=== PATIENT | male | born 1940 | race Caucasian/White ===

== ENCOUNTER 2020-08-17 07:36 | Outpatient (REF) | payer MEDICARE, SELFPAY ==
[2020-08-17 07:44] VITALS: BP 191/79; PULSE 68; RESP 18; TEMP 36.4; O2SAT 93
[2020-08-17 07:45] VITALS: BMI 28.3
--- NOTE | 2020-08-17 08:24 | MHC.SHP ---
Pre-Procedural Eval Section A The patient is an INPATIENT: No Changes since office visit: No Cold of Flu in the past 2 weeks, No New Medical Problems, No Changes in Medication and No Patient answered all questions The History & Physical has been completed within 30 days and I have reviewed it.: Yes Section B Chief Complaint: prostate ca Allergies: Allergies Allergy/AdvReac Type Severity Reaction Status Date / Time pneumococcal vaccine Allergy Unknown RASH Unverified 06/23/20 15:05 [PNEUMOCOCCAL VACCINE] pneumonia injection Allergy Unknown redness on Uncoded 03/24/20 00:00 the skin pneumonia shot Allergy Unknown Uncoded 11/03/19 00:00 Terbinafine Allergy Unknown Uncoded 11/03/19 00:00 Plan Patient has been examined and remains a candidate for the planned procedure
--- NOTE | 2020-08-17 08:25 | W.PM.OPN ---
Operative Note Operative Note Narrative: PreOperative Diagnosis: Prostate Cancer Post Operative Diagnosis: Prostate Cancer Procedure: TRUS guided nerve block TRUS guided Gold see marker placement Surgeon: Dr Catarino Gottlieb Anesthesia: Local Indications for procedure: Prostate cancer Procedure: After informed consent patient placed left lateral down position Abx given and confirmed Lubrication placed Probe placed 10 cc lidocaine split base and apex placed 3 Gold seed placed 2 on right 1 on left procedure tolerated well No pathology
[2020-08-17 08:31] VITALS: BP 151/61; PULSE 64; RESP 18; O2SAT 96
--- NOTE | 2020-08-17 08:37 | PC.NURSE ---
[employer]. [id number]. ref [id number]. exp date 2023-10-06. gold seeds.
== END 2020-08-17 07:37 | disposition home or self-care (01) ==
LOC: HO.MS 07:36
PROVIDERS: PCP Internal Medicine; Visit Provider Urology
PROC: (CPT 55876; principal; 2020-08-17 08:00)
DX: C61 Malignant neoplasm of prostate (principal); Z88.7 Allergy status to serum and vaccine; Z88.8 Allergy status to other drugs, medicaments and biological substances
CPT/HCPCS: 55876; 76942; A4648

== ENCOUNTER 2020-08-22 08:26 | Outpatient (REF) | payer MEDICARE, SELFPAY ==
[2020-08-22 11:52] LABS: Alanine Aminotransferase 15 U/L (0-40); Albumin Level 3.9 g/dL (3.5-5.0); Alkaline Phosphatase 79 U/L (39-117); Anion Gap 13 (12-20); Aspartate Amino Transferase 20 U/L (5-37); Bilirubin Total 0.7 mg/dL (0.0-1.0); Blood Urea Nitrogen 49 mg/dL (9-16); Calcium 8.9 mg/dL (8.4-10.2); Carbon Dioxide 32 mmol/L (22-29); Chloride 97 mmol/L (96-108); Estimated Glomerular Filt Rate 39; Glucose Fasting 85 mg/dL (60-99); Magnesium 2.2 mg/dL (1.6-2.6); Potassium 4.7 mmol/l (3.3-5.1); Sodium 137 mmol/L (135-145); Total Protein 6.5 g/dL (6.5-8.0)
== END 2020-08-22 08:27 | disposition home or self-care (01) ==
LOC: HO.HMGCLDS 08:26
PROVIDERS: PCP Internal Medicine; Visit Provider Internal Medicine
DX: R25.2 Cramp and spasm (principal)
CPT/HCPCS: 80053; 83735

== ENCOUNTER → 2020-09-07 10:47 | Outpatient (BNVA) | payer MEDICARE, SELFPAY | PROVIDERS: PCP Internal Medicine; Referring Provider Internal Medicine; Visit Provider Internal Medicine Pulmonary Disease | DX: J44.9 Chronic obstructive pulmonary disease, unspecified (principal); R91.8 Other nonspecific abnormal finding of lung field | CPT/HCPCS: Q3014 ==

== ENCOUNTER 2020-10-10 10:54 | Outpatient (REF) | payer MEDICARE, SELFPAY ==
[2020-10-10 15:02] LABS: Prostate Specific Antigen 0.25 ng/mL (<0.05-4.0)
== END 2020-10-10 10:55 | disposition home or self-care (01) ==
LOC: HO.HMGCLDS 10:54
PROVIDERS: Internal Medicine; PCP Internal Medicine; Visit Provider Urology
DX: Z20.822 Contact with and (suspected) exposure to COVID-19 (principal); C61 Malignant neoplasm of prostate
CPT/HCPCS: 36415; 84153; C9803; U0003

== ENCOUNTER → 2020-10-21 15:33 | Outpatient (BNVA) | payer MEDICARE, SELFPAY | PROVIDERS: PCP Internal Medicine; Visit Provider Urology | DX: C61 Malignant neoplasm of prostate (principal) | CPT/HCPCS: 96402; J9217 ==

== ENCOUNTER 2020-10-25 09:46 | Outpatient (REF) | payer MEDICARE, SELFPAY ==
--- NOTE | 2020-10-25 09:50 | XR_ITS ---
EXAMINATION: XR KNEE, LEFT CLINICAL INFORMATION: Pain COMPARISON: None TECHNIQUE: Four views of the left knee. FINDINGS: Bone alignment is normal. No fracture or dislocation is seen. The joint spaces are normal. There is no joint effusion. There are osteophytes at the quadriceps tendon insertion, patellar tendon origin and patellar tendon insertion. There is evidence of atherosclerotic disease. XR/XR knee LT 4V IMPRESSION: Mild degenerative changes with patellar and quadriceps tendon and osteophytes and atherosclerotic disease.
== END 2020-10-25 09:47 | disposition home or self-care (01) ==
LOC: HO.HMGCX 09:46
PROVIDERS: PCP Internal Medicine; Visit Provider Nurse Practitioner Family
DX: M25.562 Pain in left knee (principal); M71.9 Bursopathy, unspecified
CPT/HCPCS: 73564

== ENCOUNTER → 2020-11-17 14:29 | Outpatient (BNVA) | payer MEDICARE, SELFPAY | PROVIDERS: PCP Internal Medicine; Visit Provider Urology | DX: R30.9 Painful micturition, unspecified (principal) | CPT/HCPCS: 51798; 81002; 99212 ==

== ENCOUNTER 2020-12-13 10:41 | Outpatient (REF) | payer MEDICARE, SELFPAY ==
--- NOTE | ~2020-12-13 | CT_ITS ---
EXAMINATION: CT CHEST WITHOUT CONTRAST CLINICAL INFORMATION: Previous pulmonary nodule and other abnormal pulmonary findings, follow-up. COMPARISON: Chest CT scan dated 06/15/2020 and 01/26/2019. TECHNIQUE: Multidetector volumetric CT imaging of the chest was done. Axial MIP volume rendering provided. Sagittal and coronal reformatted images were obtained. This CT examination was performed using dose optimization techniques as appropriate, variously including the following: *Automated exposure control *Adjustment of mA and/or kV according to patient size (this includes techniques or standardized protocols for targeted exams where dose is matched to indication/reason for exam; i.e. extremities or head) *Use of iterative reconstruction technique DLP: 175 mGy-cm FINDINGS: LUNGS/PLEURA/AIRWAYS: Mild upper lobe predominant centrilobular and paraseptal emphysema is again seen without significant change. Several scattered nodules are again seen without significant change. A employment program representative nodule laterally in the right upper lobe measures 0.4 cm (image 156, series 5). A nodule anteriorly in the left upper lobe measures 0.4 cm (image 197, series 5). A groundglass nodule anteriorly in the right upper lobe is not significantly changed measuring 0.5 cm (image 335, series 5). A more amorphous groundglass opacity anteriorly in the right upper lobe is not significantly changed (image 301, series 5). Mild linear atelectasis versus scarring in the right middle lobe, lingula and lung bases is again seen. Dependent opacities in the right lower lobe have decreased. There are no pleural effusions. The airways are patent. MEDIASTINUM: The thyroid gland is unremarkable. Mild to moderate atherosclerosis is seen in the thoracic aorta without aneurysmal dilatation or change. Moderate coronary artery calcifications. No pericardial effusion. No mediastinal or hilar lymphadenopathy. AXILLA: No lymphadenopathy. UPPER ABDOMEN: Partial visualization of fluid attenuation exophytic cyst posteriorly in the interpolar right kidney. OSSEOUS STRUCTURES: Mild to moderate multilevel degenerative changes are seen thoracolumbar spine without suspicious abnormality or change. CT/CT chest wo con IMPRESSION: 1. Mild upper lobe predominant centrilobular/paraseptal emphysema without significant change. There has been interval decrease in the posterior right lower lobe atelectasis/infiltrates. Other findings including nodules in probable chronic changes have not significantly changed. Following Fleischner Society guidelines, imaging follow-up is recommended as clinically indicated.
== END 2020-12-13 10:42 | disposition home or self-care (01) ==
LOC: HO.CT 10:41
PROVIDERS: PCP Internal Medicine; Visit Provider Internal Medicine
DX: R91.8 Other nonspecific abnormal finding of lung field (principal)
CPT/HCPCS: 71250

== ENCOUNTER → 2020-12-26 11:16 | Outpatient (BNVA) | payer MEDICARE, SELFPAY | PROVIDERS: PCP Internal Medicine; Visit Provider Internal Medicine Cardiovascular Disease | DX: I10 Essential (primary) hypertension (principal); Z51.81 Encounter for therapeutic drug level monitoring | CPT/HCPCS: 93005; 99212 ==

== ENCOUNTER → 2020-12-27 09:21 | Outpatient (BNVA) | payer MEDICARE, SELFPAY | PROVIDERS: PCP Internal Medicine; Visit Provider Internal Medicine Pulmonary Disease | DX: J44.9 Chronic obstructive pulmonary disease, unspecified (principal); R91.8 Other nonspecific abnormal finding of lung field; Z87.891 Personal history of nicotine dependence | CPT/HCPCS: 99212 ==

== ENCOUNTER 2021-01-16 09:51 | Outpatient (REF) | payer MEDICARE, SELFPAY ==
[2021-01-16 11:26] LABS: Prostate Specific Antigen < 0.05 ng/mL (<0.05-4.0)
== END 2021-01-16 09:52 | disposition home or self-care (01) ==
LOC: HO.LAB 09:51
PROVIDERS: PCP Internal Medicine; Visit Provider Urology
DX: Z12.5 Encounter for screening for malignant neoplasm of prostate (principal); C61 Malignant neoplasm of prostate
CPT/HCPCS: 36415; 84153

== ENCOUNTER → 2021-01-19 15:38 | Outpatient (BNVA) | payer MEDICARE, SELFPAY | PROVIDERS: PCP Internal Medicine; Visit Provider Urology | DX: C61 Malignant neoplasm of prostate (principal) | CPT/HCPCS: 99212 ==

== ENCOUNTER 2021-01-31 10:55 | Outpatient (REF) | payer MEDICARE, SELFPAY ==
[2021-01-31 11:33] LABS: MANUAL DIFF FLAG NO
[2021-01-31 12:14] LABS: Basophils Absolute Auto 0.1 X10*3/uL (0.0-0.2); Basophils Percent Auto 0.7 % (0-2); Eosinophils Absolute Auto 0.8 X10*3/uL (0.0-0.4); Eosinophils Percent Auto 7.7 % (0-4); Hematocrit 34.8 % (42-52); Hemoglobin 11.2 g/dl (14.0-18.0); Imm Gran Abs Auto 0.02 X10*3/uL (0.00-0.03); Imm Gran Pct Auto 0.2 % (0.0-0.4); Lymphocytes Absolute Auto 2.8 X10*3/uL (1.2-4.9); Lymphocytes Percent Auto 28.5 % (20-40); Mean Corpuscular HGB Conc 32.2 g/dl (31.0-36.0); Mean Corpuscular Hemoglobin 32.5 pg (27.0-33.0); Mean Corpuscular Volume 100.9 fL (80-98); Mean Platelet Volume 11.3 fL (9.4-12.4); Monocytes Percent Auto 10.4 % (2-11); Neutrophils Absolute Auto 5.1 X10*3/uL (2.0-8.3); Neutrophils Percent Auto 52.5 % (45-73); Platelet Count 248 X10*3/uL (160-400); Red Blood Count 3.45 X10*6/uL (4.60-5.80); Red Cell Distribution Width 13.2 % (11.0-16.0); White Blood Count 9.7 X10*3/uL (4.8-10.8)
[2021-01-31 12:28] LABS: Glucose Urine UA NEG (NEG); Leukocyte Esterase Urine NEG (NEG); Nitrite Urine NEG (NEG); PH 6.5 (5.0-8.0); Urine Blood NEG (NEG); Urine Ketones NEG (NEG); Urine Protein TRACE MG/DL (NEG-TRACE)
[2021-01-31 12:30] LABS: Appearance Urine CLEAR; Color Urine YELLOW
[2021-01-31 12:50] LABS: Alanine Aminotransferase 33 U/L (0-40); Alkaline Phosphatase 80 U/L (39-117); Anion Gap 14 (12-20); Aspartate Amino Transferase 26 U/L (5-37); Bilirubin Total 0.5 mg/dL (0.0-1.0); Blood Urea Nitrogen 39 mg/dL (9-16); Calcium 9.2 mg/dL (8.4-10.2); Carbon Dioxide 32 mmol/L (22-29); Chloride 103 mmol/L (96-108); Cholesterol 187 mg/dL; Estimated Glomerular Filt Rate 42; Glucose Fasting 92 mg/dL (60-99); HDL Cholesterol 53 mg/dL; LDL Cholesterol Calculated 113 mg/dl; Potassium 4.5 mmol/L (3.3-5.1); Sodium 144 mmol/L (135-145); Total Protein 6.6 g/dL (6.5-8.0); Triglycerides 107 mg/dL
[2021-01-31 13:16] LABS: PSA,Total (Free>4and<10) < 0.05 ng/mL (0.00-4.00)
== END 2021-01-31 10:56 | disposition home or self-care (01) ==
LOC: HO.LNP 10:55
PROVIDERS: PCP Internal Medicine; Visit Provider Internal Medicine
DX: Z00.00 Encounter for general adult medical examination without abnormal findings (principal); I10 Essential (primary) hypertension; E78.00 Pure hypercholesterolemia, unspecified
CPT/HCPCS: 80053; 80061; 81003; 84153; 85025

== ENCOUNTER 2021-02-09 10:39 | Outpatient (REF) | payer MEDICARE, SELFPAY ==
[2021-02-09 11:47] LABS: Iron 92 mcg/dL (45-160); Percent Iron Saturation 24 % (15-50); Total Iron Binding Capacity 385 mcg/dL (228-428); Unsaturated Iron Binding 293 ug/dL
[2021-02-09 13:48] LABS: Folate 8.7 ng/mL (> or = 4.0); Vitamin B12 258 pg/mL (200-900)
== END 2021-02-09 10:40 | disposition home or self-care (01) ==
LOC: HO.LNP 10:39
PROVIDERS: Visit Provider Internal Medicine
DX: D50.9 Iron deficiency anemia, unspecified (principal)
CPT/HCPCS: 82607; 82746; 83540

== ENCOUNTER 2021-03-03 16:00 | Outpatient (REF) | payer MEDICARE, SELFPAY ==
[2021-03-03 17:06] LABS: Folate 7.1 ng/mL (> or = 4.0); Vitamin B12 253 pg/mL (200-900)
== END 2021-03-03 16:01 | disposition home or self-care (01) ==
LOC: HO.LNP 16:00
PROVIDERS: Visit Provider Internal Medicine
DX: G60.9 Hereditary and idiopathic neuropathy, unspecified (principal)
CPT/HCPCS: 82607; 82746

== ENCOUNTER 2021-03-24 10:05 | Outpatient (REF) | payer MEDICARE, SELFPAY ==
[2021-03-24 11:03] LABS: Blood Urea Nitrogen 17 mg/dL (9-16); Estimated Glomerular Filt Rate 55
== END 2021-03-24 10:06 | disposition home or self-care (01) ==
LOC: HO.LNP 10:05
PROVIDERS: Visit Provider Internal Medicine
DX: N18.30 Chronic kidney disease, stage 3 unspecified (principal)
CPT/HCPCS: 82565; 84520

== ENCOUNTER 2021-04-08 19:09 | Inpatient (IN) | payer MEDICARE, SELFPAY ==
[2021-04-08] VITALS (14 sets, daily range): BP systolic 188–242; BP diastolic 68–111; PULSE 51–78; RESP 17–23; TEMP 36.3; O2SAT 91–94; BMI 29.0
--- NOTE | 2021-04-08 | ECG_ITS ---
Test Reason : HIGH BP Blood Pressure : / mmHG Vent. Rate : 072 BPM Atrial Rate : 072 BPM P-R Int : 170 ms QRS Dur : 086 ms QT Int : 362 ms P-R-T Axes : 082 059 091 degrees QTc Int : 396 ms Normal sinus rhythm with sinus arrhythmia Nonspecific ST and T wave abnormality Abnormal ECG When compared with ECG of 14-MAR-2004 10:00, Nonspecific T wave abnormality now evident in Lateral leads Referred By: Generic ED Physician Electronically Signed By:SHAGUFTA FRANCO MD
--- NOTE | ~2021-04-08 | CT_ITS ---
EXAMINATION: CT HEAD WITHOUT CONTRAST CLINICAL INFORMATION: Severe headache with hypertension. COMPARISON: None. TECHNIQUE: Multidetector CT examination of the head is performed without contrast. This CT examination was performed using dose optimization techniques as appropriate, variously including the following: *Automated exposure control *Adjustment of mA and/or kV according to patient size (this includes techniques or standardized protocols for targeted exams where dose is matched to indication/reason for exam; i.e. extremities or head) *Use of iterative reconstruction technique DLP: 735 mGy-cm FINDINGS: There is no evidence of a recent intracranial hemorrhage or extra-axial collection. The midline structures are nondisplaced. The ventricles, cisterns, and sulci are within normal limits. There is no evidence of an intra-axial mass. There are no suspicious focal areas of abnormal brain attenuation. The pitt-white interface is within normal limits. There is no evidence of acute territorial infarct. There is extensive patchy nonspecific white matter low attenuation. This can be seen with small vessel disease. There is inspissated material within the sphenoid sinus. No fluid. CT/CT head/brain wo con IMPRESSION: 1. There is no evidence of a recent intracranial hemorrhage. 2. No acute infarct. 3. Extensive white matter disease possibly microangiopathy.
--- NOTE | ~2021-04-08 | US_ITS ---
EXAMINATION: US VENOUS ULTRASOUND WITH DOPPLER LOWER EXTREMITY, BILATERAL CLINICAL INFORMATION: Pain COMPARISON: Right leg venous ultrasound August 2018 TECHNIQUE: Ultrasound of the deep veins is performed from the hip to the calf with compression sonography and color and pulse Doppler assessment. Spectral analysis with color-flow imaging is performed. Exam is limited due to patient movement. Pain FINDINGS: RIGHT: There is normal venous compression and respiratory variation and augmented flow. The visualized common femoral vein, superficial femoral vein, profunda femoral vein, popliteal vein, and the trifurcation region shows no evidence of deep venous thrombosis. There is no significant popliteal fossa cyst. LEFT: There is normal venous compression and respiratory variation and augmented flow. The visualized common femoral vein, superficial femoral vein, profunda femoral vein, popliteal vein, and the trifurcation region shows no evidence of deep venous thrombosis. There is no significant popliteal fossa cyst. US/US venous duplex LE BI IMPRESSION: Limited exam. No DVT demonstrated in the bilateral lower extremity.
--- NOTE | 2021-04-08 19:39 | ED.GENADULT ---
HPI - General Adult General Chief complaint: General Medical Stated complaint: Migraine Time Seen by Provider: 04/08/21 19:38 Source: patient Mode of arrival: ambulatory Limitations: no limitations History of Present Illness HPI narrative: patient has history of hypertension, COPD, prostate cancer status post radiation was on lisinopril /hydrochlorothiazide for blood pressure for a long time which was stopped 2 days ago by his PCP for some drug interactions. Comes comes here for severe headache since yesterday no light sensitivity+ nausea no vomiting headache is mostly localized in the frontal part no chest pain no shortness of breath, on arrival patient's blood pressure was 242/111 pulse rate 77 Related Data Home Medications Medication Instructions Recorded Confirmed albuterol sulfate 90 mcg/actuation 2 puff PO Q2H PRN 09/07/20 03/08/21 aerosol inhaler oxybutynin chloride 5 mg 5 mg PO BID 09/07/20 03/08/21 tablet,extended release 24 hr tamsulosin 0.4 mg capsule mg PO 09/07/20 03/08/21 oxybutynin chloride 5 mg tablet 5 mg PO BID 01/19/21 03/08/21 Previous Rx's Medication Instructions Recorded atorvastatin 40 mg tablet 40 mg PO DAILY #90 tab 07/22/20 umeclidinium 62.5 mcg-vilanterol 1 inh INHALATION DAILY 30 Days #1 09/07/20 25 mcg/actuation powdr for ea inhalation lisinopril 20 1 tab PO DAILY #30 tab 09/27/20 mg-hydrochlorothiazide 12.5 mg tablet fluticasone 250 mcg-salmeterol 50 1 ea PO BID #60 ea 10/18/20 mcg/dose blistr powdr for inhalation finasteride 5 mg tablet 5 mg PO DAILY 90 Days #90 tab 10/21/20 bicalutamide 50 mg tablet 50 mg PO DAILY 90 Days #90 tab 10/24/20 sulfamethoxazole 800 1 tab PO Q12H 10 Days #20 tab 10/25/20 mg-trimethoprim 160 mg tablet furosemide 20 mg tablet 20 mg PO DAILY 90 Days #90 tab 12/07/20 amoxicillin 875 mg-potassium 1 tab PO BID #14 tab 03/08/21 clavulanate 125 mg tablet Allergies Allergy/AdvReac Type Severity Reaction Status Date / Time pneumococcal vaccine Allergy Intermediate RASH Verified 04/08/21 19:12 [PNEUMOCOCCAL VACCINE] Review of Systems Review of Systems: Constitutional : No Weight loss, No Fever, No Chills ENT/Mouth : No sore throat, No Rhinorrhea Eyes: No Eye Pain, No Swelling Cardiovascular : No Chest Pain, no palpitations Respiratory : No Cough, No Sputum, no shortness of breath Gastrointestinal :+ Nausea, No Vomiting, No Diarrhea, No abdominal Pain, no black stools Genitourinary : No Dysuria, No Urinary Frequency Musculoskeletal : No joint pain, No Myalgias, No Joint Swelling Skin : No Skin Lesions, No rash Neuro : No Weakness, No Numbness, No Dizziness, +Headache Psych : No Anxiety/Panic, No Depression Heme/Lymph: No Bruising, No Lymphadenopathy Endocrine : No Polyuria, No Polydipsia All other systems reviewed and are negative [facility] Past Medical History Medical History Gout High cholesterol Hypertension Prostate cancer Social History Social History Alcohol intake: current Alcohol intake frequency: 3 or more drinks per day Alcohol type: wine Patient Tobacco Use Status: Former Tobacco user Years Smoked: 60 yrs Smoked in Last 30 Days: No Use of substances other than those prescribed or required for medical reasons: No Advance Directives: No Advance Directives Information Provided: No Physical Exam Vital Signs: Vital Signs: Last Vital Signs Temp 97.4 F 04/08/21 19:12 Pulse 52 04/09/21 00:25 Resp 16 04/09/21 00:25 BP 169/63 H 04/09/21 00:25 Pulse Ox 96 04/09/21 00:25 Body Mass Index 29.0 Appearance: Alert. Oriented X3. No acute distress. Eyes: PERRLA, No Nystagmus ENT: Pharynx normal. Oral Mucosa moist Neck: Normal inspection. Neck supple. CVS: Normal heart rate and rhythm. Pulses normal. Respiratory: No respiratory distress. Equal air entry bilateral, no wheezing/rales/rhonchi Abdomen: Soft and nontender. Bowel sounds are present, no mass palpable, no CVA tenderness Skin: Skin warm and dry. Normal skin color. Normal skin turgor. Extremities: No lower extremity edema. No calf tenderness Neuro: Oriented X 3. No motor deficit. No sensory deficit.No cerebellar signs , cranial nerves II-XII intact Medical Decision Making MDM Narrative Medical decision making narrative: patient's history of headaches for last 5 years after a cervical injury came here for increased headache for last 2 days noticed to have high blood pressure. CT scan of the head is negative for bleed patient feeling better after IV labetalol and morphine now complaining of chest pain which is more on the right side with history of high x-ray dated hypertension and chest pain will admit the patient for observation at this time patient denies any headache EKG without any ischemic changes initial troponin slightly elevated to 51.2. repeat trop increased to 138 which significant delta change patient denies any chest pain delta change in troponin is likely because of left ventricular strain and elevated blood pressure no acute ischemia on the EKG Lab Data Lab results reviewed: Yes I reviewed the patient's lab results. Result diagrams: 04/08/21 20:10 04/08/21 20:10 Labs: Lab Results 04/08/21 04/08/21 04/08/21 Range/Units 20:10 20:10 20:10 WBC 12.0 H (4.8-10.8) X10*3/uL RBC 3.96 L (4.60-5.80) X10*6/uL Hgb 12.9 L (14.0-18.0) g/dl Hct 37.7 L (42-52) % MCV 95.2 (80-98) fL MCH 32.6 (27.0-33.0) pg MCHC 34.2 (31.0-36.0) g/dl RDW 12.1 (11.0-16.0) % Plt Count 283 (160-400) X10*3/uL MPV 9.9 (9.4-12.4) fL Immature Gran % (Auto) 0.3 (0.0-0.4) % Neut % (Auto) 65.4 (45-73) % Lymph % (Auto) 23.9 (20-40) % [place] % (Auto) 9.3 (2-11) % Eos % (Auto) 0.7 (0-4) % Baso % (Auto) 0.4 (0-2) % Lymph # (Auto) 2.9 (1.2-4.9) X10*3/uL [place] # (Auto) 1.1 (0.1-1.2) X10*3/uL Eos # (Auto) 0.1 (0.0-0.4) X10*3/uL Baso # (Auto) 0.1 (0.0-0.2) X10*3/uL Abs Immat Gran (auto) 0.04 H (0.00-0.03) X10*3/uL Absolute Neuts (auto) 7.9 (2.0-8.3) X10*3/uL Absolute Nucleated RBC 0.000 (0.0-0.012) X10*3/uL Nucleated RBC % (auto) 0.0 (0.0-0.2) /100WBC PT 11.0 (9.9-13.0) SEC INR 1.0 (0.9-1.1) APTT 28.1 (24.1-38.0) SEC Sodium 137 (135-145) mmol/L Potassium 4.5 (3.3-5.1) mmol/L Chloride 100 (96-108) mmol/L Carbon Dioxide 26 (22-29) mmol/L Anion Gap 16 (12-20) BUN 16 (9-16) mg/dL Creatinine 1.11 (0.5-1.4) mg/dL Estim Creat Clear Calc 55.9 Estimated GFR > 60 Random Glucose 123 H (60-115) mg/dL Calcium 9.7 (8.4-10.2) mg/dL Troponin I High Sens (<3.5-35.0) ng/L COVID-19 (JENNA) (Negative) COVID-19 Clin Com 04/08/21 04/09/21 04/09/21 Range/Units 20:10 00:14 00:46 WBC (4.8-10.8) X10*3/uL RBC (4.60-5.80) X10*6/uL Hgb (14.0-18.0) g/dl Hct (42-52) % MCV (80-98) fL MCH (27.0-33.0) pg MCHC (31.0-36.0) g/dl RDW (11.0-16.0) % Plt Count (160-400) X10*3/uL MPV (9.4-12.4) fL Immature Gran % (Auto) (0.0-0.4) % Neut % (Auto) (45-73) % Lymph % (Auto) (20-40) % [place] % (Auto) (2-11) % Eos % (Auto) (0-4) % Baso % (Auto) (0-2) % Lymph # (Auto) (1.2-4.9) X10*3/uL [place] # (Auto) (0.1-1.2) X10*3/uL Eos # (Auto) (0.0-0.4) X10*3/uL Baso # (Auto) (0.0-0.2) X10*3/uL Abs Immat Gran (auto) (0.00-0.03) X10*3/uL Absolute Neuts (auto) (2.0-8.3) X10*3/uL Absolute Nucleated RBC (0.0-0.012) X10*3/uL Nucleated RBC % (auto) (0.0-0.2) /100WBC PT (9.9-13.0) SEC INR (0.9-1.1) APTT (24.1-38.0) SEC Sodium (135-145) mmol/L Potassium (3.3-5.1) mmol/L Chloride (96-108) mmol/L Carbon Dioxide (22-29) mmol/L Anion Gap (12-20) BUN (9-16) mg/dL Creatinine (0.5-1.4) mg/dL Estim Creat Clear Calc Estimated GFR Random Glucose (60-115) mg/dL Calcium (8.4-10.2) mg/dL Troponin I High Sens 51.2 H* 138.4 H* D (<3.5-35.0) ng/L COVID-19 (JENNA) Negative (Negative) COVID-19 Clin Com See Note ECG Data Attestation: I personally reviewed and interpreted this ECG as follows: Interpretation: normal sinus rhythm with heart rate 72 beats per minute normal intervals normal axis no acute ST T wave changes Critical Care Time Critical Care Time Critical Care Time: Yes Total Critical Care Time: 40 Attestation: I spent 40 minutes of critical care, with interventions, assessments, speaking to patient, consultants, and family. Discharge Plan Discharge Clinical Impression: Accelerated essential hypertension, Non-STEMI (non-ST elevated myocardial infarction) Patient Disposition: Admitted As Inpatient
--- NOTE | 2021-04-08 19:44 | ECG_ITS ---
Test Reason : CP Blood Pressure : / mmHG Vent. Rate : 055 BPM Atrial Rate : 055 BPM P-R Int : 168 ms QRS Dur : 086 ms QT Int : 410 ms P-R-T Axes : 082 057 091 degrees QTc Int : 392 ms Sinus bradycardia T wave abnormality, consider lateral ischemia Abnormal ECG When compared with ECG of 08-APR-2021 19:39, No significant change was found Referred By: Romain Montes De Oca Electronically Signed By:SHAGUFTA FRANCO MD
[2021-04-08] MEDS: Labetalol HCL 100 MG/20 ML VIAL 20 MG IVPUSH (20:14)
[2021-04-08 20:18] LABS: MANUAL DIFF FLAG NO
[2021-04-08 20:21] LABS: Basophils Absolute Auto 0.1 X10*3/uL (0.0-0.2); Basophils Percent Auto 0.4 % (0-2); Eosinophils Absolute Auto 0.1 X10*3/uL (0.0-0.4); Eosinophils Percent Auto 0.7 % (0-4); Hematocrit 37.7 % (42-52); Hemoglobin 12.9 g/dl (14.0-18.0); Imm Gran Abs Auto 0.04 X10*3/uL (0.00-0.03); Imm Gran Pct Auto 0.3 % (0.0-0.4); Lymphocytes Absolute Auto 2.9 X10*3/uL (1.2-4.9); Lymphocytes Percent Auto 23.9 % (20-40); Mean Corpuscular HGB Conc 34.2 g/dl (31.0-36.0); Mean Corpuscular Hemoglobin 32.6 pg (27.0-33.0); Mean Corpuscular Volume 95.2 fL (80-98); Mean Platelet Volume 9.9 fL (9.4-12.4); Monocytes Absolute Auto 1.1 X10*3/uL (0.1-1.2); Monocytes Percent Auto 9.3 % (2-11); Neutrophils Absolute Auto 7.9 X10*3/uL (2.0-8.3); Neutrophils Percent Auto 65.4 % (45-73); Platelet Count 283 X10*3/uL (160-400); Red Blood Count 3.96 X10*6/uL (4.60-5.80); Red Cell Distribution Width 12.1 % (11.0-16.0)
[2021-04-08 20:34] LABS: Partial Thromboplastin Time 28.1 SEC (24.1-38.0)
[2021-04-08 20:56] LABS: Anion Gap 16 (12-20); Blood Urea Nitrogen 16 mg/dL (9-16); Calcium 9.7 mg/dL (8.4-10.2); Carbon Dioxide 26 mmol/L (22-29); Chloride 100 mmol/L (96-108); Creatinine Clr Calc Pharmacy 55.9; Estimated Glomerular Filt Rate > 60; Glucose Random 123 mg/dL (60-115); Potassium 4.5 mmol/L (3.3-5.1); Sodium 137 mmol/L (135-145)
--- NOTE | 2021-04-08 21:22 | PC.NURSE ---
pt had one ekg and now he has chest heavieness. dr carmona at bedside. pt headache 01/14. bp improving, 189/68
[2021-04-08] MEDS: Morphine Sulfate 2 MG/ML CARTRIDGE IVPUSH (21:36)
[2021-04-08] MEDS: Nitroglycerin 2 % Oint 1 GM Packet 1 INCH TRANSDERMA (22:07)
[2021-04-08] MEDS: Aspirin Enteric Coated 81 MG TABLET.DR 162 MG PO (22:07)
[2021-04-08] MEDS: lisinopriL 20 MG TABLET PO (22:11)
[2021-04-08 22:19] LABS: Troponin-I High Sensitivity 51.2 ng/L (<3.5-35.0)
--- NOTE | 2021-04-08 23:24 | PM.IMHP ---
History of Present Illness Date of Service: 04/08/21 Chief Complaint: headache this 80-year-old male with past medical history of HTN, NSTEMI, COPD, prostate cancer history stroke complaining of headache. Patient reports that the headache started 2 days ago, associated with some blurry vision, with initially no chest pain or palpitations abdominal pain . Has dry heaves and nausea with no vomiting. He has no diarrhea constipation, no urine symptoms and no lower extremity edema. however while in the ED patient did develop midsternal chest pain the was is at of 10, nonradiating, pressure-like, resolved spontaneously. Reports urinary frequency with no urgency or dysuria. No fever or chills. No weakness numbness or tingling in any of his extremities. of note patient was recently started on Bactrim for paronychia and due to interaction with lisinopril he was taken off his lisinopril for 2 weeks. Patient reports that he has not been taking his lisinopril for this on patient also reports that he is being treated for gout at this time and has 3 days of treatment left On arrival to the ED patient was found to have a a temp of 97.4?, heart rate of 77, respiratory rate of 18, blood pressure of 242/111, satting 94% on room air labs on arrival are significant for WBC count of 12.0, hemoglobin of 12.9, troponin of 51 that increased to 138.4, otherwise labs un remarkable EKG shows normal sinus rhythm with sinus arrhythmia, nonspecific ST T wave abnormality head CT showed no evidence of recent intracranial hemorrhage, no acute infarct, extensive white matter disease possibly microangiopathy patient received aspirin for his chest pain, labetalol and nitroglycerin patch in the ED with blood pressure improving patient will be admitted for further management Review of Systems Review of Systems: Yes all other systems are reviewed and are negative [facility] Medical History (Updated 04/09/21 @ 06:49 by Brandon Wright MD) COPD (chronic obstructive pulmonary disease) Essential hypertension Gout High cholesterol Hypertension Prostate cancer Pulmonary nodules Social History Alcohol intake: current Alcohol intake frequency: 3 or more drinks per day Alcohol type: wine Patient Tobacco Use Status: Former Tobacco user Quit Date: 2015 Years Smoked: 60 yrs Smoked in Last 30 Days: No Second Hand Smoke Exposure: No Use of substances other than those prescribed or required for medical reasons: No Advance Directives: No Advance Directives Information Provided: No Meds Allergies Allergy/AdvReac Type Severity Reaction Status Date / Time pneumococcal vaccine Allergy Intermediate RASH Verified 04/08/21 19:12 [PNEUMOCOCCAL VACCINE] Home Medications Medication Instructions Recorded Confirmed Last Taken Type albuterol sulfate 90 mcg/actuation 2 puff PO Q2H PRN 09/07/20 04/09/21 Unknown History aerosol inhaler oxybutynin chloride 5 mg 5 mg PO DAILY 09/07/20 04/09/21 Unknown History tablet,extended release 24 hr tamsulosin 0.4 mg capsule 0.4 mg PO BID 09/07/20 04/09/21 Unknown History Physical Exam Vital Signs and Narrative: Vital Signs: Last Vital Signs Temp 97.4 F 04/08/21 19:12 Pulse 55 04/08/21 22:34 Resp 17 04/08/21 22:34 BP 188/68 H 04/08/21 22:34 Pulse Ox 91 L 04/08/21 22:34 Body Mass Index 29.0 Const: General: cooperative and no acute distress Orientation/consciousness: patient oriented x3 Eyes: General: appearance normal, both eyes and all related structures Resp: Effort & Inspection: normal respiratory effort and able to speak in complete sentences Cardio: Rate: regular rate Rhythm: regular rhythm GI: Palpation (GI): Soft to palpation Auscultation: normal bowel sounds Skin: General skin exam: no rashes or lesions noted Neuro: General: patient oriented x3 Cognition (Neuro): normal cognition Extrem: General: Yes normal to inspection and Yes no pedal edema Results Labs CBC and Chem 7: 04/09/21 04:23 04/09/21 04:23 Labs: Laboratory Results - last 24 hr 04/08/21 04/08/21 04/08/21 20:10 20:10 20:10 MCV 95.2 MCH 32.6 MCHC 34.2 RDW 12.1 Plt Count 283 MPV 9.9 Immature Gran % (Auto) 0.3 Neut % (Auto) 65.4 Lymph % (Auto) 23.9 [place] % (Auto) 9.3 Eos % (Auto) 0.7 Baso % (Auto) 0.4 Lymph # (Auto) 2.9 [place] # (Auto) 1.1 Eos # (Auto) 0.1 Baso # (Auto) 0.1 Abs Immat Gran (auto) 0.04 H Absolute Neuts (auto) 7.9 Absolute Nucleated RBC 0.000 Nucleated RBC % (auto) 0.0 PT 11.0 INR 1.0 APTT 28.1 Anion Gap 16 Estim Creat Clear Calc 55.9 Estimated GFR > 60 Random Glucose 123 H Calcium 9.7 Troponin I High Sens 04/08/21 20:10 MCV MCH MCHC RDW Plt Count MPV Immature Gran % (Auto) Neut % (Auto) Lymph % (Auto) [place] % (Auto) Eos % (Auto) Baso % (Auto) Lymph # (Auto) [place] # (Auto) Eos # (Auto) Baso # (Auto) Abs Immat Gran (auto) Absolute Neuts (auto) Absolute Nucleated RBC Nucleated RBC % (auto) PT INR APTT Anion Gap Estim Creat Clear Calc Estimated GFR Random Glucose Calcium Troponin I High Sens 51.2 H* Imaging Radiologist's Impressions: Impressions Head CT 04/08/21 19:44 IMPRESSION: 1. There is no evidence of a recent intracranial hemorrhage. 2. No acute infarct. 3. Extensive white matter disease possibly microangiopathy. Assessment and Plan (1) Hypertensive emergency: Status: Acute (2) Chest pain: Status: Acute (3) Elevated troponin: Status: Acute (4) Headache: Status: Acute 80-year-old male with past medical history of hypertension presents to the hospital with headache. Found to have elevated blood pressure. patient's lisinopril was recently held due to antibiotic interaction # hypertensive emergency - patient has not had medications for 2 weeks - has chest pain, elevated troponin, headache - CT of the head negative - will resume lisinopril - labetalol p.r.n. for blood pressure above 190s systolic # chest pain - no EKG changes - elevated troponin most likely secondary to hypertensive emergency - resolved with aspirin - monitor for any recurrent symptoms # elevated troponin - most likely NSTEMI type 2 in the setting of hypertensive crisis - no EKG changes suggestive of ACS - will obtain echocardiogram - cardiology consulted # headache - secondary to elevated BP - CT negative for any acute abnormality - Tylenol p.r.n. # COPD - not in exacerbation - continue home inhalers # CHF - clinical does not appear to be in exacerbation - continue home Lasix - will obtain BMP DVT prophylaxis: Heparin subQ Quality Stroke Does the patient have a stroke diagnosis?: No VTE Prior VTE?: No VTE Risk Level:: Medical - moderate - high VTE Device Contraindication: Treatment Not Indicated VTE Drug Contraindication: N/A - Med Ordered
[2021-04-09] VITALS (11 sets, daily range): BP systolic 125–187; BP diastolic 48–80; PULSE 48–62; RESP 16–20; TEMP 36–36.8; O2SAT 92–98; BMI 28.7
[2021-04-09] MEDS: Acetaminophen 325 MG TABLET 650 MG PO ×2 (00:53→08:22)
[2021-04-09 00:55] LABS: Troponin-I High Sensitivity 138.4 ng/L (<3.5-35.0)
[2021-04-09 01:16] LABS: COVID-19 Test Negative (Negative)
--- NOTE | 2021-04-09 02:06 | PC.NURSE ---
pt states he is chest pain free, denies nausea or dizziness, heart rate droped to 47 sb. while pt was sleeping.
--- NOTE | 2021-04-09 02:50 | PC.NURSE ---
rn will call back for report she is in with a pt at this time.
[2021-04-09 05:11] LABS: MANUAL DIFF FLAG NO
[2021-04-09] MEDS: Heparin Sodium,Porcine 5,000 UNIT/ML VIAL 5000 UNIT SUBCUT ×2 (05:14→18:25)
[2021-04-09 05:25] LABS: Basophils Percent Auto 0.4 % (0-2); Eosinophils Absolute Auto 0.1 X10*3/uL (0.0-0.4); Hematocrit 35.5 % (42-52); Hemoglobin 11.8 g/dl (14.0-18.0); Imm Gran Abs Auto 0.04 X10*3/uL (0.00-0.03); Imm Gran Pct Auto 0.4 % (0.0-0.4); Lymphocytes Absolute Auto 2.2 X10*3/uL (1.2-4.9); Mean Corpuscular HGB Conc 33.2 g/dl (31.0-36.0); Mean Corpuscular Hemoglobin 32.1 pg (27.0-33.0); Mean Corpuscular Volume 96.5 fL (80-98); Mean Platelet Volume 10.3 fL (9.4-12.4); Monocytes Absolute Auto 1.1 X10*3/uL (0.1-1.2); Monocytes Percent Auto 10.1 % (2-11); Neutrophils Absolute Auto 7.5 X10*3/uL (2.0-8.3); Neutrophils Percent Auto 68.1 % (45-73); Platelet Count 279 X10*3/uL (160-400); Red Blood Count 3.68 X10*6/uL (4.60-5.80); Red Cell Distribution Width 12.2 % (11.0-16.0); White Blood Count 10.9 X10*3/uL (4.8-10.8)
[2021-04-09 05:38] LABS: Anion Gap 12 (12-20); Blood Urea Nitrogen 18 mg/dL (9-16); Calcium 9.5 mg/dL (8.4-10.2); Carbon Dioxide 29 mmol/L (22-29); Chloride 99 mmol/L (96-108); Creatinine Clr Calc Pharmacy 55.6; Estimated Glomerular Filt Rate > 60; Glucose Random 118 mg/dL (60-115); Sodium 136 mmol/L (135-145)
[2021-04-09] MEDS: lisinopriL 20 MG TABLET PO ×2 (08:09→10:43)
[2021-04-09] MEDS: hydroCHLOROthiazide 12.5 MG TABLET PO (08:09)
[2021-04-09] MEDS: Furosemide 20 MG TABLET PO (08:13)
[2021-04-09] MEDS: Atorvastatin Calcium 40 MG TABLET PO (08:13)
[2021-04-09] MEDS: Finasteride 5 MG TABLET PO (08:14)
[2021-04-09] MEDS: Bicalutamide 50 MG TABLET PO (08:14)
[2021-04-09] MEDS: Tamsulosin HCL 0.4 MG CAPSULE PO ×2 (08:14→20:50)
[2021-04-09 08:21] LABS: B Type Natriuretic Peptide 982 pg/mL (<100); Troponin-I High Sensitivity 92.4 ng/L (<3.5-35.0)
[2021-04-09] MEDS: amLODIPine Besylate 5 MG TABLET PO (08:41)
[2021-04-09] MEDS: Butalb/Acetamin/Caff 50/325/40 TABLET 1 TAB PO ×2 (10:13→15:37)
[2021-04-09] MEDS: 0.9 % Sodium Chloride Flush 3 ML SYRINGE IVFLUSH ×3 (10:42→20:51)
--- NOTE | 2021-04-09 12:17 | P.CONCA_ITS ---
History of Present Illness History of Present Illness Date of Service: 04/09/21 Requesting physician: Brandon Wright Consult reason: hypertension and troponin elevation Chief complaint: Hypertensive urgency, ro ACS Narrative: I was asked to see Kalyan in cardiology consultation today for hypertensive emergency and elevated troponin. He is a 80-year-old male says that about 2 weeks ago he was told by his primary care physician to stop his medications due to gout. He presented to the hospital with headaches there was started for couple of days and then subsequently when he came to the Emergency was noted to have markedly elevated blood pressure and subsequently in emergency room developed chest pressure. EKG shows nonspecific changes. Initial troponin was 50s risen to 190. this is suggestive of troponin elevation myocardial inj ury secondary to marked hypertension. Blood pressure is not better optimized but still remains significantly elevated. He did not have any shortness of breath. His headache is improved with medications. He still says he has blurry vision but not sure this is because he does not have his glasses. He does not have any focal neurologic deficits. No orthopnea, PND, leg edema. Review of Systems Constitutional: Constitutional: Reports no additional constitutional comp laints and Reports headache(s) ENT: Reports headache(s) Cardiovascular: Cardiovascular: Reports chest pain, Denies rapid heart rate, Denies pedal edema, Denies leg edema, Denies lightheadedness, Denies Loss of Consciousness and Denies palpitations Respiratory: Respiratory: Reports no additional respiratory complaints Gastrointestinal: Gastrointestinal: Reports no additional gastrointestinal complaints Genitourinary: Genitourinary: Reports no additional male genitourinary complaints Musculoskeletal: Musculoskeletal: Reports no additional musculoskeletal complaints Neurologic: Reports headache(s) and Reports Other visual disturbances Psychiatric: Psychiatric: Reports no additional psychiatric complaints Endocrine: Endocrine: Reports no additional endocrine complaints and Denies palpitations Hematologic/Lymphatic: Hematologic/Lymphatic: Reports no additional hematologic/lymphatic complaints [facility] Past Medical History Medical History COPD (chronic obstructive pulmonary disease) Essential hypertension Gout High cholesterol Hypertension Prostate cancer Pulmonary nodules Social History Social History Alcohol intake: current Alcohol intake frequency: 3 or more drinks per day Alcohol type: wine Patient Tobacco Use Status: Former Tobacco user Quit Date: 2015 Years Smoked: 60 yrs Smoked in Last 30 Days: No Second Hand Smoke Exposure: No Use of substances other than those prescribed or required for medical reasons: No Advance Directives: No Advance Directives Information Provided: No Meds Allergies Allergy/AdvReac Type Severity Reaction Status Date / Time pneumococcal vaccine Allergy Intermediate RASH Verified 04/08/21 19:12 [PNEUMOCOCCAL VACCINE] Active Medications: Current Medications Generic Name Dose Route Start Last Admin Trade Name Freq PRN Reason Stop Dose Admin Acetaminophen/Butalbital/Caffeine 1 tab 04/09/21 10:03 Butalb/Acetamin/Caff 50/325/40 Tablet PO Q4H PRN Headache Albuterol Sulfate 2 puff 04/09/21 07:00 Albuterol Sulfate 90 Mcg 8 Gm Inhaler INHALE Q2H PRN Shortness Of Breath Or Wheezing Amlodipine Besylate 5 mg 04/09/21 09:00 04/09/21 08:41 Amlodipine Besylate 5 Mg Tablet PO 5 mg DAILY DA Administration Protocol Atorvastatin Calcium 40 mg 04/09/21 09:00 04/09/21 08:13 Atorvastatin Calcium 40 Mg Tablet PO 40 mg DAILY DA Administration Bicalutamide 50 mg 04/09/21 09:00 04/09/21 08:14 Bicalutamide 50 Mg Tablet PO 50 mg DAILY DA Administration Docusate Sodium 100 mg 04/08/21 23:39 Docusate Sodium 100 Mg Capsule PO DAILY PRN Constipation Finasteride 5 mg 04/09/21 09:00 04/09/21 08:14 Finasteride 5 Mg Tablet PO 5 mg DAILY DA Administration Fluticasone/Vilanterol 1 puff 04/09/21 08:00 04/09/21 07:56 Fluticasone/Vilanterol 100/25 Blst.W.Dev INHALE Not Given RDAILY DA Furosemide 20 mg 04/09/21 09:00 04/09/21 08:13 Furosemide 20 Mg Tablet PO 20 mg DAILY DA Administration Protocol Heparin Sodium (Porcine) 5,000 unit 04/09/21 06:00 04/09/21 05:14 Heparin Sodium,Porcine 5,000 Unit/Ml Vial SUBCUT 5,000 unit Q12H DA Administration Hydrochlorothiazide 12.5 mg 04/09/21 09:00 04/09/21 08:09 Hydrochlorothiazide 12.5 Mg Tablet PO 12.5 mg DAILY DA Administration Lisinopril 40 mg 04/10/21 09:00 Lisinopril 40 Mg Tablet PO DAILY [facility] Ondansetron HCl 4 mg 04/08/21 23:39 Ondansetron Hcl 4 Mg/2 Ml Vial IVPUSH Q8H PRN Nausea and Vomiting Oxybutynin Chloride 5 mg 04/09/21 09:00 04/09/21 08:13 Oxybutynin Chloride Er 5 Mg Tab.Er.24 PO 5 mg DAILY [facility] Administration Sodium Chloride 3 ml 04/09/21 00:00 04/09/21 10:42 0.9 % Sodium Chloride Flush 3 Ml Syringe IVFLUSH 3 ml QSHIFT [facility] Administration Tamsulosin HCl 0.4 mg 04/09/21 09:00 04/09/21 08:14 Tamsulosin Hcl 0.4 Mg Capsule PO 0.4 mg BID DA Administration Home Medications Medication Instructions Recorded Confirmed Last Taken Type albuterol sulfate 90 mcg/actuation 2 puff PO Q2H PRN 09/07/20 04/09/21 Unknown History aerosol inhaler oxybutynin chloride 5 mg 5 mg PO DAILY 09/07/20 04/09/21 Unknown History tablet,extended release 24 hr tamsulosin 0.4 mg capsule 0.4 mg PO BID 09/07/20 04/09/21 Unknown History Physical Exam Vital Signs: Vital Signs: Last Vital Signs Temp 97.6 F 04/09/21 08:00 Pulse 50 04/09/21 08:00 Resp 18 04/09/21 08:00 BP 187/77 H 04/09/21 08:00 Pulse Ox 98 04/09/21 08:00 Body Mass Index 28.7 Const: General: cooperative, comfortable, no acute distress, alert and awake Nutritional Appearance: overweight Orientation/consciousness: patient oriented x3 HENMT: Head: Yes normocephalic and Yes atraumatic Neck: Neck: Yes trachea midline, Yes supple and Yes no JVD Resp: Effort & Inspection: normal respiratory effort Auscultation: clear to auscultation bilaterally Cardio: Jugular venous distension: no JVD Palpation: normal PMI Rate: regular rate Rhythm: regular rhythm Heart sounds: S1 normal heart sound present and S2 normal heart sound present GI: Auscultation: normal bowel sounds Skin: General skin exam: no rashes or lesions noted Neuro: General: patient oriented x3 Extrem: General: Yes no clubbing, cyanosis or edema Psych: Appearance: grossly normal Results Labs and Meds Result diagrams: 04/09/21 04:23 04/09/21 04:23 Lab results: Laboratory Results - last 24 hr 04/08/21 04/08/21 04/08/21 20:10 20:10 20:10 WBC 12.0 H RBC 3.96 L Hgb 12.9 L Hct 37.7 L MCV 95.2 MCH 32.6 MCHC 34.2 RDW 12.1 Plt Count 283 MPV 9.9 Immature Gran % (Auto) 0.3 Neut % (Auto) 65.4 Lymph % (Auto) 23.9 [place] % (Auto) 9.3 Eos % (Auto) 0.7 Baso % (Auto) 0.4 Lymph # (Auto) 2.9 [place] # (Auto) 1.1 Eos # (Auto) 0.1 Baso # (Auto) 0.1 Abs Immat Gran (auto) 0.04 H Absolute Neuts (auto) 7.9 Absolute Nucleated RBC 0.000 Nucleated RBC % (auto) 0.0 PT 11.0 INR 1.0 APTT 28.1 Sodium 137 Potassium 4.5 Chloride 100 Carbon Dioxide 26 Anion Gap 16 BUN 16 Creatinine 1.11 Estim Creat Clear Calc 55.9 Estimated GFR > 60 Random Glucose 123 H Calcium 9.7 Troponin I High Sens B-Natriuretic Peptide COVID-19 (JENNA) COVID-[employer] Com 04/08/21 04/09/21 04/09/21 20:10 00:14 00:46 WBC RBC Hgb Hct MCV MCH MCHC RDW Plt Count MPV Immature Gran % (Auto) Neut % (Auto) Lymph % (Auto) [place] % (Auto) Eos % (Auto) Baso % (Auto) Lymph # (Auto) [place] # (Auto) Eos # (Auto) Baso # (Auto) Abs Immat Gran (auto) Absolute Neuts (auto) Absolute Nucleated RBC Nucleated RBC % (auto) PT INR APTT Sodium Potassium Chloride Carbon Dioxide Anion Gap BUN Creatinine Estim Creat Clear Calc Estimated GFR Random Glucose Calcium Troponin I High Sens 51.2 H* 138.4 H* D B-Natriuretic Peptide COVID-19 (JENNA) Negative COVID-19 Clin Com See Note 04/09/21 04/09/21 04/09/21 04:23 04:23 07:08 WBC 10.9 H RBC 3.68 L Hgb 11.8 L Hct 35.5 L MCV 96.5 MCH 32.1 MCHC 33.2 RDW 12.2 Plt Count 279 MPV 10.3 Immature Gran % (Auto) 0.4 Neut % (Auto) 68.1 Lymph % (Auto) 20.0 [place] % (Auto) 10.1 Eos % (Auto) 1.0 Baso % (Auto) 0.4 Lymph # (Auto) 2.2 [place] # (Auto) 1.1 Eos # (Auto) 0.1 Baso # (Auto) 0.0 Abs Immat Gran (auto) 0.04 H Absolute Neuts (auto) 7.5 Absolute Nucleated RBC 0.000 Nucleated RBC % (auto) 0.0 PT INR APTT Sodium 136 Potassium 4.0 Chloride 99 Carbon Dioxide 29 Anion Gap 12 BUN 18 H Creatinine 1.11 Estim Creat Clear Calc 55.6 Estimated GFR > 60 Random Glucose 118 H Calcium 9.5 Troponin I High Sens 92.4 H* B-Natriuretic Peptide 982 H COVID-19 (JENNA) COVID-19 Clin Com EKG shows normal sinus rhythm with nonspecific ST changes Imaging Radiologist's impression: Impressions Head CT 04/08/21 19:44 IMPRESSION: 1. There is no evidence of a recent intracranial hemorrhage. 2. No acute infarct. 3. Extensive white matter disease possibly microangiopathy. Assessment and Plan (1) Elevated troponin: Status: Acute elevated troponin suggestive of myocardial injury secondary to hypertensive emergency. This is not suggestive primary acute coronary syndrome. Chest pain is now resolved. Continue aggressive control blood pressure. This is important. Outpatient myocardial perfusion imaging to be pursued to rule out significant obstructive coronary artery disease. No need for IV heparin at this point in time. (2) Hypertensive emergency: Status: Acute Hypertensive emergency with persistently elevated blood pressure. Lisinopril has and maximized to 40 mg daily. Add amlodipine 5 mg to regimen. Also add Aldactone 25 mg to his regimen. Continue to monitor BMP. BNP elevation most likely due to hypertensive emergency. Clinically not in heart failure. Trend BNP tomorrow. Continue aggressive control blood pressure. Will follow the patient. Procedures Date of Service Date of Service: 04/09/21
--- NOTE | 2021-04-09 12:24 | HO.PM.IMPN ---
Subjective Subjective Date of Service: 04/09/21 Interval History: the patient was seen and evaluated this morning Laying in bed, complaining of headache as the chest discomfort resolved Denies any fever, chills or shortness of breath No reported other overnight events. Systemic review: No fever, chills or weakness chest discomfort resolved overnight No shortness of breath or coughing No abdominal pain, nausea or vomiting No urinary symptoms No any rash or wounds Physical Exam Vital Signs: Vital Signs: Last Vital Signs Temp 97.6 F 04/09/21 08:00 Pulse 50 04/09/21 08:00 Resp 18 04/09/21 08:00 BP 187/77 H 04/09/21 08:00 Pulse Ox 98 04/09/21 08:00 Body Mass Index 28.7 Const: Other: Constitutional : Alert, oriented, complaining of headache Neck : Normal inspection, Supple Cardiovascular : RRR, S1 S2, no lower extremity edema Respiratory : Good bilateral air entry, no crackles, wheezes or rhonchi Gastrointestinal: soft, lax, Normal bowel sounds, Non tender Skin : Warm/Dry, No rash Neurological : Alert & oriented x3, No focal deficit Objective Data Current Medications Generic Name Dose Route Start Last Admin Trade Name Freq PRN Reason Stop Dose Admin Acetaminophen/Butalbital/Caffeine 1 tab 04/09/21 10:03 Butalb/Acetamin/Caff 50/325/40 Tablet PO Q4H PRN Headache Albuterol Sulfate 2 puff 04/09/21 07:00 Albuterol Sulfate 90 Mcg 8 Gm Inhaler INHALE Q2H PRN Shortness Of Breath Or Wheezing Amlodipine Besylate 5 mg 04/09/21 09:00 04/09/21 08:41 Amlodipine Besylate 5 Mg Tablet PO 5 mg DAILY DA Administration Protocol Atorvastatin Calcium 40 mg 04/09/21 09:00 04/09/21 08:13 Atorvastatin Calcium 40 Mg Tablet PO 40 mg DAILY DA Administration Bicalutamide 50 mg 04/09/21 09:00 04/09/21 08:14 Bicalutamide 50 Mg Tablet PO 50 mg DAILY DA Administration Docusate Sodium 100 mg 04/08/21 23:39 Docusate Sodium 100 Mg Capsule PO DAILY PRN Constipation Finasteride 5 mg 04/09/21 09:00 04/09/21 08:14 Finasteride 5 Mg Tablet PO 5 mg DAILY DA Administration Fluticasone/Vilanterol 1 puff 04/09/21 08:00 04/09/21 07:56 Fluticasone/Vilanterol 100/25 Blst.W.Dev INHALE Not Given RDAILY [facility] Furosemide 20 mg 04/09/21 09:00 04/09/21 08:13 Furosemide 20 Mg Tablet PO 20 mg DAILY DA Administration Protocol Heparin Sodium (Porcine) 5,000 unit 04/09/21 06:00 04/09/21 05:14 Heparin Sodium,Porcine 5,000 Unit/Ml Vial SUBCUT 5,000 unit Q12H DA Administration Hydrochlorothiazide 12.5 mg 04/09/21 09:00 04/09/21 08:09 Hydrochlorothiazide 12.5 Mg Tablet PO 12.5 mg DAILY DA Administration Lisinopril 40 mg 04/10/21 09:00 Lisinopril 40 Mg Tablet PO DAILY [facility] Ondansetron HCl 4 mg 04/08/21 23:39 Ondansetron Hcl 4 Mg/2 Ml Vial IVPUSH Q8H PRN Nausea and Vomiting Oxybutynin Chloride 5 mg 04/09/21 09:00 04/09/21 08:13 Oxybutynin Chloride Er 5 Mg Tab.Er.24 PO 5 mg DAILY DA Administration Sodium Chloride 3 ml 04/09/21 00:00 04/09/21 10:42 0.9 % Sodium Chloride Flush 3 Ml Syringe IVFLUSH 3 ml QSHIFT DA Administration Tamsulosin HCl 0.4 mg 04/09/21 09:00 04/09/21 08:14 Tamsulosin Hcl 0.4 Mg Capsule PO 0.4 mg BID DA Administration Labs CBC & Chem 7: 04/09/21 04:23 04/09/21 04:23 Labs: Laboratory Results - last 24 hr 04/08/21 04/08/21 04/08/21 20:10 20:10 20:10 WBC 12.0 H RBC 3.96 L Hgb 12.9 L Hct 37.7 L MCV 95.2 MCH 32.6 MCHC 34.2 RDW 12.1 Plt Count 283 MPV 9.9 Immature Gran % (Auto) 0.3 Neut % (Auto) 65.4 Lymph % (Auto) 23.9 [place] % (Auto) 9.3 Eos % (Auto) 0.7 Baso % (Auto) 0.4 Lymph # (Auto) 2.9 [place] # (Auto) 1.1 Eos # (Auto) 0.1 Baso # (Auto) 0.1 Abs Immat Gran (auto) 0.04 H Absolute Neuts (auto) 7.9 Absolute Nucleated RBC 0.000 Nucleated RBC % (auto) 0.0 PT 11.0 INR 1.0 APTT 28.1 Sodium 137 Potassium 4.5 Chloride 100 Carbon Dioxide 26 Anion Gap 16 BUN 16 Creatinine 1.11 Estim Creat Clear Calc 55.9 Estimated GFR > 60 Random Glucose 123 H Calcium 9.7 Troponin I High Sens B-Natriuretic Peptide COVID-19 ([facility]ENNA) COVID-19 Clin Com 04/08/21 04/09/21 04/09/21 20:10 00:14 00:46 WBC RBC Hgb Hct MCV MCH MCHC RDW Plt Count MPV Immature Gran % (Auto) Neut % (Auto) Lymph % (Auto) [place] % (Auto) Eos % (Auto) Baso % (Auto) Lymph # (Auto) [place] # (Auto) Eos # (Auto) Baso # (Auto) Abs Immat Gran (auto) Absolute Neuts (auto) Absolute Nucleated RBC Nucleated RBC % (auto) PT INR APTT Sodium Potassium Chloride Carbon Dioxide Anion Gap BUN Creatinine Estim Creat Clear Calc Estimated GFR Random Glucose Calcium Troponin I High Sens 51.2 H* 138.4 H* D B-Natriuretic Peptide COVID-19 (JENNA) Negative COVID-19 Clin Com See Note 04/09/21 04/09/21 04/09/21 04:23 04:23 07:08 WBC 10.9 H RBC 3.68 L Hgb 11.8 L Hct 35.5 L MCV 96.5 MCH 32.1 MCHC 33.2 RDW 12.2 Plt Count 279 MPV 10.3 Immature Gran % (Auto) 0.4 Neut % (Auto) 68.1 Lymph % (Auto) 20.0 [place] % (Auto) 10.1 Eos % (Auto) 1.0 Baso % (Auto) 0.4 Lymph # (Auto) 2.2 [place] # (Auto) 1.1 Eos # (Auto) 0.1 Baso # (Auto) 0.0 Abs Immat Gran (auto) 0.04 H Absolute Neuts (auto) 7.5 Absolute Nucleated RBC 0.000 Nucleated RBC % (auto) 0.0 PT INR APTT Sodium 136 Potassium 4.0 Chloride 99 Carbon Dioxide 29 Anion Gap 12 BUN 18 H Creatinine 1.11 Estim Creat Clear Calc 55.6 Estimated GFR > 60 Random Glucose 118 H Calcium 9.5 Troponin I High Sens 92.4 H* B-Natriuretic Peptide 982 H COVID-19 ([facility]ENNA) COVID-19 Clin Com Quality Stroke Does the patient have a stroke diagnosis?: No VTE Prior VTE?: No VTE Risk Level:: Medical - moderate - high VTE Device Contraindication: Treatment Not Indicated VTE Drug Contraindication: N/A - Med Ordered Assessment and Plan (1) Hypertensive emergency: Status: Acute (2) Chest pain: Status: Acute (3) Elevated troponin: Status: Acute (4) Headache: Status: Acute Assessment and Plan: 80-year-old male with past medical history of hypertension presents to the hospital with headache. Found to have elevated blood pressure. patient's lisinopril was recently held due to antibiotic interaction # hypertensive emergency blood pressure remains significantly elevated from missing his home medications increase lisinopril Start amlodipine and spironolactone labetalol p.r.n. for blood pressure above 190s systolic # chest pain no EKG changes elevated troponin most likely secondary to hypertensive emergency continue aspirin monitor for any recurrent symptoms will obtain echocardiogram cardiology consulted; Outpatient myocardial perfusion imaging to be pursued to rule out significant obstructive coronary artery disease. No need for IV heparin at this point in time. # headache secondary to elevated BP CT negative for any acute abnormality start Floricet and controlled blood pressure # COPD not in exacerbation continue home inhalers # CHF does not appear to be in exacerbation continue home Lasix DVT prophylaxis Heparin subQ
[2021-04-09 12:44] LABS: Glucose Urine UA NEG (NEG); Leukocyte Esterase Urine NEG (NEG); Nitrite Urine NEG (NEG); Urine Blood TRACE (NEG); Urine Ketones NEG (NEG); Urine Protein NEG (NEG-TRACE)
[2021-04-09 12:59] LABS: Appearance Urine CLEAR; Color Urine YELLOW
[2021-04-09 13:00] LABS: WBC Urine 0 /HPF (0-4)
[2021-04-09 13:01] LABS: Mucus Urine 1+ /LPF; RBC Urine 0-2 /HPF (0); Squamous Epithelial Cell Urine 1+ /LPF
[2021-04-09] MEDS: hydrALAZINE HCl 25 MG TABLET PO ×2 (16:57→20:50)
[2021-04-10] VITALS (7 sets, daily range): BP systolic 102–146; BP diastolic 51–65; PULSE 51–61; RESP 18–20; TEMP 36.1–37.1; O2SAT 95–97
[2021-04-10] MEDS: Heparin Sodium,Porcine 5,000 UNIT/ML VIAL 5000 UNIT SUBCUT ×2 (05:23→18:02)
[2021-04-10 07:13] LABS: B Type Natriuretic Peptide 216 pg/mL (<100)
[2021-04-10 07:16] LABS: Anion Gap 16 (12-20); Blood Urea Nitrogen 26 mg/dL (9-16); Calcium 9.1 mg/dL (8.4-10.2); Carbon Dioxide 25 mmol/L (22-29); Chloride 100 mmol/L (96-108); Creatinine Clr Calc Pharmacy 45.7; Estimated Glomerular Filt Rate 51; Glucose Random 94 mg/dL (60-115); Potassium 3.7 mmol/L (3.3-5.1); Sodium 137 mmol/L (135-145)
[2021-04-10] MEDS: 0.9 % Sodium Chloride Flush 3 ML SYRINGE IVFLUSH ×3 (07:16→23:58)
[2021-04-10] MEDS: Atorvastatin Calcium 40 MG TABLET PO (07:17)
[2021-04-10] MEDS: Bicalutamide 50 MG TABLET PO (07:17)
[2021-04-10] MEDS: hydroCHLOROthiazide 12.5 MG TABLET PO (07:17)
[2021-04-10] MEDS: amLODIPine Besylate 5 MG TABLET PO (07:17)
[2021-04-10] MEDS: Finasteride 5 MG TABLET PO (07:17)
[2021-04-10] MEDS: lisinopriL 40 MG TABLET PO (07:17)
[2021-04-10] MEDS: Furosemide 20 MG TABLET PO (07:17)
[2021-04-10] MEDS: hydrALAZINE HCl 25 MG TABLET PO (07:18)
[2021-04-10] MEDS: Tamsulosin HCL 0.4 MG CAPSULE PO ×2 (07:18→19:34)
[2021-04-10] MEDS: Fluticasone/Vilanterol 100/25 BLST.W.DEV 1 PUFF INHALE (07:24)
--- NOTE | 2021-04-10 11:14 | P.PNCA_ITS ---
Subjective Subjective Date of Service: 04/10/21 Principal diagnosis: hypertensive emergency, elevated troponin Interval history: patient today says he is feeling lightheaded. Blood pressure is much lower than before. Denies any headaches or chest pain. Echo has not been performed Review of Systems Constitutional: Reports no additional constitutional complaints Cardiovascular: Denies chest pain, Denies syncope, Denies leg edema, Reports lightheadedness, Denies palpitations and Denies dyspnea Respiratory: Reports no additional respiratory complaints and Denies dyspnea Gastrointestinal: Reports no additional gastrointestinal complaints Reports system reviewed and no additional complaints, except as documented and Denies syncope Endocrine: Reports no additional endocrine complaints and Denies palpitations Physical Exam Vital Signs: Last Vital Signs Temp 98.3 F 04/10/21 08:00 Pulse 56 04/10/21 08:00 Resp 20 04/10/21 08:00 BP 114/57 L 04/10/21 08:00 Pulse Ox 96 04/10/21 08:00 Body Mass Index 28.7 Const General: cooperative, comfortable, alert and awake Nutritional Appearance: overweight Neck Neck: Yes trachea midline, Yes supple and Yes no JVD Resp Effort & Inspection: normal respiratory effort Auscultation: clear to auscultation bilaterally Cardio Jugular venous distension: no JVD Palpation: normal PMI Rhythm: regular rhythm Heart sounds: S1 normal heart sound present, S2 normal heart sound present, no click and no gallops GI Auscultation: normal bowel sounds Neuro General: no focal motor deficits Extrem General: Yes no clubbing, cyanosis or edema Results Labs and Meds Result diagrams: 04/09/21 04:23 04/10/21 06:03 Lab results: Laboratory Results - last 24 hr 04/09/21 04/10/21 04/10/21 12:31 06:03 06:03 Sodium 137 Potassium 3.7 Chloride 100 Carbon Dioxide 25 Anion Gap 16 BUN 26 H Creatinine 1.35 Estim Creat Clear Calc 45.7 Estimated GFR 51 Random Glucose 94 Calcium 9.1 B-Natriuretic Peptide 216 H Urine Color YELLOW Urine Appearance CLEAR Urine pH 6.0 Ur Specific [place] 1.010 Urine Protein NEG Urine Glucose (UA) NEG Urine Ketones NEG Urine Blood TRACE Urine Nitrite NEG Ur Leukocyte Esterase NEG Urine RBC 0-2 Urine WBC 0 Ur Squamous Epith Cells 1+ Urine Bacteria NONE Urine Mucus 1+ Progress Note: A&P Assessment and plan (1) Lightheadedness: Status: Acute Assessment and Plan: lightheadedness due to rapid correction of his blood pressure. Already hydralazine has been discontinued. Also discontinue hydrochlorothiazide as he is already on Lasix therapy. Also need to re-evaluate Lasix therapy if needed. Amlodipine 5 mg. Monitor closely. Adequate control would be systolic blood pressure up to 140. monitor closely. Echocardiogram is pending. (2) Elevated troponin: Status: Acute Assessment and Plan: Elevated troponin secondary to myocardial injury secondary to hypertensive emergency. Not a primary ACS event. Echocardiogram pending. No need for IV anticoagulation. Low-dose aspirin therapy. Outpatient Lexiscan will be pursued. (3) Hypertensive emergency: Status: Acute Assessment and Plan: Hypertensive emergency due to withdrawal of his medications. Medications have been restarted. Continue lisinopril therapy. Discontinue hydrochlorothiazide therapy. Amlodipine was 5 mg today. Was increased to 10 mg tomorrow, watch closely. May be an adequate at 5 mg daily. Rest of the blood pressure can be followed as outpatient. Will sign of the case. Thank you for allowing us to partake in his care Fall Risk Details Current Medications: Current Medications Generic Name Dose Route Start Last Admin Trade Name Freq PRN Reason Stop Dose Admin Acetaminophen/Butalbital/Caffeine 1 tab 04/09/21 10:03 04/09/21 15:37 Butalb/Acetamin/Caff 50/325/40 Tablet PO 1 tab Q4H PRN Administration Headache Albuterol Sulfate 2 puff 04/09/21 07:00 Albuterol Sulfate 90 Mcg 8 Gm Inhaler INHALE Q2H PRN Shortness Of Breath Or Wheezing Amlodipine Besylate 10 mg 04/11/21 09:00 Amlodipine Besylate 5 Mg Tablet PO DAILY [facility] Protocol Atorvastatin Calcium 40 mg 04/09/21 09:00 04/10/21 07:17 Atorvastatin Calcium 40 Mg Tablet PO 40 mg DAILY DA Administration Bicalutamide 50 mg 04/09/21 09:00 04/10/21 07:17 Bicalutamide 50 Mg Tablet PO 50 mg DAILY DA Administration Docusate Sodium 100 mg 04/08/21 23:39 Docusate Sodium 100 Mg Capsule PO DAILY PRN Constipation Finasteride 5 mg 04/09/21 09:00 04/10/21 07:17 Finasteride 5 Mg Tablet PO 5 mg DAILY DA Administration Fluticasone/Vilanterol 1 puff 04/09/21 08:00 04/10/21 07:24 Fluticasone/Vilanterol 100/25 Blst.W.Dev INHALE 1 puff RDAILY DA Administration Furosemide 20 mg 04/09/21 09:00 04/10/21 07:17 Furosemide 20 Mg Tablet PO 20 mg DAILY DA Administration Protocol Heparin Sodium (Porcine) 5,000 unit 04/09/21 06:00 04/10/21 05:23 Heparin Sodium,Porcine 5,000 Unit/Ml Vial SUBCUT 5,000 unit Q12H DA Administration Hydrochlorothiazide 12.5 mg 04/09/21 09:00 04/10/21 07:17 Hydrochlorothiazide 12.5 Mg Tablet PO 12.5 mg DAILY DA Administration Lisinopril 40 mg 04/10/21 09:00 04/10/21 07:17 Lisinopril 40 Mg Tablet PO 40 mg DAILY DA Administration Ondansetron HCl 4 mg 04/08/21 23:39 Ondansetron Hcl 4 Mg/2 Ml Vial IVPUSH Q8H PRN Nausea and Vomiting Oxybutynin Chloride 5 mg 04/09/21 09:00 04/10/21 07:17 Oxybutynin Chloride Er 5 Mg Tab.Er.24 PO 5 mg DAILY DA Administration Sodium Chloride 3 ml 04/09/21 00:00 04/10/21 07:16 0.9 % Sodium Chloride Flush 3 Ml Syringe IVFLUSH 3 ml QSHIFT DA Administration Tamsulosin HCl 0.4 mg 04/09/21 09:00 04/10/21 07:18 Tamsulosin Hcl 0.4 Mg Capsule PO 0.4 mg BID DA Administration Time Spent With Patient Time: Total time spent is greater than 50% in coordination of care (as documented) at patient's floor/unit and/or counseling patient: Time with patient: 25 - 35 minutes Progress Note: Quality Stroke Does the patient have a stroke diagnosis?: No Procedures Date of Service Date of Service: 04/10/21
--- NOTE | 2021-04-10 12:00 | CA_ITS ---
Transthoracic Echocardiogram Patient (Last, First, Middle): Kalyan Nguyen R Gender: Male Date of : 1940 Age: 80 Procedure Date: 04/10/2021 Procedure Type: Transthoracic Echocardiogram Location: [facility] [place] Height: 170.18 cm Weight: 83.01 kg BSA: 1.95 m2 Heart Rate: bpm BP: 114 / 57 mmHg Vamper: Referring MD: Brandon Wright MD Social Welfare Clerk: Manoj Motta MD Symptoms: NSTEMI Study Quality: Technically Difficult ECG Rhythm: Sinus with extra beats Conclusions: - 1. Normal LV systolic function with LVEF of 60 65% 2. Normal cardiac valvular Doppler 3. Moderately dilated left atrium 4. Normal calculated RV systolic pressure 5. No gross pericardial effusion Findings Procedure Information Contrast agent, definity, is being given per protocol without apparent complications. The patient receives contrast. Left Ventricle Normal left ventricular size and systolic function. There is mildly increased left ventricular wall thickness. The visually estimated ejection fraction is between 60-65%. Diastolic function is indeterminate on the basis of available data. Right Ventricle The right ventricle was not well visualized. Atria The left atrium is moderately dilated. Interatrial shunt cannot be excluded. The right atrium was not well visualized. Aortic Valve The aortic valve was not well visualized. There is moderate calcification of the aortic valve. There is no aortic valve stenosis. There is no aortic valve regurgitation. Mitral Valve There is mild anterior and posterior mitral leaflet thickening. There is trace mitral valve regurgitation. There is no mitral valve stenosis. Pulmonic Valve The pulmonic valve was not well visualized. Tricuspid Valve The tricuspid valve was not well visualized. There is trace tricuspid valve regurgitation. The right ventricular systolic pressure is normal. The right ventricular systolic pressure is 17 mmHg. Normal right atrial pressure. There is no evidence of pulmonary hypertension. Great Vessels The aorta was not well visualized. The pulmonary artery was not well visualized. Venous The inferior vena cava is normal in size and collapses greater than 50% with inspiration. Pericardium/Pleural There is no evidence of pericardial effusion. Prior Study Comparison Changes noted compared to prior study dated: 02/27/2019. RV systolic pressure measured to be normal on this study Measurements 2D Linear Measurements IVSd: 1.18 0.6-0.9/0.6-1.0 cm LVIDd: 4.51 3.9-5.3/4.2-5.9 cm LVIDd Index: 2.31 2.4-3.2/2.2-3.1 cm/m2 LVIDs: 2.51 2.0-3.6 cm LVPWd: 1.10 0.7-1.1 cm LA Diam: 3.60 2.7-3.8/3.0-4.0 cm LAIDs Index: 1.85 1.5-2.3 cm/m2 LV Mass: 314.18 67-162/88-224 g LV Mass Index: 161.12 43-95/49-115 g/m2 LVOT Diam: 2.00 3.0+(-)1.3 cm Mitral Valve MV Pk E: 0.52 MV PK A: 0.61 MV Decel Time: 251.00 E/A: 0.90 E'Lateral: 6.96 E'Medial: 5.55 E/E' Med: 9.40 E/E' Lat: 7.50 PHT: 74.00 MVA PHT: 2.97 Decel [place]: 2.08 Aortic Valve AoV Pk Cristino: 1.82 AoV Mn Cristino: 1.03 AoV VTI: 0.45 AoV Pk Grad: 13.00 Aov Mn Grad: 5.00 HENNA Cont.VTI: 1.91 LVOT LVOT Pk Cristino: 1.06 LVOT Mn Cristino: 0.69 LVOT VTI: 0.27 LVOT Pk Grad: 4.00 LVOT Mn Grad: 2.00 LVOT Diam: 2.00 LVOT Area: 3.14 Diastolic Function MV Pk E: 0.52 MV Pk A: 0.61 E/A: 0.90 E'Medial: 5.55 E/E' Med: 9.40 E' Laterial: 6.96 E/E' Lat: 7.50 Tricuspid Valve TR Pk Cristino: 1.90 TR Pk Grad: 14.00 RA Press: 3.00 RVSP: 17.00 Pulmonary Valve PV Pk Cristino: 0.96 Peak PV Grad: 4.00 Updated in Other Vendor System with Status of Final Manoj Motta MD electronically signed on 04/11/2021 9:33:24 AM with status of Final
--- NOTE | 2021-04-10 12:02 | MHC.CM.PN ---
CM MET WITH PT WHO REPORTS HE LIVES WITH HIS AND IS INDEPENDENT WITH CARE. PT HAS A CANE BUT ONLY USES IT PRN. HE REPORTS HE USUALLY NEEDS IT IN THE MORNING UNTIL HE IS UP AND MOVING AROUND FOR A BIT. PT HAS NO HOME OR COMMUNITY SERVICES. PT REPORTS HE DOES HAVE A HCP COMPLETED NAMING HIS , MARCO HIS AGENT. CURRENT DC PLAN IS HOME WITH NO SERVICES TO TRANSPORT
--- NOTE | 2021-04-10 15:11 | HO.PM.IMPN ---
Subjective Subjective Date of Service: 04/10/21 Interval History: the patient was seen and evaluated this morning Laying in bed, feels better today as the a day improved significantly Reporting some lightheadedness upon standing up Denies any fever, chills or chest pain No reported other overnight events. Systemic review: No fever, chills or weakness No chest pain, palpitation shortness of breath improving, still requiring 2 L of oxygen No abdominal pain, nausea or vomiting No urinary symptoms No any rash or wounds Physical Exam Vital Signs: Vital Signs: Last Vital Signs Temp 98.6 F 04/10/21 11:37 Pulse 53 04/10/21 11:37 Resp 20 04/10/21 11:37 BP 117/56 L 04/10/21 11:37 Pulse Ox 95 04/10/21 11:37 Body Mass Index 28.7 Const: Other: Constitutional : Alert, oriented, headache has improved Neck : Normal inspection, Supple Cardiovascular : RRR, S1 S2, no lower extremity edema Respiratory : Good bilateral air entry, no crackles, wheezes or rhonchi, home 2 L of oxygen Gastrointestinal: soft, lax, Normal bowel sounds, Non tender Skin : Warm/Dry, No rash Neurological : Alert & oriented x3, No focal deficit Objective Data Current Medications Generic Name Dose Route Start Last Admin Trade Name Freq PRN Reason Stop Dose Admin Acetaminophen/Butalbital/Caffeine 1 tab 04/09/21 10:03 04/09/21 15:37 Butalb/Acetamin/Caff 50/325/40 Tablet PO 1 tab Q4H PRN Administration Headache Albuterol Sulfate 2 puff 04/09/21 07:00 Albuterol Sulfate 90 Mcg 8 Gm Inhaler INHALE Q2H PRN Shortness Of Breath Or Wheezing Amlodipine Besylate 10 mg 04/11/21 09:00 Amlodipine Besylate 5 Mg Tablet PO DAILY DA Protocol Atorvastatin Calcium 40 mg 04/09/21 09:00 04/10/21 07:17 Atorvastatin Calcium 40 Mg Tablet PO 40 mg DAILY DA Administration Bicalutamide 50 mg 04/09/21 09:00 04/10/21 07:17 Bicalutamide 50 Mg Tablet PO 50 mg DAILY DA Administration Docusate Sodium 100 mg 04/08/21 23:39 Docusate Sodium 100 Mg Capsule PO DAILY PRN Constipation Finasteride 5 mg 04/09/21 09:00 04/10/21 07:17 Finasteride 5 Mg Tablet PO 5 mg DAILY DA Administration Fluticasone/Vilanterol 1 puff 04/09/21 08:00 04/10/21 07:24 Fluticasone/Vilanterol 100/25 Blst.W.Dev INHALE 1 puff RDAILY DA Administration Furosemide 20 mg 04/09/21 09:00 04/10/21 07:17 Furosemide 20 Mg Tablet PO 20 mg DAILY DA Administration Protocol Heparin Sodium (Porcine) 5,000 unit 04/09/21 06:00 04/10/21 05:23 Heparin Sodium,Porcine 5,000 Unit/Ml Vial SUBCUT 5,000 unit Q12H DA Administration Hydrochlorothiazide 12.5 mg 04/09/21 09:00 04/10/21 07:17 Hydrochlorothiazide 12.5 Mg Tablet PO 12.5 mg DAILY DA Administration Lisinopril 40 mg 04/10/21 09:00 04/10/21 07:17 Lisinopril 40 Mg Tablet PO 40 mg DAILY DA Administration Ondansetron HCl 4 mg 04/08/21 23:39 Ondansetron Hcl 4 Mg/2 Ml Vial IVPUSH Q8H PRN Nausea and Vomiting Oxybutynin Chloride 5 mg 04/09/21 09:00 04/10/21 07:17 Oxybutynin Chloride Er 5 Mg Tab.Er.24 PO 5 mg DAILY DA Administration Sodium Chloride 3 ml 04/09/21 00:00 04/10/21 15:02 0.9 % Sodium Chloride Flush 3 Ml Syringe IVFLUSH 3 ml QSHIFT DA Administration Tamsulosin HCl 0.4 mg 04/09/21 09:00 04/10/21 07:18 Tamsulosin Hcl 0.4 Mg Capsule PO 0.4 mg BID DA Administration Labs CBC & Chem 7: 04/09/21 04:23 04/10/21 06:03 Labs: Laboratory Results - last 24 hr 04/10/21 04/10/21 06:03 06:03 Sodium 137 Potassium 3.7 Chloride 100 Carbon Dioxide 25 Anion Gap 16 BUN 26 H Creatinine 1.35 Estim Creat Clear Calc 45.7 Estimated GFR 51 Random Glucose 94 Calcium 9.1 B-Natriuretic Peptide 216 H Quality Stroke Does the patient have a stroke diagnosis?: No VTE Prior VTE?: No VTE Risk Level:: Medical - moderate - high VTE Device Contraindication: Treatment Not Indicated VTE Drug Contraindication: N/A - Med Ordered Assessment and Plan (1) Hypertensive emergency: Status: Acute (2) Chest pain: Status: Acute (3) Elevated troponin: Status: Acute (4) Headache: Status: Acute Assessment and Plan: 80-year-old male with past medical history of hypertension presents to the hospital with headache. Found to have elevated blood pressure. patient's lisinopril was recently held due to antibiotic interaction # hypertensive emergency blood pressure improved significantly, seems to be dropping and causing orthostatic hypotension continue lisinopril 40 continue amlodipine 5 mg Discontinue hydralazine hydrochlorothiazide labetalol p.r.n. for blood pressure above 190s systolic # chest pain no EKG changes elevated troponin most likely secondary to hypertensive emergency continue aspirin monitor for any recurrent symptoms pending echo cardiology consulted; Outpatient myocardial perfusion imaging to be pursued to rule out significant obstructive coronary artery disease. # headache secondary to elevated BP CT negative for any acute abnormality start Floricet and control blood pressure # COPD not in exacerbation continue home inhalers # CHF does not appear to be in exacerbation continue home Lasix DVT prophylaxis Heparin subQ
[2021-04-10] MEDS: Butalb/Acetamin/Caff 50/325/40 TABLET 1 TAB PO (19:34)
[2021-04-11 03:23] VITALS: BP 114/53; PULSE 59; RESP 20; TEMP 37.1; O2SAT 95
[2021-04-11] MEDS: Heparin Sodium,Porcine 5,000 UNIT/ML VIAL 5000 UNIT SUBCUT ×2 (05:32→18:02)
[2021-04-11 07:20] LABS: Anion Gap 14 (12-20); Blood Urea Nitrogen 39 mg/dL (9-16); Calcium 9.2 mg/dL (8.4-10.2); Carbon Dioxide 31 mmol/L (22-29); Chloride 97 mmol/L (96-108); Creatinine Clr Calc Pharmacy 31.8; Estimated Glomerular Filt Rate 34; Glucose Random 103 mg/dL (60-115); Sodium 138 mmol/L (135-145)
[2021-04-11] MEDS: Fluticasone/Vilanterol 100/25 BLST.W.DEV 1 PUFF INHALE (07:38)
[2021-04-11 08:00] VITALS: BP 116/51; PULSE 61; RESP 18; TEMP 36; O2SAT 95
[2021-04-11] MEDS: Finasteride 5 MG TABLET PO (08:34)
[2021-04-11] MEDS: amLODIPine Besylate 5 MG TABLET PO (08:35)
[2021-04-11] MEDS: lisinopriL 20 MG TABLET PO (08:35)
[2021-04-11] MEDS: Atorvastatin Calcium 40 MG TABLET PO (08:35)
[2021-04-11] MEDS: Tamsulosin HCL 0.4 MG CAPSULE PO ×2 (08:35→20:16)
[2021-04-11] MEDS: 0.9 % Sodium Chloride Flush 3 ML SYRINGE IVFLUSH ×3 (08:37→20:16)
[2021-04-11 11:30] VITALS: BP 103/49; PULSE 63; RESP 20; TEMP 36.3; O2SAT 92
--- NOTE | 2021-04-11 14:49 | HO.PM.IMPN ---
Subjective Subjective Date of Service: 04/11/21 Interval History: the patient was seen and evaluated this morning Laying in bed, feels better today kidney function to go ahead as creatinine jumped overnight Denies any fever, chills or chest pain No reported other overnight events. Systemic review: No fever, chills or weakness No chest pain, palpitation shortness of breath improving, still requiring 2 L of oxygen No abdominal pain, nausea or vomiting No urinary symptoms No any rash or wounds Physical Exam Vital Signs: Vital Signs: Last Vital Signs Temp 97.4 F 04/11/21 11:30 Pulse 63 04/11/21 11:30 Resp 20 04/11/21 11:30 BP 103/49 L 04/11/21 11:30 Pulse Ox 92 04/11/21 11:30 Body Mass Index 28.7 Const: Other: Constitutional : Alert, oriented, headache has improved Neck : Normal inspection, Supple Cardiovascular : RRR, S1 S2, no lower extremity edema Respiratory : Good bilateral air entry, no crackles, wheezes or rhonchi, home 2 L of oxygen Gastrointestinal: soft, lax, Normal bowel sounds, Non tender Skin : Warm/Dry, No rash Neurological : Alert & oriented x3, No focal deficit Objective Data Current Medications Generic Name Dose Route Start Last Admin Trade Name Freq PRN Reason Stop Dose Admin Acetaminophen/Butalbital/Caffeine 1 tab 04/09/21 10:03 04/10/21 19:34 Butalb/Acetamin/Caff 50/325/40 Tablet PO 1 tab Q4H PRN Administration Headache Albuterol Sulfate 2 puff 04/09/21 07:00 Albuterol Sulfate 90 Mcg 8 Gm Inhaler INHALE Q2H PRN Shortness Of Breath Or Wheezing Amlodipine Besylate 5 mg 04/11/21 09:00 04/11/21 08:35 Amlodipine Besylate 5 Mg Tablet PO 5 mg DAILY DA Administration Protocol Atorvastatin Calcium 40 mg 04/09/21 09:00 04/11/21 08:35 Atorvastatin Calcium 40 Mg Tablet PO 40 mg DAILY DA Administration Bicalutamide 50 mg 04/09/21 09:00 04/10/21 07:17 Bicalutamide 50 Mg Tablet PO 50 mg DAILY DA Administration Docusate Sodium 100 mg 04/08/21 23:39 Docusate Sodium 100 Mg Capsule PO DAILY PRN Constipation Finasteride 5 mg 04/09/21 09:00 04/11/21 08:34 Finasteride 5 Mg Tablet PO 5 mg DAILY DA Administration Fluticasone/Vilanterol 1 puff 04/09/21 08:00 04/11/21 07:38 Fluticasone/Vilanterol 100/25 Blst.W.Dev INHALE 1 puff RDAILY DA Administration Furosemide 20 mg 04/09/21 09:00 04/10/21 07:17 Furosemide 20 Mg Tablet PO 20 mg DAILY DA Administration Protocol Heparin Sodium (Porcine) 5,000 unit 04/09/21 06:00 04/11/21 05:32 Heparin Sodium,Porcine 5,000 Unit/Ml Vial SUBCUT 5,000 unit Q12H DA Administration Lisinopril 20 mg 04/11/21 09:00 04/11/21 08:35 Lisinopril 20 Mg Tablet PO 20 mg DAILY DA Administration Ondansetron HCl 4 mg 04/08/21 23:39 Ondansetron Hcl 4 Mg/2 Ml Vial IVPUSH Q8H PRN Nausea and Vomiting Oxybutynin Chloride 5 mg 04/09/21 09:00 04/11/21 08:35 Oxybutynin Chloride Er 5 Mg Tab.Er.24 PO 5 mg DAILY DA Administration Sodium Chloride 3 ml 04/09/21 00:00 04/11/21 08:37 0.9 % Sodium Chloride Flush 3 Ml Syringe IVFLUSH 3 ml QSHIFT DA Administration Tamsulosin HCl 0.4 mg 04/09/21 09:00 04/11/21 08:35 Tamsulosin Hcl 0.4 Mg Capsule PO 0.4 mg BID DA Administration Labs CBC & Chem 7: 04/09/21 04:23 04/11/21 06:40 Labs: Laboratory Results - last 24 hr 04/11/21 06:40 Sodium 138 Potassium 4.0 Chloride 97 Carbon Dioxide 31 H Anion Gap 14 BUN 39 H Creatinine 1.94 H Estim Creat Clear Calc 31.8 Estimated GFR 34 Random Glucose 103 Calcium 9.2 Quality Stroke Does the patient have a stroke diagnosis?: No VTE Prior VTE?: No VTE Risk Level:: Medical - moderate - high VTE Device Contraindication: Treatment Not Indicated VTE Drug Contraindication: N/A - Med Ordered Assessment and Plan (1) Hypertensive emergency: Status: Acute (2) Chest pain: Status: Acute (3) Elevated troponin: Status: Acute (4) Headache: Status: Acute Assessment and Plan: 80-year-old male with past medical history of hypertension presents to the hospital with headache. Found to have elevated blood pressure. patient's lisinopril was recently held due to antibiotic interaction # acute kidney injury Creatinine increased to 1.8 from baseline of 1. Likely related to hypotensive events Avoid nephrotoxic medications Monitors urine output To call Nephrology team tomorrow if not improving follow BMP # hypertensive emergency resolved, actually he developed hypotension decrease lisinopril to 20 mg today discontinue amlodipine 5 mg for now as his blood pressure running on the lower end and he is reporting lightheadedness he might eventually only requires his home medications as it seems like he was not taking any medications for 1 week before coming to the hospital # chest pain no EKG changes elevated troponin most likely secondary to hypertensive emergency continue aspirin monitor for any recurrent symptoms normal EF of 55-60% cardiology consulted; Outpatient myocardial perfusion imaging to be pursued to rule out significant obstructive coronary artery disease. # headache secondary to elevated BP CT negative for any acute abnormality p.r.arslan Rose # COPD not in exacerbation continue home inhalers # CHF does not appear to be in exacerbation continue home Lasix DVT prophylaxis Heparin subQ
[2021-04-11 15:09] VITALS: BP 105/53; PULSE 58; RESP 20; TEMP 36.1; O2SAT 95
[2021-04-11 19:06] VITALS: BP 111/56; PULSE 61; RESP 20; TEMP 36.1; O2SAT 93
[2021-04-12] VITALS (7 sets, daily range): BP systolic 90–140; BP diastolic 44–64; PULSE 55–70; RESP 14–20; TEMP 36–36.7; O2SAT 91–98
[2021-04-12] MEDS: oxyCODONE HCl Immed Release 5 MG TABLET PO ×3 (01:19→20:36)
[2021-04-12] MEDS: Heparin Sodium,Porcine 5,000 UNIT/ML VIAL 5000 UNIT SUBCUT ×2 (05:46→18:23)
[2021-04-12] MEDS: Fluticasone/Vilanterol 100/25 BLST.W.DEV 1 PUFF INHALE (07:27)
[2021-04-12 07:40] LABS: Anion Gap 16 (12-20); Blood Urea Nitrogen 51 mg/dL (9-16); Calcium 9.1 mg/dL (8.4-10.2); Carbon Dioxide 28 mmol/L (22-29); Chloride 96 mmol/L (96-108); Creatinine Clr Calc Pharmacy 26.9; Estimated Glomerular Filt Rate 28; Glucose Random 108 mg/dL (60-115); Potassium 4.2 mmol/L (3.3-5.1); Sodium 136 mmol/L (135-145)
[2021-04-12] MEDS: 0.9 % Sodium Chloride Flush 3 ML SYRINGE IVFLUSH (08:17)
[2021-04-12] MEDS: Lactated Ringers 1,000 ML 80 ML IVCONT ×2 (08:30→20:37)
[2021-04-12] MEDS: Atorvastatin Calcium 40 MG TABLET PO (08:31)
[2021-04-12] MEDS: Tamsulosin HCL 0.4 MG CAPSULE PO ×2 (08:31→20:35)
[2021-04-12] MEDS: Finasteride 5 MG TABLET PO (08:31)
[2021-04-12] MEDS: Bicalutamide 50 MG TABLET PO (08:31)
--- NOTE | 2021-04-12 11:07 | MHC.CM.PN ---
Per ROUNDS discussion, Patient is not yet medically cleared for dc (HTN/Nephrology following/ recent med adjustments). Home is the goal for dc and CM has initiated and will follow for possible need to adjust the dc plan.
--- NOTE | 2021-04-12 14:45 | HO.PM.IMPN ---
Subjective Subjective Date of Service: 04/12/21 Interval History: right groin pain Cardiovascular Cardiovascular: Reports no additional cardiovascular complaints Gastrointestinal Gastrointestinal: Reports no additional gastrointestinal complaints Physical Exam Vital Signs: Vital Signs: Last Vital Signs Temp 97.1 F 04/12/21 07:27 Pulse 55 04/12/21 07:27 Resp 14 04/12/21 07:27 BP 90/44 L 04/12/21 07:27 Pulse Ox 98 04/12/21 07:27 Body Mass Index 28.7 Const Other: Constitutional : Alert, oriented, headache has improved Neck : Normal inspection, Supple Cardiovascular : RRR, S1 S2, no lower extremity edema Respiratory : Good bilateral air entry, no crackles, wheezes or rhonchi, home 2 L of oxygen Gastrointestinal: soft, lax, Normal bowel sounds, Non tender Skin : Warm/Dry, No rash Neurological : Alert & oriented x3, No focal deficit Objective Data Current Medications Generic Name Dose Route Start Last Admin Trade Name Freq PRN Reason Stop Dose Admin Acetaminophen/Butalbital/Caffeine 1 tab 04/09/21 10:03 04/10/21 19:34 Butalb/Acetamin/Caff 50/325/40 Tablet PO 1 tab Q4H PRN Administration Headache Albuterol Sulfate 2 puff 04/09/21 07:00 Albuterol Sulfate 90 Mcg 8 Gm Inhaler INHALE Q2H PRN Shortness Of Breath Or Wheezing Atorvastatin Calcium 40 mg 04/09/21 09:00 04/12/21 08:31 Atorvastatin Calcium 40 Mg Tablet PO 40 mg DAILY DA Administration Bicalutamide 50 mg 04/09/21 09:00 04/12/21 08:31 Bicalutamide 50 Mg Tablet PO 50 mg DAILY DA Administration Docusate Sodium 100 mg 04/08/21 23:39 Docusate Sodium 100 Mg Capsule PO DAILY PRN Constipation Finasteride 5 mg 04/09/21 09:00 04/12/21 08:31 Finasteride 5 Mg Tablet PO 5 mg DAILY DA Administration Fluticasone/Vilanterol 1 puff 04/09/21 08:00 04/12/21 07:27 Fluticasone/Vilanterol 100/25 Blst.W.Dev INHALE 1 puff RDAILY DA Administration Heparin Sodium (Porcine) 5,000 unit 04/09/21 06:00 04/12/21 05:46 Heparin Sodium,Porcine 5,000 Unit/Ml Vial SUBCUT 5,000 unit Q12H DA Administration Lactated Ringer's 1,000 mls @ 80 mls/hr 04/12/21 08:00 04/12/21 08:30 Lr IVCONT 80 mls/hr .[id number] DA Administration Ondansetron HCl 4 mg 04/08/21 23:39 Ondansetron Hcl 4 Mg/2 Ml Vial IVPUSH Q8H PRN Nausea and Vomiting Sodium Chloride 3 ml 04/09/21 00:00 04/12/21 08:17 0.9 % Sodium Chloride Flush 3 Ml Syringe IVFLUSH 3 ml QSHIFT DA Administration Tamsulosin HCl 0.4 mg 04/09/21 09:00 04/12/21 08:31 Tamsulosin Hcl 0.4 Mg Capsule PO 0.4 mg BID DA Administration Labs CBC & Chem 7: 04/09/21 04:23 04/12/21 06:29 Labs: Laboratory Results - last 24 hr 04/12/21 06:29 Sodium 136 Potassium 4.2 Chloride 96 Carbon Dioxide 28 Anion Gap 16 BUN 51 H Creatinine 2.29 H Estim Creat Clear Calc 26.9 Estimated GFR 28 Random Glucose 108 Calcium 9.1 Quality Stroke Does the patient have a stroke diagnosis?: No VTE Prior VTE?: No VTE Risk Level:: Medical - moderate - high VTE Device Contraindication: Treatment Not Indicated VTE Drug Contraindication: N/A - Med Ordered Assessment and Plan (1) Hypertensive emergency: Status: Acute (2) Chest pain: Status: Acute (3) Elevated troponin: Status: Acute (4) Headache: Status: Acute Assessment and Plan: 80-year-old male with past medical history of hypertension presents to the hospital with headache. Found to have elevated blood pressure. patient's lisinopril was recently held due to antibiotic interaction RENAN likely hypoperfusion from low bp holding lasix, fermin/arb gentle hydration monitor no retention if no improvement will get nephro eval hypertensive emergency resolved, actually he developed hypotension monitor chest pain no EKG changes elevated troponin most likely secondary to hypertensive emergency continue aspirin monitor for any recurrent symptoms normal EF of 55-60% cardiology consulted; Outpatient myocardial perfusion imaging to be pursued to rule out significant obstructive coronary artery disease. headache secondary to elevated BP CT negative for any acute abnormality p.rsarwat Rose COPD not in exacerbation continue home inhalers CHF with preserved EF, chronic does not appear to be in exacerbation hodling lasix DVT prophylaxis Heparin subQ
[2021-04-12] MEDS: HYDROmorphone HCl 2 MG TABLET 1 MG PO (23:38)
[2021-04-13 03:53] VITALS: BP 117/57; PULSE 55; RESP 20; TEMP 36.6; O2SAT 98
[2021-04-13] MEDS: Heparin Sodium,Porcine 5,000 UNIT/ML VIAL 5000 UNIT SUBCUT (05:32)
[2021-04-13 06:03] LABS: Hematocrit 33.4 % (42-52); Hemoglobin 11.2 g/dl (14.0-18.0); Mean Corpuscular HGB Conc 33.5 g/dl (31.0-36.0); Mean Corpuscular Hemoglobin 32.1 pg (27.0-33.0); Mean Corpuscular Volume 95.7 fL (80-98); Mean Platelet Volume 10.6 fL (9.4-12.4); Platelet Count 280 X10*3/uL (160-400); Red Blood Count 3.49 X10*6/uL (4.60-5.80); Red Cell Distribution Width 12.3 % (11.0-16.0)
[2021-04-13 06:35] LABS: Anion Gap 16 (12-20); Blood Urea Nitrogen 54 mg/dL (9-16); Carbon Dioxide 24 mmol/L (22-29); Chloride 97 mmol/L (96-108); Creatinine Clr Calc Pharmacy 31.2; Estimated Glomerular Filt Rate 33; Glucose Fasting 95 mg/dL (60-99); Potassium 4.2 mmol/L (3.3-5.1); Sodium 133 mmol/L (135-145)
[2021-04-13 07:33] VITALS: BP 137/59; PULSE 59; RESP 20; TEMP 36.1; O2SAT 90
[2021-04-13 07:41] VITALS: PULSE 62; O2SAT 95
[2021-04-13] MEDS: Fluticasone/Vilanterol 100/25 BLST.W.DEV 1 PUFF INHALE (07:41)
[2021-04-13] MEDS: oxyCODONE HCl Immed Release 5 MG TABLET PO (08:30)
[2021-04-13] MEDS: Tamsulosin HCL 0.4 MG CAPSULE PO (08:30)
[2021-04-13] MEDS: Finasteride 5 MG TABLET PO (08:31)
[2021-04-13] MEDS: Bicalutamide 50 MG TABLET PO (08:31)
[2021-04-13] MEDS: Atorvastatin Calcium 40 MG TABLET PO (08:31)
--- NOTE | 2021-04-13 10:52 | P.DS_ITS ---
DS: Providers Provider Date of Service: 04/13/21 Date of admission: 04/08/21 23:23 Primary care physician: Jake Pepper MD Consults: 04/09/21 06:52 Consult to Cardiology Routine Consulting Provider: Manoj Motta Reason for consultation: elevated troponin Has provider been notified: Yes DS: Diagnosis Discharge Diagnosis (1) Hypertensive emergency: Status: Acute (2) Chest pain: Status: Acute (3) Elevated troponin: Status: Acute (4) Headache: Status: Acute (5) RENAN (acute kidney injury): Status: Acute DS: Medications Discharge Medications Home Medications: Home Medications Medication Instructions Recorded Confirmed albuterol sulfate 90 mcg/actuation 2 puff PO Q2H PRN 09/07/20 04/09/21 aerosol inhaler tamsulosin 0.4 mg capsule 0.4 mg PO BID 09/07/20 04/09/21 Previous Rx's Medication Instructions Recorded atorvastatin 40 mg tablet 40 mg PO DAILY #90 tab 07/22/20 fluticasone 250 mcg-salmeterol 50 1 ea PO BID #60 ea 10/18/20 mcg/dose blistr powdr for inhalation finasteride 5 mg tablet 5 mg PO DAILY 90 Days #90 tab 10/21/20 bicalutamide 50 mg tablet 50 mg PO DAILY 90 Days #90 tab 10/24/20 DS: Summary Hospital Course Hospital Course: patient was admitted for hypertensive urgency complicated by headache and troponin leak. he was initially started on amlodipine, aldactone and lisinopril was increased. he was seen by cardiology who recommended outpatient follow up for stress test. blood pressure then decreased significantly and patient had RENAN with creatinine of 2.29. blood pressure meds were then held and bp now normal at 137/59. patient feeling better, will be discharged off meds, but instructed to monitor BP closely, and follow up with PCP to guide restarting meds. at discharge creatinine slightly better at 1.98. he should repeat bmp in about one week. Time Spent with Patient Time attestation: Total time spent providing and/or coordinating discharge services: Discharge coordination time: Greater than 30 minutes Quality: Stroke Does the patient have a stroke diagnosis?: No Physical Exam Vital Signs: Vital Signs: Last Vital Signs Temp 97.0 F 04/13/21 07:33 Pulse 59 04/13/21 07:33 Resp 20 04/13/21 07:33 BP 137/59 L 04/13/21 07:33 Pulse Ox 90 L 04/13/21 07:33 Body Mass Index 28.7 General: AO X 3, no acute distress Resp: CTA bilateral CVS: S1,S2,RRR GI: soft, non tender, non distended Neuro: motor grossly intact Psych: appropriate affect DS: Data Data Completed and Pending Labs on day of discharge: Laboratory Results - last 24 hr 04/13/21 04/13/21 05:28 05:28 WBC 10.0 RBC 3.49 L Hgb 11.2 L Hct 33.4 L MCV 95.7 MCH 32.1 MCHC 33.5 RDW 12.3 Plt Count 280 MPV 10.6 Absolute Nucleated RBC 0.000 Nucleated RBC % (auto) 0.0 Sodium 133 L Potassium 4.2 Chloride 97 Carbon Dioxide 24 Anion Gap 16 BUN 54 H Creatinine 1.98 H Estim Creat Clear Calc 31.2 Estimated GFR 33 Fasting Glucose 95 Calcium 9.0 Discharge Plan Discharge Patient Disposition: Home, Self-Care Discharge Diagnosis: htn, renan Referrals: Jake Pepper MD [Primary Care Provider] - 1 Week Discharge Medications: Continued atorvastatin 40 mg tablet 40 mg PO DAILY Qty: 90 RF: 2 fluticasone propion-salmeterol [Wixela Inhub] 250-50 mcg/dose blister with device 1 ea PO BID Qty: 60 RF: 3 finasteride 5 mg tablet 5 mg PO DAILY 90 Days Qty: 90 RF: 2 bicalutamide 50 mg tablet 50 mg PO DAILY 90 Days Qty: 90 RF: 2 tamsulosin 0.4 mg capsule 0.4 mg PO BID RF: 0 albuterol sulfate 90 mcg/actuation HFA aerosol inhaler 2 puff PO Q2H PRN (Reason: Shortness Of Breath Or Wheezing) RF: 0 Discontinued lisinopril-hydrochlorothiazide 20-12.5 mg tablet 1 tab PO DAILY Qty: 30 RF: 6 furosemide 20 mg tablet 20 mg PO DAILY 90 Days Qty: 90 RF: 1 oxybutynin chloride 5 mg tablet extended release 24hr 5 mg PO DAILY RF: 0 Discharge Orders: Discharge Order (Routine); Ordered 04/13/21 Ordered By: Sahil Martines Diet: advance to usual diet Activity on Discharge: As tolerated Stand Alone Forms: Patient Portal Discharge page Other Ambulatory Orders: Basic Metabolic Panel (Routine) Timeframe: 1 Week Facility: [facility] - Location: Laboratory Ordered By: Sahil Martines Care Plan Goals: recovery Health Concerns: renan, htn and hypotension Plan of Treatment: hold blood pressure medications for now, check blood pressures a couple times per day until PCP appointment to determine proper dosing. check labs in about one week. Assessment: see above
--- NOTE | 2021-04-13 10:55 | MHC.CM.PN ---
Patient has been medically cleared for dc to home today, no services. Second IMM addressed with Patient at bedside and original has been given to him and a copy has been placed on the chart. Patient is very pleased to be going home.
== END 2021-04-13 11:28 | disposition home or self-care (01) | DRG 281 ==
LOC: HO.ED 04-09 01:42 → HO.IMC 04-09 07:56 → HO.EDOVER 04-12 09:37 → HO.IMC 04-12 09:37
PROVIDERS: Student in an Organized Health Care Education/Training Program; Admitting Provider Internal Medicine; Emergency Provider Internal Medicine; PCP Internal Medicine; Visit Provider Internal Medicine
DX: I16.1 Hypertensive emergency (principal); I21.A1 Myocardial infarction type 2; N17.9 Acute kidney failure, unspecified; I50.32 Chronic diastolic (congestive) heart failure; I11.0 Hypertensive heart disease with heart failure; I95.9 Hypotension, unspecified; J44.9 Chronic obstructive pulmonary disease, unspecified; Z20.822 Contact with and (suspected) exposure to COVID-19; Z87.891 Personal history of nicotine dependence; Z79.52 Long term (current) use of systemic steroids; Z79.899 Other long term (current) drug therapy
CPT/HCPCS: 36415; 70450; 80048; 81001; 83880; 84484; 85025; 85027; 85610; 85730; 87635; 93005; 93306; 93970; 99219; 99285; J2270; Q9957

== ENCOUNTER → 2021-04-18 09:45 | Outpatient (REF) | payer MEDICARE, SELFPAY ==
--- NOTE | ~2021-04-18 | NM_ITS ---
Lexiscan Myocardial perfusion study Indication: Elevated troponins, hypertension, assess for coronary disease and ischemia Technique: The patient was brought in for a Lexiscan perfusion study on 04/18/2021 and was injected 0.4 mg of Lexiscan intravenously. Within a minute of this injection 30 mCi of sestamibi was given intravenously. Images were obtained using the SPECT gamma camera interlaced with the gating device. Images were obtained in supine position. Resting perfusion study was performed on 04/19/2021. Patient was administered 30 mCi of sestamibi intravenously at rest. Images were then obtained in supine position. Total DLP 142mGy-cm. Images were processed with the software and compared side to side in short axis, horizontal long axis and vertical long axis views. Findings: Raw acquisition was reviewed. Arms by the patient's side. The stress perfusion study showed no significant perfusion abnormality. Both uncorrected as well as CT attenuation corrected images were reviewed. The gated study shows normal LV systolic function with calculated LVEF of 58%. LV cavity is normal in size. The gated study shows normal wall thickening and contraction of segments. Resting study shows no significant perfusion abnormality. Gating at rest reveals normal wall motion with ejection fraction at 67%. The findings are consistent with no reversible or fixed perfusion abnormality. NM/NM latesha perf SPECT rest & str Impression: 1. Myocardial perfusion imaging study shows normal myocardial perfusion. No evidence of any ischemia or infarction. 2. Gated LVEF is 58% during stress. 67% during rest. 3. Transient ischemic dilatation not present. EKG component of the test reported separately.
--- NOTE | 2021-04-18 09:48 | CA_ITS ---
Acquisition Time: 2021-04-18 09:55:31 Total Exercise Time: 00:02:00 Test Indications: COPD Medications: SEE CHART Protocol: LEXISCAN Max HR: 086 BPM 60% of Pred: 141 BPM Max BP: 162/080 mmHG Max Work Load: 1.0 METS Pharmacological stress test using Lexiscan while sitting and kicking his feet. Pt tolerated well. Denies any anginal sx. EKG with occ. PAC's, non-diagnostic for ischemia. Nuclear images to follow. BP elevated this morning. Test reviewed with Dr. Motta. Referred By: Manoj Motta Overread By: Geno Garcia NP
== END ==
LOC: HO.CARD 09:45
PROVIDERS: Visit Provider Internal Medicine Cardiovascular Disease
DX: I16.1 Hypertensive emergency (principal); J44.9 Chronic obstructive pulmonary disease, unspecified; R77.8 Other specified abnormalities of plasma proteins
CPT/HCPCS: 78452; 93017; A9500; J0280; J2785

== ENCOUNTER → 2021-04-24 11:07 | Outpatient (BNVA) | payer MEDICARE, SELFPAY | PROVIDERS: PCP Internal Medicine; Referring Provider Internal Medicine; Visit Provider Internal Medicine Cardiovascular Disease | DX: I10 Essential (primary) hypertension (principal) | CPT/HCPCS: 99212 ==

== ENCOUNTER → 2021-05-02 10:09 | Outpatient (BNVA) | payer MEDICARE, SELFPAY | PROVIDERS: PCP Internal Medicine; Visit Provider Urology | DX: C61 Malignant neoplasm of prostate (principal) | CPT/HCPCS: 96402; 99212; J9217 ==

== ENCOUNTER → 2021-05-15 10:05 | Outpatient (BNVA) | payer MEDICARE, SELFPAY | PROVIDERS: PCP Internal Medicine; Referring Provider Internal Medicine; Visit Provider Internal Medicine Cardiovascular Disease ==

== ENCOUNTER → 2021-06-13 08:54 | Outpatient (BNVA) | payer MEDICARE, SELFPAY | PROVIDERS: PCP Internal Medicine; Visit Provider Internal Medicine Pulmonary Disease | DX: J44.9 Chronic obstructive pulmonary disease, unspecified (principal); R91.8 Other nonspecific abnormal finding of lung field | CPT/HCPCS: 99212 ==

== ENCOUNTER → 2021-07-24 10:50 | Outpatient (BNVA) | payer MEDICARE, SELFPAY | PROVIDERS: PCP Internal Medicine; Referring Provider Internal Medicine; Visit Provider Internal Medicine Cardiovascular Disease | DX: I10 Essential (primary) hypertension (principal) | CPT/HCPCS: 99212 ==

== ENCOUNTER 2021-07-27 10:24 | Outpatient (REF) | payer MEDICARE, SELFPAY ==
[2021-07-27 12:35] LABS: Prostate Specific Antigen < 0.05 ng/mL (<0.05-4.0)
[2021-08-06 10:47] LABS: Testosterone, Total 15 ng/dL (250-1100)
== END 2021-07-27 10:25 | disposition home or self-care (01) ==
LOC: HO.HMGCLDS 10:24
PROVIDERS: PCP Internal Medicine; Visit Provider Urology
DX: C61 Malignant neoplasm of prostate (principal); N13.8 Other obstructive and reflux uropathy; N40.1 Benign prostatic hyperplasia with lower urinary tract symptoms
CPT/HCPCS: 36415; 84153; 84403

== ENCOUNTER → 2021-08-02 08:19 | Outpatient (BNVA) | payer MEDICARE, SELFPAY | PROVIDERS: PCP Internal Medicine; Visit Provider Urology | DX: C61 Malignant neoplasm of prostate (principal) | CPT/HCPCS: Q3014 ==

== ENCOUNTER 2021-08-08 10:20 | Outpatient (REF) | payer MEDICARE, SELFPAY ==
[2021-08-12 12:02] LABS: Testosterone, Free 1.6 pg/mL (30.0-135.0); Testosterone, Total 17 ng/dL (250-1100)
== END 2021-08-08 10:21 | disposition home or self-care (01) ==
LOC: HO.LNP 10:20
PROVIDERS: Visit Provider Internal Medicine
DX: E29.1 Testicular hypofunction (principal)
CPT/HCPCS: 84402; 84403

== ENCOUNTER 2021-10-24 10:32 | Outpatient (REF) | payer MEDICARE, SELFPAY ==
[2021-10-24 12:14] LABS: Prostate Specific Antigen < 0.05 ng/mL (<0.05-4.0)
[2021-10-29 09:56] LABS: Testosterone, Total 2 ng/dL (250-1100)
== END 2021-10-24 10:33 | disposition home or self-care (01) ==
LOC: HO.HMGCLDS 10:32
PROVIDERS: PCP Internal Medicine; Visit Provider Urology
DX: Z12.5 Encounter for screening for malignant neoplasm of prostate (principal); C61 Malignant neoplasm of prostate
CPT/HCPCS: 36415; 84153; 84403

== ENCOUNTER → 2021-10-31 10:49 | Outpatient (BNVA) | payer MEDICARE, SELFPAY | PROVIDERS: PCP Internal Medicine; Visit Provider Urology | DX: C61 Malignant neoplasm of prostate (principal) | CPT/HCPCS: 99212 ==

== ENCOUNTER 2021-11-29 09:07 | Observation (INO) | payer MEDICARE, SELFPAY ==
--- NOTE | ~2021-11-29 | XR_ITS ---
EXAMINATION: XR CHEST CLINICAL INFORMATION: Dizziness COMPARISON: Previous chest x-ray most recent October 2019 TECHNIQUE: Frontal view of the chest was obtained. FINDINGS: The cardiac and mediastinal contours are stable. There is minimal subsegmental atelectasis in the left peripheral midlung. The lungs are otherwise clear. There is no pleural effusion or pneumothorax. There are mild degenerative changes of the spine and shoulders. XR/XR chest 1V IMPRESSION: Subsegmental atelectasis at the left lung base.
--- NOTE | ~2021-11-29 | CT_ITS ---
EXAMINATION: CT HEAD WITHOUT CONTRAST CLINICAL INFORMATION: Dizziness COMPARISON: Previous head CT most recent April 2021 and brain MRI from earlier the same day TECHNIQUE: Contiguous axial imaging was performed from the skull base to vertex without intravenous administration of contrast. This CT examination was performed using dose optimization techniques as appropriate, variously including the following: *Automated exposure control *Adjustment of mA and/or kV according to patient size (this includes techniques or standardized protocols for targeted exams where dose is matched to indication/reason for exam; i.e. extremities or head) *Use of iterative reconstruction technique DLP: 782 mGy-cm FINDINGS: There is no evidence of an extra-axial collection. There is no evidence of intra-axial or extra-axial hemorrhage. The ventricles and extra-axial CSF spaces are slightly prominent compatible of age related changes. There is nonspecific periventricular white matter disease. No mass, mass effect or infarct is seen. Review at bone windows is normal. No skull fracture is seen. Paranasal sinuses, mastoid air cells and middle ears are clear. CT/CT head/brain wo con IMPRESSION: No acute findings. No change from previous exams.
--- NOTE | ~2021-11-29 | MR_ITS ---
MRI OF THE BRAIN WITHOUT IV CONTRAST INDICATION: Dizziness. Rule out posterior fossa stroke. COMPARISON: Head CT 04/08/2021. TECHNIQUE: Multiplanar multisequence MR imaging of the brain was obtained without IV contrast. FINDINGS: There is advanced chronic microangiopathy. There is no hydrocephalus, extra-axial surface collection, or herniation. The major flow voids at the skull base are preserved. There is no acute infarct on diffusion-weighted imaging. There is no intracranial hemorrhage on the gradient recalled echo acquisition. Empty sella. The cerebellar tonsils are normally positioned. The cerebellum and brainstem are normal. The craniocervical junction is normal. Osseous marrow signal intensity is homogenous. The visualized soft tissues are unremarkable. MR/MR head/brain wo con IMPRESSION: - No acute intracranial findings. No acute infarcts. - Advanced chronic microangiopathy.
[2021-11-29 09:13] VITALS: BP 181/80; BP 182/102; PULSE 63; PULSE 70; RESP 18; TEMP 36.4; O2SAT 94; O2SAT 97; BMI 29.6
--- NOTE | 2021-11-29 09:41 | ECG_ITS ---
Test Reason : dizziness Blood Pressure : / mmHG Vent. Rate : 059 BPM Atrial Rate : 059 BPM P-R Int : 172 ms QRS Dur : 086 ms QT Int : 376 ms P-R-T Axes : 089 055 098 degrees QTc Int : 372 ms Sinus bradycardia with Premature atrial complexes Cannot rule out Inferior infarct , age undetermined T wave abnormality, consider lateral ischemia Abnormal ECG When compared with ECG of 08-APR-2021 21:37, Premature atrial complexes are now Present Referred By: Sherley Juarez Electronically Signed By:LUIS MANUEL ALMEIDA
--- NOTE | 2021-11-29 09:44 | ED_ITS ---
HPI - Dizziness General Chief Complaint: Dizziness Stated Complaint: NAUSEA,DIZZINESS Time Seen by Provider: 11/29/21 09:41 Source: patient and EMS Mode of arrival: EMS Limitations: no limitations History of Present Illness HPI Narrative: 81-year-old male came in for evaluation of being dizzy. Symptoms started at 04:00 when patient woke up to go to the bathroom found himself very dizzy and the room is spinning, patient felt nauseous and dry heaving, otherwise patient declined any weakness or numbness, no visual disturbance, patient had recent left ear cleaning by his PCP, been having hearing disturbance out of the 2 ears. Patient also complaining of nausea, vomiting, loose stool x3 times, no recent travel, no recent use of antibiotics, no recent ingestion of bad food, no other sickness around the patient. Related Data Home Medications Medication Instructions Recorded Confirmed albuterol sulfate 90 mcg/actuation 2 puff PO Q2H PRN 09/07/20 07/24/21 aerosol inhaler tamsulosin 0.4 mg capsule 0.4 mg PO BID 09/07/20 07/24/21 amlodipine 2.5 mg tablet 2.5 mg PO DAILY 08/02/21 oxybutynin chloride 5 mg tablet 5 mg PO DAILY 08/02/21 zolpidem 10 mg tablet 10 mg PO BEDTIME PRN 08/02/21 Previous Rx's Medication Instructions Recorded fluticasone 250 mcg-salmeterol 50 1 ea PO BID #60 ea 06/23/21 mcg/dose blistr powdr for inhalation (Wixela Inhub) atorvastatin 40 mg tablet 40 mg PO DAILY #90 tab 07/12/21 finasteride 5 mg tablet 5 mg PO DAILY 90 Days #90 tab 07/31/21 amlodipine 5 mg tablet 5 mg PO DAILY #90 tab 10/09/21 carvedilol 3.125 mg tablet 3.125 mg PO BID #60 tab 11/13/21 Allergies Allergy/AdvReac Type Severity Reaction Status Date / Time pneumococcal vaccine Allergy Intermediate RASH Verified 08/02/21 08:30 [PNEUMOCOCCAL VACCINE] Review of Systems Review of Systems: All other systems are reviewed and are negative Constitutional: Reports as per HPI and Reports no additional constitutional complaints Eyes: Reports as per HPI and Reports no additional eye complaints Reports system reviewed and no additional complaints, except as documented Cardiovascular: Reports as per HPI and Reports no additional cardiovascular complaints Respiratory: Reports as per HPI and Reports no additional respiratory complaints Gastrointestinal: Reports as per HPI and Reports no additional gastrointestinal complaints Genitourinary: Reports no additional female genitourinary complaints Musculoskeletal: Reports no additional musculoskeletal complaints Skin/Breast: Reports system reviewed and no additional complaints, except as docu Psychiatric: Reports no additional psychiatric complaints Endocrine: Reports no additional endocrine complaints Hematologic/Lymphatic: Reports no additional hematologic/lymphatic complaints Allergic/Immunologic: Reports no additional allergic/immunologic complaints Reports system reviewed and no additional complaints, except as documented and Reports Abnormal speech present [facility] Past Medical History Medical History COPD (chronic obstructive pulmonary disease) Essential hypertension Gout High cholesterol Hypertension Prostate cancer Pulmonary nodules Surgical History History of spinal surgery Family History Family History Father No problems noted. Mother No problems noted. Social History Social History Alcohol intake: current Alcohol intake frequency: does not drink Alcohol type: wine Patient Tobacco Use Status: Former Tobacco user Quit Date: 2015 Years Smoked: 60 yrs Second Hand Smoke Exposure: No Use of substances other than those prescribed or required for medical reasons: No Advance Directives: Yes Advance Directives Information Provided: No Advance Directives on File: No Current occupational status: retired Physical Exam Vital Signs: Vital Signs: Last Vital Signs Temp 98.1 F 11/29/21 14:14 Pulse 68 11/29/21 14:14 Resp 20 11/29/21 14:14 BP 140/63 H 11/29/21 14:14 Pulse Ox 94 11/29/21 14:14 BMI result Body Mass Index 29.6 Vital signs have been reviewed as appeared to be correct. Blood pressure elevated. Heart rate normal. Respiration rate normal. Temperature normal. Oxygen saturation normal. Appearance: Alert. Oriented X3. No acute distress. Head: Normal external exam. Normocephalic. Atraumatic. No [place]osa signs noted. No raccoon eyes noted Eyes: PERRLA. EOMI. Conjunctiva and sclera normal. Eyelids normal. ENT: TM's Normal. Pharynx normal. Uvula midline. Moist mucous membranes. No trismus noted. No drooling noted. No muffled voice noted. Neck: Normal inspection. Neck supple. FROM. No adenopathy. Thyroid Normal. No meningeal signs. No neck mass noted. CVS: Normal heart rate and rhythm. Heart sound normal. No murmurs noted. Pulses normal throughout. Respiratory: No respiratory distress. Painless inspiration. Breath sounds normal. No wheezes/rales/rhonchi noted. Chest nontender. No accessory muscle usage noted or decreased air movement noted. Abdomen: Soft and nontender. Bowel sounds normal in all 4 quadrants. No distention noted. No organomegaly noted. No visible injury noted. Back: No CVA tenderness. Full range of motion noted. Skin: Skin warm and dry. Normal skin color. Normal skin turgor. No rashes/lesions/lacerations noted. Extremities: No lower extremity edema. Extremities exhibit normal range of motion. Extremities nontender. Neuro: Oriented X 3. Cranial nerve exam: II-XII are grossly intact No motor deficit. No sensory deficit. Reflexes normal. Normal finger to nose exam without dysmetria. NIH Stroke Scale Internal: Initial- Upon Arrival Level of Consciousness: Alert Level of Consciousness Questions: Answers both questions correctly Level of Consciousness Commands: Performs both tasks correctly Best Gaze: Normal Visual: No visual loss Facial Palsy: Normal Motor Arm (Right): No drift Motor Arm (Left): No drift Motor Leg (Right): No drift Motor Leg (Left): No drift Limb Ataxia: Absent Sensory: Normal Best Language: No aphasia Dysarthia: Normal Extinction and Inattention: No abnormality Score: 0 Course Course Course Narrative: Assessment and plan. 81-year-old male came in with severe vertigo and nausea vomiting, patient had a CT/MRI of the brain showed no central sterile and cheerful seen causing his symptoms, despite aggressive treatment with benzo and antevert and antiemetic medication patient. Patient still symptoms. Will admit the patient for aggressive treatment. Leukocytosis of unclear etiology, patient has no UTI symptoms unable to give u rine in the ED. MDM - Dizziness Lab Data Attestation: I reviewed the patient's lab results. Result diagrams: 11/29/21 10:56 11/29/21 10:56 Labs: Lab Results 11/29/21 11/29/21 11/29/21 Range/Units 10:56 10:56 10:56 WBC 17.6 H (4.8-10.8) X10*3/uL RBC 4.16 L (4.60-5.80) X10*6/uL Hgb 13.4 L (14.0-18.0) g/dl Hct 41.5 L (42.0-52.0) % MCV 99.8 H (80.0-98.0) fL MCH 32.2 (27.0-33.0) pg MCHC 32.3 (31.0-36.0) g/dl RDW 13.3 (11.0-16.0) % Plt Count 193 (160-400) X10*3/uL MPV 10.6 (9.4-12.4) fL Immature Gran % (Auto) 0.4 (0.0-0.4) % Neut % (Auto) 76.6 H (45-73) % Lymph % (Auto) 13.3 L (20-40) % [place] % (Auto) 8.0 (2-11) % Eos % (Auto) 1.3 (0-4) % Baso % (Auto) 0.4 (0-2) % Lymph # (Auto) 2.3 (1.2-4.9) X10*3/uL [place] # (Auto) 1.4 H (0.1-1.2) X10*3/uL Eos # (Auto) 0.2 (0.0-0.4) X10*3/uL Baso # (Auto) 0.1 (0.0-0.2) X10*3/uL Abs Immat Gran (auto) 0.07 H (0.00-0.03) X10*3/uL Absolute Neuts (auto) 13.5 H (2.0-8.3) x10*3/uL Absolute Nucleated RBC 0.000 (0.0-0.012) X10*3/uL Nucleated RBC % (auto) 0.0 (0.0-0.2) /100WBC Sodium 139 (135-145) mmol/L Potassium 4.1 (3.3-5.1) mmol/L Chloride 99 (96-108) mmol/L Carbon Dioxide 33 H (22-29) mmol/L Anion Gap 11 L (12-20) BUN 26 H (9-16) mg/dL Creatinine 1.00 (0.5-1.4) mg/dL Estim Creat Clear Calc 61.6 Estimated GFR > 60 Random Glucose 125 H (60-115) mg/dL Calcium 9.3 (8.4-10.2) mg/dL Total Bilirubin 0.6 (0.0-1.0) mg/dL Direct Bilirubin 0.2 (0.0-0.5) mg/dL AST 21 (5-37) U/L ALT 28 (0-40) U/L Alkaline Phosphatase 85 (39-117) U/L Troponin I High Sens 12.7 (<3.5-35.0) ng/L B-Natriuretic Peptide 94 (<100) pg/mL Total Protein 6.8 (6.5-8.0) g/dL Albumin 4.0 (3.5-5.0) g/dL Lipase 20 (8-78) U/L COVID-19 (JENNA) (Negative) COVID-19 Clin Com 11/29/21 Range/Units 10:56 WBC (4.8-10.8) X10*3/uL RBC (4.60-5.80) X10*6/uL Hgb (14.0-18.0) g/dl Hct (42.0-52.0) % MCV (80.0-98.0) fL MCH (27.0-33.0) pg MCHC (31.0-36.0) g/dl RDW (11.0-16.0) % Plt Count (160-400) X10*3/uL MPV (9.4-12.4) fL Immature Gran % (Auto) (0.0-0.4) % Neut % (Auto) (45-73) % Lymph % (Auto) (20-40) % [place] % (Auto) (2-11) % Eos % (Auto) (0-4) % Baso % (Auto) (0-2) % Lymph # (Auto) (1.2-4.9) X10*3/uL [place] # (Auto) (0.1-1.2) X10*3/uL Eos # (Auto) (0.0-0.4) X10*3/uL Baso # (Auto) (0.0-0.2) X10*3/uL Abs Immat Gran (auto) (0.00-0.03) X10*3/uL Absolute Neuts (auto) (2.0-8.3) x10*3/uL Absolute Nucleated RBC (0.0-0.012) X10*3/uL Nucleated RBC % (auto) (0.0-0.2) /100WBC Sodium (135-145) mmol/L Potassium (3.3-5.1) mmol/L Chloride (96-108) mmol/L Carbon Dioxide (22-29) mmol/L Anion Gap (12-20) BUN (9-16) mg/dL Creatinine (0.5-1.4) mg/dL Estim Creat Clear Calc Estimated GFR Random Glucose (60-115) mg/dL Calcium (8.4-10.2) mg/dL Total Bilirubin (0.0-1.0) mg/dL Direct Bilirubin (0.0-0.5) mg/dL AST (5-37) U/L ALT (0-40) U/L Alkaline Phosphatase (39-117) U/L Troponin I High Sens (<3.5-35.0) ng/L B-Natriuretic Peptide (<100) pg/mL Total Protein (6.5-8.0) g/dL Albumin (3.5-5.0) g/dL Lipase (8-78) U/L COVID-19 (JENNA) Negative (Negative) COVID-19 Clin Com See Note Imaging Data Head CT: Attestation: I personally reviewed and interpreted this imaging study as follows: Radiologist's impression: No acute finding. Brain MRI: Attestation: I personally reviewed and interpreted this imaging study as follows: Radiologist's impression: No acute intracranial finding, no acute infarcts. Chest x-ray: Attestation: I personally reviewed and interpreted this imaging study as follows: Radiologist's impression: Subsegmental atelectasis at the left lung base. ECG Data Attestation: I personally reviewed and interpreted this ECG as follows: Interpretation: Sinus rhythm at 59 beats per minutes, normal axis deviation, normal intervals nonspecific T-wave inversion and flattening in V4, V5, V6 Discharge Plan Discharge Clinical Impression: Vertigo, Leukocytosis Patient Disposition: Admitted As Inpatient Prescriptions: No Action fluticasone propion-salmeterol [Wixela Inhub] 250-50 mcg/dose blister with device 1 ea PO BID Qty: 60 3RF atorvastatin 40 mg tablet 40 mg PO DAILY Qty: 90 3RF finasteride 5 mg tablet 5 mg PO DAILY 90 Days Qty: 90 3RF amlodipine 5 mg tablet 5 mg PO DAILY Qty: 90 1RF carvedilol 3.125 mg tablet 3.125 mg PO BID Qty: 60 3RF Rx Instructions: must administer with a meal/food tamsulosin 0.4 mg capsule 0.4 mg PO BID 0RF albuterol sulfate 90 mcg/actuation HFA aerosol inhaler 2 puff PO Q2H PRN (Reason: Shortness Of Breath Or Wheezing) 0RF Label Comments: pt is unable to recall his medications
[2021-11-29] MEDS: Meclizine HCl 25 MG TABLET PO ×3 (09:54→19:51)
[2021-11-29] MEDS: LORazepam 2 MG/ML VIAL 1 MG IVPUSH ×2 (09:55→15:00)
[2021-11-29] MEDS: ondansetron HCL 4 MG/2 ML VIAL IVPUSH (09:55)
[2021-11-29 10:59] VITALS: BP 142/57; PULSE 58; RESP 14; O2SAT 93
[2021-11-29] MEDS: 0.9 % Sodium Chloride 1,000 ML 999 ML IV (10:59)
[2021-11-29 11:00] LABS: MANUAL DIFF FLAG NO
[2021-11-29 11:02] LABS: Basophils Absolute Auto 0.1 X10*3/uL (0.0-0.2); Basophils Percent Auto 0.4 % (0-2); Eosinophils Absolute Auto 0.2 X10*3/uL (0.0-0.4); Eosinophils Percent Auto 1.3 % (0-4); Hematocrit 41.5 % (42.0-52.0); Hemoglobin 13.4 g/dl (14.0-18.0); Imm Gran Abs Auto 0.07 X10*3/uL (0.00-0.03); Imm Gran Pct Auto 0.4 % (0.0-0.4); Lymphocytes Absolute Auto 2.3 X10*3/uL (1.2-4.9); Lymphocytes Percent Auto 13.3 % (20-40); Mean Corpuscular HGB Conc 32.3 g/dl (31.0-36.0); Mean Corpuscular Hemoglobin 32.2 pg (27.0-33.0); Mean Corpuscular Volume 99.8 fL (80.0-98.0); Mean Platelet Volume 10.6 fL (9.4-12.4); Monocytes Absolute Auto 1.4 X10*3/uL (0.1-1.2); Neutrophils Absolute Auto 13.5 x10*3/uL (2.0-8.3); Neutrophils Percent Auto 76.6 % (45-73); Platelet Count 193 X10*3/uL (160-400); Red Blood Count 4.16 X10*6/uL (4.60-5.80); Red Cell Distribution Width 13.3 % (11.0-16.0); White Blood Count 17.6 X10*3/uL (4.8-10.8)
[2021-11-29 11:16] LABS: COVID-19 Test Negative (Negative); IDNOW Serial# 55D5AD1C
[2021-11-29 11:17] LABS: Alanine Aminotransferase 28 U/L (0-40); Alkaline Phosphatase 85 U/L (39-117); Anion Gap 11 (12-20); Aspartate Amino Transferase 21 U/L (5-37); Bilirubin Direct 0.2 mg/dL (0.0-0.5); Bilirubin Total 0.6 mg/dL (0.0-1.0); Blood Urea Nitrogen 26 mg/dL (9-16); Calcium 9.3 mg/dL (8.4-10.2); Carbon Dioxide 33 mmol/L (22-29); Chloride 99 mmol/L (96-108); Creatinine Clr Calc Pharmacy 61.6; Estimated Glomerular Filt Rate > 60; Glucose Random 125 mg/dL (60-115); Lipase 20 U/L (8-78); Potassium 4.1 mmol/L (3.3-5.1); Sodium 139 mmol/L (135-145); Total Protein 6.8 g/dL (6.5-8.0)
[2021-11-29 11:25] LABS: B Type Natriuretic Peptide 94 pg/mL (<100); Troponin-I High Sensitivity 12.7 ng/L (<3.5-35.0)
[2021-11-29 14:14] VITALS: BP 140/63; PULSE 68; RESP 20; TEMP 36.7; O2SAT 94
--- NOTE | 2021-11-29 15:00 | PM.IMHP ---
History of Present Illness Date of Service: 11/29/21 Chief Complaint: Dizziness, unsteady on his feet an 81 years old with PMH of HTN, COPD, CAD, prostate CA among others who presents to the hospital complaining of sudden onset feeling of dizziness and unsteadiness in his feet. The patient reports that he woke up this morning try to leave the bed 20 notice that the room is spinning and he could not stand as he developed nausea and dry heaving. He denies any headache, chest pain, double vision, palpitation, change in bowel habit or urinary symptoms. He reports this is the 1st time his going through something similar to this. In the emergency he had images of the brain including CT scan and MRI which both were negative for any acute findings. Rajani-Hallpike maneuver was done by emergency physician with mild improvement in the symptoms. Patient tried to move in the emergency with he was too risky and unsteady on his feet.Admitted for observation. Review of Systems Review of Systems: No fever, chills But reported dizziness, sense of nausea and dry heaves. No chest pain, palpitation No shortness of breath or coughing No abdominal pain, nausea or vomiting No urinary symptoms No any rash or wounds PMFSH Medical History COPD (chronic obstructive pulmonary disease) Essential hypertension Gout High cholesterol Hypertension Prostate cancer Pulmonary nodules Family History Father No problems noted. Mother No problems noted. Surgical History History of spinal surgery Social History Alcohol intake: current Alcohol intake frequency: does not drink Alcohol type: wine Patient Tobacco Use Status: Former Tobacco user Quit Date: 2016 Years Smoked: 60 yrs Second Hand Smoke Exposure: No Use of substances other than those prescribed or required for medical reasons: No Advance Directives: No Advance Directives Information Provided: No Advance Directives on File: No service: Yes Current occupational status: retired Meds Allergies Allergy/AdvReac Type Severity Reaction Status Date / Time pneumococcal vaccine Allergy Intermediate RASH Verified 08/02/21 08:30 [PNEUMOCOCCAL VACCINE] Active Medications: Current Medications Acetaminophen (Acetaminophen 325 Mg Tablet) 650 mg PO Q6H PRN PRN Reason: Pain, Mild (Pain Scale 1-3) Enoxaparin Sodium (Enoxaparin Sodium 40 Mg/0.4 Ml Syringe) 40 mg SUBCUT Q24H DA Lorazepam (Lorazepam 2 Mg/Ml Vial) 0.5 mg IVPUSH Q6H PRN PRN Reason: Vertigo Meclizine HCl (Meclizine Hcl 25 Mg Tablet) 25 mg PO TID DA Ondansetron HCl (Ondansetron Hcl 4 Mg/2 Ml Vial) 4 mg IVPUSH Q8H PRN PRN Reason: Nausea and Vomiting Pharmacy Consult (Consult Rx Perform Med Rec) 1 each MISCELLANE ONCE PRN PRN Reason: Consult order Sodium Chloride (0.9 % Sodium Chloride Flush 3 Ml Syringe) 3 ml IVFLUSH QSHIFT [facility] Home Medications Medication Instructions Recorded Confirmed Last Taken Type albuterol sulfate 90 mcg/actuation 2 puff PO Q2H PRN 09/07/20 11/29/21 11/29/21 History aerosol inhaler tamsulosin 0.4 mg capsule 0.4 mg PO BID 09/07/20 11/29/21 11/29/21 History amlodipine 2.5 mg tablet 2.5 mg PO DAILY 08/02/21 11/29/21 11/29/21 History oxybutynin chloride 5 mg tablet 5 mg PO BEDTIME 08/02/21 11/29/21 11/28/21 History aspirin 81 mg tablet,delayed 81 mg PO DAILY 11/29/21 11/29/21 11/29/21 History release atorvastatin 40 mg tablet 40 mg PO BEDTIME 11/29/21 11/29/21 11/28/21 History finasteride 5 mg tablet 5 mg PO BEDTIME 11/29/21 11/29/21 11/28/21 History fluticasone 250 mcg-salmeterol 50 1 puff PO BID 11/29/21 11/29/21 11/29/21 History mcg/dose blistr powdr for inhalation (Charity Winters) Physical Exam Vital Signs and Narrative: Vital Signs: Last Vital Signs Temp 98.1 F 11/29/21 14:14 Pulse 68 11/29/21 14:14 Resp 20 11/29/21 14:14 BP 140/63 H 11/29/21 14:14 Pulse Ox 94 11/29/21 14:14 BMI result Body Mass Index 29.6 Const: Other: Constitutional : Alert, oriented, mildly anxious from dizziness, closing his eyes Eyes: horizontal nystagmus bilaterally, no double vision reported Neck : Normal inspection, Supple Cardiovascular : RRR, S1 S2, no lower extremity edema Respiratory : Good bilateral air entry, no crackles Gastrointestinal: soft, lax, Normal bowel sounds, Non tender Skin : Warm, Dry Neurological : Alert & oriented x3, No focal deficit Results Labs CBC and Chem 7: 11/30/21 05:28 11/30/21 05:28 Labs: Laboratory Results - last 24 hr 11/29/21 11/29/21 11/29/21 10:56 10:56 10:56 MCV 99.8 H MCH 32.2 MCHC 32.3 RDW 13.3 Plt Count 193 MPV 10.6 Immature Gran % (Auto) 0.4 Neut % (Auto) 76.6 H Lymph % (Auto) 13.3 L [place] % (Auto) 8.0 Eos % (Auto) 1.3 Baso % (Auto) 0.4 Lymph # (Auto) 2.3 [place] # (Auto) 1.4 H Eos # (Auto) 0.2 Baso # (Auto) 0.1 Abs Immat Gran (auto) 0.07 H Absolute Neuts (auto) 13.5 H Absolute Nucleated RBC 0.000 Nucleated RBC % (auto) 0.0 Anion Gap 11 L Estim Creat Clear Calc 61.6 Estimated GFR > 60 Random Glucose 125 H Calcium 9.3 Total Bilirubin 0.6 Direct Bilirubin 0.2 AST 21 ALT 28 Alkaline Phosphatase 85 B-Natriuretic Peptide 94 Total Protein 6.8 Albumin 4.0 Lipase 20 COVID-19 (JENNA) COVID-19 Clin Com 11/29/21 10:56 MCV MCH MCHC RDW Plt Count MPV Immature Gran % (Auto) Neut % (Auto) Lymph % (Auto) [place] % (Auto) Eos % (Auto) Baso % (Auto) Lymph # (Auto) [place] # (Auto) Eos # (Auto) Baso # (Auto) Abs Immat Gran (auto) Absolute Neuts (auto) Absolute Nucleated RBC Nucleated RBC % (auto) Anion Gap Estim Creat Clear Calc Estimated GFR Random Glucose Calcium Total Bilirubin Direct Bilirubin AST ALT Alkaline Phosphatase B-Natriuretic Peptide Total Protein Albumin Lipase COVID-19 (JENNA) Negative COVID-19 Clin Com See Note Imaging Radiologist's Impressions: Impressions Chest X-Ray 11/29/21 09:50 IMPRESSION: Subsegmental atelectasis at the left lung base. Brain MRI 11/29/21 10:27 IMPRESSION: - No acute intracranial findings. No acute infarcts. - Advanced chronic microangiopathy. Head CT 11/29/21 11:28 IMPRESSION: No acute findings. No change from previous exams. Assessment and Plan (1) Leukocytosis: Status: Acute (2) Vertigo: Status: Acute Plan an 81 years old with PMH of HTN, COPD, CAD, prostate CA among others who presents to the hospital complaining of sudden onset feeling of dizziness and unsteadiness in his feet. . vertigo negative CT, MRI For any acute findings or stroke Has horizontal nystagmus on exam Seems to be secondary to benign paroxysmal positional vertigo use meclizine around the clock Zofran andAtivan as needed to do physical therapy evaluation Leukocytosis No clear source of infection identified seems to be related to dry heaving hold on Abx monitor CBC Hypertension continue home medications BPH continue tamsulosin and finasteride DVT PPX Lovenox Quality Stroke Does the patient have a stroke diagnosis?: No VTE Prior VTE?: No VTE Risk Level:: Medical - moderate - high VTE Device Contraindication: Treatment Not Indicated VTE Drug Contraindication: N/A - Med Ordered
--- NOTE | 2021-11-29 15:16 | PHA.MEDREC ---
Pharmacy Consult ? Medication Reconciliation Pharmacy has completed the medication reconciliation.
[2021-11-29 16:40] VITALS: BP 143/68; PULSE 69; RESP 16; TEMP 36.6; O2SAT 98
[2021-11-29] MEDS: Enoxaparin Sodium 40 MG/0.4 ML SYRINGE SUBCUT (16:57)
[2021-11-29] MEDS: 0.9 % Sodium Chloride Flush 3 ML SYRINGE IVFLUSH ×2 (16:58→19:51)
[2021-11-29 19:29] VITALS: BP 136/65; PULSE 61; RESP 16; TEMP 36.8; O2SAT 96
[2021-11-30] VITALS: BP 142/59; PULSE 67; RESP 17; TEMP 36.3; O2SAT 95
[2021-11-30 04:00] VITALS: BP 145/66; PULSE 68; RESP 17; TEMP 36.3; O2SAT 98
[2021-11-30 05:11] LABS: Appearance Urine CLEAR; Leukocyte Esterase Urine NEG (NEG); Nitrite Urine NEG (NEG); PH 5.5 (5.0-8.0); Specific Gravity - Urine >= 1.030 (1.005-1.025); Urine Blood NEG (NEG); Urine Ketones NEG (NEG); Urine Protein NEG (NEG-TRACE)
[2021-11-30 05:12] LABS: Color Urine YELLOW; Glucose Urine UA NEG (NEG)
[2021-11-30 06:00] LABS: Hematocrit 42.5 % (42.0-52.0); Hemoglobin 13.5 g/dl (14.0-18.0); Mean Corpuscular HGB Conc 31.8 g/dl (31.0-36.0); Mean Corpuscular Hemoglobin 32.5 pg (27.0-33.0); Mean Corpuscular Volume 102.2 fL (80.0-98.0); Platelet Count 201 X10*3/uL (160-400); Red Blood Count 4.16 X10*6/uL (4.60-5.80); Red Cell Distribution Width 13.2 % (11.0-16.0); White Blood Count 13.4 X10*3/uL (4.8-10.8)
[2021-11-30 06:22] LABS: Anion Gap 15 (12-20); Blood Urea Nitrogen 29 mg/dL (9-16); Calcium 9.6 mg/dL (8.4-10.2); Carbon Dioxide 32 mmol/L (22-29); Chloride 97 mmol/L (96-108); Creatinine Clr Calc Pharmacy 52.6; Estimated Glomerular Filt Rate 60; Glucose Random 100 mg/dL (60-115); Potassium 4.3 mmol/L (3.3-5.1); Sodium 140 mmol/L (135-145)
[2021-11-30 07:48] VITALS: BP 161/74; PULSE 70; RESP 16; TEMP 36.3; O2SAT 96
[2021-11-30] MEDS: Meclizine HCl 25 MG TABLET PO (07:55)
[2021-11-30] MEDS: 0.9 % Sodium Chloride Flush 3 ML SYRINGE IVFLUSH (07:55)
[2021-11-30] MEDS: Aspirin Enteric Coated 81 MG TABLET.DR PO (08:57)
[2021-11-30] MEDS: Tamsulosin HCL 0.4 MG CAPSULE PO (08:57)
[2021-11-30] MEDS: amLODIPine Besylate 2.5 MG TABLET PO (08:57)
[2021-11-30] MEDS: carvediloL 3.125 MG TABLET PO (08:57)
--- NOTE | 2021-11-30 10:15 | MHC.CM.PN ---
DILIP 11/30/21, EMR REVIEWED, PT ADMITTED W/VERTIGO, CM MET W/PT WHO IS A&O, PT REPORTS HE IS RETIRED, LIVES W/, SON, SON'S EXWIFE AND TWO GRDCHILDREN, PT REPORTS HE IS INDEPENDENT W/ALL CARE, PT HAS A CANE, WALKER AND BEDSIDE COMMODE HOWEVER PT ONLY USES A CANE, NO HOME SERVICES, PT VERIFIES PCP IS KAYLA CHAVES, HCP IS PT'S MARCO JUAREZ [phone] W/NO ALTERNATE, COPY HAS BEEN REQUESTED. D/C PLAN: HOME LATER TODAY W/HOME PT AND FAMILY FOR TRANSPORT. Zwipe VACCINE X3, PT DOES NOT HAVE CARD W/HIM AND DOES NOT RECALL DATES.
--- NOTE | 2021-11-30 11:37 | MHC.CM.PN ---
Addendum entered by Kinza Munguia RN 11/30/21 12:29: [facility] WILL PROVIDE HOME PT FOR PT, REFERRAL ADDED TO DCP. Original Note: PER HOSPITALIST PT WILL BE MEDICALLY CLEARED FOR D/C TODAY W/HOME PT AND FAMILY FOR TRANSPORT, THIS CM STILL ATTEMPTING TO OBTAIN [facility] SERVICES, PT'S INSURANCE IS A BARRIER AND NOT ACCEPTED BY [facility] OR [facility] NOT CURRENTLY ACCEPTING NEW PTS, ADDITIONAL REFERRALS PLACED, CM WILL CONT TO FIND [facility] FOR PT.
--- NOTE | 2021-11-30 12:04 | PM.DS ---
DS: Providers Provider Date of Service: 11/30/21 Date of admission: 11/29/21 14:54 Primary care physician: Jake Pepper MD DS: Diagnosis Discharge Diagnosis (1) Leukocytosis: Status: Acute (2) Vertigo: Status: Acute DS: Summary Hospital Course Hospital Course: Admission note HPI ?an 81 years old with PMH of HTN, COPD, CAD, prostate CA among others who presents to the hospital complaining of sudden onset feeling of dizziness and unsteadiness in his feet.? The patient reports that he woke up this morning try to leave the bed 20 notice that the room is spinning and he could not stand as he developed nausea and dry heaving.? He denies any headache, chest pain, double vision, palpitation, change in bowel habit or urinary symptoms.? He reports this is the 1st time his going through something similar to this.? In the emergency he had images of the brain including CT scan and MRI which both were negative for any acute findings. ??Rajani-Hallpike?maneuver was done by emergency physician with mild improvement in the symptoms. ? Patient tried to move in the emergency with he was too risky and unsteady on his feet.Admitted for observation. Hospital Course The patient was admitted for observation. His dizziness improved significantly after coming out of the emergency with no recurrent of the attacks. He did not in need any extra Ativan, Zofran but kept on around the clock meclizine with fair response. Evaluated by Physical therapy this morning who recommended home with PT. WBCs improved to 13.4 with no evidence of infection. Believed to be Reactive and secondary to dry heaving. To be discharged on meclizine 3 times a day for the next 3 days and as needed afterward. To follow-up with PCP Advised to come back to the hospital for any recurrence of the vertigo. Time Spent with Patient Time attestation: Total time spent providing and/or coordinating discharge services: Discharge coordination time: Less than 30 minutes Quality: Stroke Does the patient have a stroke diagnosis?: No Physical Exam Vital Signs: Vital Signs: Last Vital Signs Temp 97.3 F 11/30/21 07:48 Pulse 70 11/30/21 07:48 Resp 16 11/30/21 07:48 BP 161/74 H 11/30/21 07:48 Pulse Ox 96 11/30/21 07:48 BMI result Body Mass Index 29.6 Const: Other: Constitutional : Alert, oriented, not in distress Eyes: no more nystagmus, no double vision reported Neck : Normal inspection, Supple Cardiovascular : RRR, S1 S2, no lower extremity edema Respiratory : Good bilateral air entry, no crackles Gastrointestinal: soft, lax, Normal bowel sounds, Non tender Skin : Warm, Dry Neurological : Alert & oriented x3, No focal deficit DS: Data Data Completed and Pending Labs on day of discharge: Laboratory Results - last 24 hr 11/30/21 11/30/21 11/30/21 00:56 05:28 05:28 WBC 13.4 H RBC 4.16 L Hgb 13.5 L Hct 42.5 MCV 102.2 H MCH 32.5 MCHC 31.8 RDW 13.2 Plt Count 201 MPV 11.0 Absolute Nucleated RBC 0.000 Nucleated RBC % (auto) 0.0 Sodium 140 Potassium 4.3 Chloride 97 Carbon Dioxide 32 H Anion Gap 15 BUN 29 H Creatinine 1.17 Estim Creat Clear Calc 52.6 Estimated GFR 60 Random Glucose 100 Calcium 9.6 Urine Color YELLOW Urine Appearance CLEAR Urine pH 5.5 Ur Specific [place] >= 1.030 H Urine Protein NEG Urine Glucose (UA) NEG Urine Ketones NEG Urine Blood NEG Urine Nitrite NEG Ur Leukocyte Esterase NEG Discharge Plan Discharge Patient Disposition: Home Health Service Discharge Diagnosis: BPPV Referrals: [facility] [Outside] - 1 Day (HOME PHYSICAL THERAPY) Jake Pepper MD [Primary Care Provider] - 1 Week Discharge Medications: New meclizine 25 mg Tablet 25 mg PO TID PRN (Reason: Vertigo) Qty: 60 0RF Continued carvedilol 3.125 mg tablet 3.125 mg PO BID Qty: 60 3RF Rx Instructions: must administer with a meal/food fluticasone propion-salmeterol [Wixela Inhub] 250-50 mcg/dose blister with device 1 puff PO BID 0RF aspirin 81 mg Tablet,Delayed Release (Dr/Ec) 81 mg PO DAILY 0RF atorvastatin 40 mg tablet 40 mg PO BEDTIME 0RF finasteride 5 mg tablet 5 mg PO BEDTIME 0RF tamsulosin 0.4 mg capsule 0.4 mg PO BID 0RF albuterol sulfate 90 mcg/actuation HFA aerosol inhaler 2 puff PO Q2H PRN (Reason: Shortness Of Breath Or Wheezing) 0RF Label Comments: pt is unable to recall his medications amlodipine 2.5 mg tablet 2.5 mg PO DAILY 0RF oxybutynin chloride 5 mg tablet 5 mg PO BEDTIME 0RF Discharge Orders: Discharge Order (Routine); Ordered 11/30/21 Ordered By: Akbar Means Diet: advance to usual diet Activity on Discharge: As tolerated Stand Alone Forms: Patient Portal Discharge page Care Plan Goals: Read below Health Concerns: Read below Plan of Treatment: Read below Assessment: you were admitted to the hospital for evaluation of dizziness as CT scan, MRI of the brain were negative for any strokes. You were diagnosed with benign paroxysmal positional vertigo that was treated with Ativan, meclizine and repositioning of the head. Evaluated by physical therapy team who recommended home therapy. To do physical therapy at home Use meclizine 3 times a day for the next 3 days then as needed for dizziness Come back to the hospital for any worsening dizziness and follow-up with PCP as planned.
--- NOTE | 2021-11-30 12:07 | W.MHC.F2F ---
Service Date Service Date: 11/30/21 Encounter Date of encounter: 11/30/21 Reasons for Services Signs and symptoms assessed: vertigo Reason for physical therapy: home safety and mobility and therapeutic exercises Homebound: Leaving the home is medically contraindicated at this time without the asist of a device and/or another person due th the listed conditions above and below. Reason homebound: unsteady gait / fall risk Certification: Based on the above findings, I certify that this patient is confined to the home and needs intermittent chcf care, physical therapy and/or speech therapy, or continues to need occupational therapy. The patient is under my care, and I have initiated the establishment of the plan of care. The patient will be followed by a physician who will periodically review the plan of care.
== END 2021-11-30 13:32 | disposition home health service (06) ==
LOC: HO.ED 14:52 → HO.EDOVER 15:18 → HO.S3 15:33
PROVIDERS: Admitting Provider Student in an Organized Health Care Education/Training Program; Emergency Provider Emergency Medicine; PCP Internal Medicine; Visit Provider Student in an Organized Health Care Education/Training Program
DX: D72.829 Elevated white blood cell count, unspecified (principal); R42 Dizziness and giddiness; R11.0 Nausea; J44.9 Chronic obstructive pulmonary disease, unspecified; R91.8 Other nonspecific abnormal finding of lung field; I25.10 Atherosclerotic heart disease of native coronary artery without angina pectoris; I10 Essential (primary) hypertension; I49.1 Atrial premature depolarization; E78.00 Pure hypercholesterolemia, unspecified; R26.81 Unsteadiness on feet; Z87.891 Personal history of nicotine dependence; Z20.822 Contact with and (suspected) exposure to COVID-19; Z91.81 History of falling; Z88.7 Allergy status to serum and vaccine; Z79.82 Long term (current) use of aspirin; Z79.899 Other long term (current) drug therapy
CPT/HCPCS: 36415; 70450; 70551; 71045; 80048; 80076; 81003; 83690; 83880; 84484; 85025; 85027; 87635; 93005; 96361; 96372; 96374; 96375; 96376; 97116; 97162; 99218; 99285; J1650; J2060; J2405

== ENCOUNTER 2021-12-05 09:40 | Outpatient (REF) | payer MEDICARE, SELFPAY ==
--- NOTE | ~2021-12-05 | CT_ITS ---
EXAMINATION: CT CHEST WITHOUT CONTRAST CLINICAL INFORMATION: Other nonspecific abnormal finding of lung field COMPARISON: Prior CT from December 2020 TECHNIQUE: Multidetector volumetric CT imaging of the chest was done. Axial MIP volume rendering provided. Sagittal and coronal reformatted images were obtained. This CT examination was performed using dose optimization techniques as appropriate, variously including the following: *Automated exposure control *Adjustment of mA and/or kV according to patient size (this includes techniques or standardized protocols for targeted exams where dose is matched to indication/reason for exam; i.e. extremities or head) *Use of iterative reconstruction technique CONTRAST: Noncontrasted study. DLP: 209 mGy-cm FINDINGS: COMPOUND WORKER: Lines/Tubes: Financial Planning Consultant reviewed, no lines. LUNGS: Lung parenchyma: There is mild panlobar pulmonary emphysema. There is subsegmental plate-like atelectasis at lingula base, image 425 series 7. Lung nodules/masses: 4 mm peripheral pleural-based density right upper lobe, image 80 series 7, unchanged. No suspicious lung mass. There are a few scattered tiny densities measuring to 3 mm or less. AIRWAYS: Trachea and bronchi are normal. PLEURA: No pleural effusion or pneumothorax. MEDIASTINUM AND JUAN MANUEL: Pretracheal lymph node roughly measures 1.2 cm short axis with fatty hilum, unchanged. Other lymph nodes in the mediastinum and juan manuel are normal in size by CT criteria. No mediastinal mass. VESSELS: HEART AND PERICARDIUM: Thoracic aorta is normal in size. Heart is normal in size. No pericardial effusion. There are few coronary calcifications. Pulmonary arteries are borderline dilated suggesting possibly underlying pulmonary hypertension. LOWER NECK, AXILLA: The visualized thyroid gland is unremarkable. No axillary mass or adenopathy. VISUALIZED ABDOMEN: Unremarkable CHEST WALL AND BONES: No chest wall mass. The visualized bony thorax is within normal limits. CT/CT chest wo con IMPRESSION: No CT evidence of lung malignancy. Stable tiny scattered lung densities 4 mm or less. Stable pretracheal lymph node mildly prominent 1.2 cm short axis, unchanged. Pulmonary emphysema. Mildly dilated pulmonary artery suggesting possibly underlying pulmonary hypertension. Coronary calcifications. Stable subsegmental plate-like atelectasis at lingula base.
== END 2021-12-05 09:41 | disposition home or self-care (01) ==
LOC: HO.CT 09:40
PROVIDERS: Visit Provider Internal Medicine Pulmonary Disease
DX: R91.8 Other nonspecific abnormal finding of lung field (principal)
CPT/HCPCS: 71250

== ENCOUNTER 2021-12-08 10:11 | Outpatient (REF) | payer MEDICARE, SELFPAY ==
[2021-12-08 10:13] LABS: MANUAL DIFF FLAG NO
[2021-12-08 10:30] LABS: Basophils Absolute Auto 0.1 X10*3/uL (0.0-0.2); Basophils Percent Auto 0.5 % (0-2); Eosinophils Absolute Auto 0.7 X10*3/uL (0.0-0.4); Eosinophils Percent Auto 5.9 % (0-4); Hematocrit 39.6 % (42.0-52.0); Hemoglobin 12.7 g/dl (14.0-18.0); Imm Gran Abs Auto 0.04 X10*3/uL (0.00-0.03); Imm Gran Pct Auto 0.4 % (0.0-0.4); Lymphocytes Absolute Auto 2.8 X10*3/uL (1.2-4.9); Lymphocytes Percent Auto 25.6 % (20-40); Mean Corpuscular HGB Conc 32.1 g/dl (31.0-36.0); Mean Corpuscular Hemoglobin 32.2 pg (27.0-33.0); Mean Corpuscular Volume 100.3 fL (80.0-98.0); Mean Platelet Volume 11.1 fL (9.4-12.4); Monocytes Absolute Auto 1.2 X10*3/uL (0.1-1.2); Monocytes Percent Auto 10.8 % (2-11); Neutrophils Absolute Auto 6.2 x10*3/uL (2.0-8.3); Neutrophils Percent Auto 56.8 % (45-73); Platelet Count 225 X10*3/uL (160-400); Red Blood Count 3.95 X10*6/uL (4.60-5.80); Red Cell Distribution Width 12.8 % (11.0-16.0)
== END 2021-12-08 10:12 | disposition home or self-care (01) ==
LOC: HO.LNP 10:11
PROVIDERS: Visit Provider Internal Medicine
DX: H81.13 Benign paroxysmal vertigo, bilateral (principal)
CPT/HCPCS: 85025

== ENCOUNTER → 2021-12-13 08:50 | Outpatient (BNVA) | payer MEDICARE, SELFPAY | PROVIDERS: PCP Internal Medicine; Visit Provider Internal Medicine Pulmonary Disease | DX: J44.9 Chronic obstructive pulmonary disease, unspecified (principal); R91.8 Other nonspecific abnormal finding of lung field | CPT/HCPCS: 99212 ==

== ENCOUNTER 2022-01-29 09:19 | Outpatient (REF) | payer MEDICARE, SELFPAY ==
[2022-01-29 12:21] LABS: Prostate Specific Antigen < 0.05 ng/mL (<0.05-4.0)
[2022-02-03 11:17] LABS: Testosterone, Total 28 ng/dL (250-1100)
== END 2022-01-29 09:20 | disposition home or self-care (01) ==
LOC: HO.HMGCLDS 09:19
PROVIDERS: PCP Internal Medicine; Visit Provider Urology
DX: Z12.5 Encounter for screening for malignant neoplasm of prostate (principal); C61 Malignant neoplasm of prostate
CPT/HCPCS: 36415; 84153; 84403

== ENCOUNTER → 2022-02-01 09:00 | Outpatient (BNVA) | payer MEDICARE, SELFPAY | PROVIDERS: PCP Internal Medicine; Visit Provider Urology | DX: C61 Malignant neoplasm of prostate (principal); Z92.3 Personal history of irradiation | CPT/HCPCS: Q3014 ==

== ENCOUNTER 2022-02-05 10:34 | Outpatient (REF) | payer MEDICARE, SELFPAY ==
[2022-02-05 10:37] LABS: MANUAL DIFF FLAG NO
[2022-02-05 11:08] LABS: Basophils Absolute Auto 0.1 X10*3/uL (0.0-0.2); Basophils Percent Auto 0.8 % (0-2); Eosinophils Absolute Auto 0.6 X10*3/uL (0.0-0.4); Eosinophils Percent Auto 5.2 % (0-4); Hematocrit 42.3 % (42.0-52.0); Hemoglobin 13.5 g/dl (14.0-18.0); Imm Gran Abs Auto 0.03 X10*3/uL (0.00-0.03); Imm Gran Pct Auto 0.3 % (0.0-0.4); Lymphocytes Absolute Auto 3.1 X10*3/uL (1.2-4.9); Lymphocytes Percent Auto 26.9 % (20-40); Mean Corpuscular HGB Conc 31.9 g/dl (31.0-36.0); Mean Corpuscular Hemoglobin 31.8 pg (27.0-33.0); Mean Corpuscular Volume 99.5 fL (80.0-98.0); Mean Platelet Volume 11.2 fL (9.4-12.4); Monocytes Absolute Auto 1.1 X10*3/uL (0.1-1.2); Monocytes Percent Auto 9.7 % (2-11); Neutrophils Absolute Auto 6.5 x10*3/uL (2.0-8.3); Neutrophils Percent Auto 57.1 % (45-73); Platelet Count 246 X10*3/uL (160-400); Red Blood Count 4.25 X10*6/uL (4.60-5.80); Red Cell Distribution Width 13.1 % (11.0-16.0); White Blood Count 11.3 X10*3/uL (4.8-10.8)
[2022-02-05 11:13] LABS: Appearance Urine CLEAR; Color Urine YELLOW; Glucose Urine UA NEG (NEG); Leukocyte Esterase Urine NEG (NEG); Nitrite Urine NEG (NEG); Specific Gravity - Urine 1.025 (1.005-1.025); Urine Blood NEG (NEG); Urine Ketones NEG (NEG); Urine Protein NEG (NEG-TRACE)
[2022-02-05 11:39] LABS: Alanine Aminotransferase 14 U/L (0-40); Albumin Level 3.9 g/dL (3.5-5.0); Alkaline Phosphatase 103 U/L (39-117); Anion Gap 15 (12-20); Aspartate Amino Transferase 20 U/L (5-37); Bilirubin Total 0.9 mg/dL (0.0-1.0); Blood Urea Nitrogen 19 mg/dL (9-16); Calcium 9.5 mg/dL (8.4-10.2); Carbon Dioxide 30 mmol/L (22-29); Chloride 99 mmol/L (96-108); Cholesterol 145 mg/dL; Estimated Glomerular Filt Rate 60; Glucose Fasting 103 mg/dL (60-99); HDL Cholesterol 43 mg/dL; Iron 82 mcg/dL (45-160); Percent Iron Saturation 23 % (15-50); Potassium 4.4 mmol/L (3.3-5.1); Sodium 140 mmol/L (135-145); Total Iron Binding Capacity 357 mcg/dL (228-428); Total Protein 7.1 g/dL (6.5-8.0); Unsaturated Iron Binding 275 ug/dL
[2022-02-05 11:44] LABS: LDL Cholesterol Calculated 78 mg/dl; Triglycerides 122 mg/dL
[2022-02-05 12:03] LABS: Squamous Epithelial Cell Urine TRACE /LPF
[2022-02-05 12:04] LABS: Bacteria Urine TRACE /LPF; RBC Urine 0 /HPF (0); WBC Urine 0 /HPF (0-4)
[2022-02-05 12:10] LABS: PSA,Total (Free>4and<10) < 0.05 ng/mL (0.00-4.00)
== END 2022-02-05 10:35 | disposition home or self-care (01) ==
LOC: HO.LNP 10:34
PROVIDERS: PCP Internal Medicine; Visit Provider Internal Medicine
DX: Z00.00 Encounter for general adult medical examination without abnormal findings (principal); Z12.5 Encounter for screening for malignant neoplasm of prostate; I10 Essential (primary) hypertension; E78.00 Pure hypercholesterolemia, unspecified; D50.9 Iron deficiency anemia, unspecified; D72.829 Elevated white blood cell count, unspecified
CPT/HCPCS: 80053; 80061; 81001; 83540; 84153; 85025

== ENCOUNTER 2022-02-16 11:10 | Outpatient (REF) | payer MEDICARE, SELFPAY ==
--- NOTE | ~2022-02-16 | XR_ITS ---
EXAMINATION: XR CHEST CLINICAL INFORMATION: Emphysema. COMPARISON: Chest done on 11/29/2021. TECHNIQUE: 2 views of the chest were obtained. FINDINGS: Stable subtle opacity is noted in the lingular segment of the left upper lobe obscuring part of the left cardiac outline. The remainder of the lung pratt appear clear. Hyperinflated lung field consistent with clinically known emphysema is noted. Cardiac mediastinal silhouette is within normal limit. No evidence of any pleural effusion or pneumothorax. Mild multilevel degenerative spondylosis. XR/XR chest 2V IMPRESSION: Hyperexpanded lung field, consistent with emphysematous disease with stable opacity in the region of the lingular segment of the left upper lobe. No superimposed acute cardiopulmonary disease.
== END 2022-02-16 11:11 | disposition home or self-care (01) ==
LOC: HO.HMGCX 11:10
PROVIDERS: Visit Provider Internal Medicine
DX: J43.1 Panlobular emphysema (principal)
CPT/HCPCS: 71046

== ENCOUNTER → 2022-04-17 09:05 | Outpatient (BNVA) | payer MEDICARE, SELFPAY | PROVIDERS: PCP Internal Medicine; Visit Provider Internal Medicine Pulmonary Disease | DX: J44.9 Chronic obstructive pulmonary disease, unspecified (principal); R91.8 Other nonspecific abnormal finding of lung field | CPT/HCPCS: 99212 ==

== ENCOUNTER → 2022-05-10 13:11 | Outpatient (BNVA) | payer MEDICARE, SELFPAY | PROVIDERS: PCP Internal Medicine; Visit Provider Internal Medicine Pulmonary Disease | DX: J44.9 Chronic obstructive pulmonary disease, unspecified (principal); R91.8 Other nonspecific abnormal finding of lung field | CPT/HCPCS: 99212 ==

== ENCOUNTER 2022-05-28 15:09 | Outpatient (REF) | payer MEDICARE, SELFPAY ==
[2022-05-28 17:25] LABS: Prostate Specific Antigen < 0.05 ng/mL (<0.05-4.0)
[2022-06-02 11:51] LABS: Testosterone, Total 82 ng/dL (250-1100)
== END 2022-05-28 15:10 | disposition home or self-care (01) ==
LOC: HO.HMGCLDS 15:09
PROVIDERS: PCP Internal Medicine; Visit Provider Urology
DX: C61 Malignant neoplasm of prostate (principal)
CPT/HCPCS: 36415; 84153; 84403

== ENCOUNTER → 2022-06-01 10:10 | Outpatient (BNVA) | payer MEDICARE, SELFPAY | PROVIDERS: PCP Internal Medicine; Visit Provider Urology | DX: R39.15 Urgency of urination (principal); R35.1 Nocturia; R39.12 Poor urinary stream; C61 Malignant neoplasm of prostate; Z79.899 Other long term (current) drug therapy | CPT/HCPCS: 99212 ==

== ENCOUNTER → 2022-07-10 13:36 | Outpatient (BNVA) | payer MEDICARE, SELFPAY | PROVIDERS: PCP Internal Medicine; Visit Provider Internal Medicine Pulmonary Disease | DX: J44.9 Chronic obstructive pulmonary disease, unspecified (principal); R91.8 Other nonspecific abnormal finding of lung field; Z79.899 Other long term (current) drug therapy | CPT/HCPCS: 99212 ==

== ENCOUNTER → 2022-07-25 13:20 | Outpatient (BNVA) | payer MEDICARE, SELFPAY | PROVIDERS: PCP Internal Medicine; Referring Provider Internal Medicine; Visit Provider Internal Medicine Cardiovascular Disease | DX: R42 Dizziness and giddiness (principal); I10 Essential (primary) hypertension | CPT/HCPCS: 93005; 99212 ==

== ENCOUNTER 2022-08-28 15:57 | Outpatient (REF) | payer MEDICARE, SELFPAY ==
[2022-09-04 16:01] LABS: Testosterone, Free 7.9 pg/mL (30.0-135.0); Testosterone, Total 122 ng/dL (250-1100)
== END 2022-08-28 15:58 | disposition home or self-care (01) ==
LOC: HO.LNP 15:57
PROVIDERS: Visit Provider Internal Medicine
DX: R53.1 Weakness (principal)
CPT/HCPCS: 84402; 84403

== ENCOUNTER → 2022-09-11 13:33 | Outpatient (BNVA) | payer MEDICARE, SELFPAY | PROVIDERS: PCP Internal Medicine; Visit Provider Internal Medicine Pulmonary Disease | DX: J44.9 Chronic obstructive pulmonary disease, unspecified (principal); Z99.81 Dependence on supplemental oxygen | CPT/HCPCS: 94618; 99212 ==

== ENCOUNTER 2022-09-20 11:03 | Outpatient (REF) | payer MEDICARE, SELFPAY ==
[2022-09-20 14:36] LABS: Prostate Specific Antigen < 0.10 ng/mL (<0.05-4.0)
== END 2022-09-20 11:04 | disposition home or self-care (01) ==
LOC: HO.HMGCLDS 11:03
PROVIDERS: PCP Internal Medicine; Visit Provider Urology
DX: Z12.5 Encounter for screening for malignant neoplasm of prostate (principal); C61 Malignant neoplasm of prostate
CPT/HCPCS: 36415; 84153

== ENCOUNTER 2022-09-27 12:04 | Outpatient (REF) | payer MEDICARE, SELFPAY ==
[2022-09-27 14:17] LABS: Blood Urea Nitrogen 27 mg/dL (9-16); Estimated Glomerular Filt Rate > 60
== END 2022-09-27 12:05 | disposition home or self-care (01) ==
LOC: HO.10HDL 12:04
PROVIDERS: Visit Provider Otolaryngology
DX: H91.90 Unspecified hearing loss, unspecified ear (principal)
CPT/HCPCS: 36415; 82565; 84520

== ENCOUNTER → 2022-10-03 08:53 | Outpatient (BNVA) | payer MEDICARE, SELFPAY | PROVIDERS: PCP Internal Medicine; Visit Provider Urology | DX: C61 Malignant neoplasm of prostate (principal); R39.15 Urgency of urination | CPT/HCPCS: Q3014 ==

== ENCOUNTER 2022-10-10 11:05 | Emergency (ER) | payer MEDICARE, SELFPAY ==
--- NOTE | ~2022-10-10 | XR_ITS ---
EXAMINATION: XR CHEST CLINICAL INFORMATION: Difficulty breathing COMPARISON: 02/16/2022 TECHNIQUE: Frontal view of the chest was obtained. FINDINGS: Lungs appear hyperaerated but grossly are clear. Heart and pulmonary vessels are normal. XR/XR chest 1V IMPRESSION: No active disease.
--- NOTE | 2022-10-10 11:52 | ED_ITS ---
HPI - General Adult General Chief complaint: General Medical Stated complaint: Dehydrated sent by PCP Related Data Home Medications Medication Instructions Recorded Confirmed albuterol sulfate 90 mcg/actuation 2 puff PO Q2H PRN Shortness Of 09/07/20 10/03/22 aerosol inhaler Breath Or Wheezing aspirin 81 mg tablet,delayed 81 mg PO DAILY 11/29/21 10/03/22 release furosemide 40 mg tablet 40 mg PO DAILY 02/01/22 10/03/22 zolpidem 5 mg tablet 5 mg PO BEDTIME PRN 05/31/22 10/03/22 meclizine 25 mg tablet 25 mg PO DAILY PRN 06/01/22 10/03/22 nystatin 100,000 unit/gram topical topical BID 06/01/22 10/03/22 ointment theophylline 600 mg 600 mg PO DAILY 10/03/22 10/03/22 tablet,extended release 24 hr Previous Rx's Medication Instructions Recorded ipratropium 0.5 mg-albuterol 3 mg 3 ml inhalation Q6H wheezing 30 12/13/21 (2.5 mg base)/3 mL nebulization days #270 mL soln tamsulosin 0.4 mg capsule 0.4 mg PO BID 90 days #180 caps 06/04/22 carvedilol 3.125 mg tablet 3.125 mg PO BID #60 tabs 07/02/22 atorvastatin 40 mg tablet 40 mg PO DAILY #90 tabs 07/18/22 finasteride 5 mg tablet 5 mg PO DAILY 90 days #90 tabs 08/14/22 amoxicillin 875 mg-potassium 1 tab PO BID 10 days #20 tabs 09/11/22 clavulanate 125 mg tablet amlodipine 5 mg tablet 5 mg PO DAILY #90 tabs 09/27/22 tolterodine 4 mg capsule,extended 4 mg PO DAILY 30 days #30 caps 10/03/22 release 24 hr Allergies Allergy/AdvReac Type Severity Reaction Status Date / Time pneumococcal vaccine Allergy Intermediate RASH Verified 10/03/22 08:54 [PNEUMOCOCCAL VACCINE] amoxicillin [From Augmentin] Allergy Unknown Swelling Verified 10/03/22 08:54 clavulanic acid Allergy Unknown Swelling Verified 10/03/22 08:54 [From Augmentin] PMFSH Past Medical History Medical History COPD (chronic obstructive pulmonary disease) Essential hypertension Gout High cholesterol Hypertension Prostate cancer Pulmonary nodules Surgical History History of spinal surgery Family History Family History Father No problems noted. Mother No problems noted. Social History Social History Alcohol intake: current Alcohol intake frequency: does not drink Alcohol type: wine Patient Tobacco Use Status: Former Tobacco user Quit Date: 2015 Years Smoked: 61 yrs Second Hand Smoke Exposure: No Advance Directives: Yes Advance Directives on File: No service: Yes Current occupational status: retired Physical Exam ED Vital Signs: Vital Signs - 24 hr 10/10/22 11:55 Temperature 98.7 F Pulse Rate 59 Respiratory Rate 20 Blood Pressure 171/56 H Pulse Oximetry 97 Oxygen Delivery Method Room Air BMI result Body Mass Index 25.7 Course Course Course Narrative: RME--81-year-old male with a past medical history of [place], COPD on 2L home O2 as needed (newly), hypertension, gout, HLD, HTN, prostate CA, presenting to the ED complaining of dehydration x1 week w/assoc lightheadedness. Reports unable to keep anything down and chronic SOB. Denies abd pain, N/V/D Lungs mildly diminished on exam. wearing O2, ambulating w/steady gait EKG, labs, UA, CXR, IV have ordered Medical Decision Making Lab Data Result Diagrams: 10/10/22 12:22 10/10/22 12:21 Labs: Lab Results 10/10/22 10/10/22 10/10/22 Range/Units 12:14 12:21 12:21 WBC (4.8-10.8) X10*3/uL RBC (4.60-5.80) X10*6/uL Hgb (14.0-18.0) g/dl Hct (42.0-52.0) % MCV (80.0-98.0) fL MCH (27.0-33.0) pg MCHC (31.0-36.0) g/dl RDW (11.0-16.0) % Plt Count (160-400) X10*3/uL MPV (9.4-12.4) fL Immature Gran % (Auto) (0.0-0.4) % Neut % (Auto) (45-73) % Lymph % (Auto) (20-40) % [place] % (Auto) (2-11) % Eos % (Auto) (0-4) % Baso % (Auto) (0-2) % Lymph # (Auto) (1.2-4.9) X10*3/uL [place] # (Auto) (0.1-1.2) X10*3/uL Eos # (Auto) (0.0-0.4) X10*3/uL Baso # (Auto) (0.0-0.2) X10*3/uL Abs Immat Gran (auto) (0.00-0.03) X10*3/uL Absolute Neuts (auto) (2.0-8.3) x10*3/uL Absolute Nucleated RBC (0.0-0.012) X10*3/uL Nucleated RBC % (auto) (0.0-0.2) /100WBC Sodium 138 (135-145) mmol/L Potassium 3.6 (3.3-5.1) mmol/L Chloride 91 L (96-108) mmol/L Carbon Dioxide 39 H (22-29) mmol/L Anion Gap 12 (12-20) BUN 17 H (9-16) mg/dL Creatinine 1.07 (0.5-1.4) mg/dL Estim Creat Clear Calc 51.4 Estimated GFR > 60 Random Glucose 114 (60-115) mg/dL Calcium 9.4 (8.4-10.2) mg/dL Magnesium 2.1 (1.6-2.6) mg/dL Total Bilirubin 0.8 (0.0-1.0) mg/dL Direct Bilirubin 0.2 (0.0-0.5) mg/dL AST 15 (5-37) U/L ALT 8 (0-40) U/L Alkaline Phosphatase 129 H (39-117) U/L Troponin I High Sens 17.7 (<3.5-35.0) ng/L B-Natriuretic Peptide (<100) pg/mL Total Protein 7.1 (6.5-8.0) g/dL Albumin 3.9 (3.5-5.0) g/dL Influenza Type A (PCR) NEGATIVE (Negative) Influenza Type B (PCR) NEGATIVE (Negative) RSV RNA Qual (PCR) NEGATIVE (Negative) SARS-CoV-2 RNA (RT-PCR) NEGATIVE (Negative) 10/10/22 10/10/22 Range/Units 12:21 12:22 WBC 9.7 (4.8-10.8) X10*3/uL RBC 4.70 (4.60-5.80) X10*6/uL Hgb 14.7 (14.0-18.0) g/dl Hct 43.9 (42.0-52.0) % MCV 93.4 (80.0-98.0) fL MCH 31.3 (27.0-33.0) pg MCHC 33.5 (31.0-36.0) g/dl RDW 12.4 (11.0-16.0) % Plt Count 272 (160-400) X10*3/uL MPV 10.2 (9.4-12.4) fL Immature Gran % (Auto) 0.3 (0.0-0.4) % Neut % (Auto) 59.1 (45-73) % Lymph % (Auto) 23.7 (20-40) % [place] % (Auto) 9.7 (2-11) % Eos % (Auto) 6.5 H (0-4) % Baso % (Auto) 0.7 (0-2) % Lymph # (Auto) 2.3 (1.2-4.9) X10*3/uL [place] # (Auto) 0.9 (0.1-1.2) X10*3/uL Eos # (Auto) 0.6 H (0.0-0.4) X10*3/uL Baso # (Auto) 0.1 (0.0-0.2) X10*3/uL Abs Immat Gran (auto) 0.03 (0.00-0.03) X10*3/uL Absolute Neuts (auto) 5.7 (2.0-8.3) x10*3/uL Absolute Nucleated RBC 0.000 (0.0-0.012) X10*3/uL Nucleated RBC % (auto) 0.0 (0.0-0.2) /100WBC Sodium (135-145) mmol/L Potassium (3.3-5.1) mmol/L Chloride (96-108) mmol/L Carbon Dioxide (22-29) mmol/L Anion Gap (12-20) BUN (9-16) mg/dL Creatinine (0.5-1.4) mg/dL Estim Creat Clear Calc Estimated GFR Random Glucose (60-115) mg/dL Calcium (8.4-10.2) mg/dL Magnesium (1.6-2.6) mg/dL Total Bilirubin (0.0-1.0) mg/dL Direct Bilirubin (0.0-0.5) mg/dL AST (5-37) U/L ALT (0-40) U/L Alkaline Phosphatase (39-117) U/L Troponin I High Sens (<3.5-35.0) ng/L B-Natriuretic Peptide 82 (<100) pg/mL Total Protein (6.5-8.0) g/dL Albumin (3.5-5.0) g/dL Influenza Type A (PCR) (Negative) Influenza Type B (PCR) (Negative) RSV RNA Qual (PCR) (Negative) SARS-CoV-2 RNA (RT-PCR) (Negative) Discharge Plan Discharge Clinical Impression: Chronic obstructive pulmonary disease Patient Disposition: Left Without Being Seen Interventions: LWBS Worksheet Last Done: 10/10/22 16:45 Discharge Date/Time: 10/10/22 16:45
[2022-10-10 11:55] VITALS: BP 171/56; PULSE 59; RESP 20; TEMP 37.1; O2SAT 97; BMI 25.7
--- NOTE | 2022-10-10 11:55 | ECG_ITS ---
Test Reason : lightheaded Blood Pressure : / mmHG Vent. Rate : 056 BPM Atrial Rate : 056 BPM P-R Int : 150 ms QRS Dur : 090 ms QT Int : 424 ms P-R-T Axes : 088 059 097 degrees QTc Int : 409 ms Sinus bradycardia Cannot rule out Inferior infarct (cited on or before 29-NOV-2021) Nonspecific ST and T wave abnormality Abnormal ECG When compared with ECG of 29-NOV-2021 10:34, Premature atrial complexes are no longer Present Referred By: Tamara Fuller Electronically Signed By:LUIS MANUEL ALMEIDA
[2022-10-10 12:27] LABS: MANUAL DIFF FLAG NO
[2022-10-10 12:34] LABS: Basophils Absolute Auto 0.1 X10*3/uL (0.0-0.2); Basophils Percent Auto 0.7 % (0-2); Eosinophils Absolute Auto 0.6 X10*3/uL (0.0-0.4); Eosinophils Percent Auto 6.5 % (0-4); Hematocrit 43.9 % (42.0-52.0); Hemoglobin 14.7 g/dl (14.0-18.0); Imm Gran Abs Auto 0.03 X10*3/uL (0.00-0.03); Imm Gran Pct Auto 0.3 % (0.0-0.4); Lymphocytes Absolute Auto 2.3 X10*3/uL (1.2-4.9); Lymphocytes Percent Auto 23.7 % (20-40); Mean Corpuscular HGB Conc 33.5 g/dl (31.0-36.0); Mean Corpuscular Hemoglobin 31.3 pg (27.0-33.0); Mean Corpuscular Volume 93.4 fL (80.0-98.0); Mean Platelet Volume 10.2 fL (9.4-12.4); Monocytes Absolute Auto 0.9 X10*3/uL (0.1-1.2); Monocytes Percent Auto 9.7 % (2-11); Neutrophils Absolute Auto 5.7 x10*3/uL (2.0-8.3); Neutrophils Percent Auto 59.1 % (45-73); Platelet Count 272 X10*3/uL (160-400); Red Cell Distribution Width 12.4 % (11.0-16.0); White Blood Count 9.7 X10*3/uL (4.8-10.8)
[2022-10-10 12:48] LABS: Alanine Aminotransferase 8 U/L (0-40); Albumin Level 3.9 g/dL (3.5-5.0); Alkaline Phosphatase 129 U/L (39-117); Anion Gap 12 (12-20); Aspartate Amino Transferase 15 U/L (5-37); Bilirubin Direct 0.2 mg/dL (0.0-0.5); Bilirubin Total 0.8 mg/dL (0.0-1.0); Blood Urea Nitrogen 17 mg/dL (9-16); Calcium 9.4 mg/dL (8.4-10.2); Carbon Dioxide 39 mmol/L (22-29); Chloride 91 mmol/L (96-108); Creatinine Clr Calc Pharmacy 51.4; Estimated Glomerular Filt Rate > 60; Glucose Random 114 mg/dL (60-115); Magnesium 2.1 mg/dL (1.6-2.6); Potassium 3.6 mmol/L (3.3-5.1); Sodium 138 mmol/L (135-145); Total Protein 7.1 g/dL (6.5-8.0)
[2022-10-10 12:49] LABS: B Type Natriuretic Peptide 82 pg/mL (<100)
[2022-10-10 12:50] LABS: Troponin-I High Sensitivity 17.7 ng/L (<3.5-35.0)
[2022-10-10 13:04] LABS: Influenza A PCR NEGATIVE (Negative); Influenza B PCR NEGATIVE (Negative); Resp Syncy Virus RNA Qual PCR NEGATIVE (Negative); SARS COV2 PCR INHOUSE NEGATIVE (Negative)
== END 2022-10-10 16:45 | disposition left against medical advice (07) ==
PROVIDERS: Physician Assistant; Emergency Provider Emergency Medicine; PCP Internal Medicine
DX: J44.9 Chronic obstructive pulmonary disease, unspecified (principal); E86.0 Dehydration; R06.02 Shortness of breath; Z20.828 Contact with and (suspected) exposure to other viral communicable diseases; I10 Essential (primary) hypertension; E78.5 Hyperlipidemia, unspecified; Z87.891 Personal history of nicotine dependence
CPT/HCPCS: 0241U; 36415; 71045; 80048; 80076; 83735; 83880; 84484; 85025; 93005; 99283

== ENCOUNTER 2022-10-11 09:43 | Outpatient (REF) | payer MEDICARE, OTHER, SELFPAY ==
--- NOTE | ~2022-10-11 | MR_ITS ---
EXAMINATION: MR BRAIN WITHOUT AND WITH CONTRAST CLINICAL INFORMATION: Sudden right hearing loss COMPARISON: MRI of the brain without contrast 11/29/2021 TECHNIQUE: Multiplanar multisequence MR imaging of the brain was obtained without and following the administration of 7.5 mL Gadavist intravenous contrast. FINDINGS: There is no acute infarct on diffusion-weighted imaging. There is no intracranial hemorrhage on iron-sensitive imaging. No extra-axial collection or mass effect/herniation. Confluent periventricular, deep white matter, and brainstem T2 FLAIR hyperintensity consistent with underlying microangiopathy. The 7th and 8th cranial nerve complexes are symmetric in course, caliber, and enhancement characteristics. Major inner ear structures including the cochlea, semicircular canals, and vestibule are symmetric in morphology and demonstrate normal CSF signal. No enhancing intracanalicular or cerebellopontine angle mass lesion is visualized. No hydrocephalus. The ventricles are normal in morphology and size. No abnormal parenchymal or extra-axial enhancement. The major flow voids at the skull base are preserved. The midline structures are normal. The cerebellar tonsils are normally positioned. The craniocervical junction is normal. Marrow signal is within normal limits. The visualized soft tissues are without significant abnormality. No signal abnormality within the paranasal sinuses or within the mastoid air cells. MR/MR head/brain wo/w con IMPRESSION: 1. No evidence of retrocochlear pathology. 2. Severe chronic microangiopathy
== END 2022-10-11 09:44 | disposition home or self-care (01) ==
LOC: HO.MRI 09:43
PROVIDERS: PCP Internal Medicine; Visit Provider Otolaryngology
DX: D33.3 Benign neoplasm of cranial nerves (principal)
CPT/HCPCS: 70553; A9585

== ENCOUNTER 2022-12-10 13:39 | Outpatient (REF) | payer MEDICARE, SELFPAY ==
--- NOTE | ~2022-12-10 | CT_ITS ---
EXAMINATION: CT CHEST WITHOUT CONTRAST CLINICAL INFORMATION: Chest x-ray 10/10/2022. COMPARISON: CT chest 12/05/2021 and chest x-ray 10/10/2022. TECHNIQUE: Multidetector volumetric CT imaging of the chest was done. Axial MIP volume rendering provided. Sagittal and coronal reformatted images were obtained. This CT examination was performed using dose optimization techniques as appropriate, variously including the following: *Automated exposure control *Adjustment of mA and/or kV according to patient size (this includes techniques or standardized protocols for targeted exams where dose is matched to indication/reason for exam; i.e. extremities or head) *Use of iterative reconstruction technique DLP: 202 mGy-cm FINDINGS: PLANS EXAMINER: The lungs are well expanded and clear. LUNGS: The lungs are well expanded and clear of acute pneumonic process. There is plate-like atelectasis in the lingula and left upper lobe. There is a 3 mm right upper lobe pulmonary nodule axial image 303/6. Previously it measured 7 mm. No additional pulmonary nodules are seen. MEDIASTINUM: The thyroid lobes are symmetric and normal. The central trachea and the bronchi are widely patent. The heart size and the great vessels are of normal caliber. No pericardial effusion is seen. There are reactive lymph nodes in the mediastinum with the largest lymph node with central lucency measuring 1.3 x 2.2 cm, they are stable. CORONARY ARTERY CALCIFICATION: There are mild coronary artery calcifications present. PLEURA: There is no pleural effusion. No pleural mass or thickening. AXILLA: There are multiple small shotty bilateral axillary lymph nodes. UPPER ABDOMEN: The visualized liver, spleen and pancreas are unremarkable. There is a solitary gallstone. An exophytic cyst is seen in the upper pole right kidney with vascular calcifications in the renal hilum. OSSEOUS STRUCTURES: No aggressive lytic or sclerotic process seen. CT/CT chest wo IV con IMPRESSION: Improved right upper pulmonary nodule now measuring 3 mm compared to 7 mm on previous study. No additional nodules seen. Stable mediastinal lymph nodes. Gallstone. Exophytic right renal cyst. Fleischner guidelines were followed.
== END 2022-12-10 13:40 | disposition home or self-care (01) ==
LOC: HO.CT 13:39
PROVIDERS: PCP Internal Medicine; Visit Provider Internal Medicine Pulmonary Disease
DX: R91.8 Other nonspecific abnormal finding of lung field (principal)
CPT/HCPCS: 71250

== ENCOUNTER → 2022-12-11 13:36 | Outpatient (BNVA) | payer MEDICARE, SELFPAY | PROVIDERS: PCP Internal Medicine; Visit Provider Internal Medicine Pulmonary Disease | DX: J44.9 Chronic obstructive pulmonary disease, unspecified (principal); R91.8 Other nonspecific abnormal finding of lung field; Z79.899 Other long term (current) drug therapy; Z99.81 Dependence on supplemental oxygen | CPT/HCPCS: 99212 ==

== ENCOUNTER → 2022-12-13 10:38 | Outpatient (BNVA) | payer MEDICARE, SELFPAY | PROVIDERS: PCP Internal Medicine; Visit Provider Internal Medicine Pulmonary Disease | DX: J44.9 Chronic obstructive pulmonary disease, unspecified (principal) | CPT/HCPCS: 94618; 99211 ==

== ENCOUNTER → 2022-12-27 10:41 | Outpatient (BNVA) | payer MEDICARE, SELFPAY | PROVIDERS: PCP Internal Medicine; Visit Provider Urology | DX: R39.15 Urgency of urination (principal); R39.12 Poor urinary stream; C61 Malignant neoplasm of prostate | CPT/HCPCS: 52000; 99212 ==

== ENCOUNTER 2023-02-12 10:42 | Outpatient (REF) | payer MEDICARE, SELFPAY ==
[2023-02-12 10:46] LABS: MANUAL DIFF FLAG NO
[2023-02-12 11:07] LABS: Basophils Absolute Auto 0.1 X10*3/uL (0.0-0.2); Basophils Percent Auto 0.7 % (0-2); Eosinophils Absolute Auto 0.5 X10*3/uL (0.0-0.4); Eosinophils Percent Auto 4.5 % (0-4); Hemoglobin 13.4 g/dl (14.0-18.0); Imm Gran Abs Auto 0.02 X10*3/uL (0.00-0.03); Imm Gran Pct Auto 0.2 % (0.0-0.4); Lymphocytes Absolute Auto 3.6 X10*3/uL (1.2-4.9); Lymphocytes Percent Auto 33.7 % (20-40); Mean Corpuscular HGB Conc 31.9 g/dl (31.0-36.0); Mean Corpuscular Hemoglobin 31.6 pg (27.0-33.0); Mean Corpuscular Volume 99.1 fL (80.0-98.0); Mean Platelet Volume 11.2 fL (9.4-12.4); Monocytes Absolute Auto 1.1 X10*3/uL (0.1-1.2); Neutrophils Absolute Auto 5.4 x10*3/uL (2.0-8.3); Neutrophils Percent Auto 50.9 % (45-73); Platelet Count 223 X10*3/uL (160-400); Red Blood Count 4.24 X10*6/uL (4.60-5.80); Red Cell Distribution Width 14.9 % (11.0-16.0); White Blood Count 10.6 X10*3/uL (4.8-10.8)
[2023-02-12 11:09] LABS: Appearance Urine Clear; Color Urine Yellow; Glucose Urine UA Negative (Negative); Leukocyte Esterase Urine Negative (Negative); Nitrite Urine Negative (Negative); PH 7.5 (5.0-9.0); Specific Gravity - Urine 1.025 (1.005-1.025); UMIC TRIGGER UACC YES; Urine Blood Negative (Negative); Urine Ketones Trace mg/dL (Negative); Urine Protein 30 (1+) mg/dL (Neg-Trace)
[2023-02-12 11:14] LABS: Bacteria Urine None Seen (None Seen); Hyaline Casts Urine 0-2 /LPF (0-2); RBC Urine 0-2 /HPF (0-2); Squamous Epithelial Cell Urine 0-2 /HPF (0-2); WBC Urine 0-5 /HPF (0-5)
[2023-02-12 12:37] LABS: Alanine Aminotransferase 17 U/L (0-40); Alkaline Phosphatase 104 U/L (39-117); Aspartate Amino Transferase 21 U/L (5-37); Bilirubin Total 0.9 mg/dL (0.0-1.0); Blood Urea Nitrogen 22 mg/dL (9-16); Calcium 8.9 mg/dL (8.4-10.2); Cholesterol 141 mg/dL; Estimated Glomerular Filt Rate > 60; Glucose Fasting 97 mg/dL (60-99); HDL Cholesterol 51 mg/dL; Iron 84 mcg/dL (45-160); LDL Cholesterol Calculated 72 mg/dl; Percent Iron Saturation 29 % (15-50); Total Iron Binding Capacity 293 mcg/dL (228-428); Total Protein 6.7 g/dL (6.5-8.0); Triglycerides 90 mg/dL; Unsaturated Iron Binding 209 ug/dL
[2023-02-12 12:58] LABS: Anion Gap 12 (12-20); Carbon Dioxide 37 mmol/L (22-29); Chloride 99 mmol/L (96-108); Sodium 144 mmol/L (135-145)
[2023-02-12 13:46] LABS: PSA,Total (Free>4and<10) < 0.10 ng/mL (0.00-4.00)
[2023-02-19 19:32] LABS: Testosterone, Free 18.7 pg/mL (30.0-135.0); Testosterone, Total 172 ng/dL (250-1100)
== END 2023-02-12 10:43 | disposition home or self-care (01) ==
LOC: HO.LNP 10:42
PROVIDERS: Visit Provider Internal Medicine
DX: Z00.00 Encounter for general adult medical examination without abnormal findings (principal); Z12.5 Encounter for screening for malignant neoplasm of prostate; I10 Essential (primary) hypertension; E29.1 Testicular hypofunction; D50.9 Iron deficiency anemia, unspecified
CPT/HCPCS: 80053; 80061; 81001; 83540; 84153; 84402; 84403; 85025

== ENCOUNTER → 2023-02-28 15:16 | Outpatient (BNVA) | payer MEDICARE, SELFPAY | PROVIDERS: PCP Internal Medicine; Referring Provider Internal Medicine; Visit Provider Nurse Practitioner Family | DX: I21.4 Non-ST elevation (NSTEMI) myocardial infarction (principal); I10 Essential (primary) hypertension; Z99.81 Dependence on supplemental oxygen | CPT/HCPCS: 99212 ==

== ENCOUNTER 2023-06-07 10:24 | Outpatient (REF) | payer MEDICARE, SELFPAY ==
[2023-06-07 14:52] LABS: Prostate Specific Antigen < 0.10 ng/mL (<0.05-4.0)
== END 2023-06-07 10:25 | disposition home or self-care (01) ==
LOC: HO.HMGCLDS 10:24
PROVIDERS: PCP Internal Medicine; Visit Provider Urology
DX: Z12.5 Encounter for screening for malignant neoplasm of prostate (principal); C61 Malignant neoplasm of prostate
CPT/HCPCS: 36415; 84153

== ENCOUNTER 2023-06-18 13:32 | Outpatient (AMB) | payer MEDICARE, SELFPAY ==
[2023-06-18 13:39] VITALS: BP 134/67; PULSE 85; O2SAT 94; BMI 26.4
--- NOTE | 2023-06-18 13:39 | A.OFFVIS_ITS ---
Intake Vital Signs 06/18/23 13:39 Height 5 ft 7 in Weight 168 lb 10.458 oz BMI 26.4 BP 134/67 Blood Pressure Location Rt brachial Position Sitting Pulse 85 Pulse Source Doppler Pulse Oximetry (%) 94 Oxygen Delivery Method Nasal Cannula Oxygen Flow Rate 2 Intake Visit Reasons: COPD Allergies pneumococcal vaccine [PNEUMOCOCCAL VACCINE] Allergy (Intermediate, Verified 06/18/23 13:41) RASH amoxicillin [From Augmentin] Allergy (Unknown, Verified 06/18/23 13:41) Swelling clavulanic acid [From Augmentin] Allergy (Unknown, Verified 06/18/23 13:41) Swelling HPI COPD HPI Details 82-year-old gentleman, greater than 50 p ack-year smoker, quit 2018 followed for moderate to severe COPD supplementary oxygen at 2 L dependent, pulmonary nodules, and dyspnea on exertion.? He continues on DuoNebs and theophylline with reasonable control of his symptoms. He denies any recent exacerbations. He does complain of worsening lower extremity edema, orthopnea, and dyspnea on exertion. [facility] Medical History COPD (chronic obstructive pulmonary disease) Essential hypertension Gout High cholesterol Hypertension Prostate cancer Pulmonary nodules Surgical History History of spinal surgery Family History Father No problems noted. Mother No problems noted. Social History Alcohol intake: current Alcohol intake frequency: does not drink Alcohol type: wine Patient Tobacco Use Status: Former Tobacco user Quit Date: 2016 Years Smoked: 60 yrs Second Hand Smoke Exposure: No service: Yes Current occupational status: retired Review of Systems Const Denies daytime sleepiness, Denies excessive sweating, Denies fatigue, Denies fever(s), Denies lethargy, Denies malaise, Denies night sweats, Denies snoring and Denies weight loss Eyes Denies blurry vision and Denies itchy eyes ENT Denies nasal congestion, Denies post nasal drip, Denies sinus pain, Denies sinus pressure and Denies other ( Thrush) Card Denies chest pain, Reports pedal edema, Denies dyspnea, Reports dyspnea on exertion, Denies orthopnea and Denies paroxysmal nocturnal dyspnea Resp Denies cough, Denies hemoptysis, Denies excessive phlegm production, Denies dyspnea, Reports dyspnea on exertion, Denies snoring and Denies wheezing GI Denies abdominal pain and Denies heartburn Musc Denies myalgias, Denies arthralgias and Denies joint swelling Skin/Breast Denies rash Neuro Denies memory loss and Denies seizure-like activity Psych Denies abnormal sleep pattern, Denies anxiety and Denies memory loss Endo Denies excessive sweating, Denies fatigue and Denies heat intolerance Alexander/Lymph Denies easy bruising Aller/Immun Denies itchy eyes, Denies seasonal rhinorrhea and Denies wheezing Physical Exam Vital Signs: Last Vital Signs Pulse 85 06/18/23 13:39 BP 134/67 06/18/23 13:39 Pulse Ox 94 06/18/23 13:39 Oxygen Delivery Method Nasal Cannula 06/18/23 13:39 Oxygen Flow Rate 2 06/18/23 13:39 BMI result Body Mass Index 26.4 Const General: no acute distress and alert Nutritional Appearance: not obese Orientation/consciousness: Other orientation findings ( oriented) HEENT Head: Yes atraumatic Eyes General: appearance normal, both eyes and all related structures Sclerae: sclerae normal EOM: EOMs intact bilaterally Neck Neck: Yes supple Lymphatic: no lymphadenopathy noted Resp Effort & Inspection: normal respiratory effort and no use of accessory muscles Auscultation: crackles (Mild bilateral) Cardio Rate: regular rate Rhythm: regular rhythm Heart sounds: no gallops, no murmurs and no rubs Skin General skin exam: other ( warm) Extrem General: No clubbing, No cyanosis and Yes edema (1+ bilateral) Assessment & Plan Assessment & Plan (1) COPD (chronic obstructive pulmonary disease): Code(s): J44.9 - Chronic obstructive pulmonary disease, unspecified Plan: Baseline well controlled on current regimen of duo nebs and theophylline. Continue current regimen. Now with some orthopnea and lower extremity edema. Patient has been advised to double his diuretic over the next 3-5 days. (2) Supplemental oxygen dependent: Code(s): Z99.81 - Dependence on supplemental oxygen Plan: Continue supplemental oxygen to maintain O2 saturation of 88-92%. (3) Pulmonary nodules: Code(s): R91.8 - Other nonspecific abnormal finding of lung field Plan: Results of most recent CT scan reviewed common decreasing pulmonary nodules. At this time no further imaging follow-up is required. Coding Level of Care Code Est Pt Level 4 (30704) Diagnoses COPD (chronic obstructive pulmonary disease) J44.9 Supplemental oxygen dependent Z99.81 Pulmonary nodules R91.8
== END 2023-06-18 13:57 | disposition home or self-care (01) ==
PROVIDERS: PCP Internal Medicine; Visit Provider Internal Medicine Pulmonary Disease
DX: J44.9 Chronic obstructive pulmonary disease, unspecified (principal); Z99.81 Dependence on supplemental oxygen; R91.8 Other nonspecific abnormal finding of lung field
CPT/HCPCS: 99214

== ENCOUNTER → 2023-06-18 13:32 | Outpatient (BNVA) | payer MEDICARE, SELFPAY | PROVIDERS: PCP Internal Medicine; Visit Provider Internal Medicine Pulmonary Disease | DX: J44.9 Chronic obstructive pulmonary disease, unspecified (principal); R91.8 Other nonspecific abnormal finding of lung field; Z79.899 Other long term (current) drug therapy; Z99.81 Dependence on supplemental oxygen | CPT/HCPCS: 99212 ==

== ENCOUNTER 2023-07-02 09:13 | Outpatient (AMB) | payer MEDICARE, SELFPAY ==
--- NOTE | 2023-07-02 09:16 | MHC.OFFVIS ---
Intake Intake Visit Reasons: 6m/PSA(set) Intake Note: Patient is Present for Follow Up PSA/PVR Urology Medication: Tamsulosin Antibiotic Allergies: Amoxicillin Blood Thinners: Aspirin Pharmacy: [facility] PVR: 72ml Allergies pneumococcal vaccine [PNEUMOCOCCAL VACCINE] Allergy (Intermediate, Verified 07/02/23 09:17) RASH amoxicillin [From Augmentin] Allergy (Unknown, Verified 07/02/23 09:17) Swelling clavulanic acid [From Augmentin] Allergy (Unknown, Verified 07/02/23 09:17) Swelling Medication List - Last Reconciled 07/02/23 by Catarino Gottlieb MD albuterol sulfate 90 mcg/actuation 2 puffs PO Q2H PRN amlodipine 5 mg PO DAILY aspirin 81 mg PO DAILY atorvastatin 40 mg PO DAILY azithromycin For 250 mg dose pack: take 500 mg today (day 1), then 250 mg for 4 days (days 2-5) PO carvedilol 3.125 mg PO BID furosemide 40 mg PO DAILY ipratropium-albuterol 0.5 mg-3 mg(2.5 mg base)/3 mL 3 mL inhalation Q6H 30 days meclizine 25 mg PO DAILY PRN nystatin topical BID tamsulosin 0.4 mg PO BID theophylline ER 600 mg PO DAILY tolterodine ER 4 mg PO DAILY 30 days zolpidem 5 mg PO BEDTIME PRN HPI HPI Comments History of Present Illness Details Kalyan is a pleasant male. He is a patient of Dr. Gamboa. 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 Chahal February 2020 Prostate biopsy for elevated PSA - 16 [place] score 4+4(A); 4+3(B); 3+3(D) Number cores positive 3 Total number of cores 12 % of tissue involved 5% Therapy. GnRH with gold seed markers and radiation with 18 month hormones [facility] completed December 2020 - associated symptoms rectal urgency PSA - 01/25 <0.1, 07/27 <0.1, 10/28 <0.1 T 2, 01/26 <0.1, 05/28 <0.1, 09/27 <0.1, 02/26 T 172, 06/29 <0.1 PFSH Medical History High cholesterol Gout Hypertension Essential hypertension Prostate cancer Pulmonary nodules COPD (chronic obstructive pulmonary disease) Surgical History History of spinal surgery Family History Father No problems noted. Mother No problems noted. Social History Alcohol intake: current Alcohol intake frequency: does not drink Alcohol type: wine Patient Tobacco Use Status: Former Tobacco user Quit Date: 2015 Years Smoked: 60 yrs Second Hand Smoke Exposure: No service: Yes Current occupational status: retired Review of Systems Const Denies chills and Denies fever(s) Card Reports no additional complaints and Denies syncope Resp Denies cough GI Denies abdominal pain and Denies heartburn Reports as per HPI and Denies change in libido Neuro Denies syncope Psych Denies change in libido Endo Denies change in libido Physical Exam Const General: cooperative, healthy appearing, comfortable and no acute distress Orientation/consciousness: patient oriented x3 HEENT Face and sinus: Yes normal facial exam Mouth: moist mucous membranes Neck Neck: Yes normal visual inspection, Yes full ROM and Yes trachea midline Chest Chest palpation & inspection: normal inspection of the chest Resp Effort & Inspection: normal respiratory effort, able to speak in complete sentences and no respiratory distress GI Inspection: Yes normal to inspection Back/Spine/Pelvis Cervical Spine: normal cervical lordosis Thoracic/Lumbar Spine: thoracic and lumbar spine normal to inspection Skin General skin exam: no rashes or lesions noted Neuro General: patient oriented x3, gait normal, tone normal and moves all extremities Extrem General: Yes normal to inspection and Yes capillary refill normal Office Procedures Post Void Residual Post Residual Void Post Void Residual (PVR): 72 [id number] Void Residual by ultrasound Results AMB Urinalysis, Automated UA Leukoctes 0 Susan/uL Last Edit by Marlena Lynn, A on 07/02/23 09:25 UA Nitrite Negative Last Edit by Marlena Lynn, A on 07/02/23 09:25 UA Urobilinogen 0.2 mg/dL Last Edit by Marlena Lynn, A on 07/02/23 09:25 UA Protein 0 mg/dL Last Edit by Marlena Lynn, A on 07/02/23 09:25 UA pH 7.5 Last Edit by Marlena Lynn, RMA on 07/02/23 09:25 UA Blood 0 Alex/uL Last Edit by Marlena Lynn, A on 07/02/23 09:25 UA Specific [place] 1.015 Last Edit by Marlena Lynn, A on 07/02/23 09:25 UA Ketone Negative Last Edit by Marlena Lynn, A on 07/02/23 09:25 UA Bilirubin 0 mg/dL Last Edit by Marlena Lynn, A on 07/02/23 09:25 UA Glucose 0 mg/dL Last Edit by Marlena Lynn, A on 07/02/23 09:25 Results Reviewed Results Reviewed: Laboratory Last Values Urine pH (Auto) 7.5 07/02/23 09:18 Specific [place] (Auto) 1.015 07/02/23 09:18 Urine Protein (Auto) 0 mg/dL 07/02/23 09:18 Glucose (UA)(Auto) 0 mg/dL 07/02/23 09:18 Urine Ketones (Auto) Negative 07/02/23 09:18 Urine Blood (Auto) 0 Alex/uL 07/02/23 09:18 Urine Nitrite (Auto) Negative 07/02/23 09:18 Urine Bilirubin (Auto) 0 mg/dL 07/02/23 09:18 Urine Urobilinogen (Auto) 0.2 mg/dL 07/02/23 09:18 Leukocyte Esterase (Auto) 0 Susan/uL 07/02/23 09:18 Assessment & Plan Assessment & Plan (1) Urinary urgency: Code(s): R39.15 - Urgency of urination (2) Prostate cancer: Comment: February 2021 High-grade, external beam radiation with 18 months GnRH Code(s): C61 - Malignant neoplasm of prostate Plan Trial tolterodine Orders: Orders AMB Post Void Residual by ultrasound Today R39.15 - Urgency of urination AMB Urinalysis Automated Today Z13.9 - Encounter for screening, unspecified Medications: New tolterodine ER 4 mg PO DAILY 30 days 30 caps 1RF R39.15 - Urgency of urination Patient Instructions: Imaging studies, laboratory and physical exam results were discussed and reviewed in detail. No major barriers to patient understanding were identified. An opportunity to ask questions regarding the treatment plan was provided. All questions were answered. The patient expressed understanding and agreement with the above treatment plan. The patient is aware they should contact our office by phone for worsening of their current condition or the appearance of new urologic symptoms. Compliance is encouraged with any medications and followup testing that is ordered. It is a privilege to participate in the urologic care of your patient. If you have any questions or concerns regarding treatment for the above conditions, or other urologic issues, please do not hesitate to contact me. The office telephone contact is [phone]. This note is constructed using voice recognition software. While every effort has been made to ensure accuracy occupational health specialist errors may have been included. Yours sincerely, Dr Catarino Gottlieb MD, [facility] - Urology Providers of Expert, Compassionate Care for the Genitourinary System Coding Level of Care Code Est Pt Level 4 (95045) Diagnoses Urinary urgency R39.15 Prostate cancer C61 CPT Codes Post Residual Void - PVR CPT Code: 12184-[place] Void Residual by ultrasound ([id number])
== END 2023-07-02 09:40 | disposition home or self-care (01) ==
PROVIDERS: PCP Internal Medicine; Visit Provider Urology
DX: R39.15 Urgency of urination (principal); C61 Malignant neoplasm of prostate; Z13.9 Encounter for screening, unspecified
CPT/HCPCS: 99214

== ENCOUNTER → 2023-07-02 09:13 | Outpatient (BNVA) | payer MEDICARE, SELFPAY | PROVIDERS: Visit Provider Urology | DX: R39.15 Urgency of urination (principal); C61 Malignant neoplasm of prostate | CPT/HCPCS: 51798; 81003; 99212 ==

== ENCOUNTER 2023-08-14 07:57 | Outpatient (REF) | payer MEDICARE, SELFPAY ==
[2023-08-14 11:46] LABS: Cholesterol 135 mg/dL (<200); HDL Cholesterol 50 mg/dL (>40); LDL Cholesterol Calculated 66 mg/dL (<100); Triglycerides 99 mg/dL (<150)
[2023-08-14 11:53] LABS: Alanine Aminotransferase 13 U/L (0-40); Alkaline Phosphatase 96 U/L (39-117); Aspartate Amino Transferase 21 U/L (5-37); Bilirubin Direct 0.3 mg/dL (0.0-0.5); Bilirubin Total 0.9 mg/dL (0.0-1.0); Total Protein 7.2 g/dL (6.5-8.0)
[2023-08-14 12:00] LABS: Reflex LDLD? No
== END 2023-08-14 07:58 | disposition home or self-care (01) ==
LOC: HO.HMGCLDS 07:57
PROVIDERS: PCP Internal Medicine; Visit Provider Internal Medicine
DX: E78.00 Pure hypercholesterolemia, unspecified (principal)
CPT/HCPCS: 36415; 80061; 80076

== ENCOUNTER 2023-08-21 13:11 | Outpatient (AMB) | payer MEDICARE, SELFPAY ==
[2023-08-21 13:20] VITALS: BP 120/76; PULSE 95; BMI 25.9
--- NOTE | 2023-08-21 13:20 | A.OFFVIS_ITS ---
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 Accompanied by: Spouse Allergies pneumococcal vaccine [PNEUMOCOCCAL VACCINE] Allergy (Intermediate, Verified 07/02/23 09:17) RASH amoxicillin [From Augmentin] Allergy (Unknown, Verified 07/02/23 09:17) Swelling clavulanic acid [From Augmentin] Allergy (Unknown, Verified 07/02/23 09:17) Swelling Medication List - Last Reconciled 08/21/23 by Minor Gautam MD albuterol sulfate 90 mcg/actuation 2 puffs PO Q2H PRN amlodipine 5 mg PO DAILY aspirin 81 mg PO DAILY atorvastatin 40 mg PO DAILY carvedilol 3.125 mg PO BID furosemide 40 mg PO DAILY ipratropium-albuterol 0.5 mg-3 mg(2.5 mg base)/3 mL 3 mL inhalation Q6H 30 days meclizine 25 mg PO DAILY PRN nystatin topical BID tamsulosin 0.4 mg PO BID theophylline ER 600 mg PO DAILY tolterodine ER 4 mg PO DAILY zolpidem 5 mg PO BEDTIME PRN HPI HPI Comments History of Present Illness Details 82-year-old gentleman with background hi story of hypertension, COPD, dyspnea on exertion and prostate cancer. His blood pressure was previously well controlled on amlodipine and hydrochlorothiazide. Early April 2021 he had a bad headache and went to the emergency department and was noticed to have significantly elevated blood pressures. He was admitted and started on medications. He said after addition of lisinopril and amlodipine his blood pressure dropped too low and he developed kidney injury. After that all his med ication was stopped and he was sent home. He is denying any more headaches. He has no chest discomfort shortness of breath. He had mildly abnormal troponin levels in the setting of high blood pressures which was thought to be type 2 [place]. subsequent to that he was referred for a nuclear perfusion study which was normal. On last visit we added amlodipine back because of blood pressure was elevated. It appears his amlodipine was increased and he was up to 10 mg of amlodipine. He said recently Dr. Pepper decreased it to 5 mg. In the office his blood pressure is 150s. He is denying any significant symptoms other than shortness of breath which has been a chronic issue for him due to his COPD. 08/21/23: Here for f/u. He has been on s upplemental oxygen x 3 L. He has been SOB with activity due to COPD. He is saying his oxygen saturations are 80% without oxygen. He also has irregular heart rhythm today. He has no palpitations. [facility] Medical History High cholesterol Gout Hypertension Essential hypertension Prostate cancer Pulmonary nodules COPD (chronic obstructive pulmonary disease) Surgical History History of spinal surgery Family History Father No problems noted. Mother No problems noted. Social History Alcohol intake: current Alcohol intake frequency: does not drink Alcohol type: wine Patient Tobacco Use Status: Former Tobacco user Quit Date: 2015 Years Smoked: 60 yrs Second Hand Smoke Exposure: No service: Yes Current occupational status: retired Review of Systems Const Denies chills, Denies fatigue, Denies fever(s), Denies frequent falls, Denies weakness, Denies weight gain and Denies weight loss ENT Denies dizziness Card Denies chest pain, Denies leg edema, Denies lightheadedness, Denies palpitations, Denies dyspnea, Denies dyspnea on exertion, Denies orthopnea and Denies other (loss of consciousness) Resp Denies cough, Denies dyspnea and Denies dyspnea on exertion GI Denies hematochezia and Denies change in stool character Musc Denies abnormal gait, Denies muscle weakness, Denies numbness, Denies radiating pain into limb and Denies tingling Neuro Denies abnormal gait, Denies dizziness, Denies frequent falls, Denies numbness, Denies tingling and Denies weakness Endo Denies fatigue and Denies palpitations Physical Exam Vital Signs: Last Vital Signs Pulse 95 08/21/23 13:20 BP 120/76 08/21/23 13:20 BMI result Body Mass Index 25.9 GENERAL APPEARANCE: in no acute distress. on supplemental oxygen. NECK/THYROID: no carotid bruit, no jugular venous distention. SKIN: no suspicious lesions, warm and dry. HEART: no murmurs, irregular rate and rhythm, S1, S2 normal. LUNGS: clear to auscultation bilaterally. ABDOMEN: normal, bowel sounds present, soft, nontender, nondistended. EXTREMITIES: no clubbing, cyanosis, or edema. PERIPHERAL PULSES: equal. NEUROLOGIC: nonfocal, alert and oriented. PSYCH: mood/affect full range. Office Procedures EKG Details: Atrial fibrillation 107 beats per minute, right axis deviation, poor R-wave progression and cannot rule out septal infarct, QTC 427 milliseconds. [id number], Complete Assessment & Plan Assessment & Plan (1) PAF (paroxysmal atrial fibrillation): Code(s): I48.0 - Paroxysmal atrial fibrillation (2) Essential hypertension: Code(s): I10 - Essential (primary) hypertension Plan 82 male with HTN, prostate cancer and COPD. He has new onset Afib. Stopped ASA and added Apixaban. HR in 100s. Will arrange a Holter monitor x 3 days to see how his average heart rate is. I have advised him to use oxygen frequently as his oxygen sats without supplemental oxygen is 80%. Will also arrange echo. c/w rest of the meds. f/u in 6-8 weeks. Orders: Orders ECG 3 day holter monitor Today I48.0 - Paroxysmal atrial fibrillation CA echo transthoracic complete Today I48.0 - Paroxysmal atrial fibrillation Medications: New apixaban 5 mg PO BID 60 tabs 6RF I48.0 - Paroxysmal atrial fibrillation Changed From tolterodine ER 4 mg PO DAILY 30 days 30 caps 1RF R39.15 - Urgency of urination To tolterodine ER 4 mg PO DAILY R39.15 - Urgency of urination Coding Level of Care Code Est Pt Level 4 (36038) Diagnoses PAF (paroxysmal atrial fibrillation) I48.0 Essential hypertension I10 CPT Codes EKG - CPT: 51706-Xzehidkrpitritlid, Complete ([id number])
== END 2023-08-21 14:02 | disposition home or self-care (01) ==
PROVIDERS: Visit Provider Internal Medicine Cardiovascular Disease
DX: I48.0 Paroxysmal atrial fibrillation (principal); I10 Essential (primary) hypertension
CPT/HCPCS: 93010; 99214

== ENCOUNTER → 2023-08-21 13:11 | Outpatient (BNVA) | payer MEDICARE, SELFPAY | PROVIDERS: Visit Provider Internal Medicine Cardiovascular Disease | DX: I48.0 Paroxysmal atrial fibrillation (principal); I10 Essential (primary) hypertension; Z99.81 Dependence on supplemental oxygen | CPT/HCPCS: 93005; 99212 ==

== ENCOUNTER → 2023-08-23 10:43 | Outpatient (REF) | payer MEDICARE, SELFPAY ==
--- NOTE | 2023-08-23 10:45 | HM_ITS ---
Conclusion: 1. Patient was monitored for total period of 3 days 2. Baseline was atrial fibrillation with average heart of 92 beats per minute with overall borderline rate control 3. No significant pauses noted 4. Rare PACs noted 5. One 5 beat wide complex run which is most consistent with aberrant conduction 6. Patient marked the counter 1 time without reporting symptoms correlating baseline atrial fibrillation MTDD
== END ==
LOC: HO.CARD 10:43
PROVIDERS: PCP Internal Medicine; Visit Provider Internal Medicine Cardiovascular Disease
DX: I48.0 Paroxysmal atrial fibrillation (principal)
CPT/HCPCS: 93242

== ENCOUNTER → 2023-08-23 10:45 | Outpatient (BNV) | payer MEDICARE, SELFPAY | PROVIDERS: PCP Internal Medicine; Visit Provider Internal Medicine Cardiovascular Disease | DX: I48.0 Paroxysmal atrial fibrillation (principal) | CPT/HCPCS: 93244 ==

== ENCOUNTER 2023-09-04 08:51 | Outpatient (AMB) | payer MEDICARE, SELFPAY ==
--- NOTE | 2023-09-04 08:51 | A.OFFVIS_ITS ---
Intake Intake Visit Reasons: 2m follow up Intake Note: Patient is Present for Follow Up PSA/PVR Urology Medication: Tamsulosin & Tolterodine Antibiotic Allergies: Amoxicillin Blood Thinners: Aspirin Pharmacy: [facility] Vegetable Required: No Accompanied by: Self / Same As Patient Allergies pneumococcal vaccine [PNEUMOCOCCAL VACCINE] Allergy (Intermediate, Verified 09/04/23 08:53) RASH amoxicillin [From Augmentin] Allergy (Unknown, Verified 09/04/23 08:53) Swelling clavulanic acid [From Augmentin] Allergy (Unknown, Verified 09/04/23 08:53) Swelling Medication List - Last Reconciled 09/04/23 by Catarino Gottlieb MD albuterol sulfate 90 mcg/actuation 2 puffs PO Q2H PRN amlodipine 5 mg PO DAILY apixaban 5 mg PO BID atorvastatin 40 mg PO DAILY carvedilol 3.125 mg PO BID furosemide 40 mg PO DAILY ipratropium-albuterol 0.5 mg-3 mg(2.5 mg base)/3 mL 3 mL inhalation Q6H 30 days meclizine 25 mg PO DAILY PRN nystatin topical BID tamsulosin 0.4 mg PO BEDTIME 90 days theophylline ER 600 mg PO DAILY zolpidem 5 mg PO BEDTIME PRN HPI HPI Comments History of Present Illness Details Kalyan is a pleasant male. He is a patient of Dr. Gamboa. 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 Chahal February 2020 Prostate biopsy for elevated PSA - 16 [place] score 4+4(A); 4+3(B); 3+3(D) Number cores positive 3 Total number of cores 12 % of tissue involved 5% Therapy. GnRH with gold seed markers and radiation with [address] [facility] completed December 2020 - associated symptoms rectal urgency PSA - 01/25 <0.1, 07/27 <0.1, 10/28 <0.1 T 2, 01/26 <0.1, 05/28 <0.1, 09/27 <0.1, 02/26 T 172, 06/29 <0.1 PFSH Medical History High cholesterol Gout Hypertension Essential hypertension Prostate cancer Pulmonary nodules COPD (chronic obstructive pulmonary disease) Surgical History History of spinal surgery Family History Father No problems noted. Mother No problems noted. Social History Alcohol intake: current Alcohol intake frequency: does not drink Alcohol type: wine Patient Tobacco Use Status: Former Tobacco user Quit Date: 2015 Years Smoked: 60 yrs Second Hand Smoke Exposure: No service: Yes Current occupational status: retired Assessment & Plan Assessment & Plan (1) Urinary urgency: Code(s): R39.15 - Urgency of urination (2) Prostate cancer: Comment: February 2021 High-grade, external beam radiation with 18 months GnRH Code(s): C61 - Malignant neoplasm of prostate Plan Four month follow-up PSA Orders: Orders Prostate Specific Antigen 4 Months C61 - Malignant neoplasm of prostate Medications: Changed From apixaban 5 mg PO BID 60 tabs 6RF I48.0 - Paroxysmal atrial fibrillation To apixaban 5 mg PO BID I48.0 - Paroxysmal atrial fibrillation From tamsulosin 0.4 mg PO BID R39.15 - Urgency of urination To tamsulosin 0.4 mg PO BEDTIME 90 days 90 caps 1RF R39.15 - Urgency of urination Patient Instructions: Imaging studies, laboratory and physical exam results were discussed and reviewed in detail. No major barriers to patient understanding were identified. An opportunity to ask questions regarding the treatment plan was provided. All questions were answered. The patient expressed understanding and agreement with the above treatment plan. The patient is aware they should contact our office by phone for worsening of their current condition or the appearance of new urologic symptoms. Compliance is encouraged with any medications and followup testing that is ordered. It is a privilege to participate in the urologic care of your patient. If you have any questions or concerns regarding treatment for the above conditions, or other urologic issues, please do not hesitate to contact me. The office telephone contact is [phone]. This note is constructed using voice recognition software. While every effort has been made to ensure accuracy city administrator errors may have been included. Yours sincerely, Dr Catarino Gottlieb MD, [facility] - Urology Providers of Expert, Compassionate Care for the Genitourinary System Telehealth Telehealth Location of provider rendering services: practice address Location of patient: address on file Patient Identification confirmed using: Name, : Yes Telehealth method: video Patient verbally consented to treatment: Yes Patient verbally consented to billing insurance company: Yes Patient informed of any privacy concerns related to visit: Yes Coding Level of Care Code Tele Est Pt Level 3 (98697) Diagnoses Urinary urgency R39.15 Prostate cancer C61
== END 2023-09-04 09:41 | disposition home or self-care (01) ==
LOC: HO.HUSH 08:51
PROVIDERS: PCP Internal Medicine; Visit Provider Urology
DX: C61 Malignant neoplasm of prostate (principal); R39.15 Urgency of urination
CPT/HCPCS: 99213

== ENCOUNTER → 2023-09-04 08:51 | Outpatient (BNVA) | payer MEDICARE, SELFPAY | PROVIDERS: PCP Internal Medicine; Visit Provider Urology ==

== ENCOUNTER 2023-09-13 13:22 | Outpatient (AMB) | payer MEDICARE, SELFPAY ==
--- NOTE | 2023-09-13 13:56 | MHC.OFFVISCO ---
Intake Intake Visit Reasons: Anticoagulation Cold Roll Inspector Required: No Allergies pneumococcal vaccine [PNEUMOCOCCAL VACCINE] Allergy (Intermediate, Verified 09/13/23 13:49) RASH amoxicillin [From Augmentin] Allergy (Unknown, Verified 09/13/23 13:49) Swelling clavulanic acid [From Augmentin] Allergy (Unknown, Verified 09/13/23 13:49) Swelling theophylline Adverse Reaction (Intermediate, Verified 09/13/23 13:54) Loss of Appetite Medication List - Last Reconciled 09/13/23 by Amisha Winter RN albuterol sulfate 90 mcg/actuation 2 puffs PO Q2H PRN amlodipine 5 mg PO DAILY atorvastatin 40 mg PO DAILY carvedilol 3.125 mg PO BID furosemide 40 mg PO DAILY ipratropium-albuterol 0.5 mg-3 mg(2.5 mg base)/3 mL 3 mL inhalation Q6H 30 days meclizine 25 mg PO DAILY PRN nystatin topical BID tamsulosin 0.4 mg PO BID 90 days warfarin 3 mg PO DIRECTED 30 days zolpidem 5 mg PO BEDTIME PRN Nursing Note INR 1.1-?? out of therapeutic range of 2-3 Medications and supplements reviewed Patient status: pt admitted to [facility] with diagnosis of afib acompanied by megha. pt currently on eliquis and warfarin. started warfarin on sat09/10/23 pt on eliquis since 08/21/23 Medications or supplements: reviewed with pt and brisa. pt states no longer taking theophyllin due to prev adverse reaction. vit b 12 and mvi added to med list Diet: good. food list provided and reviewed with pt Denies any signs and symptoms of bleeding or clotting or unusual bruising Bleeding, bruising, clotting discussed - s/s reviewed with pt Nutritional guidance given: no greens for 3 days, eat reds to raise inr Dose: 4.5mg today and tomm then cont 3mg daily F/U INR Date : saturday09/16/23?? Patient verbalizing understanding of instructions given. pmh reviewed with pt, educational material provided and reviewed. pt agreement and no show policy reviewed and signed. pt states takes warfarin in the am but did not take warfarin or am eliquis today. pt will take warfarin at same time daily. pt with hx copd- on cont oxygen via nasal cannulla. pt with history prostate cancer and completed radiation for this. pt wrangell with bilat hearing aids dr estrella's office called with low inr, dosing and f/u appt saturday. spoke to lizzie at 1445. pt to cont eliquis until inr therapeutic. 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 Illness/Depression: No Surgeries: cervical neck surg, torn cartilage in knee, finger surg/trauma, prostate biopsy Anti-Coag. Education Record Teaching Recipient: Patient and Significant Other What is the easiest way to learn: Reading, Listening, Demonstration and Education Packet Barriers to Learning Identified: Physical (on oxygen cont) Physical: Hearing (hearing aids), Memory (occ memory issues) and Mobility Significant other who can be involved in Teaching Process when Indicated: Dotty Cold Roll Inspector Required: No Readiness To Learn: Good Teaching Methods: Demonstration, Discussion and Handout Response to Teaching: Reinforcement Needed Re-Education needs: Reinforce Content and Re-Teach Education Intervention/Brief Description of Teaching 1. Able to state reason for taking Warfarin: Yes 2. Able to state Pain Management techniques: Yes 3. Able to state action of Warfarin.: Yes Able to state current dose, pill color, how and when Warfarin to be taken: Yes Able to identify signs of bleeding &/or clotting: Yes 4. Able to identify need to keep diet consistent in regard to vitamin K intake: Yes Able to state restriction on alcohol: Yes 5. Able to state need for compliance with PT/INR testing: Yes Describes rationale for carrying ID and wearing Medic Alert bracelet: Yes Patient instructed to monitor for excess bruising or signs/symptoms of clotting or bleeding: Yes 6. Able to state that there are drugs that interact with Warfin: Yes 7. Able to state the need to seek medical attention when illness/injury occur.: Yes Describes the need to avoid activities with high risk of injury: Yes 8. Able to state duration of treatment: Yes 9. Demonstrates understanding of notifying all providers of pending dental surgical, or other invasive procedures: Yes 10. Able to state Home Care instructions Questionnaires HAS-BLED Does the patient had uncontrolled Hypertension?: No Does the patient have renal disease?: Yes Does the patient have liver disease?: No Does the patient have a history of stroke?: No Has the patient had major bleeding or predisposition to bleeding?: No Does the patient have labile INRs?: Yes Is the patient over 65 years of age?: Yes Is the patient on medications that gives them a predisposition to bleeding?: Yes Does the patient use alcohol?: Yes HAS-BLED Score: 5 CHADSVASC Age: 75 or over Gender: Male Does the patient have a history of CHF?: No Does the patient have a history of Hypertension?: Yes Does the patient have a history of Stroke/TIA/Thromboembolism?: No Does the patient have a history of Vascular Disease (prior IL, PAD or aortic plaque)?: Yes Does the patient have a history of Diabetes?: No CHADS VACS Score: 4 Haseeb Prediction Score Rsk VTE Active Cancer: Yes Previous VTE, excluding superficial vein thrombosis: No Reduced mobility: Yes Already known Thrombophilic Condition: No With-in last month Trauma and/or Surgery: No Elderly 70 year or older: No Heart and/or Respiratory Failure: No Acute Myocardial infarction and/or Ischemic Stroke: Yes Acute Infection and/or Rheumatologic Disorder: No Obesity (BMI 30 or greater): No Ongoing Hormonal Treatment: No Score: 7 Haseeb Score less than 4; Low Risk of VTE Haseeb Score 4 or greater; High Risk of VTE Coding Level of Care Code New Patient Level 2 Diagnoses Current use of anticoagulant therapy Z79.01 Results AMB INR Fingerstick AMB INR Fingerstick 1.1 Last Edit by Amisha Winter RN on 09/13/23 14:14 Assessment & Plan Assessment & Plan (1) Current use of anticoagulant therapy: 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
[2023-09-13 14:14] LABS: Prothrombin Time Whole Bld POC 12.7 sec (11.1-13.5); ~PT, ~INR - Anti Coag Clinic 1.1 (0.9-1.1)
== END 2023-09-13 15:21 | disposition home or self-care (01) ==
LOC: HO.ACS 13:22
PROVIDERS: PCP Internal Medicine; Visit Provider Internal Medicine
DX: Z79.01 Long term (current) use of anticoagulants (principal)

== ENCOUNTER → 2023-09-13 13:22 | Outpatient (BNVA) | payer MEDICARE, SELFPAY | PROVIDERS: PCP Internal Medicine; Visit Provider Internal Medicine | DX: I48.0 Paroxysmal atrial fibrillation (principal); Z79.01 Long term (current) use of anticoagulants; Z51.81 Encounter for therapeutic drug level monitoring | CPT/HCPCS: 85610; 99202 ==

== ENCOUNTER 2023-09-16 09:38 | Outpatient (AMB) | payer MEDICARE, SELFPAY ==
--- NOTE | 2023-09-16 09:50 | MHC.OFFVISCO ---
Intake Intake Visit Reasons: Anticoagulation Allergies pneumococcal vaccine [PNEUMOCOCCAL VACCINE] Allergy (Intermediate, Verified 09/16/23 09:43) RASH amoxicillin [From Augmentin] Allergy (Unknown, Verified 09/16/23 09:43) Swelling clavulanic acid [From Augmentin] Allergy (Unknown, Verified 09/16/23 09:43) Swelling theophylline Adverse Reaction (Intermediate, Verified 09/16/23 09:43) Loss of Appetite Medication List - Last Reconciled 09/16/23 by Amisha Winter RN albuterol sulfate 90 mcg/actuation 2 puffs PO Q2H PRN amlodipine 5 mg PO DAILY atorvastatin 40 mg PO DAILY carvedilol 3.125 mg PO BID cyanocobalamin (vitamin B-12) 1,000 mcg PO DAILY furosemide 40 mg PO DAILY ipratropium-albuterol 0.5 mg-3 mg(2.5 mg base)/3 mL 3 mL inhalation Q6H 30 days meclizine 25 mg PO DAILY PRN multivitamin (One Daily Multivitamin tablet) 1 tab PO DAILY nystatin topical BID tamsulosin 0.4 mg PO BID 90 days warfarin 3 mg See Protocol PO DIRECTED 30 days zolpidem 5 mg PO BEDTIME PRN Nursing Note INR 1.4-?? out of therapeutic range of 2-3 Medications and supplements reviewed Patient status: pt started warfarin 09/10/23, on eliquis overlap pt on cont oxygen, acompanied by Medications or supplements: topical cream- fluorouracil 5% daily Diet: appetite good Denies any signs and symptoms of bleeding or clotting or unusual bruising Bleeding, bruising, clotting discussed Nutritional guidance given: no greens for 3 days, eat reds to raise food list reviewed Dose: 4.5mg daily- cont eliquis F/U INR Date : 09/19/23?? Patient verbalizing understanding of instructions given. dr isaiah estrella's office called with low inr/dosing and f/u appt- spoke to lizzie at 1003, aware of eliquis overlap Anti-Coag Initial Assessment Social Hx Patient Tobacco Use Status: Former Tobacco user Quit Date: 2015 alcohol intake: current Alcohol intake frequency: 0-2 drinks per day Cardiovascular Hx: HTN, [place] (non stemi) and Arrhythmias (afib) Lung Disease HX: COPD Musculoskeletal Hx: Gout Blood Disorder Hx: Hyperlipidemia GI Hx: Hemorrhoids Hx: Kidney Disease (naren) and Prostate (prostate cancer) Cancer HX: Yes Psych. Illness/Depression: No Coding Level of Care Code Est Patient Level 1 Diagnoses Current use of anticoagulant therapy Z79.01 Assessment & Plan Assessment & Plan (1) Current use of anticoagulant therapy: Code(s): Z79.01 - skilled nursing (current) use of anticoagulants Category: Medical Medications: New fluorouracil 5% 1 appl topical DAILY
[2023-09-16 09:51] LABS: Prothrombin Time Whole Bld POC 16.3 sec (11.1-13.5); ~PT, ~INR - Anti Coag Clinic 1.4 (0.9-1.1)
== END 2023-09-16 10:05 | disposition home or self-care (01) ==
LOC: HO.ACS 09:38
PROVIDERS: PCP Internal Medicine; Visit Provider Internal Medicine
DX: Z79.01 Long term (current) use of anticoagulants (principal)

== ENCOUNTER → 2023-09-16 09:38 | Outpatient (BNVA) | payer MEDICARE, SELFPAY | PROVIDERS: PCP Internal Medicine; Visit Provider Internal Medicine | DX: I48.0 Paroxysmal atrial fibrillation (principal); Z79.01 Long term (current) use of anticoagulants; Z51.81 Encounter for therapeutic drug level monitoring | CPT/HCPCS: 85610; 99211 ==

== ENCOUNTER → 2023-09-17 12:42 | Outpatient (REF) | payer MEDICARE, SELFPAY ==
--- NOTE | 2023-09-17 12:47 | CA_ITS ---
Transthoracic Echocardiogram Patient (Last, First, Middle): Kalyan Nguyen R Gender: Male Date of : 1940 Age: 82 Procedure Date: 09/17/2023 Procedure Type: Transthoracic Echocardiogram Location: OP Height: 170.18 cm Weight: 70.76 kg BSA: 1.82 m2 Heart Rate: bpm BP: 122 / 78 mmHg Electrocardiogram Technician: SB Referring MD: Minor Gautam MD Home Care Aide: Minor Gautam MD Symptoms: I48.0 - Paroxysmal atrial fibrillation Study Quality: Adequate ECG Rhythm: Afib w RVR Conclusions: - Normal left ventricular size, thickness, and systolic function. The visually estimated ejection fraction is between 55-60%. - Normal right ventricular cavity size. There is borderline right ventricular systolic function. - The left atrium is moderately dilated. The right atrium is moderately dilated. - Mild pulmonary hypertension is present. Findings Left Ventricle Normal left ventricular size, thickness, and systolic function. The visually estimated ejection fraction is between 55-60%. There is no evidence of regional wall motion abnormalities. Diastolic function is indeterminate on the basis of available data. Right Ventricle Normal right ventricular cavity size. There is borderline right ventricular systolic function. Atria The left atrium is moderately dilated. The right atrium is moderately dilated. Aortic Valve There is mild calcification of the aortic valve. There is no aortic valve stenosis. There is no aortic valve regurgitation. Mitral Valve The mitral valve appears normal. There is mild mitral valve regurgitation. There is no mitral valve stenosis. Pulmonic Valve The pulmonic valve is likely normal. Tricuspid Valve Normal tricuspid valve structure. There is trace tricuspid valve regurgitation. Normal right atrial pressure. Mild pulmonary hypertension is present. Great Vessels The visualized portions of the pulmonary artery and branches are normal. Venous The inferior vena cava is normal in size and collapses greater than 50% with inspiration. Pericardium/Pleural There is no evidence of pericardial effusion. Prior Study Comparison Changes noted compared to prior study dated: 04/10/2021. Moderate biatrial enlargement, Borderline RV function, mild pulm HTN. Measurements 2D Linear Measurements IVSd: 0.94 0.6-0.9/0.6-1.0 cm LVIDd: 4.87 3.9-5.3/4.2-5.9 cm LVIDd Index: 2.68 2.4-3.2/2.2-3.1 cm/m2 LVIDs: 3.99 2.0-3.6 cm LVPWd: 0.88 0.7-1.1 cm LA Diam: 4.70 2.7-3.8/3.0-4.0 cm LAIDs Index: 2.58 1.5-2.3 cm/m2 LV Mass: 190.16 67-162/88-224 g LV Mass Index: 104.48 43-95/49-115 g/m2 LVOT Diam: 2.10 3.0+(-)1.3 cm 2D Systolic Function EF 4C: 48.90 >55% EF 2C: 64.30 >55% EF BiP: 57.60 >55% Mitral Valve MV Pk E: 1.10 E'Medial: 9.74 E/E' Med: 11.30 Aortic Valve AoV Pk Cristino: 1.51 AoV Pk Grad: 9.00 HENNA: 2.08 LVOT LVOT Pk Cristino: 0.91 LVOT Mn Cristino: 0.63 LVOT VTI: 0.16 LVOT Pk Grad: 3.00 LVOT Mn Grad: 2.00 LVOT Diam: 2.10 LVOT Area: 3.46 Diastolic Function MV Pk E: 1.10 E'Medial: 9.74 E/E' Med: 11.30 Right Ventricle TAPSE (mm): 18.80 TVS' Cristino: 8.55 Tricuspid Valve TR Pk Cristino: 2.78 TR Pk Grad: 31.00 RA Press: 3.00 RVSP: 41.00 Great Vessels Aorta Sinus of Valsalva: 3.40 2.0-3.5 cm Pulmonary Valve PV Pk Cristino: 0.90 Peak PV Grad: 3.00 Updated in Other Vendor System with Status of Final Minor Gautam MD electronically signed on 09/17/2023 2:30:05 PM with status of Final
== END ==
LOC: HO.CARD 12:42
PROVIDERS: PCP Internal Medicine; Visit Provider Internal Medicine Cardiovascular Disease
DX: I48.0 Paroxysmal atrial fibrillation (principal)
CPT/HCPCS: 93306

== ENCOUNTER → 2023-09-17 12:47 | Outpatient (BNV) | payer MEDICARE, SELFPAY | PROVIDERS: PCP Internal Medicine; Visit Provider Internal Medicine Cardiovascular Disease | DX: I34.0 Nonrheumatic mitral (valve) insufficiency (principal); I48.0 Paroxysmal atrial fibrillation | CPT/HCPCS: 93306 ==

== ENCOUNTER 2023-09-19 10:19 | Outpatient (AMB) | payer MEDICARE, SELFPAY ==
[2023-09-19 10:38] LABS: Prothrombin Time Whole Bld POC 15.2 sec (11.1-13.5); ~PT, ~INR - Anti Coag Clinic 1.3 (0.9-1.1)
--- NOTE | 2023-09-19 10:52 | MHC.OFFVISCO ---
Intake Intake Visit Reasons: Anticoagulation Allergies pneumococcal vaccine [PNEUMOCOCCAL VACCINE] Allergy (Intermediate, Verified 09/19/23 10:32) RASH amoxicillin [From Augmentin] Allergy (Unknown, Verified 09/19/23 10:32) Swelling clavulanic acid [From Augmentin] Allergy (Unknown, Verified 09/19/23 10:32) Swelling theophylline Adverse Reaction (Intermediate, Verified 09/19/23 10:32) Loss of Appetite Medication List - Last Reconciled 09/19/23 by Tri Ceballos RN albuterol sulfate 90 mcg/actuation 2 puffs PO Q2H PRN amlodipine 5 mg PO DAILY atorvastatin 40 mg PO DAILY carvedilol 6.25 mg PO BID cyanocobalamin (vitamin B-12) 1,000 mcg PO DAILY fluorouracil 5% 1 appl topical DAILY furosemide 40 mg PO DAILY ipratropium-albuterol 0.5 mg-3 mg(2.5 mg base)/3 mL 3 mL inhalation Q6H 30 days meclizine 25 mg PO DAILY PRN multivitamin (One Daily Multivitamin tablet) 1 tab PO DAILY nystatin topical BID tamsulosin 0.4 mg PO BID 90 days warfarin 3 mg See Protocol PO DIRECTED 30 days zolpidem 5 mg PO BEDTIME PRN Nursing Note PT.DENIES ANY CP,INCREASED SOB,DIET CHANGES OR SX OF BLEEDING. CARVEDILOL IS INCREASE TO 6.25MGM BID PT.REMAINS ON ELOQUIS BID. INCREASE WARFARIN TO 6MGM DAILY AND FOLLOW-UP ON 09/23/24. CONTINUE ELOQUIS IN MEANTIME. NO GREENS UNTIL AFTER 09/23 APPT. TO CALL [facility] IN MEANTIME IF ANY QUESTIONS/CONCERNS ARISE. GOOD UNDERSTANDING OF DOSING INSTR.BY PT.AND SPOUSE Anti-Coag Initial Assessment Social Hx Patient Tobacco Use Status: Former Tobacco user Quit Date: 2015 alcohol intake: current Alcohol intake frequency: 0-2 drinks per day Cardiovascular Hx: HTN, [place] (non stemi) and Arrhythmias (afib) Lung Disease HX: COPD Musculoskeletal Hx: Gout Blood Disorder Hx: Hyperlipidemia GI Hx: Hemorrhoids Hx: Kidney Disease (naren) and Prostate (prostate cancer) Cancer HX: Yes Psych. 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
== END 2023-09-19 11:00 | disposition home or self-care (01) ==
LOC: HO.ACS 10:19
PROVIDERS: PCP Internal Medicine; Visit Provider Internal Medicine
DX: Z79.01 Long term (current) use of anticoagulants (principal)

== ENCOUNTER → 2023-09-19 10:19 | Outpatient (BNVA) | payer MEDICARE, SELFPAY | PROVIDERS: PCP Internal Medicine; Visit Provider Internal Medicine | DX: I48.0 Paroxysmal atrial fibrillation (principal); Z79.01 Long term (current) use of anticoagulants; Z51.81 Encounter for therapeutic drug level monitoring | CPT/HCPCS: 85610; 99211 ==

== ENCOUNTER 2023-09-23 10:12 | Outpatient (AMB) | payer MEDICARE, SELFPAY ==
--- NOTE | 2023-09-23 11:00 | MHC.OFFVISCO ---
Intake Intake Visit Reasons: Anticoagulation Allergies pneumococcal vaccine [PNEUMOCOCCAL VACCINE] Allergy (Intermediate, Verified 09/23/23 10:33) RASH amoxicillin [From Augmentin] Allergy (Unknown, Verified 09/23/23 10:33) Swelling clavulanic acid [From Augmentin] Allergy (Unknown, Verified 09/23/23 10:33) Swelling theophylline Adverse Reaction (Intermediate, Verified 09/23/23 10:33) Loss of Appetite Medication List - Last Reconciled 09/23/23 by Imani Lee RN albuterol sulfate 90 mcg/actuation 2 puffs PO Q2H PRN amlodipine 5 mg PO DAILY atorvastatin 40 mg PO DAILY carvedilol 6.25 mg PO BID cyanocobalamin (vitamin B-12) 1,000 mcg PO DAILY fluorouracil 5% 1 appl topical DAILY furosemide 40 mg PO DAILY ipratropium-albuterol 0.5 mg-3 mg(2.5 mg base)/3 mL 3 mL inhalation Q6H 30 days meclizine 25 mg PO DAILY PRN multivitamin (One Daily Multivitamin tablet) 1 tab PO DAILY nystatin topical BID tamsulosin 0.4 mg PO BID 90 days warfarin 3 mg See Protocol PO DIRECTED 30 days zolpidem 5 mg PO BEDTIME PRN Nursing Note Amb to [facility] with cane, wearing O2 at 3L nc accomp by for [facility] visit #4 feeling ok Medications and supplements reviewed, continues on Eloquis but did not take this am discussion between pt and , pt sts he thinks he might have taken extra meds, difficult to assess whether he took extra eloquis or warfarin reviewed with both importance of following dosing instructions, use of pill box (in use) and giving his pills secondary to pt forgetfulness to give pills, pt to take care of his O2 No other changes in health, diet, medications, or supplements Denies any unusual signs and symptoms of bruising, bleeding Denies any new Chest pain, SOB, or clotting INR: 2.1 now in therapeutic range Nutritional guidance given: eat a variety of fruits and vegetables and balance greens and reds in diet Dose: TAKE 4.5mg daily (take this mornings missed dose) STOP THE ELOQUIS F/U INR: Thursday 09/27 Patient and verbalizes understanding of instructions given with accurate read back/ teach back of dosing Anti-Coag Initial Assessment Social Hx Patient Tobacco Use Status: Former Tobacco user Quit Date: 2015 alcohol intake: current Alcohol intake frequency: 0-2 drinks per day Cardiovascular Hx: HTN, [place] (non stemi) and Arrhythmias (afib) Lung Disease HX: COPD Musculoskeletal Hx: Gout Blood Disorder Hx: Hyperlipidemia GI Hx: Hemorrhoids Hx: Kidney Disease (naren) and Prostate (prostate cancer) Cancer HX: Yes Psych. Illness/Depression: No Coding Level of Care Code Est Patient Level 2 Diagnoses Current use of anticoagulant therapy Z79.01 Time Spent (min) 30 Results AMB INR Fingerstick AMB INR Fingerstick 2.1 Last Edit by Imani Lee RN on 09/23/23 10:45 interface failure Assessment & Plan Assessment & Plan (1) Current use of anticoagulant therapy: Code(s): Z79.01 - [facility] (current) use of anticoagulants Category: Medical
[2023-09-23 12:12] LABS: Prothrombin Time Whole Bld POC 24.6 sec (11.1-13.5); ~PT, ~INR - Anti Coag Clinic 2.1 (0.9-1.1)
== END 2023-09-23 11:37 | disposition home or self-care (01) ==
LOC: HO.ACS 10:12
PROVIDERS: PCP Internal Medicine; Visit Provider Internal Medicine
DX: Z79.01 Long term (current) use of anticoagulants (principal)

== ENCOUNTER → 2023-09-23 10:12 | Outpatient (BNVA) | payer MEDICARE, SELFPAY | PROVIDERS: PCP Internal Medicine; Visit Provider Internal Medicine | DX: I48.0 Paroxysmal atrial fibrillation (principal); Z79.01 Long term (current) use of anticoagulants; Z51.81 Encounter for therapeutic drug level monitoring | CPT/HCPCS: 85610; 99212 ==

== ENCOUNTER 2023-09-27 10:26 | Outpatient (AMB) | payer MEDICARE, SELFPAY ==
[2023-09-27 10:38] LABS: Prothrombin Time Whole Bld POC 20.3 sec (11.1-13.5); ~PT, ~INR - Anti Coag Clinic 1.7 (0.9-1.1)
--- NOTE | 2023-09-27 10:52 | MHC.OFFVISCO ---
Intake Intake Visit Reasons: Anticoagulation Allergies pneumococcal vaccine [PNEUMOCOCCAL VACCINE] Allergy (Intermediate, Verified 09/27/23 10:42) RASH amoxicillin [From Augmentin] Allergy (Unknown, Verified 09/27/23 10:42) Swelling clavulanic acid [From Augmentin] Allergy (Unknown, Verified 09/27/23 10:42) Swelling theophylline Adverse Reaction (Intermediate, Verified 09/27/23 10:42) Loss of Appetite Medication List - Last Reconciled 09/27/23 by Gertrudis Simeon RN albuterol sulfate 90 mcg/actuation 2 puffs PO Q2H PRN amlodipine 5 mg PO DAILY atorvastatin 40 mg PO DAILY carvedilol 6.25 mg PO BID cyanocobalamin (vitamin B-12) 1,000 mcg PO DAILY fluorouracil 5% 1 appl topical DAILY furosemide 40 mg PO DAILY ipratropium-albuterol 0.5 mg-3 mg(2.5 mg base)/3 mL 3 mL inhalation Q6H 30 days meclizine 25 mg PO DAILY PRN multivitamin (One Daily Multivitamin tablet) 1 tab PO DAILY nystatin topical BID tamsulosin 0.4 mg PO BID 90 days warfarin 3 mg See Protocol PO DIRECTED 30 days zolpidem 5 mg PO BEDTIME PRN Nursing Note INR 1.7 out of therapeutic range, STATES FEELS TIRED TODAY Medications and supplements reviewed Patient status: HE HAS STOPPED THE ELIQUIS, IT MAY HAVE POTENTIATED HIS INR WHILE ON IT, Medications or supplements: NO OTHER CHANGES Diet: GOOD Denies any signs and symptoms of bleeding or clotting or unusual bruising Bleeding, bruising, clotting discussed Nutritional guidance given: AVOID GREENS X 3 MORE DAYS Dose: 6MG TODAY AND TOMORROW THEN 6MG X 2 DAYS/4.5MG X 5 DAYS F/U INR Date : 10/03/23 SAME DAY HIS CARDIOLOGY APPT?? Patient verbalizing understanding of instructions given. Anti-Coag Initial Assessment Social Hx Patient Tobacco Use Status: Former Tobacco user Quit Date: 2015 alcohol intake: current Alcohol intake frequency: 0-2 drinks per day Cardiovascular Hx: HTN, [place] (non stemi) and Arrhythmias (afib) Lung Disease HX: COPD Musculoskeletal Hx: Gout Blood Disorder Hx: Hyperlipidemia GI Hx: Hemorrhoids Hx: Kidney Disease (naren) and Prostate (prostate cancer) Cancer HX: Yes Psych. Illness/Depression: No Coding Level of Care Code Est Patient Level 1 Diagnoses Current use of anticoagulant therapy Z79.01 Results AMB INR Fingerstick AMB INR Fingerstick 1.7 Last Edit by Gertrudis Smieon RN on 09/27/23 10:44 manual entry Assessment & Plan Assessment & Plan (1) Current use of anticoagulant therapy: Code(s): Z79.01 - group home (current) use of anticoagulants Category: Medical
== END 2023-09-27 10:56 | disposition home or self-care (01) ==
LOC: HO.ACS 10:26
PROVIDERS: PCP Internal Medicine; Visit Provider Internal Medicine
DX: Z79.01 Long term (current) use of anticoagulants (principal)

== ENCOUNTER → 2023-09-27 10:26 | Outpatient (BNVA) | payer MEDICARE, SELFPAY | PROVIDERS: PCP Internal Medicine; Visit Provider Internal Medicine | DX: I48.0 Paroxysmal atrial fibrillation (principal); Z79.01 Long term (current) use of anticoagulants; Z51.81 Encounter for therapeutic drug level monitoring | CPT/HCPCS: 85610; 99211 ==

== ENCOUNTER 2023-10-03 14:22 | Outpatient (AMB) | payer MEDICARE, SELFPAY ==
[2023-10-03 14:24] VITALS: BP 114/72; PULSE 85; BMI 26.2
--- NOTE | 2023-10-03 14:24 | MHC.OFFVIS ---
Intake Vital Signs 10/03/23 14:24 Height 5 ft 7 in Weight 167 lb 8.821 oz BMI 26.2 BP 114/72 Blood Pressure Location Lt brachial Pulse 85 Pulse Source Pulse Oximeter Intake Visit Reasons: 7 wk f/up 3 day/ km/Confirmed Allergies pneumococcal vaccine [PNEUMOCOCCAL VACCINE] Allergy (Intermediate, Verified 10/03/23 15:09) RASH amoxicillin [From Augmentin] Allergy (Unknown, Verified 10/03/23 15:09) Swelling clavulanic acid [From Augmentin] Allergy (Unknown, Verified 10/03/23 15:09) Swelling theophylline Adverse Reaction (Intermediate, Verified 10/03/23 15:09) Loss of Appetite Medication List - Last Reconciled 10/03/23 by LYNNETTE Berger albuterol sulfate 90 mcg/actuation 2 puffs PO Q2H PRN amlodipine 5 mg PO DAILY atorvastatin 40 mg PO DAILY carvedilol 6.25 mg PO BID cyanocobalamin (vitamin B-12) 1,000 mcg PO DAILY fluorouracil 5% 1 appl topical DAILY furosemide 40 mg PO DAILY ipratropium-albuterol 0.5 mg-3 mg(2.5 mg base)/3 mL 3 mL inhalation Q6H 30 days meclizine 25 mg PO DAILY PRN multivitamin (One Daily Multivitamin tablet) 1 tab PO DAILY nystatin topical BID tamsulosin 0.4 mg PO BID 90 days warfarin 3 mg See Protocol PO DIRECTED 30 days zolpidem 5 mg PO BEDTIME PRN HPI 7 wk f/up 3 day/ km/Confirmed HPI Details Kalyan is an 82-year-old male with past medical history of hypertension, COPD, on supplemental oxygen who presented for follow-up last visit and was noted to have new onset atrial fibrillation. He was started on Eliquis for anticoagulation. He recently underwent a Holter monitor and echocardiogram and now presents for follow-up. Today he reports that he has been feeling generally well. He has chronic COPD and wears his oxygen continually. He denies having issues with heart palpitations, lightheadedness, presyncope, syncope, falls. No chest discomfort at rest or with activity. No PND, orthopnea or edema. He is taking all meds as directed. No bleeding issues reported with Coumadin. He tells me he could not afford Eliquis. is present. PFSH Medical History High cholesterol Gout Hypertension Essential hypertension Prostate cancer Pulmonary nodules COPD (chronic obstructive pulmonary disease) Surgical History History of spinal surgery Family History Father No problems noted. Mother No problems noted. 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 Current occupational exposures/hazards: No Review of Systems Const All systems reviewed & are unremarkable except as noted in HPI and below ENT Denies dizziness Card Details: wears O2 continually Denies chest pain, Denies chest pain at rest, Denies chest pain with activity, Denies rapid heart rate, Denies pedal edema, Denies edema, Denies leg edema, Denies lightheadedness, Denies palpitations, Denies dyspnea, Reports dyspnea on exertion and Denies orthopnea Resp Denies cough, Denies dyspnea and Reports dyspnea on exertion GI Denies hematochezia and Denies change in stool character Musc Denies abnormal gait, Denies limited range of motion, Denies muscle cramps, Denies muscle weakness, Denies numbness, Denies radiating pain into limb, Denies stiffness and Denies tingling Neuro Denies abnormal gait, Denies dizziness, Denies numbness and Denies tingling Endo Denies palpitations Physical Exam Vital Signs: Last Vital Signs Pulse 85 10/03/23 14:24 BP 114/72 10/03/23 14:24 BMI result Body Mass Index 26.2 Const General: cooperative, healthy appearing, comfortable and no acute distress Orientation/consciousness: patient oriented x3 Neck Neck: Yes normal visual inspection Resp Effort & Inspection: normal respiratory effort Auscultation: clear to auscultation bilaterally, no crackles, no rales, no rhonchi and no wheezes Cardio Jugular venous distension: no JVD Rate: regular rate Rhythm: abnormal rhythm Heart sounds: S1 normal heart sound present, S2 normal heart sound present, no murmurs and no rubs Skin General skin exam: no rashes or lesions noted Neuro General: patient oriented x3 Extrem General: Yes normal to inspection, No no pedal edema and No calf tenderness Psych Appearance: grossly normal Mental Status: mental status grossly normal Speech and movement: Normal speech and movement present Assessment & Plan Assessment & Plan (1) PAF (paroxysmal atrial fibrillation): Code(s): I48.0 - Paroxysmal atrial fibrillation Plan: Newer finding of atrial fibrillation, likely persistent. He is on carvedilol for heart rate control. He is on Coumadin for anticoagulation, INR goal 2-3. Follows with the [facility] anticoagulation [facility]. No bleeding issues reported. Holter monitor done on 08/23/2023 for 3 days showed atrial fibrillation with average rate 92, one 5 beat wide complex apparent conduction. Echocardiogram done 09/17/2023 showed EF 55-60%, normal RV, left atrium moderately dilated, right atrium moderately dilated, mild pulmonary hypertension. He reports no concerning symptoms. Will continue with rate control. Following Holter his carvedilol dose was increased from 3.125 mg up to 6.25 mg b.i.d. which he is tolerating. Continue Coumadin. 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 114/72, asymptomatic. He is now on higher dose carvedilol. Blood pressure runs low then amlodipine can review reduced. (4) COPD (chronic obstructive pulmonary disease): Code(s): J44.9 - Chronic obstructive pulmonary disease, unspecified Plan: Wears O2 supplement. Follows with pulmonology (5) Supplemental oxygen dependent: Code(s): Z99.81 - Dependence on supplemental oxygen Plan: As above Plan Time spent on chart review, documentation, interview and assessment Coding Level of Care Code Est Pt Level 4 (00763) Diagnoses PAF (paroxysmal atrial fibrillation) I48.0 Current use of anticoagulant therapy Z79.01 Essential hypertension I10 COPD (chronic obstructive pulmonary disease) J44.9 Supplemental oxygen dependent Z99.81 Time Spent (min) 28
== END 2023-10-03 15:00 | disposition home or self-care (01) ==
PROVIDERS: PCP Internal Medicine; Visit Provider Nurse Practitioner Family
DX: I48.0 Paroxysmal atrial fibrillation (principal); Z79.01 Long term (current) use of anticoagulants; I10 Essential (primary) hypertension; J44.9 Chronic obstructive pulmonary disease, unspecified; Z99.81 Dependence on supplemental oxygen
CPT/HCPCS: 99214

== ENCOUNTER → 2023-10-03 14:22 | Outpatient (BNVA) | payer MEDICARE, SELFPAY | PROVIDERS: PCP Internal Medicine; Visit Provider Nurse Practitioner Family | DX: I48.0 Paroxysmal atrial fibrillation (principal); I10 Essential (primary) hypertension; J44.9 Chronic obstructive pulmonary disease, unspecified; Z79.01 Long term (current) use of anticoagulants; Z99.81 Dependence on supplemental oxygen | CPT/HCPCS: 85610; 99211; 99212 ==

== ENCOUNTER 2023-10-03 15:07 | Outpatient (AMB) | payer MEDICARE, SELFPAY ==
--- NOTE | 2023-10-03 15:14 | MHC.OFFVISCO ---
Intake Intake Visit Reasons: Anticoagulation Allergies pneumococcal vaccine [PNEUMOCOCCAL VACCINE] Allergy (Intermediate, Verified 10/03/23 15:09) RASH amoxicillin [From Augmentin] Allergy (Unknown, Verified 10/03/23 15:09) Swelling clavulanic acid [From Augmentin] Allergy (Unknown, Verified 10/03/23 15:09) Swelling theophylline Adverse Reaction (Intermediate, Verified 10/03/23 15:09) Loss of Appetite Medication List - Last Reconciled 10/03/23 by Amisha Winter RN albuterol sulfate 90 mcg/actuation 2 puffs PO Q2H PRN amlodipine 5 mg PO DAILY atorvastatin 40 mg PO DAILY carvedilol 6.25 mg PO BID cyanocobalamin (vitamin B-12) 1,000 mcg PO DAILY fluorouracil 5% 1 appl topical DAILY furosemide 40 mg PO DAILY ipratropium-albuterol 0.5 mg-3 mg(2.5 mg base)/3 mL 3 mL inhalation Q6H 30 days meclizine 25 mg PO DAILY PRN multivitamin (One Daily Multivitamin tablet) 1 tab PO DAILY nystatin topical BID tamsulosin 0.4 mg PO BID 90 days warfarin 3 mg See Protocol PO DIRECTED 30 days zolpidem 5 mg PO BEDTIME PRN Nursing Note INR 1.8-?? out of therapeutic range of 2-3 Medications and supplements reviewed Patient status: pt amb with cane, on cont oxygen Medications or supplements: no changes Diet: same Denies any signs and symptoms of bleeding or clotting or unusual bruising Bleeding, bruising, clotting discussed Nutritional guidance given: no greens for 2-3 days, eat reds to raise Dose: already took warfarin today, take 6mg saturday and saturday, increase weekly dosing 6mg x 3, 4.5mg x 4 F/U INR Date : 10/01/23? Patient and spouse verbalizing understanding of instructions given. Anti-Coag Initial Assessment Social Hx Patient Tobacco Use Status: Former Tobacco user Quit Date: 2015 alcohol intake: current Alcohol intake frequency: 0-2 drinks per day Cardiovascular Hx: HTN, [place] (non stemi) and Arrhythmias (afib) Lung Disease HX: COPD Musculoskeletal Hx: Gout Blood Disorder Hx: Hyperlipidemia GI Hx: Hemorrhoids Hx: Kidney Disease (naren) and Prostate (prostate cancer) Cancer HX: Yes Psych. 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
[2023-10-03 15:15] LABS: Prothrombin Time Whole Bld POC 21.9 sec (11.1-13.5); ~PT, ~INR - Anti Coag Clinic 1.8 (0.9-1.1)
== END 2023-10-03 15:32 | disposition home or self-care (01) ==
LOC: HO.ACS 15:07
PROVIDERS: PCP Internal Medicine; Visit Provider Internal Medicine
DX: Z79.01 Long term (current) use of anticoagulants (principal)

== ENCOUNTER 2023-10-08 09:27 | Outpatient (AMB) | payer MEDICARE, SELFPAY ==
--- NOTE | 2023-10-08 09:55 | MHC.OFFVISCO ---
Intake Intake Visit Reasons: Anticoagulation Allergies pneumococcal vaccine [PNEUMOCOCCAL VACCINE] Allergy (Intermediate, Verified 10/08/23 09:51) RASH amoxicillin [From Augmentin] Allergy (Unknown, Verified 10/08/23 09:51) Swelling clavulanic acid [From Augmentin] Allergy (Unknown, Verified 10/08/23 09:51) Swelling theophylline Adverse Reaction (Intermediate, Verified 10/08/23 09:51) Loss of Appetite Medication List - Last Reconciled 10/08/23 by Amisha Winter RN albuterol sulfate 90 mcg/actuation 2 puffs PO Q2H PRN amlodipine 5 mg PO DAILY atorvastatin 40 mg PO DAILY carvedilol 6.25 mg PO BID cyanocobalamin (vitamin B-12) 1,000 mcg PO DAILY fluorouracil 5% 1 appl topical DAILY furosemide 40 mg PO DAILY ipratropium-albuterol 0.5 mg-3 mg(2.5 mg base)/3 mL 3 mL inhalation Q6H 30 days meclizine 25 mg PO DAILY PRN multivitamin (One Daily Multivitamin tablet) 1 tab PO DAILY nystatin topical BID tamsulosin 0.4 mg PO BID 90 days warfarin 3 mg See Protocol PO DIRECTED 30 days zolpidem 5 mg PO BEDTIME PRN Nursing Note INR 1.9-? out of therapeutic range of 2-3 Medications and supplements reviewed Patient status: no c.o, pt with cont oxygen, amb with cane Medications or supplements: no changes Diet: same Denies any signs and symptoms of bleeding or clotting or unusual bruising Bleeding, bruising, clotting discussed Nutritional guidance given: no greens for 2 days, eat a red today Dose: 6mg today 6mg tomm, 4.5mg thur F/U INR Date : saturday10/11/22 Patient verbalizing understanding of instructions given. pt present for visit Anti-Coag Initial Assessment Social Hx Patient Tobacco Use Status: Former Tobacco user Quit Date: 2015 alcohol intake: current Alcohol intake frequency: 0-2 drinks per day Cardiovascular Hx: HTN, [place] (non stemi) and Arrhythmias (afib) Lung Disease HX: COPD Musculoskeletal Hx: Gout Blood Disorder Hx: Hyperlipidemia GI Hx: Hemorrhoids Hx: Kidney Disease (naren) and Prostate (prostate cancer) Cancer HX: Yes Psych. 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
[2023-10-08 09:56] LABS: Prothrombin Time Whole Bld POC 22.2 sec (11.1-13.5); ~PT, ~INR - Anti Coag Clinic 1.9 (0.9-1.1)
== END 2023-10-08 10:04 | disposition home or self-care (01) ==
LOC: HO.ACS 09:27
PROVIDERS: PCP Internal Medicine; Visit Provider Internal Medicine
DX: Z79.01 Long term (current) use of anticoagulants (principal)

== ENCOUNTER → 2023-10-08 09:27 | Outpatient (BNVA) | payer MEDICARE, SELFPAY | PROVIDERS: PCP Internal Medicine; Visit Provider Internal Medicine | DX: I48.0 Paroxysmal atrial fibrillation (principal); Z79.01 Long term (current) use of anticoagulants; Z51.81 Encounter for therapeutic drug level monitoring | CPT/HCPCS: 85610; 99211 ==

== ENCOUNTER 2023-10-08 10:23 | Outpatient (REF) | payer MEDICARE, SELFPAY ==
[2023-10-08 14:01] LABS: Prostate Specific Antigen < 0.10 ng/mL (<0.05-4.0)
== END 2023-10-08 10:24 | disposition home or self-care (01) ==
LOC: HO.HMGCLDS 10:23
PROVIDERS: PCP Internal Medicine; Visit Provider Urology
DX: C61 Malignant neoplasm of prostate (principal); Z12.5 Encounter for screening for malignant neoplasm of prostate
CPT/HCPCS: 36415; 84153

== ENCOUNTER 2023-10-11 10:58 | Outpatient (AMB) | payer MEDICARE, SELFPAY ==
--- NOTE | 2023-10-11 11:33 | MHC.OFFVISCO ---
Intake Intake Visit Reasons: Anticoagulation Allergies pneumococcal vaccine [PNEUMOCOCCAL VACCINE] Allergy (Intermediate, Verified 10/11/23 11:18) RASH amoxicillin [From Augmentin] Allergy (Unknown, Verified 10/11/23 11:18) Swelling clavulanic acid [From Augmentin] Allergy (Unknown, Verified 10/11/23 11:18) Swelling theophylline Adverse Reaction (Intermediate, Verified 10/11/23 11:18) Loss of Appetite Medication List - Last Reconciled 10/11/23 by Tri Ceballos RN albuterol sulfate 90 mcg/actuation 2 puffs PO Q2H PRN amlodipine 5 mg PO DAILY atorvastatin 40 mg PO DAILY carvedilol 6.25 mg PO BID cyanocobalamin (vitamin B-12) 1,000 mcg PO DAILY fluorouracil 5% 1 appl topical DAILY furosemide 40 mg PO DAILY ipratropium-albuterol 0.5 mg-3 mg(2.5 mg base)/3 mL 3 mL inhalation Q6H 30 days meclizine 25 mg PO DAILY PRN multivitamin (One Daily Multivitamin tablet) 1 tab PO DAILY nystatin topical BID tamsulosin 0.4 mg PO BID 90 days warfarin 3 mg See Protocol PO DIRECTED 30 days zolpidem 5 mg PO BEDTIME PRN Nursing Note AND PT.DENY ANY MISSED DOSES,CP,SOB,DIET/MED CHANGES,FALLS OR SX OF BLEEDING. BOOST WEEKLY DSE AND FOLLOW-UP IN 1 WEEK. GOOD UNDERTSTANDING OF DOSING INSTR. Anti-Coag Initial Assessment Social Hx Patient Tobacco Use Status: Former Tobacco user Quit Date: 2015 alcohol intake: current Alcohol intake frequency: 0-2 drinks per day Cardiovascular Hx: HTN, [place] (non stemi) and Arrhythmias (afib) Lung Disease HX: COPD Musculoskeletal Hx: Gout Blood Disorder Hx: Hyperlipidemia GI Hx: Hemorrhoids Hx: Kidney Disease (naren) and Prostate (prostate cancer) Cancer HX: Yes Psych. 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
== END 2023-10-11 11:35 | disposition home or self-care (01) ==
LOC: HO.ACS 10:58
PROVIDERS: PCP Internal Medicine; Visit Provider Internal Medicine
DX: Z79.01 Long term (current) use of anticoagulants (principal)

== ENCOUNTER → 2023-10-11 10:58 | Outpatient (BNVA) | payer MEDICARE, SELFPAY | PROVIDERS: PCP Internal Medicine; Visit Provider Internal Medicine | DX: I48.0 Paroxysmal atrial fibrillation (principal); R39.15 Urgency of urination; C61 Malignant neoplasm of prostate; Z79.01 Long term (current) use of anticoagulants; Z51.81 Encounter for therapeutic drug level monitoring | CPT/HCPCS: 85610; 99211; 99212 ==

== ENCOUNTER 2023-10-11 11:41 | Outpatient (AMB) | payer MEDICARE, SELFPAY ==
--- NOTE | 2023-10-11 11:51 | MHC.OFFVIS ---
Intake Intake Visit Reasons: 1M PSA(set) Intake Note: Patient is Present for Follow Up Urology Medication: Tamsulosin Antibiotic Allergies: Amoxicillin, Blood Thinners: Warfarin Allergies pneumococcal vaccine [PNEUMOCOCCAL VACCINE] Allergy (Intermediate, Verified 10/11/23 11:52) RASH amoxicillin [From Augmentin] Allergy (Unknown, Verified 10/11/23 11:52) Swelling clavulanic acid [From Augmentin] Allergy (Unknown, Verified 10/11/23 11:52) Swelling theophylline Adverse Reaction (Intermediate, Verified 10/11/23 11:52) Loss of Appetite HPI HPI Comments History of Present Illness Details Kalyan is a pleasant male. He is a patient of Dr. Gamboa. 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 Chahal February 2020 Prostate biopsy for elevated PSA - 16 Chaffee score 4+4(A); 4+3(B); 3+3(D) Number cores positive 3 Total number of cores 12 % of tissue involved 5% Therapy. GnRH with gold seed markers and radiation with 18 month hormones [facility] completed December 2020 - associated symptoms rectal urgency PSA - 01/25 <0.1, 07/27 <0.1, 10/28 <0.1 T 2, 01/26 <0.1, 05/28 <0.1, 09/27 <0.1, 02/26 T 172, 06/29 <0.1, 10/30 <0.1 PFSH Medical History High cholesterol Gout Hypertension Essential hypertension Prostate cancer Pulmonary nodules COPD (chronic obstructive pulmonary disease) Surgical History History of spinal surgery Family History Father No problems noted. Mother No problems noted. 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 Current occupational exposures/hazards: No Review of Systems Const Denies chills and Denies fever(s) Card Reports no additional complaints and Denies syncope Resp Denies cough GI Denies abdominal pain and Denies heartburn Reports as per HPI and Denies change in libido Neuro Denies syncope Psych Denies change in libido Endo Denies change in libido Physical Exam Const General: cooperative, healthy appearing, comfortable and no acute distress Orientation/consciousness: patient oriented x3 HEENT Face and sinus: Yes normal facial exam Mouth: moist mucous membranes Neck Neck: Yes normal visual inspection, Yes full ROM and Yes trachea midline Chest Chest palpation & inspection: normal inspection of the chest Resp Effort & Inspection: normal respiratory effort, able to speak in complete sentences and no respiratory distress GI Inspection: Yes normal to inspection Back/Spine/Pelvis Cervical Spine: normal cervical lordosis Thoracic/Lumbar Spine: thoracic and lumbar spine normal to inspection Skin General skin exam: no rashes or lesions noted Neuro General: patient oriented x3, gait normal, tone normal and moves all extremities Extrem General: Yes normal to inspection and Yes capillary refill normal Assessment & Plan Assessment & Plan (1) Urinary urgency: Code(s): R39.15 - Urgency of urination (2) Prostate cancer: Comment: February 2021 High-grade, external beam radiation with 18 months GnRH Code(s): C61 - Malignant neoplasm of prostate Plan Six month follow-up PSA Patient Instructions: Imaging studies, laboratory and physical exam results were discussed and reviewed in detail. No major barriers to patient understanding were identified. An opportunity to ask questions regarding the treatment plan was provided. All questions were answered. The patient expressed understanding and agreement with the above treatment plan. The patient is aware they should contact our office by phone for worsening of their current condition or the appearance of new urologic symptoms. Compliance is encouraged with any medications and followup testing that is ordered. It is a privilege to participate in the urologic care of your patient. If you have any questions or concerns regarding treatment for the above conditions, or other urologic issues, please do not hesitate to contact me. The office telephone contact is [phone]. This note is constructed using voice recognition software. While every effort has been made to ensure accuracy financial report service sales agent errors may have been included. Yours sincerely, Dr Catarino Gottlieb MD, [facility] - Urology Providers of Expert, Compassionate Care for the Genitourinary System Coding Level of Care Code Est Pt Level 3 (27216) Diagnoses Urinary urgency R39.15 Prostate cancer C61
== END 2023-10-11 12:09 | disposition home or self-care (01) ==
PROVIDERS: PCP Internal Medicine; Visit Provider Urology
DX: R39.15 Urgency of urination (principal); C61 Malignant neoplasm of prostate
CPT/HCPCS: 99213

== ENCOUNTER 2023-10-18 09:30 | Outpatient (AMB) | payer MEDICARE, SELFPAY ==
[2023-10-18 10:26] LABS: ~PT, ~INR - Anti Coag Clinic 2.3 (0.9-1.1)
--- NOTE | 2023-10-18 10:29 | MHC.OFFVISCO ---
Intake Intake Visit Reasons: Anticoagulation Allergies pneumococcal vaccine [PNEUMOCOCCAL VACCINE] Allergy (Intermediate, Verified 10/18/23 10:17) RASH amoxicillin [From Augmentin] Allergy (Unknown, Verified 10/18/23 10:17) Swelling clavulanic acid [From Augmentin] Allergy (Unknown, Verified 10/18/23 10:17) Swelling theophylline Adverse Reaction (Intermediate, Verified 10/18/23 10:17) Loss of Appetite Medication List - Last Reconciled 10/18/23 by Gertrudis Simeon RN albuterol sulfate 90 mcg/actuation 2 puffs PO Q2H PRN amlodipine 5 mg PO DAILY atorvastatin 40 mg PO DAILY carvedilol 6.25 mg PO BID cyanocobalamin (vitamin B-12) 1,000 mcg PO DAILY fluorouracil 5% 1 appl topical DAILY furosemide 40 mg PO DAILY ipratropium-albuterol 0.5 mg-3 mg(2.5 mg base)/3 mL 3 mL inhalation Q6H 30 days meclizine 25 mg PO DAILY PRN multivitamin (One Daily Multivitamin tablet) 1 tab PO DAILY nystatin topical BID tamsulosin 0.4 mg PO BID 90 days warfarin 3 mg See Protocol PO DIRECTED 30 days zolpidem 5 mg PO BEDTIME PRN Nursing Note INR: 2.3 in therapeutic range Medications and supplements reviewed states he feels more confused and legs feel weak, ankles are swollen, denies any c/p or increase sob, stated he mixe up the remote control with his phone and couldnt work them yesterday, b/p 115 / 58 hr 80 very irregular afib, had GI upset yesterday and took peptobismal x 1 with relief, had decreased appetite yesterday only had a few muffins and toast all day, did not eat today, bilat ankle edema more than usual per pt states he feels confused and wants to go to the ER that something isnt right call to PCP - they stated he should go to the ER Denies any signs and symptoms of bleeding or bruising or clotting. Bleeding, bruising, clotting discussed Nutritional guidance given - eat a mix of fruits and vegetables Dose: keep same dose for now 6mg x 5 days/ 4.5mg days F/U INR: 1 week Patient verbalizes understanding of instructions given [facility] spoke with Miguel MONTEJO regarding pt status , brought to ER via wheelchair, with hand off to GUSTABO Chavez Anti-Coag Initial Assessment Social Hx Patient Tobacco Use Status: Former Tobacco user Quit Date: 2015 alcohol intake: current Alcohol intake frequency: 0-2 drinks per day Cardiovascular Hx: HTN, [place] (non stemi) and Arrhythmias (afib) Lung Disease HX: COPD Musculoskeletal Hx: Gout Blood Disorder Hx: Hyperlipidemia GI Hx: Hemorrhoids Hx: Kidney Disease (naren) and Prostate (prostate cancer) Cancer HX: Yes Psych. 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
== END 2023-10-18 11:05 | disposition home or self-care (01) ==
LOC: HO.ACS 09:30
PROVIDERS: PCP Internal Medicine; Visit Provider Internal Medicine
DX: Z79.01 Long term (current) use of anticoagulants (principal)

== ENCOUNTER → 2023-10-18 09:30 | Outpatient (BNVA) | payer MEDICARE, SELFPAY | PROVIDERS: PCP Internal Medicine; Visit Provider Internal Medicine ==

== ENCOUNTER 2023-10-18 10:57 | Emergency (ER) | payer MEDICARE, SELFPAY ==
--- NOTE | ~2023-10-18 | XR_ITS ---
EXAMINATION: XR CHEST CLINICAL INFORMATION: Weakness COMPARISON: CT chest 12/10/2022 TECHNIQUE: 2 views of the chest were obtained. FINDINGS: No significant abnormality is noted involving the heart, lungs, mediastinum, bony thorax or soft tissues. XR/XR chest 2V IMPRESSION: Unremarkable chest examination.
[2023-10-18 11:08] VITALS: BP 145/65; PULSE 94; RESP 26; TEMP 36.5; O2SAT 96; BMI 26.3
--- NOTE | 2023-10-18 11:11 | ECG_ITS ---
Test Reason : AFIB Blood Pressure : / mmHG Vent. Rate : 099 BPM Atrial Rate : 099 BPM P-R Int : 254 ms QRS Dur : 086 ms QT Int : 350 ms P-R-T Axes : 032 087 037 degrees QTc Int : 449 ms Atrial fibrillation Septal infarct , age undetermined Abnormal ECG When compared with ECG of 10-OCT-2022 12:40, Premature supraventricular complexes are now Present Atrial fibrillation has replaced Normal sinus rhythm Vent. rate has increased BY 43 BPM Minimal criteria for Inferior infarct are no longer Present T wave inversion no longer evident in Anterolateral leads Referred By: Gm Zee Electronically Signed By:SHAGUFTA FRANCO MD
--- NOTE | 2023-10-18 11:40 | ED_ITS ---
<Statement entered by Gm Zee MD - 10/19/23 18:47> Patient's workup was essentially seemed negative for any acute problem that would require hospitalization or further evaluation. 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 Admits to feeling off since yesterday with unsteady gait. Endorses 2 episodes of diarrhea. He was seen at the Coumadin clinic this morning where, upon hearing these complaints, he was advised to come to the ED. His is at bedside who states they would not have come to the ED at all if it was not for that recommendation. At present, he currently denies any pain. No known sick contacts. No recent travel or long car rides. Denies headache, dizziness, chest pain, palpitations, increased shortness of breath, increased effort of breathing or sputum production, wheezing, LE pain/ swelling. Admits to new diagnosis of persistent atrial fibrillation diagnosed on holter monitor. He is followed by Dr. Max who increased his carvedilol from 3.125 to 6.25 BID one week ago for rate control. Took morning dose today. Additionally follows with Dr. Brantley for COPD. Related Data Home Medications Medication Instructions Recorded Confirmed albuterol sulfate 90 mcg/actuation 2 puff PO Q2H PRN Shortness Of 09/07/20 10/18/23 aerosol inhaler Breath Or Wheezing furosemide 40 mg tablet 40 mg PO DAILY 02/01/22 10/18/23 zolpidem 5 mg tablet 5 mg PO BEDTIME PRN 05/31/22 10/18/23 meclizine 25 mg tablet 25 mg PO DAILY PRN 06/01/22 10/18/23 nystatin 100,000 unit/gram topical topical BID 06/01/22 10/18/23 ointment cyanocobalamin (vitamin B-12) 1,000 mcg PO DAILY 09/13/23 10/18/23 1,000 mcg capsule multivitamin (One Daily 1 tab PO DAILY 09/13/23 10/18/23 Multivitamin tablet) fluorouracil 5 % topical cream 1 appl topical DAILY 09/16/23 10/18/23 Previous Rx's Medication Instructions Recorded ipratropium 0.5 mg-albuterol 3 mg 3 ml inhalation Q6H wheezing 30 12/13/21 (2.5 mg base)/3 mL nebulization days #270 mL soln atorvastatin 40 mg tablet 40 mg PO DAILY #90 tabs 07/24/23 tamsulosin 0.4 mg capsule 0.4 mg PO BID 90 days #180 caps 09/04/23 warfarin 3 mg tablet 3 mg PO DIRECTED 30 days #45 09/04/23 tabs amlodipine 5 mg tablet 5 mg PO DAILY #90 tabs 09/16/23 carvedilol 6.25 mg tablet 6.25 mg PO BID #120 tabs 09/17/23 Allergies Allergy/AdvReac Type Severity Reaction Status Date / Time pneumococcal vaccine Allergy Intermediate RASH Verified 10/18/23 10:17 [PNEUMOCOCCAL VACCINE] amoxicillin [From Augmentin] Allergy Unknown Swelling Verified 10/18/23 10:17 clavulanic acid Allergy Unknown Swelling Verified 10/18/23 10:17 [From Augmentin] theophylline AdvReac Intermediate Loss of Verified 10/18/23 10:17 Appetite Review of Systems 2 Review of Systems: Constitutional: No fever, chills, fatigue, night sweats, weight changes ENT/Mouth: No ear pain, hearing loss, nasal congestion, sinus pain, rhinorrhea, sore throat Eyes: No eye pain, swelling, redness, vision changes, discharge Cardio: No chest pain, palpitations, CABALLERO, orthopnea, peripheral edema Pulm: No SOB, cough, sputum, wheezing, dyspnea, hemoptysis GI: No nausea, vomiting, hematemesis, abdominal pain, diarrhea, constipation, hematochezia, melena : No irregular bleeding, dysuria, frequency, urgency, hesitancy, hematuria, flank pain, urinary flow changes, urinary incontinence or retention MSK: No back pain, neck pain, joint pain, myalgias Skin: No lesions, rashes Neuro: No weakness, numbness, paresthesias, LOC, dizziness, headache All other systems reviewed and are negative. [facility] Past Medical History Onset Date is defined in the Problem List Problems that require an onset date and time if occurred within 24 hrs of arrival to the ED Aortic Dissection and Rupture; Neurologic impairment; Cardiopulmonary Arrest; Endotracheal Intubation; Insertion or Replacement of Mechanical Circulatory Assist Device Medical History High cholesterol Gout Hypertension Essential hypertension Prostate cancer Pulmonary nodules COPD (chronic obstructive pulmonary disease) Surgical History History of spinal surgery Family History Family History Father No problems noted. Mother No problems noted. 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 Current occupational exposures/hazards: No Physical Exam ED Vital Signs: Vital Signs - 24 hr 10/18/23 11:08 10/18/23 12:28 10/18/23 13:47 Temperature 97.7 F 98.0 F Pulse Rate 94 104 H 118 H Respiratory Rate 26 H 26 H 25 H Blood Pressure 145/65 H 149/69 H 149/64 H Pulse Oximetry 96 92 86 L Oxygen Delivery Method Nasal Cannula Room Air Nasal Cannula Oxygen Flow Rate 3 2 10/18/23 14:36 10/18/23 15:07 10/18/23 16:18 Temperature Pulse Rate 107 H 110 H 119 H Respiratory Rate 20 17 22 H Blood Pressure Pulse Oximetry 93 Oxygen Delivery Method Nasal Cannula Oxygen Flow Rate 3 BMI result Body Mass Index 26.3 Const General: cooperative, healthy appearing, comfortable, no acute distress, alert and awake; No ill appearing or lethargic Nutritional Appearance: average body habitus Orientation/consciousness: patient oriented x3 and No lethargic Limitations: no limitations Eyes General: appearance normal, both eyes and all related structures Conjunctivae: conjunctivae normal Sclerae: sclerae normal Pupils: Equal, round and reactive pupils present EOM: EOMs intact bilaterally Neck Neck: Yes normal visual inspection, Yes no lymphadenopathy and Yes no JVD Resp Other: + bilateral wheezes Effort & Inspection: normal respiratory effort, able to speak in complete sentences, no respiratory distress and no tripod positioning Cardio Other: + irregularly irregular rhythm Peripheral pulses: Peripheral pulses 2+ throughout GI Inspection: Yes normal to inspection and No visible pulsation Skin General skin exam: no rashes or lesions noted Neuro Other: Strength 5/5 intact throughout.? No saddle anesthesia.? Sensation intact to light touch.? Neurovascular intact distally.? General: patient oriented x3 and gait normal Cranial nerves: Yes Equal, round and reactive pupils present Motor exam (neuro): 5/5 motor strength present throughout and Pronator motor function not present Deep tendon reflexes (DTR's): Right patellar reflex intensity grade: 2+ and Left patellar reflex intensity grade: 2+ Extrem General: Yes normal to inspection Course Course Course Narrative: 1230-- CBC with chronic stable anemia. No leukocytosis or left shift. Chemistry shows bicarb elevated to 40, likely chronic in nature secondary to patient's COPD. INR 2.2 on coumadin > low suspicion for PE. No acute electrolyte abnormalities requiring intervention. Urine is negative for infection. Negative for covid and influenza. CXR unremarkable. ekg showing atrial fibrillation, no acute ischemic changes. >> Case was discussed with my attending physician Dr. Zee who personally evaluated patient. No peripheral edema however will add on BNP and repeat troponin. Currently receiving duoneb of xopinex for bilateral wheezes. 1550-- Troponin undetectable x2. BNP 365 however not concerning for acute congestive heart failure given physical exam findings and CXR results. On re- evaluation, patient admits to feeling well after duoneb. Informed patient work up essentially unremarkable. Given elevated BNP, will administer 40 of lasix and discharge home with cardiology and pulm follow up. Vitals notable for tachycardia and tachypnea likely d/t zopinex treatment. Persistent atrial fibrilation throughout visit, chronic and likely not contributing to presentation today. Discussed strict return precautions. All questions answered at this time. Patient and are agreeable with disposition and patients is stable for discharge. > my attending is in agreement with this plan. Medications Administered Discontinued Medications Generic Name Dose Route Start Last Admin Trade Name Matt PRN Reason Stop Dose Admin Albuterol Sulfate 2.5 mg/ 0 mg 10/18/23 14:25 10/18/23 14:33 Albuterol/Ipratropium 3 ml INHALE 10/18/23 14:26 5 dose ONCE ONE Administration Furosemide 40 mg 10/18/23 15:50 10/18/23 16:17 Furosemide 40 Mg/4 Ml Vial IVPUSH 10/18/23 15:51 40 mg ONCE ONE Administration Protocol Levalbuterol HCl 2.5 mg 10/18/23 15:01 10/18/23 15:06 Levalbuterol Hcl 1.25 Mg/3 Ml Vial.Neb INHALE 10/18/23 15:02 2.5 mg ONCE ONE Administration Medical Decision Making Medical Decision Making [facility] Narrative: 83 year old male with pmhx significant for >50 pack year smoker, 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 Vital signs notable for tachycardia. Nontoxic appearing and in NAD. PERRLA. Speaking in full sentences. Lungs with bilateral wheezes. No peripheral edema. No JVD. Exam nonfocal. Ambulating with steady gait. Clinical concern for atrial fibrillation, arrhythmia, electrolyte abnormality, dehydration, viral syndrome, pneumonia, uti, heart failure, acs. Lower suspicion for orthostatic hypotension, vertigo. Unlikely PE, pleural effusion, COPD exacerbation. Plan for labs, CXR, ekg, UA, and re-evaluation. Differential Diagnosis Differential Diagnoses: The differential diagnosis associated with the presentation includes as above. Admission/Observation Consideration of admission/observation: Escalation of care including admission/observation considered Lab Data [facility] Lab Attestation statement: I reviewed the patient's lab results. as above. 10/18/23 12:47 10/18/23 12:47 Labs: Lab Results 10/18/23 10/18/23 10/18/23 Range/Units 12:18 12:32 12:47 WBC 10.1 (4.8-10.8) X10*3/uL RBC 3.71 L (4.60-5.80) X10*6/uL Hgb 12.1 L (14.0-18.0) g/dl Hct 38.2 L (42.0-52.0) % MCV 103.0 H (80.0-98.0) fL MCH 32.6 (27.0-33.0) pg MCHC 31.7 (31.0-36.0) g/dl RDW 12.2 (11.0-16.0) % Plt Count 137 L D (160-400) X10*3/uL MPV 11.5 (9.4-12.4) fL Immature Gran % (Auto) 0.2 (0.0-0.4) % Neut % (Auto) 60.4 (45-73) % Lymph % (Auto) 28.8 (20-40) % Cook % (Auto) 8.2 (2-11) % Eos % (Auto) 2.1 (0-4) % Baso % (Auto) 0.3 (0-2) % Lymph # (Auto) 2.9 (1.2-4.9) X10*3/uL Cook # (Auto) 0.8 (0.1-1.2) X10*3/uL Eos # (Auto) 0.2 (0.0-0.4) X10*3/uL Baso # (Auto) 0.0 (0.0-0.2) X10*3/uL Abs Immat Gran (auto) 0.02 (0.00-0.03) X10*3/uL Absolute Neuts (auto) 6.1 (2.0-8.3) x10*3/uL Absolute Nucleated RBC 0.000 (0.0-0.012) X10*3/uL Nucleated RBC % (auto) 0.0 (0.0-0.2) /100WBC PT 27.1 H (11.1-13.3) SEC INR 2.2 H (0.9-1.1) VBG pH (7.32-7.43) VBG pCO2 mmHg VBG pO2 mmHg VBG HCO3 (22-26) mmol/L VBG O2 Saturation % VBG Base Excess mmol/L Sodium 142 (135-145) mmol/L Potassium 4.6 (3.3-5.1) mmol/L Chloride 90 L (96-108) mmol/L Carbon Dioxide 40 H* (22-29) mmol/L Anion Gap 17 (12-20) BUN 24 H (9-16) mg/dL Creatinine 0.87 (0.5-1.4) mg/dL Estim Creat Clear Calc 61.2 Estimated GFR > 60 Random Glucose 107 (60-115) mg/dL Calcium 9.5 D (8.4-10.2) mg/dL Magnesium 2.3 (1.6-2.6) mg/dL Total Bilirubin 1.1 H (0.0-1.0) mg/dL AST 31 (5-37) U/L ALT 16 (0-40) U/L Alkaline Phosphatase 88 (39-117) U/L Troponin I High Sens 9.8 (<3.5-35.0) ng/L C-Reactive Protein 0.63 H (< or = 0.50) mg/dL B-Natriuretic Peptide 365 H (<100) pg/mL Total Protein 7.8 (6.5-8.0) g/dL Albumin 4.0 (3.5-5.0) g/dL Lipase 16 (8-78) U/L Urine Color Yellow Urine Appearance Clear Urine pH 6.0 (5.0-9.0) Ur Specific [place] 1.010 (1.005-1.025) Urine Protein Negative (Neg-Trace) mg/dL Urine Glucose (UA) Negative (Negative) mg/dL Urine Ketones Negative (Negative) mg/dL Urine Blood Negative (Negative) Urine Nitrite Negative (Negative) Ur Leukocyte Esterase Negative (Negative) COVID-19 (JENNA) Negative (Negative) COVID-19 Clin Com See Note Influenza Type A (CRISTINA) Negative (Negative) Influenza Type B (CRISTINA) Negative (Negative) Influenza A & B Note See Note 10/18/23 10/18/23 Range/Units 13:51 14:25 WBC (4.8-10.8) X10*3/uL RBC (4.60-5.80) X10*6/uL Hgb (14.0-18.0) g/dl Hct (42.0-52.0) % MCV (80.0-98.0) fL MCH (27.0-33.0) pg MCHC (31.0-36.0) g/dl RDW (11.0-16.0) % Plt Count (160-400) X10*3/uL MPV (9.4-12.4) fL Immature Gran % (Auto) (0.0-0.4) % Neut % (Auto) (45-73) % Lymph % (Auto) (20-40) % Cook % (Auto) (2-11) % Eos % (Auto) (0-4) % Baso % (Auto) (0-2) % Lymph # (Auto) (1.2-4.9) X10*3/uL Cook # (Auto) (0.1-1.2) X10*3/uL Eos # (Auto) (0.0-0.4) X10*3/uL Baso # (Auto) (0.0-0.2) X10*3/uL Abs Immat Gran (auto) (0.00-0.03) X10*3/uL Absolute Neuts (auto) (2.0-8.3) x10*3/uL Absolute Nucleated RBC (0.0-0.012) X10*3/uL Nucleated RBC % (auto) (0.0-0.2) /100WBC PT (11.1-13.3) SEC INR (0.9-1.1) VBG pH 7.38 (7.32-7.43) VBG pCO2 90 mmHg VBG pO2 49 mmHg VBG HCO3 54 H (22-26) mmol/L VBG O2 Saturation 81.0 % VBG Base Excess 23.8 mmol/L Sodium (135-145) mmol/L Potassium (3.3-5.1) mmol/L Chloride (96-108) mmol/L Carbon Dioxide (22-29) mmol/L Anion Gap (12-20) BUN (9-16) mg/dL Creatinine (0.5-1.4) mg/dL Estim Creat Clear Calc Estimated GFR Random Glucose (60-115) mg/dL Calcium (8.4-10.2) mg/dL Magnesium (1.6-2.6) mg/dL Total Bilirubin (0.0-1.0) mg/dL AST (5-37) U/L ALT (0-40) U/L Alkaline Phosphatase (39-117) U/L Troponin I High Sens 10.4 (<3.5-35.0) ng/L C-Reactive Protein (< or = 0.50) mg/dL B-Natriuretic Peptide (<100) pg/mL Total Protein (6.5-8.0) g/dL Albumin (3.5-5.0) g/dL Lipase (8-78) U/L Urine Color Urine Appearance Urine pH (5.0-9.0) Ur Specific [place] (1.005-1.025) Urine Protein (Neg-Trace) mg/dL Urine Glucose (UA) (Negative) mg/dL Urine Ketones (Negative) mg/dL Urine Blood (Negative) Urine Nitrite (Negative) Ur Leukocyte Esterase (Negative) COVID-19 (JENNA) (Negative) COVID-19 Clin Com Influenza Type A (CRISTINA) (Negative) Influenza Type B (CRISTINA) (Negative) Influenza A & B Note Independent Interpretation I performed an independent interpretation of an: EKG and Plain X-Ray Interpretation: EKG showing atrial fibrillation, no acute ischemic changes. I personally interpreted cxr and agree with radiologist's interpretation. Radiology Impression Discussion of test interpretation with radiology: I have reviewed the radiologist's reading. Radiologist Impression: XR chest 2V IMPRESSION: Unremarkable chest examination. Independent Historian Clinical information obtained from an independent historian. History obtained from or confirmed by: Spouse () External Record Review External record reviewed: Inpatient record, Office record, Outpatient record, Prior outpatient labs, Prior outpatient radiology, Primary care record and Outside ED record Prescription Management I considered prescription management with: Other (diuretic, beta lloyd) Chronic Conditions Patient?s care impacted by: Other (atrial fibrillation) Social Determinants Patient?s care significantly limited by Social Determinants of Health including: Other Social Determinant of Health Critical Care Time Critical Care Time Critical Care Time: Yes Total Critical Care Time: 31 Attestation: Critical care time in the amount of 31 minutes has been provided to the patient in terms of direct patient care, frequent reevaluation, review and interpretation of medical data and results, and management of potentially life- threatening conditions. This is all outside of any medical procedures. Discharge Plan Discharge Clinical Impression: COPD (chronic obstructive pulmonary disease), CHF (congestive heart failure) Patient Disposition: Home, Self-Care Instructions: Heart Healthy Diet (ED), COPD (Chronic Obstructive Pulmonary Disease) (ED) Additional Instructions: Your labs today showed slight elevation in BNP. You were treated with Lasix. Additionally you received a breathing treatment in ED. Your labs are otherwise normal. Your chest x-ray was normal. Your cardiac enzymes were normal. You tested negative for COVID and influenza. Please follow-up with your collar padder blindstit[facility] and r[facility] progressive care unit regarding this visit. Follow-up with your PCP. If symptoms persist or worsen please return to the emergency department. In the case of an emergency call 911. Prescriptions: No Action atorvastatin 40 mg tablet 40 mg PO DAILY Qty: 90 3RF tamsulosin 0.4 mg capsule 0.4 mg PO BID 90 Days Qty: 180 1RF warfarin 3 mg tablet 3 mg PO DIRECTED 30 Days Qty: 45 5RF Protocol: Dose Management Condition: Saturday (Week One) Dose/Route: 6 mg Instruction: 2 x 3 mg tablets Condition: Saturday Dose/Route: 6 mg Instruction: 2 x 3 mg tablets Condition: Saturday Dose/Route: 4.5 mg Instruction: 1.5 x 3 mg tablets Condition: Saturday Dose/Route: 6 mg Instruction: 2 x 3 mg tablets Condition: Dose/Route: 6 mg Instruction: 2 x 3 mg tablets Condition: Saturday Dose/Route: 4.5 mg Instruction: 1.5 x 3 mg tablets Condition: Saturday Dose/Route: 6 mg Instruction: 2 x 3 mg tablets Condition: Saturday (Week Two) Dose/Route: 6 mg Instruction: 2 x 3 mg tablets Condition: Saturday Dose/Route: 6 mg Instruction: 2 x 3 mg tablets Condition: Saturday Dose/Route: 4.5 mg Instruction: 1.5 x 3 mg tablets Condition: Saturday Dose/Route: 6 mg Instruction: 2 x 3 mg tablets Condition: Dose/Route: 6 mg Instruction: 2 x 3 mg tablets Condition: Saturday Dose/Route: 4.5 mg Instruction: 1.5 x 3 mg tablets Condition: Saturday Dose/Route: 6 mg Instruction: 2 x 3 mg tablets Protocol Text: Adjustment Start Date: Saturday10/18/23 INR Value: 2.3 INR Date: 10/18/23 Recheck Date: 10/25/23 Additional Instructions: EAT A MIX OF FRUITS AND VEGETABLES - ENJOY YOUR SALADS Rx Instructions: Take medication as directed per anticoagulation clinic based on your INR blood test results amlodipine 5 mg tablet 5 mg PO DAILY Qty: 90 3RF carvedilol 6.25 mg tablet 6.25 mg PO BID Qty: 120 3RF Rx Instructions: must administer with a meal/food albuterol sulfate 90 mcg/actuation HFA aerosol inhaler 2 puff PO Q2H PRN (Reason: Shortness Of Breath Or Wheezing) Patient Comments: pt is unable to recall his medications ipratropium-albuterol 0.5 mg-3 mg(2.5 mg base)/3 mL solution for nebulization 3 ml inhalation Q6H 30 Days Qty: 270 6RF zolpidem 5 mg tablet 5 mg PO BEDTIME PRN meclizine 25 mg tablet 25 mg PO DAILY PRN nystatin 100,000 unit/gram ointment topical BID furosemide 40 mg tablet 40 mg PO DAILY cyanocobalamin (vitamin B-12) 1,000 mcg capsule 1,000 mcg PO DAILY multivitamin [One Daily Multivitamin] Tablet 1 tab PO DAILY fluorouracil 5 % cream 1 appl topical DAILY Referrals: Minor Gautam MD [Physician] - Narinder Mazariegos MD [Physician] - Interventions: ED Discharge Assessment Last Done: 10/18/23 16:22 Discharge Date/Time: 10/18/23 16:22
[2023-10-18 12:28] VITALS: BP 149/69; PULSE 104; RESP 26; O2SAT 92
[2023-10-18 12:41] LABS: COVID-19 Test Negative (Negative); IDNOW Serial# 08D9AD1C; IDNOW Serial# 152EDE1D; Influenza A Negative (Negative); Influenza B2 Negative (Negative)
[2023-10-18 12:46] LABS: Appearance Urine Clear; Color Urine Yellow; Glucose Urine UA Negative (Negative); Leukocyte Esterase Urine Negative (Negative); Nitrite Urine Negative (Negative); Urine Blood Negative (Negative); Urine Ketones Negative (Negative); Urine Protein Negative (Neg-Trace)
[2023-10-18 12:51] LABS: MANUAL DIFF FLAG NO
[2023-10-18 12:56] LABS: Basophils Percent Auto 0.3 % (0-2); Eosinophils Absolute Auto 0.2 X10*3/uL (0.0-0.4); Eosinophils Percent Auto 2.1 % (0-4); Hematocrit 38.2 % (42.0-52.0); Hemoglobin 12.1 g/dl (14.0-18.0); Imm Gran Abs Auto 0.02 X10*3/uL (0.00-0.03); Imm Gran Pct Auto 0.2 % (0.0-0.4); Lymphocytes Absolute Auto 2.9 X10*3/uL (1.2-4.9); Lymphocytes Percent Auto 28.8 % (20-40); Mean Corpuscular HGB Conc 31.7 g/dl (31.0-36.0); Mean Corpuscular Hemoglobin 32.6 pg (27.0-33.0); Mean Platelet Volume 11.5 fL (9.4-12.4); Monocytes Absolute Auto 0.8 X10*3/uL (0.1-1.2); Monocytes Percent Auto 8.2 % (2-11); Neutrophils Absolute Auto 6.1 x10*3/uL (2.0-8.3); Neutrophils Percent Auto 60.4 % (45-73); Platelet Count 137 X10*3/uL (160-400); Red Blood Count 3.71 X10*6/uL (4.60-5.80); Red Cell Distribution Width 12.2 % (11.0-16.0); White Blood Count 10.1 X10*3/uL (4.8-10.8)
[2023-10-18 12:59] LABS: INTERNATIONAL NORM RATIO 2.2 (0.9-1.1); Prothrombin Time 27.1 SEC (11.1-13.3)
--- NOTE | 2023-10-18 13:06 | PC.NURSE ---
iv inserted, labs drawn. pt on 3L O2 which is baseline at home.
[2023-10-18 13:12] LABS: Troponin-I High Sensitivity 9.8 ng/L (<3.5-35.0)
[2023-10-18 13:26] LABS: Alanine Aminotransferase 16 U/L (0-40); Alkaline Phosphatase 88 U/L (39-117); Anion Gap 17 (12-20); Aspartate Amino Transferase 31 U/L (5-37); Bilirubin Total 1.1 mg/dL (0.0-1.0); Blood Urea Nitrogen 24 mg/dL (9-16); Calcium 9.5 mg/dL (8.4-10.2); Carbon Dioxide 40 mmol/L (22-29); Chloride 90 mmol/L (96-108); Creatinine Clr Calc Pharmacy 61.2; Estimated Glomerular Filt Rate > 60; Glucose Random 107 mg/dL (60-115); Lipase 16 U/L (8-78); Magnesium 2.3 mg/dL (1.6-2.6); Potassium 4.6 mmol/L (3.3-5.1); Sodium 142 mmol/L (135-145); Total Protein 7.8 g/dL (6.5-8.0)
[2023-10-18 13:47] VITALS: BP 149/64; PULSE 118; RESP 25; TEMP 36.7; O2SAT 86
[2023-10-18 13:58] LABS: VBG Base Excess 23.8 mmol/L; VBG HCO3 54 mmol/L (22-26); VBG pCO2 90 mmHg; VBG pH 7.38 (7.32-7.43); VBG pO2 49 mmHg
[2023-10-18 14:00] LABS: Venous Blood Gas Refer to POC result
[2023-10-18] MEDS: Albuterol Sulfate 2.5 MG, Albuterol/Iprat 2.5/0.5MG 3 ML 3 ML INHALE (14:33)
[2023-10-18 14:36] VITALS: PULSE 107; RESP 20; O2SAT 97
[2023-10-18 14:42] LABS: C Reactive Protein 0.63 mg/dL (< or = 0.50)
[2023-10-18 14:47] LABS: B Type Natriuretic Peptide 365 pg/mL (<100)
[2023-10-18 14:53] LABS: Troponin-I High Sensitivity 10.4 ng/L (<3.5-35.0)
[2023-10-18] MEDS: levalbuterol HCL 1.25 MG/3 ML VIAL.NEB 2.5 MG INHALE (15:06)
[2023-10-18 15:07] VITALS: PULSE 110; RESP 17; O2SAT 97
[2023-10-18] MEDS: Furosemide 40 MG/4 ML VIAL IVPUSH (16:17)
[2023-10-18 16:18] VITALS: PULSE 119; RESP 22; O2SAT 93
== END 2023-10-18 16:22 | disposition home or self-care (01) ==
PROVIDERS: Physician Assistant Medical; Emergency Provider Emergency Medicine; PCP Internal Medicine
DX: J44.9 Chronic obstructive pulmonary disease, unspecified (principal); I50.9 Heart failure, unspecified; I48.91 Unspecified atrial fibrillation; R06.02 Shortness of breath; Z99.81 Dependence on supplemental oxygen; Z87.891 Personal history of nicotine dependence; Z79.01 Long term (current) use of anticoagulants; Z79.899 Other long term (current) drug therapy; Z11.52 Encounter for screening for COVID-19; Z20.828 Contact with and (suspected) exposure to other viral communicable diseases
CPT/HCPCS: 36415; 71046; 80053; 81003; 82803; 83690; 83735; 83880; 84484; 85025; 85610; 86140; 87502; 87635; 93005; 94640; 96374; 99211; 99285; J1940

== ENCOUNTER → 2023-10-18 11:11 | Outpatient (BNV) | payer MEDICARE, SELFPAY | PROVIDERS: Emergency Provider Emergency Medicine; PCP Internal Medicine; Visit Provider Internal Medicine Cardiovascular Disease | DX: I49.3 Ventricular premature depolarization (principal); I48.91 Unspecified atrial fibrillation | CPT/HCPCS: 93010 ==

== ENCOUNTER 2023-10-25 10:23 | Outpatient (AMB) | payer MEDICARE, SELFPAY ==
--- NOTE | 2023-10-25 10:43 | MHC.OFFVISCO ---
Intake Intake Visit Reasons: Anticoagulation Allergies pneumococcal vaccine [PNEUMOCOCCAL VACCINE] Allergy (Intermediate, Verified 10/25/23 10:39) RASH amoxicillin [From Augmentin] Allergy (Unknown, Verified 10/25/23 10:39) Swelling clavulanic acid [From Augmentin] Allergy (Unknown, Verified 10/25/23 10:39) Swelling theophylline Adverse Reaction (Intermediate, Verified 10/25/23 10:39) Loss of Appetite Medication List - Last Reconciled 10/25/23 by Amisha Winter RN albuterol sulfate 90 mcg/actuation 2 puffs PO Q2H PRN amlodipine 5 mg PO DAILY atorvastatin 40 mg PO DAILY carvedilol 6.25 mg PO BID cyanocobalamin (vitamin B-12) 1,000 mcg PO DAILY fluorouracil 5% 1 appl topical DAILY furosemide 40 mg PO DAILY ipratropium-albuterol 0.5 mg-3 mg(2.5 mg base)/3 mL 3 mL inhalation Q6H 30 days meclizine 25 mg PO DAILY PRN multivitamin (One Daily Multivitamin tablet) 1 tab PO DAILY nystatin topical BID tamsulosin 0.4 mg PO BID 90 days warfarin 3 mg See Protocol PO DIRECTED 30 days zolpidem 5 mg PO BEDTIME PRN Nursing Note INR 1.8-? out of therapeutic range of 2-3 pt denies missed dose Medications and supplements reviewed Patient status: to er last saturday- wasnt feeling well, off oxygen today- has oxygen tank with him, denies shortness of breath or any diff breathing, amb with cane. Erika present for visit Medications or supplements: no changes Diet: same, drinks orange juice and smoothies Denies any signs and symptoms of bleeding or clotting or unusual bruising Bleeding, bruising, clotting discussed - pt with areas of bruising on arms from ed visit last week-venipuncture sites Nutritional guidance given: no greens for 2 days, eat a red today food list reviewed Dose: take 6mg today, increase weekly dosing to 6mg x 6, 4.5mg x 1 F/U INR Date : 1 week?? Patient and verbalizing understanding of instructions given. Anti-Coag Initial Assessment Social Hx Patient Tobacco Use Status: Former Tobacco user Quit Date: 2015 alcohol intake: current Alcohol intake frequency: 0-2 drinks per day Cardiovascular Hx: HTN, OH (non stemi) and Arrhythmias (afib) Lung Disease HX: COPD Musculoskeletal Hx: Gout Blood Disorder Hx: Hyperlipidemia GI Hx: Hemorrhoids Hx: Kidney Disease (naren) and Prostate (prostate cancer) Cancer HX: Yes Psych. 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
[2023-10-25 10:45] LABS: Prothrombin Time Whole Bld POC 22.2 sec (11.1-13.5); ~PT, ~INR - Anti Coag Clinic 1.8 (0.9-1.1)
== END 2023-10-25 11:02 | disposition home or self-care (01) ==
LOC: HO.ACS 10:23
PROVIDERS: PCP Internal Medicine; Visit Provider Internal Medicine
DX: Z79.01 Long term (current) use of anticoagulants (principal)

== ENCOUNTER → 2023-10-25 10:23 | Outpatient (BNVA) | payer MEDICARE, SELFPAY | PROVIDERS: PCP Internal Medicine; Visit Provider Internal Medicine | DX: I48.0 Paroxysmal atrial fibrillation (principal); Z79.01 Long term (current) use of anticoagulants; Z51.81 Encounter for therapeutic drug level monitoring | CPT/HCPCS: 85610; 99212 ==

== ENCOUNTER 2023-11-01 10:27 | Outpatient (AMB) | payer MEDICARE, SELFPAY ==
[2023-11-01 10:54] LABS: Prothrombin Time Whole Bld POC 28.6 sec (11.1-13.5); ~PT, ~INR - Anti Coag Clinic 2.4 (0.9-1.1)
--- NOTE | 2023-11-01 11:03 | MHC.OFFVISCO ---
Intake Intake Visit Reasons: Anticoagulation Allergies pneumococcal vaccine [PNEUMOCOCCAL VACCINE] Allergy (Intermediate, Verified 11/01/23 10:49) RASH amoxicillin [From Augmentin] Allergy (Unknown, Verified 11/01/23 10:49) Swelling clavulanic acid [From Augmentin] Allergy (Unknown, Verified 11/01/23 10:49) Swelling theophylline Adverse Reaction (Intermediate, Verified 11/01/23 10:49) Loss of Appetite Medication List - Last Reconciled 11/01/23 by Imani Mckeon RN albuterol sulfate 90 mcg/actuation 2 puffs PO Q2H PRN amlodipine 5 mg PO DAILY atorvastatin 40 mg PO DAILY carvedilol 6.25 mg PO BID cyanocobalamin (vitamin B-12) 1,000 mcg PO DAILY fluorouracil 5% 1 appl topical DAILY furosemide 40 mg PO DAILY ipratropium-albuterol 0.5 mg-3 mg(2.5 mg base)/3 mL 3 mL inhalation Q6H 30 days meclizine 25 mg PO DAILY PRN multivitamin (One Daily Multivitamin tablet) 1 tab PO DAILY nystatin topical BID tamsulosin 0.4 mg PO BID 90 days warfarin 3 mg See Protocol PO DIRECTED 30 days zolpidem 5 mg PO BEDTIME PRN Nursing Note PT TO [facility] WITH NO C/O UNUSUAL BLEEDING OR BRUISING. NO CHEST PAIN OR SOB. PT STATES TO STAFF I HAVEN'T BEEN USING MY OXYGEN MUCH. NO CHANGES IN MEDICATIONS S/P RECENT ER VISIT INR 2.4 IN RANGE (RANGE 2-3). CONTINUE TO BALANCE GREENS. FOOD LIST REVIEWED AT LENGTH WITH PT AND . PLAN: TO TAKE 6MG DAILY ALL DAYS EXCEPT SATURDAY TAKE 4.5MG. PT AND VERBALIZE UNDERSTANDING. Anti-Coag Initial Assessment Social Hx Patient Tobacco Use Status: Former Tobacco user Quit Date: 2015 alcohol intake: current Alcohol intake frequency: 0-2 drinks per day Cardiovascular Hx: HTN, [place] (non stemi) and Arrhythmias (afib) Lung Disease HX: COPD Musculoskeletal Hx: Gout Blood Disorder Hx: Hyperlipidemia GI Hx: Hemorrhoids Hx: Kidney Disease (naren) and Prostate (prostate cancer) Cancer HX: Yes Psych. 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
== END 2023-11-01 11:26 | disposition home or self-care (01) ==
LOC: HO.ACS 10:27
PROVIDERS: PCP Internal Medicine; Visit Provider Internal Medicine
DX: Z79.01 Long term (current) use of anticoagulants (principal)

== ENCOUNTER → 2023-11-01 10:27 | Outpatient (BNVA) | payer MEDICARE, SELFPAY | PROVIDERS: PCP Internal Medicine; Visit Provider Internal Medicine | DX: I48.0 Paroxysmal atrial fibrillation (principal); Z79.01 Long term (current) use of anticoagulants; Z51.81 Encounter for therapeutic drug level monitoring | CPT/HCPCS: 85610; 99212 ==

== ENCOUNTER 2023-11-11 10:20 | Outpatient (AMB) | payer MEDICARE, SELFPAY ==
--- NOTE | 2023-11-11 10:33 | MHC.OFFVISCO ---
Intake Intake Visit Reasons: Anticoagulation Allergies pneumococcal vaccine [PNEUMOCOCCAL VACCINE] Allergy (Intermediate, Verified 11/11/23 10:27) RASH amoxicillin [From Augmentin] Allergy (Unknown, Verified 11/11/23 10:27) Swelling clavulanic acid [From Augmentin] Allergy (Unknown, Verified 11/11/23 10:27) Swelling theophylline Adverse Reaction (Intermediate, Verified 11/11/23 10:27) Loss of Appetite Medication List - Last Reconciled 11/11/23 by Amisha Winter RN albuterol sulfate 90 mcg/actuation 2 puffs PO Q2H PRN amlodipine 5 mg PO DAILY atorvastatin 40 mg PO DAILY carvedilol 6.25 mg PO BID cyanocobalamin (vitamin B-12) 1,000 mcg PO DAILY fluorouracil 5% 1 appl topical DAILY furosemide 40 mg PO DAILY ipratropium-albuterol 0.5 mg-3 mg(2.5 mg base)/3 mL 3 mL inhalation Q6H 30 days meclizine 25 mg PO DAILY PRN multivitamin (One Daily Multivitamin tablet) 1 tab PO DAILY nystatin topical BID tamsulosin 0.4 mg PO BID 90 days warfarin 3 mg See Protocol PO DIRECTED 30 days zolpidem 5 mg PO BEDTIME PRN Nursing Note INR: 2.0- in therapeutic range of 2-3 Medications and supplements reviewed No changes in health, diet, medications, or supplements, Denies any signs and symptoms of bleeding or bruising or clotting. Bleeding, bruising, clotting discussed Nutritional guidance given - no greens for 2 days, enc reds to raise food list reviewed Dose: 6mg x 6, 4.5mg x 1 F/U INR: 10 days Patient verbalizes understanding of instructions given pt without oxygen, denies resp diff at this time, pt megha present for visit Anti-Coag Initial Assessment Social Hx Patient Tobacco Use Status: Former Tobacco user Quit Date: 2015 alcohol intake: current Alcohol intake frequency: 0-2 drinks per day Cardiovascular Hx: HTN, [place] (non stemi) and Arrhythmias (afib) Lung Disease HX: COPD Musculoskeletal Hx: Gout Blood Disorder Hx: Hyperlipidemia GI Hx: Hemorrhoids Hx: Kidney Disease (naren) and Prostate (prostate cancer) Cancer HX: Yes Psych. 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
[2023-11-11 10:34] LABS: Prothrombin Time Whole Bld POC 24.2 sec (11.1-13.5)
== END 2023-11-11 10:44 | disposition home or self-care (01) ==
LOC: HO.ACS 10:20
PROVIDERS: PCP Internal Medicine; Visit Provider Internal Medicine
DX: Z79.01 Long term (current) use of anticoagulants (principal)

== ENCOUNTER → 2023-11-11 10:20 | Outpatient (BNVA) | payer MEDICARE, SELFPAY | PROVIDERS: PCP Internal Medicine; Visit Provider Internal Medicine | DX: I48.0 Paroxysmal atrial fibrillation (principal); Z51.81 Encounter for therapeutic drug level monitoring; Z79.01 Long term (current) use of anticoagulants | CPT/HCPCS: 85610; 99211 ==

== ENCOUNTER 2023-11-18 10:57 | Outpatient (REF) | payer MEDICARE, SELFPAY ==
[2023-11-18 11:00] LABS: MANUAL DIFF FLAG NO
[2023-11-18 11:20] LABS: Basophils Absolute Auto 0.1 X10*3/uL (0.0-0.2); Basophils Percent Auto 0.7 % (0-2); Eosinophils Absolute Auto 0.3 X10*3/uL (0.0-0.4); Eosinophils Percent Auto 3.1 % (0-4); Hematocrit 41.9 % (42.0-52.0); Hemoglobin 13.8 g/dl (14.0-18.0); Imm Gran Abs Auto 0.03 X10*3/uL (0.00-0.03); Imm Gran Pct Auto 0.3 % (0.0-0.4); Lymphocytes Absolute Auto 2.9 X10*3/uL (1.2-4.9); Mean Corpuscular HGB Conc 32.9 g/dl (31.0-36.0); Mean Corpuscular Hemoglobin 33.5 pg (27.0-33.0); Mean Corpuscular Volume 101.7 fL (80.0-98.0); Mean Platelet Volume 10.9 fL (9.4-12.4); Monocytes Percent Auto 10.2 % (2-11); Neutrophils Absolute Auto 5.1 x10*3/uL (2.0-8.3); Neutrophils Percent Auto 54.7 % (45-73); Platelet Count 262 X10*3/uL (160-400); Red Blood Count 4.12 X10*6/uL (4.60-5.80); Red Cell Distribution Width 14.1 % (11.0-16.0); White Blood Count 9.4 X10*3/uL (4.8-10.8)
== END 2023-11-18 10:58 | disposition home or self-care (01) ==
LOC: HO.LNP 10:57
PROVIDERS: Visit Provider Internal Medicine
DX: D64.9 Anemia, unspecified (principal)
CPT/HCPCS: 85025

== ENCOUNTER 2023-11-21 13:02 | Outpatient (AMB) | payer MEDICARE, SELFPAY ==
[2023-11-21 13:49] LABS: Prothrombin Time Whole Bld POC 28.7 sec (11.1-13.5); ~PT, ~INR - Anti Coag Clinic 2.4 (0.9-1.1)
--- NOTE | 2023-11-21 13:55 | MHC.OFFVISCO ---
Intake Intake Visit Reasons: Anticoagulation Allergies pneumococcal vaccine [PNEUMOCOCCAL VACCINE] Allergy (Intermediate, Verified 11/21/23 13:38) RASH amoxicillin [From Augmentin] Allergy (Unknown, Verified 11/21/23 13:38) Swelling clavulanic acid [From Augmentin] Allergy (Unknown, Verified 11/21/23 13:38) Swelling theophylline Adverse Reaction (Intermediate, Verified 11/21/23 13:38) Loss of Appetite Medication List - Last Reconciled 11/21/23 by Imani Mckeon, GUSTABO albuterol sulfate 90 mcg/actuation 2 puffs PO Q2H PRN amlodipine 5 mg PO DAILY atorvastatin 40 mg PO DAILY carvedilol 6.25 mg PO BID cyanocobalamin (vitamin B-12) 1,000 mcg PO DAILY fluorouracil 5% 1 appl topical DAILY furosemide 40 mg PO DAILY ipratropium-albuterol 0.5 mg-3 mg(2.5 mg base)/3 mL 3 mL inhalation Q6H 30 days meclizine 25 mg PO DAILY PRN multivitamin (One Daily Multivitamin tablet) 1 tab PO DAILY nystatin topical BID tamsulosin 0.4 mg PO BID 90 days warfarin 3 mg See Protocol PO DIRECTED 30 days zolpidem 5 mg PO BEDTIME PRN Nursing Note INR: 2.4 in therapeutic range OF 2-3 Medications and supplements reviewed No changes in health, diet, medications, or supplements, Denies any signs and symptoms of bleeding or bruising or clotting. Bleeding, bruising, clotting discussed Nutritional guidance given Dose: USUAL DOSE OF 4.5MG X1 DAY AND 6MG X6 DAYS F/U INR: 2 WEEKS Patient verbalizes understanding of instructions given Anti-Coag Initial Assessment Social Hx Patient Tobacco Use Status: Former Tobacco user Quit Date: 2015 alcohol intake: current Alcohol intake frequency: 0-2 drinks per day Cardiovascular Hx: HTN, [place] (non stemi) and Arrhythmias (afib) Lung Disease HX: COPD Musculoskeletal Hx: Gout Blood Disorder Hx: Hyperlipidemia GI Hx: Hemorrhoids Hx: Kidney Disease (naren) and Prostate (prostate cancer) Cancer HX: Yes Psych. 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
== END 2023-11-21 14:01 | disposition home or self-care (01) ==
LOC: HO.ACS 13:02
PROVIDERS: PCP Internal Medicine; Visit Provider Internal Medicine
DX: Z79.01 Long term (current) use of anticoagulants (principal)

== ENCOUNTER → 2023-11-21 13:02 | Outpatient (BNVA) | payer MEDICARE, SELFPAY | PROVIDERS: PCP Internal Medicine; Visit Provider Internal Medicine | DX: I48.0 Paroxysmal atrial fibrillation (principal); Z51.81 Encounter for therapeutic drug level monitoring; Z79.01 Long term (current) use of anticoagulants | CPT/HCPCS: 85610; 99211 ==

== ENCOUNTER 2023-12-05 08:52 | Outpatient (AMB) | payer MEDICARE, SELFPAY ==
[2023-12-05 09:19] LABS: ~PT, ~INR - Anti Coag Clinic 2.3 (0.9-1.1)
--- NOTE | 2023-12-05 09:27 | MHC.OFFVISCO ---
Intake Intake Visit Reasons: Anticoagulation Allergies pneumococcal vaccine [PNEUMOCOCCAL VACCINE] Allergy (Intermediate, Verified 12/05/23 09:12) RASH amoxicillin [From Augmentin] Allergy (Unknown, Verified 12/05/23 09:12) Swelling clavulanic acid [From Augmentin] Allergy (Unknown, Verified 12/05/23 09:12) Swelling theophylline Adverse Reaction (Intermediate, Verified 12/05/23 09:12) Loss of Appetite Medication List - Last Reconciled 12/05/23 by Imani Lee RN albuterol sulfate 90 mcg/actuation 2 puffs PO Q2H PRN amlodipine 5 mg PO DAILY atorvastatin 40 mg PO DAILY carvedilol 6.25 mg PO BID cyanocobalamin (vitamin B-12) 1,000 mcg PO DAILY fluorouracil 5% 1 appl topical DAILY furosemide 40 mg PO DAILY ipratropium-albuterol 0.5 mg-3 mg(2.5 mg base)/3 mL 3 mL inhalation Q6H 30 days meclizine 25 mg PO DAILY PRN multivitamin (One Daily Multivitamin tablet) 1 tab PO DAILY nystatin topical BID tamsulosin 0.4 mg PO BID 90 days warfarin See Protocol 6mg X6 days and 4.5mg X1 day orally as directed; Take medication as directed per anticoagulation clinic based on your INR blood test results, per anticoag clinic, dose is still in adjustment phase taking 6 mg X6 days and 4.5mg X1 day. 30 days zolpidem 5 mg PO BEDTIME PRN Nursing Note Amb to ACS using cane, accomp by , feeling well sts he has been using treadmill at home, they sts it is a manual one not electric Medications and supplements reviewed No changes in health, diet, medications, or supplements Denies any unusual signs and symptoms of bruising, bleeding Denies any new Chest pain, SOB, or clotting INR: 2.3 in therapeutic range Nutritional guidance given: balance greens and reds in diet, be consistent Dose: continue usual dosing;4.5mg x 1 day and 6mg x 6 days F/U INR: 2 weeks Patients verbalizes understanding of instructions given with accurate read back/ teach back of dosing Anti-Coag Initial Assessment Social Hx Patient Tobacco Use Status: Former Tobacco user Quit Date: 2015 alcohol intake: current Alcohol intake frequency: 0-2 drinks per day Cardiovascular Hx: HTN, [place] (non stemi) and Arrhythmias (afib) Lung Disease HX: COPD Musculoskeletal Hx: Gout Blood Disorder Hx: Hyperlipidemia GI Hx: Hemorrhoids Hx: Kidney Disease (naren) and Prostate (prostate cancer) Cancer HX: Yes Psych. Illness/Depression: No Coding Level of Care Code Est Patient Level 1 Diagnoses Current use of anticoagulant therapy Z79.01 Time Spent (min) 15 Assessment & Plan Assessment & Plan (1) Current use of anticoagulant therapy: Code(s): Z79.01 - [facility] (current) use of anticoagulants Category: Medical
== END 2023-12-05 09:30 | disposition home or self-care (01) ==
LOC: HO.ACS 08:52
PROVIDERS: PCP Internal Medicine; Visit Provider Internal Medicine
DX: Z79.01 Long term (current) use of anticoagulants (principal)

== ENCOUNTER → 2023-12-05 08:52 | Outpatient (BNVA) | payer MEDICARE, SELFPAY | PROVIDERS: PCP Internal Medicine; Visit Provider Internal Medicine | DX: I48.0 Paroxysmal atrial fibrillation (principal); Z79.01 Long term (current) use of anticoagulants; Z51.81 Encounter for therapeutic drug level monitoring | CPT/HCPCS: 85610; 99211 ==

== ENCOUNTER 2023-12-19 09:22 | Outpatient (AMB) | payer MEDICARE, SELFPAY ==
[2023-12-19 09:46] LABS: Prothrombin Time Whole Bld POC 34.9 sec (11.1-13.5); ~PT, ~INR - Anti Coag Clinic 2.9 (0.9-1.1)
--- NOTE | 2023-12-19 09:48 | MHC.OFFVISCO ---
Intake Intake Visit Reasons: Anticoagulation Allergies pneumococcal vaccine [PNEUMOCOCCAL VACCINE] Allergy (Intermediate, Verified 12/19/23 09:34) RASH amoxicillin [From Augmentin] Allergy (Unknown, Verified 12/19/23 09:34) Swelling clavulanic acid [From Augmentin] Allergy (Unknown, Verified 12/19/23 09:34) Swelling theophylline Adverse Reaction (Intermediate, Verified 12/19/23 09:34) Loss of Appetite Medication List - Last Reconciled 12/19/23 by Imani Lee RN albuterol sulfate 90 mcg/actuation 2 puffs PO Q2H PRN amlodipine 5 mg PO DAILY atorvastatin 40 mg PO DAILY carvedilol 6.25 mg PO BID cyanocobalamin (vitamin B-12) 1,000 mcg PO DAILY fluorouracil 5% 1 appl topical DAILY furosemide 40 mg PO DAILY ipratropium-albuterol 0.5 mg-3 mg(2.5 mg base)/3 mL 3 mL inhalation Q6H 30 days meclizine 25 mg PO DAILY PRN multivitamin (One Daily Multivitamin tablet) 1 tab PO DAILY nystatin topical BID tamsulosin 0.4 mg PO BID 90 days warfarin See Protocol 6mg X6 days and 4.5mg X1 day orally as directed; Take medication as directed per anticoagulation clinic based on your INR blood test results, per anticoag clinic, dose is still in adjustment phase taking 6 mg X6 days and 4.5mg X1 day. 30 days zolpidem 5 mg PO BEDTIME PRN Nursing Note Amb to ACS using cane, accomp by , feeling much better than last week pt and relating to GI bug going through the house. Pt had vomitting and diarrhea 3/- 3 reviewed with pt and vomitting and diarrhea can increase INR Medications and supplements reviewed No other changes in health, diet, medications, or supplements Denies any unusual signs and symptoms of bruising, bleeding Denies any new Chest pain, SOB, or clotting INR:2.9 in therapeutic range Nutritional guidance given: balance greens and reds in diet Dose: continue usual dosing;4.5mg x 1 day and 6mg x 6 days F/U INR: 2 weeks Patient verbalizes understanding of instructions given with accurate read back/ teach back of dosing Anti-Coag Initial Assessment Social Hx Patient Tobacco Use Status: Former Tobacco user Quit Date: 2015 alcohol intake: current Alcohol intake frequency: 0-2 drinks per day Cardiovascular Hx: HTN, [place] (non stemi) and Arrhythmias (afib) Lung Disease HX: COPD Musculoskeletal Hx: Gout Blood Disorder Hx: Hyperlipidemia GI Hx: Hemorrhoids Hx: Kidney Disease (naren) and Prostate (prostate cancer) Cancer HX: Yes Psych. 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
== END 2023-12-19 09:56 | disposition home or self-care (01) ==
LOC: HO.ACS 09:22
PROVIDERS: PCP Internal Medicine; Visit Provider Internal Medicine
DX: Z79.01 Long term (current) use of anticoagulants (principal)

== ENCOUNTER → 2023-12-19 09:22 | Outpatient (BNVA) | payer MEDICARE, SELFPAY | PROVIDERS: PCP Internal Medicine; Visit Provider Internal Medicine | DX: I48.0 Paroxysmal atrial fibrillation (principal); Z79.01 Long term (current) use of anticoagulants; Z51.81 Encounter for therapeutic drug level monitoring | CPT/HCPCS: 85610; 99211 ==

== ENCOUNTER 2023-12-24 13:46 | Outpatient (AMB) | payer MEDICARE, SELFPAY ==
--- NOTE | 2023-12-24 13:47 | MHC.OFFVIS ---
Intake Vital Signs 12/24/23 13:53 Weight 174 lb BP 124/62 Blood Pressure Location Rt brachial Position Sitting Pulse 84 Pulse Source Doppler Pulse Oximetry (%) 92 Oxygen Delivery Method Room Air Intake Visit Reasons: COPD Allergies pneumococcal vaccine [PNEUMOCOCCAL VACCINE] Allergy (Intermediate, Verified 12/24/23 13:57) RASH amoxicillin [From Augmentin] Allergy (Unknown, Verified 12/24/23 13:57) Swelling clavulanic acid [From Augmentin] Allergy (Unknown, Verified 12/24/23 13:57) Swelling theophylline Adverse Reaction (Intermediate, Verified 12/24/23 13:57) Loss of Appetite HPI COPD HPI Details 83-year-old gentleman, greater than 50 pack-year smoker, quit 2018 followed for moderate to severe COPD supplementary oxygen at 2 L dependent and dyspnea on exertion.? He continues on DuoNebs with reasonable control of his symptoms. He denies any recent exacerbations. He does complain of worsening lower extremity edema, orthopnea, and dyspnea on exertion. [facility] Medical History High cholesterol Gout Hypertension Essential hypertension Prostate cancer Pulmonary nodules COPD (chronic obstructive pulmonary disease) Surgical History History of spinal surgery Family History Father No problems noted. Mother No problems noted. 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 Current occupational exposures/hazards: No Review of Systems Const Denies daytime sleepiness, Denies excessive sweating, Denies fatigue, Denies fever(s), Denies lethargy, Denies malaise, Denies night sweats, Denies snoring and Denies weight loss Eyes Denies blurry vision and Denies itchy eyes ENT Denies nasal congestion, Denies post nasal drip, Denies sinus pain, Denies sinus pressure and Denies other ( Thrush) Card Denies chest pain, Reports pedal edema, Denies dyspnea, Reports orthopnea and Denies paroxysmal nocturnal dyspnea Resp Denies cough, Denies hemoptysis, Denies excessive phlegm production, Denies dyspnea, Denies snoring and Denies wheezing GI Denies abdominal pain and Denies heartburn Musc Denies myalgias, Denies arthralgias and Denies joint swelling Skin/Breast Denies rash Neuro Denies memory loss and Denies seizure-like activity Psych Denies abnormal sleep pattern, Denies anxiety and Denies memory loss Endo Denies excessive sweating, Denies fatigue and Denies heat intolerance Alexander/Lymph Denies easy bruising Aller/Immun Denies itchy eyes, Denies seasonal rhinorrhea and Denies wheezing Physical Exam Vital Signs: Last Vital Signs Pulse 84 12/24/23 13:53 BP 124/62 12/24/23 13:53 Pulse Ox 92 12/24/23 13:53 Oxygen Delivery Method Room Air 12/24/23 13:53 Const General: no acute distress and alert Nutritional Appearance: not obese Orientation/consciousness: Other orientation findings ( oriented) HEENT Head: Yes atraumatic Eyes General: appearance normal, both eyes and all related structures Sclerae: sclerae normal EOM: EOMs intact bilaterally Neck Neck: Yes supple Lymphatic: no lymphadenopathy noted Resp Effort & Inspection: normal respiratory effort and no use of accessory muscles Auscultation: clear to auscultation bilaterally Cardio Rate: regular rate Rhythm: regular rhythm Heart sounds: no gallops, no murmurs and no rubs Skin General skin exam: other ( warm) Extrem General: No clubbing, No cyanosis and Yes edema (2+ bilateral) Assessment & Plan Assessment & Plan (1) COPD (chronic obstructive pulmonary disease): Code(s): J44.9 - Chronic obstructive pulmonary disease, unspecified Plan: Baseline controlled on duo nebs 3 times a day. Continue current regimen. Intolerant of theophylline. (2) Supplemental oxygen dependent: Code(s): Z99.81 - Dependence on supplemental oxygen Plan: Continue supplemental oxygen to maintain O2 saturation of 88-92%. (3) Orthopnea: Code(s): R06.01 - Orthopnea Plan: With worsening lower extremity edema, will increase Lasix to 60 mg every morning. Medications: Changed From furosemide 40 mg PO DAILY To furosemide 60 mg (1.5 x 40 mg) PO DAILY 30 days 45 tabs 6RF Coding Level of Care Code Est Pt Level 4 (00023) Diagnoses COPD (chronic obstructive pulmonary disease) J44.9 Supplemental oxygen dependent Z99.81 Orthopnea R06.01
[2023-12-24 13:53] VITALS: BP 124/62; PULSE 84; O2SAT 92
== END 2023-12-24 14:08 | disposition home or self-care (01) ==
PROVIDERS: PCP Internal Medicine; Visit Provider Internal Medicine Pulmonary Disease
DX: J44.9 Chronic obstructive pulmonary disease, unspecified (principal); Z99.81 Dependence on supplemental oxygen; R06.01 Orthopnea
CPT/HCPCS: 99214

== ENCOUNTER → 2023-12-24 13:46 | Outpatient (BNVA) | payer MEDICARE, SELFPAY | PROVIDERS: PCP Internal Medicine; Visit Provider Internal Medicine Pulmonary Disease | DX: J44.9 Chronic obstructive pulmonary disease, unspecified (principal); R06.01 Orthopnea; Z99.81 Dependence on supplemental oxygen | CPT/HCPCS: 99212 ==

== ENCOUNTER 2024-01-02 09:21 | Outpatient (AMB) | payer MEDICARE, SELFPAY ==
[2024-01-02 09:34] LABS: Prothrombin Time Whole Bld POC 28.3 sec (11.1-13.5); ~PT, ~INR - Anti Coag Clinic 2.4 (0.9-1.1)
--- NOTE | 2024-01-02 09:42 | MHC.OFFVISCO ---
Intake Intake Visit Reasons: Anticoagulation Allergies pneumococcal vaccine [PNEUMOCOCCAL VACCINE] Allergy (Intermediate, Verified 01/02/24 09:25) RASH amoxicillin [From Augmentin] Allergy (Unknown, Verified 01/02/24 09:25) Swelling clavulanic acid [From Augmentin] Allergy (Unknown, Verified 01/02/24 09:25) Swelling theophylline Adverse Reaction (Intermediate, Verified 01/02/24 09:25) Loss of Appetite Nursing Note To ACS accompanied by INR: 2.4 in therapeutic range of 2-3 Medications and supplements reviewed: no changes No changes in health, diet, medications, or supplements, Denies any signs and symptoms of bleeding or bruising or clotting. Bleeding, bruising, clotting discussed Nutritional guidance given to balance reds and greens Dose: cont usual dose of 6mg X 6 days and 4.5mg X 1 day F/U INR: 2 weeks Patient verbalizes understanding of instructions given Anti-Coag Initial Assessment Social Hx Patient Tobacco Use Status: Former Tobacco user Quit Date: 2015 alcohol intake: current Alcohol intake frequency: 0-2 drinks per day Cardiovascular Hx: HTN, CT (non stemi) and Arrhythmias (afib) Lung Disease HX: COPD Musculoskeletal Hx: Gout Blood Disorder Hx: Hyperlipidemia GI Hx: Hemorrhoids Hx: Kidney Disease (naren) and Prostate (prostate cancer) Cancer HX: Yes Psych. 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
== END 2024-01-02 09:47 | disposition home or self-care (01) ==
LOC: HO.ACS 09:21
PROVIDERS: PCP Internal Medicine; Visit Provider Internal Medicine
DX: Z79.01 Long term (current) use of anticoagulants (principal)

== ENCOUNTER → 2024-01-02 09:21 | Outpatient (BNVA) | payer MEDICARE, SELFPAY | PROVIDERS: PCP Internal Medicine; Visit Provider Internal Medicine | DX: I48.0 Paroxysmal atrial fibrillation (principal); Z79.01 Long term (current) use of anticoagulants; Z51.81 Encounter for therapeutic drug level monitoring | CPT/HCPCS: 85610; 99211 ==

== ENCOUNTER 2024-01-16 09:47 | Outpatient (AMB) | payer MEDICARE, SELFPAY ==
--- NOTE | 2024-01-16 10:12 | MHC.OFFVISCO ---
Intake Intake Visit Reasons: Anticoagulation Allergies pneumococcal vaccine [PNEUMOCOCCAL VACCINE] Allergy (Intermediate, Verified 01/16/24 09:57) RASH amoxicillin [From Augmentin] Allergy (Unknown, Verified 01/16/24 09:57) Swelling clavulanic acid [From Augmentin] Allergy (Unknown, Verified 01/16/24 09:57) Swelling theophylline Adverse Reaction (Intermediate, Verified 01/16/24 09:57) Loss of Appetite Medication List - Last Reconciled 01/16/24 by Gertrudis Simeon RN albuterol sulfate 90 mcg/actuation 2 puffs PO Q2H PRN amlodipine 5 mg PO DAILY atorvastatin 40 mg PO DAILY carvedilol 6.25 mg PO BID cyanocobalamin (vitamin B-12) 1,000 mcg PO DAILY fluorouracil 5% 1 appl topical DAILY furosemide 60 mg (1.5 x 40 mg) PO DAILY 30 days ipratropium-albuterol 0.5 mg-3 mg(2.5 mg base)/3 mL 3 mL inhalation Q6H 30 days meclizine 25 mg PO DAILY PRN multivitamin (One Daily Multivitamin tablet) 1 tab PO DAILY nystatin topical BID tamsulosin 0.4 mg PO BID 90 days warfarin See Protocol 6mg X6 days and 4.5mg X1 day orally as directed; Take medication as directed per anticoagulation clinic based on your INR blood test results, per anticoag clinic, dose is still in adjustment phase taking 6 mg X6 days and 4.5mg X1 day. 30 days zolpidem 5 mg PO BEDTIME PRN Nursing Note INR: 3.3 ALMOST in therapeutic range - HAD TURNIP AND CARROTS RECENTLY WHCIH CAN RAISE THE INR Medications and supplements reviewed No changes in health, diet, medications, or supplements, Denies any signs and symptoms of bleeding or bruising or clotting. Bleeding, bruising, clotting discussed Nutritional guidance given- HAVE MORE GREENS Dose: 4.5MG X 1 DAY/ 6MG X 6 DAYS F/U INR: 2 WEEKS Patient verbalizes understanding of instructions given Anti-Coag Initial Assessment Social Hx Patient Tobacco Use Status: Former Tobacco user Quit Date: 2015 alcohol intake: current Alcohol intake frequency: 0-2 drinks per day Cardiovascular Hx: HTN, [place] (non stemi) and Arrhythmias (afib) Lung Disease HX: COPD Musculoskeletal Hx: Gout Blood Disorder Hx: Hyperlipidemia GI Hx: Hemorrhoids Hx: Kidney Disease (naren) and Prostate (prostate cancer) Cancer HX: Yes Psych. Illness/Depression: No Coding Level of Care Code Est Patient Level 1 Diagnoses Current use of anticoagulant therapy Z79.01 Results AMB INR Fingerstick AMB INR Fingerstick 3.3 Last Edit by Gertrudis Simeon RN on 01/16/24 10:07 MANUAL ENTRY Assessment & Plan Assessment & Plan (1) Current use of anticoagulant therapy: Code(s): Z79.01 - [facility] (current) use of anticoagulants Category: Medical
[2024-01-16 10:13] LABS: ~PT, ~INR - Anti Coag Clinic 3.3 (0.9-1.1)
== END 2024-01-16 10:15 | disposition home or self-care (01) ==
LOC: HO.ACS 09:47
PROVIDERS: PCP Internal Medicine; Visit Provider Internal Medicine
DX: Z79.01 Long term (current) use of anticoagulants (principal)

== ENCOUNTER → 2024-01-16 09:47 | Outpatient (BNVA) | payer MEDICARE, SELFPAY | PROVIDERS: PCP Internal Medicine; Visit Provider Internal Medicine | DX: I48.0 Paroxysmal atrial fibrillation (principal); Z79.01 Long term (current) use of anticoagulants; Z51.81 Encounter for therapeutic drug level monitoring | CPT/HCPCS: 85610; 99211 ==

== ENCOUNTER 2024-01-30 09:28 | Outpatient (AMB) | payer MEDICARE, SELFPAY ==
[2024-01-30 09:43] LABS: Prothrombin Time Whole Bld POC 26.4 sec (11.1-13.5); ~PT, ~INR - Anti Coag Clinic 2.2 (0.9-1.1)
--- NOTE | 2024-01-30 09:53 | MHC.OFFVISCO ---
Intake Intake Visit Reasons: Anticoagulation Allergies pneumococcal vaccine [PNEUMOCOCCAL VACCINE] Allergy (Intermediate, Verified 01/30/24 09:36) RASH amoxicillin [From Augmentin] Allergy (Unknown, Verified 01/30/24 09:36) Swelling clavulanic acid [From Augmentin] Allergy (Unknown, Verified 01/30/24 09:36) Swelling theophylline Adverse Reaction (Intermediate, Verified 01/30/24 09:36) Loss of Appetite Medication List - Last Reconciled 01/30/24 by Gertrudis Simeon RN albuterol sulfate 90 mcg/actuation 2 puffs PO Q2H PRN amlodipine 5 mg PO DAILY atorvastatin 40 mg PO DAILY carvedilol 6.25 mg PO BID cyanocobalamin (vitamin B-12) 1,000 mcg PO DAILY fluorouracil 5% 1 appl topical DAILY furosemide 60 mg (1.5 x 40 mg) PO DAILY 30 days ipratropium-albuterol 0.5 mg-3 mg(2.5 mg base)/3 mL 3 mL inhalation Q6H 30 days meclizine 25 mg PO DAILY PRN multivitamin (One Daily Multivitamin tablet) 1 tab PO DAILY nystatin topical BID tamsulosin 0.4 mg PO BID 90 days warfarin See Protocol 6mg X6 days and 4.5mg X1 day orally as directed; Take medication as directed per anticoagulation clinic based on your INR blood test results, per anticoag clinic, dose is still in adjustment phase taking 6 mg X6 days and 4.5mg X1 day. 30 days zolpidem 5 mg PO BEDTIME PRN Nursing Note INR: 2.2 in therapeutic range Medications and supplements reviewed * Had mild GI upset gas and diarrhea - takingprn immodium with relief and may try gas-ex prn also and eating yogurt or saurkraut prn Denies any signs and symptoms of bleeding or bruising or clotting. Bleeding, bruising, clotting discussed Nutritional guidance given - review food list weekly Dose: keep same dose 4.5mg x 1 day / 6mg x 6 days F/U INR: 2 weeks then possibly 3 weeks if stable Patient verbalizes understanding of instructions given Anti-Coag Initial Assessment Social Hx Patient Tobacco Use Status: Former Tobacco user Quit Date: 2015 alcohol intake: current Alcohol intake frequency: 0-2 drinks per day Cardiovascular Hx: HTN, [place] (non stemi) and Arrhythmias (afib) Lung Disease HX: COPD Musculoskeletal Hx: Gout Blood Disorder Hx: Hyperlipidemia GI Hx: Hemorrhoids Hx: Kidney Disease (naren) and Prostate (prostate cancer) Cancer HX: Yes Psych. Illness/Depression: No Coding Level of Care Code Est Patient Level 1 Diagnoses Current use of anticoagulant therapy Z79.01 Results AMB INR Fingerstick AMB INR Fingerstick 2.2 Last Edit by Gertrudis Simeon RN on 01/30/24 09:47 MANUAL ENTRY Assessment & Plan Assessment & Plan (1) Current use of anticoagulant therapy: Code(s): Z79.01 - nursing home (current) use of anticoagulants Category: Medical
== END 2024-01-30 09:57 | disposition home or self-care (01) ==
LOC: HO.ACS 09:28
PROVIDERS: PCP Internal Medicine; Visit Provider Internal Medicine
DX: Z79.01 Long term (current) use of anticoagulants (principal)

== ENCOUNTER → 2024-01-30 09:28 | Outpatient (BNVA) | payer MEDICARE, SELFPAY | PROVIDERS: PCP Internal Medicine; Visit Provider Internal Medicine | DX: I48.0 Paroxysmal atrial fibrillation (principal); Z51.81 Encounter for therapeutic drug level monitoring; Z79.01 Long term (current) use of anticoagulants | CPT/HCPCS: 85610; 99211 ==

== ENCOUNTER 2024-02-05 10:30 | Outpatient (AMB) | payer MEDICARE, SELFPAY ==
[2024-02-05 10:32] VITALS: BP 120/60; PULSE 87; BMI 26.3
--- NOTE | 2024-02-05 10:32 | A.OFFVIS_ITS ---
Vital Signs 02/05/24 10:32 Height 5 ft 7 in Weight 168 lb 3.403 oz BMI 26.3 BP 120/60 Blood Pressure Location Lt brachial Position Sitting Pulse 87 Pulse Source Pulse Oximeter Intake Visit Reasons: r/s 4 mos followup Tree Killer Required: No Accompanied by: Self / Same As Patient Allergies pneumococcal vaccine [PNEUMOCOCCAL VACCINE] Allergy (Intermediate, Verified 01/30/24 09:36) RASH amoxicillin [From Augmentin] Allergy (Unknown, Verified 01/30/24 09:36) Swelling clavulanic acid [From Augmentin] Allergy (Unknown, Verified 01/30/24 09:36) Swelling theophylline Adverse Reaction (Intermediate, Verified 01/30/24 09:36) Loss of Appetite Medication List - Last Reconciled 02/05/24 by Minor Gautam MD albuterol sulfate 90 mcg/actuation 2 puffs PO Q2H PRN amlodipine 5 mg PO DAILY atorvastatin 40 mg PO DAILY carvedilol 6.25 mg PO BID cyanocobalamin (vitamin B-12) 1,000 mcg PO DAILY fluorouracil 5% 1 appl topical DAILY furosemide 60 mg (1.5 x 40 mg) PO DAILY 30 days ipratropium-albuterol 0.5 mg-3 mg(2.5 mg base)/3 mL 3 mL inhalation Q6H 30 days loperamide (Imodium A-D) PO PRN multivitamin (One Daily Multivitamin tablet) 1 tab PO DAILY tamsulosin 0.4 mg PO BID 90 days warfarin See Protocol 6mg X6 days and 4.5mg X1 day orally as directed; Take medication as directed per anticoagulation clinic based on your INR blood test results, per anticoag clinic, dose is still in adjustment phase taking 6 mg X6 days and 4.5mg X1 day. 30 days zolpidem 5 mg PO BEDTIME PRN HPI Comments Details: 83-year-old gentleman with background history of hypertension, COPD, dyspnea on exertion and prostate cancer. His blood pressure was previously well controlled on amlodipine and hydrochlorothiazide. Early April 2021 he had a bad headache and went to the emergency department and was noticed to have significantly elevated blood pressures. He was admitted and started on medications. He said after addition of lisinopril and amlodipine his blood pressure dropped too low and he developed kidney injury. After that all his medication was stopped and he was sent home. He is denying any more headaches. He has no chest discomfort shortness of breath. He had mildly abnormal troponin levels in the setting of high blood pressures which was thought to be type 2 NV. subsequent to that he was referred for a nuclear perfusion study which was normal. On last visit we added amlodipine back because of blood pressure was elevated. It appears his amlodipine was increased and he was up to 10 mg of amlodipine. He said recently Dr. Pepper decreased it to 5 mg. In the office his blood pressure is 150s. He is denying any significant symptoms other than shortness of breath which has been a chronic issue for him due to his COPD. 08/21/23: Here for f/u. He has been on supplemental oxygen x 3 L. He has been SOB with activity due to COPD. He is saying his oxygen saturations are 80% without oxygen. He also has irregular heart rhythm today. He has no palpita tions. 02/05/24: He is here for follow-up. Blood pressure is well controlled. His main complaint is fatigue and shortness of breath with activity. He previously was noticed to be hypoxic without supplemental oxygen. He is using oxygen off and on. He is saying when he wakes up his oxygen saturations are in 80s. [facility] Medical History High cholesterol Gout Hypertension Essential hypertension Prostate cancer Pulmonary nodules COPD (chronic obstructive pulmonary disease) Surgical History History of spinal surgery Family History Father No problems noted. Mother No problems noted. 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 Current occupational exposures/hazards: No Review of Systems Const Denies chills, Denies fatigue, Denies fever(s), Denies frequent falls, Denies weakness, Denies weight gain and Denies weight loss ENT Denies dizziness Card Denies chest pain, Denies leg edema, Denies lightheadedness, Denies palpitations, Denies dyspnea and Denies dyspnea on exertion Resp Denies cough, Denies dyspnea and Denies dyspnea on exertion GI Denies hematochezia Musc Denies abnormal gait, Denies muscle weakness, Denies numbness, Denies radiating pain into limb and Denies tingling Neuro Denies abnormal gait, Denies dizziness, Denies frequent falls, Denies numbness, Denies tingling and Denies weakness Endo Denies fatigue and Denies palpitations Physical Exam Vital Signs: Last Vital Signs Pulse 87 02/05/24 10:32 BP 120/60 02/05/24 10:32 BMI result Body Mass Index 26.3 GENERAL APPEARANCE: in no acute distress. on supplemental oxygen. NECK/THYROID: no carotid bruit, no jugular venous distention. SKIN: no suspicious lesions, warm and dry. HEART: no murmurs, irregular rate and rhythm, S1, S2 normal. LUNGS: clear to auscultation bilaterally. ABDOMEN: normal, bowel sounds present, soft, nontender, nondistended. EXTREMITIES: no clubbing, cyanosis, or edema. PERIPHERAL PULSES: equal. NEUROLOGIC: nonfocal, alert and oriented. PSYCH: mood/affect full range. Assessment & Plan Assessment & Plan (1) PAF (paroxysmal atrial fibrillation): Code(s): I48.0 - Paroxysmal atrial fibrillation Category: Medical (2) Supplemental oxygen dependent: Code(s): Z99.81 - Dependence on supplemental oxygen Category: Medical (3) CABALLERO (dyspnea on exertion): Code(s): R06.09 - Other forms of dyspnea Category: Medical Plan Pleasant 83 year gentleman who is here for follow-up. He has background history of hypertension, COPD and prostate cancer. He was diagnosed with new onset atrial fibrillation and was started on Eliquis. His heart rates have been well controlled. He is background is asking about his fatigue and shortness of breath and whether this is due to lung disease and heart disease. I think most of his symptoms are related to deconditioning, he is quite frail. I have advised him to exercise regularly and potentially wear oxygen while exercising. I think he should also wear oxygen when he sleeping with his oxygen saturations are in low 80s in the morning. Clinically not in heart failure. No further cardiovascular workup is required. I think he should exercise regularly and hopefully with conditioning his muscles his dyspnea/fatigue will improve further. Thank you for allowing me to participate in the care of your patient. Please feel free to contact me if you have any questions. Coding Level of Care Code Est Pt Level 4 (72330) Diagnoses PAF (paroxysmal atrial fibrillation) I48.0 Supplemental oxygen dependent Z99.81 CABALLERO (dyspnea on exertion) R06.09
== END 2024-02-05 11:09 | disposition home or self-care (01) ==
PROVIDERS: PCP Internal Medicine; Visit Provider Internal Medicine Cardiovascular Disease
DX: I48.0 Paroxysmal atrial fibrillation (principal); Z99.81 Dependence on supplemental oxygen; R06.09 Other forms of dyspnea
CPT/HCPCS: 99214

== ENCOUNTER → 2024-02-05 10:30 | Outpatient (BNVA) | payer MEDICARE, SELFPAY | PROVIDERS: PCP Internal Medicine; Visit Provider Internal Medicine Cardiovascular Disease | DX: R06.09 Other forms of dyspnea (principal); I48.0 Paroxysmal atrial fibrillation; I10 Essential (primary) hypertension; J44.9 Chronic obstructive pulmonary disease, unspecified; Z99.81 Dependence on supplemental oxygen | CPT/HCPCS: 99212 ==

== ENCOUNTER 2024-02-11 11:12 | Outpatient (REF) | payer MEDICARE, SELFPAY ==
[2024-02-11 11:16] LABS: MANUAL DIFF FLAG NO
[2024-02-11 11:57] LABS: Basophils Absolute Auto 0.1 X10*3/uL (0.0-0.2); Basophils Percent Auto 0.6 % (0-2); Eosinophils Absolute Auto 0.3 X10*3/uL (0.0-0.4); Eosinophils Percent Auto 3.2 % (0-4); Hematocrit 43.5 % (42.0-52.0); Hemoglobin 14.2 g/dl (14.0-18.0); Imm Gran Abs Auto 0.03 X10*3/uL (0.00-0.03); Imm Gran Pct Auto 0.3 % (0.0-0.4); Lymphocytes Absolute Auto 3.4 X10*3/uL (1.2-4.9); Lymphocytes Percent Auto 35.6 % (20-40); Mean Corpuscular HGB Conc 32.6 g/dl (31.0-36.0); Mean Corpuscular Hemoglobin 33.1 pg (27.0-33.0); Mean Corpuscular Volume 101.4 fL (80.0-98.0); Mean Platelet Volume 10.5 fL (9.4-12.4); Monocytes Absolute Auto 0.9 X10*3/uL (0.1-1.2); Monocytes Percent Auto 8.8 % (2-11); Neutrophils Percent Auto 51.5 % (45-73); Platelet Count 243 X10*3/uL (160-400); Red Blood Count 4.29 X10*6/uL (4.60-5.80); Red Cell Distribution Width 13.5 % (11.0-16.0); White Blood Count 9.6 X10*3/uL (4.8-10.8)
[2024-02-11 12:03] LABS: Alanine Aminotransferase 19 U/L (0-40); Albumin Level 3.8 g/dL (3.5-5.0); Alkaline Phosphatase 90 U/L (39-117); Anion Gap 13 (12-20); Aspartate Amino Transferase 25 U/L (5-37); Bilirubin Total 0.6 mg/dL (0.0-1.0); Blood Urea Nitrogen 23 mg/dL (9-16); Calcium 9.2 mg/dL (8.4-10.2); Carbon Dioxide 35 mmol/L (22-29); Chloride 99 mmol/L (96-108); Cholesterol 125 mg/dL (<200); Estimated Glomerular Filt Rate 60; Glucose Fasting 94 mg/dL (60-99); HDL Cholesterol 41 mg/dL (>40); Iron 67 mcg/dL (45-160); LDL Cholesterol Calculated 67 mg/dL (<100); Percent Iron Saturation 24 % (15-50); Potassium 3.9 mmol/L (3.3-5.1); Sodium 143 mmol/L (135-145); Total Iron Binding Capacity 279 mcg/dL (228-428); Total Protein 7.1 g/dL (6.5-8.0); Triglycerides 89 mg/dL (<150); Unsaturated Iron Binding 212 ug/dL
[2024-02-11 12:20] LABS: Appearance Urine Clear; Color Urine Yellow; Glucose Urine UA Negative (Negative); Leukocyte Esterase Urine Trace (Negative); Nitrite Urine Negative (Negative); PH 7.5 (5.0-9.0); Specific Gravity - Urine 1.025 (1.005-1.025); UMIC TRIGGER UACC YES; Urine Blood Negative (Negative); Urine Ketones Negative (Negative); Urine Protein 30 (1+) mg/dL (Neg-Trace)
[2024-02-11 12:24] LABS: Bacteria Urine None Seen (None Seen); Hyaline Casts Urine 0-2 /LPF (0-2); RBC Urine 0-2 /HPF (0-2); Squamous Epithelial Cell Urine 0-2 /HPF (0-2); WBC Urine 0-5 /HPF (0-5)
[2024-02-11 12:25] LABS: PSA,Total (Free>4and<10) < 0.10 ng/mL (0.00-4.00)
[2024-02-15 16:14] LABS: Testosterone, Free 34.3 pg/mL (30.0-135.0); Testosterone, Total 281 ng/dL (250-1100)
== END 2024-02-11 11:13 | disposition home or self-care (01) ==
LOC: HO.LNP 11:12
PROVIDERS: Visit Provider Internal Medicine
DX: Z00.00 Encounter for general adult medical examination without abnormal findings (principal); I10 Essential (primary) hypertension; E78.00 Pure hypercholesterolemia, unspecified; D50.9 Iron deficiency anemia, unspecified; E29.1 Testicular hypofunction; Z12.5 Encounter for screening for malignant neoplasm of prostate
CPT/HCPCS: 80053; 80061; 81001; 83540; 84153; 84402; 84403; 85025

== ENCOUNTER 2024-02-13 09:31 | Outpatient (AMB) | payer MEDICARE, SELFPAY ==
[2024-02-13 09:54] LABS: Prothrombin Time Whole Bld POC 33.5 sec (11.1-13.5); ~PT, ~INR - Anti Coag Clinic 2.8 (0.9-1.1)
--- NOTE | 2024-02-13 10:02 | MHC.OFFVISCO ---
Intake Intake Visit Reasons: Anticoagulation Allergies pneumococcal vaccine [PNEUMOCOCCAL VACCINE] Allergy (Intermediate, Verified 01/30/24 09:36) RASH amoxicillin [From Augmentin] Allergy (Unknown, Verified 01/30/24 09:36) Swelling clavulanic acid [From Augmentin] Allergy (Unknown, Verified 01/30/24 09:36) Swelling theophylline Adverse Reaction (Intermediate, Verified 01/30/24 09:36) Loss of Appetite Nursing Note INR: 2.8 in therapeutic range- GOING OUT SIDE MORE WITH NICE WEATHER TO HAVE GI CONSULT - SOMETIMES HE FEELS FOODS GET STUCK AND ALSO HAS BEEN HAVING MORE GAS: Medications and supplements reviewed No changes in health, diet, medications, or supplements, Denies any signs and symptoms of bleeding or bruising or clotting. Bleeding, bruising, clotting discussed Nutritional guidance given Dose: 4.5MG X 1 DAY/ 6MG X 6 DAYS F/U INR: 3 WEEKS Patient verbalizes understanding of instructions given Anti-Coag Initial Assessment Social Hx Patient Tobacco Use Status: Former Tobacco user Quit Date: 2015 alcohol intake: current Alcohol intake frequency: 0-2 drinks per day Cardiovascular Hx: HTN, [place] (non stemi) and Arrhythmias (afib) Lung Disease HX: COPD Musculoskeletal Hx: Gout Blood Disorder Hx: Hyperlipidemia GI Hx: Hemorrhoids Hx: Kidney Disease (naren) and Prostate (prostate cancer) Cancer HX: Yes Psych. 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
== END 2024-02-13 10:06 | disposition home or self-care (01) ==
LOC: HO.ACS 09:31
PROVIDERS: PCP Internal Medicine; Visit Provider Internal Medicine
DX: Z79.01 Long term (current) use of anticoagulants (principal)

== ENCOUNTER → 2024-02-13 09:31 | Outpatient (BNVA) | payer MEDICARE, SELFPAY | PROVIDERS: PCP Internal Medicine; Visit Provider Internal Medicine | DX: I48.0 Paroxysmal atrial fibrillation (principal); Z79.01 Long term (current) use of anticoagulants; Z51.81 Encounter for therapeutic drug level monitoring | CPT/HCPCS: 85610; 99211 ==

== ENCOUNTER 2024-03-05 09:31 | Outpatient (AMB) | payer MEDICARE, SELFPAY ==
--- NOTE | 2024-03-05 09:39 | MHC.OFFVISCO ---
Intake Intake Visit Reasons: Anticoagulation Allergies pneumococcal vaccine [PNEUMOCOCCAL VACCINE] Allergy (Intermediate, Verified 03/05/24 09:34) RASH amoxicillin [From Augmentin] Allergy (Unknown, Verified 03/05/24 09:34) Swelling clavulanic acid [From Augmentin] Allergy (Unknown, Verified 03/05/24 09:34) Swelling theophylline Adverse Reaction (Intermediate, Verified 03/05/24 09:34) Loss of Appetite Medication List - Last Reconciled 03/05/24 by Amisha Winter RN albuterol sulfate 90 mcg/actuation 2 puffs PO Q2H PRN amlodipine 5 mg PO DAILY atorvastatin 40 mg PO DAILY carvedilol 6.25 mg PO BID cyanocobalamin (vitamin B-12) 1,000 mcg PO DAILY fluorouracil 5% 1 appl topical DAILY furosemide 60 mg (1.5 x 40 mg) PO DAILY 30 days ipratropium-albuterol 0.5 mg-3 mg(2.5 mg base)/3 mL 3 mL inhalation Q6H 30 days loperamide (Imodium A-D) PO PRN multivitamin (One Daily Multivitamin tablet) 1 tab PO DAILY tamsulosin 0.4 mg PO BID 90 days warfarin See Protocol 6mg X6 days and 4.5mg X1 day orally as directed; Take medication as directed per anticoagulation clinic based on your INR blood test results, per anticoag clinic, dose is still in adjustment phase taking 6 mg X6 days and 4.5mg X1 day. 30 days zolpidem 5 mg PO BEDTIME PRN Nursing Note INR 3.1- out of therapeutic range of 2-3 Medications and supplements reviewed Patient status: pt c.o gi issues/gas issues Medications or supplements: metamucil, instructed to not take with warfarin Diet: same, eating celery, carrots Denies any signs and symptoms of bleeding or clotting or unusual bruising Bleeding, bruising, clotting discussed Nutritional guidance given: eat greens today, no reds for 2 days Dose: 6mg x 6, 4.5mg x 1 F/U INR Date : pt req 3 week f/u Patient verbalizing understanding of instructions given. pt to acs with spouse, pt on cont oxygen Anti-Coag Initial Assessment Social Hx Patient Tobacco Use Status: Former Tobacco user Quit Date: 2015 alcohol intake: current Alcohol intake frequency: 0-2 drinks per day Cardiovascular Hx: HTN, [place] (non stemi) and Arrhythmias (afib) Lung Disease HX: COPD Musculoskeletal Hx: Gout Blood Disorder Hx: Hyperlipidemia GI Hx: Hemorrhoids Hx: Kidney Disease (naren) and Prostate (prostate cancer) Cancer HX: Yes Psych. 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
[2024-03-05 09:40] LABS: ~PT, ~INR - Anti Coag Clinic 3.1 (0.9-1.1)
== END 2024-03-05 10:26 | disposition home or self-care (01) ==
LOC: HO.ACS 09:31
PROVIDERS: PCP Internal Medicine; Visit Provider Internal Medicine
DX: Z79.01 Long term (current) use of anticoagulants (principal)

== ENCOUNTER → 2024-03-05 09:31 | Outpatient (BNVA) | payer MEDICARE, SELFPAY | PROVIDERS: PCP Internal Medicine; Visit Provider Internal Medicine | DX: I48.0 Paroxysmal atrial fibrillation (principal); Z51.81 Encounter for therapeutic drug level monitoring; Z79.01 Long term (current) use of anticoagulants | CPT/HCPCS: 85610; 99211 ==

== ENCOUNTER 2024-03-26 09:28 | Outpatient (AMB) | payer MEDICARE, SELFPAY ==
[2024-03-26 09:46] LABS: Prothrombin Time Whole Bld POC 31.7 sec (11.1-13.5); ~PT, ~INR - Anti Coag Clinic 2.6 (0.9-1.1)
--- NOTE | 2024-03-26 09:49 | MHC.OFFVISCO ---
Intake Intake Visit Reasons: Anticoagulation Allergies pneumococcal vaccine [PNEUMOCOCCAL VACCINE] Allergy (Intermediate, Verified 03/26/24 09:39) RASH amoxicillin [From Augmentin] Allergy (Unknown, Verified 03/26/24 09:39) Swelling clavulanic acid [From Augmentin] Allergy (Unknown, Verified 03/26/24 09:39) Swelling theophylline Adverse Reaction (Intermediate, Verified 03/26/24 09:39) Loss of Appetite Medication List - Last Reconciled 03/26/24 by Imani Lee RN albuterol sulfate 90 mcg/actuation 2 puffs PO Q2H PRN amlodipine 5 mg PO DAILY atorvastatin 40 mg PO DAILY carvedilol 6.25 mg PO BID cyanocobalamin (vitamin B-12) 1,000 mcg PO DAILY fluorouracil 5% 1 appl topical DAILY furosemide 60 mg (1.5 x 40 mg) PO DAILY 30 days ipratropium-albuterol 0.5 mg-3 mg(2.5 mg base)/3 mL 3 mL inhalation Q6H 30 days loperamide (Imodium A-D) PO PRN multivitamin (One Daily Multivitamin tablet) 1 tab PO DAILY tamsulosin 0.4 mg PO BID 90 days warfarin See Protocol 6mg X6 days and 4.5mg X1 day orally as directed; Take medication as directed per anticoagulation clinic based on your INR blood test results, per anticoag clinic, dose is still in adjustment phase taking 6 mg X6 days and 4.5mg X1 day. 30 days zolpidem 5 mg PO BEDTIME PRN Nursing Note Amb to ACS using cane, accomp by Medications and supplements reviewed No changes in health, diet, medications, or supplements, Denies any signs and symptoms of bleeding, bruising, clotting. INR 2.6 in therapeutic range Dose: continue 4.5mg on Fridays and 6mg all other days Nutritional guidance given: balance greens and reds in diet, be consistent and watch for summer changes, less cooked greens may increase INR, cool reds will raise INR F/U INR: 3 weeks Patient and verbalizes understanding of instructions given Anti-Coag Initial Assessment Social Hx Patient Tobacco Use Status: Former Tobacco user alcohol intake: current Alcohol intake frequency: 0-2 drinks per day Cardiovascular Hx: HTN, [place] (non stemi) and Arrhythmias (afib) Lung Disease HX: COPD Musculoskeletal Hx: Gout Blood Disorder Hx: Hyperlipidemia GI Hx: Hemorrhoids Hx: Kidney Disease (naren) and Prostate (prostate cancer) Cancer HX: Yes Psych. 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
== END 2024-03-26 09:53 | disposition home or self-care (01) ==
LOC: HO.ACS 09:28
PROVIDERS: PCP Internal Medicine; Visit Provider Internal Medicine
DX: Z79.01 Long term (current) use of anticoagulants (principal)

== ENCOUNTER → 2024-03-26 09:28 | Outpatient (BNVA) | payer MEDICARE, SELFPAY | PROVIDERS: PCP Internal Medicine; Visit Provider Internal Medicine | DX: I48.0 Paroxysmal atrial fibrillation (principal); Z79.01 Long term (current) use of anticoagulants; Z51.81 Encounter for therapeutic drug level monitoring | CPT/HCPCS: 85610; 99211 ==

== ENCOUNTER 2024-04-10 09:20 | Outpatient (AMB) | payer MEDICARE, SELFPAY ==
--- NOTE | 2024-04-10 09:20 | MHC.OFFVIS ---
Intake Visit Reasons: 6M PSA/Testo(set) Intake Note: Patient is Present for Telephone Follow Up Urology Med: Tamsulosin Antibiotic Allergy: Amoxicillin Blood Thinner:Warfarin Aemt Required: No Allergies pneumococcal vaccine [PNEUMOCOCCAL VACCINE] Allergy (Intermediate, Verified 04/10/24 09:23) RASH amoxicillin [From Augmentin] Allergy (Unknown, Verified 04/10/24 09:23) Swelling clavulanic acid [From Augmentin] Allergy (Unknown, Verified 04/10/24 09:23) Swelling theophylline Adverse Reaction (Intermediate, Verified 04/10/24 09:23) Loss of Appetite HPI Comments Details: Kalyan is a pleasant male. He is a patient of Dr. Gamboa. He is seen for the following urologic conditions - prostate cancer - urinary urgency and frequency post radiation (partial cystitis) Telemedicine Evaluation 15 min Consultation [employer] Robbie Video attempted PSA well-controlled Remains on tamsulosin b.i.d. with good effect Recently switched to Coumadin for AFib 6 month follow-up office Did have questions about passing flatus excessively. Suggested he contact his PCP for GI referral. 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 Chahal February 2020 Prostate biopsy for elevated PSA - 16 [place] score 4+4(A); 4+3(B); 3+3(D) Number cores positive 3 Total number of cores 12 % of tissue involved 5% Therapy. GnRH with gold seed markers and radiation with 18 month hormones [facility] completed December 2020 - associated symptoms rectal urgency PSA - 01/25 <0.1, 07/27 <0.1, 10/28 <0.1 T 2, 01/26 <0.1, 05/28 <0.1, 09/27 <0.1, 02/26 T 172, 06/29 <0.1, 10/30 <0.1, 03/30 <0.1 T281 [facility] Medical History High cholesterol Gout Hypertension Essential hypertension Prostate cancer Pulmonary nodules COPD (chronic obstructive pulmonary disease) Surgical History History of spinal surgery Family History Father No problems noted. Mother No problems noted. 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 Current occupational exposures/hazards: No Review of Systems Const All systems reviewed & are unremarkable except as noted in HPI and below Reports no additional complaints Resp Reports no additional complaints GI Reports no additional complaints Reports as per HPI Musc Reports no additional complaints Physical Exam Telemedicine evaluation Appropriate responses Regular breathing rate and rhythm HEENT Head: Yes normal to inspection Ears: hearing grossly normal bilaterally Eyes General: appearance normal, both eyes and all related structures Neck Neck: Yes normal visual inspection Chest Chest palpation & inspection: normal inspection of the chest Resp Effort & Inspection: normal respiratory effort and able to speak in complete sentences Telehealth Telehealth Telehealth Platform: [employer] Location of provider rendering services: practice address Location of patient: address on file Patient Identification confirmed using: Name, : Yes Telehealth method: voice only Patient verbally consented to treatment: Yes Patient verbally consented to billing insurance company: Yes Patient informed of any privacy concerns related to visit: Yes Minutes spent on Phone/Video with Pt.: 15 Assessment & Plan Assessment & Plan (1) Urinary urgency: Code(s): R39.15 - Urgency of urination Category: Medical (2) Weak urinary stream: Code(s): R39.12 - Poor urinary stream Category: Medical Plan Six-month follow-up PSA office Orders: Orders Prostate Specific Antigen 6 Months C61 - Malignant neoplasm of prostate Medications: Refilled tamsulosin 0.4 mg PO BID 90 days 180 caps 1RF R39.15 - Urgency of urination Patient Instructions: Imaging studies, laboratory and physical exam results were discussed and reviewed in detail. No major barriers to patient understanding were identified. An opportunity to ask questions regarding the treatment plan was provided. All questions were answered. The patient expressed understanding and agreement with the above treatment plan. The patient is aware they should contact our office by phone for worsening of their current condition or the appearance of new urologic symptoms. Compliance is encouraged with any medications and followup testing that is ordered. It is a privilege to participate in the urologic care of your patient. If you have any questions or concerns regarding treatment for the above conditions, or other urologic issues, please do not hesitate to contact me. The office telephone contact is [phone]. This note is constructed using voice recognition software. While every effort has been made to ensure accuracy linux server engineer errors may have been included. Yours sincerely, Dr Catarino Gottlieb MD, [facility] - Urology Providers of Expert, Compassionate Care for the Genitourinary System Coding Level of Care Code Tele Est Pt Level 3 (74598) Complex EM visit Add On G2211 Diagnoses Urinary urgency R39.15 Weak urinary stream R39.12
== END 2024-04-10 10:25 | disposition home or self-care (01) ==
LOC: HO.HUSH 09:20
PROVIDERS: PCP Internal Medicine; Visit Provider Urology
DX: R39.15 Urgency of urination (principal); R39.12 Poor urinary stream
CPT/HCPCS: 99442

== ENCOUNTER → 2024-04-10 09:20 | Outpatient (BNVA) | payer MEDICARE, SELFPAY | PROVIDERS: PCP Internal Medicine; Visit Provider Urology ==

== ENCOUNTER 2024-04-16 09:27 | Outpatient (AMB) | payer MEDICARE, SELFPAY ==
[2024-04-16 09:55] LABS: Prothrombin Time Whole Bld POC 29.5 sec (11.1-13.5); ~PT, ~INR - Anti Coag Clinic 2.5 (0.9-1.1)
--- NOTE | 2024-04-16 10:10 | MHC.OFFVISCO ---
Intake Intake Visit Reasons: Anticoagulation Allergies pneumococcal vaccine [PNEUMOCOCCAL VACCINE] Allergy (Intermediate, Verified 04/16/24 09:49) RASH amoxicillin [From Augmentin] Allergy (Unknown, Verified 04/16/24 09:49) Swelling clavulanic acid [From Augmentin] Allergy (Unknown, Verified 04/16/24 09:49) Swelling theophylline Adverse Reaction (Intermediate, Verified 04/16/24 09:49) Loss of Appetite Medication List - Last Reconciled 04/16/24 by Gertrudis Simeon RN albuterol sulfate 90 mcg/actuation 2 puffs PO Q2H PRN amlodipine 5 mg PO DAILY atorvastatin 40 mg PO DAILY carvedilol 6.25 mg PO BID cyanocobalamin (vitamin B-12) 1,000 mcg PO DAILY fluorouracil 5% 1 appl topical DAILY furosemide 60 mg (1.5 x 40 mg) PO DAILY 30 days ipratropium-albuterol 0.5 mg-3 mg(2.5 mg base)/3 mL 3 mL inhalation Q6H 30 days loperamide (Imodium A-D) PO PRN multivitamin (One Daily Multivitamin tablet) 1 tab PO DAILY tamsulosin 0.4 mg PO BID 90 days warfarin See Protocol 6mg X6 days and 4.5mg X1 day orally as directed; Take medication as directed per anticoagulation clinic based on your INR blood test results, per anticoag clinic, dose is still in adjustment phase taking 6 mg X6 days and 4.5mg X1 day. 30 days zolpidem 5 mg PO BEDTIME PRN Nursing Note INR: 2.5 in therapeutic range Medications and supplements reviewed No changes in health, diet, medications, or supplements, Denies any signs and symptoms of bleeding or bruising or clotting. Bleeding, bruising, clotting discussed Nutritional guidance given Dose: 4.5MG X 1 DAY/ 6MG X 6 DAYS F/U INR: 1 MONTH pt and talking about Eliquis and the cost and if affordable would go on it: explained they may qualify for a discount and A Financial Form given for Eliquis to pt for them to fill out and have PCP or Aquatics Specialist to fill out and submit Patient verbalizes understanding of instructions given Anti-Coag Initial Assessment Social Hx Patient Tobacco Use Status: Former Tobacco user alcohol intake: current Alcohol intake frequency: 0-2 drinks per day Cardiovascular Hx: HTN, [place] (non stemi) and Arrhythmias (afib) Lung Disease HX: COPD Musculoskeletal Hx: Gout Blood Disorder Hx: Hyperlipidemia GI Hx: Hemorrhoids Hx: Kidney Disease (naren) and Prostate (prostate cancer) Cancer HX: Yes Psych. 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
== END 2024-04-16 10:15 | disposition home or self-care (01) ==
LOC: HO.ACS 09:27
PROVIDERS: PCP Internal Medicine; Visit Provider Internal Medicine
DX: Z79.01 Long term (current) use of anticoagulants (principal)

== ENCOUNTER → 2024-04-16 09:27 | Outpatient (BNVA) | payer MEDICARE, SELFPAY | PROVIDERS: PCP Internal Medicine; Visit Provider Internal Medicine | DX: I48.0 Paroxysmal atrial fibrillation (principal); Z79.01 Long term (current) use of anticoagulants; Z51.81 Encounter for therapeutic drug level monitoring | CPT/HCPCS: 85610; 99211 ==

== ENCOUNTER 2024-05-07 09:51 | Outpatient (AMB) | payer MEDICARE, SELFPAY ==
--- NOTE | 2024-05-07 10:22 | A.OFFVIS_ITS ---
Vital Signs 05/07/24 10:23 Height 5 ft 7 in BP 120/62 Blood Pressure Location Rt brachial Position Sitting Pulse 93 Pulse Source Pulse Oximeter Pulse Oximetry (%) 92 Oxygen Delivery Method Room Air Intake Visit Reasons: 6 minute walk Intake Note: Patient arrives for 6 minute walk to assess the need for O2. Patient currently uses O2 at 2L as needed for any exertion. Nurse visit only. House Calls Nurse Practitioner Required: No Accompanied by: Spouse Allergies pneumococcal vaccine [PNEUMOCOCCAL VACCINE] Allergy (Intermediate, Verified 04/16/24 09:49) RASH amoxicillin [From Augmentin] Allergy (Unknown, Verified 04/16/24 09:49) Swelling clavulanic acid [From Augmentin] Allergy (Unknown, Verified 04/16/24 09:49) Swelling theophylline Adverse Reaction (Intermediate, Verified 04/16/24 09:49) Loss of Appetite PFSH Medical History High cholesterol Gout Hypertension Essential hypertension Prostate cancer Pulmonary nodules COPD (chronic obstructive pulmonary disease) Surgical History History of spinal surgery Family History Father No problems noted. Mother No problems noted. Social History Housing: House Alcohol intake: current Alcohol intake frequency: 0-2 drinks per day Alcohol type: wine Patient Tobacco Use Status: Former Tobacco user Years Smoked: 60 yrs Second Hand Smoke Exposure: No service: Yes Current occupational status: retired Current occupation: retired- [email or web address] Current occupational exposures/hazards: No Physical Exam Vital Signs: Last Vital Signs Pulse 93 05/07/24 10:23 BP 120/62 05/07/24 10:23 Pulse Ox 92 05/07/24 10:23 Oxygen Delivery Method Room Air 05/07/24 10:23 Office Procedures 6 Minute Walk Time:: 10:10 SPO2 % at rest: 92 Pulse at rest: 93 SPO2 % during excercise: 86 Pulse during excercise: 120 SPO2 % after excercise: 92 Pulse after excercise: 102 Distance in yards walked: 100 Marisol Score: 6 Performance Observations:: Patient walked on level ground using a cane for balance. Patient walked without O2 for approx 30 yards and got increasingly short of breath and O2 saturation dropped to 86% with pulse of 120. Stopped to rest O2 applied at 2L with saturation return to 93% pulse of 116. Continued /completed remainder of walk with O2at 2L and maintained O2 saturation 91-93% with pulse rate of 116-120. Patient reports he uses his O2 with any exertion as he gets tired and short of breath. Patient did require and benefit supplemental oxygen. 52368 - 6 Minute Walk Assessment & Plan Assessment & Plan (1) COPD (chronic obstructive pulmonary disease): Code(s): J44.9 - Chronic obstructive pulmonary disease, unspecified Category: Medical Plan 6 minute walk test Orders: Orders AMB 6 minute walk 05/07/24 J44.9 - Chronic obstructive pulmonary disease, unsp ecified Coding Level of Care Code Established Pt Est Pt Level 1 (35924) Patient Type Established Diagnoses COPD (chronic obstructive pulmonary disease) J44.9 CPT Codes Coding ([id number]) Comment Nurse visit only.
[2024-05-07 10:23] VITALS: BP 120/62; PULSE 93; O2SAT 92
[2024-05-07 10:38] VITALS: PULSE 93; O2SAT 92
== END 2024-05-07 10:19 | disposition home or self-care (01) ==
PROVIDERS: PCP Internal Medicine; Visit Provider Internal Medicine Pulmonary Disease
DX: J44.9 Chronic obstructive pulmonary disease, unspecified (principal)

== ENCOUNTER → 2024-05-07 09:51 | Outpatient (BNVA) | payer MEDICARE, SELFPAY | PROVIDERS: PCP Internal Medicine; Visit Provider Internal Medicine Pulmonary Disease | DX: J44.9 Chronic obstructive pulmonary disease, unspecified (principal) | CPT/HCPCS: 94618; 99211 ==

== ENCOUNTER 2024-05-14 09:26 | Outpatient (AMB) | payer MEDICARE, SELFPAY ==
[2024-05-14 09:39] LABS: Prothrombin Time Whole Bld POC 46.7 sec (11.1-13.5); ~PT, ~INR - Anti Coag Clinic 3.9 (0.9-1.1)
--- NOTE | 2024-05-14 09:51 | MHC.OFFVISCO ---
Intake Intake Visit Reasons: Anticoagulation Allergies pneumococcal vaccine [PNEUMOCOCCAL VACCINE] Allergy (Intermediate, Verified 05/14/24 09:33) RASH amoxicillin [From Augmentin] Allergy (Unknown, Verified 05/14/24 09:33) Swelling clavulanic acid [From Augmentin] Allergy (Unknown, Verified 05/14/24 09:33) Swelling theophylline Adverse Reaction (Intermediate, Verified 05/14/24 09:33) Loss of Appetite Medication List - Last Reconciled 05/14/24 by Imani Mckeon RN albuterol sulfate 90 mcg/actuation 2 puffs PO Q2H PRN amlodipine 5 mg PO DAILY atorvastatin 40 mg PO DAILY carvedilol 6.25 mg PO BID cyanocobalamin (vitamin B-12) 1,000 mcg PO DAILY fluorouracil 5% 1 appl topical DAILY furosemide 60 mg (1.5 x 40 mg) PO DAILY 30 days ipratropium-albuterol 0.5 mg-3 mg(2.5 mg base)/3 mL 3 mL inhalation Q6H 30 days loperamide (Imodium A-D) PO PRN multivitamin (One Daily Multivitamin tablet) 1 tab PO DAILY tamsulosin 0.4 mg PO BID 90 days warfarin See Protocol 6mg X6 days and 4.5mg X1 day orally as directed; Take medication as directed per anticoagulation clinic based on your INR blood test results, per anticoag clinic, dose is still in adjustment phase taking 6 mg X6 days and 4.5mg X1 day. 30 days zolpidem 5 mg PO BEDTIME PRN Nursing Note Pt to ACS accompanied by with use of a cane. INR 3.9?out of therapeutic range 2-3 Medications and supplements reviewed Patient status: feels well but pulled a muscle in right side chest doing gardening and has taken more tylenol than typical for him. Medications or supplements: no changes Diet: pt states he has been eating cherries and tomatoes from his garden and those foods cab raise the INR Denies any signs and symptoms of bleeding or clotting or unusual bruising Bleeding, bruising, clotting discussed Nutritional guidance given: to have a serving of greens today and tomorrow and hold foods that raise the INR. Food list reviewed with pt and . Dose: pt took today's dose already, tomorrow usual dose of 4.5mg then another 4.5mg the next day which is decreased from 6mg, then to resume usual dose of 6mg X 6 days and 4.5mg X 1 day F/U INR Date : 2 weeks?? Patient verbalizing understanding of instructions given. Anti-Coag Initial Assessment Social Hx Patient Tobacco Use Status: Former Tobacco user alcohol intake: current Alcohol intake frequency: 0-2 drinks per day Cardiovascular Hx: HTN, PA (non stemi) and Arrhythmias (afib) Lung Disease HX: COPD Musculoskeletal Hx: Gout Blood Disorder Hx: Hyperlipidemia GI Hx: Hemorrhoids Hx: Kidney Disease (naren) and Prostate (prostate cancer) Cancer HX: Yes Psych. Illness/Depression: No Coding Level of Care Code Est Patient Level 1 Diagnoses Current use of anticoagulant therapy Z79.01 Assessment & Plan Assessment & Plan (1) Current use of anticoagulant therapy: Code(s): Z79.01 - cardiac nurse specialist (current) use of anticoagulants Category: Medical
== END 2024-05-14 10:00 | disposition home or self-care (01) ==
LOC: HO.ACS 09:26
PROVIDERS: PCP Internal Medicine; Visit Provider Internal Medicine
DX: Z79.01 Long term (current) use of anticoagulants (principal)

== ENCOUNTER → 2024-05-14 09:26 | Outpatient (BNVA) | payer MEDICARE, SELFPAY | PROVIDERS: PCP Internal Medicine; Visit Provider Internal Medicine | DX: I48.0 Paroxysmal atrial fibrillation (principal) | CPT/HCPCS: 85610; 99211 ==

== ENCOUNTER → 2024-05-28 09:36 | Outpatient (BNVA) | payer MEDICARE, SELFPAY | PROVIDERS: PCP Internal Medicine; Visit Provider Internal Medicine | DX: I48.0 Paroxysmal atrial fibrillation (principal); Z79.01 Long term (current) use of anticoagulants; Z51.81 Encounter for therapeutic drug level monitoring | CPT/HCPCS: 85610; 99211 ==

== ENCOUNTER 2024-06-10 09:24 | Outpatient (AMB) | payer MEDICARE, SELFPAY ==
[2024-06-10 09:29] VITALS: BP 130/70; PULSE 99; BMI 26.6
--- NOTE | 2024-06-10 09:29 | A.OFFVIS_ITS ---
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 Required: No Accompanied by: Spouse Allergies pneumococcal vaccine [PNEUMOCOCCAL VACCINE] Allergy (Intermediate, Verified 05/28/24 09:45) RASH amoxicillin [From Augmentin] Allergy (Unknown, Verified 05/28/24 09:45) Swelling clavulanic acid [From Augmentin] Allergy (Unknown, Verified 05/28/24 09:45) Swelling theophylline Adverse Reaction (Intermediate, Verified 05/28/24 09:45) Loss of Appetite Medication List - Last Reconciled 06/10/24 by Minor Gautam MD albuterol sulfate 90 mcg/actuation 2 puffs PO Q2H PRN atorvastatin 40 mg PO DAILY carvedilol 6.25 mg PO BID cyanocobalamin (vitamin B-12) 1,000 mcg PO DAILY fluorouracil 5% 1 appl topical DAILY furosemide 60 mg (1.5 x 40 mg) PO DAILY 30 days ipratropium-albuterol 0.5 mg-3 mg(2.5 mg base)/3 mL 3 mL inhalation Q6H 30 days loperamide (Imodium A-D) PO PRN multivitamin (One Daily Multivitamin tablet) 1 tab PO DAILY tamsulosin 0.4 mg PO BID 90 days warfarin See Protocol 6mg X6 days and 4.5mg X1 day orally as directed; Take med ication as directed per anticoagulation clinic based on your INR blood test results, per anticoag clinic, dose is still in adjustment phase taking 6 mg X6 days and 4.5mg X1 day. 30 days zolpidem 5 mg PO BEDTIME PRN HPI Comments Details: 83-year-old gentleman with background history of hypertension, COPD, dyspnea on exertion and prostate cancer. His blood pressure was previously well controlled on amlodipine and hydrochlorothiazide. Early April 2021 he had a bad headache and went to the emergency department and was noticed to have significantly elevated blood pressures. He was admitted and started on medications. He said after addition of lisinopril and amlodipine his blood pressure dropped too low and he developed kidney injury. After that all his medication was stopped and he was sent home. He is denying any more headaches. He has no chest discomfort shortness of breath. He had mildly abnormal troponin levels in the setting of high blood pressures which was thought to be type 2 NV. subsequent to that he was referred for a nuclear perfusion study which was normal. On last visit we added amlodipine back because of blood pressure was elevated. It appears his amlodipine was increased and he was up to 10 mg of amlodipine. He said recently Dr. Pepper decreased it to 5 mg. In the office his blood pressure is 150s. He is denying any significant symptoms other than shortness of breath which has been a chronic issue for him due to his COPD. 08/21/23: Here for f/u. He has been on supplemental oxygen x 3 L. He has been SOB with activity due to COPD. He is saying his oxygen saturations are 80% without oxygen. He also has irregular heart rhythm today. He has no palpitations. 02/05/24: He is here for follow-up. Blood pressure is well controlled. His main complaint is fatigue and shortness of breath with activity. He previously was noticed to be hypoxic without supplemental oxygen. He is using oxygen off and on. He is saying when he wakes up his oxygen saturations are in 80s. 06/10/2024: He is here for follow-up. He has productive cough and is wheezing. Denying any chest pain. No palpitations. Continues to be in atrial fibrillation with rate control. [facility] Medical History High cholesterol Gout Hypertension Essential hypertension Prostate cancer Pulmonary nodules COPD (chronic obstructive pulmonary disease) Surgical History History of spinal surgery Family History Father No problems noted. Mother No problems noted. 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 Current occupational exposures/hazards: No Review of Systems Const Denies chills, Denies fatigue, Denies fever(s), Denies frequent falls, Denies weakness, Denies weight gain and Denies weight loss ENT Denies dizziness Card Denies chest pain, Denies leg edema, Denies lightheadedness, Denies palpitations, Reports dyspnea and Reports dyspnea on exertion Resp Denies cough, Reports dyspnea and Reports dyspnea on exertion GI Denies hematochezia Musc Denies abnormal gait, Denies muscle weakness, Denies numbness, Denies radiating pain into limb and Denies tingling Neuro Denies abnormal gait, Denies dizziness, Denies frequent falls, Denies numbness, Denies tingling and Denies weakness Endo Denies fatigue and Denies palpitations Physical Exam Vital Signs: Last Vital Signs Pulse 99 06/10/24 09:29 BP 130/70 06/10/24 09:29 BMI result Body Mass Index 26.6 GENERAL APPEARANCE: in no acute distress. on supplemental oxygen. NECK/THYROID: no carotid bruit, no jugular venous distention. SKIN: no suspicious lesions, warm and dry. HEART: no murmurs, irregular rate and rhythm, S1, S2 normal. LUNGS: Bilateral expiratory wheezes. ABDOMEN: normal, bowel sounds present, soft, nontender, nondistended. EXTREMITIES: no clubbing, cyanosis, or edema. PERIPHERAL PULSES: equal. NEUROLOGIC: nonfocal, alert and oriented. PSYCH: mood/affect full range. Office Procedures EKG Details: Atrial fibrillation 99 beats per minute, rightward axis, anteroseptal infarct, QTC 446 milliseconds. [id number], Complete Assessment & Plan Assessment & Plan (1) CABALLERO (dyspnea on exertion): Code(s): R06.09 - Other forms of dyspnea Category: Medical (2) Bronchitis: Code(s): J40 - Bronchitis, not specified as acute or chronic Category: Medical (3) Permanent atrial fibrillation: Code(s): I48.21 - Permanent atrial fibrillation Category: Medical (4) PAF (paroxysmal atrial fibrillation): Code(s): I48.0 - Paroxysmal atrial fibrillation Category: Medical (5) Supplemental oxygen dependent: Code(s): Z99.81 - Dependence on supplemental oxygen Category: Medical Plan Pleasant 83 year gentleman who is here for follow-up. He has background history of hypertension, COPD and prostate cancer. He was diagnosed with new onset atrial fibrillation and was started on Eliquis. His heart rates have been reasonably controlled. Clinically not in heart failure. He has productive cough and has wheezing on examination. I think he has acute bronchitis. Starting him on doxycycline 100 mg twice a day I have advised him to take it for 5 days. He will see us back in few months. Thank you for allowing me to participate in the care of your patient. Please feel free to contact me if you have any questions. Medications: New doxycycline hyclate 100 mg PO BID 10 tabs 0RF J40 - Bronchitis, not specified as acute or chronic Coding Level of Care Code Est Pt Level 4 (25415) Diagnoses CABALLERO (dyspnea on exertion) R06.09 Bronchitis J40 Permanent atrial fibrillation I48.21 PAF (paroxysmal atrial fibrillation) I48.0 Supplemental oxygen dependent Z99.81 CPT Codes EKG - CPT: 35827-[id number], Complete ([id number])
== END 2024-06-10 10:22 | disposition home or self-care (01) ==
PROVIDERS: PCP Internal Medicine; Visit Provider Internal Medicine Cardiovascular Disease
DX: R06.09 Other forms of dyspnea (principal); J40 Bronchitis, not specified as acute or chronic; I48.21 Permanent atrial fibrillation; I48.0 Paroxysmal atrial fibrillation; Z99.81 Dependence on supplemental oxygen
CPT/HCPCS: 93010; 99214

== ENCOUNTER → 2024-06-10 09:24 | Outpatient (BNVA) | payer MEDICARE, SELFPAY | PROVIDERS: PCP Internal Medicine; Visit Provider Internal Medicine Cardiovascular Disease | DX: I48.21 Permanent atrial fibrillation (principal); I48.0 Paroxysmal atrial fibrillation; R06.09 Other forms of dyspnea; J40 Bronchitis, not specified as acute or chronic; Z99.81 Dependence on supplemental oxygen | CPT/HCPCS: 93005; 99212 ==

== ENCOUNTER 2024-06-25 09:33 | Outpatient (AMB) | payer MEDICARE, SELFPAY ==
--- NOTE | 2024-06-25 09:48 | MHC.OFFVISCO ---
Intake Intake Visit Reasons: Anticoagulation Allergies pneumococcal vaccine [PNEUMOCOCCAL VACCINE] Allergy (Intermediate, Verified 06/25/24 09:36) RASH amoxicillin [From Augmentin] Allergy (Unknown, Verified 06/25/24 09:36) Swelling clavulanic acid [From Augmentin] Allergy (Unknown, Verified 06/25/24 09:36) Swelling theophylline Adverse Reaction (Intermediate, Verified 06/25/24 09:36) Loss of Appetite Nursing Note Pt to ACS with use of cane and portable O2 tank but pt not wearing nasal cannula. States he brings the O2 with him everywhere he goes just in case. accompanying pt. INR 3.2?out of therapeutic range of 2-3 Medications and supplements reviewed Patient status: feels better; had a cold 2 weeks ago. Pt's showed script of med-Doxycycline. Pt completed course on 06/15/24. Medications or supplements: no changes other than above mentioned Diet: usual diet for pt Denies any signs and symptoms of bleeding or clotting or unusual bruising Bleeding, bruising, clotting discussed Nutritional guidance given: to increase greens, pt states he likes broccoli Dose: resume usual dose of 6mg X 6 days and 4.5mg X 1 day F/U INR Date : 2 weeks?? Patient and verbalizing understanding of instructions given. Anti-Coag Initial Assessment Social Hx Patient Tobacco Use Status: Former Tobacco user alcohol intake: current Alcohol intake frequency: 0-2 drinks per day Cardiovascular Hx: HTN, [place] (non stemi) and Arrhythmias (afib) Lung Disease HX: COPD Musculoskeletal Hx: Gout Blood Disorder Hx: Hyperlipidemia GI Hx: Hemorrhoids Hx: Kidney Disease (naren) and Prostate (prostate cancer) Cancer HX: Yes Psych. Illness/Depression: No Coding Level of Care Code Est Patient Level 1 Diagnoses Current use of anticoagulant therapy Z79.01 Results AMB INR Fingerstick AMB INR Fingerstick 3.2 Last Edit by Imani Mckeon RN on 06/25/24 09:46 interface delay Assessment & Plan Assessment & Plan (1) Current use of anticoagulant therapy: Code(s): Z79.01 - longterm (current) use of anticoagulants Category: Medical
[2024-06-25 09:50] LABS: Prothrombin Time Whole Bld POC 38.6 sec (11.1-13.5); ~PT, ~INR - Anti Coag Clinic 3.2 (0.9-1.1)
== END 2024-06-25 09:54 | disposition home or self-care (01) ==
LOC: HO.ACS 09:33
PROVIDERS: PCP Internal Medicine; Visit Provider Internal Medicine
DX: Z79.01 Long term (current) use of anticoagulants (principal)

== ENCOUNTER → 2024-06-25 09:33 | Outpatient (BNVA) | payer MEDICARE, SELFPAY | PROVIDERS: PCP Internal Medicine; Visit Provider Internal Medicine | DX: I48.0 Paroxysmal atrial fibrillation (principal); Z79.01 Long term (current) use of anticoagulants; Z51.81 Encounter for therapeutic drug level monitoring | CPT/HCPCS: 85610; 99211 ==

== ENCOUNTER 2024-06-30 10:23 | Outpatient (AMB) | payer MEDICARE, SELFPAY ==
--- NOTE | 2024-06-30 10:25 | MHC.OFFVIS ---
Vital Signs 06/30/24 10:35 Height 5 ft 7 in Weight 171 lb BMI 26.8 BP 132/77 Blood Pressure Location Rt brachial Position Sitting Pulse 85 Pulse Source Doppler Pulse Oximetry (%) 93 Oxygen Delivery Method Room Air Intake Visit Reasons: COPD Allergies pneumococcal vaccine [PNEUMOCOCCAL VACCINE] Allergy (Intermediate, Verified 06/25/24 09:36) RASH amoxicillin [From Augmentin] Allergy (Unknown, Verified 06/25/24 09:36) Swelling clavulanic acid [From Augmentin] Allergy (Unknown, Verified 06/25/24 09:36) Swelling theophylline Adverse Reaction (Intermediate, Verified 06/25/24 09:36) Loss of Appetite HPI HPI COPD: Details: 83-year-old gentleman, greater than 50 pack-year smoker, quit 2018 followed for moderate to severe COPD supplementary oxygen at 2 L dependent and dyspnea on exertion with suboptimal compliance with oxygen therapy.? He continues on DuoNebs with worsening control of his symptoms. He denies any recent exacerbations. He is interested in retrying theophylline and Anoro. [facility] Medical History High cholesterol Gout Hypertension Essential hypertension Prostate cancer Pulmonary nodules COPD (chronic obstructive pulmonary disease) Surgical History History of spinal surgery Family History Father No problems noted. Mother No problems noted. 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 Current occupational exposures/hazards: No Review of Systems Const Denies daytime sleepiness, Denies excessive sweating, Denies fatigue, Denies fever(s), Denies lethargy, Denies malaise, Denies night sweats, Denies snoring and Denies weight loss Eyes Denies blurry vision and Denies itchy eyes ENT Denies nasal congestion, Denies post nasal drip, Denies sinus pain, Denies sinus pressure and Denies other ( Thrush) Card Denies chest pain, Denies pedal edema, Denies dyspnea, Reports dyspnea on exertion, Denies orthopnea and Denies paroxysmal nocturnal dyspnea Resp Denies cough, Denies hemoptysis, Denies excessive phlegm production, Denies dyspnea, Reports dyspnea on exertion, Denies snoring and Denies wheezing GI Denies abdominal pain and Denies heartburn Musc Denies myalgias, Denies arthralgias and Denies joint swelling Skin/Breast Denies rash Neuro Denies memory loss and Denies seizure-like activity Psych Denies abnormal sleep pattern, Denies anxiety and Denies memory loss Endo Denies excessive sweating, Denies fatigue and Denies heat intolerance Alexander/Lymph Denies easy bruising Aller/Immun Denies itchy eyes, Denies seasonal rhinorrhea and Denies wheezing Physical Exam Vital Signs: Last Vital Signs Pulse 85 06/30/24 10:35 BP 132/77 06/30/24 10:35 Pulse Ox 93 06/30/24 10:35 Oxygen Delivery Method Room Air 06/30/24 10:35 BMI result Body Mass Index 26.8 Const General: no acute distress and alert Nutritional Appearance: not obese Orientation/consciousness: Other orientation findings ( oriented) HEENT Head: Yes atraumatic Eyes General: appearance normal, both eyes and all related structures Sclerae: sclerae normal EOM: EOMs intact bilaterally Neck Neck: Yes supple Lymphatic: no lymphadenopathy noted Resp Effort & Inspection: normal respiratory effort and no use of accessory muscles Auscultation: clear to auscultation bilaterally Cardio Rate: regular rate Rhythm: regular rhythm Heart sounds: no gallops, no murmurs and no rubs Skin General skin exam: other ( warm) Extrem General: No clubbing, No cyanosis and No edema Assessment & Plan Assessment & Plan (1) COPD (chronic obstructive pulmonary disease): Code(s): J44.9 - Chronic obstructive pulmonary disease, unspecified Category: Medical Plan: Suboptimal control on duo nebs. Patient is interested in trying theophylline/Anoro. Ordered. Continue albuterol MDI. (2) Supplemental oxygen dependent: Code(s): Z99.81 - Dependence on supplemental oxygen Category: Medical Plan: Suboptimal compliance with supplemental oxygen with exertion. Continue supplemental oxygen to maintain O2 saturation of 88-92%. (3) CABALLERO (dyspnea on exertion): Code(s): R06.09 - Other forms of dyspnea Category: Medical Plan: Multifactorial with contribution from underlying pulmonary and cardiac etiologies. (4) Orthopnea: Code(s): R06.01 - Orthopnea Category: Medical Plan: Improved control Lasix 60 mg daily. Continue current regimen. Medications: New umeclidinium-vilanterol 62.5-25 mcg/actuation (Anoro Ellipta) 1 inh inhalation DAILY 1 ea 6RF theophylline ER 400 mg PO DAILY 30 tabs 6RF Coding Level of Care Code Est Pt Level 4 (55625) Diagnoses COPD (chronic obstructive pulmonary disease) J44.9 Supplemental oxygen dependent Z99.81 CABALLERO (dyspnea on exertion) R06.09 Orthopnea R06.01
[2024-06-30 10:35] VITALS: BP 132/77; PULSE 85; O2SAT 93; BMI 26.8
== END 2024-06-30 10:57 | disposition home or self-care (01) ==
PROVIDERS: PCP Internal Medicine; Visit Provider Internal Medicine Pulmonary Disease
DX: J44.9 Chronic obstructive pulmonary disease, unspecified (principal); Z99.81 Dependence on supplemental oxygen; R06.09 Other forms of dyspnea; R06.01 Orthopnea
CPT/HCPCS: 99214

== ENCOUNTER → 2024-06-30 10:23 | Outpatient (BNVA) | payer MEDICARE, SELFPAY | PROVIDERS: PCP Internal Medicine; Visit Provider Internal Medicine Pulmonary Disease | DX: J44.9 Chronic obstructive pulmonary disease, unspecified (principal); R06.09 Other forms of dyspnea; R06.01 Orthopnea; Z99.81 Dependence on supplemental oxygen | CPT/HCPCS: 99212 ==

== ENCOUNTER 2024-07-09 09:29 | Outpatient (AMB) | payer MEDICARE, SELFPAY ==
[2024-07-09 09:49] LABS: Prothrombin Time Whole Bld POC 27.5 sec (11.1-13.5); ~PT, ~INR - Anti Coag Clinic 2.3 (0.9-1.1)
--- NOTE | 2024-07-09 10:01 | MHC.OFFVISCO ---
Intake Intake Visit Reasons: Anticoagulation Allergies pneumococcal vaccine [PNEUMOCOCCAL VACCINE] Allergy (Intermediate, Verified 07/09/24 09:36) RASH amoxicillin [From Augmentin] Allergy (Unknown, Verified 07/09/24 09:36) Swelling clavulanic acid [From Augmentin] Allergy (Unknown, Verified 07/09/24 09:36) Swelling theophylline Adverse Reaction (Intermediate, Verified 07/09/24 09:36) Loss of Appetite Medication List - Last Reconciled 07/09/24 by Gertrudis Simeon RN albuterol sulfate 90 mcg/actuation 2 puffs PO Q2H PRN atorvastatin 40 mg PO DAILY [id number] 50-300-40 mg caps PO carvedilol 6.25 mg PO BID cyanocobalamin (vitamin B-12) 1,000 mcg PO DAILY doxycycline hyclate 100 mg PO BID fluorouracil 5% 1 appl topical DAILY furosemide 60 mg (1.5 x 40 mg) PO DAILY 30 days ipratropium-albuterol 0.5 mg-3 mg(2.5 mg base)/3 mL 3 mL inhalation Q6H 30 days loperamide (Imodium A-D) PO PRN multivitamin (One Daily Multivitamin tablet) 1 tab PO DAILY tamsulosin 0.4 mg PO BID 90 days theophylline ER 400 mg PO DAILY umeclidinium-vilanterol 62.5-25 mcg/actuation (Anoro Ellipta) 1 inh inhalation DAILY warfarin See Protocol 6mg X6 days and 4.5mg X1 day orally as directed; Take medication as directed per anticoagulation clinic based on your INR blood test results, per anticoag clinic, dose is still in adjustment phase taking 6 mg X6 days and 4.5mg X1 day. 30 days zolpidem 5 mg PO BEDTIME PRN Nursing Note INR: 2.3 in therapeutic range Medications and supplements reviewed HAD COVID AND FLU VACCINES 1 WEEK LATER C/O OF HEADACHES - SAW MD - RX BUTABITAL/ACET/CAFFEINE 5 TABS ONLY - MAY OR MAY NOT RAISE THE INR FRONTAL LOBE LANDERS STATES WERE SO EXTREME THAT HE SAW MD- EXPLAINED THAT IF WORSE IN ANY WAY TO GO TO ER LIEK STROKE LIKE SYPTOMS (WEAKNESS OR CHANGE IN VISION OR SPEECH,) Denies any signs and symptoms of bleeding or bruising or clotting. Bleeding, bruising, clotting discussed Nutritional guidance given - KEEP EATING A MIX OF FRUITS AND VEGETABLES Dose: KEEP SAME FOR NOW 4.5MG X 1 DAY/ 6MG X 6 DAYS F/U INR: 2 WEEKS DUE TO HEADACHES AND VACCINES Patient verbalizes understanding of instructions given Anti-Coag Initial Assessment Social Hx Patient Tobacco Use Status: Former Tobacco user alcohol intake: current Alcohol intake frequency: 0-2 drinks per day Cardiovascular Hx: HTN, [place] (non stemi) and Arrhythmias (afib) Lung Disease HX: COPD Musculoskeletal Hx: Gout Blood Disorder Hx: Hyperlipidemia GI Hx: Hemorrhoids Hx: Kidney Disease (naren) and Prostate (prostate cancer) Cancer HX: Yes Psych. Illness/Depression: No Coding Level of Care Code Est Patient Level 1 Diagnoses Current use of anticoagulant therapy Z79.01 Results AMB INR Fingerstick AMB INR Fingerstick 2.3 Last Edit by Gertrudis Simeon RN on 07/09/24 09:55 MANAUL ENTRY Assessment & Plan Assessment & Plan (1) Current use of anticoagulant therapy: Code(s): Z79.01 - intermediate frame tender (current) use of anticoagulants Category: Medical
== END 2024-07-09 10:07 | disposition home or self-care (01) ==
LOC: HO.ACS 09:29
PROVIDERS: PCP Internal Medicine; Visit Provider Internal Medicine
DX: Z79.01 Long term (current) use of anticoagulants (principal)

== ENCOUNTER → 2024-07-09 09:29 | Outpatient (BNVA) | payer MEDICARE, SELFPAY | PROVIDERS: PCP Internal Medicine; Visit Provider Internal Medicine | DX: I48.0 Paroxysmal atrial fibrillation (principal); Z79.01 Long term (current) use of anticoagulants; Z51.81 Encounter for therapeutic drug level monitoring | CPT/HCPCS: 85610; 99211 ==

== ENCOUNTER 2024-07-21 09:34 | Outpatient (AMB) | payer MEDICARE, SELFPAY ==
[2024-07-21 09:39] VITALS: BP 124/67; PULSE 87; O2SAT 94; BMI 27.3
--- NOTE | 2024-07-21 09:39 | A.OFFVIS_ITS ---
Vital Signs 07/21/24 09:39 Height 5 ft 7 in Weight 174 lb 2.643 oz BMI 27.3 BP 124/67 Blood Pressure Location Rt brachial Position Sitting Pulse 87 Pulse Source Doppler Pulse Oximetry (%) 94 Oxygen Delivery Method Nasal Cannula Oxygen Flow Rate 2 Intake Visit Reasons: COPD Allergies pneumococcal vaccine [PNEUMOCOCCAL VACCINE] Allergy (Intermediate, Verified 07/09/24 09:36) RASH amoxicillin [From Augmentin] Allergy (Unknown, Verified 07/09/24 09:36) Swelling clavulanic acid [From Augmentin] Allergy (Unknown, Verified 07/09/24 09:36) Swelling theophylline Adverse Reaction (Intermediate, Verified 07/09/24 09:36) Loss of Appetite HPI HPI COPD: Details: 83-year-old gentleman, greater than 50 pack-year smoker, quit 2018 followed for moderate to severe COPD supplementary oxygen at 2 L dependent and dyspnea on exertion with suboptimal compliance with oxygen therapy.? He continues on DuoNebs, albuterol MDI, and theophylline with reasonable control of his symptoms. He was not able to afford Anoro. His lower extremity edema is well controlled on current dose of Lasix 60 mg daily. [facility] Medical History High cholesterol Gout Hypertension Essential hypertension Prostate cancer Pulmonary nodules COPD (chronic obstructive pulmonary disease) Surgical History History of spinal surgery Family History Father No problems noted. Mother No problems noted. 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 Current occupational exposures/hazards: No Review of Systems Const Denies daytime sleepiness, Denies excessive sweating, Denies fatigue, Denies fever(s), Denies lethargy, Denies malaise, Denies night sweats, Denies snoring and Denies weight loss Eyes Denies blurry vision and Denies itchy eyes ENT Denies nasal congestion, Denies post nasal drip, Denies sinus pain, Denies sinus pressure and Denies other ( Thrush) Card Denies chest pain, Denies pedal edema, Denies dyspnea, Denies orthopnea and Denies paroxysmal nocturnal dyspnea Resp Denies cough, Denies hemoptysis, Denies excessive phlegm production, Denies dyspnea, Denies snoring and Denies wheezing GI Denies abdominal pain and Denies heartburn Musc Denies myalgias, Denies arthralgias and Denies joint swelling Skin/Breast Denies rash Neuro Denies memory loss and Denies seizure-like activity Psych Denies abnormal sleep pattern, Denies anxiety and Denies memory loss Endo Denies excessive sweating, Denies fatigue and Denies heat intolerance Alexander/Lymph Denies easy bruising Aller/Immun Denies itchy eyes, Denies seasonal rhinorrhea and Denies wheezing Physical Exam Vital Signs: Last Vital Signs Pulse 87 07/21/24 09:39 BP 124/67 07/21/24 09:39 Pulse Ox 94 07/21/24 09:39 Oxygen Delivery Method Nasal Cannula 07/21/24 09:39 Oxygen Flow Rate 2 07/21/24 09:39 BMI result Body Mass Index 27.3 Const General: no acute distress and alert Nutritional Appearance: not obese Orientation/consciousness: Other orientation findings ( oriented) HEENT Head: Yes atraumatic Eyes General: appearance normal, both eyes and all related structures Sclerae: sclerae normal EOM: EOMs intact bilaterally Neck Neck: Yes supple Lymphatic: no lymphadenopathy noted Resp Effort & Inspection: normal respiratory effort and no use of accessory muscles Auscultation: clear to auscultation bilaterally Cardio Rate: regular rate Rhythm: regular rhythm Heart sounds: no gallops, no murmurs and no rubs Skin General skin exam: other ( warm) Extrem General: No clubbing, No cyanosis and No edema Assessment & Plan Assessment & Plan (1) COPD (chronic obstructive pulmonary disease): Code(s): J44.9 - Chronic obstructive pulmonary disease, unspecified Category: Medical Plan: Reasonable controlled on duo nebs and theophylline. Continue current regimen. Can not afford Anoro. (2) Supplemental oxygen dependent: Code(s): Z99.81 - Dependence on supplemental oxygen Category: Medical Plan: Continue supplemental oxygen to maintain O2 saturation of 88-92%. (3) Orthopnea: Code(s): R06.01 - Orthopnea Category: Medical Plan: Well controlled on current diuretic dose of Lasix 60 mg daily. Continue current regimen. Coding Level of Care Code Est Pt Level 4 (89478) Complex EM visit Add On G2211 Diagnoses COPD (chronic obstructive pulmonary disease) J44.9 Supplemental oxygen dependent Z99.81 Orthopnea R06.01
== END 2024-07-21 10:12 | disposition home or self-care (01) ==
PROVIDERS: PCP Internal Medicine; Visit Provider Internal Medicine Pulmonary Disease
DX: J44.9 Chronic obstructive pulmonary disease, unspecified (principal); Z99.81 Dependence on supplemental oxygen; R06.01 Orthopnea
CPT/HCPCS: 99214; G2211

== ENCOUNTER → 2024-07-21 09:34 | Outpatient (BNVA) | payer MEDICARE, SELFPAY | PROVIDERS: PCP Internal Medicine; Visit Provider Internal Medicine Pulmonary Disease | DX: J44.9 Chronic obstructive pulmonary disease, unspecified (principal); R06.01 Orthopnea; I48.0 Paroxysmal atrial fibrillation; Z99.81 Dependence on supplemental oxygen; Z79.01 Long term (current) use of anticoagulants; Z51.81 Encounter for therapeutic drug level monitoring | CPT/HCPCS: 85610; 99211; 99212 ==

== ENCOUNTER 2024-07-21 10:39 | Outpatient (AMB) | payer MEDICARE, SELFPAY ==
[2024-07-21 10:49] LABS: Prothrombin Time Whole Bld POC 21.8 sec (11.1-13.5); ~PT, ~INR - Anti Coag Clinic 1.8 (0.9-1.1)
--- NOTE | 2024-07-21 10:57 | MHC.OFFVISCO ---
Intake Intake Visit Reasons: Anticoagulation Allergies pneumococcal vaccine [PNEUMOCOCCAL VACCINE] Allergy (Intermediate, Verified 07/21/24 10:43) RASH amoxicillin [From Augmentin] Allergy (Unknown, Verified 07/21/24 10:43) Swelling clavulanic acid [From Augmentin] Allergy (Unknown, Verified 07/21/24 10:43) Swelling theophylline Adverse Reaction (Intermediate, Verified 07/21/24 10:43) Loss of Appetite Medication List - Last Reconciled 07/21/24 by Imani Mckeon RN albuterol sulfate 90 mcg/actuation 2 puffs PO Q2H PRN atorvastatin 40 mg PO DAILY kopuyhpnni-vnyomjhupwgfo-ztvt 50-300-40 mg caps PO carvedilol 6.25 mg PO BID cyanocobalamin (vitamin B-12) 1,000 mcg PO DAILY doxycycline hyclate 100 mg PO BID fluorouracil 5% 1 appl topical DAILY furosemide 60 mg (1.5 x 40 mg) PO DAILY 30 days ipratropium-albuterol 0.5 mg-3 mg(2.5 mg base)/3 mL 3 mL inhalation Q6H 30 days loperamide (Imodium A-D) PO PRN multivitamin (One Daily Multivitamin tablet) 1 tab PO DAILY tamsulosin 0.4 mg PO BID 90 days theophylline ER 400 mg PO DAILY umeclidinium-vilanterol 62.5-25 mcg/actuation (Anoro Ellipta) 1 inh inhalation DAILY warfarin See Protocol 6mg X6 days and 4.5mg X1 day orally as directed; Take medication as directed per anticoagulation clinic based on your INR blood test results, per anticoag clinic, dose is still in adjustment phase taking 6 mg X6 days and 4.5mg X1 day. 30 days zolpidem 5 mg PO BEDTIME PRN Nursing Note INR 1.8?out of therapeutic range of 2-3 Medications and supplements reviewed Patient status: well Medications or supplements: no changes Diet: usual diet for pt Denies any signs and symptoms of bleeding or clotting or unusual bruising Bleeding, bruising, clotting discussed Nutritional guidance given: no greens X 2 days. Have reds X 2 days. Food list reviewed with pt and his . Dose: continue same dose of 6mg X 6 days and 4.5mg X 1 day F/U INR Date : 2 weeks?? Patient verbalizing understanding of instructions given. Anti-Coag Initial Assessment Social Hx Patient Tobacco Use Status: Former Tobacco user alcohol intake: current Alcohol intake frequency: 0-2 drinks per day Cardiovascular Hx: HTN, [place] (non stemi) and Arrhythmias (afib) Lung Disease HX: COPD Musculoskeletal Hx: Gout Blood Disorder Hx: Hyperlipidemia GI Hx: Hemorrhoids Hx: Kidney Disease (naren) and Prostate (prostate cancer) Cancer HX: Yes Psych. Illness/Depression: No Coding Level of Care Code Est Patient Level 1 Diagnoses Current use of anticoagulant therapy Z79.01 Assessment & Plan Assessment & Plan (1) Current use of anticoagulant therapy: Code(s): Z79.01 - [facility] (current) use of anticoagulants Category: Medical
== END 2024-07-21 11:00 | disposition home or self-care (01) ==
LOC: HO.ACS 10:39
PROVIDERS: PCP Internal Medicine; Visit Provider Internal Medicine
DX: Z79.01 Long term (current) use of anticoagulants (principal)

== ENCOUNTER 2024-08-04 09:51 | Outpatient (AMB) | payer MEDICARE, SELFPAY ==
[2024-08-04 09:59] LABS: Prothrombin Time Whole Bld POC 25.9 sec (11.1-13.5); ~PT, ~INR - Anti Coag Clinic 2.2 (0.9-1.1)
--- NOTE | 2024-08-04 10:03 | MHC.OFFVISCO ---
Intake Intake Visit Reasons: Anticoagulation Allergies pneumococcal vaccine [PNEUMOCOCCAL VACCINE] Allergy (Intermediate, Verified 08/04/24 09:53) RASH amoxicillin [From Augmentin] Allergy (Unknown, Verified 08/04/24 09:53) Swelling clavulanic acid [From Augmentin] Allergy (Unknown, Verified 08/04/24 09:53) Swelling theophylline Adverse Reaction (Intermediate, Verified 08/04/24 09:53) Loss of Appetite Medication List - Last Reconciled 08/04/24 by Imani Mckeon RN albuterol sulfate 90 mcg/actuation 2 puffs PO Q2H PRN atorvastatin 40 mg PO DAILY fpowfirlcq-eirqskwyoqoit-xynj 50-300-40 mg caps PO carvedilol 6.25 mg PO BID cyanocobalamin (vitamin B-12) 1,000 mcg PO DAILY doxycycline hyclate 100 mg PO BID fluorouracil 5% 1 appl topical DAILY furosemide 60 mg (1.5 x 40 mg) PO DAILY 30 days ipratropium-albuterol 0.5 mg-3 mg(2.5 mg base)/3 mL 3 mL inhalation Q6H 30 days loperamide (Imodium A-D) PO PRN multivitamin (One Daily Multivitamin tablet) 1 tab PO DAILY tamsulosin 0.4 mg PO BID 90 days theophylline ER 400 mg PO DAILY umeclidinium-vilanterol 62.5-25 mcg/actuation (Anoro Ellipta) 1 inh inhalation DAILY warfarin See Protocol 6mg X6 days and 4.5mg X1 day orally as directed; Take medication as directed per anticoagulation clinic based on your INR blood test results, per anticoag clinic, dose is still in adjustment phase taking 6 mg X6 days and 4.5mg X1 day. 30 days zolpidem 5 mg PO BEDTIME PRN Nursing Note INR: 2.2 in therapeutic range of 2-3 Medications and supplements reviewed No changes in health, diet, medications, or supplements, Denies any signs and symptoms of bleeding or bruising or clotting. Bleeding, bruising, clotting discussed Nutritional guidance given Dose: 6mg X 6 days and 4.5mg X 1 day F/U INR: 3 weeks Patient verbalizes understanding of instructions given Anti-Coag Initial Assessment Social Hx Patient Tobacco Use Status: Former Tobacco user alcohol intake: current Alcohol intake frequency: 0-2 drinks per day Cardiovascular Hx: HTN, [place] (non stemi) and Arrhythmias (afib) Lung Disease HX: COPD Musculoskeletal Hx: Gout Blood Disorder Hx: Hyperlipidemia GI Hx: Hemorrhoids Hx: Kidney Disease (naren) and Prostate (prostate cancer) Cancer HX: Yes Psych. Illness/Depression: No Coding Level of Care Code Est Patient Level 1 Diagnoses Current use of anticoagulant therapy Z79.01 Assessment & Plan Assessment & Plan (1) Current use of anticoagulant therapy: Code(s): Z79.01 - half-way (current) use of anticoagulants Category: Medical
== END 2024-08-04 10:05 | disposition home or self-care (01) ==
LOC: HO.ACS 09:51
PROVIDERS: PCP Internal Medicine; Visit Provider Internal Medicine
DX: Z79.01 Long term (current) use of anticoagulants (principal)

== ENCOUNTER → 2024-08-04 09:51 | Outpatient (BNVA) | payer MEDICARE, SELFPAY | PROVIDERS: PCP Internal Medicine; Visit Provider Internal Medicine | DX: I48.0 Paroxysmal atrial fibrillation (principal); Z79.01 Long term (current) use of anticoagulants; Z51.81 Encounter for therapeutic drug level monitoring | CPT/HCPCS: 85610; 99211 ==

== ENCOUNTER 2024-08-20 10:35 | Outpatient (REF) | payer MEDICARE, SELFPAY ==
[2024-08-20 12:11] LABS: Alanine Aminotransferase 24 U/L (0-40); Albumin Level 3.9 g/dL (3.5-5.0); Alkaline Phosphatase 94 U/L (39-117); Aspartate Amino Transferase 42 U/L (5-37); Bilirubin Direct 0.3 mg/dL (0.0-0.5); Bilirubin Total 0.7 mg/dL (0.0-1.0); Cholesterol 143 mg/dL (<200); HDL Cholesterol 47 mg/dL (>40); Total Protein 7.3 g/dL (6.5-8.0)
[2024-08-20 12:23] LABS: LDL Cholesterol Calculated 69 mg/dL (<100); Triglycerides 135 mg/dL (<150)
[2024-08-20 12:47] LABS: Reflex LDLD? No
== END 2024-08-20 10:36 | disposition home or self-care (01) ==
LOC: HO.LNP 10:35
PROVIDERS: Visit Provider Internal Medicine
DX: E78.00 Pure hypercholesterolemia, unspecified (principal)
CPT/HCPCS: 80061; 80076

== ENCOUNTER 2024-08-25 09:23 | Outpatient (AMB) | payer MEDICARE, SELFPAY ==
[2024-08-25 09:32] LABS: Prothrombin Time Whole Bld POC 25.6 sec (11.1-13.5); ~PT, ~INR - Anti Coag Clinic 2.1 (0.9-1.1)
--- NOTE | 2024-08-25 09:38 | MHC.OFFVISCO ---
Intake Intake Visit Reasons: Anticoagulation Allergies pneumococcal vaccine [PNEUMOCOCCAL VACCINE] Allergy (Intermediate, Verified 08/25/24 09:28) RASH amoxicillin [From Augmentin] Allergy (Unknown, Verified 08/25/24 09:28) Swelling clavulanic acid [From Augmentin] Allergy (Unknown, Verified 08/25/24 09:28) Swelling theophylline Adverse Reaction (Intermediate, Verified 08/25/24 09:28) Loss of Appetite Medication List - Last Reconciled 08/25/24 by Imani Mckeon RN albuterol sulfate 90 mcg/actuation 2 puffs PO Q2H PRN atorvastatin 40 mg PO DAILY rakhhkcosy-kjufotcnyscxe-hnhi 50-300-40 mg caps PO carvedilol 6.25 mg PO BID cyanocobalamin (vitamin B-12) 1,000 mcg PO DAILY doxycycline hyclate 100 mg PO BID fluorouracil 5% 1 appl topical DAILY furosemide 60 mg (1.5 x 40 mg) PO DAILY 30 days ipratropium-albuterol 0.5 mg-3 mg(2.5 mg base)/3 mL 3 mL inhalation Q6H 30 days loperamide (Imodium A-D) PO PRN multivitamin (One Daily Multivitamin tablet) 1 tab PO DAILY tamsulosin 0.4 mg PO BID 90 days theophylline ER 400 mg PO DAILY umeclidinium-vilanterol 62.5-25 mcg/actuation (Anoro Ellipta) 1 inh inhalation DAILY warfarin See Protocol 6mg X6 days and 4.5mg X1 day orally as directed; Take medication as directed per anticoagulation clinic based on your INR blood test results, per anticoag clinic, dose is still in adjustment phase taking 6 mg X6 days and 4.5mg X1 day. 30 days zolpidem 5 mg PO BEDTIME PRN Nursing Note INR: 2.1 in therapeutic range of 2-3 Medications and supplements reviewed No changes in health, diet, medications, or supplements, Denies any signs and symptoms of bleeding or bruising or clotting. Bleeding, bruising, clotting discussed Nutritional guidance given Dose: 6mg X6 days and 4.5mg X 1 day F/U INR: 3 weeks Patient verbalizes understanding of instructions given Anti-Coag Initial Assessment Social Hx Patient Tobacco Use Status: Former Tobacco user alcohol intake: current Alcohol intake frequency: 0-2 drinks per day Cardiovascular Hx: HTN, [place] (non stemi) and Arrhythmias (afib) Lung Disease HX: COPD Musculoskeletal Hx: Gout Blood Disorder Hx: Hyperlipidemia GI Hx: Hemorrhoids Hx: Kidney Disease (naren) and Prostate (prostate cancer) Cancer HX: Yes Psych. 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
== END 2024-08-25 09:40 | disposition home or self-care (01) ==
LOC: HO.ACS 09:23
PROVIDERS: PCP Internal Medicine; Visit Provider Internal Medicine
DX: Z79.01 Long term (current) use of anticoagulants (principal)

== ENCOUNTER → 2024-08-25 09:23 | Outpatient (BNVA) | payer MEDICARE, SELFPAY | PROVIDERS: PCP Internal Medicine; Visit Provider Internal Medicine | DX: I48.0 Paroxysmal atrial fibrillation (principal); Z79.01 Long term (current) use of anticoagulants; Z51.81 Encounter for therapeutic drug level monitoring | CPT/HCPCS: 85610; 99211 ==

== ENCOUNTER 2024-09-15 09:34 | Outpatient (AMB) | payer MEDICARE, SELFPAY ==
[2024-09-15 09:41] LABS: Prothrombin Time Whole Bld POC 35.5 sec (11.1-13.5)
--- NOTE | 2024-09-15 09:49 | MHC.OFFVISCO ---
Intake Intake Visit Reasons: Anticoagulation Allergies pneumococcal vaccine [PNEUMOCOCCAL VACCINE] Allergy (Intermediate, Verified 09/15/24 09:36) RASH amoxicillin [From Augmentin] Allergy (Unknown, Verified 09/15/24 09:36) Swelling clavulanic acid [From Augmentin] Allergy (Unknown, Verified 09/15/24 09:36) Swelling theophylline Adverse Reaction (Intermediate, Verified 09/15/24 09:36) Loss of Appetite Medication List - Last Reconciled 09/15/24 by Imani Mckeon RN albuterol sulfate 90 mcg/actuation 2 puffs PO Q2H PRN atorvastatin 40 mg PO DAILY xnxrmfwnzj-idoplofgedcty-odym 50-300-40 mg caps PO carvedilol 6.25 mg PO BID cyanocobalamin (vitamin B-12) 1,000 mcg PO DAILY doxycycline hyclate 100 mg PO BID fluorouracil 5% 1 appl topical DAILY furosemide 60 mg (1.5 x 40 mg) PO DAILY 30 days ipratropium-albuterol 0.5 mg-3 mg(2.5 mg base)/3 mL 3 mL inhalation Q6H 30 days loperamide (Imodium A-D) PO PRN multivitamin (One Daily Multivitamin tablet) 1 tab PO DAILY tamsulosin 0.4 mg PO BID 90 days theophylline ER 400 mg PO DAILY umeclidinium-vilanterol 62.5-25 mcg/actuation (Anoro Ellipta) 1 inh inhalation DAILY warfarin See Protocol 6mg X6 days and 4.5mg X1 day orally as directed; Take medication as directed per anticoagulation clinic based on your INR blood test results, per anticoag clinic, dose is still in adjustment phase taking 6 mg X6 days and 4.5mg X1 day. 30 days zolpidem 5 mg PO BEDTIME PRN Nursing Note INR: 3.0 in therapeutic range 2-3 Medications and supplements reviewed No changes in health, diet, medications, or supplements, Denies any signs and symptoms of bleeding or bruising or clotting. Bleeding, bruising, clotting discussed Nutritional guidance given Dose: 6mg X 6 days and 4.5mg X 1 day F/U INR: 3 weeks Patient verbalizes understanding of instructions given Anti-Coag Initial Assessment Social Hx Patient Tobacco Use Status: Former Tobacco user alcohol intake: current Alcohol intake frequency: 0-2 drinks per day Cardiovascular Hx: HTN, [place] (non stemi) and Arrhythmias (afib) Lung Disease HX: COPD Musculoskeletal Hx: Gout Blood Disorder Hx: Hyperlipidemia GI Hx: Hemorrhoids Hx: Kidney Disease (naren) and Prostate (prostate cancer) Cancer HX: Yes Psych. Illness/Depression: No Coding Level of Care Code Est Patient Level 1 Diagnoses Current use of anticoagulant therapy Z79.01 Results AMB INR Fingerstick AMB INR Fingerstick 3.0 Last Edit by Imani Mckeon RN on 09/15/24 09:41 interface delay Assessment & Plan Assessment & Plan (1) Current use of anticoagulant therapy: Code(s): Z79.01 - [facility] (current) use of anticoagulants Category: Medical
== END 2024-09-15 09:50 | disposition home or self-care (01) ==
LOC: HO.ACS 09:34
PROVIDERS: PCP Internal Medicine; Visit Provider Internal Medicine
DX: Z79.01 Long term (current) use of anticoagulants (principal)

== ENCOUNTER → 2024-09-15 09:34 | Outpatient (BNVA) | payer MEDICARE, SELFPAY | PROVIDERS: PCP Internal Medicine; Visit Provider Internal Medicine | DX: I48.0 Paroxysmal atrial fibrillation (principal); Z79.01 Long term (current) use of anticoagulants; Z51.81 Encounter for therapeutic drug level monitoring | CPT/HCPCS: 85610; 99211 ==

== ENCOUNTER 2024-10-06 09:30 | Outpatient (AMB) | payer MEDICARE, SELFPAY ==
[2024-10-06 09:48] LABS: Prothrombin Time Whole Bld POC 23.5 sec (11.1-13.5)
--- NOTE | 2024-10-06 09:56 | MHC.OFFVISCO ---
Intake Intake Visit Reasons: Anticoagulation Allergies pneumococcal vaccine [PNEUMOCOCCAL VACCINE] Allergy (Intermediate, Verified 10/06/24 09:42) RASH amoxicillin [From Augmentin] Allergy (Unknown, Verified 10/06/24 09:42) Swelling clavulanic acid [From Augmentin] Allergy (Unknown, Verified 10/06/24 09:42) Swelling theophylline Adverse Reaction (Intermediate, Verified 10/06/24 09:42) Loss of Appetite Medication List - Last Reconciled 10/06/24 by Imani Mckeon RN albuterol sulfate 90 mcg/actuation 2 puffs PO Q2H PRN atorvastatin 40 mg PO DAILY wyiicpnayz-woxreknffanvp-kcmu 50-300-40 mg caps PO carvedilol 6.25 mg PO BID cyanocobalamin (vitamin B-12) 1,000 mcg PO DAILY doxycycline hyclate 100 mg PO BID fluorouracil 5% 1 appl topical DAILY furosemide 60 mg (1.5 x 40 mg) PO DAILY 30 days ipratropium-albuterol 0.5 mg-3 mg(2.5 mg base)/3 mL 3 mL inhalation Q6H 30 days loperamide (Imodium A-D) PO PRN multivitamin (One Daily Multivitamin tablet) 1 tab PO DAILY tamsulosin 0.4 mg PO BID 90 days theophylline ER 400 mg PO DAILY umeclidinium-vilanterol 62.5-25 mcg/actuation (Anoro Ellipta) 1 inh inhalation DAILY warfarin See Protocol 6mg X6 days and 4.5mg X1 day orally as directed; Take medication as directed per anticoagulation clinic based on your INR blood test results, per anticoag clinic, dose is still in adjustment phase taking 6 mg X6 days and 4.5mg X1 day. 30 days zolpidem 5 mg PO BEDTIME PRN Nursing Note INR: 2.0 in therapeutic range of 2-3 Medications and supplements reviewed. No changes No changes in health, diet, medications, or supplements, Denies any signs and symptoms of bleeding or bruising or clotting. Bleeding, bruising, clotting discussed Nutritional guidance given to avoid greens X 2 days. Food list reviewed. Pt will have extra serving of reds such as carrots, beets, cranberry juice and grapes and strawberries. Dose: 6mg X 6 days and 4.5mg X 1 day F/U INR: 3 weeks Patient verbalizes understanding of instructions given Anti-Coag Initial Assessment Social Hx Patient Tobacco Use Status: Former Tobacco user alcohol intake: current Alcohol intake frequency: 0-2 drinks per day Cardiovascular Hx: HTN, [place] (non stemi) and Arrhythmias (afib) Lung Disease HX: COPD Musculoskeletal Hx: Gout Blood Disorder Hx: Hyperlipidemia GI Hx: Hemorrhoids Hx: Kidney Disease (naren) and Prostate (prostate cancer) Cancer HX: Yes Psych. Illness/Depression: No Coding Level of Care Code Est Patient Level 1 Diagnoses Current use of anticoagulant therapy Z79.01 Assessment & Plan Assessment & Plan (1) Current use of anticoagulant therapy: Code(s): Z79.01 - [facility] (current) use of anticoagulants Category: Medical
== END 2024-10-06 10:00 | disposition home or self-care (01) ==
LOC: HO.ACS 09:30
PROVIDERS: PCP Internal Medicine; Visit Provider Internal Medicine
DX: Z79.01 Long term (current) use of anticoagulants (principal)

== ENCOUNTER → 2024-10-06 09:30 | Outpatient (BNVA) | payer MEDICARE, SELFPAY | PROVIDERS: PCP Internal Medicine; Visit Provider Internal Medicine | DX: I48.0 Paroxysmal atrial fibrillation (principal); Z79.01 Long term (current) use of anticoagulants; Z51.81 Encounter for therapeutic drug level monitoring | CPT/HCPCS: 85610; 99211 ==

== ENCOUNTER 2024-10-09 08:49 | Outpatient (REF) | payer MEDICARE, SELFPAY ==
[2024-10-09 10:56] LABS: Prostate Specific Antigen < 0.10 ng/mL (<0.05-4.0)
== END 2024-10-09 08:50 | disposition home or self-care (01) ==
LOC: HO.HMGCLDS 08:49
PROVIDERS: PCP Internal Medicine; Visit Provider Urology
DX: C61 Malignant neoplasm of prostate (principal); Z12.5 Encounter for screening for malignant neoplasm of prostate
CPT/HCPCS: 36415; 84153

== ENCOUNTER 2024-10-15 09:43 | Outpatient (AMB) | payer MEDICARE, SELFPAY ==
--- NOTE | 2024-10-15 10:05 | MHC.OFFVIS ---
Intake Visit Reasons: 6M PSA(set) Intake Note: Patient is present for 6M PSA Urology Medication:TAMSULOSIN,VITAMIN B12 Antibiotic Allergy:AMOXICILLIN Blood Thinner:WARFARIN Mold Puller Required: No Allergies pneumococcal vaccine [PNEUMOCOCCAL VACCINE] Allergy (Intermediate, Verified 10/15/24 10:06) RASH amoxicillin [From Augmentin] Allergy (Unknown, Verified 10/15/24 10:06) Swelling clavulanic acid [From Augmentin] Allergy (Unknown, Verified 10/15/24 10:06) Swelling theophylline Adverse Reaction (Intermediate, Verified 10/15/24 10:06) Loss of Appetite HPI Comments Details: Kalyan is a pleasant male. He is a patient of Dr. Gamboa. 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 Chahal February 2020 Prostate biopsy for elevated PSA - 16 Worcester score 4+4(A); 4+3(B); 3+3(D) Number cores positive 3 Total number of cores 12 % of tissue involved 5% Therapy. GnRH with gold seed markers and radiation with [address] [facility] completed December 2020 - associated symptoms rectal urgency PSA - 01/25 <0.1, 07/27 <0.1, 10/28 <0.1 T 2, 01/26 <0.1, 05/28 <0.1, 09/27 <0.1, 02/26 T 172, 06/29 <0.1, 10/30 <0.1, 03/30 <0.1 T281, 10/31 <0.1 PFSH Medical History High cholesterol Gout Hypertension Essential hypertension Prostate cancer Pulmonary nodules COPD (chronic obstructive pulmonary disease) Surgical History History of spinal surgery Family History Father No problems noted. Mother No problems noted. Social History Housing: House Alcohol intake: current Alcohol intake frequency: 0-2 drinks per day Alcohol type: wine Patient Tobacco Use Status: Former Tobacco user Years Smoked: 61 yrs Second Hand Smoke Exposure: No service: Yes Current occupational status: retired Current occupation: retired- [employer] Current occupational exposures/hazards: No Review of Systems Const Denies chills and Denies fever(s) Card Reports no additional complaints and Denies syncope Resp Denies cough GI Denies abdominal pain and Denies heartburn Reports as per HPI and Denies change in libido Neuro Denies syncope Psych Denies change in libido Endo Denies change in libido Physical Exam Const General: cooperative, healthy appearing, comfortable and no acute distress Orientation/consciousness: patient oriented x3 HEENT Face and sinus: Yes normal facial exam Mouth: moist mucous membranes Neck Neck: Yes normal visual inspection, Yes full ROM and Yes trachea midline Chest Chest palpation & inspection: normal inspection of the chest Resp Effort & Inspection: normal respiratory effort, able to speak in complete sentences and no respiratory distress GI Inspection: Yes normal to inspection Back/Spine/Pelvis Cervical Spine: normal cervical lordosis Thoracic/Lumbar Spine: thoracic and lumbar spine normal to inspection Skin General skin exam: no rashes or lesions noted Neuro General: patient oriented x3, gait normal, tone normal and moves all extremities Extrem General: Yes normal to inspection and Yes capillary refill normal Results AMB Urinalysis, Automated UA Leukoctes 0 Susan/uL Last Edit by LIZA Jackman on 10/15/24 10:26 UA Nitrite Negative Last Edit by LIZA Jackman on 10/15/24 10:26 UA Urobilinogen 3.5 mg/dL Last Edit by LIZA Jackman on 10/15/24 10:26 UA Protein 0 mg/dL Last Edit by LIZA Jackman on 10/15/24 10:26 UA pH 7.0 Last Edit by LIZA Jackman on 10/15/24 10:26 UA Blood 0 Alex/uL Last Edit by Markel Mir [facility] on 10/15/24 10:26 UA Specific [place] 1.005 Last Edit by LIZA Jackman on 10/15/24 10:26 UA Ketone Negative Last Edit by Markel Mir [facility] on 10/15/24 10:26 UA Bilirubin 0 mg/dL Last Edit by Markel Mir [facility] on 10/15/24 10:26 UA Glucose 0 mg/dL Last Edit by Markel Mir [facility] on 10/15/24 10:26 Assessment & Plan Assessment & Plan (1) Prostate cancer: Comment: February 2021 High-grade, external beam radiation with 18 months GnRH Code(s): C61 - Malignant neoplasm of prostate Category: Medical (2) 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 No major barriers to patient understanding were identified. An opportunity to ask questions regarding the treatment plan was provided. All questions were answered. The patient expressed understanding and agreement with the above treatment plan. The patient is aware they should contact our office by phone for worsening of their current condition or the appearance of new urologic symptoms. Compliance is encouraged with any medications and followup testing that is ordered. It is a privilege to participate in the urologic care of your patient. If you have any questions or concerns regarding treatment for the above conditions, or other urologic issues, please do not hesitate to contact me. The office telephone contact is [phone]. This note is constructed using voice recognition software. While every effort has been made to ensure accuracy retention specialist errors may have been included. Yours sincerely, Dr Catarino Gottlieb MD, [facility] - Urology Providers of Expert, Compassionate Care for the Genitourinary System Coding Level of Care Code Est Pt Level 4 (37811) Diagnoses Prostate cancer C61 Radiation cystitis N30.40 Urinary urgency R39.15
== END 2024-10-15 10:56 | disposition home or self-care (01) ==
PROVIDERS: PCP Internal Medicine; Visit Provider Urology
DX: C61 Malignant neoplasm of prostate (principal); N30.40 Irradiation cystitis without hematuria; R39.15 Urgency of urination; Z13.9 Encounter for screening, unspecified
CPT/HCPCS: 99214

== ENCOUNTER → 2024-10-15 09:43 | Outpatient (BNVA) | payer MEDICARE, SELFPAY | PROVIDERS: PCP Internal Medicine; Visit Provider Urology | DX: C61 Malignant neoplasm of prostate (principal); R39.15 Urgency of urination; N30.40 Irradiation cystitis without hematuria | CPT/HCPCS: 81003; 99212 ==

== ENCOUNTER 2024-10-27 09:45 | Outpatient (AMB) | payer MEDICARE, SELFPAY ==
[2024-10-27 10:19] LABS: Prothrombin Time Whole Bld POC 23.7 sec (11.1-13.5)
--- NOTE | 2024-10-27 10:27 | MHC.OFFVISCO ---
Intake Intake Visit Reasons: Anticoagulation Allergies pneumococcal vaccine [PNEUMOCOCCAL VACCINE] Allergy (Intermediate, Verified 10/27/24 09:47) RASH amoxicillin [From Augmentin] Allergy (Unknown, Verified 10/27/24 09:47) Swelling clavulanic acid [From Augmentin] Allergy (Unknown, Verified 10/27/24 09:47) Swelling theophylline Adverse Reaction (Intermediate, Verified 10/27/24 09:47) Loss of Appetite Medication List - Last Reconciled 10/27/24 by Imani Lee RN albuterol sulfate 90 mcg/actuation 2 puffs PO Q2H PRN atorvastatin 40 mg PO DAILY qyygfphdpf-axslxmdjujzjp-orxj 50-300-40 mg caps PO carvedilol 6.25 mg PO BID cyanocobalamin (vitamin B-12) 1,000 mcg PO DAILY fesoterodine ER 4 mg PO DAILY 30 days fluorouracil 5% 1 appl topical DAILY furosemide 60 mg (1.5 x 40 mg) PO DAILY 30 days ipratropium-albuterol 0.5 mg-3 mg(2.5 mg base)/3 mL 3 mL inhalation Q6H 30 days loperamide (Imodium A-D) PO PRN multivitamin (One Daily Multivitamin tablet) 1 tab PO DAILY tamsulosin 0.4 mg PO BID 90 days umeclidinium-vilanterol 62.5-25 mcg/actuation (Anoro Ellipta) 1 inh inhalation DAILY warfarin See Protocol 6mg X6 days and 4.5mg X1 day orally as directed; Take medication as directed per anticoagulation clinic based on your INR blood test results, per anticoag clinic, dose is still in adjustment phase taking 6 mg X6 days and 4.5mg X1 day. 30 days zolpidem 5 mg PO BEDTIME PRN Nursing Note Amb to ACS wearing O2, accomp by spouse Medications and supplements reviewed, EMAR updated and many questions as to what some current meds are, sts not doing one or more of the inhalers not going to pay $300 , has been off Theophylline (adverse reaction, loss of appetite) new medication noted Fesoterodine ( no warfarin interaction per micromedex) Pt reminded needs to call with medicaion changes, if new med added, if meds discontinued and the importance of reviewing med list with all providers and making sure it is kept up to date in computer copy of medications from [facility] given, [facility] [place] update given for pt to fill out as current list in wallet not up to date. No other changes in health, diet, medications, or supplements, Denies any signs and symptoms of bleeding or bruising or clotting. Bleeding, bruising, clotting discussed INR: 2.0 low in therapeutic range Dose: continue usual dosing 6mg x 6 days and 4.5mg x 1 day Food list reviewed at length- recommended to stay away from heavy duty greens today and tomorrow such as cooked spinach or broccoli but overall instructed to eat a balanced diet, eat foods that one likes avoid extremes in diet choices, compare to food list F/U INR: 2 weeks Patient and verbalizes understanding of instructions given, pt headed to [place] (sts he has to pee every 15 mins to 1/2 hour in morning) expresses much concern over caring for pt, sts he is very stubborn. When questioned by this RN about feeling safe, sts I'm safe, I don't take shit from anyone, but it is tough currently in 2 family home, adult son my slow learner living in basement, grandchildren living upstairs apartment declined any services at this time Anti-Coag Initial Assessment Social Hx Patient Tobacco Use Status: Former Tobacco user alcohol intake: current Alcohol intake frequency: 0-2 drinks per day Cardiovascular Hx: HTN, [place] (non stemi) and Arrhythmias (afib) Lung Disease HX: COPD Musculoskeletal Hx: Gout Blood Disorder Hx: Hyperlipidemia GI Hx: Hemorrhoids Hx: Kidney Disease (naren) and Prostate (prostate cancer) Cancer HX: Yes Psych. Illness/Depression: No Coding Level of Care Code Est Patient Level 2 Diagnoses Current use of anticoagulant therapy Z79.01 Time Spent (min) 30 Assessment & Plan Assessment & Plan (1) Current use of anticoagulant therapy: Code(s): Z79.01 - [facility] (current) use of anticoagulants Category: Medical
== END 2024-10-27 10:50 | disposition home or self-care (01) ==
LOC: HO.ACS 09:45
PROVIDERS: PCP Internal Medicine; Visit Provider Internal Medicine
DX: Z79.01 Long term (current) use of anticoagulants (principal)

== ENCOUNTER → 2024-10-27 09:45 | Outpatient (BNVA) | payer MEDICARE, SELFPAY | PROVIDERS: PCP Internal Medicine; Visit Provider Internal Medicine | DX: I48.0 Paroxysmal atrial fibrillation (principal); Z79.01 Long term (current) use of anticoagulants; Z51.81 Encounter for therapeutic drug level monitoring | CPT/HCPCS: 85610; 99212 ==

== ENCOUNTER 2024-11-10 09:30 | Outpatient (AMB) | payer MEDICARE, SELFPAY ==
--- NOTE | 2024-11-10 09:38 | MHC.OFFVISCO ---
Intake Intake Visit Reasons: Anticoagulation Allergies pneumococcal vaccine [PNEUMOCOCCAL VACCINE] Allergy (Intermediate, Verified 11/10/24 09:32) RASH amoxicillin [From Augmentin] Allergy (Unknown, Verified 11/10/24 09:32) Swelling clavulanic acid [From Augmentin] Allergy (Unknown, Verified 11/10/24 09:32) Swelling theophylline Adverse Reaction (Intermediate, Verified 11/10/24 09:32) Loss of Appetite Medication List - Last Reconciled 11/10/24 by Amisha Winter RN albuterol sulfate 90 mcg/actuation 2 puffs PO Q2H PRN atorvastatin 40 mg PO DAILY yhfuoaaejm-pprpnqawfuhoq-kfhi 50-300-40 mg caps PO carvedilol 6.25 mg PO BID cyanocobalamin (vitamin B-12) 1,000 mcg PO DAILY fesoterodine ER 4 mg PO DAILY 30 days fluorouracil 5% 1 appl topical DAILY furosemide 60 mg (1.5 x 40 mg) PO DAILY ipratropium-albuterol 0.5 mg-3 mg(2.5 mg base)/3 mL 3 mL inhalation Q6H 30 days loperamide (Imodium A-D) PO PRN multivitamin (One Daily Multivitamin tablet) 1 tab PO DAILY tamsulosin 0.4 mg PO BID 90 days umeclidinium-vilanterol 62.5-25 mcg/actuation (Anoro Ellipta) 1 inh inhalation DAILY warfarin See Protocol 6mg X6 days and 4.5mg X1 day orally as directed; Take medication as directed per anticoagulation clinic based on your INR blood test results, per anticoag clinic, dose is still in adjustment phase taking 6 mg X6 days and 4.5mg X1 day. 30 days zolpidem 5 mg PO BEDTIME PRN Nursing Note INR 1.8-?? out of therapeutic range of 2-3 Medications and supplements reviewed Patient status: less etoh- but states will return to normal etoh- aware this will raise inr pt on cont oxygen, acommpanied by Medications or supplements: no changes Diet: appetite good Denies any signs and symptoms of bleeding or clotting or unusual bruising Bleeding, bruising, clotting discussed Nutritional guidance given: no greens for 2 days, eat a red today, food list provided Dose: take 7.5mg today, then cont 6mg x 6, 4.5mg x 1 F/U INR Date : 2 weeks?? Patient verbalizing understanding of instructions given. Anti-Coag Initial Assessment Social Hx Patient Tobacco Use Status: Former Tobacco user alcohol intake: current Alcohol intake frequency: 0-2 drinks per day Cardiovascular Hx: HTN, [place] (non stemi) and Arrhythmias (afib) Lung Disease HX: COPD Musculoskeletal Hx: Gout Blood Disorder Hx: Hyperlipidemia GI Hx: Hemorrhoids Hx: Kidney Disease (naren) and Prostate (prostate cancer) Cancer HX: Yes Psych. Illness/Depression: No Coding Level of Care Code Est Patient Level 1 Diagnoses Current use of anticoagulant therapy Z79.01 Assessment & Plan Assessment & Plan (1) Current use of anticoagulant therapy: Code(s): Z79.01 - [facility] use of anticoagulants Category: Medical
[2024-11-10 09:39] LABS: Prothrombin Time Whole Bld POC 21.5 sec (11.1-13.5); ~PT, ~INR - Anti Coag Clinic 1.8 (0.9-1.1)
== END 2024-11-10 09:52 | disposition home or self-care (01) ==
LOC: HO.ACS 09:30
PROVIDERS: PCP Internal Medicine; Visit Provider Internal Medicine
DX: Z79.01 Long term (current) use of anticoagulants (principal)

== ENCOUNTER → 2024-11-10 09:30 | Outpatient (BNVA) | payer MEDICARE, SELFPAY | PROVIDERS: PCP Internal Medicine; Visit Provider Internal Medicine | DX: I48.0 Paroxysmal atrial fibrillation (principal); Z79.01 Long term (current) use of anticoagulants; Z51.81 Encounter for therapeutic drug level monitoring | CPT/HCPCS: 85610; 99211 ==

== ENCOUNTER 2024-11-24 09:34 | Outpatient (AMB) | payer MEDICARE, SELFPAY ==
[2024-11-24 09:48] LABS: Prothrombin Time Whole Bld POC 28.2 sec (11.1-13.5); ~PT, ~INR - Anti Coag Clinic 2.4 (0.9-1.1)
--- NOTE | 2024-11-24 09:54 | MHC.OFFVISCO ---
Intake Intake Visit Reasons: Anticoagulation Allergies pneumococcal vaccine [PNEUMOCOCCAL VACCINE] Allergy (Intermediate, Verified 11/24/24 09:43) RASH amoxicillin [From Augmentin] Allergy (Unknown, Verified 11/24/24 09:43) Swelling clavulanic acid [From Augmentin] Allergy (Unknown, Verified 11/24/24 09:43) Swelling theophylline Adverse Reaction (Intermediate, Verified 11/24/24 09:43) Loss of Appetite Medication List - Last Reconciled 11/24/24 by Imani Mckeon RN albuterol sulfate 90 mcg/actuation 2 puffs PO Q2H PRN atorvastatin 40 mg PO DAILY iaciwbuacl-sdsbcwurxcykv-msfy 50-300-40 mg caps PO carvedilol 6.25 mg PO BID cyanocobalamin (vitamin B-12) 1,000 mcg PO DAILY fesoterodine ER 4 mg PO DAILY 30 days fluorouracil 5% 1 appl topical DAILY furosemide 60 mg (1.5 x 40 mg) PO DAILY ipratropium-albuterol 0.5 mg-3 mg(2.5 mg base)/3 mL 3 mL inhalation Q6H 30 days loperamide (Imodium A-D) PO PRN multivitamin (One Daily Multivitamin tablet) 1 tab PO DAILY tamsulosin 0.4 mg PO BID 90 days umeclidinium-vilanterol 62.5-25 mcg/actuation (Anoro Ellipta) 1 inh inhalation DAILY warfarin See Protocol 6mg X6 days and 4.5mg X1 day orally as directed; Take medication as directed per anticoagulation clinic based on your INR blood test results, per anticoag clinic, dose is still in adjustment phase taking 6 mg X6 days and 4.5mg X1 day. 30 days zolpidem 5 mg PO BEDTIME PRN Nursing Note INR: 2.4 in therapeutic range of 2-3 Medications and supplements reviewed No changes in health, diet, medications, or supplements, Denies any signs and symptoms of bleeding or bruising or clotting. Bleeding, bruising, clotting discussed Nutritional guidance given Dose: 6mg X 6 days and 4.5mg X 1 day F/U INR: 3 weeks Patient verbalizes understanding of instructions given Anti-Coag Initial Assessment Social Hx Patient Tobacco Use Status: Former Tobacco user alcohol intake: current Alcohol intake frequency: 0-2 drinks per day Cardiovascular Hx: HTN, [place] (non stemi) and Arrhythmias (afib) Lung Disease HX: COPD Musculoskeletal Hx: Gout Blood Disorder Hx: Hyperlipidemia GI Hx: Hemorrhoids Hx: Kidney Disease (naren) and Prostate (prostate cancer) Cancer HX: Yes Psych. Illness/Depression: No Coding Level of Care Code Est Patient Level 1 Diagnoses Current use of anticoagulant therapy Z79.01 Assessment & Plan Assessment & Plan (1) Current use of anticoagulant therapy: Code(s): Z79.01 - half-way (current) use of anticoagulants Category: Medical
--- OUTSIDE RECORDS SUMMARY | 2024-11-24 10:19 | XMS_ITS ---
Author Organization Jake Pepper MD Address [address] [place] [phone] Care Team Providers Care Waste Collection Driver Name Role Phone Jake Pepper Primary Care Provider [phone] REASON FOR VISIT New Refill Request Medications Medication SIG (Take, Route, Fr equency, Duration) Notes Start Date End Date Status Zolpidem Tartrate 5 MG TAKE 1 TABLET BY MOUTH DAILY AT BEDTIME Orally Once a day for 30 days 09/03/2024 Active Encounters Encounter Location Date Provider Diagnosis Jake Pepper MD [address] [place] [phone] 09/02/2024 Jake Pepper Insomnia G47.00 Assessments Encounter Date Diagnosis (ICD Code) Assessment Notes Treatment Notes Treatment Clinical Notes Section Notes 09/02/2024 Insomnia (ICD-10 - G47.00) Plan Of Treatment Medication Medication Name Sig Start Date Stop Date Notes Zolpidem Tartrate 5 MG TAKE 1 TABLET BY MOUTH DAILY AT BEDTIME Orally Once a day for 30 days 09/03/2024 Next Appt Details Provider Name:Jake Miller ier, 02/19/2025 07:15:00 AM, [address] [facility], [address], [place], [place], [phone], Provider Name:Jake Miller ier, 02/26/2025 11:00:00 AM, [address] [facility], [address], [place], [place], [phone], Progress Notes * Kalyan JUAREZ RDOB: [birth year] (83 yo M)Acc No.[id number]:09/02/2024 Patient:?Kalyan Juarez :1940???Age:83 Y???Sex:Male Address:[address] [place] [phone] * Refills? Refill Zolpidem Tartrate Tablet, 5 MG, Orally, 30, TAKE 1 TABLET BY MOUTH DAILY AT BEDTIME, Once a day, 30 days, Refills=0 * true * Date:? Generated for Mabel trotter/Ashish/Erikasmitting on:?11/24/2024 10:18 AM EST
--- OUTSIDE RECORDS SUMMARY | 2024-11-24 10:19 | XMS_ITS ---
Author Organization Jake Pepper MD Address [address] [place] [phone] Care Team Providers Care Mechanical Technical Service Specialist Name Role Phone Jake Pepper Primary Care Provider REASON FOR VISIT New Refill Request Medications Medication SIG (Take, Route, Fr equency, Duration) Notes Start Date End Date Status Zolpidem Tartrate 5 MG TAKE 1 TABLET BY MOUTH DAILY AT BEDTIME Orally Once a day for 30 days 10/06/2024 Active Encounters Encounter Location Date Provider Diagnosis Jake Pepper MD [address] [place] [phone] 10/05/2024 Jake Pepper Insomnia G47.00 Assessments Encounter Date Diagnosis (ICD Code) Assessment Notes Treatment Notes Treatment Clinical Notes Section Notes 10/05/2024 Insomnia (ICD-10 - G47.00) Plan Of Treatment Medication Medication Name Sig Start Date Stop Date Notes Zolpidem Tartrate 5 MG TAKE 1 TABLET BY MOUTH DAILY AT BEDTIME Orally Once a day for 30 days 10/06/2024 Next Appt Details Provider Name:Jake Miller ier, 02/19/2025 07:15:00 AM, [address] [facility], [address], [place], [place], [phone], Provider Name:Jake Miller ier, 02/26/2025 11:00:00 AM, [address] [facility], [address], [place], [place], [phone], Progress Notes * Kalyan JUAREZ RDOB: [birth year] (83 yo M)Acc No.[id number]:10/05/2024 Patient:?Kalyan Juarez :1940???Age:83 Y???Sex:Male Address:[address] [place] [phone] * Refills? Refill Zolpidem Tartrate Tablet, 5 MG, Orally, 30, TAKE 1 TABLET BY MOUTH DAILY AT BEDTIME, Once a day, 30 days, Refills=0 * true * Date:? Generated for Mabel trotter/Ashish/Erikasmitting on:?11/24/2024 10:19 AM EST
--- OUTSIDE RECORDS SUMMARY | 2024-11-24 10:19 | XMS_ITS ---
Author Organization Jake Pepper MD Address [address] [place] [phone] Care Team Providers Care Career Services Coordinator Name Role Phone Jake Pepper Primary Care Provider REASON FOR VISIT New Refill Request Medications Medication SIG (Take, Route, Fr equency, Duration) Notes Start Date End Date Status Zolpidem Tartrate 5 MG TAKE 1 TABLET BY MOUTH DAILY AT BEDTIME Orally Once a day for 30 days 11/09/2024 Active Encounters Encounter Location Date Provider Diagnosis Jake Pepper MD [address] [place] [phone] 11/08/2024 Jake Pepper Insomnia G47.00 Assessments Encounter Date Diagnosis (ICD Code) Assessment Notes Treatment Notes Treatment Clinical Notes Section Notes 11/08/2024 Insomnia (ICD-10 - G47.00) Plan Of Treatment Medication Medication Name Sig Start Date Stop Date Notes Zolpidem Tartrate 5 MG TAKE 1 TABLET BY MOUTH DAILY AT BEDTIME Orally Once a day for 30 days 11/09/2024 Next Appt Details Provider Name:Jake Miller ier, 02/19/2025 07:15:00 AM, [address] [facility], [address], [place], [place], [phone], Provider Name:Jake Miller ier, 02/26/2025 11:00:00 AM, [address] [facility], [address], [place], [place], [phone], Progress Notes * Kalyan JUAREZ RDOB: [birth year] (84 yo M)Acc No.[id number]:11/08/2024 Patient:?Kalyan JUAREZ :1940???Age:84 Y???Sex:Male Address:[address] [place] [phone] * Refills? Refill Zolpidem Tartrate Tablet, 5 MG, Orally, 30, TAKE 1 TABLET BY MOUTH DAILY AT BEDTIME, Once a day, 30 days, Refills=0 * true * Date:? Generated for Mabel trotter/Ashish/Erkiasmitting on:?11/24/2024 10:19 AM EST
== END 2024-11-24 09:57 | disposition home or self-care (01) ==
LOC: HO.ACS 09:34
PROVIDERS: PCP Internal Medicine; Visit Provider Internal Medicine
DX: Z79.01 Long term (current) use of anticoagulants (principal)

== ENCOUNTER → 2024-11-24 09:34 | Outpatient (BNVA) | payer MEDICARE, SELFPAY | PROVIDERS: PCP Internal Medicine; Visit Provider Internal Medicine | DX: I48.0 Paroxysmal atrial fibrillation (principal); Z79.01 Long term (current) use of anticoagulants; Z51.81 Encounter for therapeutic drug level monitoring | CPT/HCPCS: 85610; 99211 ==

== ENCOUNTER 2024-12-10 07:40 | Outpatient (AMB) | payer MEDICARE, SELFPAY ==
--- NOTE | 2024-12-10 07:40 | MHC.OFFVIS ---
Intake Visit Reasons: 8w/med review(fesoterodine)set Intake Note: Pt presents to the office today as a telehealth visit for an 8 week follow up/med review. Allergies pneumococcal vaccine [PNEUMOCOCCAL VACCINE] Allergy (Intermediate, Verified 12/10/24 07:40) RASH amoxicillin [From Augmentin] Allergy (Unknown, Verified 12/10/24 07:40) Swelling clavulanic acid [From Augmentin] Allergy (Unknown, Verified 12/10/24 07:40) Swelling theophylline Adverse Reaction (Intermediate, Verified 12/10/24 07:40) Loss of Appetite HPI Comments Details: Kalyan is a pleasant male. He is a patient of Dr. Gamboa. 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 Chahal February 2020 Prostate biopsy for elevated PSA - 16 Milena score 4+4(A); 4+3(B); 3+3(D) Number cores positive 3 Total number of cores 12 % of tissue involved 5% Therapy. GnRH with gold seed markers and radiation with 18 month hormones [facility] completed December 2020 - associated symptoms rectal urgency PSA - 01/25 <0.1, 07/27 <0.1, 10/28 <0.1 T 2, 01/26 <0.1, 05/28 <0.1, 09/27 <0.1, 02/26 T 172, 06/29 <0.1, 10/30 <0.1, 03/30 <0.1 T281, 10/31 <0.1 PFSH Medical History High cholesterol Gout Hypertension Essential hypertension Prostate cancer Pulmonary nodules COPD (chronic obstructive pulmonary disease) Surgical History History of spinal surgery Family History Father No problems noted. Mother No problems noted. 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 Current occupational exposures/hazards: No Review of Systems Const All systems reviewed & are unremarkable except as noted in HPI and below Reports no additional complaints Resp Reports no additional complaints GI Reports no additional complaints Reports as per HPI Musc Reports no additional complaints Physical Exam Telemedicine evaluation Appropriate responses Regular breathing rate and rhythm HEENT Head: Yes normal to inspection Ears: hearing grossly normal bilaterally Eyes General: appearance normal, both eyes and all related structures Neck Neck: Yes normal visual inspection Chest Chest palpation & inspection: normal inspection of the chest Resp Effort & Inspection: normal respiratory effort and able to speak in complete sentences Telehealth Telehealth Telehealth Platform: [email or web address] Location of provider rendering services: practice address Location of patient: address on file Patient Identification confirmed using: Name, : Yes Telehealth method: video Patient verbally consented to treatment: Yes Patient verbally consented to billing insurance company: Yes Patient informed of any privacy concerns related to visit: Yes Minutes spent on Phone/Video with Pt.: 15 Assessment & Plan Assessment & Plan (1) Prostate cancer: Comment: February 2021 High-grade, external beam radiation with 18 months GnRH Code(s): C61 - Malignant neoplasm of prostate Category: Medical Plan Six-month follow-up PSA Orders: Orders Prostate Specific Antigen 6 Months C61 - Malignant neoplasm of prostate Patient Instructions: This note is constructed using voice recognition software. While every effort has been made to ensure accuracy dispatch associate errors may have been included. Imaging studies, laboratory and physical exam results were discussed and reviewed in detail. No major barriers to patient understanding were identified. An opportunity to ask questions regarding the treatment plan was provided. All questions were answered. The patient expressed understanding and agreement with the above treatment plan. The patient is aware they should contact our office by phone for worsening of their current condition or the appearance of new urologic symptoms. Compliance is encouraged with any medications and followup testing that is ordered. It is a privilege to participate in the urologic care of your patient. If you have any questions or concerns regarding treatment for the above conditions, or other urologic issues, please do not hesitate to contact me. The office telephone contact is [phone]. Sincerely, Dr Catarino Gottlieb MD, [facility] - Urology Compassionate Specialist Care for the Genitourinary System Coding Level of Care Code Tele Est Pt Level 3 (30201) Complex EM visit Add On G2211 Diagnoses Prostate cancer C61
--- OUTSIDE RECORDS SUMMARY | 2024-12-10 07:43 | XMS_ITS ---
Author Organization Jake Pepper MD Address [address] [place] [phone] Care Team Providers Care Figurine Maker Name Role Phone Jake Pepper Primary Care Provider REASON FOR VISIT New Refill Request Medications Medication SIG (Take, Route, Fr equency, Duration) Notes Start Date End Date Status Zolpidem Tartrate 5 MG TAKE 1 TABLET BY MOUTH DAILY AT BEDTIME Orally Once a day for 30 days 12/07/2024 Active Encounters Encounter Location Date Provider Diagnosis Jake Pepper MD [address] [place] [phone] 12/07/2024 Jake Pepper Insomnia G47.00 Assessments Encounter Date Diagnosis (ICD Code) Assessment Notes Treatment Notes Treatment Clinical Notes Section Notes 12/07/2024 Insomnia (ICD-10 - G47.00) Plan Of Treatment Medication Medication Name Sig Start Date Stop Date Notes Zolpidem Tartrate 5 MG TAKE 1 TABLET BY MOUTH DAILY AT BEDTIME Orally Once a day for 30 days 12/07/2024 Next Appt Details Provider Name:Jake Miller ier, 02/19/2025 07:15:00 AM, [address], [address], [place], [place], [phone], Provider Name:Jake Miller ier, 02/26/2025 11:00:00 AM, [address] [facility], [address], [place], [place], [phone], Progress Notes * Kalyan JUAREZ RDOB: [birth year] (84 yo M)Acc No.[id number]:12/07/2024 Patient:?Kalyan JUAREZ :1940???Age:84 Y???Sex:Male Address:[address] [place] [phone] * Refills? Refill Zolpidem Tartrate Tablet, 5 MG, Orally, 30, TAKE 1 TABLET BY MOUTH DAILY AT BEDTIME, Once a day, 30 days, Refills=0 * true * Date:? Generated for Mabel trotter/Ashish/Erikasmitting on:?12/10/2024 07:43 AM EST
--- OUTSIDE RECORDS SUMMARY | 2024-12-10 07:43 | XMS_ITS | Encounter Summary ---
Author Organization [facility] Address [address] [facility] [place] [address] Care Team Providers Care Cloth Printer Name Role Phone Jake Pepper MD Primary Care Provider Darleen vailable Encounter Details Date Type Department Care Team Description 03/27/2018 Release of Information Medical Records [address] [place] [id number] Abstract, Provider Social History Tobacco Use Types Packs/Day Years Used Date Smoking Tobacco: Former Cigarettes 1.5 50 Smokeless Tobacco: Former Alcohol Use Standard Drinks/Week Comments Not Asked 0 (1 standard drink = 0.6 oz pur e alcohol) Sex Assigned at Date Recorded Not on file documented as of this encounter Plan of Treatment Not on file documented as of this encounter Visit Diagnoses Not on filedocumented in this encounter Care Teams Cloth Printer Relationship Specialty Start Date End Date Jake Pepper MD PCP - General Internal Medicine 02/24/18 documented as of this encounter
--- OUTSIDE RECORDS SUMMARY | 2024-12-10 07:43 | XMS_ITS ---
Author Organization Jake Pepper MD Address [address] [place] [phone] Care Team Providers Care Hardwood Sawyer Name Role Phone Jake Pepper Primary Care Provider REASON FOR VISIT New Refill Request Medications Medication SIG (Take, Route, Fr equency, Duration) Notes Start Date End Date Status Zolpidem Tartrate 5 MG TAKE 1 TABLET BY MOUTH DAILY AT BEDTIME Orally Once a day for 30 days 11/09/2024 Active Encounters Encounter Location Date Provider Diagnosis Jake Pepper MD [address] [place] [phone] 11/08/2024 Jake Pepper Insomnia G47.00 Assessments Encounter [...] Name:Jake Miller ier, 02/19/2025 07:15:00 AM, [address] [facility], [address], [place], [place], [phone], Provider Name:Jake Miller ier, 02/26/2025 11:00:00 AM, [address] [facility], [address], [place], [place], [phone], Progress Notes * Kalyan JUAREZ RDOB: [birth year] (84 yo M)Acc No.[id number]:11/08/2024 Patient:?Kalyan JUAREZ :1940???Age:84 Y???Sex:Male Address:[address] [place] [phone] * Refills? Refill Zolpidem Tartrate Tablet, 5 MG, Orally, 30, TAKE 1 TABLET BY MOUTH DAILY AT BEDTIME, Once a day, 30 days, Refills=0 * true * Date:? Generated for Mabel trotter/Ashish/Erikasmitting on:?12/10/2024 07:43 AM EST
--- OUTSIDE RECORDS SUMMARY | 2024-12-10 07:44 | XMS_ITS ---
Author Organization Jake Pepper MD Address [address] [place] [phone] Care Team Providers Care Longwall Headgate Operator Name Role Phone Jake Pepper Primary Care Provider REASON FOR VISIT New Refill Request Medications Medication SIG (Take, Route, Fr equency, Duration) Notes Start Date End Date Status Zolpidem Tartrate 5 MG TAKE 1 TABLET BY MOUTH DAILY AT BEDTIME Orally Once a day for 30 days 10/06/2024 Active Encounters Encounter Location Date Provider Diagnosis Jake Pepper MD [address] [place] [phone] 10/05/2024 Jake Pepper Insomnia G47.00 Assessments Encounter [...] Name:Jake Miller ier, 02/19/2025 07:15:00 AM, 10 [facility], [address], [place], [place], [phone], Provider Name:Jake Miller ier, 02/26/2025 11:00:00 AM, [address] [facility], [address], [place], [place], [phone], Progress Notes * Kalyan JUAREZ RDOB: [birth year] (83 yo M)Acc No.[id number]:10/05/2024 Patient:?Kalyan Juarez :1940???Age:83 Y???Sex:Male Address:[address] [place] [phone] * Refills? Refill Zolpidem Tartrate Tablet, 5 MG, Orally, 30, TAKE 1 TABLET BY MOUTH DAILY AT BEDTIME, Once a day, 30 days, Refills=0 * true * Date:? Generated for Mabel trotter/Ashish/Erikasmitting on:?12/10/2024 07:43 AM EST
== END 2024-12-10 10:04 | disposition home or self-care (01) ==
LOC: HO.HUSH 07:40
PROVIDERS: PCP Internal Medicine; Visit Provider Urology
DX: C61 Malignant neoplasm of prostate (principal)
CPT/HCPCS: 99213; G2211

== ENCOUNTER → 2024-12-10 07:40 | Outpatient (BNVA) | payer MEDICARE, SELFPAY | PROVIDERS: PCP Internal Medicine; Visit Provider Urology ==

== ENCOUNTER 2024-12-16 15:28 | Outpatient (AMB) | payer MEDICARE, SELFPAY ==
--- NOTE | 2024-12-16 15:30 | MHC.OFFVIS ---
Vital Signs 12/16/24 15:32 Height 5 ft 7 in Weight 181 lb 3.52 oz BMI 28.4 BP 130/62 Blood Pressure Location Lt brachial Position Sitting Pulse 62 Pulse Source Pulse Oximeter Intake Visit Reasons: r/ s by us Intake Note: r/s-f/up 4 mth f/up Seasonal Clerk Required: No Accompanied by: Spouse Allergies pneumococcal vaccine [PNEUMOCOCCAL VACCINE] Allergy (Intermediate, Verified 12/10/24 07:40) RASH amoxicillin [From Augmentin] Allergy (Unknown, Verified 12/10/24 07:40) Swelling clavulanic acid [From Augmentin] Allergy (Unknown, Verified 12/10/24 07:40) Swelling theophylline Adverse Reaction (Intermediate, Verified 12/10/24 07:40) Loss of Appetite Medication List - Last Reconciled 12/16/24 by Minor Gautam MD albuterol sulfate 90 mcg/actuation 2 puffs PO Q2H PRN atorvastatin 40 mg PO DAILY carvedilol 6.25 mg PO BID cyanocobalamin (vitamin B-12) 1,000 mcg PO DAILY fluorouracil 5% 1 appl topical DAILY furosemide 60 mg (1.5 x 40 mg) PO DAILY ipratropium-albuterol 0.5 mg-3 mg(2.5 mg base)/3 mL 3 mL inhalation Q6H 30 days loperamide (Imodium A-D) PO PRN multivitamin (One Daily Multivitamin tablet) 1 tab PO DAILY tamsulosin 0.4 mg PO BID 90 days umeclidinium-vilanterol 62.5-25 mcg/actuation (Anoro Ellipta) 1 inh inhalation DAILY warfarin See Protocol 6mg X6 days and 4.5mg X1 day orally as directed; Take medication as directed per anticoagulation clinic based on your INR blood test results, per anticoag clinic, dose is still in adjustment phase taking 6 mg X6 days and 4.5mg X1 day. 30 days HPI Comments Details: 84-year-old gentleman with background history of hypertension, COPD, dyspnea on exertion and prostate cancer. His blood pressure was previously well controlled on amlodipine and hydrochlorothiazide. Early April 2021 he had a bad headache and went to the emergency department and was noticed to have significantly elevated blood pressures. He was admitted and started on medications. He said after addition of lisinopril and amlodipine his blood pressure dropped too low and he developed kidney injury. After that all his medication was stopped and he was sent home. He is denying any more headaches. He has no chest discomfort shortness of breath. He had mildly abnormal troponin levels in the setting of high blood pressures which was thought to be type 2 LA. subsequent to that he was referred for a nuclear perfusion study which was normal. On last visit we added amlodipine back because of blood pressure was elevated. It appears his amlodipine was increased and he was up to 10 mg of amlodipine. He said recently Dr. Pepper decreased it to 5 mg. In the office his blood pressure is 150s. He is denying any significant symptoms other than shortness of breath which has been a chronic issue for him due to his COPD. 08/21/23: Here for f/u. He has been on supplemental oxygen x 3 L. He has been SOB with activity due to COPD. He is saying his oxygen saturations are 80% without oxygen. He also has irregular heart rhythm today. He has no palpitations. 02/05/24: He is here for follow-up. Blood pressure is well controlled. His main complaint is fatigue and shortness of breath with activity. He previously was noticed to be hypoxic without supplemental oxygen. He is using oxygen off and on. He is saying when he wakes up his oxygen saturations are in 80s. 06/10/2024: He is here for follow-up. He has productive cough and is wheezing. Denying any chest pain. No palpitations. Continues to be in atrial fibrillation with rate control. 12/16/2024: Here for follow-up. He has advanced COPD and is on 24/7 oxygen supplementation. He is following with pulmonology tomorrow. Continues to be in atrial fibrillation but has no symptoms. He is on warfarin for anticoagulation. [facility] Medical History High cholesterol Gout Hypertension Essential hypertension Prostate cancer Pulmonary nodules COPD (chronic obstructive pulmonary disease) Surgical History History of spinal surgery Family History Father No problems noted. Mother No problems noted. 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 Current occupational exposures/hazards: No Review of Systems Const Denies chills, Denies fatigue, Denies fever(s), Denies frequent falls, Denies weakness, Denies weight gain and Denies weight loss ENT Denies dizziness Card Denies chest pain, Denies leg edema, Denies lightheadedness, Denies palpitations, Denies dyspnea and Denies dyspnea on exertion Resp Denies cough, Denies dyspnea and Denies dyspnea on exertion GI Denies hematochezia Musc Denies abnormal gait, Denies muscle weakness, Denies numbness, Denies radiating pain into limb and Denies tingling Neuro Denies abnormal gait, Denies dizziness, Denies frequent falls, Denies numbness, Denies tingling and Denies weakness Endo Denies fatigue and Denies palpitations Physical Exam Vital Signs: Last Vital Signs Pulse 62 12/16/24 15:32 BP 130/62 12/16/24 15:32 BMI result Body Mass Index 28.4 GENERAL APPEARANCE: in no acute distress. on supplemental oxygen. NECK/THYROID: no carotid bruit, no jugular venous distention. SKIN: no suspicious lesions, warm and dry. HEART: no murmurs, irregular rate and rhythm, S1, S2 normal. LUNGS: Bilateral expiratory wheezes. ABDOMEN: normal, bowel sounds present, soft, nontender, nondistended. EXTREMITIES: no clubbing, cyanosis, or edema. PERIPHERAL PULSES: equal. NEUROLOGIC: nonfocal, alert and oriented. PSYCH: mood/affect full range. Assessment & Plan Assessment & Plan (1) Permanent atrial fibrillation: Code(s): I48.21 - Permanent atrial fibrillation Category: Medical (2) CABALLERO (dyspnea on exertion): Code(s): R06.09 - Other forms of dyspnea Category: Medical Plan [age] gentleman who is here for follow-up. He has permanent atrial ablation, hypertension, COPD and prostate cancer. He was unable to afford Eliquis and is on warfarin at this point. On carvedilol 6.25 mg twice a day. Heart rate well controlled. Denying any palpitations. In terms of shortness of breath, he has advanced COPD and is on 24/7 oxygen at this point. He is following with pulmonology regularly. Continue same medications for now. Follow-up in 6 months with Jannet. Thank you for allowing me to participate in the care of your patient. Please feel free to contact me if you have any questions. Coding Level of Care Code Est Pt Level 4 (81603) Diagnoses Permanent atrial fibrillation I48.21 CABALLERO (dyspnea on exertion) R06.09
[2024-12-16 15:32] VITALS: BP 130/62; PULSE 62; BMI 28.4
--- OUTSIDE RECORDS SUMMARY | 2024-12-16 18:12 | XMS_ITS ---
Author Organization Jake Pepper MD Address [address] [place] [phone] Care Team Providers Care Toll Operator Name Role Phone Jake Pepper Primary Care Provider REASON FOR VISIT New Refill Request Medications Medication SIG (Take, Route, Fr equency, Duration) Notes Start Date End Date Status Zolpidem Tartrate 5 MG TAKE 1 TABLET BY MOUTH DAILY AT BEDTIME Orally Once a day for 30 days 10/06/2024 Active Encounters Encounter Location Date Provider Diagnosis Jake Pepper MD [address] [place] [phone] 10/05/2024 Jake Pepper Insomnia G47.00 Assessments Encounter [...] Name:Jake Miller ier, 02/19/2025 07:15:00 AM, [address] [facility], [address], [place], [place], [phone], Provider Name:Jake Miller ier, 02/26/2025 11:00:00 AM, [address] [facility], [address], [place], [place], [phone], Progress Notes * Kalyan JUAREZ RDOB: [birth year] (83 yo M)Acc No.[id number]:10/05/2024 Patient:?Kalyan Juarez :1940???Age:83 Y???Sex:Male Address:[address] [place] [phone] * Refills? Refill Zolpidem Tartrate Tablet, 5 MG, Orally, 30, TAKE 1 TABLET BY MOUTH DAILY AT BEDTIME, Once a day, 30 days, Refills=0 * true * Date:? Generated for Mabel trotter/Ashish/Erikasmitting on:?12/16/2024 06:12 PM EDT
--- OUTSIDE RECORDS SUMMARY | 2024-12-16 18:12 | XMS_ITS ---
Author Organization Jake Pepper MD Address [address] [place] [phone] Care Team Providers Care Server Cashier Name Role Phone Jake Pepper Primary Care Provider REASON FOR VISIT New Refill Request Medications Medication SIG (Take, Route, Fr equency, Duration) Notes Start Date End Date Status Zolpidem Tartrate 5 MG TAKE 1 TABLET BY MOUTH DAILY AT BEDTIME Orally Once a day for 30 days 12/07/2024 Active Encounters Encounter Location Date Provider Diagnosis Jake Pepper MD [address] [place] [phone] 12/07/2024 Jake Pepper Insomnia G47.00 Assessments Encounter [...] Name:Jake Miller ier, 02/19/2025 07:15:00 AM, [address] [facility], [address], [place], [place], [phone], Provider Name:Jake Miller ier, 02/26/2025 11:00:00 AM, [address] [facility], [address], [place], [place], [phone], Progress Notes * Kalyan JUAREZ RDOB: [birth year] (84 yo M)Acc No.[id number]:12/07/2024 Patient:?Kalyan JUAREZ :1940???Age:84 Y???Sex:Male Address:[address] [place] [phone] * Refills? Refill Zolpidem Tartrate Tablet, 5 MG, Orally, 30, TAKE 1 TABLET BY MOUTH DAILY AT BEDTIME, Once a day, 30 days, Refills=0 * true * Date:? Generated for Mabel trotter/Ashish/Erikasmitting on:?12/16/2024 06:12 PM EDT
--- OUTSIDE RECORDS SUMMARY | 2024-12-16 18:12 | XMS_ITS ---
Author Organization Jake Pepper MD Address [address] [place] [phone] Care Team Providers Care Laboratory Assistant Name Role Phone Jake Pepper Primary Care Provider REASON FOR VISIT New Refill Request Medications Medication SIG (Take, Route, Fr equency, Duration) Notes Start Date End Date Status Zolpidem Tartrate 5 MG TAKE 1 TABLET BY MOUTH DAILY AT BEDTIME Orally Once a day for 30 days 11/09/2024 Active Encounters Encounter Location Date Provider Diagnosis Jake Pepper MD [address] [place] [phone] 11/08/2024 Jake Pepper Insomnia G47.00 Assessments Encounter [...] Name:Jake Miller ier, 02/19/2025 07:15:00 AM, 10 [facility], [address], [place], [place], [phone], Provider Name:Jake Miller ier, 02/26/2025 11:00:00 AM, [address] [facility], [address], [place], [place], [phone], Progress Notes * Kalyan JUAREZ RDOB: [birth year] (84 yo M)Acc No.[id number]:11/08/2024 Patient:?Kalyan JUAREZ :1940???Age:84 Y???Sex:Male Address:[address] [place] [phone] * Refills? Refill Zolpidem Tartrate Tablet, 5 MG, Orally, 30, TAKE 1 TABLET BY MOUTH DAILY AT BEDTIME, Once a day, 30 days, Refills=0 * true * Date:? Generated for Mabel trotter/Ashish/Erikasmitting on:?12/16/2024 06:11 PM EDT
== END 2024-12-16 16:04 | disposition home or self-care (01) ==
PROVIDERS: PCP Internal Medicine; Visit Provider Internal Medicine Cardiovascular Disease
DX: I48.21 Permanent atrial fibrillation (principal); R06.09 Other forms of dyspnea
CPT/HCPCS: 99214

== ENCOUNTER → 2024-12-16 15:28 | Outpatient (BNVA) | payer MEDICARE, SELFPAY | PROVIDERS: PCP Internal Medicine; Visit Provider Internal Medicine Cardiovascular Disease | DX: I48.21 Permanent atrial fibrillation (principal); R06.09 Other forms of dyspnea | CPT/HCPCS: 99212 ==

== ENCOUNTER 2024-12-17 09:08 | Outpatient (AMB) | payer MEDICARE, SELFPAY ==
[2024-12-17 09:22] LABS: Prothrombin Time Whole Bld POC 23.9 sec (11.1-13.5)
--- NOTE | 2024-12-17 09:30 | MHC.OFFVISCO ---
Intake Intake Visit Reasons: Anticoagulation Allergies pneumococcal vaccine [PNEUMOCOCCAL VACCINE] Allergy (Intermediate, Verified 12/17/24 09:14) RASH amoxicillin [From Augmentin] Allergy (Unknown, Verified 12/17/24 09:14) Swelling clavulanic acid [From Augmentin] Allergy (Unknown, Verified 12/17/24 09:14) Swelling theophylline Adverse Reaction (Intermediate, Verified 12/17/24 09:14) Loss of Appetite Medication List - Last Reconciled 12/17/24 by Gertrudis Simeon RN albuterol sulfate 90 mcg/actuation 2 puffs PO Q2H PRN atorvastatin 40 mg PO DAILY carvedilol 6.25 mg PO BID cyanocobalamin (vitamin B-12) 1,000 mcg PO DAILY fluorouracil 5% 1 appl topical DAILY furosemide 60 mg (1.5 x 40 mg) PO DAILY ipratropium-albuterol 0.5 mg-3 mg(2.5 mg base)/3 mL 3 mL inhalation Q6H 30 days loperamide (Imodium A-D) PO PRN multivitamin (One Daily Multivitamin tablet) 1 tab PO DAILY tamsulosin 0.4 mg PO BID 90 days umeclidinium-vilanterol 62.5-25 mcg/actuation (Anoro Ellipta) 1 inh inhalation DAILY warfarin See Protocol 6mg X6 days and 4.5mg X1 day orally as directed; Take medication as directed per anticoagulation clinic based on your INR blood test results, per anticoag clinic, dose is still in adjustment phase taking 6 mg X6 days and 4.5mg X1 day. 30 days Nursing Note INR: 2.0 in therapeutic range Medications and supplements reviewed No changes in health, diet, medications, or supplements, Denies any signs and symptoms of bleeding or bruising or clotting. Bleeding, bruising, clotting discussed Nutritional guidance given Dose: 4.5mg x 1 day/ 2mg x 6 days F/U INR: 3 weeks Patient verbalizes understanding of instructions given Anti-Coag Initial Assessment Social Hx Patient Tobacco Use Status: Former Tobacco user alcohol intake: current Alcohol intake frequency: 0-2 drinks per day Cardiovascular Hx: HTN, NE (non stemi) and Arrhythmias (afib) Lung Disease HX: COPD Musculoskeletal Hx: Gout Blood Disorder Hx: Hyperlipidemia GI Hx: Hemorrhoids Hx: Kidney Disease (naren) and Prostate (prostate cancer) Cancer HX: Yes Psych. Illness/Depression: No Questionnaires HAS-BLED Does the patient had uncontrolled Hypertension?: No Does the patient have renal disease?: Yes Does the patient have liver disease?: No Does the patient have a history of stroke?: No Has the patient had major bleeding or predisposition to bleeding?: No Does the patient have labile INRs?: Yes Is the patient over 65 years of age?: Yes Is the patient on medications that gives them a predisposition to bleeding?: Yes Does the patient use alcohol?: Yes HAS-BLED Score: 5 CHADSVASC Age: 75 or over Gender: Male Does the patient have a history of CHF?: No Does the patient have a history of Hypertension?: Yes Does the patient have a history of Stroke/TIA/Thromboembolism?: No Does the patient have a history of Vascular Disease (prior NE, PAD or aortic plaque)?: Yes Does the patient have a history of Diabetes?: No CHADS VACS Score: 4 Haseeb Prediction Score Rsk VTE Active Cancer: Yes Previous VTE, excluding superficial vein thrombosis: No Reduced mobility: Yes Already known Thrombophilic Condition: No With-in last month Trauma and/or Surgery: No Elderly 70 year or older: No Heart and/or Respiratory Failure: No Acute Myocardial infarction and/or Ischemic Stroke: Yes Acute Infection and/or Rheumatologic Disorder: No Obesity (BMI 30 or greater): No Ongoing Hormonal Treatment: No Score: 7 Haseeb Score less than 4; Low Risk of VTE Haseeb Score 4 or greater; High Risk of VTE Coding Level of Care Code Est Patient Level 1 Diagnoses Current use of anticoagulant therapy Z79.01 Results AMB INR Fingerstick AMB INR Fingerstick 2.0 Last Edit by Gertrudis Simeon RN on 12/17/24 09:24 manual entry Assessment & Plan Assessment & Plan (1) Current use of anticoagulant therapy: Code(s): 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
--- OUTSIDE RECORDS SUMMARY | 2024-12-17 10:31 | XMS_ITS | Encounter Summary ---
Author Organization [facility] Address [address] [facility] [place] [address] Care Team Providers Care Fruit Press Operator Name Role Phone Jake Pepper MD Primary Care Provider Darleen vailable Encounter Details Date Type Department Care Team Description 03/27/2018 Release of Information Medical Records [address] [place] [id number] Abstract, Provider Social History Tobacco Use Types [...] on filedocumented in this encounter Care Teams Fruit Press Operator Relationship Specialty Start Date End Date Jake Pepper MD PCP - General Internal Medicine 02/24/18 documented as of this encounter
--- OUTSIDE RECORDS SUMMARY | 2024-12-17 10:31 | XMS_ITS | Encounter Summary ---
Author Organization [facility] Address [address] [place] [address] Care Team Providers Care Electrolysis Needle Operator Name Role Phone Jake Pepper MD Primary Care Provider Darleen vailable Encounter Details Date Type Department Care Team Description 03/27/2018 Business Doc Medical Records [address] [place] [address] Abstract, Provider Social History Tobacco Use Types [...] on filedocumented in this encounter Care Teams Electrolysis Needle Operator Relationship Specialty Start Date End Date Jake Pepper MD PCP - General Internal Medicine 02/24/18 documented as of this encounter
--- OUTSIDE RECORDS SUMMARY | 2024-12-17 10:31 | XMS_ITS ---
Author Organization Jake Pepper MD Address [address] [place] [phone] Care Team Providers Care Correction Officer Penitentiary Name Role Phone Jake Pepper Primary Care Provider [phone] REASON FOR VISIT New Refill Request Medications Medication SIG (Take, Route, Fr equency, Duration) Notes Start Date End Date Status Zolpidem Tartrate 5 MG TAKE 1 TABLET BY MOUTH DAILY AT BEDTIME Orally Once a day for 30 days 11/09/2024 Active Encounters Encounter Location Date Provider Diagnosis Jake Pepper MD [address] [place] [phone] 11/08/2024 Jake Pepper Insomnia G47.00 Assessments Encounter [...] Name:Jake Miller ier, 02/19/2025 07:15:00 AM, [address] [facility], [address], [place], [place], [phone], Provider Name:Jake Miller ier, 02/26/2025 11:00:00 AM, [address] [facility], [address], [place], [place], [phone], Progress Notes * Kalyan JUAREZ RDOB: [birth year] (84 yo M)Acc No.[id number]:11/08/2024 Patient:?Kalyan JUAREZ :1940???Age:84 Y???Sex:Male Address:[address] [place] [phone] * Refills? Refill Zolpidem Tartrate Tablet, 5 MG, Orally, 30, TAKE 1 TABLET BY MOUTH DAILY AT BEDTIME, Once a day, 30 days, Refills=0 * true * Date:? Generated for Mabel trotter/Ashish/Erikasmitting on:?12/17/2024 10:31 AM EDT
--- OUTSIDE RECORDS SUMMARY | 2024-12-17 10:31 | XMS_ITS ---
Author Organization Jake Pepper MD Address [address] [place] [phone] Care Team Providers Care Pipelines Laborer Name Role Phone Jake Pepper Primary Care Provider REASON FOR VISIT New Refill Request Medications Medication SIG (Take, Route, Fr equency, Duration) Notes Start Date End Date Status Zolpidem Tartrate 5 MG TAKE 1 TABLET BY MOUTH DAILY AT BEDTIME Orally Once a day for 30 days 12/07/2024 Active Encounters Encounter Location Date Provider Diagnosis Jake Pepper MD [address] [place] [phone] 12/07/2024 Jake Pepper Insomnia G47.00 Assessments Encounter [...] Name:Jake Miller ier, 02/19/2025 07:15:00 AM, [address] [facility], [address], [place], [place], [phone], Provider Name:Jake Miller ier, 02/26/2025 11:00:00 AM, [address] [facility], [address], [place], [place], [phone], Progress Notes * Kalyan JUAREZ RDOB: [birth year] (84 yo M)Acc No.[id number]:12/07/2024 Patient:?Kalyan JUAREZ :1940???Age:84 Y???Sex:Male Address:[address] [place] [phone] * Refills? Refill Zolpidem Tartrate Tablet, 5 MG, Orally, 30, TAKE 1 TABLET BY MOUTH DAILY AT BEDTIME, Once a day, 30 days, Refills=0 * true * Date:? Generated for Mabel trotter/Ashish/Erikasmitting on:?12/17/2024 10:31 AM EDT
--- OUTSIDE RECORDS SUMMARY | 2024-12-17 10:31 | XMS_ITS ---
Author Organization Jake Pepper MD Address [address] [place] [phone] Care Team Providers Care Application Internship Name Role Phone Jake Pepper Primary Care Provider [phone] REASON FOR VISIT New Refill Request Medications Medication SIG (Take, Route, Fr equency, Duration) Notes Start Date End Date Status Zolpidem Tartrate 5 MG TAKE 1 TABLET BY MOUTH DAILY AT BEDTIME Orally Once a day for 30 days 10/06/2024 Active Encounters Encounter Location Date Provider Diagnosis Jake Pepper MD [address] [place] [phone] 10/05/2024 Jake Pepper Insomnia G47.00 Assessments Encounter [...] 02/19/2025 07:15:00 AM, [address] [facility], [address], [place], [place], [phone], Provider Name:Jake Miller ier, 02/26/2025 11:00:00 AM, [address] [facility], [address], [place], [place], [phone], Progress Notes * Kalyan JUAREZ RDOB: [birth year] (83 yo M)Acc No.[id number]:10/05/2024 Patient:?Kalyan Juarez :1940???Age:83 Y???Sex:Male Address:[address] [place] [phone] * Refills? Refill Zolpidem Tartrate Tablet, 5 MG, Orally, 30, TAKE 1 TABLET BY MOUTH DAILY AT BEDTIME, Once a day, 30 days, Refills=0 * true * Date:? Generated for Mabel trotter/Ashish/Erikasmitting on:?12/17/2024 10:31 AM EDT
== END 2024-12-17 09:36 | disposition home or self-care (01) ==
LOC: HO.ACS 09:08
PROVIDERS: PCP Internal Medicine; Visit Provider Internal Medicine
DX: Z79.01 Long term (current) use of anticoagulants (principal)

== ENCOUNTER → 2024-12-17 09:08 | Outpatient (BNVA) | payer MEDICARE, SELFPAY | PROVIDERS: PCP Internal Medicine; Visit Provider Internal Medicine | DX: I48.0 Paroxysmal atrial fibrillation (principal); Z79.01 Long term (current) use of anticoagulants; Z51.81 Encounter for therapeutic drug level monitoring | CPT/HCPCS: 85610; 99211 ==

== ENCOUNTER 2024-12-18 09:35 | Outpatient (AMB) | payer MEDICARE, SELFPAY ==
[2024-12-18 09:36] VITALS: BP 134/78; PULSE 75; O2SAT 93; BMI 28.2
--- NOTE | 2024-12-18 09:36 | A.OFFVIS_ITS ---
Vital Signs 12/18/24 09:36 Height 5 ft 7 in Weight 180 lb BMI 28.2 BP 134/78 Blood Pressure Location Rt brachial Position Sitting Pulse 75 Pulse Source Doppler Pulse Oximetry (%) 93 Oxygen Delivery Method Nasal Cannula Oxygen Flow Rate 2 Intake Visit Reasons: COPD Allergies pneumococcal vaccine [PNEUMOCOCCAL VACCINE] Allergy (Intermediate, Verified 12/17/24 09:14) RASH amoxicillin [From Augmentin] Allergy (Unknown, Verified 12/17/24 09:14) Swelling clavulanic acid [From Augmentin] Allergy (Unknown, Verified 12/17/24 09:14) Swelling theophylline Adverse Reaction (Intermediate, Verified 12/17/24 09:14) Loss of Appetite HPI HPI COPD: Details: 84-year-old gentleman, greater than 50 pack-year smoker, quit 2018 followed for moderate to severe COPD supplementary oxygen at 2 L dependent and dyspnea on exertion with suboptimal compliance with oxygen therapy.? He continues on DuoNebs, and albuterol MDI with reasonable control of his symptoms. He was not able to afford Anoro and he was not able to tolerate theophylline secondary to GI side effects. His lower extremity edema is well controlled on current dose of Lasix 60 mg daily. He does complain of slowly worsening productive cough. [facility]LY [facility], [facility] Medical History High cholesterol Gout Hypertension Essential hypertension Prostate cancer Pulmonary nodules COPD (chronic obstructive pulmonary disease) Surgical History History of spinal surgery Family History Father No problems noted. Mother No problems noted. 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 Current occupational exposures/hazards: No Review of Systems Const Denies daytime sleepiness, Denies excessive sweating, Denies fatigue, Denies fever(s), Denies lethargy, Denies malaise, Denies night sweats, Denies snoring and Denies weight loss Eyes Denies blurry vision and Denies itchy eyes ENT Denies nasal congestion, Denies post nasal drip, Denies sinus pain, Denies sinus pressure and Denies other ( Thrush) Card Denies chest pain, Denies pedal edema, Denies dyspnea, Denies orthopnea and Denies paroxysmal nocturnal dyspnea Resp Reports cough, Denies hemoptysis, Reports excessive phlegm production, Denies dyspnea, Denies snoring and Denies wheezing GI Denies abdominal pain and Denies heartburn Musc Denies myalgias, Denies arthralgias and Denies joint swelling Skin/Breast Denies rash Neuro Denies memory loss and Denies seizure-like activity Psych Denies abnormal sleep pattern, Denies anxiety and Denies memory loss Endo Denies excessive sweating, Denies fatigue and Denies heat intolerance Alexander/Lymph Denies easy bruising Aller/Immun Denies itchy eyes, Denies seasonal rhinorrhea and Denies wheezing Physical Exam Vital Signs: Last Vital Signs Pulse 75 12/18/24 09:36 BP 134/78 12/18/24 09:36 Pulse Ox 93 12/18/24 09:36 Oxygen Delivery Method Nasal Cannula 12/18/24 09:36 Oxygen Flow Rate 2 12/18/24 09:36 BMI result Body Mass Index 28.2 Const General: no acute distress and alert Nutritional Appearance: not obese Orientation/consciousness: Other orientation findings ( oriented) HEENT Head: Yes atraumatic Eyes General: appearance normal, both eyes and all related structures Sclerae: sclerae normal EOM: EOMs intact bilaterally Neck Neck: Yes supple Lymphatic: no lymphadenopathy noted Resp Effort & Inspection: normal respiratory effort and no use of accessory muscles Auscultation: clear to auscultation bilaterally Cardio Rate: regular rate Rhythm: regular rhythm Heart sounds: no gallops, no murmurs and no rubs Skin General skin exam: other ( warm) Extrem General: No clubbing, No cyanosis and Yes edema (Trace bilateral) Assessment & Plan Assessment & Plan (1) COPD (chronic obstructive pulmonary disease): Code(s): J44.9 - Chronic obstructive pulmonary disease, unspecified Category: Medical Plan: Slowly worsening control on duo nebs and albuterol MDI. Can not afford Anoro and can not tolerate theophylline. Will start on Yupelri. Will treat worsening cough with a course of azithromycin. (2) Supplemental oxygen dependent: Code(s): Z99.81 - Dependence on supplemental oxygen Category: Medical Plan: Continue supplemental oxygen to maintain O2 saturation of 89-93%. (3) Orthopnea: Code(s): R06.01 - Orthopnea Category: Medical Plan: Well controlled current regimen Lasix 60 mg daily. Continue current regimen. Medications: New azithromycin For 250 mg dose pack: take 500 mg today (day 1), then 250 mg for 4 days (days 2-5) PO 6 tabs 0RF Coding Level of Care Code Est Pt Level 4 (04175) Complex EM visit Add On G2211 Diagnoses COPD (chronic obstructive pulmonary disease) J44.9 Supplemental oxygen dependent Z99.81 Orthopnea R06.01
--- OUTSIDE RECORDS SUMMARY | 2024-12-18 10:32 | XMS_ITS ---
Author Organization Jake Pepper MD Address [address] [place] [phone] Care Team Providers Care Autoglazier Name Role Phone Jake Pepper Primary Care Provider REASON FOR VISIT New Refill Request Medications Medication SIG (Take, Route, Fr equency, Duration) Notes Start Date End Date Status Zolpidem Tartrate 5 MG TAKE 1 TABLET BY MOUTH DAILY AT BEDTIME Orally Once a day for 30 days 11/09/2024 Active Encounters Encounter Location Date Provider Diagnosis Jake Pepper MD [address] [place] [phone] 11/08/2024 Jake Pepper Insomnia G47.00 Assessments Encounter [...] Name:Jake Miller ier, 02/19/2025 07:15:00 AM, [address] [facility], [address], [place], [place], [phone], Provider Name:Jake Miller ier, 02/26/2025 11:00:00 AM, [address] [facility], [address], [place], [place], [phone], Progress Notes * Kalyan JUAREZ RDOB: [birth year] (84 yo M)Acc No.[id number]:11/08/2024 Patient:?Kalyan JUAREZ :1940???Age:84 Y???Sex:Male Address:[address] [place] [phone] * Refills? Refill Zolpidem Tartrate Tablet, 5 MG, Orally, 30, TAKE 1 TABLET BY MOUTH DAILY AT BEDTIME, Once a day, 30 days, Refills=0 * true * Date:? Generated for Mabel trotter/Ashish/Erikasmitting on:?12/18/2024 10:31 AM EDT
--- OUTSIDE RECORDS SUMMARY | 2024-12-18 10:32 | XMS_ITS ---
Author Organization Jake Pepper MD Address [address] [place] [phone] Care Team Providers Care Tripe Scraper Name Role Phone Jake Pepper Primary Care Provider [phone] REASON FOR VISIT New Refill Request Medications Medication SIG (Take, Route, Fr equency, Duration) Notes Start Date End Date Status Zolpidem Tartrate 5 MG TAKE 1 TABLET BY MOUTH DAILY AT BEDTIME Orally Once a day for 30 days 10/06/2024 Active Encounters Encounter Location Date Provider Diagnosis Jake Pepper MD [address] [place] [phone] 10/05/2024 Jake Pepper Insomnia G47.00 Assessments Encounter [...] Name:Jake Miller ier, 02/19/2025 07:15:00 AM, [address] [facility], [address], [place], [place], [phone], Provider Name:Jake Miller ier, 02/26/2025 11:00:00 AM, [address] [facility], [address], [place], [place], [phone], Progress Notes * Kalyan JUAREZ RDOB: [birth year] (83 yo M)Acc No.[id number]:10/05/2024 Patient:?Kalyan Juarez :1940???Age:83 Y???Sex:Male Address:[address] [place] [phone] * Refills? Refill Zolpidem Tartrate Tablet, 5 MG, Orally, 30, TAKE 1 TABLET BY MOUTH DAILY AT BEDTIME, Once a day, 30 days, Refills=0 * true * Date:? Generated for Mabel trotter/Ashish/Erikasmitting on:?12/18/2024 10:31 AM EDT
--- OUTSIDE RECORDS SUMMARY | 2024-12-18 10:32 | XMS_ITS | Encounter Summary ---
Author Organization [facility] Address [address] [facility] [place] [address] Care Team Providers Care Forest Products Gatherer Name Role Phone Jake Pepper MD Primary Care Provider Darleen vailable Encounter Details Date Type Department Care Team Description 03/27/2018 Business Doc Medical Records [address] [place] [address] Abstract, Provider Social History Tobacco Use Types [...] on filedocumented in this encounter Care Teams Forest Products Gatherer Relationship Specialty Start Date End Date Jake Pepper MD PCP - General Internal Medicine 02/24/18 documented as of this encounter
--- OUTSIDE RECORDS SUMMARY | 2024-12-18 10:32 | XMS_ITS ---
Author Organization Jake Pepper MD Address [address] [place] [phone] Care Team Providers Care Internet Programmer Name Role Phone Jake Pepper Primary Care Provider REASON FOR VISIT New Refill Request Medications Medication SIG (Take, Route, Fr equency, Duration) Notes Start Date End Date Status Zolpidem Tartrate 5 MG TAKE 1 TABLET BY MOUTH DAILY AT BEDTIME Orally Once a day for 30 days 12/07/2024 Active Encounters Encounter Location Date Provider Diagnosis Jake Pepper MD [address] [place] [phone] 12/07/2024 Jake Pepper Insomnia G47.00 Assessments Encounter [...] Miller ier, 02/19/2025 07:15:00 AM, [address] [facility], [address], [place], [place], [phone], Provider Name:Jake Miller ier, 02/26/2025 11:00:00 AM, [address] [facility], [address], [place], [place], [phone], Progress Notes * Kalyan JUAREZ RDOB: [birth year] (84 yo M)Acc No.[id number]:12/07/2024 Patient:?Kalyan JUAREZ :1940???Age:84 Y???Sex:Male Address:[address] [place] [phone] * Refills? Refill Zolpidem Tartrate Tablet, 5 MG, Orally, 30, TAKE 1 TABLET BY MOUTH DAILY AT BEDTIME, Once a day, 30 days, Refills=0 * true * Date:? Generated for Mabel trotter/Ashish/Erikasmitting on:?12/18/2024 10:31 AM EDT
--- OUTSIDE RECORDS SUMMARY | 2024-12-18 10:32 | XMS_ITS | Clinical Summary ---
Author Organization [facility] Address [address] [facility] [place] [address] Care Team Providers Care Studio Engineer Name Role Phone Jake Pepper MD Primary Care Provider Darleen vailable Allergies No known active allergies Medications Medication Sig Dispensed Refills Start Date End Date Status VIAGRA 50 MG OR TABS 1 TABLET DAILY NEEDED 0 01/07/2008 Active SB LOW DOSE ASA EC 81 MG OR TBEC 1 TABLET DAILY 0 01/07/2008 Active MULTI-VITAMIN OR 1 tablet daily 0 01/07/2008 Acti ve lisinopril-hydrochloro thiazide (PRINZIDE,ZESTORETIC) 10-12.5 MG per tablet Take 1 tablet by mouth daily. 0 Active tamsulosin (FLOMAX) 0.4 MG 24 hr capsule 1 capsule 2 times daily. 2 06/07/2019 Active oxybutynin (DITROPAN-XL) 5 MG 24 hr tablet Take 5 mg by mouth 2 times daily. 0 Active amlodipine (NORVASC) 2.5 MG tablet daily. 2 07/21/2019 Active atorvastatin (LIPITOR) 40 MG tablet daily. 5 06/14/2019 Active ANORO ELLIPTA 62.5-25 MCG/INH AEROSOL POWDER,BREATH ACTIVATED 1 Puff daily. 6 07/12/2019 Active Active Problems Problem Noted Date BPH 01/07/2008 Hypercholesteremia 01/07/2008 Erectile dysfunction 01/07/2008 Urinary incontinence 01/07/2008 Immunizations Name Administration Dates Next Due Influenza (> 6 Months) 07/12/2008 Pneumoccoccal(Adult) Polysaccharide PPSV23 07/12 TD (STATE SUPPLIED FOR ADULTS AND CHILDREN) 01/06 Social History Tobacco Use Types Packs/Day Years Used Date Smoking Tobacco: Former Cigarettes 1.5 50 Smokeless Tobacco: Former Alcohol Use Standard Drinks/Week Comments Not Asked 0 (1 standard drink = 0.6 oz pur e alcohol) Sex Assigned at Date Recorded Not on file Last Filed Vital Signs Vital Sign Reading Time Taken Comments Blood Pressure 130/70 2019 3:05 PM EST Pulse 84 2019 3:05 PM EST Temperature 36.8 ??C (98.2 ??F) 07/16/2018 2:47 PM ED T Respiratory Rate 13 07/16/2018 2:47 PM EDT Oxygen Saturation 97% 07/12/2008 9:57 AM EDT Inhaled Oxygen Concentration - - Weight 86.6 kg (191 lb) 2019 3:05 PM EST Height 167.6 cm (5' 6 ) 07/16/2018 2:47 PM EDT Body Mass Index 30.83 07/16/2018 2:47 PM EDT Plan of Treatment Health Maintenance Due Date Last Done Comments Covid-19 Vaccine (#1) 04/12/1941 CHOLESTEROL SCREENING 1961 SHINGLES VACCINE (1 of 2) 1991 DTAP/TDAP/TD (1 - Tdap) 01/31/2008 01/30/2008 PNEUMOCOCCAL VACCINE (2 - PCV) 07/12/2009 07/12/2008 INFLUENZA (#1) 2024 08/03/2019, 07/09, 07/10/2018, Additional history exists BMI CHECK/ADVISE 10/07/2024 2019, 08/13/2019 Care Teams Studio Engineer Relationship Specialty Start Date End Date Jake Pepper MD PCP - General Internal Medicine 02/24/18
== END 2024-12-18 09:54 | disposition home or self-care (01) ==
LOC: HO.HPS 09:35
PROVIDERS: PCP Internal Medicine; Visit Provider Internal Medicine Pulmonary Disease
DX: J44.9 Chronic obstructive pulmonary disease, unspecified (principal); Z99.81 Dependence on supplemental oxygen; R06.01 Orthopnea
CPT/HCPCS: 99214; G2211

== ENCOUNTER → 2024-12-18 09:35 | Outpatient (BNVA) | payer MEDICARE, SELFPAY | PROVIDERS: PCP Internal Medicine; Visit Provider Internal Medicine Pulmonary Disease | DX: J44.9 Chronic obstructive pulmonary disease, unspecified (principal); R06.01 Orthopnea; R91.8 Other nonspecific abnormal finding of lung field; Z99.81 Dependence on supplemental oxygen | CPT/HCPCS: 99212 ==

== ENCOUNTER 2025-01-07 09:27 | Outpatient (AMB) | payer MEDICARE, SELFPAY ==
[2025-01-07 09:38] LABS: Prothrombin Time Whole Bld POC 26.4 sec (11.1-13.5); ~PT, ~INR - Anti Coag Clinic 2.2 (0.9-1.1)
--- NOTE | 2025-01-07 09:47 | MHC.OFFVISCO ---
Intake Intake Visit Reasons: Anticoagulation Allergies pneumococcal vaccine [PNEUMOCOCCAL VACCINE] Allergy (Intermediate, Verified 01/07/25 09:30) RASH amoxicillin [From Augmentin] Allergy (Unknown, Verified 01/07/25 09:30) Swelling clavulanic acid [From Augmentin] Allergy (Unknown, Verified 01/07/25 09:30) Swelling theophylline Adverse Reaction (Intermediate, Verified 01/07/25 09:30) Loss of Appetite Medication List - Last Reconciled 01/07/25 by Gertrudis Simeon RN albuterol sulfate 90 mcg/actuation 2 puffs PO Q2H PRN atorvastatin 40 mg PO DAILY carvedilol 6.25 mg PO BID cyanocobalamin (vitamin B-12) 1,000 mcg PO DAILY fluorouracil 5% 1 appl topical DAILY furosemide 60 mg (1.5 x 40 mg) PO DAILY ipratropium-albuterol 0.5 mg-3 mg(2.5 mg base)/3 mL 3 mL inhalation Q6H 30 days loperamide (Imodium A-D) PO PRN multivitamin (One Daily Multivitamin tablet) 1 tab PO DAILY revefenacin (Yupelri) 175 mcg (3 mL) inhalation DAILY tamsulosin 0.4 mg PO BID 90 days warfarin See Protocol 6mg X6 days and 4.5mg X1 day orally as directed; Take medication as directed per anticoagulation clinic based on your INR blood test results, per anticoag clinic, dose is still in adjustment phase taking 6 mg X6 days and 4.5mg X1 day. 30 days Nursing Note pt comes with walking with cane, wears hearing aid INR: 2.2 in therapeutic range Medications and supplements reviewed No changes in health, diet, medications, or supplements, Denies any signs and symptoms of bleeding or bruising or clotting. Bleeding, bruising, clotting discussed Nutritional guidance given Dose: KEEP SAME 4.5MG X 1 DAY/ 6MG X 6 DAYS F/U INR: 1 MONTH OR NEEDED FOR CATARACT patient verbalizes understanding of instructions given Anti-Coag Initial Assessment Social Hx Patient Tobacco Use Status: Former Tobacco user alcohol intake: current Alcohol intake frequency: 0-2 drinks per day Cardiovascular Hx: HTN, GA (non stemi) and Arrhythmias (afib) Lung Disease HX: COPD Musculoskeletal Hx: Gout Blood Disorder Hx: Hyperlipidemia GI Hx: Hemorrhoids Hx: Kidney Disease (naren) and Prostate (prostate cancer) Cancer HX: Yes Psych. 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
--- OUTSIDE RECORDS SUMMARY | 2025-01-07 09:55 | XMS_ITS ---
Author Organization Jake Pepper MD Address [address] [place] [phone] Care Team Providers Care Congregational Care Pastor Name Role Phone Jake Pepper Primary Care Provider [phone] REASON FOR VISIT New Refill Request Medications Medication SIG (Take, Route, Fr equency, Duration) Notes Start Date End Date Status Zolpidem Tartrate 5 MG TAKE 1 TABLET BY MOUTH DAILY AT BEDTIME Orally Once a day for 30 days 01/07/2025 Active Encounters Encounter Location Date Provider Diagnosis Jake Pepper MD [address] [place] [phone] 01/06/2025 Jake Pepper Insomnia G47.00 Assessments Encounter Date Diagnosis (ICD Code) Assessment Notes Treatment Notes Treatment Clinical Notes Section Notes 01/06/2025 Insomnia (ICD-10 - G47.00) Plan Of Treatment Medication Medication Name Sig Start Date Stop Date Notes Zolpidem Tartrate 5 MG TAKE 1 TABLET BY MOUTH DAILY AT BEDTIME Orally Once a day for 30 days 01/07/2025 Next Appt Details Provider Name:Jake Miller ier, 01/19/2025 08:45:00 AM, [address] [facility], [address], [place], [place], [phone], Provider Name:Jake Miller ier, 02/19/2025 07:15:00 AM, [address] [place] [address], [address], [place], [place], [phone], Provider Name:Jake Miller ier, 02/26/2025 11:00:00 AM, [address] [place] [address], Suite [facility], [place], [place], [phone], Progress Notes * Kalyan JUAREZ RDOB: [birth year] (84 yo M)Acc No.[id number]:01/06/2025 Patient:?Kalyan JUAREZ :1940???Age:84 Y???Sex:Male Address:[address] [place], [place] [address] [address] * Refills? Refill Zolpidem Tartrate Tablet, 5 MG, Orally, 30, TAKE 1 TABLET BY MOUTH DAILY AT BEDTIME, Once a day, 30 days, Refills=0 * true * Date:? Generated for Mabel trotter/Ashish/eTransmitting on:?01/07/2025 09:55 AM EDT
--- OUTSIDE RECORDS SUMMARY | 2025-01-07 09:55 | XMS_ITS ---
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 Role Phone Jake Pepper Primary Care Provider REASON FOR VISIT New Refill Request Medications Medication SIG (Take, Route, Fr equency, Duration) Notes Start Date End Date Status Zolpidem Tartrate 5 MG TAKE 1 TABLET BY MOUTH DAILY AT BEDTIME Orally Once a day for 30 days 12/07/2024 Active Encounters Encounter Location Date Provider Diagnosis Jake Pepper MD [address] [place] [phone] 12/07/2024 Jake Pepper Insomnia G47.00 Assessments Encounter [...] Name:Jake Miller ier, 01/19/2025 08:45:00 AM, [address] [facility], [address], [place], [place], [phone], Provider Name:Jake Miller ier, 02/19/2025 07:15:00 AM, [address] [place] [address], [address], [place], [place], [phone], Provider Name:Jake Miller ier, 02/26/2025 11:00:00 AM, [address] [place] [address], Suite [facility], [place], [place], [phone], Progress Notes * Kalyan JUAREZ RDOB: [birth year] (84 yo M)Acc No.[id number]:12/07/2024 Patient:?Kalyan JUAREZ :1940???Age:84 Y???Sex:Male Address:[address] [place], [place] [address] [id number] * Refills? Refill Zolpidem Tartrate Tablet, 5 MG, Orally, 30, TAKE 1 TABLET BY MOUTH DAILY AT BEDTIME, Once a day, 30 days, Refills=0 * true * Date:? Generated for Mabel trotter/Ashish/eTransmitting on:?01/07/2025 09:55 AM EDT
--- OUTSIDE RECORDS SUMMARY | 2025-01-07 09:56 | XMS_ITS ---
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 Name Role Phone Jake Pepper Primary Care Provider REASON FOR VISIT [facility] Risk Codes 01/19 Encounters Encounter Location Date Provider Diagnosis Jake Pepper MD [address] [place], [place] [phone] 12/21/2024 Jake Pepper Plan Of Treatment Next Appt Details Provider Name:Jake schmidt, 01/19/2025 08:45:00 AM, [address] [facility], [address], [place], [place], [phone], Provider Name:Jake schmidt, 02/19/2025 07:15:00 AM, [address], [address], [place], [phone], Provider Name:Jakebernabe schmidt, 02/26/2025 11:00:00 AM, [address], [address], [place], [phone], Progress Notes * Kalyan JUAREZ RDOB: [birth year] (84 yo M)Acc No.[id number]:12/21/2024 Patient:?Kalyan JUAREZ :1940???Age:84 Y???Sex:Male Address:[address] [place] [address] [place] [phone] * true * Date:? Generated for Mabel trotter/Ashish/eTransmitting on:?01/07/2025 09:55 AM EDT
== END 2025-01-07 09:52 | disposition home or self-care (01) ==
LOC: HO.ACS 09:27
PROVIDERS: PCP Internal Medicine; Visit Provider Internal Medicine Medical Oncology
DX: Z79.01 Long term (current) use of anticoagulants (principal)

== ENCOUNTER → 2025-01-07 09:27 | Outpatient (BNVA) | payer MEDICARE, SELFPAY | PROVIDERS: PCP Internal Medicine; Visit Provider Internal Medicine Medical Oncology | DX: I48.0 Paroxysmal atrial fibrillation (principal); Z51.81 Encounter for therapeutic drug level monitoring; Z79.01 Long term (current) use of anticoagulants | CPT/HCPCS: 85610; 99211 ==

== ENCOUNTER 2025-02-04 09:42 | Outpatient (AMB) | payer MEDICARE, SELFPAY ==
[2025-02-04 10:00] LABS: Prothrombin Time Whole Bld POC 39.1 sec (11.1-13.5); ~PT, ~INR - Anti Coag Clinic 3.3 (0.9-1.1)
--- NOTE | 2025-02-04 10:09 | MHC.OFFVISCO ---
Intake Intake Visit Reasons: Anticoagulation Allergies pneumococcal vaccine [PNEUMOCOCCAL VACCINE] Allergy (Intermediate, Verified 02/04/25 09:53) RASH amoxicillin [From Augmentin] Allergy (Unknown, Verified 02/04/25 09:53) Swelling clavulanic acid [From Augmentin] Allergy (Unknown, Verified 02/04/25 09:53) Swelling theophylline Adverse Reaction (Intermediate, Verified 02/04/25 09:53) Loss of Appetite Medication List - Last Reconciled 02/04/25 by Gertrudis Simeon RN albuterol sulfate 90 mcg/actuation 2 puffs PO Q2H PRN atorvastatin 40 mg PO DAILY carvedilol 6.25 mg PO BID cyanocobalamin (vitamin B-12) 1,000 mcg PO DAILY fluorouracil 5% 1 appl topical DAILY furosemide 60 mg (1.5 x 40 mg) PO DAILY ipratropium-albuterol 0.5 mg-3 mg(2.5 mg base)/3 mL 3 mL inhalation Q6H 30 days loperamide (Imodium A-D) PO PRN multivitamin (One Daily Multivitamin tablet) 1 tab PO DAILY revefenacin (Yupelri) 175 mcg (3 mL) inhalation DAILY tamsulosin 0.4 mg PO BID 90 days warfarin See Protocol 6mg X6 days and 4.5mg X1 day orally as directed; Take medication as directed per anticoagulation clinic based on your INR blood test results, per anticoag clinic, dose is still in adjustment phase taking 6 mg X6 days and 4.5mg X1 day. 30 days zolpidem 5 mg PO BEDTIME PRN Nursing Note INR: 3.3 out of therapeutic range- has not had usual greens - and has eaten more grapes than usual pt canceld his cataract surgery Medications and supplements reviewed No changes in health, diet, medications, or supplements, Denies any signs and symptoms of bleeding or bruising or clotting. Bleeding, bruising, clotting discussed Nutritional guidance given -greens and blueberries Dose: keep same dose 4.5mg x 1 day/6mg x 6 days F/U INR: 4weeks Patient and verbalizes understanding of instructions given Anti-Coag Initial Assessment Social Hx Patient Tobacco Use Status: Former Tobacco user alcohol intake: current Alcohol intake frequency: 0-2 drinks per day Cardiovascular Hx: HTN, [place] (non stemi) and Arrhythmias (afib) Lung Disease HX: COPD Musculoskeletal Hx: Gout Blood Disorder Hx: Hyperlipidemia GI Hx: Hemorrhoids Hx: Kidney Disease (naren) and Prostate (prostate cancer) Cancer HX: Yes Psych. Illness/Depression: No Coding Level of Care Code Est Patient Level 1 Diagnoses Current use of anticoagulant therapy Z79.01 Assessment & Plan Assessment & Plan (1) Current use of anticoagulant therapy: Code(s): Z79.01 - senior care (current) use of anticoagulants Category: Medical
== END 2025-02-04 10:12 | disposition home or self-care (01) ==
LOC: HO.ACS 09:42
PROVIDERS: PCP Internal Medicine; Visit Provider Internal Medicine Medical Oncology
DX: Z79.01 Long term (current) use of anticoagulants (principal)

== ENCOUNTER → 2025-02-04 09:42 | Outpatient (BNVA) | payer MEDICARE, SELFPAY | PROVIDERS: PCP Internal Medicine; Visit Provider Internal Medicine Medical Oncology | DX: I48.0 Paroxysmal atrial fibrillation (principal); Z79.01 Long term (current) use of anticoagulants; Z51.81 Encounter for therapeutic drug level monitoring | CPT/HCPCS: 85610; 99211 ==

== ENCOUNTER 2025-02-19 10:30 | Outpatient (REF) | payer MEDICARE, SELFPAY ==
[2025-02-19 10:33] LABS: MANUAL DIFF FLAG NO
--- OUTSIDE RECORDS SUMMARY | 2025-02-19 10:55 | XMS_ITS | Patient Health Record ---
Author Organization Jake Pepper MD Address [address] [place], [place] [id number] Care Team Providers Care Adjunct Writing Instructor Name Role Phone Jake Pepper Primary Care Provider Allergies Allergen (clinical drug ingredient) Drug/Non Drug Allergy documented on EMR Reaction Allergy Type Onset Date Status Lamisil rash Drug Allergy Active Vaccine product containing Streptococcus pneumoniae antigen (medicinal product) Pneumovax (uncoded) local reaction redness Allergy Active Results Component Value Reference Range Notes Liver Panel Reviewed date:08/20/2024 03:17:01 PM Interpretation: Performing Lab:[facility], [address] [place] [phone] Notes/Report: Bilirubin Total 0.7 0.0-1.0 mg/dL Bilirubin Direct 0.3 0.0-0.5 mg/dL Aspartate Amino Transferase 42 5-37 U/L Alanine Aminotransferase 24 0-40 U/L Total Protein 7.3 6.5-8.0 g/dL Albumin Level 3.9 3.5-5.0 g/dL Alkaline Phosphatase 94 39-117 U/L Lipid Panel with Reflex Reviewed date:08/20/2024 03:16:31 PM Interpretation: Performing Lab:[facility], [address] [place] [phone] Notes/Report: Triglycerides 135 <150 mg/dL Desirable Triglyceride: less than 150 mg/dL Borderline High Triglyceride 150-199 mg/dL High Triglyceride: 200-499 mg/dL Very High Triglyceride: greater than or equal to 5OO mg/dL Cholesterol 143 <200 mg/dL Desirable Cholesterol: less than 200 mg/dL Borderline High Cholesterol: 200-239 mg/dL High Cholesterol: greater than 239 mg/dL LDL Cholesterol Calculated 69 <100 mg/dL Desirable LDL: less than 100 mg/dL Near Optimal/Above Optimal LDL: 110-129 mg/dL Borderline High LDL: 130-159 mg/dL High LDL: 160-189 mg/dL Very High LDL: greater than or equal to 190 mg/dL HDL Cholesterol 47 >40 mg/dL Desirable HDL: greater than 40 mg/dL Note: This HDL assay may give artificially low results in patients with liver disease. Occult Blood, Stool, Guaiac Reviewed date:02/24/2024 11:57:07 AM Interpretation:Negative Performing Lab: Notes/Report: Negative INR WHOLE BLOOD POC Reviewed date:03/05/2024 12:36:41 PM Interpretation: Performing Lab:[facility], [address] [place] [phone] Notes/Report: PT, INR - [facility] 3.1 0.9-1.1 METER #: [id number] INTERNATIONAL NORMALIZED RATIO (INR) REFERENCE RANGES Reference Range For patients not on anticoagulant therapy: 0.9 - 1.1 INR ranges for oral anticoagulant therapy: For prevention and treatment of venous thrombosis and pulmonary embolism: 2.0 - 3.0 For acute myocardial infarction with aspirin therapy: 2.0 - 3.0 For acute myocardial infarction without aspirin therapy: 3.0 - 4.0 For patients with mechanical prosthetic heart valves: 2.5 - 3.5 Prothrombin Time Whole Bld P OC Reviewed date:03/05/2024 01:47:57 PM Interpretation: Performing Lab:[facility], [address] [place] [phone] Notes/Report: Prothrombin Time Whole Bld POC 37.0 11.1-13.5 sec INR WHOLE BLOOD POC Reviewed date:03/26/2024 12:01:11 PM Interpretation: Performing Lab:[facility], [address] [place] [phone] Notes/Report: PT, INR - Anti Coag Clinic 2.6 0.9-1.1 METER #: [id number] INTERNATIONAL NORMALIZED RATIO (INR) REFERENCE RANGES Reference Range For patients not on anticoagulant therapy: 0.9 - 1.1 INR ranges for oral anticoagulant therapy: For prevention and treatment of venous thrombosis and pulmonary embolism: 2.0 - 3.0 For acute myocardial infarction with aspirin therapy: 2.0 - 3.0 For acute myocardial infarction without aspirin therapy: 3.0 - 4.0 For patients with mechanical prosthetic heart valves: 2.5 - 3.5 Prothrombin Time Whole Bld P OC Reviewed date:03/26/2024 05:06:03 PM Interpretation: Performing Lab:[facility], [address] [place] [phone] Notes/Report: Prothrombin Time Whole Bld POC 31.7 11.1-13.5 sec INR WHOLE BLOOD POC Reviewed date:04/16/2024 12:35:19 PM Interpretation: Performing Lab:[facility], [address] [place] [phone] Notes/Report: PT, INR - Anti Coag Clinic 2.5 0.9-1.1 METER #: [id number] INTERNATIONAL NORMALIZED RATIO (INR) REFERENCE RANGES Reference Range For patients not on anticoagulant therapy: 0.9 - 1.1 INR ranges for oral anticoagulant therapy: For prevention and treatment of venous thrombosis and pulmonary embolism: 2.0 - 3.0 For acute myocardial infarction with aspirin therapy: 2.0 - 3.0 For acute myocardial infarction without aspirin therapy: 3.0 - 4.0 For patients with mechanical prosthetic heart valves: 2.5 - 3.5 Prothrombin Time Whole Bld P OC Reviewed date:04/16/2024 12:35:11 PM Interpretation: Performing Lab:[facility], [address] [place] [phone] Notes/Report: Prothrombin Time Whole Bld POC 29.5 11.1-13.5 sec INR WHOLE BLOOD POC Reviewed date:05/14/2024 10:10:53 AM Interpretation: Performing Lab:[facility], [address] [place] [phone] Notes/Report: PT, INR - Anti Coag Clinic 3.9 0.9-1.1 METER #: [id number] INTERNATIONAL NORMALIZED RATIO (INR) REFERENCE RANGES Reference Range For patients not on anticoagulant therapy: 0.9 - 1.1 INR ranges for oral anticoagulant therapy: For prevention and treatment of venous thrombosis and pulmonary embolism: 2.0 - 3.0 For acute myocardial infarction with aspirin therapy: 2.0 - 3.0 For acute myocardial infarction without aspirin therapy: 3.0 - 4.0 For patients with mechanical prosthetic heart valves: 2.5 - 3.5 Prothrombin Time Whole Bld P OC Reviewed date:05/14/2024 10:10:44 AM Interpretation: Performing Lab:[facility], [address] [place] [phone] Notes/Report: Prothrombin Time Whole Bld POC 46.7 11.1-13.5 sec INR WHOLE BLOOD POC Reviewed date:05/28/2024 12:29:45 PM Interpretation: Performing Lab:[facility], [address] [place] [phone] Notes/Report: PT, INR - Anti Coag Clinic 2.3 0.9-1.1 METER #: [id number] INTERNATIONAL NORMALIZED RATIO (INR) REFERENCE RANGES Reference Range For patients not on anticoagulant therapy: 0.9 - 1.1 INR ranges for oral anticoagulant therapy: For prevention and treatment of venous thrombosis and pulmonary embolism: 2.0 - 3.0 For acute myocardial infarction with aspirin therapy: 2.0 - 3.0 For acute myocardial infarction without aspirin therapy: 3.0 - 4.0 For patients with mechanical prosthetic heart valves: 2.5 - 3.5 Prothrombin Time Whole Bld P OC Reviewed date:05/28/2024 12:29:33 PM Interpretation: Performing Lab:[facility], [address] [place] [phone] Notes/Report: Prothrombin Time Whole Bld POC 27.5 11.1-13.5 sec INR WHOLE BLOOD POC Reviewed date:06/25/2024 11:32:23 AM Interpretation: Performing Lab:[facility], [address] [place] [phone] Notes/Report: PT, INR - Anti Coag Clinic 3.2 0.9-1.1 METER #: [id number] INTERNATIONAL NORMALIZED RATIO (INR) REFERENCE RANGES Reference Range For patients not on anticoagulant therapy: 0.9 - 1.1 INR ranges for oral anticoagulant therapy: For prevention and treatment of venous thrombosis and pulmonary embolism: 2.0 - 3.0 For acute myocardial infarction with aspirin therapy: 2.0 - 3.0 For acute myocardial infarction without aspirin therapy: 3.0 - 4.0 For patients with mechanical prosthetic heart valves: 2.5 - 3.5 Prothrombin Time Whole Bld P OC Reviewed date:06/25/2024 12:15:50 PM Interpretation: Performing Lab:[facility], [address] [place] [phone] Notes/Report: Prothrombin Time Whole Bld POC 38.6 11.1-13.5 sec INR WHOLE BLOOD POC Reviewed date:07/09/2024 11:05:08 AM Interpretation: Performing Lab:[facility], [address] [place] [phone] Notes/Report: PT, INR - Anti Coag Clinic 2.3 0.9-1.1 METER #: [id number] INTERNATIONAL NORMALIZED RATIO (INR) REFERENCE RANGES Reference Range For patients not on anticoagulant therapy: 0.9 - 1.1 INR ranges for oral anticoagulant therapy: For prevention and treatment of venous thrombosis and pulmonary embolism: 2.0 - 3.0 For acute myocardial infarction with aspirin therapy: 2.0 - 3.0 For acute myocardial infarction without aspirin therapy: 3.0 - 4.0 For patients with mechanical prosthetic heart valves: 2.5 - 3.5 Prothrombin Time Whole Bld P OC Reviewed date:07/09/2024 12:21:37 PM Interpretation: Performing Lab:[facility], [address] [place] [phone] Notes/Report: Prothrombin Time Whole Bld POC 27.5 11.1-13.5 sec INR WHOLE BLOOD POC Reviewed date:07/22/2024 02:12:43 PM Interpretation: Performing Lab:[facility], [address] [place] [phone] Notes/Report: PT, INR - [facility]ag [facility] 1.8 0.9-1.1 METER #: [id number] INTERNATIONAL NORMALIZED RATIO (INR) REFERENCE RANGES Reference Range For patients not on anticoagulant therapy: 0.9 - 1.1 INR ranges for oral anticoagulant therapy: For prevention and treatment of venous thrombosis and pulmonary embolism: 2.0 - 3.0 For acute myocardial infarction with aspirin therapy: 2.0 - 3.0 For acute myocardial infarction without aspirin therapy: 3.0 - 4.0 For patients with mechanical prosthetic heart valves: 2.5 - 3.5 Prothrombin Time Whole Bld P OC Reviewed date:07/22/2024 02:18:21 PM Interpretation: Performing Lab:[facility], [address] [place] [phone] Notes/Report: Prothrombin Time Whole Bld POC 21.8 11.1-13.5 sec INR WHOLE BLOOD POC Reviewed date:08/04/2024 12:06:47 PM Interpretation: Performing Lab:[facility], [address] [place] [phone] Notes/Report: PT, INR - Anti Coag Clinic 2.2 0.9-1.1 METER #: [id number] INTERNATIONAL NORMALIZED RATIO (INR) REFERENCE RANGES Reference Range For patients not on anticoagulant therapy: 0.9 - 1.1 INR ranges for oral anticoagulant therapy: For prevention and treatment of venous thrombosis and pulmonary embolism: 2.0 - 3.0 For acute myocardial infarction with aspirin therapy: 2.0 - 3.0 For acute myocardial infarction without aspirin therapy: 3.0 - 4.0 For patients with mechanical prosthetic heart valves: 2.5 - 3.5 Prothrombin Time Whole Bld P OC Reviewed date:08/04/2024 12:04:48 PM Interpretation: Performing Lab:[facility], [address] [place] [phone] Notes/Report: Prothrombin Time Whole Bld POC 25.9 11.1-13.5 sec Hold Gold Reviewed date:08/20/2024 12:43:27 PM Interpretation: Performing Lab:[facility], [address] [place] [phone] Notes/Report: Hold Gold See Note Specimen held untested for 24 hours; Call to request Chemistry testing. INR WHOLE BLOOD POC Reviewed date:08/25/2024 07:57:52 PM Interpretation: Performing Lab:[facility], [address] [place] [phone] Notes/Report: PT, INR - [facility]ag [facility] 2.1 0.9-1.1 METER #: [id number] INTERNATIONAL NORMALIZED RATIO (INR) REFERENCE RANGES Reference Range For patients not on anticoagulant therapy: 0.9 - 1.1 INR ranges for oral anticoagulant therapy: For prevention and treatment of venous thrombosis and pulmonary embolism: 2.0 - 3.0 For acute myocardial infarction with aspirin therapy: 2.0 - 3.0 For acute myocardial infarction without aspirin therapy: 3.0 - 4.0 For patients with mechanical prosthetic heart valves: 2.5 - 3.5 Prothrombin Time Whole Bld P OC Reviewed date:08/25/2024 07:57:59 PM Interpretation: Performing Lab:[facility], [address] [place] [phone] Notes/Report: Prothrombin Time Whole Bld POC 25.6 11.1-13.5 sec INR WHOLE BLOOD POC Reviewed date:09/15/2024 09:59:14 AM Interpretation: Performing Lab:[facility], [address] [place] [phone] Notes/Report: PT, INR - Anti Coag Clinic 3.0 0.9-1.1 METER #: [id number] INTERNATIONAL NORMALIZED RATIO (INR) REFERENCE RANGES Reference Range For patients not on anticoagulant therapy: 0.9 - 1.1 INR ranges for oral anticoagulant therapy: For prevention and treatment of venous thrombosis and pulmonary embolism: 2.0 - 3.0 For acute myocardial infarction with aspirin therapy: 2.0 - 3.0 For acute myocardial infarction without aspirin therapy: 3.0 - 4.0 For patients with mechanical prosthetic heart valves: 2.5 - 3.5 Prothrombin Time Whole Bld P OC Reviewed date:09/15/2024 12:33:10 PM Interpretation: Performing Lab:[facility], [address] [place] [phone] Notes/Report: Prothrombin Time Whole Bld POC 35.5 11.1-13.5 sec INR WHOLE BLOOD POC Reviewed date:10/06/2024 04:22:44 PM Interpretation: Performing Lab:[facility], [address] [place] [phone] Notes/Report: PT, INR - Anti Coag Clinic 2.0 0.9-1.1 METER #: [id number] INTERNATIONAL NORMALIZED RATIO (INR) REFERENCE RANGES Reference Range For patients not on anticoagulant therapy: 0.9 - 1.1 INR ranges for oral anticoagulant therapy: For prevention and treatment of venous thrombosis and pulmonary embolism: 2.0 - 3.0 For acute myocardial infarction with aspirin therapy: 2.0 - 3.0 For acute myocardial infarction without aspirin therapy: 3.0 - 4.0 For patients with mechanical prosthetic heart valves: 2.5 - 3.5 Prothrombin Time Whole Bld P OC Reviewed date:10/06/2024 04:22:36 PM Interpretation: Performing Lab:[facility], [address] [place] [phone] Notes/Report: Prothrombin Time Whole Bld POC 23.5 11.1-13.5 sec Prostate Specific Antigen Reviewed date:10/09/2024 11:16:46 AM Interpretation: Performing Lab:[facility], [address] [place] [phone] Notes/Report: Prostate Specific Antigen < 0.10 <0.05-4.0 ng/mL PSA methodology: Robert Alinity i Chemiluminescent Microparticle Immunoassay (CMIA) INR WHOLE BLOOD POC Reviewed date:10/27/2024 11:14:11 AM Interpretation: Performing Lab:[facility], [address] [place] [phone] Notes/Report: PT, INR - [facility]ag Clinic 2.0 0.9-1.1 METER #: [id number] INTERNATIONAL NORMALIZED RATIO (INR) REFERENCE RANGES Reference Range For patients not on anticoagulant therapy: 0.9 - 1.1 INR ranges for oral anticoagulant therapy: For prevention and treatment of venous thrombosis and pulmonary embolism: 2.0 - 3.0 For acute myocardial infarction with aspirin therapy: 2.0 - 3.0 For acute myocardial infarction without aspirin therapy: 3.0 - 4.0 For patients with mechanical prosthetic heart valves: 2.5 - 3.5 Prothrombin Time Whole Bld P OC Reviewed date:10/27/2024 11:14:04 AM Interpretation: Performing Lab:[facility], [address] [place] [phone] Notes/Report: Prothrombin Time Whole Bld POC 23.7 11.1-13.5 sec INR WHOLE BLOOD POC Reviewed date:11/10/2024 12:18:48 PM Interpretation: Performing Lab:[facility], [address] [place] [phone] Notes/Report: PT, INR - [facility]ag Clinic 1.8 0.9-1.1 METER #: [id number] INTERNATIONAL NORMALIZED RATIO (INR) REFERENCE RANGES Reference Range For patients not on anticoagulant therapy: 0.9 - 1.1 INR ranges for oral anticoagulant therapy: For prevention and treatment of venous thrombosis and pulmonary embolism: 2.0 - 3.0 For acute myocardial infarction with aspirin therapy: 2.0 - 3.0 For acute myocardial infarction without aspirin therapy: 3.0 - 4.0 For patients with mechanical prosthetic heart valves: 2.5 - 3.5 Prothrombin Time Whole Bld P OC Reviewed date:11/10/2024 12:18:37 PM Interpretation: Performing Lab:[facility], [address] [place] [phone] Notes/Report: Prothrombin Time Whole Bld POC 21.5 11.1-13.5 sec INR WHOLE BLOOD POC Reviewed date:11/24/2024 12:04:29 PM Interpretation: Performing Lab:[facility], [address] [place] [phone] Notes/Report: PT, INR - Anti Coag Clinic 2.4 0.9-1.1 METER #: [id number] INTERNATIONAL NORMALIZED RATIO (INR) REFERENCE RANGES Reference Range For patients not on anticoagulant therapy: 0.9 - 1.1 INR ranges for oral anticoagulant therapy: For prevention and treatment of venous thrombosis and pulmonary embolism: 2.0 - 3.0 For acute myocardial infarction with aspirin therapy: 2.0 - 3.0 For acute myocardial infarction without aspirin therapy: 3.0 - 4.0 For patients with mechanical prosthetic heart valves: 2.5 - 3.5 Prothrombin Time Whole Bld P OC Reviewed date:11/24/2024 12:04:21 PM Interpretation: Performing Lab:[facility], [address] [place] [phone] Notes/Report: Prothrombin Time Whole Bld POC 28.2 11.1-13.5 sec INR WHOLE BLOOD POC Reviewed date:12/17/2024 12:38:14 PM Interpretation: Performing Lab:[facility], [address] [place] [phone] Notes/Report: PT, INR - Anti Coag Clinic 2.0 0.9-1.1 METER #: [id number] INTERNATIONAL NORMALIZED RATIO (INR) REFERENCE RANGES Reference Range For patients not on anticoagulant therapy: 0.9 - 1.1 INR ranges for oral anticoagulant therapy: For prevention and treatment of venous thrombosis and pulmonary embolism: 2.0 - 3.0 For acute myocardial infarction with aspirin therapy: 2.0 - 3.0 For acute myocardial infarction without aspirin therapy: 3.0 - 4.0 For patients with mechanical prosthetic heart valves: 2.5 - 3.5 Prothrombin Time Whole Bld P OC Reviewed date:12/17/2024 12:51:29 PM Interpretation: Performing Lab:[facility], [address] [place] [phone] Notes/Report: Prothrombin Time Whole Bld POC 23.9 11.1-13.5 sec INR WHOLE BLOOD POC Reviewed date:01/07/2025 10:59:51 AM Interpretation: Performing Lab:[facility], [address] [place] [phone] Notes/Report: PT, INR - Anti Coag Clinic 2.2 0.9-1.1 METER #: [id number] INTERNATIONAL NORMALIZED RATIO (INR) REFERENCE RANGES Reference Range For patients not on anticoagulant therapy: 0.9 - 1.1 INR ranges for oral anticoagulant therapy: For prevention and treatment of venous thrombosis and pulmonary embolism: 2.0 - 3.0 For acute myocardial infarction with aspirin therapy: 2.0 - 3.0 For acute myocardial infarction without aspirin therapy: 3.0 - 4.0 For patients with mechanical prosthetic heart valves: 2.5 - 3.5 Prothrombin Time Whole Bld P OC Reviewed date:01/07/2025 10:59:22 AM Interpretation: Performing Lab:[facility], [address] [place] [phone] Notes/Report: Prothrombin Time Whole Bld POC 26.4 11.1-13.5 sec INR WHOLE BLOOD POC Reviewed date:02/04/2025 02:25:43 PM Interpretation: Performing Lab:[facility], [address] [place] [phone] Notes/Report: PT, INR - Anti Coag Clinic 3.3 0.9-1.1 METER #: [id number] INTERNATIONAL NORMALIZED RATIO (INR) REFERENCE RANGES Reference Range For patients not on anticoagulant therapy: 0.9 - 1.1 INR ranges for oral anticoagulant therapy: For prevention and treatment of venous thrombosis and pulmonary embolism: 2.0 - 3.0 For acute myocardial infarction with aspirin therapy: 2.0 - 3.0 For acute myocardial infarction without aspirin therapy: 3.0 - 4.0 For patients with mechanical prosthetic heart valves: 2.5 - 3.5 Prothrombin Time Whole Bld P OC Reviewed date:02/04/2025 11:35:29 AM Interpretation: Performing Lab:[facility], [address] [place] [phone] Notes/Report: Prothrombin Time Whole Bld POC 39.1 11.1-13.5 sec Reason For Referral No Information Medications Medication SIG (Take, Route, Frequency, Duration) Notes Start Date End Date Status Ipratropium-Albuterol 0.5-2.5 (3) MG/3ML 3 ml as needed Inhalation every 6 hrs 10/30/2021 Active amLODIPine Besylate 5 MG 1 tablet Orally Once a day 04/14/2021 Not-Taking Carvedilol 3.125 MG 1 tablet with food Orally Twice a day Active Atorvastatin Calcium 40 MG 1 tablet Oral ly Once a day Active Tamsulosin HCl 0.4 MG TAKE 1 CAPSULE BY MOUTH TWICE DAILY Active Albuterol Sulfate (sensor) 108 (90 Base) MCG/ACT 1 puff as needed Inhalation every 4 hrs for 30 days Active Vitamin B12 1000 MCG 1 tablet Orally Onc e a day for 30 day(s) Active Fioricet 50-300-40 MG 1 capsule as neede d Orally every 12 hrs as needed for 7 days 07/07/2024 Not-Taking Zolpidem Tartrate 5 MG TAKE 1 TABLET BY MOUTH DAILY AT BEDTIME Orally Once a day for 30 days 02/08/2025 Active Nystatin 162817 UNIT/GM 1 application Externally Twice a day for 30 days 05/29/2022 Active Furosemide 40 MG TAKE 1 TABLET BY NIGEL TH EVERY DAY for 90 Active Meclizine HCl 25 MG 1 tablet as needed Orally Once a day as needed for 30 days Not-Taking Ocuflox 0.3 % 1 drop into affected eye Ophthalmic Four times a day for 7 days 05/29/2022 Not-Takin g Bicalutamide 50 MG 1 tablet Orally Once a day for 30 day(s) Not-Taking oxyBUTYnin Chloride 5 MG TAKE 1 TABLET B Y MOUTH DAILY for 90 Not-Taking Wixela Inhub 250-50 MCG/DOSE 1 puff Inhalation Twice a day Not-Taking Nystatin-Triamcinolone 904370-2.1 UNIT/GM 1 application Externally Twice a day for 10 days 03/14/2020 Not-Taking Warfarin Sodium 3 MG TAKE 2 TO 2 AND 1/2 TABLETS BY MOUTH DAILY for 30 Active Famotidine 40 MG TK 1 T PO QD HS FOR 14 DAYS Oral for 14 Not-Taking Cyclobenzaprine HCl 5 MG 1 tablet Orally Three times a day for 10 days Not-Taking Ventolin HFA 108 (90 Base) MCG/ACT 2 puffs as needed Inhalation every 4 hrs for 30 days 01/26/2013 Not-Taking Immunizations Vaccine Route Administration Date Status Comme [facility] Flu Vaccine IM Intramuscular 08/20/2011 Administered Flu Vaccine IM Intramuscular 08/19/2012 Administered PPSV23 (Pnemovax) IM Intramuscular 02/23/2013 Administered Flu Vaccine IM Intramuscular 07/10/2013 Administered Fluarix Quadrivalent IM Intramuscular 06/21/2014 Administe red Fluarix Quadrivalent IM Intramuscular 07/04/2015 Administe red Fluarix Quadrivalent IM Intramuscular 06/21/2016 Administe red Fluarix Quadrivalent IM Intramuscular 06/24/2017 Administe red Fluarix Quadrivalent Unknown 08/05/2018 Administered At [facility] Influenza High Dose IM Intramuscular 08/03/2019 Administer ed Influenza High Dose IM Intramuscular 06/17/2020 Administer ed Covid Vaccine Unknown 11/29/2020 Administered Pfizer Covid Vaccine Unknown 12/20/2020 Administered Pfizer Influenza High Dose IM Intramuscular 06/29/2021 Administer ed SARS-COV-2 Pfizer Unknown 06/30/2021 Administered SARS-COV-2 Pfizer Unknown 01/11/2022 Administered Influenza High Dose Unknown 06/14/2022 Administered Jeffery martínez Prevnar 13 Unknown 05/17/2014 Refused Shingles Unknown 07/01/2017 Refused PPSV23 (Pnemovax) Unknown 02/10/2021 Refused Flu Vaccine Unknown 06/21/2014 Pending Social History Tobacco Use: Social History Observation Description Date Details (start date - stop date) Former Smoker NA - NA Tobacco Use/Smoking Question Answer Notes Patient is a former smoker How long has it been since y ou last smoked? 1-5 years Additional Findings: Tobacco Non-User Fo rmer smoker, currently using no form of tobacco Alcohol Screen Question Answer Notes Did you have a drink contain ing alcohol in the past year? Yes How often did you have a dri nk containing alcohol in the past year? 4 or more times a week (4 points) How many drinks did you have on a typical day when you were drinking in the past year? 1 or 2 drinks (0 point) How often did you have 6 or more drinks on one occasion in the past year? Never (0 point) Points 4 Interpretation Positive Section Notes: Patient is smoking 2 packs a day, wanted to try Chantix but the copay was $90 Patient is smoking 2 packs a day, wanted to try Chantix but the copay was $90 Patient is smoking 2 packs a day, wanted to try Chantix but the copay was $90 Patient is smoking 2 packs a day, wanted to try Chantix but the copay was $90 Patient is smoking 2 packs a day, wanted to try Chantix but the copay was $90 Patient is smoking 2 packs a day, wanted to try Chantix but the copay was $90 Patient is smoking 2 packs a day, wanted to try Chantix but the copay was $90 Problems Problem Type SNOMED Code ICD Code Onset Dates Problem Status W/U Status Risk Notes Problem [id number] 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 Problem Insomnia (083001376) Insomnia (G47.00) Active confirmed Problem 5902407 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) Active confirmed Problem Cataract (847578600) Unspecified cataract (H26.9) Active confirmed Problem Conductive hearing loss, bilateral (874253941) Conductive hearing loss, 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) Active confirmed Problem 7469593 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) Active confirmed Problem 83220672 Essential hypert ension (I10) Active confirmed Problem 741557573 Prostate cancer (C61) Active confirme d Problem 3775265 Psoriasis (L40.9) Active confirmed Problem 899543478 Lung nodule (R91.1) Active confirmed Problem Low testosterone (795654514) Low testosterone (E29.1) Active confirmed Problem 1901271949733804 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 Problem 945728345 Lung nodules (R91.8) Active confirmed Problem 534451770 Cervical disc di sease (M50.90) Active confirmed Problem 406376095 Tension headache (G44.209) Active confirmed Problem 0781969 Former smoker (Z87.891) Active confirmed Problem Acute exacerbation of chronic obstructive airways disease (493077992) COPD exacerbation (J44.1) Active confirmed Problem 59769998 Dysthymia (F34.1) Active confirmed Problem Iron deficiency anemia (40440250) Iron deficiency anemia, unspecified iron deficiency anemia type (D50.9) Active confirmed Problem 39444149 Atrial fibrillat ion, unspecified type (I48.91) Active confirmed Problem 7794266 Urinary obstruct ion (N13.9) Active confirmed Problem Leukocytosis (769748269) Elevated WBC count (D72.829) Active confirmed Problem 95917142 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 confirmed Problem 846877184 Pure hypercholesterolemia (E78.00) Active confirmed Problem 275765756 BMI 30.0-30.9,ad ult (Z68.30) Active confirmed Problem 510653780 COPD with exacer bation (J44.1) Active confirmed Problem 038638212 Hypertensive cri sis (I16.9) Active confirmed Problem Gout (88913019) Acute gout, unspecified cause, unspecified site (M10.9) Active confirmed Problem 11617625 COPD without exacerbation (J44.9) Active confirmed Problem Gout (50417944) Acute gout of ri ght knee, unspecified cause (M10.9) Active confirmed Problem 978038744 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 Vital Signs Blood pressure diastolic 66 mm Hg 01/22/2025 jon ght is up 9 pounds since 08-27-24 Height 65 in 01/22/2025 weight is up 9 pounds since 08-27-24 Blood pressure systolic 130 mm Hg 01/22/2025 weig ht is up 9 pounds since 08-27-24 Weight 182 lbs 01/22/2025 weight is up 9 pounds since 08-27-24 BMI 30.28 kg/m2 01/22/2025 weight is up 9 pounds since 08-27-24 Encounters Encounter Location Date Provider Diagnosis Jake Pepper MD [address] [place] [address] [id number] 08/20/2024 Jake Pepper Pure hypercholestero lemia E78.00 Jake Pepper MD [address] [place] [address] [id number] 02/19/2025 Jake Pepper Blood tests for rout ine general physical examination Z00.00 ; Essential hypertension I10 ; Pure hypercholesterolemia E78.00 and Iron deficiency anemia, unspecified iron deficiency anemia type D50.9 Jake Pepper MD [address] [place] [address] [id number] 02/24/2024 Jake Pepper Chronic constipation K59.09 ; Annual physical exam Z00.00 ; Panlobular emphysema J43.1 ; Lung nodule R91.1 ; Insomnia G47.00 ; Essential hypertension I10 ; Pure hypercholesterolemia E78.00 ; Atrial fibrillation, unspecified type I48.91 ; Urinary obstruction N13.9 ; Colon cancer screening Z12.11 and Depression screening Z13.31 Jake Pepper MD [address] [place] [address] [id number] 07/07/2024 Jake Pepper Tension headache G44 .209 Jake Pepper MD [address] [place] [address] [id number] 08/27/2024 Jake Pepper Essential hypertensi on I10 ; Pure hypercholesterolemia E78.00 ; Atrial fibrillation, unspecified type I48.91 and COPD without exacerbation J44.9 Jake Pepper MD [address] [place] [address] [id number] 01/22/2025 Jake Pepper Panlobular emphysema J43.1 ; Atrial fibrillation, unspecified type I48.91 and Unspecified cataract H26.9 Jake Pepper MD [address] [place] [address] [id number] 12/21/2024 Jake Pepper MD [address] [place] [address] [id number] 03/05/2024 Jake Pepper MD [address] [place] [address] [id number] 03/05/2024 Jake Pepper Panlobular emphysema J43.1 Jake Pepper MD [address] [place] [address] [id number] 03/08/2024 Jake Pepper Insomnia G47.00 Jake Pepper MD [address] [place] [address] [id number] 06/07/2024 Jake Pepper Insomnia G47.00 Jake Pepper MD [address] [place] [address] [id number] 07/07/2024 Jake Velaardianny Insomnia G47.00 Jake Pepper MD [address] [place] [address] [id number] 08/06/2024 Jake Velaardier Insomnia G47.00 Jake Pepper MD [address] [place] [address] [id number] 09/02/2024 Jake Velaardianny Insomnia G47.00 Jake Pepper MD [address] [place] [address] [id number] 10/05/2024 Jakebernabe Velaardier Insomnia G47.00 Jake Pepper MD [address] [place] [address] [id number] 11/08/2024 Jake Bombardier Insomnia G47.00 Jake Pepper MD [address] [place] [address] [id number] 12/07/2024 Jake Velaardianny Insomnia G47.00 Jake Pepper MD [address] [place] [address] [id number] 01/06/2025 Jake Velaardianny Insomnia G47.00 Jake Pepper MD [address] [place] [address] [id number] 02/05/2025 Jake Pepper Insomnia G47.00 Jake Pepper MD [address] [place] [address] [id number] 02/10/2025 Jake Pepper MD [address] [place] [address] [id number] 02/12/2025 Jake Pepper Assessments Encounter Date Diagnosis (ICD Code) Assessment Notes Treatment Notes Treatment Clinical Notes Section Notes 08/20/2024 Pure hypercholesterolemia (ICD-10 - E78.00) 02/19/20[address] tests [address] ine general physical examination (ICD-10 - Z00.00) 02/19/2025 Essential hypertensi on (ICD-10 - I10) 02/24/2024 Chronic constipation (ICD-10 - K59.09) will try metamucil. 02/24/2024 Annual physical exam (ICD-10 - Z00.00) labs reviewed and discussed with patient 07/07/2024 Tension headache (ICD-10 - G44.209) patient verbalized understanding of medication and directions for use 08/27/2024 Essential hypertensi on (ICD-10 - I10) doing well on meds 08/27/2024 Pure hypercholesterolemia (ICD-10 - E78.00) well controlled 01/22/2025 Panlobular emphysema (ICD-10 - J43.1) stable 01/22/2025 Atrial fibrillation, unspecified type (ICD-10 - I48.91) stable 03/05/2024 Panlobular emphysema (ICD-10 - J43.1) 03/08/2024 Insomnia (ICD-10 - G47.00) 06/07/2024 Insomnia (ICD-10 - G47.00) 07/07/2024 Insomnia (ICD-10 - G47.00) 08/06/2024 Insomnia (ICD-10 - G47.00) 09/02/2024 Insomnia (ICD-10 - G47.00) 10/05/2024 Insomnia (ICD-10 - G47.00) 11/08/2024 Insomnia (ICD-10 - G47.00) 12/07/2024 Insomnia (ICD-10 - G47.00) 01/06/2025 Insomnia (ICD-10 - G47.00) 02/05/2025 Insomnia (ICD-10 - G47.00) 02/19/2025 Pure hypercholesterolemia (ICD-10 - E78.00) 02/24/2024 Panlobular emphysema (ICD-10 - J43.1) getting by without oxygen. is using it on the treadmill, will cntinue current regiment 08/27/2024 Atrial fibrillation, unspecified type (ICD-10 - I48.91) rate stable 01/22/2025 Unspecified cataract (ICD-10 - H26.9) patient has no desire to get cataracts done and feels his vision is satisfactory. will cancel his surgery/ [facility] was called with this info 02/19/2025 Iron deficiency anem ia, unspecified iron deficiency anemia type (ICD-10 - D50.9) 02/24/2024 Lung nodule (ICD-10 - R91.1) followed by dr peterson. has gotten smaller on the last one. 08/27/2024 COPD without exacerbation (ICD-10 - J44.9) stable 02/24/2024 Insomnia (ICD-10 - G47.00) taking sleeping pill nightly, will continue current regiment 02/24/2024 Essential hypertensi on (ICD-10 - I10) stable, will contiu to monitor and will continue current regiment 02/24/2024 Pure hypercholesterolemia (ICD-10 - E78.00) stable, will contiue current regiment 02/24/2024 Atrial fibrillation, unspecified type (ICD-10 - I48.91) stable, will contiue current regiment 02/24/2024 Urinary obstruction (ICD-10 - N13.9) will continue current regiment 02/24/2024 Colon cancer screeni ng (ICD-10 - Z12.11) guaiac negative 02/24/2024 Depression screening (ICD-10 - Z13.31) negative screen Plan Of Treatment Pending Test Test Name Order Date Electrocardiogram (EKG) 12/16/2015 Electrocardiogram (EKG) 01/30/2019 XR CHEST 2 VIEW PA & LAT 02/16/2022 XR GI SERIES 10/15/2022 Complete Blood Count Auto Diff 05/16/202 5 Comprehensive [place]. Panel Fast 5 IRON PROFILE 02/19/2025 Lipid Panel 02/19/2025 PSA,Total (Free>4and<10) 02/19/2025 Folate 02/09/2021 UA ClnCatch+Micro w/rflx Cult 02/19/2025 Future Test Test Name Order Date CT chest wo con 02/04/2023 Next Appt Details Provider Name:Jake Miller ier, 02/26/2025 08:30:00 AM, [address], [address], [place], [place], [id number], Insurance Providers Payer Name Payer Address Payer Phone Subscriber Number Group Number Insured Name Patient Relationship to Insured Coverage Start Date Coverage End Date [employer] PLAN [address] [place] [phone] [id number] Kalyan Nguyen Self - patient is the insured MEDICARE [address] [place] [address] [id number] Kalyan Nguyen Self - patient is the insured Medical (General) History Medical History History ICD Code 03/2004 - colonoscopy (repea t 10 years); colonoscopy [address] Rajput Smoker unmotivated to quit F17.210 biculatimide and finasteraide for prosta te cancer Surgical History Surgery Date(Month/Year) Repair of Umbilical Hernia w/Mesh (Dr. Darrell guido) 04/2019
--- OUTSIDE RECORDS SUMMARY | 2025-02-19 10:56 | XMS_ITS ---
Author Organization Jake Pepper MD Address [address] [place] [phone] Care Team Providers Care Community Coordinator Name Role Phone Jake Pepper Primary Care Provider [phone] REASON FOR VISIT yearly fasting labs Encounters Encounter Location Date Provider Diagnosis Jake Pepper MD [address] [place] [address] [id number] 02/19/2025 Jake Pepper Blood tests for rout ine general physical examination Z00.00 ; Essential hypertension I10 ; Pure hypercholesterolemia E78.00 and Iron deficiency anemia, unspecified iron deficiency anemia type D50.9 Assessments Encounter Date Diagnosis (ICD Code) Assessment Notes Treatment Notes Treatment Clinical Notes Section Notes 02/19/2025 Blood tests for rout ine general physical examination (ICD-10 - Z00.00) 02/19/2025 Essential hypertensi on (ICD-10 - I10) 02/19/2025 Pure hypercholesterolemia (ICD-10 - E78.00) 02/19/2025 Iron deficiency anem ia, unspecified iron deficiency anemia type (ICD-10 - D50.9) Plan Of Treatment Pending Test Test Name Order Date Complete Blood Count Auto Diff Comprehensive [place]. Panel Fast IRON PROFILE 02/19/2025 Lipid Panel 02/19/2025 PSA,Total (Free>4and<10) 02/19/2025 UA ClnCatch+Micro w/rflx Cult 02/19/2025 Next Appt Details Provider Name:Jake Miller ier, 02/26/2025 08:30:00 AM, [address] [facility], [address], [place], [place], [phone], Progress Notes * Kalyan JUAREZ RDOB: [birth year] (84 yo M)Acc No.[id number]:02/19/2025 Progress Note Patient:?LARRYKalyan Benita Provider:?Jake Pepper MD :1940???Age:84 Y???Sex:Male Kennedy e:02/19/2025 Address:[address] [place], [place] [id number] Subjective: * Chief Complaints: * ???1. Yearly fasting labs. * Medical History:? Objective: * Vitals:? Assessment: * Assessment: 1.?Blood tests for routine g eneral physical examination - Z00.00 (Primary)???2.?Essential hypertension - I10???3.?Pure hypercholesterolemia - E78.00???4.?Iron deficiency anemia, unspecified iron deficiency anemia type - D50.9??? Plan: * Treatment: 2.?Essential hypertension?LAB: Complete Blood Count Auto Diff ?LAB: Comprehensive [place]. Panel Fast ?LAB: IRON PROFILE ?LAB: Lipid Panel ?LAB: PSA,Total (Free>4and<10) ?LAB: UA ClnCatch+Micro w/rflx Cult 3.?Pure hypercholesterolemia ?LAB: Complete Blood Count Auto Diff ?LAB: Comprehensive [place]. Panel Fast ?LAB: IRON PROFILE ?LAB: Lipid Panel ?LAB: PSA,Total (Free>4and<10) ?LAB: UA ClnCatch+Micro w/rflx Cult 4.?Iron deficiency anemia, u nspecified iron deficiency anemia type?LAB: Complete Blood Count Auto Diff ?LAB: Comprehensive [place]. Panel Fast ?LAB: IRON PROFILE ?LAB: Lipid Panel ?LAB: PSA,Total (Free>4and<10) ?LAB: UA ClnCatch+Micro w/rflx Cult * Procedure Codes:?61399 VENIP UNCT, ROUTINE* * * The named appointment provid er may or may not be the originator of this progress note, and it is not deemed complete until electronically signed by the appointment provider. Sign off status: Pending * Provider:?Jake Pepper MD Date:?0 02/19/2025 Generated for Mabel trotter/Ashish/eTmartinsmitting on:?02/19/2025 10:55 AM EDT
--- OUTSIDE RECORDS SUMMARY | 2025-02-19 10:56 | XMS_ITS ---
Author Organization Jake Pepper MD Address [address] [place], [place] [phone] Care Team Providers Care Natural Gas Inspector Name Role Phone Jake Pepper Primary Care Provider REASON FOR VISIT release of information Encounters Encounter Location Date Provider Diagnosis Jake Pepper MD [address] [place], [place] [phone] 02/10/2025 Jake Pepper Plan Of Treatment Next Appt Details Provider Name:Jake schmidt, 02/26/2025 08:30:00 AM, [address], [address], [place], [place], [phone], Progress Notes * Kalyan JUAREZ RDOB: [birth year] (84 yo M)Acc No.[id number]:02/10/2025 Patient:?Kalyan JUAREZ :1940???Age:84 Y???Sex:Male Address:[address] [place] [address] [place] [address] * true * Date:? Generated for Jermainei rose marie/Ashish/eTransmitting on:?02/19/2025 10:55 AM EDT
--- OUTSIDE RECORDS SUMMARY | 2025-02-19 10:56 | XMS_ITS ---
Author Organization Jake Pepper MD Address [address] [place], [place] [phone] Care Team Providers Care Soft Hat Binder Name Role Phone Jake Pepper Primary Care Provider REASON FOR VISIT RE:release of information Encounters Encounter Location Date Provider Diagnosis Jake Pepper MD [address] [place], [place] [phone] 02/12/2025 Jake Pepper Plan Of Treatment Next Appt Details Provider Name:Jake schmidt, 02/26/2025 08:30:00 AM, [address], [address], [place], [place], [phone], Progress Notes * Kalyan JUAREZ RDOB: [birth year] (84 yo M)Acc No.[id number]:02/12/2025 Patient:?Kalyan JUAREZ :1940???Age:84 Y???Sex:Male Address:[address] [place] [address] [place] [address] * true * Date:? Generated for Jermainei rose marie/Ashish/eTransmitting on:?02/19/2025 10:55 AM EDT
[2025-02-19 10:57] LABS: Basophils Absolute Auto 0.1 X10*3/uL (0.0-0.2); Basophils Percent Auto 0.5 % (0-2); Eosinophils Absolute Auto 0.3 X10*3/uL (0.0-0.4); Hematocrit 37.8 % (42.0-52.0); Hemoglobin 12.1 g/dl (14.0-18.0); Imm Gran Abs Auto 0.03 X10*3/uL (0.00-0.03); Imm Gran Pct Auto 0.3 % (0.0-0.4); Lymphocytes Absolute Auto 3.3 X10*3/uL (1.2-4.9); Lymphocytes Percent Auto 32.9 % (20-40); Mean Corpuscular Hemoglobin 32.6 pg (27.0-33.0); Mean Corpuscular Volume 101.9 fL (80.0-98.0); Mean Platelet Volume 11.3 fL (9.4-12.4); Monocytes Percent Auto 10.3 % (2-11); Neutrophils Absolute Auto 5.3 x10*3/uL (2.0-8.3); Platelet Count 196 X10*3/uL (160-400); Red Blood Count 3.71 X10*6/uL (4.60-5.80); Red Cell Distribution Width 12.9 % (11.0-16.0)
[2025-02-19 11:06] LABS: Appearance Urine Clear; Color Urine Dark Yellow; Glucose Urine UA Negative (Negative); Leukocyte Esterase Urine Negative (Negative); Nitrite Urine Negative (Negative); PH 6.5 (5.0-9.0); Specific Gravity - Urine 1.025 (1.005-1.025); UMIC TRIGGER UACC YES; Urine Blood Negative (Negative); Urine Ketones Trace mg/dL (Negative); Urine Protein 30 (1+) mg/dL (Neg-Trace)
[2025-02-19 11:10] LABS: Bacteria Urine None Seen (None Seen); Hyaline Casts Urine 0-2 /LPF (0-2); RBC Urine 0-2 /HPF (0-2); Squamous Epithelial Cell Urine 0-2 /HPF (0-2); WBC Urine 0-5 /HPF (0-5)
[2025-02-19 11:42] LABS: PSA,Total (Free>4and<10) < 0.10 ng/mL (0.00-4.00)
[2025-02-19 11:44] LABS: Alanine Aminotransferase 26 U/L (0-40); Albumin Level 3.9 g/dL (3.5-5.0); Alkaline Phosphatase 92 U/L (39-117); Anion Gap 12 (12-20); Aspartate Amino Transferase 35 U/L (5-37); Bilirubin Total 0.5 mg/dL (0.0-1.0); Blood Urea Nitrogen 21 mg/dL (9-16); Calcium 9.2 mg/dL (8.4-10.2); Carbon Dioxide 42 mmol/L (22-29); Chloride 93 mmol/L (96-108); Cholesterol 143 mg/dL (<200); Estimated Glomerular Filt Rate > 60; Glucose Fasting 99 mg/dL (60-99); HDL Cholesterol 45 mg/dL (>40); Iron 63 mcg/dL (45-160); LDL Cholesterol Calculated 73 mg/dL (<100); Percent Iron Saturation 23 % (15-50); Potassium 3.8 mmol/L (3.3-5.1); Sodium 143 mmol/L (135-145); Total Iron Binding Capacity 271 mcg/dL (228-428); Total Protein 7.2 g/dL (6.5-8.0); Triglycerides 129 mg/dL (<150); Unsaturated Iron Binding 208 ug/dL
== END 2025-02-19 10:31 | disposition home or self-care (01) ==
LOC: HO.LNP 10:30
PROVIDERS: Visit Provider Internal Medicine
DX: Z00.00 Encounter for general adult medical examination without abnormal findings (principal); I10 Essential (primary) hypertension; E78.00 Pure hypercholesterolemia, unspecified; D50.9 Iron deficiency anemia, unspecified; Z12.5 Encounter for screening for malignant neoplasm of prostate
CPT/HCPCS: 80053; 80061; 81001; 83540; 84153; 85025

== ENCOUNTER 2025-03-04 09:19 | Outpatient (AMB) | payer MEDICARE, SELFPAY ==
--- OUTSIDE RECORDS SUMMARY | 2025-03-04 09:42 | XMS_ITS | Patient Health Record ---
Author Organization Jake Pepper MD Address [address] [place], [place] [id number] Care Team Providers Care Police Or Patrol Park Officer Name Role Phone Jake Pepper Primary Care Provider Allergies Allergen (clinical drug ingredient) Drug/Non Drug Allergy documented on EMR Reaction Allergy Type Onset Date Status Lamisil rash Drug Allergy Active Vaccine product containing Streptococcus pneumoniae antigen (medicinal product) Pneumovax (uncoded) local reaction redness Allergy Active Results Component Value Reference Range Notes Liver Panel Reviewed date:08/20/2024 03:17:01 PM Interpretation: Performing Lab:[facility], [address] [place] [phone] Notes/Report: Bilirubin Total 0.7 0.0-1.0 mg/dL Bilirubin Direct 0.3 0.0-0.5 mg/dL Aspartate Amino Transferase 42 5-37 U/L Alanine Aminotransferase 24 0-40 U/L Total Protein 7.3 6.5-8.0 g/dL Albumin Level 3.9 3.5-5.0 g/dL Alkaline Phosphatase 94 39-117 U/L Lipid Panel with Reflex Reviewed date:08/20/2024 03:16:31 PM Interpretation: Performing Lab:[facility], [address] [place] [phone] Notes/Report: Triglycerides 135 <150 mg/dL Desirable Triglyceride: [...] low results in patients with liver disease. Complete Blood Count Auto Di ff Reviewed date:02/21/2025 05:38:19 PM Interpretation: Performing Lab:[facility], [address] [place] [phone] Notes/Report: White Blood Count 10.0 4.8-10.8 X10*3/uL Red Blood Count 3.71 4.60-5.80 X10*6/uL Hemoglobin 12.1 14.0-18.0 g/dl Hematocrit 37.8 42.0-52.0 % Mean Corpuscular Volume 101.9 80.0-98.0 fL Mean Corpuscular Hemoglobin 32.6 27.0-33.0 pg Mean Corpuscular HGB Conc 32.0 31.0-36.0 g/dl Red Cell Distribution Width 12.9 11.0-16.0 % Platelet Count 196 160-400 X10*3/uL Mean Platelet Volume 11.3 9.4-12.4 fL Neutrophils Percent Auto 53.0 45-73 % Imm Gran Pct Auto 0.3 0.0-0.4 % Lymphocytes Percent Auto 32.9 20-40 % Monocytes Percent Auto 10.3 2-11 % Eosinophils Percent Auto 3.0 0-4 % Basophils Percent Auto 0.5 0-2 % NRBC Pct Auto 0.0 0.0-0.2 /100WBC Neutrophils Absolute Auto 5.3 2.0-8.3 x10*3/u L Imm Gran Abs Auto 0.03 0.00-0.03 X10*3/uL Lymphocytes Absolute Auto 3.3 1.2-4.9 X10*3/u L Monocytes Absolute Auto 1.0 0.1-1.2 X10*3/uL Eosinophils Absolute Auto 0.3 0.0-0.4 X10*3/u L Basophils Absolute Auto 0.1 0.0-0.2 X10*3/uL NRBC Abs Auto 0.000 0.0-0.012 X10*3/uL Comprehensive [place]. Panel Fa st Reviewed date:02/21/2025 05:34:56 PM Interpretation: Performing Lab:[facility], [address] [place] [phone] Notes/Report: Sodium 143 135-145 mmol/L Potassium 3.8 3.3-5.1 mmol/L Chloride 93 96-108 mmol/L Carbon Dioxide 42 22-29 mmol/L Critical value for test(s): BIC Results called to and read back by: HERMINIA Lu Person calling: TONY Date: 02/19/25 Time: 1144 Anion Gap 12 12-20 Blood Urea Nitrogen 21 9-16 mg/dL Creatinine 1.05 0.5-1.4 mg/dL Estimated Glomerular Filt Rate > 60 Chronic Kidney Disease: Estimated GFR < 60 mL/min/1.73m2 Severe Kidney Disease: Estimated GFR < 15 mL/min/1.73m2 Glucose Fasting 99 60-99 mg/dL Calcium 9.2 8.4-10.2 mg/dL Bilirubin Total 0.5 0.0-1.0 mg/dL Aspartate Amino Transferase 35 5-37 U/L Alanine Aminotransferase 26 0-40 U/L Total Protein 7.2 6.5-8.0 g/dL Albumin Level 3.9 3.5-5.0 g/dL Alkaline Phosphatase 92 39-117 U/L IRON PROFILE Reviewed date:02/19/2025 12:44:54 PM Interpretation: Performing Lab:[address] [phone] Notes/Report: Iron 63 45-160 mcg/dL Total Iron Binding Capacity 271 228-428 mcg/d L Percent Iron Saturation 23 15-50 % Unsaturated Iron Binding 208 Lipid Panel Reviewed date:02/19/2025 12:44:14 PM Interpretation: Performing Lab:[facility], [address] [place] [phone] Notes/Report: Triglycerides 129 <150 mg/dL Desirable Triglyceride: less than 150 mg/dL Borderline High Triglyceride 150-199 mg/dL High Triglyceride: 200-499 mg/dL Very High Triglyceride: greater than or equal to 5OO mg/dL Cholesterol 143 <200 mg/dL Desirable Cholesterol: less than 200 mg/dL Borderline High Cholesterol: 200-239 mg/dL High Cholesterol: greater than 239 mg/dL LDL Cholesterol Calculated 73 <100 mg/dL Desirable LDL: less than 100 mg/dL Near Optimal/Above Optimal LDL: 110-129 mg/dL Borderline High LDL: 130-159 mg/dL High LDL: 160-189 mg/dL Very High LDL: greater than or equal to 190 mg/dL HDL Cholesterol 45 >40 mg/dL Desirable HDL: greater than 40 mg/dL Note: This HDL assay may give artificially low results in patients with liver disease. PSA,Total (Free>4and<10) Reviewed date:02/19/2025 12:45:04 PM Interpretation: Performing Lab:[facility], [address] [place] [phone] Notes/Report: PSA,Total (Free>4and<10) < 0.10 0.00-4.00 ng/mL A Free PSA was not performed: The percentage of Free PSA can be used to enhance the differentiation of prostate cancer from benign prostatic disease in subjects whose PSA levels are between 4.0 and 10.0 ng/mL. For subjects whose PSA levels are below 4.0 or above 10.0 ng/mL, the risk of prostate cancer is determined on the basis of the PSA alone. Therefore the % Free PSA is recommended only for those subjects whose PSA levels are between 4.0 and 10.0 ng/mL. PSA methodology: Robert Alinity i Chemiluminescent Microparticle Immunoassay (CMIA) UA ClnCatch+Micro w/rflx Cul t Reviewed date:02/21/2025 05:39:18 PM Interpretation: Performing Lab:[facility], [address] [place] [phone] Notes/Report: Urine, Clean Catch Color Urine Dark Yellow Appearance Urine Clear PH 6.5 5.0-9.0 Glucose Urine UA Negative Negative mg/dL Urine Blood Negative Negative Specific Pollock - Urine 1.025 1.005-1.025 Urine Protein 30 (1+) Neg-Trace mg/dL Urine Ketones Trace Negative mg/dL Nitrite Urine Negative Negative Leukocyte Esterase Urine Negative Negative RBC Urine 0-2 0-2 /HPF WBC Urine 0-5 0-5 /HPF Squamous Epithelial Cell Urine 0-2 0-2 /HPF Bacteria Urine None Seen None Seen Hyaline Casts Urine 0-2 0-2 /LPF INR WHOLE BLOOD POC Reviewed date:03/05/2024 12:36:41 PM Interpretation: Performing Lab:[facility], [address] [place] [phone] Notes/Report: PT, INR - [facility] 3.1 0.9-1.1 METER #: [id number] INTERNATIONAL NORMALIZED RATIO (INR) REFERENCE RANGES Reference [...] date:03/05/2024 01:47:57 PM Interpretation: Performing Lab:[facility], [address] [place] [phone] Notes/Report: Prothrombin Time Whole Bld POC 37.0 11.1-13.5 sec INR WHOLE BLOOD POC Reviewed date:03/26/2024 12:01:11 PM Interpretation: Performing Lab:[facility], [address] [place] [phone] Notes/Report: PT, INR - Anti Coag Clinic 2.6 0.9-1.1 METER #: [id number] INTERNATIONAL NORMALIZED RATIO (INR) REFERENCE RANGES Reference [...] date:03/26/2024 05:06:03 PM Interpretation: Performing Lab:[facility], [address] [place] [phone] Notes/Report: Prothrombin Time Whole Bld POC 31.7 11.1-13.5 sec INR WHOLE BLOOD POC Reviewed date:04/16/2024 12:35:19 PM Interpretation: Performing Lab:[facility], [address] [place] [phone] Notes/Report: PT, INR - Anti Coag Clinic 2.5 0.9-1.1 METER #: [id number] INTERNATIONAL NORMALIZED RATIO (INR) REFERENCE RANGES Reference [...] date:04/16/2024 12:35:11 PM Interpretation: Performing Lab:[facility], [address] [place] [phone] Notes/Report: Prothrombin Time Whole Bld POC 29.5 11.1-13.5 sec INR WHOLE BLOOD POC Reviewed date:05/14/2024 10:10:53 AM Interpretation: Performing Lab:[facility], [address] [place] [phone] Notes/Report: PT, INR - Anti Coag Clinic 3.9 0.9-1.1 METER #: [id number] INTERNATIONAL NORMALIZED RATIO (INR) REFERENCE RANGES Reference [...] date:05/14/2024 10:10:44 AM Interpretation: Performing Lab:[facility], [address] [place] [phone] Notes/Report: Prothrombin Time Whole Bld POC 46.7 11.1-13.5 sec INR WHOLE BLOOD POC Reviewed date:05/28/2024 12:29:45 PM Interpretation: Performing Lab:[facility], [address] [place] [phone] Notes/Report: PT, INR - Anti Coag Clinic 2.3 0.9-1.1 METER #: [id number] INTERNATIONAL NORMALIZED RATIO (INR) REFERENCE RANGES Reference [...] date:05/28/2024 12:29:33 PM Interpretation: Performing Lab:[facility], [address] [place] [phone] Notes/Report: Prothrombin Time Whole Bld POC 27.5 11.1-13.5 sec INR WHOLE BLOOD POC Reviewed date:06/25/2024 11:32:23 AM Interpretation: Performing Lab:[facility], [address] [place] [phone] Notes/Report: PT, INR - Anti Coag Clinic 3.2 0.9-1.1 METER #: [id number] INTERNATIONAL NORMALIZED RATIO (INR) REFERENCE RANGES Reference [...] date:06/25/2024 12:15:50 PM Interpretation: Performing Lab:[facility], [address] [place] [phone] Notes/Report: Prothrombin Time Whole Bld POC 38.6 11.1-13.5 sec INR WHOLE BLOOD POC Reviewed date:07/09/2024 11:05:08 AM Interpretation: Performing Lab:[facility], [address] [place] [phone] Notes/Report: PT, INR - Anti Coag Clinic 2.3 0.9-1.1 METER #: [id number] INTERNATIONAL NORMALIZED RATIO (INR) REFERENCE RANGES Reference [...] date:07/09/2024 12:21:37 PM Interpretation: Performing Lab:[facility], [address] [place] [phone] Notes/Report: Prothrombin Time Whole Bld POC 27.5 11.1-13.5 sec INR WHOLE BLOOD POC Reviewed date:07/22/2024 02:12:43 PM Interpretation: Performing Lab:[address] [phone] Notes/Report: PT, INR - Anti Coag Clinic 1.8 0.9-1.1 METER #: [id number] INTERNATIONAL NORMALIZED RATIO (INR) REFERENCE RANGES Reference [...] date:07/22/2024 02:18:21 PM Interpretation: Performing Lab:[facility], [address] [place] [phone] Notes/Report: Prothrombin Time Whole Bld POC 21.8 11.1-13.5 sec INR WHOLE BLOOD POC Reviewed date:08/04/2024 12:06:47 PM Interpretation: Performing Lab:[facility], [address] [place] [phone] Notes/Report: PT, INR - [facility]ag [facility] 2.2 0.9-1.1 METER #: [id number] INTERNATIONAL NORMALIZED RATIO (INR) REFERENCE RANGES Reference [...] date:08/04/2024 12:04:48 PM Interpretation: Performing Lab:[facility], [address] [place] [phone] Notes/Report: Prothrombin Time Whole Bld POC 25.9 11.1-13.5 sec Hold Gold Reviewed date:08/20/2024 12:43:27 PM Interpretation: Performing Lab:[facility], [address] [place] [phone] Notes/Report: Hold Gold See Note Specimen held untested for 24 hours; Call to request Chemistry testing. INR WHOLE BLOOD POC Reviewed date:08/25/2024 07:57:52 PM Interpretation: Performing Lab:[facility], [address] [place] [phone] Notes/Report: PT, INR - [facility]ag [facility] 2.1 0.9-1.1 METER #: [id number] INTERNATIONAL NORMALIZED RATIO (INR) REFERENCE RANGES Reference [...] date:08/25/2024 07:57:59 PM Interpretation: Performing Lab:[facility], [address] [place] [phone] Notes/Report: Prothrombin Time Whole Bld POC 25.6 11.1-13.5 sec INR WHOLE BLOOD POC Reviewed date:09/15/2024 09:59:14 AM Interpretation: Performing Lab:[facility], [address] [place] [phone] Notes/Report: PT, INR - [facility]ag [facility] 3.0 0.9-1.1 METER #: [id number] INTERNATIONAL NORMALIZED RATIO (INR) REFERENCE RANGES Reference [...] date:09/15/2024 12:33:10 PM Interpretation: Performing Lab:[facility], [address] [place] [phone] Notes/Report: Prothrombin Time Whole Bld POC 35.5 11.1-13.5 sec INR WHOLE BLOOD POC Reviewed date:10/06/2024 04:22:44 PM Interpretation: Performing Lab:[facility], [address] [place] [phone] Notes/Report: PT, INR - [facility]ag [facility] 2.0 0.9-1.1 METER #: [id number] INTERNATIONAL NORMALIZED RATIO (INR) REFERENCE RANGES Reference [...] date:10/06/2024 04:22:36 PM Interpretation: Performing Lab:[facility], [address] [place] [phone] Notes/Report: Prothrombin Time Whole Bld POC 23.5 11.1-13.5 sec Prostate Specific Antigen Reviewed date:10/09/2024 11:16:46 AM Interpretation: Performing Lab:[facility], [address] [place] [phone] Notes/Report: Prostate Specific Antigen < 0.10 <0.05-4.0 ng/mL PSA methodology: [employer] Alinity i Chemiluminescent Microparticle Immunoassay (CMIA) INR WHOLE BLOOD POC Reviewed date:10/27/2024 11:14:11 AM Interpretation: Performing Lab:[facility], [address] [place] [phone] Notes/Report: PT, INR - [facility] 2.0 0.9-1.1 METER #: [id number] INTERNATIONAL NORMALIZED RATIO (INR) REFERENCE RANGES Reference [...] date:10/27/2024 11:14:04 AM Interpretation: Performing Lab:[facility], [address] [place] [phone] Notes/Report: Prothrombin Time Whole Bld POC 23.7 11.1-13.5 sec INR WHOLE BLOOD POC Reviewed date:11/10/2024 12:18:48 PM Interpretation: Performing Lab:[facility], [address] [place] [phone] Notes/Report: PT, INR - [facility] 1.8 0.9-1.1 METER #: [id number] INTERNATIONAL NORMALIZED RATIO (INR) REFERENCE RANGES Reference [...] date:11/10/2024 12:18:37 PM Interpretation: Performing Lab:[facility], [address] [place] [phone] Notes/Report: Prothrombin Time Whole Bld POC 21.5 11.1-13.5 sec INR WHOLE BLOOD POC Reviewed date:11/24/2024 12:04:29 PM Interpretation: Performing Lab:[facility], [address] [place] [phone] Notes/Report: PT, INR - [facility] 2.4 0.9-1.1 METER #: [id number] INTERNATIONAL NORMALIZED RATIO (INR) REFERENCE RANGES Reference [...] date:11/24/2024 12:04:21 PM Interpretation: Performing Lab:[facility], [address] [place] [phone] Notes/Report: Prothrombin Time Whole Bld POC 28.2 11.1-13.5 sec INR WHOLE BLOOD POC Reviewed date:12/17/2024 12:38:14 PM Interpretation: Performing Lab:[facility], [address] [place] [phone] Notes/Report: PT, INR - [facility]ag [facility] 2.0 0.9-1.1 METER #: [id number] INTERNATIONAL NORMALIZED RATIO (INR) REFERENCE RANGES Reference [...] date:12/17/2024 12:51:29 PM Interpretation: Performing Lab:[facility], [address] [place] [phone] Notes/Report: Prothrombin Time Whole Bld POC 23.9 11.1-13.5 sec INR WHOLE BLOOD POC Reviewed date:01/07/2025 10:59:51 AM Interpretation: Performing Lab:[facility], [address] [place] [phone] Notes/Report: PT, INR - Anti [facility]ag Clinic 2.2 0.9-1.1 METER #: [id number] INTERNATIONAL NORMALIZED RATIO (INR) REFERENCE RANGES Reference [...] date:01/07/2025 10:59:22 AM Interpretation: Performing Lab:[facility], [address] [place] [phone] Notes/Report: Prothrombin Time Whole Bld POC 26.4 11.1-13.5 sec INR WHOLE BLOOD POC Reviewed date:02/04/2025 02:25:43 PM Interpretation: Performing Lab:[facility], [address] [place] [phone] Notes/Report: PT, INR - Anti Coag Clinic 3.3 0.9-1.1 METER #: [id number] INTERNATIONAL NORMALIZED RATIO (INR) REFERENCE RANGES Reference [...] date:02/04/2025 11:35:29 AM Interpretation: Performing Lab:[facility], [address] [place] [phone] Notes/Report: Prothrombin Time Whole Bld POC 39.1 11.1-13.5 sec Reason For Referral No Information Medications Medication SIG (Take, Route, Frequency, Duration) Notes Start Date End Date Status Atorvastatin Calcium 40 MG 1 tablet Oral ly Once a day Active Carvedilol 3.125 MG 1 tablet with food Orally Twice a day Active Albuterol Sulfate (sensor) 108 (90 Base) MCG/ACT 1 puff as needed Inhalation every 4 hrs Active Ipratropium-Albuterol 0.5-2.5 (3) MG/3ML 3 ml as needed Inhalation every 6 hrs 10/30/2021 Active Furosemide 40 MG TAKE 1 TABLET BY NIGEL TH EVERY DAY for 90 Active Ocuflox 0.3 % 1 drop into affected eye Ophthalmic Four times a day for 7 days 05/29/2022 Not-Takin g Bicalutamide 50 MG 1 tablet Orally Once a day for 30 day(s) Not-Taking oxyBUTYnin Chloride 5 MG TAKE 1 TABLET B Y MOUTH DAILY for 90 Not-Taking Zolpidem Tartrate 5 MG TAKE 1 TABLET BY MOUTH DAILY AT BEDTIME Orally Once a day for 30 days 02/08/2025 Active Ventolin HFA 108 (90 Base) MCG/ACT 2 puffs as needed Inhalation every 4 hrs for 30 days 01/26/2013 Not-Taking amLODIPine Besylate 5 MG 1 tablet Orally Once a day 04/14/2021 Not-Taking Vitamin B12 1000 MCG 1 tablet Orally Onc e a day for 30 day(s) Active Fioricet 50-300-40 MG 1 capsule as neede d Orally every 12 hrs as needed for 7 days 07/07/2024 Not-Taking Nystatin 309857 UNIT/GM 1 application Externally Twice a day for 30 days 05/29/2022 Active Meclizine HCl 25 MG 1 tablet as needed Orally Once a day as needed for 30 days Not-Taking Wixela Inhub 250-50 MCG/DOSE 1 puff Inhalation Twice a day Not-Taking Tamsulosin HCl 0.4 MG TAKE 1 CAPSULE BY MOUTH TWICE DAILY Active Nystatin-Triamcinolone 278459-3.1 UNIT/GM 1 application Externally Twice a day for 10 days 03/14/2020 Not-Taking Famotidine 40 MG TK 1 T PO QD HS FOR 14 DAYS Oral for 14 Not-Taking Warfarin Sodium 3 MG TAKE 2 TO 2 AND 1/2 TABLETS BY MOUTH DAILY for 30 Active Cyclobenzaprine HCl 5 MG 1 tablet Orally Three times a day for 10 days Not-Taking Immunizations Vaccine Route Administration Date Status Comme nts Flu Vaccine IM Intramuscular 08/20/2011 Administered Flu Vaccine IM Intramuscular 08/19/2012 Administered PPSV23 (Pnemovax) IM Intramuscular 02/23/2013 Administered Flu Vaccine IM Intramuscular 07/10/2013 Administered Fluarix Quadrivalent IM Intramuscular 06/21/2014 Administe red Fluarix Quadrivalent IM Intramuscular 07/04/2015 Administe red Fluarix Quadrivalent IM Intramuscular 06/21/2016 Administe red Fluarix Quadrivalent IM Intramuscular 06/24/2017 Administe red Fluarix Quadrivalent Unknown 08/05/2018 Administered At [facility] Influenza High Dose IM Intramuscular 08/03/2019 Administer ed Influenza High Dose IM Intramuscular 06/17/2020 Administer ed Covid Vaccine Unknown 11/29/2020 Administered Pfizer Covid Vaccine Unknown 12/20/2020 Administered Pfizer Influenza High Dose IM Intramuscular 06/29/2021 Administer ed SARS-COV-2 Pfizer Unknown 06/30/2021 Administered SARS-COV-2 Pfizer Unknown 01/11/2022 Administered Influenza High Dose Unknown 06/14/2022 Administered Jeffery lou's Prevnar 13 Unknown 05/17/2014 Refused Shingles Unknown [...] Problem Status W/U Status Risk Notes Problem 27390897 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 Problem Insomnia (790461010) Insomnia (G47.00) Active confirmed Problem 8559839 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) Active confirmed Problem Cataract (977992054) Unspecified cataract (H26.9) Active confirmed Problem Conductive hearing loss, bilateral (637238858) Conductive hearing loss, 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) Active confirmed Problem 6897349 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) Active confirmed Problem 80559082 Essential hypert ension (I10) Active confirmed Problem 532688763 Prostate cancer (C61) Active confirme d Problem 6417650 Psoriasis (L40.9) Active confirmed Problem 816886902 Lung nodule (R91.1) Active confirmed Problem Low testosterone (630623396) Low testosterone (E29.1) Active confirmed Problem 1893755394831304 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 Problem 714239302 Lung nodules (R91.8) Active confirmed Problem 436508820 Cervical disc di sease (M50.90) Active confirmed Problem 646453741 Tension headache (G44.209) Active confirmed Problem 4146839 Former smoker (Z87.891) Active confirmed Problem Acute exacerbation of chronic obstructive airways disease (763578835) COPD exacerbation (J44.1) Active confirmed Problem 43609623 Dysthymia (F34.1) Active confirmed Problem Iron deficiency anemia (72460803) Iron deficiency anemia, unspecified iron deficiency anemia type (D50.9) Active confirmed Problem 77219377 Atrial fibrillat ion, unspecified type (I48.91) Active confirmed Problem 3713749 Urinary obstruct ion (N13.9) Active confirmed Problem Leukocytosis (170722275) Elevated WBC count (D72.829) Active confirmed Problem 09387753 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 confirmed Problem 516202139 Pure hypercholesterolemia (E78.00) Active confirmed Problem 964311800 BMI 30.0-30.9,ad ult (Z68.30) Active confirmed Problem 838398075 COPD with exacer bation (J44.1) Active confirmed Problem 054453165 Hypertensive cri sis (I16.9) Active confirmed Problem Gout (48246971) Acute gout, unspecified cause, unspecified site (M10.9) Active confirmed Problem 26857814 COPD without exacerbation (J44.9) Active confirmed Problem Gout (07366097) Acute gout of ri ght knee, unspecified cause (M10.9) Active confirmed Problem 270221122 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 Vital Signs Blood pressure diastolic 60 mm Hg 02/26/2025 Height 65 in 02/26/2025 Blood pressure systolic 132 mm Hg 02/26/2025 Weight 183 lbs 02/26/2025 BMI 30.45 kg/m2 02/26/2025 Encounters Encounter Location Date Provider Diagnosis Jake Pepper MD [address] [place] [address] [id number] 08/20/2024 Jake Pepper Pure hypercholestero lemia E78.00 Jake Pepper MD [address] [place] [address] [id number] 02/19/2025 Jake Pepper Blood tests for rout ine general physical examination Z00.00 ; Essential hypertension I10 ; Pure hypercholesterolemia E78.00 and Iron deficiency anemia, unspecified iron deficiency anemia type D50.9 Jake Pepper MD [address] [place] [address] [id number] 02/26/2025 Jake Pepper Essential hypertensi on I10 ; Annual physical exam Z00.00 ; Panlobular emphysema J43.1 ; Pure hypercholesterolemia E78.00 ; Dysthymia F34.1 ; Iron deficiency anemia, unspecified iron deficiency anemia type D50.9 and Depression screening Z13.31 Jake Pepper MD [address] [place] [address] [id number] 07/07/2024 Jake Pepper Tension headache G44 .209 Jake Pepper MD [address] [place] [address] [id number] 08/27/2024 Jake Pepper Essential hypertensi on I10 ; Pure hypercholesterolemia E78.00 ; Atrial fibrillation, unspecified type I48.91 and COPD without exacerbation J44.9 Jake Pepper MD [address] [place] [address] [id number] 01/22/2025 Jake Pepper Panlobular emphysema J43.1 ; Atrial fibrillation, unspecified type I48.91 and Unspecified cataract H26.9 Jake Pepper MD [address] [place] [address] [id number] 12/21/2024 Jkae Pepper MD [address] [place] [address] [id number] 02/19/2025 Jake Pepper MD [address] [place] [address] [id number] 03/05/2024 Jake Pepper MD [address] [place] [address] [id number] 03/05/2024 Jake Pepper Panlobular emphysema J43.1 Jake Pepper MD [address] [place] [address] [id number] 03/08/2024 Jake Bombardier Insomnia G47.00 Jake Pepper MD [address] [place] [address] [id number] 06/07/2024 Jake Bombardier Insomnia G47.00 Jake Peppre MD [address] [place] [address] [id number] 07/07/2024 Jake Bombardier Insomnia G47.00 Jake Pepper MD [address] [place] [address] [id number] 08/06/2024 Jake Bombardier Insomnia G47.00 Jake Pepper MD [address] [place] [address] [id number] 09/02/2024 Jake Bombardier Insomnia G47.00 Jake Pepper MD [address] [place] [address] [id number] 10/05/2024 Jake Bombardier Insomnia G47.00 Jake Pepper MD [address] [place] [address] [id number] 11/08/2024 Jake Bombardier Insomnia G47.00 Jake Pepper MD [address] [place] [address] [id number] 12/07/2024 Jake Bombardier Insomnia G47.00 Jake Pepper MD [address] [place] [address] [id number] 01/06/2025 Jake Bombardier Insomnia G47.00 Jake Pepper MD [address] [place] [address] [id number] 02/05/2025 Jake Bombardier Insomnia G47.00 Jake Pepper MD [address] [place] [address] [id number] 02/10/2025 Jake Pepper MD [address] [place] [address] [id number] 02/12/2025 Jake Pepper Assessments Encounter Date Diagnosis (ICD Code) Assessment Notes Treatment Notes Treatment Clinical Notes Section Notes 08/20/2024 Pure hypercholesterolemia (ICD-10 - E78.00) 02/19/[address] ine general physical examination (ICD-10 - Z00.00) 02/19/2025 Essential hypertensi on (ICD-10 - I10) 02/26/2025 Essential hypertensi on (ICD-10 - I10) doing well, will continue current regiment 02/26/2025 Annual physical exam (ICD-10 - Z00.00) labs [...] G47.00) 02/19/2025 Pure hypercholesterolemia (ICD-10 - E78.00) 02/26/2025 Panlobular emphysema (ICD-10 - J43.1) stable on meds and o2, will continue current regiment 08/27/2024 Atrial fibrillation, unspecified type (ICD-10 - I48.91) rate stable 01/22/2025 Unspecified cataract (ICD-10 - H26.9) patient has no desire to get cataracts done and feels his vision is satisfactory. will cancel his surgery/ [facility] was called with this info 02/19/2025 Iron deficiency anem ia, unspecified iron deficiency anemia type (ICD-10 - D50.9) 02/26/2025 Pure hypercholesterolemia (ICD-10 - E78.00) doing well on meds, will cntinue current regiment 08/27/2024 COPD without exacerbation (ICD-10 - J44.9) stable 02/26/2025 Dysthymia (ICD-10 - F34.1) seeems well not actually depressed, will continue current regiment 02/26/2025 Iron deficiency anem ia, unspecified iron deficiency anemia type (ICD-10 - D50.9) stable, will continue to monitor 02/26/2025 Depression screening (ICD-10 - Z13.31) negative screen Plan Of Treatment Pending Test Test Name Order Date Electrocardiogram (EKG) 12/16/2015 Electrocardiogram (EKG) 01/30/2019 XR CHEST 2 VIEW PA & LAT 02/16/2022 XR GI SERIES 10/15/2022 Folate 02/09/2021 Future Test Test Name Order Date CT chest wo con 02/04/2023 Next Appt Details Provider Name:Jake schmidt, 08/19/2025 07:00:00 AM, [address] [place] [address], [address], [phone], Provider Name:Jake schmidt, 08/26/2025 10:00:00 AM, [address] [place] [address], [address], [phone], Provider Name:Jake zambranor, 02/24/2026 07:15:00 AM, [address] [place] [address], [address], [phone], Provider Name:Jake zambranor, 03/03/2026 09:30:00 AM, [address] [place] [address], [address], [phone], Insurance Providers Payer Name Payer Address Payer Phone Subscriber Number Group Number Insured Name Patient Relationship to Insured Coverage Start Date Coverage End Date [employer] [facility] [address] [place] [phone] [id number] Kalyan Nguyen Self - patient is the insured MEDICARE [employer] [address] [place] [id number] Kalyan Nguyen Self - patient is the insured Medical (General) History Medical History History ICD Code 03/2004 - colonoscopy (repea t 10 years); colonoscopy [address] Rajput Smoker unmotivated to quit F17.210 biculatimide and finasteraide for prosta te cancer Surgical History Surgery Date(Month/Year) Repair of Umbilical Hernia w/Mesh (Dr. Darrell guido) 04/2019
[2025-03-04 09:49] LABS: ~PT, ~INR - Anti Coag Clinic 2.6 (0.9-1.1)
--- NOTE | 2025-03-04 09:57 | MHC.OFFVISCO ---
Intake Intake Visit Reasons: Anticoagulation Allergies pneumococcal vaccine [PNEUMOCOCCAL VACCINE] Allergy (Intermediate, Verified 03/04/25 09:36) RASH amoxicillin [From Augmentin] Allergy (Unknown, Verified 03/04/25 09:36) Swelling clavulanic acid [From Augmentin] Allergy (Unknown, Verified 03/04/25 09:36) Swelling theophylline Adverse Reaction (Intermediate, Verified 03/04/25 09:36) Loss of Appetite Medication List - Last Reconciled 03/04/25 by Gertrudis Simeon RN albuterol sulfate 90 mcg/actuation 2 puffs PO Q2H PRN atorvastatin 40 mg PO DAILY carvedilol 6.25 mg PO BID cyanocobalamin (vitamin B-12) 1,000 mcg PO DAILY fluorouracil 5% 1 appl topical DAILY furosemide 60 mg (1.5 x 40 mg) PO DAILY ipratropium-albuterol 0.5 mg-3 mg(2.5 mg base)/3 mL 3 mL inhalation Q6H 30 days loperamide (Imodium A-D) PO PRN multivitamin (One Daily Multivitamin tablet) 1 tab PO DAILY revefenacin (Yupelri) 175 mcg (3 mL) inhalation DAILY tamsulosin 0.4 mg PO BID 90 days warfarin See Protocol 6mg X6 days and 4.5mg X1 day orally, Take medication 1-2 tabs as directed per anticoagulation clinic based on your INR zolpidem 5 mg PO BEDTIME PRN Nursing Note INR: 2.6 in therapeutic range Medications and supplements reviewed No changes in health, diet, medications, or supplements, Denies any signs and symptoms of bleeding or bruising or clotting. Bleeding, bruising, clotting discussed Nutritional guidance given Dose: 4.5MG X 1 DAY/ 6MG X 6 DAYS F/U INR: 1 MONTH Patient AND verbalizes understanding of instructions given Anti-Coag Initial Assessment Social Hx Patient Tobacco Use Status: Former Tobacco user alcohol intake: current Alcohol intake frequency: 0-2 drinks per day Cardiovascular Hx: HTN, LA (non stemi) and Arrhythmias (afib) Lung Disease HX: COPD Musculoskeletal Hx: Gout Blood Disorder Hx: Hyperlipidemia GI Hx: Hemorrhoids Hx: Kidney Disease (naren) and Prostate (prostate cancer) Cancer HX: Yes Psych. Illness/Depression: No Coding Level of Care Code Est Patient Level 1 Diagnoses Current use of anticoagulant therapy Z79.01 Results AMB INR Fingerstick AMB INR Fingerstick 2.6 Last Edit by Gertrudis Simeon RN on 03/04/25 09:53 manual entry Assessment & Plan Assessment & Plan (1) Current use of anticoagulant therapy: Code(s): Z79.01 - long term care phlebotomist (current) use of anticoagulants Category: Medical Medications: Changed From warfarin See Protocol 6mg X6 days and 4.5mg X1 day orally as directed; Take medication as directed per anticoagulation clinic based on your INR blood test results, per anticoag clinic, dose is still in adjustment phase taking 6 mg X6 days and 4.5mg X1 day. 30 days 60 tabs 5RF To warfarin See Protocol 6mg X6 days and 4.5mg X1 day orally, Take medication 1-2 tabs as directed per anticoagulation clinic based on your INR
== END 2025-03-04 10:00 | disposition home or self-care (01) ==
LOC: HO.ACS 09:19
PROVIDERS: PCP Internal Medicine; Visit Provider Internal Medicine Medical Oncology
DX: Z79.01 Long term (current) use of anticoagulants (principal)

== ENCOUNTER → 2025-03-04 09:19 | Outpatient (BNVA) | payer MEDICARE, SELFPAY | PROVIDERS: PCP Internal Medicine; Visit Provider Internal Medicine Medical Oncology | DX: I48.0 Paroxysmal atrial fibrillation (principal); Z79.01 Long term (current) use of anticoagulants; Z51.81 Encounter for therapeutic drug level monitoring | CPT/HCPCS: 85610; 99211 ==

== ENCOUNTER 2025-03-20 15:47 | Inpatient (IN) | payer MEDICARE, SELFPAY ==
--- NOTE | ~2025-03-20 | CT_ITS ---
CLINICAL HISTORY: severe facial swelling neck to suborbital area CT soft tissue neck with contrast Comparison: None Findings: Left periorbital skin thickening and infiltration of the subcutaneous fat. No acute orbital pathology. There is skin thickening and infiltration of the subcutaneous fat of the lower lip left mandibular region. No rim enhancing fluid collection. The airway is widely patent. Normal pharyngeal mucosa, oral cavity and larynx. No suspicious lymph nodes. Cervical lymph nodes measure up to 1.2 cm in short axis, likely infectious/inflammatory. Normal parotid and submandibular glands. Unremarkable thyroid. No acute pathology in the carotid space. Mild retropharyngeal course of the right carotid artery. Severe calcified atherosclerotic disease. There is 50% stenosis of the left proximal internal carotid artery. No acute fracture. Status post cervical posterior decompression Paraseptal emphysema measures up to 1.1 cm. Confluent centrilobular emphysema. Trace biapical scarring. Impression: Left preseptal cellulitis. No orbital cellulitis. Facial cellulitis without abscess. Associated cervical lymphadenopathy. The airway is widely patent. 50% stenosis of the left internal carotid artery. This document has been electronically signed by: Gabriela Oakes MD on 03/20/2025 21:04:47
--- NOTE | ~2025-03-20 | XR_ITS ---
CLINICAL HISTORY: dyspnea 3 days, hx COPD 2 view chest x-ray Comparison: 10/18/2023 Findings: The lungs are clear. Normal size heart. No acute fracture. IMPRESSION: 1. No acute findings. This document has been electronically signed by: Nain Coleman MD on 03/20/2025 17:27:28
--- NOTE | ~2025-03-20 | CT_ITS ---
CLINICAL HISTORY: LANDERS CT head without contrast Comparison: None Findings: No acute hemorrhage. No extra-axial fluid collection. No hydrocephalus, mass-effect or herniation. -white differentiation is maintained. There is patchy hypoattenuation of the periventricular and deep white matter, which is most likely the sequela of severe chronic small vessel ischemic disease. No acute orbital pathology. Left periorbital soft tissue swelling. No fracture. The visualized paranasal sinuses are predominantly clear. The mastoid air cells are clear. Impression: No acute intracranial findings. This document has been electronically signed by: Gabriela Oakes MD on 03/20/2025 21:05:30
--- NOTE | 2025-03-20 15:58 | ED.GENADULT ---
HPI - General Adult General Chief complaint: General Medical Stated complaint: sob, yeast infection for mouth, swollen left face Time Seen by Provider: 03/20/25 16:23 Source: patient Mode of arrival: ambulatory Limitations: no limitations History of Present Illness ED Provider: HPI narrative: 84-year-old gentleman, greater than 50 pack-year smoker, quit 2018 followed for moderate to severe COPD supplementary oxygen at 2 L dependent with a history of hypotension, gout, AFib on Coumadin been treated with Diflucan for last 3 days for oral thrush which is going on for last 1 week for last 3 days patient noticed as redness spreading from the lips to the left side of the face spreading to the scalp Related Data Home Medications ?Medication ?Instructions ?Recorded ?Confirmed albuterol sulfate 90 mcg/actuation 2 puff PO Q2H PRN Shortness Of 09/07/20 03/04/25 aerosol inhaler Breath Or Wheezing cyanocobalamin (vitamin B-12) 1,000 mcg PO DAILY 09/13/23 03/04/25 1,000 mcg capsule multivitamin (One Daily 1 tab PO DAILY 09/13/23 03/04/25 Multivitamin tablet) fluorouracil 5 % topical cream 1 appl topical DAILY 09/16/23 03/04/25 loperamide [Imodium A-D] PO PRN 01/30/24 03/04/25 zolpidem 5 mg tablet 5 mg PO BEDTIME PRN 02/04/25 03/04/25 warfarin 3 mg tablet See Rx Instructions PO DIRECTED 03/04/25 03/04/25 Previous Rx's ?Medication ?Instructions ?Recorded atorvastatin 40 mg tablet 40 mg PO DAILY #90 tabs 07/30/24 ipratropium 0.5 mg-albuterol 3 mg 3 ml inhalation Q6H wheezing 30 09/21/24 (2.5 mg base)/3 mL nebulization days #270 mL soln tamsulosin 0.4 mg capsule 0.4 mg PO BID 90 days #180 caps 11/02/24 furosemide 40 mg tablet 60 mg (1.5 x 40 mg) PO DAILY #135 11/03/24 tabs revefenacin 175 mcg/3 mL solution 175 mcg (3 mL) inhalation DAILY 12/18/24 for nebulization (Jadei) #90 mL carvedilol 6.25 mg tablet 6.25 mg PO BID #180 tabs 01/26/25 Allergies Allergy/AdvReac Type Severity Reaction Status Date / Time pneumococcal vaccine Allergy Intermediate RASH Verified 03/20/25 16:02 [PNEUMOCOCCAL VACCINE] amoxicillin [From Augmentin] Allergy Unknown Swelling Verified 03/20/25 16:02 clavulanic acid Allergy Unknown Swelling Verified 03/20/25 16:02 [From Augmentin] theophylline AdvReac Intermediate Loss of Verified 03/20/25 16:02 Appetite Review of Systems Review of Systems: Yes all other systems are reviewed and are negative [facility] Past Medical History Medical History (Updated 03/20/25 @ 20:36 by Winifred Ascencio RN) Non-STEMI (non-ST elevated myocardial infarction) Paronychia Hypertensive emergency Vertigo Permanent atrial fibrillation Radiation cystitis High cholesterol Gout Hypertension Essential hypertension Prostate cancer Pulmonary nodules COPD (chronic obstructive pulmonary disease) Surgical History History of spinal surgery Family History Family History Father No problems noted. Mother No problems noted. Social History Social History Housing: House Alcohol intake: never Patient Tobacco Use Status: Former Tobacco user Years Smoked: 60 yrs Smoked in Last 30 Days: No Second Hand Smoke Exposure: No Use of substances other than those prescribed or required for medical reasons: No Advance Directives: No Advance Directives Information Provided: Yes Nutrition Risks: No Nutritional Risk service: Yes Current occupational status: retired Current occupation: retired- [employer] Current occupational exposures/hazards: No Physical Exam ED Vital Signs: Vital Signs - 24 hr 03/20/25 15:59 03/20/25 18:16 03/20/25 19:03 Temperature 98.7 F Pulse Rate 92 90 102 H Respiratory Rate 18 16 24 H Blood Pressure 128/61 141/71 H Pulse Oximetry 96 93 Oxygen Delivery Method Nasal Cannula Oxymask Oxygen Flow Rate 2.5 BMI result Body Mass Index 27.1 Appearance: Alert. Oriented X3. No acute distress. Eyes: PERRLA, No Nystagmus ENT: Oral infected blisters V2 V3 trigeminal distribution with scab erythema rash on the left side of the face all the way to the left scalp with blisters with clear fluid Neck: Normal inspection. Neck supple. CVS: Irregularly irregular heart rate no murmur rub or gallop Pulses normal. Respiratory: No respiratory distress. Equal air entry bilateral, no wheezing/rales/rhonchi Abdomen: Soft and nontender. Bowel sounds are present, no mass palpable, no CVA tenderness Skin: Skin warm and dry. Cellulitic changes left side of the space and the forehead and the scalp Normal skin turgor. Extremities: No lower extremity edema. No calf tenderness Neuro: Oriented X 3. No motor deficit. No sensory deficit.No cerebellar signs , cranial nerves II-XII intact Course Course Course Narrative: This is a rapid medical exam performed by Ad Graves NP: Additional HPI, ROS, PE not included below will be deferred to primary provider. Patient is an 84-year-old male with history of permanent afib on warfarin, HTN, COPD on home O2, NSTEMI, prostate CA presenting with complaint of shortness of breath, left sided facial swelling, redness, thrush x [address] Gamboa prescribed fluconazole for the thrush. Complaining of left ear pain, can't get hearing aid into left ear due to swelling. Plan: EKG, labs, CXR Medications Administered Generic Name Dose Route Start Last Admin Trade Name Freq PRN Reason Stop Dose Admin Acetaminophen 650 mg 03/20/25 19:26 03/20/25 19:38 Acetaminophen 325 Mg Tablet PO 650 mg Q6H PRN Administration Pain, Mild 1-3,fever,headache Gabapentin 200 mg 03/20/25 21:00 03/20/25 20:38 Gabapentin 100 Mg Capsule PO 03/23/25 20:59 200 mg TID DA Administration Senna 17.2 mg 03/20/25 21:00 03/20/25 20:36 Sennosides 8.6 Mg Tablet PO 17.2 mg BEDTIME DA Administration Discontinued Medications Generic Name Dose Route Start Last Admin Trade Name Freq PRN Reason Stop Dose Admin Acetazolamide 250 mg 03/20/25 20:44 03/20/25 21:10 Acetazolamide 250 Mg Tablet PO 03/20/25 20:45 250 mg ONCE ONE Administration Albuterol Sulfate 2.5 mg/ 0 mg 03/20/25 18:00 03/20/25 18:13 Albuterol/Ipratropium 3 ml INHALE 03/20/25 18:01 5 dose ONCE ONE Administration Vancomycin HCl 1,500 mg/ 500 mls @ 333.333 mls/hr 03/20/25 16:37 03/20/25 17:58 Sodium Chloride IV 03/20/25 18:06 Infused ONCE ONE Infusion Fluconazole 200 mg in 100 mls @ 100 mls/hr 03/20/25 16:37 03/20/25 19:27 Diflucan IV 03/20/25 17:36 Infused ONCE ONE Infusion Iohexol 65 ml 03/20/25 20:17 03/20/25 20:17 Iohexol 350 Mg/Ml 100 Ml Infus..Btl IV 03/20/25 20:18 65 ml ONCE ONE Administration Valacyclovir HCl 1,000 mg 03/20/25 19:31 03/20/25 19:44 Valacyclovir Hcl 1,000 Mg Tablet PO 03/20/25 19:32 1,000 mg ONCE ONE Administration Medical Decision Making Medical Decision Making MDM Narrative: Patient with infected vesicular lesions on the left side of the face in V2 V3 distribution likely infected herpes zoster with cellulitis is not clear whether patient might have thrush in the mouth will admit patient for infected status post zoster will also give a dose of Diflucan Differential Diagnosis Differential Diagnoses: The differential diagnosis associated with the presentation includes Infected herpes zoster/cellulitis/MRSA/oral thrush Admission/Observation Consideration of admission/observation: Escalation of care including admission/observation considered Consult Healthcare Provider Management of the patient was discussed with: Hospitalist Lab Data MDM Lab Attestation statement: I reviewed the patient's lab results. 03/20/25 16:16 03/20/25 16:16 Labs: Lab Results 03/20/25 03/20/25 Range/Units 16:16 16:53 WBC 7.1 (4.8-10.8) X10*3/uL RBC 3.88 L (4.60-5.80) X10*6/uL Hgb 12.7 L (14.0-18.0) g/dl Hct 39.1 L (42.0-52.0) % MCV 100.8 H (80.0-98.0) fL MCH 32.7 (27.0-33.0) pg MCHC 32.5 (31.0-36.0) g/dl RDW 12.9 (11.0-16.0) % Plt Count 159 L (160-400) X10*3/uL MPV 10.2 (9.4-12.4) fL Immature Gran % (Auto) 0.4 (0.0-0.4) % Neut % (Auto) 60.6 (45-73) % Lymph % (Auto) 25.2 (20-40) % [place] % (Auto) 12.6 H (2-11) % Eos % (Auto) 0.8 (0-4) % Baso % (Auto) 0.4 (0-2) % Lymph # (Auto) 1.8 (1.2-4.9) X10*3/uL [place] # (Auto) 0.9 (0.1-1.2) X10*3/uL Eos # (Auto) 0.1 (0.0-0.4) X10*3/uL Baso # (Auto) 0.0 (0.0-0.2) X10*3/uL Abs Immat Gran (auto) 0.03 (0.00-0.03) X10*3/uL Absolute Neuts (auto) 4.3 (2.0-8.3) x10*3/uL Absolute Nucleated RBC 0.000 (0.0-0.012) X10*3/uL Nucleated RBC % (auto) 0.0 (0.0-0.2) /100WBC PT 30.9 H (10.9-12.4) SEC INR 2.7 H (0.9-1.1) Sodium 143 (135-145) mmol/L Potassium 3.8 (3.3-5.1) mmol/L Chloride 89 L (96-108) mmol/L Carbon Dioxide 43 H* (22-29) mmol/L Anion Gap 15 (12-20) BUN 21 H (9-16) mg/dL Creatinine 1.37 (0.5-1.4) mg/dL Estim Creat Clear Calc 38.1 Estimated GFR 50 Random Glucose 109 (60-115) mg/dL Lactic Acid 0.9 (0.5-2.0) mmol/L Calcium 9.3 (8.4-10.2) mg/dL Magnesium 1.9 (1.6-2.6) mg/dL Total Bilirubin 0.7 (0.0-1.0) mg/dL AST 30 (5-37) U/L ALT 17 (0-40) U/L Alkaline Phosphatase 96 (39-117) U/L Troponin I High Sens 29.0 D (<3.5-35.0) ng/L B-Natriuretic Peptide 214 H (<100) pg/mL Total Protein 7.3 (6.5-8.0) g/dL Albumin 4.2 (3.5-5.0) g/dL Influenza Type A (PCR) NEGATIVE (Negative) Influenza Type B (PCR) NEGATIVE (Negative) RSV RNA Qual (PCR) NEGATIVE (Negative) SARS-CoV-2 RNA (RT-PCR) NEGATIVE (Negative) Independent Interpretation I performed an independent interpretation of an: EKG Interpretation: Atrial fibrillation with ventricular rate 94 beats per minute poor progression of R-wave no acute STT wave changes no acute ischemia Discharge Plan Discharge Clinical Impression: Cellulitis of face Patient Disposition: Admitted As Inpatient Interventions: Admission Worksheet (ED) Last Done: 03/20/25 20:36
[2025-03-20 15:59] VITALS: BP 128/61; PULSE 92; RESP 18; TEMP 37.1; O2SAT 96; BMI 27.1
--- NOTE | 2025-03-20 16:01 | ECG_ITS ---
Test Reason : dyspnea Blood Pressure : */* mmHG Vent. Rate : 94 BPM Atrial Rate : * BPM P-R Int : * ms QRS Dur : 88 ms QT Int : 332 ms P-R-T Axes : * 59 46 degrees QTcB Int : 415 ms Atrial fibrillation Septal infarct (cited on or before 18-Oct-2023) Abnormal ECG When compared with ECG of 18-Oct-2023 11:34, No significant changes seen Referred By: Lisette Graves Electronically Signed By: SHAGUFTA FRANCO MD
[2025-03-20 16:22] LABS: MANUAL DIFF FLAG NO
[2025-03-20 16:24] LABS: Basophils Percent Auto 0.4 % (0-2); Eosinophils Absolute Auto 0.1 X10*3/uL (0.0-0.4); Eosinophils Percent Auto 0.8 % (0-4); Hematocrit 39.1 % (42.0-52.0); Hemoglobin 12.7 g/dl (14.0-18.0); Imm Gran Abs Auto 0.03 X10*3/uL (0.00-0.03); Imm Gran Pct Auto 0.4 % (0.0-0.4); Lymphocytes Absolute Auto 1.8 X10*3/uL (1.2-4.9); Lymphocytes Percent Auto 25.2 % (20-40); Mean Corpuscular HGB Conc 32.5 g/dl (31.0-36.0); Mean Corpuscular Hemoglobin 32.7 pg (27.0-33.0); Mean Corpuscular Volume 100.8 fL (80.0-98.0); Mean Platelet Volume 10.2 fL (9.4-12.4); Monocytes Absolute Auto 0.9 X10*3/uL (0.1-1.2); Monocytes Percent Auto 12.6 % (2-11); Neutrophils Absolute Auto 4.3 x10*3/uL (2.0-8.3); Neutrophils Percent Auto 60.6 % (45-73); Platelet Count 159 X10*3/uL (160-400); Red Blood Count 3.88 X10*6/uL (4.60-5.80); Red Cell Distribution Width 12.9 % (11.0-16.0); White Blood Count 7.1 X10*3/uL (4.8-10.8)
[2025-03-20 16:30] LABS: INTERNATIONAL NORM RATIO 2.7 (0.9-1.1); Prothrombin Time 30.9 SEC (10.9-12.4)
[2025-03-20 16:44] LABS: Alanine Aminotransferase 17 U/L (0-40); Albumin Level 4.2 g/dL (3.5-5.0); Alkaline Phosphatase 96 U/L (39-117); Anion Gap 15 (12-20); Aspartate Amino Transferase 30 U/L (5-37); B Type Natriuretic Peptide 214 pg/mL (<100); Bilirubin Total 0.7 mg/dL (0.0-1.0); Blood Urea Nitrogen 21 mg/dL (9-16); Calcium 9.3 mg/dL (8.4-10.2); Carbon Dioxide 43 mmol/L (22-29); Chloride 89 mmol/L (96-108); Creatinine Clr Calc Pharmacy 38.1; Estimated Glomerular Filt Rate 50; Glucose Random 109 mg/dL (60-115); Magnesium 1.9 mg/dL (1.6-2.6); Potassium 3.8 mmol/L (3.3-5.1); Sodium 143 mmol/L (135-145); Total Protein 7.3 g/dL (6.5-8.0)
[2025-03-20] MEDS: vancomycin HCL 1,500 MG in 0.9 % Sodium Chloride 500 ML 333.33 MG IV (16:57)
[2025-03-20 16:59] LABS: Influenza A PCR NEGATIVE (Negative); Influenza B PCR NEGATIVE (Negative); Resp Syncy Virus RNA Qual PCR NEGATIVE (Negative); SARS COV2 PCR INHOUSE NEGATIVE (Negative)
[2025-03-20 17:29] LABS: Lactic Acid 0.9 mmol/L (0.5-2.0)
[2025-03-20] MEDS: Albuterol Sulfate 2.5 MG, Albuterol/Iprat 2.5/0.5MG 3 ML 3 ML INHALE (18:13)
[2025-03-20 18:16] VITALS: PULSE 90; RESP 16; O2SAT 98
[2025-03-20] MEDS: Fluconazole in NaCl,Iso-Osm 200 MG/100 ML PIGGYBACK 100 MG IV (18:28)
[2025-03-20 19:03] VITALS: BP 141/71; PULSE 102; RESP 24; O2SAT 93
--- NOTE | 2025-03-20 19:17 | PC.NURSE ---
pt sts he is not feeling o2 via NC- spO2 88-89% t/w observed pt mouth breathing - oxymask applied, spo2 improved to 90-91% on 2.5L
--- NOTE | 2025-03-20 19:28 | P.HPHOSP_ITS ---
History of Present Illness Date of Service: 03/20/25 Attending physician on admission: Zoraida Donovan Chief Complaint: Facial swelling Patient has an 84-year-old male with past medical history HFrEF, hypertension, permanent AFib on Coumadin, BPH, prostate cancer, COPD on home O2 3 L continuous, hyperlipidemia presents to ED per family for increasing SOB and noted facial swelling that per pt, started yesterday. Pt was started on Diflucan for thrush in the outpatient setting with no response. Patient offers that he does not have any of his venetie ira dentition. After examination suspect shingles outbreak affecting Left side of tongue and face from lower chin to left ear involving suborbital area. Pt states that his vision is unchanged. Pt has been having a posterior LANDERS as well, currently 5/10 after reeceiving tylenol. Pt denies chest pain, SOB at rest on oximask and abdominal pain. Pt is not having any chills or fever, N/V. Pt denies issues with diarrhea or constipation. Pt denies presence of rash anywhere else on body. Patient denies history of shingles and reports that he has not received the vaccination to prevent shingles outbreak. Review of Systems 2 Review of Systems: Patient denies any current chest pain, shortness of breath at rest, abdominal pain or nausea and vomiting. Patient is having some oral pain and difficulty swallowing. Patient states left ear so swollen he is not able to put in his hearing aid. Patient denies any recent falls, infections, upper respiratory infections or open wounds. Patient states that vision in left eye is at baseline. Patient has known cataracts and denies any pain in the left eye or significant vision loss or vision changes. Patient is having a posterior headache now 5/10 after Tylenol. Yes all other systems are reviewed and are negative [facility] Medical History (Updated 03/20/25 @ 20:36 by Winifred Ascencio RN) Non-STEMI (non-ST elevated myocardial infarction) [place] Hypertensive emergency Vertigo Permanent atrial fibrillation Radiation cystitis High cholesterol Gout Hypertension Essential hypertension Prostate cancer Pulmonary nodules COPD (chronic obstructive pulmonary disease) Cognitive capacity: Alert and orientated x3 Functional capacity: independent ambulation Family History Father No problems noted. Mother No problems noted. 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 Current occupational exposures/hazards: No Ebola Risk: Travel/Contact With Anyone From Affected Area/s: No Has Patient Experienced Ebola Symptoms: No Meds Allergies Allergy/AdvReac Type Severity Reaction Status Date / Time pneumococcal vaccine Allergy Intermediate RASH Verified 03/20/25 16:02 [PNEUMOCOCCAL VACCINE] amoxicillin [From Augmentin] Allergy Unknown Swelling Verified 03/20/25 16:02 clavulanic acid Allergy Unknown Swelling Verified 03/20/25 16:02 [From Augmentin] theophylline AdvReac Intermediate Loss of Verified 03/20/25 16:02 Appetite Active Medications: Current Medications Acetaminophen (Acetaminophen 325 Mg Tablet) 650 mg PO Q6H PRN PRN Reason: Pain, Mild 1-3,fever,headache Albuterol/Ipratropium (Albuterol/Iprat 2.5/0.5mg 3 Ml Ampul.Neb) 3 ml INHALE Q4H PRN PRN Reason: Shortness of Breath/Wheezing Calcium Carbonate (Calcium Carbonate 750 Mg Tab.Chew) 750 mg PO Q4H PRN PRN Reason: Heartburn Magnesium Hydroxide (Milk Of Magnesia 30 Ml Oral.Susp) 30 ml PO DAILY PRN PRN Reason: Constipation Melatonin (Melatonin 3 Mg Tablet) 6 mg PO BEDTIME PRN PRN Reason: Insomnia Ondansetron HCl (Ondansetron Hcl 4 Mg/2 Ml Vial) 4 mg IVPUSH Q8H PRN PRN Reason: Nausea and Vomiting Polyethylene Glycol (Polyethylene Glycol 3350 17 Gm Powd.Pack) 17 gm PO DAILY PRN PRN Reason: Constipation Senna (Sennosides 8.6 Mg Tablet) 17.2 mg PO BEDTIME DA Sodium Chloride (0.9 % Sodium Chloride Flush 3 Ml Syringe) 3 ml IVFLUSH QSHIFT DA Home Medications ?Medication ?Instructions ?Recorded ?Confirmed ?Last Taken ?Type albuterol sulfate 90 mcg/actuation 2 puff PO Q2H PRN Shortness Of 09/07/20 03/04/25 11/29/21 History aerosol inhaler Breath Or Wheezing cyanocobalamin (vitamin B-12) 1,000 mcg PO DAILY 09/13/23 03/04/25 Unknown History 1,000 mcg capsule multivitamin (One Daily 1 tab PO DAILY 09/13/23 03/04/25 Unknown History Multivitamin tablet) fluorouracil 5 % topical cream 1 appl topical DAILY 09/16/23 03/04/25 Unknown History loperamide [Imodium A-D] PO PRN 01/30/24 03/04/25 Unknown History zolpidem 5 mg tablet 5 mg PO BEDTIME PRN 02/04/25 03/04/25 Unknown History warfarin 3 mg tablet See Rx Instructions PO DIRECTED 03/04/25 03/04/25 Unknown History Physical Exam 2 Vital Signs and Narrative: Vital Signs: Last Vital Signs Temp 98.7 F 03/20/25 15:59 Pulse 102 H 03/20/25 19:03 Resp 24 H 03/20/25 19:03 BP 141/71 H 03/20/25 19:03 Pulse Ox 93 03/20/25 19:03 O2 Del Method Oxymask 03/20/25 19:03 O2 Flow Rate 2.5 03/20/25 19:03 Oxygen Flow Rate 3 03/20/25 15:59 BMI result Body Mass Index 27.1 Alert and orientated X3, very hard of hearing, able to follow commands and answer questions asked regarding HPI Neuro: Herpetic outbreak along cranial nerves 5, regions V2 and V3 involving left side of tongue, migrating to the suborbital area into the left ear. Left ear is swollen to the point that patient can not insert his hearing aid. Patient has crusting along the left commissure and crusting noted edge of left eye and left ear. neuro exam otherwise normal. CN 5 V1 does not appear to be impacted. EYES: PERRLA, EOM intact, sclerae bilaterally are clear, nonicteric. Left eye conjunctiva with inflammation and again crusting edge of left ear laterally ENT: Patient very hard of hearing, pain noted with swallowing, uvula midline, nares patent no epistaxis, left facial swelling with crusting upon lateral left mouth area, redness and puffiness below left eye and herpetic rash on left side of tongue only Cardiac: S1 S2 irregular rate 102, no murmur, no JVD, no edema in Lower ext Pulmonary: lungs diminished bilaterally Abdominal: BS active in all 4 quadrants, no guarding, tenderness, rebounding MSK: strength 4/5 upper and lower extremities : no CVA tenderness no bladder distension Extremities: no edema in lower extremities, PT and DP pulses palpable +2 Psych: mood stable, judgement and insight fair Skin: As above for shingles outbreak along cranial nerve 5, sections V2 and V3. No rash found along any other dermatomes Results Labs 03/20/25 16:16 03/20/25 16:16 Labs: Laboratory Results - last 24 hr 03/20/25 03/20/25 16:16 16:53 MCV 100.8 H MCH 32.7 MCHC 32.5 RDW 12.9 Plt Count 159 L MPV 10.2 Immature Gran % (Auto) 0.4 Neut % (Auto) 60.6 Lymph % (Auto) 25.2 Beauregard % (Auto) 12.6 H Eos % (Auto) 0.8 Baso % (Auto) 0.4 Lymph # (Auto) 1.8 Beauregard # (Auto) 0.9 Eos # (Auto) 0.1 Baso # (Auto) 0.0 Abs Immat Gran (auto) 0.03 Absolute Neuts (auto) 4.3 Absolute Nucleated RBC 0.000 Nucleated RBC % (auto) 0.0 PT 30.9 H INR 2.7 H Anion Gap 15 Estim Creat Clear Calc 38.1 Estimated GFR 50 Random Glucose 109 Lactic Acid 0.9 Calcium 9.3 Magnesium 1.9 Total Bilirubin 0.7 AST 30 ALT 17 Alkaline Phosphatase 96 Troponin I High Sens 29.0 D B-Natriuretic Peptide 214 H Total Protein 7.3 Albumin 4.2 Influenza Type A (PCR) NEGATIVE Influenza Type B (PCR) NEGATIVE RSV RNA Qual (PCR) NEGATIVE SARS-CoV-2 RNA (RT-PCR) NEGATIVE ECG Attestation: I personally reviewed and interpreted this ECG as follows: (AFib rate 102) Prior ECG tracings: available for review Imaging Radiologist's Impressions: Chest x-ray No acute finding Soft tissue CT of the face and head CT pending Assessment and Plan (1) Facial cellulitis: Status: Acute Plan Facial cellulitis/ likely shingles outbreak alone cranial nerve 5 sections V2 and V3 with impetigo/bacterial infection -Patient is started on vancomycin and Valtrex has been added (reviewed with Dr. Thornton via tiger text and Dr. Donovan attending.) -Lactic acid normal, no leukocytosis. -Chest x-ray negative for acute findings -Adding gabapentin and lidocaine viscous as patient is having oral/facial pain and difficulty swallowing -Vision currently not impacted -CT of the head pending as patient reports posterior headache -Soft tissue of the face and neck pending -Patient does not have venetie ira dentition, can rule out dental source of infection once CT completed -ID consultation -Patient does not have thrush, we will not continue antifungal Permanent AFib on Coumadin -INR 2.7 -Await med rec completion, 3 mg of Coumadin ordered daily firm with med rec -INR daily -Telemetry -Magnesium stable at 1.9 -Checking TSH HFrEF -BNP is elevated at 214 -last echo 2022, we will repeat echo for review as patient is having increased oxygen needs -EKG negative for ischemic changes -daily weights, low-sodium diet, intake and output every 8 -Continue Coreg, Lasix med rec completed COPD -duo nebs p.r.n., supportive care -oxygen continuous, baseline 3 L for home use -VBG 7.54, 56, 56, 48 Metabolic alkalosis -Will order Diamox x1 -Repeat BMP in the morning Hypertension -Patient on Coreg, await med rec completion and we will order -Low-salt diet Hyperlipidemia -Continue statin once med rec completed BPH/history of prostate cancer -continue tamsulosin once med rec completed -UA pending DVT prophylaxis: Coumadin PPI prophylaxis: Omeprazole Med rec pending Full code status This proposal writer did try to update family but there was no answer at available phone number. Quality Stroke Does the patient have a stroke diagnosis?: No Reason for No Anti-thrombotic by Day Two: N/A - Med Ordered VTE Prior VTE?: No VTE Risk Level:: Medical - moderate - high VTE Device Contraindication: N/A - Device Ordered VTE Drug Contraindication: N/A - Med Ordered
[2025-03-20] MEDS: Acetaminophen 325 MG TABLET 650 MG PO (19:38)
[2025-03-20] MEDS: valACYclovir HCL 1,000 MG TABLET 1000 MG PO (19:44)
[2025-03-20 19:55] LABS: VBG Base Excess 22.3 mmol/L; VBG HCO3 48 mmol/L (22-26); VBG pCO2 56 mmHg; VBG pH 7.54 (7.32-7.43); VBG pO2 56 mmHg
[2025-03-20 19:57] LABS: Venous Blood Gas Refer to POC result
[2025-03-20 20:09] LABS: Troponin-I High Sensitivity 24.4 ng/L (<3.5-35.0)
[2025-03-20] MEDS: iohexoL 350 MG/ML 100 ML INFUS..BTL 65 ML IV (20:17)
[2025-03-20] MEDS: Sennosides 8.6 MG TABLET 17.2 MG PO (20:36)
[2025-03-20] MEDS: Gabapentin 100 MG CAPSULE 200 MG PO (20:38)
[2025-03-20 20:42] VITALS: BP 149/71; PULSE 100; RESP 14; O2SAT 100
[2025-03-20] MEDS: acetaZOLAMIDE 250 MG TABLET PO (21:10)
--- NOTE | 2025-03-20 21:57 | PC.NURSE ---
Pt transitioned to hospital bed, bed alarm on, hospital socks on, call echevarria in place.
[2025-03-20 22:00] VITALS: BP 132/66; PULSE 87; RESP 17; O2SAT 96
[2025-03-20 22:03] LABS: Appearance Urine Clear; Color Urine Yellow; Glucose Urine UA Negative (Negative); Leukocyte Esterase Urine Negative (Negative); Nitrite Urine Negative (Negative); PH 6.5 (5.0-9.0); Specific Gravity - Urine >= 1.030 (1.005-1.025); UMIC TRIGGER UA YES; Urine Blood Negative (Negative); Urine Ketones 15 mg/dL (Negative); Urine Protein 100 (2+) mg/dL (Neg-Trace)
[2025-03-20 22:16] LABS: Bacteria Urine None Seen (None Seen); RBC Urine 0-2 /HPF (0-2); WBC Urine 0-5 /HPF (0-5)
[2025-03-21] VITALS (15 sets, daily range): BP systolic 116–165; BP diastolic 64–92; PULSE 74–144; RESP 14–26; TEMP 36.6–37.9; O2SAT 90–97
[2025-03-21] MEDS: Lidocaine HCl Viscous 2 % 15 ML SOLUTION MUCOUS MEM (00:04)
[2025-03-21] MEDS: Melatonin 3 MG TABLET 6 MG PO (00:04)
[2025-03-21] MEDS: 0.9 % Sodium Chloride Flush 3 ML SYRINGE IVFLUSH ×4 (00:19→22:47)
--- NOTE | 2025-03-21 01:03 | PC.NURSE ---
report given to Nadira Wang RN call echevarria within reach
[2025-03-21 02:44] LABS: MANUAL DIFF FLAG NO
[2025-03-21 02:48] LABS: Basophils Percent Auto 0.6 % (0-2); Eosinophils Absolute Auto 0.1 X10*3/uL (0.0-0.4); Eosinophils Percent Auto 1.8 % (0-4); Hematocrit 39.4 % (42.0-52.0); Hemoglobin 12.6 g/dl (14.0-18.0); Imm Gran Abs Auto 0.02 X10*3/uL (0.00-0.03); Imm Gran Pct Auto 0.3 % (0.0-0.4); Lymphocytes Absolute Auto 1.7 X10*3/uL (1.2-4.9); Lymphocytes Percent Auto 25.3 % (20-40); Mean Corpuscular Hemoglobin 32.8 pg (27.0-33.0); Mean Corpuscular Volume 102.6 fL (80.0-98.0); Mean Platelet Volume 10.7 fL (9.4-12.4); Monocytes Absolute Auto 0.9 X10*3/uL (0.1-1.2); Monocytes Percent Auto 13.3 % (2-11); Neutrophils Absolute Auto 3.8 x10*3/uL (2.0-8.3); Neutrophils Percent Auto 58.7 % (45-73); Platelet Count 152 X10*3/uL (160-400); Red Blood Count 3.84 X10*6/uL (4.60-5.80); Red Cell Distribution Width 12.9 % (11.0-16.0); White Blood Count 6.6 X10*3/uL (4.8-10.8)
[2025-03-21 03:09] LABS: Alanine Aminotransferase 13 U/L (0-40); Albumin Level 3.8 g/dL (3.5-5.0); Alkaline Phosphatase 87 U/L (39-117); Anion Gap 13 (12-20); Aspartate Amino Transferase 30 U/L (5-37); Bilirubin Total 0.6 mg/dL (0.0-1.0); Blood Urea Nitrogen 20 mg/dL (9-16); Calcium 8.9 mg/dL (8.4-10.2); Carbon Dioxide 40 mmol/L (22-29); Chloride 92 mmol/L (96-108); Creatinine Clr Calc Pharmacy 43.9; Estimated Glomerular Filt Rate 58; Glucose Random 92 mg/dL (60-115); Potassium 3.4 mmol/L (3.3-5.1); Sodium 142 mmol/L (135-145); Total Protein 6.8 g/dL (6.5-8.0)
[2025-03-21 03:24] LABS: TSH reflex Free T4 1.34 uIU/mL (0.32-4.0)
[2025-03-21] MEDS: valACYclovir HCL 1,000 MG TABLET 1000 MG PO ×3 (04:18→17:42)
[2025-03-21] MEDS: Acetaminophen 325 MG TABLET 650 MG PO (04:18)
--- NOTE | 2025-03-21 05:46 | PC.NURSE ---
Pt HR noted to be 120s-140s on cardiac cath lab manager. Afib on cardiac cath lab manager previously with HR in the 70s-80s. Pt denies cp/chest pressure/sob, vitals updated in worklist- blood pressure stable. BP cycling q15 to monitor. MD Donovan made aware. Per MD- going to review case.
[2025-03-21 06:26] LABS: INTERNATIONAL NORM RATIO 3.6 (0.9-1.1); Prothrombin Time 41.4 SEC (10.9-12.4)
[2025-03-21] MEDS: cefTRIAXone sodium 1 GM VIAL IVPUSH (06:33)
--- NOTE | 2025-03-21 06:59 | PC.NURSE ---
Pt HR decreased to mid 90s-100s- afib on cardiac cath rn, asymptomatic. Per Zion- Hold off on IVP Lopressor. Report given to GUSTABO Enriquez.
[2025-03-21] MEDS: Gabapentin 100 MG CAPSULE 200 MG PO ×3 (07:45→20:18)
[2025-03-21] MEDS: carvediloL 6.25 MG TABLET PO ×2 (07:45→20:19)
--- NOTE | 2025-03-21 08:13 | PC.NURSE ---
patient a&ox3, lungs diminished throughout, rr equal/non labored, bell captain intact- afib on monitor, pt medicated per order, call echevarria within reach ,plan of care ongoing
--- NOTE | 2025-03-21 08:18 | PC.NURSE ---
patient currently complaining of a headache, pt was given tylenol at 418 this morning and has no other prns for headache. notified Dr. Saxena. plan of care ongoing
--- NOTE | 2025-03-21 08:51 | PHA.MEDREC ---
Addendum entered by Con Valenzuela RPh 03/21/25 09:16: [facility] REC REVIEWED BY [facility] Original Note: Pharmacy Consult ? Medication Reconciliation Pharmacy has completed the medication reconciliation. Spoke with patients over the phone to confirm medications. She confirmed Warfarin 6 mg (2 x 3 mg) daily except on Fridays, which he takes 4.5 mg (1.5 x 3 mg). He last took Warfarin 6 mg yesterday morning. She reports his doctor discontinued Atorvastatin 40 mg 3 days ago. She confirmed furosemide is 1.5 tabs daily (60 mg total) and he uses his nebulizer TID scheduled. She reports he took his morning medications yesterday.
--- NOTE | 2025-03-21 09:08 | PC.NURSE ---
called pharmacy for missing medications
[2025-03-21] MEDS: oxyCODONE HCl Immed Release 5 MG TABLET 2.5 MG PO (10:05)
[2025-03-21] MEDS: acetaZOLAMIDE 250 MG TABLET PO (10:05)
--- NOTE | 2025-03-21 10:11 | PC.NURSE ---
patient a&o, director of cardiac rehabilitation afib, vss, pt medicated per order and for 8/10 headache as well as 4/10 facial pain, call echevarria within reach, plan of care ongoing
[2025-03-21 11:21] LABS: Adenovirus PCR Not Detected (Not Detect.); Bordetella parapertussis PCR Not Detected (Not Detect.); Bordetella pertussis PCR Not Detected (Not Detect.); Chlamydia pneumoniae PCR Not Detected (Not Detect.); Coronavirus 229E PCR Not Detected (Not Detect.); Coronavirus HKU1 PCR Not Detected (Not Detect.); Coronavirus NL63 PCR Not Detected (Not Detect.); Coronavirus OC43 PCR Not Detected (Not Detect.); Human metapneumovirus PCR Not Detected (Not Detect.); Influenza A PCR Not Detected (Not Detect.); Influenza B PCR Not Detected (Not Detect.); Mycoplasma pneumoniae PCR Not Detected (Not Detect.); Parainfluenza 1 PCR Not Detected (Not Detect.); Parainfluenza 2 PCR Not Detected (Not Detect.); Parainfluenza 3 PCR Not Detected (Not Detect.); Parainfluenza 4 PCR Not Detected (Not Detect.); RSV PCR Not Detected (Not Detect.); Rhino/Enterovirus PCR Not Detected (Not Detect.)
[2025-03-21 11:38] LABS: Influenza A H1 PCR Not Detected (Not Detect.); Influenza A H1-2009 PCR Not Detected (Not Detect.); Influenza A H3 PCR Not Detected (Not Detect.); SARS-CoV-2 PCR Not Detected (Not Detect.)
--- NOTE | 2025-03-21 15:03 | PC.NURSE ---
pts 3pm medications will be held until patient wakes up
[2025-03-21] MEDS: vancomycin HCL 1,000 MG in 0.9 % Sodium Chloride 250 ML 270 MG IV (17:42)
--- NOTE | 2025-03-21 17:51 | PC.NURSE ---
patient awake, alert to person/place, quality assurance monitor final intact- afib on monitor, vss, pt medicated per order, denies pain at this time, family visiting at bedside, call echevarria within reach, plan of care ongoing
--- NOTE | 2025-03-21 17:53 | HO.PM.IMPN ---
Subjective Subjective Date of Service: 03/21/25 Interval History: facial cellulitis Review of Systems loud on hearing at baseline says could not hear much left ear side left sided facial erythema same. vision is unchanged. Review of Systems: Yes all other systems are reviewed and are negative Physical Exam Vital Signs: Vital Signs: Last Vital Signs Temp 98.0 F 03/21/25 17:50 Pulse 99 03/21/25 17:50 Resp 22 H 03/21/25 17:50 BP 165/82 H 03/21/25 17:50 Pulse Ox 94 03/21/25 17:50 O2 Del Method Nasal Cannula 03/21/25 17:50 O2 Flow Rate 2.5 03/21/25 17:50 Oxygen Flow Rate 3 03/20/25 15:59 BMI result Body Mass Index 27.1 Appearance: Alert.? Oriented X3.? skin-changes similar to h&P note. cvs: rrr, [id number] . res: clear to auscultation ,no rhonchii or wheezing abd: no rebound or guarding ,nt, bs present. ext pulses present , no cyanosis. neuro: axo3 , nonfocal. Objective Data Active Medications Acetaminophen (Acetaminophen 325 Mg Tablet) 650 mg PO Q6H PRN PRN Reason: Pain, Mild 1-3,fever,headache Last Admin: 03/21/25 04:18 Dose: 650 mg Documented By: MAT Albuterol/Ipratropium (Albuterol/Iprat 2.5/0.5mg 3 Ml Ampul.Neb) 3 ml INHALE Q4H PRN PRN Reason: Shortness of Breath/Wheezing Calcium Carbonate (Calcium Carbonate 750 Mg Tab.Chew) 750 mg PO Q4H PRN PRN Reason: Heartburn Carvedilol (Carvedilol 6.25 Mg Tablet) 6.25 mg PO BID DA; Protocol Ceftriaxone Sodium (Ceftriaxone Sodium 1 Gm Vial) 1 gm IVPUSH Q24H DA Last Admin: 03/21/25 06:33 Dose: 1 gm Documented By: MAT Cyanocobalamin (Cyanocobalamin (Vitamin B-12) 1,000 Mcg Tablet) 1,000 mcg PO DAILY DA Furosemide (Furosemide 20 Mg Tablet) 60 mg PO DAILY DA; Protocol Gabapentin (Gabapentin 100 Mg Capsule) 200 mg PO TID DA Stop: 03/23/25 20:59 Last Admin: 03/21/25 15:51 Dose: 200 mg Documented By: ALAN Vancomycin HCl 1,000 mg/ (Sodium Chloride) 270 mls @ 270 mls/hr IV Q24H [facility] Last Admin: 03/21/25 17:42 Dose: 270 mls/hr Documented By: JASON Lidocaine HCl (Lidocaine Hcl Viscous 2 % 15 Ml Solution) 15 ml MUCOUS MEM Q3H PRN PRN Reason: Mouth Sore Pain Last Admin: 03/21/25 00:04 Dose: 15 ml Documented By: MEGHAN Magnesium Hydroxide (Milk Of Magnesia 30 Ml Oral.Susp) 30 ml PO DAILY PRN PRN Reason: Constipation Melatonin (Melatonin 3 Mg Tablet) 6 mg PO BEDTIME PRN PRN Reason: Insomnia Last Admin: 03/21/25 00:04 Dose: 6 mg Documented By: MEGHAN Multivitamins/Vitamin C (Multivitamin Tablet) 1 tab PO DAILY DA Nystatin (Nystatin Cream 15 Gm Tube) 1 appl TOPICAL BID [facility]; Protocol Ondansetron HCl (Ondansetron Hcl 4 Mg/2 Ml Vial) 4 mg IVPUSH Q8H PRN PRN Reason: Nausea and Vomiting Oxycodone HCl (Oxycodone Hcl Immed Release 5 Mg Tablet) 2.5 mg PO Q6H PRN PRN Reason: Pain, Severe (Pain Scale 7-10) Last Admin: 03/21/25 10:05 Dose: 2.5 mg Documented By: JASON Pharmacy Consult (Consult Rx Vancomycin Dosing) 1 each MISCELLANE DAILY PRN PRN Reason: Consult order Polyethylene Glycol (Polyethylene Glycol 3350 17 Gm Powd.Pack) 17 gm PO DAILY PRN PRN Reason: Constipation Senna (Sennosides 8.6 Mg Tablet) 17.2 mg PO BEDTIME [facility] Last Admin: 03/20/25 20:36 Dose: 17.2 mg Documented By: ALAN Sodium Chloride (0.9 % Sodium Chloride Flush 3 Ml Syringe) 3 ml IVFLUSH QSHIFT [facility] Last Admin: 03/21/25 15:52 Dose: 3 ml Documented By: ALAN Tamsulosin HCl (Tamsulosin Hcl 0.4 Mg Capsule) 0.4 mg PO BID [facility] Valacyclovir HCl (Valacyclovir Hcl 1,000 Mg Tablet) 1,000 mg PO Q8H [facility] Stop: 03/28/25 02:59 Last Admin: 03/21/25 17:42 Dose: 1,000 mg Documented By: JASON Warfarin Sodium (Warfarin Sodium 3 Mg Tablet) 3 mg PO DAILY@1800 [facility] Zolpidem Tartrate (Zolpidem Tartrate 5 Mg Tablet) 5 mg PO BEDTIME [facility] Labs 03/21/25 02:26 03/21/25 02:26 Labs: Laboratory Results - last 24 hr 03/20/25 03/20/25 03/20/25 19:39 19:48 21:54 MCV MCH MCHC RDW Plt Count MPV Immature Gran % (Auto) Neut % (Auto) Lymph % (Auto) Metcalfe % (Auto) Eos % (Auto) Baso % (Auto) Lymph # (Auto) [place]calfe # (Auto) Eos # (Auto) Baso # (Auto) Abs Immat Gran (auto) Absolute Neuts (auto) Absolute Nucleated RBC Nucleated RBC % (auto) PT INR VBG pH 7.54 H VBG pCO2 56 VBG pO2 56 VBG HCO3 48 H VBG O2 Saturation 88.0 VBG Base Excess 22.3 Anion Gap Estim Creat Clear Calc Estimated GFR Random Glucose Calcium Total Bilirubin AST ALT Alkaline Phosphatase Troponin I High Sens 24.4 Total Protein Albumin TSH Urine Color Yellow Urine Appearance Clear Urine pH 6.5 Ur Specific [place] >= 1.030 H Urine Protein 100 (2+) H Urine Glucose (UA) Negative Urine Ketones 15 Urine Blood Negative Urine Nitrite Negative Ur Leukocyte Esterase Negative Urine RBC 0-2 Urine WBC 0-5 Ur Squamous Epith Cells 3-5 Urine Bacteria None Seen Hyaline Casts 11-20 Respiratory Panel Wu Adenovirus (Rapid PCR) B.pert (TEM-PCR) B.parapertussis DNA PCR C. pneumoniae DNA (PCR) Coronavirus OC43 (PCR) Coronavirus HKU1 (PCR) Coronavirus 229E (PCR) Coronavirus NL63 (PCR) Human Metapneumovir PCR Influenza A (RT-PCR) Influenza A (H1) PCR Influ A (H1/09) PCR Influenza A (H3) PCR Influenza B (RT-PCR) M. pneumoniae (PCR) Parainfluenza 1 (PCR) Parainfluenza 2 (PCR) Parainfluenza 3 (PCR) Parainfluenza 4 (PCR) RSV (PCR) Entero/Rhino (PCR) SARS-CoV-2 RNA (RT-PCR) 03/21/25 03/21/25 03/21/25 02:26 06:14 10:01 MCV 102.6 H MCH 32.8 MCHC 32.0 RDW 12.9 Plt Count 152 L MPV 10.7 Immature Gran % (Auto) 0.3 Neut % (Auto) 58.7 Lymph % (Auto) 25.3 Metcalfe % (Auto) 13.3 H Eos % (Auto) 1.8 Baso % (Auto) 0.6 Lymph # (Auto) 1.7 [place]calfe # (Auto) 0.9 Eos # (Auto) 0.1 Baso # (Auto) 0.0 Abs Immat Gran (auto) 0.02 Absolute Neuts (auto) 3.8 Absolute Nucleated RBC 0.000 Nucleated RBC % (auto) 0.0 PT 41.4 H D INR 3.6 H VBG pH VBG pCO2 VBG pO2 VBG HCO3 VBG O2 Saturation VBG Base Excess Anion Gap 13 Estim Creat Clear Calc 43.9 Estimated GFR 58 Random Glucose 92 Calcium 8.9 Total Bilirubin 0.6 AST 30 ALT 13 Alkaline Phosphatase 87 Troponin I High Sens Total Protein 6.8 Albumin 3.8 TSH 1.34 Urine Color Urine Appearance Urine pH Ur Specific [place] Urine Protein Urine Glucose (UA) Urine Ketones Urine Blood Urine Nitrite Ur Leukocyte Esterase Urine RBC Urine WBC Ur Squamous Epith Cells Urine Bacteria Hyaline Casts Respiratory Panel Wu See Note Adenovirus (Rapid PCR) Not Detected B.pert (TEM-PCR) Not Detected B.parapertussis DNA PCR Not Detected C. pneumoniae DNA (PCR) Not Detected Coronavirus OC43 (PCR) Not Detected Coronavirus HKU1 (PCR) Not Detected Coronavirus 229E (PCR) Not Detected Coronavirus NL63 (PCR) Not Detected Human Metapneumovir PCR Not Detected Influenza A (RT-PCR) Not Detected Influenza A (H1) PCR Not Detected Influ A (H1/09) PCR Not Detected Influenza A (H3) PCR Not Detected Influenza B (RT-PCR) Not Detected M. pneumoniae (PCR) Not Detected Parainfluenza 1 (PCR) Not Detected Parainfluenza 2 (PCR) Not Detected Parainfluenza 3 (PCR) Not Detected Parainfluenza 4 (PCR) Not Detected RSV (PCR) Not Detected Entero/Rhino (PCR) Not Detected SARS-CoV-2 RNA (RT-PCR) Not Detected Microbiology Microbiology Results: Microbiology 03/20/25 16:53 Gram Stain - Final Face Routine Culture - Final Culture in progress. Assessment and Plan (1) Facial cellulitis: Status: Acute Assessment and Plan: 84-year-old male with past medical history HFrEF, hypertension, permanent AFib on Coumadin, BPH, prostate cancer, COPD on home O2 3 L continuous, hyperlipidemia-came with facial swelling and some sob . Facial cellulitis/ likely shingles outbreak alone cranial nerve 5 sections V2 and V3 with impetigo/bacterial infection Patient is started on vancomycin and Valtrex has been added (reviewed with Dr. Thornton via tiger text and Dr. Donovan attending.) Lactic acid normal, no leukocytosis,Chest x-ray negative for acute findings plan: gabapentin and lidocaine .Vision unchanged left side ear does not hear well,he says he uses hearing aid at baseline CT of the head : negative,ct Soft tissue of the face and neck-Left preseptal cellulitis. No orbital cellulitis. Facial cellulitis without abscess.Associated cervical lymphadenopathy. ID consultation Permanent AFib on Coumadin-INR supratherapeutic Monitor closely, hold warfarin for today HFrEF: stable BNP is elevated at 214 last echo 2022, we will repeat echo for review as patient is having increased oxygen needs EKG negative for ischemic changes daily weights, low-sodium diet, intake and output. Continue Coreg,diuretics COPD-stable sob seems improving cxr negative possible compensatory Metabolic alkalosis-will add acetazolamide . germano genos p.r.n., supportive care oxygen continuous, baseline 3 L for home use Hypertension: flactuating on Coreg Hyperlipidemia -Continue statin BPH/history of prostate cancer-continue tamsulosin DVT prophylaxis: Coumadin. PPI prophylaxis: Omeprazole ongoing need :Facial cellulitis/ likely shingles outbreak alone cranial nerve 5 sections V2 and V3 with impetigo/bacterial infection-need iv antibiotics ,Id eval ,clinical monitering for facial edema. His daughter Miss corona updated in detail. Quality Stroke Does the patient have a stroke diagnosis?: No Reason for No Anti-thrombotic by Day Two: N/A - Med Ordered VTE Prior VTE?: No VTE Risk Level:: Medical - moderate - high VTE Device Contraindication: N/A - Device Ordered VTE Drug Contraindication: N/A - Med Ordered
[2025-03-21] MEDS: Furosemide 20 MG/2 ML VIAL IVPUSH (19:22)
--- NOTE | 2025-03-21 19:31 | PC.NURSE ---
Saxena to bedside- advised pt continues to range 87-89% SpO2 2l vi aNC- MD ordered updraft (respiratory notified), as well as 20mg lasix IVP. pt placed on oxymask at 2.5l with improvement to 92%.
--- NOTE | 2025-03-21 19:37 | PC.NURSE ---
Pt noted to be afib 110's - 140's, minor WOB noted, patient transitioned to oxymask 2.5L, dr. Donovan covering provider made aware, awaiting orders.
[2025-03-21] MEDS: Metoprolol Tartrate 5 MG/5 ML VIAL IVPUSH (19:59)
[2025-03-21] MEDS: Sennosides 8.6 MG TABLET 17.2 MG PO (20:19)
[2025-03-21] MEDS: Tamsulosin HCL 0.4 MG CAPSULE PO (20:19)
[2025-03-21] MEDS: Zolpidem Tartrate 5 MG TABLET PO (20:19)
--- NOTE | 2025-03-21 20:26 | PC.NURSE ---
pt medicated per MAR call bel within reach
[2025-03-21] MEDS: Albuterol/Iprat 2.5/0.5MG 3 ML AMPUL.NEB INHALE (21:24)
--- NOTE | 2025-03-21 22:15 | PC.NURSE ---
Pt sleeping soundly on hosptial bed, HR improved after meds given, see MAR. bed alarm on, call echevarria within reach.
[2025-03-22] VITALS (12 sets, daily range): BP systolic 103–118; BP diastolic 52–83; PULSE 59–109; RESP 16–22; TEMP 36–37.7; O2SAT 93–100
[2025-03-22] MEDS: valACYclovir HCL 1,000 MG TABLET 1000 MG PO ×3 (03:15→18:27)
[2025-03-22] MEDS: cefTRIAXone sodium 1 GM VIAL IVPUSH (06:04)
--- NOTE | 2025-03-22 07:00 | CA_ITS ---
Transthoracic Echocardiogram Patient (Last, First, Middle): Kalyan Nguyen R Gender: Male Date of : 1940 Age: 84 Procedure Date: 03/22/2025 Procedure Type: Transthoracic Echocardiogram Location: S3W Height: 170.18 cm Weight: 78.47 kg BSA: 1.90 m2 Heart Rate: bpm BP: 103 / 52 mmHg Store Receiver: RAE Referring MD: Nilsa Card COAL HIKER-STALIN Symptoms: elevated BNP, SOB Study Quality: Adequate ECG Rhythm: Atrial Fibrillation Conclusions: - Normal left ventricular cavity size. There is mildly increased left ventricular wall thickness. The left ventricular systolic function is normal. The visually estimated ejection fraction is between 60-65%. - Normal right ventricular cavity size and systolic function. - The left atrium is severely dilated. The right atrium is severely dilated. Findings Left Ventricle Normal left ventricular cavity size. There is mildly increased left ventricular wall thickness. The left ventricular systolic function is normal. The visually estimated ejection fraction is between 60-65%. There is no evidence of regional wall motion abnormalities. Diastolic function is indeterminate on the basis of available data. Right Ventricle Normal right ventricular cavity size and systolic function. Atria The left atrium is severely dilated. The right atrium is severely dilated. Aortic Valve The aortic valve was not well visualized. There is mild calcification of the aortic valve. There is no aortic valve stenosis. There is no aortic valve regurgitation. Mitral Valve The mitral valve appears normal. There is trace mitral valve regurgitation. There is no mitral valve stenosis. Pulmonic Valve The pulmonic valve is likely normal. Tricuspid Valve Normal tricuspid valve structure. There is trace tricuspid valve regurgitation. Low right atrial pressure. There is no evidence of pulmonary hypertension. Great Vessels All visible segments of the aorta are normal in size. Venous The inferior vena cava is collapsed, consistent with reduced intravascular volume. Pericardium/Pleural Prominent epicardial adipose tissue noted. There is no evidence of pericardial effusion. Prior Study Comparison Changes noted compared to prior study dated: 09/17/2023. Severe biatrial enlargement. Measurements 2D Linear Measurements IVSd: 1.10 0.6-0.9/0.6-1.0 cm LVIDd: 4.50 3.9-5.3/4.2-5.9 cm LVIDd Index: 2.37 2.4-3.2/2.2-3.1 cm/m2 LVIDs: 3.88 2.0-3.6 cm LVPWd: 1.14 0.7-1.1 cm Ao Root: 3.40 2.1-3.5 cm LA Diam: 5.00 2.7-3.8/3.0-4.0 cm LAIDs Index: 2.63 1.5-2.3 cm/m2 LV Mass: 223.66 67-162/88-224 g LV Mass Index: 117.72 43-95/49-115 g/m2 LVOT Diam: 2.00 3.0+(-)1.3 cm 2D Systolic Function EF 4C: 68.20 >55% EF 2C: 46.30 >55% EF BiP: 59.90 >55% Mitral Valve MV Pk E: 0.90 MV Decel Time: 256.00 E'Lateral: 10.00 E'Medial: 8.70 E/E' Med: 10.40 E/E' Lat: 9.00 PHT: 75.00 MVA PHT: 2.93 Decel Chaves: 3.53 Aortic Valve AoV Pk Cristino: 1.64 AoV Mn Cristino: 1.06 AoV VTI: 0.31 AoV Pk Grad: 11.00 Aov Mn Grad: 5.00 HENNA Cont.VTI: 1.63 LVOT LVOT Pk Cristino: 0.84 LVOT Mn Cristino: 0.50 LVOT VTI: 0.16 LVOT Pk Grad: 3.00 LVOT Mn Grad: 1.00 LVOT Diam: 2.00 LVOT Area: 3.14 Diastolic Function MV Pk E: 0.90 E'Medial: 8.70 E/E' Med: 10.40 E' Laterial: 10.00 E/E' Lat: 9.00 Right Ventricle TAPSE (mm): 33.00 TVS' Cristino: 20.00 Tricuspid Valve TR Pk Cristino: 2.62 TR Pk Grad: 27.00 RA Press: 3.00 RVSP: 30.00 Great Vessels Aorta Ao Root-2D: 3.40 2.0-3.7 cm Ao Asc: 3.40 2.1-3.4 cm Pulmonary Valve PV Pk Cristino: 1.08 Peak PV Grad: 5.00 Updated in Other Vendor System with Status of Final Minor Gautam MD electronically signed on 03/22/2025 3:28:04 PM with status of Final
[2025-03-22] MEDS: 0.9 % Sodium Chloride Flush 3 ML SYRINGE IVFLUSH ×3 (07:41→20:40)
[2025-03-22] MEDS: Albuterol/Iprat 2.5/0.5MG 3 ML AMPUL.NEB INHALE ×4 (07:51→18:53)
[2025-03-22 09:00] LABS: Anion Gap 15 (12-20); Blood Urea Nitrogen 21 mg/dL (9-16); Calcium 8.7 mg/dL (8.4-10.2); Carbon Dioxide 33 mmol/L (22-29); Chloride 94 mmol/L (96-108); Creatinine Clr Calc Pharmacy 47.5; Estimated Glomerular Filt Rate > 60; Glucose Random 83 mg/dL (60-115); Potassium 4.1 mmol/L (3.3-5.1); Sodium 138 mmol/L (135-145)
--- NOTE | 2025-03-22 09:20 | MHC.CM.PN ---
IMM DELIVERED PT LIVES SPOUSE AND SON/SON'S FAMILY. PT USES A CANE FOR MOBILITY AND HAS HOME 02 VIA [employer]. + HCP, COPY AT HOME, PT GIVES THIS CM PERMISSION TO CALL TO REQUEST COPY BE BROUGHT IN. PCP DR. MEDELLIN. DP: HOME, NO SERVICES IS THE GOAL. PT HAS OWN RIDE HOME. CM WILL CONTINUE TO FOLLOW FOR ANY CHANGE TO DC PLAN/NEEDS.
[2025-03-22] MEDS: Furosemide 20 MG TABLET 60 MG PO (09:25)
[2025-03-22] MEDS: Cyanocobalamin (Vitamin B-12) 1,000 MCG TABLET 1000 MCG PO (09:26)
[2025-03-22] MEDS: carvediloL 6.25 MG TABLET PO ×2 (09:26→20:39)
[2025-03-22] MEDS: Gabapentin 100 MG CAPSULE 200 MG PO ×3 (09:26→20:39)
[2025-03-22] MEDS: Tamsulosin HCL 0.4 MG CAPSULE PO ×2 (09:26→20:39)
[2025-03-22] MEDS: Multivitamin TABLET 1 TAB PO (09:26)
[2025-03-22 10:27] LABS: INTERNATIONAL NORM RATIO 4.8 (0.9-1.1); Prothrombin Time 55.7 SEC (10.9-12.4)
--- NOTE | 2025-03-22 16:43 | HO.PM.IMPN ---
Subjective Subjective Date of Service: 03/22/25 Interval History: facial cellulitis Review of Systems sob seems improving skin erythema/changes seems somewhat improving Review of Systems: Yes all other systems are reviewed and are negative Physical Exam Vital Signs: Vital Signs: Last Vital Signs Temp 97.9 F 03/22/25 11:24 Pulse 88 03/22/25 15:16 Resp 16 03/22/25 15:16 BP 111/59 L 03/22/25 15:16 Pulse Ox 100 03/22/25 15:16 O2 Del Method Aerosol Mask 03/22/25 15:16 O2 Flow Rate 6 03/22/25 15:16 Oxygen Flow Rate 3 03/20/25 15:59 BMI result Body Mass Index 27.1 Appearance: Alert.? Oriented X3.? skin-changes somewhat improving cvs: rrr, [id number] . res: air entry somewhat improving -somewhat diminshed at bases . abd: no rebound or guarding ,nt, bs present. ext pulses present , no cyanosis. neuro: axo3 , nonfocal. Objective Data Active Medications Acetaminophen (Acetaminophen 325 Mg Tablet) 650 mg PO Q6H PRN PRN Reason: Pain, Mild 1-3,fever,headache Last Admin: 03/21/25 04:18 Dose: 650 mg Documented By: MAT Albuterol/Ipratropium (Albuterol/Iprat 2.5/0.5mg 3 Ml Ampul.Neb) 3 ml INHALE Q4H PRN PRN Reason: Shortness of Breath/Wheezing Albuterol/Ipratropium (Albuterol/Iprat 2.5/0.5mg 3 Ml Ampul.Neb) 3 ml INHALE RQ4H WHILE AWAKE REPLACED BY [facility] Last Admin: 03/22/25 14:48 Dose: 3 ml Documented By: EDIN Calcium Carbonate (Calcium Carbonate 750 Mg Tab.Chew) 750 mg PO Q4H PRN PRN Reason: Heartburn Carvedilol (Carvedilol 6.25 Mg Tablet) 6.25 mg PO BID REPLACED BY [facility]; Protocol Last Admin: 03/22/25 09:26 Dose: 6.25 mg Documented By: AMADOU Ceftriaxone Sodium (Ceftriaxone Sodium 1 Gm Vial) 1 gm IVPUSH Q24H REPLACED BY [facility] Last Admin: 03/22/25 06:04 Dose: 1 gm Documented By: PRASANNA Cyanocobalamin (Cyanocobalamin (Vitamin B-12) 1,000 Mcg Tablet) 1,000 mcg PO DAILY REPLACED BY [facility] Last Admin: 03/22/25 09:26 Dose: 1,000 mcg Documented By: AMADOU Furosemide (Furosemide 20 Mg Tablet) 60 mg PO DAILY REPLACED BY [facility]; Protocol Last Admin: 03/22/25 09:25 Dose: 60 mg Documented By: AMADOU Gabapentin (Gabapentin 100 Mg Capsule) 200 mg PO TID REPLACED BY [facility] Stop: 03/23/25 20:59 Last Admin: 03/22/25 15:15 Dose: 200 mg Documented By: AMADOU Vancomycin HCl 1,000 mg/ (Sodium Chloride) 270 mls @ 270 mls/hr IV Q24H REPLACED BY [facility] Last Infusion: 03/21/25 18:42 Dose: Infused Documented By: ALAN Lidocaine HCl (Lidocaine Hcl Viscous 2 % 15 Ml Solution) 15 ml MUCOUS MEM Q3H PRN PRN Reason: Mouth Sore Pain Last Admin: 03/21/25 00:04 Dose: 15 ml Documented By: MEGHAN Magnesium Hydroxide (Milk Of Magnesia 30 Ml Oral.Susp) 30 ml PO DAILY PRN PRN Reason: Constipation Melatonin (Melatonin 3 Mg Tablet) 6 mg PO BEDTIME PRN PRN Reason: Insomnia Last Admin: 03/21/25 00:04 Dose: 6 mg Documented By: MEGHAN Multivitamins/Vitamin C (Multivitamin Tablet) 1 tab PO DAILY REPLACED BY [facility] Last Admin: 03/22/25 09:26 Dose: 1 tab Documented By: AMADOU Nystatin (Nystatin Cream 15 Gm Tube) 1 appl TOPICAL BID REPLACED BY [facility]; Protocol Last Admin: 03/22/25 09:26 Dose: Not Given Documented By: AMADOU Non-Admin Reason: Med Not Available Ondansetron HCl (Ondansetron Hcl 4 Mg/2 Ml Vial) 4 mg IVPUSH Q8H PRN PRN Reason: Nausea and Vomiting Oxycodone HCl (Oxycodone Hcl Immed Release 5 Mg Tablet) 2.5 mg PO Q6H PRN PRN Reason: Pain, Severe (Pain Scale 7-10) Last Admin: 03/21/25 10:05 Dose: 2.5 mg Documented By: JASON Pharmacy Consult (Consult Rx Vancomycin Dosing) 1 each MISCELLANE DAILY PRN PRN Reason: Consult order Polyethylene Glycol (Polyethylene Glycol 3350 17 Gm Powd.Pack) 17 gm PO DAILY PRN PRN Reason: Constipation Senna (Sennosides 8.6 Mg Tablet) 17.2 mg PO BEDTIME REPLACED BY [facility] Last Admin: 03/21/25 20:19 Dose: 17.2 mg Documented By: ALAN Sodium Chloride (0.9 % Sodium Chloride Flush 3 Ml Syringe) 3 ml IVFLUSH QSHIFT REPLACED BY [facility] Last Admin: 03/22/25 15:16 Dose: 3 ml Documented By: AMADOU Tamsulosin HCl (Tamsulosin Hcl 0.4 Mg Capsule) 0.4 mg PO BID REPLACED BY [facility] Last Admin: 03/22/25 09:26 Dose: 0.4 mg Documented By: AMADOU Valacyclovir HCl (Valacyclovir Hcl 1,000 Mg Tablet) 1,000 mg PO Q8H REPLACED BY [facility] Stop: 03/28/25 02:59 Last Admin: 03/22/25 10:34 Dose: 1,000 mg Documented By: AMADOU Warfarin Sodium (Warfarin Sodium 3 Mg Tablet) 3 mg PO DAILY@1800 REPLACED BY [facility] Zolpidem Tartrate (Zolpidem Tartrate 5 Mg Tablet) 5 mg PO BEDTIME REPLACED BY [facility] Last Admin: 03/21/25 20:19 Dose: 5 mg Documented By: ALAN Labs 03/21/25 02:26 03/22/25 08:38 Labs: Laboratory Results - last 24 hr 03/22/25 03/22/25 03/22/25 08:38 10:12 15:00 PT 55.7 H D INR 4.8 H Anion Gap 15 Estim Creat Clear Calc 47.5 Estimated GFR > 60 Random Glucose 83 Calcium 8.7 Random Vancomycin 13.0 L Microbiology Microbiology Results: Microbiology 03/20/25 16:53 Gram Stain - Final Face Routine Culture - Preliminary 03/20/25 16:53 Blood Culture - Preliminary Blood - Venous No growth after 24 hours. 03/20/25 16:53 Blood Culture - Preliminary Blood - Venous No growth after 24 hours. Assessment and Plan (1) Facial cellulitis: Status: Acute Assessment and Plan: 84-year-old male with past medical history HFrEF, hypertension, permanent AFib on Coumadin, BPH, prostate cancer, COPD on home O2 3 L continuous, hyperlipidemia-came with facial swelling and some sob . Facial cellulitis/ likely shingles outbreak alone cranial nerve 5 sections V2 and V3 with impetigo/bacterial infection Patient is started on vancomycin and Valtrex has been added (reviewed with Dr. Thornton via tiger text and Dr. Donovan attending.) Lactic acid normal, no leukocytosis,Chest x-ray negative for acute findings plan: gabapentin and lidocaine .Vision unchanged left side ear does not hear well,he says he uses hearing aid at baseline CT of the head : negative,ct Soft tissue of the face and neck-Left preseptal cellulitis. No orbital cellulitis. Facial cellulitis without abscess.Associated cervical lymphadenopathy. ID consultation Permanent AFib on Coumadin-INR supratherapeutic Monitor closely, hold warfarin for today HFrEF: stable BNP is elevated at 214 last echo 2022, we will repeat echo for review as patient is having increased oxygen needs EKG negative for ischemic changes daily weights, low-sodium diet, intake and output. Continue Coreg,diuretics COPD-stable sob seems improving cxr negative possible compensatory Metabolic alkalosis-will add acetazolamide . maude walker p.r.n., supportive care oxygen continuous, baseline 3 L for home use Hypertension: flactuating on Coreg Hyperlipidemia -Continue statin BPH/history of prostate cancer-continue tamsulosin DVT prophylaxis: Coumadin. PPI prophylaxis: Omeprazole ongoing need :Facial cellulitis/ likely shingles outbreak alone cranial nerve 5 sections V2 and V3 with impetigo/bacterial infection-need iv antibiotics ,Id eval ,clinical monitering for facial edema. Quality Stroke Does the patient have a stroke diagnosis?: No Reason for No Anti-thrombotic by Day Two: N/A - Med Ordered VTE Prior VTE?: No VTE Risk Level:: Medical - moderate - high VTE Device Contraindication: N/A - Device Ordered VTE Drug Contraindication: N/A - Med Ordered
[2025-03-22] MEDS: vancomycin HCL 1,000 MG in 0.9 % Sodium Chloride 250 ML 270 MG IV (17:25)
[2025-03-22] MEDS: Sennosides 8.6 MG TABLET 17.2 MG PO (20:39)
[2025-03-22] MEDS: Zolpidem Tartrate 5 MG TABLET PO (20:40)
--- NOTE | 2025-03-22 23:24 | PC.NURSE ---
Pts o2sat was 97% on 3L decreased to 2L 96%.
[2025-03-23] MEDS: valACYclovir HCL 1,000 MG TABLET 1000 MG PO ×2 (02:52→10:26)
[2025-03-23] MEDS: Melatonin 3 MG TABLET 6 MG PO (02:52)
[2025-03-23] MEDS: cefTRIAXone sodium 1 GM VIAL IVPUSH (05:09)
[2025-03-23 05:55] VITALS: O2SAT 94
[2025-03-23 06:33] LABS: INTERNATIONAL NORM RATIO 4.3 (0.9-1.1); Prothrombin Time 49.6 SEC (10.9-12.4)
[2025-03-23 06:49] LABS: Creatinine Clr Calc Pharmacy 52.8; Estimated Glomerular Filt Rate > 60
[2025-03-23 06:54] VITALS: BP 127/62; PULSE 83; RESP 17; TEMP 36.6; O2SAT 92
[2025-03-23 08:51] VITALS: BP 133/90; PULSE 86
[2025-03-23] MEDS: Cyanocobalamin (Vitamin B-12) 1,000 MCG TABLET 1000 MCG PO (08:59)
[2025-03-23] MEDS: Multivitamin TABLET 1 TAB PO (08:59)
[2025-03-23] MEDS: Furosemide 20 MG TABLET 60 MG PO (08:59)
[2025-03-23] MEDS: carvediloL 6.25 MG TABLET PO (08:59)
[2025-03-23] MEDS: 0.9 % Sodium Chloride Flush 3 ML SYRINGE IVFLUSH (08:59)
[2025-03-23] MEDS: Gabapentin 100 MG CAPSULE 200 MG PO ×2 (08:59→14:31)
[2025-03-23] MEDS: Tamsulosin HCL 0.4 MG CAPSULE PO (08:59)
--- NOTE | 2025-03-23 09:36 | PM.DS ---
DS: Providers Provider Date of Service: 03/23/25 Date of admission: 03/20/25 19:23 Date of discharge: 03/23/25 Primary care physician: Jake Pepper MD Consults: 03/21/25 17:53 Consult to Infectious Diseases Routine Consulting Provider: [facility] Reason for consultation: ficial cellulitis Has provider been notified: No 03/22/25 09:33 Consult to Wound Care Routine Reason for consultation: redness/swelling to left face with small scabbed areas DS: Diagnosis Discharge Diagnosis (1) Facial cellulitis: Status: Acute DS: Summary Hospital Course Hospital Course: admission hpi Attending physician on admission: Zoraida Donovan Chief Complaint: Facial swelling Patient has an 84-year-old male with past medical history HFrEF, hypertension, permanent AFib on Coumadin, BPH, prostate cancer, COPD on home O2 3 L continuous, hyperlipidemia presents to ED per family for increasing SOB and noted facial swelling that per pt, started yesterday. Pt was started on Diflucan for thrush in the outpatient setting with no response. Patient offers that he does not have any of his [place] dentition. After examination suspect shingles outbreak affecting Left side of tongue and face from lower chin to left ear involving suborbital area. Pt states that his vision is unchanged. Pt has been having a posterior LANDERS as well, currently 5/10 after reeceiving tylenol. Pt denies chest pain, SOB at rest on oximask and abdominal pain. Pt is not having any chills or fever, N/V. Pt denies issues with diarrhea or constipation. Pt denies presence of rash anywhere else on body. Patient denies history of shingles and reports that he has not received the vaccination to prevent shingles outbreak. hospital course: 84-year-old male with past medical history HFrEF, hypertension, permanent AFib on Coumadin, BPH, prostate cancer, COPD on home O2 3 L continuous, hyperlipidemia-came with facial swelling and some sob . Facial cellulitis likely precipitated by shingles outbreak and lone cranial nerve 5 sections V2 and V3 with impetigo/bacterial infection. CT of the head : negative,ct Soft tissue of the face and neck-Left preseptal cellulitis. No orbital cellulitis. Facial cellulitis without abscess.Associated cervical lymphadenopathy. Patient treated with vancomycin, Ceftriaxone and Valtrex with signficant improvement, althogh continiues to have left side hearing loss. It is likely hearing loos will improve and if not may follow up on outpatient basis with speech and hearing. ID recommends completing antibiotics course with Doxycycline and Valtrex. He has decline VNA services Permanent AFib on Coumadin-INR supratherapeutic due to antibiotics, hold coumadin and monitor INR closely Time Attestation Discharge Coordination Time (in mins): 45 Quality: Safe Use of Opioids Does Pt have an Active Cancer Diagnosis on the Problem List?: No Quality: Stroke Does the patient have a stroke diagnosis?: No Physical Exam Vital Signs: Vital Signs: Last Vital Signs Temp 98 F 03/23/25 06:54 Pulse 86 03/23/25 08:51 Resp 17 03/23/25 06:54 BP 133/90 H 03/23/25 08:51 Pulse Ox 92 03/23/25 06:54 O2 Del Method Nasal Cannula 03/23/25 06:54 O2 Flow Rate 3 03/23/25 06:54 Oxygen Flow Rate 3 03/20/25 15:59 BMI result Body Mass Index 27.1 Const: Other: General: AO X 3, no acute distress Resp: CTA bilateral CVS: S1,S2,RRR GI: +BS, NT, no distention Skin: Neuro: motor grossly intact Psych: appropriate affect DS: Data Data Completed and Pending Labs on day of discharge: Laboratory Results - last 24 hr 03/22/25 03/22/25 03/23/25 10:12 15:00 05:49 PT 55.7 H D 49.6 H INR 4.8 H 4.3 H Creatinine 0.99 Estim Creat Clear Calc 52.8 Estimated GFR > 60 Random Vancomycin 13.0 L Preliminary micro results at discharge 03/20/25 16:53 Blood Culture - Preliminary Blood - Venous No growth after 48 hours. 03/20/25 16:53 Blood Culture - Preliminary Blood - Venous No growth after 48 hours. Discharge Plan Discharge Anticipated Discharge Date/Time: 03/23/25 13:48 Patient Disposition: Home Health Service Discharge Diagnosis: Cellulitis of the face, Herpes Referrals: Jake Pepper MD [Primary Care Provider] - 1 Week Discharge Medications: New doxycycline monohydrate 100 mg capsule 100 mg PO BID Qty: 14 0RF valacyclovir 1 gram Tablet 1,000 mg PO Q8H Qty: 0 0RF Continued tamsulosin 0.4 mg capsule 0.4 mg PO BID 90 Days Qty: 180 1RF furosemide 40 mg tablet 60 mg PO DAILY Qty: 135 4RF carvedilol 6.25 mg tablet 6.25 mg PO BID Qty: 180 3RF fluconazole 150 mg tablet 150 mg PO DAILY warfarin 3 mg tablet 4.5 mg PO FR warfarin 3 mg tablet 6 mg PO SUMOTUWETHSA nystatin 100,000 unit/gram cream 1 appl topical BID ipratropium-albuterol 0.5 mg-3 mg(2.5 mg base)/3 mL solution for nebulization 3 ml inhalation TID albuterol sulfate 90 mcg/actuation HFA aerosol inhaler 2 puff PO Q2H PRN (Reason: Shortness Of Breath Or Wheezing) Patient Comments: pt is unable to recall his medications cyanocobalamin (vitamin B-12) 1,000 mcg capsule 1,000 mcg PO DAILY multivitamin [One Daily Multivitamin] Tablet 1 tab PO DAILY zolpidem 5 mg tablet 5 mg PO BEDTIME warfarin 3 mg tablet See Rx Instructions PO DIRECTED Protocol: Dose Management Condition: Saturday (Week One) Dose/Route: 6 mg Instruction: 2 x 3 mg tablets Condition: Saturday Dose/Route: 6 mg Instruction: 2 x 3 mg tablets Condition: Saturday Dose/Route: 6 mg Instruction: 2 x 3 mg tablets Condition: Saturday Dose/Route: 6 mg Instruction: 2 x 3 mg tablets Condition: Dose/Route: 6 mg Instruction: 2 x 3 mg tablets Condition: Saturday Dose/Route: 4.5 mg Instruction: 1.5 x 3 mg tablets Condition: Saturday Dose/Route: 6 mg Instruction: 2 x 3 mg tablets Condition: Saturday (Week Two) Dose/Route: 6 mg Instruction: 2 x 3 mg tablets Condition: Saturday Dose/Route: 6 mg Instruction: 2 x 3 mg tablets Condition: Saturday Dose/Route: 6 mg Instruction: 2 x 3 mg tablets Condition: Saturday Dose/Route: 6 mg Instruction: 2 x 3 mg tablets Condition: Dose/Route: 6 mg Instruction: 2 x 3 mg tablets Condition: Saturday Dose/Route: 4.5 mg Instruction: 1.5 x 3 mg tablets Condition: Saturday Dose/Route: 6 mg Instruction: 2 x 3 mg tablets Protocol Text: Adjustment Start Date: 03/04/25 INR Value: 2.6 INR Date: 03/04/25 Recheck Date: 04/03/25 Additional Instructions: REVIEW FOOD LIST WEEKLY, EAT A MIX OF FRUITS AND VEGETABLES THAT YOU ENJOY AND CAN BALANE YOUR INR Rx Instructions: 6mg X6 days and 4.5mg X1 day orally, Take medication 1-2 tabs as directed per anticoagulation clinic based on your INR Discharge Orders: Discharge Order (Routine); Ordered 03/23/25 Ordered By: Marko Andrews Diet: Advance to usual diet Activity on Discharge: As tolerated Stand Alone Forms: Patient Portal Discharge page Print Language: Dominican Care Plan Goals: recovery from facial cellulitis Health Concerns: same as above Plan of Treatment: Take Doxycyline and Valtrex as recommended] Follow up with your Doctor in a week, and ask your doctor for outpatient speech and hearing referal if your hearing doesn't improve Assessment: see above Patient Instructions: Cellulitis (GEN)
[2025-03-23 11:10] VITALS: BP 117/60; PULSE 83; RESP 16; TEMP 36.6; O2SAT 92
[2025-03-23] MEDS: Albuterol/Iprat 2.5/0.5MG 3 ML AMPUL.NEB INHALE (11:16)
[2025-03-23 11:18] VITALS: PULSE 82; RESP 18; O2SAT 98
--- NOTE | 2025-03-23 13:51 | W.PM.IDCN ---
History of Present Illness Data of Consult Service Date: 03/22/25 Primary Care Provider: Jake Pepper MD [facility] Reason for consult: facial redness left He presents with about three days of facial redness and swelling. He has no fever or chills. It is unknown if he received zoster vaccination. Review of Systems Review of Systems: Yes all other systems are reviewed and are negative PMFSH Past Medical History Medical History Non-STEMI (non-ST elevated myocardial infarction) Paronychia Hypertensive emergency Vertigo Permanent atrial fibrillation Radiation cystitis High cholesterol Gout Hypertension Essential hypertension Prostate cancer Pulmonary nodules COPD (chronic obstructive pulmonary disease) Family History Family History Father No problems noted. Mother No problems noted. 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 Current occupational exposures/hazards: No Travel History Ebola Risk: Travel/Contact With Anyone From Affected Area/s: No Has Patient Experienced Ebola Symptoms: No Meds Allergies Allergy/AdvReac Type Severity Reaction Status Date / Time pneumococcal vaccine Allergy Intermediate RASH Verified 03/20/25 16:02 [PNEUMOCOCCAL VACCINE] amoxicillin [From Augmentin] Allergy Unknown Swelling Verified 03/20/25 16:02 clavulanic acid Allergy Unknown Swelling Verified 03/20/25 16:02 [From Augmentin] theophylline AdvReac Intermediate Loss of Verified 03/20/25 16:02 Appetite Active Medications: Current Medications Acetaminophen (Acetaminophen 325 Mg Tablet) 650 mg PO Q6H PRN PRN Reason: Pain, Mild 1-3,fever,headache Last Admin: 03/21/25 04:18 Dose: 650 mg Albuterol/Ipratropium (Albuterol/Iprat 2.5/0.5mg 3 Ml Ampul.Neb) 3 ml INHALE Q4H PRN PRN Reason: Shortness of Breath/Wheezing Albuterol/Ipratropium (Albuterol/Iprat 2.5/0.5mg 3 Ml Ampul.Neb) 3 ml INHALE RQ4H WHILE AWAKE [facility] Last Admin: 03/23/25 11:16 Dose: 3 ml Calcium Carbonate (Calcium Carbonate 750 Mg Tab.Chew) 750 mg PO Q4H PRN PRN Reason: Heartburn Carvedilol (Carvedilol 6.25 Mg Tablet) 6.25 mg PO BID [facility]; Protocol Last Admin: 03/23/25 08:59 Dose: 6.25 mg Ceftriaxone Sodium (Ceftriaxone Sodium 1 Gm Vial) 1 gm IVPUSH Q24H [facility] Last Admin: 03/23/25 05:09 Dose: 1 gm Cyanocobalamin (Cyanocobalamin (Vitamin B-12) 1,000 Mcg Tablet) 1,000 mcg PO DAILY [facility] Last Admin: 03/23/25 08:59 Dose: 1,000 mcg Furosemide (Furosemide 20 Mg Tablet) 60 mg PO DAILY DA; Protocol Last Admin: 03/23/25 08:59 Dose: 60 mg Gabapentin (Gabapentin 100 Mg Capsule) 200 mg PO TID DA Stop: 03/23/25 20:59 Last Admin: 03/23/25 08:59 Dose: 200 mg Vancomycin HCl 1,000 mg/ (Sodium Chloride) 270 mls @ 270 mls/hr IV Q24H [facility] Last Infusion: 03/22/25 18:30 Dose: Infused Lidocaine HCl (Lidocaine Hcl Viscous 2 % 15 Ml Solution) 15 ml MUCOUS MEM Q3H PRN PRN Reason: Mouth Sore Pain Last Admin: 03/21/25 00:04 Dose: 15 ml Magnesium Hydroxide (Milk Of Magnesia 30 Ml Oral.Susp) 30 ml PO DAILY PRN PRN Reason: Constipation Melatonin (Melatonin 3 Mg Tablet) 6 mg PO BEDTIME PRN PRN Reason: Insomnia Last Admin: 03/23/25 02:52 Dose: 6 mg Multivitamins/Vitamin C (Multivitamin Tablet) 1 tab PO DAILY [facility] Last Admin: 03/23/25 08:59 Dose: 1 tab Nystatin (Nystatin Cream 15 Gm Tube) 1 appl TOPICAL BID [facility]; Protocol Last Admin: 03/23/25 09:01 Dose: Not Given Ondansetron HCl (Ondansetron Hcl 4 Mg/2 Ml Vial) 4 mg IVPUSH Q8H PRN PRN Reason: Nausea and Vomiting Oxycodone HCl (Oxycodone Hcl Immed Release 5 Mg Tablet) 2.5 mg PO Q6H PRN PRN Reason: Pain, Severe (Pain Scale 7-10) Last Admin: 03/21/25 10:05 Dose: 2.5 mg Pharmacy Consult (Consult Rx Vancomycin Dosing) 1 each MISCELLANE DAILY PRN PRN Reason: Consult order Polyethylene Glycol (Polyethylene Glycol 3350 17 Gm Powd.Pack) 17 gm PO DAILY PRN PRN Reason: Constipation Senna (Sennosides 8.6 Mg Tablet) 17.2 mg PO BEDTIME [facility] Last Admin: 03/22/25 20:39 Dose: 17.2 mg Sodium Chloride (0.9 % Sodium Chloride Flush 3 Ml Syringe) 3 ml IVFLUSH QSHIFT [facility] Last Admin: 03/23/25 08:59 Dose: 3 ml Tamsulosin HCl (Tamsulosin Hcl 0.4 Mg Capsule) 0.4 mg PO BID [facility] Last Admin: 03/23/25 08:59 Dose: 0.4 mg Valacyclovir HCl (Valacyclovir Hcl 1,000 Mg Tablet) 1,000 mg PO Q8H [facility] Stop: 03/28/25 02:59 Last Admin: 03/23/25 10:26 Dose: 1,000 mg Warfarin Sodium (Warfarin Sodium 3 Mg Tablet) 3 mg PO DAILY@1800 DA Zolpidem Tartrate (Zolpidem Tartrate 5 Mg Tablet) 5 mg PO BEDTIME [facility] Last Admin: 03/22/25 20:40 Dose: 5 mg Home Medications ?Medication ?Instructions ?Recorded ?Confirmed ?Last Taken ?Type albuterol sulfate 90 mcg/actuation 2 puff PO Q2H PRN Shortness Of 09/07/20 03/21/25 11/29/21 History aerosol inhaler Breath Or Wheezing cyanocobalamin (vitamin B-12) 1,000 mcg PO DAILY 09/13/23 03/21/25 Unknown History 1,000 mcg capsule multivitamin (One Daily 1 tab PO DAILY 09/13/23 03/21/25 Unknown History Multivitamin tablet) zolpidem 5 mg tablet 5 mg PO BEDTIME 02/04/25 03/21/25 Unknown History warfarin 3 mg tablet See Rx Instructions PO DIRECTED 03/04/25 03/04/25 Unknown History fluconazole 150 mg tablet 150 mg PO DAILY 03/21/25 03/21/25 Unknown History ipratropium 0.5 mg-albuterol 3 mg 3 ml inhalation TID wheezing 03/21/25 03/21/25 Unknown History (2.5 mg base)/3 mL nebulization soln nystatin 100,000 unit/gram topical 1 appl topical BID 03/21/25 03/21/25 Unknown History cream warfarin 3 mg tablet 4.5 mg PO FR 03/21/25 03/21/25 Unknown History warfarin 3 mg tablet 6 mg PO SUMOTUWETHSA 03/21/25 03/21/25 03/20/25 History Physical Exam Vital Signs: Vital Signs: Last Vital Signs Temp 98 F 03/23/25 11:10 Pulse 82 03/23/25 11:18 Resp 18 03/23/25 11:18 BP 117/60 03/23/25 11:10 Pulse Ox 92 03/23/25 11:10 O2 Del Method Nasal Cannula 03/23/25 11:10 O2 Flow Rate 3 03/23/25 11:10 Oxygen Flow Rate 3 03/20/25 15:59 BMI result Body Mass Index 27.1 Const: General: cooperative HEENT: Other: reddened facial area left side Face and sinus: Yes normal facial exam Mouth: Normal oral and palatal mucosa present Teeth and gingiva: dentition normal Eyes: General: appearance normal, both eyes and all related structures Pupils: Equal, round and reactive pupils present Resp: Effort & Inspection: normal respiratory effort Cardio: Rate: regular rate Rhythm: regular rhythm GI: Palpation (GI): Soft to palpation and nontender : General: Yes no CVA tenderness Back/Spine/Pelvis: Back: no CVA tenderness Skin: General skin exam: no rashes or lesions noted Neuro: General: moves all extremities Cranial nerves: Yes Equal, round and reactive pupils present Extrem: General: Yes normal to inspection Psych: Appearance: grossly normal Results Labs 03/21/25 02:26 03/23/25 05:49 Labs: BMP 03/23/25 05:49 Creatinine 0.99 Microbiology Microbiology Results: Microbiology 03/20/25 16:53 Face Gram Stain - Final 03/20/25 16:53 Face Routine Culture - Final 03/20/25 16:53 Blood - Venous Blood Culture - Preliminary No growth after 48 hours. 03/20/25 16:53 Blood - Venous Blood Culture - Preliminary No growth after 48 hours. Assessment and Plan (1) Facial cellulitis: Status: Acute Plan Since improving on Vancomycin and antivirals would switch to po Doxycycline and Valtrex for 10 days
--- NOTE | 2025-03-23 14:00 | MHC.CM.PN ---
DP: PT HAS BEEN MEDICALLY CLEARED FOR DC HOME. PT IS DECLINING HOME SERVICES AT THIS TIME. PT GAVE CM PERMISSION TO CALL TO P/U. AWARE PT HAS DECLINED HOME SERVICES AND IS IN AGREEMENT WITH PLAN. CM REMINDED PT/ IF THEY FEEL THEY NEED SERVICES ONCE HOME TO CONTACT PCP OFFICE FOR A DIRECT REFERRAL. MD MADE AWARE OF PLAN.
[2025-03-23 15:10] VITALS: BP 115/67; PULSE 88; RESP 20; TEMP 36.2; O2SAT 94
== END 2025-03-23 15:16 | disposition home or self-care (01) | DRG 866 ==
LOC: HO.ED 16:23 → HO.EDOVER 19:46 → HO.S3 03-22 07:27
PROVIDERS: Internal Medicine; Nurse Practitioner Family; Registered Nurse Emergency; Admitting Provider Student in an Organized Health Care Education/Training Program; Emergency Provider Internal Medicine; PCP Internal Medicine; Visit Provider Internal Medicine
DX: B02.8 Zoster with other complications (principal); I48.21 Permanent atrial fibrillation; E87.3 Alkalosis; I50.22 Chronic systolic (congestive) heart failure; L03.211 Cellulitis of face; B37.0 Candidal stomatitis; I11.0 Hypertensive heart disease with heart failure; E78.5 Hyperlipidemia, unspecified; L01.00 Impetigo, unspecified; N40.0 Benign prostatic hyperplasia without lower urinary tract symptoms; J44.9 Chronic obstructive pulmonary disease, unspecified; R79.1 Abnormal coagulation profile; Z85.46 Personal history of malignant neoplasm of prostate; Z20.822 Contact with and (suspected) exposure to COVID-19; Z99.81 Dependence on supplemental oxygen; Z87.891 Personal history of nicotine dependence; Z79.01 Long term (current) use of anticoagulants; Z79.899 Other long term (current) drug therapy
CPT/HCPCS: 0241U; 36415; 70450; 70491; 71046; 80048; 80053; 80202; 81001; 81003; 82565; 82803; 83605; 83735; 83880; 84443; 84484; 85025; 85610; 87040; 87070; 87205; 87633; 93005; 93306; 94640; 99285; J0696; J1450; J1938; J3370; J3371; Q9967

== ENCOUNTER → 2025-03-20 16:01 | Outpatient (BNV) | payer MEDICARE, SELFPAY | PROVIDERS: Emergency Provider Internal Medicine; PCP Internal Medicine; Visit Provider Radiology Diagnostic Radiology | DX: L03.213 Periorbital cellulitis (principal); R59.0 Localized enlarged lymph nodes; I65.22 Occlusion and stenosis of left carotid artery; R51.9 Headache, unspecified; R06.00 Dyspnea, unspecified; Z87.09 Personal history of other diseases of the respiratory system | CPT/HCPCS: 70450; 70491; 71046 ==

== ENCOUNTER → 2025-03-20 16:01 | Outpatient (BNV) | payer MEDICARE, SELFPAY | PROVIDERS: Admitting Provider Student in an Organized Health Care Education/Training Program; Emergency Provider Internal Medicine; PCP Internal Medicine; Visit Provider Internal Medicine Cardiovascular Disease | DX: I48.91 Unspecified atrial fibrillation (principal); I25.2 Old myocardial infarction | CPT/HCPCS: 93010 ==

== ENCOUNTER 2025-03-20 19:23 | Outpatient (BNV) | payer MEDICARE, SELFPAY | END 2025-03-22 07:00 | PROVIDERS: Admitting Provider Student in an Organized Health Care Education/Training Program; Emergency Provider Internal Medicine; PCP Internal Medicine; Visit Provider Internal Medicine Cardiovascular Disease | DX: I51.7 Cardiomegaly (principal); I35.8 Other nonrheumatic aortic valve disorders | CPT/HCPCS: 93306 ==

== ENCOUNTER → 2025-03-20 19:23 | Outpatient (BNV) | payer MEDICARE, SELFPAY | PROVIDERS: Admitting Provider Student in an Organized Health Care Education/Training Program; Emergency Provider Internal Medicine; PCP Internal Medicine; Visit Provider Nurse Practitioner Family | DX: L03.211 Cellulitis of face (principal) | CPT/HCPCS: 99223; 99232 ==

== ENCOUNTER → 2025-03-20 19:23 | Outpatient (BNV) | payer MEDICARE, SELFPAY | PROVIDERS: Admitting Provider Student in an Organized Health Care Education/Training Program; Emergency Provider Internal Medicine; PCP Internal Medicine; Visit Provider Internal Medicine | DX: L03.211 Cellulitis of face (principal) | CPT/HCPCS: 99232 ==

== ENCOUNTER 2025-04-01 09:18 | Outpatient (AMB) | payer MEDICARE, SELFPAY ==
--- OUTSIDE RECORDS SUMMARY | 2025-03-29 07:45 | XMS_ITS ---
Author Organization Jake Pepper MD Address [address] [place], [place] [phone] Care Team Providers Care Customer Support Associate Name Role Phone Jake Pepper Primary Care Provider [phone] Allergies Allergen (clinical drug ingredient) Drug/Non Drug [...] TABLET BY NIGEL EVERY DAY Active Nystatin 252481 UNIT/GM 1 application Externally Twice a day [...] CAPSULE BY MOUTH TWICE DAILY Active Nystatin 178248 UNIT/GM 1 application Externally Twice a day [...] 14 DAYS Oral for 14 Not-Taking Nystatin-Triamcinolone 170485-8.1 UNIT/GM 1 application Externally Twice a day [...] Date Provider Diagnosis Jake Pepper MD [address] [facility] [address] [place], [place] [phone] 03/29/2025 Jake Pepper Essential hypertension I10 ; [...] resolved Next Appt Details Provider Name:Jake schmidt, 04/05/2025 10:30:00 AM, [address] [facility], [address], [place], [place], [phone], Provider Name:Jake schmidt, 08/19/2025 07:00:00 AM, [address], [address], [place], [place], [phone], Provider Name:Jake Miller ier, 08/26/2025 10:00:00 AM, [address] [facility] [address], [address], [place], [phone], Provider Name:Jake Miller ier, 02/24/2026 07:15:00 AM, [address], [address], [place], [phone], Provider Name:Jake Miller ier, 03/03/2026 09:30:00 AM, [address] [facility] [address], [address], [place], [place], [phone], Progress Notes * LARRYKalyan ESCALERA RDOB: [birth year] (84 yo M)Acc No.[id number]:03/29/2025 Progress Notes Patient: Kalyan KENNEDY Provider: Aly Pepper MD :1940 A ge:84 Y S ex:Male Date:03/29/2025 Address:[address] [place] [address] ABUNDIO DICKERSONMCINTIRE, [id number] Subjective: * Chief Complaints: * 1 . F/U ERV Shingles. 2. Accompanied by . * HPI: S ymptom(s): patient is a [...] D enies N ausea. * Medical History: 0 03/2004 - colonoscopy (repeat 10 years); colonoscopy [address] Rajput, Smoker unmotivated to quit, Biculatimide and finasteraide for prostate cancer. * Medications: T aking valACYclovir HCl 1 GM Tablet 1 tablet Orally Once a day , Taking Doxycycline Monohydrate 100 MG Capsule 1 capsule Orally Once a day , Taking Vitamin B12 1000 MCG Tablet Extended Release 1 tablet Orally Once a day , Taking Nystatin 263044 UNIT/GM Ointment 1 application Externally Twice a day , Taking Furosemide 40 MG Tablet TAKE 1 TABLET BY MOUTH EVERY DAY , Taking Tamsulosin HCl 0.4 MG Capsule TAKE 1 CAPSULE BY MOUTH TWICE DAILY , Taking Warfarin Sodium 3 MG Tablet TAKE 2 TO 2 AND 1/2 TABLETS BY MOUTH DAILY , Taking Ipratropium-Albuterol 0.5-2.5 (3) MG/3ML Solution 3 ml as needed Inhalation every 6 hrs , Taking Carvedilol 3.125 MG Tablet 1 tablet with food Orally Twice a day , Taking Atorvastatin Calcium 40 MG Tablet 1 tablet Orally Once a day , Taking Albuterol Sulfate (sensor) 108 (90 Base) MCG/ACT Aerosol Powder Breath Activated 1 puff as needed Inhalation every 4 hrs , Taking Zolpidem Tartrate 5 MG Tablet TAKE 1 TABLET BY MOUTH DAILY AT BEDTIME Orally Once a day , Taking Diflucan 150 MG Tablet 1 tablet Orally , Taking Nystatin 452237 UNIT/GM Cream 1 application Externally Twice a day , Not-Taking/PRN amLODIPine Besylate 5 MG Tablet 1 tablet Orally Once a day , Not-Taking/PRN Fioricet 50-300-40 MG Capsule 1 capsule as needed Orally every 12 hrs as needed , Not-Taking/PRN Meclizine HCl 25 MG Tablet 1 tablet as needed Orally Once a day as needed , Not-Taking/PRN Ocuflox 0.3 % Solution 1 drop into affected eye Ophthalmic Four times a day , Not-Taking/PRN Bicalutamide 50 MG Tablet 1 tablet Orally Once a day , Not-Taking/PRN oxyBUTYnin Chloride 5 MG Tablet TAKE 1 TABLET BY MOUTH DAILY , Not-Taking/PRN Wixela Inhub 250-50 MCG/DOSE Aerosol Powder Breath Activated 1 puff Inhalation Twice a day , Not-Taking/PRN Nystatin-Triamcinolone 212505-8.1 UNIT/GM Cream 1 application Externally Twice a day , Not-Taking/PRN Famotidine 40 MG Tablet TK 1 T PO QD HS FOR 14 DAYS Oral , Not-Taking/PRN Cyclobenzaprine HCl 5 MG Tablet 1 tablet Orally Three times a day , Not-Taking/PRN Ventolin HFA 108 (90 Base) MCG/ACT Aerosol Solution 2 puffs as needed Inhalation every 4 hrs * Allergies: P neumovax: local reaction redness, Lamisil: rash. Objective: * Vitals: H t: 65, Wt: [...] regiment 4. T hrush Notes: resolved * * The named appointment provid er may or may not be the originator of this progress note, and it is not deemed complete until electronically signed by the appointment provider. Sign off status: Pending * Provider: Aly Pepper MD Date: 0 03/29/2025 Generated for Mabel trotter/Ashish/Franciscoitting on: 0 04/01/2025 10:11 AM EDT History and Physical Notes * HPI (History [...]
[2025-04-01 09:44] LABS: ~PT, ~INR - Anti Coag Clinic 5.4 (0.9-1.1)
--- NOTE | 2025-04-01 11:20 | MHC.OFFVISCO ---
Intake Intake Visit Reasons: Anticoagulation Allergies pneumococcal vaccine (PNEUMOCOCCAL VACCINE) Allergy (Intermediate, Verified 04/01/25 09:35) RASH amoxicillin (From Augmentin) Allergy (Unknown, Verified 04/01/25 09:35) Swelling clavulanic acid (From Augmentin) Allergy (Unknown, Verified 04/01/25 09:35) Swelling theophylline Adverse Reaction (Intermediate, Verified 04/01/25 09:35) Loss of Appetite Medication List - Last Reconciled 04/01/25 by Gertrudis Simeon RN albuterol sulfate 90 mcg/actuation 2 puffs PO Q2H PRN carvedilol 6.25 mg PO BID cyanocobalamin (vitamin B-12) 1,000 mcg PO DAILY fluconazole 150 mg PO DAILY furosemide 60 mg (1.5 x 40 mg) PO DAILY ipratropium-albuterol 0.5 mg-3 mg(2.5 mg base)/3 mL 3 mL inhalation TID multivitamin (One Daily Multivitamin tablet) 1 tab PO DAILY nystatin 1 appl topical BID tamsulosin 0.4 mg PO BID 90 days warfarin See Protocol 6mg X6 days and 4.5mg X1 day orally, Take medication 1-2 tabs as directed per anticoagulation clinic based on your INR zolpidem 5 mg PO BEDTIME Nursing Note Pt ambulates with cane to appt semi steady gait, comes with supportive INR 5.4 out of therapeutic range Medications and supplements reviewed Patient status: pt is post admission from shingle and cellulitis infection on left side of face. still has ear pain Medications or supplements: he completed doxycycline and valacyclovir, and has a few doses left of fluconazole and tylenol for pain Diet: better- just ate aspagus yesterday Denies any signs and symptoms of bleeding or clotting or unusual bruising Bleeding, bruising, clotting discussed Nutritional guidance given: eat another serving of greens again today Dose: already took today's dose in am - hold Saturday and Sat dose decrease Saturday's dose to 3mg and recheck Saturday F/U INR Date: 04/05/25 ?? Patient verbalizing understanding of instructions given. 1008 t/c to Dr Gamboa spoke with Nahed MONTEJO regarding pt status and plan of care - she will convey msg to PCP and will call with any changes in plan of care Anti-Coag Initial Assessment Social Hx Patient Tobacco Use Status: Former Tobacco user alcohol intake: never Alcohol intake frequency: 0-2 drinks per day Cardiovascular Hx: HTN, MN (non stemi) and Arrhythmias (afib) Lung Disease HX: COPD Musculoskeletal Hx: Gout Blood Disorder Hx: Hyperlipidemia GI Hx: Hemorrhoids Hx: Kidney Disease (naren) and Prostate (prostate cancer) Cancer HX: Yes Psych. Illness/Depression: No Coding Level of Care Code Est Patient Level 1 Diagnoses Current use of anticoagulant therapy Z79.01 Results AMB INR Fingerstick AMB INR Fingerstick 5.4 Last Edit by Gertrudis Simeon RN on 04/01/25 09:46 manual entry Assessment & Plan Assessment & Plan (1) Current use of anticoagulant therapy: Code(s): Z79.01 - oysterman (current) use of anticoagulants Category: Medical
== END 2025-04-01 11:27 | disposition home or self-care (01) ==
LOC: HO.ACS 09:18
PROVIDERS: PCP Internal Medicine; Visit Provider Internal Medicine Medical Oncology
DX: Z79.01 Long term (current) use of anticoagulants (principal)

== ENCOUNTER → 2025-04-01 09:18 | Outpatient (BNVA) | payer MEDICARE, SELFPAY | PROVIDERS: PCP Internal Medicine; Visit Provider Internal Medicine Medical Oncology | DX: Z79.01 Long term (current) use of anticoagulants (principal) | CPT/HCPCS: 85610; 99211 ==

== ENCOUNTER 2025-04-05 11:14 | Outpatient (AMB) | payer MEDICARE, SELFPAY ==
--- OUTSIDE RECORDS SUMMARY | 2025-03-29 07:45 | XMS_ITS ---
Author Organization Jake Pepper MD Address [address] [place], [place] [phone] Care Team Providers Care Statistical Reporting Analyst Name Role Phone Jake Pepper Primary Care Provider [phone] Allergies Allergen (clinical drug ingredient) Drug/Non [...] TABLET BY NIGEL EVERY DAY Active Nystatin 540305 UNIT/GM 1 application Externally Twice a day [...] CAPSULE BY MOUTH TWICE DAILY Active Nystatin 716507 UNIT/GM 1 application Externally Twice a day [...] 14 DAYS Oral for 14 Not-Taking Nystatin-Triamcinolone 446239-5.1 UNIT/GM 1 application Externally Twice a day [...] Date Provider Diagnosis Jake Pepper MD [address] [facility] [address] [place], [place] [phone] 03/29/2025 Jake Pepper Essential hypertension I10 ; [...] resolved Next Appt Details Provider Name:Jake schmidt, 04/20/2025 10:00:00 AM, [address] [facility], [address], [place], [place], [phone], Provider Name:Jake schmidt, 08/19/2025 07:00:00 AM, [address] [facility], [address], [place], [place], [phone], Provider Name:Jake Miller ier, 08/26/2025 10:00:00 AM, [address] [facility], [address], [place], [place], [phone], Provider Name:Jake Miller ier, 02/24/2026 07:15:00 AM, [address] [place] [address], [address], [place], [place], [phone], Provider Name:Jake Miller ier, 03/03/2026 09:30:00 AM, [address] [place] [address], Suite [facility], [place], [place], [phone], Progress Notes * LARRYKalyan ESCALERA RDOB: [birth year] (84 yo M)Acc No.[id number]:03/29/2025 Progress Notes Patient: Kalyan KENNEDY Provider: Aly Pepper MD :1940 A ge:84 Y S ex:Male Date:03/29/2025 Address:[address] [place] [address] ABUNDIO DICKERSONWINDSOR, [id number] Subjective: * Chief Complaints: * F /U [...] 1 tablet Orally Once a day Nystatin 954558 UNIT/GM Ointment 1 application Externally Twice a [...] 150 MG Tablet 1 tablet Orally Nystatin 916425 UNIT/GM Cream 1 application Externally Twice a day Taking valACYclovir HCl 1 GM Tablet 1 tablet Orally Once a day Taking Doxycycline Monohydrate 100 MG Capsule 1 capsule Orally Once a day Taking Vitamin B12 1000 MCG Tablet Extended Release 1 tablet Orally Once a day Taking Nystatin 047471 UNIT/GM Ointment 1 application Externally Twice a [...] MG Tablet 1 tablet Orally Taking Nystatin 522620 UNIT/GM Cream 1 application Externally Twice a [...] 1 puff Inhalation Twice a day Nystatin-Triamcinolone 434692-2.1 UNIT/GM Cream 1 application Externally Twice a [...] puff Inhalation Twice a day Not-Taking/PRN Nystatin-Triamcinolone 099238-6.1 UNIT/GM Cream 1 application Externally Twice a [...] MD Date: 0 03/29/2025 Generated for Mabel trotter/Ashish/eTmartinsmitting on: 04/05/2025 12:05 PM EDT History and Physical Notes * HPI [...]
--- NOTE | 2025-04-05 12:00 | MHC.OFFVISCO ---
Intake Intake Visit Reasons: Anticoagulation Allergies pneumococcal vaccine (PNEUMOCOCCAL VACCINE) Allergy (Intermediate, Verified 04/05/25 11:41) RASH amoxicillin (From Augmentin) Allergy (Unknown, Verified 04/05/25 11:41) Swelling clavulanic acid (From Augmentin) Allergy (Unknown, Verified 04/05/25 11:41) Swelling theophylline Adverse Reaction (Intermediate, Verified 04/05/25 11:41) Loss of Appetite Medication List - Last Reconciled 04/05/25 by Gertrudis Simeon RN albuterol sulfate 90 mcg/actuation 2 puffs PO Q2H PRN carvedilol 6.25 mg PO BID cyanocobalamin (vitamin B-12) 1,000 mcg PO DAILY furosemide 60 mg (1.5 x 40 mg) PO DAILY gabapentin mg PO ipratropium-albuterol 0.5 mg-3 mg(2.5 mg base)/3 mL 3 mL inhalation TID multivitamin (One Daily Multivitamin tablet) 1 tab PO DAILY nystatin 1 appl topical BID tamsulosin 0.4 mg PO BID 90 days warfarin See Protocol 6mg X6 days and 4.5mg X1 day orally, Take medication 1-2 tabs as directed per anticoagulation clinic based on your INR zolpidem 5 mg PO BEDTIME Nursing Note INR: 4.7 OUT OF therapeutic range- pt had been 2 antibiotics and an antifungal that could all raise his INR result - warfarin was held x 2 days and decreased on the 3 rd day. pt lost his balance at home and fell over the weekend, has abrasions on both arms, saw PCP today and he applied a drsg to his right arm, He has been in pain from shingles around his ear, MD prescribed Gabapentin today for his nerve pain. He plans to start it today. Pt already took today's dose and ate beets yesterday- which can raise the INR Medications and supplements reviewed No changes in health, diet, medications, or supplements, Denies any signs and symptoms of bleeding or bruising or clotting. Bleeding, bruising, clotting discussed Nutritional guidance given- greens today Dose: pt already took today's dose - he will eat greens today- hold tomorrow's dose then resume usual dose and diet, F/U INR: 1 week Patient verbalizes understanding of instructions given Anti-Coag Initial Assessment Social Hx Patient Tobacco Use Status: Former Tobacco user alcohol intake: never Alcohol intake frequency: 0-2 drinks per day Cardiovascular Hx: HTN, ID (non stemi) and Arrhythmias (afib) Lung Disease HX: COPD Musculoskeletal Hx: Gout Blood Disorder Hx: Hyperlipidemia GI Hx: Hemorrhoids Hx: Kidney Disease (naren) and Prostate (prostate cancer) Cancer HX: Yes Psych. 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
[2025-04-05 12:29] LABS: Prothrombin Time Whole Bld POC 55.9 sec (11.1-13.5); ~PT, ~INR - Anti Coag Clinic 4.7 (0.9-1.1)
== END 2025-04-05 12:15 | disposition home or self-care (01) ==
LOC: HO.ACS 11:14
PROVIDERS: PCP Internal Medicine; Visit Provider Internal Medicine Medical Oncology
DX: Z79.01 Long term (current) use of anticoagulants (principal)

== ENCOUNTER → 2025-04-05 11:14 | Outpatient (BNVA) | payer MEDICARE, SELFPAY | PROVIDERS: PCP Internal Medicine; Visit Provider Internal Medicine Medical Oncology | DX: Z79.01 Long term (current) use of anticoagulants (principal) | CPT/HCPCS: 85610; 99211 ==

== ENCOUNTER 2025-04-12 09:20 | Outpatient (AMB) | payer MEDICARE, SELFPAY ==
--- OUTSIDE RECORDS SUMMARY | 2025-04-05 08:22 | XMS_ITS ---
Author Organization Jake Pepper MD Address [address] [place], [place] [phone] Care Team Providers Care Free Lance Artist Name Role Phone Jake Pepper Primary Care Provider [phone] REASON FOR VISIT [facility] Encounters Encounter Location Date Provider Diagnosis Jake Pepper MD [address] [place], [place] [phone] 04/05/2025 Jake Pepper Plan Of Treatment Next Appt Details Provider Name:Jake schmidt, 04/20/2025 10:00:00 AM, [address] [facility], [address] [facility], [place], [place], [phone], Provider Name:Jake schmidt, 08/19/2025 07:00:00 AM, [address], [address], [place], [phone], Provider Name:Jake Miller ier, 08/26/2025 10:00:00 AM, [address] [facility], [address], [place], [phone], Provider Name:Jake Miller ier, 02/24/2026 07:15:00 AM, [address] [place] [address], [address], [place], [phone], Provider Name:Jake Miller ier, 03/03/2026 09:30:00 AM, [address] [facility], [address], [place], [phone], Progress Notes * Kalyan JUAREZ RDOB: [birth year] (84 yo M)Acc No.[id number]:04/05/2025 Patient: Kalyan KENNEDY :1940 A ge:84 Y S ex:Male Address:[address] [place], [place] [address] [address] * * Date:
[2025-04-12 09:40] LABS: Prothrombin Time Whole Bld POC 49.7 sec (11.1-13.5); ~PT, ~INR - Anti Coag Clinic 4.1 (0.9-1.1)
--- NOTE | 2025-04-12 09:48 | MHC.OFFVISCO ---
Intake Intake Visit Reasons: Anticoagulation Allergies pneumococcal vaccine (PNEUMOCOCCAL VACCINE) Allergy (Intermediate, Verified 04/12/25 09:21) RASH amoxicillin (From Augmentin) Allergy (Unknown, Verified 04/12/25 09:21) Swelling clavulanic acid (From Augmentin) Allergy (Unknown, Verified 04/12/25 09:21) Swelling theophylline Adverse Reaction (Intermediate, Verified 04/12/25 09:21) Loss of Appetite Medication List - Last Reconciled 04/12/25 by Gertrudis Simeon RN albuterol sulfate 90 mcg/actuation 2 puffs PO Q2H PRN carvedilol 6.25 mg PO BID cyanocobalamin (vitamin B-12) 1,000 mcg PO DAILY furosemide 60 mg (1.5 x 40 mg) PO DAILY gabapentin mg PO ipratropium-albuterol 0.5 mg-3 mg(2.5 mg base)/3 mL 3 mL inhalation TID multivitamin (One Daily Multivitamin tablet) 1 tab PO DAILY nystatin 1 appl topical BID tamsulosin 0.4 mg PO BID 90 days warfarin See Protocol 6mg X6 days and 4.5mg X1 day orally, Take medication 1-2 tabs as directed per anticoagulation clinic based on your INR zolpidem 5 mg PO BEDTIME Nursing Note INR 4.1 out of therapeutic range Medications and supplements reviewed Patient status: s/p shingle pain and antibiotics and antifungals, has post shingle headache and taking tylenol- states he has headaches frequently 5-6/10 pain scale and MD is aware - Medications or supplements: gabapentin throughto 04/13/25, taking tylenol for headache Diet: good - tries to balance his diet Denies any signs and symptoms of bleeding or clotting or unusual bruising Bleeding, bruising, clotting discussed Nutritional guidance given: avoid reds today, eat greens if able Dose: hold today then 6mg sat and recheck - possible decreased dose while taking tylenol 3mg x 2 days / 6mg x 5 days F/U INR Date: 04/15/25 ?? Patient and verbalizing understanding of instructions given and will contact PCP or go to ER if headache pain worsens in any way . Anti-Coag Initial Assessment Social Hx Patient Tobacco Use Status: Former Tobacco user alcohol intake: never Alcohol intake frequency: 0-2 drinks per day Cardiovascular Hx: HTN, NC (non stemi) and Arrhythmias (afib) Lung Disease HX: COPD Musculoskeletal Hx: Gout Blood Disorder Hx: Hyperlipidemia GI Hx: Hemorrhoids Hx: Kidney Disease (naren) and Prostate (prostate cancer) Cancer HX: Yes Psych. Illness/Depression: No Coding Level of Care Code Est Patient Level 1 Diagnoses Current use of anticoagulant therapy Z79.01 Results AMB INR Fingerstick AMB INR Fingerstick 4.1 Last Edit by Gertrudis Simeon RN on 04/12/25 09:29 MANUAL ENTRY Assessment & Plan Assessment & Plan (1) Current use of anticoagulant therapy: Code(s): Z79.01 - correction (current) use of anticoagulants Category: Medical
--- OUTSIDE RECORDS SUMMARY | 2025-04-12 09:49 | XMS_ITS | Patient Health Record ---
Author Organization [facility] Address [address] [place] [address] Care Team Providers Care Window/Distribution Clerk Name Role Phone Jake Pepper MD Primary Care Provider Luther Rajput Jr [facility] Allergies Allergen (clinical drug ingredient) Drug/Non Drug Allergy documented on EMR Reaction Allergy Type Onset Date Status Streptococcus pneumoniae type 1 capsular polysaccharide antigen / Streptococcus pneumoniae type 10A capsular polysaccharide antigen / Streptococcus pneumoniae type 11A capsular polysaccharide antigen / Streptococcus pneumoniae type 12F capsular polysaccharide antigen / Streptococcus pneumoniae type 14 capsular polysaccharide antigen / Streptococcus pneumoniae type 15B capsular polysaccharide antigen / Streptococcus pneumoniae type 17F capsular polysaccharide antigen / Streptococcus pneumoniae type 18C capsular polysaccharide antigen / Streptococcus pneumoniae type 19A capsular polysaccharide antigen / Streptococcus pneumoniae type 19F capsular polysaccharide antigen / Streptococcus pneumoniae type 2 capsular polysaccharide antigen / Streptococcus pneumoniae type 20 capsular polysaccharide antigen / Streptococcus pneumoniae type 22F capsular polysaccharide antigen / Streptococcus pneumoniae type 23F capsular polysaccharide antigen / Streptococcus pneumoniae type 3 capsular polysaccharide antigen / Streptococcus pneumoniae type 33F capsular polysaccharide antigen / Streptococcus pneumoniae type 4 capsular polysaccharide antigen / Streptococcus pneumoniae type 5 capsular polysaccharide antigen / Streptococcus pneumoniae type 6B capsular polysaccharide antigen / Streptococcus pneumoniae type 7F capsular polysaccharide antigen / Streptococcus pneumoniae type 8 capsular polysaccharide antigen / Streptococcus pneumoniae type 9N capsular polysaccharide antigen / Streptococcus pneumoniae type 9V capsular polysaccharide antigen Pneumovax 23 Unknown Drug Allergy Activ e Reason For Referral No Information Medications Medication SIG (Take, Route, Frequency, Duration) Notes Start Date End Date Status Cyclobenzaprine HCl 5 MG 1 tablet Orally Three times a day Active Simvastatin 20 MG 1 tablet in the even ing Orally Once a day Active oxyBUTYnin Chloride Active Lisinopril-hydroCHLOROthiazi d e Active Tamsulosin HCl 0.4 MG 1 capsule 30 minut es after the same meal each day Orally Once a day Active Aspir-81 81 MG 1 tablet Orally Once a day Active Colyte with Flavor Packs 240 GM As directed Orally Over the specified time. for 1 day(s) 07/29/2014 Active Problems Problem Type SNOMED Code ICD Code Onset Dates Problem Status W/U Status Risk Notes Problem 355917561 Colon cancer screening (V76.51) Active confirmed Problem 088170963 Aspirin long-term use (V58.66) Active confirmed Plan Of Treatment Future Test Test Name Order Date COLONOSCOPY 07/29/2014 Insurance Providers Payer Name Payer Address Payer Phone Subscriber Number Group Number Insured Name Patient Relationship to Insured Coverage Start Date Coverage End Date [facility] [address] [place] [phone] [id number] CORNELIA JUAREZ Self - patient is the insured Medicare of [place] [address] [place] [address] [id number] CORNELIA JUAREZ Self - patient is the insured Medical (General) History Medical History History ICD Code prostate problems hypertension elevated cholesterol Surgical History Surgery Date(Month/Year) back surgery knee surgery
== END 2025-04-12 09:53 | disposition home or self-care (01) ==
LOC: HO.ACS 09:20
PROVIDERS: PCP Internal Medicine; Visit Provider Internal Medicine Medical Oncology
DX: Z79.01 Long term (current) use of anticoagulants (principal)

== ENCOUNTER → 2025-04-12 09:20 | Outpatient (BNVA) | payer MEDICARE, SELFPAY | PROVIDERS: PCP Internal Medicine; Visit Provider Internal Medicine Medical Oncology | DX: I48.0 Paroxysmal atrial fibrillation (principal); Z51.81 Encounter for therapeutic drug level monitoring; Z79.01 Long term (current) use of anticoagulants | CPT/HCPCS: 85610; 99211 ==

== ENCOUNTER 2025-04-15 09:24 | Outpatient (AMB) | payer MEDICARE, SELFPAY ==
[2025-04-15 09:31] LABS: Prothrombin Time Whole Bld POC 50.7 sec (11.1-13.5); ~PT, ~INR - Anti Coag Clinic 4.2 (0.9-1.1)
--- OUTSIDE RECORDS SUMMARY | 2025-04-15 09:50 | XMS_ITS | Patient Health Record ---
Author Organization [facility] Address [address] [place] [phone] Care Team Providers Care Systematic Theology Professor Name Role Phone Jake Pepper MD Primary Care Provider Luther Rajput Jr [facility] [phone] Allergies Allergen (clinical drug ingredient) Drug/Non Drug [...] Problem Status W/U Status Risk Notes Problem 317956577 Colon cancer screening (V76.51) Active confirmed Problem 289184848 Aspirin long-term use (V58.66) Active confirmed Plan Of Treatment Future Test Test Name Order Date COLONOSCOPY 07/29/2014 Insurance Providers Payer Name Payer Address Payer Phone Subscriber Number Group Number Insured Name Patient Relationship to Insured Coverage Start Date Coverage End Date [facility] [address] [place] [id number] CORNELIA JUAREZ Self - patient is the [place] of [place] [address] [place] [id number] CORNELIA JUAREZ Self - patient is the insured Medical (General) History Medical History History ICD Code prostate problems hypertension elevated cholesterol Surgical History Surgery Date(Month/Year) back surgery knee surgery
--- OUTSIDE RECORDS SUMMARY | 2025-04-15 09:50 | XMS_ITS | Encounter Summary ---
Author Organization [facility] Address [address] [facility] [place] [address] Care Team Providers Care Industrial Electrical Technician Name Role Phone Jake Pepper MD Primary Care Provider Darleen vailable Encounter Details Date Type Department Care Team Description 03/27/2018 Release of Information Medical Records [address] [place] [id number] Abstract, Provider Social History Tobacco Use Types [...] on filedocumented in this encounter Care Teams Industrial Electrical Technician Relationship Specialty Start Date End Date Jake Pepper MD PCP - General Internal Medicine 02/24/18 documented as of this encounter
--- OUTSIDE RECORDS SUMMARY | 2025-04-15 09:50 | XMS_ITS | Patient Health Record ---
Author Organization Jake Pepper MD Address [address] [place], [place] [id number] Care Team Providers Care Internet Architect Name Role Phone Jake Pepper Primary Care Provider Allergies Allergen (clinical drug ingredient) Drug/Non Drug Allergy documented on EMR Reaction Allergy Type Onset Date Status Lamisil rash Drug Allergy Active Vaccine product containing Streptococcus pneumoniae antigen (medicinal product) Pneumovax (uncoded) local reaction redness Allergy Active Results Component Value Reference Range Notes Liver Panel Reviewed date:08/20/2024 03:17:01 PM Interpretation: Performing Lab:[facility], [address] [place] [phone] Notes/Report: Bilirubin Total 0.7 0.0-1.0 mg/dL Bilirubin Direct 0.3 0.0-0.5 mg/dL Aspartate Amino Transferase 42 5-37 U/L Alanine Aminotransferase 24 0-40 U/L Total Protein 7.3 6.5-8.0 g/dL Albumin Level 3.9 3.5-5.0 g/dL Alkaline Phosphatase 94 39-117 U/L Lipid Panel with Reflex Reviewed date:08/20/2024 03:16:31 PM Interpretation: Performing Lab:[facility], [address] [place] [phone] Notes/Report: Triglycerides 135 <150 mg/dL Desirable Triglyceride: [...] ff Reviewed date:02/21/2025 05:38:19 PM Interpretation: Performing Lab:[facility], [address] [place] [phone] Notes/Report: White Blood Count 10.0 4.8-10.8 X10*3/uL [...] 0.0-0.2 /100WBC Neutrophils Absolute Auto 5.3 2.0-8.3 x10*3/uL Imm Gran Abs Auto 0.03 0.00-0.03 X10*3/uL Lymphocytes Absolute Auto 3.3 1.2-4.9 X10*3/uL Monocytes Absolute Auto 1.0 0.1-1.2 X10*3/uL Eosinophils Absolute Auto 0.3 0.0-0.4 X10*3/uL Basophils Absolute Auto 0.1 0.0-0.2 X10*3/uL NRBC Abs Auto 0.000 0.0-0.012 X10*3/uL Comprehensive [place]. Panel Fa st Reviewed date:02/21/2025 05:34:56 PM Interpretation: Performing Lab:[facility], [address] [place] [phone] Notes/Report: Sodium 143 135-145 mmol/L Potassium 3.8 [...] PROFILE Reviewed date:02/19/2025 12:44:54 PM Interpretation: Performing Lab:[address] [phone] Notes/Report: Iron 63 45-160 mcg/dL Total Iron Binding Capacity 271 228-428 mcg/dL Percent Iron Saturation 23 15-50 % Unsaturated Iron Binding 208 Lipid Panel Reviewed date:02/19/2025 12:44:14 PM Interpretation: Performing Lab:[facility], [address] [place] [phone] Notes/Report: Triglycerides 129 <150 mg/dL Desirable Triglyceride: [...] (Free>4and<10) Reviewed date:02/19/2025 12:45:04 PM Interpretation: Performing Lab:[facility], [address] [place] [phone] Notes/Report: PSA,Total (Free>4and<10) < 0.10 0.00-4.00 ng/mL [...] t Reviewed date:02/21/2025 05:39:18 PM Interpretation: Performing Lab:[facility], [address] [place] [phone] Notes/Report: Urine, Clean Catch Color Urine Dark Yellow Appearance Urine Clear PH 6.5 5.0-9.0 Glucose Urine UA Negative Negative mg/dL Urine Blood Negative Negative Specific Parkman - Urine 1.025 1.005-1.025 Urine Protein 30 (1+) Neg-Trace mg/dL Urine Ketones Trace Negative mg/dL Nitrite Urine Negative Negative Leukocyte Esterase Urine Negative Negative RBC Urine 0-2 0-2 /HPF WBC Urine 0-5 0-5 /HPF Squamous Epithelial Cell Urine 0-2 0-2 /HPF Bacteria Urine None Seen None Seen Hyaline Casts Urine 0-2 0-2 /LPF INR WHOLE BLOOD POC Reviewed date:04/16/2024 12:35:19 PM Interpretation: Performing Lab:[facility], [address] [place] [phone] Notes/Report: PT, INR - [facility] 2.5 0.9-1.1 METER #: [id number] INTERNATIONAL NORMALIZED RATIO (INR) REFERENCE RANGES Reference [...] OC Reviewed date:04/16/2024 12:35:11 PM Interpretation: Performing Lab:[facility], [address] [place] [phone] Notes/Report: Prothrombin Time Whole Bld POC 29.5 11.1-13.5 sec INR WHOLE BLOOD POC Reviewed date:05/14/2024 10:10:53 AM Interpretation: Performing Lab:[facility], [address] [place] [phone] Notes/Report: PT, INR - [facility] 3.9 0.9-1.1 METER #: [id number] INTERNATIONAL NORMALIZED RATIO (INR) REFERENCE RANGES Reference [...] OC Reviewed date:05/14/2024 10:10:44 AM Interpretation: Performing Lab:[facility], [address] [place] [phone] Notes/Report: Prothrombin Time Whole Bld POC 46.7 11.1-13.5 sec INR WHOLE BLOOD POC Reviewed date:05/28/2024 12:29:45 PM Interpretation: Performing Lab:[facility], [address] [place] [phone] Notes/Report: PT, INR - Anti Coag [facility] 2.3 0.9-1.1 METER #: [id number] INTERNATIONAL NORMALIZED RATIO (INR) REFERENCE RANGES Reference [...] OC Reviewed date:05/28/2024 12:29:33 PM Interpretation: Performing Lab:[facility], [address] [place] [phone] Notes/Report: Prothrombin Time Whole Bld POC 27.5 11.1-13.5 sec INR WHOLE BLOOD POC Reviewed date:06/25/2024 11:32:23 AM Interpretation: Performing Lab:[facility], [address] [place] [phone] Notes/Report: PT, INR - [facility] 3.2 0.9-1.1 METER #: [id number] INTERNATIONAL NORMALIZED RATIO (INR) REFERENCE RANGES Reference [...] OC Reviewed date:06/25/2024 12:15:50 PM Interpretation: Performing Lab:[facility], [address] [place] [phone] Notes/Report: Prothrombin Time Whole Bld POC 38.6 11.1-13.5 sec INR WHOLE BLOOD POC Reviewed date:07/09/2024 11:05:08 AM Interpretation: Performing Lab:[facility], [address] [place] [phone] Notes/Report: PT, INR - Anti Coag [facility] 2.3 0.9-1.1 METER #: [id number] INTERNATIONAL NORMALIZED RATIO (INR) REFERENCE RANGES Reference [...] OC Reviewed date:07/09/2024 12:21:37 PM Interpretation: Performing Lab:[facility], [address] [place] [phone] Notes/Report: Prothrombin Time Whole Bld POC 27.5 11.1-13.5 sec INR WHOLE BLOOD POC Reviewed date:07/22/2024 02:12:43 PM Interpretation: Performing Lab:[facility], [address] [place] [phone] Notes/Report: PT, INR - [facility]ag [facility] 1.8 0.9-1.1 METER #: [id number] INTERNATIONAL NORMALIZED RATIO (INR) REFERENCE RANGES Reference [...] OC Reviewed date:07/22/2024 02:18:21 PM Interpretation: Performing Lab:[facility], [address] [place] [phone] Notes/Report: Prothrombin Time Whole Bld POC 21.8 11.1-13.5 sec INR WHOLE BLOOD POC Reviewed date:08/04/2024 12:06:47 PM Interpretation: Performing Lab:[facility], [address] [place] [phone] Notes/Report: PT, INR - Anti Coag Clinic 2.2 0.9-1.1 METER #: [id number] INTERNATIONAL NORMALIZED RATIO (INR) REFERENCE RANGES Reference [...] OC Reviewed date:08/04/2024 12:04:48 PM Interpretation: Performing Lab:[facility], [address] [place] [phone] Notes/Report: Prothrombin Time Whole Bld POC 25.9 11.1-13.5 sec Hold Gold Reviewed date:08/20/2024 12:43:27 PM Interpretation: Performing Lab:[address] [phone] Notes/Report: Hold Gold See Note Specimen held untested for 24 hours; Call to request Chemistry testing. INR WHOLE BLOOD POC Reviewed date:08/25/2024 07:57:52 PM Interpretation: Performing Lab:[facility], [address] [place] [phone] Notes/Report: PT, INR - Anti Coag [facility] 2.1 0.9-1.1 METER #: [id number] INTERNATIONAL NORMALIZED RATIO (INR) REFERENCE RANGES Reference [...] OC Reviewed date:08/25/2024 07:57:59 PM Interpretation: Performing Lab:[facility], [address] [place] [phone] Notes/Report: Prothrombin Time Whole Bld POC 25.6 11.1-13.5 sec INR WHOLE BLOOD POC Reviewed date:09/15/2024 09:59:14 AM Interpretation: Performing Lab:[facility], [address] [place] [phone] Notes/Report: PT, INR - [facility] Coag [facility] 3.0 0.9-1.1 METER #: [id number] INTERNATIONAL NORMALIZED RATIO (INR) REFERENCE RANGES Reference [...] OC Reviewed date:09/15/2024 12:33:10 PM Interpretation: Performing Lab:[facility], [address] [place] [phone] Notes/Report: Prothrombin Time Whole Bld POC 35.5 11.1-13.5 sec INR WHOLE BLOOD POC Reviewed date:10/06/2024 04:22:44 PM Interpretation: Performing Lab:[facility], [address] [place] [phone] Notes/Report: PT, INR - [facility] Coag [facility] 2.0 0.9-1.1 METER #: [id number] INTERNATIONAL NORMALIZED RATIO (INR) REFERENCE RANGES Reference [...] OC Reviewed date:10/06/2024 04:22:36 PM Interpretation: Performing Lab:[facility], [address] [place] [phone] Notes/Report: Prothrombin Time Whole Bld POC 23.5 11.1-13.5 sec Prostate Specific Antigen Reviewed date:10/09/2024 11:16:46 AM Interpretation: Performing Lab:[facility], [address] [place] [phone] Notes/Report: Prostate Specific Antigen < 0.10 <0.05-4.0 ng/mL PSA methodology: Mediasmart Alinity i Chemiluminescent Microparticle Immunoassay (CMIA) INR WHOLE BLOOD POC Reviewed date:10/27/2024 11:14:11 AM Interpretation: Performing Lab:[facility], [address] [place] [phone] Notes/Report: PT, INR - [facility] 2.0 0.9-1.1 METER #: [id number] INTERNATIONAL NORMALIZED RATIO (INR) REFERENCE RANGES Reference [...] OC Reviewed date:10/27/2024 11:14:04 AM Interpretation: Performing Lab:[facility], [address] [place] [phone] Notes/Report: Prothrombin Time Whole Bld POC 23.7 11.1-13.5 sec INR WHOLE BLOOD POC Reviewed date:11/10/2024 12:18:48 PM Interpretation: Performing Lab:[facility], [address] [place] [phone] Notes/Report: PT, INR - [facility]ag [facility] 1.8 0.9-1.1 METER #: [id number] INTERNATIONAL NORMALIZED RATIO (INR) REFERENCE RANGES Reference [...] OC Reviewed date:11/10/2024 12:18:37 PM Interpretation: Performing Lab:[facility], [address] [place] [phone] Notes/Report: Prothrombin Time Whole Bld POC 21.5 11.1-13.5 sec INR WHOLE BLOOD POC Reviewed date:11/24/2024 12:04:29 PM Interpretation: Performing Lab:[facility], [address] [place] [phone] Notes/Report: PT, INR - [facility] 2.4 0.9-1.1 METER #: [id number] INTERNATIONAL NORMALIZED RATIO (INR) REFERENCE RANGES Reference [...] OC Reviewed date:11/24/2024 12:04:21 PM Interpretation: Performing Lab:[facility], [address] [place] [phone] Notes/Report: Prothrombin Time Whole Bld POC 28.2 11.1-13.5 sec INR WHOLE BLOOD POC Reviewed date:12/17/2024 12:38:14 PM Interpretation: Performing Lab:[facility], [address] [place] [phone] Notes/Report: PT, INR - Anti Coag Clinic 2.0 0.9-1.1 METER #: [id number] INTERNATIONAL NORMALIZED RATIO (INR) REFERENCE RANGES Reference [...] OC Reviewed date:12/17/2024 12:51:29 PM Interpretation: Performing Lab:[facility], [address] [place] [phone] Notes/Report: Prothrombin Time Whole Bld POC 23.9 11.1-13.5 sec INR WHOLE BLOOD POC Reviewed date:01/07/2025 10:59:51 AM Interpretation: Performing Lab:[facility], [address] [place] [phone] Notes/Report: PT, INR - Anti Coag Clinic 2.2 0.9-1.1 METER #: [id number] INTERNATIONAL NORMALIZED RATIO (INR) REFERENCE RANGES Reference [...] OC Reviewed date:01/07/2025 10:59:22 AM Interpretation: Performing Lab:[facility], [address] [place] [phone] Notes/Report: Prothrombin Time Whole Bld POC 26.4 11.1-13.5 sec INR WHOLE BLOOD POC Reviewed date:02/04/2025 02:25:43 PM Interpretation: Performing Lab:[facility] [phone] Notes/Report: PT, INR - Anti Coag Clinic 3.3 0.9-1.1 METER #: [id number] INTERNATIONAL NORMALIZED RATIO (INR) REFERENCE RANGES Reference [...] OC Reviewed date:02/04/2025 11:35:29 AM Interpretation: Performing Lab:[address] [phone] Notes/Report: Prothrombin Time Whole Bld POC 39.1 11.1-13.5 sec INR WHOLE BLOOD POC Reviewed date:03/04/2025 10:01:13 AM Interpretation: Performing Lab:[address] [phone] Notes/Report: PT, INR - Anti [facility]ag Clinic 2.6 0.9-1.1 METER #: [id number] INTERNATIONAL NORMALIZED RATIO (INR) REFERENCE RANGES Reference [...] Prothrombin Time Whole Bld P OC Reviewed date:03/04/2025 10:01:06 AM Interpretation: Performing Lab:[address] [phone] Notes/Report: Prothrombin Time Whole Bld POC 31.0 11.1-13.5 sec Complete Blood Count Auto Di ff Reviewed date:03/21/2025 07:34:37 PM Interpretation: Performing Lab:[address] [phone] Notes/Report: White Blood Count 7.1 4.8-10.8 X10*3/uL Red Blood Count 3.88 4.60-5.80 X10*6/uL Hemoglobin 12.7 14.0-18.0 g/dl Hematocrit 39.1 42.0-52.0 % Mean Corpuscular Volume 100.8 80.0-98.0 fL Mean Corpuscular Hemoglobin 32.7 27.0-33.0 pg Mean Corpuscular HGB Conc 32.5 31.0-36.0 g/dl Red Cell Distribution Width 12.9 11.0-16.0 % Platelet Count 159 160-400 X10*3/uL Mean Platelet Volume 10.2 9.4-12.4 fL Neutrophils Percent Auto 60.6 45-73 % Imm Gran Pct Auto 0.4 0.0-0.4 % Lymphocytes Percent Auto 25.2 20-40 % Monocytes Percent Auto 12.6 2-11 % Eosinophils Percent Auto 0.8 0-4 % Basophils Percent Auto 0.4 0-2 % NRBC Pct Auto 0.0 0.0-0.2 /100WBC Neutrophils Absolute Auto 4.3 2.0-8.3 x10*3/uL Imm Gran Abs Auto 0.03 0.00-0.03 X10*3/uL Lymphocytes Absolute Auto 1.8 1.2-4.9 X10*3/uL Monocytes Absolute Auto 0.9 0.1-1.2 X10*3/uL Eosinophils Absolute Auto 0.1 0.0-0.4 X10*3/uL Basophils Absolute Auto 0.0 0.0-0.2 X10*3/uL NRBC Abs Auto 0.000 0.0-0.012 X10*3/uL Prothrombin Time INR Reviewed date:03/21/2025 07:30:57 PM Interpretation: Performing Lab:[facility], [address] [place] [phone] Notes/Report: Prothrombin Time 30.9 10.9-12.4 SEC INTERNATIONAL NORM RATIO 2.7 0.9-1.1 INTERNATIONAL NORMALIZED RATIO (INR) REFERENCE RANGES Reference [...] mechanical prosthetic heart valves: 2.5 - 3.5 Urinalysis and Microscopic Reviewed date:03/21/2025 07:33:45 PM Interpretation: Performing Lab:[facility], [address] [place] [phone] Notes/Report: Color Urine Yellow Appearance Urine Clear PH 6.5 5.0-9.0 Glucose Urine UA Negative Negative mg/dL Urine Blood Negative Negative Specific [place] - Urine >= 1.030 1.005-1.025 Urine Protein 100 (2+) Neg-Trace mg/dL Urine Ketones 15 Negative mg/dL Nitrite Urine Negative Negative Leukocyte Esterase Urine Negative Negative RBC Urine 0-2 0-2 /HPF WBC Urine 0-5 0-5 /HPF Squamous Epithelial Cell Urine 3-5 0-2 /HPF Bacteria Urine None Seen None Seen Hyaline Casts Urine 11-20 0-2 /LPF Comprehensive Met. Panel Reviewed date:03/21/2025 07:33:21 PM Interpretation: Performing Lab:[facility], [address] [place] [phone] Notes/Report: Sodium 143 135-145 mmol/L Potassium 3.8 3.3-5.1 mmol/L Chloride 89 96-108 mmol/L Carbon Dioxide 43 22-29 mmol/L Critical value for test(s): BIC Results called to and read back by:ANWDarrell Person calling: HEIDY Date: 03/20/2025 Time:16:45 Anion Gap 15 12-20 Blood Urea Nitrogen 21 9-16 mg/dL Creatinine 1.37 0.5-1.4 mg/dL Creatinine Clr Calc Pharmacy 38.1 eGFR (calculated from the MDRD study equation) and eCrCl (calculated from the Cockcroft-Gault equation) are based on different parameters and may not yield comparable results. If eCrCl result is absurd, please check patient's height/weight. Estimated Glomerular Filt Rate 50 Chronic Kidney Disease: Estimated GFR < 60 mL/min/1.73m2 Severe Kidney Disease: Estimated GFR < 15 mL/min/1.73m2 Glucose Random 109 60-115 mg/dL Calcium 9.3 8.4-10.2 mg/dL Bilirubin Total 0.7 0.0-1.0 mg/dL Aspartate Amino Transferase 30 5-37 U/L Alanine Aminotransferase 17 0-40 U/L Total Protein 7.3 6.5-8.0 g/dL Albumin Level 4.2 3.5-5.0 g/dL Alkaline Phosphatase 96 39-117 U/L Lactic Acid Reviewed date:03/21/2025 07:30:17 PM Interpretation: Performing Lab:[address] [phone] Notes/Report: Lactic Acid 0.9 0.5-2.0 mmol/L Magnesium Reviewed date:03/21/2025 07:31:06 PM Interpretation: Performing Lab:[address] [phone] Notes/Report: Magnesium 1.9 1.6-2.6 mg/dL Troponin-I High Sensitivity Reviewed date:03/21/2025 07:30:47 PM Interpretation: Performing Lab:[facility], [address] [place] [phone] Notes/Report: Troponin-I High Sensitivity 29.0 <3.5-35.0 ng/L The Robert high sensitivity Troponin-I results should be used in conjunction with other diagnostic information such as ECG, clinical observations and information, and patient symptoms to aid in the diagnosis of HI. B Type Natriuretic Peptide Reviewed date:03/21/2025 07:31:15 PM Interpretation: Performing Lab:[facility], [address] [place] [phone] Notes/Report: B Type Natriuretic Peptide 214 <100 pg/mL Gram stain Reviewed date:03/23/2025 10:18:58 AM Interpretation: Performing Lab:[facility], [address] [place] [phone] Notes/Report: Gram stain Gram stain results: Gram stain No polys Gram stain 2+ epithelial cells Gram stain 3+ Gram-positive cocci SARS-CoV2/FLU/RSV Reviewed date:03/21/2025 07:30:40 PM Interpretation: Performing Lab:[address] [phone] Notes/Report: Influenza A PCR NEGATIVE Negative Influenza B PCR NEGATIVE Negative Resp Syncy Virus RNA Qual PCR NEGATIVE Negative SARS COV2 PCR INHOUSE NEGATIVE Negative All test results must be correlated with clinical findings. Negative results do not preclude SARS-CoV2, influenza A virus, influenza B virus and/or RSV infection and should not be used as the sole basis for treatment or other patient management decisions. Negative results must be combined with clinical observations, patient history, and epidemiological information. This test has not been evaluated for monitoring treatment of infection. This test has been authorized by the FDA under an Emergency Use Authorization (EUA) for use by authorized laboratories. Testing performed on the [employer] GeneXpert utilizing real-time RT-PCR. All SARS CoV2 and positive influenza A/B results are reported to [facility]. Blood Culture (First) Reviewed date:03/26/2025 04:21:01 PM Interpretation: Performing Lab:[address] [phone] Notes/Report: Blood Culture (First) No growth after 5 days. Blood Culture (Second) Reviewed date:03/26/2025 04:21:09 PM Interpretation: Performing Lab:[facility], [address] [place] [phone] Notes/Report: Blood Culture (Second) No growth after 5 days. Venous Blood Gases - POC Reviewed date:03/21/2025 07:30:11 PM Interpretation: Performing Lab:[address] [phone] Notes/Report: VBG pH 7.54 7.32-7.43 METER #: [id number] additional_comment: Cb gloriaold VBG pCO2 56 METER #: [id number] additional_comment: Cb mcmold VBG pO2 56 METER #: [id number] additional_comment: Cb mcmold VBG Base Excess 22.3 METER #: [id number] additional_comment: Cb mcmold VBG HCO3 48 22-26 mmol/L METER #: [id number] additional_comment: Cb mcmold VBG O2 % Saturation 88.0 METER #: [id number] additional_comment: Sushant singh Routine Culture Reviewed date:03/23/2025 10:20:42 AM Interpretation: Performing Lab:[facility], [address] [place] [phone] Notes/Report: Routine Culture Report - external Routine Culture 4+ Mixed skin ricci CT soft tissue neck w con Reviewed date:03/21/2025 07:30:02 PM Interpretation: Performing Lab: Notes/Report: [address] [address] [address] Scan Report Signed Patient: Klayan Nguyen MR#: [id number] 2742 : 1940 Acct:[id number] Age/Sex: 84 / M ADM Date: 03/20/25 Loc: [facility] [place]: Zoraida Donovan MD Ordering Physician: Nilsa Card Date of Service: 03/20/25 Procedure(s): CT soft tissue neck w IV con Accession Number(s): [id number] cc: Nilsa Card; Jake Pepper MD Report Number: [id number]: Total DLP = 599.99 mGy-cm CLINICAL HISTORY: severe facial swelling neck to suborbital area CT soft tissue neck with contrast Comparison: None Findings: Left periorbital skin thickening and infiltration of the subcutaneous fat. No acute orbital pathology. There is skin thickening and infiltration of the subcutaneous fat of the lower lip left mandibular region. No rim enhancing fluid collection. The airway is widely patent. Normal pharyngeal mucosa, oral cavity and larynx. No suspicious lymph nodes. Cervical lymph nodes measure up to 1.2 cm in short axis, likely infectious/inflammatory. Normal parotid and submandibular glands. Unremarkable thyroid. No acute pathology in the carotid space. Mild retropharyngeal course of the right carotid artery. Severe calcified atherosclerotic disease. There is 50% stenosis of the left proximal internal carotid artery. No acute fracture. Status post cervical posterior decompression Paraseptal emphysema measures up to 1.1 cm. Confluent centrilobular emphysema. Trace biapical scarring. Impression: Left preseptal cellulitis. No orbital cellulitis. Facial cellulitis without abscess. Associated cervical lymphadenopathy. The airway is widely patent. 50% stenosis of the left internal carotid artery. This document has been electronically signed by: Gabriela Oakes MD on 03/20/2025 21:04:47 Dictated By: Gabriela Esteban MD Signed By: <Electronically signed by Gabriela Esteban MD in [place]> 03/20/252104 DD/ 03 TD/TT: 03/20/252103 Physical Scientist: [address] [address] [address] Scan Report Signed Patient: Miguel Nguyen MR#: [id number] [id number] : 1940 Acct:[id number] Age/Sex: 84 / M ADM Date: 03/20/25 Loc: [facility] [place]- Attending Dr: Zoraida Donovan MD Ordering Physician: Nilsa Card Date of Service: 03/20/25 Procedure(s): CT sof t tissue neck w IV con Accession Number(s): [id number] cc: Nilsa Card; Jake Pepper MD Report Number: [id number]: Total DLP = 599.99 mGy-cm CLINICAL HISTORY: severe facial swelling neck to suborbital area CT soft tissue neck with contrast Comparison: None Findings: Left periorbital ski n thickening and infiltration of the subcutaneous fat. No acute orbital pathology. There is skin thickening and infiltration of the subcutaneous fat of the lower lip left mandibular region. No rim enhancing fluid collection. The airway is widely patent. Normal pharyngeal mucosa, oral cavity and larynx. No suspicious lymph nodes. Cervical lymph nodes measure up to 1.2 cm in short axis, likely infectious/inflammatory . Normal parotid and submandibular glands. Unremarkable thyroid. No acute pathology i n the carotid space. Mild retropharyngeal course of the right carotid artery. Severe calcified atherosclerotic disease. There is 50% stenosis of t he left proximal internal carotid artery. No acute fracture. Status post cervical posterior decompression Paraseptal emphysema measures up to 1.1 cm. Confluent centrilobular emphysema. Trace biapical scarring. Impression: Left preseptal cellulitis. No orbital cellulitis. Facial cellulitis without abscess. Associated cervical lymphadenopathy. The airway is widely patent. 50% stenosis of the left internal carotid artery. This document has be en electronically signed by: Gabriela Oakes MD on 03/20/2025 21:04:47 Dictated By: Gabriela Esteban MD Signed By: <Electronically signed by Gabriela Esteban MD in [place]> 03/20/252104 DD/ 03 TD/TT: 03/20/252103 Physical Scientist: CT head/brain wo con Reviewed date:03/21/2025 07:29:22 PM Interpretation: Performing Lab: Notes/Report: [address] [address] [address] Scan Report Signed Patient: Kalyan Nguyen MR#: [id number] 2742 : 1940 Acct:[id number] Age/Sex: 84 / M ADM Date: 03/20/25 Loc: [facility] [place]- Attending Dr: Zoraida Donovan MD Ordering Physician: Nilsa Card Date of Service: 03/20/25 Procedure(s): CT head/brain wo IV con Accession Number(s): [id number] cc: Nilsa CardSTALIN; Jake Pepper MD Report Number: [id number]: Total DLP = 914.64 mGy-cm CLINICAL HISTORY: [place] CT head without contrast Comparison: None Findings: No acute hemorrhage. No extra-axial fluid collection. No hydrocephalus, mass-effect or herniation. -white differentiation is maintained. There is patchy hypoattenuation of the periventricular and deep white matter, which is most likely the sequela of severe chronic small vessel ischemic disease. No acute orbital pathology. Left periorbital soft tissue swelling. No fracture. The visualized paranasal sinuses are predominantly clear. The mastoid air cells are clear. Impression: No acute intracranial findings. This document has been electronically signed by: Gabriela Oakes MD on 03/20/2025 21:05:30 Dictated By: Gabriela Esteban MD Signed By: <Electronically signed by Gabriela Esteban MD in [place]> 03/20/252105 DD/ 04 TD/TT: 03/20/252104 Physical Scientist: [address] [address] [address] Scan Report Signed Patient: Miguel Nguyen MR#: [id number] : 1940 Acct:[id number] Age/Sex: 84 / M ADM Date: 03/20/25 Loc: [place] [address]: Zoraida Donovan MD Ordering Physician: Nilsa Card [facility] Date of Service: 03/20/25 Procedure(s): CT head/brain wo IV con Accession Number(s): [id number] [facility] Jake Pepper MD Report Number: [id number]: Total DLP = 914.64 mGy-cm CLINICAL HISTORY: [facility] CT head without contrast Comparison: None Findings: No acute hemorrhage. No extra-axial fluid collection. No hydrocephalus, mass-effect or herniation. -white differentiation is maintained. There is patchy hypoattenuation of the periventricular and deep white matter, which is most likely the sequela of severe chronic small vessel ischemic disease. No acute orbital pathology. Left periorbital soft tissue swelling. No fracture. The visualized paranasal sinuses are predominantly clear. The mastoid air cells ar e clear. Impression: No acute intracrania l findings. This document has be en electronically signed by: Gabriela Oakes MD on 03/20/2025 21:05:30 Dictated By: Gabriela Esteban MD Signed By: <Electronically signed by Gabriela Esteban MD in OV> 03/20/252105 DD/ 04 TD/TT: 03/20/252104 Physical Scientist: XR chest 2V Reviewed date:03/21/2025 07:32:02 PM Interpretation: Performing Lab: Notes/Report: [facility] [address] [facility] [place] [address] XRay Report Signed Patient: Kalyan Nguyen MR#: [id number] : 1940 Acct:[id number] Age/Sex: 84 / M ADM Date: 03/20/25 Loc: .ED Attending Dr: Ordering Physician: Lisette Graves NP Date of Service: 03/20/25 Procedure(s): XR chest 2V Accession Number(s): [id number] cc: Jake Pepper MD; Lisette Graves NP CLINICAL HISTORY: dyspnea 3 days, hx COPD 2 view chest x-ray Comparison: 10/18/2023 Findings: The lungs are clear. Normal size heart. No acute fracture. IMPRESSION: 1. No acute findings. This document has been electronically signed by: Nain Coleman MD on 03/20/2025 17:27:28 Dictated By: Nain Coleman MD Signed By: <Electronically signed by Nain Coleman MD in OV> 03/20/251727 DD/ 26 TD/TT: 03/20/251726 Physical Scientist: [address] [address] XRay Report Signed Patient: Miguel Nguyen MR#: [id number] : 1940 Acct:[id number] Age/Sex: 84 / M ADM Date: 03/20/25 Loc: [place].ED Attending Dr: Ordering Physician: Lisette Graves NP Date of Service: 03/20/25 Procedure(s): XR rhina st 2V Accession Number(s): [id number] cc: Jake Pepper MD; Lisette Graves NP CLINICAL HISTORY: dyspnea 3 days, hx COPD 2 view chest x-ray Comparison: 10/18/2023 Findings: The lungs are clear. Normal size heart. No acute fracture. IMPRESSION: 1. No acute findings. This document has be en electronically signed by: Nain Coleman MD on 03/20/2025 17:27:28 Dictated By: Nain Coleman MD Signed By: <Electronically signed by Nain Coleman MD in OV> 03/20/251727 DD/ 26 TD/TT: 03/20/251726 Physical Scientist: Troponin-I High Sensitivity Reviewed date:03/21/2025 07:31:34 PM Interpretation: Performing Lab:[facility], [address] [place] [phone] Notes/Report: Troponin-I High Sensitivity 24.4 <3.5-35.0 ng/L The Robert high sensitivity Troponin-I results should be used in conjunction with other diagnostic information such as ECG, clinical observations and information, and patient symptoms to aid in the diagnosis of HI. Complete Blood Count Auto Di ff Reviewed date:03/21/2025 07:34:16 PM Interpretation: Performing Lab:[facility], [address] [place] [address], [place] [address] Notes/Report: White Blood Count 6.6 4.8-10.8 X10*3/uL Red Blood Count 3.84 4.60-5.80 X10*6/uL Hemoglobin 12.6 14.0-18.0 g/dl Hematocrit 39.4 42.0-52.0 % Mean Corpuscular Volume 102.6 80.0-98.0 fL Mean Corpuscular Hemoglobin 32.8 27.0-33.0 pg Mean Corpuscular HGB Conc 32.0 31.0-36.0 g/dl Red Cell Distribution Width 12.9 11.0-16.0 % Platelet Count 152 160-400 X10*3/uL Mean Platelet Volume 10.7 9.4-12.4 fL Neutrophils Percent Auto 58.7 45-73 % Imm Gran Pct Auto 0.3 0.0-0.4 % Lymphocytes Percent Auto 25.3 20-40 % Monocytes Percent Auto 13.3 2-11 % Eosinophils Percent Auto 1.8 0-4 % Basophils Percent Auto 0.6 0-2 % NRBC Pct Auto 0.0 0.0-0.2 /100WBC Neutrophils Absolute Auto 3.8 2.0-8.3 x10*3/uL Imm Gran Abs Auto 0.02 0.00-0.03 X10*3/uL Lymphocytes Absolute Auto 1.7 1.2-4.9 X10*3/uL Monocytes Absolute Auto 0.9 0.1-1.2 X10*3/uL Eosinophils Absolute Auto 0.1 0.0-0.4 X10*3/uL Basophils Absolute Auto 0.0 0.0-0.2 X10*3/uL NRBC Abs Auto 0.000 0.0-0.012 X10*3/uL Prothrombin Time INR Reviewed date:03/21/2025 07:32:30 PM Interpretation: Performing Lab:[facility], [address] [place] [phone] Notes/Report: Prothrombin Time 41.4 10.9-12.4 SEC INTERNATIONAL NORM RATIO 3.6 0.9-1.1 INTERNATIONAL NORMALIZED RATIO (INR) REFERENCE RANGES Reference [...] mechanical prosthetic heart valves: 2.5 - 3.5 Comprehensive Met. Panel Reviewed date:03/21/2025 07:32:58 PM Interpretation: Performing Lab:[facility], [address] [place] [phone] Notes/Report: Sodium 142 135-145 mmol/L Potassium 3.4 3.3-5.1 mmol/L Chloride 92 96-108 mmol/L Carbon Dioxide 40 22-29 mmol/L Critical value for test(s): BIC Results called to and read back by: MAT Person calling: VYASRID Date: [id number] Time:030 Anion Gap 13 12-20 Blood Urea Nitrogen 20 9-16 mg/dL Creatinine 1.19 0.5-1.4 mg/dL Creatinine Clr Calc Pharmacy 43.9 eGFR (calculated from the MDRD study equation) and eCrCl (calculated from the Cockcroft-Gault equation) are based on different parameters and may not yield comparable results. If eCrCl result is absurd, please check patient's height/weight. Estimated Glomerular Filt Rate 58 Chronic Kidney Disease: Estimated GFR < 60 mL/min/1.73m2 Severe Kidney Disease: Estimated GFR < 15 mL/min/1.73m2 Glucose Random 92 60-115 mg/dL Calcium 8.9 8.4-10.2 mg/dL Bilirubin Total 0.6 0.0-1.0 mg/dL Aspartate Amino Transferase 30 5-37 U/L Alanine Aminotransferase 13 0-40 U/L Total Protein 6.8 6.5-8.0 g/dL Albumin Level 3.8 3.5-5.0 g/dL Alkaline Phosphatase 87 39-117 U/L TSH reflex Free T4 Reviewed date:03/21/2025 07:31:25 PM Interpretation: Performing Lab:[facility], [address] [place] [phone] Notes/Report: TSH reflex Free T4 1.34 0.32-4.0 uIU/mL Respiratory Panel Reviewed date:03/21/2025 07:28:57 PM Interpretation: Performing Lab:[facility], [address] [place] [phone] Notes/Report: Adenovirus PCR Not Detected Not Detect. Bordetella pertussis PCR Not Detected Not Detect. Interpret results with caution. If B. pertussis is specifically suspected, additional testing using an alternate method is recommended. Bordetella parapertussis PCR Not Detected Not Detect. Chlamydia pneumoniae PCR Not Detected Not Detect. Coronavirus 229E PCR Not Detected Not Detect. Coronavirus HKU1 PCR Not Detected Not Detect. Coronavirus NL63 PCR Not Detected Not Detect. Coronavirus OC43 PCR Not Detected Not Detect. SARS-CoV-2 PCR Not Detected Not Detect. SARS-CoV-2 not detected by real-time RT-PCR. Note: If clinical suspicion for Sars-CoV-2 is high, continue to maintain precautions and consider repeat testing. Test results should be interpreted in the context of clinical findings and other laboratory data. Rare polymorphisms exist that could lead to false-negative or false-positive results. If results do not match the clinical findings, additional testing should be considered. Results reported to [facility]. This test has been authorized by the FDA under the Emergency Use Authorization (EUA) for use by authorized laboratories. Influenza A PCR Not Detected Not Detect. Influenza A H1 PCR Not Detected Not Detect. Influenza A H1-2009 PCR Not Detected Not Detect. Influenza A H3 PCR Not Detected Not Detect. Influenza B PCR Not Detected Not Detect. Human metapneumovirus PCR Not Detected Not Detect. Rhino/Enterovirus PCR Not Detected Not Detect. Mycoplasma pneumoniae PCR Not Detected Not Detect. Parainfluenza 1 PCR Not Detected Not Detect. Parainfluenza 2 PCR Not Detected Not Detect. Parainfluenza 3 PCR Not Detected Not Detect. Parainfluenza 4 PCR Not Detected Not Detect. RSV PCR Not Detected Not Detect. Resp Panel NA Note See Note All results must be correlated with clinical findings. Negative results should not be used as the sole basis for diagnosis, treatment, or other management decisions. A negative result does not exclude the possibility of viral or bacterial infection. Negative results may occur from the presence of sequence variants in the region targeted by the assay, the presence of inhibitors, an infection caused by an organism not detected by the panel, or lower respiratory tract infections that are not detected by a nasopharyngeal swab specimen. Test results may also be affected by concurrent antiviral/antibacteri al therapy or levels of organism in the specimen that are below the limit of detection for this test. This assay is performed by Multiplexed PCR, utilizing the Provade Array. Prothrombin Time INR Reviewed date:03/22/2025 11:40:38 AM Interpretation: Performing Lab:[address] [phone] Notes/Report: Prothrombin Time 55.7 10.9-12.4 SEC INTERNATIONAL NORM RATIO 4.8 0.9-1.1 INTERNATIONAL NORMALIZED RATIO (INR) REFERENCE RANGES Reference [...] mechanical prosthetic heart valves: 2.5 - 3.5 Basic Metabolic Panel Reviewed date:03/22/2025 12:35:51 PM Interpretation: Performing Lab:[address] [phone] Notes/Report: Sodium 138 135-145 mmol/L Potassium 4.1 3.3-5.1 mmol/L Chloride 94 96-108 mmol/L Carbon Dioxide 33 22-29 mmol/L Anion Gap 15 12-20 Blood Urea Nitrogen 21 9-16 mg/dL Creatinine 1.10 0.5-1.4 mg/dL Creatinine Clr Calc Pharmacy 47.5 eGFR (calculated from the MDRD study equation) and eCrCl (calculated from the Cockcroft-Gault equation) are based on different parameters and may not yield comparable results. If eCrCl result is absurd, please check patient's height/weight. Estimated Glomerular Filt Rate > 60 Chronic Kidney Disease: Estimated GFR < 60 mL/min/1.73m2 Severe Kidney Disease: Estimated GFR < 15 mL/min/1.73m2 Glucose Random 83 60-115 mg/dL Calcium 8.7 8.4-10.2 mg/dL Vancomycin Random Reviewed date:03/22/2025 04:33:37 PM Interpretation: Performing Lab:[facility], [address] [place] [phone] Notes/Report: Vancomycin Random 13.0 15-20 mcg/mL Prothrombin Time INR Reviewed date:03/23/2025 10:14:22 AM Interpretation: Performing Lab:[facility], [address] [place] [phone] Notes/Report: Prothrombin Time 49.6 10.9-12.4 SEC INTERNATIONAL NORM RATIO 4.3 0.9-1.1 INTERNATIONAL NORMALIZED RATIO (INR) REFERENCE RANGES Reference [...] mechanical prosthetic heart valves: 2.5 - 3.5 Creatinine Reviewed date:03/23/2025 10:14:33 AM Interpretation: Performing Lab:[facility], [address] [place] [phone] Notes/Report: Creatinine 0.99 0.5-1.4 mg/dL Creatinine Clr Calc Pharmacy 52.8 eGFR (calculated from the MDRD study equation) and eCrCl (calculated from the Cockcroft-Gault equation) are based on different parameters and may not yield comparable results. If eCrCl result is absurd, please check patient's height/weight. Estimated Glomerular Filt Rate > 60 Chronic Kidney Disease: Estimated GFR < 60 mL/min/1.73m2 Severe Kidney Disease: Estimated GFR < 15 mL/min/1.73m2 INR WHOLE BLOOD POC Reviewed date:04/01/2025 02:15:11 PM Interpretation: Performing Lab:[address] [phone] Notes/Report: PT, INR - [facility] 5.4 0.9-1.1 METER #: [id number] Asymptomatic Cleaned Meter Doctor Notified INTERNATIONAL NORMALIZED RATIO (INR) REFERENCE RANGES Reference [...] Prothrombin Time Whole Bld P OC Reviewed date:04/01/2025 02:14:25 PM Interpretation: Performing Lab:[facility], [address] [place] [phone] Notes/Report: Prothrombin Time Whole Bld POC 65.0 11.1-13.5 sec INR WHOLE BLOOD POC Reviewed date:04/05/2025 01:00:12 PM Interpretation: Performing Lab:[facility], [address] [place] [phone] Notes/Report: PT, INR - [facility] 4.7 0.9-1.1 METER #: [id number] INTERNATIONAL NORMALIZED RATIO (INR) REFERENCE RANGES Reference [...] Prothrombin Time Whole Bld P OC Reviewed date:04/05/2025 01:00:04 PM Interpretation: Performing Lab:[facility], [address] [place] [phone] Notes/Report: Prothrombin Time Whole Bld POC 55.9 11.1-13.5 sec INR WHOLE BLOOD POC Reviewed date:04/12/2025 12:38:27 PM Interpretation: Performing Lab:[facility], [address] [place] [phone] Notes/Report: PT, INR - [facility] 4.1 0.9-1.1 METER #: [id number] INTERNATIONAL NORMALIZED RATIO (INR) REFERENCE RANGES Reference [...] Prothrombin Time Whole Bld P OC Reviewed date:04/12/2025 12:38:37 PM Interpretation: Performing Lab:[facility], [address] [place] [phone] Notes/Report: Prothrombin Time Whole Bld POC 49.7 11.1-13.5 sec INR WHOLE BLOOD POC (Not yet reviewed by provider) Interpretation: Performing Lab:[facility], [address] [place] [phone] Notes/Report: PT, INR - [facility] 4.2 0.9-1.1 METER #: [id number] INTERNATIONAL NORMALIZED RATIO (INR) REFERENCE RANGES Reference [...] 3.5 Prothrombin Time Whole Bld P OC (Not yet reviewed by provider) Interpretation: Performing Lab:[facility], [address] [place] [phone] Notes/Report: Prothrombin Time Whole Bld POC 50.7 11.1-13.5 sec Reason For Referral Reason please verito nguyen for for senior living and any other services he made need Diagnosis 1 Atrial fibrillation, unspecified type (I48.91) Diagnosis 2 COPD without exacerb ation (J44.9) Diagnosis 3 Bilateral leg weakne ss (R29.898) Referral Organization Jake Pepper MD Referring Provider First Name Jake Referring Provider Last Name Evgeny Referring Provider Speciality Internal M edicine Referred Provider [facility] Referred Provider Specialty Unknown General Notes OmegaMinerva schmidt 0 04/12/2025 11:55:29 AM > referral info faxed, Minerva Duff 04/12/2025 01:22:33 PM >this referral will not be used due to they do not take his insurance. Spoke with [facility] Tiana, she will be working on getting him services. Referral Priority Routine Medications Medication SIG (Take, Route, Frequency, Duration) Notes Start Date End Date Status Warfarin Sodium 3 MG TAKE 2 TO 2 AND 1/2 TABLETS BY MOUTH DAILY for 36 Active Bicalutamide 50 MG 1 tablet Orally Once a day for 30 day(s) Not-Taking oxyBUTYnin Chloride 5 MG TAKE 1 TABLET B Y MOUTH DAILY for 90 Not-Taking Wixela Inhub 250-50 MCG/DOSE 1 puff Inhalation Twice a day Not-Taking Nystatin-Triamcinolone 438957-4.1 UNIT/GM 1 application Externally Twice a day for 10 days 03/14/2020 Not-Taking Famotidine 40 MG TK 1 T PO QD HS FOR 14 DAYS Oral for 14 Not-Taking Cyclobenzaprine HCl 5 MG 1 tablet Orally Three times a day for 10 days Not-Taking Ventolin HFA 108 (90 Base) MCG/ACT 2 puffs as needed Inhalation every 4 hrs for 30 days 01/26/2013 Not-Taking Zolpidem Tartrate 5 MG TAKE 1 TABLET BY MOUTH DAILY AT BEDTIME Orally Once a day for 30 days 03/09/2025 Active Ocuflox 0.3 % 1 drop into affected eye Ophthalmic Four times a day for 7 days 05/29/2022 Not-Takin g Diflucan 150 MG 1 tablet Orally for 10 days 03/18/2025 Not-Taking Gabapentin 300 MG 1 capsule Orally twi ce a day for 30 days 04/05/2025 Active Nystatin 514038 UNIT/GM 1 application Externally Twice a day for 10 days 03/19/2025 Active valACYclovir HCl 1 GM 1 tablet Orally On ce a day Active Ipratropium-Albuterol 0.5-2.5 (3) MG/3ML 3 ml as needed Inhalation every 6 hrs 10/30/2021 Active Doxycycline Monohydrate 100 MG 1 capsule Orally Once a day Active Carvedilol 3.125 MG 1 tablet with food Orally Twice a day Active Vitamin B12 1000 MCG 1 tablet Orally Onc e a day for 30 day(s) Active Albuterol Sulfate (sensor) 108 (90 Base) MCG/ACT 1 puff as needed Inhalation every 4 hrs Active Nystatin 750815 UNIT/GM 1 application Externally Twice a day for 30 days 05/29/2022 Active Furosemide 40 MG TAKE 1 TABLET BY NIGEL TH EVERY DAY Active Tamsulosin HCl 0.4 MG TAKE 1 CAPSULE BY MOUTH TWICE DAILY Active amLODIPine Besylate 5 MG 1 tablet Orally Once a day 04/14/2021 Not-Taking Fioricet 50-300-40 MG 1 capsule as neede d Orally every 12 hrs as needed for 7 days 07/07/2024 Not-Taking Atorvastatin Calcium 40 MG 1 tablet Oral ly Once a day Active Meclizine HCl 25 MG 1 tablet as needed Orally Once a day as needed for 30 days Not-Taking Immunizations Vaccine Route Administration Date [...] Fluarix Quadrivalent Unknown 08/05/2018 Administered At [facility] Influenza High Dose IM Intramuscular 08/03/2019 [...] Problem Status W/U Status Risk Notes Problem 11686454 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 Problem Insomnia (317330691) Insomnia (G47.00) Active confirmed Problem 6337279 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) Active confirmed Problem Cataract (503312831) Unspecified cataract (H26.9) Active confirmed Problem Conductive hearing loss, bilateral (559464814) Conductive hearing loss, 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) Active confirmed Problem 2368125 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) Active confirmed Problem 76775401 Essential hypert ension (I10) Active confirmed Problem 658591635 Prostate cancer (C61) Active confirme d Problem 3374266 Psoriasis (L40.9) Active confirmed Problem 730788325 Lung nodule (R91.1) Active confirmed Problem Low testosterone (157229070) Low testosterone (E29.1) Active confirmed Problem 7953102184685185 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 Problem 525658000 Lung nodules (R91.8) Active confirmed Problem 353279849 Cervical disc di sease (M50.90) Active confirmed Problem 690562372 Tension headache (G44.209) Active confirmed Problem 1807045 Former smoker (Z87.891) Active confirmed Problem Acute exacerbation of chronic obstructive airways disease (583728565) COPD exacerbation (J44.1) Active confirmed Problem Postherpetic neuralgia (7154254) Post herpetic neuralgia (B02.29) Active confirmed Problem 24366109 Dysthymia (F34.1) Active confirmed Problem Iron deficiency anemia (68978678) Iron deficiency anemia, unspecified iron deficiency anemia type (D50.9) Active confirmed Problem 14632782 Atrial fibrillat ion, unspecified type (I48.91) Active confirmed Problem 7085600 Urinary obstruct ion (N13.9) Active confirmed Problem Leukocytosis (036633092) Elevated WBC count (D72.829) Active confirmed Problem 47109522 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 confirmed Problem 845850995 Pure hypercholesterolemia (E78.00) Active confirmed Problem 016322677 BMI 30.0-30.9,ad ult (Z68.30) Active confirmed Problem 262528965 COPD with exacer bation (J44.1) Active confirmed Problem 630586954 Hypertensive cri sis (I16.9) Active confirmed Problem Gout (86425111) Acute gout, unspecified cause, unspecified site (M10.9) Active confirmed Problem 02183260 COPD without exacerbation (J44.9) Active confirmed Problem Gout (65276660) Acute gout of ri ght knee, unspecified cause (M10.9) Active confirmed Problem 642681649 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 Vital Signs Blood pressure diastolic 60 mm Hg 04/05/2025 jon ght is down 2 pounds since 03-29-25 Height 65 in 04/05/2025 weight is down 2 pounds since 03-29-25 Blood pressure systolic 104 mm Hg 04/05/2025 weig ht is down 2 pounds since 03-29-25 Weight 167 lbs 04/05/2025 weight is down 2 pounds since 03-29-25 BMI 27.79 kg/m2 04/05/2025 weight is down 2 pounds since 03-29-25 Encounters Encounter Location Date Provider Diagnosis Jake Pepper MD [address] [place] [address] [id number] 08/20/2024 Jake Pepper Pure hypercholestero lemia E78.00 Jake Pepper MD [address] [place] [address] [id number] 02/19/2025 Jake Pepper Blood tests for rout ine general physical examination Z00.00 ; Essential hypertension I10 ; Pure hypercholesterolemia E78.00 and Iron deficiency anemia, unspecified iron deficiency anemia type D50.9 Jake Pepper MD [address] [place] [address] [id number] 07/07/2024 Jake Pepper Tension headache G44 .209 Jake Pepper MD [address] [place] [address] [id number] 08/27/2024 Jake Pepper Essential hypertensi on I10 ; Pure hypercholesterolemia E78.00 ; Atrial fibrillation, unspecified type I48.91 and COPD without exacerbation J44.9 Jake Pepper MD [address] [place] [address] [id number] 01/22/2025 Jake Pepper Panlobular emphysema J43.1 ; Atrial fibrillation, unspecified type I48.91 and Unspecified cataract H26.9 Jake Pepper MD [address] [place] [address] [id number] 02/26/2025 Jake Pepper Essential hypertensi on I10 ; Annual physical exam Z00.00 ; Panlobular emphysema J43.1 ; Pure hypercholesterolemia E78.00 ; Dysthymia F34.1 ; Iron deficiency anemia, unspecified iron deficiency anemia type D50.9 and Depression screening Z13.31 Jake Pepper MD [address] [place] [address] [id number] 03/18/2025 Jake Pepper Thrush B37.0 Jake Pepper MD [address] [place] [address] [id number] 03/29/2025 Jake Pepper Essential hypertensi on I10 ; Panlobular emphysema J43.1 ; Shingles B02.9 and Thrush B37.0 Jake Pepper MD [address] [place] [address] [id number] 04/05/2025 Jake Pepper Post herpetic neural dung B02.29 ; Skin tear of right forearm without complication, initial encounter S51.801A ; Essential hypertension I10 and Atrial fibrillation, unspecified type I48.91 Jake Pepper MD [address] [place] [address] [id number] 12/21/2024 Jake Pepper MD [address] [place] [address] [id number] 02/19/2025 Jake Pepper MD [address] [place] [address] [id number] 03/19/2025 Jake Pepper MD [address] [place] [address] [id number] 03/26/2025 Jake Pepper MD [address] [place] [address] [id number] 04/01/2025 Jake Pepper MD [address] [place] [address] [id number] 04/13/2025 Jake Pepper MD [address] [place] [address] [id number] 06/07/2024 Jake Pepper Insomnia G47.00 Jake Pepper MD [address] [place] [address] [id number] 07/07/2024 Jake Pepper Insomnia G47.00 Jake Pepper MD [address] [place] [address] [id number] 08/06/2024 Jake Pepper Insomnia G47.00 Jake Pepper MD [address] [place] [address] [id number] 09/02/2024 Jake Pepper Insomnia G47.00 Jake Pepper MD [address] [place] [address] [id number] 10/05/2024 Jake Pepper Insomnia G47.00 Jake Pepper MD [address] [place] [address] [id number] 11/08/2024 Jakebernabe Oliveiraer Insomnia G47.00 Jake Pepper MD [address] [place] [address] [id number] 12/07/2024 Jake Bombardier Insomnia G47.00 Jake Pepper MD [address] [place] [address] [id number] 01/06/2025 Jake Bombardier Insomnia G47.00 Jake Pepper MD [address] [place] [address] [id number] 02/05/2025 Jake Bombardier Insomnia G47.00 Jake Pepper MD [address] [place] [address] [id number] 02/10/2025 Jake Pepper MD [address] [place] [address] [id number] 02/12/2025 Jake Pepper MD [address] [place] [address] [id number] 03/08/2025 Jake Oliveiraer Insomnia G47.00 Assessments Encounter Date Diagnosis (ICD Code) Assessment Notes Treatment Notes Treatment Clinical Notes Section Notes 08/20/2024 Pure hypercholesterolemia (ICD-10 - E78.00) 02/19/[address] ine general physical examination (ICD-10 - Z00.00) 02/19/2025 Essential hypertensi on (ICD-10 - I10) 07/07/2024 Tension headache (ICD-10 - G44.209) patient verbalized understanding of medication and directions for use 08/27/2024 Essential hypertensi on (ICD-10 - I10) doing well on meds 08/27/2024 Pure hypercholesterolemia (ICD-10 - E78.00) well controlled 01/22/2025 Panlobular emphysema (ICD-10 - J43.1) stable 01/22/2025 Atrial fibrillation, unspecified type (ICD-10 - I48.91) stable 02/26/2025 Essential hypertensi on (ICD-10 - I10) doing well, will continue current regiment 02/26/2025 Annual physical exam (ICD-10 - Z00.00) labs reviewed and discussed with patient 03/18/2025 Thrush (ICD-10 - B37.0) robert ent verbalized understandong of medication and directions for use 03/29/2025 Essential hypertensi on (ICD-10 - I10) doing well, will continue current regiment 03/29/2025 Panlobular emphysema (ICD-10 - J43.1) stable, willcontinue current regiment 04/05/2025 Post herpetic neural dung (ICD-10 - B02.29) patient/ verbalized understanding of medication and directions for use 04/05/2025 Skin tear of right forearm without complication, initial encounter (ICD-10 - S51.801A) will contiue with antibiotic cream and same dressings. looks fine 06/07/2024 Insomnia (ICD-10 - G47.00) 07/07/2024 Insomnia (ICD-10 - G47.00) 08/06/2024 Insomnia (ICD-10 - G47.00) 09/02/2024 Insomnia (ICD-10 - G47.00) 10/05/2024 Insomnia (ICD-10 - G47.00) 11/08/2024 Insomnia (ICD-10 - G47.00) 12/07/2024 Insomnia (ICD-10 - G47.00) 01/06/2025 Insomnia (ICD-10 - G47.00) 02/05/2025 Insomnia (ICD-10 - G47.00) 03/08/2025 Insomnia (ICD-10 - G47.00) 02/19/2025 Pure hypercholesterolemia (ICD-10 - E78.00) 08/27/2024 Atrial fibrillation, unspecified type (ICD-10 - I48.91) rate stable 01/22/2025 Unspecified cataract (ICD-10 - H26.9) patient has no desire to get cataracts done and feels his vision is satisfactory. will cancel his surgery/ [facility] was called with this info 02/26/2025 Panlobular emphysema (ICD-10 - J43.1) stable on meds and o2, will continue current regiment 03/29/2025 Shingles (ICD-10 - B02.9) resolving, will continue curent regiment 04/05/2025 Essential hypertensi on (ICD-10 - I10) doing well, will continue current regiment 02/19/2025 Iron deficiency anem ia, unspecified iron deficiency anemia type (ICD-10 - D50.9) 08/27/2024 COPD without exacerbation (ICD-10 - J44.9) stable 02/26/2025 Pure hypercholesterolemia (ICD-10 - E78.00) doing well on meds, will cntinue current regiment 03/29/2025 Thrush (ICD-10 - B37.0) resolved 04/05/2025 Atrial fibrillation, unspecified type (ICD-10 - I48.91) having trouble with his coumadin. going to check it today 02/26/2025 Dysthymia (ICD-10 - F34.1) seeems well not actually depressed, will continue current regiment 02/26/2025 Iron deficiency anem ia, unspecified iron deficiency anemia type (ICD-10 - D50.9) stable, will continue to monitor 02/26/2025 Depression screening (ICD-10 - Z13.31) negative screen 03/18/2025 Other hold atorvastin while on diflucan Plan Of Treatment Pending Test Test Name Order Date Electrocardiogram (EKG) 12/16/2015 Electrocardiogram (EKG) 01/30/2019 XR CHEST 2 VIEW PA & LAT 02/16/2022 XR GI SERIES 10/15/2022 Folate 02/09/2021 INR WHOLE BLOOD POC 04/15/2025 Prothrombin Time Whole Bld POC Future Test Test Name Order Date CT chest wo con 02/04/2023 Next Appt Details Provider Name:Jake schmidt, 04/20/2025 10:00:00 AM, [address] [place] [address], [address] [place] [address], [id number], Provider Name:Jake schmidt, 08/19/2025 07:00:00 AM, [address] [place] [address], Suite [facility], [place], [place], [phone], Provider Name:Jake schmidt, 08/26/2025 10:00:00 AM, [address] [place] [address], [address] [place] [address], [id number], Provider Name:Jake schmidt, 02/24/2026 07:15:00 AM, [address] [place] [address], [address], [place], [place], [phone], Provider Name:Jakebernabe schmidt, 03/03/2026 09:30:00 AM, [address] [facility], [address], [place], [place], [id number], Insurance Providers Payer Name Payer Address Payer Phone Subscriber Number Group Number Insured Name Patient Relationship to Insured Coverage Start Date Coverage End Date [employer] [facility] [address] [place] [phone] [id number] Kalyan Nguyen Self - patient is the insured MEDICARE [address] [place] [address] [id number] Kalyan Nguyen Self - patient is the insured Medical (General) History Medical History History ICD Code 03/2004 - colonoscopy (repea t 10 years); colonoscopy [address] Rajput Smoker unmotivated to quit F17.210 biculatimide and finasteraide for prosta te cancer Surgical History Surgery Date(Month/Year) Repair of Umbilical Hernia w/Mesh (Dr. Darrell guido) 04/2019
--- NOTE | 2025-04-15 09:51 | MHC.OFFVISCO ---
Intake Intake Visit Reasons: Anticoagulation Allergies pneumococcal vaccine (PNEUMOCOCCAL VACCINE) Allergy (Intermediate, Verified 04/15/25 09:25) RASH amoxicillin (From Augmentin) Allergy (Unknown, Verified 04/15/25 09:25) Swelling clavulanic acid (From Augmentin) Allergy (Unknown, Verified 04/15/25 09:25) Swelling theophylline Adverse Reaction (Intermediate, Verified 04/15/25 09:25) Loss of Appetite Medication List - Last Reconciled 04/15/25 by Gertrudis Simeon RN albuterol sulfate 90 mcg/actuation 2 puffs PO Q2H PRN carvedilol 6.25 mg PO BID cyanocobalamin (vitamin B-12) 1,000 mcg PO DAILY furosemide 60 mg (1.5 x 40 mg) PO DAILY gabapentin mg PO ipratropium-albuterol 0.5 mg-3 mg(2.5 mg base)/3 mL 3 mL inhalation TID multivitamin (One Daily Multivitamin tablet) 1 tab PO DAILY nystatin 1 appl topical BID tamsulosin 0.4 mg PO BID 90 days warfarin See Protocol 6mg X6 days and 4.5mg X1 day orally, Take medication 1-2 tabs as directed per anticoagulation clinic based on your INR zolpidem 5 mg PO BEDTIME Nursing Note INR 4.2 out of therapeutic range Medications and supplements reviewed Patient status: still experiencing nerve pain on left side of face post shingles and remains on gabpentin with minimal relief- enc to discuss with PCP Medications or supplements: no changes pt had been on antbx and antifungal in previous week - possible INR elevated due to delayed onset and decreased appetite Diet: decreased but eating Denies any signs and symptoms of bleeding or clotting or unusual bruising Bleeding, bruising, clotting discussed Nutritional guidance given: keep up weekly greens Dose: hold today's dose , 3mg tomorrow then decrease weekly dose 3mg x 2 days/ 6mg x 5 days F/U INR Date : 04/19/2025?? Patient verbalizing understanding of instructions given. Anti-Coag Initial Assessment Social Hx Patient Tobacco Use Status: Former Tobacco user alcohol intake: never Alcohol intake frequency: 0-2 drinks per day Cardiovascular Hx: HTN, [place] (non stemi) and Arrhythmias (afib) Lung Disease HX: COPD Musculoskeletal Hx: Gout Blood Disorder Hx: Hyperlipidemia GI Hx: Hemorrhoids Hx: Kidney Disease (naren) and Prostate (prostate cancer) Cancer HX: Yes Psych. 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
== END 2025-04-15 09:57 | disposition home or self-care (01) ==
LOC: HO.ACS 09:24
PROVIDERS: PCP Internal Medicine; Visit Provider Internal Medicine Medical Oncology
DX: Z79.01 Long term (current) use of anticoagulants (principal)

== ENCOUNTER → 2025-04-15 09:24 | Outpatient (BNVA) | payer MEDICARE, SELFPAY | PROVIDERS: PCP Internal Medicine; Visit Provider Internal Medicine Medical Oncology | DX: I48.0 Paroxysmal atrial fibrillation (principal); Z79.01 Long term (current) use of anticoagulants; Z51.81 Encounter for therapeutic drug level monitoring | CPT/HCPCS: 85610; 99211 ==

== ENCOUNTER 2025-04-19 13:03 | Outpatient (AMB) | payer MEDICARE, SELFPAY ==
[2025-04-19 13:13] LABS: Prothrombin Time Whole Bld POC 31.9 sec (11.1-13.5); ~PT, ~INR - Anti Coag Clinic 2.7 (0.9-1.1)
--- NOTE | 2025-04-19 13:29 | MHC.OFFVISCO ---
Intake Intake Visit Reasons: Anticoagulation Allergies pneumococcal vaccine (PNEUMOCOCCAL VACCINE) Allergy (Intermediate, Verified 04/19/25 13:08) RASH amoxicillin (From Augmentin) Allergy (Unknown, Verified 04/19/25 13:08) Swelling clavulanic acid (From Augmentin) Allergy (Unknown, Verified 04/19/25 13:08) Swelling theophylline Adverse Reaction (Intermediate, Verified 04/19/25 13:08) Loss of Appetite Medication List - Last Reconciled 04/19/25 by Imani Mckeon RN albuterol sulfate 90 mcg/actuation 2 puffs PO Q2H PRN carvedilol 6.25 mg PO BID cyanocobalamin (vitamin B-12) 1,000 mcg PO DAILY furosemide 60 mg (1.5 x 40 mg) PO DAILY gabapentin mg PO ipratropium-albuterol 0.5 mg-3 mg(2.5 mg base)/3 mL 3 mL inhalation TID multivitamin (One Daily Multivitamin tablet) 1 tab PO DAILY nystatin 1 appl topical BID tamsulosin 0.4 mg PO BID 90 days warfarin See Protocol 6mg X6 days and 4.5mg X1 day orally, Take medication 1-2 tabs as directed per anticoagulation clinic based on your INR zolpidem 5 mg PO BEDTIME Nursing Note Pt to ACS in w/c with portable O2 on and accompanied by . C/o discomfort on neck s/p shingles and discomfort of the sides of face by ears. Taking gabapentin. C/o weakness with no strength to walk or carry himself and also c/o tremors of hands. Has an appt with pcp tomorrow about this. INR: 2.7 in therapeutic range of 2-3 Medications and supplements reviewed No changes in diet, medications, or supplements Denies any signs and symptoms of bleeding or bruising or clotting Bleeding, bruising, clotting discussed Nutritional guidance given Dose: 6mg X 5 days and 3mg X 2 days (Sat & Wed) F/U INR: 04/27/25 Patient verbalizes understanding of instructions given Anti-Coag Initial Assessment Social Hx Patient Tobacco Use Status: Former Tobacco user alcohol intake: never Alcohol intake frequency: 0-2 drinks per day Cardiovascular Hx: HTN, [place] (non stemi) and Arrhythmias (afib) Lung Disease HX: COPD Musculoskeletal Hx: Gout Blood Disorder Hx: Hyperlipidemia GI Hx: Hemorrhoids Hx: Kidney Disease (naren) and Prostate (prostate cancer) Cancer HX: Yes Psych. 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
--- OUTSIDE RECORDS SUMMARY | 2025-04-19 14:03 | XMS_ITS | Patient Health Record ---
Author Organization Jake Pepper MD Address [address] [place], [place] [id number] Care Team Providers Care Assistive Technology Specialist Name Role Phone Jake Pepper Primary Care Provider [phone] Allergies Allergen (clinical drug ingredient) Drug/Non Drug Allergy documented on EMR Reaction Allergy Type Onset Date Status Lamisil rash Drug Allergy Active Vaccine product containing Streptococcus pneumoniae antigen (medicinal product) Pneumovax (uncoded) local reaction redness Allergy Active Results Component Value Reference Range Notes Liver Panel Reviewed date:08/20/2024 03:17:01 PM Interpretation: Performing Lab:[facility], [address] [place] [phone] Notes/Report: Bilirubin Total 0.7 0.0-1.0 mg/dL Bilirubin Direct 0.3 0.0-0.5 mg/dL Aspartate Amino Transferase 42 5-37 U/L Alanine Aminotransferase 24 0-40 U/L Total Protein 7.3 6.5-8.0 g/dL Albumin Level 3.9 3.5-5.0 g/dL Alkaline Phosphatase 94 39-117 U/L Lipid Panel with Reflex Reviewed date:08/20/2024 03:16:31 PM Interpretation: Performing Lab:[facility], [address] [place] [phone] Notes/Report: Triglycerides 135 <150 mg/dL Desirable Triglyceride: [...] ff Reviewed date:02/21/2025 05:38:19 PM Interpretation: Performing Lab:[facility], [address] [place] [phone] Notes/Report: White Blood Count 10.0 4.8-10.8 X10*3/uL [...] NRBC Abs Auto 0.000 0.0-0.012 X10*3/uL Comprehensive Orchard. Panel Fa st Reviewed date:02/21/2025 05:34:56 PM Interpretation: Performing Lab:[facility], [address] [place] [phone] Notes/Report: Sodium 143 135-145 mmol/L Potassium 3.8 [...] PROFILE Reviewed date:02/19/2025 12:44:54 PM Interpretation: Performing Lab:[address] [phone] Notes/Report: Iron 63 45-160 mcg/dL Total Iron Binding Capacity 271 228-428 mcg/dL Percent Iron Saturation 23 15-50 % Unsaturated Iron Binding 208 Lipid Panel Reviewed date:02/19/2025 12:44:14 PM Interpretation: Performing Lab:[facility], [address] [place] [phone] Notes/Report: Triglycerides 129 <150 mg/dL Desirable Triglyceride: [...] (Free>4and<10) Reviewed date:02/19/2025 12:45:04 PM Interpretation: Performing Lab:[facility], [address] [place] [phone] Notes/Report: PSA,Total (Free>4and<10) < 0.10 0.00-4.00 ng/mL [...] t Reviewed date:02/21/2025 05:39:18 PM Interpretation: Performing Lab:[facility], [address] [place] [phone] Notes/Report: Urine, Clean Catch Color Urine Dark Yellow Appearance Urine Clear PH 6.5 5.0-9.0 Glucose Urine UA Negative Negative mg/dL Urine Blood Negative Negative Specific Norman - Urine 1.025 1.005-1.025 Urine Protein 30 (1+) Neg-Trace mg/dL Urine Ketones Trace Negative mg/dL Nitrite Urine Negative Negative Leukocyte Esterase Urine Negative Negative RBC Urine 0-2 0-2 /HPF WBC Urine 0-5 0-5 /HPF Squamous Epithelial Cell Urine 0-2 0-2 /HPF Bacteria Urine None Seen None Seen Hyaline Casts Urine 0-2 0-2 /LPF INR WHOLE BLOOD POC Reviewed date:05/14/2024 10:10:53 AM Interpretation: Performing Lab:[facility], [address] [place] [phone] Notes/Report: PT, INR - [facility] 3.9 0.9-1.1 METER #: [id number] INTERNATIONAL NORMALIZED RATIO (INR) REFERENCE RANGES Reference [...] OC Reviewed date:05/14/2024 10:10:44 AM Interpretation: Performing Lab:[facility], [address] [place] [phone] Notes/Report: Prothrombin Time Whole Bld POC 46.7 11.1-13.5 sec INR WHOLE BLOOD POC Reviewed date:05/28/2024 12:29:45 PM Interpretation: Performing Lab:[facility], [address] [place] [phone] Notes/Report: PT, INR - [facility] 2.3 0.9-1.1 METER #: [id number] INTERNATIONAL NORMALIZED RATIO (INR) REFERENCE RANGES Reference [...] OC Reviewed date:05/28/2024 12:29:33 PM Interpretation: Performing Lab:[facility], [address] [place] [phone] Notes/Report: Prothrombin Time Whole Bld POC 27.5 11.1-13.5 sec INR WHOLE BLOOD POC Reviewed date:06/25/2024 11:32:23 AM Interpretation: Performing Lab:[facility], [address] [place] [phone] Notes/Report: PT, INR - Anti Coag [facility] 3.2 0.9-1.1 METER #: [id number] INTERNATIONAL NORMALIZED RATIO (INR) REFERENCE RANGES Reference [...] OC Reviewed date:06/25/2024 12:15:50 PM Interpretation: Performing Lab:[facility], [address] [place] [phone] Notes/Report: Prothrombin Time Whole Bld POC 38.6 11.1-13.5 sec INR WHOLE BLOOD POC Reviewed date:07/09/2024 11:05:08 AM Interpretation: Performing Lab:[facility], [address] [place] [phone] Notes/Report: PT, INR - Anti Coag [facility] 2.3 0.9-1.1 METER #: [id number] INTERNATIONAL NORMALIZED RATIO (INR) REFERENCE RANGES Reference [...] OC Reviewed date:07/09/2024 12:21:37 PM Interpretation: Performing Lab:[facility], [address] [place] [phone] Notes/Report: Prothrombin Time Whole Bld POC 27.5 11.1-13.5 sec INR WHOLE BLOOD POC Reviewed date:07/22/2024 02:12:43 PM Interpretation: Performing Lab:[facility], [address] [place] [phone] Notes/Report: PT, INR - Anti Coag Clinic 1.8 0.9-1.1 METER #: [id number] INTERNATIONAL NORMALIZED RATIO (INR) REFERENCE RANGES Reference [...] OC Reviewed date:07/22/2024 02:18:21 PM Interpretation: Performing Lab:[facility], [address] [place] [phone] Notes/Report: Prothrombin Time Whole Bld POC 21.8 11.1-13.5 sec INR WHOLE BLOOD POC Reviewed date:08/04/2024 12:06:47 PM Interpretation: Performing Lab:[facility], [address] [place] [phone] Notes/Report: PT, INR - Anti Coag Clinic 2.2 0.9-1.1 METER #: [id number] INTERNATIONAL NORMALIZED RATIO (INR) REFERENCE RANGES Reference [...] OC Reviewed date:08/04/2024 12:04:48 PM Interpretation: Performing Lab:[facility], [address] [place] [phone] Notes/Report: Prothrombin Time Whole Bld POC 25.9 11.1-13.5 sec Hold Gold Reviewed date:08/20/2024 12:43:27 PM Interpretation: Performing Lab:[facility], [address] [place] [phone] Notes/Report: Hold Gold See Note Specimen held untested for 24 hours; Call to request Chemistry testing. INR WHOLE BLOOD POC Reviewed date:08/25/2024 07:57:52 PM Interpretation: Performing Lab:[facility], [address] [place] [phone] Notes/Report: PT, INR - Anti Coag Clinic 2.1 0.9-1.1 METER #: [id number] INTERNATIONAL NORMALIZED RATIO (INR) REFERENCE RANGES Reference [...] OC Reviewed date:08/25/2024 07:57:59 PM Interpretation: Performing Lab:[facility], [address] [place] [phone] Notes/Report: Prothrombin Time Whole Bld POC 25.6 11.1-13.5 sec INR WHOLE BLOOD POC Reviewed date:09/15/2024 09:59:14 AM Interpretation: Performing Lab:[facility], [address] [place] [phone] Notes/Report: PT, INR - Anti Coag Clinic 3.0 0.9-1.1 METER #: [id number] INTERNATIONAL NORMALIZED RATIO (INR) REFERENCE RANGES Reference [...] OC Reviewed date:09/15/2024 12:33:10 PM Interpretation: Performing Lab:[facility], [address] [place] [phone] Notes/Report: Prothrombin Time Whole Bld POC 35.5 11.1-13.5 sec INR WHOLE BLOOD POC Reviewed date:10/06/2024 04:22:44 PM Interpretation: Performing Lab:[facility], [address] [place] [phone] Notes/Report: PT, INR - Anti Coag Clinic 2.0 0.9-1.1 METER #: [id number] INTERNATIONAL NORMALIZED RATIO (INR) REFERENCE RANGES Reference [...] OC Reviewed date:10/06/2024 04:22:36 PM Interpretation: Performing Lab:[address] [phone] Notes/Report: Prothrombin Time Whole Bld POC 23.5 11.1-13.5 sec Prostate Specific Antigen Reviewed date:10/09/2024 11:16:46 AM Interpretation: Performing Lab:[facility], [address] [place] [phone] Notes/Report: Prostate Specific Antigen < 0.10 <0.05-4.0 ng/mL PSA methodology: Robert Alinity i Chemiluminescent Microparticle Immunoassay (CMIA) INR WHOLE BLOOD POC Reviewed date:10/27/2024 11:14:11 AM Interpretation: Performing Lab:[facility], [address] [place] [phone] Notes/Report: PT, INR - Anti Coag Clinic 2.0 0.9-1.1 METER #: [id number] INTERNATIONAL NORMALIZED RATIO (INR) REFERENCE RANGES Reference [...] OC Reviewed date:10/27/2024 11:14:04 AM Interpretation: Performing Lab:[facility], [address] [place] [phone] Notes/Report: Prothrombin Time Whole Bld POC 23.7 11.1-13.5 sec INR WHOLE BLOOD POC Reviewed date:11/10/2024 12:18:48 PM Interpretation: Performing Lab:[facility], [address] [place] [phone] Notes/Report: PT, INR - Anti Coag Clinic 1.8 0.9-1.1 METER #: [id number] INTERNATIONAL NORMALIZED RATIO (INR) REFERENCE RANGES Reference [...] OC Reviewed date:11/10/2024 12:18:37 PM Interpretation: Performing Lab:[facility], [address] [place] [phone] Notes/Report: Prothrombin Time Whole Bld POC 21.5 11.1-13.5 sec INR WHOLE BLOOD POC Reviewed date:11/24/2024 12:04:29 PM Interpretation: Performing Lab:[facility], [address] [place] [phone] Notes/Report: PT, INR - Anti Coag Clinic 2.4 0.9-1.1 METER #: [id number] INTERNATIONAL NORMALIZED RATIO (INR) REFERENCE RANGES Reference [...] OC Reviewed date:11/24/2024 12:04:21 PM Interpretation: Performing Lab:[facility], [address] [place] [phone] Notes/Report: Prothrombin Time Whole Bld POC 28.2 11.1-13.5 sec INR WHOLE BLOOD POC Reviewed date:12/17/2024 12:38:14 PM Interpretation: Performing Lab:[facility], [address] [place] [phone] Notes/Report: PT, INR - Anti Coag Clinic 2.0 0.9-1.1 METER #: [id number] INTERNATIONAL NORMALIZED RATIO (INR) REFERENCE RANGES Reference [...] OC Reviewed date:12/17/2024 12:51:29 PM Interpretation: Performing Lab:[facility], [address] [place] [phone] Notes/Report: Prothrombin Time Whole Bld POC 23.9 11.1-13.5 sec INR WHOLE BLOOD POC Reviewed date:01/07/2025 10:59:51 AM Interpretation: Performing Lab:[facility], [address] [place] [phone] Notes/Report: PT, INR - Anti Coag Clinic 2.2 0.9-1.1 METER #: [id number] INTERNATIONAL NORMALIZED RATIO (INR) REFERENCE RANGES Reference [...] OC Reviewed date:01/07/2025 10:59:22 AM Interpretation: Performing Lab:[facility], [address] [place] [phone] Notes/Report: Prothrombin Time Whole Bld POC 26.4 11.1-13.5 sec INR WHOLE BLOOD POC Reviewed date:02/04/2025 02:25:43 PM Interpretation: Performing Lab:[facility], [address] [place] [phone] Notes/Report: PT, INR - Anti Coag Clinic 3.3 0.9-1.1 METER #: [id number] INTERNATIONAL NORMALIZED RATIO (INR) REFERENCE RANGES Reference [...] OC Reviewed date:02/04/2025 11:35:29 AM Interpretation: Performing Lab:[facility], [address] [place] [phone] Notes/Report: Prothrombin Time Whole Bld POC 39.1 11.1-13.5 sec INR WHOLE BLOOD POC Reviewed date:03/04/2025 10:01:13 AM Interpretation: Performing Lab:[facility] [phone] Notes/Report: PT, INR - Anti Coag Clinic 2.6 0.9-1.1 METER #: [id number] INTERNATIONAL NORMALIZED RATIO (INR) REFERENCE RANGES Reference [...] OC Reviewed date:03/04/2025 10:01:06 AM Interpretation: Performing Lab:[address] [phone] Notes/Report: Prothrombin Time Whole Bld POC 31.0 11.1-13.5 sec Complete Blood Count Auto Di ff Reviewed date:03/21/2025 07:34:37 PM Interpretation: Performing Lab:[address] [phone] Notes/Report: White Blood Count 7.1 4.8-10.8 X10*3/uL [...] INR Reviewed date:03/21/2025 07:30:57 PM Interpretation: Performing Lab:[address] [phone] Notes/Report: Prothrombin Time 30.9 10.9-12.4 SEC INTERNATIONAL [...] Microscopic Reviewed date:03/21/2025 07:33:45 PM Interpretation: Performing Lab:[address] [phone] Notes/Report: Color Urine Yellow Appearance Urine Clear PH 6.5 5.0-9.0 Glucose Urine UA Negative Negative mg/dL Urine Blood Negative Negative Specific Norman - Urine >= 1.030 1.005-1.025 Urine Protein 100 (2+) Neg-Trace mg/dL Urine Ketones 15 Negative mg/dL Nitrite Urine Negative Negative Leukocyte Esterase Urine Negative Negative RBC Urine 0-2 0-2 /HPF WBC Urine 0-5 0-5 /HPF Squamous Epithelial Cell Urine 3-5 0-2 /HPF Bacteria Urine None Seen None Seen Hyaline Casts Urine 11-20 0-2 /LPF Comprehensive Met. Panel Reviewed date:03/21/2025 07:33:21 PM Interpretation: Performing Lab:[address] [phone] Notes/Report: Sodium 143 135-145 mmol/L Potassium 3.8 3.3-5.1 mmol/L Chloride 89 96-108 mmol/L Carbon Dioxide 43 22-29 mmol/L Critical value for test(s): BIC Results called to and read back by:ANWM Person calling: HEIDY Date: 03/20/2025 Time:16:45 Anion [...] Acid Reviewed date:03/21/2025 07:30:17 PM Interpretation: Performing Lab:[facility], [address] [place] [phone] Notes/Report: Lactic Acid 0.9 0.5-2.0 mmol/L Magnesium Reviewed date:03/21/2025 07:31:06 PM Interpretation: Performing Lab:[address] [phone] Notes/Report: Magnesium 1.9 1.6-2.6 mg/dL Troponin-I High Sensitivity Reviewed date:03/21/2025 07:30:47 PM Interpretation: Performing Lab:[address] [place] [address] Notes/Report: Troponin-I High Sensitivity 29.0 <3.5-35.0 ng/L The Robert high sensitivity Troponin-I results should be used in conjunction with other diagnostic information such as ECG, clinical observations and information, and patient symptoms to aid in the diagnosis of AL. B Type Natriuretic Peptide Reviewed date:03/21/2025 07:31:15 PM Interpretation: Performing Lab:[address] [phone] Notes/Report: B Type Natriuretic Peptide 214 <100 pg/mL Gram stain Reviewed date:03/23/2025 10:18:58 AM Interpretation: Performing Lab:[address] [phone] Notes/Report: Gram stain Gram stain results: Gram stain No polys Gram stain 2+ epithelial cells Gram stain 3+ Gram-positive cocci SARS-CoV2/FLU/RSV Reviewed date:03/21/2025 07:30:40 PM Interpretation: Performing Lab:[facility], [address] [place] [phone] Notes/Report: Influenza A PCR NEGATIVE Negative Influenza [...] by authorized laboratories. Testing performed on the [employer] GeneXpert utilizing real-time RT-PCR. All SARS CoV2 and positive influenza A/B results are reported to [facility]. Blood Culture (First) Reviewed date:03/26/2025 04:21:01 PM Interpretation: Performing Lab:[address] [phone] Notes/Report: Blood Culture (First) No growth after 5 days. Blood Culture (Second) Reviewed date:03/26/2025 04:21:09 PM Interpretation: Performing Lab:[facility], [address] [place] [phone] Notes/Report: Blood Culture (Second) No growth after 5 days. Venous Blood Gases - POC Reviewed date:03/21/2025 07:30:11 PM Interpretation: Performing Lab:[facility], [address] [place] [phone] Notes/Report: VBG pH 7.54 7.32-7.43 METER #: [id number] additional_comment: Cb samantha VBG pCO2 56 METER #: [id number] additional_comment: Cb samantha VBG pO2 56 METER #: [id number] additional_comment: Sushant singh VBG Base Excess 22.3 METER #: [id number] additional_comment: Cb samantha VBG HCO3 48 22-26 mmol/L METER #: [id number] additional_comment: Cb samantha VBG O2 % Saturation 88.0 METER #: [id number] additional_comment: Sushant singh Routine Culture Reviewed date:03/23/2025 10:20:42 AM Interpretation: Performing Lab:[facility], [address] [place] [phone] Notes/Report: Routine Culture Report - external Routine Culture 4+ Mixed skin ricci CT soft tissue neck w con Reviewed date:03/21/2025 07:30:02 PM Interpretation: Performing Lab: Notes/Report: [address] [address] [address] Scan Report Signed Patient: Kalyan Nguyen MR#: [id number] 2742 : 1940 Acct:[id number] Age/Sex: 84 / M ADM Date: 03/20/25 Loc: [facility]: Zoraida Donovan MD Ordering Physician: Nilsa Card Date of Service: 03/20/25 Procedure(s): CT soft tissue neck w IV con Accession Number(s): [id number] cc: Nilsa Card; Jake Pepper MD Report Number: [id number]: Total DLP = 599.99 mGy-cm CLINICAL HISTORY: [...] in OV> 03/20/252104 DD/ 03 TD/TT: 03/20/252103 Trench Shovel Operator: [place] [address] [address] Scan Report Signed Patient: Miguel Nguyen MR#: [id number] 2742 : 1940 Acct:[id number] Age/Sex: 84 / M ADM Date: 03/20/25 [facility] [address]: Zoraida Donovan MD [facility] Date of Service: 03/20/25 Procedure(s): CT sof t tissue neck w IV con Accession Number(s): [id number] cc: Nilsa CardSTALIN; Jake Pepper MD Report Number: [id number]: Total DLP = 599.99 mGy-cm CLINICAL HISTORY: [...] in OV> 03/20/252104 DD/ 03 TD/TT: 03/20/252103 Trench Shovel Operator: CT head/brain wo con Reviewed date:03/21/2025 07:29:22 PM Interpretation: Performing Lab: Notes/Report: [address] [address] [address] Scan Report Signed Patient: Kalyan Nguyen MR#: [id number] 2742 : 1940 Acct:[id number] Age/Sex: 84 / M ADM Date: 03/20/25 [facility] Attending Dr: Zoraida Donovan MD Ordering Physician: Nilsa Card [facility] Date of Service: 03/20/25 Procedure(s): CT head/brain wo IV con Accession Number(s): [id number] cc: Nilsa Card; Jake Pepper MD Report Number: [id number]: Total DLP = 914.64 mGy-cm CLINICAL HISTORY: [...] in OV> 03/20/252105 DD/ 04 TD/TT: 03/20/252104 Trench Shovel Operator: [place] [address] CT Scan Report Signed Patient: Miguel Nguyen MR#: [id number] 2742 : 1940 Acct:[id number] Age/Sex: 84 / M ADM Date: 03/20/25 Loc: [place] [address]: Zoraida Donovan MD Ordering Physician: Nilsa Card Date of Service: 03/20/25 Procedure(s): CT head/brain wo IV con Accession Number(s): [id number] cc: Nilsa Card; Jake Pepper MD Report Number: [id number]: Total DLP = 914.64 mGy-cm CLINICAL HISTORY: [...] in OV> 03/20/252105 DD/ 04 TD/TT: 03/20/252104 Trench Shovel Operator: XR chest 2V Reviewed date:03/21/2025 07:32:02 PM Interpretation: Performing Lab: Notes/Report: [address] [address] XRay Report Signed Patient: Kalyan Nguyen MR#: [id number] 2742 : 1940 Acct:[id number] Age/Sex: 84 / M ADM Date: 03/20/25 Loc: [facility] Attending Dr: Ordering Physician: Lisette Graves NP Date of Service: 03/20/25 Procedure(s): XR chest 2V Accession Number(s): [id number] cc: Jake Pepper MD; Lisette Graves NP [...] signed by Nain Coleman MD in OV> 03/20/258 DD/ 26 TD/TT: 03/20/251726 Trench Shovel Operator: [address] [address] XRay Report Signed Patient: Miguel Nguyen MR#: [id number] 2742 : 1940 Acct:[id number] Age/Sex: 84 / M ADM Date: 03/20/25 Loc: [facility] Attending Dr: Ordering Physician: Lisette Graves NP Date of Service: 03/20/25 Procedure(s): XR rhina st 2V Accession Number(s): [id number] cc: Jake Pepper MD; Lisette Graves NP [...] in OV> 03/20/251727 DD/ 26 TD/TT: 03/20/251726 Trench Shovel Operator: Troponin-I High Sensitivity Reviewed date:03/21/2025 07:31:34 PM Interpretation: Performing Lab:[facility], [address] [place] [phone] Notes/Report: Troponin-I High Sensitivity 24.4 <3.5-35.0 ng/L The Robert high sensitivity Troponin-I results should be used in conjunction with other diagnostic information such as ECG, clinical observations and information, and patient symptoms to aid in the diagnosis of AL. Complete Blood Count Auto Di ff Reviewed date:03/21/2025 07:34:16 PM Interpretation: Performing Lab:[facility], [address] [place] [phone] Notes/Report: White Blood Count 6.6 4.8-10.8 X10*3/uL [...] INR Reviewed date:03/21/2025 07:32:30 PM Interpretation: Performing Lab:[address] [address] Notes/Report: Prothrombin Time 41.4 10.9-12.4 SEC INTERNATIONAL [...] Panel Reviewed date:03/21/2025 07:32:58 PM Interpretation: Performing Lab:[facility], [address] [place] [phone] Notes/Report: Sodium 142 135-145 mmol/L Potassium 3.4 [...] T4 Reviewed date:03/21/2025 07:31:25 PM Interpretation: Performing Lab:[address] [address] Notes/Report: TSH reflex Free T4 1.34 0.32-4.0 uIU/mL Respiratory Panel Reviewed date:03/21/2025 07:28:57 PM Interpretation: Performing Lab:[address] [address] Notes/Report: Adenovirus PCR Not Detected Not Detect. [...] testing should be considered. Results reported to [facility]. This test has been authorized by the [...] is performed by Multiplexed PCR, utilizing the [employer] Array. Prothrombin Time INR Reviewed date:03/22/2025 11:40:38 AM Interpretation: Performing Lab:[facility], [address] [place] [phone] Notes/Report: Prothrombin Time 55.7 10.9-12.4 SEC INTERNATIONAL [...] Panel Reviewed date:03/22/2025 12:35:51 PM Interpretation: Performing Lab:[facility], [address] [place] [phone] Notes/Report: Sodium 138 135-145 mmol/L Potassium 4.1 [...] Random Reviewed date:03/22/2025 04:33:37 PM Interpretation: Performing Lab:[facility], [address] [place] [phone] Notes/Report: Vancomycin Random 13.0 15-20 mcg/mL Prothrombin Time INR Reviewed date:03/23/2025 10:14:22 AM Interpretation: Performing Lab:[facility], [address] [place] [phone] Notes/Report: Prothrombin Time 49.6 10.9-12.4 SEC INTERNATIONAL [...] Creatinine Reviewed date:03/23/2025 10:14:33 AM Interpretation: Performing Lab:[facility], [address] [place] [phone] Notes/Report: Creatinine 0.99 0.5-1.4 mg/dL Creatinine Clr [...] POC Reviewed date:04/01/2025 02:15:11 PM Interpretation: Performing Lab:[facility], [address] [place] [phone] Notes/Report: PT, INR - [facility] 5.4 0.9-1.1 METER #: [id number] Asymptomatic Cleaned Meter Doctor Notified INTERNATIONAL NORMALIZED [...] OC Reviewed date:04/01/2025 02:14:25 PM Interpretation: Performing Lab:[facility], [address] [place] [phone] Notes/Report: Prothrombin Time Whole Bld POC 65.0 11.1-13.5 sec INR WHOLE BLOOD POC Reviewed date:04/05/2025 01:00:12 PM Interpretation: Performing Lab:[facility], [address] [place] [phone] Notes/Report: PT, INR - [facility] 4.7 0.9-1.1 METER #: [id number] INTERNATIONAL NORMALIZED RATIO (INR) REFERENCE RANGES Reference [...] OC Reviewed date:04/05/2025 01:00:04 PM Interpretation: Performing Lab:[facility], [address] [place] [phone] Notes/Report: Prothrombin Time Whole Bld POC 55.9 11.1-13.5 sec INR WHOLE BLOOD POC Reviewed date:04/12/2025 12:38:27 PM Interpretation: Performing Lab:[facility], [address] [place] [phone] Notes/Report: PT, INR - [facility] 4.1 0.9-1.1 METER #: [id number] INTERNATIONAL NORMALIZED RATIO (INR) REFERENCE RANGES Reference [...] OC Reviewed date:04/12/2025 12:38:37 PM Interpretation: Performing Lab:[facility], [address] [place] [phone] Notes/Report: Prothrombin Time Whole Bld POC 49.7 11.1-13.5 sec INR WHOLE BLOOD POC Reviewed date:04/15/2025 04:00:41 PM Interpretation: Performing Lab:[facility], [address] [place] [phone] Notes/Report: PT, INR - Anti Coag Clinic 4.2 0.9-1.1 METER #: [id number] INTERNATIONAL NORMALIZED RATIO (INR) REFERENCE RANGES Reference [...] Prothrombin Time Whole Bld P OC Reviewed date:04/15/2025 04:00:48 PM Interpretation: Performing Lab:[facility], [address] [place] [phone] Notes/Report: Prothrombin Time Whole Bld POC 50.7 11.1-13.5 sec INR WHOLE BLOOD POC Reviewed date:04/19/2025 01:36:50 PM Interpretation: Performing Lab:[facility], [address] [place] [phone] Notes/Report: PT, INR - Anti Coag Clinic 2.7 0.9-1.1 METER #: [id number] INTERNATIONAL NORMALIZED RATIO (INR) REFERENCE RANGES Reference [...] Prothrombin Time Whole Bld P OC Reviewed date:04/19/2025 01:36:41 PM Interpretation: Performing Lab:[facility], [address] [place] [phone] Notes/Report: Prothrombin Time Whole Bld POC 31.9 11.1-13.5 sec Reason For Referral Reason please verito nguyen for for senior living and any other services he made need Diagnosis 1 Atrial fibrillation, unspecified type (I48.91) Diagnosis 2 COPD without exacerb ation (J44.9) Diagnosis 3 Bilateral leg weakne ss (R29.898) Referral Organization Jake Pepper MD Referring Provider First Name Jake Referring Provider Last Name Bombardier Referring Provider Speciality Internal M edicine Referred Provider [facility], [facility] Referred Provider Specialty Unknown General Notes Minerva Duff 0 04/12/2025 11:55:29 AM > referral info faxed, Minerva Duff 04/12/2025 01:22:33 PM >this referral will not be used due to they do not take his insurance. Spoke with [facility], she will be working on [...] puff Inhalation Twice a day Not-Taking Nystatin-Triamcinolone 491795-6.1 UNIT/GM 1 application Externally Twice a day [...] day for 30 days 04/05/2025 Active Nystatin 759970 UNIT/GM 1 application Externally Twice a day [...] needed Inhalation every 4 hrs Active Nystatin 564257 UNIT/GM 1 application Externally Twice a day [...] red Fluarix Quadrivalent Unknown 08/05/2018 Administered At [facility] Influenza High Dose IM Intramuscular 08/03/2019 Administer [...] Problem Status W/U Status Risk Notes Problem 79967226 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 Problem Insomnia (494788749) Insomnia (G47.00) Active confirmed Problem 0577678 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) Active confirmed Problem Cataract (004690218) Unspecified cataract (H26.9) Active confirmed Problem Conductive hearing loss, bilateral (471609727) Conductive hearing loss, 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) Active confirmed Problem 6295802 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) Active confirmed Problem 74998076 Essential hypert ension (I10) Active confirmed Problem 778913863 Prostate cancer (C61) Active confirme d Problem 6678999 Psoriasis (L40.9) Active confirmed Problem 713298092 Lung nodule (R91.1) Active confirmed Problem Low testosterone (171250196) Low testosterone (E29.1) Active confirmed Problem 8382313548409615 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 Problem 146585789 Lung nodules (R91.8) Active confirmed Problem 710074425 Cervical disc di sease (M50.90) Active confirmed Problem 431754417 Tension headache (G44.209) Active confirmed Problem 6214971 Former smoker (Z87.891) Active confirmed Problem Acute exacerbation of chronic obstructive airways disease (405439287) COPD exacerbation (J44.1) Active confirmed Problem Postherpetic neuralgia (6024334) Post herpetic neuralgia (B02.29) Active confirmed Problem 65071640 Dysthymia (F34.1) Active confirmed Problem Iron deficiency anemia (93862233) Iron deficiency anemia, unspecified iron deficiency anemia type (D50.9) Active confirmed Problem 61539228 Atrial fibrillat ion, unspecified type (I48.91) Active confirmed Problem 0528830 Urinary obstruct ion (N13.9) Active confirmed Problem Leukocytosis (897972699) Elevated WBC count (D72.829) Active confirmed Problem 24043118 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 confirmed Problem 576738318 Pure hypercholesterolemia (E78.00) Active confirmed Problem 635812403 BMI 30.0-30.9,ad ult (Z68.30) Active confirmed Problem 056773870 COPD with exacer bation (J44.1) Active confirmed Problem 746252024 Hypertensive cri sis (I16.9) Active confirmed Problem Gout (06307728) Acute gout, unspecified cause, unspecified site (M10.9) Active confirmed Problem 25630944 COPD without exacerbation (J44.9) Active confirmed Problem Gout (95140813) Acute gout of ri ght knee, unspecified cause (M10.9) Active confirmed Problem 867378631 Mixed conductive and sensorineural hearing loss of [...] Jake Pepper MD [address] [place] [id number] 08/20/2024 Jake Pepper Pure hypercholestero lemia E78.00 Jake Pepper MD [address] [place] [address] [id number] 02/19/2025 Jake Pepper Blood tests for rout ine general physical examination Z00.00 ; Essential hypertension I10 ; Pure hypercholesterolemia E78.00 and Iron deficiency anemia, unspecified iron deficiency anemia type D50.9 Jake Pepper MD [address] [place] [address] [id number] 07/07/2024 Jake Pepper Tension headache G44 .209 Jake Pepper MD [address] [place] [address] [id number] 08/27/2024 Jake Pepper Essential hypertensi on I10 ; Pure hypercholesterolemia E78.00 ; Atrial fibrillation, unspecified type I48.91 and COPD without exacerbation J44.9 Jake Pepper MD [address] [place] [address] [id number] 01/22/2025 Jake Pepper Panlobular emphysema J43.1 ; Atrial fibrillation, unspecified type I48.91 and Unspecified cataract H26.9 Jake Pepper MD [address] [place] [address] [id number] 02/26/2025 Jake Pepper Essential hypertensi on I10 ; Annual physical exam Z00.00 ; Panlobular emphysema J43.1 ; Pure hypercholesterolemia E78.00 ; Dysthymia F34.1 ; Iron deficiency anemia, unspecified iron deficiency anemia type D50.9 and Depression screening Z13.31 Jake Pepper MD [address] [place] [address] [id number] 03/18/2025 Jake Pepper Thrush B37.0 Jake Pepper MD [address] [place] [address] [id number] 03/29/2025 Jake Pepper Essential hypertensi on I10 ; Panlobular emphysema J43.1 ; Shingles B02.9 and Thrush B37.0 Jake Pepper MD [address] [place] [address] [id number] 04/05/2025 Jake Pepper Post herpetic neural dung B02.29 ; Skin tear of right forearm without complication, initial encounter S51.801A ; Essential hypertension I10 and Atrial fibrillation, unspecified type I48.91 Jake Pepper MD [address] [place] [address] [id number] 12/21/2024 Jake Pepper MD [address] [place] [address] [id number] 02/19/2025 Jake Pepper MD [address] [place] [address] [id number] 03/19/2025 Jake Pepper MD [address] [place] [address] [id number] 03/26/2025 Jake Pepper MD [address] [place] [address] [id number] 04/01/2025 Jake Pepper MD [address] [place] [address] [id number] 04/13/2025 Jake Pepper MD [address] [place] [address] [id number] 06/07/2024 Jake Pepper Insomnia G47.00 Jake Pepper MD [address] [place] [address] [id number] 07/07/2024 Jake Pepper Insomnia G47.00 Jake Pepper MD [address] [place] [address] [id number] 08/06/2024 Jake Pepper Insomnia G47.00 Jake Pepper MD [address] [place] [address] [id number] 09/02/2024 Jake Pepper Insomnia G47.00 Jake Pepper MD [address] [place] [address] [id number] 10/05/2024 Jake Pepper Insomnia G47.00 Jake Pepper MD [address] [place], [place] [id number] 11/08/2024 Jakebernabe Oliveiraer Insomnia G47.00 Jake Pepper MD [address] [place] [address] [id number] 12/07/2024 Jake Bombardier Insomnia G47.00 Jake Pepper MD [address] [place] [address] [id number] 01/06/2025 Jake Bombardier Insomnia G47.00 Jake Pepper MD [address] [place] [address] [id number] 02/05/2025 Jakebernabe Pepper Insomnia G47.00 Jake Pepper MD [address] [place] [address] [id number] 02/10/2025 Jake Pepper MD [address] [place] [address] [id number] 02/12/2025 Jake Pepper MD [address] [id number] 03/08/2025 Jake Pepper Insomnia G47.00 Assessments Encounter Date [...] Details Provider Name:Jake schmidt, 04/20/2025 10:00:00 AM, [address] [place] [address], [address] [place] [address], [phone], Provider Name:Jake schmidt, 08/19/2025 07:00:00 AM, [address] [place] [address], Suite [facility], [place], [place], [phone], Provider Name:Jake schmidt, 08/26/2025 10:00:00 AM, [address] [place] [address], [address] [place] [address], [phone], Provider Name:Jake schmidt, 02/24/2026 07:15:00 AM, [address] [place] [address], Suite [facility], [place], [place], [phone], Provider Name:Jake Miller ier, 03/03/2026 09:30:00 AM, [address], [address], [place], [phone], Insurance Providers Payer Name Payer Address Payer Phone Subscriber Number Group Number Insured Name Patient Relationship to Insured Coverage Start Date Coverage End Date [employer]AN [facility] [address] [place] [phone] [id number] Wendy Kalyan Self - patient is the insured MEDICARE [address] [place] [address] [id number] Kalyan Nguyen Self - patient is the insured Medical (General) History Medical History History ICD Code 03/2004 - colonoscopy (repea t 10 years); colonoscopy [address] Rajput Smoker unmotivated to quit F17.210 biculatimide and finasteraide for prosta te cancer Surgical History Surgery Date(Month/Year) Repair of Umbilical Hernia w/Mesh (Dr. Darrell guido) 04/2019
--- OUTSIDE RECORDS SUMMARY | 2025-04-19 14:03 | XMS_ITS | Patient Health Record ---
Author Organization [facility] Address [address] [place] [phone] Care Team Providers Care Projection Engineer Name Role Phone Jake Pepper MD Primary Care Provider Luther Rajput Jr [facility] Allergies Allergen (clinical drug ingredient) Drug/Non Drug [...] Problem Status W/U Status Risk Notes Problem 077070077 Colon cancer screening (V76.51) Active confirmed Problem 206912623 Aspirin long-term use (V58.66) Active confirmed Plan Of Treatment Future Test Test Name Order Date COLONOSCOPY 07/29/2014 Insurance Providers Payer Name Payer Address Payer Phone Subscriber Number Group Number Insured Name Patient Relationship to Insured Coverage Start Date Coverage End Date [facility] [address] [place] [phone] [id number] CORNELIA JUAREZ Self - patient is the insured Medicare of [place] [employer] [address] [place] [address] [id number] CORNELIA JUAREZ Self - patient is the insured Medical (General) History Medical History History ICD Code prostate problems hypertension elevated cholesterol Surgical History Surgery Date(Month/Year) back surgery knee surgery
== END 2025-04-19 14:10 | disposition home or self-care (01) ==
LOC: HO.ACS 13:03
PROVIDERS: PCP Internal Medicine; Visit Provider Internal Medicine Medical Oncology
DX: Z79.01 Long term (current) use of anticoagulants (principal)

== ENCOUNTER → 2025-04-19 13:03 | Outpatient (BNVA) | payer MEDICARE, SELFPAY | PROVIDERS: PCP Internal Medicine; Visit Provider Internal Medicine Medical Oncology | DX: I48.0 Paroxysmal atrial fibrillation (principal); Z79.01 Long term (current) use of anticoagulants; Z51.81 Encounter for therapeutic drug level monitoring | CPT/HCPCS: 85610; 99212 ==

== ENCOUNTER 2025-04-27 09:16 | Outpatient (AMB) | payer MEDICARE, SELFPAY ==
--- NOTE | 2025-04-27 09:41 | MHC.OFFVISCO ---
Intake Intake Visit Reasons: Anticoagulation Allergies pneumococcal vaccine (PNEUMOCOCCAL VACCINE) Allergy (Intermediate, Verified 04/27/25 09:23) RASH amoxicillin (From Augmentin) Allergy (Unknown, Verified 04/27/25 09:23) Swelling clavulanic acid (From Augmentin) Allergy (Unknown, Verified 04/27/25 09:23) Swelling theophylline Adverse Reaction (Intermediate, Verified 04/27/25 09:23) Loss of Appetite Medication List - Last Reconciled 04/27/25 by Gertrudis Simeon RN albuterol sulfate 90 mcg/actuation 2 puffs PO Q2H PRN carvedilol 6.25 mg PO BID cyanocobalamin (vitamin B-12) 1,000 mcg PO DAILY furosemide 60 mg (1.5 x 40 mg) PO DAILY gabapentin mg PO ipratropium-albuterol 0.5 mg-3 mg(2.5 mg base)/3 mL 3 mL inhalation TID multivitamin (One Daily Multivitamin tablet) 1 tab PO DAILY nystatin 1 appl topical BID tamsulosin 0.4 mg PO BID 90 days warfarin See Protocol 6mg X6 days and 4.5mg X1 day orally, Take medication 1-2 tabs as directed per anticoagulation clinic based on your INR Nursing Note INR: 2.7 in therapeutic range Medications and supplements reviewed No changes in health, diet, medications, or supplements, * Less post neuroligia pain post shingles, but has develped temers since being on gabapentin- enc to discuss with md to lower the dose or stop it Denies any signs and symptoms of bleeding or bruising or clotting. Bleeding, bruising, clotting discussed Nutritional guidance given - keep eating a mix of fruits and vegetables Dose: keep same dose 3mg x 2 days/ 6mg x 5 days F/U INR: 2 weeks Patient verbalizes understanding of instructions given Anti-Coag Initial Assessment Social Hx Patient Tobacco Use Status: Former Tobacco user alcohol intake: never Alcohol intake frequency: 0-2 drinks per day Cardiovascular Hx: HTN, IL (non stemi) and Arrhythmias (afib) Lung Disease HX: COPD Musculoskeletal Hx: Gout Blood Disorder Hx: Hyperlipidemia GI Hx: Hemorrhoids Hx: Kidney Disease (naren) and Prostate (prostate cancer) Cancer HX: Yes Psych. 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
--- OUTSIDE RECORDS SUMMARY | 2025-04-27 09:49 | XMS_ITS | Patient Health Record ---
Author Organization [facility] Address [address] [place] [phone] Care Team Providers Care Guest Experience Captain Name Role Phone Jake Pepper MD Primary Care Provider Luther Rajput Jr [facility] [phone] Allergies Allergen (clinical drug ingredient) Drug/Non Drug [...] Problem Status W/U Status Risk Notes Problem 434075503 Colon cancer screening (V76.51) Active confirmed Problem 457104146 Aspirin long-term use (V58.66) Active confirmed Plan Of Treatment Future Test Test Name Order Date COLONOSCOPY 07/29/2014 Insurance Providers Payer Name Payer Address Payer Phone Subscriber Number Group Number Insured Name Patient Relationship to Insured Coverage Start Date Coverage End Date [facility] [place] [address] [place] [phone] [id number] CORNELIA JUAREZ Self - patient is the insured Medicare of [place] [employer] [address] [place] [address] [id number] CORNELIA JUAREZ Self - patient is the insured Medical (General) History Medical History History ICD Code prostate problems hypertension elevated cholesterol Surgical History Surgery Date(Month/Year) back surgery knee surgery
--- OUTSIDE RECORDS SUMMARY | 2025-04-27 09:49 | XMS_ITS | Patient Health Record ---
Author Organization Jake Pepper MD Address [address] [place], [place] [id number] Care Team Providers Care Belt Polisher Name Role Phone Jake Pepper Primary Care Provider [phone] Allergies Allergen (clinical drug ingredient) Drug/Non Drug Allergy documented on EMR Reaction Allergy Type Onset Date Status Lamisil rash Drug Allergy Active Vaccine product containing Streptococcus pneumoniae antigen (medicinal product) Pneumovax (uncoded) local reaction redness Allergy Active Results Component Value Reference Range Notes Liver Panel Reviewed date:08/20/2024 03:17:01 PM Interpretation: Performing Lab:[facility], [address] [place] [phone] Notes/Report: Bilirubin Total 0.7 0.0-1.0 mg/dL Bilirubin Direct 0.3 0.0-0.5 mg/dL Aspartate Amino Transferase 42 5-37 U/L Alanine Aminotransferase 24 0-40 U/L Total Protein 7.3 6.5-8.0 g/dL Albumin Level 3.9 3.5-5.0 g/dL Alkaline Phosphatase 94 39-117 U/L Lipid Panel with Reflex Reviewed date:08/20/2024 03:16:31 PM Interpretation: Performing Lab:[facility], [address] [place] [phone] Notes/Report: Triglycerides 135 <150 mg/dL Desirable Triglyceride: [...] ff Reviewed date:02/21/2025 05:38:19 PM Interpretation: Performing Lab:[facility], [address] [place] [phone] Notes/Report: White Blood Count 10.0 4.8-10.8 X10*3/uL [...] NRBC Abs Auto 0.000 0.0-0.012 X10*3/uL Comprehensive [place]. Panel Fa st Reviewed date:02/21/2025 05:34:56 PM Interpretation: Performing Lab:[facility], [address] [place] [phone] Notes/Report: Sodium 143 135-145 mmol/L Potassium 3.8 [...] PROFILE Reviewed date:02/19/2025 12:44:54 PM Interpretation: Performing Lab:[address] [address] Notes/Report: Iron 63 45-160 mcg/dL Total Iron Binding Capacity 271 228-428 mcg/dL Percent Iron Saturation 23 15-50 % Unsaturated Iron Binding 208 Lipid Panel Reviewed date:02/19/2025 12:44:14 PM Interpretation: Performing Lab:[facility], [address] [place] [phone] Notes/Report: Triglycerides 129 <150 mg/dL Desirable Triglyceride: [...] (Free>4and<10) Reviewed date:02/19/2025 12:45:04 PM Interpretation: Performing Lab:[facility], [address] [place] [phone] Notes/Report: PSA,Total (Free>4and<10) < 0.10 0.00-4.00 ng/mL [...] t Reviewed date:02/21/2025 05:39:18 PM Interpretation: Performing Lab:[facility], [address] [place] [phone] Notes/Report: Urine, Clean Catch Color Urine Dark Yellow Appearance Urine Clear PH 6.5 5.0-9.0 Glucose Urine UA Negative Negative mg/dL Urine Blood Negative Negative Specific Randolph - Urine 1.025 1.005-1.025 Urine Protein 30 (1+) Neg-Trace mg/dL Urine Ketones Trace Negative mg/dL Nitrite Urine Negative Negative Leukocyte Esterase Urine Negative Negative RBC Urine 0-2 0-2 /HPF WBC Urine 0-5 0-5 /HPF Squamous Epithelial Cell Urine 0-2 0-2 /HPF Bacteria Urine None Seen None Seen Hyaline Casts Urine 0-2 0-2 /LPF INR WHOLE BLOOD POC Reviewed date:05/14/2024 10:10:53 AM Interpretation: Performing Lab:[facility], [address] [place] [phone] Notes/Report: PT, INR - [facility] 3.9 0.9-1.1 METER #: [id number] INTERNATIONAL NORMALIZED RATIO (INR) REFERENCE RANGES Reference [...] OC Reviewed date:05/14/2024 10:10:44 AM Interpretation: Performing Lab:[facility], [address] [place] [phone] Notes/Report: Prothrombin Time Whole Bld POC 46.7 11.1-13.5 sec INR WHOLE BLOOD POC Reviewed date:05/28/2024 12:29:45 PM Interpretation: Performing Lab:[facility], [address] [place] [phone] Notes/Report: PT, INR - [facility] 2.3 0.9-1.1 METER #: [id number] INTERNATIONAL NORMALIZED RATIO (INR) REFERENCE RANGES Reference [...] OC Reviewed date:05/28/2024 12:29:33 PM Interpretation: Performing Lab:[facility], [address] [place] [phone] Notes/Report: Prothrombin Time Whole Bld POC 27.5 11.1-13.5 sec INR WHOLE BLOOD POC Reviewed date:06/25/2024 11:32:23 AM Interpretation: Performing Lab:[facility], [address] [place] [phone] Notes/Report: PT, INR - [facility] 3.2 0.9-1.1 METER #: [id number] INTERNATIONAL NORMALIZED RATIO (INR) REFERENCE RANGES Reference [...] OC Reviewed date:06/25/2024 12:15:50 PM Interpretation: Performing Lab:[facility], [address] [place] [phone] Notes/Report: Prothrombin Time Whole Bld POC 38.6 11.1-13.5 sec INR WHOLE BLOOD POC Reviewed date:07/09/2024 11:05:08 AM Interpretation: Performing Lab:[facility], [address] [place] [phone] Notes/Report: PT, INR - [facility] 2.3 0.9-1.1 METER #: [id number] INTERNATIONAL NORMALIZED RATIO (INR) REFERENCE RANGES Reference [...] OC Reviewed date:07/09/2024 12:21:37 PM Interpretation: Performing Lab:[facility], [address] [place] [phone] Notes/Report: Prothrombin Time Whole Bld POC 27.5 11.1-13.5 sec INR WHOLE BLOOD POC Reviewed date:07/22/2024 02:12:43 PM Interpretation: Performing Lab:[facility], [address] [place] [phone] Notes/Report: PT, INR - [facility] 1.8 0.9-1.1 METER #: [id number] INTERNATIONAL NORMALIZED RATIO (INR) REFERENCE RANGES Reference [...] OC Reviewed date:07/22/2024 02:18:21 PM Interpretation: Performing Lab:[facility], [address] [place] [phone] Notes/Report: Prothrombin Time Whole Bld POC 21.8 11.1-13.5 sec INR WHOLE BLOOD POC Reviewed date:08/04/2024 12:06:47 PM Interpretation: Performing Lab:[facility], [address] [place] [phone] Notes/Report: PT, INR - [facility] 2.2 0.9-1.1 METER #: [id number] INTERNATIONAL NORMALIZED RATIO (INR) REFERENCE RANGES Reference [...] OC Reviewed date:08/04/2024 12:04:48 PM Interpretation: Performing Lab:[facility], [address] [place] [phone] Notes/Report: Prothrombin Time Whole Bld POC 25.9 11.1-13.5 sec Hold Gold Reviewed date:08/20/2024 12:43:27 PM Interpretation: Performing Lab:[facility], [address] [place] [phone] Notes/Report: Hold Gold See Note Specimen held untested for 24 hours; Call to request Chemistry testing. INR WHOLE BLOOD POC Reviewed date:08/25/2024 07:57:52 PM Interpretation: Performing Lab:[facility], [address] [place] [phone] Notes/Report: PT, INR - [facility] 2.1 0.9-1.1 METER #: [id number] INTERNATIONAL NORMALIZED RATIO (INR) REFERENCE RANGES Reference [...] OC Reviewed date:08/25/2024 07:57:59 PM Interpretation: Performing Lab:[facility], [address] [place] [phone] Notes/Report: Prothrombin Time Whole Bld POC 25.6 11.1-13.5 sec INR WHOLE BLOOD POC Reviewed date:09/15/2024 09:59:14 AM Interpretation: Performing Lab:[facility], [address] [place] [phone] Notes/Report: PT, INR - [facility] 3.0 0.9-1.1 METER #: [id number] INTERNATIONAL NORMALIZED RATIO (INR) REFERENCE RANGES Reference [...] OC Reviewed date:09/15/2024 12:33:10 PM Interpretation: Performing Lab:[facility], [address] [place] [phone] Notes/Report: Prothrombin Time Whole Bld POC 35.5 11.1-13.5 sec INR WHOLE BLOOD POC Reviewed date:10/06/2024 04:22:44 PM Interpretation: Performing Lab:[facility], [address] [place] [phone] Notes/Report: PT, INR - [facility] 2.0 0.9-1.1 METER #: [id number] INTERNATIONAL NORMALIZED RATIO (INR) REFERENCE RANGES Reference [...] OC Reviewed date:10/06/2024 04:22:36 PM Interpretation: Performing Lab:[address] [address] Notes/Report: Prothrombin Time Whole Bld POC 23.5 11.1-13.5 sec Prostate Specific Antigen Reviewed date:10/09/2024 11:16:46 AM Interpretation: Performing Lab:[facility], [address] [place] [phone] Notes/Report: Prostate Specific Antigen < 0.10 <0.05-4.0 ng/mL PSA methodology: Robert Alinity i Chemiluminescent Microparticle Immunoassay (CMIA) INR WHOLE BLOOD POC Reviewed date:10/27/2024 11:14:11 AM Interpretation: Performing Lab:[facility], [address] [place] [phone] Notes/Report: PT, INR - [facility] 2.0 0.9-1.1 METER #: [id number] INTERNATIONAL NORMALIZED RATIO (INR) REFERENCE RANGES Reference [...] OC Reviewed date:10/27/2024 11:14:04 AM Interpretation: Performing Lab:[facility], [address] [place] [phone] Notes/Report: Prothrombin Time Whole Bld POC 23.7 11.1-13.5 sec INR WHOLE BLOOD POC Reviewed date:11/10/2024 12:18:48 PM Interpretation: Performing Lab:[facility], [address] [place] [phone] Notes/Report: PT, INR - [facility] 1.8 0.9-1.1 METER #: [id number] INTERNATIONAL NORMALIZED RATIO (INR) REFERENCE RANGES Reference [...] OC Reviewed date:11/10/2024 12:18:37 PM Interpretation: Performing Lab:[facility], [address] [place] [phone] Notes/Report: Prothrombin Time Whole Bld POC 21.5 11.1-13.5 sec INR WHOLE BLOOD POC Reviewed date:11/24/2024 12:04:29 PM Interpretation: Performing Lab:[facility], [address] [place] [phone] Notes/Report: PT, INR - [facility] 2.4 0.9-1.1 METER #: [id number] INTERNATIONAL NORMALIZED RATIO (INR) REFERENCE RANGES Reference [...] OC Reviewed date:11/24/2024 12:04:21 PM Interpretation: Performing Lab:[facility], [address] [place] [phone] Notes/Report: Prothrombin Time Whole Bld POC 28.2 11.1-13.5 sec INR WHOLE BLOOD POC Reviewed date:12/17/2024 12:38:14 PM Interpretation: Performing Lab:[facility], [address] [place] [phone] Notes/Report: PT, INR - [facility] 2.0 0.9-1.1 METER #: [id number] INTERNATIONAL NORMALIZED RATIO (INR) REFERENCE RANGES Reference [...] OC Reviewed date:12/17/2024 12:51:29 PM Interpretation: Performing Lab:[facility], [address] [place] [phone] Notes/Report: Prothrombin Time Whole Bld POC 23.9 11.1-13.5 sec INR WHOLE BLOOD POC Reviewed date:01/07/2025 10:59:51 AM Interpretation: Performing Lab:[facility], [address] [place] [phone] Notes/Report: PT, INR - [facility] 2.2 0.9-1.1 METER #: [id number] INTERNATIONAL NORMALIZED RATIO (INR) REFERENCE RANGES Reference [...] OC Reviewed date:01/07/2025 10:59:22 AM Interpretation: Performing Lab:[facility], [address] [place] [phone] Notes/Report: Prothrombin Time Whole Bld POC 26.4 11.1-13.5 sec INR WHOLE BLOOD POC Reviewed date:02/04/2025 02:25:43 PM Interpretation: Performing Lab:[facility], [address] [place] [phone] Notes/Report: PT, INR - [facility] 3.3 0.9-1.1 METER #: [id number] INTERNATIONAL NORMALIZED RATIO (INR) REFERENCE RANGES Reference [...] OC Reviewed date:02/04/2025 11:35:29 AM Interpretation: Performing Lab:[facility], [address] [place] [phone] Notes/Report: Prothrombin Time Whole Bld POC 39.1 11.1-13.5 sec INR WHOLE BLOOD POC Reviewed date:03/04/2025 10:01:13 AM Interpretation: Performing Lab:[facility] [address] Notes/Report: PT, INR - [facility] 2.6 0.9-1.1 METER #: [id number] INTERNATIONAL NORMALIZED RATIO (INR) REFERENCE RANGES Reference [...] OC Reviewed date:03/04/2025 10:01:06 AM Interpretation: Performing Lab:[address] [address] Notes/Report: Prothrombin Time Whole Bld POC 31.0 11.1-13.5 sec Complete Blood Count Auto Di ff Reviewed date:03/21/2025 07:34:37 PM Interpretation: Performing Lab:[address] [phone] Notes/Report: White Blood Count 7.1 4.8-10.8 X10*3/uL [...] INR Reviewed date:03/21/2025 07:30:57 PM Interpretation: Performing Lab:[address] [phone] Notes/Report: Prothrombin Time 30.9 10.9-12.4 SEC INTERNATIONAL [...] Microscopic Reviewed date:03/21/2025 07:33:45 PM Interpretation: Performing Lab:[address] [address] Notes/Report: Color Urine Yellow Appearance Urine Clear PH 6.5 5.0-9.0 Glucose Urine UA Negative Negative mg/dL Urine Blood Negative Negative Specific Randolph - Urine >= 1.030 1.005-1.025 Urine Protein 100 (2+) Neg-Trace mg/dL Urine Ketones 15 Negative mg/dL Nitrite Urine Negative Negative Leukocyte Esterase Urine Negative Negative RBC Urine 0-2 0-2 /HPF WBC Urine 0-5 0-5 /HPF Squamous Epithelial Cell Urine 3-5 0-2 /HPF Bacteria Urine None Seen None Seen Hyaline Casts Urine 11-20 0-2 /LPF Comprehensive Met. Panel Reviewed date:03/21/2025 07:33:21 PM Interpretation: Performing Lab:[address] [address] Notes/Report: Sodium 143 135-145 mmol/L Potassium 3.8 [...] Acid Reviewed date:03/21/2025 07:30:17 PM Interpretation: Performing Lab:[facility], [address] [place] [phone] Notes/Report: Lactic Acid 0.9 0.5-2.0 mmol/L Magnesium Reviewed date:03/21/2025 07:31:06 PM Interpretation: Performing Lab:[address] [address] Notes/Report: Magnesium 1.9 1.6-2.6 mg/dL Troponin-I High Sensitivity Reviewed date:03/21/2025 07:30:47 PM Interpretation: Performing Lab:[address] [place] [address] Notes/Report: Troponin-I High Sensitivity 29.0 <3.5-35.0 ng/L The Robert high sensitivity Troponin-I results should be used in conjunction with other diagnostic information such as ECG, clinical observations and information, and patient symptoms to aid in the diagnosis of IL. B Type Natriuretic Peptide Reviewed date:03/21/2025 07:31:15 PM Interpretation: Performing Lab:[address] [phone] Notes/Report: B Type Natriuretic Peptide 214 <100 pg/mL Gram stain Reviewed date:03/23/2025 10:18:58 AM Interpretation: Performing Lab:[address] [address] Notes/Report: Gram stain Gram stain results: Gram stain No polys Gram stain 2+ epithelial cells Gram stain 3+ Gram-positive cocci SARS-CoV2/FLU/RSV Reviewed date:03/21/2025 07:30:40 PM Interpretation: Performing Lab:[facility], [address] [place] [phone] Notes/Report: Influenza A PCR NEGATIVE Negative Influenza [...] by authorized laboratories. Testing performed on the [employer] Gene[employer]pert utilizing real-time RT-PCR. All SARS CoV2 and positive influenza A/B results are reported to [facility]. Blood Culture (First) Reviewed date:03/26/2025 04:21:01 PM Interpretation: Performing Lab:[address] [address] Notes/Report: Blood Culture (First) No growth after 5 days. Blood Culture (Second) Reviewed date:03/26/2025 04:21:09 PM Interpretation: Performing Lab:[facility], [address] [place] [phone] Notes/Report: Blood Culture (Second) No growth after 5 days. Venous Blood Gases - POC Reviewed date:03/21/2025 07:30:11 PM Interpretation: Performing Lab:[facility], [address] [place] [phone] Notes/Report: VBG pH 7.54 7.32-7.43 METER #: [id number] additional_comment: Cb samantha VBG pCO2 56 METER #: [id number] additional_comment: Cb samantha VBG pO2 56 METER #: [id number] additional_comment: Sushant singh VBG Base Excess 22.3 METER #: [id number] additional_comment: Cb samantha VBG HCO3 48 22-26 mmol/L METER #: [id number] additional_comment: Cb samantha VBG O2 % Saturation 88.0 METER #: [id number] additional_comment: Sushant singh Routine Culture Reviewed date:03/23/2025 10:20:42 AM Interpretation: Performing Lab:[facility], [address] [place] [phone] Notes/Report: Routine Culture Report - external Routine Culture 4+ Mixed skin ricci CT soft tissue neck w con Reviewed date:03/21/2025 07:30:02 PM Interpretation: Performing Lab: Notes/Report: [address] [address] [address] Scan Report Signed Patient: Kalyan Nguyen MR#: [id number] 2742 : 1940 Acct:[id number] Age/Sex: 84 / M ADM Date: 03/20/25 Loc: [facility]: Zoraida Donovan MD Ordering Physician: Nilsa Card Date of Service: 03/20/25 Procedure(s): CT soft tissue neck w IV con Accession Number(s): [id number] cc: Nilsa Card; Jake Pepper MD Report Number: [id number]: Total DLP = 599.99 mGy-cm CLINICAL HISTORY: [...] in OV> 03/20/252104 DD/ 03 TD/TT: 03/20/252103 Brush Machine Setter: [place] [address] CT Scan Report Signed Patient: Miguel Nguyen MR#: [id number] 2742 : 1940 Acct:[id number] Age/Sex: 84 / M ADM Date: 03/20/25 [facility] [address]: Zoraida Donovan MD [facility] Date of Service: 03/20/25 Procedure(s): CT sof t tissue neck w IV con Accession Number(s): [id number] cc: Nilsa CardSTALIN; Jake Pepper MD Report Number: [id number]: Total DLP = 599.99 mGy-cm CLINICAL HISTORY: [...] in OV> 03/20/252104 DD/ 03 TD/TT: 03/20/252103 Brush Machine Setter: CT head/brain wo con Reviewed date:03/21/2025 07:29:22 PM Interpretation: Performing Lab: Notes/Report: [address] [address] [address] Scan Report Signed Patient: Kalyan Nguyen MR#: [id number] 2742 : 1940 Acct:[id number] Age/Sex: 84 / M ADM Date: 03/20/25 [facility]: Zoraida Donovan MD Ordering Physician: Nilsa Card [facility] Date of Service: 03/20/25 Procedure(s): CT head/brain wo IV con Accession Number(s): [id number] cc: Nilsa Card; Jake Pepper MD Report Number: [id number]: Total DLP = 914.64 mGy-cm CLINICAL HISTORY: [...] in OV> 03/20/252105 DD/ 04 TD/TT: 03/20/252104 Brush Machine Setter: [place] [address] CT Scan Report Signed Patient: Miguel Nguyen MR#: [id number] 2742 : 1940 Acct:[id number] Age/Sex: 84 / M ADM Date: 03/20/25 Loc: [place] [address]: Zoraida Donovan MD Ordering Physician: Nilsa Card Date of Service: 03/20/25 Procedure(s): CT head/brain wo IV con Accession Number(s): [id number] cc: Nilsa Card; Jake Pepper MD Report Number: [id number]: Total DLP = 914.64 mGy-cm CLINICAL HISTORY: [...] in OV> 03/20/252105 DD/ 04 TD/TT: 03/20/252104 Brush Machine Setter: XR chest 2V Reviewed date:03/21/2025 07:32:02 PM Interpretation: Performing Lab: Notes/Report: [address] [address] XRay Report Signed Patient: Kalyan Nguyen MR#: [id number] 2742 : 1940 Acct:[id number] Age/Sex: 84 / M ADM Date: 03/20/25 Loc: [facility] Attending Dr: Ordering Physician: Lisette Graves NP Date of Service: 03/20/25 Procedure(s): XR chest 2V Accession Number(s): [id number] cc: Jake Pepper MD; Lisette Graves NP [...] in OV> 03/20/258 DD/ 26 TD/TT: 03/20/251726 Brush Machine Setter: [address] [address] XRay Report Signed Patient: Miguel Nguyen MR#: [id number] 2742 : 1940 Acct:[id number] Age/Sex: 84 / M ADM Date: 03/20/25 Loc: [facility] Attending Dr: Ordering Physician: Lisette Graves NP Date of Service: 03/20/25 Procedure(s): XR rh[address] st 2V Accession Number(s): [id number] cc: Jake Pepper MD; Lisette Graves NP CLINICAL HISTORY: dyspnea 3 days, hx COPD 2 view chest x-ray Comparison: 10/18/2023 Findings: The lungs are clear. Normal size heart. No acute fracture. IMPRESSION: 1. No acute findings. This document has be en electronically signed by: Nain Coleman MD on 03/20/2025 17:27:28 Dictated By: Nain Coleman MD Signed By: <Electronically signed by Nain Colmean MD in OV> 03/20/251727 DD/ 26 TD/TT: 03/20/251726 Brush Machine Setter: Troponin-I High Sensitivity Reviewed date:03/21/2025 07:31:34 PM Interpretation: Performing Lab:[facility], [address] [place] [phone] Notes/Report: Troponin-I High Sensitivity 24.4 <3.5-35.0 ng/L The Robert high sensitivity Troponin-I results should be used in conjunction with other diagnostic information such as ECG, clinical observations and information, and patient symptoms to aid in the diagnosis of IL. Complete Blood Count Auto Di ff Reviewed date:03/21/2025 07:34:16 PM Interpretation: Performing Lab:[facility], [address] [place] [phone] Notes/Report: White Blood Count 6.6 4.8-10.8 X10*3/uL [...] INR Reviewed date:03/21/2025 07:32:30 PM Interpretation: Performing Lab:[address] [address] Notes/Report: Prothrombin Time 41.4 10.9-12.4 SEC INTERNATIONAL [...] Panel Reviewed date:03/21/2025 07:32:58 PM Interpretation: Performing Lab:[facility], [address] [place] [phone] Notes/Report: Sodium 142 135-145 mmol/L Potassium 3.4 [...] T4 Reviewed date:03/21/2025 07:31:25 PM Interpretation: Performing Lab:[address] [address] Notes/Report: TSH reflex Free T4 1.34 0.32-4.0 uIU/mL Respiratory Panel Reviewed date:03/21/2025 07:28:57 PM Interpretation: Performing Lab:[address] [address] Notes/Report: Adenovirus PCR Not Detected Not Detect. [...] testing should be considered. Results reported to [facility]. This test has been authorized by [...] is performed by Multiplexed PCR, utilizing the [employer] Array. Prothrombin Time INR Reviewed date:03/22/2025 11:40:38 AM Interpretation: Performing Lab:[facility], [address] [place] [phone] Notes/Report: Prothrombin Time 55.7 10.9-12.4 SEC INTERNATIONAL [...] Panel Reviewed date:03/22/2025 12:35:51 PM Interpretation: Performing Lab:[facility], [address] [place] [phone] Notes/Report: Sodium 138 135-145 mmol/L Potassium 4.1 [...] Random Reviewed date:03/22/2025 04:33:37 PM Interpretation: Performing Lab:[facility], [address] [place] [phone] Notes/Report: Vancomycin Random 13.0 15-20 mcg/mL Prothrombin Time INR Reviewed date:03/23/2025 10:14:22 AM Interpretation: Performing Lab:[facility], [address] [place] [phone] Notes/Report: Prothrombin Time 49.6 10.9-12.4 SEC INTERNATIONAL [...] Creatinine Reviewed date:03/23/2025 10:14:33 AM Interpretation: Performing Lab:[facility], [address] [place] [phone] Notes/Report: Creatinine 0.99 0.5-1.4 mg/dL Creatinine Clr [...] POC Reviewed date:04/01/2025 02:15:11 PM Interpretation: Performing Lab:[facility], [address] [place] [phone] Notes/Report: PT, INR - Anti Coag Clinic 5.4 0.9-1.1 METER #: [id number] Asymptomatic Cleaned Meter Doctor Notified INTERNATIONAL NORMALIZED [...] OC Reviewed date:04/01/2025 02:14:25 PM Interpretation: Performing Lab:[facility], [address] [place] [phone] Notes/Report: Prothrombin Time Whole Bld POC 65.0 11.1-13.5 sec INR WHOLE BLOOD POC Reviewed date:04/05/2025 01:00:12 PM Interpretation: Performing Lab:[facility], [address] [place] [phone] Notes/Report: PT, INR - [facility] 4.7 0.9-1.1 METER #: [id number] INTERNATIONAL NORMALIZED RATIO (INR) REFERENCE RANGES Reference [...] OC Reviewed date:04/05/2025 01:00:04 PM Interpretation: Performing Lab:[facility], [address] [place] [phone] Notes/Report: Prothrombin Time Whole Bld POC 55.9 11.1-13.5 sec INR WHOLE BLOOD POC Reviewed date:04/12/2025 12:38:27 PM Interpretation: Performing Lab:[facility], [address] [place] [phone] Notes/Report: PT, INR - [facility] 4.1 0.9-1.1 METER #: [id number] INTERNATIONAL NORMALIZED RATIO (INR) REFERENCE RANGES Reference [...] OC Reviewed date:04/12/2025 12:38:37 PM Interpretation: Performing Lab:[facility], [address] [place] [phone] Notes/Report: Prothrombin Time Whole Bld POC 49.7 11.1-13.5 sec INR WHOLE BLOOD POC Reviewed date:04/15/2025 04:00:41 PM Interpretation: Performing Lab:[facility], [address] [place] [phone] Notes/Report: PT, INR - [facility] Clinic 4.2 0.9-1.1 METER #: [id number] INTERNATIONAL NORMALIZED RATIO (INR) REFERENCE RANGES Reference [...] OC Reviewed date:04/15/2025 04:00:48 PM Interpretation: Performing Lab:[facility], [address] [place] [phone] Notes/Report: Prothrombin Time Whole Bld POC 50.7 11.1-13.5 sec INR WHOLE BLOOD POC Reviewed date:04/19/2025 01:36:50 PM Interpretation: Performing Lab:[facility], [address] [place] [phone] Notes/Report: PT, INR - [facility] 2.7 0.9-1.1 METER #: [id number] INTERNATIONAL NORMALIZED RATIO (INR) REFERENCE RANGES Reference [...] OC Reviewed date:04/19/2025 01:36:41 PM Interpretation: Performing Lab:[facility], [address] [place] [phone] Notes/Report: Prothrombin Time Whole Bld POC 31.9 11.1-13.5 sec Reason For Referral Reason please verito nguyen for for group home and any other services he made need Diagnosis 1 Atrial fibrillation, unspecified type (I48.91) Diagnosis 2 COPD without exacerb ation (J44.9) Diagnosis 3 Bilateral leg weakne ss (R29.898) Referral Organization Jake Pepper MD Referring Provider First Name Jake Referring Provider Last Name Bombardier Referring Provider Speciality Internal M edicine Referred Provider [facility], [facility] Referred Provider Specialty Unknown General Notes Minerva Duff 0 04/12/2025 11:55:29 AM > referral info faxed, Minerva Duff 04/12/2025 01:22:33 PM >this referral will not be used due to they do not take his insurance. Spoke with [facility], she will be working on getting him services. Referral Priority Routine Medications Medication SIG (Take, Route, Frequency, Duration) Notes Start Date End Date Status Warfarin Sodium 3 MG TAKE 2 TO 2 AND 1/2 TABLETS BY MOUTH DAILY Active amLODIPine Besylate 5 MG 1 tablet Orally Once a day 04/14/2021 Not-Taking Diflucan 150 MG 1 tablet Orally for 10 days 03/18/2025 Not-Taking Gabapentin 300 MG 1 capsule Orally twi ce a day 04/05/2025 Active Ocuflox 0.3 % 1 drop into affected eye Ophthalmic Four times a day for 7 days 05/29/2022 Not-Takin g Meclizine HCl 25 MG 1 tablet as needed Orally Once a day as needed for 30 days Not-Taking Fioricet 50-300-40 MG 1 capsule as neede d Orally every 12 hrs as needed for 7 days 07/07/2024 Not-Taking Furosemide 40 MG TAKE 1 TABLET BY NIGEL TH EVERY DAY Active Albuterol Sulfate (sensor) 108 (90 Base) MCG/ACT 1 puff as needed Inhalation every 4 hrs Active Carvedilol 3.125 MG 1 tablet with food Orally Twice a day Active Atorvastatin Calcium 40 MG 1 tablet Oral ly Once a day Active Tamsulosin HCl 0.4 MG TAKE 1 CAPSULE BY MOUTH TWICE DAILY Active Ventolin HFA 108 (90 Base) MCG/ACT 2 puffs as needed Inhalation every 4 hrs for 30 days 01/26/2013 Not-Taking Nystatin 330449 UNIT/GM 1 application Externally Twice a day for 30 days 05/29/2022 Active Cyclobenzaprine HCl 5 MG 1 tablet Orally Three times a day for 10 days Not-Taking Vitamin B12 1000 MCG 1 tablet Orally Onc e a day for 30 day(s) Active Famotidine 40 MG TK 1 T PO QD HS FOR 14 DAYS Oral for 14 Not-Taking Ipratropium-Albuterol 0.5-2.5 (3) MG/3ML 3 ml as needed Inhalation every 6 hrs 10/30/2021 Active valACYclovir HCl 1 GM 1 tablet Orally On ce a day Not-Taking Nystatin 257755 UNIT/GM 1 application Externally Twice a day for 10 days 03/19/2025 Active Zolpidem Tartrate 5 MG TAKE 1 TABLET BY MOUTH DAILY AT BEDTIME Orally Once a day for 30 days 03/09/2025 Active Doxycycline Monohydrate 100 MG 1 capsule Orally Once a day Not-Taking Nystatin-Triamcinolone 497451-3.1 UNIT/GM 1 application Externally Twice a day for 10 days 03/14/2020 Not-Taking Wixela Inhub 250-50 MCG/DOSE 1 puff Inhalation Twice a day Not-Taking oxyBUTYnin Chloride 5 MG TAKE 1 TABLET B Y MOUTH DAILY for 90 Not-Taking Bicalutamide 50 MG 1 tablet Orally Once a day for 30 day(s) Not-Taking Immunizations Vaccine Route Administration Date Status [...] red Fluarix Quadrivalent Unknown 08/05/2018 Administered At [facility] Influenza High Dose IM Intramuscular 08/03/2019 Administer [...] Problem Status W/U Status Risk Notes Problem 58007763 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 Problem Insomnia (208947116) Insomnia (G47.00) Active confirmed Problem 3502934 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) Active confirmed Problem Cataract (102993964) Unspecified cataract (H26.9) Active confirmed Problem Conductive hearing loss, bilateral (492681527) Conductive hearing loss, 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) Active confirmed Problem 9696124 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) Active confirmed Problem 52543005 Essential hypert ension (I10) Active confirmed Problem 137969024 Prostate cancer (C61) Active confirme d Problem 5333747 Psoriasis (L40.9) Active confirmed Problem 616675588 Lung nodule (R91.1) Active confirmed Problem Low testosterone (218620983) Low testosterone (E29.1) Active confirmed Problem 5270895066209625 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 Problem 175353315 Lung nodules (R91.8) Active confirmed Problem 963477233 Cervical disc di sease (M50.90) Active confirmed Problem 291153017 Tension headache (G44.209) Active confirmed Problem 4440106 Former smoker (Z87.891) Active confirmed Problem Acute exacerbation of chronic obstructive airways disease (352391991) COPD exacerbation (J44.1) Active confirmed Problem Postherpetic neuralgia (9326864) Post herpetic neuralgia (B02.29) Active confirmed Problem 78373653 Dysthymia (F34.1) Active confirmed Problem Iron deficiency anemia (95835033) Iron deficiency anemia, unspecified iron deficiency anemia type (D50.9) Active confirmed Problem 33814625 Atrial fibrillat ion, unspecified type (I48.91) Active confirmed Problem 8040200 Urinary obstruct ion (N13.9) Active confirmed Problem Leukocytosis (248542457) Elevated WBC count (D72.829) Active confirmed Problem 00322595 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 confirmed Problem 276272810 Pure hypercholesterolemia (E78.00) Active confirmed Problem 839954812 BMI 30.0-30.9,ad ult (Z68.30) Active confirmed Problem 831431591 COPD with exacer bation (J44.1) Active confirmed Problem 198573035 Hypertensive cri sis (I16.9) Active confirmed Problem Gout (64122858) Acute gout, unspecified cause, unspecified site (M10.9) Active confirmed Problem 44652955 COPD without exacerbation (J44.9) Active confirmed Problem Gout (70443635) Acute gout of ri ght knee, unspecified cause (M10.9) Active confirmed Problem 015936679 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 Vital Signs Blood pressure diastolic 66 mm Hg 04/20/2025 Height 65 in 04/20/2025 Blood pressure systolic 110 mm Hg 04/20/2025 Weight 167 lbs 04/05/2025 weight is down 2 pounds since 03-29-25 BMI 27.79 kg/m2 04/05/2025 weight is down 2 pounds since 03-29-25 Encounters Encounter Location Date Provider Diagnosis Jake Pepper MD [address] [place] [address] [id number] 08/20/2024 Jake Pepper Pure hypercholestero lemia E78.00 Jake Pepper MD [address] [place] [address] [id number] 02/19/2025 Jake Pepper Blood tests for rout ine general physical examination Z00.00 ; Essential hypertension I10 ; Pure hypercholesterolemia E78.00 and Iron deficiency anemia, unspecified iron deficiency anemia type D50.9 Jake Pepper MD [address] [place] [address] [id number] 07/07/2024 Jake Pepper Tension headache G44 .209 Jake Pepper MD [address] [place] [address] [id number] 08/27/2024 Jake Pepper Essential hypertensi on I10 ; Pure hypercholesterolemia E78.00 ; Atrial fibrillation, unspecified type I48.91 and COPD without exacerbation J44.9 Jake Pepper MD [address] [place] [address] [id number] 01/22/2025 Jake Pepper Panlobular emphysema J43.1 ; Atrial fibrillation, unspecified type I48.91 and Unspecified cataract H26.9 Jake Pepper MD [address] [place] [address] [id number] 02/26/2025 Jake Pepper Essential hypertensi on I10 ; Annual physical exam Z00.00 ; Panlobular emphysema J43.1 ; Pure hypercholesterolemia E78.00 ; Dysthymia F34.1 ; Iron deficiency anemia, unspecified iron deficiency anemia type D50.9 and Depression screening Z13.31 Jake Pepper MD [address] [place] [address] [id number] 03/18/2025 Jake Pepper Thrush B37.0 Jake Pepper MD [address] [place] [address] [id number] 03/29/2025 Jake Pepper Essential hypertensi on I10 ; Panlobular emphysema J43.1 ; Shingles B02.9 and Thrush B37.0 Jake Pepper MD [address] [place] [address] [id number] 04/05/2025 Jake Pepper Post herpetic neural dung B02.29 ; Skin tear of right forearm without complication, initial encounter S51.801A ; Essential hypertension I10 and Atrial fibrillation, unspecified type I48.91 Jake Pepper MD [address] [place] [address] [id number] 04/20/2025 Jake Pepper Post herpetic neural dung B02.29 ; Skin tear of right forearm without complication, initial encounter S51.801A and Atrial fibrillation, unspecified type I48.91 Jake Pepper MD [address] [place] [address] [id number] 12/21/2024 Jake Pepper MD [address] [place] [address] [id number] 02/19/2025 Jake Pepper MD [address] [place] [address] [id number] 03/19/2025 Jake Pepper MD [address] [place] [address] [id number] 03/26/2025 Jake Pepper MD [address] [place] [address] [id number] 04/01/2025 Jake Pepper MD [address] [place] [address] [id number] 04/13/2025 Jake Pepper MD [address] [place] [address] [id number] 06/07/2024 Jake Pepper Insomnia G47.00 Jake Pepper MD [address] [place] [address] [id number] 07/07/2024 Jake Pepper Insomnia G47.00 Jake Pepper MD [address] [place] [address] [id number] 08/06/2024 Jake Pepper Insomnia G47.00 Jake Pepper MD [address] [place] [address] [id number] 09/02/2024 Jake Pepper Insomnia G47.00 Jake Pepper MD [address] [place] [address] [id number] 10/05/2024 Jake Bombardier Insomnia G47.00 Jake Pepper MD [address] [place] [address] [id number] 11/08/2024 Jake Bombardier Insomnia G47.00 Jake Pepper MD [address] [place] [address] [id number] 12/07/2024 Jake Bombardier Insomnia G47.00 Jake Pepper MD [address] [place] [address] [id number] 01/06/2025 Jake Bombardier Insomnia G47.00 Jake Pepper MD [address] [place] [address] [id number] 02/05/2025 Jake Bombardier Insomnia G47.00 Jake Pepper MD [address] [place] [address] [id number] 02/10/2025 Jake Pepper MD [address] [id number] 02/12/2025 [address] [place] [address] [id number] 03/08/2025 Jake Bombardier Insomnia G47.00 Assessments Encounter Date Diagnosis (ICD [...] antibiotic cream and same dressings. looks fine 04/20/2025 Post herpetic neural dung (ICD-10 - B02.29) getting better on gabapentin and tolerating the gabapentin, will continue current regiment 06/07/2024 Insomnia (ICD-10 - G47.00) 07/07/2024 Insomnia [...] I10) doing well, will continue current regiment 04/20/2025 Skin tear of right forearm without complication, initial encounter (ICD-10 - S51.801A) has recovered 02/19/2025 Iron deficiency anem ia, unspecified iron deficiency anemia type (ICD-10 - D50.9) 08/27/2024 COPD without exacerbation (ICD-10 - J44.9) stable 02/26/2025 Pure hypercholesterolemia (ICD-10 - E78.00) doing well on meds, will cntinue current regiment 03/29/2025 Thrush (ICD-10 - B37.0) resolved 04/05/2025 Atrial fibrillation, unspecified type (ICD-10 - I48.91) having trouble with his coumadin. going to check it today 04/20/2025 Atrial fibrillation, unspecified type (ICD-10 - I48.91) stable, will continue current regiment 02/26/2025 Dysthymia (ICD-10 - F34.1) seeems well [...] Details Provider Name:Jake schmidt, 08/19/2025 07:00:00 AM, [address] [place] [address], [address], [place], [place], [phone], Provider Name:Jake schmidt, 08/26/2025 10:00:00 AM, [address], [address], [place], [place], [phone], Provider Name:Jake Miller ier, 02/24/2026 07:15:00 AM, [address], [address], [place], [place], [phone], Provider Name:Jake Miller ier, 03/03/2026 09:30:00 AM, [address], [address], [place], [place], [phone], Insurance Providers Payer Name Payer Address Payer Phone Subscriber Number Group Number Insured Name Patient Relationship to Insured Coverage Start Date Coverage End Date [employer] PLAN [address] [place] [phone] [id number] Kalyan Nguyen Self - patient is the insured MEDIC[employer] [address] [place] [address] [id number] Wendy Kalyan Self - patient is the insured Medical (General) History Medical History History ICD Code 03/2004 - colonoscopy (repea t 10 years); colonoscopy [address] Rajput Smoker unmotivated to quit F17.210 biculatimide and finasteraide for prosta te cancer Surgical History Surgery Date(Month/Year) Repair of Umbilical Hernia w/Mesh (Dr. Darrell guido) 04/2019
[2025-04-27 09:53] LABS: Prothrombin Time Whole Bld POC 29.1 sec (11.1-13.5); ~PT, ~INR - Anti Coag Clinic 2.4 (0.9-1.1)
== END 2025-04-27 09:44 | disposition home or self-care (01) ==
LOC: HO.ACS 09:16
PROVIDERS: PCP Internal Medicine; Visit Provider Internal Medicine Medical Oncology
DX: Z79.01 Long term (current) use of anticoagulants (principal)

== ENCOUNTER → 2025-04-27 09:16 | Outpatient (BNVA) | payer MEDICARE, SELFPAY | PROVIDERS: PCP Internal Medicine; Visit Provider Internal Medicine Medical Oncology | DX: I48.0 Paroxysmal atrial fibrillation (principal); Z79.01 Long term (current) use of anticoagulants; Z51.81 Encounter for therapeutic drug level monitoring | CPT/HCPCS: 85610; 99211 ==

== ENCOUNTER 2025-05-11 09:10 | Outpatient (AMB) | payer MEDICARE, SELFPAY ==
[2025-05-11 09:28] LABS: Prothrombin Time Whole Bld POC 16.7 sec (11.1-13.5); ~PT, ~INR - Anti Coag Clinic 1.4 (0.9-1.1)
--- OUTSIDE RECORDS SUMMARY | 2025-05-11 09:29 | XMS_ITS | Patient Health Record ---
Author Organization [facility] Address [address] [place] [phone] Care Team Providers Care Judicial Administrative Assistant Name Role Phone Jake Pepper MD Primary Care Provider Luther Rajput Jr [facility] Allergies Allergen (clinical drug ingredient) Drug/Non [...] Problem Status W/U Status Risk Notes Problem 593048614 Colon cancer screening (V76.51) Active confirmed Problem [id number] Aspirin long-term use (V58.66) Active confirmed Plan Of Treatment Future Test Test Name Order Date COLONOSCOPY 07/29/2014 Insurance Providers Payer Name Payer Address Payer Phone Subscriber Number Group Number Insured Name Patient Relationship to Insured Coverage Start Date Coverage End Date [facility] [address] [place] [address] [phone] [id number] CORNELIA JUAREZ Self - patient is the insured Medicare of [place] [employer] [address] [place] [address] [id number] CORNELIA JUAREZ Self - patient is the insured Medical (General) History Medical History History ICD Code prostate problems hypertension elevated cholesterol Surgical History Surgery Date(Month/Year) back surgery knee surgery
--- OUTSIDE RECORDS SUMMARY | 2025-05-11 09:29 | XMS_ITS | Patient Health Record ---
Author Organization Jake Pepper MD Address [address] [place], [place] [id number] Care Team Providers Care Inventory Technician Name Role Phone Jake Pepper Primary Care Provider Allergies Allergen (clinical drug ingredient) Drug/Non Drug Allergy documented on EMR Reaction Allergy Type Onset Date Status Lamisil rash Drug Allergy Active Vaccine product containing Streptococcus pneumoniae antigen (medicinal product) Pneumovax (uncoded) local reaction redness Allergy Active Results Component Value Reference Range Notes Liver Panel Reviewed date:08/20/2024 03:17:01 PM Interpretation: Performing Lab:[facility], [address] [place] [phone] Notes/Report: Bilirubin Total 0.7 0.0-1.0 mg/dL Bilirubin Direct 0.3 0.0-0.5 mg/dL Aspartate Amino Transferase 42 5-37 U/L Alanine Aminotransferase 24 0-40 U/L Total Protein 7.3 6.5-8.0 g/dL Albumin Level 3.9 3.5-5.0 g/dL Alkaline Phosphatase 94 39-117 U/L Lipid Panel with Reflex Reviewed date:08/20/2024 03:16:31 PM Interpretation: Performing Lab:[facility], [address] [place] [phone] Notes/Report: Triglycerides 135 <150 mg/dL Desirable Triglyceride: [...] ff Reviewed date:02/21/2025 05:38:19 PM Interpretation: Performing Lab:[facility], [address] [place] [phone] Notes/Report: White Blood Count 10.0 4.8-10.8 X10*3/uL [...] NRBC Abs Auto 0.000 0.0-0.012 X10*3/uL Comprehensive Moville. Panel Fa st Reviewed date:02/21/2025 05:34:56 PM Interpretation: Performing Lab:[facility], [address] [place] [phone] Notes/Report: Sodium 143 135-145 mmol/L Potassium 3.8 [...] PROFILE Reviewed date:02/19/2025 12:44:54 PM Interpretation: Performing Lab:[address] [phone] Notes/Report: Iron 63 45-160 mcg/dL Total Iron Binding Capacity 271 228-428 mcg/dL Percent Iron Saturation 23 15-50 % Unsaturated Iron Binding 208 Lipid Panel Reviewed date:02/19/2025 12:44:14 PM Interpretation: Performing Lab:[facility], [address] [place] [phone] Notes/Report: Triglycerides 129 <150 mg/dL Desirable Triglyceride: [...] (Free>4and<10) Reviewed date:02/19/2025 12:45:04 PM Interpretation: Performing Lab:[facility], [address] [place] [phone] Notes/Report: PSA,Total (Free>4and<10) < 0.10 0.00-4.00 ng/mL [...] t Reviewed date:02/21/2025 05:39:18 PM Interpretation: Performing Lab:[facility], [address] [place] [phone] Notes/Report: Urine, Clean Catch Color Urine Dark Yellow Appearance Urine Clear PH 6.5 5.0-9.0 Glucose Urine UA Negative Negative mg/dL Urine Blood Negative Negative Specific [place] - Urine 1.025 1.005-1.025 Urine Protein 30 (1+) Neg-Trace mg/dL Urine Ketones Trace Negative mg/dL Nitrite Urine Negative Negative Leukocyte Esterase Urine Negative Negative RBC Urine 0-2 0-2 /HPF WBC Urine 0-5 0-5 /HPF Squamous Epithelial Cell Urine 0-2 0-2 /HPF Bacteria Urine None Seen None Seen Hyaline Casts Urine 0-2 0-2 /LPF INR WHOLE BLOOD POC Reviewed date:05/14/2024 10:10:53 AM Interpretation: Performing Lab:[facility], [address] [place] [phone] Notes/Report: PT, INR - Anti Coag Clinic 3.9 0.9-1.1 METER #: [id number] INTERNATIONAL NORMALIZED RATIO (INR) REFERENCE RANGES Reference [...] OC Reviewed date:05/14/2024 10:10:44 AM Interpretation: Performing Lab:[facility], [address] [place] [phone] Notes/Report: Prothrombin Time Whole Bld POC 46.7 11.1-13.5 sec INR WHOLE BLOOD POC Reviewed date:05/28/2024 12:29:45 PM Interpretation: Performing Lab:[facility], [address] [place] [phone] Notes/Report: PT, INR - Anti Coag Clinic 2.3 0.9-1.1 METER #: [id number] INTERNATIONAL NORMALIZED RATIO (INR) REFERENCE RANGES Reference [...] OC Reviewed date:05/28/2024 12:29:33 PM Interpretation: Performing Lab:[facility], [address] [place] [phone] Notes/Report: Prothrombin Time Whole Bld POC 27.5 11.1-13.5 sec INR WHOLE BLOOD POC Reviewed date:06/25/2024 11:32:23 AM Interpretation: Performing Lab:[facility], [address] [place] [phone] Notes/Report: PT, INR - Anti Coag Clinic 3.2 0.9-1.1 METER #: [id number] INTERNATIONAL NORMALIZED RATIO (INR) REFERENCE RANGES Reference [...] OC Reviewed date:06/25/2024 12:15:50 PM Interpretation: Performing Lab:[facility], [address] [place] [phone] Notes/Report: Prothrombin Time Whole Bld POC 38.6 11.1-13.5 sec INR WHOLE BLOOD POC Reviewed date:07/09/2024 11:05:08 AM Interpretation: Performing Lab:[facility], [address] [place] [phone] Notes/Report: PT, INR - Anti Coag Clinic 2.3 0.9-1.1 METER #: [id number] INTERNATIONAL NORMALIZED RATIO (INR) REFERENCE RANGES Reference [...] OC Reviewed date:07/09/2024 12:21:37 PM Interpretation: Performing Lab:[facility], [address] [place] [phone] Notes/Report: Prothrombin Time Whole Bld POC 27.5 11.1-13.5 sec INR WHOLE BLOOD POC Reviewed date:07/22/2024 02:12:43 PM Interpretation: Performing Lab:[facility], [address] [place] [phone] Notes/Report: PT, INR - Anti Coag Clinic 1.8 0.9-1.1 METER #: [id number] INTERNATIONAL NORMALIZED RATIO (INR) REFERENCE RANGES Reference [...] OC Reviewed date:07/22/2024 02:18:21 PM Interpretation: Performing Lab:[facility], [address] [place] [phone] Notes/Report: Prothrombin Time Whole Bld POC 21.8 11.1-13.5 sec INR WHOLE BLOOD POC Reviewed date:08/04/2024 12:06:47 PM Interpretation: Performing Lab:[facility], [address] [place] [phone] Notes/Report: PT, INR - Anti Coag Clinic 2.2 0.9-1.1 METER #: [id number] INTERNATIONAL NORMALIZED RATIO (INR) REFERENCE RANGES Reference [...] OC Reviewed date:08/04/2024 12:04:48 PM Interpretation: Performing Lab:[facility], [address] [place] [phone] Notes/Report: Prothrombin Time Whole Bld POC 25.9 11.1-13.5 sec Hold Gold Reviewed date:08/20/2024 12:43:27 PM Interpretation: Performing Lab:[facility], [address] [place] [phone] Notes/Report: Hold Gold See Note Specimen held untested for 24 hours; Call to request Chemistry testing. INR WHOLE BLOOD POC Reviewed date:08/25/2024 07:57:52 PM Interpretation: Performing Lab:[facility], [address] [place] [phone] Notes/Report: PT, INR - Anti Coag Clinic 2.1 0.9-1.1 METER #: [id number] INTERNATIONAL NORMALIZED RATIO (INR) REFERENCE RANGES Reference [...] OC Reviewed date:08/25/2024 07:57:59 PM Interpretation: Performing Lab:[facility], [address] [place] [phone] Notes/Report: Prothrombin Time Whole Bld POC 25.6 11.1-13.5 sec INR WHOLE BLOOD POC Reviewed date:09/15/2024 09:59:14 AM Interpretation: Performing Lab:[facility], [address] [place] [phone] Notes/Report: PT, INR - Anti Coag Clinic 3.0 0.9-1.1 METER #: [id number] INTERNATIONAL NORMALIZED RATIO (INR) REFERENCE RANGES Reference [...] OC Reviewed date:09/15/2024 12:33:10 PM Interpretation: Performing Lab:[facility], [address] [place] [phone] Notes/Report: Prothrombin Time Whole Bld POC 35.5 11.1-13.5 sec INR WHOLE BLOOD POC Reviewed date:10/06/2024 04:22:44 PM Interpretation: Performing Lab:[facility], [address] [place] [phone] Notes/Report: PT, INR - Anti Coag Clinic 2.0 0.9-1.1 METER #: [id number] INTERNATIONAL NORMALIZED RATIO (INR) REFERENCE RANGES Reference [...] OC Reviewed date:10/06/2024 04:22:36 PM Interpretation: Performing Lab:[address] [phone] Notes/Report: Prothrombin Time Whole Bld POC 23.5 11.1-13.5 sec Prostate Specific Antigen Reviewed date:10/09/2024 11:16:46 AM Interpretation: Performing Lab:[facility], [address] [place] [phone] Notes/Report: Prostate Specific Antigen < 0.10 <0.05-4.0 ng/mL PSA methodology: Robert Alinity i Chemiluminescent Microparticle Immunoassay (CMIA) INR WHOLE BLOOD POC Reviewed date:10/27/2024 11:14:11 AM Interpretation: Performing Lab:[facility], [address] [place] [phone] Notes/Report: PT, INR - Anti Coag Clinic 2.0 0.9-1.1 METER #: [id number] INTERNATIONAL NORMALIZED RATIO (INR) REFERENCE RANGES Reference [...] OC Reviewed date:10/27/2024 11:14:04 AM Interpretation: Performing Lab:[facility], [address] [place] [phone] Notes/Report: Prothrombin Time Whole Bld POC 23.7 11.1-13.5 sec INR WHOLE BLOOD POC Reviewed date:11/10/2024 12:18:48 PM Interpretation: Performing Lab:[facility], [address] [place] [phone] Notes/Report: PT, INR - Anti Coag Clinic 1.8 0.9-1.1 METER #: [id number] INTERNATIONAL NORMALIZED RATIO (INR) REFERENCE RANGES Reference [...] OC Reviewed date:11/10/2024 12:18:37 PM Interpretation: Performing Lab:[facility], [address] [place] [phone] Notes/Report: Prothrombin Time Whole Bld POC 21.5 11.1-13.5 sec INR WHOLE BLOOD POC Reviewed date:11/24/2024 12:04:29 PM Interpretation: Performing Lab:[facility], [address] [place] [phone] Notes/Report: PT, INR - Anti Coag Clinic 2.4 0.9-1.1 METER #: [id number] INTERNATIONAL NORMALIZED RATIO (INR) REFERENCE RANGES Reference [...] OC Reviewed date:11/24/2024 12:04:21 PM Interpretation: Performing Lab:[facility], [address] [place] [phone] Notes/Report: Prothrombin Time Whole Bld POC 28.2 11.1-13.5 sec INR WHOLE BLOOD POC Reviewed date:12/17/2024 12:38:14 PM Interpretation: Performing Lab:[facility], [address] [place] [phone] Notes/Report: PT, INR - Anti Coag Clinic 2.0 0.9-1.1 METER #: [id number] INTERNATIONAL NORMALIZED RATIO (INR) REFERENCE RANGES Reference [...] OC Reviewed date:12/17/2024 12:51:29 PM Interpretation: Performing Lab:[facility], [address] [place] [phone] Notes/Report: Prothrombin Time Whole Bld POC 23.9 11.1-13.5 sec INR WHOLE BLOOD POC Reviewed date:01/07/2025 10:59:51 AM Interpretation: Performing Lab:[facility], [address] [place] [phone] Notes/Report: PT, INR - Anti Coag Clinic 2.2 0.9-1.1 METER #: [id number] INTERNATIONAL NORMALIZED RATIO (INR) REFERENCE RANGES Reference [...] OC Reviewed date:01/07/2025 10:59:22 AM Interpretation: Performing Lab:[facility], [address] [place] [phone] Notes/Report: Prothrombin Time Whole Bld POC 26.4 11.1-13.5 sec INR WHOLE BLOOD POC Reviewed date:02/04/2025 02:25:43 PM Interpretation: Performing Lab:[facility], [address] [place] [phone] Notes/Report: PT, INR - Anti Coag Clinic 3.3 0.9-1.1 METER #: [id number] INTERNATIONAL NORMALIZED RATIO (INR) REFERENCE RANGES Reference [...] OC Reviewed date:02/04/2025 11:35:29 AM Interpretation: Performing Lab:[facility], [address] [place] [phone] Notes/Report: Prothrombin Time Whole Bld POC 39.1 11.1-13.5 sec INR WHOLE BLOOD POC Reviewed date:03/04/2025 10:01:13 AM Interpretation: Performing Lab:[facility] [address] Notes/Report: PT, INR - Anti Coag Clinic 2.6 0.9-1.1 METER #: [id number] INTERNATIONAL NORMALIZED RATIO (INR) REFERENCE RANGES Reference [...] OC Reviewed date:03/04/2025 10:01:06 AM Interpretation: Performing Lab:[address] [phone] Notes/Report: Prothrombin Time Whole Bld POC 31.0 11.1-13.5 sec Complete Blood Count Auto Di ff Reviewed date:03/21/2025 07:34:37 PM Interpretation: Performing Lab:[address] [address] Notes/Report: White Blood Count 7.1 4.8-10.8 X10*3/uL [...] INR Reviewed date:03/21/2025 07:30:57 PM Interpretation: Performing Lab:[address] [address] Notes/Report: Prothrombin Time 30.9 10.9-12.4 SEC INTERNATIONAL [...] Microscopic Reviewed date:03/21/2025 07:33:45 PM Interpretation: Performing Lab:[address] [address] Notes/Report: Color Urine Yellow Appearance Urine Clear PH 6.5 5.0-9.0 Glucose Urine UA Negative Negative mg/dL Urine Blood Negative Negative Specific [place] - Urine >= 1.030 1.005-1.025 Urine Protein 100 (2+) Neg-Trace mg/dL Urine Ketones 15 Negative mg/dL Nitrite Urine Negative Negative Leukocyte Esterase Urine Negative Negative RBC Urine 0-2 0-2 /HPF WBC Urine 0-5 0-5 /HPF Squamous Epithelial Cell Urine 3-5 0-2 /HPF Bacteria Urine None Seen None Seen Hyaline Casts Urine 11-20 0-2 /LPF Comprehensive Met. Panel Reviewed date:03/21/2025 07:33:21 PM Interpretation: Performing Lab:[address] [address] Notes/Report: Sodium 143 135-145 mmol/L Potassium 3.8 [...] Acid Reviewed date:03/21/2025 07:30:17 PM Interpretation: Performing Lab:[facility], [address] [place] [phone] Notes/Report: Lactic Acid 0.9 0.5-2.0 mmol/L Magnesium Reviewed date:03/21/2025 07:31:06 PM Interpretation: Performing Lab:[address] [phone] Notes/Report: Magnesium 1.9 1.6-2.6 mg/dL Troponin-I High Sensitivity Reviewed date:03/21/2025 07:30:47 PM Interpretation: Performing Lab:[address] [place] [address] Notes/Report: Troponin-I High Sensitivity 29.0 <3.5-35.0 ng/L The Robert high sensitivity Troponin-I results should be used in conjunction with other diagnostic information such as ECG, clinical observations and information, and patient symptoms to aid in the diagnosis of IN. B Type Natriuretic Peptide Reviewed date:03/21/2025 07:31:15 PM Interpretation: Performing Lab:[address] [address] Notes/Report: B Type Natriuretic Peptide 214 <100 pg/mL Gram stain Reviewed date:03/23/2025 10:18:58 AM Interpretation: Performing Lab:[address] [address] Notes/Report: Gram stain Gram stain results: Gram stain No polys Gram stain 2+ epithelial cells Gram stain 3+ Gram-positive cocci SARS-CoV2/FLU/RSV Reviewed date:03/21/2025 07:30:40 PM Interpretation: Performing Lab:[facility], [address] [place] [phone] Notes/Report: Influenza A PCR NEGATIVE Negative Influenza [...] by authorized laboratories. Testing performed on the [employer] GeneXpert utilizing real-time RT-PCR. All SARS CoV2 and positive influenza A/B results are reported to [facility]. Blood Culture (First) Reviewed date:03/26/2025 04:21:01 PM Interpretation: Performing Lab:[address] [address] Notes/Report: Blood Culture (First) No growth after 5 days. Blood Culture (Second) Reviewed date:03/26/2025 04:21:09 PM Interpretation: Performing Lab:[facility], [address] [place] [phone] Notes/Report: Blood Culture (Second) No growth after 5 days. Venous Blood Gases - POC Reviewed date:03/21/2025 07:30:11 PM Interpretation: Performing Lab:[facility], [address] [place] [address] Notes/Report: VBG pH 7.54 7.32-7.43 METER #: [id number] additional_comment: Cb samantha VBG pCO2 56 METER #: [id number] additional_comment: Cb samantha VBG pO2 56 METER #: [id number] additional_comment: Sushant singh VBG Base Excess 22.3 METER #: [id number] additional_comment: Cb samantha VBG HCO3 48 22-26 mmol/L METER #: [id number] additional_comment: Cb samantha VBG O2 % Saturation 88.0 METER #: [id number] additional_comment: Sushant singh Routine Culture Reviewed date:03/23/2025 10:20:42 AM Interpretation: Performing Lab:[facility], [address] [place] [phone] Notes/Report: Routine Culture Report - external Routine Culture 4+ Mixed skin ricci CT soft tissue neck w con Reviewed date:03/21/2025 07:30:02 PM Interpretation: Performing Lab: Notes/Report: [address] [address] [address] Scan Report Signed Patient: Kalyan Nguyen MR#: [id number] 2742 : 1940 Acct:[id number] Age/Sex: 84 / M ADM Date: 03/20/25 Loc: [facility]: Zoraida Donovan MD Ordering Physician: Nilsa Card Date of Service: 03/20/25 Procedure(s): CT soft tissue neck w IV con Accession Number(s): [id number] cc: Nilsa Card; Jake Pepper MD Report Number: [id number]: Total DLP = 599.99 mGy-cm CLINICAL HISTORY: [...] in OV> 03/20/252104 DD/ 03 TD/TT: 03/20/252103 Instrumentation Tech: [place] [address] CT Scan Report Signed Patient: Miguel Nguyen MR#: [id number] 2742 : 1940 Acct:[id number] Age/Sex: 84 / M ADM Date: 03/20/25 [facility] [address]: Zoraida Donovan MD [facility] of Service: 03/20/25 Procedure(s): CT sof t tissue neck w IV con Accession Number(s): [id number] cc: Nilsa CardSTALIN; Jake Pepper MD Report Number: [id number]: Total DLP = 599.99 mGy-cm CLINICAL HISTORY: [...] in OV> 03/20/252104 DD/ 03 TD/TT: 03/20/252103 Instrumentation Tech: CT head/brain wo con Reviewed date:03/21/2025 07:29:22 PM Interpretation: Performing Lab: Notes/Report: [address] [address] [address] Scan Report Signed Patient: Kalyan Nguyen MR#: [id number] 2742 : 1940 Acct:[id number] Age/Sex: 84 / M ADM Date: 03/20/25 [facility] Dr: Zoraida Donovan MD Ordering Physician: Nilsa Card [facility] Date of Service: 03/20/25 Procedure(s): CT head/brain wo IV con Accession Number(s): [id number] cc: Nilsa Card; Jake Pepper MD Report Number: [id number]: Total DLP = 914.64 mGy-cm CLINICAL HISTORY: [...] in OV> 03/20/252105 DD/ 04 TD/TT: 03/20/252104 Instrumentation Tech: [place] [address] CT Scan Report Signed Patient: Miguel Nguyen MR#: [id number] 2742 : 1940 Acct:[id number] Age/Sex: 84 / M ADM Date: 03/20/25 Loc: [place] [address]: Zoraida Donovan MD Ordering Physician: Nilsa Card Date of Service: 03/20/25 Procedure(s): CT head/brain wo IV con Accession Number(s): [id number] cc: Nilsa Card; Jake Pepper MD Report Number: [id number]: Total DLP = 914.64 mGy-cm CLINICAL HISTORY: [...] in OV> 03/20/252105 DD/ 04 TD/TT: 03/20/252104 Instrumentation Tech: XR chest 2V Reviewed date:03/21/2025 07:32:02 PM Interpretation: Performing Lab: Notes/Report: [address] [address] XRay Report Signed Patient: Kalyan Nguyen MR#: [id number] 2742 : 1940 Acct:[id number] Age/Sex: 84 / M ADM Date: 03/20/25 Loc: [facility] Attending Dr: Ordering Physician: Lisette Graves NP Date of Service: 03/20/25 Procedure(s): XR chest 2V Accession Number(s): [id number] cc: Jake Pepper MD; Lisette Graves NP [...] in OV> 03/20/258 DD/ 26 TD/TT: 03/20/251726 Instrumentation Tech: [address] [address] XRay Report Signed Patient: Miguel Nguyen MR#: [id number] 2742 : 1940 Acct:[id number] Age/Sex: 84 / M ADM Date: 03/20/25 Loc: [facility] Attending Dr: Ordering Physician: Lisette Graves NP Date of Service: 03/20/25 Procedure(s): XR rhina st 2V Accession Number(s): [id number] cc: Jake Pepper MD; Lisette Graves NP [...] in OV> 03/20/251727 DD/ 26 TD/TT: 03/20/251726 Instrumentation Tech: Troponin-I High Sensitivity Reviewed date:03/21/2025 07:31:34 PM Interpretation: Performing Lab:[facility], [address] [place] [address] Notes/Report: Troponin-I High Sensitivity 24.4 <3.5-35.0 ng/L The Robert high sensitivity Troponin-I results should be used in conjunction with other diagnostic information such as ECG, clinical observations and information, and patient symptoms to aid in the diagnosis of IN. Complete Blood Count Auto Di ff Reviewed date:03/21/2025 07:34:16 PM Interpretation: Performing Lab:[facility], [address] [place] [address] Notes/Report: White Blood Count 6.6 4.8-10.8 X10*3/uL [...] INR Reviewed date:03/21/2025 07:32:30 PM Interpretation: Performing Lab:[address] [address] Notes/Report: Prothrombin Time 41.4 10.9-12.4 SEC INTERNATIONAL [...] Panel Reviewed date:03/21/2025 07:32:58 PM Interpretation: Performing Lab:[facility], [address] [place] [address] Notes/Report: Sodium 142 135-145 mmol/L Potassium 3.4 [...] T4 Reviewed date:03/21/2025 07:31:25 PM Interpretation: Performing Lab:[address] [address] Notes/Report: TSH reflex Free T4 1.34 0.32-4.0 uIU/mL Respiratory Panel Reviewed date:03/21/2025 07:28:57 PM Interpretation: Performing Lab:[address] [address] Notes/Report: Adenovirus PCR Not Detected Not Detect. [...] testing should be considered. Results reported to [facility]. This test has been authorized by the [...] is performed by Multiplexed PCR, utilizing the [employer] Array. Prothrombin Time INR Reviewed date:03/22/2025 11:40:38 AM Interpretation: Performing Lab:[facility], [address] [place] [phone] Notes/Report: Prothrombin Time 55.7 10.9-12.4 SEC INTERNATIONAL [...] Panel Reviewed date:03/22/2025 12:35:51 PM Interpretation: Performing Lab:[facility], [address] [place] [address] Notes/Report: Sodium 138 135-145 mmol/L Potassium 4.1 [...] Random Reviewed date:03/22/2025 04:33:37 PM Interpretation: Performing Lab:[facility], [address] [place] [phone] Notes/Report: Vancomycin Random 13.0 15-20 mcg/mL Prothrombin Time INR Reviewed date:03/23/2025 10:14:22 AM Interpretation: Performing Lab:[facility], [address] [place] [address] Notes/Report: Prothrombin Time 49.6 10.9-12.4 SEC INTERNATIONAL [...] Creatinine Reviewed date:03/23/2025 10:14:33 AM Interpretation: Performing Lab:[facility], [address] [place] [phone] Notes/Report: Creatinine 0.99 0.5-1.4 mg/dL Creatinine Clr [...] POC Reviewed date:04/01/2025 02:15:11 PM Interpretation: Performing Lab:[facility], [address] [place] [phone] Notes/Report: PT, INR - Anti Coag Clinic 5.4 0.9-1.1 METER #: [id number] Asymptomatic Cleaned Meter Doctor Notified INTERNATIONAL NORMALIZED [...] OC Reviewed date:04/01/2025 02:14:25 PM Interpretation: Performing Lab:[facility], [address] [place] [phone] Notes/Report: Prothrombin Time Whole Bld POC 65.0 11.1-13.5 sec INR WHOLE BLOOD POC Reviewed date:04/05/2025 01:00:12 PM Interpretation: Performing Lab:[facility], [address] [place] [phone] Notes/Report: PT, INR - Anti Coag Clinic 4.7 0.9-1.1 METER #: [id number] INTERNATIONAL NORMALIZED RATIO (INR) REFERENCE RANGES Reference [...] OC Reviewed date:04/05/2025 01:00:04 PM Interpretation: Performing Lab:[facility], [address] [place] [phone] Notes/Report: Prothrombin Time Whole Bld POC 55.9 11.1-13.5 sec INR WHOLE BLOOD POC Reviewed date:04/12/2025 12:38:27 PM Interpretation: Performing Lab:[facility], [address] [place] [phone] Notes/Report: PT, INR - Anti Coag Clinic 4.1 0.9-1.1 METER #: [id number] INTERNATIONAL NORMALIZED RATIO (INR) REFERENCE RANGES Reference [...] OC Reviewed date:04/12/2025 12:38:37 PM Interpretation: Performing Lab:[facility], [address] [place] [phone] Notes/Report: Prothrombin Time Whole Bld POC 49.7 11.1-13.5 sec INR WHOLE BLOOD POC Reviewed date:04/15/2025 04:00:41 PM Interpretation: Performing Lab:[facility], [address] [place] [phone] Notes/Report: PT, INR - [facility] 4.2 0.9-1.1 METER #: [id number] INTERNATIONAL NORMALIZED RATIO (INR) REFERENCE RANGES Reference [...] OC Reviewed date:04/15/2025 04:00:48 PM Interpretation: Performing Lab:[facility], [address] [place] [phone] Notes/Report: Prothrombin Time Whole Bld POC 50.7 11.1-13.5 sec INR WHOLE BLOOD POC Reviewed date:04/19/2025 01:36:50 PM Interpretation: Performing Lab:[facility], [address] [place] [phone] Notes/Report: PT, INR - [facility] 2.7 0.9-1.1 METER #: [id number] INTERNATIONAL NORMALIZED RATIO (INR) REFERENCE RANGES Reference [...] OC Reviewed date:04/19/2025 01:36:41 PM Interpretation: Performing Lab:[facility], [address] [place] [phone] Notes/Report: Prothrombin Time Whole Bld POC 31.9 11.1-13.5 sec INR WHOLE BLOOD POC Reviewed date:04/27/2025 12:19:28 PM Interpretation: Performing Lab:[facility], [address] [place] [phone] Notes/Report: PT, INR - [facility] 2.4 0.9-1.1 METER #: [id number] INTERNATIONAL NORMALIZED RATIO (INR) REFERENCE RANGES Reference [...] Prothrombin Time Whole Bld P OC Reviewed date:04/27/2025 12:19:14 PM Interpretation: Performing Lab:[facility], [address] [place] [id number] Notes/Report: Prothrombin Time Whole Bld POC 29.1 11.1-13.5 sec Reason For Referral Reason please verito nguyen for for fci and any other services he made need Diagnosis 1 Atrial fibrillation, unspecified type (I48.91) Diagnosis 2 COPD without exacerb ation (J44.9) Diagnosis 3 Bilateral leg weakne ss (R29.898) Referral Organization Jake Pepper MD Referring Provider First Name Jake Referring Provider Last Name Evgeny Referring Provider Speciality Internal M edicine Referred Provider [facility], [facility] [place] Referred Provider Specialty Unknown General Notes Minerva Duff 0 04/12/2025 11:55:29 AM > referral info faxed, Minerva Duff 04/12/2025 01:22:33 PM >this referral will not be used due to they do not take his insurance. Spoke with [facility] NE[facility] Montiel, she will be working on getting him [...] hrs for 30 days 01/26/2013 Not-Taking Nystatin 859097 UNIT/GM 1 application Externally Twice a day [...] Orally On ce a day Not-Taking Nystatin 043822 UNIT/GM 1 application Externally Twice a day for 10 days 03/19/2025 Active Zolpidem Tartrate 5 MG TAKE 1 TABLET BY MOUTH DAILY AT BEDTIME Orally Once a day for 30 days 03/09/2025 Active Doxycycline Monohydrate 100 MG 1 capsule Orally Once a day Not-Taking Nystatin-Triamcinolone 238738-8.1 UNIT/GM 1 application Externally Twice a day [...] red Fluarix Quadrivalent IM Intramuscular 06/24/2017 Administe luisito Fluarix Quadrivalent Unknown 08/05/2018 Administered At [facility] [facility] Influenza High Dose IM Intramuscular 08/03/2019 Administer [...] Problem Status W/U Status Risk Notes Problem 34337772 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 Problem Insomnia (571030938) Insomnia (G47.00) Active confirmed Problem 2919103 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) Active confirmed Problem Cataract (407034142) Unspecified cataract (H26.9) Active confirmed Problem Conductive hearing loss, bilateral (803239684) Conductive hearing loss, 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) Active confirmed Problem 9574833 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) Active confirmed Problem 85666430 Essential hypert ension (I10) Active confirmed Problem 348496317 Prostate cancer (C61) Active confirme d Problem 1245365 Psoriasis (L40.9) Active confirmed Problem 692976666 Lung nodule (R91.1) Active confirmed Problem Low testosterone (728009895) Low testosterone (E29.1) Active confirmed Problem 3944206454254867 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 Problem 568649478 Lung nodules (R91.8) Active confirmed Problem 614083336 Cervical disc di sease (M50.90) Active confirmed Problem 684935778 Tension headache (G44.209) Active confirmed Problem 1855742 Former smoker (Z87.891) Active confirmed Problem Acute exacerbation of chronic obstructive airways disease (995780456) COPD exacerbation (J44.1) Active confirmed Problem Postherpetic neuralgia (8779801) Post herpetic neuralgia (B02.29) Active confirmed Problem 38887535 Dysthymia (F34.1) Active confirmed Problem Iron deficiency anemia (84257441) Iron deficiency anemia, unspecified iron deficiency anemia type (D50.9) Active confirmed Problem 80347398 Atrial fibrillat ion, unspecified type (I48.91) Active confirmed Problem 7037466 Urinary obstruct ion (N13.9) Active confirmed Problem Leukocytosis (615863535) Elevated WBC count (D72.829) Active confirmed Problem 94608180 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 confirmed Problem 586663448 Pure hypercholesterolemia (E78.00) Active confirmed Problem 017628272 BMI 30.0-30.9,ad ult (Z68.30) Active confirmed Problem 254075870 COPD with exacer bation (J44.1) Active confirmed Problem 592240585 Hypertensive cri sis (I16.9) Active confirmed Problem Gout (54194583) Acute gout, unspecified cause, unspecified site (M10.9) Active confirmed Problem 38571360 COPD without exacerbation (J44.9) Active confirmed Problem Gout (83452196) Acute gout of ri ght knee, unspecified cause (M10.9) Active confirmed Problem 375135701 Mixed conductive and sensorineural hearing loss of [...] Jake Pepper MD [address] [place] [address] [id number] 08/20/2024 Jake Pepper Pure hypercholestero lemia E78.00 Jake Pepper MD [address] [place] [address] Drive [address] [place] [address] [id number] 02/19/2025 Jake Pepper Blood tests for rout ine general physical examination Z00.00 ; Essential hypertension I10 ; Pure hypercholesterolemia E78.00 and Iron deficiency anemia, unspecified iron deficiency anemia type D50.9 Jake Pepper MD [address] [place] [address] [id number] 07/07/2024 Jake Pepper Tension headache G44 .209 Jake Pepper MD [address] [place] [address] [id number] 08/27/2024 Jake Pepper Essential hypertensi on I10 ; Pure hypercholesterolemia E78.00 ; Atrial fibrillation, unspecified type I48.91 and COPD without exacerbation J44.9 Jake Pepper MD [address] [place] [address] [id number] 01/22/2025 Jake Pepper Panlobular emphysema J43.1 ; Atrial fibrillation, unspecified type I48.91 and Unspecified cataract H26.9 Jake Pepper MD [address] [place] [address] [id number] 02/26/2025 Jake Pepper Essential hypertensi on I10 ; Annual physical exam Z00.00 ; Panlobular emphysema J43.1 ; Pure hypercholesterolemia E78.00 ; Dysthymia F34.1 ; Iron deficiency anemia, unspecified iron deficiency anemia type D50.9 and Depression screening Z13.31 Jake Pepper MD [address] [place] [address] [id number] 03/18/2025 Jake Pepper Thrush B37.0 Jake Pepper MD [address] [place] [address] [id number] 03/29/2025 Jake Pepper Essential hypertensi on I10 ; Panlobular emphysema J43.1 ; Shingles B02.9 and Thrush B37.0 Jake Pepper MD [address] [place] [address] [id number] 04/05/2025 Jake Pepper Post herpetic neural dung B02.29 ; Skin tear of right forearm without complication, initial encounter S51.801A ; Essential hypertension I10 and Atrial fibrillation, unspecified type I48.91 Jake Pepper MD [address] [place] [address] [id number] 04/20/2025 Jake Pepper Post herpetic neural dung B02.29 ; Skin tear of right forearm without complication, initial encounter S51.801A and Atrial fibrillation, unspecified type I48.91 Jake Pepper MD [address] [place] [address] [id number] 12/21/2024 Jake Pepper MD [address] [place] [address] [id number] 02/19/2025 Jake Pepper MD [address] [place] [address] [id number] 03/19/2025 Jake Pepper MD [address] [place] [address] [id number] 03/26/2025 Jake Pepper MD [address] [place] [address] [id number] 04/01/2025 Jake Pepper MD [address] [place] [address] [id number] 04/13/2025 Jake Pepper MD [address] [place] [address] [id number] 05/07/2025 Jake Pepper MD [address] [place] [address] [id number] 06/07/2024 Jake Velaardianny Insomnia G47.00 Jake Pepper MD [address] [place] [address] [id number] 07/07/2024 Jake Pepper Insomnia G47.00 Jake Pepper MD [address] [place] [address] [id number] 08/06/2024 Jake Pepper Insomnia G47.00 Jake Pepper MD [address] [place] [address] [id number] 09/02/2024 Jake Pepper Insomnia G47.00 Jake Pepper MD [address] [place] [address] [id number] 10/05/2024 Jake Pepper Insomnia G47.00 Jake Pepper MD [address] [place] [address] [id number] 11/08/2024 Jake Pepper Insomnia G47.00 Jake Pepper MD [address] [place] [address] [id number] 12/07/2024 Jake Pepper Insomnia G47.00 Jake Pepper MD [address] [place] [address] [id number] 01/06/2025 Jake Velaardianny Insomnia G47.00 Jake Pepper MD [address] [place] [address] [id number] 02/05/2025 Jake Pepper Insomnia G47.00 Jake Pepper MD [address] [place] [address] [id number] 02/10/2025 Jake Pepper MD [address] [place] [address] [id number] 02/12/2025 Jake Pepper MD [address] [place], [place] [id number] 03/08/2025 Jake Pepper Insomnia G47.00 Assessments Encounter [...] Next Appt Details Provider Name:Jake Miller ier, 08/19/2025 07:00:00 AM, [address] [place] [address], [address], [id number], Provider Name:Jake Miller ier, 08/26/2025 10:00:00 AM, [address] [place] [address], [address], [id number], Provider Name:Jake Miller ier, 02/24/2026 07:15:00 AM, [address] [place] [address], [address], [phone], Provider Name:Jake Miller ier, 03/03/2026 09:30:00 AM, [address] [place] [address], [address], [id number], Insurance Providers Payer Name Payer Address Payer Phone Subscriber Number Group Number Insured Name Patient Relationship to Insured Coverage Start Date Coverage End Date [employer] [facility] [address] [place] [place] [place] [phone] [id number] Kalyan Nguyen Self - patient is the insured MEDICARE [employer] [address] [place] [address] [id number] Kalyan Nguyen Self - patient is the insured Medical (General) History Medical History History ICD Code 03/2004 - colonoscopy (repea t 10 years); colonoscopy [address] Rajput Smoker unmotivated to quit F17.210 biculatimide and finasteraide for prosta te cancer Surgical History Surgery Date(Month/Year) Repair of Umbilical Hernia w/Mesh (Dr. Darrell guido) 04/2019
--- NOTE | 2025-05-11 09:46 | MHC.OFFVISCO ---
Intake Intake Visit Reasons: Anticoagulation Allergies pneumococcal vaccine (PNEUMOCOCCAL VACCINE) Allergy (Intermediate, Verified 05/11/25 09:21) RASH amoxicillin (From Augmentin) Allergy (Unknown, Verified 05/11/25 09:21) Swelling clavulanic acid (From Augmentin) Allergy (Unknown, Verified 05/11/25 09:21) Swelling theophylline Adverse Reaction (Intermediate, Verified 05/11/25 09:21) Loss of Appetite Medication List - Last Reconciled 05/11/25 by Gertrudis Simeon RN albuterol sulfate 90 mcg/actuation 2 puffs PO Q2H PRN carvedilol 6.25 mg PO BID cyanocobalamin (vitamin B-12) 1,000 mcg PO DAILY furosemide 60 mg (1.5 x 40 mg) PO DAILY gabapentin mg PO ipratropium-albuterol 0.5 mg-3 mg(2.5 mg base)/3 mL 3 mL inhalation TID multivitamin (One Daily Multivitamin tablet) 1 tab PO DAILY nystatin 1 appl topical BID tamsulosin 0.4 mg PO BID 90 days warfarin See Protocol 6mg X 5DAYS, 3MG X 2 DAYS orally, Take medication 1-2 tabs as directed per anticoagulation clinic based on your INR Nursing Note INR 1.4 out of therapeutic range- r/t diet changes- ensure daily plus greens in his smoothiess Medications and supplements reviewed Patient status: 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 Pt and are aware that INR is low with risk of clotting and will go to ER with any stroke or clot s/sx Patient verbalizing understanding of instructions given. t/c to PCP spoke with nurse GUSTABO Dockery who will convey msg to PCP Anti-Coag Initial Assessment Social Hx Patient Tobacco Use Status: Former Tobacco user alcohol intake: never Alcohol intake frequency: 0-2 drinks per day Cardiovascular Hx: HTN, PA (non stemi) and Arrhythmias (afib) Lung Disease HX: COPD Musculoskeletal Hx: Gout Blood Disorder Hx: Hyperlipidemia GI Hx: Hemorrhoids Hx: Kidney Disease (naren) and Prostate (prostate cancer) Cancer HX: Yes Psych. 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
== END 2025-05-11 09:54 | disposition home or self-care (01) ==
LOC: HO.ACS 09:10
PROVIDERS: PCP Internal Medicine; Visit Provider Internal Medicine Medical Oncology
DX: Z79.01 Long term (current) use of anticoagulants (principal)

== ENCOUNTER → 2025-05-11 09:10 | Outpatient (BNVA) | payer MEDICARE, SELFPAY | PROVIDERS: PCP Internal Medicine; Visit Provider Internal Medicine Medical Oncology | DX: Z79.01 Long term (current) use of anticoagulants (principal) | CPT/HCPCS: 85610; 99211 ==

== ENCOUNTER 2025-05-14 09:24 | Outpatient (AMB) | payer MEDICARE, SELFPAY ==
--- OUTSIDE RECORDS SUMMARY | 2025-05-14 09:30 | XMS_ITS | Patient Health Record ---
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 Role Phone Jake Pepper Primary Care Provider [phone] Allergies Allergen (clinical drug ingredient) Drug/Non Drug Allergy documented on EMR Reaction Allergy Type Onset Date Status Lamisil rash Drug Allergy Active Vaccine product containing Streptococcus pneumoniae antigen (medicinal product) Pneumovax (uncoded) local reaction redness Allergy Active Results Component Value Reference Range Notes Liver Panel Reviewed date:08/20/2024 03:17:01 PM Interpretation: Performing Lab:[facility], [address] [place] [phone] Notes/Report: Bilirubin Total 0.7 0.0-1.0 mg/dL Bilirubin Direct 0.3 0.0-0.5 mg/dL Aspartate Amino Transferase 42 5-37 U/L Alanine Aminotransferase 24 0-40 U/L Total Protein 7.3 6.5-8.0 g/dL Albumin Level 3.9 3.5-5.0 g/dL Alkaline Phosphatase 94 39-117 U/L Lipid Panel with Reflex Reviewed date:08/20/2024 03:16:31 PM Interpretation: Performing Lab:[facility], [address] [place] [phone] Notes/Report: Triglycerides 135 <150 mg/dL Desirable Triglyceride: [...] ff Reviewed date:02/21/2025 05:38:19 PM Interpretation: Performing Lab:[facility], [address] [place] [phone] Notes/Report: White Blood Count 10.0 4.8-10.8 X10*3/uL [...] NRBC Abs Auto 0.000 0.0-0.012 X10*3/uL Comprehensive Ione. Panel Fa st Reviewed date:02/21/2025 05:34:56 PM Interpretation: Performing Lab:[facility], [address] [place] [phone] Notes/Report: Sodium 143 135-145 mmol/L Potassium 3.8 [...] PROFILE Reviewed date:02/19/2025 12:44:54 PM Interpretation: Performing Lab:[address] [address] Notes/Report: Iron 63 45-160 mcg/dL Total Iron Binding Capacity 271 228-428 mcg/dL Percent Iron Saturation 23 15-50 % Unsaturated Iron Binding 208 Lipid Panel Reviewed date:02/19/2025 12:44:14 PM Interpretation: Performing Lab:[facility], [address] [place] [phone] Notes/Report: Triglycerides 129 <150 mg/dL Desirable Triglyceride: [...] (Free>4and<10) Reviewed date:02/19/2025 12:45:04 PM Interpretation: Performing Lab:[facility], [address] [place] [phone] Notes/Report: PSA,Total (Free>4and<10) < 0.10 0.00-4.00 ng/mL [...] t Reviewed date:02/21/2025 05:39:18 PM Interpretation: Performing Lab:[facility], [address] [place] [phone] Notes/Report: Urine, Clean Catch Color Urine Dark Yellow Appearance Urine Clear PH 6.5 5.0-9.0 Glucose Urine UA Negative Negative mg/dL Urine Blood Negative Negative Specific Firth - Urine 1.025 1.005-1.025 Urine Protein 30 (1+) Neg-Trace mg/dL Urine Ketones Trace Negative mg/dL Nitrite Urine Negative Negative Leukocyte Esterase Urine Negative Negative RBC Urine 0-2 0-2 /HPF WBC Urine 0-5 0-5 /HPF Squamous Epithelial Cell Urine 0-2 0-2 /HPF Bacteria Urine None Seen None Seen Hyaline Casts Urine 0-2 0-2 /LPF INR WHOLE BLOOD POC Reviewed date:05/14/2024 10:10:53 AM Interpretation: Performing Lab:[facility], [address] [place] [phone] Notes/Report: PT, INR - Anti Coag Clinic 3.9 0.9-1.1 METER #: [id number] INTERNATIONAL NORMALIZED RATIO (INR) REFERENCE RANGES Reference [...] OC Reviewed date:05/14/2024 10:10:44 AM Interpretation: Performing Lab:[facility], [address] [place] [phone] Notes/Report: Prothrombin Time Whole Bld POC 46.7 11.1-13.5 sec INR WHOLE BLOOD POC Reviewed date:05/28/2024 12:29:45 PM Interpretation: Performing Lab:[facility], [address] [place] [phone] Notes/Report: PT, INR - Anti Coag Clinic 2.3 0.9-1.1 METER #: [id number] INTERNATIONAL NORMALIZED RATIO (INR) REFERENCE RANGES Reference [...] OC Reviewed date:05/28/2024 12:29:33 PM Interpretation: Performing Lab:[facility], [address] [place] [phone] Notes/Report: Prothrombin Time Whole Bld POC 27.5 11.1-13.5 sec INR WHOLE BLOOD POC Reviewed date:06/25/2024 11:32:23 AM Interpretation: Performing Lab:[facility], [address] [place] [phone] Notes/Report: PT, INR - Anti Coag Clinic 3.2 0.9-1.1 METER #: [id number] INTERNATIONAL NORMALIZED RATIO (INR) REFERENCE RANGES Reference [...] OC Reviewed date:06/25/2024 12:15:50 PM Interpretation: Performing Lab:[facility], [address] [place] [phone] Notes/Report: Prothrombin Time Whole Bld POC 38.6 11.1-13.5 sec INR WHOLE BLOOD POC Reviewed date:07/09/2024 11:05:08 AM Interpretation: Performing Lab:[facility], [address] [place] [phone] Notes/Report: PT, INR - Anti Coag Clinic 2.3 0.9-1.1 METER #: [id number] INTERNATIONAL NORMALIZED RATIO (INR) REFERENCE RANGES Reference [...] OC Reviewed date:07/09/2024 12:21:37 PM Interpretation: Performing Lab:[facility], [address] [place] [phone] Notes/Report: Prothrombin Time Whole Bld POC 27.5 11.1-13.5 sec INR WHOLE BLOOD POC Reviewed date:07/22/2024 02:12:43 PM Interpretation: Performing Lab:[facility], [address] [place] [phone] Notes/Report: PT, INR - Anti Coag Clinic 1.8 0.9-1.1 METER #: [id number] INTERNATIONAL NORMALIZED RATIO (INR) REFERENCE RANGES Reference [...] OC Reviewed date:07/22/2024 02:18:21 PM Interpretation: Performing Lab:[facility], [address] [place] [phone] Notes/Report: Prothrombin Time Whole Bld POC 21.8 11.1-13.5 sec INR WHOLE BLOOD POC Reviewed date:08/04/2024 12:06:47 PM Interpretation: Performing Lab:[facility], [address] [place] [phone] Notes/Report: PT, INR - Anti Coag Clinic 2.2 0.9-1.1 METER #: [id number] INTERNATIONAL NORMALIZED RATIO (INR) REFERENCE RANGES Reference [...] OC Reviewed date:08/04/2024 12:04:48 PM Interpretation: Performing Lab:[facility], [address] [place] [phone] Notes/Report: Prothrombin Time Whole Bld POC 25.9 11.1-13.5 sec Hold Gold Reviewed date:08/20/2024 12:43:27 PM Interpretation: Performing Lab:[facility], [address] [place] [phone] Notes/Report: Hold Gold See Note Specimen held untested for 24 hours; Call to request Chemistry testing. INR WHOLE BLOOD POC Reviewed date:08/25/2024 07:57:52 PM Interpretation: Performing Lab:[facility], [address] [place] [address] Notes/Report: PT, INR - Anti Coag Clinic 2.1 0.9-1.1 METER #: [id number] INTERNATIONAL NORMALIZED RATIO (INR) REFERENCE RANGES Reference [...] OC Reviewed date:08/25/2024 07:57:59 PM Interpretation: Performing Lab:[facility], [address] [place] [phone] Notes/Report: Prothrombin Time Whole Bld POC 25.6 11.1-13.5 sec INR WHOLE BLOOD POC Reviewed date:09/15/2024 09:59:14 AM Interpretation: Performing Lab:[facility], [address] [place] [phone] Notes/Report: PT, INR - Anti Coag Clinic 3.0 0.9-1.1 METER #: [id number] INTERNATIONAL NORMALIZED RATIO (INR) REFERENCE RANGES Reference [...] OC Reviewed date:09/15/2024 12:33:10 PM Interpretation: Performing Lab:[facility], [address] [place] [phone] Notes/Report: Prothrombin Time Whole Bld POC 35.5 11.1-13.5 sec INR WHOLE BLOOD POC Reviewed date:10/06/2024 04:22:44 PM Interpretation: Performing Lab:[facility], [address] [place] [phone] Notes/Report: PT, INR - Anti Coag Clinic 2.0 0.9-1.1 METER #: [id number] INTERNATIONAL NORMALIZED RATIO (INR) REFERENCE RANGES Reference [...] OC Reviewed date:10/06/2024 04:22:36 PM Interpretation: Performing Lab:[address] [phone] Notes/Report: Prothrombin Time Whole Bld POC 23.5 11.1-13.5 sec Prostate Specific Antigen Reviewed date:10/09/2024 11:16:46 AM Interpretation: Performing Lab:[facility], [address] [place] [phone] Notes/Report: Prostate Specific Antigen < 0.10 <0.05-4.0 ng/mL PSA methodology: Robert Alinity i Chemiluminescent Microparticle Immunoassay (CMIA) INR WHOLE BLOOD POC Reviewed date:10/27/2024 11:14:11 AM Interpretation: Performing Lab:[facility], [address] [place] [phone] Notes/Report: PT, INR - Anti Coag Clinic 2.0 0.9-1.1 METER #: [id number] INTERNATIONAL NORMALIZED RATIO (INR) REFERENCE RANGES Reference [...] OC Reviewed date:10/27/2024 11:14:04 AM Interpretation: Performing Lab:[facility], [address] [place] [phone] Notes/Report: Prothrombin Time Whole Bld POC 23.7 11.1-13.5 sec INR WHOLE BLOOD POC Reviewed date:11/10/2024 12:18:48 PM Interpretation: Performing Lab:[facility], [address] [place] [phone] Notes/Report: PT, INR - Anti Coag Clinic 1.8 0.9-1.1 METER #: [id number] INTERNATIONAL NORMALIZED RATIO (INR) REFERENCE RANGES Reference [...] OC Reviewed date:11/10/2024 12:18:37 PM Interpretation: Performing Lab:[facility], [address] [place] [phone] Notes/Report: Prothrombin Time Whole Bld POC 21.5 11.1-13.5 sec INR WHOLE BLOOD POC Reviewed date:11/24/2024 12:04:29 PM Interpretation: Performing Lab:[facility], [address] [place] [phone] Notes/Report: PT, INR - Anti Coag Clinic 2.4 0.9-1.1 METER #: [id number] INTERNATIONAL NORMALIZED RATIO (INR) REFERENCE RANGES Reference [...] OC Reviewed date:11/24/2024 12:04:21 PM Interpretation: Performing Lab:[facility], [address] [place] [phone] Notes/Report: Prothrombin Time Whole Bld POC 28.2 11.1-13.5 sec INR WHOLE BLOOD POC Reviewed date:12/17/2024 12:38:14 PM Interpretation: Performing Lab:[facility], [address] [place] [phone] Notes/Report: PT, INR - Anti Coag Clinic 2.0 0.9-1.1 METER #: [id number] INTERNATIONAL NORMALIZED RATIO (INR) REFERENCE RANGES Reference [...] OC Reviewed date:12/17/2024 12:51:29 PM Interpretation: Performing Lab:[facility], [address] [place] [phone] Notes/Report: Prothrombin Time Whole Bld POC 23.9 11.1-13.5 sec INR WHOLE BLOOD POC Reviewed date:01/07/2025 10:59:51 AM Interpretation: Performing Lab:[facility], [address] [place] [phone] Notes/Report: PT, INR - Anti Coag Clinic 2.2 0.9-1.1 METER #: [id number] INTERNATIONAL NORMALIZED RATIO (INR) REFERENCE RANGES Reference [...] OC Reviewed date:01/07/2025 10:59:22 AM Interpretation: Performing Lab:[facility], [address] [place] [phone] Notes/Report: Prothrombin Time Whole Bld POC 26.4 11.1-13.5 sec INR WHOLE BLOOD POC Reviewed date:02/04/2025 02:25:43 PM Interpretation: Performing Lab:[facility], [address] [place] [phone] Notes/Report: PT, INR - Anti Coag Clinic 3.3 0.9-1.1 METER #: [id number] INTERNATIONAL NORMALIZED RATIO (INR) REFERENCE RANGES Reference [...] OC Reviewed date:02/04/2025 11:35:29 AM Interpretation: Performing Lab:[facility], [address] [place] [phone] Notes/Report: Prothrombin Time Whole Bld POC 39.1 11.1-13.5 sec INR WHOLE BLOOD POC Reviewed date:03/04/2025 10:01:13 AM Interpretation: Performing Lab:[facility] [address] Notes/Report: PT, INR - Anti Coag Clinic 2.6 0.9-1.1 METER #: [id number] INTERNATIONAL NORMALIZED RATIO (INR) REFERENCE RANGES Reference [...] OC Reviewed date:03/04/2025 10:01:06 AM Interpretation: Performing Lab:[address] [phone] Notes/Report: Prothrombin Time Whole Bld POC 31.0 11.1-13.5 sec Complete Blood Count Auto Di ff Reviewed date:03/21/2025 07:34:37 PM Interpretation: Performing Lab:[address] [address] Notes/Report: White Blood Count 7.1 4.8-10.8 X10*3/uL [...] INR Reviewed date:03/21/2025 07:30:57 PM Interpretation: Performing Lab:[address] [address] Notes/Report: Prothrombin Time 30.9 10.9-12.4 SEC INTERNATIONAL [...] Microscopic Reviewed date:03/21/2025 07:33:45 PM Interpretation: Performing Lab:[address] [address] Notes/Report: Color Urine Yellow Appearance Urine Clear PH 6.5 5.0-9.0 Glucose Urine UA Negative Negative mg/dL Urine Blood Negative Negative Specific Firth - Urine >= 1.030 1.005-1.025 Urine Protein 100 (2+) Neg-Trace mg/dL Urine Ketones 15 Negative mg/dL Nitrite Urine Negative Negative Leukocyte Esterase Urine Negative Negative RBC Urine 0-2 0-2 /HPF WBC Urine 0-5 0-5 /HPF Squamous Epithelial Cell Urine 3-5 0-2 /HPF Bacteria Urine None Seen None Seen Hyaline Casts Urine 11-20 0-2 /LPF Comprehensive Met. Panel Reviewed date:03/21/2025 07:33:21 PM Interpretation: Performing Lab:[address] [address] Notes/Report: Sodium 143 135-145 mmol/L Potassium 3.8 [...] Acid Reviewed date:03/21/2025 07:30:17 PM Interpretation: Performing Lab:[facility], [address] [place] [phone] Notes/Report: Lactic Acid 0.9 0.5-2.0 mmol/L Magnesium Reviewed date:03/21/2025 07:31:06 PM Interpretation: Performing Lab:[address] [address] Notes/Report: Magnesium 1.9 1.6-2.6 mg/dL Troponin-I High Sensitivity Reviewed date:03/21/2025 07:30:47 PM Interpretation: Performing Lab:[address] [place] [address] Notes/Report: Troponin-I High Sensitivity 29.0 <3.5-35.0 ng/L The Roebrt high sensitivity Troponin-I results should be used in conjunction with other diagnostic information such as ECG, clinical observations and information, and patient symptoms to aid in the diagnosis of [place]. B Type Natriuretic Peptide Reviewed date:03/21/2025 07:31:15 PM Interpretation: Performing Lab:[address] [address] Notes/Report: B Type Natriuretic Peptide 214 <100 pg/mL Gram stain Reviewed date:03/23/2025 10:18:58 AM Interpretation: Performing Lab:[address] [address] Notes/Report: Gram stain Gram stain results: Gram stain No polys Gram stain 2+ epithelial cells Gram stain 3+ Gram-positive cocci SARS-CoV2/FLU/RSV Reviewed date:03/21/2025 07:30:40 PM Interpretation: Performing Lab:[facility], [address] [place] [phone] Notes/Report: Influenza A PCR NEGATIVE Negative Influenza [...] by authorized laboratories. Testing performed on the [employer] GeneXpert utilizing real-time RT-PCR. All SARS CoV2 and positive influenza A/B results are reported to [facility]. Blood Culture (First) Reviewed date:03/26/2025 04:21:01 PM Interpretation: Performing Lab:[address] [address] Notes/Report: Blood Culture (First) No growth after 5 days. Blood Culture (Second) Reviewed date:03/26/2025 04:21:09 PM Interpretation: Performing Lab:[facility], [address] [place] [phone] Notes/Report: Blood Culture (Second) No growth after 5 days. Venous Blood Gases - POC Reviewed date:03/21/2025 07:30:11 PM Interpretation: Performing Lab:[facility], [address] [place] [address] Notes/Report: VBG pH 7.54 7.32-7.43 METER #: [id number] additional_comment: Cb samantha VBG pCO2 56 METER #: [id number] additional_comment: Cb samantha VBG pO2 56 METER #: [id number] additional_comment: Sushant singh VBG Base Excess 22.3 METER #: [id number] additional_comment: Cb samantha VBG HCO3 48 22-26 mmol/L METER #: [id number] additional_comment: Cb samantha VBG O2 % Saturation 88.0 METER #: [id number] additional_comment: Sushant singh Routine Culture Reviewed date:03/23/2025 10:20:42 AM Interpretation: Performing Lab:[facility], [address] [place] [address] Notes/Report: Routine Culture Report - external Routine Culture 4+ Mixed skin ricci CT soft tissue neck w con Reviewed date:03/21/2025 07:30:02 PM Interpretation: Performing Lab: Notes/Report: [address] [address] [address] Scan Report Signed Patient: Kalyan Nguyen MR#: [id number] 2742 : 1940 Acct:[id number] Age/Sex: 84 / M ADM Date: 03/20/25 Loc: [facility]: Zoraida Donovan MD Ordering Physician: Nilsa Card Date of Service: 03/20/25 Procedure(s): CT soft tissue neck w IV con Accession Number(s): [id number] cc: Nilsa Card; Jake Pepper MD Report Number: [id number]: Total DLP = 599.99 mGy-cm CLINICAL HISTORY: [...] in OV> 03/20/252104 DD/ 03 TD/TT: 03/20/252103 Meter Tester: [place] [address] [address] Scan Report Signed Patient: Miguel Nguyen MR#: [id number] 2742 : 1940 Acct:[id number] Age/Sex: 84 / M ADM Date: 03/20/25 [facility] [address]: Zoraida Donovan MD [facility] of Service: 03/20/25 Procedure(s): CT sof t tissue neck w IV con Accession Number(s): [id number] cc: Nilsa CardSTALIN; Jake Pepper MD Report Number: [id number]: Total DLP = 599.99 mGy-cm CLINICAL HISTORY: [...] in OV> 03/20/252104 DD/ 03 TD/TT: 03/20/252103 Meter Tester: CT head/brain wo con Reviewed date:03/21/2025 07:29:22 PM Interpretation: Performing Lab: Notes/Report: [address] [address] [address] Scan Report Signed Patient: Kalyan Nguyen MR#: [id number] 2742 : 1940 Acct:[id number] Age/Sex: 84 / M ADM Date: 03/20/25 [facility]: Zoraida Donovan MD Ordering Physician: Nilsa Card [facility] Date of Service: 03/20/25 Procedure(s): CT head/brain wo IV con Accession Number(s): [id number] cc: Nilsa Card; Jake Pepper MD Report Number: [id number]: Total DLP = 914.64 mGy-cm CLINICAL HISTORY: [...] in OV> 03/20/252105 DD/ 04 TD/TT: 03/20/252104 Meter Tester: [place] [address] CT Scan Report Signed Patient: Miguel Nguyen MR#: [id number] 2742 : 1940 Acct:[id number] Age/Sex: 84 / M ADM Date: 03/20/25 Loc: [place] [address]: Zoraida Donovan MD Ordering Physician: Nilsa Card Date of Service: 03/20/25 Procedure(s): CT head/brain wo IV con Accession Number(s): [id number] cc: Nilsa Card; Jake Pepper MD Report Number: [id number]: Total DLP = 914.64 mGy-cm CLINICAL HISTORY: [...] in OV> 03/20/252105 DD/ 04 TD/TT: 03/20/252104 Meter Tester: XR chest 2V Reviewed date:03/21/2025 07:32:02 PM Interpretation: Performing Lab: Notes/Report: [address] [address] XRay Report Signed Patient: Kalyan Nguyen MR#: [id number] 2742 : 1940 Acct:[id number] Age/Sex: 84 / M ADM Date: 03/20/25 Loc: [facility] Attending Dr: Ordering Physician: Lisette Graves NP Date of Service: 03/20/25 Procedure(s): XR chest 2V Accession Number(s): [id number] cc: Jake Pepper MD; Lisette Graves NP [...] in OV> 03/20/258 DD/ 26 TD/TT: 03/20/251726 Meter Tester: [address] [address] XRay Report Signed Patient: Miguel Nguyen MR#: [id number] 2742 : 1940 Acct:[id number] Age/Sex: 84 / M ADM Date: 03/20/25 Loc: [facility] Attending Dr: Ordering Physician: Lisette Graves NP Date of Service: 03/20/25 Procedure(s): XR rhina st 2V Accession Number(s): [id number] cc: Jake Pepper MD; Lisette Graves NP [...] in OV> 03/20/251727 DD/ 26 TD/TT: 03/20/251726 Meter Tester: Troponin-I High Sensitivity Reviewed date:03/21/2025 07:31:34 PM Interpretation: Performing Lab:[facility], [address] [place] [phone] Notes/Report: Troponin-I High Sensitivity 24.4 <3.5-35.0 ng/L The Robert high sensitivity Troponin-I results should be used in conjunction with other diagnostic information such as ECG, clinical observations and information, and patient symptoms to aid in the diagnosis of [place]. Complete Blood Count Auto Di ff Reviewed date:03/21/2025 07:34:16 PM Interpretation: Performing Lab:[facility], [address] [place] [address] Notes/Report: White Blood Count 6.6 4.8-10.8 X10*3/uL [...] INR Reviewed date:03/21/2025 07:32:30 PM Interpretation: Performing Lab:[address] [address] Notes/Report: Prothrombin Time 41.4 10.9-12.4 SEC INTERNATIONAL [...] Panel Reviewed date:03/21/2025 07:32:58 PM Interpretation: Performing Lab:[facility], [address] [place] [address] Notes/Report: Sodium 142 135-145 mmol/L Potassium 3.4 [...] T4 Reviewed date:03/21/2025 07:31:25 PM Interpretation: Performing Lab:[address] [address] Notes/Report: TSH reflex Free T4 1.34 0.32-4.0 uIU/mL Respiratory Panel Reviewed date:03/21/2025 07:28:57 PM Interpretation: Performing Lab:[address] [address] Notes/Report: Adenovirus PCR Not Detected Not Detect. [...] testing should be considered. Results reported to [facility]. This test has been authorized by the [...] is performed by Multiplexed PCR, utilizing the [employer] Array. Prothrombin Time INR Reviewed date:03/22/2025 11:40:38 AM Interpretation: Performing Lab:[facility], [address] [place] [phone] Notes/Report: Prothrombin Time 55.7 10.9-12.4 SEC INTERNATIONAL [...] Panel Reviewed date:03/22/2025 12:35:51 PM Interpretation: Performing Lab:[facility], [address] [place] [address] Notes/Report: Sodium 138 135-145 mmol/L Potassium 4.1 [...] Random Reviewed date:03/22/2025 04:33:37 PM Interpretation: Performing Lab:[facility], [address] [place] [address] Notes/Report: Vancomycin Random 13.0 15-20 mcg/mL Prothrombin Time INR Reviewed date:03/23/2025 10:14:22 AM Interpretation: Performing Lab:[facility], [address] [place] [address] Notes/Report: Prothrombin Time 49.6 10.9-12.4 SEC INTERNATIONAL [...] Creatinine Reviewed date:03/23/2025 10:14:33 AM Interpretation: Performing Lab:[facility], [address] [place] [address] Notes/Report: Creatinine 0.99 0.5-1.4 mg/dL Creatinine Clr [...] POC Reviewed date:04/01/2025 02:15:11 PM Interpretation: Performing Lab:[facility], [address] [place] [address] Notes/Report: PT, INR - Anti Coag Clinic 5.4 0.9-1.1 METER #: [id number] Asymptomatic Cleaned Meter Doctor Notified INTERNATIONAL NORMALIZED [...] OC Reviewed date:04/01/2025 02:14:25 PM Interpretation: Performing Lab:[facility], [address] [place] [phone] Notes/Report: Prothrombin Time Whole Bld POC 65.0 11.1-13.5 sec INR WHOLE BLOOD POC Reviewed date:04/05/2025 01:00:12 PM Interpretation: Performing Lab:[facility], [address] [place] [phone] Notes/Report: PT, INR - [facility] 4.7 0.9-1.1 METER #: [id number] INTERNATIONAL NORMALIZED RATIO (INR) REFERENCE RANGES Reference [...] OC Reviewed date:04/05/2025 01:00:04 PM Interpretation: Performing Lab:[facility], [address] [place] [phone] Notes/Report: Prothrombin Time Whole Bld POC 55.9 11.1-13.5 sec INR WHOLE BLOOD POC Reviewed date:04/12/2025 12:38:27 PM Interpretation: Performing Lab:[facility], [address] [place] [phone] Notes/Report: PT, INR - [facility] 4.1 0.9-1.1 METER #: [id number] INTERNATIONAL NORMALIZED RATIO (INR) REFERENCE RANGES Reference [...] OC Reviewed date:04/12/2025 12:38:37 PM Interpretation: Performing Lab:[facility], [address] [place] [phone] Notes/Report: Prothrombin Time Whole Bld POC 49.7 11.1-13.5 sec INR WHOLE BLOOD POC Reviewed date:04/15/2025 04:00:41 PM Interpretation: Performing Lab:[facility], [address] [place] [phone] Notes/Report: PT, INR - [facility] 4.2 0.9-1.1 METER #: [id number] INTERNATIONAL NORMALIZED RATIO (INR) REFERENCE RANGES Reference [...] OC Reviewed date:04/15/2025 04:00:48 PM Interpretation: Performing Lab:[facility], [address] [place] [phone] Notes/Report: Prothrombin Time Whole Bld POC 50.7 11.1-13.5 sec INR WHOLE BLOOD POC Reviewed date:04/19/2025 01:36:50 PM Interpretation: Performing Lab:[facility], [address] [place] [phone] Notes/Report: PT, INR - [facility] 2.7 0.9-1.1 METER #: [id number] INTERNATIONAL NORMALIZED RATIO (INR) REFERENCE RANGES Reference [...] OC Reviewed date:04/19/2025 01:36:41 PM Interpretation: Performing Lab:[facility], [address] [place] [phone] Notes/Report: Prothrombin Time Whole Bld POC 31.9 11.1-13.5 sec INR WHOLE BLOOD POC Reviewed date:04/27/2025 12:19:28 PM Interpretation: Performing Lab:[facility], [address] [place] [phone] Notes/Report: PT, INR - Anti Coag Clinic 2.4 0.9-1.1 METER #: [id number] INTERNATIONAL NORMALIZED RATIO (INR) REFERENCE RANGES Reference [...] OC Reviewed date:04/27/2025 12:19:14 PM Interpretation: Performing Lab:[facility], [address] [place] [phone] Notes/Report: Prothrombin Time Whole Bld POC 29.1 11.1-13.5 sec INR WHOLE BLOOD POC Reviewed date:05/11/2025 02:35:09 PM Interpretation: Performing Lab:[facility], [address] [place] [phone] Notes/Report: PT, INR - Anti Coag Clinic 1.4 0.9-1.1 METER #: [id number] Asymptomatic Doctor Notified INTERNATIONAL NORMALIZED RATIO (INR) REFERENCE [...] Prothrombin Time Whole Bld P OC Reviewed date:05/11/2025 02:31:58 PM Interpretation: Performing Lab:[address] [phone] Notes/Report: Prothrombin Time Whole Bld POC 16.7 11.1-13.5 sec Reason For Referral Reason please verito nguyen for for custodial and any other services he made need Diagnosis 1 Atrial fibrillation, unspecified type (I48.91) Diagnosis 2 COPD without exacerb ation (J44.9) Diagnosis 3 Bilateral leg weakne ss (R29.898) Referral Organization Jake Pepper MD Referring Provider First Name Jake Referring Provider Last Name Evgeny Referring Provider Speciality Internal M edicine Referred Provider [facility] Referred Provider Specialty Unknown General Notes OmegaMinerva schmidt 0 04/12/2025 11:55:29 AM > referral info faxed, Minerva Duff 04/12/2025 01:22:33 PM >this referral will not be used due to they do not take his insurance. Spoke with [facility] Wheelerie, she will be working on getting him [...] hrs for 30 days 01/26/2013 Not-Taking Nystatin 180857 UNIT/GM 1 application Externally Twice a day [...] Orally On ce a day Not-Taking Nystatin 651695 UNIT/GM 1 application Externally Twice a day for 10 days 03/19/2025 Active Zolpidem Tartrate 5 MG TAKE 1 TABLET BY MOUTH DAILY AT BEDTIME Orally Once a day for 30 days 03/09/2025 Active Doxycycline Monohydrate 100 MG 1 capsule Orally Once a day Not-Taking Nystatin-Triamcinolone 490595-9.1 UNIT/GM 1 application Externally Twice a day [...] red Fluarix Quadrivalent Unknown 08/05/2018 Administered At [facility] Influenza High Dose IM Intramuscular 08/03/2019 [...] Problem Status W/U Status Risk Notes Problem 41555643 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 Problem Insomnia (518611174) Insomnia (G47.00) Active confirmed Problem 5618556 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) Active confirmed Problem Cataract (205517433) Unspecified cataract (H26.9) Active confirmed Problem Conductive hearing loss, bilateral (987517214) Conductive hearing loss, 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) Active confirmed Problem 0718284 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) Active confirmed Problem 91990752 Essential hypert ension (I10) Active confirmed Problem 943637996 Prostate cancer (C61) Active confirme d Problem 3967896 Psoriasis (L40.9) Active confirmed Problem 309607791 Lung nodule (R91.1) Active confirmed Problem Low testosterone (254865033) Low testosterone (E29.1) Active confirmed Problem 4859803643739753 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 Problem 883008763 Lung nodules (R91.8) Active confirmed Problem 945986023 Cervical disc di sease (M50.90) Active confirmed Problem 069509966 Tension headache (G44.209) Active confirmed Problem 7409276 Former smoker (Z87.891) Active confirmed Problem Acute exacerbation of chronic obstructive airways disease (619615696) COPD exacerbation (J44.1) Active confirmed Problem Postherpetic neuralgia (8031475) Post herpetic neuralgia (B02.29) Active confirmed Problem 29716262 Dysthymia (F34.1) Active confirmed Problem Iron deficiency anemia (79413540) Iron deficiency anemia, unspecified iron deficiency anemia type (D50.9) Active confirmed Problem 10257305 Atrial fibrillat ion, unspecified type (I48.91) Active confirmed Problem 2126646 Urinary obstruct ion (N13.9) Active confirmed Problem Leukocytosis (122814947) Elevated WBC count (D72.829) Active confirmed Problem 68841230 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 confirmed Problem 388319190 Pure hypercholesterolemia (E78.00) Active confirmed Problem 720629726 BMI 30.0-30.9,ad ult (Z68.30) Active confirmed Problem 760429831 COPD with exacer bation (J44.1) Active confirmed Problem 480150388 Hypertensive cri sis (I16.9) Active confirmed Problem Gout (70663575) Acute gout, unspecified cause, unspecified site (M10.9) Active confirmed Problem 21104209 COPD without exacerbation (J44.9) Active confirmed Problem Gout (49278403) Acute gout of ri ght knee, unspecified cause (M10.9) Active confirmed Problem 375285700 Mixed conductive and sensorineural hearing loss of [...] Pepper MD [address] [place] [id number] 08/20/2024 Jake Pepper Pure hypercholestero lemia E78.00 Jake Pepper MD [address] [place] [address] [id number] 02/19/2025 Jake Pepper Blood tests for rout ine general physical examination Z00.00 ; Essential hypertension I10 ; Pure hypercholesterolemia E78.00 and Iron deficiency anemia, unspecified iron deficiency anemia type D50.9 Jake Pepper MD [address] [place] [address] [id number] 07/07/2024 Jake Pepper Tension headache G44 .209 Jake Pepper MD [address] [place] [address] [id number] 08/27/2024 Jake Pepper Essential hypertensi on I10 ; Pure hypercholesterolemia E78.00 ; Atrial fibrillation, unspecified type I48.91 and COPD without exacerbation J44.9 Jake Pepper MD [address] [place] [address] [id number] 01/22/2025 Jake Pepper Panlobular emphysema J43.1 ; Atrial fibrillation, unspecified type I48.91 and Unspecified cataract H26.9 Jake Pepper MD [address] [place] [address] [id number] 02/26/2025 Jake Pepper Essential hypertensi on I10 ; Annual physical exam Z00.00 ; Panlobular emphysema J43.1 ; Pure hypercholesterolemia E78.00 ; Dysthymia F34.1 ; Iron deficiency anemia, unspecified iron deficiency anemia type D50.9 and Depression screening Z13.31 Jake Pepper MD [address] [place] [address] [id number] 03/18/2025 Jake Pepper Thrush B37.0 Jake Pepper MD [address] [place] [address] [id number] 03/29/2025 Jake Pepper Essential hypertensi on I10 ; Panlobular emphysema J43.1 ; Shingles B02.9 and Thrush B37.0 Jake Pepper MD [address] [place] [address] [id number] 04/05/2025 Jake Pepper Post herpetic neural dung B02.29 ; Skin tear of right forearm without complication, initial encounter S51.801A ; Essential hypertension I10 and Atrial fibrillation, unspecified type I48.91 Jake Pepper MD [address] [place] [address] [id number] 04/20/2025 Jake Velaardianny Post herpetic neural dung B02.29 ; Skin tear of right forearm without complication, initial encounter S51.801A and Atrial fibrillation, unspecified type I48.91 Jake Pepper MD [address] [place] [address] [id number] 12/21/2024 Jake Pepper MD [address] [place] [address] [id number] 02/19/2025 Jake Pepper MD [address] [place] [address] [id number] 03/19/2025 Jake Pepper MD [address] [place] [address] [id number] 03/26/2025 Jake Pepper MD [address] [place] [address] [id number] 04/01/2025 Jake Pepper MD [address] [place] [address] [id number] 04/13/2025 Jake Pepper MD [address] [place] [address] [id number] 05/07/2025 Jake Pepper MD [address] [place] [address] [id number] 05/11/2025 Jake Pepper MD [address] [place] [address] [id number] 06/07/2024 Jake Pepper Insomnia G47.00 Jake Pepper MD [address] [place] [address] [id number] 07/07/2024 Jake Pepper Insomnia G47.00 Jake Pepper MD [address] [place] [address] [id number] 08/06/2024 Jake Pepper Insomnia G47.00 Jake Pepper MD [address] [place] [address] [id number] 09/02/2024 Jake Bombardier Insomnia G47.00 Jake Pepper MD [address] [place] [address] [id number] 10/05/2024 Jake Bombardier Insomnia G47.00 Jake Pepper MD [address] [place] [address] [id number] 11/08/2024 Jake Bombardier Insomnia G47.00 Jake Pepper MD [address] [place] [address] [id number] 12/07/2024 Jake Bombardier Insomnia G47.00 Jake Pepper MD [address] [place] [address] [id number] 01/06/2025 Jake Bombardier Insomnia G47.00 Jake Pepper MD [address] [place] [address] [id number] 02/05/2025 Jake Bombardier Insomnia G47.00 Jake Pepper MD [address] [place] [address] [id number] 02/10/2025 Jake Pepper MD [address] [place] [address] [id number] 02/12/2025 Jake Pepper MD [address] [place] [address] [id number] 03/08/2025 Jake Bombardier Insomnia G47.00 Assessments Encounter [...] 07:00:00 AM, [address], [address], [place], [place], [id number], Provider Name:Jake Miller ier, 08/26/2025 10:00:00 AM, [address], [place], [place], [id number], Provider Name:Jake Miller ier, 02/24/2026 07:15:00 AM, [address], [address], [place], [place], [id number], Provider Name:Jake Miller ier, 03/03/2026 09:30:00 AM, [address] [facility], [address], [place], [place], [id number], Insurance Providers Payer Name Payer Address Payer Phone Subscriber Number Group Number Insured Name Patient Relationship to Insured Coverage Start Date Coverage End Date [employer] [address] [place] [phone] [id number] Kalyan Nguyen Self - patient is the insured MEDICARE [address] [place] [address] [id number] Wendy Kalyan Self - patient is the insured Medical (General) History Medical History History ICD Code 03/2004 - colonoscopy (repea t 10 years); colonoscopy [address] Rajput Smoker unmotivated to quit F17.210 biculatimide and finasteraide for prosta te cancer Surgical History Surgery Date(Month/Year) Repair of Umbilical Hernia w/Mesh (Dr. Darrell guido) 04/2019
--- OUTSIDE RECORDS SUMMARY | 2025-05-14 09:30 | XMS_ITS | Patient Health Record ---
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 Allergies Allergen (clinical drug ingredient) [...] Problem Status W/U Status Risk Notes Problem 255146721 Colon cancer screening (V76.51) Active confirmed Problem 244177112 Aspirin long-term use (V58.66) Active confirmed Plan Of Treatment Future Test Test Name Order Date COLONOSCOPY 07/29/2014 Insurance Providers Payer Name Payer Address Payer Phone Subscriber Number Group Number Insured Name Patient Relationship to Insured Coverage Start Date Coverage End Date [facility] [address] [place] [phone] [id number] CORNELIA JUAREZ Self - patient is the insured Medicare of [place] [employer] [address] [place] [address] [id number] CORNELIA JUAREZ Self - patient is the insured Medical (General) History Medical History History ICD Code prostate problems hypertension elevated cholesterol Surgical History Surgery Date(Month/Year) back surgery knee surgery
[2025-05-14 09:48] LABS: Prothrombin Time Whole Bld POC 19.6 sec (11.1-13.5); ~PT, ~INR - Anti Coag Clinic 1.6 (0.9-1.1)
--- NOTE | 2025-05-14 09:58 | MHC.OFFVISCO ---
Intake Intake Visit Reasons: Anticoagulation Allergies pneumococcal vaccine (PNEUMOCOCCAL VACCINE) Allergy (Intermediate, Verified 05/14/25 09:42) RASH amoxicillin (From Augmentin) Allergy (Unknown, Verified 05/14/25 09:42) Swelling clavulanic acid (From Augmentin) Allergy (Unknown, Verified 05/14/25 09:42) Swelling theophylline Adverse Reaction (Intermediate, Verified 05/14/25 09:42) Loss of Appetite Medication List - Last Reconciled 05/14/25 by Imani Mckeon RN albuterol sulfate 90 mcg/actuation 2 puffs PO Q2H PRN carvedilol 6.25 mg PO BID cyanocobalamin (vitamin B-12) 1,000 mcg PO DAILY furosemide 60 mg (1.5 x 40 mg) PO DAILY gabapentin mg PO ipratropium-albuterol 0.5 mg-3 mg(2.5 mg base)/3 mL 3 mL inhalation TID multivitamin (One Daily Multivitamin tablet) 1 tab PO DAILY nystatin 1 appl topical BID tamsulosin 0.4 mg PO BID 90 days warfarin See Protocol 6mg X 5DAYS, 3MG X 2 DAYS orally, Take medication 1-2 tabs as directed per anticoagulation clinic based on your INR Nursing Note Pt to ACS in WC on portable O2 accompanied by INR: 1.6 in therapeutic range of 2-3 Previous INR 1.4 on 05/11/25 Medications and supplements reviewed No changes in health, medications, or supplements, Pt is taking ensure daily which contains Vit K and could be keeping the INR low. Instructed pt to continue ensure and warfarin dosage will be adjusted accordingly. Denies any signs and symptoms of bleeding or bruising or clotting. Bleeding, bruising, clotting discussed Nutritional guidance given to hold greens next 3 days then resume usual diet Dose: increase today's dose to 9mg then increase weekly dose by 6mg. Pt will take 6mg daily. F/U INR: 1 week Patient verbalizes understanding of instructions given Anti-Coag Initial Assessment Social Hx Patient Tobacco Use Status: Former Tobacco user alcohol intake: never Alcohol intake frequency: 0-2 drinks per day Cardiovascular Hx: HTN, ID (non stemi) and Arrhythmias (afib) Lung Disease HX: COPD Musculoskeletal Hx: Gout Blood Disorder Hx: Hyperlipidemia GI Hx: Hemorrhoids Hx: Kidney Disease (naren) and Prostate (prostate cancer) Cancer HX: Yes Psych. Illness/Depression: No Coding Level of Care Code Est Patient Level 1 Diagnoses Current use of anticoagulant therapy Z79.01 Results AMB INR Fingerstick AMB INR Fingerstick 1.6 Last Edit by Imani Mckeon RN on 05/14/25 09:52 interface delay Assessment & Plan Assessment & Plan (1) Current use of anticoagulant therapy: Code(s): Z79.01 - emt intermediate (current) use of anticoagulants Category: Medical
== END 2025-05-14 10:03 | disposition home or self-care (01) ==
LOC: HO.ACS 09:24
PROVIDERS: PCP Internal Medicine; Visit Provider Internal Medicine Medical Oncology
DX: Z79.01 Long term (current) use of anticoagulants (principal)

== ENCOUNTER → 2025-05-14 09:24 | Outpatient (BNVA) | payer MEDICARE, SELFPAY | PROVIDERS: PCP Internal Medicine; Visit Provider Internal Medicine Medical Oncology | DX: Z79.01 Long term (current) use of anticoagulants (principal) | CPT/HCPCS: 85610; 99211 ==

== ENCOUNTER 2025-05-20 10:13 | Outpatient (AMB) | payer MEDICARE, SELFPAY ==
[2025-05-20 10:37] LABS: Prothrombin Time Whole Bld POC 19.8 sec (11.1-13.5); ~PT, ~INR - Anti Coag Clinic 1.6 (0.9-1.1)
--- NOTE | 2025-05-20 10:52 | MHC.OFFVISCO ---
Intake Intake Visit Reasons: Anticoagulation Allergies pneumococcal vaccine (PNEUMOCOCCAL VACCINE) Allergy (Intermediate, Verified 05/20/25 10:29) RASH amoxicillin (From Augmentin) Allergy (Unknown, Verified 05/20/25 10:29) Swelling clavulanic acid (From Augmentin) Allergy (Unknown, Verified 05/20/25 10:29) Swelling theophylline Adverse Reaction (Intermediate, Verified 05/20/25 10:29) Loss of Appetite Medication List - Last Reconciled 05/20/25 by Gertrudis Simeon RN albuterol sulfate 90 mcg/actuation 2 puffs PO Q2H PRN carvedilol 6.25 mg PO BID cyanocobalamin (vitamin B-12) 1,000 mcg PO DAILY furosemide 60 mg (1.5 x 40 mg) PO DAILY gabapentin mg PO ipratropium-albuterol 0.5 mg-3 mg(2.5 mg base)/3 mL 3 mL inhalation TID multivitamin (One Daily Multivitamin tablet) 1 tab PO DAILY nystatin 1 appl topical BID tamsulosin 0.4 mg PO BID 90 days warfarin See Protocol 6mg X 5DAYS, 3MG X 2 DAYS orally, Take medication 1-2 tabs as directed per anticoagulation clinic based on your INR Nursing Note INR 1.6??out of therapeutic range Medications and supplements reviewed Patient status: pt mistakenly fed him liver- which can greatly lower the INR, plus drinking ensure daily - and his appetite is good now, she was advise to decrease the ensure to 3 / week Medications or supplements: pt states he does not feel the gabapentin is helping his shingle neuralgia pain and plans to discuss with PCP about stopping it , it was explained that this type of pain can take time to heal but to surely discuss it with PCP Diet: improved Denies any signs and symptoms of bleeding or clotting or unusual bruising Bleeding, bruising, clotting discussed Nutritional guidance given: avoid high vit k foods x 3 days, decrease ensure to 3/week while appetite is good, eat foods from thin list, green food wheel gvien with explanation Dose: 9mg today then 6mg daily F/U INR Date : 1 week 05/27/25 ?? Patient verbalizing understanding of instructions given. Anti-Coag Initial Assessment Social Hx Patient Tobacco Use Status: Former Tobacco user alcohol intake: never Alcohol intake frequency: 0-2 drinks per day Cardiovascular Hx: HTN, IN (non stemi) and Arrhythmias (afib) Lung Disease HX: COPD Musculoskeletal Hx: Gout Blood Disorder Hx: Hyperlipidemia GI Hx: Hemorrhoids Hx: Kidney Disease (naren) and Prostate (prostate cancer) Cancer HX: Yes Psych. Illness/Depression: No Coding Level of Care Code Est Patient Level 1 Diagnoses Current use of anticoagulant therapy Z79.01 Assessment & Plan Assessment & Plan (1) Current use of anticoagulant therapy: Code(s): Z79.01 - FDC (current) use of anticoagulants Category: Medical
--- OUTSIDE RECORDS SUMMARY | 2025-05-20 10:58 | XMS_ITS | Patient Health Record ---
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 Name Role Phone Jake Pepper MD Primary Care Provider Luther Rajput Jr [facility] [phone] Allergies Allergen (clinical drug ingredient) Drug/Non Drug [...] Problem Status W/U Status Risk Notes Problem 603084247 Colon cancer screening (V76.51) Active confirmed Problem 282987596 Aspirin long-term use (V58.66) Active confirmed Plan Of Treatment Future Test Test Name Order Date COLONOSCOPY 07/29/2014 Insurance Providers Payer Name Payer Address Payer Phone Subscriber Number Group Number Insured Name Patient Relationship to Insured Coverage Start Date Coverage End Date [facility] [address] [place] [phone] [id number] CORNELIA JUAREZ Self - patient is the insured [place] of [place] [employer] [address] [place] [address] [id number] CORNELIA JUAREZ Self - patient is the insured Medical (General) History Medical History History ICD Code prostate problems hypertension elevated cholesterol Surgical History Surgery Date(Month/Year) back surgery knee surgery
--- OUTSIDE RECORDS SUMMARY | 2025-05-20 10:58 | XMS_ITS | Patient Health Record ---
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 Name Role Phone Jake Pepper Primary Care Provider Allergies Allergen (clinical drug ingredient) Drug/Non Drug Allergy documented on EMR Reaction Allergy Type Onset Date Status Lamisil rash Drug Allergy Active Vaccine product containing Streptococcus pneumoniae antigen (medicinal product) Pneumovax (uncoded) local reaction redness Allergy Active Results Component Value Reference Range Notes Liver Panel Reviewed date:08/20/2024 03:17:01 PM Interpretation: Performing Lab:[facility], [address] [place] [phone] Notes/Report: Bilirubin Total 0.7 0.0-1.0 mg/dL Bilirubin Direct 0.3 0.0-0.5 mg/dL Aspartate Amino Transferase 42 5-37 U/L Alanine Aminotransferase 24 0-40 U/L Total Protein 7.3 6.5-8.0 g/dL Albumin Level 3.9 3.5-5.0 g/dL Alkaline Phosphatase 94 39-117 U/L Lipid Panel with Reflex Reviewed date:08/20/2024 03:16:31 PM Interpretation: Performing Lab:[facility], [address] [place] [phone] Notes/Report: Triglycerides 135 <150 mg/dL Desirable Triglyceride: [...] ff Reviewed date:02/21/2025 05:38:19 PM Interpretation: Performing Lab:[facility], [address] [place] [phone] Notes/Report: White Blood Count 10.0 4.8-10.8 X10*3/uL [...] NRBC Abs Auto 0.000 0.0-0.012 X10*3/uL Comprehensive [place]. Panel Fa st Reviewed date:02/21/2025 05:34:56 PM Interpretation: Performing Lab:[facility], [address] [place] [address] Notes/Report: Sodium 143 135-145 mmol/L Potassium 3.8 [...] PROFILE Reviewed date:02/19/2025 12:44:54 PM Interpretation: Performing Lab:[address] [address] Notes/Report: Iron 63 45-160 mcg/dL Total Iron Binding Capacity 271 228-428 mcg/dL Percent Iron Saturation 23 15-50 % Unsaturated Iron Binding 208 Lipid Panel Reviewed date:02/19/2025 12:44:14 PM Interpretation: Performing Lab:[facility], [address] [place] [phone] Notes/Report: Triglycerides 129 <150 mg/dL Desirable Triglyceride: [...] (Free>4and<10) Reviewed date:02/19/2025 12:45:04 PM Interpretation: Performing Lab:[facility], [address] [place] [phone] Notes/Report: PSA,Total (Free>4and<10) < 0.10 0.00-4.00 ng/mL [...] t Reviewed date:02/21/2025 05:39:18 PM Interpretation: Performing Lab:[facility], [address] [place] [address] Notes/Report: Urine, Clean Catch Color Urine Dark Yellow Appearance Urine Clear PH 6.5 5.0-9.0 Glucose Urine UA Negative Negative mg/dL Urine Blood Negative Negative Specific Thurmond - Urine 1.025 1.005-1.025 Urine Protein 30 (1+) Neg-Trace mg/dL Urine Ketones Trace Negative mg/dL Nitrite Urine Negative Negative Leukocyte Esterase Urine Negative Negative RBC Urine 0-2 0-2 /HPF WBC Urine 0-5 0-5 /HPF Squamous Epithelial Cell Urine 0-2 0-2 /HPF Bacteria Urine None Seen None Seen Hyaline Casts Urine 0-2 0-2 /LPF INR WHOLE BLOOD POC Reviewed date:05/28/2024 12:29:45 PM Interpretation: Performing Lab:[facility], [address] [place] [address] Notes/Report: PT, INR - [facility] 2.3 0.9-1.1 METER #: [id number] INTERNATIONAL NORMALIZED RATIO (INR) REFERENCE RANGES Reference [...] OC Reviewed date:05/28/2024 12:29:33 PM Interpretation: Performing Lab:[facility], [address] [place] [phone] Notes/Report: Prothrombin Time Whole Bld POC 27.5 11.1-13.5 sec INR WHOLE BLOOD POC Reviewed date:06/25/2024 11:32:23 AM Interpretation: Performing Lab:[facility], [address] [place] [address] Notes/Report: PT, INR - [facility] 3.2 0.9-1.1 METER #: [id number] INTERNATIONAL NORMALIZED RATIO (INR) REFERENCE RANGES Reference [...] OC Reviewed date:06/25/2024 12:15:50 PM Interpretation: Performing Lab:[facility], [address] [place] [phone] Notes/Report: Prothrombin Time Whole Bld POC 38.6 11.1-13.5 sec INR WHOLE BLOOD POC Reviewed date:07/09/2024 11:05:08 AM Interpretation: Performing Lab:[facility], [address] [place] [address] Notes/Report: PT, INR - [facility] 2.3 0.9-1.1 METER #: [id number] INTERNATIONAL NORMALIZED RATIO (INR) REFERENCE RANGES Reference [...] OC Reviewed date:07/09/2024 12:21:37 PM Interpretation: Performing Lab:[facility], [address] [place] [phone] Notes/Report: Prothrombin Time Whole Bld POC 27.5 11.1-13.5 sec INR WHOLE BLOOD POC Reviewed date:07/22/2024 02:12:43 PM Interpretation: Performing Lab:[facility], [address] [place] [phone] Notes/Report: PT, INR - [facility] 1.8 0.9-1.1 METER #: [id number] INTERNATIONAL NORMALIZED RATIO (INR) REFERENCE RANGES Reference [...] OC Reviewed date:07/22/2024 02:18:21 PM Interpretation: Performing Lab:[facility], [address] [place] [phone] Notes/Report: Prothrombin Time Whole Bld POC 21.8 11.1-13.5 sec INR WHOLE BLOOD POC Reviewed date:08/04/2024 12:06:47 PM Interpretation: Performing Lab:[facility], [address] [place] [address] Notes/Report: PT, INR - [facility] 2.2 0.9-1.1 METER #: [id number] INTERNATIONAL NORMALIZED RATIO (INR) REFERENCE RANGES Reference [...] OC Reviewed date:08/04/2024 12:04:48 PM Interpretation: Performing Lab:[facility], [address] [place] [phone] Notes/Report: Prothrombin Time Whole Bld POC 25.9 11.1-13.5 sec Hold Gold Reviewed date:08/20/2024 12:43:27 PM Interpretation: Performing Lab:[facility], [address] [place] [phone] Notes/Report: Hold Gold See Note Specimen held untested for 24 hours; Call to request Chemistry testing. INR WHOLE BLOOD POC Reviewed date:08/25/2024 07:57:52 PM Interpretation: Performing Lab:[facility], [address] [place] [phone] Notes/Report: PT, INR - [facility]ag [facility] 2.1 0.9-1.1 METER #: [id number] INTERNATIONAL NORMALIZED RATIO (INR) REFERENCE RANGES Reference [...] OC Reviewed date:08/25/2024 07:57:59 PM Interpretation: Performing Lab:[facility], [address] [place] [address] Notes/Report: Prothrombin Time Whole Bld POC 25.6 11.1-13.5 sec INR WHOLE BLOOD POC Reviewed date:09/15/2024 09:59:14 AM Interpretation: Performing Lab:[facility], [address] [place] [phone] Notes/Report: PT, INR - [facility] 3.0 0.9-1.1 METER #: [id number] INTERNATIONAL NORMALIZED RATIO (INR) REFERENCE RANGES Reference [...] OC Reviewed date:09/15/2024 12:33:10 PM Interpretation: Performing Lab:[facility], [address] [place] [phone] Notes/Report: Prothrombin Time Whole Bld POC 35.5 11.1-13.5 sec INR WHOLE BLOOD POC Reviewed date:10/06/2024 04:22:44 PM Interpretation: Performing Lab:[facility], [address] [place] [phone] Notes/Report: PT, INR - [facility] 2.0 0.9-1.1 METER #: [id number] INTERNATIONAL NORMALIZED RATIO (INR) REFERENCE RANGES Reference [...] OC Reviewed date:10/06/2024 04:22:36 PM Interpretation: Performing Lab:[facility], [address] [place] [phone] Notes/Report: Prothrombin Time Whole Bld POC 23.5 11.1-13.5 sec Prostate Specific Antigen Reviewed date:10/09/2024 11:16:46 AM Interpretation: Performing Lab:[facility], [address] [place] [phone] Notes/Report: Prostate Specific Antigen < 0.10 <0.05-4.0 ng/mL PSA methodology: Robert Alinity i Chemiluminescent Microparticle Immunoassay (CMIA) INR WHOLE BLOOD POC Reviewed date:10/27/2024 11:14:11 AM Interpretation: Performing Lab:[address] [address] Notes/Report: PT, INR - [facility] 2.0 0.9-1.1 METER #: [id number] INTERNATIONAL NORMALIZED RATIO (INR) REFERENCE RANGES Reference [...] OC Reviewed date:10/27/2024 11:14:04 AM Interpretation: Performing Lab:[facility], [address] [place] [address] Notes/Report: Prothrombin Time Whole Bld POC 23.7 11.1-13.5 sec INR WHOLE BLOOD POC Reviewed date:11/10/2024 12:18:48 PM Interpretation: Performing Lab:[facility], [address] [place] [phone] Notes/Report: PT, INR - [facility] 1.8 0.9-1.1 METER #: [id number] INTERNATIONAL NORMALIZED RATIO (INR) REFERENCE RANGES Reference [...] OC Reviewed date:11/10/2024 12:18:37 PM Interpretation: Performing Lab:[facility], [address] [place] [address] Notes/Report: Prothrombin Time Whole Bld POC 21.5 11.1-13.5 sec INR WHOLE BLOOD POC Reviewed date:11/24/2024 12:04:29 PM Interpretation: Performing Lab:[facility], [address] [place] [phone] Notes/Report: PT, INR - [facility] 2.4 0.9-1.1 METER #: [id number] INTERNATIONAL NORMALIZED RATIO (INR) REFERENCE RANGES Reference [...] OC Reviewed date:11/24/2024 12:04:21 PM Interpretation: Performing Lab:[facility], [address] [place] [phone] Notes/Report: Prothrombin Time Whole Bld POC 28.2 11.1-13.5 sec INR WHOLE BLOOD POC Reviewed date:12/17/2024 12:38:14 PM Interpretation: Performing Lab:[facility], [address] [place] [phone] Notes/Report: PT, INR - [facility]ag [facility] 2.0 0.9-1.1 METER #: [id number] INTERNATIONAL NORMALIZED RATIO (INR) REFERENCE RANGES Reference [...] OC Reviewed date:12/17/2024 12:51:29 PM Interpretation: Performing Lab:[facility], [address] [place] [phone] Notes/Report: Prothrombin Time Whole Bld POC 23.9 11.1-13.5 sec INR WHOLE BLOOD POC Reviewed date:01/07/2025 10:59:51 AM Interpretation: Performing Lab:[facility], [address] [place] [phone] Notes/Report: PT, INR - Anti Coag [facility] 2.2 0.9-1.1 METER #: [id number] INTERNATIONAL NORMALIZED RATIO (INR) REFERENCE RANGES Reference [...] OC Reviewed date:01/07/2025 10:59:22 AM Interpretation: Performing Lab:[facility], [address] [place] [address] Notes/Report: Prothrombin Time Whole Bld POC 26.4 11.1-13.5 sec INR WHOLE BLOOD POC Reviewed date:02/04/2025 02:25:43 PM Interpretation: Performing Lab:[facility], [address] [place] [phone] Notes/Report: PT, INR - [facility]ag [facility] 3.3 0.9-1.1 METER #: [id number] INTERNATIONAL NORMALIZED RATIO (INR) REFERENCE RANGES Reference [...] OC Reviewed date:02/04/2025 11:35:29 AM Interpretation: Performing Lab:[facility], [address] [place] [phone] Notes/Report: Prothrombin Time Whole Bld POC 39.1 11.1-13.5 sec INR WHOLE BLOOD POC Reviewed date:03/04/2025 10:01:13 AM Interpretation: Performing Lab:[facility], [address] [place] [address] Notes/Report: PT, INR - [facility]ag [facility] 2.6 0.9-1.1 METER #: [id number] INTERNATIONAL NORMALIZED RATIO (INR) REFERENCE RANGES Reference [...] OC Reviewed date:03/04/2025 10:01:06 AM Interpretation: Performing Lab:[address] [address] Notes/Report: Prothrombin Time Whole Bld POC 31.0 11.1-13.5 sec Complete Blood Count Auto Di ff Reviewed date:03/21/2025 07:34:37 PM Interpretation: Performing Lab:[address] [address] Notes/Report: White Blood Count 7.1 4.8-10.8 X10*3/uL [...] INR Reviewed date:03/21/2025 07:30:57 PM Interpretation: Performing Lab:[address] [address] Notes/Report: Prothrombin Time 30.9 10.9-12.4 SEC INTERNATIONAL [...] Microscopic Reviewed date:03/21/2025 07:33:45 PM Interpretation: Performing Lab:[facility], [address] [place] [phone] Notes/Report: Color Urine Yellow Appearance Urine Clear PH 6.5 5.0-9.0 Glucose Urine UA Negative Negative mg/dL Urine Blood Negative Negative Specific [place] - Urine >= 1.030 1.005-1.025 Urine Protein 100 (2+) Neg-Trace mg/dL Urine Ketones 15 Negative mg/dL Nitrite Urine Negative Negative Leukocyte Esterase Urine Negative Negative RBC Urine 0-2 0-2 /HPF WBC Urine 0-5 0-5 /HPF Squamous Epithelial Cell Urine 3-5 0-2 /HPF Bacteria Urine None Seen None Seen Hyaline Casts Urine 11-20 0-2 /LPF Comprehensive Met. Panel Reviewed date:03/21/2025 07:33:21 PM Interpretation: Performing Lab:[facility], [address] [place] [address] Notes/Report: Sodium 143 135-145 mmol/L Potassium 3.8 3.3-5.1 mmol/L Chloride 89 96-108 mmol/L Carbon Dioxide 43 22-29 mmol/L Critical value for test(s): BIC Results called to and read back by:JOANNWDarrell Person calling: HEIDY Date: 03/20/2025 Time:16:45 Anion [...] Acid Reviewed date:03/21/2025 07:30:17 PM Interpretation: Performing Lab:[facility], [address] [place] [phone] Notes/Report: Lactic Acid 0.9 0.5-2.0 mmol/L Magnesium Reviewed date:03/21/2025 07:31:06 PM Interpretation: Performing Lab:[facility], [address] [place] [phone] Notes/Report: Magnesium 1.9 1.6-2.6 mg/dL Troponin-I High Sensitivity Reviewed date:03/21/2025 07:30:47 PM Interpretation: Performing Lab:[facility], [address] [place] [phone] Notes/Report: Troponin-I High Sensitivity 29.0 <3.5-35.0 ng/L The Robert high sensitivity Troponin-I results should be used in conjunction with other diagnostic information such as ECG, clinical observations and information, and patient symptoms to aid in the diagnosis of [place]. B Type Natriuretic Peptide Reviewed date:03/21/2025 07:31:15 PM Interpretation: Performing Lab:[facility], [address] [place] [phone] Notes/Report: B Type Natriuretic Peptide 214 <100 pg/mL Gram stain Reviewed date:03/23/2025 10:18:58 AM Interpretation: Performing Lab:[facility], [address] [place] [phone] Notes/Report: Gram stain Gram stain results: Gram stain No polys Gram stain 2+ epithelial cells Gram stain 3+ Gram-positive cocci SARS-CoV2/FLU/RSV Reviewed date:03/21/2025 07:30:40 PM Interpretation: Performing Lab:[facility] [address] [address] Notes/Report: Influenza A PCR NEGATIVE Negative Influenza [...] by authorized laboratories. Testing performed on the [employer] GeneXpert utilizing real-time RT-PCR. All SARS CoV2 and positive influenza A/B results are reported to [facility]. Blood Culture (First) Reviewed date:03/26/2025 04:21:01 PM Interpretation: Performing Lab:[address] [address] Notes/Report: Blood Culture (First) No growth after 5 days. Blood Culture (Second) Reviewed date:03/26/2025 04:21:09 PM Interpretation: Performing Lab:[address] [address] Notes/Report: Blood Culture (Second) No growth after 5 days. Venous Blood Gases - POC Reviewed date:03/21/2025 07:30:11 PM Interpretation: Performing Lab:[address] [address] Notes/Report: VBG pH 7.54 7.32-7.43 METER #: [id number] additional_comment: Sushant singh VBG pCO2 56 METER #: [id number] additional_comment: Sushant singh VBG pO2 56 METER #: [id number] additional_comment: Sushant singh VBG Base Excess 22.3 METER #: [id number] additional_comment: Sushant singh VBG HCO3 48 22-26 mmol/L METER #: [id number] additional_comment: Sushant singh VBG O2 % Saturation 88.0 METER #: [id number] additional_comment: Sushant samantha Routine Culture Reviewed date:03/23/2025 10:20:42 AM Interpretation: Performing Lab:[facility], [address] [place] [address] Notes/Report: Routine Culture Report - external Routine Culture 4+ Mixed skin ricci CT soft tissue neck w con Reviewed date:03/21/2025 07:30:02 PM Interpretation: Performing Lab: Notes/Report: [facility] [address] [place] [address] Scan Report Signed Patient: Kalyan Nguyen MR#: [id number] 2742 : 1940 Acct:[id number] Age/Sex: 84 / M ADM Date: 03/20/25 Loc: [facility]- Attending Dr: Zoraida Donovan MD Ordering Physician: Nilsa Card Date of Service: 03/20/25 Procedure(s): CT soft tissue neck w IV con Accession Number(s): [id number] cc: Nilsa Card; Jake Pepper MD Report Number: [id number]: Total DLP = 599.99 mGy-cm CLINICAL HISTORY: [...] in OV> 03/20/252104 DD/ 03 TD/TT: 03/20/252103 [employer]: [place] [address] CT Scan Report Signed Patient: Miguel Nguyen MR#: [id number] 2742 : 1940 Acct:[id number] Age/Sex: 84 / M ADM Date: 03/20/25 Loc: [facility]- Attending Dr: Zoraida Donovan MD Ordering Physician: Nilsa Card Date of Service: 03/20/25 Procedure(s): CT sof t tissue neck w IV con Accession Number(s): [id number] cc: Nilsa CardSTALIN; Jake Pepper MD Report Number: [id number]: Total DLP = 599.99 mGy-cm CLINICAL HISTORY: [...] in OV> 03/20/252104 DD/ 03 TD/TT: 03/20/252103 [employer] Representative [employer] Service: CT head/brain wo con Reviewed date:03/21/2025 07:29:22 PM Interpretation: Performing Lab: Notes/Report: [address] [address] [address] Scan Report Signed Patient: Kalyan Nguyen MR#: [id number] 2742 : 1940 Acct:[id number] Age/Sex: 84 / M ADM Date: 03/20/25 Loc: [facility]- Attending Dr: Zoraida Donovan MD Ordering Physician: Nilsa Card Date of Service: 03/20/25 Procedure(s): CT head/brain wo IV con Accession Number(s): [id number] cc: Nilsa Card; Jake Pepper MD Report Number: [id number]: Total DLP = 914.64 mGy-cm CLINICAL HISTORY: [...] in OV> 03/20/252105 DD/ 04 TD/TT: 03/20/252104 [employer]: [address] [address] [address] Scan Report Signed Patient: Miguel Nguyen MR#: [id number] 2742 : 1940 Acct:[id number] Age/Sex: 84 / M ADM Date: 03/20/25 Loc: [place] [address]: Zoraida Donovan MD Ordering Physician: Nilsa Card [facility] Date of Service: 03/20/25 Procedure(s): CT head/brain wo IV con Accession Number(s): [id number] [facility] Jake Pepper MD Report Number: [id number]: Total DLP = 914.64 mGy-cm CLINICAL HISTORY: [...] in OV> 03/20/252105 DD/ 04 TD/TT: 03/20/252104 [employer] Representative [employer]: XR chest 2V Reviewed date:03/21/2025 07:32:02 PM Interpretation: Performing Lab: Notes/Report: [address] [address] XRay Report Signed Patient: Kalyan Nguyen MR#: [id number] 2742 : 1940 Acct:[id number] Age/Sex: 84 / M ADM Date: 03/20/25 [facility] Attending Dr: Ordering Physician: Lisette Graves NP Date of Service: 03/20/25 Procedure(s): XR chest 2V Accession Number(s): [id number] cc: Jake Pepper MD; Lisette Graves NP [...] in OV> 03/20/251727 DD/ 26 TD/TT: 03/20/251726 [employer] Representative [employer]: [place] [address] XRay Report Signed Patient: Miguel Nguyen MR#: [id number] 2742 : 1940 Acct:[id number] Age/Sex: 84 / M ADM Date: 03/20/25 Loc: [facility] Attending Dr: Ordering Physician: Lisette Graves NP Date of Service: 03/20/25 Procedure(s): XR rhina st 2V Accession Number(s): [id number] cc: Jake Pepper MD; Lisette Graves NP [...] in OV> 03/20/251727 DD/ 26 TD/TT: 03/20/251726 [employer] Representative [employer]: Troponin-I High Sensitivity Reviewed date:03/21/2025 07:31:34 PM Interpretation: Performing Lab:[facility], [address] [place] [address] Notes/Report: Troponin-I High Sensitivity 24.4 <3.5-35.0 ng/L The Robert high sensitivity Troponin-I results should be used in conjunction with other diagnostic information such as ECG, clinical observations and information, and patient symptoms to aid in the diagnosis of TN. Complete Blood Count Auto Di ff Reviewed date:03/21/2025 07:34:16 PM Interpretation: Performing Lab:[facility], [address] [place] [address] Notes/Report: White Blood Count 6.6 4.8-10.8 X10*3/uL [...] INR Reviewed date:03/21/2025 07:32:30 PM Interpretation: Performing Lab:[facility], [address] [place] [address] Notes/Report: Prothrombin Time 41.4 10.9-12.4 SEC INTERNATIONAL [...] Panel Reviewed date:03/21/2025 07:32:58 PM Interpretation: Performing Lab:[facility], [address] [place] [address] Notes/Report: Sodium 142 135-145 mmol/L Potassium 3.4 3.3-5.1 mmol/L Chloride 92 96-108 mmol/L Carbon Dioxide 40 22-29 mmol/L Critical value for test(s): BIC Results called to and read back by: MAT Person calling: VYASRID Date: [id number] Time:0309 Anion Gap 13 12-20 Blood Urea Nitrogen [...] T4 Reviewed date:03/21/2025 07:31:25 PM Interpretation: Performing Lab:[facility], [address] [place] [address] Notes/Report: TSH reflex Free T4 1.34 0.32-4.0 uIU/mL Respiratory Panel Reviewed date:03/21/2025 07:28:57 PM Interpretation: Performing Lab:[facility], [address] [place] [address] Notes/Report: Adenovirus PCR Not Detected Not Detect. [...] testing should be considered. Results reported to [facility]. This test has been authorized by [...] is performed by Multiplexed PCR, utilizing the [employer] Array. Prothrombin Time INR Reviewed date:03/22/2025 11:40:38 AM Interpretation: Performing Lab:[address] [address] Notes/Report: Prothrombin Time 55.7 10.9-12.4 SEC INTERNATIONAL [...] Panel Reviewed date:03/22/2025 12:35:51 PM Interpretation: Performing Lab:[address] [address] Notes/Report: Sodium 138 135-145 mmol/L Potassium 4.1 [...] Random Reviewed date:03/22/2025 04:33:37 PM Interpretation: Performing Lab:[address] [address] Notes/Report: Vancomycin Random 13.0 15-20 mcg/mL Prothrombin Time INR Reviewed date:03/23/2025 10:14:22 AM Interpretation: Performing Lab:[address] [address] Notes/Report: Prothrombin Time 49.6 10.9-12.4 SEC INTERNATIONAL [...] Creatinine Reviewed date:03/23/2025 10:14:33 AM Interpretation: Performing Lab:[facility], [address] [place] [address] Notes/Report: Creatinine 0.99 0.5-1.4 mg/dL Creatinine Clr [...] POC Reviewed date:04/01/2025 02:15:11 PM Interpretation: Performing Lab:[address] [address] Notes/Report: PT, INR - Anti Coag Clinic 5.4 0.9-1.1 METER #: [id number] Asymptomatic Cleaned Meter Doctor Notified INTERNATIONAL NORMALIZED [...] OC Reviewed date:04/01/2025 02:14:25 PM Interpretation: Performing Lab:[facility], [address] [place] [address] Notes/Report: Prothrombin Time Whole Bld POC 65.0 11.1-13.5 sec INR WHOLE BLOOD POC Reviewed date:04/05/2025 01:00:12 PM Interpretation: Performing Lab:[facility], [address] [place] [address] Notes/Report: PT, INR - Anti Coag Clinic 4.7 0.9-1.1 METER #: [id number] INTERNATIONAL NORMALIZED RATIO (INR) REFERENCE RANGES Reference [...] OC Reviewed date:04/05/2025 01:00:04 PM Interpretation: Performing Lab:[facility], [address] [place] [phone] Notes/Report: Prothrombin Time Whole Bld POC 55.9 11.1-13.5 sec INR WHOLE BLOOD POC Reviewed date:04/12/2025 12:38:27 PM Interpretation: Performing Lab:[facility], [address] [place] [phone] Notes/Report: PT, INR - [facility] 4.1 0.9-1.1 METER #: [id number] INTERNATIONAL NORMALIZED RATIO (INR) REFERENCE RANGES Reference [...] OC Reviewed date:04/12/2025 12:38:37 PM Interpretation: Performing Lab:[facility], [address] [place] [phone] Notes/Report: Prothrombin Time Whole Bld POC 49.7 11.1-13.5 sec INR WHOLE BLOOD POC Reviewed date:04/15/2025 04:00:41 PM Interpretation: Performing Lab:[facility], [address] [place] [phone] Notes/Report: PT, INR - [facility] 4.2 0.9-1.1 METER #: [id number] INTERNATIONAL NORMALIZED RATIO (INR) REFERENCE RANGES Reference [...] OC Reviewed date:04/15/2025 04:00:48 PM Interpretation: Performing Lab:[facility], [address] [place] [phone] Notes/Report: Prothrombin Time Whole Bld POC 50.7 11.1-13.5 sec INR WHOLE BLOOD POC Reviewed date:04/19/2025 01:36:50 PM Interpretation: Performing Lab:[facility], [address] [place] [phone] Notes/Report: PT, INR - [facility] 2.7 0.9-1.1 METER #: [id number] INTERNATIONAL NORMALIZED RATIO (INR) REFERENCE RANGES Reference [...] OC Reviewed date:04/19/2025 01:36:41 PM Interpretation: Performing Lab:[facility] [facility], [address] [place] [phone] Notes/Report: Prothrombin Time Whole Bld POC 31.9 11.1-13.5 sec INR WHOLE BLOOD POC Reviewed date:04/27/2025 12:19:28 PM Interpretation: Performing Lab:[facility], [address] [place] [phone] Notes/Report: PT, INR - [facility] 2.4 0.9-1.1 METER #: [id number] INTERNATIONAL NORMALIZED RATIO (INR) REFERENCE RANGES Reference [...] OC Reviewed date:04/27/2025 12:19:14 PM Interpretation: Performing Lab:[facility], [address] [place] [phone] Notes/Report: Prothrombin Time Whole Bld POC 29.1 11.1-13.5 sec INR WHOLE BLOOD POC Reviewed date:05/11/2025 02:35:09 PM Interpretation: Performing Lab:[facility], [address] [place] [phone] Notes/Report: PT, INR - [facility] Clinic 1.4 0.9-1.1 METER #: [id number] Asymptomatic Doctor Notified INTERNATIONAL NORMALIZED RATIO (INR) [...] OC Reviewed date:05/11/2025 02:31:58 PM Interpretation: Performing Lab:[facility], [address] [place] [phone] Notes/Report: Prothrombin Time Whole Bld POC 16.7 11.1-13.5 sec INR WHOLE BLOOD POC Reviewed date:05/14/2025 04:20:53 PM Interpretation: Performing Lab:[facility], [address] [place] [phone] Notes/Report: PT, INR - [facility] 1.6 0.9-1.1 METER #: [id number] INTERNATIONAL NORMALIZED RATIO (INR) REFERENCE RANGES Reference [...] Prothrombin Time Whole Bld P OC Reviewed date:05/14/2025 04:28:14 PM Interpretation: Performing Lab:[facility], [address] [place] [phone] Notes/Report: Prothrombin Time Whole Bld POC 19.6 11.1-13.5 sec INR WHOLE BLOOD POC (Not yet reviewed by provider) Interpretation: Performing Lab:[facility], [address] [place] [phone] Notes/Report: PT, INR - [facility]ag Clinic 1.6 0.9-1.1 METER #: [id number] INTERNATIONAL NORMALIZED RATIO (INR) REFERENCE RANGES Reference [...] (Not yet reviewed by provider) Interpretation: Performing Lab:[facility], [address] [place] [phone] Notes/Report: Prothrombin Time Whole Bld POC 19.8 11.1-13.5 sec Reason For Referral Reason please verito nguyen for for long-term and any other services he made need Diagnosis 1 Atrial fibrillation, unspecified type (I48.91) Diagnosis 2 COPD without exacerb ation (J44.9) Diagnosis 3 Bilateral leg weakne ss (R29.898) Referral Organization Jake Pepper MD Referring Provider First Name Jake Referring Provider Last Name Evgeny Referring Provider Speciality Internal M edicine Referred Provider [facility], [facility] Referred Provider Specialty Unknown General Notes Minerva Duff 0 04/12/2025 11:55:29 AM > referral info faxed, Minerva Duff 04/12/2025 01:22:33 PM >this referral will not be used due to they do not take his insurance. Spoke with [facility] NEIL Montiel, she [...] hrs for 30 days 01/26/2013 Not-Taking Nystatin 808173 UNIT/GM 1 application Externally Twice a day [...] Orally On ce a day Not-Taking Nystatin 872321 UNIT/GM 1 application Externally Twice a day for 10 days 03/19/2025 Active Zolpidem Tartrate 5 MG TAKE 1 TABLET BY MOUTH DAILY AT BEDTIME Orally Once a day for 30 days 03/09/2025 Active Doxycycline Monohydrate 100 MG 1 capsule Orally Once a day Not-Taking Nystatin-Triamcinolone 076415-9.1 UNIT/GM 1 application Externally Twice a day [...] red Fluarix Quadrivalent Unknown 08/05/[address] [facility] Influenza High Dose IM Intramuscular 08/03/2019 [...] Problem Status W/U Status Risk Notes Problem 08191848 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 Problem Insomnia (386023557) Insomnia (G47.00) Active confirmed Problem 9322519 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) Active confirmed Problem Cataract (533726473) Unspecified cataract (H26.9) Active confirmed Problem Conductive hearing loss, bilateral (806887613) Conductive hearing loss, 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) Active confirmed Problem 5733819 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) Active confirmed Problem 80037549 Essential hypert ension (I10) Active confirmed Problem 206618006 Prostate cancer (C61) Active confirme d Problem 8372035 Psoriasis (L40.9) Active confirmed Problem 773116820 Lung nodule (R91.1) Active confirmed Problem Low testosterone (883798893) Low testosterone (E29.1) Active confirmed Problem 4590674649461624 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 Problem 889873766 Lung nodules (R91.8) Active confirmed Problem 705932370 Cervical disc di sease (M50.90) Active confirmed Problem 283477548 Tension headache (G44.209) Active confirmed Problem 3516549 Former smoker (Z87.891) Active confirmed Problem Acute exacerbation of chronic obstructive airways disease (667803139) COPD exacerbation (J44.1) Active confirmed Problem Postherpetic neuralgia (0256193) Post herpetic neuralgia (B02.29) Active confirmed Problem 46073644 Dysthymia (F34.1) Active confirmed Problem Iron deficiency anemia (27037916) Iron deficiency anemia, unspecified iron deficiency anemia type (D50.9) Active confirmed Problem 52933401 Atrial fibrillat ion, unspecified type (I48.91) Active confirmed Problem 3438863 Urinary obstruct ion (N13.9) Active confirmed Problem Leukocytosis (874563150) Elevated WBC count (D72.829) Active confirmed Problem 92444922 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 confirmed Problem 381552236 Pure hypercholesterolemia (E78.00) Active confirmed Problem 589781762 BMI 30.0-30.9,ad ult (Z68.30) Active confirmed Problem 817933426 COPD with exacer bation (J44.1) Active confirmed Problem 043888593 Hypertensive cri sis (I16.9) Active confirmed Problem Gout (57620712) Acute gout, unspecified cause, unspecified site (M10.9) Active confirmed Problem 33300797 COPD without exacerbation (J44.9) Active confirmed Problem Gout (36454647) Acute gout of ri ght knee, unspecified cause (M10.9) Active confirmed Problem 029382627 Mixed conductive and sensorineural hearing loss of [...] Jake Pepper MD [address] [place] [address] [id number] 08/20/2024 Jake Pepper Pure hypercholestero lemia E78.00 Jake Pepper MD [address] [place] [address] Drive [address] [place] [address] [id number] 02/19/2025 Jake Pepper Blood tests for rout ine general physical examination Z00.00 ; Essential hypertension I10 ; Pure hypercholesterolemia E78.00 and Iron deficiency anemia, unspecified iron deficiency anemia type D50.9 Jake Pepper MD [address] [place] [address] [id number] 07/07/2024 Jake Pepper Tension headache G44 .209 Jake Pepper MD [address] [place] [address] Drive [address] [place] [address] [id number] 08/27/2024 Jake Pepper Essential hypertensi on I10 ; Pure hypercholesterolemia E78.00 ; Atrial fibrillation, unspecified type I48.91 and COPD without exacerbation J44.9 Jake Pepper MD [address] [place] [address] Drive [address] [place] [address] [id number] 01/22/2025 Jake Pepper Panlobular emphysema J43.1 ; Atrial fibrillation, unspecified type I48.91 and Unspecified cataract H26.9 Jake Pepper MD [address] [place] [address] [id number] 02/26/2025 Jake Pepper Essential hypertensi on I10 ; Annual physical exam Z00.00 ; Panlobular emphysema J43.1 ; Pure hypercholesterolemia E78.00 ; Dysthymia F34.1 ; Iron deficiency anemia, unspecified iron deficiency anemia type D50.9 and Depression screening Z13.31 Jake Pepper MD [address] [place] [address] [id number] 03/18/2025 Jake Pepper Thrush B37.0 Jake Pepper MD [address] [place] [address] [id number] 03/29/2025 Jake Pepper Essential hypertensi on I10 ; Panlobular emphysema J43.1 ; Shingles B02.9 and Thrush B37.0 Jake Pepper MD [address] [place] [address] [id number] 04/05/2025 Jake Pepper Post herpetic neural dung B02.29 ; Skin tear of right forearm without complication, initial encounter S51.801A ; Essential hypertension I10 and Atrial fibrillation, unspecified type I48.91 Jake Pepepr MD [address] [place] [address] [id number] 04/20/2025 Jake Pepper Post herpetic neural dung B02.29 ; Skin tear of right forearm without complication, initial encounter S51.801A and Atrial fibrillation, unspecified type I48.91 Jake Pepper MD [address] [place] [address] [id number] 12/21/2024 Jake Pepper MD [address] [place] [address] [id number] 02/19/2025 Jake Pepper MD [address] [place] [address] [id number] 03/19/2025 Jake Pepper MD [address] [place] [address] [id number] 03/26/2025 Jake Pepper MD [address] [place] [address] [id number] 04/01/2025 Jake Pepper MD [address] [place] [address] [id number] 04/13/2025 Jake Pepper MD [address] [place] [address] [id number] 05/07/2025 Jake Pepper MD [address] [place] [address] [id number] 05/11/2025 Jake Pepper MD [address] [place] [address] [id number] 06/07/2024 Jake Pepper Insomnia G47.00 Jake Pepper MD [address] [place] [address] [id number] 07/07/2024 Jake Pepper Insomnia G47.00 Jake Pepper MD [address] [place] [address] [id number] 08/06/2024 Jake Pepper Insomnia G47.00 Jake Pepper MD [address] [place] [address] [id number] 09/02/2024 Jake Pepper Insomnia G47.00 Jake Pepper MD [address] [place] [address] [id number] 10/05/2024 Jake Pepper Insomnia G47.00 Jake Pepper MD [address] [place] [address] [id number] 11/08/2024 Jake Pepper Insomnia G47.00 Jake Pepper MD [address] [place] [address] [id number] 12/07/2024 Jake Pepper Insomnia G47.00 Jake Pepper MD [address] [place] [address] [id number] 01/06/2025 Jake Velaardianny Insomnia G47.00 Jake Pepper MD [address] [place] [address] [id number] 02/05/2025 Jake Pepper Insomnia G47.00 Jake Pepper MD [address] [place] [address] [id number] 02/10/2025 Jake Pepper MD [address] [place] [address] [id number] 02/12/2025 Jake Pepper MD [address] [place], [place] [id number] 03/08/2025 Jake Pepper Insomnia G47.00 Assessments Encounter [...] 10/15/2022 Folate 02/09/2021 INR WHOLE BLOOD POC 05/20/2025 Prothrombin Time Whole Bld POC Future Test Test Name Order Date CT chest wo con 02/04/2023 Next Appt Details Provider Name:Jake Miller ier, 08/19/2025 07:00:00 AM, [address] [place] [address], [address], [id number], Provider Name:Jake Miller ier, 08/26/2025 10:00:00 AM, [address] [place] [address], [address] [place] [address], [id number], Provider Name:Jake Miller ier, 02/24/2026 07:15:00 AM, [address] [place] [address], [address], [phone], Provider Name:Jake Miller ier, 03/03/2026 09:30:00 AM, [address] [place] [address], [address], [id number], Insurance Providers Payer Name Payer Address Payer Phone Subscriber Number Group Number Insured Name Patient Relationship to Insured Coverage Start Date Coverage End Date [employer] [facility] [address] [place] [phone] [id number] Kalyan Nguyen Self - patient is the insured MEDICARE [employer] [address] [place] [id number] Kalyan Nguyen Self - patient is the insured Medical (General) History Medical History History ICD Code 03/2004 - colonoscopy (repea t 10 years); colonoscopy [address] Rajput Smoker unmotivated to quit F17.210 biculatimide and finasteraide for prosta te cancer Surgical History Surgery Date(Month/Year) Repair of Umbilical Hernia w/Mesh (Dr. Darrell guido) 04/2019
== END 2025-05-20 10:58 | disposition home or self-care (01) ==
LOC: HO.ACS 10:13
PROVIDERS: PCP Internal Medicine; Visit Provider Internal Medicine Medical Oncology
DX: Z79.01 Long term (current) use of anticoagulants (principal)

== ENCOUNTER → 2025-05-20 10:13 | Outpatient (BNVA) | payer MEDICARE, SELFPAY | PROVIDERS: PCP Internal Medicine; Visit Provider Internal Medicine Medical Oncology | DX: Z79.01 Long term (current) use of anticoagulants (principal) | CPT/HCPCS: 85610; 99211 ==

== ENCOUNTER 2025-05-27 10:13 | Outpatient (AMB) | payer MEDICARE, SELFPAY ==
[2025-05-27 10:29] LABS: Prothrombin Time Whole Bld POC 21.4 sec (11.1-13.5); ~PT, ~INR - Anti Coag Clinic 1.8 (0.9-1.1)
--- NOTE | 2025-05-27 10:43 | MHC.OFFVISCO ---
Intake Intake Visit Reasons: Anticoagulation Allergies pneumococcal vaccine (PNEUMOCOCCAL VACCINE) Allergy (Intermediate, Verified 05/27/25 10:22) RASH amoxicillin (From Augmentin) Allergy (Unknown, Verified 05/27/25 10:22) Swelling clavulanic acid (From Augmentin) Allergy (Unknown, Verified 05/27/25 10:22) Swelling theophylline Adverse Reaction (Intermediate, Verified 05/27/25 10:22) Loss of Appetite Medication List - Last Reconciled 05/27/25 by Gertrudis Simeon RN albuterol sulfate 90 mcg/actuation 2 puffs PO Q2H PRN atorvastatin 40 mg PO DAILY carvedilol 6.25 mg PO BID cyanocobalamin (vitamin B-12) 1,000 mcg PO DAILY furosemide 60 mg (1.5 x 40 mg) PO DAILY gabapentin mg PO ipratropium-albuterol 0.5 mg-3 mg(2.5 mg base)/3 mL 3 mL inhalation TID multivitamin (One Daily Multivitamin tablet) 1 tab PO DAILY nystatin 1 appl topical BID tamsulosin 0.4 mg PO BID 90 days warfarin See Protocol 6mg X 5DAYS, 3MG X 2 DAYS orally, Take medication 1-2 tabs as directed per anticoagulation clinic based on your INR Nursing Note INR 1.8 out of therapeutic range Medications and supplements reviewed Patient status: was giving him more greens -she mixed up what raises or lowers the INR - she was reeducated and food list reviewed what was given Medications or supplements: on last refill of gabapentin Diet: appetite is much improved Denies any signs and symptoms of bleeding or clotting or unusual bruising Bleeding, bruising, clotting discussed Nutritional guidance given: avoid greens x 2 days, eat orange and red then resume usual diet Dose: now up to 9mg x 1 day/ 6mg x 6 days F/U INR Date: 1 week ?? Patient verbalizing understanding of instructions given. Anti-Coag Initial Assessment Social Hx Patient Tobacco Use Status: Former Tobacco user alcohol intake: never Alcohol intake frequency: 0-2 drinks per day Cardiovascular Hx: HTN, VT (non stemi) and Arrhythmias (afib) Lung Disease HX: COPD Musculoskeletal Hx: Gout Blood Disorder Hx: Hyperlipidemia GI Hx: Hemorrhoids Hx: Kidney Disease (naren) and Prostate (prostate cancer) Cancer HX: Yes Psych. Illness/Depression: No Coding Level of Care Code Est Patient Level 1 Diagnoses Current use of anticoagulant therapy Z79.01 Assessment & Plan Assessment & Plan (1) Current use of anticoagulant therapy: Code(s): Z79.01 - retirement (current) use of anticoagulants Category: Medical
--- OUTSIDE RECORDS SUMMARY | 2025-05-27 11:43 | XMS_ITS | Patient Health Record ---
Author Organization Jake Pepper MD Address [address] [place], [place] [id number] Care Team Providers Care Swing Type Lathe Operator Name Role Phone Jake Pepper Primary Care Provider Allergies Allergen (clinical drug ingredient) Drug/Non Drug Allergy documented on EMR Reaction Allergy Type Onset Date Status Lamisil rash Drug Allergy Active Vaccine product containing Streptococcus pneumoniae antigen (medicinal product) Pneumovax (uncoded) local reaction redness Allergy Active Results Component Value Reference Range Notes Liver Panel Reviewed date:08/20/2024 03:17:01 PM Interpretation: Performing Lab:[facility], [address] [place] [phone] Notes/Report: Bilirubin Total 0.7 0.0-1.0 mg/dL Bilirubin Direct 0.3 0.0-0.5 mg/dL Aspartate Amino Transferase 42 5-37 U/L Alanine Aminotransferase 24 0-40 U/L Total Protein 7.3 6.5-8.0 g/dL Albumin Level 3.9 3.5-5.0 g/dL Alkaline Phosphatase 94 39-117 U/L Lipid Panel with Reflex Reviewed date:08/20/2024 03:16:31 PM Interpretation: Performing Lab:[facility], [address] [place] [phone] Notes/Report: Triglycerides 135 <150 mg/dL Desirable Triglyceride: [...] ff Reviewed date:02/21/2025 05:38:19 PM Interpretation: Performing Lab:[facility], [address] [place] [phone] Notes/Report: White Blood Count 10.0 4.8-10.8 X10*3/uL [...] NRBC Abs Auto 0.000 0.0-0.012 X10*3/uL Comprehensive Lovely. Panel Fa st Reviewed date:02/21/2025 05:34:56 PM Interpretation: Performing Lab:[facility], [address] [place] [phone] Notes/Report: Sodium 143 135-145 mmol/L Potassium 3.8 [...] PROFILE Reviewed date:02/19/2025 12:44:54 PM Interpretation: Performing Lab:[address] [phone] Notes/Report: Iron 63 45-160 mcg/dL Total Iron Binding Capacity 271 228-428 mcg/dL Percent Iron Saturation 23 15-50 % Unsaturated Iron Binding 208 Lipid Panel Reviewed date:02/19/2025 12:44:14 PM Interpretation: Performing Lab:[facility], [address] [place] [phone] Notes/Report: Triglycerides 129 <150 mg/dL Desirable Triglyceride: [...] (Free>4and<10) Reviewed date:02/19/2025 12:45:04 PM Interpretation: Performing Lab:[facility], [address] [place] [phone] Notes/Report: PSA,Total (Free>4and<10) < 0.10 0.00-4.00 ng/mL [...] t Reviewed date:02/21/2025 05:39:18 PM Interpretation: Performing Lab:[facility], [address] [place] [phone] Notes/Report: Urine, Clean Catch Color Urine Dark Yellow Appearance Urine Clear PH 6.5 5.0-9.0 Glucose Urine UA Negative Negative mg/dL Urine Blood Negative Negative Specific Angela - Urine 1.025 1.005-1.025 Urine Protein 30 (1+) Neg-Trace mg/dL Urine Ketones Trace Negative mg/dL Nitrite Urine Negative Negative Leukocyte Esterase Urine Negative Negative RBC Urine 0-2 0-2 /HPF WBC Urine 0-5 0-5 /HPF Squamous Epithelial Cell Urine 0-2 0-2 /HPF Bacteria Urine None Seen None Seen Hyaline Casts Urine 0-2 0-2 /LPF INR WHOLE BLOOD POC Reviewed date:05/28/2024 12:29:45 PM Interpretation: Performing Lab:[facility], [address] [place] [phone] Notes/Report: PT, INR - [facility] 2.3 0.9-1.1 METER #: [id number] INTERNATIONAL NORMALIZED RATIO (INR) REFERENCE RANGES Reference [...] OC Reviewed date:05/28/2024 12:29:33 PM Interpretation: Performing Lab:[facility], [address] [place] [phone] Notes/Report: Prothrombin Time Whole Bld POC 27.5 11.1-13.5 sec INR WHOLE BLOOD POC Reviewed date:06/25/2024 11:32:23 AM Interpretation: Performing Lab:[facility], [address] [place] [phone] Notes/Report: PT, INR - [facility] 3.2 0.9-1.1 METER #: [id number] INTERNATIONAL NORMALIZED RATIO (INR) REFERENCE RANGES Reference [...] OC Reviewed date:06/25/2024 12:15:50 PM Interpretation: Performing Lab:[facility], [address] [place] [phone] Notes/Report: Prothrombin Time Whole Bld POC 38.6 11.1-13.5 sec INR WHOLE BLOOD POC Reviewed date:07/09/2024 11:05:08 AM Interpretation: Performing Lab:[facility], [address] [place] [phone] Notes/Report: PT, INR - [facility] 2.3 0.9-1.1 METER #: [id number] INTERNATIONAL NORMALIZED RATIO (INR) REFERENCE RANGES Reference [...] OC Reviewed date:07/09/2024 12:21:37 PM Interpretation: Performing Lab:[facility], [address] [place] [phone] Notes/Report: Prothrombin Time Whole Bld POC 27.5 11.1-13.5 sec INR WHOLE BLOOD POC Reviewed date:07/22/2024 02:12:43 PM Interpretation: Performing Lab:[facility], [address] [place] [phone] Notes/Report: PT, INR - [facility] 1.8 0.9-1.1 METER #: [id number] INTERNATIONAL NORMALIZED RATIO (INR) REFERENCE RANGES Reference [...] OC Reviewed date:07/22/2024 02:18:21 PM Interpretation: Performing Lab:[facility], [address] [place] [phone] Notes/Report: Prothrombin Time Whole Bld POC 21.8 11.1-13.5 sec INR WHOLE BLOOD POC Reviewed date:08/04/2024 12:06:47 PM Interpretation: Performing Lab:[facility], [address] [place] [phone] Notes/Report: PT, INR - [facility] 2.2 0.9-1.1 METER #: [id number] INTERNATIONAL NORMALIZED RATIO (INR) REFERENCE RANGES Reference [...] OC Reviewed date:08/04/2024 12:04:48 PM Interpretation: Performing Lab:[facility], [address] [place] [phone] Notes/Report: Prothrombin Time Whole Bld POC 25.9 11.1-13.5 sec Hold Gold Reviewed date:08/20/2024 12:43:27 PM Interpretation: Performing Lab:[facility], [address] [place] [phone] Notes/Report: Hold Gold See Note Specimen held untested for 24 hours; Call to request Chemistry testing. INR WHOLE BLOOD POC Reviewed date:08/25/2024 07:57:52 PM Interpretation: Performing Lab:[facility], [address] [place] [phone] Notes/Report: PT, INR - [facility] 2.1 0.9-1.1 METER #: [id number] INTERNATIONAL NORMALIZED RATIO (INR) REFERENCE RANGES Reference [...] OC Reviewed date:08/25/2024 07:57:59 PM Interpretation: Performing Lab:[facility], [address] [place] [phone] Notes/Report: Prothrombin Time Whole Bld POC 25.6 11.1-13.5 sec INR WHOLE BLOOD POC Reviewed date:09/15/2024 09:59:14 AM Interpretation: Performing Lab:[facility], [address] [place] [phone] Notes/Report: PT, INR - [facility] 3.0 0.9-1.1 METER #: [id number] INTERNATIONAL NORMALIZED RATIO (INR) REFERENCE RANGES Reference [...] OC Reviewed date:09/15/2024 12:33:10 PM Interpretation: Performing Lab:[facility], [address] [place] [phone] Notes/Report: Prothrombin Time Whole Bld POC 35.5 11.1-13.5 sec INR WHOLE BLOOD POC Reviewed date:10/06/2024 04:22:44 PM Interpretation: Performing Lab:[facility], [address] [place] [phone] Notes/Report: PT, INR - [facility] 2.0 0.9-1.1 METER #: [id number] INTERNATIONAL NORMALIZED RATIO (INR) REFERENCE RANGES Reference [...] OC Reviewed date:10/06/2024 04:22:36 PM Interpretation: Performing Lab:[facility], [address] [place] [phone] Notes/Report: Prothrombin Time Whole Bld POC 23.5 11.1-13.5 sec Prostate Specific Antigen Reviewed date:10/09/2024 11:16:46 AM Interpretation: Performing Lab:[facility], [address] [place] [phone] Notes/Report: Prostate Specific Antigen < 0.10 <0.05-4.0 ng/mL PSA methodology: Robert Alinity i Chemiluminescent Microparticle Immunoassay (CMIA) INR WHOLE BLOOD POC Reviewed date:10/27/2024 11:14:11 AM Interpretation: Performing Lab:[address] [phone] Notes/Report: PT, INR - [facility] 2.0 0.9-1.1 METER #: [id number] INTERNATIONAL NORMALIZED RATIO (INR) REFERENCE RANGES Reference [...] OC Reviewed date:10/27/2024 11:14:04 AM Interpretation: Performing Lab:[facility], [address] [place] [phone] Notes/Report: Prothrombin Time Whole Bld POC 23.7 11.1-13.5 sec INR WHOLE BLOOD POC Reviewed date:11/10/2024 12:18:48 PM Interpretation: Performing Lab:[facility], [address] [place] [phone] Notes/Report: PT, INR - [facility] 1.8 0.9-1.1 METER #: [id number] INTERNATIONAL NORMALIZED RATIO (INR) REFERENCE RANGES Reference [...] OC Reviewed date:11/10/2024 12:18:37 PM Interpretation: Performing Lab:[facility], [address] [place] [phone] Notes/Report: Prothrombin Time Whole Bld POC 21.5 11.1-13.5 sec INR WHOLE BLOOD POC Reviewed date:11/24/2024 12:04:29 PM Interpretation: Performing Lab:[facility], [address] [place] [phone] Notes/Report: PT, INR - [facility] 2.4 0.9-1.1 METER #: [id number] INTERNATIONAL NORMALIZED RATIO (INR) REFERENCE RANGES Reference [...] OC Reviewed date:11/24/2024 12:04:21 PM Interpretation: Performing Lab:[facility], [address] [place] [phone] Notes/Report: Prothrombin Time Whole Bld POC 28.2 11.1-13.5 sec INR WHOLE BLOOD POC Reviewed date:12/17/2024 12:38:14 PM Interpretation: Performing Lab:[facility], [address] [place] [phone] Notes/Report: PT, INR - [facility] 2.0 0.9-1.1 METER #: [id number] INTERNATIONAL NORMALIZED RATIO (INR) REFERENCE RANGES Reference [...] OC Reviewed date:12/17/2024 12:51:29 PM Interpretation: Performing Lab:[facility], [address] [place] [phone] Notes/Report: Prothrombin Time Whole Bld POC 23.9 11.1-13.5 sec INR WHOLE BLOOD POC Reviewed date:01/07/2025 10:59:51 AM Interpretation: Performing Lab:[facility], [address] [place] [phone] Notes/Report: PT, INR - [facility]ag [facility] 2.2 0.9-1.1 METER #: [id number] INTERNATIONAL NORMALIZED RATIO (INR) REFERENCE RANGES Reference [...] OC Reviewed date:01/07/2025 10:59:22 AM Interpretation: Performing Lab:[facility], [address] [place] [phone] Notes/Report: Prothrombin Time Whole Bld POC 26.4 11.1-13.5 sec INR WHOLE BLOOD POC Reviewed date:02/04/2025 02:25:43 PM Interpretation: Performing Lab:[facility], [address] [place] [phone] Notes/Report: PT, INR - [facility]ag [facility] 3.3 0.9-1.1 METER #: [id number] INTERNATIONAL NORMALIZED RATIO (INR) REFERENCE RANGES Reference [...] OC Reviewed date:02/04/2025 11:35:29 AM Interpretation: Performing Lab:[facility], [address] [place] [phone] Notes/Report: Prothrombin Time Whole Bld POC 39.1 11.1-13.5 sec INR WHOLE BLOOD POC Reviewed date:03/04/2025 10:01:13 AM Interpretation: Performing Lab:[facility], [address] [place] [phone] Notes/Report: PT, INR - [facility]ag [facility] 2.6 0.9-1.1 METER #: [id number] INTERNATIONAL NORMALIZED RATIO (INR) REFERENCE RANGES Reference [...] OC Reviewed date:03/04/2025 10:01:06 AM Interpretation: Performing Lab:[address] [phone] Notes/Report: Prothrombin Time Whole Bld POC 31.0 11.1-13.5 sec Complete Blood Count Auto Di ff Reviewed date:03/21/2025 07:34:37 PM Interpretation: Performing Lab:[address] [phone] Notes/Report: White Blood Count 7.1 4.8-10.8 X10*3/uL [...] INR Reviewed date:03/21/2025 07:30:57 PM Interpretation: Performing Lab:[address] [phone] Notes/Report: Prothrombin Time 30.9 10.9-12.4 SEC INTERNATIONAL [...] Microscopic Reviewed date:03/21/2025 07:33:45 PM Interpretation: Performing Lab:[facility], [address] [place] [phone] Notes/Report: Color Urine Yellow Appearance Urine Clear PH 6.5 5.0-9.0 Glucose Urine UA Negative Negative mg/dL Urine Blood Negative Negative Specific Angela - Urine >= 1.030 1.005-1.025 Urine Protein 100 (2+) Neg-Trace mg/dL Urine Ketones 15 Negative mg/dL Nitrite Urine Negative Negative Leukocyte Esterase Urine Negative Negative RBC Urine 0-2 0-2 /HPF WBC Urine 0-5 0-5 /HPF Squamous Epithelial Cell Urine 3-5 0-2 /HPF Bacteria Urine None Seen None Seen Hyaline Casts Urine 11-20 0-2 /LPF Comprehensive Met. Panel Reviewed date:03/21/2025 07:33:21 PM Interpretation: Performing Lab:[facility], [address] [place] [phone] Notes/Report: Sodium 143 135-145 mmol/L Potassium 3.8 [...] Acid Reviewed date:03/21/2025 07:30:17 PM Interpretation: Performing Lab:[facility], [address] [place] [phone] Notes/Report: Lactic Acid 0.9 0.5-2.0 mmol/L Magnesium Reviewed date:03/21/2025 07:31:06 PM Interpretation: Performing Lab:[facility], [address] [place] [phone] Notes/Report: Magnesium 1.9 1.6-2.6 mg/dL Troponin-I High Sensitivity Reviewed date:03/21/2025 07:30:47 PM Interpretation: Performing Lab:[facility], [address] [place] [phone] Notes/Report: Troponin-I High Sensitivity 29.0 <3.5-35.0 ng/L The Robert high sensitivity Troponin-I results should be used in conjunction with other diagnostic information such as ECG, clinical observations and information, and patient symptoms to aid in the diagnosis of OK. B Type Natriuretic Peptide Reviewed date:03/21/2025 07:31:15 PM Interpretation: Performing Lab:[facility], [address] [place] [phone] Notes/Report: B Type Natriuretic Peptide 214 <100 pg/mL Gram stain Reviewed date:03/23/2025 10:18:58 AM Interpretation: Performing Lab:[facility], [address] [place] [phone] Notes/Report: Gram stain Gram stain results: Gram stain No polys Gram stain 2+ epithelial cells Gram stain 3+ Gram-positive cocci SARS-CoV2/FLU/RSV Reviewed date:03/21/2025 07:30:40 PM Interpretation: Performing Lab:[facility] [address] [phone] Notes/Report: Influenza A PCR NEGATIVE Negative Influenza [...] by authorized laboratories. Testing performed on the [email or web address] GeneXpert utilizing real-time RT-PCR. All SARS CoV2 and positive influenza A/B results are reported to [facility]. Blood Culture (First) Reviewed date:03/26/2025 04:21:01 PM Interpretation: Performing Lab:[address] [phone] Notes/Report: Blood Culture (First) No growth after 5 days. Blood Culture (Second) Reviewed date:03/26/2025 04:21:09 PM Interpretation: Performing Lab:[address] [phone] Notes/Report: Blood Culture (Second) No growth after 5 days. Venous Blood Gases - POC Reviewed date:03/21/2025 07:30:11 PM Interpretation: Performing Lab:[address] [phone] Notes/Report: VBG pH 7.54 7.32-7.43 METER #: [id number] additional_comment: Sushant singh VBG pCO2 56 METER #: [id number] additional_comment: Sushant singh VBG pO2 56 METER #: [id number] additional_comment: Sushant singh VBG Base Excess 22.3 METER #: [id number] additional_comment: Sushant singh VBG HCO3 48 22-26 mmol/L METER #: [id number] additional_comment: Sushant singh VBG O2 % Saturation 88.0 METER #: [id number] additional_comment: Sushant samantha Routine Culture Reviewed date:03/23/2025 10:20:42 AM Interpretation: Performing Lab:[facility], [address] [place] [address] Notes/Report: Routine Culture Report - external Routine Culture 4+ Mixed skin ricci CT soft tissue neck w con Reviewed date:03/21/2025 07:30:02 PM Interpretation: Performing Lab: Notes/Report: [facility] [address] [place] [address] Scan Report Signed Patient: Kalyan Nguyen MR#: [id number] 2742 : 1940 Acct:[id number] Age/Sex: 84 / M ADM Date: 03/20/25 Loc: [facility]- Attending Dr: Zoraida Donovan MD Ordering Physician: Nilsa Card Date of Service: 03/20/25 Procedure(s): CT soft tissue neck w IV con Accession Number(s): [id number] cc: Nilsa Card; Jake Pepper MD Report Number: [id number]: Total DLP = 599.99 mGy-cm CLINICAL HISTORY: [...] in OV> 03/20/252104 DD/ 03 TD/TT: 03/20/252103 Private Investigator: [place] [address] CT Scan Report Signed Patient: Miguel Nguyen MR#: [id number] 2742 : 1940 Acct:[id number] Age/Sex: 84 / M ADM Date: 03/20/25 Loc: [facility]- Attending Dr: Zoraida Donovan MD Ordering Physician: Nilsa Card Date of Service: 03/20/25 Procedure(s): CT sof t tissue neck w IV con Accession Number(s): [id number] cc: Nilsa CardSTALIN; Jake Pepper MD Report Number: [id number]: Total DLP = 599.99 mGy-cm CLINICAL HISTORY: [...] in OV> 03/20/252104 DD/ 03 TD/TT: 03/20/252103 Private Investigator: CT head/brain wo con Reviewed date:03/21/2025 07:29:22 PM Interpretation: Performing Lab: Notes/Report: [address] [address] [address] Scan Report Signed Patient: Kalyan Nguyen MR#: [id number] 2742 : 1940 Acct:[id number] Age/Sex: 84 / M ADM Date: 03/20/25 Loc: [facility]- Attending Dr: Zoraida Donovan MD Ordering Physician: Nilsa Card Date of Service: 03/20/25 Procedure(s): CT head/brain wo IV con Accession Number(s): [id number] cc: Nilsa Card; Jake Pepper MD Report Number: [id number]: Total DLP = 914.64 mGy-cm CLINICAL HISTORY: [...] in OV> 03/20/252105 DD/ 04 TD/TT: 03/20/252104 Private Investigator: [address] [address] [address] Scan Report Signed Patient: Miguel Nguyen MR#: [id number] 2742 : 1940 Acct:[id number] Age/Sex: 84 / M ADM Date: 03/20/25 Loc: [place] [address]: Zoraida Donovan MD Ordering Physician: Nilsa Card [facility] Date of Service: 03/20/25 Procedure(s): CT head/brain wo IV con Accession Number(s): [id number] cc: [facility]; Jake Pepper MD Report Number: [id number]: Total DLP = 914.64 mGy-cm CLINICAL HISTORY: [...] in OV> 03/20/252105 DD/ 04 TD/TT: 03/20/252104 Private Investigator: XR chest 2V Reviewed date:03/21/2025 07:32:02 PM Interpretation: Performing Lab: Notes/Report: [address] [address] XRay Report Signed Patient: Kalyan Nguyen MR#: [id number] 2742 : 1940 Acct:[id number] Age/Sex: 84 / M ADM Date: 03/20/25 [facility]: Ordering Physician: Lisette Graves NP Date of Service: 03/20/25 Procedure(s): XR chest 2V Accession Number(s): [id number] cc: Jake Pepper MD; Lisette Graves NP [...] in OV> 03/20/251727 DD/ 26 TD/TT: 03/20/251726 Private Investigator: [place] [address] XRay Report Signed Patient: Miguel Nguyen MR#: [id number] 2742 : 1940 Acct:[id number] Age/Sex: 84 / M ADM Date: 03/20/25 Loc: [facility] Attending Dr: Ordering Physician: Lisette Graves NP Date of Service: 03/20/25 Procedure(s): XR rhina st 2V Accession Number(s): [id number] cc: Jake Pepper MD; Lisette Graves NP [...] in OV> 03/20/251727 DD/ 26 TD/TT: 03/20/251726 Private Investigator: Troponin-I High Sensitivity Reviewed date:03/21/2025 07:31:34 PM Interpretation: Performing Lab:[facility], [address] [place] [phone] Notes/Report: Troponin-I High Sensitivity 24.4 <3.5-35.0 ng/L The Robert high sensitivity Troponin-I results should be used in conjunction with other diagnostic information such as ECG, clinical observations and information, and patient symptoms to aid in the diagnosis of OK. Complete Blood Count Auto Di ff Reviewed date:03/21/2025 07:34:16 PM Interpretation: Performing Lab:[facility], [address] [place] [phone] Notes/Report: White Blood Count 6.6 4.8-10.8 X10*3/uL [...] INR Reviewed date:03/21/2025 07:32:30 PM Interpretation: Performing Lab:[facility], [address] [place] [phone] Notes/Report: Prothrombin Time 41.4 10.9-12.4 SEC INTERNATIONAL [...] Panel Reviewed date:03/21/2025 07:32:58 PM Interpretation: Performing Lab:[facility], [address] [place] [phone] Notes/Report: Sodium 142 135-145 mmol/L Potassium 3.4 [...] T4 Reviewed date:03/21/2025 07:31:25 PM Interpretation: Performing Lab:[facility], [address] [place] [phone] Notes/Report: TSH reflex Free T4 1.34 0.32-4.0 uIU/mL Respiratory Panel Reviewed date:03/21/2025 07:28:57 PM Interpretation: Performing Lab:[facility], [address] [place] [phone] Notes/Report: Adenovirus PCR Not Detected Not Detect. [...] testing should be considered. Results reported to [facility]. This test has been authorized by [...] is performed by Multiplexed PCR, utilizing the [employer] Array. Prothrombin Time INR Reviewed date:03/22/2025 11:40:38 AM Interpretation: Performing Lab:[address] [phone] Notes/Report: Prothrombin Time 55.7 10.9-12.4 SEC INTERNATIONAL [...] Panel Reviewed date:03/22/2025 12:35:51 PM Interpretation: Performing Lab:[address] [address] Notes/Report: Sodium 138 135-145 mmol/L Potassium 4.1 [...] Random Reviewed date:03/22/2025 04:33:37 PM Interpretation: Performing Lab:[address] [address] Notes/Report: Vancomycin Random 13.0 15-20 mcg/mL Prothrombin Time INR Reviewed date:03/23/2025 10:14:22 AM Interpretation: Performing Lab:[address] [address] Notes/Report: Prothrombin Time 49.6 10.9-12.4 SEC INTERNATIONAL [...] Creatinine Reviewed date:03/23/2025 10:14:33 AM Interpretation: Performing Lab:[facility], [address] [place] [phone] Notes/Report: Creatinine 0.99 0.5-1.4 mg/dL Creatinine Clr [...] POC Reviewed date:04/01/2025 02:15:11 PM Interpretation: Performing Lab:[address] [address] Notes/Report: PT, INR - Anti Coag Clinic 5.4 0.9-1.1 METER #: [id number] Asymptomatic Cleaned Meter Doctor Notified INTERNATIONAL NORMALIZED [...] OC Reviewed date:04/01/2025 02:14:25 PM Interpretation: Performing Lab:[facility], [address] [place] [phone] Notes/Report: Prothrombin Time Whole Bld POC 65.0 11.1-13.5 sec INR WHOLE BLOOD POC Reviewed date:04/05/2025 01:00:12 PM Interpretation: Performing Lab:[facility], [address] [place] [phone] Notes/Report: PT, INR - [facility]ag Clinic 4.7 0.9-1.1 METER #: [id number] INTERNATIONAL NORMALIZED RATIO (INR) REFERENCE RANGES Reference [...] OC Reviewed date:04/05/2025 01:00:04 PM Interpretation: Performing Lab:[facility], [address] [place] [phone] Notes/Report: Prothrombin Time Whole Bld POC 55.9 11.1-13.5 sec INR WHOLE BLOOD POC Reviewed date:04/12/2025 12:38:27 PM Interpretation: Performing Lab:[facility], [address] [place] [phone] Notes/Report: PT, INR - Anti [facility]ag Clinic 4.1 0.9-1.1 METER #: [id number] INTERNATIONAL NORMALIZED RATIO (INR) REFERENCE RANGES Reference [...] OC Reviewed date:04/12/2025 12:38:37 PM Interpretation: Performing Lab:[facility], [address] [place] [phone] Notes/Report: Prothrombin Time Whole Bld POC 49.7 11.1-13.5 sec INR WHOLE BLOOD POC Reviewed date:04/15/2025 04:00:41 PM Interpretation: Performing Lab:[facility], [address] [place] [phone] Notes/Report: PT, INR - [facility] 4.2 0.9-1.1 METER #: [id number] INTERNATIONAL NORMALIZED RATIO (INR) REFERENCE RANGES Reference [...] OC Reviewed date:04/15/2025 04:00:48 PM Interpretation: Performing Lab:[facility], [address] [place] [phone] Notes/Report: Prothrombin Time Whole Bld POC 50.7 11.1-13.5 sec INR WHOLE BLOOD POC Reviewed date:04/19/2025 01:36:50 PM Interpretation: Performing Lab:[facility], [address] [place] [phone] Notes/Report: PT, INR - [facility] 2.7 0.9-1.1 METER #: [id number] INTERNATIONAL NORMALIZED RATIO (INR) REFERENCE RANGES Reference [...] OC Reviewed date:04/19/2025 01:36:41 PM Interpretation: Performing Lab:[facility], [address] [place] [phone] Notes/Report: Prothrombin Time Whole Bld POC 31.9 11.1-13.5 sec INR WHOLE BLOOD POC Reviewed date:04/27/2025 12:19:28 PM Interpretation: Performing [facility] CARE, [address] [place] [phone] Notes/Report: PT, INR - [facility] 2.4 0.9-1.1 METER #: [id number] INTERNATIONAL NORMALIZED RATIO (INR) REFERENCE RANGES Reference [...] OC Reviewed date:04/27/2025 12:19:14 PM Interpretation: Performing Lab:[facility], [address] [place] [phone] Notes/Report: Prothrombin Time Whole Bld POC 29.1 11.1-13.5 sec INR WHOLE BLOOD POC Reviewed date:05/11/2025 02:35:09 PM Interpretation: Performing Lab:[facility], [address] [place] [phone] Notes/Report: PT, INR - [facility] 1.4 0.9-1.1 METER #: [id number] Asymptomatic Doctor Notified INTERNATIONAL NORMALIZED RATIO (INR) [...] OC Reviewed date:05/11/2025 02:31:58 PM Interpretation: Performing Lab:[facility], [address] [place] [phone] Notes/Report: Prothrombin Time Whole Bld POC 16.7 11.1-13.5 sec INR WHOLE BLOOD POC Reviewed date:05/14/2025 04:20:53 PM Interpretation: Performing Lab:[facility], [address] [place] [phone] Notes/Report: PT, INR - [facility] 1.6 0.9-1.1 METER #: [id number] INTERNATIONAL NORMALIZED RATIO (INR) REFERENCE RANGES Reference [...] OC Reviewed date:05/14/2025 04:28:14 PM Interpretation: Performing Lab:[facility], [address] [place] [phone] Notes/Report: Prothrombin Time Whole Bld POC 19.6 11.1-13.5 sec INR WHOLE BLOOD POC Reviewed date:05/20/2025 12:36:55 PM Interpretation: Performing Lab:[address] [phone] Notes/Report: PT, INR - [facility] 1.6 0.9-1.1 METER #: [id number] INTERNATIONAL NORMALIZED RATIO (INR) REFERENCE RANGES Reference [...] Prothrombin Time Whole Bld P OC Reviewed date:05/20/2025 12:36:42 PM Interpretation: Performing Lab:[facility], [address] [place] [phone] Notes/Report: Prothrombin Time Whole Bld POC 19.8 11.1-13.5 sec INR WHOLE BLOOD POC (Not yet reviewed by provider) Interpretation: Performing Lab:[facility], [address] [place] [phone] Notes/Report: PT, INR - [facility] 1.8 0.9-1.1 METER #: [id number] INTERNATIONAL NORMALIZED RATIO (INR) REFERENCE RANGES Reference [...] (Not yet reviewed by provider) Interpretation: Performing Lab:[facility], [address] [place] [phone] Notes/Report: Prothrombin Time Whole Bld POC 21.4 11.1-13.5 sec Reason For Referral Reason please verito nguyen for for alf and any other services he made need Diagnosis 1 Atrial fibrillation, unspecified type (I48.91) Diagnosis 2 COPD without exacerb ation (J44.9) Diagnosis 3 Bilateral leg weakne ss (R29.898) Referral Organization Jake Pepper MD Referring Provider First Name Jake Referring Provider Last Name Evgeny Referring Provider Speciality Internal M edicine Referred Provider [facility] Referred Provider Specialty Unknown General Notes Minerva Duff 0 04/12/2025 11:55:29 AM > referral info faxed, Minerva Duff 04/12/2025 01:22:33 PM >this referral will not be used due to they do not take his insurance. Spoke with [facility] Tiana, she will be working on [...] hrs for 30 days 01/26/2013 Not-Taking Nystatin 756838 UNIT/GM 1 application Externally Twice a day [...] Orally On ce a day Not-Taking Nystatin 588343 UNIT/GM 1 application Externally Twice a day for 10 days 03/19/2025 Active Zolpidem Tartrate 5 MG TAKE 1 TABLET BY MOUTH DAILY AT BEDTIME Orally Once a day for 30 days 03/09/2025 Active Doxycycline Monohydrate 100 MG 1 capsule Orally Once a day Not-Taking Nystatin-Triamcinolone 787467-4.1 UNIT/GM 1 application Externally Twice a day [...] red Fluarix Quadrivalent Unknown 08/05/2018 Administered At On license of [facility] Influenza High Dose IM Intramuscular [...] Problem Status W/U Status Risk Notes Problem 42299918 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 Problem Insomnia (454624720) Insomnia (G47.00) Active confirmed Problem 0236388 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) Active confirmed Problem Cataract (023196981) Unspecified cataract (H26.9) Active confirmed Problem Conductive hearing loss, bilateral (959863705) Conductive hearing loss, 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) Active confirmed Problem 3948379 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) Active confirmed Problem 86270001 Essential hypert ension (I10) Active confirmed Problem 652830309 Prostate cancer (C61) Active confirme d Problem 5483324 Psoriasis (L40.9) Active confirmed Problem 958242584 Lung nodule (R91.1) Active confirmed Problem Low testosterone (382292025) Low testosterone (E29.1) Active confirmed Problem 4478427909811980 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 Problem 996575123 Lung nodules (R91.8) Active confirmed Problem 414962142 Cervical disc di sease (M50.90) Active confirmed Problem 053356033 Tension headache (G44.209) Active confirmed Problem 8155591 Former smoker (Z87.891) Active confirmed Problem Acute exacerbation of chronic obstructive airways disease (867033950) COPD exacerbation (J44.1) Active confirmed Problem Postherpetic neuralgia (9444721) Post herpetic neuralgia (B02.29) Active confirmed Problem 33910175 Dysthymia (F34.1) Active confirmed Problem Iron deficiency anemia (38378098) Iron deficiency anemia, unspecified iron deficiency anemia type (D50.9) Active confirmed Problem 23733343 Atrial fibrillat ion, unspecified type (I48.91) Active confirmed Problem 4736587 Urinary obstruct ion (N13.9) Active confirmed Problem Leukocytosis (773609948) Elevated WBC count (D72.829) Active confirmed Problem 79521998 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 confirmed Problem 192588936 Pure hypercholesterolemia (E78.00) Active confirmed Problem 152385158 BMI 30.0-30.9,ad ult (Z68.30) Active confirmed Problem 383562467 COPD with exacer bation (J44.1) Active confirmed Problem 495658977 Hypertensive cri sis (I16.9) Active confirmed Problem Gout (55937644) Acute gout, unspecified cause, unspecified site (M10.9) Active confirmed Problem 79995823 COPD without exacerbation (J44.9) Active confirmed Problem Gout (35063271) Acute gout of ri ght knee, unspecified cause (M10.9) Active confirmed Problem 992782511 Mixed conductive and sensorineural hearing loss of [...] Date Provider Diagnosis Jake Pepper MD [address] [place] [address] [address] [place] [address] [id number] 08/20/2024 Jake Bombardier Pure hypercholestero lemia E78.00 Jake Pepper MD [address] [place] [address] [id number] 02/19/2025 Jake Pepper Blood tests for rout ine general physical examination Z00.00 ; Essential hypertension I10 ; Pure hypercholesterolemia E78.00 and Iron deficiency anemia, unspecified iron deficiency anemia type D50.9 Jake Pepper MD [address] [place] [address] [id number] 07/07/2024 Jake Pepper Tension headache G44 .209 Jake Pepper MD [address] [place] [address] [id number] 08/27/2024 Jake Pepper Essential hypertensi on I10 ; Pure hypercholesterolemia E78.00 ; Atrial fibrillation, unspecified type I48.91 and COPD without exacerbation J44.9 Jake Pepper MD [address] [place] [address] [id number] 01/22/2025 Jake Pepper Panlobular emphysema J43.1 ; Atrial fibrillation, unspecified type I48.91 and Unspecified cataract H26.9 Jake Pepper MD [address] [place] [address] [id number] 02/26/2025 aJke Pepper Essential hypertensi on I10 ; Annual physical exam Z00.00 ; Panlobular emphysema J43.1 ; Pure hypercholesterolemia E78.00 ; Dysthymia F34.1 ; Iron deficiency anemia, unspecified iron deficiency anemia type D50.9 and Depression screening Z13.31 Jake Pepper MD [address] [place] [address] [id number] 03/18/2025 Jake Pepper Thrush B37.0 Jake Pepper MD [address] [place] [address] [id number] 03/29/2025 Jake Pepper Essential hypertensi on I10 ; Panlobular emphysema J43.1 ; Shingles B02.9 and Thrush B37.0 Jake Pepper MD [address] [place] [address] [id number] 04/05/2025 Jake Pepper Post herpetic neural dung B02.29 ; Skin tear of right forearm without complication, initial encounter S51.801A ; Essential hypertension I10 and Atrial fibrillation, unspecified type I48.91 Jake Pepper MD [address] [place] [address] [id number] 04/20/2025 Jake Pepper Post herpetic neural dung B02.29 ; Skin tear of right forearm without complication, initial encounter S51.801A and Atrial fibrillation, unspecified type I48.91 Jake Pepper MD [address] [place] [address] [id number] 12/21/2024 Jake Pepper MD [address] [place] [address] [id number] 02/19/2025 Jake Pepper MD [address] [place] [address] [id number] 03/19/2025 Jake Pepper MD [address] [place] [address] [id number] 03/26/2025 Jake Pepper MD [address] [place] [address] [id number] 04/01/2025 Jake Pepper MD [address] [place] [address] [id number] 04/13/2025 Jake Pepper MD [address] [place] [address] [id number] 05/07/2025 Jake Pepper MD [address] [place] [address] [id number] 05/11/2025 Jake Pepper MD [address] [place] [address] [id number] 06/07/2024 Jake Pepper Insomnia G47.00 Jake Pepper MD [address] [place] [address] [id number] 07/07/2024 Jake Pepper Insomnia G47.00 Jake Pepper MD [address] [place] [address] [id number] 08/06/2024 Jake Pepper Insomnia G47.00 Jake Pepper MD [address] [place] [address] [id number] 09/02/2024 Jake Pepper Insomnia G47.00 Jake Pepper MD [address] [place] [address] [id number] 10/05/2024 Jake Bombardier Insomnia G47.00 Jake Pepper MD [address] [place] [address] [id number] 11/08/2024 Jake Bombardier Insomnia G47.00 Jake Pepper MD [address] [place] [address] [id number] 12/07/2024 Jake Bombardier Insomnia G47.00 Jake Pepper MD [address] [place] [address] [id number] 01/06/2025 Jake Bombardier Insomnia G47.00 Jake Pepper MD [address] [place] [address] [id number] 02/05/2025 Jake Bombardier Insomnia G47.00 Jake Pepper MD [address] [place] [address] [id number] 02/10/2025 Jake Pepper MD [address] [place] [address] [id number] 02/12/2025 Jake Pepper MD [address] [place] [address] [id number] 03/08/2025 Jake Bombardier Insomnia G47.00 Assessments Encounter [...] 10/15/2022 Folate 02/09/2021 INR WHOLE BLOOD POC 05/27/2025 Prothrombin Time Whole Bld POC Future Test Test Name Order Date CT chest wo con 02/04/2023 Next Appt Details Provider Name:Jake schmidt, 08/19/2025 07:00:00 AM, [address], [address], [place], [phone], Provider Name:Jake Miller ier, 08/26/2025 10:00:00 AM, [address], [address], [place], [phone], Provider Name:Jake Miller ier, 02/24/2026 07:15:00 AM, [address], [address], [place], [phone], Provider Name:Jake Miller ier, 03/03/2026 09:30:00 AM, [address], [address], [place], [place], [phone], Insurance Providers Payer Name Payer Address Payer Phone Subscriber Number Group Number Insured Name Patient Relationship to Insured Coverage Start Date Coverage End Date [employer] [address] [place] [phone] [id number] Kalyan Nguyen Self - patient is the insured MEDICARE [address] [place] [address] [id number] Kalyan Nguyen Self - patient is the insured Medical (General) History Medical History History ICD Code 03/2004 - colonoscopy (repea t 10 years); colonoscopy [address] Rajput Smoker unmotivated to quit F17.210 biculatimide and finasteraide for prosta te cancer Surgical History Surgery Date(Month/Year) Repair of Umbilical Hernia w/Mesh (Dr. Darrell guido) 04/2019
--- OUTSIDE RECORDS SUMMARY | 2025-05-27 11:43 | XMS_ITS | Patient Health Record ---
Author Organization [facility] Address [address] [place] [phone] Care Team Providers Care Undercutter Name Role Phone Jake Pepper MD Primary Care Provider Luther Rajput Jr [facility] Allergies Allergen (clinical drug ingredient) Drug/Non [...] Problem Status W/U Status Risk Notes Problem 551589918 Colon cancer screening (V76.51) Active confirmed Problem 465052063 Aspirin long-term use (V58.66) Active confirmed Plan Of Treatment Future Test Test Name Order Date COLONOSCOPY 07/29/2014 Insurance Providers Payer Name Payer Address Payer Phone Subscriber Number Group Number Insured Name Patient Relationship to Insured Coverage Start Date Coverage End Date [facility] [address] [place] [phone] [id number] CORNELIA JUAREZ Self - patient is the insured Medicare of [place] [employer] [address] [place] [address] [id number] CORNELIA JUAREZ Self - patient is the insured Medical (General) History Medical History History ICD Code prostate problems hypertension elevated cholesterol Surgical History Surgery Date(Month/Year) back surgery knee surgery
== END 2025-05-27 10:49 | disposition home or self-care (01) ==
LOC: HO.ACS 10:13
PROVIDERS: PCP Internal Medicine; Visit Provider Internal Medicine Medical Oncology
DX: Z79.01 Long term (current) use of anticoagulants (principal)

== ENCOUNTER → 2025-05-27 10:13 | Outpatient (BNVA) | payer MEDICARE, SELFPAY | PROVIDERS: PCP Internal Medicine; Visit Provider Internal Medicine Medical Oncology | DX: I48.0 Paroxysmal atrial fibrillation (principal); Z79.01 Long term (current) use of anticoagulants; Z51.81 Encounter for therapeutic drug level monitoring | CPT/HCPCS: 85610; 99211 ==

== ENCOUNTER 2025-06-01 09:25 | Outpatient (AMB) | payer MEDICARE, SELFPAY ==
--- OUTSIDE RECORDS SUMMARY | 2025-04-20 06:00 | XMS_ITS ---
Author Organization Jake Pepper MD Address [address] [place], [place] [phone] Care Team Providers Care Director Call Center Sales Name Role Phone Jake Pepper Primary [...] CAPSULE BY MOUTH TWICE DAILY Active Nystatin 874473 UNIT/GM 1 application Externally Twice a day for 30 days 05/29/2022 Active Nystatin 526418 UNIT/GM 1 application Externally Twice a day [...] 14 DAYS Oral for 14 Not-Taking Nystatin-Triamcinolone 752894-6.1 UNIT/GM 1 application Externally Twice a day [...] Location Date Provider Diagnosis Jake Pepper MD [address] [place] [address] [place] [phone] 04/20/2025 Jake Pepper Post herpetic neuralgia B02.29 [...] Reason: Provider Name:Jake schmidt, 08/19/2025 07:00:00 AM, [address] [place] [address], [address] [place] [address], [phone], Provider Name:Jake schmidt, 08/26/2025 10:00:00 AM, [address] [place] [address], [address] [place] [address], [phone], Provider Name:Jake schmidt, 02/24/2026 07:15:00 AM, [address] [place] [address], [address], [phone], Provider Name:Jake Miller ier, 03/03/2026 09:30:00 AM, [address], [address], [place], [place], [phone], Progress Notes * Kalyan JUAREZ RDOB: [birth year] (84 yo M)Acc No.[id number]:04/20/2025 Progress Notes Patient: Kalyan KENNEDY Provider: Aly Pepper MD :1940 A ge:84 Y S ex:Male Date:04/20/2025 Address:[address] [place], [place] [address]Mitesh [place], [id number] Subjective: * Chief Complaints: * 2 WEEK [...] 1 tablet Orally Once a day Nystatin 175433 UNIT/GM Ointment 1 application Externally Twice a day Tamsulosin HCl 0.4 MG Capsule TAKE 1 CAPSULE BY MOUTH TWICE DAILY Atorvastatin Calcium 40 MG Tablet 1 tablet Orally Once a day Zolpidem Tartrate 5 MG Tablet TAKE 1 TABLET BY MOUTH DAILY AT BEDTIME Orally Once a day Nystatin 765247 UNIT/GM Cream 1 application Externally Twice a [...] tablet Orally Once a day Taking Nystatin 809661 UNIT/GM Ointment 1 application Externally Twice a day Taking Tamsulosin HCl 0.4 MG Capsule TAKE 1 CAPSULE BY MOUTH TWICE DAILY Taking Atorvastatin Calcium 40 MG Tablet 1 tablet Orally Once a day Taking Zolpidem Tartrate 5 MG Tablet TAKE 1 TABLET BY MOUTH DAILY AT BEDTIME Orally Once a day Taking Nystatin 141846 UNIT/GM Cream 1 application Externally Twice a [...] 1 puff Inhalation Twice a day Nystatin-Triamcinolone 445980-5.1 UNIT/GM Cream 1 application Externally Twice a [...] puff Inhalation Twice a day Not-Taking/PRN Nystatin-Triamcinolone 346327-2.1 UNIT/GM Cream 1 application Externally Twice a [...] 04/20/2025 Generated for Mabel trotter/Ashish/Franciscoitting on: 0 06/01/2025 10:00 AM EDT History and Physical Notes * [...]
--- OUTSIDE RECORDS SUMMARY | 2025-05-07 06:44 | XMS_ITS ---
Author Organization Jake Pepper MD Address [address] [place], [place] [phone] Care Team Providers Care Auto Body Mechanic Name Role Phone Jake Pepper Primary Care Provider [phone] REASON FOR VISIT RE GABAPENTIN Encounters Encounter Location Date Provider Diagnosis Jake Pepper MD [address] [place] [phone] 05/07/2025 Jake Pepper Plan Of Treatment Next Appt Details Provider Name:Jake schmidt, 08/19/2025 07:00:00 AM, [address] [place] [address], [address], [phone], Provider Name:Jake schmidt, 08/26/2025 10:00:00 AM, [address], [address], [place], [phone], Provider Name:Jake Miller kenyar, 02/24/2026 07:15:00 AM, [address], [address], [place], [place], [phone], Provider Name:Jake Miller kenyar, 03/03/2026 09:30:00 AM, [address] [facility], [address], [place], [place], [phone], Progress Notes * Kalyan JUAREZ RDOB: [birth year] (84 yo M)Acc No.[id number]:05/07/2025 Patient: Carmen VIRAMONTESKalyan :1940 A ge:84 Y S ex:Male Address:[address] [place] [phone] * true * Date: Generated for Mabel trotter/Ashish/Erikasmitting on: 0 06/01/2025 10:00 AM EDT
--- OUTSIDE RECORDS SUMMARY | 2025-05-11 06:57 | XMS_ITS ---
Author Organization Jaek Pepper MD Address [address] [place], [place] [phone] Care Team Providers Care Maintenance Service Dispatcher Name Role Phone Jake Pepper Primary Care Provider [phone] REASON FOR VISIT INR of 1.4 Encounters Encounter Location Date Provider Diagnosis Jake Pepper MD [address] [place], [place] [phone] 05/11/2025 Jake Pepper Plan Of Treatment Next Appt Details Provider Name:Jake schmidt, 08/19/2025 07:00:00 AM, 10 [facility], Suite [facility], [place], [place], [phone], Provider Name:Jake schmidt, 08/26/2025 10:00:00 AM, [address], [address], [place], [phone], Provider Name:Jake Miller roxana, 02/24/2026 07:15:00 AM, [address] [facility] [address], [address], [place], [phone], Provider Name:Jake Miller roxana, 03/03/2026 09:30:00 AM, 10 [facility], [address], [place], [phone], Progress Notes * Klayan JUAREZ RDOB: [birth year] (84 yo M)Acc No.[id number]:05/11/2025 Patient: Carmen VIRAMONTESKalyan :1940 A ge:84 Y S ex:Male Address:[address] [place] [address] [place] [address] * true * Date: Generated for Mabel trotter/Ashish/eTmartinsmitting on: 0 06/01/2025 10:00 AM EDT
[2025-06-01 09:26] VITALS: BP 127/60; PULSE 100; O2SAT 91; BMI 27.9
--- NOTE | 2025-06-01 09:26 | MHC.OFFVIS ---
Vital Signs 06/01/25 09:26 Height 5 ft 7 in Weight 178 lb BMI 27.9 BP 127/60 Blood Pressure Location Rt brachial Position Sitting Pulse 100 Pulse Source Pulse Oximeter Pulse Oximetry (%) 91 L Oxygen Delivery Method Nasal Cannula Intake Visit Reasons: COPD Allergies pneumococcal vaccine (PNEUMOCOCCAL VACCINE) Allergy (Intermediate, Verified 05/27/25 10:22) RASH amoxicillin (From Augmentin) Allergy (Unknown, Verified 05/27/25 10:22) Swelling clavulanic acid (From Augmentin) Allergy (Unknown, Verified 05/27/25 10:22) Swelling theophylline Adverse Reaction (Intermediate, Verified 05/27/25 10:22) Loss of Appetite HPI HPI COPD: Details: 84-year-old gentleman, greater than 50 pack-year smoker, quit 2018 followed for moderate to severe COPD supplementary oxygen at 2 L at rest and 3 L with exertion dependent and dyspnea on exertion with suboptimal compliance with oxygen therapy.? He continues on DuoNebs, and albuterol MDI with reasonable control of his symptoms. He was not able to afford Anoro/Yupelri/Ohtuvayre and he was not able to tolerate theophylline secondary to GI side effects. His lower extremity edema is well controlled on current dose of Lasix 60 mg daily. He denies recent exacerbations. He does complain of ongoing shingles. [facility] Medical History Non-STEMI (non-ST elevated myocardial infarction) Paronychia Hypertensive emergency Vertigo Permanent atrial fibrillation Radiation cystitis High cholesterol Gout Hypertension Essential hypertension Prostate cancer Pulmonary nodules COPD (chronic obstructive pulmonary disease) Surgical History History of spinal surgery Family History Father No problems noted. Mother No problems noted. 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 Current occupational exposures/hazards: No Review of Systems Const Denies daytime sleepiness, Denies excessive sweating, Denies fatigue, Denies fever(s), Denies lethargy, Denies malaise, Denies night sweats, Denies snoring and Denies weight loss Eyes Denies blurry vision and Denies itchy eyes ENT Denies nasal congestion, Denies post nasal drip, Denies sinus pain, Denies sinus pressure and Denies other ( Thrush) Card Denies chest pain, Denies pedal edema, Denies dyspnea, Reports dyspnea on exertion, Denies orthopnea and Denies paroxysmal nocturnal dyspnea Resp Denies cough, Denies hemoptysis, Denies excessive phlegm production, Denies dyspnea, Reports dyspnea on exertion, Denies snoring and Denies wheezing GI Denies abdominal pain and Denies heartburn Musc Denies myalgias, Denies arthralgias and Denies joint swelling Skin/Breast Denies rash Neuro Denies memory loss and Denies seizure-like activity Psych Denies abnormal sleep pattern, Denies anxiety and Denies memory loss Endo Denies excessive sweating, Denies fatigue and Denies heat intolerance Alexander/Lymph Denies easy bruising Aller/Immun Denies itchy eyes, Denies seasonal rhinorrhea and Denies wheezing Physical Exam Vital Signs: Last Vital Signs Pulse 100 06/01/25 09:26 BP 127/60 06/01/25 09:26 Pulse Ox 91 L 06/01/25 09:26 Oxygen Delivery Method Nasal Cannula 06/01/25 09:26 BMI result Body Mass Index 27.9 Const General: no acute distress and alert Nutritional Appearance: not obese Orientation/consciousness: Other orientation findings ( oriented) HEENT Head: Yes atraumatic Eyes General: appearance normal, both eyes and all related structures Sclerae: sclerae normal EOM: EOMs intact bilaterally Neck Neck: Yes supple Lymphatic: no lymphadenopathy noted Resp Effort & Inspection: normal respiratory effort and no use of accessory muscles Auscultation: clear to auscultation bilaterally Cardio Rate: regular rate Rhythm: regular rhythm Heart sounds: no gallops, no murmurs and no rubs Skin General skin exam: other ( warm) Extrem General: No clubbing, No cyanosis and No edema Assessment & Plan Assessment & Plan (1) COPD (chronic obstructive pulmonary disease): Code(s): J44.9 - Chronic obstructive pulmonary disease, unspecified Category: Medical Plan: Reasonable control on current regimen of duo nebs and albuterol MDI. Continue current regimen. (2) Supplemental oxygen dependent: Code(s): Z99.81 - Dependence on supplemental oxygen Category: Medical Plan: Continue supplemental oxygen to maintain O2 saturation of 89-92%. Now requires 3 L with exertion and 2 with rest. Coding Level of Care Code Est Pt Level 4 (99033) Diagnoses COPD (chronic obstructive pulmonary disease) J44.9 Supplemental oxygen dependent Z99.81
--- OUTSIDE RECORDS SUMMARY | 2025-06-01 10:00 | XMS_ITS | Patient Health Record ---
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 Name Role Phone Jake Pepper Primary Care Provider [phone] Allergies Allergen (clinical drug ingredient) Drug/Non Drug Allergy documented on EMR Reaction Allergy Type Onset Date Status Lamisil rash Drug Allergy Active Vaccine product containing Streptococcus pneumoniae antigen (medicinal product) Pneumovax (uncoded) local reaction redness Allergy Active Results Component Value Reference Range Notes Liver Panel Reviewed date:08/20/2024 03:17:01 PM Interpretation: Performing Lab:[facility], [address] [place] [phone] Notes/Report: Bilirubin Total 0.7 0.0-1.0 mg/dL Bilirubin Direct 0.3 0.0-0.5 mg/dL Aspartate Amino Transferase 42 5-37 U/L Alanine Aminotransferase 24 0-40 U/L Total Protein 7.3 6.5-8.0 g/dL Albumin Level 3.9 3.5-5.0 g/dL Alkaline Phosphatase 94 39-117 U/L Lipid Panel with Reflex Reviewed date:08/20/2024 03:16:31 PM Interpretation: Performing Lab:[facility], [address] [place] [phone] Notes/Report: Triglycerides 135 <150 mg/dL Desirable Triglyceride: [...] ff Reviewed date:02/21/2025 05:38:19 PM Interpretation: Performing Lab:[facility], [address] [place] [phone] Notes/Report: White Blood Count 10.0 4.8-10.8 X10*3/uL [...] NRBC Abs Auto 0.000 0.0-0.012 X10*3/uL Comprehensive [place]. Panel Fa st Reviewed date:02/21/2025 05:34:56 PM Interpretation: Performing Lab:[facility], [address] [place] [phone] Notes/Report: Sodium 143 135-145 mmol/L Potassium 3.8 [...] PROFILE Reviewed date:02/19/2025 12:44:54 PM Interpretation: Performing Lab:[address] [phone] Notes/Report: Iron 63 45-160 mcg/dL Total Iron Binding Capacity 271 228-428 mcg/dL Percent Iron Saturation 23 15-50 % Unsaturated Iron Binding 208 Lipid Panel Reviewed date:02/19/2025 12:44:14 PM Interpretation: Performing Lab:[facility], [address] [place] [phone] Notes/Report: Triglycerides 129 <150 mg/dL Desirable Triglyceride: [...] (Free>4and<10) Reviewed date:02/19/2025 12:45:04 PM Interpretation: Performing Lab:[facility], [address] [place] [phone] Notes/Report: PSA,Total (Free>4and<10) < 0.10 0.00-4.00 ng/mL [...] t Reviewed date:02/21/2025 05:39:18 PM Interpretation: Performing Lab:[facility], [address] [place] [phone] Notes/Report: Urine, Clean Catch Color Urine Dark Yellow Appearance Urine Clear PH 6.5 5.0-9.0 Glucose Urine UA Negative Negative mg/dL Urine Blood Negative Negative Specific [place] - Urine 1.025 1.005-1.025 Urine Protein 30 (1+) Neg-Trace mg/dL Urine Ketones Trace Negative mg/dL Nitrite Urine Negative Negative Leukocyte Esterase Urine Negative Negative RBC Urine 0-2 0-2 /HPF WBC Urine 0-5 0-5 /HPF Squamous Epithelial Cell Urine 0-2 0-2 /HPF Bacteria Urine None Seen None Seen Hyaline Casts Urine 0-2 0-2 /LPF INR WHOLE BLOOD POC Reviewed date:06/25/2024 11:32:23 AM Interpretation: Performing Lab:[facility], [address] [place] [phone] Notes/Report: PT, INR - [facility] 3.2 0.9-1.1 METER #: [id number] INTERNATIONAL NORMALIZED RATIO (INR) REFERENCE RANGES Reference [...] OC Reviewed date:06/25/2024 12:15:50 PM Interpretation: Performing Lab:[facility], [address] [place] [phone] Notes/Report: Prothrombin Time Whole Bld POC 38.6 11.1-13.5 sec INR WHOLE BLOOD POC Reviewed date:07/09/2024 11:05:08 AM Interpretation: Performing Lab:[facility], [address] [place] [phone] Notes/Report: PT, INR - [facility] 2.3 0.9-1.1 METER #: [id number] INTERNATIONAL NORMALIZED RATIO (INR) REFERENCE RANGES Reference [...] OC Reviewed date:07/09/2024 12:21:37 PM Interpretation: Performing Lab:[facility], [address] [place] [phone] Notes/Report: Prothrombin Time Whole Bld POC 27.5 11.1-13.5 sec INR WHOLE BLOOD POC Reviewed date:07/22/2024 02:12:43 PM Interpretation: Performing Lab:[facility], [address] [place] [phone] Notes/Report: PT, INR - [facility] 1.8 0.9-1.1 METER #: [id number] INTERNATIONAL NORMALIZED RATIO (INR) REFERENCE RANGES Reference [...] OC Reviewed date:07/22/2024 02:18:21 PM Interpretation: Performing Lab:[facility], [address] [place] [phone] Notes/Report: Prothrombin Time Whole Bld POC 21.8 11.1-13.5 sec INR WHOLE BLOOD POC Reviewed date:08/04/2024 12:06:47 PM Interpretation: Performing Lab:[facility], [address] [place] [phone] Notes/Report: PT, INR - [facility]ag [facility] 2.2 0.9-1.1 METER #: [id number] INTERNATIONAL NORMALIZED RATIO (INR) REFERENCE RANGES Reference [...] OC Reviewed date:08/04/2024 12:04:48 PM Interpretation: Performing Lab:[facility], [address] [place] [phone] Notes/Report: Prothrombin Time Whole Bld POC 25.9 11.1-13.5 sec Kari Wallace Reviewed date:08/20/2024 12:43:27 PM Interpretation: Performing Lab:[facility], [address] [place] [phone] Notes/Report: Kari Wallace See Note Specimen held untested for 24 hours; Call to request Chemistry testing. INR WHOLE BLOOD POC Reviewed date:08/25/2024 07:57:52 PM Interpretation: Performing Lab:[facility], [address] [place] [phone] Notes/Report: PT, INR - Anti Coag Clinic 2.1 0.9-1.1 METER #: [id number] INTERNATIONAL NORMALIZED RATIO (INR) REFERENCE RANGES Reference [...] OC Reviewed date:08/25/2024 07:57:59 PM Interpretation: Performing Lab:[facility], [address] [place] [phone] Notes/Report: Prothrombin Time Whole Bld POC 25.6 11.1-13.5 sec INR WHOLE BLOOD POC Reviewed date:09/15/2024 09:59:14 AM Interpretation: Performing Lab:[facility], [address] [place] [phone] Notes/Report: PT, INR - Anti Coag Clinic 3.0 0.9-1.1 METER #: [id number] INTERNATIONAL NORMALIZED RATIO (INR) REFERENCE RANGES Reference [...] OC Reviewed date:09/15/2024 12:33:10 PM Interpretation: Performing Lab:[facility], [address] [place] [phone] Notes/Report: Prothrombin Time Whole Bld POC 35.5 11.1-13.5 sec INR WHOLE BLOOD POC Reviewed date:10/06/2024 04:22:44 PM Interpretation: Performing Lab:[facility], [address] [place] [phone] Notes/Report: PT, INR - Anti Coag Clinic 2.0 0.9-1.1 METER #: [id number] INTERNATIONAL NORMALIZED RATIO (INR) REFERENCE RANGES Reference [...] OC Reviewed date:10/06/2024 04:22:36 PM Interpretation: Performing Lab:[facility], [address] [place] [phone] Notes/Report: Prothrombin Time Whole Bld POC 23.5 11.1-13.5 sec Prostate Specific Antigen Reviewed date:10/09/2024 11:16:46 AM Interpretation: Performing Lab:[facility], [address] [place] [phone] Notes/Report: Prostate Specific Antigen < 0.10 <0.05-4.0 ng/mL PSA methodology: Robert Alinity i Chemiluminescent Microparticle Immunoassay (CMIA) INR WHOLE BLOOD POC Reviewed date:10/27/2024 11:14:11 AM Interpretation: Performing Lab:[facility], [address] [place] [phone] Notes/Report: PT, INR - [facility]ag [facility] 2.0 0.9-1.1 METER #: [id number] INTERNATIONAL NORMALIZED RATIO (INR) REFERENCE RANGES Reference [...] OC Reviewed date:10/27/2024 11:14:04 AM Interpretation: Performing Lab:[facility], [address] [place] [phone] Notes/Report: Prothrombin Time Whole Bld POC 23.7 11.1-13.5 sec INR WHOLE BLOOD POC Reviewed date:11/10/2024 12:18:48 PM Interpretation: Performing Lab:[facility], [address] [place] [phone] Notes/Report: PT, INR - [facility] Coag Clinic 1.8 0.9-1.1 METER #: [id number] INTERNATIONAL NORMALIZED RATIO (INR) REFERENCE RANGES Reference [...] OC Reviewed date:11/10/2024 12:18:37 PM Interpretation: Performing Lab:[facility], [address] [place] [phone] Notes/Report: Prothrombin Time Whole Bld POC 21.5 11.1-13.5 sec INR WHOLE BLOOD POC Reviewed date:11/24/2024 12:04:29 PM Interpretation: Performing Lab:[facility], [address] [place] [phone] Notes/Report: PT, INR - Anti Coag Clinic 2.4 0.9-1.1 METER #: [id number] INTERNATIONAL NORMALIZED RATIO (INR) REFERENCE RANGES Reference [...] OC Reviewed date:11/24/2024 12:04:21 PM Interpretation: Performing Lab:[facility], [address] [place] [phone] Notes/Report: Prothrombin Time Whole Bld POC 28.2 11.1-13.5 sec INR WHOLE BLOOD POC Reviewed date:12/17/2024 12:38:14 PM Interpretation: Performing Lab:[facility], [address] [place] [phone] Notes/Report: PT, INR - Anti Coag Clinic 2.0 0.9-1.1 METER #: [id number] INTERNATIONAL NORMALIZED RATIO (INR) REFERENCE RANGES Reference [...] OC Reviewed date:12/17/2024 12:51:29 PM Interpretation: Performing Lab:[facility], [address] [place] [phone] Notes/Report: Prothrombin Time Whole Bld POC 23.9 11.1-13.5 sec INR WHOLE BLOOD POC Reviewed date:01/07/2025 10:59:51 AM Interpretation: Performing Lab:[facility], [address] [place] [phone] Notes/Report: PT, INR - Anti Coag Clinic 2.2 0.9-1.1 METER #: [id number] INTERNATIONAL NORMALIZED RATIO (INR) REFERENCE RANGES Reference [...] OC Reviewed date:01/07/2025 10:59:22 AM Interpretation: Performing Lab:[facility], [address] [place] [phone] Notes/Report: Prothrombin Time Whole Bld POC 26.4 11.1-13.5 sec INR WHOLE BLOOD POC Reviewed date:02/04/2025 02:25:43 PM Interpretation: Performing Lab:[facility], [address] [place] [phone] Notes/Report: PT, INR - Anti Coag Clinic 3.3 0.9-1.1 METER #: [id number] INTERNATIONAL NORMALIZED RATIO (INR) REFERENCE RANGES Reference [...] OC Reviewed date:02/04/2025 11:35:29 AM Interpretation: Performing Lab:[facility], [address] [place] [phone] Notes/Report: Prothrombin Time Whole Bld POC 39.1 11.1-13.5 sec INR WHOLE BLOOD POC Reviewed date:03/04/2025 10:01:13 AM Interpretation: Performing Lab:[facility], [address] [place] [phone] Notes/Report: PT, INR - Anti Coag Clinic 2.6 0.9-1.1 METER #: [id number] INTERNATIONAL NORMALIZED RATIO (INR) REFERENCE RANGES Reference [...] OC Reviewed date:03/04/2025 10:01:06 AM Interpretation: Performing Lab:[facility], [address] [place] [phone] Notes/Report: Prothrombin Time Whole Bld POC 31.0 11.1-13.5 sec Complete Blood Count Auto Di ff Reviewed date:03/21/2025 07:34:37 PM Interpretation: Performing Lab:[facility], [address] [place] [phone] Notes/Report: White Blood Count 7.1 4.8-10.8 X10*3/uL [...] INR Reviewed date:03/21/2025 07:30:57 PM Interpretation: Performing Lab:[address] [phone] Notes/Report: Prothrombin Time 30.9 10.9-12.4 SEC INTERNATIONAL [...] Microscopic Reviewed date:03/21/2025 07:33:45 PM Interpretation: Performing Lab:[address] [phone] Notes/Report: Color Urine Yellow Appearance Urine Clear PH 6.5 5.0-9.0 Glucose Urine UA Negative Negative mg/dL Urine Blood Negative Negative Specific [place] - Urine >= 1.030 1.005-1.025 Urine Protein 100 (2+) Neg-Trace mg/dL Urine Ketones 15 Negative mg/dL Nitrite Urine Negative Negative Leukocyte Esterase Urine Negative Negative RBC Urine 0-2 0-2 /HPF WBC Urine 0-5 0-5 /HPF Squamous Epithelial Cell Urine 3-5 0-2 /HPF Bacteria Urine None Seen None Seen Hyaline Casts Urine 11-20 0-2 /LPF Comprehensive Met. Panel Reviewed date:03/21/2025 07:33:21 PM Interpretation: Performing Lab:[facility], [address] [place] [phone] Notes/Report: Sodium 143 135-145 mmol/L Potassium 3.8 3.3-5.1 mmol/L Chloride 89 96-108 mmol/L Carbon Dioxide 43 22-29 mmol/L Critical value for test(s): BIC Results called to and read back by:ANWDarrell Person calling: [email or web address] Date: 03/20/2025 Time:16:45 Anion Gap 15 12-20 [...] Acid Reviewed date:03/21/2025 07:30:17 PM Interpretation: Performing Lab:[facility], [address] [place] [phone] Notes/Report: Lactic Acid 0.9 0.5-2.0 mmol/L Magnesium Reviewed date:03/21/2025 07:31:06 PM Interpretation: Performing Lab:[facility], [address] [place] [phone] Notes/Report: Magnesium 1.9 1.6-2.6 mg/dL Troponin-I High Sensitivity Reviewed date:03/21/2025 07:30:47 PM Interpretation: Performing Lab:[facility], [address] [place] [phone] Notes/Report: Troponin-I High Sensitivity 29.0 <3.5-35.0 ng/L The Robert high sensitivity Troponin-I results should be used in conjunction with other diagnostic information such as ECG, clinical observations and information, and patient symptoms to aid in the diagnosis of OR. B Type Natriuretic Peptide Reviewed date:03/21/2025 07:31:15 PM Interpretation: Performing Lab:[facility], [address] [place] [phone] Notes/Report: B Type Natriuretic Peptide 214 <100 pg/mL Gram stain Reviewed date:03/23/2025 10:18:58 AM Interpretation: Performing Lab:[facility], [address] [place] [phone] Notes/Report: Gram stain Gram stain results: Gram stain No polys Gram stain 2+ epithelial cells Gram stain 3+ Gram-positive cocci SARS-CoV2/FLU/RSV Reviewed date:03/21/2025 07:30:40 PM Interpretation: Performing Lab:[facility], [address] [place] [phone] Notes/Report: Influenza A PCR NEGATIVE Negative Influenza [...] by authorized laboratories. Testing performed on the [email or web address] GeneXpert utilizing real-time RT-PCR. All SARS CoV2 and positive influenza A/B results are reported to [facility]. Blood Culture (First) Reviewed date:03/26/2025 04:21:01 PM Interpretation: Performing Lab:[facility], [address] [place] [phone] Notes/Report: Blood Culture (First) No growth after 5 days. Blood Culture (Second) Reviewed date:03/26/2025 04:21:09 PM Interpretation: Performing Lab:[facility], [address] [place] [phone] Notes/Report: Blood Culture (Second) No growth after 5 days. Venous Blood Gases - POC Reviewed date:03/21/2025 07:30:11 PM Interpretation: Performing Lab:[facility], [address] [place] [phone] Notes/Report: VBG pH 7.54 7.32-7.43 METER #: [id number] additional_comment: Cb samantha VBG pCO2 56 METER #: [id number] additional_comment: Cb samantha VBG pO2 56 METER #: [id number] additional_comment: Sushant singh VBG Base Excess 22.3 METER #: [id number] additional_comment: Sushant singh VBG HCO3 48 22-26 mmol/L METER #: [id number] additional_comment: Sushant singh VBG O2 % Saturation 88.0 METER #: [id number] additional_comment: Sushant singh Routine Culture Reviewed date:03/23/2025 10:20:42 AM Interpretation: Performing Lab:[facility], [address] [place] [phone] Notes/Report: Routine Culture Report - external Routine Culture 4+ Mixed skin ricci CT soft tissue neck w con Reviewed date:03/21/2025 07:30:02 PM Interpretation: Performing Lab: Notes/Report: [address] [address] [address] Scan Report Signed Patient: Kalyan Nguyen MR#: [id number] 2742 : 1940 Acct:[id number] Age/Sex: 84 / M ADM Date: 03/20/25 Loc: [place] [address]: Zoraida Donovan MD Ordering Physician: Nilsa Card Date of Service: 03/20/25 Procedure(s): CT soft tissue neck w IV con Accession Number(s): [id number] cc: Nilsa Card; Jake Pepper MD Report Number: [id number]: Total DLP = 599.99 mGy-cm CLINICAL HISTORY: [...] in OV> 03/20/252104 DD/ 03 TD/TT: 03/20/252103 Water Aerobics Instructor: [place] [address] CT Scan Report Signed Patient: Miguel Nguyen MR#: [id number] 2742 : 1940 Acct:[id number] Age/Sex: 84 / M ADM Date: 03/20/25 Loc: [place] [address]: Zoraida Donovan MD Ordering Physician: Nilsa Card Date of Service: 03/20/25 Procedure(s): CT sof t tissue neck w IV con Accession Number(s): [id number] cc: Nilsa CardSTALIN; Jake Pepper MD Report Number: [id number]: Total DLP = 599.99 mGy-cm CLINICAL HISTORY: [...] in OV> 03/20/252104 DD/ 03 TD/TT: 03/20/252103 Water Aerobics Instructor: CT head/brain wo con Reviewed date:03/21/2025 07:29:22 PM Interpretation: Performing Lab: Notes/Report: [address] [address] [address] Scan Report Signed Patient: Kalyan Nguyen MR#: [id number] 2742 : 1940 Acct:[id number] Age/Sex: 84 / M ADM Date: 03/20/25 Loc: [facility]- Attending Dr: Zoraida Donovan MD Ordering Physician: Nilsa Card Date of Service: 03/20/25 Procedure(s): CT head/brain wo IV con Accession Number(s): [id number] cc: Nilsa Card; Jake Pepper MD Report Number: [id number]: Total DLP = 914.64 mGy-cm CLINICAL HISTORY: [...] in OV> 03/20/252105 DD/ 04 TD/TT: 03/20/252104 Water Aerobics Instructor: [place] [address] CT Scan Report Signed Patient: Miguel Nguyen MR#: [id number] 2742 : 1940 Acct:[id number] Age/Sex: 84 / M ADM Date: 03/20/25 Loc: [place] [address]: Zoraida Donovan MD Ordering Physician: Nilsa Card Date of Service: 03/20/25 Procedure(s): CT head/brain wo IV con Accession Number(s): [id number] cc: Nilsa Card; Jake Pepper MD Report Number: [id number]: Total DLP = 914.64 mGy-cm CLINICAL HISTORY: [...] in OV> 03/20/252105 DD/ 04 TD/TT: 03/20/252104 Water Aerobics Instructor: XR chest 2V Reviewed date:03/21/2025 07:32:02 PM Interpretation: Performing Lab: Notes/Report: [address] [address] XRay Report Signed Patient: Kalyan Nguyen MR#: [id number] 2742 : 1940 Acct:[id number] Age/Sex: 84 / M ADM Date: 03/20/25 Loc: [facility] Attending Dr: Ordering Physician: Lisette Graves NP Date of Service: 03/20/25 Procedure(s): XR chest 2V Accession Number(s): [id number] cc: Jake Pepper MD; Lisette Graves NP [...] in OV> 03/20/251727 DD/ 26 TD/TT: 03/20/251726 Water Aerobics Instructor: [address] [address] XRay Report Signed Patient: Miguel Nguyen MR#: [id number] 2742 : 1940 Acct:[id number] Age/Sex: 84 / M ADM Date: 03/20/25 Loc: [facility] Attending Dr: Ordering Physician: Lisette Graves NP Date of Service: 03/20/25 Procedure(s): XR rhina st 2V Accession Number(s): [id number] cc: Jake Pepper MD; Lisette Graves NP [...] in OV> 03/20/251727 DD/ 26 TD/TT: 03/20/251726 Water Aerobics Instructor: Troponin-I High Sensitivity Reviewed date:03/21/2025 07:31:34 PM Interpretation: Performing Lab:[facility], [address] [place] [phone] Notes/Report: Troponin-I High Sensitivity 24.4 <3.5-35.0 ng/L The Robert high sensitivity Troponin-I results should be used in conjunction with other diagnostic information such as ECG, clinical observations and information, and patient symptoms to aid in the diagnosis of OR. Complete Blood Count Auto Di ff Reviewed date:03/21/2025 07:34:16 PM Interpretation: Performing Lab:[facility], [address] [place] [phone] Notes/Report: White Blood Count 6.6 4.8-10.8 X10*3/uL [...] INR Reviewed date:03/21/2025 07:32:30 PM Interpretation: Performing Lab:[address] [address] Notes/Report: Prothrombin Time 41.4 10.9-12.4 SEC INTERNATIONAL [...] Panel Reviewed date:03/21/2025 07:32:58 PM Interpretation: Performing Lab:[address] [address] Notes/Report: Sodium 142 135-145 mmol/L Potassium 3.4 [...] T4 Reviewed date:03/21/2025 07:31:25 PM Interpretation: Performing Lab:[facility], [address] [place] [phone] Notes/Report: TSH reflex Free T4 1.34 0.32-4.0 uIU/mL Respiratory Panel Reviewed date:03/21/2025 07:28:57 PM Interpretation: Performing Lab:[facility], [address] [place] [phone] Notes/Report: Adenovirus PCR Not Detected Not Detect. [...] should be considered. Results reported to [facility]. This test has been authorized by [...] is performed by Multiplexed PCR, utilizing the [employer] Array. Prothrombin Time INR Reviewed date:03/22/2025 11:40:38 AM Interpretation: Performing Lab:[facility], [address] [place] [phone] Notes/Report: Prothrombin Time 55.7 10.9-12.4 SEC INTERNATIONAL [...] Panel Reviewed date:03/22/2025 12:35:51 PM Interpretation: Performing Lab:[address] [address] Notes/Report: Sodium 138 135-145 mmol/L Potassium 4.1 [...] Random Reviewed date:03/22/2025 04:33:37 PM Interpretation: Performing Lab:[address] [address] Notes/Report: Vancomycin Random 13.0 15-20 mcg/mL Prothrombin Time INR Reviewed date:03/23/2025 10:14:22 AM Interpretation: Performing Lab:[address] [address] Notes/Report: Prothrombin Time 49.6 10.9-12.4 SEC INTERNATIONAL [...] Creatinine Reviewed date:03/23/2025 10:14:33 AM Interpretation: Performing Lab:[address] [address] Notes/Report: Creatinine 0.99 0.5-1.4 mg/dL Creatinine Clr [...] POC Reviewed date:04/01/2025 02:15:11 PM Interpretation: Performing Lab:[address] [address] Notes/Report: PT, INR - Anti Coag Clinic 5.4 0.9-1.1 METER #: [id number] Asymptomatic Cleaned Meter Doctor Notified INTERNATIONAL NORMALIZED [...] OC Reviewed date:04/01/2025 02:14:25 PM Interpretation: Performing Lab:[address] [address] Notes/Report: Prothrombin Time Whole Bld POC 65.0 11.1-13.5 sec INR WHOLE BLOOD POC Reviewed date:04/05/2025 01:00:12 PM Interpretation: Performing Lab:[address] [place] [address] Notes/Report: PT, INR - Anti Coag Clinic 4.7 0.9-1.1 METER #: [id number] INTERNATIONAL NORMALIZED RATIO (INR) REFERENCE RANGES Reference [...] OC Reviewed date:04/05/2025 01:00:04 PM Interpretation: Performing Lab:[facility], [address] [place] [phone] Notes/Report: Prothrombin Time Whole Bld POC 55.9 11.1-13.5 sec INR WHOLE BLOOD POC Reviewed date:04/12/2025 12:38:27 PM Interpretation: Performing Lab:[facility], [address] [place] [phone] Notes/Report: PT, INR - Anti Coag Clinic 4.1 0.9-1.1 METER #: [id number] INTERNATIONAL NORMALIZED RATIO (INR) REFERENCE RANGES Reference [...] OC Reviewed date:04/12/2025 12:38:37 PM Interpretation: Performing Lab:[facility], [address] [place] [address] Notes/Report: Prothrombin Time Whole Bld POC 49.7 11.1-13.5 sec INR WHOLE BLOOD POC Reviewed date:04/15/2025 04:00:41 PM Interpretation: Performing Lab:[address] [address] Notes/Report: PT, INR - Anti Coag Clinic 4.2 0.9-1.1 METER #: [id number] INTERNATIONAL NORMALIZED RATIO (INR) REFERENCE RANGES Reference [...] OC Reviewed date:04/15/2025 04:00:48 PM Interpretation: Performing Lab:[facility], [address] [place] [phone] Notes/Report: Prothrombin Time Whole Bld POC 50.7 11.1-13.5 sec INR WHOLE BLOOD POC Reviewed date:04/19/2025 01:36:50 PM Interpretation: Performing Lab:[facility], [address] [place] [phone] Notes/Report: PT, INR - [facility] 2.7 0.9-1.1 METER #: [id number] INTERNATIONAL NORMALIZED RATIO (INR) REFERENCE RANGES Reference [...] OC Reviewed date:04/19/2025 01:36:41 PM Interpretation: Performing Lab:[facility], [address] [place] [phone] Notes/Report: Prothrombin Time Whole Bld POC 31.9 11.1-13.5 sec INR WHOLE BLOOD POC Reviewed date:04/27/2025 12:19:28 PM Interpretation: Performing Lab:[facility], [address] [place] [phone] Notes/Report: PT, INR - [facility] 2.4 0.9-1.1 METER #: [id number] INTERNATIONAL NORMALIZED RATIO (INR) REFERENCE RANGES Reference [...] OC Reviewed date:04/27/2025 12:19:14 PM Interpretation: Performing Lab:[facility], [address] [place] [phone] Notes/Report: Prothrombin Time Whole Bld POC 29.1 11.1-13.5 sec INR WHOLE BLOOD POC Reviewed date:05/11/2025 02:35:09 PM Interpretation: Performing Lab:[facility], [address] [place] [phone] Notes/Report: PT, INR - [facility] 1.4 0.9-1.1 METER #: [id number] Asymptomatic Doctor Notified INTERNATIONAL NORMALIZED RATIO (INR) [...] OC Reviewed date:05/11/2025 02:31:58 PM Interpretation: Performing Lab:[facility], [address] [place] [phone] Notes/Report: Prothrombin Time Whole Bld POC 16.7 11.1-13.5 sec INR WHOLE BLOOD POC Reviewed date:05/14/2025 04:20:53 PM Interpretation: Performing Lab:[facility], [address] [place] [phone] Notes/Report: PT, INR - [facility] 1.6 0.9-1.1 METER #: [id number] INTERNATIONAL NORMALIZED RATIO (INR) REFERENCE RANGES Reference [...] OC Reviewed date:05/14/2025 04:28:14 PM Interpretation: Performing Lab:[facility], [address] [place] [phone] Notes/Report: Prothrombin Time Whole Bld POC 19.6 11.1-13.5 sec INR WHOLE BLOOD POC Reviewed date:05/20/2025 12:36:55 PM Interpretation: Performing Lab:[facility], [address] [place] [phone] Notes/Report: PT, INR - [facility] 1.6 0.9-1.1 METER #: [id number] INTERNATIONAL NORMALIZED RATIO (INR) REFERENCE RANGES Reference [...] OC Reviewed date:05/20/2025 12:36:42 PM Interpretation: Performing Lab:[facility], [address] [place] [phone] Notes/Report: Prothrombin Time Whole Bld POC 19.8 11.1-13.5 sec INR WHOLE BLOOD POC Reviewed date:05/27/2025 12:31:20 PM Interpretation: Performing Lab:[address] [phone] Notes/Report: PT, INR - [facility] 1.8 0.9-1.1 METER #: [id number] INTERNATIONAL NORMALIZED RATIO (INR) REFERENCE RANGES Reference [...] Prothrombin Time Whole Bld P OC Reviewed date:05/27/2025 12:31:13 PM Interpretation: Performing Lab:[facility], [address] [place] [phone] Notes/Report: Prothrombin Time Whole Bld POC 21.4 11.1-13.5 sec Reason For Referral Reason please verito nguyen for for jail and any other services he made need Diagnosis 1 Atrial fibrillation, unspecified type (I48.91) Diagnosis 2 COPD without exacerb ation (J44.9) Diagnosis 3 Bilateral leg weakne ss (R29.898) Referral Organization Jake Pepper MD Referring Provider First Name Jake Referring Provider Last Name Evgeny Referring Provider Speciality Internal M edicine Referred Provider [facility], [facility] Referred Provider Specialty Unknown General Notes Minerva Duff 0 04/12/2025 11:55:29 AM > referral info faxed, Minerva Duff 04/12/2025 01:22:33 PM >this referral will not be used due to they do not take his insurance. Spoke with [facility] Montiel, she will [...] hrs for 30 days 01/26/2013 Not-Taking Nystatin 614658 UNIT/GM 1 application Externally Twice a day [...] Orally On ce a day Not-Taking Nystatin 412464 UNIT/GM 1 application Externally Twice a day for 10 days 03/19/2025 Active Zolpidem Tartrate 5 MG TAKE 1 TABLET BY MOUTH DAILY AT BEDTIME Orally Once a day for 30 days 03/09/2025 Active Doxycycline Monohydrate 100 MG 1 capsule Orally Once a day Not-Taking Nystatin-Triamcinolone 406486-4.1 UNIT/GM 1 application Externally Twice a day [...] Fluarix Quadrivalent Unknown 08/05/2018 Administered At work [facility] Influenza High Dose IM Intramuscular [...] Problem Status W/U Status Risk Notes Problem 10437998 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 Problem Insomnia (898665395) Insomnia (G47.00) Active confirmed Problem 9591825 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) Active confirmed Problem Cataract (139181524) Unspecified cataract (H26.9) Active confirmed Problem Conductive hearing loss, bilateral (723986705) Conductive hearing loss, 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) Active confirmed Problem 1843139 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) Active confirmed Problem 24919275 Essential hypert ension (I10) Active confirmed Problem 507161867 Prostate cancer (C61) Active confirme d Problem 9730863 Psoriasis (L40.9) Active confirmed Problem 608744546 Lung nodule (R91.1) Active confirmed Problem Low testosterone (774180649) Low testosterone (E29.1) Active confirmed Problem 7105757887053846 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 Problem 110806154 Lung nodules (R91.8) Active confirmed Problem 172629249 Cervical disc di sease (M50.90) Active confirmed Problem 993073312 Tension headache (G44.209) Active confirmed Problem 8308234 Former smoker (Z87.891) Active confirmed Problem Acute exacerbation of chronic obstructive airways disease (678364705) COPD exacerbation (J44.1) Active confirmed Problem Postherpetic neuralgia (5664229) Post herpetic neuralgia (B02.29) Active confirmed Problem 00227009 Dysthymia (F34.1) Active confirmed Problem Iron deficiency anemia (97164361) Iron deficiency anemia, unspecified iron deficiency anemia type (D50.9) Active confirmed Problem 55711926 Atrial fibrillat ion, unspecified type (I48.91) Active confirmed Problem 8877220 Urinary obstruct ion (N13.9) Active confirmed Problem Leukocytosis (996844022) Elevated WBC count (D72.829) Active confirmed Problem 61278700 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 confirmed Problem 604219419 Pure hypercholesterolemia (E78.00) Active confirmed Problem 450225054 BMI 30.0-30.9,ad ult (Z68.30) Active confirmed Problem 888519685 COPD with exacer bation (J44.1) Active confirmed Problem 859753140 Hypertensive cri sis (I16.9) Active confirmed Problem Gout (30936401) Acute gout, unspecified cause, unspecified site (M10.9) Active confirmed Problem 45867834 COPD without exacerbation (J44.9) Active confirmed Problem Gout (23897733) Acute gout of ri ght knee, unspecified cause (M10.9) Active confirmed Problem 203469576 Mixed conductive and sensorineural hearing loss of [...] Jake Pepper MD [address] [place] [id number] 08/20/2024 Jake Pepper Pure hypercholestero lemia E78.00 Jake Pepper MD [address] [place] [address] [id number] 02/19/2025 Jake Pepper Blood tests for rout ine general physical examination Z00.00 ; Essential hypertension I10 ; Pure hypercholesterolemia E78.00 and Iron deficiency anemia, unspecified iron deficiency anemia type D50.9 Jake Pepper MD [address] [place] [address] [id number] 07/07/2024 Jake Pepper Tension headache G44 .209 Jake Pepper MD [address] [place] [address] [id number] 08/27/2024 Jake Pepper Essential hypertensi on I10 ; Pure hypercholesterolemia E78.00 ; Atrial fibrillation, unspecified type I48.91 and COPD without exacerbation J44.9 Jake Pepper MD [address] [place] [address] [id number] 01/22/2025 Jake Bombardier Panlobular emphysema J43.1 ; Atrial fibrillation, unspecified type I48.91 and Unspecified cataract H26.9 Jake Pepper MD [address] [place] [address] [id number] 02/26/2025 Jake Pepper Essential hypertensi on I10 ; Annual physical exam Z00.00 ; Panlobular emphysema J43.1 ; Pure hypercholesterolemia E78.00 ; Dysthymia F34.1 ; Iron deficiency anemia, unspecified iron deficiency anemia type D50.9 and Depression screening Z13.31 Jake Pepper MD [address] [place] [address] [id number] 03/18/2025 Jake Pepper Thrush B37.0 Jake Pepper MD [address] [place] [address] [id number] 03/29/2025 Jake Pepper Essential hypertensi on I10 ; Panlobular emphysema J43.1 ; Shingles B02.9 and Thrush B37.0 Jake Pepper MD [address] [place] [address] [id number] 04/05/2025 Jake Pepper Post herpetic neural dung B02.29 ; Skin tear of right forearm without complication, initial encounter S51.801A ; Essential hypertension I10 and Atrial fibrillation, unspecified type I48.91 Jake Pepper MD [address] [place] [address] [id number] 04/20/2025 Jake Pepper Post herpetic neural dung B02.29 ; Skin tear of right forearm without complication, initial encounter S51.801A and Atrial fibrillation, unspecified type I48.91 Jake Pepper MD [address] [place] [address] [id number] 12/21/2024 Jake Pepper MD [address] [place] [address] [id number] 02/19/2025 Jake Pepper MD [address] [place] [address] [id number] 03/19/2025 Jake Pepper MD [address] [place] [address] [id number] 03/26/2025 Jake Pepper MD [address] [place] [address] [id number] 04/01/2025 Jake Pepper MD [address] [place] [address] [id number] 04/13/2025 Jake Pepper MD [address] [place] [address] [id number] 05/07/2025 Jake Pepper MD [address] [place] [address] [id number] 05/11/2025 Jake Pepper MD [address] [place] [address] [id number] 06/07/2024 Jake Pepper Insomnia G47.00 Jake Pepper MD [address] [place] [address] [id number] 07/07/2024 Jake Pepper Insomnia G47.00 Jake Pepper MD [address] [place] [address] [id number] 08/06/2024 Jake Pepper Insomnia G47.00 Jake Pepper MD [address] [place] [address] [id number] 09/02/2024 Jake Pepper Insomnia G47.00 Jake Pepper MD [address] [place] [address] [id number] 10/05/2024 Jake Pepper Insomnia G47.00 Jake Pepper MD [address] [place] [address] [id number] 11/08/2024 Jake Pepper Insomnia G47.00 Jake Pepper MD [address] [place] [address] [id number] 12/07/2024 Jake Pepper Insomnia G47.00 Jake Pepper MD [address] [place] [address] [id number] 01/06/2025 Jake Pepper Insomnia G47.00 Jake Pepper MD [address] [place] [address] [id number] 02/05/2025 Jake Oliveiraer Insomnia G47.00 Jake Pepper MD [address] [place] [address] [id number] 02/10/2025 Jake Pepper MD [address] [place], [place] [id number] 02/12/2025 Jake Pepper MD [address] [place], [place] [id number] 03/08/2025 Jake Pepper Insomnia G47.00 Assessments Encounter [...] con 02/04/2023 Next Appt Details Provider Name:Jake zambranor, 08/19/2025 07:00:00 AM, [address] [place] [address], [address], [id number], Provider Name:Jake zambranor, 08/26/2025 10:00:00 AM, [address] [place] [address], [address], [id number], Provider Name:Jake Miller ier, 02/24/2026 07:15:00 AM, [address] [place] [address], [address], [phone], Provider Name:Jake Miller ier, 03/03/2026 09:30:00 AM, [address] [place] [address], [address], [id number], Insurance Providers Payer Name Payer Address Payer Phone Subscriber Number Group Number Insured Name Patient Relationship to Insured Coverage Start Date Coverage End Date [employer]AN [address] [place] [phone] [id number] Kalyan Nguyen Self - patient is the insured MEDICARE [employer] [address] [place] [id number] Kalyan Nguyen Self - patient is the insured Medical (General) History Medical History History ICD Code 03/2004 - colonoscopy (repea t 10 years); colonoscopy [address] Rajput Smoker unmotivated to quit F17.210 biculatimide and finasteraide for prosta te cancer Surgical History Surgery Date(Month/Year) Repair of Umbilical Hernia w/Mesh (Dr. Darrell guido) 04/2019
--- OUTSIDE RECORDS SUMMARY | 2025-06-01 10:01 | XMS_ITS | Clinical Summary ---
Author Organization [facility] Address [address] [facility] [place] [address] Care Team Providers Care Manufacturing Engineering Technician Name Role Phone Jake Pepper MD [...] 84 2019 3:05 PM EST Temperature 36.8 C (98.2 F) 07/16/2018 2:47 PM EDT Respiratory Rate 13 07/16/2018 2:47 PM EDT [...] PNEUMOCOCCAL VACCINE (2 - PCV) 07/12/2009 07/12/2008 BMI CHECK/ADVISE 10/07/2024 2019, 08/13/2019 INFLUENZA (#1) 2025 08/03/2019, 07/09, 07/10/2018, Additional history exists Care Teams Manufacturing Engineering Technician Relationship Specialty Start Date End Date Jake Pepper MD PCP - General Internal Medicine 02/24/18
--- OUTSIDE RECORDS SUMMARY | 2025-06-01 10:01 | XMS_ITS | Patient Health Record ---
Author Organization [facility] Address [address] [place] [phone] Care Team Providers Care Outside Sales Inspector Name Role Phone Jake Pepper MD Primary Care Provider [facility] Allergies Allergen (clinical drug ingredient) Drug/Non Drug [...] Problem Status W/U Status Risk Notes Problem 860647515 Colon cancer screening (V76.51) Active confirmed Problem 684183605 Aspirin long-term use (V58.66) Active confirmed Plan Of Treatment Future Test Test Name Order Date COLONOSCOPY 07/29/2014 Insurance Providers Payer Name Payer Address Payer Phone Subscriber Number Group Number Insured Name Patient Relationship to Insured Coverage Start Date Coverage End Date [facility] [address] [place] [phone] [id number] CORNELIA JUAREZ Self - patient is the insured Medicare of [place] [employer] [address] [place] [address] [id number] CORNELIA JUAREZ Self - patient is the insured Medical (General) History Medical History History ICD Code prostate problems hypertension elevated cholesterol Surgical History Surgery Date(Month/Year) back surgery knee surgery
== END 2025-06-01 09:51 | disposition home or self-care (01) ==
LOC: HO.HPS 09:25
PROVIDERS: PCP Internal Medicine; Visit Provider Internal Medicine Pulmonary Disease
DX: J44.9 Chronic obstructive pulmonary disease, unspecified (principal); Z99.81 Dependence on supplemental oxygen
CPT/HCPCS: 99214

== ENCOUNTER → 2025-06-01 09:25 | Outpatient (BNVA) | payer MEDICARE, SELFPAY | PROVIDERS: PCP Internal Medicine; Visit Provider Internal Medicine Pulmonary Disease | DX: J44.9 Chronic obstructive pulmonary disease, unspecified (principal); Z99.81 Dependence on supplemental oxygen | CPT/HCPCS: 99212 ==

== ENCOUNTER 2025-06-03 10:42 | Outpatient (REF) | payer MEDICARE, SELFPAY ==
--- OUTSIDE RECORDS SUMMARY | 2025-04-20 06:00 | XMS_ITS ---
Author Organization Jake Pepper MD Address [address] [place], [place] [phone] Care Team Providers Care Cafeteria Worker Name Role Phone Jake Pepper Primary [...] CAPSULE BY MOUTH TWICE DAILY Active Nystatin 820525 UNIT/GM 1 application Externally Twice a day for 30 days 05/29/2022 Active Nystatin 893110 UNIT/GM 1 application Externally Twice a day [...] 14 DAYS Oral for 14 Not-Taking Nystatin-Triamcinolone 255859-9.1 UNIT/GM 1 application Externally Twice a day [...] Location Date Provider Diagnosis Jake Pepper MD [address] [place] [address] [place] [phone] 04/20/2025 Jake Pepper Post herpetic neuralgia B02.29 [...] Reason: Provider Name:Jake schmidt, 08/19/2025 07:00:00 AM, [address] [place] [address], [address] [place] [address], [phone], Provider Name:Jake schmidt, 08/26/2025 10:00:00 AM, [address] [place] [address], [address] [place] [address], [phone], Provider Name:Jake schmidt, 02/24/2026 07:15:00 AM, [address] [place] [address], [address], [phone], Provider Name:Jake Miller ier, 03/03/2026 09:30:00 AM, [address], [address], [place], [place], [phone], Progress Notes * Kalyan JUAREZ RDOB: [birth year] (84 yo M)Acc No.[id number]:04/20/2025 Progress Notes Patient: Kalyan KENNEDY Provider: Aly Pepper MD :1940 A ge:84 Y S ex:Male Date:04/20/2025 Address:[address] [place], [place] [address]Mitesh [place], [id number] Subjective: * Chief Complaints: * 2 WEEK [...] 1 tablet Orally Once a day Nystatin 128223 UNIT/GM Ointment 1 application Externally Twice a day Tamsulosin HCl 0.4 MG Capsule TAKE 1 CAPSULE BY MOUTH TWICE DAILY Atorvastatin Calcium 40 MG Tablet 1 tablet Orally Once a day Zolpidem Tartrate 5 MG Tablet TAKE 1 TABLET BY MOUTH DAILY AT BEDTIME Orally Once a day Nystatin 619539 UNIT/GM Cream 1 application Externally Twice a [...] tablet Orally Once a day Taking Nystatin 633448 UNIT/GM Ointment 1 application Externally Twice a day Taking Tamsulosin HCl 0.4 MG Capsule TAKE 1 CAPSULE BY MOUTH TWICE DAILY Taking Atorvastatin Calcium 40 MG Tablet 1 tablet Orally Once a day Taking Zolpidem Tartrate 5 MG Tablet TAKE 1 TABLET BY MOUTH DAILY AT BEDTIME Orally Once a day Taking Nystatin 251048 UNIT/GM Cream 1 application Externally Twice a [...] 1 puff Inhalation Twice a day Nystatin-Triamcinolone 509711-1.1 UNIT/GM Cream 1 application Externally Twice a [...] puff Inhalation Twice a day Not-Taking/PRN Nystatin-Triamcinolone 602176-0.1 UNIT/GM Cream 1 application Externally Twice a [...] 04/20/2025 Generated for Mabel trotter/Ashish/Franciscoitting on: 0 06/03/2025 12:10 PM EDT History and Physical Notes * [...]
--- OUTSIDE RECORDS SUMMARY | 2025-05-07 06:44 | XMS_ITS ---
Author Organization Jake Pepper MD Address [address] [place], [place] [phone] Care Team Providers Care Research Quality Assurance Analyst Name Role Phone Jake Pepper Primary Care Provider REASON FOR VISIT RE GABAPENTIN Encounters Encounter Location Date Provider Diagnosis Jake Pepper MD [address] [place], [place] [phone] 05/07/2025 Jake Pepper Plan Of Treatment Next Appt Details Provider Name:Jake schmidt, 08/19/2025 07:00:00 AM, [address] [place] [address], [address], [phone], Provider Name:Jake schmidt, 08/26/2025 10:00:00 AM, [address], [address], [place], [phone], Provider Name:Jake Miller kenyar, 02/24/2026 07:15:00 AM, [address] [facility], [address], [place], [phone], Provider Name:Jake Miller kenayr, 03/03/2026 09:30:00 AM, [address] [facility], [address], [place], [place], [phone], Progress Notes * Kalyan JUAREZ RDOB: [birth year] (84 yo M)Acc No.[id number]:05/07/2025 Patient: Carmen VIRAMONTESKalyan :1940 A ge:84 Y S ex:Male Address:[address] [place] [address] * true * Date: Generated for Mabel trotter/Ashish/Erikasmitting on: 0 06/03/2025 12:10 PM EDT
--- OUTSIDE RECORDS SUMMARY | 2025-05-11 06:57 | XMS_ITS ---
Author Organization Jake Pepper MD Address [address] [place], [place] [phone] Care Team Providers Care Bench Assembler Operator Name Role Phone Jake Pepper Primary Care Provider [phone] REASON FOR VISIT INR of 1.4 Encounters Encounter Location Date Provider Diagnosis Jake Pepper MD [address] [place], [place] [phone] 05/11/2025 Jake Pepper Plan Of Treatment Next Appt Details Provider Name:Jake schmidt, 08/19/2025 07:00:00 AM, 10 [facility], Suite [facility], [place], [place], [phone], Provider Name:Jake schmidt, 08/26/2025 10:00:00 AM, [address], [address], [place], [phone], Provider Name:Jake Miller roxana, 02/24/2026 07:15:00 AM, [address] [facility] [address], [address], [place], [place], [phone], Provider Name:Jake Miller roxana, 03/03/2026 09:30:00 AM, [address] [facility] [address], [address], [place], [phone], Progress Notes * Kalyan JUAREZ RDOB: [birth year] (84 yo M)Acc No.[id number]:05/11/2025 Patient: Carmen VIRAMONTESKalyan :1940 A ge:84 Y S ex:Male Address:[address] [place] [address] [place] [address] * true * Date: Generated for Mabel trotter/Ashish/Erikasmitting on: 0 06/03/2025 12:10 PM EDT
--- OUTSIDE RECORDS SUMMARY | 2025-06-03 12:10 | XMS_ITS | Patient Health Record ---
Author Organization Jake Pepper MD Address [address] [place], [place] [id number] Care Team Providers Care Curb Attendant Name Role Phone Jake Pepper Primary Care Provider Allergies Allergen (clinical drug ingredient) Drug/Non Drug Allergy documented on EMR Reaction Allergy Type Onset Date Status Lamisil rash Drug Allergy Active Vaccine product containing Streptococcus pneumoniae antigen (medicinal product) Pneumovax (uncoded) local reaction redness Allergy Active Results Component Value Reference Range Notes Liver Panel Reviewed date:08/20/2024 03:17:01 PM Interpretation: Performing Lab:[facility], [address] [place] [phone] Notes/Report: Bilirubin Total 0.7 0.0-1.0 mg/dL Bilirubin Direct 0.3 0.0-0.5 mg/dL Aspartate Amino Transferase 42 5-37 U/L Alanine Aminotransferase 24 0-40 U/L Total Protein 7.3 6.5-8.0 g/dL Albumin Level 3.9 3.5-5.0 g/dL Alkaline Phosphatase 94 39-117 U/L Lipid Panel with Reflex Reviewed date:08/20/2024 03:16:31 PM Interpretation: Performing Lab:[facility], [address] [place] [phone] Notes/Report: Triglycerides 135 <150 mg/dL Desirable Triglyceride: [...] ff Reviewed date:02/21/2025 05:38:19 PM Interpretation: Performing Lab:[facility], [address] [place] [address] Notes/Report: White Blood Count 10.0 4.8-10.8 X10*3/uL [...] NRBC Abs Auto 0.000 0.0-0.012 X10*3/uL Comprehensive [place]. Panel Fa st Reviewed date:02/21/2025 05:34:56 PM Interpretation: Performing Lab:[facility], [address] [place] [address] Notes/Report: Sodium 143 135-145 mmol/L Potassium 3.8 [...] PROFILE Reviewed date:02/19/2025 12:44:54 PM Interpretation: Performing Lab:[address] [address] Notes/Report: Iron 63 45-160 mcg/dL Total Iron Binding Capacity 271 228-428 mcg/dL Percent Iron Saturation 23 15-50 % Unsaturated Iron Binding 208 Lipid Panel Reviewed date:02/19/2025 12:44:14 PM Interpretation: Performing Lab:[facility], [address] [place] [address] Notes/Report: Triglycerides 129 <150 mg/dL Desirable Triglyceride: [...] (Free>4and<10) Reviewed date:02/19/2025 12:45:04 PM Interpretation: Performing Lab:[facility], [address] [place] [address] Notes/Report: PSA,Total (Free>4and<10) < 0.10 0.00-4.00 ng/mL [...] between 4.0 and 10.0 ng/mL. PSA methodology: Robret Alinity i Chemiluminescent Microparticle Immunoassay (CMIA) UA ClnCatch+Micro w/rflx Cul t Reviewed date:02/21/2025 05:39:18 PM Interpretation: Performing Lab:[facility], [address] [place] [address] Notes/Report: Urine, Clean Catch Color Urine Dark Yellow Appearance Urine Clear PH 6.5 5.0-9.0 Glucose Urine UA Negative Negative mg/dL Urine Blood Negative Negative Specific [place] - Urine 1.025 1.005-1.025 Urine Protein 30 (1+) Neg-Trace mg/dL Urine Ketones Trace Negative mg/dL Nitrite Urine Negative Negative Leukocyte Esterase Urine Negative Negative RBC Urine 0-2 0-2 /HPF WBC Urine 0-5 0-5 /HPF Squamous Epithelial Cell Urine 0-2 0-2 /HPF Bacteria Urine None Seen None Seen Hyaline Casts Urine 0-2 0-2 /LPF INR WHOLE BLOOD POC Reviewed date:06/25/2024 11:32:23 AM Interpretation: Performing Lab:[facility], [address] [place] [address] Notes/Report: PT, INR - [facility] 3.2 0.9-1.1 METER #: [id number] INTERNATIONAL NORMALIZED RATIO (INR) REFERENCE RANGES Reference [...] OC Reviewed date:06/25/2024 12:15:50 PM Interpretation: Performing Lab:[facility], [address] [place] [address] Notes/Report: Prothrombin Time Whole Bld POC 38.6 11.1-13.5 sec INR WHOLE BLOOD POC Reviewed date:07/09/2024 11:05:08 AM Interpretation: Performing Lab:[facility], [address] [place] [address] Notes/Report: PT, INR - [facility]ag [facility] 2.3 0.9-1.1 METER #: [id number] INTERNATIONAL NORMALIZED RATIO (INR) REFERENCE RANGES Reference [...] OC Reviewed date:07/09/2024 12:21:37 PM Interpretation: Performing Lab:[facility], [address] [place] [address] Notes/Report: Prothrombin Time Whole Bld POC 27.5 11.1-13.5 sec INR WHOLE BLOOD POC Reviewed date:07/22/2024 02:12:43 PM Interpretation: Performing Lab:[facility], [address] [place] [address] Notes/Report: PT, INR - [facility]ag [facility] 1.8 0.9-1.1 METER #: [id number] INTERNATIONAL NORMALIZED RATIO (INR) REFERENCE RANGES Reference [...] OC Reviewed date:07/22/2024 02:18:21 PM Interpretation: Performing Lab:[facility], [address] [place] [address] Notes/Report: Prothrombin Time Whole Bld POC 21.8 11.1-13.5 sec INR WHOLE BLOOD POC Reviewed date:08/04/2024 12:06:47 PM Interpretation: Performing Lab:[facility], [address] [place] [address] Notes/Report: PT, INR - Anti [facility]ag [facility] 2.2 0.9-1.1 METER #: [id number] INTERNATIONAL NORMALIZED RATIO (INR) REFERENCE RANGES Reference [...] OC Reviewed date:08/04/2024 12:04:48 PM Interpretation: Performing Lab:[facility], [address] [place] [address] Notes/Report: Prothrombin Time Whole Bld POC 25.9 11.1-13.5 sec Kari Wallace Reviewed date:08/20/2024 12:43:27 PM Interpretation: Performing Lab:[facility], [address] [place] [address] Notes/Report: Kari Wallace See Note Specimen held untested for 24 hours; Call to request Chemistry testing. INR WHOLE BLOOD POC Reviewed date:08/25/2024 07:57:52 PM Interpretation: Performing Lab:[facility], [address] [place] [address] Notes/Report: PT, INR - Anti Coag Clinic 2.1 0.9-1.1 METER #: [id number] INTERNATIONAL NORMALIZED RATIO (INR) REFERENCE RANGES Reference [...] OC Reviewed date:08/25/2024 07:57:59 PM Interpretation: Performing Lab:[facility], [address] [place] [phone] Notes/Report: Prothrombin Time Whole Bld POC 25.6 11.1-13.5 sec INR WHOLE BLOOD POC Reviewed date:09/15/2024 09:59:14 AM Interpretation: Performing Lab:[facility], [address] [place] [address] Notes/Report: PT, INR - Anti Coag Clinic 3.0 0.9-1.1 METER #: [id number] INTERNATIONAL NORMALIZED RATIO (INR) REFERENCE RANGES Reference [...] OC Reviewed date:09/15/2024 12:33:10 PM Interpretation: Performing Lab:[facility], [address] [place] [phone] Notes/Report: Prothrombin Time Whole Bld POC 35.5 11.1-13.5 sec INR WHOLE BLOOD POC Reviewed date:10/06/2024 04:22:44 PM Interpretation: Performing Lab:[facility], [address] [place] [address] Notes/Report: PT, INR - Anti Coag Clinic 2.0 0.9-1.1 METER #: [id number] INTERNATIONAL NORMALIZED RATIO (INR) REFERENCE RANGES Reference [...] OC Reviewed date:10/06/2024 04:22:36 PM Interpretation: Performing Lab:[facility], [address] [place] [phone] Notes/Report: Prothrombin Time Whole Bld POC 23.5 11.1-13.5 sec Prostate Specific Antigen Reviewed date:10/09/2024 11:16:46 AM Interpretation: Performing Lab:[facility], [address] [place] [phone] Notes/Report: Prostate Specific Antigen < 0.10 <0.05-4.0 ng/mL PSA methodology: Robert Alinity i Chemiluminescent Microparticle Immunoassay (CMIA) INR WHOLE BLOOD POC Reviewed date:10/27/2024 11:14:11 AM Interpretation: Performing Lab:[facility], [address] [place] [address] Notes/Report: PT, INR - Anti Coag Clinic 2.0 0.9-1.1 METER #: [id number] INTERNATIONAL NORMALIZED RATIO (INR) REFERENCE RANGES Reference [...] OC Reviewed date:10/27/2024 11:14:04 AM Interpretation: Performing Lab:[facility], [address] [place] [address] Notes/Report: Prothrombin Time Whole Bld POC 23.7 11.1-13.5 sec INR WHOLE BLOOD POC Reviewed date:11/10/2024 12:18:48 PM Interpretation: Performing Lab:[facility], [address] [place] [address] Notes/Report: PT, INR - Anti Coag Clinic 1.8 0.9-1.1 METER #: [id number] INTERNATIONAL NORMALIZED RATIO (INR) REFERENCE RANGES Reference [...] OC Reviewed date:11/10/2024 12:18:37 PM Interpretation: Performing Lab:[facility], [address] [place] [address] Notes/Report: Prothrombin Time Whole Bld POC 21.5 11.1-13.5 sec INR WHOLE BLOOD POC Reviewed date:11/24/2024 12:04:29 PM Interpretation: Performing Lab:[facility], [address] [place] [address] Notes/Report: PT, INR - Anti Coag Clinic 2.4 0.9-1.1 METER #: [id number] INTERNATIONAL NORMALIZED RATIO (INR) REFERENCE RANGES Reference [...] OC Reviewed date:11/24/2024 12:04:21 PM Interpretation: Performing Lab:[facility], [address] [place] [phone] Notes/Report: Prothrombin Time Whole Bld POC 28.2 11.1-13.5 sec INR WHOLE BLOOD POC Reviewed date:12/17/2024 12:38:14 PM Interpretation: Performing Lab:[facility], [address] [place] [address] Notes/Report: PT, INR - Anti Coag Clinic 2.0 0.9-1.1 METER #: [id number] INTERNATIONAL NORMALIZED RATIO (INR) REFERENCE RANGES Reference [...] OC Reviewed date:12/17/2024 12:51:29 PM Interpretation: Performing Lab:[facility], [address] [place] [address] Notes/Report: Prothrombin Time Whole Bld POC 23.9 11.1-13.5 sec INR WHOLE BLOOD POC Reviewed date:01/07/2025 10:59:51 AM Interpretation: Performing Lab:[facility], [address] [place] [address] Notes/Report: PT, INR - Anti Coag Clinic 2.2 0.9-1.1 METER #: [id number] INTERNATIONAL NORMALIZED RATIO (INR) REFERENCE RANGES Reference [...] OC Reviewed date:01/07/2025 10:59:22 AM Interpretation: Performing Lab:[facility], [address] [place] [address] Notes/Report: Prothrombin Time Whole Bld POC 26.4 11.1-13.5 sec INR WHOLE BLOOD POC Reviewed date:02/04/2025 02:25:43 PM Interpretation: Performing Lab:[facility], [address] [place] [address] Notes/Report: PT, INR - Anti Coag Clinic 3.3 0.9-1.1 METER #: [id number] INTERNATIONAL NORMALIZED RATIO (INR) REFERENCE RANGES Reference [...] OC Reviewed date:02/04/2025 11:35:29 AM Interpretation: Performing Lab:[facility], [address] [place] [address] Notes/Report: Prothrombin Time Whole Bld POC 39.1 11.1-13.5 sec INR WHOLE BLOOD POC Reviewed date:03/04/2025 10:01:13 AM Interpretation: Performing Lab:[facility], [address] [place] [address] Notes/Report: PT, INR - Anti Coag Clinic 2.6 0.9-1.1 METER #: [id number] INTERNATIONAL NORMALIZED RATIO (INR) REFERENCE RANGES Reference [...] OC Reviewed date:03/04/2025 10:01:06 AM Interpretation: Performing Lab:[facility], [address] [place] [address] Notes/Report: Prothrombin Time Whole Bld POC 31.0 11.1-13.5 sec Complete Blood Count Auto Di ff Reviewed date:03/21/2025 07:34:37 PM Interpretation: Performing Lab:[facility], [address] [place] [address] Notes/Report: White Blood Count 7.1 4.8-10.8 X10*3/uL [...] INR Reviewed date:03/21/2025 07:30:57 PM Interpretation: Performing Lab:[address] [address] Notes/Report: Prothrombin Time 30.9 10.9-12.4 SEC INTERNATIONAL [...] Microscopic Reviewed date:03/21/2025 07:33:45 PM Interpretation: Performing Lab:[address] [address] Notes/Report: Color Urine Yellow Appearance Urine Clear PH 6.5 5.0-9.0 Glucose Urine UA Negative Negative mg/dL Urine Blood Negative Negative Specific [place] - Urine >= 1.030 1.005-1.025 Urine Protein 100 (2+) Neg-Trace mg/dL Urine Ketones 15 Negative mg/dL Nitrite Urine Negative Negative Leukocyte Esterase Urine Negative Negative RBC Urine 0-2 0-2 /HPF WBC Urine 0-5 0-5 /HPF Squamous Epithelial Cell Urine 3-5 0-2 /HPF Bacteria Urine None Seen None Seen Hyaline Casts Urine 11-20 0-2 /LPF Comprehensive Met. Panel Reviewed date:03/21/2025 07:33:21 PM Interpretation: Performing Lab:[facility], [address] [place] [address] Notes/Report: Sodium 143 135-145 mmol/L Potassium 3.8 [...] Acid Reviewed date:03/21/2025 07:30:17 PM Interpretation: Performing Lab:[facility], [address] [place] [address] Notes/Report: Lactic Acid 0.9 0.5-2.0 mmol/L Magnesium Reviewed date:03/21/2025 07:31:06 PM Interpretation: Performing Lab:[facility], [address] [place] [address] Notes/Report: Magnesium 1.9 1.6-2.6 mg/dL Troponin-I High Sensitivity Reviewed date:03/21/2025 07:30:47 PM Interpretation: Performing Lab:[facility], [address] [place] [address] Notes/Report: Troponin-I High Sensitivity 29.0 <3.5-35.0 ng/L The Robert high sensitivity Troponin-I results should be used in conjunction with other diagnostic information such as ECG, clinical observations and information, and patient symptoms to aid in the diagnosis of SC. B Type Natriuretic Peptide Reviewed date:03/21/2025 07:31:15 PM Interpretation: Performing Lab:[facility], [address] [place] [address] Notes/Report: B Type Natriuretic Peptide 214 <100 pg/mL Gram stain Reviewed date:03/23/2025 10:18:58 AM Interpretation: Performing Lab:[facility], [address] [place] [address] Notes/Report: Gram stain Gram stain results: Gram stain No polys Gram stain 2+ epithelial cells Gram stain 3+ Gram-positive cocci SARS-CoV2/FLU/RSV Reviewed date:03/21/2025 07:30:40 PM Interpretation: Performing Lab:[facility], [address] [place] [address] Notes/Report: Influenza A PCR NEGATIVE Negative Influenza [...] by authorized laboratories. Testing performed on the [employer] GeneXpert utilizing real-time RT-PCR. All SARS CoV2 and positive influenza A/B results are reported to [facility]. Blood Culture (First) Reviewed date:03/26/2025 04:21:01 PM Interpretation: Performing Lab:[facility], [address] [place] [address] Notes/Report: Blood Culture (First) No growth after 5 days. Blood Culture (Second) Reviewed date:03/26/2025 04:21:09 PM Interpretation: Performing Lab:[facility], [address] [place] [address] Notes/Report: Blood Culture (Second) No growth after 5 days. Venous Blood Gases - POC Reviewed date:03/21/2025 07:30:11 PM Interpretation: Performing Lab:[facility], [address] [place] [address] Notes/Report: VBG pH 7.54 7.32-7.43 METER #: [id number] additional_comment: Cb samantha VBG pCO2 56 METER #: [id number] additional_comment: Cb samantha VBG pO2 56 METER #: [id number] additional_comment: Sushant singh VBG Base Excess 22.3 METER #: [id number] additional_comment: Sushant singh VBG HCO3 48 22-26 mmol/L METER #: [id number] additional_comment: Sushant singh VBG O2 % Saturation 88.0 METER #: [id number] additional_comment: Sushant singh Routine Culture Reviewed date:03/23/2025 10:20:42 AM Interpretation: Performing Lab:[facility], [address] [place] [address] Notes/Report: Routine Culture Report - external Routine Culture 4+ Mixed skin ricci CT soft tissue neck w con Reviewed date:03/21/2025 07:30:02 PM Interpretation: Performing Lab: Notes/Report: [address] [address] [address] Scan Report Signed Patient: Kalyan Nguyen MR#: [id number] 2742 : 1940 Acct:[id number] Age/Sex: 84 / M ADM Date: 03/20/25 Loc: [place] [address]: Zoraida Donovan MD Ordering Physician: Nilsa Card Date of Service: 03/20/25 Procedure(s): CT soft tissue neck w IV con Accession Number(s): [id number] cc: iNlsa Card; Jake Pepper MD Report Number: [id number]: Total DLP = 599.99 mGy-cm CLINICAL HISTORY: [...] in OV> 03/20/252104 DD/ 03 TD/TT: 03/20/252103 Storeroom Supervisor: [place] [address] CT Scan Report Signed Patient: Miguel Nguyen MR#: [id number] 2742 : 1940 Acct:[id number] Age/Sex: 84 / M ADM Date: 03/20/25 Loc: [place] [address]: Zoraida Donovan MD Ordering Physician: Nilsa Card Date of Service: 03/20/25 Procedure(s): CT sof t tissue neck w IV con Accession Number(s): [id number] cc: Nilsa CardSTALIN; Jake Pepper MD Report Number: [id number]: Total DLP = 599.99 mGy-cm CLINICAL HISTORY: [...] in OV> 03/20/252104 DD/ 03 TD/TT: 03/20/252103 Storeroom Supervisor: CT head/brain wo con Reviewed date:03/21/2025 07:29:22 PM Interpretation: Performing Lab: Notes/Report: [address] [address] [address] Scan Report Signed Patient: Kalyan Nguyen MR#: [id number] 2742 : 1940 Acct:[id number] Age/Sex: 84 / M ADM Date: 03/20/25 Loc: [facility]- Attending Dr: Zoraida Donovan MD Ordering Physician: Nilsa Card Date of Service: 03/20/25 Procedure(s): CT head/brain wo IV con Accession Number(s): [id number] cc: Nilsa Card; Jake Pepper MD Report Number: [id number]: Total DLP = 914.64 mGy-cm CLINICAL HISTORY: [...] in OV> 03/20/252105 DD/ 04 TD/TT: 03/20/252104 Storeroom Supervisor: [place] [address] CT Scan Report Signed Patient: Miguel Nguyen MR#: [id number] 2742 : 1940 Acct:[id number] Age/Sex: 84 / M ADM Date: 03/20/25 Loc: [place] [address]: Zoraida Donovan MD Ordering Physician: Nilsa Card Date of Service: 03/20/25 Procedure(s): CT head/brain wo IV con Accession Number(s): [id number] cc: Nilsa Card; Jake Pepper MD Report Number: [id number]: Total DLP = 914.64 mGy-cm CLINICAL HISTORY: [...] in OV> 03/20/252105 DD/ 04 TD/TT: 03/20/252104 Storeroom Supervisor: XR chest 2V Reviewed date:03/21/2025 07:32:02 PM Interpretation: Performing Lab: Notes/Report: [address] [address] XRay Report Signed Patient: Kalyan Nguyen MR#: [id number] 2742 : 1940 Acct:[id number] Age/Sex: 84 / M ADM Date: 03/20/25 Loc: [facility] Attending Dr: Ordering Physician: Lisette Graves NP Date of Service: 03/20/25 Procedure(s): XR chest 2V Accession Number(s): [id number] cc: Jake Pepper MD; Lisette Graves NP [...] in OV> 03/20/251727 DD/ 26 TD/TT: 03/20/251726 Storeroom Supervisor: [address] [address] XRay Report Signed Patient: Miguel Nguyen MR#: [id number] 2742 : 1940 Acct:[id number] Age/Sex: 84 / M ADM Date: 03/20/25 Loc: [facility] Attending Dr: Ordering Physician: Lisette Graves NP Date of Service: 03/20/25 Procedure(s): XR rhina st 2V Accession Number(s): [id number] cc: Jake Pepper MD; Lisette Graves NP [...] in OV> 03/20/251727 DD/ 26 TD/TT: 03/20/251726 Storeroom Supervisor: Troponin-I High Sensitivity Reviewed date:03/21/2025 07:31:34 PM Interpretation: Performing Lab:[facility], [address] [place] [address] Notes/Report: Troponin-I High Sensitivity 24.4 <3.5-35.0 ng/L The Robert high sensitivity Troponin-I results should be used in conjunction with other diagnostic information such as ECG, clinical observations and information, and patient symptoms to aid in the diagnosis of SC. Complete Blood Count Auto Di ff Reviewed date:03/21/2025 07:34:16 PM Interpretation: Performing Lab:[facility], [address] [place] [address] Notes/Report: White Blood Count 6.6 4.8-10.8 X10*3/uL [...] INR Reviewed date:03/21/2025 07:32:30 PM Interpretation: Performing Lab:[address] [address] Notes/Report: Prothrombin Time 41.4 10.9-12.4 SEC INTERNATIONAL [...] Panel Reviewed date:03/21/2025 07:32:58 PM Interpretation: Performing Lab:[address] [address] Notes/Report: Sodium 142 135-145 mmol/L Potassium 3.4 [...] T4 Reviewed date:03/21/2025 07:31:25 PM Interpretation: Performing Lab:[facility], [address] [place] [address] Notes/Report: TSH reflex Free T4 1.34 0.32-4.0 uIU/mL Respiratory Panel Reviewed date:03/21/2025 07:28:57 PM Interpretation: Performing Lab:[facility], [address] [place] [address] Notes/Report: Adenovirus PCR Not Detected Not Detect. [...] testing should be considered. Results reported to [facility]. This test has been authorized [...] is performed by Multiplexed PCR, utilizing the [employer] Array. Prothrombin Time INR Reviewed date:03/22/2025 11:40:38 AM Interpretation: Performing Lab:[facility], [address] [place] [address] Notes/Report: Prothrombin Time 55.7 10.9-12.4 SEC INTERNATIONAL [...] Panel Reviewed date:03/22/2025 12:35:51 PM Interpretation: Performing Lab:[address] [address] Notes/Report: Sodium 138 135-145 mmol/L Potassium 4.1 [...] Random Reviewed date:03/22/2025 04:33:37 PM Interpretation: Performing Lab:[address] [address] Notes/Report: Vancomycin Random 13.0 15-20 mcg/mL Prothrombin Time INR Reviewed date:03/23/2025 10:14:22 AM Interpretation: Performing Lab:[address] [address] Notes/Report: Prothrombin Time 49.6 10.9-12.4 SEC INTERNATIONAL [...] Creatinine Reviewed date:03/23/2025 10:14:33 AM Interpretation: Performing Lab:[address] [address] Notes/Report: Creatinine 0.99 0.5-1.4 mg/dL Creatinine Clr [...] POC Reviewed date:04/01/2025 02:15:11 PM Interpretation: Performing Lab:[address] [address] Notes/Report: PT, INR - Anti Coag Clinic 5.4 0.9-1.1 METER #: [id number] Asymptomatic Cleaned Meter Doctor Notified INTERNATIONAL NORMALIZED [...] OC Reviewed date:04/01/2025 02:14:25 PM Interpretation: Performing Lab:[address] [address] Notes/Report: Prothrombin Time Whole Bld POC 65.0 11.1-13.5 sec INR WHOLE BLOOD POC Reviewed date:04/05/2025 01:00:12 PM Interpretation: Performing Lab:[address] [place] [address] Notes/Report: PT, INR - Anti Coag Clinic 4.7 0.9-1.1 METER #: [id number] INTERNATIONAL NORMALIZED RATIO (INR) REFERENCE RANGES Reference [...] OC Reviewed date:04/05/2025 01:00:04 PM Interpretation: Performing Lab:[facility], [address] [place] [address] Notes/Report: Prothrombin Time Whole Bld POC 55.9 11.1-13.5 sec INR WHOLE BLOOD POC Reviewed date:04/12/2025 12:38:27 PM Interpretation: Performing Lab:[facility], [address] [place] [address] Notes/Report: PT, INR - Anti Coag Clinic 4.1 0.9-1.1 METER #: [id number] INTERNATIONAL NORMALIZED RATIO (INR) REFERENCE RANGES Reference [...] OC Reviewed date:04/12/2025 12:38:37 PM Interpretation: Performing Lab:[facility], [address] [place] [address] Notes/Report: Prothrombin Time Whole Bld POC 49.7 11.1-13.5 sec INR WHOLE BLOOD POC Reviewed date:04/15/2025 04:00:41 PM Interpretation: Performing Lab:[address] [address] Notes/Report: PT, INR - Anti Coag Clinic 4.2 0.9-1.1 METER #: [id number] INTERNATIONAL NORMALIZED RATIO (INR) REFERENCE RANGES Reference [...] OC Reviewed date:04/15/2025 04:00:48 PM Interpretation: Performing Lab:[facility], [address] [place] [address] Notes/Report: Prothrombin Time Whole Bld POC 50.7 11.1-13.5 sec INR WHOLE BLOOD POC Reviewed date:04/19/2025 01:36:50 PM Interpretation: Performing Lab:[facility], [address] [place] [phone] Notes/Report: PT, INR - [facility] 2.7 0.9-1.1 METER #: [id number] INTERNATIONAL NORMALIZED RATIO (INR) REFERENCE RANGES Reference [...] OC Reviewed date:04/19/2025 01:36:41 PM Interpretation: Performing Lab:[facility], [address] [place] [phone] Notes/Report: Prothrombin Time Whole Bld POC 31.9 11.1-13.5 sec INR WHOLE BLOOD POC Reviewed date:04/27/2025 12:19:28 PM Interpretation: Performing Lab:[facility], [address] [place] [phone] Notes/Report: PT, INR - [facility] 2.4 0.9-1.1 METER #: [id number] INTERNATIONAL NORMALIZED RATIO (INR) REFERENCE RANGES Reference [...] OC Reviewed date:04/27/2025 12:19:14 PM Interpretation: Performing Lab:[facility], [address] [place] [phone] Notes/Report: Prothrombin Time Whole Bld POC 29.1 11.1-13.5 sec INR WHOLE BLOOD POC Reviewed date:05/11/2025 02:35:09 PM Interpretation: Performing Lab:[facility], [address] [place] [phone] Notes/Report: PT, INR - [facility] 1.4 0.9-1.1 METER #: [id number] Asymptomatic Doctor Notified INTERNATIONAL NORMALIZED RATIO (INR) [...] OC Reviewed date:05/11/2025 02:31:58 PM Interpretation: Performing Lab:[facility], [address] [place] [phone] Notes/Report: Prothrombin Time Whole Bld POC 16.7 11.1-13.5 sec INR WHOLE BLOOD POC Reviewed date:05/14/2025 04:20:53 PM Interpretation: Performing Lab:[facility], [address] [place] [phone] Notes/Report: PT, INR - [facility] 1.6 0.9-1.1 METER #: [id number] INTERNATIONAL NORMALIZED RATIO (INR) REFERENCE RANGES Reference [...] OC Reviewed date:05/14/2025 04:28:14 PM Interpretation: Performing Lab:[facility], [address] [place] [phone] Notes/Report: Prothrombin Time Whole Bld POC 19.6 11.1-13.5 sec INR WHOLE BLOOD POC Reviewed date:05/20/2025 12:36:55 PM Interpretation: Performing Lab:[facility], [address] [place] [phone] Notes/Report: PT, INR - [facility] 1.6 0.9-1.1 METER #: [id number] INTERNATIONAL NORMALIZED RATIO (INR) REFERENCE RANGES Reference [...] OC Reviewed date:05/20/2025 12:36:42 PM Interpretation: Performing Lab:[facility], [address] [place] [phone] Notes/Report: Prothrombin Time Whole Bld POC 19.8 11.1-13.5 sec INR WHOLE BLOOD POC Reviewed date:05/27/2025 12:31:20 PM Interpretation: Performing Lab:[address] [phone] Notes/Report: PT, INR - [facility] 1.8 0.9-1.1 METER #: [id number] INTERNATIONAL NORMALIZED RATIO (INR) REFERENCE RANGES Reference [...] OC Reviewed date:05/27/2025 12:31:13 PM Interpretation: Performing Lab:[facility], [address] [place] [phone] Notes/Report: Prothrombin Time Whole Bld POC 21.4 11.1-13.5 sec Reason For Referral Reason please verito nguyen for for nursing home and any other services he made need Diagnosis 1 Atrial fibrillation, unspecified type (I48.91) Diagnosis 2 COPD without exacerb ation (J44.9) Diagnosis 3 Bilateral leg weakne ss (R29.898) Referral Organization Jake Pepper MD Referring Provider First Name Jake Referring Provider Last Name Evgeny Referring Provider Speciality Internal M edicine Referred Provider [facility] Referred Provider Specialty Unknown General Notes Minerva Duff 0 04/12/2025 11:55:29 AM > referral info faxed, Minerva Duff 04/12/2025 01:22:33 PM >this referral will not be used due to they do not take his insurance. Spoke with [facility], she will be working on [...] hrs for 30 days 01/26/2013 Not-Taking Nystatin 790511 UNIT/GM 1 application Externally Twice a day [...] Orally On ce a day Not-Taking Nystatin 162517 UNIT/GM 1 application Externally Twice a day for 10 days 03/19/2025 Active Zolpidem Tartrate 5 MG TAKE 1 TABLET BY MOUTH DAILY AT BEDTIME Orally Once a day for 30 days 03/09/2025 Active Doxycycline Monohydrate 100 MG 1 capsule Orally Once a day Not-Taking Nystatin-Triamcinolone 445210-4.1 UNIT/GM 1 application Externally Twice a day [...] Fluarix Quadrivalent Unknown 08/05/2018 Administered At work [facility] Influenza High Dose IM Intramuscular [...] Problem Status W/U Status Risk Notes Problem 06223458 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 Problem Insomnia (445398434) Insomnia (G47.00) Active confirmed Problem 5178558 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) Active confirmed Problem Cataract (486461238) Unspecified cataract (H26.9) Active confirmed Problem Conductive hearing loss, bilateral (053267531) Conductive hearing loss, 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) Active confirmed Problem 3657478 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) Active confirmed Problem 14849445 Essential hypert ension (I10) Active confirmed Problem 476693543 Prostate cancer (C61) Active confirme d Problem 7458009 Psoriasis (L40.9) Active confirmed Problem 662613961 Lung nodule (R91.1) Active confirmed Problem Low testosterone (189049583) Low testosterone (E29.1) Active confirmed Problem 5839425881930338 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 Problem 519929449 Lung nodules (R91.8) Active confirmed Problem 630312873 Cervical disc di sease (M50.90) Active confirmed Problem 819424902 Tension headache (G44.209) Active confirmed Problem 8492313 Former smoker (Z87.891) Active confirmed Problem Acute exacerbation of chronic obstructive airways disease (162260428) COPD exacerbation (J44.1) Active confirmed Problem Postherpetic neuralgia (5849476) Post herpetic neuralgia (B02.29) Active confirmed Problem 67027723 Dysthymia (F34.1) Active confirmed Problem Iron deficiency anemia (16970164) Iron deficiency anemia, unspecified iron deficiency anemia type (D50.9) Active confirmed Problem 17847117 Atrial fibrillat ion, unspecified type (I48.91) Active confirmed Problem 7799394 Urinary obstruct ion (N13.9) Active confirmed Problem Leukocytosis (715472572) Elevated WBC count (D72.829) Active confirmed Problem 25041424 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 confirmed Problem 700884768 Pure hypercholesterolemia (E78.00) Active confirmed Problem 153319434 BMI 30.0-30.9,ad ult (Z68.30) Active confirmed Problem 508907839 COPD with exacer bation (J44.1) Active confirmed Problem 653024612 Hypertensive cri sis (I16.9) Active confirmed Problem Gout (36706708) Acute gout, unspecified cause, unspecified site (M10.9) Active confirmed Problem 90476854 COPD without exacerbation (J44.9) Active confirmed Problem Gout (77998493) Acute gout of ri ght knee, unspecified cause (M10.9) Active confirmed Problem 301974899 Mixed conductive and sensorineural hearing loss of [...] Jake Pepper MD [address] [place] [address] [id number] 08/20/2024 Jake Pepper Pure hypercholestero lemia E78.00 Jake Pepper MD [address] [place] [address] [id number] 02/19/2025 Jake Pepper Blood tests for rout ine general physical examination Z00.00 ; Essential hypertension I10 ; Pure hypercholesterolemia E78.00 and Iron deficiency anemia, unspecified iron deficiency anemia type D50.9 Jake Pepper MD [address] [place] [address] [id number] 07/07/2024 Jake Pepper Tension headache G44 .209 Jake Pepper MD [address] [facility] [address] [place] [address] [id number] 08/27/2024 Jake Pepper Essential hypertensi on I10 ; Pure hypercholesterolemia E78.00 ; Atrial fibrillation, unspecified type I48.91 and COPD without exacerbation J44.9 Jake Pepper MD [address] [facility] [address] [place] [address] [id number] 01/22/2025 Jake Bombardier Panlobular emphysema J43.1 ; Atrial fibrillation, unspecified type I48.91 and Unspecified cataract H26.9 Jake Pepper MD [address] [place] [address] [id number] 02/26/2025 Jake Pepper Essential hypertensi on I10 ; Annual physical exam Z00.00 ; Panlobular emphysema J43.1 ; Pure hypercholesterolemia E78.00 ; Dysthymia F34.1 ; Iron deficiency anemia, unspecified iron deficiency anemia type D50.9 and Depression screening Z13.31 Jake Pepper MD [address] [place] [address] [id number] 03/18/2025 Jake Pepper Thrush B37.0 Jake Pepper MD [address] [place] [address] [id number] 03/29/2025 Jake Pepper Essential hypertensi on I10 ; Panlobular emphysema J43.1 ; Shingles B02.9 and Thrush B37.0 Jake Pepper MD [address] [place] [address] [id number] 04/05/2025 Jake Pepper Post herpetic neural dung B02.29 ; Skin tear of right forearm without complication, initial encounter S51.801A ; Essential hypertension I10 and Atrial fibrillation, unspecified type I48.91 Jake Pepper MD [address] [place] [address] [id number] 04/20/2025 Jake Pepper Post herpetic neural dung B02.29 ; Skin tear of right forearm without complication, initial encounter S51.801A and Atrial fibrillation, unspecified type I48.91 Jake Pepper MD [address] [place] [address] [id number] 12/21/2024 Jake Pepper MD [address] [place] [address] [id number] 02/19/2025 Jake Pepper MD [address] [place] [address] [id number] 03/19/2025 Jake Pepper MD [address] [place] [address] [id number] 03/26/2025 Jake Pepper MD [address] [place] [address] [id number] 04/01/2025 Jake Pepper MD [address] [place] [address] [id number] 04/13/2025 Jake Pepper MD [address] [place] [address] [id number] 05/07/2025 Jake Pepper MD [address] [place] [address] [id number] 05/11/2025 Jake Pepper MD [address] [place] [address] [id number] 06/07/2024 Jake Pepper Insomnia G47.00 Jake Pepper MD [address] [place] [address] [id number] 07/07/2024 Jake Pepper Insomnia G47.00 Jake Pepper MD [address] [place] [address] [id number] 08/06/2024 Jake Pepper Insomnia G47.00 Jake Pepper MD [address] [place] [address] [id number] 09/02/2024 Jake Pepper Insomnia G47.00 Jake Pepper MD [address] [place] [address] [id number] 10/05/2024 Jake Pepper Insomnia G47.00 Jake Pepper MD [address] [place] [address] [id number] 11/08/2024 Jake Pepper Insomnia G47.00 Jake Pepper MD [address] [place] [address] [id number] 12/07/2024 Jake Pepper Insomnia G47.00 Jake Pepper MD [address] [place] [address] [id number] 01/06/2025 Jake Pepper Insomnia G47.00 Jake Pepper MD [address] [place] [address] [id number] 02/05/2025 Jake Oliveiraer Insomnia G47.00 Jake Pepper MD [address] [place] [address] [id number] 02/10/2025 Jake Pepper MD [address] [place], [place] [id number] 02/12/2025 Jake Pepper MD [address] [place], [place] [id number] 03/08/2025 Jake Pepper Insomnia G47.00 Assessments Encounter [...] Details Provider Name:Jake zambranor, 08/19/2025 07:00:00 AM, [address] [place] [address], [address], [id number], Provider Name:Jake zambranor, 08/26/2025 10:00:00 AM, [address] [place] [address], [address], [id number], Provider Name:Jake Miller ier, 02/24/2026 07:15:00 AM, [address] [place] [address], [address], [id number], Provider Name:Jake Miller ier, 03/03/2026 09:30:00 AM, [address] [place] [address], [address], [id number], Insurance Providers Payer Name Payer Address Payer Phone Subscriber Number Group Number Insured Name Patient Relationship to Insured Coverage Start Date Coverage End Date [employer] [address] [place] [phone] [id number] Kalyan Nguyen Self - patient is the insured MEDICARE [employer] [address] [place] [id number] Kalyan Nguyen Self - patient is the insured Medical (General) History Medical History History ICD Code 03/2004 - colonoscopy (repea t 10 years); colonoscopy [address] Rajput Smoker unmotivated to quit F17.210 biculatimide and finasteraide for prosta te cancer Surgical History Surgery Date(Month/Year) Repair of Umbilical Hernia w/Mesh (Dr. Darrell guido) 04/2019
--- OUTSIDE RECORDS SUMMARY | 2025-06-03 12:10 | XMS_ITS | Patient Health Record ---
Author Organization [facility] Address [address] [place] [phone] Care Team Providers Care Equipment Oiler Name Role Phone Jake Pepper MD Primary Care Provider Luther Rajput Jr [facility] Allergies Allergen (clinical drug ingredient) Drug/Non [...] Problem Status W/U Status Risk Notes Problem 241067828 Colon cancer screening (V76.51) Active confirmed Problem 448340495 Aspirin long-term use (V58.66) Active confirmed Plan Of Treatment Future Test Test Name Order Date COLONOSCOPY 07/29/2014 Insurance Providers Payer Name Payer Address Payer Phone Subscriber Number Group Number Insured Name Patient Relationship to Insured Coverage Start Date Coverage End Date [facility] [address] [place] [phone] [id number] CORNELIA JUAREZ Self - patient is the insured Medicare of [place] [employer] [address] [place] [address] [id number] CORNELIA JUAREZ Self - patient is the insured Medical (General) History Medical History History ICD Code prostate problems hypertension elevated cholesterol Surgical History Surgery Date(Month/Year) back surgery knee surgery
[2025-06-03 13:56] LABS: Prostate Specific Antigen < 0.10 ng/mL (<0.05-4.0)
== END 2025-06-03 10:43 | disposition home or self-care (01) ==
LOC: HO.HMGCLDS 10:42
PROVIDERS: PCP Internal Medicine; Visit Provider Urology
DX: C61 Malignant neoplasm of prostate (principal); Z12.5 Encounter for screening for malignant neoplasm of prostate
CPT/HCPCS: 36415; 84153

== ENCOUNTER 2025-06-04 09:16 | Outpatient (AMB) | payer MEDICARE, SELFPAY ==
--- OUTSIDE RECORDS SUMMARY | 2025-04-05 06:30 | XMS_ITS ---
Author Organization Jake Pepper MD Address [address] [place], [place] [phone] Care Team Providers Care Contact Acid Plant Operator Name Role Phone Jake Pepper Primary [...] day for 30 days 04/05/2025 Active Nystatin-Triamcinolone 100165-0.1 UNIT/GM 1 application Externally Twice a day [...] Orally for 10 days 03/18/2025 Not-Taking Nystatin 710928 UNIT/GM 1 application Externally Twice a day for 10 days 03/19/2025 Active valACYclovir HCl 1 GM 1 tablet Orally On ce a day Active Ipratropium-Albuterol 0.5-2.5 (3) MG/3ML 3 ml as needed Inhalation every 6 hrs 10/30/2021 Active Vitamin B12 1000 MCG 1 tablet Orally Onc e a day for 30 day(s) Active Nystatin 443671 UNIT/GM 1 application Externally Twice a day [...] W/U Status Risk Notes Problem Postherpetic neuralgia (8832944) Post herpetic neuralgia (B02.29) Active confirmed Vital Signs Blood pressure systolic 104 mm Hg 04/05/20 25 Blood pressure diastolic 60 mm Hg 025 Height 65 in 04/05/2025 Weight 167 lbs 04/05/2025 BMI 27.79 kg/m2 04/05/2025 weight is down 2 pounds [facility] e 03-29-25 Encounters Encounter Location Date Provider Diagnosis Jake Pepper MD 10 [facility] [address] [place], [place] [id number] 04/05/2025 Jake Pepper Post herpetic neuralgia B02.29 [...] 07:00:00 AM, [address], [address], [place], [place], [phone], Provider Name:Jake Miller ier, 08/26/2025 10:00:00 AM, [address], [address], [place], [place], [phone], Provider Name:Jake Miller ier, 02/24/2026 07:15:00 AM, [address], [address], [place], [place], [phone], Provider Name:Jake Miller ier, 03/03/2026 09:30:00 AM, [address], [address], [place], [place], [id number], Progress Notes * Kalyan JUAREZ RDOB: [birth year] (84 yo M)Acc No.[id number]:04/05/2025 Progress Notes Patient: Kalyan KENNEDY Provider: Aly Pepper MD :1940 A ge:84 Y S ex:Male Date:04/05/2025 Address:[address] [place] [address] [place], [id number] Subjective: * Chief Complaints: * 1 WEEK [...] 1 tablet Orally Once a day Nystatin 697751 UNIT/GM Ointment 1 application Externally Twice a [...] AT BEDTIME Orally Once a day Nystatin 252081 UNIT/GM Cream 1 application Externally Twice a [...] tablet Orally Once a day Taking Nystatin 215157 UNIT/GM Ointment 1 application Externally Twice a [...] BEDTIME Orally Once a day Taking Nystatin 558302 UNIT/GM Cream 1 application Externally Twice a [...] 1 puff Inhalation Twice a day Nystatin-Triamcinolone 020354-3.1 UNIT/GM Cream 1 application Externally Twice a [...] puff Inhalation Twice a day Not-Taking/PRN Nystatin-Triamcinolone 708429-9.1 UNIT/GM Cream 1 application Externally Twice a [...] 0 04/05/2025 Generated for Mabel trotter/Ashish/eTransmitting on: 0 06/04/2025 10:04 AM EDT History and Physical Notes * [...]
--- OUTSIDE RECORDS SUMMARY | 2025-04-13 10:39 | XMS_ITS ---
Author Organization Jake Pepper MD Address [address] [place] [phone] Care Team Providers Care Typesetting Machine Tender Name Role Phone Jake Pepper Primary Care Provider [phone] Encounters Encounter Location Date Provider Diagnosis Jake Pepper MD [address] [facility] [address] [place], [place] [phone] 04/13/2025 Jake Pepper Plan Of Treatment Next Appt Details Provider Name:Jake schmidt, 08/19/2025 07:00:00 AM, [address] [place] [address], Suite [facility], [place], [place], [phone], Provider Name:Jake schmidt, 08/26/2025 10:00:00 AM, [address] [place] [address], [address], [place], [place], [phone], Provider Name:Jake Miller ier, 02/24/2026 07:15:00 AM, [address], [address], [place], [phone], Provider Name:Jake Miller ier, 03/03/2026 09:30:00 AM, [address], [address], [place], [phone], Progress Notes * Kalyan JUAREZ RDOB: [birth year] (84 yo M)Acc No.[id number]:04/13/2025 Patient: Carmen NELLSEANKalyan :1940 A ge:84 Y S ex:Male Address:[address] [place] [address] [place] [address] * true * Date: Generated for Mabel trotter/Ashish/Erikasmitting on: 0 06/04/2025 10:04 AM EDT
--- OUTSIDE RECORDS SUMMARY | 2025-04-20 06:00 | XMS_ITS ---
Author Organization Jake Pepper MD Address [address] [place], [place] [phone] Care Team Providers Care Licensing Officer Name Role Phone Jake Pepper Primary [...] CAPSULE BY MOUTH TWICE DAILY Active Nystatin 950014 UNIT/GM 1 application Externally Twice a day for 30 days 05/29/2022 Active Nystatin 754962 UNIT/GM 1 application Externally Twice a day [...] 14 DAYS Oral for 14 Not-Taking Nystatin-Triamcinolone 379852-9.1 UNIT/GM 1 application Externally Twice a day [...] Location Date Provider Diagnosis Jake Pepper MD [address] [place] [address] [place] [phone] 04/20/2025 Jake Pepper Post herpetic neuralgia B02.29 [...] Reason: Provider Name:Jake schmidt, 08/19/2025 07:00:00 AM, [address] [place] [address], [address] [place] [address], [phone], Provider Name:Jake schmidt, 08/26/2025 10:00:00 AM, [address] [place] [address], [address] [place] [address], [phone], Provider Name:Jake schmidt, 02/24/2026 07:15:00 AM, [address] [place] [address], [address], [phone], Provider Name:Jake Miller ier, 03/03/2026 09:30:00 AM, [address], [address], [place], [place], [phone], Progress Notes * Kalyan JUAREZ RDOB: [birth year] (84 yo M)Acc No.[id number]:04/20/2025 Progress Notes Patient: Kalyan KENNEDY Provider: Aly Pepper MD :1940 A ge:84 Y S ex:Male Date:04/20/2025 Address:[address] [place], [place] [address]Mitesh [place], [id number] Subjective: * Chief Complaints: * 2 WEEK [...] 1 tablet Orally Once a day Nystatin 910792 UNIT/GM Ointment 1 application Externally Twice a day Tamsulosin HCl 0.4 MG Capsule TAKE 1 CAPSULE BY MOUTH TWICE DAILY Atorvastatin Calcium 40 MG Tablet 1 tablet Orally Once a day Zolpidem Tartrate 5 MG Tablet TAKE 1 TABLET BY MOUTH DAILY AT BEDTIME Orally Once a day Nystatin 980743 UNIT/GM Cream 1 application Externally Twice a [...] tablet Orally Once a day Taking Nystatin 429349 UNIT/GM Ointment 1 application Externally Twice a day Taking Tamsulosin HCl 0.4 MG Capsule TAKE 1 CAPSULE BY MOUTH TWICE DAILY Taking Atorvastatin Calcium 40 MG Tablet 1 tablet Orally Once a day Taking Zolpidem Tartrate 5 MG Tablet TAKE 1 TABLET BY MOUTH DAILY AT BEDTIME Orally Once a day Taking Nystatin 851773 UNIT/GM Cream 1 application Externally Twice a [...] 1 puff Inhalation Twice a day Nystatin-Triamcinolone 046930-8.1 UNIT/GM Cream 1 application Externally Twice a [...] puff Inhalation Twice a day Not-Taking/PRN Nystatin-Triamcinolone 385237-5.1 UNIT/GM Cream 1 application Externally Twice a [...] 0 04/20/2025 Generated for Mabel trotter/Ashish/Franciscoitting on: 0 06/04/2025 10:05 AM EDT History and Physical Notes * [...]
--- OUTSIDE RECORDS SUMMARY | 2025-05-07 06:44 | XMS_ITS ---
Author Organization Jake Pepper MD Address [address] [place], [place] [phone] Care Team Providers Care Planner Intern Name Role Phone Jake Pepper Primary Care Provider REASON FOR VISIT RE GABAPENTIN Encounters Encounter Location Date Provider Diagnosis Jake Pepper MD [address] [facility] [address] [place], [place] [phone] 05/07/2025 Jake Pepper Plan Of Treatment Next Appt Details Provider Name:Jake schmidt, 08/19/2025 07:00:00 AM, [address] [place] [address], [address], [phone], Provider Name:Jake schmidt, 08/26/2025 10:00:00 AM, [address], [address], [place], [phone], Provider Name:Jake Miller kenyar, 02/24/2026 07:15:00 AM, [address] [facility], [address], [place], [place], [phone], Provider Name:Jake Miller kenyar, 03/03/2026 09:30:00 AM, [address] [facility], [address], [place], [place], [phone], Progress Notes * Kalyan JUAREZ RDOB: [birth year] (84 yo M)Acc No.[id number]:05/07/2025 Patient: Carmen VIRAMONTESKalyan :1940 A ge:84 Y S ex:Male Address:[address] [place] [phone] * true * Date: Generated for Mabel trotter/Ashish/Erikasmitting on: 0 06/04/2025 10:04 AM EDT
--- OUTSIDE RECORDS SUMMARY | 2025-05-11 06:57 | XMS_ITS ---
Author Organization Jake Pepper MD Address [address] [place], [place] [phone] Care Team Providers Care Body Shop Manager Name Role Phone Jake Pepper Primary Care Provider REASON FOR VISIT INR of 1.4 Encounters Encounter Location Date Provider Diagnosis Jake Pepper MD [address] [place], [place] [phone] 05/11/2025 Jake Pepper Plan Of Treatment Next Appt Details Provider Name:Jake schmidt, 08/19/2025 07:00:00 AM, [address] [facility], Suite [facility], [place], [place], [phone], Provider Name:Jake schmidt, 08/26/2025 10:00:00 AM, [address], [address], [place], [phone], Provider Name:Jake Miller roxana, 02/24/2026 07:15:00 AM, [address] [facility] [address], [address], [place], [phone], Provider Name:Jake Miller roxana, 03/03/2026 09:30:00 AM, [address] [facility], [address], [place], [phone], Progress Notes * Kalyan JUAREZ RDOB: [birth year] (84 yo M)Acc No.[id number]:05/11/2025 Patient: Carmen VIRAMONTESKalyan :1940 A ge:84 Y S ex:Male Address:[address] [place] [address] [place] [address] * true * Date: Generated for Mabel trotter/Ashish/eTmartinsmitting on: 0 06/04/2025 10:04 AM EDT
[2025-06-04 09:26] LABS: Prothrombin Time Whole Bld POC 25.7 sec (11.1-13.5); ~PT, ~INR - Anti Coag Clinic 2.1 (0.9-1.1)
--- NOTE | 2025-06-04 09:38 | MHC.OFFVISCO ---
Intake Intake Visit Reasons: Anticoagulation Allergies pneumococcal vaccine (PNEUMOCOCCAL VACCINE) Allergy (Intermediate, Verified 06/04/25 09:21) RASH amoxicillin (From Augmentin) Allergy (Unknown, Verified 06/04/25 09:21) Swelling clavulanic acid (From Augmentin) Allergy (Unknown, Verified 06/04/25 09:21) Swelling theophylline Adverse Reaction (Intermediate, Verified 06/04/25 09:21) Loss of Appetite Medication List - Last Reconciled 06/04/25 by Imani Mckeon RN albuterol sulfate 90 mcg/actuation 2 puffs PO Q2H PRN atorvastatin 40 mg PO DAILY carvedilol 6.25 mg PO BID cyanocobalamin (vitamin B-12) 1,000 mcg PO DAILY furosemide 60 mg (1.5 x 40 mg) PO DAILY gabapentin mg PO ipratropium-albuterol 0.5 mg-3 mg(2.5 mg base)/3 mL 3 mL inhalation TID multivitamin (One Daily Multivitamin tablet) 1 tab PO DAILY nystatin 1 appl topical BID tamsulosin 0.4 mg PO BID 90 days warfarin See Protocol 6mg X 5DAYS, 3MG X 2 DAYS orally, Take medication 1-2 tabs as directed per anticoagulation clinic based on your INR Nursing Note Pt to ACS in W/C and using portable O2 accompanied by . INR: 2.1 in therapeutic range of 2-3 Medications and supplements reviewed No changes in health, diet, medications, or supplements, Denies any signs and symptoms of bleeding or bruising or clotting. Bleeding, bruising, clotting discussed Nutritional guidance given to avoid greens today only and to continue ensure qod. Dose: 6mg X 5 days and 9mg X 2 days F/U INR: 1 week Patient and verbalizes understanding of instructions with read back given . Anti-Coag Initial Assessment Social Hx Patient Tobacco Use Status: Former Tobacco user alcohol intake: never Alcohol intake frequency: 0-2 drinks per day Cardiovascular Hx: HTN, NH (non stemi) and Arrhythmias (afib) Lung Disease HX: COPD Musculoskeletal Hx: Gout Blood Disorder Hx: Hyperlipidemia GI Hx: Hemorrhoids Hx: Kidney Disease (naren) and Prostate (prostate cancer) Cancer HX: Yes Psych. 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
--- OUTSIDE RECORDS SUMMARY | 2025-06-04 10:04 | XMS_ITS | Encounter Summary ---
Author Organization [facility] Address [address] [facility] [place] [address] Care Team Providers Care Order Processing Manager Name Role Phone Jake Pepper MD Primary Care Provider Darleen vailable Encounter Details Date Type Department Care Team Description 03/27/2018 Release of Information Medical Records [address] [place] [id number] Abstract, Provider Social History Tobacco Use Types [...] on filedocumented in this encounter Care Teams Order Processing Manager Relationship Specialty Start Date End Date Jake Pepper MD PCP - General Internal Medicine 02/24/18 documented as of this encounter
--- OUTSIDE RECORDS SUMMARY | 2025-06-04 10:04 | XMS_ITS | Patient Health Record ---
Author Organization Jake Pepper MD Address [address] [place], [place] [id number] Care Team Providers Care Olive Pitter Name Role Phone Jake Pepper Primary Care Provider [phone] Allergies Allergen (clinical drug ingredient) Drug/Non Drug Allergy documented on EMR Reaction Allergy Type Onset Date Status Lamisil rash Drug Allergy Active Vaccine product containing Streptococcus pneumoniae antigen (medicinal product) Pneumovax (uncoded) local reaction redness Allergy Active Results Component Value Reference Range Notes Liver Panel Reviewed date:08/20/2024 03:17:01 PM Interpretation: Performing Lab:[facility], [address] [place] [address] Notes/Report: Bilirubin Total 0.7 0.0-1.0 mg/dL Bilirubin Direct 0.3 0.0-0.5 mg/dL Aspartate Amino Transferase 42 5-37 U/L Alanine Aminotransferase 24 0-40 U/L Total Protein 7.3 6.5-8.0 g/dL Albumin Level 3.9 3.5-5.0 g/dL Alkaline Phosphatase 94 39-117 U/L Lipid Panel with Reflex Reviewed date:08/20/2024 03:16:31 PM Interpretation: Performing Lab:[facility], [address] [place] [address] Notes/Report: Triglycerides 135 <150 mg/dL Desirable Triglyceride: [...] ff Reviewed date:02/21/2025 05:38:19 PM Interpretation: Performing Lab:[facility], [address] [place] [address] Notes/Report: White Blood Count 10.0 4.8-10.8 X10*3/uL [...] NRBC Abs Auto 0.000 0.0-0.012 X10*3/uL Comprehensive [place]. Panel Fa st Reviewed date:02/21/2025 05:34:56 PM Interpretation: Performing Lab:[facility], [address] [place] [address] Notes/Report: Sodium 143 135-145 mmol/L Potassium 3.8 [...] PROFILE Reviewed date:02/19/2025 12:44:54 PM Interpretation: Performing Lab:[address] [address] Notes/Report: Iron 63 45-160 mcg/dL Total Iron Binding Capacity 271 228-428 mcg/dL Percent Iron Saturation 23 15-50 % Unsaturated Iron Binding 208 Lipid Panel Reviewed date:02/19/2025 12:44:14 PM Interpretation: Performing Lab:[facility], [address] [place] [address] Notes/Report: Triglycerides 129 <150 mg/dL Desirable Triglyceride: [...] (Free>4and<10) Reviewed date:02/19/2025 12:45:04 PM Interpretation: Performing Lab:[facility], [address] [place] [address] Notes/Report: PSA,Total (Free>4and<10) < 0.10 0.00-4.00 ng/mL [...] t Reviewed date:02/21/2025 05:39:18 PM Interpretation: Performing Lab:[facility], [address] [place] [address] Notes/Report: Urine, Clean Catch Color Urine Dark Yellow Appearance Urine Clear PH 6.5 5.0-9.0 Glucose Urine UA Negative Negative mg/dL Urine Blood Negative Negative Specific [place] - Urine 1.025 1.005-1.025 Urine Protein 30 (1+) Neg-Trace mg/dL Urine Ketones Trace Negative mg/dL Nitrite Urine Negative Negative Leukocyte Esterase Urine Negative Negative RBC Urine 0-2 0-2 /HPF WBC Urine 0-5 0-5 /HPF Squamous Epithelial Cell Urine 0-2 0-2 /HPF Bacteria Urine None Seen None Seen Hyaline Casts Urine 0-2 0-2 /LPF INR WHOLE BLOOD POC Reviewed date:06/25/2024 11:32:23 AM Interpretation: Performing Lab:[facility], [address] [place] [address] Notes/Report: PT, INR - [facility] 3.2 0.9-1.1 METER #: [id number] INTERNATIONAL NORMALIZED RATIO (INR) REFERENCE RANGES Reference [...] OC Reviewed date:06/25/2024 12:15:50 PM Interpretation: Performing Lab:[facility], [address] [place] [address] Notes/Report: Prothrombin Time Whole Bld POC 38.6 11.1-13.5 sec INR WHOLE BLOOD POC Reviewed date:07/09/2024 11:05:08 AM Interpretation: Performing Lab:[facility], [address] [place] [address] Notes/Report: PT, INR - [facility] 2.3 0.9-1.1 METER #: [id number] INTERNATIONAL NORMALIZED RATIO (INR) REFERENCE RANGES Reference [...] OC Reviewed date:07/09/2024 12:21:37 PM Interpretation: Performing Lab:[facility], [address] [place] [address] Notes/Report: Prothrombin Time Whole Bld POC 27.5 11.1-13.5 sec INR WHOLE BLOOD POC Reviewed date:07/22/2024 02:12:43 PM Interpretation: Performing Lab:[facility], [address] [place] [address] Notes/Report: PT, INR - [facility] 1.8 0.9-1.1 METER #: [id number] INTERNATIONAL NORMALIZED RATIO (INR) REFERENCE RANGES Reference [...] OC Reviewed date:07/22/2024 02:18:21 PM Interpretation: Performing Lab:[facility], [address] [place] [address] Notes/Report: Prothrombin Time Whole Bld POC 21.8 11.1-13.5 sec INR WHOLE BLOOD POC Reviewed date:08/04/2024 12:06:47 PM Interpretation: Performing Lab:[facility], [address] [place] [address] Notes/Report: PT, INR - [facility] 2.2 0.9-1.1 METER #: [id number] INTERNATIONAL NORMALIZED RATIO (INR) REFERENCE RANGES Reference [...] OC Reviewed date:08/04/2024 12:04:48 PM Interpretation: Performing Lab:[facility], [address] [place] [address] Notes/Report: Prothrombin Time Whole Bld POC 25.9 11.1-13.5 sec Kari Wallace Reviewed date:08/20/2024 12:43:27 PM Interpretation: Performing Lab:[facility], [address] [place] [address] Notes/Report: Kari Wallace See Note Specimen held untested for 24 hours; Call to request Chemistry testing. INR WHOLE BLOOD POC Reviewed date:08/25/2024 07:57:52 PM Interpretation: Performing Lab:[facility], [address] [place] [address] Notes/Report: PT, INR - [facility]ag [facility] 2.1 0.9-1.1 METER #: [id number] INTERNATIONAL NORMALIZED RATIO (INR) REFERENCE RANGES Reference [...] OC Reviewed date:08/25/2024 07:57:59 PM Interpretation: Performing Lab:[facility], [address] [place] [address] Notes/Report: Prothrombin Time Whole Bld POC 25.6 11.1-13.5 sec INR WHOLE BLOOD POC Reviewed date:09/15/2024 09:59:14 AM Interpretation: Performing Lab:[facility], [address] [place] [address] Notes/Report: PT, INR - Anti [facility]ag Clinic 3.0 0.9-1.1 METER #: [id number] INTERNATIONAL NORMALIZED RATIO (INR) REFERENCE RANGES Reference [...] OC Reviewed date:09/15/2024 12:33:10 PM Interpretation: Performing Lab:[facility], [address] [place] [address] Notes/Report: Prothrombin Time Whole Bld POC 35.5 11.1-13.5 sec INR WHOLE BLOOD POC Reviewed date:10/06/2024 04:22:44 PM Interpretation: Performing Lab:[facility], [address] [place] [address] Notes/Report: PT, INR - Anti [facility]ag [facility] 2.0 0.9-1.1 METER #: [id number] INTERNATIONAL NORMALIZED RATIO (INR) REFERENCE RANGES Reference [...] OC Reviewed date:10/06/2024 04:22:36 PM Interpretation: Performing Lab:[facility], [address] [place] [address] Notes/Report: Prothrombin Time Whole Bld POC 23.5 11.1-13.5 sec Prostate Specific Antigen Reviewed date:10/09/2024 11:16:46 AM Interpretation: Performing Lab:[facility], [address] [place] [address] Notes/Report: Prostate Specific Antigen < 0.10 <0.05-4.0 ng/mL PSA methodology: Robert Alinity i Chemiluminescent Microparticle Immunoassay (CMIA) INR WHOLE BLOOD POC Reviewed date:10/27/2024 11:14:11 AM Interpretation: Performing Lab:[facility], [address] [place] [address] Notes/Report: PT, INR - [facility]ag [facility] 2.0 0.9-1.1 METER #: [id number] INTERNATIONAL NORMALIZED RATIO (INR) REFERENCE RANGES Reference [...] OC Reviewed date:10/27/2024 11:14:04 AM Interpretation: Performing Lab:[facility], [address] [place] [phone] Notes/Report: Prothrombin Time Whole Bld POC 23.7 11.1-13.5 sec INR WHOLE BLOOD POC Reviewed date:11/10/2024 12:18:48 PM Interpretation: Performing Lab:[facility], [address] [place] [address] Notes/Report: PT, INR - [facility]ag [facility] 1.8 0.9-1.1 METER #: [id number] INTERNATIONAL NORMALIZED RATIO (INR) REFERENCE RANGES Reference [...] OC Reviewed date:11/10/2024 12:18:37 PM Interpretation: Performing Lab:[facility], [address] [place] [address] Notes/Report: Prothrombin Time Whole Bld POC 21.5 11.1-13.5 sec INR WHOLE BLOOD POC Reviewed date:11/24/2024 12:04:29 PM Interpretation: Performing Lab:[facility], [address] [place] [address] Notes/Report: PT, INR - [facility]ag [facility] 2.4 0.9-1.1 METER #: [id number] INTERNATIONAL NORMALIZED RATIO (INR) REFERENCE RANGES Reference [...] OC Reviewed date:11/24/2024 12:04:21 PM Interpretation: Performing Lab:[facility], [address] [place] [address] Notes/Report: Prothrombin Time Whole Bld POC 28.2 11.1-13.5 sec INR WHOLE BLOOD POC Reviewed date:12/17/2024 12:38:14 PM Interpretation: Performing Lab:[facility], [address] [place] [address] Notes/Report: PT, INR - Anti Coag [facility] 2.0 0.9-1.1 METER #: [id number] INTERNATIONAL NORMALIZED RATIO (INR) REFERENCE RANGES Reference [...] OC Reviewed date:12/17/2024 12:51:29 PM Interpretation: Performing Lab:[facility], [address] [place] [address] Notes/Report: Prothrombin Time Whole Bld POC 23.9 11.1-13.5 sec INR WHOLE BLOOD POC Reviewed date:01/07/2025 10:59:51 AM Interpretation: Performing Lab:[facility], [address] [place] [address] Notes/Report: PT, INR - Anti Coag Clinic 2.2 0.9-1.1 METER #: [id number] INTERNATIONAL NORMALIZED RATIO (INR) REFERENCE RANGES Reference [...] OC Reviewed date:01/07/2025 10:59:22 AM Interpretation: Performing Lab:[facility], [address] [place] [address] Notes/Report: Prothrombin Time Whole Bld POC 26.4 11.1-13.5 sec INR WHOLE BLOOD POC Reviewed date:02/04/2025 02:25:43 PM Interpretation: Performing Lab:[facility], [address] [place] [address] Notes/Report: PT, INR - Anti Coag Clinic 3.3 0.9-1.1 METER #: [id number] INTERNATIONAL NORMALIZED RATIO (INR) REFERENCE RANGES Reference [...] OC Reviewed date:02/04/2025 11:35:29 AM Interpretation: Performing Lab:[facility], [address] [place] [phone] Notes/Report: Prothrombin Time Whole Bld POC 39.1 11.1-13.5 sec INR WHOLE BLOOD POC Reviewed date:03/04/2025 10:01:13 AM Interpretation: Performing Lab:[facility], [address] [place] [address] Notes/Report: PT, INR - Anti Coag Clinic 2.6 0.9-1.1 METER #: [id number] INTERNATIONAL NORMALIZED RATIO (INR) REFERENCE RANGES Reference [...] OC Reviewed date:03/04/2025 10:01:06 AM Interpretation: Performing Lab:[facility], [address] [place] [address] Notes/Report: Prothrombin Time Whole Bld POC 31.0 11.1-13.5 sec Complete Blood Count Auto Di ff Reviewed date:03/21/2025 07:34:37 PM Interpretation: Performing Lab:[facility], [address] [place] [address] Notes/Report: White Blood Count 7.1 4.8-10.8 X10*3/uL [...] INR Reviewed date:03/21/2025 07:30:57 PM Interpretation: Performing Lab:[address] [address] Notes/Report: Prothrombin Time 30.9 10.9-12.4 SEC INTERNATIONAL [...] Microscopic Reviewed date:03/21/2025 07:33:45 PM Interpretation: Performing Lab:[address] [address] Notes/Report: Color Urine Yellow Appearance Urine Clear PH 6.5 5.0-9.0 Glucose Urine UA Negative Negative mg/dL Urine Blood Negative Negative Specific [place] - Urine >= 1.030 1.005-1.025 Urine Protein 100 (2+) Neg-Trace mg/dL Urine Ketones 15 Negative mg/dL Nitrite Urine Negative Negative Leukocyte Esterase Urine Negative Negative RBC Urine 0-2 0-2 /HPF WBC Urine 0-5 0-5 /HPF Squamous Epithelial Cell Urine 3-5 0-2 /HPF Bacteria Urine None Seen None Seen Hyaline Casts Urine 11-20 0-2 /LPF Comprehensive Met. Panel Reviewed date:03/21/2025 07:33:21 PM Interpretation: Performing Lab:[facility], [address] [place] [address] Notes/Report: Sodium 143 135-145 mmol/L Potassium 3.8 [...] Acid Reviewed date:03/21/2025 07:30:17 PM Interpretation: Performing Lab:[facility], [address] [place] [address] Notes/Report: Lactic Acid 0.9 0.5-2.0 mmol/L Magnesium Reviewed date:03/21/2025 07:31:06 PM Interpretation: Performing Lab:[facility], [address] [place] [address] Notes/Report: Magnesium 1.9 1.6-2.6 mg/dL Troponin-I High Sensitivity Reviewed date:03/21/2025 07:30:47 PM Interpretation: Performing Lab:[facility], [address] [place] [phone] Notes/Report: Troponin-I High Sensitivity 29.0 <3.5-35.0 ng/L The Robert high sensitivity Troponin-I results should be used in conjunction with other diagnostic information such as ECG, clinical observations and information, and patient symptoms to aid in the diagnosis of NV. B Type Natriuretic Peptide Reviewed date:03/21/2025 07:31:15 PM Interpretation: Performing Lab:[facility], [address] [place] [address] Notes/Report: B Type Natriuretic Peptide 214 <100 pg/mL Gram stain Reviewed date:03/23/2025 10:18:58 AM Interpretation: Performing Lab:[facility], [address] [place] [address] Notes/Report: Gram stain Gram stain results: Gram stain No polys Gram stain 2+ epithelial cells Gram stain 3+ Gram-positive cocci SARS-CoV2/FLU/RSV Reviewed date:03/21/2025 07:30:40 PM Interpretation: Performing Lab:[facility], [address] [place] [phone] Notes/Report: Influenza A PCR NEGATIVE Negative Influenza [...] by authorized laboratories. Testing performed on the [employer] GeneXpert utilizing real-time RT-PCR. All SARS CoV2 and positive influenza A/B results are reported to [facility]. Blood Culture (First) Reviewed date:03/26/2025 04:21:01 PM Interpretation: Performing Lab:[facility], [address] [place] [address] Notes/Report: Blood Culture (First) No growth after 5 days. Blood Culture (Second) Reviewed date:03/26/2025 04:21:09 PM Interpretation: Performing Lab:[facility], [address] [place] [address] Notes/Report: Blood Culture (Second) No growth after 5 days. Venous Blood Gases - POC Reviewed date:03/21/2025 07:30:11 PM Interpretation: Performing Lab:[facility], [address] [place] [address] Notes/Report: VBG pH 7.54 7.32-7.43 METER #: [id number] additional_comment: Cb samantha VBG pCO2 56 METER #: [id number] additional_comment: Cb samantha VBG pO2 56 METER #: [id number] additional_comment: Sushant singh VBG Base Excess 22.3 METER #: [id number] additional_comment: Sushant singh VBG HCO3 48 22-26 mmol/L METER #: [id number] additional_comment: Sushant singh VBG O2 % Saturation 88.0 METER #: [id number] additional_comment: Sushant singh Routine Culture Reviewed date:03/23/2025 10:20:42 AM Interpretation: Performing Lab:[facility], [address] [place] [phone] Notes/Report: Routine Culture Report - external Routine Culture 4+ Mixed skin ricci CT soft tissue neck w con Reviewed date:03/21/2025 07:30:02 PM Interpretation: Performing Lab: Notes/Report: [address] [address] [address] Scan Report Signed Patient: Kalyan Nguyen MR#: [id number] 2742 : 1940 Acct:[id number] Age/Sex: 84 / M ADM Date: 03/20/25 Loc: [place] [address]: Zoraida Donovan MD Ordering Physician: Nilsa Card Date of Service: 03/20/25 Procedure(s): CT soft tissue neck w IV con Accession Number(s): [id number] cc: Nilsa Card; Jake Pepper MD Report Number: [id number]: Total DLP = 599.99 mGy-cm CLINICAL HISTORY: [...] in OV> 03/20/252104 DD/ 03 TD/TT: 03/20/252103 Electronic Organ Technician: [place] [address] CT Scan Report Signed Patient: Miguel Nguyen MR#: [id number] 2742 : 1940 Acct:[id number] Age/Sex: 84 / M ADM Date: 03/20/25 Loc: [place] [address]: Zoraida Donovan MD Ordering Physician: Nilsa Card Date of Service: 03/20/25 Procedure(s): CT sof t tissue neck w IV con Accession Number(s): [id number] cc: Nilsa CardSTALIN; Jake Pepper MD Report Number: [id number]: Total DLP = 599.99 mGy-cm CLINICAL HISTORY: [...] in OV> 03/20/252104 DD/ 03 TD/TT: 03/20/252103 Electronic Organ Technician: CT head/brain wo con Reviewed date:03/21/2025 07:29:22 PM Interpretation: Performing Lab: Notes/Report: [address] [address] [address] Scan Report Signed Patient: Kalyan Nguyen MR#: [id number] 2742 : 1940 Acct:[id number] Age/Sex: 84 / M ADM Date: 03/20/25 Loc: [facility]- Attending Dr: Zoraida Donovan MD Ordering Physician: Nilsa Card Date of Service: 03/20/25 Procedure(s): CT head/brain wo IV con Accession Number(s): [id number] cc: Nilsa Card; Jake Pepper MD Report Number: [id number]: Total DLP = 914.64 mGy-cm CLINICAL HISTORY: [...] in OV> 03/20/252105 DD/ 04 TD/TT: 03/20/252104 Electronic Organ Technician: [place] [address] CT Scan Report Signed Patient: Miguel Nguyen MR#: [id number] 2742 : 1940 Acct:[id number] Age/Sex: 84 / M ADM Date: 03/20/25 Loc: [place] [address]: Zoraida Donovan MD Ordering Physician: Nilsa Card Date of Service: 03/20/25 Procedure(s): CT head/brain wo IV con Accession Number(s): [id number] cc: Nilsa Card; Jake Pepper MD Report Number: [id number]: Total DLP = 914.64 mGy-cm CLINICAL HISTORY: [...] in OV> 03/20/252105 DD/ 04 TD/TT: 03/20/252104 Electronic Organ Technician: XR chest 2V Reviewed date:03/21/2025 07:32:02 PM Interpretation: Performing Lab: Notes/Report: [address] [address] XRay Report Signed Patient: Kalyan Nguyen MR#: [id number] 2742 : 1940 Acct:[id number] Age/Sex: 84 / M ADM Date: 03/20/25 Loc: [facility] Attending Dr: Ordering Physician: Lisette Graves NP Date of Service: 03/20/25 Procedure(s): XR chest 2V Accession Number(s): [id number] cc: Jake Pepper MD; Lisette Graves NP [...] in OV> 03/20/251727 DD/ 26 TD/TT: 03/20/251726 Electronic Organ Technician: [address] [address] XRay Report Signed Patient: Miguel Nguyen MR#: [id number] 2742 : 1940 Acct:[id number] Age/Sex: 84 / M ADM Date: 03/20/25 Loc: [facility] Attending Dr: Ordering Physician: Lisette Graves NP Date of Service: 03/20/25 Procedure(s): XR rhina st 2V Accession Number(s): [id number] cc: Jake Pepper MD; Lisette Graves NP [...] in OV> 03/20/251727 DD/ 26 TD/TT: 03/20/251726 Electronic Organ Technician: Troponin-I High Sensitivity Reviewed date:03/21/2025 07:31:34 PM Interpretation: Performing Lab:[facility], [address] [place] [address] Notes/Report: Troponin-I High Sensitivity 24.4 <3.5-35.0 ng/L The Robert high sensitivity Troponin-I results should be used in conjunction with other diagnostic information such as ECG, clinical observations and information, and patient symptoms to aid in the diagnosis of NV. Complete Blood Count Auto Di ff Reviewed date:03/21/2025 07:34:16 PM Interpretation: Performing Lab:[facility], [address] [place] [address] Notes/Report: White Blood Count 6.6 4.8-10.8 X10*3/uL [...] INR Reviewed date:03/21/2025 07:32:30 PM Interpretation: Performing Lab:[address] [address] Notes/Report: Prothrombin Time 41.4 10.9-12.4 SEC INTERNATIONAL [...] Panel Reviewed date:03/21/2025 07:32:58 PM Interpretation: Performing Lab:[address] [address] Notes/Report: Sodium 142 135-145 mmol/L Potassium 3.4 [...] T4 Reviewed date:03/21/2025 07:31:25 PM Interpretation: Performing Lab:[facility], [address] [place] [address] Notes/Report: TSH reflex Free T4 1.34 0.32-4.0 uIU/mL Respiratory Panel Reviewed date:03/21/2025 07:28:57 PM Interpretation: Performing Lab:[facility], [address] [place] [address] Notes/Report: Adenovirus PCR Not Detected Not Detect. [...] should be considered. Results reported to [facility]. This test has been authorized by the [...] is performed by Multiplexed PCR, utilizing the Ultralife Array. Prothrombin Time INR Reviewed date:03/22/2025 11:40:38 AM Interpretation: Performing Lab:[facility], [address] [place] [address] Notes/Report: Prothrombin Time 55.7 10.9-12.4 SEC INTERNATIONAL [...] Panel Reviewed date:03/22/2025 12:35:51 PM Interpretation: Performing Lab:[address] [address] Notes/Report: Sodium 138 135-145 mmol/L Potassium 4.1 [...] Random Reviewed date:03/22/2025 04:33:37 PM Interpretation: Performing Lab:[address] [address] Notes/Report: Vancomycin Random 13.0 15-20 mcg/mL Prothrombin Time INR Reviewed date:03/23/2025 10:14:22 AM Interpretation: Performing Lab:[address] [address] Notes/Report: Prothrombin Time 49.6 10.9-12.4 SEC INTERNATIONAL [...] Creatinine Reviewed date:03/23/2025 10:14:33 AM Interpretation: Performing Lab:[address] [address] Notes/Report: Creatinine 0.99 0.5-1.4 mg/dL Creatinine Clr [...] POC Reviewed date:04/01/2025 02:15:11 PM Interpretation: Performing Lab:[address] [address] Notes/Report: PT, INR - Anti Coag Clinic 5.4 0.9-1.1 METER #: [id number] Asymptomatic Cleaned Meter Doctor Notified INTERNATIONAL NORMALIZED [...] OC Reviewed date:04/01/2025 02:14:25 PM Interpretation: Performing Lab:[address] [address] Notes/Report: Prothrombin Time Whole Bld POC 65.0 11.1-13.5 sec INR WHOLE BLOOD POC Reviewed date:04/05/2025 01:00:12 PM Interpretation: Performing Lab:[address] [place] [address] Notes/Report: PT, INR - Anti Coag Clinic 4.7 0.9-1.1 METER #: [id number] INTERNATIONAL NORMALIZED RATIO (INR) REFERENCE RANGES Reference [...] OC Reviewed date:04/05/2025 01:00:04 PM Interpretation: Performing Lab:[facility], [address] [place] [phone] Notes/Report: Prothrombin Time Whole Bld POC 55.9 11.1-13.5 sec INR WHOLE BLOOD POC Reviewed date:04/12/2025 12:38:27 PM Interpretation: Performing Lab:[facility], [address] [place] [address] Notes/Report: PT, INR - Anti Coag Clinic 4.1 0.9-1.1 METER #: [id number] INTERNATIONAL NORMALIZED RATIO (INR) REFERENCE RANGES Reference [...] OC Reviewed date:04/12/2025 12:38:37 PM Interpretation: Performing Lab:[facility], [address] [place] [phone] Notes/Report: Prothrombin Time Whole Bld POC 49.7 11.1-13.5 sec INR WHOLE BLOOD POC Reviewed date:04/15/2025 04:00:41 PM Interpretation: Performing Lab:[address] [address] Notes/Report: PT, INR - Anti Coag Clinic 4.2 0.9-1.1 METER #: [id number] INTERNATIONAL NORMALIZED RATIO (INR) REFERENCE RANGES Reference [...] OC Reviewed date:04/15/2025 04:00:48 PM Interpretation: Performing Lab:[facility], [address] [place] [address] Notes/Report: Prothrombin Time Whole Bld POC 50.7 11.1-13.5 sec INR WHOLE BLOOD POC Reviewed date:04/19/2025 01:36:50 PM Interpretation: Performing Lab:[facility], [address] [place] [address] Notes/Report: PT, INR - Anti Coag Clinic 2.7 0.9-1.1 METER #: [id number] INTERNATIONAL NORMALIZED RATIO (INR) REFERENCE RANGES Reference [...] OC Reviewed date:04/19/2025 01:36:41 PM Interpretation: Performing Lab:[facility], [address] [place] [phone] Notes/Report: Prothrombin Time Whole Bld POC 31.9 11.1-13.5 sec INR WHOLE BLOOD POC Reviewed date:04/27/2025 12:19:28 PM Interpretation: Performing Lab:[facility], [address] [place] [phone] Notes/Report: PT, INR - [facility] 2.4 0.9-1.1 METER #: [id number] INTERNATIONAL NORMALIZED RATIO (INR) REFERENCE RANGES Reference [...] OC Reviewed date:04/27/2025 12:19:14 PM Interpretation: Performing Lab:[facility], [address] [place] [phone] Notes/Report: Prothrombin Time Whole Bld POC 29.1 11.1-13.5 sec INR WHOLE BLOOD POC Reviewed date:05/11/2025 02:35:09 PM Interpretation: Performing Lab:[facility], [address] [place] [phone] Notes/Report: PT, INR - [facility] 1.4 0.9-1.1 METER #: [id number] Asymptomatic Doctor Notified INTERNATIONAL NORMALIZED RATIO (INR) [...] OC Reviewed date:05/11/2025 02:31:58 PM Interpretation: Performing Lab:[facility], [address] [place] [phone] Notes/Report: Prothrombin Time Whole Bld POC 16.7 11.1-13.5 sec INR WHOLE BLOOD POC Reviewed date:05/14/2025 04:20:53 PM Interpretation: Performing Lab:[facility], [address] [place] [phone] Notes/Report: PT, INR - [facility] 1.6 0.9-1.1 METER #: [id number] INTERNATIONAL NORMALIZED RATIO (INR) REFERENCE RANGES Reference [...] OC Reviewed date:05/14/2025 04:28:14 PM Interpretation: Performing Lab:[facility], [address] [place] [phone] Notes/Report: Prothrombin Time Whole Bld POC 19.6 11.1-13.5 sec INR WHOLE BLOOD POC Reviewed date:05/20/2025 12:36:55 PM Interpretation: Performing Lab:[facility], [address] [place] [phone] Notes/Report: PT, INR - [facility] 1.6 0.9-1.1 METER #: [id number] INTERNATIONAL NORMALIZED RATIO (INR) REFERENCE RANGES Reference [...] OC Reviewed date:05/20/2025 12:36:42 PM Interpretation: Performing Lab:[facility], [address] [place] [address] Notes/Report: Prothrombin Time Whole Bld POC 19.8 11.1-13.5 sec INR WHOLE BLOOD POC Reviewed date:05/27/2025 12:31:20 PM Interpretation: Performing Lab:[address] [address] Notes/Report: PT, INR - [facility] 1.8 0.9-1.1 METER #: [id number] INTERNATIONAL NORMALIZED RATIO (INR) REFERENCE RANGES Reference [...] OC Reviewed date:05/27/2025 12:31:13 PM Interpretation: Performing Lab:[facility], [address] [place] [address] Notes/Report: Prothrombin Time Whole Bld POC 21.4 11.1-13.5 sec Prostate Specific Antigen Reviewed date:06/03/2025 05:00:17 PM Interpretation: Performing Lab:[facility], [address] [place] [phone] Notes/Report: Prostate Specific Antigen < 0.10 <0.05-4.0 ng/mL PSA methodology: ReachLocal i Chemiluminescent Microparticle Immunoassay (CMIA) INR WHOLE BLOOD POC (Not ye t reviewed by provider) Interpretation: Performing Lab:[facility], [address] [place] [address] Notes/Report: PT, INR - [facility] 2.1 0.9-1.1 METER #: [id number] INTERNATIONAL NORMALIZED RATIO (INR) REFERENCE RANGES Reference [...] (Not yet reviewed by provider) Interpretation: Performing Lab:[address] [address] Notes/Report: Prothrombin Time Whole Bld POC 25.7 11.1-13.5 sec Reason For Referral Reason please verito nguyen for for intermediate and any other services he made need Diagnosis 1 Atrial fibrillation, unspecified type (I48.91) Diagnosis 2 COPD without exacerb ation (J44.9) Diagnosis 3 Bilateral leg weakne ss (R29.898) Referral Organization Jake Pepper MD Referring Provider First Name Jake Referring Provider Last Name Evgeny Referring Provider Speciality Internal M edicine Referred Provider [facility] Referred Provider Specialty Unknown General Notes Minerva Duff 0 04/12/2025 11:55:29 AM > referral info faxedOmega Annette 04/12/2025 01:22:33 PM >this referral will not be used due to they do not take his insurance. Spoke with [facility] Montiel, she will be working on getting him services. Referral Priority Routine Medications Medication SIG (Take, Route, Frequency, Duration) Notes Start Date End Date Status amLODIPine Besylate 5 MG 1 tablet Orally [...] hrs for 30 days 01/26/2013 Not-Taking Nystatin 999710 UNIT/GM 1 application Externally Twice a day [...] Orally On ce a day Not-Taking Nystatin 264144 UNIT/GM 1 application Externally Twice a day for 10 days 03/19/2025 Active Zolpidem Tartrate 5 MG TAKE 1 TABLET BY MOUTH DAILY AT BEDTIME Orally Once a day for 30 days 03/09/2025 Active Doxycycline Monohydrate 100 MG 1 capsule Orally Once a day Not-Taking Nystatin-Triamcinolone 908812-1.1 UNIT/GM 1 application Externally Twice a day for 10 days 03/14/2020 Not-Taking Wixela Inhub 250-50 MCG/DOSE 1 puff Inhalation Twice a day Not-Taking oxyBUTYnin Chloride 5 MG TAKE 1 TABLET B Y MOUTH DAILY for 90 Not-Taking Bicalutamide 50 MG 1 tablet Orally Once a day for 30 day(s) Not-Taking Warfarin Sodium 3 MG TAKE 2-2 1/2 TABLET S BY MOUTH DAILY for 36 Active Immunizations Vaccine Route Administration Date Status Comme [...] red Fluarix Quadrivalent Unknown 08/05/2018 Administered At [facility] Influenza High Dose IM Intramuscular 08/03/2019 Administer [...] Problem Status W/U Status Risk Notes Problem 30129845 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 Problem Insomnia (991216952) Insomnia (G47.00) Active confirmed Problem 3583160 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) Active confirmed Problem Cataract (148983722) Unspecified cataract (H26.9) Active confirmed Problem Conductive hearing loss, bilateral (929829282) Conductive hearing loss, 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) Active confirmed Problem 3421690 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) Active confirmed Problem 92334326 Essential hypert ension (I10) Active confirmed Problem 749748552 Prostate cancer (C61) Active confirme d Problem 4073784 Psoriasis (L40.9) Active confirmed Problem 128524257 Lung nodule (R91.1) Active confirmed Problem Low testosterone (568728609) Low testosterone (E29.1) Active confirmed Problem 8895663103093171 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 Problem 240393995 Lung nodules (R91.8) Active confirmed Problem 425572633 Cervical disc di sease (M50.90) Active confirmed Problem 328629970 Tension headache (G44.209) Active confirmed Problem 4239803 Former smoker (Z87.891) Active confirmed Problem Acute exacerbation of chronic obstructive airways disease (393152688) COPD exacerbation (J44.1) Active confirmed Problem Postherpetic neuralgia (8098385) Post herpetic neuralgia (B02.29) Active confirmed Problem 84799078 Dysthymia (F34.1) Active confirmed Problem Iron deficiency anemia (10720007) Iron deficiency anemia, unspecified iron deficiency anemia type (D50.9) Active confirmed Problem 38827888 Atrial fibrillat ion, unspecified type (I48.91) Active confirmed Problem 2473346 Urinary obstruct ion (N13.9) Active confirmed Problem Leukocytosis (535139799) Elevated WBC count (D72.829) Active confirmed Problem 16962684 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 confirmed Problem 622201649 Pure hypercholesterolemia (E78.00) Active confirmed Problem 117744539 BMI 30.0-30.9,ad ult (Z68.30) Active confirmed Problem 164571448 COPD with exacer bation (J44.1) Active confirmed Problem 228201516 Hypertensive cri sis (I16.9) Active confirmed Problem Gout (29341191) Acute gout, unspecified cause, unspecified site (M10.9) Active confirmed Problem 41821676 COPD without exacerbation (J44.9) Active confirmed Problem Gout (77668693) Acute gout of ri ght knee, unspecified cause (M10.9) Active confirmed Problem 999253443 Mixed conductive and sensorineural hearing loss of [...] Jake Pepper MD [address] [place] [address] [id number] 08/20/2024 Jake Pepper Pure hypercholestero lemia E78.00 Jake Pepper MD [address] [place] [address] [id number] 02/19/2025 Jake Pepper Blood tests for rout ine general physical examination Z00.00 ; Essential hypertension I10 ; Pure hypercholesterolemia E78.00 and Iron deficiency anemia, unspecified iron deficiency anemia type D50.9 Jake Pepper MD [address] [place] [address] [id number] 07/07/2024 Jake Pepper Tension headache G44 .209 Jake Pepper MD [address] [place] [address] [id number] 08/27/2024 Jake Pepper Essential hypertensi on I10 ; Pure hypercholesterolemia E78.00 ; Atrial fibrillation, unspecified type I48.91 and COPD without exacerbation J44.9 Jake Pepper MD [address] [place] [address] [id number] 01/22/2025 Jake Pepper Panlobular emphysema J43.1 ; Atrial fibrillation, unspecified type I48.91 and Unspecified cataract H26.9 Jake Pepper MD [address] [place] [address] [id number] 02/26/2025 Jake Pepper Essential hypertensi on I10 ; Annual physical exam Z00.00 ; Panlobular emphysema J43.1 ; Pure hypercholesterolemia E78.00 ; Dysthymia F34.1 ; Iron deficiency anemia, unspecified iron deficiency anemia type D50.9 and Depression screening Z13.31 Jake Pepper MD [address] [place] [address] [id number] 03/18/2025 Jake Pepper Thrush B37.0 Jake Pepper MD [address] [place] [address] [id number] 03/29/2025 Jake Pepper Essential hypertensi on I10 ; Panlobular emphysema J43.1 ; Shingles B02.9 and Thrush B37.0 Jake Pepper MD [address] [place] [address] [id number] 04/05/2025 Jake Pepper Post herpetic neural dung B02.29 ; Skin tear of right forearm without complication, initial encounter S51.801A ; Essential hypertension I10 and Atrial fibrillation, unspecified type I48.91 Jake Pepper MD [address] [place] [address] [id number] 04/20/2025 Jake Pepper Post herpetic neural dung B02.29 ; Skin tear of right forearm without complication, initial encounter S51.801A and Atrial fibrillation, unspecified type I48.91 Jake Pepper MD [address] [place] [address] [id number] 12/21/2024 Jake Pepper MD [address] [place] [address] [id number] 02/19/2025 Jake Pepper MD [address] [place] [address] [id number] 03/19/2025 Jaek ePpper MD [address] [place] [address] [id number] 03/26/2025 Jake Pepper MD [address] [place] [address] [id number] 04/01/2025 Jake Pepper MD [address] [place] [address] [id number] 04/13/2025 Jake Pepper MD [address] [place] [address] [id number] 05/07/2025 Jake Pepper MD [address] [place] [address] [id number] 05/11/2025 Jake Pepper MD [address] [place] [address] [id number] 06/07/2024 Jake Pepper Insomnia G47.00 Jake Pepper MD [address] [place] [address] [id number] 07/07/2024 Jake Bombardier Insomnia G47.00 Jake Pepper MD [address] [place] [address] [id number] 08/06/2024 Jake Bombardier Insomnia G47.00 Jake Pepper MD [address] [place] [address] [id number] 09/02/2024 Jake Bombardier Insomnia G47.00 Jake Pepper MD [address] [place] [address] [id number] 10/05/2024 Jake Bombardier Insomnia G47.00 Jake Pepper MD [address] [place] [address] [id number] 11/08/2024 Jake Bombardier Insomnia G47.00 Jake Pepper MD [address] [place] [address] [id number] 12/07/2024 Jake Bombardier Insomnia G47.00 Jake Pepper MD [address] [place] [address] [id number] 01/06/2025 Jake Bombardier Insomnia G47.00 Jake ePpper MD [address] [place] [address] [id number] 02/05/2025 Jake Bombardier Insomnia G47.00 Jake Pepper MD [address] [place] [address] [id number] 02/10/2025 Jake Pepper MD [address] [place] [address] [id number] 02/12/2025 Jake Pepper MD [address] [place] [address] [id number] 03/08/2025 Jake Bombardier Insomnia G47.00 Assessments Encounter [...] 10/15/2022 Folate 02/09/2021 INR WHOLE BLOOD POC 06/04/2025 Prothrombin Time Whole Bld POC Future Test Test Name Order Date CT chest wo con 02/04/2023 Next Appt Details Provider Name:Jake Miller ier, 08/19/2025 07:00:00 AM, [address] [facility], [address], [place], [place], [phone], Provider Name:Jake Miller ier, 08/26/2025 10:00:00 AM, [address] [place] [address], [address], [place], [place], [phone], Provider Name:Jake Miller ier, 02/24/2026 07:15:00 AM, [address] [place] [address], [address], [place], [place], [phone], Provider Name:Jake Miller ier, 03/03/2026 09:30:00 AM, [address] [place] [address], [address], [place], [place], [phone], Insurance Providers Payer Name Payer Address Payer Phone Subscriber Number Group Number Insured Name Patient Relationship to Insured Coverage Start Date Coverage End Date [employer]AN [facility] [address] [place] [phone] [id number] WendyKalyan christy Self - patient is the insured MEDICARE [employer] [address] [place] [address] [id number] WendyKalyan Self - patient is the insured Medical (General) History Medical History History ICD Code 03/2004 - colonoscopy (repea t 10 years); colonoscopy [address] Rajput Smoker unmotivated to quit F17.210 biculatimide and finasteraide for prosta te cancer Surgical History Surgery Date(Month/Year) Repair of Umbilical Hernia w/Mesh (Dr. Darrell guido) 04/2019
--- OUTSIDE RECORDS SUMMARY | 2025-06-04 10:05 | XMS_ITS | Encounter Summary ---
Author Organization [facility] Address [address] [place] [address] Care Team Providers Care Recycle Worker Name Role Phone Jake Pepper MD Primary Care Provider Darleen vailable Encounter Details Date Type Department Care Team Description 03/27/2018 Business Doc Medical Records [address] [place] [address] Abstract, Provider Social History Tobacco Use Types [...] on filedocumented in this encounter Care Teams Recycle Worker Relationship Specialty Start Date End Date Jake Pepper MD PCP - General Internal Medicine 02/24/18 documented as of this encounter
--- OUTSIDE RECORDS SUMMARY | 2025-06-04 10:05 | XMS_ITS | Patient Health Record ---
Author Organization [facility] Address [address] [place] [phone] Care Team Providers Care Livestock Judging Coach Name Role Phone Jake Pepper MD Primary Care Provider Luther Rajput Jr [facility] [phone] Allergies Allergen (clinical drug ingredient) Drug/Non Drug [...] Problem Status W/U Status Risk Notes Problem 605390627 Colon cancer screening (V76.51) Active confirmed Problem 790455374 Aspirin long-term use (V58.66) Active confirmed Plan Of Treatment Future Test Test Name Order Date COLONOSCOPY 07/29/2014 Insurance Providers Payer Name Payer Address Payer Phone Subscriber Number Group Number Insured Name Patient Relationship to Insured Coverage Start Date Coverage End Date [facility] [address] [place] [phone] [id number] CORNELIA JUAREZ Self - patient is the insured Medicare of [place] [employer] [address] [place] [address] [id number] CORNELIA JUAREZ Self - patient is the insured Medical (General) History Medical History History ICD Code prostate problems hypertension elevated cholesterol Surgical History Surgery Date(Month/Year) back surgery knee surgery
--- OUTSIDE RECORDS SUMMARY | 2025-06-04 10:05 | XMS_ITS | Clinical Summary ---
Author Organization [facility] Address [address] [facility] [place] [address] Care Team Providers Care Curtain Hemmer Automatic Name Role Phone Jake Pepper MD Primary [...] 07/09, 07/10/2018, Additional history exists Care Teams Curtain Hemmer Automatic Relationship Specialty Start Date End Date Jake Pepper MD PCP - General Internal Medicine 02/24/18
== END 2025-06-04 09:44 | disposition home or self-care (01) ==
LOC: HO.ACS 09:16
PROVIDERS: PCP Internal Medicine; Visit Provider Internal Medicine Medical Oncology
DX: Z79.01 Long term (current) use of anticoagulants (principal)

== ENCOUNTER → 2025-06-04 09:16 | Outpatient (BNVA) | payer MEDICARE, SELFPAY | PROVIDERS: PCP Internal Medicine; Visit Provider Internal Medicine Medical Oncology | DX: I48.0 Paroxysmal atrial fibrillation (principal); Z79.01 Long term (current) use of anticoagulants; Z51.81 Encounter for therapeutic drug level monitoring | CPT/HCPCS: 85610; 99211 ==

== ENCOUNTER 2025-06-11 10:16 | Outpatient (AMB) | payer MEDICARE, SELFPAY ==
--- OUTSIDE RECORDS SUMMARY | 2025-04-20 06:00 | XMS_ITS ---
Author Organization Jake Pepper MD Address [address] [place], [place] [phone] Care Team Providers Care District Manager Primary Care Sales Name Role Phone Jake Pepper Primary Care Provider [phone] Allergies Allergen (clinical drug ingredient) Drug/Non [...] CAPSULE BY MOUTH TWICE DAILY Active Nystatin 161449 UNIT/GM 1 application Externally Twice a day for 30 days 05/29/2022 Active Nystatin 780679 UNIT/GM 1 application Externally Twice a day [...] 14 DAYS Oral for 14 Not-Taking Nystatin-Triamcinolone 746663-5.1 UNIT/GM 1 application Externally Twice a day [...] Location Date Provider Diagnosis Jake Pepper MD [address] [place] [address] [place] [phone] 04/20/2025 Jake Pepper Post herpetic neuralgia B02.29 [...] Reason: Provider Name:Jake schmidt, 08/19/2025 07:00:00 AM, [address] [place] [address], [address] [place] [address], [phone], Provider Name:Jake schmidt, 08/26/2025 10:00:00 AM, [address] [place] [address], [address] [place] [address], [phone], Provider Name:Jake schmidt, 02/24/2026 07:15:00 AM, [address] [place] [address], [address], [phone], Provider Name:Jake Miller ier, 03/03/2026 09:30:00 AM, [address], [address], [place], [place], [phone], Progress Notes * Kalyan JUAREZ RDOB: [birth year] (84 yo M)Acc No.[id number]:04/20/2025 Progress Notes Patient: Kalyan KENNEDY Provider: Aly Pepper MD :1940 A ge:84 Y S ex:Male Date:04/20/2025 Address:[address] [place], [place] [address]Mitesh [place], [id number] Subjective: * Chief Complaints: * 2 WEEK [...] 1 tablet Orally Once a day Nystatin 651962 UNIT/GM Ointment 1 application Externally Twice a day Tamsulosin HCl 0.4 MG Capsule TAKE 1 CAPSULE BY MOUTH TWICE DAILY Atorvastatin Calcium 40 MG Tablet 1 tablet Orally Once a day Zolpidem Tartrate 5 MG Tablet TAKE 1 TABLET BY MOUTH DAILY AT BEDTIME Orally Once a day Nystatin 691014 UNIT/GM Cream 1 application Externally Twice a [...] tablet Orally Once a day Taking Nystatin 997626 UNIT/GM Ointment 1 application Externally Twice a day Taking Tamsulosin HCl 0.4 MG Capsule TAKE 1 CAPSULE BY MOUTH TWICE DAILY Taking Atorvastatin Calcium 40 MG Tablet 1 tablet Orally Once a day Taking Zolpidem Tartrate 5 MG Tablet TAKE 1 TABLET BY MOUTH DAILY AT BEDTIME Orally Once a day Taking Nystatin 415998 UNIT/GM Cream 1 application Externally Twice a [...] 1 puff Inhalation Twice a day Nystatin-Triamcinolone 560617-0.1 UNIT/GM Cream 1 application Externally Twice a [...] puff Inhalation Twice a day Not-Taking/PRN Nystatin-Triamcinolone 137864-0.1 UNIT/GM Cream 1 application Externally Twice a [...] 04/20/2025 Generated for Mabel trotter/Ashish/Franciscoitting on: 0 06/11/2025 11:20 AM EDT History and Physical Notes * [...]
--- OUTSIDE RECORDS SUMMARY | 2025-05-07 06:44 | XMS_ITS ---
Author Organization Jake Pepper MD Address [address] [place], [place] [phone] Care Team Providers Care Supplier Quality Manager Name Role Phone Jake Pepper Primary Care Provider REASON FOR VISIT RE GABAPENTIN Encounters Encounter Location Date Provider Diagnosis Jake Pepper MD [address] [place], [place] [phone] 05/07/2025 Jake Pepper Plan Of Treatment Next Appt Details Provider Name:Jake schmidt, 08/19/2025 07:00:00 AM, [address] [place] [address], [address], [phone], Provider Name:Jake schmidt, 08/26/2025 10:00:00 AM, [address], [address], [place], [phone], Provider Name:Jake Miller roxana, 02/24/2026 07:15:00 AM, [address], [address], [place], [place], [phone], Provider Name:Jake Miller kenyar, 03/03/2026 09:30:00 AM, [address] [facility], [address], [place], [place], [phone], Progress Notes * Kalyan JUAREZ RDOB: [birth year] (84 yo M)Acc No.[id number]:05/07/2025 Patient: Carmen VIRAMONTESKalyan :1940 A ge:84 Y S ex:Male Address:[address] [place] [phone] * true * Date: Generated for Mabel trotter/Ashish/Erikasmitting on: 0 06/11/2025 11:20 AM EDT
--- OUTSIDE RECORDS SUMMARY | 2025-05-11 06:57 | XMS_ITS ---
Author Organization Jake Pepper MD Address [address] [place], [place] [phone] Care Team Providers Care Lump Receiver Name Role Phone Jake Pepper Primary Care Provider REASON FOR VISIT INR of 1.4 Encounters Encounter Location Date Provider Diagnosis Jake Pepper MD [address] [place], [place] [phone] 05/11/2025 Jake Pepper Plan Of Treatment Next Appt Details Provider Name:Jake schmidt, 08/19/2025 07:00:00 AM, 10 [facility], Suite [facility], [place], [place], [phone], Provider Name:Jake schmidt, 08/26/2025 10:00:00 AM, [address], [address], [place], [phone], Provider Name:Jake Miller roxana, 02/24/2026 07:15:00 AM, [address] [facility] [address], [address], [place], [phone], Provider Name:Jake Miller roxana, 03/03/2026 09:30:00 AM, [address] [facility] [address], [address], [place], [phone], Progress Notes * Kalyan JUAREZ RDOB: [birth year] (84 yo M)Acc No.[id number]:05/11/2025 Patient: Carmen VIRAMONTESKalyan :1940 A ge:84 Y S ex:Male Address:[address] [place] [address] [place] [address] * true * Date: Generated for Mabel trotter/Ashish/eTransmitting on: 0 06/11/2025 11:20 AM EDT
--- OUTSIDE RECORDS SUMMARY | 2025-06-09 05:00 | XMS_ITS ---
Author Organization Jake Pepper MD Address [address] [place] [phone] Care Team Providers Care Video Game Developer Name Role Phone Jake Pepper Primary Care Provider REASON FOR VISIT New Refill Request Medications Medication SIG (Take, Route, Fr equency, Duration) Notes Start Date End Date Status Zolpidem Tartrate 5 MG TAKE 1 TABLET BY MOUTH DAILY AT BEDTIME Orally Once a day for 30 days 06/10/2025 Active Encounters Encounter Location Date Provider Diagnosis Jake Pepper MD [address] [place] [phone] 06/09/2025 Jake Pepper Insomnia G47.00 Assessments Encounter [...] Provider Name:Jake Miller ier, 08/19/2025 07:00:00 AM, [address] [place] [address], Suite [facility], [place], [place], [phone], Provider Name:Jake Miller ier, 08/26/2025 10:00:00 AM, [address] [place] [address], [place] [address], [place], [place], [phone], Provider Name:Jake Miller ier, 02/24/2026 07:15:00 AM, [address] [place] [address], [place] [address], [place], [place], [phone], Provider Name:Jake Miller kenyar, 03/03/2026 09:30:00 AM, [address] [place] [address], [place] [address], [place], [place], [phone], Progress Notes * Kalyan JUAREZ RDOB: [birth year] (84 yo M)Acc No.[id number]:06/09/2025 Patient: Carmen VIRAMONTESKalyan :1940 A ge:84 Y S ex:Male Address:[address] [place] [phone] * Refills Refill Zolpidem Tartrate Tablet, 5 MG, Orally, 30, TAKE 1 TABLET BY MOUTH DAILY AT BEDTIME, Once a day, 30 days, Refills=0 * true * Date: Generated for Mabel trotter/Ashish/Erikasmitting on: 0 06/11/2025 11:20 AM EDT
--- OUTSIDE RECORDS SUMMARY | 2025-06-10 10:00 | XMS_ITS ---
Author Organization Jake Pepper MD Address [address] [place] [phone] Care Team Providers Care Associate Spa Director Name Role Phone Jake Pepper Primary Care Provider [phone] REASON FOR VISIT New Refill Request Medications Medication SIG (Take, Route, Fr equency, Duration) Notes Start Date End Date Status Gabapentin 300 MG 1 capsule Orally twi ce a day for 30 days 04/05/2025 Active Encounters Encounter Location Date Provider Diagnosis Jake Pepper MD [address] [place] [phone] 06/10/2025 Jake Pepper Post herpetic neuralgia B02.29 [...] Provider Name:Jake Miller ier, 08/19/2025 07:00:00 AM, [address] [place] [address], Suite [facility], [place], [place], [phone], Provider Name:Jake Miller ier, 08/26/2025 10:00:00 AM, [address] [place] [address], Suite [facility], [place], [place], [phone], Provider Name:Jake Miller ier, 02/24/2026 07:15:00 AM, [address] [place] [address], Suite [facility], [place], [place], [phone], Provider Name:Jake Miller ier, 03/03/2026 09:30:00 AM, [address] [place] [address], [address] [place] [address], [phone], Progress Notes * Kalyan JUAREZ RDOB: [birth year] (84 yo M)Acc No.[id number]:06/10/2025 Patient: Carmen NELLSEANKalyan :1940 A ge:84 Y S ex:Male Address:[address] [place] [phone] * Refills Refill Gabapentin Capsule, 300 MG, Orally, 60 Capsule, 1 capsule, twice a day, 30 days * true * Date: Generated for Mabel trotter/Ashish/eTransmitting on: 0 06/11/2025 11:20 AM EDT
--- NOTE | 2025-06-11 10:55 | MHC.OFFVISCO ---
Intake Intake Visit Reasons: Anticoagulation Allergies pneumococcal vaccine (PNEUMOCOCCAL VACCINE) Allergy (Intermediate, Verified 06/11/25 11:06) RASH amoxicillin (From Augmentin) Allergy (Unknown, Verified 06/11/25 11:06) Swelling clavulanic acid (From Augmentin) Allergy (Unknown, Verified 06/11/25 11:06) Swelling theophylline Adverse Reaction (Intermediate, Verified 06/11/25 11:06) Loss of Appetite Medication List - Last Reconciled 06/11/25 by Amisha Winter RN albuterol sulfate 90 mcg/actuation 2 puffs PO Q2H PRN atorvastatin 40 mg PO DAILY carvedilol 6.25 mg PO BID cyanocobalamin (vitamin B-12) 1,000 mcg PO DAILY furosemide 60 mg (1.5 x 40 mg) PO DAILY gabapentin mg PO DAILY ipratropium-albuterol 0.5 mg-3 mg(2.5 mg base)/3 mL 3 mL inhalation TID multivitamin (One Daily Multivitamin tablet) 1 tab PO DAILY nystatin 1 appl topical BID tamsulosin 0.4 mg PO BID 90 days warfarin See Protocol 6mg X 5DAYS, 3MG X 2 DAYS orally, Take medication 1-2 tabs as directed per anticoagulation clinic based on your INR Nursing Note INR 1.9-?? out of therapeutic range of 2-3 Medications and supplements reviewed Patient status: pt to acs in w/c- on cont oxygen, acompanied by Medications or supplements: no changes Diet: ensure every other day, appetite fair Denies any signs and symptoms of bleeding or clotting or unusual bruising Bleeding, bruising, clotting discussed Nutritional guidance given: no greens for 2 days, eat reds to raise Dose: 9mg today and tomm, then cont 9mg x 2, 6mg x5 F/U INR Date : 1 week?? Patient verbalizing understanding of instructions given. Anti-Coag Initial Assessment Social Hx Patient Tobacco Use Status: Former Tobacco user alcohol intake: never Alcohol intake frequency: 0-2 drinks per day Cardiovascular Hx: HTN, KS (non stemi) and Arrhythmias (afib) Lung Disease HX: COPD Musculoskeletal Hx: Gout Blood Disorder Hx: Hyperlipidemia GI Hx: Hemorrhoids Hx: Kidney Disease (naren) and Prostate (prostate cancer) Cancer HX: Yes Psych. 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
[2025-06-11 10:56] LABS: Prothrombin Time Whole Bld POC 23.2 sec (11.1-13.5); ~PT, ~INR - Anti Coag Clinic 1.9 (0.9-1.1)
--- OUTSIDE RECORDS SUMMARY | 2025-06-11 11:20 | XMS_ITS | Patient Health Record ---
Author Organization Jake Pepper MD Address [address] [place], [place] [id number] Care Team Providers Care Support Services Rep Name Role Phone Jake Pepper Primary Care Provider Allergies Allergen (clinical drug ingredient) Drug/Non Drug Allergy documented on EMR Reaction Allergy Type Onset Date Status Lamisil rash Drug Allergy Active Vaccine product containing Streptococcus pneumoniae antigen (medicinal product) Pneumovax (uncoded) local reaction redness Allergy Active Results Component Value Reference Range Notes Liver Panel Reviewed date:08/20/2024 03:17:01 PM Interpretation: Performing Lab:[facility], [address] [place] [phone] Notes/Report: Bilirubin Total 0.7 0.0-1.0 mg/dL Bilirubin Direct 0.3 0.0-0.5 mg/dL Aspartate Amino Transferase 42 5-37 U/L Alanine Aminotransferase 24 0-40 U/L Total Protein 7.3 6.5-8.0 g/dL Albumin Level 3.9 3.5-5.0 g/dL Alkaline Phosphatase 94 39-117 U/L Lipid Panel with Reflex Reviewed date:08/20/2024 03:16:31 PM Interpretation: Performing Lab:[facility], [address] [place] [phone] Notes/Report: Triglycerides 135 <150 mg/dL Desirable Triglyceride: [...] ff Reviewed date:02/21/2025 05:38:19 PM Interpretation: Performing Lab:[facility], [address] [place] [phone] Notes/Report: White Blood Count 10.0 4.8-10.8 X10*3/uL [...] NRBC Abs Auto 0.000 0.0-0.012 X10*3/uL Comprehensive [place]. Panel Fa st Reviewed date:02/21/2025 05:34:56 PM Interpretation: Performing Lab:[facility], [address] [place] [phone] Notes/Report: Sodium 143 135-145 mmol/L Potassium 3.8 [...] PROFILE Reviewed date:02/19/2025 12:44:54 PM Interpretation: Performing Lab:[address] [address] Notes/Report: Iron 63 45-160 mcg/dL Total Iron Binding Capacity 271 228-428 mcg/dL Percent Iron Saturation 23 15-50 % Unsaturated Iron Binding 208 Lipid Panel Reviewed date:02/19/2025 12:44:14 PM Interpretation: Performing Lab:[facility], [address] [place] [phone] Notes/Report: Triglycerides 129 <150 mg/dL Desirable Triglyceride: [...] (Free>4and<10) Reviewed date:02/19/2025 12:45:04 PM Interpretation: Performing Lab:[facility], [address] [place] [phone] Notes/Report: PSA,Total (Free>4and<10) < 0.10 0.00-4.00 ng/mL [...] t Reviewed date:02/21/2025 05:39:18 PM Interpretation: Performing Lab:[facility], [address] [place] [phone] Notes/Report: Urine, Clean Catch Color Urine Dark Yellow Appearance Urine Clear PH 6.5 5.0-9.0 Glucose Urine UA Negative Negative mg/dL Urine Blood Negative Negative Specific [place] - Urine 1.025 1.005-1.025 Urine Protein 30 (1+) Neg-Trace mg/dL Urine Ketones Trace Negative mg/dL Nitrite Urine Negative Negative Leukocyte Esterase Urine Negative Negative RBC Urine 0-2 0-2 /HPF WBC Urine 0-5 0-5 /HPF Squamous Epithelial Cell Urine 0-2 0-2 /HPF Bacteria Urine None Seen None Seen Hyaline Casts Urine 0-2 0-2 /LPF INR WHOLE BLOOD POC Reviewed date:06/25/2024 11:32:23 AM Interpretation: Performing Lab:[facility], [address] [place] [phone] Notes/Report: PT, INR - Anti Coag Clinic 3.2 0.9-1.1 METER #: [id number] INTERNATIONAL NORMALIZED RATIO (INR) REFERENCE RANGES Reference [...] OC Reviewed date:06/25/2024 12:15:50 PM Interpretation: Performing Lab:[facility], [address] [place] [phone] Notes/Report: Prothrombin Time Whole Bld POC 38.6 11.1-13.5 sec INR WHOLE BLOOD POC Reviewed date:07/09/2024 11:05:08 AM Interpretation: Performing Lab:[facility], [address] [place] [phone] Notes/Report: PT, INR - Anti Coag Clinic 2.3 0.9-1.1 METER #: [id number] INTERNATIONAL NORMALIZED RATIO (INR) REFERENCE RANGES Reference [...] OC Reviewed date:07/09/2024 12:21:37 PM Interpretation: Performing Lab:[facility], [address] [place] [phone] Notes/Report: Prothrombin Time Whole Bld POC 27.5 11.1-13.5 sec INR WHOLE BLOOD POC Reviewed date:07/22/2024 02:12:43 PM Interpretation: Performing Lab:[facility], [address] [place] [phone] Notes/Report: PT, INR - Anti Coag Clinic 1.8 0.9-1.1 METER #: [id number] INTERNATIONAL NORMALIZED RATIO (INR) REFERENCE RANGES Reference [...] OC Reviewed date:07/22/2024 02:18:21 PM Interpretation: Performing Lab:[facility], [address] [place] [phone] Notes/Report: Prothrombin Time Whole Bld POC 21.8 11.1-13.5 sec INR WHOLE BLOOD POC Reviewed date:08/04/2024 12:06:47 PM Interpretation: Performing Lab:[facility], [address] [place] [phone] Notes/Report: PT, INR - Anti Coag Clinic 2.2 0.9-1.1 METER #: [id number] INTERNATIONAL NORMALIZED RATIO (INR) REFERENCE RANGES Reference [...] OC Reviewed date:08/04/2024 12:04:48 PM Interpretation: Performing Lab:[facility], [address] [place] [phone] Notes/Report: Prothrombin Time Whole Bld POC 25.9 11.1-13.5 sec Kari Wallace Reviewed date:08/20/2024 12:43:27 PM Interpretation: Performing Lab:[facility], [address] [place] [phone] Notes/Report: Kari Wallace See Note Specimen held untested for 24 hours; Call to request Chemistry testing. INR WHOLE BLOOD POC Reviewed date:08/25/2024 07:57:52 PM Interpretation: Performing Lab:[facility], [address] [place] [phone] Notes/Report: PT, INR - Anti Coag Clinic 2.1 0.9-1.1 METER #: [id number] INTERNATIONAL NORMALIZED RATIO (INR) REFERENCE RANGES Reference [...] OC Reviewed date:08/25/2024 07:57:59 PM Interpretation: Performing Lab:[facility], [address] [place] [phone] Notes/Report: Prothrombin Time Whole Bld POC 25.6 11.1-13.5 sec INR WHOLE BLOOD POC Reviewed date:09/15/2024 09:59:14 AM Interpretation: Performing Lab:[facility], [address] [place] [phone] Notes/Report: PT, INR - Anti Coag Clinic 3.0 0.9-1.1 METER #: [id number] INTERNATIONAL NORMALIZED RATIO (INR) REFERENCE RANGES Reference [...] OC Reviewed date:09/15/2024 12:33:10 PM Interpretation: Performing Lab:[facility], [address] [place] [phone] Notes/Report: Prothrombin Time Whole Bld POC 35.5 11.1-13.5 sec INR WHOLE BLOOD POC Reviewed date:10/06/2024 04:22:44 PM Interpretation: Performing Lab:[facility], [address] [place] [phone] Notes/Report: PT, INR - Anti Coag Clinic 2.0 0.9-1.1 METER #: [id number] INTERNATIONAL NORMALIZED RATIO (INR) REFERENCE RANGES Reference [...] OC Reviewed date:10/06/2024 04:22:36 PM Interpretation: Performing Lab:[facility], [address] [place] [phone] Notes/Report: Prothrombin Time Whole Bld POC 23.5 11.1-13.5 sec Prostate Specific Antigen Reviewed date:10/09/2024 11:16:46 AM Interpretation: Performing Lab:[facility], [address] [place] [phone] Notes/Report: Prostate Specific Antigen < 0.10 <0.05-4.0 ng/mL PSA methodology: Robert Alinity i Chemiluminescent Microparticle Immunoassay (CMIA) INR WHOLE BLOOD POC Reviewed date:10/27/2024 11:14:11 AM Interpretation: Performing Lab:[facility], [address] [place] [phone] Notes/Report: PT, INR - Anti Coag Clinic 2.0 0.9-1.1 METER #: [id number] INTERNATIONAL NORMALIZED RATIO (INR) REFERENCE RANGES Reference [...] OC Reviewed date:10/27/2024 11:14:04 AM Interpretation: Performing Lab:[facility], [address] [place] [phone] Notes/Report: Prothrombin Time Whole Bld POC 23.7 11.1-13.5 sec INR WHOLE BLOOD POC Reviewed date:11/10/2024 12:18:48 PM Interpretation: Performing Lab:[facility], [address] [place] [phone] Notes/Report: PT, INR - Anti Coag Clinic 1.8 0.9-1.1 METER #: [id number] INTERNATIONAL NORMALIZED RATIO (INR) REFERENCE RANGES Reference [...] OC Reviewed date:11/10/2024 12:18:37 PM Interpretation: Performing Lab:[facility], [address] [place] [phone] Notes/Report: Prothrombin Time Whole Bld POC 21.5 11.1-13.5 sec INR WHOLE BLOOD POC Reviewed date:11/24/2024 12:04:29 PM Interpretation: Performing Lab:[facility], [address] [place] [phone] Notes/Report: PT, INR - Anti Coag Clinic 2.4 0.9-1.1 METER #: [id number] INTERNATIONAL NORMALIZED RATIO (INR) REFERENCE RANGES Reference [...] OC Reviewed date:11/24/2024 12:04:21 PM Interpretation: Performing Lab:[facility], [address] [place] [phone] Notes/Report: Prothrombin Time Whole Bld POC 28.2 11.1-13.5 sec INR WHOLE BLOOD POC Reviewed date:12/17/2024 12:38:14 PM Interpretation: Performing Lab:[facility], [address] [place] [phone] Notes/Report: PT, INR - Anti Coag Clinic 2.0 0.9-1.1 METER #: [id number] INTERNATIONAL NORMALIZED RATIO (INR) REFERENCE RANGES Reference [...] OC Reviewed date:12/17/2024 12:51:29 PM Interpretation: Performing Lab:[facility], [address] [place] [phone] Notes/Report: Prothrombin Time Whole Bld POC 23.9 11.1-13.5 sec INR WHOLE BLOOD POC Reviewed date:01/07/2025 10:59:51 AM Interpretation: Performing Lab:[facility], [address] [place] [phone] Notes/Report: PT, INR - Anti Coag Clinic 2.2 0.9-1.1 METER #: [id number] INTERNATIONAL NORMALIZED RATIO (INR) REFERENCE RANGES Reference [...] OC Reviewed date:01/07/2025 10:59:22 AM Interpretation: Performing Lab:[facility], [address] [place] [phone] Notes/Report: Prothrombin Time Whole Bld POC 26.4 11.1-13.5 sec INR WHOLE BLOOD POC Reviewed date:02/04/2025 02:25:43 PM Interpretation: Performing Lab:[facility], [address] [place] [phone] Notes/Report: PT, INR - Anti Coag Clinic 3.3 0.9-1.1 METER #: [id number] INTERNATIONAL NORMALIZED RATIO (INR) REFERENCE RANGES Reference [...] OC Reviewed date:02/04/2025 11:35:29 AM Interpretation: Performing Lab:[facility], [address] [place] [phone] Notes/Report: Prothrombin Time Whole Bld POC 39.1 11.1-13.5 sec INR WHOLE BLOOD POC Reviewed date:03/04/2025 10:01:13 AM Interpretation: Performing Lab:[facility], [address] [place] [phone] Notes/Report: PT, INR - Anti Coag Clinic 2.6 0.9-1.1 METER #: [id number] INTERNATIONAL NORMALIZED RATIO (INR) REFERENCE RANGES Reference [...] OC Reviewed date:03/04/2025 10:01:06 AM Interpretation: Performing Lab:[facility], [address] [place] [phone] Notes/Report: Prothrombin Time Whole Bld POC 31.0 11.1-13.5 sec Complete Blood Count Auto Di ff Reviewed date:03/21/2025 07:34:37 PM Interpretation: Performing Lab:[facility], [address] [place] [phone] Notes/Report: White Blood Count 7.1 4.8-10.8 X10*3/uL [...] INR Reviewed date:03/21/2025 07:30:57 PM Interpretation: Performing Lab:[address] [phone] Notes/Report: Prothrombin Time 30.9 10.9-12.4 SEC INTERNATIONAL [...] Microscopic Reviewed date:03/21/2025 07:33:45 PM Interpretation: Performing Lab:[address] [phone] Notes/Report: Color Urine Yellow Appearance Urine Clear PH 6.5 5.0-9.0 Glucose Urine UA Negative Negative mg/dL Urine Blood Negative Negative Specific [place] - Urine >= 1.030 1.005-1.025 Urine Protein 100 (2+) Neg-Trace mg/dL Urine Ketones 15 Negative mg/dL Nitrite Urine Negative Negative Leukocyte Esterase Urine Negative Negative RBC Urine 0-2 0-2 /HPF WBC Urine 0-5 0-5 /HPF Squamous Epithelial Cell Urine 3-5 0-2 /HPF Bacteria Urine None Seen None Seen Hyaline Casts Urine 11-20 0-2 /LPF Comprehensive Met. Panel Reviewed date:03/21/2025 07:33:21 PM Interpretation: Performing Lab:[facility], [address] [place] [phone] Notes/Report: Sodium 143 135-145 mmol/L Potassium 3.8 [...] Acid Reviewed date:03/21/2025 07:30:17 PM Interpretation: Performing Lab:[facility], [address] [place] [phone] Notes/Report: Lactic Acid 0.9 0.5-2.0 mmol/L Magnesium Reviewed date:03/21/2025 07:31:06 PM Interpretation: Performing Lab:[facility], [address] [place] [phone] Notes/Report: Magnesium 1.9 1.6-2.6 mg/dL Troponin-I High Sensitivity Reviewed date:03/21/2025 07:30:47 PM Interpretation: Performing Lab:[facility], [address] [place] [phone] Notes/Report: Troponin-I High Sensitivity 29.0 <3.5-35.0 ng/L The Robert high sensitivity Troponin-I results should be used in conjunction with other diagnostic information such as ECG, clinical observations and information, and patient symptoms to aid in the diagnosis of DC. B Type Natriuretic Peptide Reviewed date:03/21/2025 07:31:15 PM Interpretation: Performing Lab:[facility], [address] [place] [phone] Notes/Report: B Type Natriuretic Peptide 214 <100 pg/mL Gram stain Reviewed date:03/23/2025 10:18:58 AM Interpretation: Performing Lab:[facility], [address] [place] [phone] Notes/Report: Gram stain Gram stain results: Gram stain No polys Gram stain 2+ epithelial cells Gram stain 3+ Gram-positive cocci SARS-CoV2/FLU/RSV Reviewed date:03/21/2025 07:30:40 PM Interpretation: Performing Lab:[facility], [address] [place] [phone] Notes/Report: Influenza A PCR NEGATIVE Negative Influenza [...] by authorized laboratories. Testing performed on the [employer] GeneXpert utilizing real-time RT-PCR. All SARS CoV2 and positive influenza A/B results are reported to [facility]. Blood Culture (First) Reviewed date:03/26/2025 04:21:01 PM Interpretation: Performing Lab:[facility], [address] [place] [phone] Notes/Report: Blood Culture (First) No growth after 5 days. Blood Culture (Second) Reviewed date:03/26/2025 04:21:09 PM Interpretation: Performing Lab:[facility], [address] [place] [phone] Notes/Report: Blood Culture (Second) No growth after 5 days. Venous Blood Gases - POC Reviewed date:03/21/2025 07:30:11 PM Interpretation: Performing Lab:[facility], [address] [place] [phone] Notes/Report: VBG pH 7.54 7.32-7.43 METER #: [id number] additional_comment: Cb samantha VBG pCO2 56 METER #: [id number] additional_comment: Cb asmantha VBG pO2 56 METER #: [id number] additional_comment: Sushant singh VBG Base Excess 22.3 METER #: [id number] additional_comment: Sushant singh VBG HCO3 48 22-26 mmol/L METER #: [id number] additional_comment: Sushant singh VBG O2 % Saturation 88.0 METER #: [id number] additional_comment: Sushant singh Routine Culture Reviewed date:03/23/2025 10:20:42 AM Interpretation: Performing Lab:[facility], [address] [place] [phone] Notes/Report: Routine Culture Report - external Routine Culture 4+ Mixed skin ricci CT soft tissue neck w con Reviewed date:03/21/2025 07:30:02 PM Interpretation: Performing Lab: Notes/Report: [address] [address] [address] Scan Report Signed Patient: Kalyan Nguyen MR#: [id number] 2742 : 1940 Acct:[id number] Age/Sex: 84 / M ADM Date: 03/20/25 Loc: [place] [address]: Zoraida Donovan MD Ordering Physician: Nilsa Card Date of Service: 03/20/25 Procedure(s): CT soft tissue neck w IV con Accession Number(s): [id number] cc: Nilsa Card; Jake Pepper MD Report Number: [id number]: Total DLP = 599.99 mGy-cm CLINICAL HISTORY: [...] in OV> 03/20/252104 DD/ 03 TD/TT: 03/20/252103 [facility]: [place] [address] CT Scan Report Signed Patient: Miguel Nguyen MR#: [id number] 2742 : 1940 Acct:[id number] Age/Sex: 84 / M ADM Date: 03/20/25 Loc: [place] [address]: Zoraida Donovan MD Ordering Physician: Nilsa Card Date of Service: 03/20/25 Procedure(s): CT sof t tissue neck w IV con Accession Number(s): [id number] cc: Nilsa CardSTALIN; Jake Pepper MD Report Number: [id number]: Total DLP = 599.99 mGy-cm CLINICAL HISTORY: [...] in OV> 03/20/252104 DD/ 03 TD/TT: 03/20/252103 [facility]: CT head/brain wo con Reviewed date:03/21/2025 07:29:22 PM Interpretation: Performing Lab: Notes/Report: [address] [address] [address] Scan Report Signed Patient: Kalyan Nguyen MR#: [id number] 2742 : 1940 Acct:[id number] Age/Sex: 84 / M ADM Date: 03/20/25 Loc: [facility]- Attending Dr: Zoraida Donovan MD Ordering Physician: Nilsa Card Date of Service: 03/20/25 Procedure(s): CT head/brain wo IV con Accession Number(s): [id number] cc: Nilsa Card; Jake Pepper MD Report Number: [id number]: Total DLP = 914.64 mGy-cm CLINICAL HISTORY: [...] in OV> 03/20/252105 DD/ 04 TD/TT: 03/20/252104 [facility]: [place] [address] CT Scan Report Signed Patient: Miguel Nguyen MR#: [id number] 2742 : 1940 Acct:[id number] Age/Sex: 84 / M ADM Date: 03/20/25 Loc: [place] [address]: Zoraida Donovan MD Ordering Physician: Nilsa Card Date of Service: 03/20/25 Procedure(s): CT head/brain wo IV con Accession Number(s): [id number] cc: Nilsa Cadr; Jake Pepper MD Report Number: [id number]: Total DLP = 914.64 mGy-cm CLINICAL HISTORY: [...] in OV> 03/20/252105 DD/ 04 TD/TT: 03/20/252104 [facility]: XR chest 2V Reviewed date:03/21/2025 07:32:02 PM Interpretation: Performing Lab: Notes/Report: [address] [address] XRay Report Signed Patient: Kalyan Nguyen MR#: [id number] 2742 : 1940 Acct:[id number] Age/Sex: 84 / M ADM Date: 03/20/25 Loc: [facility] Attending Dr: Ordering Physician: Lisette Graves NP Date of Service: 03/20/25 Procedure(s): XR chest 2V Accession Number(s): [id number] cc: Jake Pepper MD; Lisette Graves NP [...] in OV> 03/20/251727 DD/ 26 TD/TT: 03/20/251726 [employer]: [address] [address] XRay Report Signed Patient: Miguel Nguyen MR#: [id number] 2742 : 1940 Acct:[id number] Age/Sex: 84 / M ADM Date: 03/20/25 Loc: [facility] Attending Dr: Ordering Physician: Lisette Graves NP Date of Service: 03/20/25 Procedure(s): XR rhina st 2V Accession Number(s): [id number] cc: Jake Pepper MD; Lisette Graves NP [...] in OV> 03/20/251727 DD/ 26 TD/TT: 03/20/251726 [facility]: Troponin-I High Sensitivity Reviewed date:03/21/2025 07:31:34 PM Interpretation: Performing Lab:[facility], [address] [place] [phone] Notes/Report: Troponin-I High Sensitivity 24.4 <3.5-35.0 ng/L The Robert high sensitivity Troponin-I results should be used in conjunction with other diagnostic information such as ECG, clinical observations and information, and patient symptoms to aid in the diagnosis of DC. Complete Blood Count Auto Di ff Reviewed date:03/21/2025 07:34:16 PM Interpretation: Performing Lab:[facility], [address] [place] [phone] Notes/Report: White Blood Count 6.6 4.8-10.8 X10*3/uL [...] INR Reviewed date:03/21/2025 07:32:30 PM Interpretation: Performing Lab:[address] [address] Notes/Report: Prothrombin Time 41.4 10.9-12.4 SEC INTERNATIONAL [...] Panel Reviewed date:03/21/2025 07:32:58 PM Interpretation: Performing Lab:[address] [address] Notes/Report: Sodium 142 135-145 mmol/L Potassium 3.4 [...] T4 Reviewed date:03/21/2025 07:31:25 PM Interpretation: Performing Lab:[facility], [address] [place] [phone] Notes/Report: TSH reflex Free T4 1.34 0.32-4.0 uIU/mL Respiratory Panel Reviewed date:03/21/2025 07:28:57 PM Interpretation: Performing Lab:[facility], [address] [place] [phone] Notes/Report: Adenovirus PCR Not Detected Not Detect. [...] testing should be considered. Results reported to [facility]. This test has been authorized by the [...] is performed by Multiplexed PCR, utilizing the [employer] Array. Prothrombin Time INR Reviewed date:03/22/2025 11:40:38 AM Interpretation: Performing Lab:[facility], [address] [place] [phone] Notes/Report: Prothrombin Time 55.7 10.9-12.4 SEC INTERNATIONAL [...] Panel Reviewed date:03/22/2025 12:35:51 PM Interpretation: Performing Lab:[address] [address] Notes/Report: Sodium 138 135-145 mmol/L Potassium 4.1 [...] Random Reviewed date:03/22/2025 04:33:37 PM Interpretation: Performing Lab:[address] [address] Notes/Report: Vancomycin Random 13.0 15-20 mcg/mL Prothrombin Time INR Reviewed date:03/23/2025 10:14:22 AM Interpretation: Performing Lab:[address] [address] Notes/Report: Prothrombin Time 49.6 10.9-12.4 SEC INTERNATIONAL [...] Creatinine Reviewed date:03/23/2025 10:14:33 AM Interpretation: Performing Lab:[address] [address] Notes/Report: Creatinine 0.99 0.5-1.4 mg/dL Creatinine Clr [...] POC Reviewed date:04/01/2025 02:15:11 PM Interpretation: Performing Lab:[address] [address] Notes/Report: PT, INR - Anti Coag Clinic 5.4 0.9-1.1 METER #: [id number] Asymptomatic Cleaned Meter Doctor Notified INTERNATIONAL NORMALIZED [...] OC Reviewed date:04/01/2025 02:14:25 PM Interpretation: Performing Lab:[address] [address] Notes/Report: Prothrombin Time Whole Bld POC 65.0 11.1-13.5 sec INR WHOLE BLOOD POC Reviewed date:04/05/2025 01:00:12 PM Interpretation: Performing Lab:[address] [place] [address] Notes/Report: PT, INR - Anti Coag Clinic 4.7 0.9-1.1 METER #: [id number] INTERNATIONAL NORMALIZED RATIO (INR) REFERENCE RANGES Reference [...] OC Reviewed date:04/05/2025 01:00:04 PM Interpretation: Performing Lab:[facility], [address] [place] [phone] Notes/Report: Prothrombin Time Whole Bld POC 55.9 11.1-13.5 sec INR WHOLE BLOOD POC Reviewed date:04/12/2025 12:38:27 PM Interpretation: Performing Lab:[facility], [address] [place] [phone] Notes/Report: PT, INR - Anti Coag Clinic 4.1 0.9-1.1 METER #: [id number] INTERNATIONAL NORMALIZED RATIO (INR) REFERENCE RANGES Reference [...] OC Reviewed date:04/12/2025 12:38:37 PM Interpretation: Performing Lab:[facility], [address] [place] [phone] Notes/Report: Prothrombin Time Whole Bld POC 49.7 11.1-13.5 sec INR WHOLE BLOOD POC Reviewed date:04/15/2025 04:00:41 PM Interpretation: Performing Lab:[address] [address] Notes/Report: PT, INR - Anti Coag Clinic 4.2 0.9-1.1 METER #: [id number] INTERNATIONAL NORMALIZED RATIO (INR) REFERENCE RANGES Reference [...] OC Reviewed date:04/15/2025 04:00:48 PM Interpretation: Performing Lab:[facility], [address] [place] [phone] Notes/Report: Prothrombin Time Whole Bld POC 50.7 11.1-13.5 sec INR WHOLE BLOOD POC Reviewed date:04/19/2025 01:36:50 PM Interpretation: Performing Lab:[facility], [address] [place] [phone] Notes/Report: PT, INR - [facility] 2.7 0.9-1.1 METER #: [id number] INTERNATIONAL NORMALIZED RATIO (INR) REFERENCE RANGES Reference [...] OC Reviewed date:04/19/2025 01:36:41 PM Interpretation: Performing Lab:[facility], [address] [place] [phone] Notes/Report: Prothrombin Time Whole Bld POC 31.9 11.1-13.5 sec INR WHOLE BLOOD POC Reviewed date:04/27/2025 12:19:28 PM Interpretation: Performing Lab:[facility], [address] [place] [phone] Notes/Report: PT, INR - [facility] 2.4 0.9-1.1 METER #: [id number] INTERNATIONAL NORMALIZED RATIO (INR) REFERENCE RANGES Reference [...] OC Reviewed date:04/27/2025 12:19:14 PM Interpretation: Performing Lab:[facility], [address] [place] [phone] Notes/Report: Prothrombin Time Whole Bld POC 29.1 11.1-13.5 sec INR WHOLE BLOOD POC Reviewed date:05/11/2025 02:35:09 PM Interpretation: Performing Lab:[facility], [address] [place] [phone] Notes/Report: PT, INR - [facility] 1.4 0.9-1.1 METER #: [id number] Asymptomatic Doctor Notified INTERNATIONAL NORMALIZED RATIO (INR) [...] OC Reviewed date:05/11/2025 02:31:58 PM Interpretation: Performing Lab:[facility], [address] [place] [phone] Notes/Report: Prothrombin Time Whole Bld POC 16.7 11.1-13.5 sec INR WHOLE BLOOD POC Reviewed date:05/14/2025 04:20:53 PM Interpretation: Performing Lab:[facility], [address] [place] [phone] Notes/Report: PT, INR - [facility] 1.6 0.9-1.1 METER #: [id number] INTERNATIONAL NORMALIZED RATIO (INR) REFERENCE RANGES Reference [...] OC Reviewed date:05/14/2025 04:28:14 PM Interpretation: Performing Lab:[facility], [address] [place] [phone] Notes/Report: Prothrombin Time Whole Bld POC 19.6 11.1-13.5 sec INR WHOLE BLOOD POC Reviewed date:05/20/2025 12:36:55 PM Interpretation: Performing Lab:[facility], [address] [place] [phone] Notes/Report: PT, INR - [facility]ag Clinic 1.6 0.9-1.1 METER #: [id number] INTERNATIONAL NORMALIZED RATIO (INR) REFERENCE RANGES Reference [...] OC Reviewed date:05/20/2025 12:36:42 PM Interpretation: Performing Lab:[facility], [address] [place] [phone] Notes/Report: Prothrombin Time Whole Bld POC 19.8 11.1-13.5 sec INR WHOLE BLOOD POC Reviewed date:05/27/2025 12:31:20 PM Interpretation: Performing Lab:[address] [phone] Notes/Report: PT, INR - Anti Coag Clinic 1.8 0.9-1.1 METER #: [id number] INTERNATIONAL NORMALIZED RATIO (INR) REFERENCE RANGES Reference [...] OC Reviewed date:05/27/2025 12:31:13 PM Interpretation: Performing Lab:[facility], [address] [place] [phone] Notes/Report: Prothrombin Time Whole Bld POC 21.4 11.1-13.5 sec Prostate Specific Antigen Reviewed date:06/03/2025 05:00:17 PM Interpretation: Performing Lab:[facility], [address] [place] [phone] Notes/Report: Prostate Specific Antigen < 0.10 <0.05-4.0 ng/mL PSA methodology: Altair Prep i Chemiluminescent Microparticle Immunoassay (CMIA) INR WHOLE BLOOD POC Reviewed date:06/04/2025 05:07:03 PM Interpretation: Performing Lab:[facility], [address] [place] [phone] Notes/Report: PT, INR - Anti Coag Clinic 2.1 0.9-1.1 METER #: [id number] INTERNATIONAL NORMALIZED RATIO (INR) REFERENCE RANGES Reference [...] Prothrombin Time Whole Bld P OC Reviewed date:06/04/2025 06:43:58 PM Interpretation: Performing Lab:[facility], [address] [place] [phone] Notes/Report: Prothrombin Time Whole Bld POC 25.7 11.1-13.5 sec INR WHOLE BLOOD POC (Not yet reviewed by provider) Interpretation: Performing Lab:[facility], [address] [place] [phone] Notes/Report: PT, INR - Anti Coag Clinic 1.9 0.9-1.1 METER #: [id number] INTERNATIONAL NORMALIZED RATIO (INR) REFERENCE RANGES Reference [...] (Not yet reviewed by provider) Interpretation: Performing Lab:[facility], [address] [place] [phone] Notes/Report: Prothrombin Time Whole Bld POC 23.2 11.1-13.5 sec Reason For Referral Reason please verito nguyen for for shelter and any other services he made need Diagnosis 1 Atrial fibrillation, unspecified type (I48.91) Diagnosis 2 COPD without exacerb ation (J44.9) Diagnosis 3 Bilateral leg weakne ss (R29.898) Referral Organization Jake Pepper MD Referring Provider First Name Jake Referring Provider Last Name Evgeny Referring Provider Speciality Internal M edicine Referred Provider [facility] Referred Provider Specialty Unknown General Notes Minerva Duff 0 04/12/2025 11:55:29 AM > referral info faxed, Minerva Duff 04/12/2025 01:22:33 PM >this referral will not be used due to they do not take his insurance. Spoke with [facility] Montiel, she will be working on getting [facility] services. Referral Priority Routine Medications Medication SIG (Take, Route, Frequency, Duration) Notes Start Date End Date Status amLODIPine Besylate 5 MG 1 tablet Orally Once a day 04/14/2021 Not-Taking Diflucan 150 MG 1 tablet Orally for 10 days 03/18/2025 Not-Taking Ocuflox 0.3 % 1 drop into [...] hrs for 30 days 01/26/2013 Not-Taking Nystatin 005623 UNIT/GM 1 application Externally Twice a day [...] Orally On ce a day Not-Taking Nystatin 273060 UNIT/GM 1 application Externally Twice a day for 10 days 03/19/2025 Active Gabapentin 300 MG 1 capsule Orally twi ce a day for 30 days 04/05/2025 Active Zolpidem Tartrate 5 MG TAKE 1 TABLET BY MOUTH DAILY AT BEDTIME Orally Once a day for 30 days 06/10/2025 Active Doxycycline Monohydrate 100 MG 1 capsule Orally Once a day Not-Taking Nystatin-Triamcinolone 977359-2.1 UNIT/GM 1 application Externally Twice a day [...] red Fluarix Quadrivalent Unknown 08/05/2018 Administered At [facility] Influenza High Dose IM Intramuscular [...] Problem Status W/U Status Risk Notes Problem 34211369 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 Problem Insomnia (320846638) Insomnia (G47.00) Active confirmed Problem 8022360 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) Active confirmed Problem Cataract (136628094) Unspecified cataract (H26.9) Active confirmed Problem Conductive hearing loss, bilateral (083565875) Conductive hearing loss, 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) Active confirmed Problem 6775286 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) Active confirmed Problem 02101131 Essential hypert ension (I10) Active confirmed Problem 867900676 Prostate cancer (C61) Active confirme d Problem 8124845 Psoriasis (L40.9) Active confirmed Problem 578233116 Lung nodule (R91.1) Active confirmed Problem Low testosterone (715756580) Low testosterone (E29.1) Active confirmed Problem 1545800309027742 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 Problem 189244515 Lung nodules (R91.8) Active confirmed Problem 219285588 Cervical disc di sease (M50.90) Active confirmed Problem 691101946 Tension headache (G44.209) Active confirmed Problem 3118459 Former smoker (Z87.891) Active confirmed Problem Acute exacerbation of chronic obstructive airways disease (788939556) COPD exacerbation (J44.1) Active confirmed Problem Postherpetic neuralgia (7781678) Post herpetic neuralgia (B02.29) Active confirmed Problem 15664952 Dysthymia (F34.1) Active confirmed Problem Iron deficiency anemia (82568952) Iron deficiency anemia, unspecified iron deficiency anemia type (D50.9) Active confirmed Problem 01184111 Atrial fibrillat ion, unspecified type (I48.91) Active confirmed Problem 4688033 Urinary obstruct ion (N13.9) Active confirmed Problem Leukocytosis (793285610) Elevated WBC count (D72.829) Active confirmed Problem 44368456 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 confirmed Problem 877440380 Pure hypercholesterolemia (E78.00) Active confirmed Problem 332372147 BMI 30.0-30.9,ad ult (Z68.30) Active confirmed Problem 030377142 COPD with exacer bation (J44.1) Active confirmed Problem 999414006 Hypertensive cri sis (I16.9) Active confirmed Problem Gout (24181180) Acute gout, unspecified cause, unspecified site (M10.9) Active confirmed Problem 48057573 COPD without exacerbation (J44.9) Active confirmed Problem Gout (60823291) Acute gout of ri ght knee, unspecified cause (M10.9) Active confirmed Problem 525221794 Mixed conductive and sensorineural hearing loss of [...] Jake Pepper MD [address] [place] [address] [id number] 08/20/2024 Jake Pepper Pure hypercholestero lemia E78.00 Jake Pepper MD [address] [place] [address] [id number] 02/19/2025 Jake Pepper Blood tests for rout ine general physical examination Z00.00 ; Essential hypertension I10 ; Pure hypercholesterolemia E78.00 and Iron deficiency anemia, unspecified iron deficiency anemia type D50.9 Jake Pepper MD [address] [place] [address] [id number] 07/07/2024 Jake Pepper Tension headache G44 .209 Jake Pepper MD [address] [place] [address] [id number] 08/27/2024 Jake Pepper Essential hypertensi on I10 ; Pure hypercholesterolemia E78.00 ; Atrial fibrillation, unspecified type I48.91 and COPD without exacerbation J44.9 Jake Pepper MD [address] [place] [address] [id number] 01/22/2025 Jake Pepper Panlobular emphysema J43.1 ; Atrial fibrillation, unspecified type I48.91 and Unspecified cataract H26.9 Jake Pepper MD [address] [place] [address] [id number] 02/26/2025 Jake Pepper Essential hypertensi on I10 ; Annual physical exam Z00.00 ; Panlobular emphysema J43.1 ; Pure hypercholesterolemia E78.00 ; Dysthymia F34.1 ; Iron deficiency anemia, unspecified iron deficiency anemia type D50.9 and Depression screening Z13.31 Jake Pepper MD [address] [place] [address] [id number] 03/18/2025 Jake Pepper Thrush B37.0 Jake Pepper MD [address] [place] [address] [id number] 03/29/2025 Jake Pepper Essential hypertensi on I10 ; Panlobular emphysema J43.1 ; Shingles B02.9 and Thrush B37.0 Jake Pepper MD [address] [place] [address] [id number] 04/05/2025 Jake Pepper Post herpetic neural dung B02.29 ; Skin tear of right forearm without complication, initial encounter S51.801A ; Essential hypertension I10 and Atrial fibrillation, unspecified type I48.91 Jake Pepper MD [address] [place] [address] [id number] 04/20/2025 Jake Pepper Post herpetic neural dung B02.29 ; Skin tear of right forearm without complication, initial encounter S51.801A and Atrial fibrillation, unspecified type I48.91 Jake Pepper MD [address] [place] [address] [id number] 12/21/2024 Jake Pepper MD [address] [place] [address] [id number] 02/19/2025 Jake Pepper MD [address] [place] [address] [id number] 03/19/2025 Jake Pepper MD [address] [place] [address] [id number] 03/26/2025 Jake Pepper MD [address] [place] [address] [id number] 04/01/2025 Jake Pepper MD [address] [place] [address] [id number] 04/13/2025 Jake Pepper MD [address] [place] [address] [id number] 05/07/2025 Jake Pepper MD [address] [place] [address] [id number] 05/11/2025 Jake Pepper MD [address] [place] [address] [id number] 07/07/2024 Jake Pepper Insomnia G47.00 Jake Pepper MD [address] [place] [address] [id number] 08/06/2024 Jake Pepper Insomnia G47.00 Jake Pepper MD [address] [place] [address] [id number] 09/02/2024 Jake Pepper Insomnia G47.00 Jake Pepper MD [address] [place] [address] [id number] 10/05/2024 Jake Pepper Insomnia G47.00 Jake Pepper MD [address] [place] [address] [id number] 11/08/2024 Jake Pepper Insomnia G47.00 Jake Pepper MD [address] [place] [address] [id number] 12/07/2024 Jake Velaardianny Insomnia G47.00 Jake Pepper MD [address] [place] [address] [id number] 01/06/2025 Jake Pepper Insomnia G47.00 Jake Pepper MD [address] [place] [address] [id number] 02/05/2025 Jake Pepper Insomnia G47.00 Jake Pepper MD [address] [place] [address] [id number] 02/10/2025 Jake Pepper MD [address] [place] [address] [id number] 02/12/2025 Jake Pepper MD [address] [place] [address] [id number] 03/08/2025 Jake Oliveiraer Insomnia G47.00 Jake Pepper MD [address] [place] [address] [id number] 06/09/2025 Jake Oliveiraer Insomnia G47.00 Jake Pepper MD [address] [place] [address] [id number] 06/10/2025 Jake Pepper Post herpetic neural dung B02.29 Assessments Encounter Date Diagnosis (ICD Code) [...] tolerating the gabapentin, will continue current regiment 07/07/2024 Insomnia (ICD-10 - G47.00) 08/06/2024 Insomnia (ICD-10 - G47.00) 09/02/2024 Insomnia (ICD-10 - G47.00) 10/05/2024 Insomnia (ICD-10 - G47.00) 11/08/2024 Insomnia (ICD-10 - G47.00) 12/07/2024 Insomnia (ICD-10 - G47.00) 01/06/2025 Insomnia (ICD-10 - G47.00) 02/05/2025 Insomnia (ICD-10 - G47.00) 03/08/2025 Insomnia (ICD-10 - G47.00) 06/09/2025 Insomnia (ICD-10 - G47.00) 06/10/2025 Post herpetic neural dung (ICD-10 - B02.29) 02/19/2025 Pure hypercholesterolemia (ICD-10 - E78.00) 08/27/2024 [...] 10/15/2022 Folate 02/09/2021 INR WHOLE BLOOD POC 06/11/2025 Prothrombin Time Whole Bld POC Future Test Test Name Order Date CT chest wo con 02/04/2023 Next Appt Details Provider Name:Jake schmidt, 08/19/2025 07:00:00 AM, [address], [place], [place], [id number], Provider Name:Jake schmidt, 08/26/2025 10:00:00 AM, [address] [place] [address] Drive, [address], [place], [place], [phone], Provider Name:Jake schmidt, 02/24/2026 07:15:00 AM, [address], [address], [place], [place], [id number], Provider Name:Jake Miller ier, 03/03/2026 09:30:00 AM, [address], [address], [place], [id number], Insurance Providers Payer Name Payer Address Payer Phone Subscriber Number Group Number Insured Name Patient Relationship to Insured Coverage Start Date Coverage End Date [employer] [facility] [address] [place] [phone] [id number] Wendy Kalyan Self - patient is the insured MEDICARE [address] [place] [address] [id number] Kalyan Nguyen Self - patient is the insured Medical (General) History Medical History History ICD Code 03/2004 - colonoscopy (repea t 10 years); colonoscopy [address] Rajput Smoker unmotivated to quit F17.210 biculatimide and finasteraide for prosta te cancer Surgical History Surgery Date(Month/Year) Repair of Umbilical Hernia w/Mesh (Dr. Darrell guido) 04/2019
--- OUTSIDE RECORDS SUMMARY | 2025-06-11 11:20 | XMS_ITS | Encounter Summary ---
Author Organization [facility] Address [address] [place] [address] Care Team Providers Care Stream Control Officer Name Role Phone Jake Pepper MD Primary Care Provider Darleen vailable Encounter Details Date Type Department Care Team Description 03/27/2018 Release of Information Medical Records [address] [place] [id number] Abstract, Provider Social History Tobacco Use Types [...] on filedocumented in this encounter Care Teams Stream Control Officer Relationship Specialty Start Date End Date Jake Pepper MD PCP - General Internal Medicine 02/24/18 documented as of this encounter
--- OUTSIDE RECORDS SUMMARY | 2025-06-11 11:21 | XMS_ITS | Patient Health Record ---
Author Organization [facility] Address [address] [place] [id number] Care Team Providers Care Platform Supervisor Name Role Phone Jake Pepper MD Primary Care Provider Luther Rajput Jr [facility] [phone] Allergies Allergen (clinical drug ingredient) Drug/Non Drug [...] Problem Status W/U Status Risk Notes Problem 999833255 Colon cancer screening (V76.51) Active confirmed Problem 616150857 Aspirin long-term use (V58.66) Active confirmed Plan Of Treatment Future Test Test Name Order Date COLONOSCOPY 07/29/2014 Insurance Providers Payer Name Payer Address Payer Phone Subscriber Number Group Number Insured Name Patient Relationship to Insured Coverage Start Date Coverage End Date [facility] [address] [place] [phone] [id number] CORNELIA JUAREZ Self - patient is the insured Medicare of [place] [employer] [address] [place] [address] [id number] CORNELIA JUAREZ Self - patient is the insured Medical (General) History Medical History History ICD Code prostate problems hypertension elevated cholesterol Surgical History Surgery Date(Month/Year) back surgery knee surgery
--- OUTSIDE RECORDS SUMMARY | 2025-06-11 11:21 | XMS_ITS | Encounter Summary ---
Author Organization [facility] Address [address] [facility] [address] [place] [address] Care Team Providers Care Carton Filling Machine Operator Name Role Phone Jake Pepper MD Primary Care Provider Darleen vailable Encounter Details Date Type Department Care Team Description 03/27/2018 Business Doc Medical Records [address] [place] [address] Abstract, Provider Social History Tobacco Use Types [...] on filedocumented in this encounter Care Teams Carton Filling Machine Operator Relationship Specialty Start Date End Date Jake Pepper MD PCP - General Internal Medicine 02/24/18 documented as of this encounter
== END 2025-06-11 11:07 | disposition home or self-care (01) ==
LOC: HO.ACS 10:16
PROVIDERS: PCP Internal Medicine; Visit Provider Internal Medicine Medical Oncology
DX: Z79.01 Long term (current) use of anticoagulants (principal)

== ENCOUNTER → 2025-06-11 10:16 | Outpatient (BNVA) | payer MEDICARE, SELFPAY | PROVIDERS: PCP Internal Medicine; Visit Provider Internal Medicine Medical Oncology | DX: I48.0 Paroxysmal atrial fibrillation (principal); Z79.01 Long term (current) use of anticoagulants; Z51.81 Encounter for therapeutic drug level monitoring | CPT/HCPCS: 85610; 99211 ==

== ENCOUNTER 2025-06-15 09:41 | Outpatient (REF) | payer MEDICARE, SELFPAY | END 2025-06-15 09:42 | disposition home or self-care (01) | LOC: HO.LAB 09:41 | PROVIDERS: PCP Internal Medicine; Visit Provider Urology | DX: C61 Malignant neoplasm of prostate (principal); R39.15 Urgency of urination; N30.40 Irradiation cystitis without hematuria | CPT/HCPCS: 99212 ==

== ENCOUNTER 2025-06-15 09:41 | Outpatient (AMB) | payer MEDICARE, SELFPAY ==
--- OUTSIDE RECORDS SUMMARY | 2025-04-20 06:00 | XMS_ITS ---
Author Organization Jake Pepper MD Address [address] [place], [place] [id number] Care Team Providers Care Regional Facilities Manager Name Role Phone Jake Pepper Primary Care Provider [phone] Allergies Allergen (clinical drug ingredient) Drug/Non [...] CAPSULE BY MOUTH TWICE DAILY Active Nystatin 791589 UNIT/GM 1 application Externally Twice a day for 30 days 05/29/2022 Active Nystatin 428275 UNIT/GM 1 application Externally Twice a day [...] 14 DAYS Oral for 14 Not-Taking Nystatin-Triamcinolone 337779-9.1 UNIT/GM 1 application Externally Twice a day [...] Location Date Provider Diagnosis Jake Pepper MD [address] [place] [address] [place] [phone] 04/20/2025 Jake Pepper Post herpetic neuralgia B02.29 [...] Reason: Provider Name:Jake schmidt, 08/19/2025 07:00:00 AM, [address] [place] [address], [address] [place] [address], [phone], Provider Name:Jake schmidt, 08/26/2025 10:00:00 AM, [address] [place] [address], [address] [place] [address], [phone], Provider Name:Jake schmidt, 02/24/2026 07:15:00 AM, [address] [place] [address], [address], [phone], Provider Name:Jake Miller ier, 03/03/2026 09:30:00 AM, [address], [address], [place], [place], [phone], Progress Notes * Kalyan JUAREZ RDOB: [birth year] (84 yo M)Acc No.[id number]:04/20/2025 Progress Notes Patient: Kalyan KENNEDY Provider: Aly Pepper MD :1940 A ge:84 Y S ex:Male Date:04/20/2025 Address:[address] [place], [place] [address]Mitesh BUTLER, [id number] Subjective: * Chief Complaints: * 2 WEEK [...] 1 tablet Orally Once a day Nystatin 567650 UNIT/GM Ointment 1 application Externally Twice a day Tamsulosin HCl 0.4 MG Capsule TAKE 1 CAPSULE BY MOUTH TWICE DAILY Atorvastatin Calcium 40 MG Tablet 1 tablet Orally Once a day Zolpidem Tartrate 5 MG Tablet TAKE 1 TABLET BY MOUTH DAILY AT BEDTIME Orally Once a day Nystatin 855126 UNIT/GM Cream 1 application Externally Twice a [...] tablet Orally Once a day Taking Nystatin 578043 UNIT/GM Ointment 1 application Externally Twice a day Taking Tamsulosin HCl 0.4 MG Capsule TAKE 1 CAPSULE BY MOUTH TWICE DAILY Taking Atorvastatin Calcium 40 MG Tablet 1 tablet Orally Once a day Taking Zolpidem Tartrate 5 MG Tablet TAKE 1 TABLET BY MOUTH DAILY AT BEDTIME Orally Once a day Taking Nystatin 984866 UNIT/GM Cream 1 application Externally Twice a [...] 1 puff Inhalation Twice a day Nystatin-Triamcinolone 433622-3.1 UNIT/GM Cream 1 application Externally Twice a [...] puff Inhalation Twice a day Not-Taking/PRN Nystatin-Triamcinolone 911609-5.1 UNIT/GM Cream 1 application Externally Twice a [...] 04/20/2025 Generated for Mabel trotter/Ashish/Franciscoitting on: 0 06/15/2025 11:19 AM EDT History and Physical Notes * [...]
--- OUTSIDE RECORDS SUMMARY | 2025-05-07 06:44 | XMS_ITS ---
Author Organization Jake Pepper MD Address [address] [place], [place] [phone] Care Team Providers Care Machine Strap Buckler Name Role Phone Jake Pepper Primary Care Provider REASON FOR VISIT RE GABAPENTIN Encounters Encounter Location Date Provider Diagnosis Jake Pepper MD [address] [facility] [address] [place], [place] [phone] 05/07/2025 Jake Pepper Plan Of Treatment Next Appt Details Provider Name:Jake schmidt, 08/19/2025 07:00:00 AM, [address] [place] [address], [address], [phone], Provider Name:Jake schmidt, 08/26/2025 10:00:00 AM, [address], [address], [place], [phone], Provider Name:Jake Miller kenyar, 02/24/2026 07:15:00 AM, [address] [facility] [address], [address], [place], [place], [phone], Provider Name:Jake Miller kenyar, 03/03/2026 09:30:00 AM, [address] [facility], [address], [place], [place], [phone], Progress Notes * Kalyan JUAREZ RDOB: [birth year] (84 yo M)Acc No.[id number]:05/07/2025 Patient: Carmen VIRAMONTESKalyan :1940 A ge:84 Y S ex:Male Address:[address] [place] [address] * true * Date: Generated for Mabel trotter/Ashish/Erikasmitting on: 0 06/15/2025 11:20 AM EDT
--- OUTSIDE RECORDS SUMMARY | 2025-05-11 06:57 | XMS_ITS ---
Author Organization Jake Pepper MD Address [address] [place], [place] [phone] Care Team Providers Care Mid Level Game Designer Name Role Phone Jake Pepper Primary Care Provider [phone] REASON FOR VISIT INR of 1.4 Encounters Encounter Location Date Provider Diagnosis Jake Pepper MD [address] [place], [place] [phone] 05/11/2025 Jake Pepper Plan Of Treatment Next Appt Details Provider Name:Jake schmidt, 08/19/2025 07:00:00 AM, 10 [facility], Suite [facility], [place], [place], [phone], Provider Name:Jake schmidt, 08/26/2025 10:00:00 AM, [address], [address], [place], [phone], Provider Name:Jake Miller roxana, 02/24/2026 07:15:00 AM, [address] [facility] [address], [address], [place], [phone], Provider Name:Jake Miller roxana, 03/03/2026 09:30:00 AM, [address] [facility] [address], [address], [place], [phone], Progress Notes * Kalyan JUAREZ RDOB: [birth year] (84 yo M)Acc No.[id number]:05/11/2025 Patient: Carmen VIRAMONTESKalyan :1940 A ge:84 Y S ex:Male Address:[address] [place] [address] [place] [address] * true * Date: Generated for Mabel trotter/Ashish/eTmartinsmitting on: 0 06/15/2025 11:20 AM EDT
--- OUTSIDE RECORDS SUMMARY | 2025-06-09 05:00 | XMS_ITS ---
Author Organization Jake Pepper MD Address [address] [place] [phone] Care Team Providers Care Air Quality Instrument Specialist Name Role Phone Jake Pepper Primary Care Provider REASON FOR VISIT New Refill Request Medications Medication SIG (Take, Route, Fr equency, Duration) Notes Start Date End Date Status Zolpidem Tartrate 5 MG TAKE 1 TABLET BY MOUTH DAILY AT BEDTIME Orally Once a day for 30 days 06/10/2025 Active Encounters Encounter Location Date Provider Diagnosis Jake Pepper MD [address] [place] [id number] 06/09/2025 Jake Pepper Insomnia G47.00 Assessments Encounter [...] Provider Name:Jake Miller ier, 08/19/2025 07:00:00 AM, [address] [place] [address], Suite [facility], [place], [place], [phone], Provider Name:Jake Miller ier, 08/26/2025 10:00:00 AM, [address] [place] [address], [place] [address], [place], [place], [phone], Provider Name:Jake Miller ier, 02/24/2026 07:15:00 AM, [address] [place] [address], [place] [address], [place], [place], [phone], Provider Name:Jake Miller kenyar, 03/03/2026 09:30:00 AM, [address] [place] [address], [place] [address], [place], [place], [phone], Progress Notes * Kalyan JUAREZ RDOB: [birth year] (84 yo M)Acc No.[id number]:06/09/2025 Patient: Carmen VIRAMONTESKalyan :1940 A ge:84 Y S ex:Male Address:[address] [place] [phone] * Refills Refill Zolpidem Tartrate Tablet, 5 MG, Orally, 30, TAKE 1 TABLET BY MOUTH DAILY AT BEDTIME, Once a day, 30 days, Refills=0 * true * Date: Generated for Mabel trotter/Ashish/Erikasmitting on: 0 06/15/2025 11:19 AM EDT
--- OUTSIDE RECORDS SUMMARY | 2025-06-10 10:00 | XMS_ITS ---
Author Organization Jake Pepper MD Address [address] [place] [phone] Care Team Providers Care Spray Gun Operator Name Role Phone Jake Pepper Primary Care Provider REASON FOR VISIT New Refill Request Medications Medication SIG (Take, Route, Fr equency, Duration) Notes Start Date End Date Status Gabapentin 300 MG 1 capsule Orally twi ce a day for 30 days 04/05/2025 Active Encounters Encounter Location Date Provider Diagnosis Jake Pepper MD [address] [place] [phone] 06/10/2025 Jake Pepper Post herpetic neuralgia B02.29 [...] Provider Name:Jake Miller ier, 08/19/2025 07:00:00 AM, [address] [place] [address], Suite [facility], [place], [place], [phone], Provider Name:Jake Miller ier, 08/26/2025 10:00:00 AM, [address] [place] [address], Suite [facility], [place], [place], [phone], Provider Name:Jake Miller ier, 02/24/2026 07:15:00 AM, [address] [place] [address], Suite [facility], [place], [place], [phone], Provider Name:Jake Miller ier, 03/03/2026 09:30:00 AM, [address] [place] [address], [address], [phone], Progress Notes * Kalyan JUAREZ RDOB: [birth year] (84 yo M)Acc No.[id number]:06/10/2025 Patient: Carmen NELLSEANKalyan :1940 A ge:84 Y S ex:Male Address:[address] [place] [phone] * Refills Refill Gabapentin Capsule, 300 MG, Orally, 60 Capsule, 1 capsule, twice a day, 30 days * true * Date: Generated for Mabel trotter/Ashish/eTransmitting on: 0 06/15/2025 11:20 AM EDT
--- NOTE | 2025-06-15 09:48 | MHC.OFFVIS ---
Intake Visit Reasons: 6m/PSA Intake Note: Pt presents to the office today: 6MO FOLLOW UP UROLOGY MEDICATIONS: FUROSEMIDE, TAMSULOSIN BLOOD THINNERS: WARFARIN LABS DONE 06/03/25: PSA <0.10 Litigation Associate Required: No Accompanied by: Self / Same As Patient Allergies pneumococcal vaccine (PNEUMOCOCCAL VACCINE) Allergy (Intermediate, Verified 06/15/25 09:49) RASH amoxicillin (From Augmentin) Allergy (Unknown, Verified 06/15/25 09:49) Swelling clavulanic acid (From Augmentin) Allergy (Unknown, Verified 06/15/25 09:49) Swelling theophylline Adverse Reaction (Intermediate, Verified 06/15/25 09:49) Loss of Appetite HPI Comments Details: Kalyan is a pleasant male. He is a patient of Dr. Gamboa. 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 Chahal February 2020 Prostate biopsy for elevated PSA - 16 Buffalo score 4+4(A); 4+3(B); 3+3(D) Number cores positive 3 Total number of cores 12 % of tissue involved 5% Therapy. GnRH with gold seed markers and radiation with 18 month hormones [facility] completed December 2020 - associated symptoms rectal urgency PSA - 01/25 <0.1, 07/27 <0.1, 10/28 <0.1 T 2, 01/26 <0.1, 05/28 <0.1, 09/27 <0.1, 02/26 T 172, 06/29 <0.1, 10/30 <0.1, 03/30 <0.1 T281, 10/31 <0.1 PFSH Medical History Non-STEMI (non-ST elevated myocardial infarction) Paronychia Hypertensive emergency Vertigo Permanent atrial fibrillation Radiation cystitis High cholesterol Gout Hypertension Essential hypertension Prostate cancer Pulmonary nodules COPD (chronic obstructive pulmonary disease) Surgical History History of spinal surgery Family History Father No problems noted. Mother No problems noted. 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 Current occupational exposures/hazards: No Review of Systems Const Denies chills and Denies fever(s) Card Reports no additional complaints and Denies syncope Resp Denies cough GI Denies abdominal pain and Denies heartburn Reports as per HPI and Denies change in libido Neuro Denies syncope Psych Denies change in libido Endo Denies change in libido Physical Exam Const General: cooperative, healthy appearing, comfortable and no acute distress Orientation/consciousness: patient oriented x3 HEENT Face and sinus: Yes normal facial exam Mouth: moist mucous membranes Neck Neck: Yes normal visual inspection, Yes full ROM and Yes trachea midline Chest Chest palpation & inspection: normal inspection of the chest Resp Effort & Inspection: normal respiratory effort, able to speak in complete sentences and no respiratory distress GI Inspection: Yes normal to inspection Back/Spine/Pelvis Cervical Spine: normal cervical lordosis Thoracic/Lumbar Spine: thoracic and lumbar spine normal to inspection Skin General skin exam: no rashes or lesions noted Neuro General: patient oriented x3, gait normal, tone normal and moves all extremities Extrem General: Yes normal to inspection and Yes capillary refill normal Assessment & Plan Assessment & Plan (1) Prostate cancer: Comment: February 2021 High-grade, external beam radiation with 18 months GnRH Code(s): C61 - Malignant neoplasm of prostate Category: Medical (2) Urinary urgency: Code(s): R39.15 - Urgency of urination Category: Medical (3) 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 While every effort has been made to ensure accuracy finishing frame runner errors may have been included. Imaging studies, laboratory and physical exam results were discussed and reviewed in detail. No major barriers to patient understanding were identified. An opportunity to ask questions regarding the treatment plan was provided. All questions were answered. The patient expressed understanding and agreement with the above treatment plan. The patient is aware they should contact our office by phone for worsening of their current condition or the appearance of new urologic symptoms. Compliance is encouraged with any medications and followup testing that is ordered. It is a privilege to participate in the urologic care of your patient. If you have any questions or concerns regarding treatment for the above conditions, or other urologic issues, please do not hesitate to contact me. The office telephone contact is [phone]. Sincerely, Dr Catarino Gottlieb MD, [facility] - Urology Compassionate Specialist Care for the Genitourinary System Coding Level of Care Code Est Pt Level 3 (04068) Complex EM visit Add On G2211 Diagnoses Prostate cancer C61 Urinary urgency R39.15 Radiation cystitis N30.40
--- OUTSIDE RECORDS SUMMARY | 2025-06-15 11:19 | XMS_ITS | Patient Health Record ---
Author Organization Jake Pepper MD Address [address] [place], [place] [id number] Care Team Providers Care Software Development Analyst Name Role Phone Jake Pepper Primary Care Provider [phone] Allergies Allergen (clinical drug ingredient) Drug/Non Drug Allergy documented on EMR Reaction Allergy Type Onset Date Status Lamisil rash Drug Allergy Active Vaccine product containing Streptococcus pneumoniae antigen (medicinal product) Pneumovax (uncoded) local reaction redness Allergy Active Results Component Value Reference Range Notes Liver Panel Reviewed date:08/20/2024 03:17:01 PM Interpretation: Performing Lab:[facility], [address] [place] [phone] Notes/Report: Bilirubin Total 0.7 0.0-1.0 mg/dL Bilirubin Direct 0.3 0.0-0.5 mg/dL Aspartate Amino Transferase 42 5-37 U/L Alanine Aminotransferase 24 0-40 U/L Total Protein 7.3 6.5-8.0 g/dL Albumin Level 3.9 3.5-5.0 g/dL Alkaline Phosphatase 94 39-117 U/L Lipid Panel with Reflex Reviewed date:08/20/2024 03:16:31 PM Interpretation: Performing Lab:[facility], [address] [place] [phone] Notes/Report: Triglycerides 135 <150 mg/dL Desirable Triglyceride: [...] ff Reviewed date:02/21/2025 05:38:19 PM Interpretation: Performing Lab:[facility], [address] [place] [address] Notes/Report: White Blood Count 10.0 4.8-10.8 X10*3/uL [...] NRBC Abs Auto 0.000 0.0-0.012 X10*3/uL Comprehensive [place]. Panel Fa st Reviewed date:02/21/2025 05:34:56 PM Interpretation: Performing Lab:[facility], [address] [place] [address] Notes/Report: Sodium 143 135-145 mmol/L Potassium 3.8 [...] PROFILE Reviewed date:02/19/2025 12:44:54 PM Interpretation: Performing Lab:[address] [address] Notes/Report: Iron 63 45-160 mcg/dL Total Iron Binding Capacity 271 228-428 mcg/dL Percent Iron Saturation 23 15-50 % Unsaturated Iron Binding 208 Lipid Panel Reviewed date:02/19/2025 12:44:14 PM Interpretation: Performing Lab:[facility], [address] [place] [phone] Notes/Report: Triglycerides 129 <150 mg/dL Desirable Triglyceride: [...] (Free>4and<10) Reviewed date:02/19/2025 12:45:04 PM Interpretation: Performing Lab:[facility], [address] [place] [phone] Notes/Report: PSA,Total (Free>4and<10) < 0.10 0.00-4.00 ng/mL [...] t Reviewed date:02/21/2025 05:39:18 PM Interpretation: Performing Lab:[facility], [address] [place] [phone] Notes/Report: Urine, Clean Catch Color Urine Dark Yellow Appearance Urine Clear PH 6.5 5.0-9.0 Glucose Urine UA Negative Negative mg/dL Urine Blood Negative Negative Specific [place] - Urine 1.025 1.005-1.025 Urine Protein 30 (1+) Neg-Trace mg/dL Urine Ketones Trace Negative mg/dL Nitrite Urine Negative Negative Leukocyte Esterase Urine Negative Negative RBC Urine 0-2 0-2 /HPF WBC Urine 0-5 0-5 /HPF Squamous Epithelial Cell Urine 0-2 0-2 /HPF Bacteria Urine None Seen None Seen Hyaline Casts Urine 0-2 0-2 /LPF INR WHOLE BLOOD POC Reviewed date:06/25/2024 11:32:23 AM Interpretation: Performing Lab:[facility], [address] [place] [phone] Notes/Report: PT, INR - Anti [facility]ag Clinic 3.2 0.9-1.1 METER #: [id number] INTERNATIONAL NORMALIZED RATIO (INR) REFERENCE RANGES Reference [...] OC Reviewed date:06/25/2024 12:15:50 PM Interpretation: Performing Lab:[facility], [address] [place] [address] Notes/Report: Prothrombin Time Whole Bld POC 38.6 11.1-13.5 sec INR WHOLE BLOOD POC Reviewed date:07/09/2024 11:05:08 AM Interpretation: Performing Lab:[facility], [address] [place] [address] Notes/Report: PT, INR - Anti [facility]ag Clinic 2.3 0.9-1.1 METER #: [id number] INTERNATIONAL NORMALIZED RATIO (INR) REFERENCE RANGES Reference [...] OC Reviewed date:07/09/2024 12:21:37 PM Interpretation: Performing Lab:[facility], [address] [place] [phone] Notes/Report: Prothrombin Time Whole Bld POC 27.5 11.1-13.5 sec INR WHOLE BLOOD POC Reviewed date:07/22/2024 02:12:43 PM Interpretation: Performing Lab:[facility], [address] [place] [phone] Notes/Report: PT, INR - [facility] 1.8 0.9-1.1 METER #: [id number] INTERNATIONAL NORMALIZED RATIO (INR) REFERENCE RANGES Reference [...] OC Reviewed date:07/22/2024 02:18:21 PM Interpretation: Performing Lab:[facility], [address] [place] [phone] Notes/Report: Prothrombin Time Whole Bld POC 21.8 11.1-13.5 sec INR WHOLE BLOOD POC Reviewed date:08/04/2024 12:06:47 PM Interpretation: Performing Lab:[facility], [address] [place] [address] Notes/Report: PT, INR - Anti Coag Clinic 2.2 0.9-1.1 METER #: [id number] INTERNATIONAL NORMALIZED RATIO (INR) REFERENCE RANGES Reference [...] OC Reviewed date:08/04/2024 12:04:48 PM Interpretation: Performing Lab:[facility], [address] [place] [phone] Notes/Report: Prothrombin Time Whole Bld POC 25.9 11.1-13.5 sec Kari Wallace Reviewed date:08/20/2024 12:43:27 PM Interpretation: Performing Lab:[facility], [address] [place] [phone] Notes/Report: Kari Wallace See Note Specimen held untested for 24 hours; Call to request Chemistry testing. INR WHOLE BLOOD POC Reviewed date:08/25/2024 07:57:52 PM Interpretation: Performing Lab:[facility], [address] [place] [phone] Notes/Report: PT, INR - Anti Coag Clinic 2.1 0.9-1.1 METER #: [id number] INTERNATIONAL NORMALIZED RATIO (INR) REFERENCE RANGES Reference [...] OC Reviewed date:08/25/2024 07:57:59 PM Interpretation: Performing Lab:[facility], [address] [place] [address] Notes/Report: Prothrombin Time Whole Bld POC 25.6 11.1-13.5 sec INR WHOLE BLOOD POC Reviewed date:09/15/2024 09:59:14 AM Interpretation: Performing Lab:[facility], [address] [place] [phone] Notes/Report: PT, INR - Anti Coag Clinic 3.0 0.9-1.1 METER #: [id number] INTERNATIONAL NORMALIZED RATIO (INR) REFERENCE RANGES Reference [...] OC Reviewed date:09/15/2024 12:33:10 PM Interpretation: Performing Lab:[facility], [address] [place] [phone] Notes/Report: Prothrombin Time Whole Bld POC 35.5 11.1-13.5 sec INR WHOLE BLOOD POC Reviewed date:10/06/2024 04:22:44 PM Interpretation: Performing Lab:[facility], [address] [place] [address] Notes/Report: PT, INR - Anti Coag Clinic 2.0 0.9-1.1 METER #: [id number] INTERNATIONAL NORMALIZED RATIO (INR) REFERENCE RANGES Reference [...] OC Reviewed date:10/06/2024 04:22:36 PM Interpretation: Performing Lab:[facility], [address] [place] [phone] Notes/Report: Prothrombin Time Whole Bld POC 23.5 11.1-13.5 sec Prostate Specific Antigen Reviewed date:10/09/2024 11:16:46 AM Interpretation: Performing Lab:[facility], [address] [place] [phone] Notes/Report: Prostate Specific Antigen < 0.10 <0.05-4.0 ng/mL PSA methodology: Robert Alinity i Chemiluminescent Microparticle Immunoassay (CMIA) INR WHOLE BLOOD POC Reviewed date:10/27/2024 11:14:11 AM Interpretation: Performing Lab:[facility], [address] [place] [phone] Notes/Report: PT, INR - Anti Coag Clinic 2.0 0.9-1.1 METER #: [id number] INTERNATIONAL NORMALIZED RATIO (INR) REFERENCE RANGES Reference [...] OC Reviewed date:10/27/2024 11:14:04 AM Interpretation: Performing Lab:[facility], [address] [place] [phone] Notes/Report: Prothrombin Time Whole Bld POC 23.7 11.1-13.5 sec INR WHOLE BLOOD POC Reviewed date:11/10/2024 12:18:48 PM Interpretation: Performing Lab:[facility], [address] [place] [phone] Notes/Report: PT, INR - Anti Coag Clinic 1.8 0.9-1.1 METER #: [id number] INTERNATIONAL NORMALIZED RATIO (INR) REFERENCE RANGES Reference [...] OC Reviewed date:11/10/2024 12:18:37 PM Interpretation: Performing Lab:[facility], [address] [place] [phone] Notes/Report: Prothrombin Time Whole Bld POC 21.5 11.1-13.5 sec INR WHOLE BLOOD POC Reviewed date:11/24/2024 12:04:29 PM Interpretation: Performing Lab:[facility], [address] [place] [phone] Notes/Report: PT, INR - Anti Coag Clinic 2.4 0.9-1.1 METER #: [id number] INTERNATIONAL NORMALIZED RATIO (INR) REFERENCE RANGES Reference [...] OC Reviewed date:11/24/2024 12:04:21 PM Interpretation: Performing Lab:[facility], [address] [place] [phone] Notes/Report: Prothrombin Time Whole Bld POC 28.2 11.1-13.5 sec INR WHOLE BLOOD POC Reviewed date:12/17/2024 12:38:14 PM Interpretation: Performing Lab:[facility], [address] [place] [phone] Notes/Report: PT, INR - Anti Coag Clinic 2.0 0.9-1.1 METER #: [id number] INTERNATIONAL NORMALIZED RATIO (INR) REFERENCE RANGES Reference [...] OC Reviewed date:12/17/2024 12:51:29 PM Interpretation: Performing Lab:[facility], [address] [place] [phone] Notes/Report: Prothrombin Time Whole Bld POC 23.9 11.1-13.5 sec INR WHOLE BLOOD POC Reviewed date:01/07/2025 10:59:51 AM Interpretation: Performing Lab:[facility], [address] [place] [phone] Notes/Report: PT, INR - Anti Coag Clinic 2.2 0.9-1.1 METER #: [id number] INTERNATIONAL NORMALIZED RATIO (INR) REFERENCE RANGES Reference [...] OC Reviewed date:01/07/2025 10:59:22 AM Interpretation: Performing Lab:[facility], [address] [place] [phone] Notes/Report: Prothrombin Time Whole Bld POC 26.4 11.1-13.5 sec INR WHOLE BLOOD POC Reviewed date:02/04/2025 02:25:43 PM Interpretation: Performing Lab:[facility], [address] [place] [address] Notes/Report: PT, INR - Anti Coag Clinic 3.3 0.9-1.1 METER #: [id number] INTERNATIONAL NORMALIZED RATIO (INR) REFERENCE RANGES Reference [...] OC Reviewed date:02/04/2025 11:35:29 AM Interpretation: Performing Lab:[facility], [address] [place] [phone] Notes/Report: Prothrombin Time Whole Bld POC 39.1 11.1-13.5 sec INR WHOLE BLOOD POC Reviewed date:03/04/2025 10:01:13 AM Interpretation: Performing Lab:[facility], [address] [place] [address] Notes/Report: PT, INR - Anti Coag Clinic 2.6 0.9-1.1 METER #: [id number] INTERNATIONAL NORMALIZED RATIO (INR) REFERENCE RANGES Reference [...] OC Reviewed date:03/04/2025 10:01:06 AM Interpretation: Performing Lab:[facility], [address] [place] [phone] Notes/Report: Prothrombin Time Whole Bld POC 31.0 11.1-13.5 sec Complete Blood Count Auto Di ff Reviewed date:03/21/2025 07:34:37 PM Interpretation: Performing Lab:[facility], [address] [place] [address] Notes/Report: White Blood Count 7.1 4.8-10.8 X10*3/uL [...] INR Reviewed date:03/21/2025 07:30:57 PM Interpretation: Performing Lab:[address] [phone] Notes/Report: Prothrombin Time 30.9 10.9-12.4 SEC INTERNATIONAL [...] Microscopic Reviewed date:03/21/2025 07:33:45 PM Interpretation: Performing Lab:[address] [phone] Notes/Report: Color Urine Yellow Appearance Urine Clear PH 6.5 5.0-9.0 Glucose Urine UA Negative Negative mg/dL Urine Blood Negative Negative Specific [place] - Urine >= 1.030 1.005-1.025 Urine Protein 100 (2+) Neg-Trace mg/dL Urine Ketones 15 Negative mg/dL Nitrite Urine Negative Negative Leukocyte Esterase Urine Negative Negative RBC Urine 0-2 0-2 /HPF WBC Urine 0-5 0-5 /HPF Squamous Epithelial Cell Urine 3-5 0-2 /HPF Bacteria Urine None Seen None Seen Hyaline Casts Urine 11-20 0-2 /LPF Comprehensive Met. Panel Reviewed date:03/21/2025 07:33:21 PM Interpretation: Performing Lab:[facility], [address] [place] [phone] Notes/Report: Sodium 143 135-145 mmol/L Potassium 3.8 [...] Acid Reviewed date:03/21/2025 07:30:17 PM Interpretation: Performing Lab:[facility], [address] [place] [phone] Notes/Report: Lactic Acid 0.9 0.5-2.0 mmol/L Magnesium Reviewed date:03/21/2025 07:31:06 PM Interpretation: Performing Lab:[facility], [address] [place] [phone] Notes/Report: Magnesium 1.9 1.6-2.6 mg/dL Troponin-I High Sensitivity Reviewed date:03/21/2025 07:30:47 PM Interpretation: Performing Lab:[facility], [address] [place] [phone] Notes/Report: Troponin-I High Sensitivity 29.0 <3.5-35.0 ng/L The Robert high sensitivity Troponin-I results should be used in conjunction with other diagnostic information such as ECG, clinical observations and information, and patient symptoms to aid in the diagnosis of [place]. B Type Natriuretic Peptide Reviewed date:03/21/2025 07:31:15 PM Interpretation: Performing Lab:[facility], [address] [place] [phone] Notes/Report: B Type Natriuretic Peptide 214 <100 pg/mL Gram stain Reviewed date:03/23/2025 10:18:58 AM Interpretation: Performing Lab:[facility], [address] [place] [address] Notes/Report: Gram stain Gram stain results: Gram stain No polys Gram stain 2+ epithelial cells Gram stain 3+ Gram-positive cocci SARS-CoV2/FLU/RSV Reviewed date:03/21/2025 07:30:40 PM Interpretation: Performing Lab:[facility], [address] [place] [address] Notes/Report: Influenza A PCR NEGATIVE Negative Influenza [...] by authorized laboratories. Testing performed on the [employer] Gene[employer]pert utilizing real-time RT-PCR. All SARS CoV2 and positive influenza A/B results are reported to [facility]. Blood Culture (First) Reviewed date:03/26/2025 04:21:01 PM Interpretation: Performing Lab:[facility], [address] [place] [phone] Notes/Report: Blood Culture (First) No growth after 5 days. Blood Culture (Second) Reviewed date:03/26/2025 04:21:09 PM Interpretation: Performing Lab:[facility], [address] [place] [phone] Notes/Report: Blood Culture (Second) No growth after 5 days. Venous Blood Gases - POC Reviewed date:03/21/2025 07:30:11 PM Interpretation: Performing Lab:[facility], [address] [place] [address] Notes/Report: VBG pH 7.54 7.32-7.43 METER #: [id number] additional_comment: Cb samantha VBG pCO2 56 METER #: [id number] additional_comment: Cb samantha VBG pO2 56 METER #: [id number] additional_comment: Sushant singh VBG Base Excess 22.3 METER #: [id number] additional_comment: Sushant singh VBG HCO3 48 22-26 mmol/L METER #: [id number] additional_comment: Sushant singh VBG O2 % Saturation 88.0 METER #: [id number] additional_comment: Sushant singh Routine Culture Reviewed date:03/23/2025 10:20:42 AM Interpretation: Performing Lab:[facility], [address] [place] [phone] Notes/Report: Routine Culture Report - external Routine Culture 4+ Mixed skin ricci CT soft tissue neck w con Reviewed date:03/21/2025 07:30:02 PM Interpretation: Performing Lab: Notes/Report: [address] [address] [address] Scan Report Signed Patient: Kalyan Nguyen MR#: [id number] 2742 : 1940 Acct:[id number] Age/Sex: 84 / M ADM Date: 03/20/25 Loc: [place] [address]: Zoraida Donovan MD Ordering Physician: Nilsa Card Date of Service: 03/20/25 Procedure(s): CT soft tissue neck w IV con Accession Number(s): [id number] cc: Nilsa Card; Jake Pepper MD Report Number: [id number]: Total DLP = 599.99 mGy-cm CLINICAL HISTORY: [...] in OV> 03/20/252104 DD/ 03 TD/TT: 03/20/252103 Liquid Compounder: [place] [address] CT Scan Report Signed Patient: Miguel Nguyen MR#: [id number] 2742 : 1940 Acct:[id number] Age/Sex: 84 / M ADM Date: 03/20/25 Loc: [place] [address]: Zoraida Donovan MD Ordering Physician: Nilsa Card Date of Service: 03/20/25 Procedure(s): CT sof t tissue neck w IV con Accession Number(s): [id number] cc: Nilsa CardSTALIN; Jake Pepper MD Report Number: [id number]: Total DLP = 599.99 mGy-cm CLINICAL HISTORY: [...] in OV> 03/20/252104 DD/ 03 TD/TT: 03/20/252103 Liquid Compounder: CT head/brain wo con Reviewed date:03/21/2025 07:29:22 PM Interpretation: Performing Lab: Notes/Report: [address] [address] [address] Scan Report Signed Patient: Kalyan Nguyen MR#: [id number] 2742 : 1940 Acct:[id number] Age/Sex: 84 / M ADM Date: 03/20/25 Loc: [facility]- Attending Dr: Zoraida Donovan MD Ordering Physician: Nilsa Card Date of Service: 03/20/25 Procedure(s): CT head/brain wo IV con Accession Number(s): [id number] cc: Nilsa Card; Jake Pepper MD Report Number: [id number]: Total DLP = 914.64 mGy-cm CLINICAL HISTORY: [...] in OV> 03/20/252105 DD/ 04 TD/TT: 03/20/252104 Liquid Compounder: [place] [address] CT Scan Report Signed Patient: Miguel Nguyen MR#: [id number] 2742 : 1940 Acct:[id number] Age/Sex: 84 / M ADM Date: 03/20/25 Loc: [place] [address]: Zoraida Doonvan MD Ordering Physician: Nilsa Card Date of Service: 03/20/25 Procedure(s): CT head/brain wo IV con Accession Number(s): [id number] cc: Nilsa Card; Jake Pepper MD Report Number: [id number]: Total DLP = 914.64 mGy-cm CLINICAL HISTORY: [...] in OV> 03/20/252105 DD/ 04 TD/TT: 03/20/252104 Liquid Compounder: XR chest 2V Reviewed date:03/21/2025 07:32:02 PM Interpretation: Performing Lab: Notes/Report: [address] [address] XRay Report Signed Patient: Kalyan Nguyen MR#: [id number] 2742 : 1940 Acct:[id number] Age/Sex: 84 / M ADM Date: 03/20/25 Loc: [facility] Attending Dr: Ordering Physician: Lisette Graves NP Date of Service: 03/20/25 Procedure(s): XR chest 2V Accession Number(s): [id number] cc: Jake Pepper MD; Lisette Graves NP [...] in OV> 03/20/251727 DD/ 26 TD/TT: 03/20/251726 Liquid Compounder: [address] [address] XRay Report Signed Patient: Miguel Nguyen MR#: [id number] 2742 : 1940 Acct:[id number] Age/Sex: 84 / M ADM Date: 03/20/25 Loc: [facility] Attending Dr: Ordering Physician: Lisette Graves NP Date of Service: 03/20/25 Procedure(s): XR rhina st 2V Accession Number(s): [id number] cc: Jake Pepper MD; Lisette Graves NP [...] in OV> 03/20/251727 DD/ 26 TD/TT: 03/20/251726 Liquid Compounder: Troponin-I High Sensitivity Reviewed date:03/21/2025 07:31:34 PM Interpretation: Performing Lab:[facility], [address] [place] [phone] Notes/Report: Troponin-I High Sensitivity 24.4 <3.5-35.0 ng/L The Robert high sensitivity Troponin-I results should be used in conjunction with other diagnostic information such as ECG, clinical observations and information, and patient symptoms to aid in the diagnosis of [place]. Complete Blood Count Auto Di ff Reviewed date:03/21/2025 07:34:16 PM Interpretation: Performing Lab:[facility], [address] [place] [phone] Notes/Report: White Blood Count 6.6 4.8-10.8 X10*3/uL [...] INR Reviewed date:03/21/2025 07:32:30 PM Interpretation: Performing Lab:[address] [address] Notes/Report: Prothrombin Time 41.4 10.9-12.4 SEC INTERNATIONAL [...] Panel Reviewed date:03/21/2025 07:32:58 PM Interpretation: Performing Lab:[address] [address] Notes/Report: Sodium 142 135-145 mmol/L Potassium 3.4 [...] T4 Reviewed date:03/21/2025 07:31:25 PM Interpretation: Performing Lab:[facility], [address] [place] [phone] Notes/Report: TSH reflex Free T4 1.34 0.32-4.0 uIU/mL Respiratory Panel Reviewed date:03/21/2025 07:28:57 PM Interpretation: Performing Lab:[facility], [address] [place] [address] Notes/Report: Adenovirus PCR Not Detected Not Detect. [...] testing should be considered. Results reported to [facility]. This test has been authorized [...] is performed by Multiplexed PCR, utilizing the [employer] Array. Prothrombin Time INR Reviewed date:03/22/2025 11:40:38 AM Interpretation: Performing Lab:[facility], [address] [place] [address] Notes/Report: Prothrombin Time 55.7 10.9-12.4 SEC INTERNATIONAL [...] Panel Reviewed date:03/22/2025 12:35:51 PM Interpretation: Performing Lab:[address] [address] Notes/Report: Sodium 138 135-145 mmol/L Potassium 4.1 [...] Random Reviewed date:03/22/2025 04:33:37 PM Interpretation: Performing Lab:[address] [address] Notes/Report: Vancomycin Random 13.0 15-20 mcg/mL Prothrombin Time INR Reviewed date:03/23/2025 10:14:22 AM Interpretation: Performing Lab:[address] [address] Notes/Report: Prothrombin Time 49.6 10.9-12.4 SEC INTERNATIONAL [...] Creatinine Reviewed date:03/23/2025 10:14:33 AM Interpretation: Performing Lab:[address] [address] Notes/Report: Creatinine 0.99 0.5-1.4 mg/dL Creatinine Clr [...] POC Reviewed date:04/01/2025 02:15:11 PM Interpretation: Performing Lab:[address] [address] Notes/Report: PT, INR - Anti Coag Clinic 5.4 0.9-1.1 METER #: [id number] Asymptomatic Cleaned Meter Doctor Notified INTERNATIONAL NORMALIZED [...] OC Reviewed date:04/01/2025 02:14:25 PM Interpretation: Performing Lab:[address] [address] Notes/Report: Prothrombin Time Whole Bld POC 65.0 11.1-13.5 sec INR WHOLE BLOOD POC Reviewed date:04/05/2025 01:00:12 PM Interpretation: Performing Lab:[address] [place] [address] Notes/Report: PT, INR - Anti Coag Clinic 4.7 0.9-1.1 METER #: [id number] INTERNATIONAL NORMALIZED RATIO (INR) REFERENCE RANGES Reference [...] OC Reviewed date:04/05/2025 01:00:04 PM Interpretation: Performing Lab:[facility], [address] [place] [phone] Notes/Report: Prothrombin Time Whole Bld POC 55.9 11.1-13.5 sec INR WHOLE BLOOD POC Reviewed date:04/12/2025 12:38:27 PM Interpretation: Performing Lab:[facility], [address] [place] [address] Notes/Report: PT, INR - Anti Coag Clinic 4.1 0.9-1.1 METER #: [id number] INTERNATIONAL NORMALIZED RATIO (INR) REFERENCE RANGES Reference [...] OC Reviewed date:04/12/2025 12:38:37 PM Interpretation: Performing Lab:[facility], [address] [place] [address] Notes/Report: Prothrombin Time Whole Bld POC 49.7 11.1-13.5 sec INR WHOLE BLOOD POC Reviewed date:04/15/2025 04:00:41 PM Interpretation: Performing Lab:[address] [address] Notes/Report: PT, INR - Anti Coag Clinic 4.2 0.9-1.1 METER #: [id number] INTERNATIONAL NORMALIZED RATIO (INR) REFERENCE RANGES Reference [...] OC Reviewed date:04/15/2025 04:00:48 PM Interpretation: Performing Lab:[facility], [address] [place] [address] Notes/Report: Prothrombin Time Whole Bld POC 50.7 11.1-13.5 sec INR WHOLE BLOOD POC Reviewed date:04/19/2025 01:36:50 PM Interpretation: Performing Lab:[facility], [address] [place] [phone] Notes/Report: PT, INR - Anti Coag Clinic 2.7 0.9-1.1 METER #: [id number] INTERNATIONAL NORMALIZED RATIO (INR) REFERENCE RANGES Reference [...] OC Reviewed date:04/19/2025 01:36:41 PM Interpretation: Performing Lab:[facility], [address] [place] [phone] Notes/Report: Prothrombin Time Whole Bld POC 31.9 11.1-13.5 sec INR WHOLE BLOOD POC Reviewed date:04/27/2025 12:19:28 PM Interpretation: Performing Lab:[facility], [address] [place] [phone] Notes/Report: PT, INR - [facility] 2.4 0.9-1.1 METER #: [id number] INTERNATIONAL NORMALIZED RATIO (INR) REFERENCE RANGES Reference [...] OC Reviewed date:04/27/2025 12:19:14 PM Interpretation: Performing Lab:[facility], [address] [place] [phone] Notes/Report: Prothrombin Time Whole Bld POC 29.1 11.1-13.5 sec INR WHOLE BLOOD POC Reviewed date:05/11/2025 02:35:09 PM Interpretation: Performing Lab:[facility], [address] [place] [phone] Notes/Report: PT, INR - [facility] 1.4 0.9-1.1 METER #: [id number] Asymptomatic Doctor Notified INTERNATIONAL NORMALIZED RATIO (INR) [...] OC Reviewed date:05/11/2025 02:31:58 PM Interpretation: Performing Lab:[facility], [address] [place] [phone] Notes/Report: Prothrombin Time Whole Bld POC 16.7 11.1-13.5 sec INR WHOLE BLOOD POC Reviewed date:05/14/2025 04:20:53 PM Interpretation: Performing Lab:[facility], [address] [place] [phone] Notes/Report: PT, INR - [facility] 1.6 0.9-1.1 METER #: [id number] INTERNATIONAL NORMALIZED RATIO (INR) REFERENCE RANGES Reference [...] OC Reviewed date:05/14/2025 04:28:14 PM Interpretation: Performing Lab:[facility], [address] [place] [phone] Notes/Report: Prothrombin Time Whole Bld POC 19.6 11.1-13.5 sec INR WHOLE BLOOD POC Reviewed date:05/20/2025 12:36:55 PM Interpretation: Performing Lab:[facility], [address] [place] [phone] Notes/Report: PT, INR - [facility] 1.6 0.9-1.1 METER #: [id number] INTERNATIONAL NORMALIZED RATIO (INR) REFERENCE RANGES Reference [...] OC Reviewed date:05/20/2025 12:36:42 PM Interpretation: Performing Lab:[facility], [address] [place] [phone] Notes/Report: Prothrombin Time Whole Bld POC 19.8 11.1-13.5 sec INR WHOLE BLOOD POC Reviewed date:05/27/2025 12:31:20 PM Interpretation: Performing Lab:[address] [phone] Notes/Report: PT, INR - [facility] 1.8 0.9-1.1 METER #: [id number] INTERNATIONAL NORMALIZED RATIO (INR) REFERENCE RANGES Reference [...] OC Reviewed date:05/27/2025 12:31:13 PM Interpretation: Performing Lab:[facility], [address] [place] [phone] Notes/Report: Prothrombin Time Whole Bld POC 21.4 11.1-13.5 sec Prostate Specific Antigen Reviewed date:06/03/2025 05:00:17 PM Interpretation: Performing Lab:[facility], [address] [place] [phone] Notes/Report: Prostate Specific Antigen < 0.10 <0.05-4.0 ng/mL PSA methodology: Altobridge i Chemiluminescent Microparticle Immunoassay (CMIA) INR WHOLE BLOOD POC Reviewed date:06/04/2025 05:07:03 PM Interpretation: Performing Lab:[facility], [address] [place] [phone] Notes/Report: PT, INR - [facility] 2.1 0.9-1.1 METER #: [id number] INTERNATIONAL NORMALIZED RATIO (INR) REFERENCE RANGES Reference [...] OC Reviewed date:06/04/2025 06:43:58 PM Interpretation: Performing Lab:[address] [phone] Notes/Report: Prothrombin Time Whole Bld POC 25.7 11.1-13.5 sec INR WHOLE BLOOD POC Reviewed date:06/11/2025 12:45:15 PM Interpretation: Performing Lab:[facility], [address] [place] [phone] Notes/Report: PT, INR - [facility] 1.9 0.9-1.1 METER #: [id number] INTERNATIONAL NORMALIZED RATIO (INR) REFERENCE RANGES Reference [...] Prothrombin Time Whole Bld P OC Reviewed date:06/11/2025 12:45:05 PM Interpretation: Performing Lab:[facility], [address] [place] [phone] Notes/Report: Prothrombin Time Whole Bld POC 23.2 11.1-13.5 sec Reason For Referral Reason please verito nguyen for for fpc and any other services he made need Diagnosis 1 Atrial fibrillation, unspecified type (I48.91) Diagnosis 2 COPD without exacerb ation (J44.9) Diagnosis 3 Bilateral leg weakne ss (R29.898) Referral Organization Jake Pepper MD Referring Provider First Name Jake Referring Provider Last Name Evgeny Referring Provider Speciality Internal M edicine Referred Provider [facility] Referred Provider Specialty Unknown General Notes Minerva Duff 0 04/12/2025 11:55:29 AM > referral info faxed, Minerva Duff 04/12/2025 01:22:33 PM >this referral will not be used due to they do not take his insurance. Spoke with [facility] Montiel, she will be working on [...] hrs for 30 days 01/26/2013 Not-Taking Nystatin 656328 UNIT/GM 1 application Externally Twice a day [...] Orally On ce a day Not-Taking Nystatin 474135 UNIT/GM 1 application Externally Twice a day for 10 days 03/19/2025 Active Gabapentin 300 MG 1 capsule Orally twi ce a day for 30 days 04/05/2025 Active Zolpidem Tartrate 5 MG TAKE 1 TABLET BY MOUTH DAILY AT BEDTIME Orally Once a day for 30 days 06/10/2025 Active Doxycycline Monohydrate 100 MG 1 capsule Orally Once a day Not-Taking Nystatin-Triamcinolone 760629-7.1 UNIT/GM 1 application Externally Twice a day [...] Problem Status W/U Status Risk Notes Problem 97709964 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 Problem Insomnia (665877446) Insomnia (G47.00) Active confirmed Problem 6171981 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) Active confirmed Problem Cataract (926182209) Unspecified cataract (H26.9) Active confirmed Problem Conductive hearing loss, bilateral (792889543) Conductive hearing loss, 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) Active confirmed Problem 6683948 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) Active confirmed Problem 65759813 Essential hypert ension (I10) Active confirmed Problem 421457661 Prostate cancer (C61) Active confirme d Problem 8193475 Psoriasis (L40.9) Active confirmed Problem 829790175 Lung nodule (R91.1) Active confirmed Problem Low testosterone (254667490) Low testosterone (E29.1) Active confirmed Problem 1460189165231656 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 Problem 831781683 Lung nodules (R91.8) Active confirmed Problem 339131509 Cervical disc di sease (M50.90) Active confirmed Problem 064371550 Tension headache (G44.209) Active confirmed Problem 1263041 Former smoker (Z87.891) Active confirmed Problem Acute exacerbation of chronic obstructive airways disease (700231756) COPD exacerbation (J44.1) Active confirmed Problem Postherpetic neuralgia (2341544) Post herpetic neuralgia (B02.29) Active confirmed Problem 46001860 Dysthymia (F34.1) Active confirmed Problem Iron deficiency anemia (97262261) Iron deficiency anemia, unspecified iron deficiency anemia type (D50.9) Active confirmed Problem 08613244 Atrial fibrillat ion, unspecified type (I48.91) Active confirmed Problem 3613197 Urinary obstruct ion (N13.9) Active confirmed Problem Leukocytosis (533726966) Elevated WBC count (D72.829) Active confirmed Problem 20705060 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 confirmed Problem 905539712 Pure hypercholesterolemia (E78.00) Active confirmed Problem 839631685 BMI 30.0-30.9,ad ult (Z68.30) Active confirmed Problem 961672675 COPD with exacer bation (J44.1) Active confirmed Problem 807514726 Hypertensive cri sis (I16.9) Active confirmed Problem Gout (54561672) Acute gout, unspecified cause, unspecified site (M10.9) Active confirmed Problem 98376419 COPD without exacerbation (J44.9) Active confirmed Problem Gout (16268167) Acute gout of ri ght knee, unspecified cause (M10.9) Active confirmed Problem 405819196 Mixed conductive and sensorineural hearing loss of [...] Jake Pepper MD [address] [place] [address] [id number] 08/20/2024 Jake Pepper Pure hypercholestero lemia E78.00 Jake Pepper MD [address] [place] [address] [id number] 02/19/2025 Jake Pepper Blood tests for rout ine general physical examination Z00.00 ; Essential hypertension I10 ; Pure hypercholesterolemia E78.00 and Iron deficiency anemia, unspecified iron deficiency anemia type D50.9 Jake Pepper MD [address] [place] [address] [id number] 07/07/2024 Jake Ppeper Tension headache G44 .209 Jake Pepper MD [address] [place] [address] [id number] 08/27/2024 Jake Pepper Essential hypertensi on I10 ; Pure hypercholesterolemia E78.00 ; Atrial fibrillation, unspecified type I48.91 and COPD without exacerbation J44.9 Jake Pepper MD [address] [place] [address] [id number] 01/22/2025 Jake Pepper Panlobular emphysema J43.1 ; Atrial fibrillation, unspecified type I48.91 and Unspecified cataract H26.9 Jake Pepper MD [address] [place] [address] [id number] 02/26/2025 Jake Pepper Essential hypertensi on I10 ; Annual physical exam Z00.00 ; Panlobular emphysema J43.1 ; Pure hypercholesterolemia E78.00 ; Dysthymia F34.1 ; Iron deficiency anemia, unspecified iron deficiency anemia type D50.9 and Depression screening Z13.31 Jake Pepper MD [address] [place] [address] [id number] 03/18/2025 Jake Pepper Thrush B37.0 Jaek Pepper MD [address] [place] [address] [id number] 03/29/2025 Jake Pepper Essential hypertensi on I10 ; Panlobular emphysema J43.1 ; Shingles B02.9 and Thrush B37.0 Jake Pepper MD [address] [place] [address] [id number] 04/05/2025 Jake Pepper Post herpetic neural dung B02.29 ; Skin tear of right forearm without complication, initial encounter S51.801A ; Essential hypertension I10 and Atrial fibrillation, unspecified type I48.91 Jake Pepper MD [address] [place] [address] [id number] 04/20/2025 Jake Pepper Post herpetic neural dung B02.29 ; Skin tear of right forearm without complication, initial encounter S51.801A and Atrial fibrillation, unspecified type I48.91 Jake Pepper MD [address] [place] [address] [id number] 12/21/2024 Jake Pepper MD [address] [place] [address] [id number] 02/19/2025 Jake Pepper MD [address] [place] [address] [id number] 03/19/2025 Jake Pepper MD [address] [place] [address] [id number] 03/26/2025 Jake Pepper MD [address] [place] [address] [id number] 04/01/2025 Jake Pepper MD [address] [place] [address] [id number] 04/13/2025 Jake Pepper MD [address] [place] [address] [id number] 05/07/2025 Jake Pepper MD [address] [place] [address] [id number] 05/11/2025 Jake Pepper MD [address] [place] [address] [id number] 07/07/2024 Jake Pepper Insomnia G47.00 Jake Pepper MD [address] [place] [address] [id number] 08/06/2024 Jake Pepper Insomnia G47.00 Jake Pepper MD [address] [place] [address] [id number] 09/02/2024 Jake Velaardianny Insomnia G47.00 Jake Pepper MD [address] [place] [address] [id number] 10/05/2024 Jake Pepper Insomnia G47.00 Jake Pepper MD [address] [place] [address] [id number] 11/08/2024 Jake Pepper Insomnia G47.00 Jake Pepper MD [address] [place] [address] [id number] 12/07/2024 Jake Velaardianny Insomnia G47.00 Jake Pepper MD [address] [place] [address] [id number] 01/06/2025 Jake Velaardianny Insomnia G47.00 Jake Pepper MD [address] [place] [address] [id number] 02/05/2025 Jake Pepper Insomnia G47.00 Jake Pepper MD [address] [place] [address] [id number] 02/10/2025 Jake Pepper MD [address] [place] [address] [id number] 02/12/2025 Jake Pepper MD [address] [place] [address] [id number] 03/08/2025 Jake Pepper Insomnia G47.00 Jake Pepper MD [address] [place] [address] [id number] 06/09/2025 Jake Pepper Insomnia G47.00 Jake Pepper MD [address] [place] [address] [id number] 06/10/2025 Jake Pepper Post herpetic neural dung [...] Provider Name:Jake zambranor, 08/19/2025 07:00:00 AM, [address] [place] [address], [address], [place], [place], [phone], Provider Name:Jake zambranor, 08/26/2025 10:00:00 AM, [address] [place] [address], [address], [place], [place], [id number], Provider Name:Jake schmidt, 02/24/2026 07:15:00 AM, [address] [place] [address], Suite [facility], [place], [place], [id number], Provider Name:Jake Miranda Pual ier, 03/03/2026 09:30:00 AM, [address], [address], [place], [place], [id number], Insurance Providers Payer Name Payer Address Payer Phone Subscriber Number Group Number Insured Name Patient Relationship to Insured Coverage Start Date Coverage End Date [employer] [address] [place] [phone] [id number] Kalyan Nguyen Self - patient is the insured MEDICARE [address] [place] [address] [id number] WendyKalyan christy Self - patient is the insured Medical (General) History Medical History History ICD Code 03/2004 - colonoscopy (repea t 10 years); colonoscopy [address] Rajput Smoker unmotivated to quit F17.210 biculatimide and finasteraide for prosta te cancer Surgical History Surgery Date(Month/Year) Repair of Umbilical Hernia w/Mesh (Dr. Darrell guido) 04/2019
--- OUTSIDE RECORDS SUMMARY | 2025-06-15 11:20 | XMS_ITS | Patient Health Record ---
Author Organization [facility] Address [address] [place] [phone] Care Team Providers Care Slider Assembler Name Role Phone Jake Pepper MD Primary Care Provider Luther Rajput Jr [facility] Allergies Allergen (clinical drug ingredient) [...] Problem Status W/U Status Risk Notes Problem 243340328 Colon cancer screening (V76.51) Active confirmed Problem 345152135 Aspirin long-term use (V58.66) Active confirmed Plan Of Treatment Future Test Test Name Order Date COLONOSCOPY 07/29/2014 Insurance Providers Payer Name Payer Address Payer Phone Subscriber Number Group Number Insured Name Patient Relationship to Insured Coverage Start Date Coverage End Date [facility] [address] [place] [phone] [id number] CORNELIA JUAREZ Self - patient is the insured Medicare of [place] [employer] [address] [place] [address] [id number] CORNELIA JUAREZ Self - patient is the insured Medical (General) History Medical History History ICD Code prostate problems hypertension elevated cholesterol Surgical History Surgery Date(Month/Year) back surgery knee surgery
== END 2025-06-15 10:28 | disposition home or self-care (01) ==
LOC: HO.HUSH 09:42
PROVIDERS: PCP Internal Medicine; Visit Provider Urology
DX: C61 Malignant neoplasm of prostate (principal); R39.15 Urgency of urination; N30.40 Irradiation cystitis without hematuria
CPT/HCPCS: 99213; G2211

== ENCOUNTER 2025-06-18 09:27 | Outpatient (AMB) | payer MEDICARE, SELFPAY ==
--- OUTSIDE RECORDS SUMMARY | 2025-04-20 06:00 | XMS_ITS ---
Author Organization Jake Pepper MD Address [address] [place], [place] [id number] Care Team Providers Care Clinical Research Spec Name Role Phone Jake Pepper Primary Care Provider [phone] Allergies Allergen (clinical drug ingredient) Drug/Non [...] CAPSULE BY MOUTH TWICE DAILY Active Nystatin 841765 UNIT/GM 1 application Externally Twice a day for 30 days 05/29/2022 Active Nystatin 522921 UNIT/GM 1 application Externally Twice a day [...] 14 DAYS Oral for 14 Not-Taking Nystatin-Triamcinolone 878457-6.1 UNIT/GM 1 application Externally Twice a day [...] Location Date Provider Diagnosis Jake Pepper MD [address] [place] [address] [place] [id number] 04/20/2025 Jake Pepper Post herpetic neuralgia B02.29 [...] Reason: Provider Name:Jake schmidt, 08/19/2025 07:00:00 AM, [address] [place] [address], [address] [place] [address], [phone], Provider Name:Jake schmidt, 08/26/2025 10:00:00 AM, [address] [place] [address], [address] [place] [address], [phone], Provider Name:Jake schmidt, 02/24/2026 07:15:00 AM, [address] [place] [address], [address], [phone], Provider Name:Jake Miller ier, 03/03/2026 09:30:00 AM, [address], [address], [place], [place], [phone], Progress Notes * Kalyan JUAREZ RDOB: [birth year] (84 yo M)Acc No.[id number]:04/20/2025 Progress Notes Patient: Kalyan KENNEDY Provider: Aly Pepper MD :1940 A ge:84 Y S ex:Male Date:04/20/2025 Address:[address] [place], [place] [address]Mitesh BRIDGER, [id number] Subjective: * Chief Complaints: * 2 WEEK [...] 1 tablet Orally Once a day Nystatin 012551 UNIT/GM Ointment 1 application Externally Twice a day Tamsulosin HCl 0.4 MG Capsule TAKE 1 CAPSULE BY MOUTH TWICE DAILY Atorvastatin Calcium 40 MG Tablet 1 tablet Orally Once a day Zolpidem Tartrate 5 MG Tablet TAKE 1 TABLET BY MOUTH DAILY AT BEDTIME Orally Once a day Nystatin 490053 UNIT/GM Cream 1 application Externally Twice a [...] tablet Orally Once a day Taking Nystatin 375117 UNIT/GM Ointment 1 application Externally Twice a day Taking Tamsulosin HCl 0.4 MG Capsule TAKE 1 CAPSULE BY MOUTH TWICE DAILY Taking Atorvastatin Calcium 40 MG Tablet 1 tablet Orally Once a day Taking Zolpidem Tartrate 5 MG Tablet TAKE 1 TABLET BY MOUTH DAILY AT BEDTIME Orally Once a day Taking Nystatin 946355 UNIT/GM Cream 1 application Externally Twice a [...] 1 puff Inhalation Twice a day Nystatin-Triamcinolone 834832-6.1 UNIT/GM Cream 1 application Externally Twice a [...] puff Inhalation Twice a day Not-Taking/PRN Nystatin-Triamcinolone 106939-5.1 UNIT/GM Cream 1 application Externally Twice a [...] 04/20/2025 Generated for Mabel trotter/Ashish/Franciscoitting on: 0 06/18/2025 10:35 AM EDT History and Physical Notes * [...]
--- OUTSIDE RECORDS SUMMARY | 2025-05-07 06:44 | XMS_ITS ---
Author Organization Jake Pepper MD Address [address] [place], [place] [phone] Care Team Providers Care Yarn Cleaner Name Role Phone Jake Pepper Primary Care Provider [phone] REASON FOR VISIT RE GABAPENTIN Encounters Encounter Location Date Provider Diagnosis Jake Pepper MD [address] [place], [place] [phone] 05/07/2025 Jake Pepper Plan Of Treatment Next Appt Details Provider Name:Jake schmidt, 08/19/2025 07:00:00 AM, [address] [place] [address], [address], [phone], Provider Name:Jake schmidt, 08/26/2025 10:00:00 AM, [address], [address], [place], [phone], Provider Name:Jake Miller kenyar, 02/24/2026 07:15:00 AM, [address], [address], [place], [place], [phone], Provider Name:Jake Miller kenyar, 03/03/2026 09:30:00 AM, [address] [facility], [address], [place], [place], [phone], Progress Notes * Kalyan JUAREZ RDOB: [birth year] (84 yo M)Acc No.[id number]:05/07/2025 Patient: Carmen VIRAMONTESKalyan :1940 A ge:84 Y S ex:Male Address:[address] [place] [phone] * true * Date: Generated for Mabel trotter/Ashish/Erikasmitting on: 0 06/18/2025 10:35 AM EDT
--- OUTSIDE RECORDS SUMMARY | 2025-05-11 06:57 | XMS_ITS ---
Author Organization Jake Pepper MD Address [address] [place], [place] [phone] Care Team Providers Care Greenhouse Manager Name Role Phone Jake Pepper Primary Care Provider REASON FOR VISIT INR of 1.4 Encounters Encounter Location Date Provider Diagnosis Jake Pepper MD [address] [place], [place] [phone] 05/11/2025 Jake Pepper Plan Of Treatment Next Appt Details Provider Name:Jake schmidt, 08/19/2025 07:00:00 AM, [address] [facility], [address] [facility], [place], [place], [phone], Provider Name:Jake schmidt, 08/26/2025 10:00:00 AM, [address], [address], [place], [phone], Provider Name:Jake Miller roxana, 02/24/2026 07:15:00 AM, [address] [facility] [address], [address], [place], [phone], Provider Name:Jake Miller roxana, 03/03/2026 09:30:00 AM, [address] [facility] [address], [address], [place], [phone], Progress Notes * Kalyan JUAREZ RDOB: [birth year] (84 yo M)Acc No.[id number]:05/11/2025 Patient: Carmen VIRAMONTESKalyan :1940 A ge:84 Y S ex:Male Address:[address] [place] [address] [place] [address] * true * Date: Generated for Mabel trotter/Ashish/eTmartinsmitting on: 0 06/18/2025 10:35 AM EDT
--- OUTSIDE RECORDS SUMMARY | 2025-06-10 10:00 | XMS_ITS ---
Author Organization Jake Pepper MD Address [address] [place] [phone] Care Team Providers Care Flat Spring Assembler Name Role Phone Jake Pepper Primary Care Provider REASON FOR VISIT New Refill Request Medications Medication SIG (Take, Route, Fr equency, Duration) Notes Start Date End Date Status Gabapentin 300 MG 1 capsule Orally twi ce a day for 30 days 04/05/2025 Active Encounters Encounter Location Date Provider Diagnosis Jake Pepper MD [address] [place] [phone] 06/10/2025 Jake Pepper Post herpetic neuralgia B02.29 [...] Provider Name:Jake Miller ier, 08/19/2025 07:00:00 AM, [address] [place] [address], Suite [facility], [place], [place], [phone], Provider Name:Jake Miller ier, 08/26/2025 10:00:00 AM, [address] [place] [address], Suite [facility], [place], [place], [phone], Provider Name:Jake Miller ier, 02/24/2026 07:15:00 AM, [address] [place] [address], Suite [facility], [place], [place], [phone], Provider Name:Jake Miller ier, 03/03/2026 09:30:00 AM, [address] [place] [address], [address], [phone], Progress Notes * Kalyan JUAREZ RDOB: [birth year] (84 yo M)Acc No.[id number]:06/10/2025 Patient: Carmen NELLSEANKalyan :1940 A ge:84 Y S ex:Male Address:[address] [place] [phone] * Refills Refill Gabapentin Capsule, 300 MG, Orally, 60 Capsule, 1 capsule, twice a day, 30 days * true * Date: Generated for Mabel trotter/Ashish/eTransmitting on: 0 06/18/2025 10:35 AM EDT
[2025-06-18 09:47] LABS: Prothrombin Time Whole Bld POC 33.9 sec (11.1-13.5); ~PT, ~INR - Anti Coag Clinic 2.8 (0.9-1.1)
--- NOTE | 2025-06-18 09:57 | MHC.OFFVISCO ---
Intake Intake Visit Reasons: Anticoagulation Allergies pneumococcal vaccine (PNEUMOCOCCAL VACCINE) Allergy (Intermediate, Verified 06/18/25 09:38) RASH amoxicillin (From Augmentin) Allergy (Unknown, Verified 06/18/25 09:38) Swelling clavulanic acid (From Augmentin) Allergy (Unknown, Verified 06/18/25 09:38) Swelling theophylline Adverse Reaction (Intermediate, Verified 06/18/25 09:38) Loss of Appetite Medication List - Last Reconciled 06/18/25 by Gertrudis Simeon RN albuterol sulfate 90 mcg/actuation 2 puffs PO Q2H PRN atorvastatin 40 mg PO DAILY carvedilol 6.25 mg PO BID cyanocobalamin (vitamin B-12) 1,000 mcg PO DAILY furosemide 60 mg (1.5 x 40 mg) PO DAILY gabapentin mg PO DAILY ipratropium-albuterol 0.5 mg-3 mg(2.5 mg base)/3 mL 3 mL inhalation TID multivitamin (One Daily Multivitamin tablet) 1 tab PO DAILY nystatin 1 appl topical BID tamsulosin 0.4 mg PO BID 90 days warfarin See Protocol 6mg X 5DAYS, 3MG X 2 DAYS orally, Take medication 1-2 tabs as directed per anticoagulation clinic based on your INR Nursing Note INR: 2.8 in therapeutic range Medications and supplements reviewed No changes in health, diet, medications, or supplements, Denies any signs and symptoms of bleeding or bruising or clotting. Bleeding, bruising, clotting discussed Nutritional guidance given - decrease cranberry juice to 3/ glasses/week and keep your ensure 3 /week Dose: 9MG X 2 DAYS/ 6MG X 5 DAYS F/U INR: 2 WEEKS Patient verbalizes understanding of instructions given Anti-Coag Initial Assessment Social Hx Patient Tobacco Use Status: Former Tobacco user alcohol intake: never Alcohol intake frequency: 0-2 drinks per day Cardiovascular Hx: HTN, [place] and Arrhythmias Lung Disease HX: COPD Musculoskeletal Hx: Gout Blood Disorder Hx: Hyperlipidemia GI Hx: Hemorrhoids Hx: Kidney Disease and Prostate Cancer HX: Yes Psych. Illness/Depression: No Coding Level of Care Code Est Patient Level 1 Diagnoses Current use of anticoagulant therapy Z79.01 Results AMB INR Fingerstick AMB INR Fingerstick 2.8 Last Edit by Gertrudis Simeon RN on 06/18/25 09:48 MANUAL ENTRY Assessment & Plan Assessment & Plan (1) Current use of anticoagulant therapy: Code(s): Z79.01 - retirement (current) use of anticoagulants Category: Medical
--- OUTSIDE RECORDS SUMMARY | 2025-06-18 10:34 | XMS_ITS | Patient Health Record ---
Author Organization Jake Pepper MD Address [address] [place], [place] [id number] Care Team Providers Care [employer] Level Five Name Role Phone Jake Pepper Primary Care Provider Allergies Allergen (clinical drug ingredient) Drug/Non Drug Allergy documented on EMR Reaction Allergy Type Onset Date Status Lamisil rash Drug Allergy Active Vaccine product containing Streptococcus pneumoniae antigen (medicinal product) Pneumovax (uncoded) local reaction redness Allergy Active Results Component Value Reference Range Notes Liver Panel Reviewed date:08/20/2024 03:17:01 PM Interpretation: Performing Lab:[facility], [address] [place] [phone] Notes/Report: Bilirubin Total 0.7 0.0-1.0 mg/dL Bilirubin Direct 0.3 0.0-0.5 mg/dL Aspartate Amino Transferase 42 5-37 U/L Alanine Aminotransferase 24 0-40 U/L Total Protein 7.3 6.5-8.0 g/dL Albumin Level 3.9 3.5-5.0 g/dL Alkaline Phosphatase 94 39-117 U/L Lipid Panel with Reflex Reviewed date:08/20/2024 03:16:31 PM Interpretation: Performing Lab:[facility], [address] [place] [phone] Notes/Report: Triglycerides 135 <150 mg/dL Desirable Triglyceride: [...] ff Reviewed date:02/21/2025 05:38:19 PM Interpretation: Performing Lab:[facility], [address] [place] [phone] Notes/Report: White Blood Count 10.0 4.8-10.8 X10*3/uL [...] NRBC Abs Auto 0.000 0.0-0.012 X10*3/uL Comprehensive [place]. Panel Fa st Reviewed date:02/21/2025 05:34:56 PM Interpretation: Performing Lab:[facility], [address] [place] [phone] Notes/Report: Sodium 143 135-145 mmol/L Potassium 3.8 [...] PROFILE Reviewed date:02/19/2025 12:44:54 PM Interpretation: Performing Lab:[address] [phone] Notes/Report: Iron 63 45-160 mcg/dL Total Iron Binding Capacity 271 228-428 mcg/dL Percent Iron Saturation 23 15-50 % Unsaturated Iron Binding 208 Lipid Panel Reviewed date:02/19/2025 12:44:14 PM Interpretation: Performing Lab:[facility], [address] [place] [address] Notes/Report: Triglycerides 129 <150 mg/dL Desirable Triglyceride: [...] (Free>4and<10) Reviewed date:02/19/2025 12:45:04 PM Interpretation: Performing Lab:[facility], [address] [place] [phone] Notes/Report: PSA,Total (Free>4and<10) < 0.10 0.00-4.00 ng/mL [...] t Reviewed date:02/21/2025 05:39:18 PM Interpretation: Performing Lab:[facility], [address] [place] [phone] Notes/Report: Urine, Clean Catch Color Urine Dark Yellow Appearance Urine Clear PH 6.5 5.0-9.0 Glucose Urine UA Negative Negative mg/dL Urine Blood Negative Negative Specific [place] - Urine 1.025 1.005-1.025 Urine Protein [...] POC Reviewed date:06/25/2024 11:32:23 AM Interpretation: Performing Lab:[facility], [address] [place] [phone] Notes/Report: PT, INR - [facility] 3.2 0.9-1.1 METER #: [id number] INTERNATIONAL NORMALIZED RATIO (INR) REFERENCE RANGES Reference [...] OC Reviewed date:06/25/2024 12:15:50 PM Interpretation: Performing Lab:[facility], [address] [place] [phone] Notes/Report: Prothrombin Time Whole Bld POC 38.6 11.1-13.5 sec INR WHOLE BLOOD POC Reviewed date:07/09/2024 11:05:08 AM Interpretation: Performing Lab:[facility], [address] [place] [phone] Notes/Report: PT, INR - [facility]ag Clinic 2.3 0.9-1.1 METER #: [id number] INTERNATIONAL NORMALIZED RATIO (INR) REFERENCE RANGES Reference [...] OC Reviewed date:07/09/2024 12:21:37 PM Interpretation: Performing Lab:[facility], [address] [place] [phone] Notes/Report: Prothrombin Time Whole Bld POC 27.5 11.1-13.5 sec INR WHOLE BLOOD POC Reviewed date:07/22/2024 02:12:43 PM Interpretation: Performing Lab:[facility], [address] [place] [phone] Notes/Report: PT, INR - [facility]ag Clinic 1.8 0.9-1.1 METER #: [id number] INTERNATIONAL NORMALIZED RATIO (INR) REFERENCE RANGES Reference [...] OC Reviewed date:07/22/2024 02:18:21 PM Interpretation: Performing Lab:[facility], [address] [place] [phone] Notes/Report: Prothrombin Time Whole Bld POC 21.8 11.1-13.5 sec INR WHOLE BLOOD POC Reviewed date:08/04/2024 12:06:47 PM Interpretation: Performing Lab:[facility], [address] [place] [phone] Notes/Report: PT, INR - Anti [facility]ag Clinic 2.2 0.9-1.1 METER #: [id number] INTERNATIONAL NORMALIZED RATIO (INR) REFERENCE RANGES Reference [...] OC Reviewed date:08/04/2024 12:04:48 PM Interpretation: Performing Lab:[facility], [address] [place] [phone] Notes/Report: Prothrombin Time Whole Bld POC 25.9 11.1-13.5 sec Kari Wallace Reviewed date:08/20/2024 12:43:27 PM Interpretation: Performing Lab:[facility], [address] [place] [phone] Notes/Report: Kari Wallace See Note Specimen held untested for 24 hours; Call to request Chemistry testing. INR WHOLE BLOOD POC Reviewed date:08/25/2024 07:57:52 PM Interpretation: Performing Lab:[facility], [address] [place] [phone] Notes/Report: PT, INR - Anti Coag Clinic 2.1 0.9-1.1 METER #: [id number] INTERNATIONAL NORMALIZED RATIO (INR) REFERENCE RANGES Reference [...] OC Reviewed date:08/25/2024 07:57:59 PM Interpretation: Performing Lab:[facility], [address] [place] [phone] Notes/Report: Prothrombin Time Whole Bld POC 25.6 11.1-13.5 sec INR WHOLE BLOOD POC Reviewed date:09/15/2024 09:59:14 AM Interpretation: Performing Lab:[facility], [address] [place] [phone] Notes/Report: PT, INR - Anti Coag Clinic 3.0 0.9-1.1 METER #: [id number] INTERNATIONAL NORMALIZED RATIO (INR) REFERENCE RANGES Reference [...] OC Reviewed date:09/15/2024 12:33:10 PM Interpretation: Performing Lab:[facility], [address] [place] [phone] Notes/Report: Prothrombin Time Whole Bld POC 35.5 11.1-13.5 sec INR WHOLE BLOOD POC Reviewed date:10/06/2024 04:22:44 PM Interpretation: Performing Lab:[facility], [address] [place] [phone] Notes/Report: PT, INR - Anti Coag Clinic 2.0 0.9-1.1 METER #: [id number] INTERNATIONAL NORMALIZED RATIO (INR) REFERENCE RANGES Reference [...] OC Reviewed date:10/06/2024 04:22:36 PM Interpretation: Performing Lab:[facility], [address] [place] [phone] Notes/Report: Prothrombin Time Whole Bld POC 23.5 11.1-13.5 sec Prostate Specific Antigen Reviewed date:10/09/2024 11:16:46 AM Interpretation: Performing Lab:[facility], [address] [place] [phone] Notes/Report: Prostate Specific Antigen < 0.10 <0.05-4.0 ng/mL PSA methodology: Robert Alinity i Chemiluminescent Microparticle Immunoassay (CMIA) INR WHOLE BLOOD POC Reviewed date:10/27/2024 11:14:11 AM Interpretation: Performing Lab:[facility], [address] [place] [phone] Notes/Report: PT, INR - Anti Coag Clinic 2.0 0.9-1.1 METER #: [id number] INTERNATIONAL NORMALIZED RATIO (INR) REFERENCE RANGES Reference [...] OC Reviewed date:10/27/2024 11:14:04 AM Interpretation: Performing Lab:[facility], [address] [place] [phone] Notes/Report: Prothrombin Time Whole Bld POC 23.7 11.1-13.5 sec INR WHOLE BLOOD POC Reviewed date:11/10/2024 12:18:48 PM Interpretation: Performing Lab:[facility], [address] [place] [phone] Notes/Report: PT, INR - Anti Coag Clinic 1.8 0.9-1.1 METER #: [id number] INTERNATIONAL NORMALIZED RATIO (INR) REFERENCE RANGES Reference [...] OC Reviewed date:11/10/2024 12:18:37 PM Interpretation: Performing Lab:[facility], [address] [place] [phone] Notes/Report: Prothrombin Time Whole Bld POC 21.5 11.1-13.5 sec INR WHOLE BLOOD POC Reviewed date:11/24/2024 12:04:29 PM Interpretation: Performing Lab:[facility], [address] [place] [phone] Notes/Report: PT, INR - Anti Coag Clinic 2.4 0.9-1.1 METER #: [id number] INTERNATIONAL NORMALIZED RATIO (INR) REFERENCE RANGES Reference [...] OC Reviewed date:11/24/2024 12:04:21 PM Interpretation: Performing Lab:[facility], [address] [place] [phone] Notes/Report: Prothrombin Time Whole Bld POC 28.2 11.1-13.5 sec INR WHOLE BLOOD POC Reviewed date:12/17/2024 12:38:14 PM Interpretation: Performing Lab:[facility], [address] [place] [phone] Notes/Report: PT, INR - Anti Coag Clinic 2.0 0.9-1.1 METER #: [id number] INTERNATIONAL NORMALIZED RATIO (INR) REFERENCE RANGES Reference [...] OC Reviewed date:12/17/2024 12:51:29 PM Interpretation: Performing Lab:[facility], [address] [place] [phone] Notes/Report: Prothrombin Time Whole Bld POC 23.9 11.1-13.5 sec INR WHOLE BLOOD POC Reviewed date:01/07/2025 10:59:51 AM Interpretation: Performing Lab:[facility], [address] [place] [phone] Notes/Report: PT, INR - Anti Coag Clinic 2.2 0.9-1.1 METER #: [id number] INTERNATIONAL NORMALIZED RATIO (INR) REFERENCE RANGES Reference [...] OC Reviewed date:01/07/2025 10:59:22 AM Interpretation: Performing Lab:[facility], [address] [place] [phone] Notes/Report: Prothrombin Time Whole Bld POC 26.4 11.1-13.5 sec INR WHOLE BLOOD POC Reviewed date:02/04/2025 02:25:43 PM Interpretation: Performing Lab:[facility], [address] [place] [phone] Notes/Report: PT, INR - Anti Coag Clinic 3.3 0.9-1.1 METER #: [id number] INTERNATIONAL NORMALIZED RATIO (INR) REFERENCE RANGES Reference [...] OC Reviewed date:02/04/2025 11:35:29 AM Interpretation: Performing Lab:[facility], [address] [place] [phone] Notes/Report: Prothrombin Time Whole Bld POC 39.1 11.1-13.5 sec INR WHOLE BLOOD POC Reviewed date:03/04/2025 10:01:13 AM Interpretation: Performing Lab:[facility], [address] [place] [address] Notes/Report: PT, INR - Anti Coag Clinic 2.6 0.9-1.1 METER #: [id number] INTERNATIONAL NORMALIZED RATIO (INR) REFERENCE RANGES Reference [...] OC Reviewed date:03/04/2025 10:01:06 AM Interpretation: Performing Lab:[facility], [address] [place] [phone] Notes/Report: Prothrombin Time Whole Bld POC 31.0 11.1-13.5 sec Complete Blood Count Auto Di ff Reviewed date:03/21/2025 07:34:37 PM Interpretation: Performing Lab:[facility], [address] [place] [phone] Notes/Report: White Blood Count 7.1 4.8-10.8 X10*3/uL [...] INR Reviewed date:03/21/2025 07:30:57 PM Interpretation: Performing Lab:[address] [phone] Notes/Report: Prothrombin Time 30.9 10.9-12.4 SEC INTERNATIONAL [...] Microscopic Reviewed date:03/21/2025 07:33:45 PM Interpretation: Performing Lab:[address] [phone] Notes/Report: Color Urine Yellow Appearance Urine Clear PH 6.5 5.0-9.0 Glucose Urine UA Negative Negative mg/dL Urine Blood Negative Negative Specific [place] - Urine >= 1.030 1.005-1.025 Urine [...] Panel Reviewed date:03/21/2025 07:33:21 PM Interpretation: Performing Lab:[facility], [address] [place] [phone] Notes/Report: Sodium 143 135-145 mmol/L Potassium 3.8 [...] Acid Reviewed date:03/21/2025 07:30:17 PM Interpretation: Performing Lab:[facility], [address] [place] [phone] Notes/Report: Lactic Acid 0.9 0.5-2.0 mmol/L Magnesium Reviewed date:03/21/2025 07:31:06 PM Interpretation: Performing Lab:[facility], [address] [place] [address] Notes/Report: Magnesium 1.9 1.6-2.6 mg/dL Troponin-I High Sensitivity Reviewed date:03/21/2025 07:30:47 PM Interpretation: Performing Lab:[facility], [address] [place] [phone] Notes/Report: Troponin-I High Sensitivity 29.0 <3.5-35.0 ng/L The Robert high sensitivity Troponin-I results should be used in conjunction with other diagnostic information such as ECG, clinical observations and information, and patient symptoms to aid in the diagnosis of NV. B Type Natriuretic Peptide Reviewed date:03/21/2025 07:31:15 PM Interpretation: Performing Lab:[facility], [address] [place] [address] Notes/Report: B Type Natriuretic Peptide 214 <100 pg/mL Gram stain Reviewed date:03/23/2025 10:18:58 AM Interpretation: Performing Lab:[facility], [address] [place] [phone] Notes/Report: Gram stain Gram stain results: Gram stain No polys Gram stain 2+ epithelial cells Gram stain 3+ Gram-positive cocci SARS-CoV2/FLU/RSV Reviewed date:03/21/2025 07:30:40 PM Interpretation: Performing Lab:[facility], [address] [place] [phone] Notes/Report: Influenza A PCR NEGATIVE Negative Influenza [...] by authorized laboratories. Testing performed on the [employer] GeneXpert utilizing real-time RT-PCR. All SARS CoV2 and positive influenza A/B results are reported to [facility]. Blood Culture (First) Reviewed date:03/26/2025 04:21:01 PM Interpretation: Performing Lab:[facility], [address] [place] [phone] Notes/Report: Blood Culture (First) No growth after 5 days. Blood Culture (Second) Reviewed date:03/26/2025 04:21:09 PM Interpretation: Performing Lab:[facility], [address] [place] [phone] Notes/Report: Blood Culture (Second) No growth after 5 days. Venous Blood Gases - POC Reviewed date:03/21/2025 07:30:11 PM Interpretation: Performing Lab:[facility], [address] [place] [phone] Notes/Report: VBG pH 7.54 7.32-7.43 METER #: [id number] additional_comment: Cb samantha VBG pCO2 56 METER #: [id number] additional_comment: Cb samantha VBG pO2 56 METER #: [id number] additional_comment: Sushant singh VBG Base Excess 22.3 METER #: [id number] additional_comment: Sushant singh VBG HCO3 48 22-26 mmol/L METER #: [id number] additional_comment: Sushant singh VBG O2 % Saturation 88.0 METER #: [id number] additional_comment: Sushant singh Routine Culture Reviewed date:03/23/2025 10:20:42 AM Interpretation: Performing Lab:[facility], [address] [place] [phone] Notes/Report: Routine Culture Report - external Routine Culture 4+ Mixed skin ricci CT soft tissue neck w con Reviewed date:03/21/2025 07:30:02 PM Interpretation: Performing Lab: Notes/Report: [address] [address] [address] Scan Report Signed Patient: Kalyan Nguyen MR#: [id number] 2742 : 1940 Acct:[id number] Age/Sex: 84 / M ADM Date: 03/20/25 Loc: [place] [address]: Zoraida Donovan MD Ordering Physician: Nilsa Card Date of Service: 03/20/25 Procedure(s): CT soft tissue neck w IV con Accession Number(s): [id number] cc: Nilsa Card; Jake Pepper MD Report Number: [id number]: Total DLP = 599.99 mGy-cm CLINICAL HISTORY: [...] in OV> 03/20/252104 DD/ 03 TD/TT: 03/20/252103 Pad Machine Operator: [place] [address] [address] Scan Report Signed Patient: Miguel Nguyen MR#: [id number] 2742 : 1940 Acct:[id number] Age/Sex: 84 / M ADM Date: 03/20/25 Loc: [place] [address]: Zoraida Donovan MD Ordering Physician: Nilsa Card Date of Service: 03/20/25 Procedure(s): CT sof t tissue neck w IV con Accession Number(s): [id number] cc: Nilsa CardSTALIN; Jake Pepper MD Report Number: [id number]: Total DLP = 599.99 mGy-cm CLINICAL HISTORY: [...] in OV> 03/20/252104 DD/ 03 TD/TT: 03/20/252103 Pad Machine Operator: CT head/brain wo con Reviewed date:03/21/2025 07:29:22 PM Interpretation: Performing Lab: Notes/Report: [address] [address] [address] Scan Report Signed Patient: Kalyan Nguyen MR#: [id number] 2742 : 1940 Acct:[id number] Age/Sex: 84 / M ADM Date: 03/20/25 Loc: [facility]- Attending Dr: Zoraida Donovan MD Ordering Physician: Nilsa Card Date of Service: 03/20/25 Procedure(s): CT head/brain wo IV con Accession Number(s): [id number] cc: Nilsa Card; Jake Pepper MD Report Number: [id number]: Total DLP = 914.64 mGy-cm CLINICAL HISTORY: [...] in OV> 03/20/252105 DD/ 04 TD/TT: 03/20/252104 Pad Machine Operator: [place] [address] CT Scan Report Signed Patient: Miguel Nguyen MR#: [id number] 2742 : 1940 Acct:[id number] Age/Sex: 84 / M ADM Date: 03/20/25 Loc: [place] [address]: Zoraida Donovan MD Ordering Physician: Nilsa Card Date of Service: 03/20/25 Procedure(s): CT head/brain wo IV con Accession Number(s): [id number] cc: Nilsa Card; Jake Pepper MD Report Number: [id number]: Total DLP = 914.64 mGy-cm CLINICAL HISTORY: [...] in OV> 03/20/252105 DD/ 04 TD/TT: 03/20/252104 Pad Machine Operator: XR chest 2V Reviewed date:03/21/2025 07:32:02 PM Interpretation: Performing Lab: Notes/Report: [address] [address] XRay Report Signed Patient: Kalyan Nguyen MR#: [id number] 2742 : 1940 Acct:[id number] Age/Sex: 84 / M ADM Date: 03/20/25 Loc: [facility] Attending Dr: Ordering Physician: Lisette Graves NP Date of Service: 03/20/25 Procedure(s): XR chest 2V Accession Number(s): [id number] cc: Jake Pepper MD; Lisette Graves NP [...] in OV> 03/20/251727 DD/ 26 TD/TT: 03/20/251726 Pad Machine Operator: [address] [address] XRay Report Signed Patient: Miguel Nguyen MR#: [id number] 2742 : 1940 Acct:[id number] Age/Sex: 84 / M ADM Date: 03/20/25 Loc: [facility] Attending Dr: Ordering Physician: Lisette Graves NP Date of Service: 03/20/25 Procedure(s): XR [address] 2V Accession Number(s): [id number] cc: Jake Pepper MD; Lisette Graves NP [...] in OV> 03/20/251727 DD/ 26 TD/TT: 03/20/251726 Pad Machine Operator: Troponin-I High Sensitivity Reviewed date:03/21/2025 07:31:34 PM Interpretation: Performing Lab:[facility], [address] [place] [phone] Notes/Report: Troponin-I High Sensitivity 24.4 <3.5-35.0 ng/L The Robert high sensitivity Troponin-I results should be used in conjunction with other diagnostic information such as ECG, clinical observations and information, and patient symptoms to aid in the diagnosis of [place]. Complete Blood Count Auto Di ff Reviewed date:03/21/2025 07:34:16 PM Interpretation: Performing Lab:[facility], [address] [place] [phone] Notes/Report: White Blood Count 6.6 4.8-10.8 X10*3/uL [...] INR Reviewed date:03/21/2025 07:32:30 PM Interpretation: Performing Lab:[address] [address] Notes/Report: Prothrombin Time 41.4 10.9-12.4 SEC INTERNATIONAL [...] Panel Reviewed date:03/21/2025 07:32:58 PM Interpretation: Performing Lab:[address] [address] Notes/Report: Sodium 142 135-145 mmol/L Potassium 3.4 [...] T4 Reviewed date:03/21/2025 07:31:25 PM Interpretation: Performing Lab:[facility], [address] [place] [phone] Notes/Report: TSH reflex Free T4 1.34 0.32-4.0 uIU/mL Respiratory Panel Reviewed date:03/21/2025 07:28:57 PM Interpretation: Performing Lab:[facility], [address] [place] [address] Notes/Report: Adenovirus PCR Not Detected Not Detect. [...] testing should be considered. Results reported to [facility]. This test has been authorized by [...] is performed by Multiplexed PCR, utilizing the [employer] Array. Prothrombin Time INR Reviewed date:03/22/2025 11:40:38 AM Interpretation: Performing Lab:[facility], [address] [place] [phone] Notes/Report: Prothrombin Time 55.7 10.9-12.4 SEC INTERNATIONAL [...] Panel Reviewed date:03/22/2025 12:35:51 PM Interpretation: Performing Lab:[address] [address] Notes/Report: Sodium 138 135-145 mmol/L Potassium 4.1 [...] Random Reviewed date:03/22/2025 04:33:37 PM Interpretation: Performing Lab:[address] [address] Notes/Report: Vancomycin Random 13.0 15-20 mcg/mL Prothrombin Time INR Reviewed date:03/23/2025 10:14:22 AM Interpretation: Performing Lab:[address] [address] Notes/Report: Prothrombin Time 49.6 10.9-12.4 SEC INTERNATIONAL [...] Creatinine Reviewed date:03/23/2025 10:14:33 AM Interpretation: Performing Lab:[address] [address] Notes/Report: Creatinine 0.99 0.5-1.4 mg/dL Creatinine Clr [...] POC Reviewed date:04/01/2025 02:15:11 PM Interpretation: Performing Lab:[address] [address] Notes/Report: PT, INR - Anti Coag Clinic 5.4 0.9-1.1 METER #: [id number] Asymptomatic Cleaned Meter Doctor Notified INTERNATIONAL NORMALIZED [...] OC Reviewed date:04/01/2025 02:14:25 PM Interpretation: Performing Lab:[address] [address] Notes/Report: Prothrombin Time Whole Bld POC 65.0 11.1-13.5 sec INR WHOLE BLOOD POC Reviewed date:04/05/2025 01:00:12 PM Interpretation: Performing Lab:[address] [place] [address] Notes/Report: PT, INR - Anti Coag Clinic 4.7 0.9-1.1 METER #: [id number] INTERNATIONAL NORMALIZED RATIO (INR) REFERENCE RANGES Reference [...] OC Reviewed date:04/05/2025 01:00:04 PM Interpretation: Performing Lab:[facility], [address] [place] [address] Notes/Report: Prothrombin Time Whole Bld POC 55.9 11.1-13.5 sec INR WHOLE BLOOD POC Reviewed date:04/12/2025 12:38:27 PM Interpretation: Performing Lab:[facility], [address] [place] [phone] Notes/Report: PT, INR - Anti Coag Clinic 4.1 0.9-1.1 METER #: [id number] INTERNATIONAL NORMALIZED RATIO (INR) REFERENCE RANGES Reference [...] OC Reviewed date:04/12/2025 12:38:37 PM Interpretation: Performing Lab:[facility], [address] [place] [address] Notes/Report: Prothrombin Time Whole Bld POC 49.7 11.1-13.5 sec INR WHOLE BLOOD POC Reviewed date:04/15/2025 04:00:41 PM Interpretation: Performing Lab:[address] [address] Notes/Report: PT, INR - Anti Coag Clinic 4.2 0.9-1.1 METER #: [id number] INTERNATIONAL NORMALIZED RATIO (INR) REFERENCE RANGES Reference [...] OC Reviewed date:04/15/2025 04:00:48 PM Interpretation: Performing Lab:[facility], [address] [place] [address] Notes/Report: Prothrombin Time Whole Bld POC 50.7 11.1-13.5 sec INR WHOLE BLOOD POC Reviewed date:04/19/2025 01:36:50 PM Interpretation: Performing Lab:[facility], [address] [place] [address] Notes/Report: PT, INR - Anti Coag Clinic 2.7 0.9-1.1 METER #: [id number] INTERNATIONAL NORMALIZED RATIO (INR) REFERENCE RANGES Reference [...] OC Reviewed date:04/19/2025 01:36:41 PM Interpretation: Performing Lab:[facility], [address] [place] [address] Notes/Report: Prothrombin Time Whole Bld POC 31.9 11.1-13.5 sec INR WHOLE BLOOD POC Reviewed date:04/27/2025 12:19:28 PM Interpretation: Performing Lab:[facility], [address] [place] [address] Notes/Report: PT, INR - Anti Coag Clinic 2.4 0.9-1.1 METER #: [id number] INTERNATIONAL NORMALIZED RATIO (INR) REFERENCE RANGES Reference [...] OC Reviewed date:04/27/2025 12:19:14 PM Interpretation: Performing Lab:[facility], [address] [place] [address] Notes/Report: Prothrombin Time Whole Bld POC 29.1 11.1-13.5 sec INR WHOLE BLOOD POC Reviewed date:05/11/2025 02:35:09 PM Interpretation: Performing Lab:[facility], [address] [place] [phone] Notes/Report: PT, INR - [facility] 1.4 0.9-1.1 METER #: [id number] Asymptomatic Doctor Notified INTERNATIONAL NORMALIZED RATIO (INR) [...] OC Reviewed date:05/11/2025 02:31:58 PM Interpretation: Performing Lab:[facility], [address] [place] [phone] Notes/Report: Prothrombin Time Whole Bld POC 16.7 11.1-13.5 sec INR WHOLE BLOOD POC Reviewed date:05/14/2025 04:20:53 PM Interpretation: Performing Lab:[facility], [address] [place] [phone] Notes/Report: PT, INR - [facility] 1.6 0.9-1.1 METER #: [id number] INTERNATIONAL NORMALIZED RATIO (INR) REFERENCE RANGES Reference [...] OC Reviewed date:05/14/2025 04:28:14 PM Interpretation: Performing Lab:[facility], [address] [place] [phone] Notes/Report: Prothrombin Time Whole Bld POC 19.6 11.1-13.5 sec INR WHOLE BLOOD POC Reviewed date:05/20/2025 12:36:55 PM Interpretation: Performing Lab:[facility], [address] [place] [phone] Notes/Report: PT, INR - [facility] 1.6 0.9-1.1 METER #: [id number] INTERNATIONAL NORMALIZED RATIO (INR) REFERENCE RANGES Reference [...] OC Reviewed date:05/20/2025 12:36:42 PM Interpretation: Performing Lab:[facility], [address] [place] [phone] Notes/Report: Prothrombin Time Whole Bld POC 19.8 11.1-13.5 sec INR WHOLE BLOOD POC Reviewed date:05/27/2025 12:31:20 PM Interpretation: Performing Lab:[address] [phone] Notes/Report: PT, INR - [facility] 1.8 0.9-1.1 METER #: [id number] INTERNATIONAL NORMALIZED RATIO (INR) REFERENCE RANGES Reference [...] OC Reviewed date:05/27/2025 12:31:13 PM Interpretation: Performing Lab:[facility], [address] [place] [phone] Notes/Report: Prothrombin Time Whole Bld POC 21.4 11.1-13.5 sec Prostate Specific Antigen Reviewed date:06/03/2025 05:00:17 PM Interpretation: Performing Lab:[facility], [address] [place] [phone] Notes/Report: Prostate Specific Antigen < 0.10 <0.05-4.0 ng/mL PSA methodology: [employer] Chemiluminescent Microparticle Immunoassay (CMIA) INR WHOLE BLOOD POC Reviewed date:06/04/2025 05:07:03 PM Interpretation: Performing Lab:[facility], [address] [place] [phone] Notes/Report: PT, INR - [facility] 2.1 0.9-1.1 METER #: [id number] INTERNATIONAL NORMALIZED RATIO (INR) REFERENCE RANGES Reference [...] OC Reviewed date:06/04/2025 06:43:58 PM Interpretation: Performing Lab:[address] [phone] Notes/Report: Prothrombin Time Whole Bld POC 25.7 11.1-13.5 sec INR WHOLE BLOOD POC Reviewed date:06/11/2025 12:45:15 PM Interpretation: Performing Lab:[facility], [address] [place] [phone] Notes/Report: PT, INR - [facility] 1.9 0.9-1.1 METER #: [id number] INTERNATIONAL NORMALIZED RATIO (INR) REFERENCE RANGES Reference [...] OC Reviewed date:06/11/2025 12:45:05 PM Interpretation: Performing Lab:[address] [phone] Notes/Report: Prothrombin Time Whole Bld POC 23.2 11.1-13.5 sec INR WHOLE BLOOD POC (Not yet reviewed by provider) Interpretation: Performing Lab:[facility], [address] [place] [phone] Notes/Report: PT, INR - [facility] 2.8 0.9-1.1 METER #: [id number] INTERNATIONAL NORMALIZED RATIO (INR) REFERENCE RANGES Reference [...] (Not yet reviewed by provider) Interpretation: Performing Lab:[facility], [address] [place] [phone] Notes/Report: Prothrombin Time Whole Bld POC 33.9 11.1-13.5 sec Reason For Referral Reason please verito nguyen for for [facility] and any other services he made need Diagnosis 1 Atrial fibrillation, unspecified type (I48.91) Diagnosis 2 COPD without exacerb ation (J44.9) Diagnosis 3 Bilateral leg weakne ss (R29.898) Referral Organization Jake Pepper MD Referring Provider First Name Jake Referring Provider Last Name Evgeny Referring Provider Speciality Internal M edicine Referred Provider [facility] Referred Provider Specialty Unknown General Notes Minerva Duff 0 04/12/2025 11:55:29 AM > referral info faxed, Minerva Duff 04/12/2025 01:22:33 PM >this referral will not be used due to they do not take his insurance. Spoke with [facility], she will be working on [...] hrs for 30 days 01/26/2013 Not-Taking Nystatin 554030 UNIT/GM 1 application Externally Twice a day [...] Orally On ce a day Not-Taking Nystatin 402267 UNIT/GM 1 application Externally Twice a day for 10 days 03/19/2025 Active Gabapentin 300 MG 1 capsule Orally twi ce a day for 30 days 04/05/2025 Active Zolpidem Tartrate 5 MG TAKE 1 TABLET BY MOUTH DAILY AT BEDTIME Orally Once a day for 30 days 06/10/2025 Active Doxycycline Monohydrate 100 MG 1 capsule Orally Once a day Not-Taking Nystatin-Triamcinolone 703281-3.1 UNIT/GM 1 application Externally Twice a day [...] red Fluarix Quadrivalent Unknown 08/05/2018 Administered At [facility] Influenza High Dose IM Intramuscular [...] Problem Status W/U Status Risk Notes Problem 24093320 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 Problem Insomnia (645922155) Insomnia (G47.00) Active confirmed Problem 1500092 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) Active confirmed Problem Cataract (114769608) Unspecified cataract (H26.9) Active confirmed Problem Conductive hearing loss, bilateral (860154244) Conductive hearing loss, 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) Active confirmed Problem 4164117 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) Active confirmed Problem 24193614 Essential hypert ension (I10) Active confirmed Problem 916665111 Prostate cancer (C61) Active confirme d Problem 1557046 Psoriasis (L40.9) Active confirmed Problem 428030406 Lung nodule (R91.1) Active confirmed Problem Low testosterone (894575161) Low testosterone (E29.1) Active confirmed Problem 0367558716047455 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 Problem 460548728 Lung nodules (R91.8) Active confirmed Problem 308738237 Cervical disc di sease (M50.90) Active confirmed Problem 069733789 Tension headache (G44.209) Active confirmed Problem 4012530 Former smoker (Z87.891) Active confirmed Problem Acute exacerbation of chronic obstructive airways disease (436470413) COPD exacerbation (J44.1) Active confirmed Problem Postherpetic neuralgia (8150386) Post herpetic neuralgia (B02.29) Active confirmed Problem 17620403 Dysthymia (F34.1) Active confirmed Problem Iron deficiency anemia (68037277) Iron deficiency anemia, unspecified iron deficiency anemia type (D50.9) Active confirmed Problem 51784932 Atrial fibrillat ion, unspecified type (I48.91) Active confirmed Problem 3447719 Urinary obstruct ion (N13.9) Active confirmed Problem Leukocytosis (350760965) Elevated WBC count (D72.829) Active confirmed Problem 92877955 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 confirmed Problem 898691170 Pure hypercholesterolemia (E78.00) Active confirmed Problem 616698455 BMI 30.0-30.9,ad ult (Z68.30) Active confirmed Problem 279721295 COPD with exacer bation (J44.1) Active confirmed Problem 100700639 Hypertensive cri sis (I16.9) Active confirmed Problem Gout (93991854) Acute gout, unspecified cause, unspecified site (M10.9) Active confirmed Problem 59509107 COPD without exacerbation (J44.9) Active confirmed Problem Gout (83806685) Acute gout of ri ght knee, unspecified cause (M10.9) Active confirmed Problem 441960136 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 Vital Signs Blood pressure diastolic 66 mm Hg 04/20/2025 Height 65 in 04/20/2025 Blood pressure systolic 110 mm Hg 04/20/2025 Weight 167 lbs 04/05/2025 weight is down 2 pounds since 6-23-25 BMI 27.79 kg/m2 04/05/2025 weight is down 2 pounds since 03-29-25 Encounters Encounter Location Date Provider Diagnosis Jake Pepper MD [address] [place] [address] [id number] 08/20/2024 Jake Pepper Pure hypercholestero lemia E78.00 Jake Pepper MD [address] [place] [address] [id number] 02/19/2025 Jake Pepper Blood tests for rout ine general physical examination Z00.00 ; Essential hypertension I10 ; Pure hypercholesterolemia E78.00 and Iron deficiency anemia, unspecified iron deficiency anemia type D50.9 Jake Pepper MD [address] [place] [address] [id number] 07/07/2024 Jake Pepper Tension headache G44 .209 Jake Pepper MD [address] [place] [address] [id number] 08/27/2024 Jake Pepper Essential hypertensi on I10 ; Pure hypercholesterolemia E78.00 ; Atrial fibrillation, unspecified type I48.91 and COPD without exacerbation J44.9 Jake Pepper MD [address] [place] [address] [id number] 01/22/2025 Jake Pepper Panlobular emphysema J43.1 ; Atrial fibrillation, unspecified type I48.91 and Unspecified cataract H26.9 Jake Pepper MD [address] [place] [address] [id number] 02/26/2025 Jake Pepper Essential hypertensi on I10 ; Annual physical exam Z00.00 ; Panlobular emphysema J43.1 ; Pure hypercholesterolemia E78.00 ; Dysthymia F34.1 ; Iron deficiency anemia, unspecified iron deficiency anemia type D50.9 and Depression screening Z13.31 Jake Pepper MD [address] [place] [address] [id number] 03/18/2025 Jake Pepper Thrush B37.0 Jake Pepper MD [address] [place] [address] [id number] 03/29/2025 Jake Pepper Essential hypertensi on I10 ; Panlobular emphysema J43.1 ; Shingles B02.9 and Thrush B37.0 Jake Pepper MD [address] [place] [address] [id number] 04/05/2025 Jake Pepper Post herpetic neural dung B02.29 ; Skin tear of right forearm without complication, initial encounter S51.801A ; Essential hypertension I10 and Atrial fibrillation, unspecified type I48.91 Jake Pepper MD [address] [place] [address] [id number] 04/20/2025 Jake Pepper Post herpetic neural dung B02.29 ; Skin tear of right forearm without complication, initial encounter S51.801A and Atrial fibrillation, unspecified type I48.91 Jake Pepper MD [address] [place] [address] [id number] 12/21/2024 Jake Pepper MD [address] [place] [address] [id number] 02/19/2025 Jake Pepper MD [address] [place] [address] [id number] 03/19/2025 Jake Pepper MD [address] [place] [address] [id number] 03/26/2025 Jake Pepper MD [address] [place] [address] [id number] 04/01/2025 Jake Pepper MD [address] [place] [address] [id number] 04/13/2025 Jake Pepper MD [address] [place] [address] [id number] 05/07/2025 Jake Pepper MD [address] [place] [address] [id number] 05/11/2025 Jake Pepper MD [address] [place] [address] [id number] 07/07/2024 Jake Pepper Insomnia G47.00 Jake Pepper MD [address] [place] [address] [id number] 08/06/2024 Jake Pepper Insomnia G47.00 Jake Pepper MD [address] [place] [address] [id number] 09/02/2024 Jake Bombardier Insomnia G47.00 Jake Pepper MD [address] [place] [address] [id number] 10/05/2024 Jake Bombardier Insomnia G47.00 Jake Pepper MD [address] [place] [address] [id number] 11/08/2024 Jake Bombardier Insomnia G47.00 Jake Pepper MD [address] [place] [address] [id number] 12/07/2024 Jakebernabe Velaardier Insomnia G47.00 Jake Pepper MD [address] [place] [address] [id number] 01/06/2025 Jake Velaardier Insomnia G47.00 Jake Pepper MD [address] [place] [address] [id number] 02/05/2025 Jake Velaardier Insomnia G47.00 Jake Pepper MD [address] [place] [address] [id number] 02/10/2025 Jake Pepper MD [address] [place] [address] [id number] 02/12/2025 Jake Pepper MD [address] [place] [address] [id number] 03/08/2025 Jake Velaardier Insomnia G47.00 Jake Pepper MD [address] [place] [address] [id number] 06/09/2025 Jake Velaardier Insomnia G47.00 Jake Pepper MD [address] [place] [address] [id number] 06/10/2025 Jake Pepper Post herpetic neural dung [...] 10/15/2022 Folate 02/09/2021 INR WHOLE BLOOD POC 06/18/2025 Prothrombin Time Whole Bld POC Future Test Test Name Order Date CT chest wo con 02/04/2023 Next Appt Details Provider Name:Jake Miranda Paul ier, 08/19/2025 07:00:00 AM, [address] [place] [address], [address] [place] [address], [id number], Provider Name:Jake Miranda Paul ier, 08/26/2025 10:00:00 AM, [address] [place] [address], Suite [facility], [place], [place], [id number], Provider Name:Jake Miranda Paul ier, 02/24/2026 07:15:00 AM, [address] [place] [address], Suite [facility], [place], [place], [id number], Provider Name:Jake Miller ier, 03/03/2026 09:30:00 AM, [address] [place] [address], Suite [facility], [place], [place], [id number], Insurance Providers Payer Name Payer Address Payer Phone Subscriber Number Group Number Insured Name Patient Relationship to Insured Coverage Start Date Coverage End Date [employer] [facility] [address] [place] [phone] [id number] WendyKalyan Self - patient is the insured MEDICARE [address] [place] [address] [id number] WendyKalyan Self - patient is the insured Medical (General) History Medical History History ICD Code 03/2004 - colonoscopy (repea t 10 years); colonoscopy [address] Rajput Smoker unmotivated to quit F17.210 biculatimide and finasteraide for prosta te cancer Surgical History Surgery Date(Month/Year) Repair of Umbilical Hernia w/Mesh (Dr. Darrell guido) 04/2019
--- OUTSIDE RECORDS SUMMARY | 2025-06-18 10:35 | XMS_ITS | Patient Health Record ---
Author Organization [facility] Address [address] [place] [address] Care Team Providers Care Cashier Supervisor Name Role Phone Jake Pepper MD Primary Care Provider Luther Rajput Jr [facility] Allergies Allergen (clinical drug ingredient) Drug/Non Drug [...] Problem Status W/U Status Risk Notes Problem 520358348 Colon cancer screening (V76.51) Active confirmed Problem 312541097 Aspirin long-term use (V58.66) Active confirmed Plan Of Treatment Future Test Test Name Order Date COLONOSCOPY 07/29/2014 Insurance Providers Payer Name Payer Address Payer Phone Subscriber Number Group Number Insured Name Patient Relationship to Insured Coverage Start Date Coverage End Date [facility] [address] [place] [phone] [id number] CORNELIA JUAREZ Self - patient is the insured Medicare of [place] [employer] [address] [place] [address] [id number] CORNELIA JUAREZ Self - patient is the insured Medical (General) History Medical History History ICD Code prostate problems hypertension elevated cholesterol Surgical History Surgery Date(Month/Year) back surgery knee surgery
== END 2025-06-18 10:01 | disposition home or self-care (01) ==
LOC: HO.ACS 09:27
PROVIDERS: PCP Internal Medicine; Visit Provider Internal Medicine Medical Oncology
DX: Z79.01 Long term (current) use of anticoagulants (principal)

== ENCOUNTER → 2025-06-18 09:27 | Outpatient (BNVA) | payer MEDICARE, SELFPAY | PROVIDERS: PCP Internal Medicine; Visit Provider Internal Medicine Medical Oncology | DX: I48.0 Paroxysmal atrial fibrillation (principal); Z79.01 Long term (current) use of anticoagulants; Z51.81 Encounter for therapeutic drug level monitoring | CPT/HCPCS: 85610; 99211 ==

== ENCOUNTER 2025-06-21 09:19 | Outpatient (AMB) | payer MEDICARE, SELFPAY ==
--- OUTSIDE RECORDS SUMMARY | 2025-04-20 06:00 | XMS_ITS ---
Author Organization Jake Pepper MD Address [address] [place], [place] [phone] Care Team Providers Care Auto Clutch Rebuilder Name Role Phone Jake Pepper Primary Care [...] CAPSULE BY MOUTH TWICE DAILY Active Nystatin 530389 UNIT/GM 1 application Externally Twice a day for 30 days 05/29/2022 Active Nystatin 774259 UNIT/GM 1 application Externally Twice a day [...] 14 DAYS Oral for 14 Not-Taking Nystatin-Triamcinolone 352470-1.1 UNIT/GM 1 application Externally Twice a day [...] Location Date Provider Diagnosis Jake Pepper MD [address] [place] [address] [place] [phone] 04/20/2025 Jake Pepper Post herpetic neuralgia B02.29 [...] Reason: Provider Name:Jake schmidt, 08/19/2025 07:00:00 AM, [address] [place] [address], [address] [place] [address], [phone], Provider Name:Jake schmidt, 08/26/2025 10:00:00 AM, [address] [place] [address], [address] [place] [address], [phone], Provider Name:Jake schmidt, 02/24/2026 07:15:00 AM, [address] [place] [address], [address], [phone], Provider Name:Jake Miller ier, 03/03/2026 09:30:00 AM, [address], [address], [place], [place], [phone], Progress Notes * Kalyan JUAREZ RDOB: [birth year] (84 yo M)Acc No.[id number]:04/20/2025 Progress Notes Patient: Kalyan KENNEDY Provider: Aly Pepper MD :1940 A ge:84 Y S ex:Male Date:04/20/2025 Address:[address] [place], [place] [address]Mitesh [place], [id number] Subjective: * Chief Complaints: * 2 WEEK [...] 1 tablet Orally Once a day Nystatin 479998 UNIT/GM Ointment 1 application Externally Twice a day Tamsulosin HCl 0.4 MG Capsule TAKE 1 CAPSULE BY MOUTH TWICE DAILY Atorvastatin Calcium 40 MG Tablet 1 tablet Orally Once a day Zolpidem Tartrate 5 MG Tablet TAKE 1 TABLET BY MOUTH DAILY AT BEDTIME Orally Once a day Nystatin 366413 UNIT/GM Cream 1 application Externally Twice a [...] tablet Orally Once a day Taking Nystatin 426211 UNIT/GM Ointment 1 application Externally Twice a day Taking Tamsulosin HCl 0.4 MG Capsule TAKE 1 CAPSULE BY MOUTH TWICE DAILY Taking Atorvastatin Calcium 40 MG Tablet 1 tablet Orally Once a day Taking Zolpidem Tartrate 5 MG Tablet TAKE 1 TABLET BY MOUTH DAILY AT BEDTIME Orally Once a day Taking Nystatin 464292 UNIT/GM Cream 1 application Externally Twice a [...] 1 puff Inhalation Twice a day Nystatin-Triamcinolone 835819-0.1 UNIT/GM Cream 1 application Externally Twice a [...] puff Inhalation Twice a day Not-Taking/PRN Nystatin-Triamcinolone 959702-0.1 UNIT/GM Cream 1 application Externally Twice a [...] true * Provider: Aly Pepper MD Date: 04/20/2025 Generated for Mabel trotter/Ashish/Franciscoitting on: 0 06/21/2025 11:02 AM EDT History and Physical Notes * [...]
--- OUTSIDE RECORDS SUMMARY | 2025-05-07 06:44 | XMS_ITS ---
Author Organization Jake Pepper MD Address [address] [place], [place] [phone] Care Team Providers Care Pipeline Maintenance Supervisor Name Role Phone Jake Pepper Primary Care Provider REASON FOR VISIT RE GABAPENTIN Encounters Encounter Location Date Provider Diagnosis Jake Pepper MD [address] [place], [place] [phone] 05/07/2025 Jake Pepper Plan Of Treatment Next Appt Details Provider Name:Jake schmidt, 08/19/2025 07:00:00 AM, [address] [place] [address], [address] [place] [address], [phone], Provider Name:Jake schmidt, 08/26/2025 10:00:00 AM, [address], [address], [place], [phone], Provider Name:Jake Miller kenyar, 02/24/2026 07:15:00 AM, [address], [address], [place], [place], [phone], Provider Name:Jake Miller kenyar, 03/03/2026 09:30:00 AM, [address] [facility], [address], [place], [place], [phone], Progress Notes * Kalyan JUAREZ RDOB: [birth year] (84 yo M)Acc No.[id number]:05/07/2025 Patient: Carmen VIRAMONTESKalyan :1940 A ge:84 Y S ex:Male Address:[address] [place] [phone] * true * Date: Generated for Mabel trotter/Ashish/Erikasmitting on: 0 06/21/2025 11:02 AM EDT
--- OUTSIDE RECORDS SUMMARY | 2025-05-11 06:57 | XMS_ITS ---
Author Organization Jake Pepper MD Address [address] [place], [place] [phone] Care Team Providers Care National Opelint Analyst Name Role Phone Jake Pepper Primary Care Provider REASON FOR VISIT INR of 1.4 Encounters Encounter Location Date Provider Diagnosis Jake Pepper MD [address] [place], [place] [phone] 05/11/2025 Jake Pepper Plan Of Treatment Next Appt Details Provider Name:Jake schmidt, 08/19/2025 07:00:00 AM, 10 [facility], Suite [facility], [place], [place], [phone], Provider Name:Jake schmidt, 08/26/2025 10:00:00 AM, [address], [address], [place], [phone], Provider Name:Jake Miller roxana, 02/24/2026 07:15:00 AM, [address] [facility] [address], [address], [place], [phone], Provider Name:Jake Miller roxana, 03/03/2026 09:30:00 AM, [address] [facility] [address] [facility], [address], [place], [phone], Progress Notes * Kalyan JUAREZ RDOB: [birth year] (84 yo M)Acc No.[id number]:05/11/2025 Patient: Carmen VIRAMONTESKalyan :1940 A ge:84 Y S ex:Male Address:[address] [place] [address] [place] [address] * true * Date: Generated for Mabel trotter/Ashish/eTmartinsmitting on: 0 06/21/2025 11:02 AM EDT
--- OUTSIDE RECORDS SUMMARY | 2025-06-09 05:00 | XMS_ITS ---
Author Organization Jake Pepper MD Address [address] [place] [phone] Care Team Providers Care Director Of Bands Name Role Phone Jake Pepper Primary Care Provider REASON FOR VISIT New Refill Request Medications Medication SIG (Take, Route, Fr equency, Duration) Notes Start Date End Date Status Zolpidem Tartrate 5 MG TAKE 1 TABLET BY MOUTH DAILY AT BEDTIME Orally Once a day for 30 days 06/10/2025 Active Encounters Encounter Location Date Provider Diagnosis Jake Pepper MD [address] [place] [phone] 06/09/2025 Jake Pepper Insomnia G47.00 Assessments Encounter [...] Provider Name:Jake Miller ier, 08/19/2025 07:00:00 AM, [address] [place] [address], Suite [facility], [place], [place], [phone], Provider Name:Jake Miller ier, 08/26/2025 10:00:00 AM, [address] [place] [address], [place] [address], [place], [place], [phone], Provider Name:Jake Miller ier, 02/24/2026 07:15:00 AM, [address] [place] [address], [place] [address], [place], [place], [phone], Provider Name:Jake Miller kenyar, 03/03/2026 09:30:00 AM, [address] [place] [address], [place] [address], [place], [place], [phone], Progress Notes * Kalyan JUAREZ RDOB: [birth year] (84 yo M)Acc No.[id number]:06/09/2025 Patient: Carmen VIRAMONTESKalyan :1940 A ge:84 Y S ex:Male Address:[address] [place] [phone] * Refills Refill Zolpidem Tartrate Tablet, 5 MG, Orally, 30, TAKE 1 TABLET BY MOUTH DAILY AT BEDTIME, Once a day, 30 days, Refills=0 * true * Date: Generated for Mabel trotter/Ashish/Franciscoitting on: 0 06/21/2025 11:02 AM EDT
--- OUTSIDE RECORDS SUMMARY | 2025-06-10 10:00 | XMS_ITS ---
Author Organization Jake Pepper MD Address [address] [place] [phone] Care Team Providers Care Hydroelectric Plant Structural Engineer Name Role Phone Jake Pepper Primary Care Provider REASON FOR VISIT New Refill Request Medications Medication SIG (Take, Route, Fr equency, Duration) Notes Start Date End Date Status Gabapentin 300 MG 1 capsule Orally twi ce a day for 30 days 04/05/2025 Active Encounters Encounter Location Date Provider Diagnosis Jake Pepper MD [address] [place] [phone] 06/10/2025 Jake Pepper Post herpetic neuralgia B02.29 [...] Provider Name:Jake Miller ier, 08/19/2025 07:00:00 AM, [address] [place] [address], Suite [facility], [place], [place], [phone], Provider Name:Jake Miller ier, 08/26/2025 10:00:00 AM, [address] [place] [address], Suite [facility], [place], [place], [phone], Provider Name:Jake Miller ier, 02/24/2026 07:15:00 AM, [address] [place] [address], Suite [facility], [place], [place], [phone], Provider Name:Jake Miller ier, 03/03/2026 09:30:00 AM, [address] [place] [address], [address] [place] [address], [phone], Progress Notes * Kalyan JUAREZ RDOB: [birth year] (84 yo M)Acc No.[id number]:06/10/2025 Patient: Carmen NELLSEANKalyan :1940 A ge:84 Y S ex:Male Address:[address] [place] [phone] * Refills Refill Gabapentin Capsule, 300 MG, Orally, 60 Capsule, 1 capsule, twice a day, 30 days * true * Date: Generated for Mabel trotter/Ashish/eTransmitting on: 0 06/21/2025 11:03 AM EDT
--- NOTE | 2025-06-21 09:32 | A.OFFVIS_ITS ---
Vital Signs 06/21/25 09:33 Height 5 ft 7 in Weight 167 lb 15.876 oz BMI 26.3 BP 114/64 Blood Pressure Location Rt brachial Position Sitting Pulse 83 Pulse Source Monitor Intake Visit Reasons: 6mth f/up Internal Audit Consultant Required: No Tick Eradicator: Tick Eradicator Present Allergies pneumococcal vaccine (PNEUMOCOCCAL VACCINE) Allergy (Intermediate, Verified 06/21/25 09:36) RASH amoxicillin (From Augmentin) Allergy (Unknown, Verified 06/21/25 09:36) Swelling clavulanic acid (From Augmentin) Allergy (Unknown, Verified 06/21/25 09:36) Swelling theophylline Adverse Reaction (Intermediate, Verified 06/21/25 09:36) Loss of Appetite Medication List - Last Reconciled 06/21/25 by LYNNETTE Berger albuterol sulfate 90 mcg/actuation 2 puffs PO Q2H PRN atorvastatin 40 mg PO DAILY carvedilol 6.25 mg PO BID cyanocobalamin (vitamin B-12) 1,000 mcg PO DAILY furosemide 60 mg (1.5 x 40 mg) PO DAILY gabapentin mg PO DAILY ipratropium-albuterol 0.5 mg-3 mg(2.5 mg base)/3 mL 3 mL inhalation TID multivitamin (One Daily Multivitamin tablet) 1 tab PO DAILY nystatin 1 appl topical BID tamsulosin 0.4 mg PO BID 90 days warfarin See Protocol 6mg X 5DAYS, 3MG X 2 DAYS orally, Take medication 1-2 tabs as directed per anticoagulation clinic based on your INR HPI HPI 6mth f/up: Details: Kalyan is an 84-year-old male with past medical history of hypertension, hyperlipidemia, prior secondary NSTEMI, chronic atrial fibrillation who presents for follow-up. Today he reports he has been doing generally well since his last visit in December. He does have chronic shortness of breath with activity and wears his oxygen 3 L continually. He says at times he feels tightness in his chest that is relieved with his updraft treatments. He has no other chest discomfort at rest or during activity. He denies PND, leg edema. He does have mild orthopnea and sleeps with 2 pillows. No heart palpitations, lightheadedness, presyncope, syncope, recent falls. He ambulates with a cane and does only light activities including walking. He is compliant with his medications. No bleeding issues reported. Follows with the [facility] anticoagulation Clinic. present. [facility] Medical History (Updated 06/21/25 @ 11:16 by Jannet Amaro NP-Krunal) Non-STEMI (non-ST elevated myocardial infarction) Paronychia Hypertensive emergency Vertigo Permanent atrial fibrillation Radiation cystitis High cholesterol Gout Hypertension Essential hypertension Prostate cancer Pulmonary nodules COPD (chronic obstructive pulmonary disease) Surgical History History of spinal surgery Family History Father No problems noted. Mother No problems noted. 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 Current occupational exposures/hazards: No Review of Systems Const All systems reviewed & are unremarkable except as noted in HPI and below ENT Denies dizziness Card Denies chest pain, Denies chest pain at rest, Denies chest pain with activity, Denies rapid heart rate, Denies pedal edema, Denies edema, Denies leg edema, Denies lightheadedness, Denies palpitations, Reports dyspnea, Reports dyspnea on exertion and Denies orthopnea Resp Denies cough, Reports dyspnea and Reports dyspnea on exertion GI Denies hematochezia and Denies change in stool character Musc Reports abnormal gait (uses cane), Denies limited range of motion, Denies muscle cramps, Denies muscle weakness, Denies numbness, Denies radiating pain into limb, Denies stiffness and Denies tingling Neuro Reports abnormal gait (uses cane), Denies dizziness, Denies numbness and Denies tingling Endo Denies palpitations Physical Exam Vital Signs: Last Vital Signs Pulse 83 06/21/25 09:33 BP 114/64 06/21/25 09:33 BMI result Body Mass Index 26.3 Const General: cooperative, comfortable and no acute distress Orientation/consciousness: patient oriented x3 Neck Neck: Yes normal visual inspection Resp Other: lung sounds diminished Effort & Inspection: normal respiratory effort Auscultation: no rales, no rhonchi and no wheezes Cardio Other: heart tones distant Jugular venous distension: no JVD Rate: regular rate Rhythm: regular rhythm Heart sounds: S1 normal heart sound present, S2 normal heart sound present, no murmurs and no rubs Neuro General: patient oriented x3 Extrem General: Yes normal to inspection, No no pedal edema and No calf tenderness Psych Appearance: grossly normal Mental Status: mental status grossly normal Speech and movement: Normal speech and movement present Office Procedures EKG Details: Today, read by me, atrial fibrillation, right axis, anterior infarct, age undetermined, rate 83, QTC 406 milliseconds [id number], Complete Assessment & Plan Assessment & Plan (1) Permanent atrial fibrillation: Code(s): I48.21 - Permanent atrial fibrillation Category: Medical Plan: History of chronic atrial fibrillation, asymptomatic, treated with heart rate control he is on carvedilol. EKG done today showing AFib, rate 83. He is on Coumadin for anticoagulation, INR goal 2-3. No changes made. Continue to follow with [facility] anticoagulation Clinic. (2) Non-STEMI (non-ST elevated myocardial infarction): Code(s): I21.4 - Non-ST elevation (NSTEMI) myocardial infarction Category: Medical Plan: Secondary NSTEMI 04/2021 with nuclear stress test at that time showing normal myocardial perfusion imaging, no evidence of ischemia or infarct. Last echo 03/22/2025 shows EF 60-65%, normal RV size and function, left atrium severely dilated, right atrium severely dilated, no regional wall motion abnormalities. No anginal symptoms. With his advanced age he likely has some degree of coronary artery disease. He is not on aspirin as he is on Coumadin. He is on atorvastatin with ideal LDL goal less than 70. He is on carvedilol. No med changes made. (3) Essential hypertension: Code(s): I10 - Essential (primary) hypertension Category: Medical Plan: Blood pressure goal less than 130/80, well controlled at this time. Continue carvedilol, Lasix. (4) CABALLERO (dyspnea on exertion): Code(s): R06.09 - Other forms of dyspnea Category: Medical Plan: Chronic shortness of breath with exertion, underlying COPD and hypoxia. Continue home O2 use 3 L. Follow with pulmonology. (5) COPD (chronic obstructive pulmonary disease): Code(s): J44.9 - Chronic obstructive pulmonary disease, unspecified Category: Medical Plan: As above (6) Supplemental oxygen dependent: Code(s): Z99.81 - Dependence on supplemental oxygen Category: Medical Plan: As above (7) High cholesterol: Code(s): E78.00 - Pure hypercholesterolemia, unspecified Category: Medical Plan: [place] LDL goal less than 70. Labs done 02/19/2025 showed LDL 73. Adequately controlled at this time, continue atorvastatin. Plan Time spent on chart review, documentation, interview and assessment Coding Level of Care Code Est Pt Level 4 (28253) Complex EM visit Add On G2211 Diagnoses Permanent atrial fibrillation I48.21 Non-STEMI (non-ST elevated myocardial infarction) I21.4 Essential hypertension I10 CABALLERO (dyspnea on exertion) R06.09 COPD (chronic obstructive pulmonary disease) J44.9 Supplemental oxygen dependent Z99.81 High cholesterol E78.00 CPT Codes EKG - CPT: [id number], Complete ([id number]) Time Spent (min) 28
[2025-06-21 09:33] VITALS: BP 114/64; PULSE 83; BMI 26.3
--- OUTSIDE RECORDS SUMMARY | 2025-06-21 11:02 | XMS_ITS | Patient Health Record ---
Author Organization [facility] Address [address] [place] [phone] Care Team Providers Care Housemaid Name Role Phone Jake Pepper MD Primary Care Provider Luther Rajput Jr [facility] [phone] Allergies Allergen (clinical drug ingredient) Drug/Non Drug [...] Problem Status W/U Status Risk Notes Problem 175862059 Colon cancer screening (V76.51) Active confirmed Problem 297914726 Aspirin long-term use (V58.66) Active confirmed Plan Of Treatment Future Test Test Name Order Date COLONOSCOPY 07/29/2014 Insurance Providers Payer Name Payer Address Payer Phone Subscriber Number Group Number Insured Name Patient Relationship to Insured Coverage Start Date Coverage End Date [facility] [address] [place] [phone] [phone] [id number] CORNELIA JUAREZ Self - patient is the insured [place] [address] [place] [address] [id number] CORNELIA JUAREZ Self - patient is the insured Medical (General) History Medical History History ICD Code prostate problems hypertension elevated cholesterol Surgical History Surgery Date(Month/Year) back surgery knee surgery
--- OUTSIDE RECORDS SUMMARY | 2025-06-21 11:02 | XMS_ITS | Patient Health Record ---
Author Organization Jake Pepper MD Address [address] [place], [place] [id number] Care Team Providers Care Reinforcement Maker Name Role Phone Jake Ppeper Primary Care Provider Allergies Allergen (clinical drug ingredient) Drug/Non Drug Allergy documented on EMR Reaction Allergy Type Onset Date Status Lamisil rash Drug Allergy Active Vaccine product containing Streptococcus pneumoniae antigen (medicinal product) Pneumovax (uncoded) local reaction redness Allergy Active Results Component Value Reference Range Notes Liver Panel Reviewed date:08/20/2024 03:17:01 PM Interpretation: Performing Lab:[facility], [address] [place] [phone] Notes/Report: Bilirubin Total 0.7 0.0-1.0 mg/dL Bilirubin Direct 0.3 0.0-0.5 mg/dL Aspartate Amino Transferase 42 5-37 U/L Alanine Aminotransferase 24 0-40 U/L Total Protein 7.3 6.5-8.0 g/dL Albumin Level 3.9 3.5-5.0 g/dL Alkaline Phosphatase 94 39-117 U/L Lipid Panel with Reflex Reviewed date:08/20/2024 03:16:31 PM Interpretation: Performing Lab:[facility], [address] [place] [phone] Notes/Report: Triglycerides 135 <150 mg/dL Desirable Triglyceride: [...] ff Reviewed date:02/21/2025 05:38:19 PM Interpretation: Performing Lab:[facility], [address] [place] [phone] Notes/Report: White Blood Count 10.0 4.8-10.8 X10*3/uL [...] NRBC Abs Auto 0.000 0.0-0.012 X10*3/uL Comprehensive Burns. Panel Fa st Reviewed date:02/21/2025 05:34:56 PM Interpretation: Performing Lab:[facility], [address] [place] [phone] Notes/Report: Sodium 143 135-145 mmol/L Potassium 3.8 [...] PROFILE Reviewed date:02/19/2025 12:44:54 PM Interpretation: Performing Lab:[address] [phone] Notes/Report: Iron 63 45-160 mcg/dL Total Iron Binding Capacity 271 228-428 mcg/dL Percent Iron Saturation 23 15-50 % Unsaturated Iron Binding 208 Lipid Panel Reviewed date:02/19/2025 12:44:14 PM Interpretation: Performing Lab:[facility], [address] [place] [phone] Notes/Report: Triglycerides 129 <150 mg/dL Desirable Triglyceride: [...] (Free>4and<10) Reviewed date:02/19/2025 12:45:04 PM Interpretation: Performing Lab:[facility], [address] [place] [phone] Notes/Report: PSA,Total (Free>4and<10) < 0.10 0.00-4.00 ng/mL [...] t Reviewed date:02/21/2025 05:39:18 PM Interpretation: Performing Lab:[facility], [address] [place] [phone] Notes/Report: Urine, Clean Catch Color Urine Dark Yellow Appearance Urine Clear PH 6.5 5.0-9.0 Glucose Urine UA Negative Negative mg/dL Urine Blood Negative Negative Specific Meadow - Urine 1.025 1.005-1.025 Urine Protein 30 (1+) Neg-Trace mg/dL Urine Ketones Trace Negative mg/dL Nitrite Urine Negative Negative Leukocyte Esterase Urine Negative Negative RBC Urine 0-2 0-2 /HPF WBC Urine 0-5 0-5 /HPF Squamous Epithelial Cell Urine 0-2 0-2 /HPF Bacteria Urine None Seen None Seen Hyaline Casts Urine 0-2 0-2 /LPF INR WHOLE BLOOD POC Reviewed date:06/25/2024 11:32:23 AM Interpretation: Performing Lab:[facility], [address] [place] [address] Notes/Report: PT, INR - Anti [facility]ag Clinic 3.2 0.9-1.1 METER #: [id number] INTERNATIONAL NORMALIZED RATIO (INR) REFERENCE RANGES Reference [...] OC Reviewed date:06/25/2024 12:15:50 PM Interpretation: Performing Lab:[facility], [address] [place] [phone] Notes/Report: Prothrombin Time Whole Bld POC 38.6 11.1-13.5 sec INR WHOLE BLOOD POC Reviewed date:07/09/2024 11:05:08 AM Interpretation: Performing Lab:[facility], [address] [place] [phone] Notes/Report: PT, INR - Anti Coag Clinic 2.3 0.9-1.1 METER #: [id number] INTERNATIONAL NORMALIZED RATIO (INR) REFERENCE RANGES Reference [...] OC Reviewed date:07/09/2024 12:21:37 PM Interpretation: Performing Lab:[facility], [address] [place] [phone] Notes/Report: Prothrombin Time Whole Bld POC 27.5 11.1-13.5 sec INR WHOLE BLOOD POC Reviewed date:07/22/2024 02:12:43 PM Interpretation: Performing Lab:[facility], [address] [place] [phone] Notes/Report: PT, INR - Anti Coag Clinic 1.8 0.9-1.1 METER #: [id number] INTERNATIONAL NORMALIZED RATIO (INR) REFERENCE RANGES Reference [...] OC Reviewed date:07/22/2024 02:18:21 PM Interpretation: Performing Lab:[facility], [address] [place] [phone] Notes/Report: Prothrombin Time Whole Bld POC 21.8 11.1-13.5 sec INR WHOLE BLOOD POC Reviewed date:08/04/2024 12:06:47 PM Interpretation: Performing Lab:[facility], [address] [place] [phone] Notes/Report: PT, INR - Anti Coag Clinic 2.2 0.9-1.1 METER #: [id number] INTERNATIONAL NORMALIZED RATIO (INR) REFERENCE RANGES Reference [...] OC Reviewed date:08/04/2024 12:04:48 PM Interpretation: Performing Lab:[facility], [address] [place] [phone] Notes/Report: Prothrombin Time Whole Bld POC 25.9 11.1-13.5 sec Kari Wallace Reviewed date:08/20/2024 12:43:27 PM Interpretation: Performing Lab:[facility], [address] [place] [phone] Notes/Report: Kari Wallace See Note Specimen held untested for 24 hours; Call to request Chemistry testing. INR WHOLE BLOOD POC Reviewed date:08/25/2024 07:57:52 PM Interpretation: Performing Lab:[facility], [address] [place] [phone] Notes/Report: PT, INR - Anti Coag Clinic 2.1 0.9-1.1 METER #: [id number] INTERNATIONAL NORMALIZED RATIO (INR) REFERENCE RANGES Reference [...] OC Reviewed date:08/25/2024 07:57:59 PM Interpretation: Performing Lab:[facility], [address] [place] [phone] Notes/Report: Prothrombin Time Whole Bld POC 25.6 11.1-13.5 sec INR WHOLE BLOOD POC Reviewed date:09/15/2024 09:59:14 AM Interpretation: Performing Lab:[facility], [address] [place] [phone] Notes/Report: PT, INR - Anti Coag Clinic 3.0 0.9-1.1 METER #: [id number] INTERNATIONAL NORMALIZED RATIO (INR) REFERENCE RANGES Reference [...] OC Reviewed date:09/15/2024 12:33:10 PM Interpretation: Performing Lab:[facility], [address] [place] [phone] Notes/Report: Prothrombin Time Whole Bld POC 35.5 11.1-13.5 sec INR WHOLE BLOOD POC Reviewed date:10/06/2024 04:22:44 PM Interpretation: Performing Lab:[facility], [address] [place] [phone] Notes/Report: PT, INR - Anti Coag Clinic 2.0 0.9-1.1 METER #: [id number] INTERNATIONAL NORMALIZED RATIO (INR) REFERENCE RANGES Reference [...] OC Reviewed date:10/06/2024 04:22:36 PM Interpretation: Performing Lab:[facility], [address] [place] [phone] Notes/Report: Prothrombin Time Whole Bld POC 23.5 11.1-13.5 sec Prostate Specific Antigen Reviewed date:10/09/2024 11:16:46 AM Interpretation: Performing Lab:[facility], [address] [place] [phone] Notes/Report: Prostate Specific Antigen < 0.10 <0.05-4.0 ng/mL PSA methodology: Robert Alinity i Chemiluminescent Microparticle Immunoassay (CMIA) INR WHOLE BLOOD POC Reviewed date:10/27/2024 11:14:11 AM Interpretation: Performing Lab:[facility], [address] [place] [phone] Notes/Report: PT, INR - Anti Coag Clinic 2.0 0.9-1.1 METER #: [id number] INTERNATIONAL NORMALIZED RATIO (INR) REFERENCE RANGES Reference [...] OC Reviewed date:10/27/2024 11:14:04 AM Interpretation: Performing Lab:[facility], [address] [place] [phone] Notes/Report: Prothrombin Time Whole Bld POC 23.7 11.1-13.5 sec INR WHOLE BLOOD POC Reviewed date:11/10/2024 12:18:48 PM Interpretation: Performing Lab:[facility], [address] [place] [phone] Notes/Report: PT, INR - Anti Coag Clinic 1.8 0.9-1.1 METER #: [id number] INTERNATIONAL NORMALIZED RATIO (INR) REFERENCE RANGES Reference [...] OC Reviewed date:11/10/2024 12:18:37 PM Interpretation: Performing Lab:[facility], [address] [place] [phone] Notes/Report: Prothrombin Time Whole Bld POC 21.5 11.1-13.5 sec INR WHOLE BLOOD POC Reviewed date:11/24/2024 12:04:29 PM Interpretation: Performing Lab:[facility], [address] [place] [phone] Notes/Report: PT, INR - Anti Coag Clinic 2.4 0.9-1.1 METER #: [id number] INTERNATIONAL NORMALIZED RATIO (INR) REFERENCE RANGES Reference [...] OC Reviewed date:11/24/2024 12:04:21 PM Interpretation: Performing Lab:[facility], [address] [place] [phone] Notes/Report: Prothrombin Time Whole Bld POC 28.2 11.1-13.5 sec INR WHOLE BLOOD POC Reviewed date:12/17/2024 12:38:14 PM Interpretation: Performing Lab:[facility], [address] [place] [phone] Notes/Report: PT, INR - Anti Coag Clinic 2.0 0.9-1.1 METER #: [id number] INTERNATIONAL NORMALIZED RATIO (INR) REFERENCE RANGES Reference [...] OC Reviewed date:12/17/2024 12:51:29 PM Interpretation: Performing Lab:[facility], [address] [place] [phone] Notes/Report: Prothrombin Time Whole Bld POC 23.9 11.1-13.5 sec INR WHOLE BLOOD POC Reviewed date:01/07/2025 10:59:51 AM Interpretation: Performing Lab:[facility], [address] [place] [phone] Notes/Report: PT, INR - Anti Coag Clinic 2.2 0.9-1.1 METER #: [id number] INTERNATIONAL NORMALIZED RATIO (INR) REFERENCE RANGES Reference [...] OC Reviewed date:01/07/2025 10:59:22 AM Interpretation: Performing Lab:[facility], [address] [place] [phone] Notes/Report: Prothrombin Time Whole Bld POC 26.4 11.1-13.5 sec INR WHOLE BLOOD POC Reviewed date:02/04/2025 02:25:43 PM Interpretation: Performing Lab:[facility], [address] [place] [phone] Notes/Report: PT, INR - Anti Coag Clinic 3.3 0.9-1.1 METER #: [id number] INTERNATIONAL NORMALIZED RATIO (INR) REFERENCE RANGES Reference [...] OC Reviewed date:02/04/2025 11:35:29 AM Interpretation: Performing Lab:[facility], [address] [place] [phone] Notes/Report: Prothrombin Time Whole Bld POC 39.1 11.1-13.5 sec INR WHOLE BLOOD POC Reviewed date:03/04/2025 10:01:13 AM Interpretation: Performing Lab:[facility], [address] [place] [phone] Notes/Report: PT, INR - Anti Coag Clinic 2.6 0.9-1.1 METER #: [id number] INTERNATIONAL NORMALIZED RATIO (INR) REFERENCE RANGES Reference [...] OC Reviewed date:03/04/2025 10:01:06 AM Interpretation: Performing Lab:[facility], [address] [place] [phone] Notes/Report: Prothrombin Time Whole Bld POC 31.0 11.1-13.5 sec Complete Blood Count Auto Di ff Reviewed date:03/21/2025 07:34:37 PM Interpretation: Performing Lab:[facility], [address] [place] [phone] Notes/Report: White Blood Count 7.1 4.8-10.8 X10*3/uL [...] INR Reviewed date:03/21/2025 07:30:57 PM Interpretation: Performing Lab:[address] [phone] Notes/Report: Prothrombin Time 30.9 10.9-12.4 SEC INTERNATIONAL [...] Microscopic Reviewed date:03/21/2025 07:33:45 PM Interpretation: Performing Lab:[address] [phone] Notes/Report: Color Urine Yellow Appearance Urine Clear PH 6.5 5.0-9.0 Glucose Urine UA Negative Negative mg/dL Urine Blood Negative Negative Specific Meadow - Urine >= 1.030 1.005-1.025 Urine Protein 100 (2+) Neg-Trace mg/dL Urine Ketones 15 Negative mg/dL Nitrite Urine Negative Negative Leukocyte Esterase Urine Negative Negative RBC Urine 0-2 0-2 /HPF WBC Urine 0-5 0-5 /HPF Squamous Epithelial Cell Urine 3-5 0-2 /HPF Bacteria Urine None Seen None Seen Hyaline Casts Urine 11-20 0-2 /LPF Comprehensive Met. Panel Reviewed date:03/21/2025 07:33:21 PM Interpretation: Performing Lab:[facility], [address] [place] [phone] Notes/Report: Sodium 143 135-145 mmol/L Potassium 3.8 [...] Acid Reviewed date:03/21/2025 07:30:17 PM Interpretation: Performing Lab:[facility], [address] [place] [phone] Notes/Report: Lactic Acid 0.9 0.5-2.0 mmol/L Magnesium Reviewed date:03/21/2025 07:31:06 PM Interpretation: Performing Lab:[facility], [address] [place] [phone] Notes/Report: Magnesium 1.9 1.6-2.6 mg/dL Troponin-I High Sensitivity Reviewed date:03/21/2025 07:30:47 PM Interpretation: Performing Lab:[facility], [address] [place] [phone] Notes/Report: Troponin-I High Sensitivity 29.0 <3.5-35.0 ng/L The Robert high sensitivity Troponin-I results should be used in conjunction with other diagnostic information such as ECG, clinical observations and information, and patient symptoms to aid in the diagnosis of [place]. B Type Natriuretic Peptide Reviewed date:03/21/2025 07:31:15 PM Interpretation: Performing Lab:[facility], [address] [place] [phone] Notes/Report: B Type Natriuretic Peptide 214 <100 pg/mL Gram stain Reviewed date:03/23/2025 10:18:58 AM Interpretation: Performing Lab:[facility], [address] [place] [phone] Notes/Report: Gram stain Gram stain results: Gram stain No polys Gram stain 2+ epithelial cells Gram stain 3+ Gram-positive cocci SARS-CoV2/FLU/RSV Reviewed date:03/21/2025 07:30:40 PM Interpretation: Performing Lab:[facility], [address] [place] [phone] Notes/Report: Influenza A PCR NEGATIVE Negative Influenza [...] by authorized laboratories. Testing performed on the [employer] GeneXpert utilizing real-time RT-PCR. All SARS CoV2 and positive influenza A/B results are reported to [facility]. Blood Culture (First) Reviewed date:03/26/2025 04:21:01 PM Interpretation: Performing Lab:[facility], [address] [place] [phone] Notes/Report: Blood Culture (First) No growth after 5 days. Blood Culture (Second) Reviewed date:03/26/2025 04:21:09 PM Interpretation: Performing Lab:[facility], [address] [place] [phone] Notes/Report: Blood Culture (Second) No growth after 5 days. Venous Blood Gases - POC Reviewed date:03/21/2025 07:30:11 PM Interpretation: Performing Lab:[facility], [address] [place] [phone] Notes/Report: VBG pH 7.54 7.32-7.43 METER #: [id number] additional_comment: Cb samantha VBG pCO2 56 METER #: [id number] additional_comment: Cb samantha VBG pO2 56 METER #: [id number] additional_comment: Sushant singh VBG Base Excess 22.3 METER #: [id number] additional_comment: Sushant singh VBG HCO3 48 22-26 mmol/L METER #: [id number] additional_comment: Sushant singh VBG O2 % Saturation 88.0 METER #: [id number] additional_comment: Sushant singh Routine Culture Reviewed date:03/23/2025 10:20:42 AM Interpretation: Performing Lab:[facility], [address] [place] [phone] Notes/Report: Routine Culture Report - external Routine Culture 4+ Mixed skin ricci CT soft tissue neck w con Reviewed date:03/21/2025 07:30:02 PM Interpretation: Performing Lab: Notes/Report: [address] [address] [address] Scan Report Signed Patient: Kalyan Nguyen MR#: [id number] 2742 : 1940 Acct:[id number] Age/Sex: 84 / M ADM Date: 03/20/25 Loc: [place] [address]: Zoraida Donovan MD Ordering Physician: Nilsa Card Date of Service: 03/20/25 Procedure(s): CT soft tissue neck w IV con Accession Number(s): [id number] cc: Nilsa Card; Jake Pepper MD Report Number: [id number]: Total DLP = 599.99 mGy-cm CLINICAL HISTORY: [...] in OV> 03/20/252104 DD/ 03 TD/TT: 03/20/252103 Sheet Rocker: [place] [address] [address] Scan Report Signed Patient: Miguel Nguyen MR#: [id number] 2742 : 1940 Acct:[id number] Age/Sex: 84 / M ADM Date: 03/20/25 Loc: [place] [address]: Zoraida Donovan MD Ordering Physician: Nilsa Card Date of Service: 03/20/25 Procedure(s): CT sof t tissue neck w IV con Accession Number(s): [id number] cc: Nilsa CardSTALIN; Jake Pepper MD Report Number: [id number]: Total DLP = 599.99 mGy-cm CLINICAL HISTORY: [...] in OV> 03/20/252104 DD/ 03 TD/TT: 03/20/252103 Sheet Rocker: CT head/brain wo con Reviewed date:03/21/2025 07:29:22 PM Interpretation: Performing Lab: Notes/Report: [address] [address] [address] Scan Report Signed Patient: Kalyan Nguyen MR#: [id number] 2742 : 1940 Acct:[id number] Age/Sex: 84 / M ADM Date: 03/20/25 Loc: [facility]- Attending Dr: Zoraida Donovan MD Ordering Physician: Nilsa Card Date of Service: 03/20/25 Procedure(s): CT head/brain wo IV con Accession Number(s): [id number] cc: Nilsa Card; Jake Pepper MD Report Number: [id number]: Total DLP = 914.64 mGy-cm CLINICAL HISTORY: [...] in OV> 03/20/252105 DD/ 04 TD/TT: 03/20/252104 Sheet Rocker: [place] [address] [address] Scan Report Signed Patient: Miguel Nguyen MR#: [id number] 2742 : 1940 Acct:[id number] Age/Sex: 84 / M ADM Date: 03/20/25 Loc: [place] [address]: Zoraida Donovan MD Ordering Physician: Nilsa Card Date of Service: 03/20/25 Procedure(s): CT head/brain wo IV con Accession Number(s): [id number] cc: Nilsa Card; Jake Pepper MD Report Number: [id number]: Total DLP = 914.64 mGy-cm CLINICAL HISTORY: [...] in OV> 03/20/252105 DD/ 04 TD/TT: 03/20/252104 Sheet Rocker: XR chest 2V Reviewed date:03/21/2025 07:32:02 PM Interpretation: Performing Lab: Notes/Report: [address] [address] XRay Report Signed Patient: Kalyan Nguyen MR#: [id number] 2742 : 1940 Acct:[id number] Age/Sex: 84 / M ADM Date: 03/20/25 Loc: [facility] Attending Dr: Ordering Physician: Lisette Graves NP Date of Service: 03/20/25 Procedure(s): XR chest 2V Accession Number(s): [id number] cc: Jake Pepper MD; Lisette Graves NP [...] in OV> 03/20/251727 DD/ 26 TD/TT: 03/20/251726 Sheet Rocker: [address] [address] XRay Report Signed Patient: Miguel Nguyen MR#: [id number] 2742 : 1940 Acct:[id number] Age/Sex: 84 / M ADM Date: 03/20/25 Loc: [facility] Attending Dr: Ordering Physician: Lisette Graves NP Date of Service: 03/20/25 Procedure(s): XR rhina st 2V Accession Number(s): [id number] cc: Jake Pepper MD; Lisette Graves NP [...] in OV> 03/20/251727 DD/ 26 TD/TT: 03/20/251726 Sheet Rocker: Troponin-I High Sensitivity Reviewed date:03/21/2025 07:31:34 PM Interpretation: Performing Lab:[facility], [address] [place] [phone] Notes/Report: Troponin-I High Sensitivity 24.4 <3.5-35.0 ng/L The Robert high sensitivity Troponin-I results should be used in conjunction with other diagnostic information such as ECG, clinical observations and information, and patient symptoms to aid in the diagnosis of [place]. Complete Blood Count Auto Di ff Reviewed date:03/21/2025 07:34:16 PM Interpretation: Performing Lab:[facility], [address] [place] [phone] Notes/Report: White Blood Count 6.6 4.8-10.8 X10*3/uL [...] INR Reviewed date:03/21/2025 07:32:30 PM Interpretation: Performing Lab:[address] [address] Notes/Report: Prothrombin Time 41.4 10.9-12.4 SEC INTERNATIONAL [...] Panel Reviewed date:03/21/2025 07:32:58 PM Interpretation: Performing Lab:[address] [address] Notes/Report: Sodium 142 135-145 mmol/L Potassium 3.4 [...] T4 Reviewed date:03/21/2025 07:31:25 PM Interpretation: Performing Lab:[facility], [address] [place] [address] Notes/Report: TSH reflex Free T4 1.34 0.32-4.0 uIU/mL Respiratory Panel Reviewed date:03/21/2025 07:28:57 PM Interpretation: Performing Lab:[facility], [address] [place] [phone] Notes/Report: Adenovirus PCR Not Detected Not Detect. [...] testing should be considered. Results reported to [facility]. This test has been authorized by [...] is performed by Multiplexed PCR, utilizing the [employer] Array. Prothrombin Time INR Reviewed date:03/22/2025 11:40:38 AM Interpretation: Performing Lab:[facility], [address] [place] [phone] Notes/Report: Prothrombin Time 55.7 10.9-12.4 SEC INTERNATIONAL [...] Panel Reviewed date:03/22/2025 12:35:51 PM Interpretation: Performing Lab:[address] [address] Notes/Report: Sodium 138 135-145 mmol/L Potassium 4.1 [...] Random Reviewed date:03/22/2025 04:33:37 PM Interpretation: Performing Lab:[address] [address] Notes/Report: Vancomycin Random 13.0 15-20 mcg/mL Prothrombin Time INR Reviewed date:03/23/2025 10:14:22 AM Interpretation: Performing Lab:[address] [address] Notes/Report: Prothrombin Time 49.6 10.9-12.4 SEC INTERNATIONAL [...] Creatinine Reviewed date:03/23/2025 10:14:33 AM Interpretation: Performing Lab:[address] [address] Notes/Report: Creatinine 0.99 0.5-1.4 mg/dL Creatinine Clr [...] POC Reviewed date:04/01/2025 02:15:11 PM Interpretation: Performing Lab:[address] [address] Notes/Report: PT, INR - Anti Coag Clinic 5.4 0.9-1.1 METER #: [id number] Asymptomatic Cleaned Meter Doctor Notified INTERNATIONAL NORMALIZED [...] OC Reviewed date:04/01/2025 02:14:25 PM Interpretation: Performing Lab:[address] [address] Notes/Report: Prothrombin Time Whole Bld POC 65.0 11.1-13.5 sec INR WHOLE BLOOD POC Reviewed date:04/05/2025 01:00:12 PM Interpretation: Performing Lab:[address] [place] [address] Notes/Report: PT, INR - Anti Coag Clinic 4.7 0.9-1.1 METER #: [id number] INTERNATIONAL NORMALIZED RATIO (INR) REFERENCE RANGES Reference [...] OC Reviewed date:04/05/2025 01:00:04 PM Interpretation: Performing Lab:[facility], [address] [place] [phone] Notes/Report: Prothrombin Time Whole Bld POC 55.9 11.1-13.5 sec INR WHOLE BLOOD POC Reviewed date:04/12/2025 12:38:27 PM Interpretation: Performing Lab:[facility], [address] [place] [phone] Notes/Report: PT, INR - [facility] 4.1 0.9-1.1 METER #: [id number] INTERNATIONAL NORMALIZED RATIO (INR) REFERENCE RANGES Reference [...] OC Reviewed date:04/12/2025 12:38:37 PM Interpretation: Performing Lab:[facility], [address] [place] [phone] Notes/Report: Prothrombin Time Whole Bld POC 49.7 11.1-13.5 sec INR WHOLE BLOOD POC Reviewed date:04/15/2025 04:00:41 PM Interpretation: Performing Lab:[address] [phone] Notes/Report: PT, INR - [facility] 4.2 0.9-1.1 METER #: [id number] INTERNATIONAL NORMALIZED RATIO (INR) REFERENCE RANGES Reference [...] OC Reviewed date:04/15/2025 04:00:48 PM Interpretation: Performing Lab:[facility], [address] [place] [phone] Notes/Report: Prothrombin Time Whole Bld POC 50.7 11.1-13.5 sec INR WHOLE BLOOD POC Reviewed date:04/19/2025 01:36:50 PM Interpretation: Performing Lab:[facility], [address] [place] [phone] Notes/Report: PT, INR - [facility] 2.7 0.9-1.1 METER #: [id number] INTERNATIONAL NORMALIZED RATIO (INR) REFERENCE RANGES Reference [...] OC Reviewed date:04/19/2025 01:36:41 PM Interpretation: Performing Lab:[facility], [address] [place] [phone] Notes/Report: Prothrombin Time Whole Bld POC 31.9 11.1-13.5 sec INR WHOLE BLOOD POC Reviewed date:04/27/2025 12:19:28 PM Interpretation: Performing Lab:[facility], [address] [place] [phone] Notes/Report: PT, INR - Anti [facility]ag Clinic 2.4 0.9-1.1 METER #: [id number] INTERNATIONAL NORMALIZED RATIO (INR) REFERENCE RANGES Reference [...] OC Reviewed date:04/27/2025 12:19:14 PM Interpretation: Performing Lab:[facility], [address] [place] [phone] Notes/Report: Prothrombin Time Whole Bld POC 29.1 11.1-13.5 sec INR WHOLE BLOOD POC Reviewed date:05/11/2025 02:35:09 PM Interpretation: Performing Lab:[facility], [address] [place] [phone] Notes/Report: PT, INR - Anti Coag Clinic 1.4 0.9-1.1 METER #: [id number] Asymptomatic Doctor Notified INTERNATIONAL NORMALIZED RATIO (INR) [...] OC Reviewed date:05/11/2025 02:31:58 PM Interpretation: Performing Lab:[facility], [address] [place] [phone] Notes/Report: Prothrombin Time Whole Bld POC 16.7 11.1-13.5 sec INR WHOLE BLOOD POC Reviewed date:05/14/2025 04:20:53 PM Interpretation: Performing Lab:[facility], [address] [place] [phone] Notes/Report: PT, INR - Anti Coag Clinic 1.6 0.9-1.1 METER #: [id number] INTERNATIONAL NORMALIZED RATIO (INR) REFERENCE RANGES Reference [...] OC Reviewed date:05/14/2025 04:28:14 PM Interpretation: Performing Lab:[facility], [address] [place] [phone] Notes/Report: Prothrombin Time Whole Bld POC 19.6 11.1-13.5 sec INR WHOLE BLOOD POC Reviewed date:05/20/2025 12:36:55 PM Interpretation: Performing Lab:[facility], [address] [place] [phone] Notes/Report: PT, INR - Anti Coag Clinic 1.6 0.9-1.1 METER #: [id number] INTERNATIONAL NORMALIZED RATIO (INR) REFERENCE RANGES Reference [...] OC Reviewed date:05/20/2025 12:36:42 PM Interpretation: Performing Lab:[facility], [address] [place] [phone] Notes/Report: Prothrombin Time Whole Bld POC 19.8 11.1-13.5 sec INR WHOLE BLOOD POC Reviewed date:05/27/2025 12:31:20 PM Interpretation: Performing Lab:[address] [phone] Notes/Report: PT, INR - Anti Coag Clinic 1.8 0.9-1.1 METER #: [id number] INTERNATIONAL NORMALIZED RATIO (INR) REFERENCE RANGES Reference [...] OC Reviewed date:05/27/2025 12:31:13 PM Interpretation: Performing Lab:[facility], [address] [place] [phone] Notes/Report: Prothrombin Time Whole Bld POC 21.4 11.1-13.5 sec Prostate Specific Antigen Reviewed date:06/03/2025 05:00:17 PM Interpretation: Performing Lab:[facility], [address] [place] [phone] Notes/Report: Prostate Specific Antigen < 0.10 <0.05-4.0 ng/mL PSA methodology: [employer] i Chemiluminescent Microparticle Immunoassay (CMIA) INR WHOLE BLOOD POC Reviewed date:06/04/2025 05:07:03 PM Interpretation: Performing Lab:[facility], [address] [place] [phone] Notes/Report: PT, INR - Anti Coag Clinic 2.1 0.9-1.1 METER #: [id number] INTERNATIONAL NORMALIZED RATIO (INR) REFERENCE RANGES Reference [...] OC Reviewed date:06/04/2025 06:43:58 PM Interpretation: Performing Lab:[address] [phone] Notes/Report: Prothrombin Time Whole Bld POC 25.7 11.1-13.5 sec INR WHOLE BLOOD POC Reviewed date:06/11/2025 12:45:15 PM Interpretation: Performing Lab:[facility], [address] [place] [phone] Notes/Report: PT, INR - Anti Coag Clinic 1.9 0.9-1.1 METER #: [id number] INTERNATIONAL NORMALIZED RATIO (INR) REFERENCE RANGES Reference [...] OC Reviewed date:06/11/2025 12:45:05 PM Interpretation: Performing Lab:[address] [phone] Notes/Report: Prothrombin Time Whole Bld POC 23.2 11.1-13.5 sec INR WHOLE BLOOD POC Reviewed date:06/18/2025 12:35:04 PM Interpretation: Performing Lab:[address] [phone] Notes/Report: PT, INR - Anti Coag Clinic 2.8 0.9-1.1 METER #: [id number] INTERNATIONAL NORMALIZED RATIO (INR) REFERENCE RANGES Reference [...] Prothrombin Time Whole Bld P OC Reviewed date:06/18/2025 12:35:12 PM Interpretation: Performing Lab:[address] [phone] Notes/Report: Prothrombin Time Whole Bld POC 33.9 [...] edicine Referred Provider [facility], [facility] Referred Provider Specialty Unknown General [...] hrs for 30 days 01/26/2013 Not-Taking Nystatin 063001 UNIT/GM 1 application Externally Twice a day [...] Orally On ce a day Not-Taking Nystatin 456231 UNIT/GM 1 application Externally Twice a day for 10 days 03/19/2025 Active Gabapentin 300 MG 1 capsule Orally twi ce a day for 30 days 04/05/2025 Active Zolpidem Tartrate 5 MG TAKE 1 TABLET BY MOUTH DAILY AT BEDTIME Orally Once a day for 30 days 06/10/2025 Active Doxycycline Monohydrate 100 MG 1 capsule Orally Once a day Not-Taking Nystatin-Triamcinolone 333670-9.1 UNIT/GM 1 application Externally Twice a day [...] red Fluarix Quadrivalent Unknown 08/05/2018 Administered At [facility] Influenza High Dose IM Intramuscular [...] Problem Status W/U Status Risk Notes Problem 29646551 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 Problem Insomnia (145808091) Insomnia (G47.00) Active confirmed Problem 5729704 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) Active confirmed Problem Cataract (446773475) Unspecified cataract (H26.9) Active confirmed Problem Conductive hearing loss, bilateral (224769334) Conductive hearing loss, 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) Active confirmed Problem 0342020 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) Active confirmed Problem 31034107 Essential hypert ension (I10) Active confirmed Problem 371433214 Prostate cancer (C61) Active confirme d Problem 8957778 Psoriasis (L40.9) Active confirmed Problem 873954983 Lung nodule (R91.1) Active confirmed Problem Low testosterone (430961051) Low testosterone (E29.1) Active confirmed Problem 2031180373431905 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 Problem 420833509 Lung nodules (R91.8) Active confirmed Problem 381267350 Cervical disc di sease (M50.90) Active confirmed Problem 120865012 Tension headache (G44.209) Active confirmed Problem 7821515 Former smoker (Z87.891) Active confirmed Problem Acute exacerbation of chronic obstructive airways disease (414098302) COPD exacerbation (J44.1) Active confirmed Problem Postherpetic neuralgia (8985492) Post herpetic neuralgia (B02.29) Active confirmed Problem 85345902 Dysthymia (F34.1) Active confirmed Problem Iron deficiency anemia (01718409) Iron deficiency anemia, unspecified iron deficiency anemia type (D50.9) Active confirmed Problem 77540448 Atrial fibrillat ion, unspecified type (I48.91) Active confirmed Problem 2319377 Urinary obstruct ion (N13.9) Active confirmed Problem Leukocytosis (278301373) Elevated WBC count (D72.829) Active confirmed Problem 52812385 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 confirmed Problem 846085498 Pure hypercholesterolemia (E78.00) Active confirmed Problem 362797562 BMI 30.0-30.9,ad ult (Z68.30) Active confirmed Problem 214070408 COPD with exacer bation (J44.1) Active confirmed Problem 028577790 Hypertensive cri sis (I16.9) Active confirmed Problem Gout (81059041) Acute gout, unspecified cause, unspecified site (M10.9) Active confirmed Problem 92227672 COPD without exacerbation (J44.9) Active confirmed Problem Gout (23595790) Acute gout of ri ght knee, unspecified cause (M10.9) Active confirmed Problem 100185177 Mixed conductive and sensorineural hearing loss of [...] Jake Pepper MD [address] [place] [address] [id number] 08/20/2024 Jake Pepper Pure hypercholestero lemia E78.00 Jake Pepper MD [address] [place] [address] [id number] 02/19/2025 Jake Pepper Blood tests for rout ine general physical examination Z00.00 ; Essential hypertension I10 ; Pure hypercholesterolemia E78.00 and Iron deficiency anemia, unspecified iron deficiency anemia type D50.9 Jake Pepper MD [address] [place] [address] [id number] 07/07/2024 Jake Pepper Tension headache G44 .209 Jake Pepper MD [address] [place] [address] [id number] 08/27/2024 Jake Pepper Essential hypertensi on I10 ; Pure hypercholesterolemia E78.00 ; Atrial fibrillation, unspecified type I48.91 and COPD without exacerbation J44.9 Jake Pepper MD [address] [place] [address] [id number] 01/22/2025 Jake Pepper Panlobular emphysema J43.1 ; Atrial fibrillation, unspecified type I48.91 and Unspecified cataract H26.9 Jake Pepper MD [address] [place] [address] [id number] 02/26/2025 Jake Pepper Essential hypertensi on I10 ; Annual physical exam Z00.00 ; Panlobular emphysema J43.1 ; Pure hypercholesterolemia E78.00 ; Dysthymia F34.1 ; Iron deficiency anemia, unspecified iron deficiency anemia type D50.9 and Depression screening Z13.31 Jake Pepper MD [address] [place] [address] [id number] 03/18/2025 Jake Pepper Thrush B37.0 Jake Pepper MD [address] [place] [address] [id number] 03/29/2025 Jake Pepper Essential hypertensi on I10 ; Panlobular emphysema J43.1 ; Shingles B02.9 and Thrush B37.0 Jake Pepper MD [address] [place] [address] [id number] 04/05/2025 Jake Pepper Post herpetic neural dung B02.29 ; Skin tear of right forearm without complication, initial encounter S51.801A ; Essential hypertension I10 and Atrial fibrillation, unspecified type I48.91 Jake Pepper MD [address] [place] [address] [id number] 04/20/2025 Jake Pepper Post herpetic neural dung B02.29 ; Skin tear of right forearm without complication, initial encounter S51.801A and Atrial fibrillation, unspecified type I48.91 Jake Pepper MD [address] [place] [address] [id number] 12/21/2024 Jake Pepper MD [address] [place] [address] [id number] 02/19/2025 Jake Pepper MD [address] [place] [address] [id number] 03/19/2025 Jake Pepper MD [address] [place] [address] [id number] 03/26/2025 Jake Pepper MD [address] [place] [address] [id number] 04/01/2025 Jake Pepper MD [address] [place] [address] [id number] 04/13/2025 Jake Pepper MD [address] [place] [address] [id number] 05/07/2025 Jake Pepper MD [address] [place] [address] [id number] 05/11/2025 Jake Pepper MD [address] [place] [address] [id number] 07/07/2024 Jake Pepper Insomnia G47.00 Jake Pepper MD [address] [place] [address] [id number] 08/06/2024 Jake Bombardier Insomnia G47.00 Jake Pepper MD [address] [place] [address] [id number] 09/02/2024 Jake Bombardier Insomnia G47.00 Jake Pepper MD [address] [place] [address] [id number] 10/05/2024 Jake Bombardier Insomnia G47.00 Jake Pepper MD [address] [place] [address] [id number] 11/08/2024 Jake Bombardier Insomnia G47.00 Jake Pepper MD [address] [place] [address] [id number] 12/07/2024 Jake Bombardier Insomnia G47.00 Jake Pepper MD [address] [place] [address] [id number] 01/06/2025 Jake Bombardier Insomnia G47.00 Jake Pepper MD [address] [place] [address] [id number] 02/05/2025 Jake Bombardier Insomnia G47.00 Jake Pepper MD [address] [place] [address] [id number] 02/10/2025 Jake Pepper MD [address] [place] [address] [id number] 02/12/2025 Jake Pepper MD [address] [place] [address] [id number] 03/08/2025 Jake Bombardier Insomnia G47.00 Jake Pepper MD [address] [place] [address] [id number] 06/09/2025 Jake Bombardier Insomnia G47.00 Jake Pepper MD [address] [place] [address] [id number] 06/10/2025 Jake Velaardier Post herpetic neural dung B02.29 Assessments Encounter [...] wo con 02/04/2023 Next Appt Details Provider Name:Jakebernabe Miller ier, 08/19/2025 07:00:00 AM, [address] [place] [address], Suite [facility], [place], [place], [id number], Provider Name:Jake Ruben Paul ier, 08/26/2025 10:00:00 AM, [address] [place] [address], Suite [facility], [place], [place], [id number], Provider Name:Jake Ruben Paul ier, 02/24/2026 07:15:00 AM, [address] [place] [address], Suite [facility], [place], [place], [id number], Provider Name:Jake Miller ier, 03/03/2026 09:30:00 AM, [address] [place] [address], Suite [facility], [place], [place], [id number], Insurance Providers Payer Name Payer Address Payer Phone Subscriber Number Group Number Insured Name Patient Relationship to Insured Coverage Start Date Coverage End Date [employer] [facility] [address] [place] [phone] [id number] Kalyan Nguyen Self - patient is the insured MEDICARE [address] [place] [address] [id number] WendyKalyan Self - patient is the insured Medical (General) History Medical History History ICD Code 03/2004 - colonoscopy (repea t 10 years); colonoscopy [address] Rajput Smoker unmotivated to quit F17.210 biculatimide and finasteraide for prosta te cancer Surgical History Surgery Date(Month/Year) Repair of Umbilical Hernia w/Mesh (Dr. Darrell guido) 04/2019
== END 2025-06-21 10:05 | disposition home or self-care (01) ==
LOC: HO.HCS 09:19
PROVIDERS: PCP Internal Medicine; Visit Provider Nurse Practitioner Family
DX: I48.21 Permanent atrial fibrillation (principal); I21.4 Non-ST elevation (NSTEMI) myocardial infarction; I10 Essential (primary) hypertension; R06.09 Other forms of dyspnea; J44.9 Chronic obstructive pulmonary disease, unspecified; Z99.81 Dependence on supplemental oxygen; E78.00 Pure hypercholesterolemia, unspecified
CPT/HCPCS: 93010; 99214; G2211

== ENCOUNTER → 2025-06-21 09:19 | Outpatient (BNVA) | payer MEDICARE, SELFPAY | PROVIDERS: PCP Internal Medicine; Visit Provider Nurse Practitioner Family | DX: I48.21 Permanent atrial fibrillation (principal); I21.4 Non-ST elevation (NSTEMI) myocardial infarction; I10 Essential (primary) hypertension; R06.09 Other forms of dyspnea; J44.9 Chronic obstructive pulmonary disease, unspecified; E78.00 Pure hypercholesterolemia, unspecified; Z99.81 Dependence on supplemental oxygen | CPT/HCPCS: 93005; 99212 ==

== ENCOUNTER 2025-07-02 09:27 | Outpatient (AMB) | payer MEDICARE, SELFPAY ==
--- OUTSIDE RECORDS SUMMARY | 2025-04-20 06:00 | XMS_ITS ---
Author Organization Jake Pepper MD Address [address] [place], [place] [phone] Care Team Providers Care Senior Technical Program Manager Name Role Phone Jake Pepper Primary Care Provider [phone] Allergies Allergen (clinical drug ingredient) Drug/Non [...] CAPSULE BY MOUTH TWICE DAILY Active Nystatin 824762 UNIT/GM 1 application Externally Twice a day for 30 days 05/29/2022 Active Nystatin 152411 UNIT/GM 1 application Externally Twice a day [...] 14 DAYS Oral for 14 Not-Taking Nystatin-Triamcinolone 014294-2.1 UNIT/GM 1 application Externally Twice a day [...] Location Date Provider Diagnosis Jake Pepper MD [address] [place] [address] [place] [phone] 04/20/2025 Jake Pepper Post herpetic neuralgia B02.29 [...] Reason: Provider Name:Jake schmidt, 08/19/2025 07:00:00 AM, [address] [place] [address], [address] [place] [address], [phone], Provider Name:Jake schmidt, 08/26/2025 10:00:00 AM, [address] [place] [address], [address] [place] [address], [phone], Provider Name:Jake schmidt, 02/24/2026 07:15:00 AM, [address] [place] [address], [address], [phone], Provider Name:Jaek Miller ier, 03/03/2026 09:30:00 AM, [address], [address], [place], [place], [phone], Progress Notes * Kalyan JUAREZ RDOB: [birth year] (84 yo M)Acc No.[id number]:04/20/2025 Progress Notes Patient: Kalyan KENNEDY Provider: Aly Pepper MD :1940 A ge:84 Y S ex:Male Date:04/20/2025 Address:[address] [place], [place] [address]Mitesh [place], [id number] Subjective: * Chief Complaints: * 2 WEEK [...] 1 tablet Orally Once a day Nystatin 535633 UNIT/GM Ointment 1 application Externally Twice a day Tamsulosin HCl 0.4 MG Capsule TAKE 1 CAPSULE BY MOUTH TWICE DAILY Atorvastatin Calcium 40 MG Tablet 1 tablet Orally Once a day Zolpidem Tartrate 5 MG Tablet TAKE 1 TABLET BY MOUTH DAILY AT BEDTIME Orally Once a day Nystatin 694200 UNIT/GM Cream 1 application Externally Twice a [...] tablet Orally Once a day Taking Nystatin 609104 UNIT/GM Ointment 1 application Externally Twice a day Taking Tamsulosin HCl 0.4 MG Capsule TAKE 1 CAPSULE BY MOUTH TWICE DAILY Taking Atorvastatin Calcium 40 MG Tablet 1 tablet Orally Once a day Taking Zolpidem Tartrate 5 MG Tablet TAKE 1 TABLET BY MOUTH DAILY AT BEDTIME Orally Once a day Taking Nystatin 346162 UNIT/GM Cream 1 application Externally Twice a [...] 1 puff Inhalation Twice a day Nystatin-Triamcinolone 578415-0.1 UNIT/GM Cream 1 application Externally Twice a [...] puff Inhalation Twice a day Not-Taking/PRN Nystatin-Triamcinolone 115815-4.1 UNIT/GM Cream 1 application Externally Twice a [...] 04/20/2025 Generated for Mabel trotter/Ashish/Franciscoitting on: 0 07/02/2025 10:23 AM EDT History and Physical Notes * [...]
--- OUTSIDE RECORDS SUMMARY | 2025-05-07 06:44 | XMS_ITS ---
Author Organization Jake Pepper MD Address [address] [place], [place] [phone] Care Team Providers Care Pickle Solution Maker Name Role Phone Jake Pepper Primary Care Provider [phone] REASON FOR VISIT RE GABAPENTIN Encounters Encounter Location Date Provider Diagnosis Jake Pepper MD [address] [place] [phone] 05/07/2025 Jake Pepper Plan Of Treatment Next Appt Details Provider Name:Jake schmidt, 08/19/2025 07:00:00 AM, [address] [place] [address], [address], [phone], Provider Name:Jake schmidt, 08/26/2025 10:00:00 AM, [address], [address], [place], [phone], Provider Name:Jake Miller kenyar, 02/24/2026 07:15:00 AM, [address] [facility] [address], [address], [place], [place], [phone], Provider Name:Jake Miller kenyar, 03/03/2026 09:30:00 AM, 10 [facility], [address], [place], [place], [phone], Progress Notes * Kalyan JUAREZ RDOB: [birth year] (84 yo M)Acc No.[id number]:05/07/2025 Patient: Carmen VIRAMONTESKalyan :1940 A ge:84 Y S ex:Male Address:[address] [place] [phone] * true * Date: Generated for Mabel trotter/Ashish/Erikasmitting on: 0 07/02/2025 10:23 AM EDT
--- OUTSIDE RECORDS SUMMARY | 2025-05-11 06:57 | XMS_ITS ---
Author Organization Jake Pepper MD Address [address] [place], [place] [phone] Care Team Providers Care Virtual Assistant Name Role Phone Jake Pepper Primary Care Provider [phone] REASON FOR VISIT INR of 1.4 Encounters Encounter Location Date Provider Diagnosis Jake Pepper MD [address] [place], [place] [phone] 05/11/2025 Jake Pepper Plan Of Treatment Next Appt Details Provider Name:Jake schmidt, 08/19/2025 07:00:00 AM, 10 [facility], Suite [facility], [place], [place], [phone], Provider Name:Jake schmidt, 08/26/2025 10:00:00 AM, [address], [address], [place], [phone], Provider Name:Jake Miller roxana, 02/24/2026 07:15:00 AM, [address] [facility] [address], [address], [place], [phone], Provider Name:Jake Miller roxana, 03/03/2026 09:30:00 AM, [address] [facility] [address], [address], [place], [phone], Progress Notes * Kalyan JUAREZ RDOB: [birth year] (84 yo M)Acc No.[id number]:05/11/2025 Patient: Carmen VIRAMONTESKalyan :1940 A ge:84 Y S ex:Male Address:[address] [place] [address] [place] [address] * true * Date: Generated for Mabel trotter/Ashish/eTmartinsmitting on: 0 07/02/2025 10:23 AM EDT
--- OUTSIDE RECORDS SUMMARY | 2025-06-09 05:00 | XMS_ITS ---
Author Organization Jake Pepper MD Address [address] [place] [phone] Care Team Providers Care Ear Mold Laboratory Technician Name Role Phone Jake Pepper Primary [...] Pepper MD [address] [place] [id number] 06/09/2025 Jake Pepper Insomnia G47.00 Assessments Encounter [...] Provider Name:Jake Miller ier, 08/19/2025 07:00:00 AM, [address] [place] [address], Suite [facility], [place], [place], [phone], Provider Name:Jake Miller ier, 08/26/2025 10:00:00 AM, [address] [place] [address], [place] [address], [place], [place], [phone], Provider Name:Jake Miller ier, 02/24/2026 07:15:00 AM, [address] [place] [address], [place] [address], [place], [place], [phone], Provider Name:Jake Miller ier, 03/03/2026 09:30:00 AM, [address] [place] [address], [place] [address], [place], [place], [phone], Progress Notes * Kalyan JUAREZ RDOB: [birth year] (84 yo M)Acc No.[id number]:06/09/2025 Patient: Carmen VIRAMONTESKalyan :1940 A ge:84 Y S ex:Male Address:[address] [place] [phone] * Refills Refill Zolpidem Tartrate Tablet, 5 MG, Orally, 30, TAKE 1 TABLET BY MOUTH DAILY AT BEDTIME, Once a day, 30 days, Refills=0 * true * Date: Generated for Mabel trotter/Ashish/Franciscoitting on: 0 07/02/2025 10:23 AM EDT
--- OUTSIDE RECORDS SUMMARY | 2025-06-10 10:00 | XMS_ITS ---
Author Organization Jake Pepper MD Address [address] [place] [phone] Care Team Providers Care Director Geophysical Laboratory Name Role Phone Jake Pepper Primary Care Provider REASON FOR VISIT New Refill Request Medications Medication SIG (Take, Route, Fr equency, Duration) Notes Start Date End Date Status Gabapentin 300 MG 1 capsule Orally twi ce a day for 30 days 04/05/2025 Active Encounters Encounter Location Date Provider Diagnosis Jake Pepper MD [address] [place] [phone] 06/10/2025 Jake Pepper Post herpetic neuralgia B02.29 [...] Provider Name:Jake Miller ier, 08/19/2025 07:00:00 AM, [address] [place] [address], Suite [facility], [place], [place], [phone], Provider Name:Jake Miller ier, 08/26/2025 10:00:00 AM, [address] [place] [address], Suite [facility], [place], [place], [phone], Provider Name:Jake Miller ier, 02/24/2026 07:15:00 AM, [address] [place] [address], Suite [facility], [place], [place], [phone], Provider Name:Jake Miller ier, 03/03/2026 09:30:00 AM, [address] [place] [address], [address], [phone], Progress Notes * Kalyan JUAREZ RDOB: [birth year] (84 yo M)Acc No.[id number]:06/10/2025 Patient: Carmen NELLSEANKalyan :1940 A ge:84 Y S ex:Male Address:[address] [place] [phone] * Refills Refill Gabapentin Capsule, 300 MG, Orally, 60 Capsule, 1 capsule, twice a day, 30 days * true * Date: Generated for Mabel trotter/Ashish/eTransmitting on: 0 07/02/2025 10:24 AM EDT
[2025-07-02 09:43] LABS: Prothrombin Time Whole Bld POC 26.1 sec (11.1-13.5); ~PT, ~INR - Anti Coag Clinic 2.2 (0.9-1.1)
--- NOTE | 2025-07-02 09:52 | MHC.OFFVISCO ---
Intake Intake Visit Reasons: Anticoagulation Allergies pneumococcal vaccine (PNEUMOCOCCAL VACCINE) Allergy (Intermediate, Verified 07/02/25 09:36) RASH amoxicillin (From Augmentin) Allergy (Unknown, Verified 07/02/25 09:36) Swelling clavulanic acid (From Augmentin) Allergy (Unknown, Verified 07/02/25 09:36) Swelling theophylline Adverse Reaction (Intermediate, Verified 07/02/25 09:36) Loss of Appetite Medication List - Last Reconciled 07/02/25 by Gertrudis Simeon RN albuterol sulfate 90 mcg/actuation 2 puffs PO Q2H PRN atorvastatin 40 mg PO DAILY carvedilol 6.25 mg PO BID cyanocobalamin (vitamin B-12) 1,000 mcg PO DAILY furosemide 60 mg (1.5 x 40 mg) PO DAILY gabapentin mg PO DAILY ipratropium-albuterol 0.5 mg-3 mg(2.5 mg base)/3 mL 3 mL inhalation TID multivitamin (One Daily Multivitamin tablet) 1 tab PO DAILY nystatin 1 appl topical BID tamsulosin 0.4 mg PO BID 90 days warfarin See Protocol 6mg X 5DAYS, 3MG X 2 DAYS orally, Take medication 1-2 tabs as directed per anticoagulation clinic based on your INR Nursing Note INR: 2.2 in therapeutic range Medications and supplements reviewed No changes in health, diet, medications, or supplements, Denies any signs and symptoms of bleeding or bruising or clotting. Bleeding, bruising, clotting discussed Nutritional guidance given Dose: 9MG X 2 DAYS/ 6MG X 5 DAYS F/U INR: 3 WEEKS Patient verbalizes understanding of instructions given Anti-Coag Initial Assessment Social Hx Patient Tobacco Use Status: Former Tobacco user alcohol intake: never Alcohol intake frequency: 0-2 drinks per day Cardiovascular Hx: HTN, IN and Arrhythmias Lung Disease HX: COPD Musculoskeletal Hx: Gout Blood Disorder Hx: Hyperlipidemia GI Hx: Hemorrhoids Hx: Kidney Disease and Prostate Cancer HX: Yes Psych. 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
--- OUTSIDE RECORDS SUMMARY | 2025-07-02 10:23 | XMS_ITS | Patient Health Record ---
Author Organization Jake Pepper MD Address [address] [place], [place] [id number] Care Team Providers Care Rigger Supervisor Name Role Phone Jake Pepper Primary Care Provider Allergies Allergen (clinical drug ingredient) Drug/Non Drug Allergy documented on EMR Reaction Allergy Type Onset Date Status Lamisil rash Drug Allergy Active Vaccine product containing Streptococcus pneumoniae antigen (medicinal product) Pneumovax (uncoded) local reaction redness Allergy Active Results Component Value Reference Range Notes Liver Panel Reviewed date:08/20/2024 03:17:01 PM Interpretation: Performing Lab:[facility], [address] [place] [phone] Notes/Report: Bilirubin Total 0.7 0.0-1.0 mg/dL Bilirubin Direct 0.3 0.0-0.5 mg/dL Aspartate Amino Transferase 42 5-37 U/L Alanine Aminotransferase 24 0-40 U/L Total Protein 7.3 6.5-8.0 g/dL Albumin Level 3.9 3.5-5.0 g/dL Alkaline Phosphatase 94 39-117 U/L Lipid Panel with Reflex Reviewed date:08/20/2024 03:16:31 PM Interpretation: Performing Lab:[facility], [address] [place] [phone] Notes/Report: Triglycerides 135 <150 mg/dL Desirable Triglyceride: [...] ff Reviewed date:02/21/2025 05:38:19 PM Interpretation: Performing Lab:[facility], [address] [place] [phone] Notes/Report: White Blood Count 10.0 4.8-10.8 X10*3/uL [...] NRBC Abs Auto 0.000 0.0-0.012 X10*3/uL Comprehensive [place]. Panel Fa st Reviewed date:02/21/2025 05:34:56 PM Interpretation: Performing Lab:[facility], [address] [place] [phone] Notes/Report: Sodium 143 135-145 mmol/L Potassium 3.8 [...] PROFILE Reviewed date:02/19/2025 12:44:54 PM Interpretation: Performing Lab:[address] [phone] Notes/Report: Iron 63 45-160 mcg/dL Total Iron Binding Capacity 271 228-428 mcg/dL Percent Iron Saturation 23 15-50 % Unsaturated Iron Binding 208 Lipid Panel Reviewed date:02/19/2025 12:44:14 PM Interpretation: Performing Lab:[facility], [address] [place] [phone] Notes/Report: Triglycerides 129 <150 mg/dL Desirable Triglyceride: [...] (Free>4and<10) Reviewed date:02/19/2025 12:45:04 PM Interpretation: Performing Lab:[facility], [address] [place] [phone] Notes/Report: PSA,Total (Free>4and<10) < 0.10 0.00-4.00 ng/mL [...] t Reviewed date:02/21/2025 05:39:18 PM Interpretation: Performing Lab:[facility], [address] [place] [phone] Notes/Report: Urine, Clean Catch Color Urine Dark Yellow Appearance Urine Clear PH 6.5 5.0-9.0 Glucose Urine UA Negative Negative mg/dL Urine Blood Negative Negative Specific Og[place] - Urine 1.025 1.005-1.025 Urine Protein 30 (1+) Neg-Trace mg/dL Urine Ketones Trace Negative mg/dL Nitrite Urine Negative Negative Leukocyte Esterase Urine Negative Negative RBC Urine 0-2 0-2 /HPF WBC Urine 0-5 0-5 /HPF Squamous Epithelial Cell Urine 0-2 0-2 /HPF Bacteria Urine None Seen None Seen Hyaline Casts Urine 0-2 0-2 /LPF INR WHOLE BLOOD POC Reviewed date:07/09/2024 11:05:08 AM Interpretation: Performing Lab:[facility], [address] [place] [phone] Notes/Report: PT, INR - Anti [facility]ag Clinic 2.3 0.9-1.1 METER #: [id number] INTERNATIONAL NORMALIZED RATIO (INR) REFERENCE RANGES Reference [...] OC Reviewed date:07/09/2024 12:21:37 PM Interpretation: Performing Lab:[facility], [address] [place] [phone] Notes/Report: Prothrombin Time Whole Bld POC 27.5 11.1-13.5 sec INR WHOLE BLOOD POC Reviewed date:07/22/2024 02:12:43 PM Interpretation: Performing Lab:[facility], [address] [place] [phone] Notes/Report: PT, INR - Anti Coag Clinic 1.8 0.9-1.1 METER #: [id number] INTERNATIONAL NORMALIZED RATIO (INR) REFERENCE RANGES Reference [...] OC Reviewed date:07/22/2024 02:18:21 PM Interpretation: Performing Lab:[facility], [address] [place] [phone] Notes/Report: Prothrombin Time Whole Bld POC 21.8 11.1-13.5 sec INR WHOLE BLOOD POC Reviewed date:08/04/2024 12:06:47 PM Interpretation: Performing Lab:[facility], [address] [place] [phone] Notes/Report: PT, INR - Anti Coag Clinic 2.2 0.9-1.1 METER #: [id number] INTERNATIONAL NORMALIZED RATIO (INR) REFERENCE RANGES Reference [...] OC Reviewed date:08/04/2024 12:04:48 PM Interpretation: Performing Lab:[facility], [address] [place] [phone] Notes/Report: Prothrombin Time Whole Bld POC 25.9 11.1-13.5 sec Hold Gold Reviewed date:08/20/2024 12:43:27 PM Interpretation: Performing Lab:[facility], [address] [place] [phone] Notes/Report: Hold Gold See Note Specimen held untested for 24 hours; Call to request Chemistry testing. INR WHOLE BLOOD POC Reviewed date:08/25/2024 07:57:52 PM Interpretation: Performing Lab:[facility], [address] [place] [phone] Notes/Report: PT, INR - Anti Coag Clinic 2.1 0.9-1.1 METER #: [id number] INTERNATIONAL NORMALIZED RATIO (INR) REFERENCE RANGES Reference [...] OC Reviewed date:08/25/2024 07:57:59 PM Interpretation: Performing Lab:[facility], [address] [place] [phone] Notes/Report: Prothrombin Time Whole Bld POC 25.6 11.1-13.5 sec INR WHOLE BLOOD POC Reviewed date:09/15/2024 09:59:14 AM Interpretation: Performing Lab:[facility], [address] [place] [phone] Notes/Report: PT, INR - Anti Coag Clinic 3.0 0.9-1.1 METER #: [id number] INTERNATIONAL NORMALIZED RATIO (INR) REFERENCE RANGES Reference [...] OC Reviewed date:09/15/2024 12:33:10 PM Interpretation: Performing Lab:[facility], [address] [place] [phone] Notes/Report: Prothrombin Time Whole Bld POC 35.5 11.1-13.5 sec INR WHOLE BLOOD POC Reviewed date:10/06/2024 04:22:44 PM Interpretation: Performing Lab:[facility], [address] [place] [phone] Notes/Report: PT, INR - Anti Coag Clinic 2.0 0.9-1.1 METER #: [id number] INTERNATIONAL NORMALIZED RATIO (INR) REFERENCE RANGES Reference [...] OC Reviewed date:10/06/2024 04:22:36 PM Interpretation: Performing Lab:[facility], [address] [place] [phone] Notes/Report: Prothrombin Time Whole Bld POC 23.5 11.1-13.5 sec Prostate Specific Antigen Reviewed date:10/09/2024 11:16:46 AM Interpretation: Performing Lab:[facility], [address] [place] [phone] Notes/Report: Prostate Specific Antigen < 0.10 <0.05-4.0 ng/mL PSA methodology: Robert Alinity i Chemiluminescent Microparticle Immunoassay (CMIA) INR WHOLE BLOOD POC Reviewed date:10/27/2024 11:14:11 AM Interpretation: Performing Lab:[address] [phone] Notes/Report: PT, INR - Anti Coag Clinic 2.0 0.9-1.1 METER #: [id number] INTERNATIONAL NORMALIZED RATIO (INR) REFERENCE RANGES Reference [...] OC Reviewed date:10/27/2024 11:14:04 AM Interpretation: Performing Lab:[facility], [address] [place] [phone] Notes/Report: Prothrombin Time Whole Bld POC 23.7 11.1-13.5 sec INR WHOLE BLOOD POC Reviewed date:11/10/2024 12:18:48 PM Interpretation: Performing Lab:[facility], [address] [place] [phone] Notes/Report: PT, INR - Anti Coag Clinic 1.8 0.9-1.1 METER #: [id number] INTERNATIONAL NORMALIZED RATIO (INR) REFERENCE RANGES Reference [...] OC Reviewed date:11/10/2024 12:18:37 PM Interpretation: Performing Lab:[facility], [address] [place] [phone] Notes/Report: Prothrombin Time Whole Bld POC 21.5 11.1-13.5 sec INR WHOLE BLOOD POC Reviewed date:11/24/2024 12:04:29 PM Interpretation: Performing Lab:[facility], [address] [place] [phone] Notes/Report: PT, INR - Anti Coag Clinic 2.4 0.9-1.1 METER #: [id number] INTERNATIONAL NORMALIZED RATIO (INR) REFERENCE RANGES Reference [...] OC Reviewed date:11/24/2024 12:04:21 PM Interpretation: Performing Lab:[facility], [address] [place] [phone] Notes/Report: Prothrombin Time Whole Bld POC 28.2 11.1-13.5 sec INR WHOLE BLOOD POC Reviewed date:12/17/2024 12:38:14 PM Interpretation: Performing Lab:[facility], [address] [place] [phone] Notes/Report: PT, INR - Anti Coag Clinic 2.0 0.9-1.1 METER #: [id number] INTERNATIONAL NORMALIZED RATIO (INR) REFERENCE RANGES Reference [...] OC Reviewed date:12/17/2024 12:51:29 PM Interpretation: Performing Lab:[facility], [address] [place] [phone] Notes/Report: Prothrombin Time Whole Bld POC 23.9 11.1-13.5 sec INR WHOLE BLOOD POC Reviewed date:01/07/2025 10:59:51 AM Interpretation: Performing Lab:[facility], [address] [place] [phone] Notes/Report: PT, INR - Anti Coag Clinic 2.2 0.9-1.1 METER #: [id number] INTERNATIONAL NORMALIZED RATIO (INR) REFERENCE RANGES Reference [...] OC Reviewed date:01/07/2025 10:59:22 AM Interpretation: Performing Lab:[facility], [address] [place] [phone] Notes/Report: Prothrombin Time Whole Bld POC 26.4 11.1-13.5 sec INR WHOLE BLOOD POC Reviewed date:02/04/2025 02:25:43 PM Interpretation: Performing Lab:[facility], [address] [place] [phone] Notes/Report: PT, INR - Anti Coag Clinic 3.3 0.9-1.1 METER #: [id number] INTERNATIONAL NORMALIZED RATIO (INR) REFERENCE RANGES Reference [...] OC Reviewed date:02/04/2025 11:35:29 AM Interpretation: Performing Lab:[facility], [address] [place] [phone] Notes/Report: Prothrombin Time Whole Bld POC 39.1 11.1-13.5 sec INR WHOLE BLOOD POC Reviewed date:03/04/2025 10:01:13 AM Interpretation: Performing Lab:[facility], [address] [place] [phone] Notes/Report: PT, INR - Anti Coag Clinic 2.6 0.9-1.1 METER #: [id number] INTERNATIONAL NORMALIZED RATIO (INR) REFERENCE RANGES Reference [...] OC Reviewed date:03/04/2025 10:01:06 AM Interpretation: Performing Lab:[facility], [address] [place] [phone] Notes/Report: Prothrombin Time Whole Bld POC 31.0 11.1-13.5 sec Complete Blood Count Auto Di ff Reviewed date:03/21/2025 07:34:37 PM Interpretation: Performing Lab:[facility], [address] [place] [phone] Notes/Report: White Blood Count 7.1 4.8-10.8 X10*3/uL [...] INR Reviewed date:03/21/2025 07:30:57 PM Interpretation: Performing Lab:[facility], [address] [place] [phone] Notes/Report: Prothrombin Time 30.9 10.9-12.4 SEC INTERNATIONAL [...] Microscopic Reviewed date:03/21/2025 07:33:45 PM Interpretation: Performing Lab:[address] [phone] Notes/Report: Color Urine Yellow Appearance Urine Clear PH 6.5 5.0-9.0 Glucose Urine UA Negative Negative mg/dL Urine Blood Negative Negative Specific [place] - Urine >= 1.030 1.005-1.025 Urine Protein 100 (2+) Neg-Trace mg/dL Urine Ketones 15 Negative mg/dL Nitrite Urine Negative Negative Leukocyte Esterase Urine Negative Negative RBC Urine 0-2 0-2 /HPF WBC Urine 0-5 0-5 /HPF Squamous Epithelial Cell Urine 3-5 0-2 /HPF Bacteria Urine None Seen None Seen Hyaline Casts Urine 11-20 0-2 /LPF Comprehensive Met. Panel Reviewed date:03/21/2025 07:33:21 PM Interpretation: Performing Lab:[address] [phone] Notes/Report: Sodium 143 135-145 mmol/L Potassium 3.8 3.3-5.1 mmol/L Chloride 89 96-108 mmol/L Carbon Dioxide 43 22-29 mmol/L Critical value for test(s): BIC Results called to and read back by:ANWM Person calling: ALKASAB Date: 03/20/2025 Time:16:45 Anion Gap 15 12-20 [...] Acid Reviewed date:03/21/2025 07:30:17 PM Interpretation: Performing Lab:[facility], [address] [place] [phone] Notes/Report: Lactic Acid 0.9 0.5-2.0 mmol/L Magnesium Reviewed date:03/21/2025 07:31:06 PM Interpretation: Performing Lab:[facility], [address] [place] [phone] Notes/Report: Magnesium 1.9 1.6-2.6 mg/dL Troponin-I High Sensitivity Reviewed date:03/21/2025 07:30:47 PM Interpretation: Performing Lab:[facility], [address] [place] [phone] Notes/Report: Troponin-I High Sensitivity 29.0 <3.5-35.0 ng/L The Robert high sensitivity Troponin-I results should be used in conjunction with other diagnostic information such as ECG, clinical observations and information, and patient symptoms to aid in the diagnosis of [place]. B Type Natriuretic Peptide Reviewed date:03/21/2025 07:31:15 PM Interpretation: Performing Lab:[facility], [address] [place] [phone] Notes/Report: B Type Natriuretic Peptide 214 <100 pg/mL Gram stain Reviewed date:03/23/2025 10:18:58 AM Interpretation: Performing Lab:[facility], [address] [place] [phone] Notes/Report: Gram stain Gram stain results: Gram stain No polys Gram stain 2+ epithelial cells Gram stain 3+ Gram-positive cocci SARS-CoV2/FLU/RSV Reviewed date:03/21/2025 07:30:40 PM Interpretation: Performing Lab:[address] [phone] Notes/Report: Influenza A PCR NEGATIVE Negative Influenza [...] by authorized laboratories. Testing performed on the [employer] GeneXpert utilizing real-time RT-PCR. All SARS CoV2 and positive influenza A/B results are reported to [facility]. Blood Culture (First) Reviewed date:03/26/2025 04:21:01 PM Interpretation: Performing Lab:[address] [phone] Notes/Report: Blood Culture (First) No growth after 5 days. Blood Culture (Second) Reviewed date:03/26/2025 04:21:09 PM Interpretation: Performing Lab:[address] [phone] Notes/Report: Blood Culture (Second) No growth after 5 days. Venous Blood Gases - POC Reviewed date:03/21/2025 07:30:11 PM Interpretation: Performing Lab:[address] [address] Notes/Report: VBG pH 7.54 7.32-7.43 METER #: [id number] additional_comment: [facility] pCO2 56 METER #: [id number] additional_comment: [facility] VBG pO2 56 METER #: [id number] additional_comment: [facility] Base Excess 22.3 METER #: [id number] additional_comment: [facility] HCO3 48 22-26 mmol/L METER #: [id number] additional_comment: [facility] O2 % Saturation 88.0 METER #: [id number] additional_comment: Sushant singh Routine Culture Reviewed date:03/23/2025 10:20:42 AM Interpretation: Performing Lab:[facility], [address] [place] [phone] Notes/Report: Routine Culture Report - external Routine Culture 4+ Mixed skin ricci CT soft tissue neck w con Reviewed date:03/21/2025 07:30:02 PM Interpretation: Performing Lab: Notes/Report: [address] [address] [address] Scan Report Signed Patient: Kalyan Nguyen MR#: [id number] 2742 : 1940 Acct:[id number] Age/Sex: 84 / M ADM Date: 03/20/25 Loc: [place] [address]: Zoraida Donovan MD Ordering Physician: Nilsa Card [facility] Date of Service: 03/20/25 Procedure(s): CT soft tissue neck w IV con Accession Number(s): [id number] cc: Nilsa aCrd [facility]; Jake Pepper MD Report Number: [id number]: Total DLP = 599.99 mGy-cm CLINICAL HISTORY: [...] in OV> 03/20/252104 DD/ 03 TD/TT: 03/20/252103 Solar Manager: [place] [address] CT Scan Report Signed Patient: Miguel Nguyen MR#: [id number] 2742 : 1940 Acct:[id number] Age/Sex: 84 / M ADM Date: 03/20/25 Loc: [facility]- Attending Dr: Zoraida Donovan MD Ordering Physician: Nilsa Card [facility] Date of Service: 03/20/25 Procedure(s): CT sof t tissue neck w IV con Accession Number(s): [id number] cc: Nilsa Card [facility]; Jake Pepper MD Report Number: [id number]: Total DLP = 599.99 mGy-cm CLINICAL HISTORY: [...] in OV> 03/20/252104 DD/ 03 TD/TT: 03/20/252103 Solar Manager: CT head/brain wo con Reviewed date:03/21/2025 07:29:22 PM Interpretation: Performing Lab: Notes/Report: [address] [address] [address] Scan Report Signed Patient: Kalyan Nguyen MR#: [id number] 2742 : 1940 Acct:[id number] Age/Sex: 84 / M ADM Date: 03/20/25 Loc: [place] [address]: Zoraida Donovan MD Ordering Physician: Nilsa Card Date of Service: 03/20/25 Procedure(s): CT head/brain wo IV con Accession Number(s): [id number] cc: Nilsa Card; Jake Pepper MD Report Number: [id number]: Total DLP = 914.64 mGy-cm CLINICAL HISTORY: [...] in OV> 03/20/252105 DD/ 04 TD/TT: 03/20/252104 Solar Manager: [address] [address] [address] Scan Report Signed Patient: Miguel Nguyen MR#: [id number] 2742 : 1940 Acct:[id number] Age/Sex: 84 / M ADM Date: 03/20/25 Loc: [place] [address]: Zoraida Donovan MD [facility]: 03/20/25 Procedure(s): CT head/brain wo IV con Accession Number(s): [id number] cc: Nilsa CardSTALIN; Jake Pepper MD Report Number: [id number]: Total DLP = 914.64 mGy-cm CLINICAL HISTORY: [...] in OV> 03/20/252105 DD/ 04 TD/TT: 03/20/252104 Solar Manager: XR chest 2V Reviewed date:03/21/2025 07:32:02 PM Interpretation: Performing Lab: Notes/Report: [address] [address] XRay Report Signed Patient: Kalyan Nguyen MR#: [id number] 2742 : 1940 Acct:[id number] Age/Sex: 84 / M ADM Date: 03/20/25 Loc: .ED Attending Dr: Ordering Physician: Lisette Graves NP Date of Service: 03/20/25 Procedure(s): XR chest 2V Accession Number(s): [id number] cc: Jake Pepper MD; Lisette Graves NP [...] in OV> 03/20/251727 DD/ 26 TD/TT: 03/20/251726 Solar Manager: [place] [address] XRay Report Signed Patient: Miguel Nguyen MR#: [id number] 2742 : 1940 Acct:[id number] Age/Sex: 84 / M ADM Date: 03/20/25 Loc: .ED Attending Dr: Ordering Physician: Lisette Graves NP Date of Service: 03/20/25 Procedure(s): XR rhina st 2V Accession Number(s): [id number] cc: Jake Pepper MD; Lisette Graves NP [...] in OV> 03/20/251727 DD/ 26 TD/TT: 03/20/251726 Solar Manager: Troponin-I High Sensitivity Reviewed date:03/21/2025 07:31:34 PM Interpretation: Performing Lab:[facility], [address] [place] [phone] Notes/Report: Troponin-I High Sensitivity 24.4 <3.5-35.0 ng/L The Robert high sensitivity Troponin-I results should be used in conjunction with other diagnostic information such as ECG, clinical observations and information, and patient symptoms to aid in the diagnosis of [place]. Complete Blood Count Auto Di ff Reviewed date:03/21/2025 07:34:16 PM Interpretation: Performing Lab:[facility], [address] [place] [phone] Notes/Report: White Blood Count 6.6 4.8-10.8 X10*3/uL [...] INR Reviewed date:03/21/2025 07:32:30 PM Interpretation: Performing Lab:[facility], [address] [place] [phone] Notes/Report: Prothrombin Time 41.4 10.9-12.4 SEC INTERNATIONAL [...] Panel Reviewed date:03/21/2025 07:32:58 PM Interpretation: Performing Lab:[facility], [address] [place] [phone] Notes/Report: Sodium 142 135-145 mmol/L Potassium 3.4 [...] T4 Reviewed date:03/21/2025 07:31:25 PM Interpretation: Performing Lab:[facility], [address] [place] [phone] Notes/Report: TSH reflex Free T4 1.34 0.32-4.0 uIU/mL Respiratory Panel Reviewed date:03/21/2025 07:28:57 PM Interpretation: Performing Lab:[facility], [address] [place] [phone] Notes/Report: Adenovirus PCR Not Detected Not Detect. [...] be considered. Results reported to [facility]. This test has been authorized by the [...] is performed by Multiplexed PCR, utilizing the [employer] Array. Prothrombin Time INR Reviewed date:03/22/2025 11:40:38 AM Interpretation: Performing Lab:[address] [address] Notes/Report: Prothrombin Time 55.7 10.9-12.4 SEC INTERNATIONAL [...] Panel Reviewed date:03/22/2025 12:35:51 PM Interpretation: Performing Lab:[facility], [address] [place] [phone] Notes/Report: Sodium 138 135-145 mmol/L Potassium 4.1 [...] Random Reviewed date:03/22/2025 04:33:37 PM Interpretation: Performing Lab:[address] [address] Notes/Report: Vancomycin Random 13.0 15-20 mcg/mL Prothrombin Time INR Reviewed date:03/23/2025 10:14:22 AM Interpretation: Performing Lab:[address] [address] Notes/Report: Prothrombin Time 49.6 10.9-12.4 SEC INTERNATIONAL [...] Creatinine Reviewed date:03/23/2025 10:14:33 AM Interpretation: Performing Lab:[address] [address] Notes/Report: Creatinine 0.99 0.5-1.4 mg/dL Creatinine Clr [...] POC Reviewed date:04/01/2025 02:15:11 PM Interpretation: Performing Lab:[facility], [address] [place] [phone] Notes/Report: PT, INR - Anti Coag Clinic 5.4 0.9-1.1 METER #: [id number] Asymptomatic Cleaned Meter Doctor Notified INTERNATIONAL NORMALIZED [...] OC Reviewed date:04/01/2025 02:14:25 PM Interpretation: Performing Lab:[facility], [address] [place] [phone] Notes/Report: Prothrombin Time Whole Bld POC 65.0 11.1-13.5 sec INR WHOLE BLOOD POC Reviewed date:04/05/2025 01:00:12 PM Interpretation: Performing Lab:[facility], [address] [place] [phone] Notes/Report: PT, INR - Anti Coag Clinic 4.7 0.9-1.1 METER #: [id number] INTERNATIONAL NORMALIZED RATIO (INR) REFERENCE RANGES Reference [...] OC Reviewed date:04/05/2025 01:00:04 PM Interpretation: Performing Lab:[facility], [address] [place] [phone] Notes/Report: Prothrombin Time Whole Bld POC 55.9 11.1-13.5 sec INR WHOLE BLOOD POC Reviewed date:04/12/2025 12:38:27 PM Interpretation: Performing Lab:[facility], [address] [place] [phone] Notes/Report: PT, INR - Anti Coag Clinic 4.1 0.9-1.1 METER #: [id number] INTERNATIONAL NORMALIZED RATIO (INR) REFERENCE RANGES Reference [...] OC Reviewed date:04/12/2025 12:38:37 PM Interpretation: Performing Lab:[address] [phone] Notes/Report: Prothrombin Time Whole Bld POC 49.7 11.1-13.5 sec INR WHOLE BLOOD POC Reviewed date:04/15/2025 04:00:41 PM Interpretation: Performing Lab:[facility], [address] [place] [phone] Notes/Report: PT, INR - [facility] 4.2 0.9-1.1 METER #: [id number] INTERNATIONAL NORMALIZED RATIO (INR) REFERENCE RANGES Reference [...] OC Reviewed date:04/15/2025 04:00:48 PM Interpretation: Performing Lab:[address] [phone] Notes/Report: Prothrombin Time Whole Bld POC 50.7 11.1-13.5 sec INR WHOLE BLOOD POC Reviewed date:04/19/2025 01:36:50 PM Interpretation: Performing Lab:[address] [phone] Notes/Report: PT, INR - [facility] 2.7 0.9-1.1 METER #: [id number] INTERNATIONAL NORMALIZED RATIO (INR) REFERENCE RANGES Reference [...] OC Reviewed date:04/19/2025 01:36:41 PM Interpretation: Performing Lab:[facility], [address] [place] [phone] Notes/Report: Prothrombin Time Whole Bld POC 31.9 11.1-13.5 sec INR WHOLE BLOOD POC Reviewed date:04/27/2025 12:19:28 PM Interpretation: Performing Lab:[facility] [facility], [address] [place] [phone] Notes/Report: PT, INR - [facility] 2.4 0.9-1.1 METER #: [id number] INTERNATIONAL NORMALIZED RATIO (INR) REFERENCE RANGES Reference [...] OC Reviewed date:04/27/2025 12:19:14 PM Interpretation: Performing Lab:[facility], [address] [place] [phone] Notes/Report: Prothrombin Time Whole Bld POC 29.1 11.1-13.5 sec INR WHOLE BLOOD POC Reviewed date:05/11/2025 02:35:09 PM Interpretation: Performing Lab:[facility], [address] [place] [phone] Notes/Report: PT, INR - [facility] 1.4 0.9-1.1 METER #: [id number] Asymptomatic Doctor Notified INTERNATIONAL NORMALIZED RATIO (INR) [...] OC Reviewed date:05/11/2025 02:31:58 PM Interpretation: Performing Lab:[facility], [address] [place] [phone] Notes/Report: Prothrombin Time Whole Bld POC 16.7 11.1-13.5 sec INR WHOLE BLOOD POC Reviewed date:05/14/2025 04:20:53 PM Interpretation: Performing Lab:[facility], [address] [place] [phone] Notes/Report: PT, INR - [facility] 1.6 0.9-1.1 METER #: [id number] INTERNATIONAL NORMALIZED RATIO (INR) REFERENCE RANGES Reference [...] OC Reviewed date:05/14/2025 04:28:14 PM Interpretation: Performing Lab:[facility], [address] [place] [phone] Notes/Report: Prothrombin Time Whole Bld POC 19.6 11.1-13.5 sec INR WHOLE BLOOD POC Reviewed date:05/20/2025 12:36:55 PM Interpretation: Performing Lab:[facility], [address] [place] [phone] Notes/Report: PT, INR - [facility] 1.6 0.9-1.1 METER #: [id number] INTERNATIONAL NORMALIZED RATIO (INR) REFERENCE RANGES Reference [...] OC Reviewed date:05/20/2025 12:36:42 PM Interpretation: Performing Lab:[facility], [address] [place] [phone] Notes/Report: Prothrombin Time Whole Bld POC 19.8 11.1-13.5 sec INR WHOLE BLOOD POC Reviewed date:05/27/2025 12:31:20 PM Interpretation: Performing Lab:[address] [phone] Notes/Report: PT, INR - [facility] 1.8 0.9-1.1 METER #: [id number] INTERNATIONAL NORMALIZED RATIO (INR) REFERENCE RANGES Reference [...] OC Reviewed date:05/27/2025 12:31:13 PM Interpretation: Performing Lab:[address] [phone] Notes/Report: Prothrombin Time Whole Bld POC 21.4 11.1-13.5 sec Prostate Specific Antigen Reviewed date:06/03/2025 05:00:17 PM Interpretation: Performing Lab:[address] [phone] Notes/Report: Prostate Specific Antigen < 0.10 <0.05-4.0 ng/mL PSA methodology: Robert Alinity i Chemiluminescent Microparticle Immunoassay (CMIA) INR WHOLE BLOOD POC Reviewed date:06/04/2025 05:07:03 PM Interpretation: Performing Lab:[facility], [address] [place] [phone] Notes/Report: PT, INR - [facility] 2.1 0.9-1.1 METER #: [id number] INTERNATIONAL NORMALIZED RATIO (INR) REFERENCE RANGES Reference [...] OC Reviewed date:06/04/2025 06:43:58 PM Interpretation: Performing Lab:[facility], [address] [place] [phone] Notes/Report: Prothrombin Time Whole Bld POC 25.7 11.1-13.5 sec INR WHOLE BLOOD POC Reviewed date:06/11/2025 12:45:15 PM Interpretation: Performing Lab:[facility], [address] [place] [phone] Notes/Report: PT, INR - [facility] 1.9 0.9-1.1 METER #: [id number] INTERNATIONAL NORMALIZED RATIO (INR) REFERENCE RANGES Reference [...] OC Reviewed date:06/11/2025 12:45:05 PM Interpretation: Performing Lab:[facility], [address] [place] [phone] Notes/Report: Prothrombin Time Whole Bld POC 23.2 11.1-13.5 sec INR WHOLE BLOOD POC Reviewed date:06/18/2025 12:35:04 PM Interpretation: Performing Lab:[facility], [address] [place] [phone] Notes/Report: PT, INR - [facility] 2.8 0.9-1.1 METER #: [id number] INTERNATIONAL NORMALIZED RATIO (INR) REFERENCE RANGES Reference [...] OC Reviewed date:06/18/2025 12:35:12 PM Interpretation: Performing Lab:[address] [phone] Notes/Report: Prothrombin Time Whole Bld POC 33.9 11.1-13.5 sec INR WHOLE BLOOD POC Reviewed date:07/02/2025 10:07:21 AM Interpretation: Performing Lab:[facility], [address] [place] [phone] Notes/Report: PT, INR - [facility]ag Clinic 2.2 0.9-1.1 METER #: [id number] INTERNATIONAL NORMALIZED RATIO (INR) REFERENCE RANGES Reference [...] Prothrombin Time Whole Bld P OC Reviewed date:07/02/2025 10:07:35 AM Interpretation: Performing Lab:[address] [phone] Notes/Report: Prothrombin Time Whole Bld POC 26.1 11.1-13.5 sec Reason For Referral Reason please verito nguyen for for alf and any other services he made need Diagnosis 1 Atrial fibrillation, unspecified type (I48.91) Diagnosis 2 COPD without exacerb ation (J44.9) Diagnosis 3 Bilateral leg weakne ss (R29.898) Referral Organization Jake Pepper MD Referring Provider First Name Jake Referring Provider Last Name Evgeny Referring Provider Speciality Internal M edicine Referred Provider [facility], [facility] Referred Provider Specialty Unknown General Notes Minerva Duff 0 04/12/2025 11:55:29 AM > referral info faxed, Minerva Duff 04/12/2025 01:22:33 PM >this referral will not be used due to they do not take his insurance. Spoke with [facility] Montiel, she will be working on [...] hrs for 30 days 01/26/2013 Not-Taking Nystatin 162779 UNIT/GM 1 application Externally Twice a day [...] Orally On ce a day Not-Taking Nystatin 195968 UNIT/GM 1 application Externally Twice a day for 10 days 03/19/2025 Active Gabapentin 300 MG 1 capsule Orally twi ce a day for 30 days 04/05/2025 Active Zolpidem Tartrate 5 MG TAKE 1 TABLET BY MOUTH DAILY AT BEDTIME Orally Once a day for 30 days 06/10/2025 Active Doxycycline Monohydrate 100 MG 1 capsule Orally Once a day Not-Taking Nystatin-Triamcinolone 439899-0.1 UNIT/GM 1 application Externally Twice a day [...] Quadrivalent Unknown 08/05/2018 Administered At [facility] Influenza High Dose IM Intramuscular [...] Problem Status W/U Status Risk Notes Problem 29086739 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 Problem Insomnia (592506328) Insomnia (G47.00) Active confirmed Problem 9579172 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) Active confirmed Problem Cataract (532356803) Unspecified cataract (H26.9) Active confirmed Problem Conductive hearing loss, bilateral (758869930) Conductive hearing loss, 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) Active confirmed Problem 6026129 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) Active confirmed Problem 25159146 Essential hypert ension (I10) Active confirmed Problem 768273059 Prostate cancer (C61) Active confirme d Problem 7255421 Psoriasis (L40.9) Active confirmed Problem 747140585 Lung nodule (R91.1) Active confirmed Problem Low testosterone (043513509) Low testosterone (E29.1) Active confirmed Problem 4888047219395825 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 Problem 840634318 Lung nodules (R91.8) Active confirmed Problem 311797621 Cervical disc di sease (M50.90) Active confirmed Problem 444922402 Tension headache (G44.209) Active confirmed Problem 5754204 Former smoker (Z87.891) Active confirmed Problem Acute exacerbation of chronic obstructive airways disease (254882011) COPD exacerbation (J44.1) Active confirmed Problem Postherpetic neuralgia (0818322) Post herpetic neuralgia (B02.29) Active confirmed Problem 15554030 Dysthymia (F34.1) Active confirmed Problem Iron deficiency anemia (81227110) Iron deficiency anemia, unspecified iron deficiency anemia type (D50.9) Active confirmed Problem 27805926 Atrial fibrillat ion, unspecified type (I48.91) Active confirmed Problem 6061554 Urinary obstruct ion (N13.9) Active confirmed Problem Leukocytosis (428499194) Elevated WBC count (D72.829) Active confirmed Problem 09721921 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 confirmed Problem 783263692 Pure hypercholesterolemia (E78.00) Active confirmed Problem 567160309 BMI 30.0-30.9,ad ult (Z68.30) Active confirmed Problem 780137803 COPD with exacer bation (J44.1) Active confirmed Problem 673432209 Hypertensive cri sis (I16.9) Active confirmed Problem Gout (70173597) Acute gout, unspecified cause, unspecified site (M10.9) Active confirmed Problem 37796120 COPD without exacerbation (J44.9) Active confirmed Problem Gout (55988463) Acute gout of ri ght knee, unspecified cause (M10.9) Active confirmed Problem 140269609 Mixed conductive and sensorineural hearing loss of [...] Jake Pepper MD [address] [place] [address] [id number] 08/20/2024 Jake Pepper Pure hypercholestero lemia E78.00 Jake Pepper MD [address] [place] [address] [id number] 02/19/2025 Jake Pepper Blood tests for rout ine general physical examination Z00.00 ; Essential hypertension I10 ; Pure hypercholesterolemia E78.00 and Iron deficiency anemia, unspecified iron deficiency anemia type D50.9 Jake Pepper MD [address] [place] [address] [id number] 07/07/2024 Jake Pepper Tension headache G44 .209 Jake Pepper MD [address] [place] [address] [id number] 08/27/2024 Jake Pepper Essential hypertensi on I10 ; Pure hypercholesterolemia E78.00 ; Atrial fibrillation, unspecified type I48.91 and COPD without exacerbation J44.9 Jake Pepper MD [address] [place] [address] [id number] 01/22/2025 Jake Pepper Panlobular emphysema J43.1 ; Atrial fibrillation, unspecified type I48.91 and Unspecified cataract H26.9 Jake Pepper MD [address] [place] [address] [id number] 02/26/2025 Jake Pepper Essential hypertensi on I10 ; Annual physical exam Z00.00 ; Panlobular emphysema J43.1 ; Pure hypercholesterolemia E78.00 ; Dysthymia F34.1 ; Iron deficiency anemia, unspecified iron deficiency anemia type D50.9 and Depression screening Z13.31 Jake Pepper MD [address] [place] [address] [id number] 03/18/2025 Jake Pepper Thrush B37.0 Jake Pepper MD [address] [place] [address] [id number] 03/29/2025 Jake Pepper Essential hypertensi on I10 ; Panlobular emphysema J43.1 ; Shingles B02.9 and Thrush B37.0 Jake Pepper MD [address] [place] [address] [id number] 04/05/2025 Jake Pepper Post herpetic neural dung B02.29 ; Skin tear of right forearm without complication, initial encounter S51.801A ; Essential hypertension I10 and Atrial fibrillation, unspecified type I48.91 Jake Pepper MD [address] [place] [address] [id number] 04/20/2025 Jake Pepper Post herpetic neural dung B02.29 ; Skin tear of right forearm without complication, initial encounter S51.801A and Atrial fibrillation, unspecified type I48.91 Jake Pepper MD [address] [place] [address] [id number] 12/21/2024 Jake Pepper MD [address] [place] [address] [id number] 02/19/2025 Jake Pepper MD [address] [place] [address] [id number] 03/19/2025 Jake Pepper MD [address] [place] [address] [id number] 03/26/2025 Jaek Pepper MD [address] [place] [address] [id number] 04/01/2025 Jake Pepper MD [address] [place] [address] [id number] 04/13/2025 Jake Pepper MD [address] [place] [address] [id number] 05/07/2025 Jake Pepper MD [address] [place] [address] [id number] 05/11/2025 Jake Pepper MD [address] [place] [address] [id number] 07/07/2024 Jake Pepper Insomnia G47.00 Jake Pepper MD [address] [place] [address] [id number] 08/06/2024 Jake Bombardier Insomnia G47.00 Jake Pepper MD [address] [place] [address] [id number] 09/02/2024 Jake Bombardier Insomnia G47.00 Jake Pepper MD [address] [place] [address] [id number] 10/05/2024 Jake Bombardier Insomnia G47.00 Jake Pepper MD [address] [place] [address] [id number] 11/08/2024 Jake Bombardier Insomnia G47.00 Jake Pepper MD [address] [place] [address] [id number] 12/07/2024 Jake Bombardier Insomnia G47.00 Jake Pepper MD [address] [place] [address] [id number] 01/06/2025 Jake Bombardier Insomnia G47.00 Jake Pepper MD [address] [place] [address] [id number] 02/05/2025 Jake Bombardier Insomnia G47.00 Jake Pepper MD [address] [place] [address] [id number] 02/10/2025 Jake Pepper MD [address] [place] [address] [id number] 02/12/2025 Jake Pepper MD [address] [place] [address] [id number] 03/08/2025 Jake Bombardier Insomnia G47.00 Jake Pepper MD [address] [place] [address] [id number] 06/09/2025 Jake Bombardier Insomnia G47.00 Jake Pepper MD [address] [place] [address] [id number] 06/10/2025 Jake Velaardier Post herpetic neural dung [...] Provider Name:Jakebernabe Miller ier, 08/19/2025 07:00:00 AM, [address] [place] [address], Suite [facility] [place], [place], [phone], Provider Name:Jake Ruben Paul ier, 08/26/2025 10:00:00 AM, [address] [place] [address], [address] [facility] [place], [place], [id number], Provider Name:Jake Ruben Paul ier, 02/24/2026 07:15:00 AM, [address] [place] [address], [address] [facility] [place], [place], [phone], Provider Name:Jake Miller ier, 03/03/2026 09:30:00 AM, [address] [place] [address], [address] [facility] [place], [place], [id number], Insurance Providers Payer Name Payer Address Payer Phone Subscriber Number Group Number Insured Name Patient Relationship to Insured Coverage Start Date Coverage End Date [employer] [facility] [address] [place] [address] [id number] Kalyan Nguyen Self - patient is the insured MEDICARE [address] [place] [address] [id number] WendyKalyan Self - patient is the insured Medical (General) History Medical History History ICD Code 03/2004 - colonoscopy (repea t 10 years); colonoscopy [address] Rajput Smoker unmotivated to quit F17.210 biculatimide and finasteraide for prosta te cancer Surgical History Surgery Date(Month/Year) Repair of Umbilical Hernia w/Mesh (Dr. Darrell guido) 04/2019
--- OUTSIDE RECORDS SUMMARY | 2025-07-02 10:24 | XMS_ITS | Patient Health Record ---
Author Organization [facility] Address [address] [place] [phone] Care Team Providers Care Epic Kaleidoscope Analyst Name Role Phone Jake Pepper MD Primary Care Provider Luther Rajput Jr [facility] [phone] Allergies Allergen (clinical drug ingredient) Drug/Non [...] Problem Status W/U Status Risk Notes Problem 835280582 Colon cancer screening (V76.51) Active confirmed Problem 425134487 Aspirin long-term use (V58.66) Active confirmed Plan Of Treatment Future Test Test Name Order Date COLONOSCOPY 07/29/2014 Insurance Providers Payer Name Payer Address Payer Phone Subscriber Number Group Number Insured Name Patient Relationship to Insured Coverage Start Date Coverage End Date [facility] [address] [place] [phone] [id number] CORNELIA JUAREZ Self - patient is the [place] [address] [place] [address] [id number] CORNELIA JUAREZ Self - patient is the insured Medical (General) History Medical History History ICD Code prostate problems hypertension elevated cholesterol Surgical History Surgery Date(Month/Year) back surgery knee surgery
== END 2025-07-02 09:54 | disposition home or self-care (01) ==
LOC: HO.ACS 09:27
PROVIDERS: PCP Internal Medicine; Visit Provider Internal Medicine Medical Oncology
DX: Z79.01 Long term (current) use of anticoagulants (principal)

== ENCOUNTER → 2025-07-02 09:27 | Outpatient (BNVA) | payer MEDICARE, SELFPAY | PROVIDERS: PCP Internal Medicine; Visit Provider Internal Medicine Medical Oncology | DX: I48.0 Paroxysmal atrial fibrillation (principal); Z79.01 Long term (current) use of anticoagulants; Z51.81 Encounter for therapeutic drug level monitoring | CPT/HCPCS: 85610; 99211 ==

== ENCOUNTER 2025-07-23 09:30 | Outpatient (AMB) | payer MEDICARE, SELFPAY ==
--- OUTSIDE RECORDS SUMMARY | 2025-03-26 12:30 | XMS_ITS ---
Author Organization Jake Pepper MD Address [address] [place], [place] [id number] Care Team Providers Care Supervisor Ovens Name Role Phone Jake Pepper Primary Care Provider [phone] REASON FOR VISIT f/u thrush 1 week Encounters Encounter Location Date Provider Diagnosis Jake Pepper MD [address] [place], [place] [phone] 03/26/2025 Jake Pepper Plan Of Treatment Next Appt Details Provider Name:Jake schmidt, 08/19/2025 07:00:00 AM, [address], [address], [place], [place], [phone], Provider Name:Jake schmidt, 08/26/2025 10:00:00 AM, [address], [address], [place], [place], [id number], Provider Name:Jake Miller roxana, 02/24/2026 07:15:00 AM, [address], [address], [place], [id number], Provider Name:Jake Miller kenyar, 03/03/2026 09:30:00 AM, [address], [address], [place], [place], [id number], Progress Notes * Kalyan JUAREZ RDOB: [birth year] (84 yo M)Acc No.[id number]:03/26/2025 Progress Notes Patient: Kalyan KENNEDY Provider: Aly Pepper MD :[id number] A ge:84 Y S ex:Male Date:03/26/2025 Address:[address] [place], [place] [address]Mitesh CABALLERONISULA, MAOB-[id number] Subjective: * Chief Complaints: * 1 . F/u thrush 1 week. * Medical History: Objective: * Vitals: Assessment: Plan: * Treatment: * * The named appointment provid er may or may not be the originator of this progress note, and it is not deemed complete until electronically signed by the appointment provider. Sign off status: Pending * Provider: Aly Pepper MD Date: 0 03/26/2025 Generated for Mabel trotter/Ashish/Franciscoitting on: 10:39 AM EDT
--- OUTSIDE RECORDS SUMMARY | 2025-03-29 07:45 | XMS_ITS ---
Author Organization Jake Pepper MD Address [address] [place], [place] [phone] Care Team Providers Care Forging Machine Operator Name Role Phone Jake Pepper Primary [...] TABLET BY NIGEL EVERY DAY Active Nystatin 477632 UNIT/GM 1 application Externally Twice a day [...] CAPSULE BY MOUTH TWICE DAILY Active Nystatin 635594 UNIT/GM 1 application Externally Twice a day [...] 14 DAYS Oral for 14 Not-Taking Nystatin-Triamcinolone 251169-6.1 UNIT/GM 1 application Externally Twice a day [...] Date Provider Diagnosis Jake Pepper MD [address] [facility] [address] [place], [place] [phone] 03/29/2025 Jake Pepper Essential hypertension I10 ; [...] Provider Name:Jake schmidt, 08/19/2025 07:00:00 AM, [address] [facility], [address], [place], [place], [phone], Provider Name:Jake schmidt, 08/26/2025 10:00:00 AM, [address] [facility] [address], [address], [place], [place], [phone], Provider Name:Jake Miller ier, 02/24/2026 07:15:00 AM, [address] [facility], [address], [place], [place], [phone], Provider Name:Jake Miller ier, 03/03/2026 09:30:00 AM, [address] [facility], [address], [place], [place], [phone], Progress Notes * Kalyan JUAREZ RDOB: [birth year] (84 yo M)Acc No.[id number]:03/29/2025 Progress Notes Patient: Kalyan KENNEDY Provider: Aly Pepper MD :1940 A ge:84 Y S ex:Male Date:03/29/2025 Address:[address] [place] [address] [place], [id number] Subjective: * Chief Complaints: * F /U [...] 1 tablet Orally Once a day Nystatin 313680 UNIT/GM Ointment 1 application Externally Twice a [...] 150 MG Tablet 1 tablet Orally Nystatin 198999 UNIT/GM Cream 1 application Externally Twice a day Taking valACYclovir HCl 1 GM Tablet 1 tablet Orally Once a day Taking Doxycycline Monohydrate 100 MG Capsule 1 capsule Orally Once a day Taking Vitamin B12 1000 MCG Tablet Extended Release 1 tablet Orally Once a day Taking Nystatin 070784 UNIT/GM Ointment 1 application Externally Twice a [...] MG Tablet 1 tablet Orally Taking Nystatin 049693 UNIT/GM Cream 1 application Externally Twice a [...] 1 puff Inhalation Twice a day Nystatin-Triamcinolone 038709-3.1 UNIT/GM Cream 1 application Externally Twice a [...] puff Inhalation Twice a day Not-Taking/PRN Nystatin-Triamcinolone 722911-3.1 UNIT/GM Cream 1 application Externally Twice a [...] 0 03/29/2025 Generated for Mabel trotter/Ashish/Franciscoitting on: 1 10:37 AM EDT History and Physical Notes * [...]
--- OUTSIDE RECORDS SUMMARY | 2025-04-01 06:08 | XMS_ITS ---
Author Organization Jake Pepper MD Address [address] [place], [place] [phone] Care Team Providers Care Performance Architect Name Role Phone Jake Pepper Primary Care Provider [phone] REASON FOR VISIT INR5.4 Encounters Encounter Location Date Provider Diagnosis Jake Pepper MD [address] [place], [place] [phone] 04/01/2025 Jake Pepper Plan Of Treatment Next Appt Details Provider Name:Jake schmidt, 08/19/2025 07:00:00 AM, [address] [facility], Suite [facility], [place], [place], [id number], Provider Name:Jake schmidt, 08/26/2025 10:00:00 AM, [address], [address], [place], [phone], Provider Name:Jake Miller roxana, 02/24/2026 07:15:00 AM, [address] [facility] [address], [address], [place], [place], [address], Provider Name:Jake Miller kenyar, 03/03/2026 09:30:00 AM, [address] [facility] [address], [address], [place], [phone], Progress Notes * Kalyan JUAREZ RDOB: [birth year] (84 yo M)Acc No.[id number]:04/01/2025 Patient: Carmen VIRAMONTESKalyan :1940 A ge:84 Y S ex:Male Address:[address] [place] [address] [place] [address] * true * Date: Generated for Mabel trotter/Ashish/eTransmitting on: 10:37 AM EDT
--- OUTSIDE RECORDS SUMMARY | 2025-04-05 06:30 | XMS_ITS ---
Author Organization Jake Pepper MD Address [address] [place], [place] [phone] Care Team Providers Care Hazmat Cdl A Driver Name Role Phone Jake Pepper Primary [...] day for 30 days 04/05/2025 Active Nystatin-Triamcinolone 399574-1.1 UNIT/GM 1 application Externally Twice a day [...] Orally for 10 days 03/18/2025 Not-Taking Nystatin 523590 UNIT/GM 1 application Externally Twice a day for 10 days 03/19/2025 Active valACYclovir HCl 1 GM 1 tablet Orally On ce a day Active Ipratropium-Albuterol 0.5-2.5 (3) MG/3ML 3 ml as needed Inhalation every 6 hrs 10/30/2021 Active Vitamin B12 1000 MCG 1 tablet Orally Onc e a day for 30 day(s) Active Nystatin 380352 UNIT/GM 1 application Externally Twice a day [...] W/U Status Risk Notes Problem Postherpetic neuralgia (7195526) Post herpetic neuralgia (B02.29) Active confirmed Vital Signs Blood pressure systolic 104 mm Hg 04/05/20 25 Blood pressure diastolic 60 mm Hg 025 Height 65 in 04/05/2025 Weight 167 lbs 04/05/2025 BMI 27.79 kg/m2 04/05/2025 weight is down 2 pounds [facility] e 03-29-25 Encounters Encounter Location Date Provider Diagnosis Jake Pepper MD [address] [facility] [address] [place], [place] [phone] 04/05/2025 Jake Pepper Post herpetic neuralgia B02.29 [...] 07:00:00 AM, [address], [address], [place], [place], [phone], Provider Name:Jake Miller ier, 08/26/2025 10:00:00 AM, [address], [address], [place], [place], [phone], Provider Name:Jake Miller ier, 02/24/2026 07:15:00 AM, [address], [address], [place], [place], [phone], Provider Name:Jake Miller ier, 03/03/2026 09:30:00 AM, [address], [address], [place], [place], [phone], Progress Notes * Kalyan JUAREZ RDOB: [birth year] (84 yo M)Acc No.[id number]:04/05/2025 Progress Notes Patient: Kalyan KENNEDY Provider: Aly Pepper MD :1940 A ge:84 Y S ex:Male Date:04/05/2025 Address:[address] [place] [address] [place], [id number] Subjective: * Chief Complaints: * 1 WEEK [...] 1 tablet Orally Once a day Nystatin 295706 UNIT/GM Ointment 1 application Externally Twice a [...] AT BEDTIME Orally Once a day Nystatin 428010 UNIT/GM Cream 1 application Externally Twice a [...] tablet Orally Once a day Taking Nystatin 403377 UNIT/GM Ointment 1 application Externally Twice a [...] BEDTIME Orally Once a day Taking Nystatin 373292 UNIT/GM Cream 1 application Externally Twice a [...] 1 puff Inhalation Twice a day Nystatin-Triamcinolone 011283-7.1 UNIT/GM Cream 1 application Externally Twice a [...] puff Inhalation Twice a day Not-Taking/PRN Nystatin-Triamcinolone 105746-4.1 UNIT/GM Cream 1 application Externally Twice a [...] 0 04/05/2025 Generated for Mabel trotter/Ashish/eTransmitting on: 1 10:38 AM EDT History and Physical Notes * [...]
--- OUTSIDE RECORDS SUMMARY | 2025-04-13 10:39 | XMS_ITS ---
Author Organization Jake Pepper MD Address [address] [place] [phone] Care Team Providers Care Forest Resource Specialist Name Role Phone Jake Pepper Primary Care Provider [phone] Encounters Encounter Location Date Provider Diagnosis Jake Pepper MD [address] [facility] [address] [place], [place] [phone] 04/13/2025 Jake Pepper Plan Of Treatment Next Appt Details Provider Name:Jake schmidt, 08/19/2025 07:00:00 AM, [address] [place] [address], [address] [facility], [place], [place], [phone], Provider Name:Jake schmidt, 08/26/2025 10:00:00 AM, [address] [place] [address], [address], [place], [place], [phone], Provider Name:Jake Miller ier, 02/24/2026 07:15:00 AM, [address], [address], [place], [phone], Provider Name:Jake Miller ier, 03/03/2026 09:30:00 AM, [address], [address], [place], [phone], Progress Notes * Kalyan JUAREZ RDOB: [birth year] (84 yo M)Acc No.[id number]:04/13/2025 Patient: Carmen NELLSEANKalyan :1940 A ge:84 Y S ex:Male Address:[address] [place] [address] [place] [address] * true * Date: Generated for Mabel trotter/Ashish/eTransmitting on: 10:38 AM EDT
--- OUTSIDE RECORDS SUMMARY | 2025-04-20 06:00 | XMS_ITS ---
Author Organization Jake Pepper MD Address [address] [place], [place] [phone] Care Team Providers Care Illuminating Engineer Name Role Phone Jake Pepper Primary Care Provider [phone] Allergies Allergen (clinical drug ingredient) Drug/Non [...] CAPSULE BY MOUTH TWICE DAILY Active Nystatin 122107 UNIT/GM 1 application Externally Twice a day for 30 days 05/29/2022 Active Nystatin 414310 UNIT/GM 1 application Externally Twice a day [...] 14 DAYS Oral for 14 Not-Taking Nystatin-Triamcinolone 027386-6.1 UNIT/GM 1 application Externally Twice a day [...] Date Provider Diagnosis Jake Pepper MD [address] [place] [address] [place] [phone] 04/20/2025 Jake Pepper Post herpetic neuralgia B02.29 [...] Provider Name:Jake schmidt, 08/19/2025 07:00:00 AM, [address] [place] [address], [address] [place] [address], [phone], Provider Name:Jake schmidt, 08/26/2025 10:00:00 AM, [address] [place] [address], [address] [place] [address], [phone], Provider Name:Jake schmidt, 02/24/2026 07:15:00 AM, [address] [place] [address], [address], [phone], Provider Name:Jake Miller ier, 03/03/2026 09:30:00 AM, [address], [address], [place], [place], [phone], Progress Notes * Kalyan JUAREZ RDOB: [birth year] (84 yo M)Acc No.[id number]:04/20/2025 Progress Notes Patient: Kalyan KENNEDY Provider: Aly Pepper MD :1940 A ge:84 Y S ex:Male Date:04/20/2025 Address:[address] [place], [place] [address]Mitesh [place], [id number] Subjective: * Chief Complaints: * 2 WEEK [...] 1 tablet Orally Once a day Nystatin 705278 UNIT/GM Ointment 1 application Externally Twice a day Tamsulosin HCl 0.4 MG Capsule TAKE 1 CAPSULE BY MOUTH TWICE DAILY Atorvastatin Calcium 40 MG Tablet 1 tablet Orally Once a day Zolpidem Tartrate 5 MG Tablet TAKE 1 TABLET BY MOUTH DAILY AT BEDTIME Orally Once a day Nystatin 510675 UNIT/GM Cream 1 application Externally Twice a [...] tablet Orally Once a day Taking Nystatin 888273 UNIT/GM Ointment 1 application Externally Twice a day Taking Tamsulosin HCl 0.4 MG Capsule TAKE 1 CAPSULE BY MOUTH TWICE DAILY Taking Atorvastatin Calcium 40 MG Tablet 1 tablet Orally Once a day Taking Zolpidem Tartrate 5 MG Tablet TAKE 1 TABLET BY MOUTH DAILY AT BEDTIME Orally Once a day Taking Nystatin 901048 UNIT/GM Cream 1 application Externally Twice a [...] 1 puff Inhalation Twice a day Nystatin-Triamcinolone 875712-5.1 UNIT/GM Cream 1 application Externally Twice a [...] puff Inhalation Twice a day Not-Taking/PRN Nystatin-Triamcinolone 400016-2.1 UNIT/GM Cream 1 application Externally Twice a [...] 04/20/2025 Generated for Mabel trotter/Ashish/Franciscoitting on: 1 10:37 [...]
--- OUTSIDE RECORDS SUMMARY | 2025-05-07 06:44 | XMS_ITS ---
Author Organization Jake Pepper MD Address [address] [place], [place] [phone] Care Team Providers Care Shell Freezing Machine Operator Name Role Phone Jake Pepper Primary Care Provider REASON FOR VISIT RE GABAPENTIN Encounters Encounter Location Date Provider Diagnosis Jake Pepper MD [address] [facility] [address] [place], [place] [phone] 05/07/2025 Jake Pepper Plan Of Treatment Next Appt Details Provider Name:Jake schmidt, 08/19/2025 07:00:00 AM, [address] [place] [address], [address], [phone], Provider Name:Jake schmidt, 08/26/2025 10:00:00 AM, [address], [address], [place], [phone], Provider Name:Jake Miller kenyar, 02/24/2026 07:15:00 AM, [address] [facility] [address], [address], [place], [place], [phone], Provider Name:Jake Miller kenyar, 03/03/2026 09:30:00 AM, [address] [facility], [address], [place], [place], [phone], Progress Notes * Kalyan JUAREZ RDOB: [birth year] (84 yo M)Acc No.[id number]:05/07/2025 Patient: Carmen VIRAMONTESKalyan :1940 A ge:84 Y S ex:Male Address:[address] [place] [address] [place] [phone] * true * Date: Generated for Mabel trotter/Ashish/eTmartinsmitting on: 10:38 AM EDT
--- OUTSIDE RECORDS SUMMARY | 2025-05-11 06:57 | XMS_ITS ---
Author Organization Jake Pepper MD Address [address] [place], [place] [phone] Care Team Providers Care Medical Education Specialist Name Role Phone Jake Pepper Primary Care Provider [phone] REASON FOR VISIT INR of 1.4 Encounters Encounter Location Date Provider Diagnosis Jake Pepper MD [address] [place], [place] [phone] 05/11/2025 Jake Pepper Plan Of Treatment Next Appt Details Provider Name:Jake schmidt, 08/19/2025 07:00:00 AM, 10 [facility], Suite [facility], [place], [place], [phone], Provider Name:Jake schmidt, 08/26/2025 10:00:00 AM, [address], [address], [place], [phone], Provider Name:Jake Miller roxana, 02/24/2026 07:15:00 AM, [address] [facility] [address], [address], [place], [phone], Provider Name:Jake Miller roxana, 03/03/2026 09:30:00 AM, [address] [facility] [address], [address], [place], [phone], Progress Notes * Kalyan JUAREZ RDOB: [birth year] (84 yo M)Acc No.[id number]:05/11/2025 Patient: Carmen VIRAMONTESKalyan :1940 A ge:84 Y S ex:Male Address:[address] [place] [address] [place] [address] * true * Date: Generated for Mabel trotter/Ashish/eTransmitting on: 10:38 AM EDT
--- OUTSIDE RECORDS SUMMARY | 2025-06-09 05:00 | XMS_ITS ---
Author Organization Jake Pepper MD Address [address] [place] [phone] Care Team Providers Care Helium Arc Welder Name Role Phone Jake Pepper [...] Pepper MD [address] [place] [id number] 06/09/2025 Jake Pepper Insomnia G47.00 Assessments Encounter [...] Provider Name:Jake Miller ier, 08/19/2025 07:00:00 AM, [address] [place] [address], Suite [facility], [place], [place], [phone], Provider Name:Jake Miller ier, 08/26/2025 10:00:00 AM, [address] [place] [address], [place] [address], [place], [place], [phone], Provider Name:Jake Miller ier, 02/24/2026 07:15:00 AM, [address] [place] [address], [place] [address], [place], [place], [phone], Provider Name:Jake Miller kenyar, 03/03/2026 09:30:00 AM, [address] [place] [address], [place] [address], [place], [place], [phone], Progress Notes * Kalyan JUAREZ RDOB: [birth year] (84 yo M)Acc No.[id number]:06/09/2025 Patient: Carmen VIRAMONTESKalyan :1940 A ge:84 Y S ex:Male Address:[address] [place] [phone] * Refills Refill Zolpidem Tartrate Tablet, 5 MG, Orally, 30, TAKE 1 TABLET BY MOUTH DAILY AT BEDTIME, Once a day, 30 days, Refills=0 * true * Date: Generated for Mabel trotter/Ashish/Erikasmitting on: 1 10:37 AM EDT
--- OUTSIDE RECORDS SUMMARY | 2025-06-10 10:00 | XMS_ITS ---
Author Organization Jake Pepper MD Address [address] [place] [phone] Care Team Providers Care Machine Etcher Name Role Phone Jake Pepper Primary Care Provider [phone] REASON FOR VISIT New Refill Request Medications Medication SIG (Take, Route, Fr equency, Duration) Notes Start Date End Date Status Gabapentin 300 MG 1 capsule Orally twi ce a day for 30 days 04/05/2025 Active Encounters Encounter Location Date Provider Diagnosis Jake Pepper MD [address] [place] [phone] 06/10/2025 Jake Pepper Post herpetic neuralgia B02.29 [...] Provider Name:Jake Miller ier, 08/19/2025 07:00:00 AM, [address] [place] [address], Suite [facility], [place], [place], [phone], Provider Name:Jake Miller ier, 08/26/2025 10:00:00 AM, [address] [place] [address], Suite [facility], [place], [place], [phone], Provider Name:Jake Miller ier, 02/24/2026 07:15:00 AM, [address] [place] [address], Suite [facility], [place], [place], [phone], Provider Name:Jake Miller ier, 03/03/2026 09:30:00 AM, [address] [place] [address], [address], [phone], Progress Notes * Kalyan JUAREZ RDOB: [birth year] (84 yo M)Acc No.[id number]:06/10/2025 Patient: Carmen NELLSEANKalyan :1940 A ge:84 Y S ex:Male Address:[address] [place] [phone] * Refills Refill Gabapentin Capsule, 300 MG, Orally, 60 Capsule, 1 capsule, twice a day, 30 days * true * Date: Generated for Mabel trotter/Ashish/eTransmitting on: 1 10:39 AM EDT
[2025-07-23 09:43] LABS: Prothrombin Time Whole Bld POC 35.8 sec (11.1-13.5); ~PT, ~INR - Anti Coag Clinic 3.0 (0.9-1.1)
--- NOTE | 2025-07-23 09:45 | MHC.OFFVISCO ---
Intake Intake Visit Reasons: Anticoagulation Allergies pneumococcal vaccine (PNEUMOCOCCAL VACCINE) Allergy (Intermediate, Verified 07/23/25 09:35) RASH amoxicillin (From Augmentin) Allergy (Unknown, Verified 07/23/25 09:35) Swelling clavulanic acid (From Augmentin) Allergy (Unknown, Verified 07/23/25 09:35) Swelling theophylline Adverse Reaction (Intermediate, Verified 07/23/25 09:35) Loss of Appetite Medication List - Last Reconciled 07/23/25 by Imani Mckeon, GUSTABO albuterol sulfate 90 mcg/actuation 2 puffs PO Q2H PRN atorvastatin 40 mg PO DAILY carvedilol 6.25 mg PO BID cyanocobalamin (vitamin B-12) 1,000 mcg PO DAILY furosemide 60 mg (1.5 x 40 mg) PO DAILY gabapentin mg PO DAILY ipratropium-albuterol 0.5 mg-3 mg(2.5 mg base)/3 mL 3 mL inhalation TID multivitamin (One Daily Multivitamin tablet) 1 tab PO DAILY nystatin 1 appl topical BID tamsulosin 0.4 mg PO BID 90 days warfarin See Protocol 6mg X 5DAYS, 3MG X 2 DAYS orally, Take medication 1-2 tabs as directed per anticoagulation clinic based on your INR Nursing Note INR: 3.0 in therapeutic range of 2-3 Medications and supplements reviewed No changes in health, diet, medications, or supplements, Denies any signs and symptoms of bleeding or bruising or clotting. Bleeding, bruising, clotting discussed Nutritional guidance given to have a serving of greens today Dose: 6mg X 5 days and 9mg X 2 days (Tues & Fri) F/U INR: 4 weeks Patient verbalizes understanding of instructions given Anti-Coag Initial Assessment Social Hx Patient Tobacco Use Status: Former Tobacco user alcohol intake: never Alcohol intake frequency: 0-2 drinks per day Cardiovascular Hx: HTN, [place] and Arrhythmias Lung Disease HX: COPD Musculoskeletal Hx: Gout Blood Disorder Hx: Hyperlipidemia GI Hx: Hemorrhoids Hx: Kidney Disease and Prostate Cancer HX: Yes Psych. Illness/Depression: No Coding Level of Care Code Est Patient Level 1 Diagnoses Current use of anticoagulant therapy Z79.01 Assessment & Plan Assessment & Plan (1) Current use of anticoagulant therapy: Code(s): Z79.01 - intermediate (current) use of anticoagulants Category: Medical
--- OUTSIDE RECORDS SUMMARY | 2025-07-23 10:37 | XMS_ITS | Patient Health Record ---
Author Organization [facility] Address [address] [place] [phone] Care Team Providers Care Control Systems Technician Name Role Phone Jake Pepper MD Primary Care Provider Luther Rajput Jr [facility] Allergies Allergen (clinical drug ingredient) Drug/Non Drug [...] GM As directed Orally Over the specified time.; Duration: 1 day(s) 07/29/2014 Active Problems Problem Type SNOMED Code ICD Code Onset Dates Problem Status W/U Status Risk Notes Problem Colon cancer screening (410030755) Colon cancer screening (V76.51) Active confirmed Problem Long-term current use of aspirin (3194407019291 03) Aspirin long-term use (V58.66) Active confirmed Plan Of Treatment Future Test Test Name Order Date COLONOSCOPY 07/29/2014 Insurance Providers Payer Name Payer Address Payer Phone Subscriber Number Group Number Insured Name Patient Relationship to Insured Coverage Start Date Coverage End Date [facility] [address] [place] [phone] [id number] CORNELIA JUAREZ Self - patient is the [place] [address] [place] [address] [id number] CORNELIA JUAREZ Self - patient is the insured Medical (General) History Medical History History ICD Code prostate problems hypertension elevated cholesterol Surgical History Surgery Date(Month/Year) back surgery knee surgery
--- OUTSIDE RECORDS SUMMARY | 2025-07-23 10:39 | XMS_ITS | Patient Health Record ---
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 Name Role Phone Jake Pepper Primary Care Provider Allergies Allergen (clinical drug ingredient) Drug/Non Drug Allergy documented on EMR Reaction Allergy Type Onset Date Status Lamisil rash Drug Allergy Active Vaccine product containing Streptococcus pneumoniae antigen (medicinal product) Pneumovax (uncoded) local reaction redness Allergy Active Results Component Value Reference Range Notes Liver Panel Reviewed date:08/20/2024 03:17:01 PM Interpretation: Performing Lab:[facility], [address] [place] [phone] Notes/Report: Bilirubin Total 0.7 0.0-1.0 mg/dL Bilirubin Direct 0.3 0.0-0.5 mg/dL Aspartate Amino Transferase 42 5-37 U/L Alanine Aminotransferase 24 0-40 U/L Total Protein 7.3 6.5-8.0 g/dL Albumin Level 3.9 3.5-5.0 g/dL Alkaline Phosphatase 94 39-117 U/L Lipid Panel with Reflex Reviewed date:08/20/2024 03:16:31 PM Interpretation: Performing Lab:[facility], [address] [place] [phone] Notes/Report: Triglycerides 135 <150 mg/dL Desirable Triglyceride: [...] ff Reviewed date:02/21/2025 05:38:19 PM Interpretation: Performing Lab:[facility], [address] [place] [phone] Notes/Report: White Blood Count 10.0 4.8-10.8 X10*3/uL [...] NRBC Abs Auto 0.000 0.0-0.012 X10*3/uL Comprehensive [place]. Panel Fa st Reviewed date:02/21/2025 05:34:56 PM Interpretation: Performing Lab:[facility], [address] [place] [phone] Notes/Report: Sodium 143 135-145 mmol/L Potassium 3.8 [...] PROFILE Reviewed date:02/19/2025 12:44:54 PM Interpretation: Performing Lab:[address] [address] Notes/Report: Iron 63 45-160 mcg/dL Total Iron Binding Capacity 271 228-428 mcg/dL Percent Iron Saturation 23 15-50 % Unsaturated Iron Binding 208 Lipid Panel Reviewed date:02/19/2025 12:44:14 PM Interpretation: Performing Lab:[facility], [address] [place] [phone] Notes/Report: Triglycerides 129 <150 mg/dL Desirable Triglyceride: [...] (Free>4and<10) Reviewed date:02/19/2025 12:45:04 PM Interpretation: Performing Lab:[facility], [address] [place] [address] Notes/Report: PSA,Total (Free>4and<10) < 0.10 0.00-4.00 ng/mL [...] t Reviewed date:02/21/2025 05:39:18 PM Interpretation: Performing Lab:[facility], [address] [place] [phone] Notes/Report: Urine, Clean Catch Color Urine Dark Yellow Appearance Urine Clear PH 6.5 5.0-9.0 Glucose Urine UA Negative Negative mg/dL Urine Blood Negative Negative Specific [place] - Urine 1.025 1.005-1.025 Urine Protein 30 (1+) Neg-Trace mg/dL Urine Ketones Trace Negative mg/dL Nitrite Urine Negative Negative Leukocyte Esterase Urine Negative Negative RBC Urine 0-2 0-2 /HPF WBC Urine 0-5 0-5 /HPF Squamous Epithelial Cell Urine 0-2 0-2 /HPF Bacteria Urine None Seen None Seen Hyaline Casts Urine 0-2 0-2 /LPF INR WHOLE BLOOD POC Reviewed date:08/04/2024 12:06:47 PM Interpretation: Performing Lab:[facility], [address] [place] [phone] Notes/Report: PT, INR - Anti Coag Clinic 2.2 0.9-1.1 METER #: [id number] INTERNATIONAL NORMALIZED RATIO (INR) REFERENCE RANGES Reference [...] OC Reviewed date:08/04/2024 12:04:48 PM Interpretation: Performing Lab:[facility], [address] [place] [phone] Notes/Report: Prothrombin Time Whole Bld POC 25.9 11.1-13.5 sec Hold Gold Reviewed date:08/20/2024 12:43:27 PM Interpretation: Performing Lab:[facility], [address] [place] [phone] Notes/Report: Kari Gold See Note Specimen held untested for 24 hours; Call to request Chemistry testing. INR WHOLE BLOOD POC Reviewed date:08/25/2024 07:57:52 PM Interpretation: Performing Lab:[facility], [address] [place] [phone] Notes/Report: PT, INR - Anti Coag Clinic 2.1 0.9-1.1 METER #: [id number] INTERNATIONAL NORMALIZED RATIO (INR) REFERENCE RANGES Reference [...] OC Reviewed date:08/25/2024 07:57:59 PM Interpretation: Performing Lab:[facility], [address] [place] [phone] Notes/Report: Prothrombin Time Whole Bld POC 25.6 11.1-13.5 sec INR WHOLE BLOOD POC Reviewed date:09/15/2024 09:59:14 AM Interpretation: Performing Lab:[facility], [address] [place] [phone] Notes/Report: PT, INR - Anti Coag Clinic 3.0 0.9-1.1 METER #: [id number] INTERNATIONAL NORMALIZED RATIO (INR) REFERENCE RANGES Reference [...] OC Reviewed date:09/15/2024 12:33:10 PM Interpretation: Performing Lab:[facility], [address] [place] [phone] Notes/Report: Prothrombin Time Whole Bld POC 35.5 11.1-13.5 sec INR WHOLE BLOOD POC Reviewed date:10/06/2024 04:22:44 PM Interpretation: Performing Lab:[facility], [address] [place] [phone] Notes/Report: PT, INR - Anti Coag Clinic 2.0 0.9-1.1 METER #: [id number] INTERNATIONAL NORMALIZED RATIO (INR) REFERENCE RANGES Reference [...] OC Reviewed date:10/06/2024 04:22:36 PM Interpretation: Performing Lab:[facility], [address] [place] [phone] Notes/Report: Prothrombin Time Whole Bld POC 23.5 11.1-13.5 sec Prostate Specific Antigen Reviewed date:10/09/2024 11:16:46 AM Interpretation: Performing Lab:[facility], [address] [place] [phone] Notes/Report: Prostate Specific Antigen < 0.10 <0.05-4.0 ng/mL PSA methodology: Robert Alinity i Chemiluminescent Microparticle Immunoassay (CMIA) INR WHOLE BLOOD POC Reviewed date:10/27/2024 11:14:11 AM Interpretation: Performing Lab:[facility], [address] [place] [phone] Notes/Report: PT, INR - Anti Coag Clinic 2.0 0.9-1.1 METER #: [id number] INTERNATIONAL NORMALIZED RATIO (INR) REFERENCE RANGES Reference [...] OC Reviewed date:10/27/2024 11:14:04 AM Interpretation: Performing Lab:[facility], [address] [place] [phone] Notes/Report: Prothrombin Time Whole Bld POC 23.7 11.1-13.5 sec INR WHOLE BLOOD POC Reviewed date:11/10/2024 12:18:48 PM Interpretation: Performing Lab:[facility], [address] [place] [phone] Notes/Report: PT, INR - Anti Coag Clinic 1.8 0.9-1.1 METER #: [id number] INTERNATIONAL NORMALIZED RATIO (INR) REFERENCE RANGES Reference [...] OC Reviewed date:11/10/2024 12:18:37 PM Interpretation: Performing Lab:[facility], [address] [place] [phone] Notes/Report: Prothrombin Time Whole Bld POC 21.5 11.1-13.5 sec INR WHOLE BLOOD POC Reviewed date:11/24/2024 12:04:29 PM Interpretation: Performing Lab:[facility], [address] [place] [phone] Notes/Report: PT, INR - Anti Coag Clinic 2.4 0.9-1.1 METER #: [id number] INTERNATIONAL NORMALIZED RATIO (INR) REFERENCE RANGES Reference [...] OC Reviewed date:11/24/2024 12:04:21 PM Interpretation: Performing Lab:[facility], [address] [place] [phone] Notes/Report: Prothrombin Time Whole Bld POC 28.2 11.1-13.5 sec INR WHOLE BLOOD POC Reviewed date:12/17/2024 12:38:14 PM Interpretation: Performing Lab:[facility], [address] [place] [phone] Notes/Report: PT, INR - Anti Coag Clinic 2.0 0.9-1.1 METER #: [id number] INTERNATIONAL NORMALIZED RATIO (INR) REFERENCE RANGES Reference [...] OC Reviewed date:12/17/2024 12:51:29 PM Interpretation: Performing Lab:[facility], [address] [place] [phone] Notes/Report: Prothrombin Time Whole Bld POC 23.9 11.1-13.5 sec INR WHOLE BLOOD POC Reviewed date:01/07/2025 10:59:51 AM Interpretation: Performing Lab:[facility], [address] [place] [phone] Notes/Report: PT, INR - Anti Coag Clinic 2.2 0.9-1.1 METER #: [id number] INTERNATIONAL NORMALIZED RATIO (INR) REFERENCE RANGES Reference [...] OC Reviewed date:01/07/2025 10:59:22 AM Interpretation: Performing Lab:[facility], [address] [place] [phone] Notes/Report: Prothrombin Time Whole Bld POC 26.4 11.1-13.5 sec INR WHOLE BLOOD POC Reviewed date:02/04/2025 02:25:43 PM Interpretation: Performing Lab:[facility], [address] [place] [phone] Notes/Report: PT, INR - Anti Coag Clinic 3.3 0.9-1.1 METER #: [id number] INTERNATIONAL NORMALIZED RATIO (INR) REFERENCE RANGES Reference [...] OC Reviewed date:02/04/2025 11:35:29 AM Interpretation: Performing Lab:[facility], [address] [place] [phone] Notes/Report: Prothrombin Time Whole Bld POC 39.1 11.1-13.5 sec INR WHOLE BLOOD POC Reviewed date:03/04/2025 10:01:13 AM Interpretation: Performing Lab:[facility], [address] [place] [phone] Notes/Report: PT, INR - Anti Coag Clinic 2.6 0.9-1.1 METER #: [id number] INTERNATIONAL NORMALIZED RATIO (INR) REFERENCE RANGES Reference [...] OC Reviewed date:03/04/2025 10:01:06 AM Interpretation: Performing Lab:[facility], [address] [place] [phone] Notes/Report: Prothrombin Time Whole Bld POC 31.0 11.1-13.5 sec Complete Blood Count Auto Di ff Reviewed date:03/21/2025 07:34:37 PM Interpretation: Performing Lab:[facility], [address] [place] [phone] Notes/Report: White Blood Count 7.1 4.8-10.8 X10*3/uL [...] INR Reviewed date:03/21/2025 07:30:57 PM Interpretation: Performing Lab:[facility], [address] [place] [phone] Notes/Report: Prothrombin Time 30.9 10.9-12.4 SEC INTERNATIONAL [...] Microscopic Reviewed date:03/21/2025 07:33:45 PM Interpretation: Performing Lab:[facility], [address] [place] [phone] Notes/Report: Color Urine Yellow Appearance Urine Clear PH 6.5 5.0-9.0 Glucose Urine UA Negative Negative mg/dL Urine Blood Negative Negative Specific [place] - Urine >= 1.030 1.005-1.025 Urine Protein 100 (2+) Neg-Trace mg/dL Urine Ketones 15 Negative mg/dL Nitrite Urine Negative Negative Leukocyte Esterase Urine Negative Negative RBC Urine 0-2 0-2 /HPF WBC Urine 0-5 0-5 /HPF Squamous Epithelial Cell Urine 3-5 0-2 /HPF Bacteria Urine None Seen None Seen Hyaline Casts Urine 11-20 0-2 /LPF Comprehensive Met. Panel Reviewed date:03/21/2025 07:33:21 PM Interpretation: Performing Lab:[facility], [address] [place] [phone] Notes/Report: Sodium 143 135-145 mmol/L Potassium 3.8 [...] Acid Reviewed date:03/21/2025 07:30:17 PM Interpretation: Performing Lab:[facility], [address] [place] [phone] Notes/Report: Lactic Acid 0.9 0.5-2.0 mmol/L Magnesium Reviewed date:03/21/2025 07:31:06 PM Interpretation: Performing Lab:[facility], [address] [place] [phone] Notes/Report: Magnesium 1.9 1.6-2.6 mg/dL Troponin-I High Sensitivity Reviewed date:03/21/2025 07:30:47 PM Interpretation: Performing Lab:[facility], [address] [place] [phone] Notes/Report: Troponin-I High Sensitivity 29.0 <3.5-35.0 ng/L The Robert high sensitivity Troponin-I results should be used in conjunction with other diagnostic information such as ECG, clinical observations and information, and patient symptoms to aid in the diagnosis of [place]. B Type Natriuretic Peptide Reviewed date:03/21/2025 07:31:15 PM Interpretation: Performing Lab:[facility], [address] [place] [phone] Notes/Report: B Type Natriuretic Peptide 214 <100 pg/mL Gram stain Reviewed date:03/23/2025 10:18:58 AM Interpretation: Performing Lab:[facility], [address] [place] [phone] Notes/Report: Gram stain Gram stain results: Gram stain No polys Gram stain 2+ epithelial cells Gram stain 3+ Gram-positive cocci SARS-CoV2/FLU/RSV Reviewed date:03/21/2025 07:30:40 PM Interpretation: Performing Lab:[address] [address] Notes/Report: Influenza A PCR NEGATIVE Negative Influenza [...] by authorized laboratories. Testing performed on the ki work GeneXpert utilizing real-time RT-PCR. All SARS CoV2 and positive influenza A/B results are reported to [facility]. Blood Culture (First) Reviewed date:03/26/2025 04:21:01 PM Interpretation: Performing Lab:[address] [address] Notes/Report: Blood Culture (First) No growth after 5 days. Blood Culture (Second) Reviewed date:03/26/2025 04:21:09 PM Interpretation: Performing Lab:[address] [address] Notes/Report: Blood Culture (Second) No growth after 5 days. Venous Blood Gases - POC Reviewed date:03/21/2025 07:30:11 PM Interpretation: Performing Lab:[address] [address] Notes/Report: VBG pH 7.54 7.32-7.43 METER #: [id number] additional_comment: Sushant singh VBG pCO2 56 METER #: [id number] additional_comment: Sushant singh VBG pO2 56 METER #: [id number] additional_comment: Sushant singh VBG Base Excess 22.3 METER #: [id number] additional_comment: Sushant singh VBG HCO3 48 22-26 mmol/L METER #: [id number] additional_comment: Sushant singh VBG O2 % Saturation 88.0 METER #: [id number] additional_comment: Sushant singh Routine Culture Reviewed date:03/23/2025 10:20:42 AM Interpretation: Performing Lab:[facility], [address] [place] [phone] Notes/Report: Routine Culture Report - external Routine Culture 4+ Mixed skin ricci CT soft tissue neck w con Reviewed date:03/21/2025 07:30:02 PM Interpretation: Performing Lab: Notes/Report: [address] [address] [address] Scan Report Signed Patient: Kalyan Nguyen MR#: [id number] 2742 : 1940 Acct:[id number] Age/Sex: 84 / M ADM Date: 03/20/25 Loc: [facility]- Attending Dr: Zoraida Donovan MD Ordering Physician: Nilsa Card- Date of Service: 03/20/25 Procedure(s): CT soft tissue neck w IV con Accession Number(s): [id number] cc: Nilsa CardSTALIN; Jake Pepper MD Report Number: [id number]: Total DLP = 599.99 mGy-cm CLINICAL HISTORY: [...] in OV> 03/20/252104 DD/ 03 TD/TT: 03/20/252103 Marketing Automation Manager: [address] [address] [address] Scan Report Signed Patient: Miguel Nguyen MR#: [id number] 2742 : 1940 Acct:[id number] Age/Sex: 84 / M ADM Date: 03/20/25 Loc: [place] [address]: Zoraida Donovan MD [facility] Date of Service: 03/20/25 Procedure(s): CT sof t tissue neck w IV con Accession Number(s): [id number] cc: Nilsa CardSTALIN; Jake Pepper MD Report Number: [id number]: Total DLP = 599.99 mGy-cm CLINICAL HISTORY: [...] in OV> 03/20/252104 DD/ 03 TD/TT: 03/20/252103 Marketing Automation Manager: CT head/brain wo con Reviewed date:03/21/2025 07:29:22 PM Interpretation: Performing Lab: Notes/Report: [address] [address] [address] Scan Report Signed Patient: Kalyan Nguyen MR#: [id number] 2742 : 1940 Acct:[id number] Age/Sex: 84 / M ADM Date: 03/20/25 [facility] [place] [place] [address]: Zoraida Donovan MD [facility] Date of Service: 03/20/25 Procedure(s): CT head/brain wo IV con Accession Number(s): [id number] cc: Nilsa Card [facility]; Jake Pepper MD Report Number: [id number]: Total DLP = 914.64 mGy-cm CLINICAL HISTORY: [...] in OV> 03/20/252105 DD/ 04 TD/TT: 03/20/252104 Marketing Automation Manager: [address] [address] [address] Scan Report Signed Patient: Miguel Nguyen MR#: [id number] 2742 : 1940 Acct:[id number] Age/Sex: 84 / M ADM Date: 03/20/25 Loc: [facility]: Zoraida Donovan MD Ordering Physician: Nilsa Card [facility] Date of Service: 03/20/25 Procedure(s): CT head/brain wo IV con Accession Number(s): [id number] cc: Nilsa Card [facility]; Jake Pepper MD Report Number: [id number]: Total DLP = 914.64 mGy-cm CLINICAL HISTORY: [...] in OV> 03/20/252105 DD/ 04 TD/TT: 03/20/252104 Marketing Automation Manager: XR chest 2V Reviewed date:03/21/2025 07:32:02 PM Interpretation: Performing Lab: Notes/Report: [address] [address] XRay Report Signed Patient: Kalyan Nguyen MR#: [id number] 2742 : 1940 Acct:[id number] Age/Sex: 84 / M ADM Date: 03/20/25 Loc: [facility] Attending Dr: Ordering Physician: Lisette Graves NP Date of Service: 03/20/25 Procedure(s): XR chest 2V Accession Number(s): [id number] cc: Jake Pepper MD; Lisette Graves NP [...] in OV> 03/20/251727 DD/ 26 TD/TT: 03/20/251726 Marketing Automation Manager: [place] [address] XRay Report Signed Patient: Miguel Nguyen MR#: [id number] 2742 : 1940 Acct:[id number] Age/Sex: 84 / M ADM Date: 03/20/25 Loc: .[facility] Attending Dr: Ordering Physician: Lisette Graves NP Date of Service: 03/20/25 Procedure(s): XR rhina st 2V Accession Number(s): [id number] cc: Jake Pepper MD; Lisette Graves NP [...] in OV> 03/20/251727 DD/ 26 TD/TT: 03/20/251726 Marketing Automation Manager: Troponin-I High Sensitivity Reviewed date:03/21/2025 07:31:34 PM Interpretation: Performing Lab:[facility], [address] [place] [address] Notes/Report: Troponin-I High Sensitivity 24.4 <3.5-35.0 ng/L The Robert high sensitivity Troponin-I results should be used in conjunction with other diagnostic information such as ECG, clinical observations and information, and patient symptoms to aid in the diagnosis of [place]. Complete Blood Count Auto Di ff Reviewed date:03/21/2025 07:34:16 PM Interpretation: Performing Lab:[facility], [address] [place] [address] Notes/Report: White Blood Count 6.6 4.8-10.8 X10*3/uL [...] INR Reviewed date:03/21/2025 07:32:30 PM Interpretation: Performing Lab:[facility], [address] [place] [phone] Notes/Report: Prothrombin Time 41.4 10.9-12.4 SEC INTERNATIONAL [...] Panel Reviewed date:03/21/2025 07:32:58 PM Interpretation: Performing Lab:[facility], [address] [place] [address] Notes/Report: Sodium 142 135-145 mmol/L Potassium 3.4 [...] T4 Reviewed date:03/21/2025 07:31:25 PM Interpretation: Performing Lab:[facility], [address] [place] [phone] Notes/Report: TSH reflex Free T4 1.34 0.32-4.0 uIU/mL Respiratory Panel Reviewed date:03/21/2025 07:28:57 PM Interpretation: Performing Lab:[facility], [address] [place] [address] Notes/Report: Adenovirus PCR Not Detected Not Detect. [...] testing should be considered. Results reported to [facility]. This test has been authorized by [...] is performed by Multiplexed PCR, utilizing the [employer] Array. Prothrombin Time INR Reviewed date:03/22/2025 11:40:38 AM Interpretation: Performing Lab:[address] [address] Notes/Report: Prothrombin Time 55.7 10.9-12.4 SEC INTERNATIONAL [...] Panel Reviewed date:03/22/2025 12:35:51 PM Interpretation: Performing Lab:[facility], [address] [place] [address] Notes/Report: Sodium 138 135-145 mmol/L Potassium 4.1 [...] Random Reviewed date:03/22/2025 04:33:37 PM Interpretation: Performing Lab:[address] [address] Notes/Report: Vancomycin Random 13.0 15-20 mcg/mL Prothrombin Time INR Reviewed date:03/23/2025 10:14:22 AM Interpretation: Performing Lab:[facility], [address] [place] [address] Notes/Report: Prothrombin Time 49.6 10.9-12.4 SEC INTERNATIONAL [...] Creatinine Reviewed date:03/23/2025 10:14:33 AM Interpretation: Performing Lab:[address] [address] Notes/Report: Creatinine 0.99 0.5-1.4 mg/dL Creatinine Clr [...] POC Reviewed date:04/01/2025 02:15:11 PM Interpretation: Performing Lab:[facility], [address] [place] [phone] Notes/Report: PT, INR - Anti Coag Clinic 5.4 0.9-1.1 METER #: [id number] Asymptomatic Cleaned Meter Doctor Notified INTERNATIONAL NORMALIZED [...] OC Reviewed date:04/01/2025 02:14:25 PM Interpretation: Performing Lab:[facility], [address] [place] [phone] Notes/Report: Prothrombin Time Whole Bld POC 65.0 11.1-13.5 sec INR WHOLE BLOOD POC Reviewed date:04/05/2025 01:00:12 PM Interpretation: Performing Lab:[facility], [address] [place] [address] Notes/Report: PT, INR - Anti Coag Clinic 4.7 0.9-1.1 METER #: [id number] INTERNATIONAL NORMALIZED RATIO (INR) REFERENCE RANGES Reference [...] OC Reviewed date:04/05/2025 01:00:04 PM Interpretation: Performing Lab:[facility], [address] [place] [address] Notes/Report: Prothrombin Time Whole Bld POC 55.9 11.1-13.5 sec INR WHOLE BLOOD POC Reviewed date:04/12/2025 12:38:27 PM Interpretation: Performing Lab:[facility], [address] [place] [address] Notes/Report: PT, INR - Anti Coag Clinic 4.1 0.9-1.1 METER #: [id number] INTERNATIONAL NORMALIZED RATIO (INR) REFERENCE RANGES Reference [...] OC Reviewed date:04/12/2025 12:38:37 PM Interpretation: Performing Lab:[facility], [address] [place] [phone] Notes/Report: Prothrombin Time Whole Bld POC 49.7 11.1-13.5 sec INR WHOLE BLOOD POC Reviewed date:04/15/2025 04:00:41 PM Interpretation: Performing Lab:[facility], [address] [place] [phone] Notes/Report: PT, INR - Anti Coag Clinic 4.2 0.9-1.1 METER #: [id number] INTERNATIONAL NORMALIZED RATIO (INR) REFERENCE RANGES Reference [...] OC Reviewed date:04/15/2025 04:00:48 PM Interpretation: Performing Lab:[facility], [address] [place] [phone] Notes/Report: Prothrombin Time Whole Bld POC 50.7 11.1-13.5 sec INR WHOLE BLOOD POC Reviewed date:04/19/2025 01:36:50 PM Interpretation: Performing Lab:[facility], [address] [place] [phone] Notes/Report: PT, INR - Anti Coag Clinic 2.7 0.9-1.1 METER #: [id number] INTERNATIONAL NORMALIZED RATIO (INR) REFERENCE RANGES Reference [...] OC Reviewed date:04/19/2025 01:36:41 PM Interpretation: Performing Lab:[address] [address] Notes/Report: Prothrombin Time Whole Bld POC 31.9 11.1-13.5 sec INR WHOLE BLOOD POC Reviewed date:04/27/2025 12:19:28 PM Interpretation: Performing Lab:[facility], [address] [place] [phone] Notes/Report: PT, INR - Anti Coag Clinic 2.4 0.9-1.1 METER #: [id number] INTERNATIONAL NORMALIZED RATIO (INR) REFERENCE RANGES Reference [...] OC Reviewed date:04/27/2025 12:19:14 PM Interpretation: Performing Lab:[address] [address] Notes/Report: Prothrombin Time Whole Bld POC 29.1 11.1-13.5 sec INR WHOLE BLOOD POC Reviewed date:05/11/2025 02:35:09 PM Interpretation: Performing Lab:[address] [phone] Notes/Report: PT, INR - [facility] 1.4 0.9-1.1 METER #: [id number] Asymptomatic Doctor Notified INTERNATIONAL NORMALIZED RATIO (INR) [...] OC Reviewed date:05/11/2025 02:31:58 PM Interpretation: Performing Lab:[facility], [address] [place] [phone] Notes/Report: Prothrombin Time Whole Bld POC 16.7 11.1-13.5 sec INR WHOLE BLOOD POC Reviewed date:05/14/2025 04:20:53 PM Interpretation: Performing Lab:[facility], [address] [place] [phone] Notes/Report: PT, INR - [facility] 1.6 0.9-1.1 METER #: [id number] INTERNATIONAL NORMALIZED RATIO (INR) REFERENCE RANGES Reference [...] OC Reviewed date:05/14/2025 04:28:14 PM Interpretation: Performing Lab:[facility], [address] [place] [phone] Notes/Report: Prothrombin Time Whole Bld POC 19.6 11.1-13.5 sec INR WHOLE BLOOD POC Reviewed date:05/20/2025 12:36:55 PM Interpretation: Performing Lab:[facility], [address] [place] [phone] Notes/Report: PT, INR - [facility] 1.6 0.9-1.1 METER #: [id number] INTERNATIONAL NORMALIZED RATIO (INR) REFERENCE RANGES Reference [...] OC Reviewed date:05/20/2025 12:36:42 PM Interpretation: Performing Lab:[facility], [address] [place] [phone] Notes/Report: Prothrombin Time Whole Bld POC 19.8 11.1-13.5 sec INR WHOLE BLOOD POC Reviewed date:05/27/2025 12:31:20 PM Interpretation: Performing Lab:[facility], [address] [place] [place] [phone] Notes/Report: PT, INR - [facility] 1.8 0.9-1.1 METER #: [id number] INTERNATIONAL NORMALIZED RATIO (INR) REFERENCE RANGES Reference [...] OC Reviewed date:05/27/2025 12:31:13 PM Interpretation: Performing Lab:[facility], [address] [place] [phone] Notes/Report: Prothrombin Time Whole Bld POC 21.4 11.1-13.5 sec Prostate Specific Antigen Reviewed date:06/03/2025 05:00:17 PM Interpretation: Performing Lab:[facility], [address] [place] [phone] Notes/Report: Prostate Specific Antigen < 0.10 <0.05-4.0 ng/mL PSA methodology: Bluelocknity i Chemiluminescent Microparticle Immunoassay (CMIA) INR WHOLE BLOOD POC Reviewed date:06/04/2025 05:07:03 PM Interpretation: Performing Lab:[facility], [address] [place] [phone] Notes/Report: PT, INR - [facility] 2.1 0.9-1.1 METER #: [id number] INTERNATIONAL NORMALIZED RATIO (INR) REFERENCE RANGES Reference [...] OC Reviewed date:06/04/2025 06:43:58 PM Interpretation: Performing Lab:[facility], [address] [place] [phone] Notes/Report: Prothrombin Time Whole Bld POC 25.7 11.1-13.5 sec INR WHOLE BLOOD POC Reviewed date:06/11/2025 12:45:15 PM Interpretation: Performing Lab:[facility], [address] [place] [phone] Notes/Report: PT, INR - [facility] 1.9 0.9-1.1 METER #: [id number] INTERNATIONAL NORMALIZED RATIO (INR) REFERENCE RANGES Reference [...] OC Reviewed date:06/11/2025 12:45:05 PM Interpretation: Performing Lab:[facility], [address] [place] [phone] Notes/Report: Prothrombin Time Whole Bld POC 23.2 11.1-13.5 sec INR WHOLE BLOOD POC Reviewed date:06/18/2025 12:35:04 PM Interpretation: Performing Lab:[facility], [address] [place] [phone] Notes/Report: PT, INR - [facility] 2.8 0.9-1.1 METER #: [id number] INTERNATIONAL NORMALIZED RATIO (INR) REFERENCE RANGES Reference [...] OC Reviewed date:06/18/2025 12:35:12 PM Interpretation: Performing Lab:[facility], [address] [place] [phone] Notes/Report: Prothrombin Time Whole Bld POC 33.9 11.1-13.5 sec INR WHOLE BLOOD POC Reviewed date:07/02/2025 10:07:21 AM Interpretation: Performing Lab:[facility], [address] [place] [phone] Notes/Report: PT, INR - [facility] 2.2 0.9-1.1 METER #: [id number] INTERNATIONAL NORMALIZED RATIO (INR) REFERENCE RANGES Reference [...] OC Reviewed date:07/02/2025 10:07:35 AM Interpretation: Performing Lab:[facility], [address] [place] [phone] Notes/Report: Prothrombin Time Whole Bld POC 26.1 11.1-13.5 sec INR WHOLE BLOOD POC (Not yet reviewed by provider) Interpretation: Performing Lab:[facility], [address] [place] [phone] Notes/Report: PT, INR - [facility] 3.0 0.9-1.1 METER #: [id number] INTERNATIONAL NORMALIZED RATIO (INR) REFERENCE RANGES Reference [...] (Not yet reviewed by provider) Interpretation: Performing Lab:[facility], [address] [place] [phone] Notes/Report: Prothrombin Time Whole Bld POC 35.8 11.1-13.5 sec Reason For Referral Reason please verito nguyen for for senior care and any other services he made need Diagnosis 1 Atrial fibrillation, unspecified type (I48.91) Diagnosis 2 COPD without exacerb ation (J44.9) Diagnosis 3 Bilateral leg weakne ss (R29.898) Referral Organization Jake Pepper MD Referring Provider First Name Jake Referring Provider Last Name Evgeny Referring Provider Speciality Internal M edicine Ref[facility]erred Provider Specialty Unknown General Notes Minerva Duff 0 04/12/2025 11:55:29 AM > referral info faxed, Minerva Duff 04/12/2025 01:22:33 PM >this referral will not be used due to they do not take his insurance. Spoke with [facility], she will be working on getting [facility] services. Referral Priority Routine Medications Medication SIG [...] hrs for 30 days 01/26/2013 Not-Taking Nystatin 069721 UNIT/GM 1 application Externally Twice a day [...] Orally On ce a day Not-Taking Nystatin 078877 UNIT/GM 1 application Externally Twice a day for 10 days 03/19/2025 Active Gabapentin 300 MG 1 capsule Orally twi ce a day for 30 days 04/05/2025 Active Zolpidem Tartrate 5 MG TAKE 1 TABLET BY MOUTH DAILY AT BEDTIME Orally Once a day for 30 days 06/10/2025 Active Doxycycline Monohydrate 100 MG 1 capsule Orally Once a day Not-Taking Nystatin-Triamcinolone 626705-6.1 UNIT/GM 1 application Externally Twice a day [...] Problem Status W/U Status Risk Notes Problem 38683833 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 Problem Insomnia (855805013) Insomnia (G47.00) Active confirmed Problem 1752149 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) Active confirmed Problem Cataract (729888877) Unspecified cataract (H26.9) Active confirmed Problem Conductive hearing loss, bilateral (828938377) Conductive hearing loss, 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) Active confirmed Problem 3450601 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) Active confirmed Problem 36437531 Essential hypert ension (I10) Active confirmed Problem 345721834 Prostate cancer (C61) Active confirme d Problem 8482109 Psoriasis (L40.9) Active confirmed Problem 919897372 Lung nodule (R91.1) Active confirmed Problem Low testosterone (528582450) Low testosterone (E29.1) Active confirmed Problem 7746335919191182 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 Problem 792018804 Lung nodules (R91.8) Active confirmed Problem 590600944 Cervical disc di sease (M50.90) Active confirmed Problem 788111150 Tension headache (G44.209) Active confirmed Problem 8175045 Former smoker (Z87.891) Active confirmed Problem Acute exacerbation of chronic obstructive airways disease (356064945) COPD exacerbation (J44.1) Active confirmed Problem Postherpetic neuralgia (3378514) Post herpetic neuralgia (B02.29) Active confirmed Problem 57220282 Dysthymia (F34.1) Active confirmed Problem Iron deficiency anemia (85085585) Iron deficiency anemia, unspecified iron deficiency anemia type (D50.9) Active confirmed Problem 92156097 Atrial fibrillat ion, unspecified type (I48.91) Active confirmed Problem 2718391 Urinary obstruct ion (N13.9) Active confirmed Problem Leukocytosis (247949682) Elevated WBC count (D72.829) Active confirmed Problem 61478285 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 confirmed Problem 953376345 Pure hypercholesterolemia (E78.00) Active confirmed Problem 666536815 BMI 30.0-30.9,ad ult (Z68.30) Active confirmed Problem 976976876 COPD with exacer bation (J44.1) Active confirmed Problem 990602429 Hypertensive cri sis (I16.9) Active confirmed Problem Gout (76767694) Acute gout, unspecified cause, unspecified site (M10.9) Active confirmed Problem 10932882 COPD without exacerbation (J44.9) Active confirmed Problem Gout (90533118) Acute gout of ri ght knee, unspecified cause (M10.9) Active confirmed Problem 222363411 Mixed conductive and sensorineural hearing loss of [...] Pepper MD [address] [place] [address] [id number] 08/20/2024 Jake Pepper Pure hypercholestero lemia E78.00 Jake Pepper MD [address] [place] [address] [id number] 02/19/2025 Jake Pepper Blood tests for rout ine general physical examination Z00.00 ; Essential hypertension I10 ; Pure hypercholesterolemia E78.00 and Iron deficiency anemia, unspecified iron deficiency anemia type D50.9 Jake Pepper MD [address] [place] [address] [id number] 08/27/2024 Jake Pepper Essential hypertensi on I10 ; Pure hypercholesterolemia E78.00 ; Atrial fibrillation, unspecified type I48.91 and COPD without exacerbation J44.9 Jake Pepper MD [address] [place] [address] [id number] 01/22/2025 Jake Pepper Panlobular emphysema J43.1 ; Atrial fibrillation, unspecified type I48.91 and Unspecified cataract H26.9 Jake Pepper MD [address] [place] [address] [id number] 02/26/2025 Jake Pepper Essential hypertensi on I10 ; Annual physical exam Z00.00 ; Panlobular emphysema J43.1 ; Pure hypercholesterolemia E78.00 ; Dysthymia F34.1 ; Iron deficiency anemia, unspecified iron deficiency anemia type D50.9 and Depression screening Z13.31 Jake Pepper MD [address] [place] [address] [id number] 03/18/2025 Jake Pepper Thrush B37.0 Jake Pepper MD [address] [place] [address] [id number] 03/29/2025 Jake Pepper Essential hypertensi on I10 ; Panlobular emphysema J43.1 ; Shingles B02.9 and Thrush B37.0 Jake Pepper MD [address] [place] [address] [id number] 04/05/2025 Jake Pepper Post herpetic neural dung B02.29 ; Skin tear of right forearm without complication, initial encounter S51.801A ; Essential hypertension I10 and Atrial fibrillation, unspecified type I48.91 Jake Pepper MD [address] [place] [address] [id number] 04/20/2025 Jake Pepper Post herpetic neural dung B02.29 ; Skin tear of right forearm without complication, initial encounter S51.801A and Atrial fibrillation, unspecified type I48.91 Jake Pepper MD [address] [place] [address] [id number] 12/21/2024 Jake Pepper MD [address] [place] [address] [id number] 02/19/2025 Jake Pepper MD [address] [place] [address] [id number] 03/19/2025 Jake Pepper MD [address] [place] [address] [id number] 03/26/2025 Jake Pepper MD [address] [place] [address] [id number] 04/01/2025 Jake Pepper MD [address] [place] [address] [id number] 04/13/2025 Jake Pepper MD [address] [place] [address] [id number] 05/07/2025 Jake Pepper MD [address] [place] [address] [id number] 05/11/2025 Jake Pepper MD [address] [place] [address] [id number] 08/06/2024 Jake Pepper Insomnia G47.00 Jake Pepper MD [address] [place] [address] [id number] 09/02/2024 Jake Pepper Insomnia G47.00 Jake Pepper MD [address] [place] [address] [id number] 10/05/2024 Jake Pepper Insomnia G47.00 Jake Pepper MD [address] [place] [address] [id number] 11/08/2024 Jaek Pepper Insomnia G47.00 Jake Pepper MD [address] [place] [address] [id number] 12/07/2024 Jake Pepper Insomnia G47.00 Jake Pepper MD [address] [place] [address] [id number] 01/06/2025 Jake Pepper Insomnia G47.00 Jake Pepper MD [address] [place] [address] [id number] 02/05/2025 Jake Pepper Insomnia G47.00 Jake Pepper MD [address] [place] [address] [id number] 02/10/2025 Jake Pepper MD [address] [place] [address] [id number] 02/12/2025 Jake Pepper MD [address] [place] [address] [id number] 03/08/2025 Jake Pepper Insomnia G47.00 Jake Pepper MD [address] [place] [address] [id number] 06/09/2025 Jake Pepper Insomnia G47.00 Jake Pepper MD [address] [place] [address] [id number] 06/10/2025 Jake Pepper Post herpetic neural dung B02.29 Assessments Encounter Date Diagnosis (ICD Code) Assessment Notes Treatment Notes Treatment Clinical Notes Section Notes 08/20/2024 Pure hypercholesterolemia (ICD-10 - E78.00) 02/19/[address] ine general physical examination (ICD-10 - Z00.00) 02/19/2025 Essential hypertensi on (ICD-10 - I10) 08/27/2024 Essential hypertensi on (ICD-10 - I10) [...] tolerating the gabapentin, will continue current regiment 08/06/2024 Insomnia (ICD-10 - G47.00) 09/02/2024 Insomnia [...] 10/15/2022 Folate 02/09/2021 INR WHOLE BLOOD POC 07/23/2025 Prothrombin Time Whole Bld POC Future Test Test Name Order Date CT chest wo con 02/04/2023 Next Appt Details Provider Name:Jake zambranor, 08/19/2025 07:00:00 AM, [address] [place] [address], [address], [phone], Provider Name:Jake zambranor, 08/26/2025 10:00:00 AM, [address] [place] [address], [address], [phone], Provider Name:Jake zambranor, 02/24/2026 07:15:00 AM, [address] [place] [address], [address], [phone], Provider Name:Jake zambranor, 03/03/2026 09:30:00 AM, [address] [place] [address], [address], [phone], Insurance Providers Payer Name Payer Address Payer Phone Subscriber Number Group Number Insured Name Patient Relationship to Insured Coverage Start Date Coverage End Date [employer] [facility] [address] [place] [phone] [id number] Kalyan Nguyen Self - patient is the insured [employer] [address] [place] [address] [id number] Kalyan Nguyen Self - patient is the insured Medical (General) History Medical History History ICD Code 03/2004 - colonoscopy (repea t 10 years); colonoscopy [address] Rajput Smoker unmotivated to quit F17.210 biculatimide and finasteraide for prosta te cancer Surgical History Surgery Date(Month/Year) Repair of Umbilical Hernia w/Mesh (Dr. Darrell guido) 04/2019
== END 2025-07-23 09:55 | disposition home or self-care (01) ==
LOC: HO.ACS 09:30
PROVIDERS: PCP Internal Medicine; Visit Provider Internal Medicine Medical Oncology
DX: Z79.01 Long term (current) use of anticoagulants (principal)

== ENCOUNTER → 2025-07-23 09:30 | Outpatient (BNVA) | payer MEDICARE, SELFPAY | PROVIDERS: PCP Internal Medicine; Visit Provider Internal Medicine Medical Oncology | DX: I48.0 Paroxysmal atrial fibrillation (principal); Z79.01 Long term (current) use of anticoagulants; Z51.81 Encounter for therapeutic drug level monitoring | CPT/HCPCS: 85610; 99211 ==

== ENCOUNTER 2025-08-13 09:32 | Outpatient (AMB) | payer MEDICARE, SELFPAY ==
--- OUTSIDE RECORDS SUMMARY | 2025-03-29 06:45 | XMS_ITS ---
Author Organization Jake Pepper MD Address [address] [place], [place] [phone] Care Team Providers Care Scouring Train Operator Name Role Phone Jake Pepper Primary [...] TABLET BY NIGEL EVERY DAY Active Nystatin 412864 UNIT/GM 1 application Externally Twice a day [...] CAPSULE BY MOUTH TWICE DAILY Active Nystatin 437460 UNIT/GM 1 application Externally Twice a day [...] 14 DAYS Oral for 14 Not-Taking Nystatin-Triamcinolone 710886-5.1 UNIT/GM 1 application Externally Twice a day [...] Date Provider Diagnosis Jake Pepper MD [address] [facility] [address] [place], [place] [phone] 03/29/2025 Jake Pepper Essential hypertension I10 ; [...] resolved Next Appt Details Provider Name:Jake schmidt, 08/19/2025 07:00:00 AM, [address] [facility], [address], [place], [place], [phone], Provider Name:Jake schmidt, 08/26/2025 10:00:00 AM, [address] [facility] [address], [address], [place], [place], [phone], Provider Name:Jake Miller ier, 02/24/2026 07:15:00 AM, [address] [facility], [address], [place], [place], [phone], Provider Name:Jake Miller ier, 03/03/2026 09:30:00 AM, [address] [facility], [address], [place], [place], [phone], Progress Notes * Kalyan JUAREZ RDOB: [birth year] (84 yo M)Acc No.[id number]:03/29/2025 Progress Notes Patient: Kalyan KENNEDY Provider: Aly Pepper MD :1940 A ge:84 Y S ex:Male Date:03/29/2025 Address:[address] [place] [address] ALAYNAPATERSON, [id number] Subjective: * Chief Complaints: * F /U [...] 1 tablet Orally Once a day Nystatin 165014 UNIT/GM Ointment 1 application Externally Twice a [...] 150 MG Tablet 1 tablet Orally Nystatin 396739 UNIT/GM Cream 1 application Externally Twice a day Taking valACYclovir HCl 1 GM Tablet 1 tablet Orally Once a day Taking Doxycycline Monohydrate 100 MG Capsule 1 capsule Orally Once a day Taking Vitamin B12 1000 MCG Tablet Extended Release 1 tablet Orally Once a day Taking Nystatin 177861 UNIT/GM Ointment 1 application Externally Twice a [...] MG Tablet 1 tablet Orally Taking Nystatin 916779 UNIT/GM Cream 1 application Externally Twice a [...] 1 puff Inhalation Twice a day Nystatin-Triamcinolone 323024-0.1 UNIT/GM Cream 1 application Externally Twice a [...] puff Inhalation Twice a day Not-Taking/PRN Nystatin-Triamcinolone 312370-3.1 UNIT/GM Cream 1 application Externally Twice a [...] MD Date: 0 03/29/2025 Generated for Mabel trotter/Ashish/Franciscoitting on: 2024 10:51 AM EST History and Physical Notes * HPI [...]
--- OUTSIDE RECORDS SUMMARY | 2025-04-01 05:08 | XMS_ITS ---
Author Organization Jake Pepper MD Address [address] [place], [place] [id number] Care Team Providers Care Development Geologist Name Role Phone Jake Pepper Primary Care Provider [phone] REASON FOR VISIT INR5.4 Encounters Encounter Location Date Provider Diagnosis Jake Pepper MD [address] [place], [place] [phone] 04/01/2025 Jaek Pepper Plan Of Treatment Next Appt Details Provider Name:Jake schmidt, 08/19/2025 07:00:00 AM, [address] [facility], Suite [facility], [place], [place], [id number], Provider Name:Jake schmidt, 08/26/2025 10:00:00 AM, [address], [address], [place], [id number], Provider Name:Jake Miller roxana, 02/24/2026 07:15:00 AM, [address], [address], [place], [place], [address], Provider Name:Jake Miller kenyar, 03/03/2026 09:30:00 AM, [address], [address], [place], [place], [id number], Progress Notes * Kalyan JUAREZ RDOB: [birth year] (84 yo M)Acc No.[id number]:04/01/2025 Patient: Carmen VIRAMONTESKalyan :1940 A ge:84 Y S ex:Male Address:[address] [place] [address] [place] [address] * true * Date: Generated for Mabel trotter/Ashish/eTransmitting on: 2024 10:51 AM EST
--- OUTSIDE RECORDS SUMMARY | 2025-04-05 05:30 | XMS_ITS ---
Author Organization Jake Pepper MD Address [address] [place], [place] [id number] Care Team Providers Care Auto Body Painter Name Role Phone Jake Pepper Primary Care Provider [phone] Allergies Allergen (clinical drug ingredient) Drug/Non Drug [...] day for 30 days 04/05/2025 Active Nystatin-Triamcinolone 395486-5.1 UNIT/GM 1 application Externally Twice a day [...] Orally for 10 days 03/18/2025 Not-Taking Nystatin 274611 UNIT/GM 1 application Externally Twice a day for 10 days 03/19/2025 Active valACYclovir HCl 1 GM 1 tablet Orally On ce a day Active Ipratropium-Albuterol 0.5-2.5 (3) MG/3ML 3 ml as needed Inhalation every 6 hrs 10/30/2021 Active Vitamin B12 1000 MCG 1 tablet Orally Onc e a day for 30 day(s) Active Nystatin 692327 UNIT/GM 1 application Externally Twice a day [...] W/U Status Risk Notes Problem Postherpetic neuralgia (2715752) Post herpetic neuralgia (B02.29) Active confirmed Vital Signs Blood pressure systolic 104 mm Hg 04/05/20 25 Blood pressure diastolic 60 mm Hg 025 Height 65 in 04/05/2025 Weight 167 lbs 04/05/2025 BMI 27.79 kg/m2 04/05/2025 weight is down 2 pounds [facility] e 03-29-25 Encounters Encounter Location Date Provider Diagnosis Jake Pepper MD 10 [facility] [address] [place], [place] [phone] 04/05/2025 Jake Pepper Post herpetic neuralgia B02.29 [...] 2 Weeks, Reason: Provider Name:Jake Miller ier, 08/19/2025 07:00:00 AM, [address], [address], [place], [place], [phone], Provider Name:Jake Miller ier, 08/26/2025 10:00:00 AM, [address], [address], [place], [place], [phone], Provider Name:Jake Miller ier, 02/24/2026 07:15:00 AM, [address], [address], [place], [place], [address], Provider Name:Jake Miller ier, 03/03/2026 09:30:00 AM, [address], [address], [place], [place], [phone], Progress Notes * Kalyan JUAREZ RDOB: [birth year] (84 yo M)Acc No.[id number]:04/05/2025 Progress Notes Patient: Kalyan KENNEDY Provider: Aly Pepper MD :1940 A ge:84 Y S ex:Male Date:04/05/2025 Address:[address] [place] [address] [place], [id number] Subjective: * Chief Complaints: * 1 WEEK [...] exertion. G astrointestinal: Denies D iarrhea. D enrola N ausea. * Medical History: * Surgical History: * Hospitalization/Major Diagno stic Procedure: * Medications: T akingDoxycycline Monohydrate 100 MG Capsule 1 capsule Orally Once a day Vitamin B12 1000 MCG Tablet Extended Release 1 tablet Orally Once a day Nystatin 439226 UNIT/GM Ointment 1 application Externally Twice a [...] AT BEDTIME Orally Once a day Nystatin 670211 UNIT/GM Cream 1 application Externally Twice a [...] tablet Orally Once a day Taking Nystatin 131566 UNIT/GM Ointment 1 application Externally Twice a [...] BEDTIME Orally Once a day Taking Nystatin 210626 UNIT/GM Cream 1 application Externally Twice a [...] 1 puff Inhalation Twice a day Nystatin-Triamcinolone 727522-2.1 UNIT/GM Cream 1 application Externally Twice a [...] puff Inhalation Twice a day Not-Taking/PRN Nystatin-Triamcinolone 577302-5.1 UNIT/GM Cream 1 application Externally Twice a [...] MD Date: 0 04/05/2025 Generated for Mabel trotter/Ashish/eTransmitting on: 2024 10:52 AM EST History and Physical Notes * [...]
--- OUTSIDE RECORDS SUMMARY | 2025-04-13 09:39 | XMS_ITS ---
Author Organization Jake Pepper MD Address [address] [place] [phone] Care Team Providers Care Financial Dealers Name Role Phone Jake Pepper Primary Care Provider Encounters Encounter Location Date Provider Diagnosis Jake Pepper MD [address] [facility] [address] [place], [place] [phone] 04/13/2025 Jake Pepper Plan Of Treatment Next Appt Details Provider Name:Jake schmidt, 08/19/2025 07:00:00 AM, [address] [place] [address], Suite [facility], [place], [place], [phone], Provider Name:Jake schmidt, 08/26/2025 10:00:00 AM, [address] [place] [address], [address], [place], [place], [phone], Provider Name:Jake Miller ier, 02/24/2026 07:15:00 AM, [address], [address], [place], [phone], Provider Name:Jake Miller ier, 03/03/2026 09:30:00 AM, [address], [address], [place], [phone], Progress Notes * Kalyan JUAREZ RDOB: [birth year] (84 yo M)Acc No.[id number]:04/13/2025 Patient: Carmen NELLSEANKalyan :1940 A ge:84 Y S ex:Male Address:[address] [place] [address] [place] [address] * true * Date: Generated for Mabel trotter/Ashish/eTransmitting on: 2024 10:52 AM EST
--- OUTSIDE RECORDS SUMMARY | 2025-04-20 05:00 | XMS_ITS ---
Author Organization Jake Pepper MD Address [address] [place], [place] [phone] Care Team Providers Care Industrial Truck Mechanic Name Role Phone Jake Pepper Primary Care [...] CAPSULE BY MOUTH TWICE DAILY Active Nystatin 035138 UNIT/GM 1 application Externally Twice a day for 30 days 05/29/2022 Active Nystatin 269440 UNIT/GM 1 application Externally Twice a day [...] 14 DAYS Oral for 14 Not-Taking Nystatin-Triamcinolone 279216-7.1 UNIT/GM 1 application Externally Twice a day [...] Location Date Provider Diagnosis Jake Pepper MD [address] [place] [address] [place] [phone] 04/20/2025 Jake Pepper Post herpetic neuralgia B02.29 [...] Up: 3 Months, Reason: Provider Name:Jake schmidt, 08/19/2025 07:00:00 AM, [address] [place] [address], [address] [place] [address], [phone], Provider Name:Jake schmidt, 08/26/2025 10:00:00 AM, [address] [place] [address], [address] [place] [address], [phone], Provider Name:Jake schmidt, 02/24/2026 07:15:00 AM, [address] [place] [address], [address], [phone], Provider Name:Jake Miller ier, 03/03/2026 09:30:00 AM, [address], [address], [place], [place], [phone], Progress Notes * Kalyan JUAREZ RDOB: [birth year] (84 yo M)Acc No.[id number]:04/20/2025 Progress Notes Patient: Kalyan KENNEDY Provider: Aly Pepper MD :1940 A ge:84 Y S ex:Male Date:04/20/2025 Address:[address] [place], [place] [address]Mitesh [place], [id number] Subjective: * Chief Complaints: * 2 WEEK [...] 1 tablet Orally Once a day Nystatin 336902 UNIT/GM Ointment 1 application Externally Twice a day Tamsulosin HCl 0.4 MG Capsule TAKE 1 CAPSULE BY MOUTH TWICE DAILY Atorvastatin Calcium 40 MG Tablet 1 tablet Orally Once a day Zolpidem Tartrate 5 MG Tablet TAKE 1 TABLET BY MOUTH DAILY AT BEDTIME Orally Once a day Nystatin 172273 UNIT/GM Cream 1 application Externally Twice a [...] tablet Orally Once a day Taking Nystatin 303782 UNIT/GM Ointment 1 application Externally Twice a day Taking Tamsulosin HCl 0.4 MG Capsule TAKE 1 CAPSULE BY MOUTH TWICE DAILY Taking Atorvastatin Calcium 40 MG Tablet 1 tablet Orally Once a day Taking Zolpidem Tartrate 5 MG Tablet TAKE 1 TABLET BY MOUTH DAILY AT BEDTIME Orally Once a day Taking Nystatin 230003 UNIT/GM Cream 1 application Externally Twice a [...] 1 puff Inhalation Twice a day Nystatin-Triamcinolone 402943-2.1 UNIT/GM Cream 1 application Externally Twice a [...] puff Inhalation Twice a day Not-Taking/PRN Nystatin-Triamcinolone 845914-1.1 UNIT/GM Cream 1 application Externally Twice a [...] complication, initial encounter - S51.801A 3 . A trial fibrillation, unspecified type [...] 04/20/2025 Generated for Mabel trotter/Ashish/Franciscoitting on: 1 2024 10:51 AM EST History and Physical [...]
--- OUTSIDE RECORDS SUMMARY | 2025-05-07 05:44 | XMS_ITS ---
Author Organization Jake Pepper MD Address [address] [place], [place] [phone] Care Team Providers Care Manager Science Name Role Phone Jake Pepper Primary Care Provider [phone] REASON FOR VISIT RE GABAPENTIN Encounters Encounter Location Date Provider Diagnosis Jake Pepper MD [address] [facility] [address] [place], [place] [id number] 05/07/2025 Jake Pepper Plan Of Treatment Next Appt Details Provider Name:Jake schmidt, 08/19/2025 07:00:00 AM, [address] [place] [address], [address] [place] [address], [phone], Provider Name:Jake schmidt, 08/26/2025 10:00:00 AM, [address], [address], [place], [place], [phone], Provider Name:Jake Miller kenyar, 02/24/2026 07:15:00 AM, [address], [address], [place], [place], [phone], Provider Name:Jake Miller kenyar, 03/03/2026 09:30:00 AM, [address] [facility], [address], [place], [place], [phone], Progress Notes * Kalyan JUAREZ RDOB: [birth year] (84 yo M)Acc No.[id number]:05/07/2025 Patient: Carmen VIRAMONTESKalyan :1940 A ge:84 Y S ex:Male Address:[address] [place] [address] [place] [address] * true * Date: Generated for Mabel trotter/Ashish/Erikasmitting on: 2024 10:52 AM EST
--- OUTSIDE RECORDS SUMMARY | 2025-05-11 05:57 | XMS_ITS ---
Author Organization Jake Pepper MD Address [address] [place], [place] [phone] Care Team Providers Care Swimmer Name Role Phone Jake Pepper Primary Care Provider REASON FOR VISIT INR of 1.4 Encounters Encounter Location Date Provider Diagnosis Jake Pepper MD [address] [place], [place] [phone] 05/11/2025 Jake Pepper Plan Of Treatment Next Appt Details Provider Name:Jake schmidt, 08/19/2025 07:00:00 AM, 10 [facility], [address] [facility], [place], [place], [phone], Provider Name:Jake schmidt, 08/26/2025 10:00:00 AM, [address], [address], [place], [phone], Provider Name:Jake Miller roxana, 02/24/2026 07:15:00 AM, [address] [facility] [address], [address], [place], [place], [phone], Provider Name:Jake Miller roxana, 03/03/2026 09:30:00 AM, [address] [facility] [address], [address], [place], [phone], Progress Notes * Kalyan JUAREZ RDOB: [birth year] (84 yo M)Acc No.[id number]:05/11/2025 Patient: Carmen VIRAMONTESKalyan :1940 A ge:84 Y S ex:Male Address:[address] [place] [address] [place] [address] * true * Date: Generated for Mabel trotter/Ashish/eTransmitting on: 2024 10:52 AM EST
--- OUTSIDE RECORDS SUMMARY | 2025-06-09 04:00 | XMS_ITS ---
Author Organization Jake Pepper MD Address [address] [place] [phone] Care Team Providers Care Arc Welder Name Role Phone Jake Pepper Primary Care Provider [phone] REASON FOR VISIT New Refill Request Medications Medication SIG (Take, Route, Fr equency, Duration) Notes Start Date End Date Status Zolpidem Tartrate 5 MG TAKE 1 TABLET BY MOUTH DAILY AT BEDTIME Orally Once a day for 30 days 06/10/2025 Active Encounters Encounter Location Date Provider Diagnosis Jake Pepper MD [address] [place] [id number] 06/09/2025 Jake Pepper Insomnia G47.00 Assessments Encounter Date Diagnosis (ICD Code) Assessment Notes Treatment Notes Treatment Clinical Notes Section Notes 06/09/2025 Insomnia (ICD-10 - G47.00) Plan Of Treatment Medication Medication Name Sig Start Date Stop Date Notes Zolpidem Tartrate 5 MG TAKE 1 TABLET BY MOUTH DAILY AT BEDTIME Orally Once a day for 30 days 06/10/2025 Next Appt Details Provider Name:Jake Miller ier, 08/19/2025 07:00:00 AM, [address] [place] [address], Suite [facility], [place], [place], [phone], Provider Name:Jake Miller ier, 08/26/2025 10:00:00 AM, [address] [place] [address], [place] [address], [place], [place], [phone], Provider Name:Jake Miller ier, 02/24/2026 07:15:00 AM, [address] [place] [address], [place] [address], [place], [place], [phone], Provider Name:Jake Miller ier, 03/03/2026 09:30:00 AM, [address] [place] [address], [place] [address], [place], [place], [phone], Progress Notes * Kalyan JUAREZ RDOB: [birth year] (84 yo M)Acc No.[id number]:06/09/2025 Patient: Carmen VIRAMONTESKalyan :1940 A ge:84 Y S ex:Male Address:[address] [place] [phone] * Refills Refill Zolpidem Tartrate Tablet, 5 MG, Orally, 30, TAKE 1 TABLET BY MOUTH DAILY AT BEDTIME, Once a day, 30 days, Refills=0 * true * Date: Generated for Mabel trotetr/Ashish/Erikasmitting on: 2024 10:51 AM EST
--- OUTSIDE RECORDS SUMMARY | 2025-06-10 09:00 | XMS_ITS ---
Author Organization Jake Pepper MD Address [address] [place] [phone] Care Team Providers Care Butter Fat Tester Name Role Phone Jake Pepper Primary Care Provider [phone] REASON FOR VISIT New Refill Request Medications Medication SIG (Take, Route, Fr equency, Duration) Notes Start Date End Date Status Gabapentin 300 MG 1 capsule Orally twi ce a day for 30 days 04/05/2025 Active Encounters Encounter Location Date Provider Diagnosis Jake Pepper MD [address] [place] [phone] 06/10/2025 Jake Pepper Post herpetic neuralgia B02.29 Assessments Encounter Date Diagnosis (ICD Code) Assessment Notes Treatment Notes Treatment Clinical Notes Section Notes 06/10/2025 Post herpetic neuralgia (ICD-10 - B02.29) Plan Of Treatment Medication Medication Name Sig Start Date Stop Date Notes Gabapentin 300 MG 1 capsule Orally twice a day for 30 days 04/05/2025 Next Appt Details Provider Name:Jake Miller ier, 08/19/2025 07:00:00 AM, [address] [place] [address], Suite [facility], [place], [place], [phone], Provider Name:Jake Miller ier, 08/26/2025 10:00:00 AM, [address] [place] [address], Suite [facility], [place], [place], [phone], Provider Name:Jake Miller ier, 02/24/2026 07:15:00 AM, [address] [place] [address], Suite [facility], [place], [place], [phone], Provider Name:Jake Miller ier, 03/03/2026 09:30:00 AM, [address] [place] [address], [address], [phone], Progress Notes * Kalyan JUAREZ RDOB: [birth year] (84 yo M)Acc No.[id number]:06/10/2025 Patient: Carmen NELLSEANKalyan :1940 A ge:84 Y S ex:Male Address:[address] [place] [phone] * Refills Refill Gabapentin Capsule, 300 MG, Orally, 60 Capsule, 1 capsule, twice a day, 30 days * true * Date: Generated for Mabel trotter/Ashish/eTransmitting on: 2024 10:53 AM EST
--- OUTSIDE RECORDS SUMMARY | 2025-08-10 00:21 | XMS_ITS ---
Author Organization Jake Pepper MD Address [address] [place] [phone] Care Team Providers Care Forensic Audit Expert Name Role Phone Jake Pepper Primary Care Provider [phone] REASON FOR VISIT New Refill Request Medications Medication SIG (Take, Route, Fr equency, Duration) Notes Start Date End Date Status Gabapentin 300 MG 1 capsule Orally twi ce a day for 30 days 04/05/2025 Active Encounters Encounter Location Date Provider Diagnosis Jake Pepper MD [address] [place] [id number] 08/10/2025 Jake Pepper Post herpetic neuralgia B02.29 Assessments Encounter Date Diagnosis (ICD Code) Assessment Notes Treatment Notes Treatment Clinical Notes Section Notes 08/10/2025 Post herpetic neuralgia (ICD-10 - B02.29) Plan Of Treatment Medication Medication Name Sig Start Date Stop Date Notes Gabapentin 300 MG 1 capsule Orally twice a day for 30 days 04/05/2025 Next Appt Details Provider Name:Jake Miller ier, 08/19/2025 07:00:00 AM, [address] [place] [address], [address] [facility], [place], [place], [phone], Provider Name:Jake Miller ier, 08/26/2025 10:00:00 AM, [address] [place] [address], [address] [facility], [place], [place], [phone], Provider Name:Jake Miller ier, 02/24/2026 07:15:00 AM, [address] [place] [address], [address] [facility], [place], [place], [phone], Provider Name:Jake Miller ier, 03/03/2026 09:30:00 AM, [address] [place] [address], [address], [phone], Progress Notes * Kalyan JUAREZ RDOB: [birth year] (84 yo M)Acc No.[id number]:08/10/2025 Patient: Carmen NELLSEANKalyan :1940 A ge:84 Y S ex:Male Address:[address] [place] [phone] * Refills Refill Gabapentin Capsule, 300 MG, Orally, 60 Capsule, 1 capsule, twice a day, 30 days, Refills=3 * true * Date: Generated for Mabel trotter/Ashish/Erikasmitting on: 2024 10:51 AM EST
[2025-08-13 09:48] LABS: Prothrombin Time Whole Bld POC 34.6 sec (11.1-13.5); ~PT, ~INR - Anti Coag Clinic 2.9 (0.9-1.1)
--- NOTE | 2025-08-13 09:54 | MHC.OFFVISCO ---
Intake Intake Visit Reasons: Anticoagulation Allergies pneumococcal vaccine (PNEUMOCOCCAL VACCINE) Allergy (Intermediate, Verified 08/13/25 09:42) RASH amoxicillin (From Augmentin) Allergy (Unknown, Verified 08/13/25 09:42) Swelling clavulanic acid (From Augmentin) Allergy (Unknown, Verified 08/13/25 09:42) Swelling theophylline Adverse Reaction (Intermediate, Verified 08/13/25 09:42) Loss of Appetite Medication List - Last Reconciled 08/13/25 by Imani Mckeon RN albuterol sulfate 90 mcg/actuation 2 puffs PO Q2H PRN atorvastatin 40 mg PO DAILY carvedilol 6.25 mg PO BID cyanocobalamin (vitamin B-12) 1,000 mcg PO DAILY furosemide 60 mg (1.5 x 40 mg) PO DAILY gabapentin mg PO DAILY ipratropium-albuterol 0.5 mg-3 mg(2.5 mg base)/3 mL 3 mL inhalation TID multivitamin (One Daily Multivitamin tablet) 1 tab PO DAILY nystatin 1 appl topical BID tamsulosin 0.4 mg PO BID 90 days warfarin See Protocol 6mg X 5DAYS, 3MG X 2 DAYS orally, Take medication 1-2 tabs as directed per anticoagulation clinic based on your INR Nursing Note INR: 2.9 in therapeutic range of 2-3 Medications and supplements reviewed No changes in health, diet, medications, or supplements, Denies any signs and symptoms of bleeding or bruising or clotting. Bleeding, bruising, clotting discussed Nutritional guidance given: asked about ensure. Pt takes it 3X/week. He also drinks cranberry juice. Instructed to hold cran juice for 2 days and to have ensure one a day for next 2 days then to alternate cranberry juice and ensure one a day every other day. Dose: 6mg X 5 days and 9mg X 2 days ( & Sat) F/U INR: 09/10/25 Patient verbalizes understanding of instructions given Anti-Coag Initial Assessment Social Hx Patient Tobacco Use Status: Former Tobacco user alcohol intake: never Alcohol intake frequency: 0-2 drinks per day Cardiovascular Hx: HTN, UT and Arrhythmias Lung Disease HX: COPD Musculoskeletal Hx: Gout Blood Disorder Hx: Hyperlipidemia GI Hx: Hemorrhoids Hx: Kidney Disease and Prostate Cancer HX: Yes Psych. 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
--- OUTSIDE RECORDS SUMMARY | 2025-08-13 10:51 | XMS_ITS | Patient Health Record ---
Author Organization [facility] Address [address] [place] [phone] Care Team Providers Care Women'S Studies Lecturer Name Role Phone Jake Pepper MD Primary Care Provider Luther Rajput Jr [facility] [phone] Allergies Allergen (clinical drug ingredient) Drug/Non [...] Status Risk Notes Problem Colon cancer screening (985189011) Colon cancer screening (V76.51) Active confirmed Problem Long-term current use of aspirin (1632438084323 03) Aspirin long-term use (V58.66) Active confirmed Plan Of Treatment Future Test Test Name Order Date COLONOSCOPY 07/29/2014 Insurance Providers Payer Name Payer Address Payer Phone Subscriber Number Group Number Insured Name Patient Relationship to Insured Coverage Start Date Coverage End Date [facility] [address] [place] [phone] [id number] CORNELIA JUAREZ Self - patient is the insured Medicare of [place] [employer] [address] [place] [address] [id number] CORNELIA JUAREZ Self - patient is the insured Medical (General) History Medical History History ICD Code prostate problems hypertension elevated cholesterol Surgical History Surgery Date(Month/Year) back surgery knee surgery
--- OUTSIDE RECORDS SUMMARY | 2025-08-13 10:52 | XMS_ITS | Patient Health Record ---
Author Organization Jake Pepper MD Address [address] [place], [place] [id number] Care Team Providers Care Manager Paid Name Role Phone Jake Pepper Primary Care Provider [phone] Allergies Allergen (clinical drug ingredient) Drug/Non Drug Allergy documented on EMR Reaction Allergy Type Onset Date Status Lamisil rash Drug Allergy Active Vaccine product containing Streptococcus pneumoniae antigen (medicinal product) Pneumovax (uncoded) local reaction redness Allergy Active Results Component Value Reference Range Notes Liver Panel Reviewed date:08/20/2024 03:17:01 PM Interpretation: Performing Lab:[facility], [address] [place] [phone] Notes/Report: Bilirubin Total 0.7 0.0-1.0 mg/dL Bilirubin Direct 0.3 0.0-0.5 mg/dL Aspartate Amino Transferase 42 5-37 U/L Alanine Aminotransferase 24 0-40 U/L Total Protein 7.3 6.5-8.0 g/dL Albumin Level 3.9 3.5-5.0 g/dL Alkaline Phosphatase 94 39-117 U/L Lipid Panel with Reflex Reviewed date:08/20/2024 03:16:31 PM Interpretation: Performing Lab:[facility], [address] [place] [phone] Notes/Report: Triglycerides 135 <150 mg/dL Desirable Triglyceride: [...] ff Reviewed date:02/21/2025 05:38:19 PM Interpretation: Performing Lab:[facility], [address] [place] [phone] Notes/Report: White Blood Count 10.0 4.8-10.8 X10*3/uL [...] NRBC Abs Auto 0.000 0.0-0.012 X10*3/uL Comprehensive [place]. Panel Fa st Reviewed date:02/21/2025 05:34:56 PM Interpretation: Performing Lab:[facility], [address] [place] [phone] Notes/Report: Sodium 143 135-145 mmol/L Potassium 3.8 [...] PROFILE Reviewed date:02/19/2025 12:44:54 PM Interpretation: Performing Lab:[address] [address] Notes/Report: Iron 63 45-160 mcg/dL Total Iron Binding Capacity 271 228-428 mcg/dL Percent Iron Saturation 23 15-50 % Unsaturated Iron Binding 208 Lipid Panel Reviewed date:02/19/2025 12:44:14 PM Interpretation: Performing Lab:[facility], [address] [place] [phone] Notes/Report: Triglycerides 129 <150 mg/dL Desirable Triglyceride: [...] (Free>4and<10) Reviewed date:02/19/2025 12:45:04 PM Interpretation: Performing Lab:[facility], [address] [place] [phone] Notes/Report: PSA,Total (Free>4and<10) < 0.10 0.00-4.00 ng/mL [...] t Reviewed date:02/21/2025 05:39:18 PM Interpretation: Performing Lab:[facility], [address] [place] [phone] Notes/Report: Urine, Clean Catch Color Urine Dark Yellow Appearance Urine Clear PH 6.5 5.0-9.0 Glucose Urine UA Negative Negative mg/dL Urine Blood Negative Negative Specific [place] - Urine 1.025 1.005-1.025 Urine Protein 30 (1+) Neg-Trace mg/dL Urine Ketones Trace Negative mg/dL Nitrite Urine Negative Negative Leukocyte Esterase Urine Negative Negative RBC Urine 0-2 0-2 /HPF WBC Urine 0-5 0-5 /HPF Squamous Epithelial Cell Urine 0-2 0-2 /HPF Bacteria Urine None Seen None Seen Hyaline Casts Urine 0-2 0-2 /LPF Hold Gold Reviewed date:08/20/2024 12:43:27 PM Interpretation: Performing Lab:[facility], [address] [place] [phone] Notes/Report: Hold Gold See Note Specimen held untested for 24 hours; Call to request Chemistry testing. INR WHOLE BLOOD POC Reviewed date:08/25/2024 07:57:52 PM Interpretation: Performing Lab:[facility], [address] [place] [phone] Notes/Report: PT, INR - Anti Coag Clinic 2.1 0.9-1.1 METER #: [id number] INTERNATIONAL NORMALIZED RATIO (INR) REFERENCE RANGES Reference [...] OC Reviewed date:08/25/2024 07:57:59 PM Interpretation: Performing Lab:[facility], [address] [place] [phone] Notes/Report: Prothrombin Time Whole Bld POC 25.6 11.1-13.5 sec INR WHOLE BLOOD POC Reviewed date:09/15/2024 09:59:14 AM Interpretation: Performing Lab:[facility], [address] [place] [phone] Notes/Report: PT, INR - [facility]ag Clinic 3.0 0.9-1.1 METER #: [id number] INTERNATIONAL NORMALIZED RATIO (INR) REFERENCE RANGES Reference [...] OC Reviewed date:09/15/2024 12:33:10 PM Interpretation: Performing Lab:[facility], [address] [place] [phone] Notes/Report: Prothrombin Time Whole Bld POC 35.5 11.1-13.5 sec INR WHOLE BLOOD POC Reviewed date:10/06/2024 04:22:44 PM Interpretation: Performing Lab:[facility], [address] [place] [phone] Notes/Report: PT, INR - Anti Coag Clinic 2.0 0.9-1.1 METER #: [id number] INTERNATIONAL NORMALIZED RATIO (INR) REFERENCE RANGES Reference [...] OC Reviewed date:10/06/2024 04:22:36 PM Interpretation: Performing Lab:[facility], [address] [place] [phone] Notes/Report: Prothrombin Time Whole Bld POC 23.5 11.1-13.5 sec Prostate Specific Antigen Reviewed date:10/09/2024 11:16:46 AM Interpretation: Performing Lab:[facility], [address] [place] [phone] Notes/Report: Prostate Specific Antigen < 0.10 <0.05-4.0 ng/mL PSA methodology: Altitude Conity i Chemiluminescent Microparticle Immunoassay (CMIA) INR WHOLE BLOOD POC Reviewed date:10/27/2024 11:14:11 AM Interpretation: Performing Lab:[facility], [address] [place] [phone] Notes/Report: PT, INR - Anti Coag Clinic 2.0 0.9-1.1 METER #: [id number] INTERNATIONAL NORMALIZED RATIO (INR) REFERENCE RANGES Reference [...] OC Reviewed date:10/27/2024 11:14:04 AM Interpretation: Performing Lab:[facility], [address] [place] [phone] Notes/Report: Prothrombin Time Whole Bld POC 23.7 11.1-13.5 sec INR WHOLE BLOOD POC Reviewed date:11/10/2024 12:18:48 PM Interpretation: Performing Lab:[facility], [address] [place] [phone] Notes/Report: PT, INR - Anti Coag Clinic 1.8 0.9-1.1 METER #: [id number] INTERNATIONAL NORMALIZED RATIO (INR) REFERENCE RANGES Reference [...] OC Reviewed date:11/10/2024 12:18:37 PM Interpretation: Performing Lab:[facility], [address] [place] [phone] Notes/Report: Prothrombin Time Whole Bld POC 21.5 11.1-13.5 sec INR WHOLE BLOOD POC Reviewed date:11/24/2024 12:04:29 PM Interpretation: Performing Lab:[facility], [address] [place] [phone] Notes/Report: PT, INR - Anti Coag Clinic 2.4 0.9-1.1 METER #: [id number] INTERNATIONAL NORMALIZED RATIO (INR) REFERENCE RANGES Reference [...] OC Reviewed date:11/24/2024 12:04:21 PM Interpretation: Performing Lab:[facility], [address] [place] [phone] Notes/Report: Prothrombin Time Whole Bld POC 28.2 11.1-13.5 sec INR WHOLE BLOOD POC Reviewed date:12/17/2024 12:38:14 PM Interpretation: Performing Lab:[facility], [address] [place] [phone] Notes/Report: PT, INR - Anti Coag Clinic 2.0 0.9-1.1 METER #: [id number] INTERNATIONAL NORMALIZED RATIO (INR) REFERENCE RANGES Reference [...] OC Reviewed date:12/17/2024 12:51:29 PM Interpretation: Performing Lab:[facility], [address] [place] [phone] Notes/Report: Prothrombin Time Whole Bld POC 23.9 11.1-13.5 sec INR WHOLE BLOOD POC Reviewed date:01/07/2025 10:59:51 AM Interpretation: Performing Lab:[facility], [address] [place] [phone] Notes/Report: PT, INR - Anti Coag Clinic 2.2 0.9-1.1 METER #: [id number] INTERNATIONAL NORMALIZED RATIO (INR) REFERENCE RANGES Reference [...] OC Reviewed date:01/07/2025 10:59:22 AM Interpretation: Performing Lab:[facility], [address] [place] [phone] Notes/Report: Prothrombin Time Whole Bld POC 26.4 11.1-13.5 sec INR WHOLE BLOOD POC Reviewed date:02/04/2025 02:25:43 PM Interpretation: Performing Lab:[facility], [address] [place] [phone] Notes/Report: PT, INR - Anti Coag Clinic 3.3 0.9-1.1 METER #: [id number] INTERNATIONAL NORMALIZED RATIO (INR) REFERENCE RANGES Reference [...] OC Reviewed date:02/04/2025 11:35:29 AM Interpretation: Performing Lab:[facility], [address] [place] [phone] Notes/Report: Prothrombin Time Whole Bld POC 39.1 11.1-13.5 sec INR WHOLE BLOOD POC Reviewed date:03/04/2025 10:01:13 AM Interpretation: Performing Lab:[facility], [address] [place] [phone] Notes/Report: PT, INR - Anti Coag Clinic 2.6 0.9-1.1 METER #: [id number] INTERNATIONAL NORMALIZED RATIO (INR) REFERENCE RANGES Reference [...] OC Reviewed date:03/04/2025 10:01:06 AM Interpretation: Performing Lab:[facility], [address] [place] [phone] Notes/Report: Prothrombin Time Whole Bld POC 31.0 11.1-13.5 sec Complete Blood Count Auto Di ff Reviewed date:03/21/2025 07:34:37 PM Interpretation: Performing Lab:[address] [phone] Notes/Report: White Blood Count 7.1 4.8-10.8 X10*3/uL [...] INR Reviewed date:03/21/2025 07:30:57 PM Interpretation: Performing Lab:[address] [phone] Notes/Report: Prothrombin Time 30.9 10.9-12.4 SEC INTERNATIONAL [...] Microscopic Reviewed date:03/21/2025 07:33:45 PM Interpretation: Performing Lab:[address] [phone] Notes/Report: Color Urine Yellow Appearance Urine Clear PH 6.5 5.0-9.0 Glucose Urine UA Negative Negative mg/dL Urine Blood Negative Negative Specific [place] - Urine >= 1.030 1.005-1.025 Urine [...] Panel Reviewed date:03/21/2025 07:33:21 PM Interpretation: Performing Lab:[address] [address] Notes/Report: Sodium 143 135-145 mmol/L Potassium 3.8 [...] Acid Reviewed date:03/21/2025 07:30:17 PM Interpretation: Performing Lab:[address] [address] Notes/Report: Lactic Acid 0.9 0.5-2.0 mmol/L Magnesium Reviewed date:03/21/2025 07:31:06 PM Interpretation: Performing Lab:[address] [phone] Notes/Report: Magnesium 1.9 1.6-2.6 mg/dL Troponin-I High Sensitivity Reviewed date:03/21/2025 07:30:47 PM Interpretation: Performing Lab:[facility], [address] [place] [phone] Notes/Report: Troponin-I High Sensitivity 29.0 <3.5-35.0 ng/L The Robert high sensitivity Troponin-I results should be used in conjunction with other diagnostic information such as ECG, clinical observations and information, and patient symptoms to aid in the diagnosis of [place]. B Type Natriuretic Peptide Reviewed date:03/21/2025 07:31:15 PM Interpretation: Performing Lab:[address] [address] Notes/Report: B Type Natriuretic Peptide 214 <100 pg/mL Gram stain Reviewed date:03/23/2025 10:18:58 AM Interpretation: Performing Lab:[address] [address] Notes/Report: Gram stain Gram stain results: Gram stain No polys Gram stain 2+ epithelial cells Gram stain 3+ Gram-positive cocci SARS-CoV2/FLU/RSV Reviewed date:03/21/2025 07:30:40 PM Interpretation: Performing Lab:[address] [address] Notes/Report: Influenza A PCR NEGATIVE Negative Influenza [...] by authorized laboratories. Testing performed on the [facility] GeneXpert utilizing real-time RT-PCR. All SARS CoV2 and positive influenza A/B results are reported to [facility]. Blood Culture (First) Reviewed date:03/26/2025 04:21:01 PM Interpretation: Performing Lab:[facility], [address] [place] [phone] Notes/Report: Blood Culture (First) No growth after 5 days. Blood Culture (Second) Reviewed date:03/26/2025 04:21:09 PM Interpretation: Performing Lab:[facility], [address] [place] [phone] Notes/Report: Blood Culture (Second) No growth after 5 days. Venous Blood Gases - POC Reviewed date:03/21/2025 07:30:11 PM Interpretation: Performing Lab:[facility], [address] [place] [phone] Notes/Report: VBG pH 7.54 7.32-7.43 METER #: [id number] additional_comment: Cb mcmold VBG pCO2 56 METER #: [id number] additional_comment: Cb mcmold VBG pO2 56 METER #: [id number] additional_comment: Cb mcmold VBG Base Excess 22.3 METER #: [id number] additional_comment: Cb mcmold VBG HCO3 48 22-26 mmol/L METER #: [id number] additional_comment: Cb mcmold VBG O2 % Saturation 88.0 METER #: [id number] additional_comment: Sushant singh Routine Culture Reviewed date:03/23/2025 10:20:42 AM Interpretation: Performing Lab:[facility], [address] [place] [phone] Notes/Report: Routine Culture Report - external Routine Culture 4+ Mixed skin ricci CT soft tissue neck w con Reviewed date:03/21/2025 07:30:02 PM Interpretation: Performing Lab: Notes/Report: [address] [address] [address] Scan Report Signed Patient: Kalyan Nguyen MR#: [id number] 2742 : 1940 Acct:[id number] Age/Sex: 84 / M ADM Date: 03/20/25 Loc: [facility]: Zoraida Donovan MD Ordering Physician: Nilsa Card Date of Service: 03/20/25 Procedure(s): CT soft tissue neck w IV con Accession Number(s): [id number] cc: Nilsa Card [facility]; Jake Pepper MD Report Number: [id number]: Total DLP = 599.99 mGy-cm CLINICAL HISTORY: [...] in OV> 03/20/252104 DD/ 03 TD/TT: 03/20/252103 Soap Inspector: [address] [address] [address] Scan Report Signed Patient: Miguel Nguyen MR#: [id number] 2742 : 1940 Acct:[id number] Age/Sex: 84 / M ADM Date: 03/20/25 Loc: [place] [address]: Zoraida Donovan MD Ordering Physician: Nilsa Card [facility] Date of Service: 03/20/25 Procedure(s): CT sof t tissue neck w IV con Accession Number(s): [id number] cc: Nilsa Card [employer]-; Jake Pepper MD Report Number: [id number]: Total DLP = 599.99 mGy-cm CLINICAL HISTORY: [...] in OV> 03/20/252104 DD/ 03 TD/TT: 03/20/252103 Soap Inspector: CT head/brain wo con Reviewed date:03/21/2025 07:29:22 PM Interpretation: Performing Lab: Notes/Report: [address] [address] [address] Scan Report Signed Patient: Kalyan Nguyen MR#: [id number] 2742 : 1940 Acct:[id number] Age/Sex: 84 / M ADM Date: 03/20/25 [facility] [address]: Zoraida Donovan MD Ordering Physician: Nilsa Card Date of Service: 03/20/25 Procedure(s): CT head/brain wo IV con Accession Number(s): [id number] cc: Nilsa Card; Jake Pepper MD Report Number: [id number]: Total DLP = 914.64 mGy-cm CLINICAL HISTORY: [...] in OV> 03/20/252105 DD/ 04 TD/TT: 03/20/252104 Soap Inspector: [place] [address] [address] Scan Report Signed Patient: Miguel Nguyen MR#: [id number] 2742 : 1940 Acct:[id number] Age/Sex: 84 / M ADM Date: 03/20/25 Loc: [place] [address]: Zoraida Donovan MD Ordering Physician: Nilsa Card Date of Service: 03/20/25 Procedure(s): CT head/brain wo IV con Accession Number(s): [id number] cc: Nilsa Card; Jake Pepper MD Report Number: [id number]: Total DLP = 914.64 mGy-cm CLINICAL HISTORY: [...] in OV> 03/20/252105 DD/ 04 TD/TT: 03/20/252104 Soap Inspector: XR chest 2V Reviewed date:03/21/2025 07:32:02 PM Interpretation: Performing Lab: Notes/Report: [address] [address] XRay Report Signed Patient: Kalyan Nguyen MR#: [id number] 2742 : 1940 Acct:[id number] Age/Sex: 84 / M ADM Date: 03/20/25 Loc: [facility] Attending Dr: Ordering Physician: Lisette Graves NP Date of Service: 03/20/25 Procedure(s): XR chest 2V Accession Number(s): [id number] cc: Jake Pepper MD; Lisette Graves NP [...] in OV> 03/20/251727 DD/ 26 TD/TT: 03/20/251726 Soap Inspector: [address] [address] XRay Report Signed Patient: Miguel Nguyen MR#: [id number] 2742 : 1940 Acct:[id number] Age/Sex: 84 / M ADM Date: 03/20/25 Loc: [facility] Attending Dr: Ordering Physician: Lisette Graves NP Date of Service: 03/20/25 Procedure(s): XR rhina st 2V Accession Number(s): [id number] cc: Jake Pepper MD; Lisette Graves NP CLINICAL HISTORY: dyspnea 3 days, hx COPD 2 view chest x-ray Comparison: 10/18/2023 Findings: The lungs are clear. Normal size heart. No acute fracture. IMPRESSION: 1. No acute findings. This document has be en electronically signed by: Nain Coleman MD on 03/20/2025 17:27:28 Dictated By: Nian Coleman MD Signed By: <Electronically signed by Nain Coleman MD in OV> 03/20/25 1728 DD/ 172 TD/TT: 03/20/251726 Soap Inspector: Troponin-I High Sensitivity Reviewed date:03/21/2025 07:31:34 PM Interpretation: Performing Lab:[facility], [address] [place] [phone] Notes/Report: Troponin-I High Sensitivity 24.4 <3.5-35.0 ng/L The Robert high sensitivity Troponin-I results should be used in conjunction with other diagnostic information such as ECG, clinical observations and information, and patient symptoms to aid in the diagnosis of [place]. Complete Blood Count Auto Di ff Reviewed date:03/21/2025 07:34:16 PM Interpretation: Performing Lab:[facility], [address] [place] [phone] Notes/Report: White Blood Count 6.6 4.8-10.8 X10*3/uL [...] INR Reviewed date:03/21/2025 07:32:30 PM Interpretation: Performing Lab:[facility], [address] [place] [phone] Notes/Report: Prothrombin Time 41.4 10.9-12.4 SEC INTERNATIONAL [...] Panel Reviewed date:03/21/2025 07:32:58 PM Interpretation: Performing Lab:[address] [address] Notes/Report: Sodium 142 135-145 mmol/L Potassium 3.4 [...] T4 Reviewed date:03/21/2025 07:31:25 PM Interpretation: Performing Lab:[address] [address] Notes/Report: TSH reflex Free T4 1.34 0.32-4.0 uIU/mL Respiratory Panel Reviewed date:03/21/2025 07:28:57 PM Interpretation: Performing Lab:[address] [address] Notes/Report: Adenovirus PCR Not Detected Not Detect. [...] be considered. Results reported to [facility]. This test has been authorized [...] is performed by Multiplexed PCR, utilizing the RotoPop Array. Prothrombin Time INR Reviewed date:03/22/2025 11:40:38 AM Interpretation: Performing Lab:[facility], [address] [place] [phone] Notes/Report: Prothrombin Time 55.7 10.9-12.4 SEC INTERNATIONAL [...] Panel Reviewed date:03/22/2025 12:35:51 PM Interpretation: Performing Lab:[address] [address] Notes/Report: Sodium 138 135-145 mmol/L Potassium 4.1 [...] Random Reviewed date:03/22/2025 04:33:37 PM Interpretation: Performing Lab:[facility], [address] [place] [phone] Notes/Report: Vancomycin Random 13.0 15-20 mcg/mL Prothrombin Time INR Reviewed date:03/23/2025 10:14:22 AM Interpretation: Performing Lab:[facility], [address] [place] [phone] Notes/Report: Prothrombin Time 49.6 10.9-12.4 SEC INTERNATIONAL [...] Creatinine Reviewed date:03/23/2025 10:14:33 AM Interpretation: Performing Lab:[facility], [address] [place] [phone] Notes/Report: Creatinine 0.99 0.5-1.4 mg/dL Creatinine Clr [...] POC Reviewed date:04/01/2025 02:15:11 PM Interpretation: Performing Lab:[address] [address] Notes/Report: PT, INR - Anti Coag Clinic 5.4 0.9-1.1 METER #: [id number] Asymptomatic Cleaned Meter Doctor Notified INTERNATIONAL NORMALIZED [...] OC Reviewed date:04/01/2025 02:14:25 PM Interpretation: Performing Lab:[facility], [address] [place] [phone] Notes/Report: Prothrombin Time Whole Bld POC 65.0 11.1-13.5 sec INR WHOLE BLOOD POC Reviewed date:04/05/2025 01:00:12 PM Interpretation: Performing Lab:[facility], [address] [place] [phone] Notes/Report: PT, INR - Anti Coag Clinic 4.7 0.9-1.1 METER #: [id number] INTERNATIONAL NORMALIZED RATIO (INR) REFERENCE RANGES Reference [...] OC Reviewed date:04/05/2025 01:00:04 PM Interpretation: Performing Lab:[facility], [address] [place] [phone] Notes/Report: Prothrombin Time Whole Bld POC 55.9 11.1-13.5 sec INR WHOLE BLOOD POC Reviewed date:04/12/2025 12:38:27 PM Interpretation: Performing Lab:[facility], [address] [place] [phone] Notes/Report: PT, INR - Anti Coag Clinic 4.1 0.9-1.1 METER #: [id number] INTERNATIONAL NORMALIZED RATIO (INR) REFERENCE RANGES Reference [...] OC Reviewed date:04/12/2025 12:38:37 PM Interpretation: Performing Lab:[facility], [address] [place] [phone] Notes/Report: Prothrombin Time Whole Bld POC 49.7 11.1-13.5 sec INR WHOLE BLOOD POC Reviewed date:04/15/2025 04:00:41 PM Interpretation: Performing Lab:[facility], [address] [place] [phone] Notes/Report: PT, INR - Anti Coag Clinic 4.2 0.9-1.1 METER #: [id number] INTERNATIONAL NORMALIZED RATIO (INR) REFERENCE RANGES Reference [...] OC Reviewed date:04/15/2025 04:00:48 PM Interpretation: Performing Lab:[facility], [address] [place] [phone] Notes/Report: Prothrombin Time Whole Bld POC 50.7 11.1-13.5 sec INR WHOLE BLOOD POC Reviewed date:04/19/2025 01:36:50 PM Interpretation: Performing Lab:[facility], [address] [place] [phone] Notes/Report: PT, INR - Anti Coag Clinic 2.7 0.9-1.1 METER #: [id number] INTERNATIONAL NORMALIZED RATIO (INR) REFERENCE RANGES Reference [...] OC Reviewed date:04/19/2025 01:36:41 PM Interpretation: Performing Lab:[facility], [address] [place] [phone] Notes/Report: Prothrombin Time Whole Bld POC 31.9 11.1-13.5 sec INR WHOLE BLOOD POC Reviewed date:04/27/2025 12:19:28 PM Interpretation: Performing Lab:[facility], [address] [place] [phone] Notes/Report: PT, INR - Anti Coag Clinic 2.4 0.9-1.1 METER #: [id number] INTERNATIONAL NORMALIZED RATIO (INR) REFERENCE RANGES Reference [...] OC Reviewed date:04/27/2025 12:19:14 PM Interpretation: Performing Lab:[address] [address] Notes/Report: Prothrombin Time Whole Bld POC 29.1 11.1-13.5 sec INR WHOLE BLOOD POC Reviewed date:05/11/2025 02:35:09 PM Interpretation: Performing Lab:[facility], [address] [place] [phone] Notes/Report: PT, INR - Anti Coag Clinic 1.4 0.9-1.1 METER #: [id number] Asymptomatic Doctor Notified INTERNATIONAL NORMALIZED RATIO (INR) [...] OC Reviewed date:05/11/2025 02:31:58 PM Interpretation: Performing Lab:[address] [address] Notes/Report: Prothrombin Time Whole Bld POC 16.7 11.1-13.5 sec INR WHOLE BLOOD POC Reviewed date:05/14/2025 04:20:53 PM Interpretation: Performing Lab:[address] [address] Notes/Report: PT, INR - Anti Coag Clinic 1.6 0.9-1.1 METER #: [id number] INTERNATIONAL NORMALIZED RATIO (INR) REFERENCE RANGES Reference [...] OC Reviewed date:05/14/2025 04:28:14 PM Interpretation: Performing Lab:[facility], [address] [place] [phone] Notes/Report: Prothrombin Time Whole Bld POC 19.6 11.1-13.5 sec INR WHOLE BLOOD POC Reviewed date:05/20/2025 12:36:55 PM Interpretation: Performing Lab:[facility], [address] [place] [phone] Notes/Report: PT, INR - [facility] 1.6 0.9-1.1 METER #: [id number] INTERNATIONAL NORMALIZED RATIO (INR) REFERENCE RANGES Reference [...] OC Reviewed date:05/20/2025 12:36:42 PM Interpretation: Performing Lab:[facility], [address] [place] [phone] Notes/Report: Prothrombin Time Whole Bld POC 19.8 11.1-13.5 sec INR WHOLE BLOOD POC Reviewed date:05/27/2025 12:31:20 PM Interpretation: Performing Lab:[facility], [address] [place] [phone] Notes/Report: PT, INR - [facility] 1.8 0.9-1.1 METER #: [id number] INTERNATIONAL NORMALIZED RATIO (INR) REFERENCE RANGES Reference [...] OC Reviewed date:05/27/2025 12:31:13 PM Interpretation: Performing Lab:[facility], [address] [place] [phone] Notes/Report: Prothrombin Time Whole Bld POC 21.4 11.1-13.5 sec Prostate Specific Antigen Reviewed date:06/03/2025 05:00:17 PM Interpretation: Performing Lab:[facility], [address] [place] [phone] Notes/Report: Prostate Specific Antigen < 0.10 <0.05-4.0 ng/mL PSA methodology: Salsify Alinity i Chemiluminescent Microparticle Immunoassay (CMIA) INR WHOLE BLOOD POC Reviewed date:06/04/2025 05:07:03 PM Interpretation: Performing Lab:[facility], [address] [place] [phone] Notes/Report: PT, INR - [facility] 2.1 0.9-1.1 METER #: [id number] INTERNATIONAL NORMALIZED RATIO (INR) REFERENCE RANGES Reference [...] OC Reviewed date:06/04/2025 06:43:58 PM Interpretation: Performing Lab:[facility], [address] [place] [phone] Notes/Report: Prothrombin Time Whole Bld POC 25.7 11.1-13.5 sec INR WHOLE BLOOD POC Reviewed date:06/11/2025 12:45:15 PM Interpretation: Performing Lab:[facility], [address] [place] [phone] Notes/Report: PT, INR - [facility] 1.9 0.9-1.1 METER #: [id number] INTERNATIONAL NORMALIZED RATIO (INR) REFERENCE RANGES Reference [...] OC Reviewed date:06/11/2025 12:45:05 PM Interpretation: Performing Lab:[facility], [address] [place] [phone] Notes/Report: Prothrombin Time Whole Bld POC 23.2 11.1-13.5 sec INR WHOLE BLOOD POC Reviewed date:06/18/2025 12:35:04 PM Interpretation: Performing Lab:[facility], [address] [place] [phone] Notes/Report: PT, INR - [facility] 2.8 0.9-1.1 METER #: [id number] INTERNATIONAL NORMALIZED RATIO (INR) REFERENCE RANGES Reference [...] OC Reviewed date:06/18/2025 12:35:12 PM Interpretation: Performing Lab:[facility], [address] [place] [phone] Notes/Report: Prothrombin Time Whole Bld POC 33.9 11.1-13.5 sec INR WHOLE BLOOD POC Reviewed date:07/02/2025 10:07:21 AM Interpretation: Performing Lab:[facility], [address] [place] [phone] Notes/Report: PT, INR - [facility] 2.2 0.9-1.1 METER #: [id number] INTERNATIONAL NORMALIZED RATIO (INR) REFERENCE RANGES Reference [...] OC Reviewed date:07/02/2025 10:07:35 AM Interpretation: Performing Lab:[facility], [address] [place] [phone] Notes/Report: Prothrombin Time Whole Bld POC 26.1 11.1-13.5 sec INR WHOLE BLOOD POC Reviewed date:07/23/2025 12:31:21 PM Interpretation: Performing Lab:[facility], [address] [place] [phone] Notes/Report: PT, INR - [facility] 3.0 0.9-1.1 METER #: [id number] INTERNATIONAL NORMALIZED RATIO (INR) REFERENCE RANGES Reference [...] Prothrombin Time Whole Bld P OC Reviewed date:07/23/2025 12:31:13 PM Interpretation: Performing Lab:[facility], [address] [place] [phone] Notes/Report: Prothrombin Time Whole Bld POC 35.8 11.1-13.5 sec INR WHOLE BLOOD POC (Not yet reviewed by provider) Interpretation: Performing Lab:[facility], [address] [place] [phone] Notes/Report: PT, INR - [facility] 2.9 0.9-1.1 METER #: [id number] INTERNATIONAL NORMALIZED RATIO (INR) REFERENCE RANGES Reference [...] (Not yet reviewed by provider) Interpretation: Performing Lab:[facility], [address] [place] [phone] Notes/Report: Prothrombin Time Whole Bld POC 34.6 11.1-13.5 sec Reason For Referral Reason please verito nguyen for for fpc and any other services he made need Diagnosis 1 Atrial fibrillation, unspecified type (I48.91) Diagnosis 2 COPD without exacerb ation (J44.9) Diagnosis 3 Bilateral leg weakne ss (R29.898) Referral Organization Jake Pepper MD Referring Provider First Name Jake Referring Provider Last Name Evgeny Referring Provider Speciality Internal M edicine Referred Provider [facility], [facility] Referred Provider Specialty Unknown General Notes Minerva Duff 0 04/12/2025 11:55:29 AM > referral info faxed, Minerva Duff 04/12/2025 01:22:33 PM >this referral will not be used due to they do not take his insurance. Spoke with [facility] NEIL Montiel, she will be working on getting [facility] services. Referral Priority Routine Medications Medication [...] tablet Oral ly Once a day Active Gabapentin 300 MG 1 capsule Orally twi ce a day for 30 days 04/05/2025 Active Tamsulosin HCl 0.4 MG TAKE 1 CAPSULE BY MOUTH TWICE DAILY Active Ventolin HFA 108 (90 Base) MCG/ACT 2 puffs as needed Inhalation every 4 hrs for 30 days 01/26/2013 Not-Taking Nystatin 494154 UNIT/GM 1 application Externally Twice a day [...] Orally On ce a day Not-Taking Nystatin 840126 UNIT/GM 1 application Externally Twice a day for 10 days 03/19/2025 Active Zolpidem Tartrate 5 MG TAKE 1 TABLET BY MOUTH DAILY AT BEDTIME Orally Once a day for 30 days 06/10/2025 Active Doxycycline Monohydrate 100 MG 1 capsule Orally Once a day Not-Taking Nystatin-Triamcinolone 458551-4.1 UNIT/GM 1 application Externally Twice a day [...] Quadrivalent Unknown 08/05/2018 Administered At [facility] Influenza High Dose IM Intramuscular 08/03/2019 Administer [...] Problem Status W/U Status Risk Notes Problem 85902656 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 Problem Insomnia (192480420) Insomnia (G47.00) Active confirmed Problem 7428579 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) Active confirmed Problem Cataract (791106868) Unspecified cataract (H26.9) Active confirmed Problem Conductive hearing loss, bilateral (475924684) Conductive hearing loss, 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) Active confirmed Problem 1980902 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) Active confirmed Problem 96860110 Essential hypert ension (I10) Active confirmed Problem 274624755 Prostate cancer (C61) Active confirme d Problem 2944458 Psoriasis (L40.9) Active confirmed Problem 327771951 Lung nodule (R91.1) Active confirmed Problem Low testosterone (504152966) Low testosterone (E29.1) Active confirmed Problem 3396083421123629 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 Problem 277373980 Lung nodules (R91.8) Active confirmed Problem 352215841 Cervical disc di sease (M50.90) Active confirmed Problem 436965745 Tension headache (G44.209) Active confirmed Problem 0045033 Former smoker (Z87.891) Active confirmed Problem Acute exacerbation of chronic obstructive airways disease (252018148) COPD exacerbation (J44.1) Active confirmed Problem Postherpetic neuralgia (0147539) Post herpetic neuralgia (B02.29) Active confirmed Problem 99069293 Dysthymia (F34.1) Active confirmed Problem Iron deficiency anemia (51713219) Iron deficiency anemia, unspecified iron deficiency anemia type (D50.9) Active confirmed Problem 32780891 Atrial fibrillat ion, unspecified type (I48.91) Active confirmed Problem 2050489 Urinary obstruct ion (N13.9) Active confirmed Problem Leukocytosis (052903766) Elevated WBC count (D72.829) Active confirmed Problem 02993065 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 confirmed Problem 086533015 Pure hypercholesterolemia (E78.00) Active confirmed Problem 555430604 BMI 30.0-30.9,ad ult (Z68.30) Active confirmed Problem 705049070 COPD with exacer bation (J44.1) Active confirmed Problem 192689215 Hypertensive cri sis (I16.9) Active confirmed Problem Gout (41257939) Acute gout, unspecified cause, unspecified site (M10.9) Active confirmed Problem 85166382 COPD without exacerbation (J44.9) Active confirmed Problem Gout (99725096) Acute gout of ri ght knee, unspecified cause (M10.9) Active confirmed Problem 209934493 Mixed conductive and sensorineural hearing loss of [...] Pepper MD [address] [place] [id number] 08/20/2024 Jake Pepper Pure hypercholestero lemia E78.00 Jake Pepper MD [address] [place] [address] [id number] 02/19/2025 Jake Pepper Blood tests for rout ine general physical examination Z00.00 ; Essential hypertension I10 ; Pure hypercholesterolemia E78.00 and Iron deficiency anemia, unspecified iron deficiency anemia type D50.9 Jake Pepper MD [address] [place] [address] [id number] 08/27/2024 Jake Pepper Essential hypertensi on I10 ; Pure hypercholesterolemia E78.00 ; Atrial fibrillation, unspecified type I48.91 and COPD without exacerbation J44.9 Jake Pepper MD [address] [place] [address] [id number] 01/22/2025 Jake Pepper Panlobular emphysema J43.1 ; Atrial fibrillation, unspecified type I48.91 and Unspecified cataract H26.9 Jake Pepper MD [address] [place] [address] [id number] 02/26/2025 Jake Pepper Essential hypertensi on I10 ; Annual physical exam Z00.00 ; Panlobular emphysema J43.1 ; Pure hypercholesterolemia E78.00 ; Dysthymia F34.1 ; Iron deficiency anemia, unspecified iron deficiency anemia type D50.9 and Depression screening Z13.31 Jake Pepper MD [address] [place] [address] [id number] 03/18/2025 Jake Pepper Thrush B37.0 Jake Pepper MD [address] [place] [address] [id number] 03/29/2025 Jake Pepper Essential hypertensi on I10 ; Panlobular emphysema J43.1 ; Shingles B02.9 and Thrush B37.0 Jake Pepper MD [address] [place] [address] [id number] 04/05/2025 Jake Pepper Post herpetic neural dung B02.29 ; Skin tear of right forearm without complication, initial encounter S51.801A ; Essential hypertension I10 and Atrial fibrillation, unspecified type I48.91 Jake Pepper MD [address] [place] [address] [id number] 04/20/2025 Jake Pepper Post herpetic neural dung B02.29 ; Skin tear of right forearm without complication, initial encounter S51.801A and Atrial fibrillation, unspecified type I48.91 Jake Pepper MD [address] [place] [address] [id number] 12/21/2024 Jake Pepper MD [address] [place] [address] [id number] 02/19/2025 Jake Pepper MD [address] [place] [address] [id number] 03/19/2025 Jake Pepper MD [address] [place] [address] [id number] 03/26/2025 Jake Pepper MD [address] [place] [address] [id number] 04/01/2025 Jake Pepper MD [address] [place] [address] [id number] 04/13/2025 Jake Pepper MD [address] [place] [address] [id number] 05/07/2025 Jake Pepper MD [address] [place] [address] [id number] 05/11/2025 Jake Pepper MD [address] [place] [address] [id number] 09/02/2024 Jake Pepper Insomnia G47.00 Jake Pepper MD [address] [place] [address] [id number] 10/05/2024 Jake Pepper Insomnia G47.00 Jake Pepper MD [address] [place] [address] [id number] 11/08/2024 Jake Pepper Insomnia G47.00 Jake Pepper MD [address] [place] [address] [id number] 12/07/2024 Jake Pepper Insomnia G47.00 Jake Pepper MD [address] [place] [address] [id number] 01/06/2025 Jake Pepper Insomnia G47.00 Jake Pepper MD [address] [place] [address] [id number] 02/05/2025 Jake Pepper Insomnia G47.00 Jake Pepper MD [address] [place] [address] [id number] 02/10/2025 Jake Pepper MD [address] [place] [address] [id number] 02/12/2025 Jake Pepper MD [address] [place] [address] [id number] 03/08/2025 Jake Pepper Insomnia G47.00 Jake Pepper MD [address] [place] [address] [id number] 06/09/2025 Jake Pepper Insomnia G47.00 Jake Pepper MD [address] [place] [address] [id number] 06/10/2025 Jake Teeanny Post herpetic neural dung B02.29 Jake Pepper MD [address] [place] [address] [id number] 08/10/2025 Jake Pepper Post herpetic neural dung B02.29 [...] tolerating the gabapentin, will continue current regiment 09/02/2024 Insomnia (ICD-10 - G47.00) 10/05/2024 Insomnia (ICD-10 - G47.00) 11/08/2024 Insomnia (ICD-10 - G47.00) 12/07/2024 Insomnia (ICD-10 - G47.00) 01/06/2025 Insomnia (ICD-10 - G47.00) 02/05/2025 Insomnia (ICD-10 - G47.00) 03/08/2025 Insomnia (ICD-10 - G47.00) 06/09/2025 Insomnia (ICD-10 - G47.00) 06/10/2025 Post herpetic neural dung (ICD-10 - B02.29) 08/10/2025 Post herpetic neural dung (ICD-10 - B02.29) [...] 10/15/2022 Folate 02/09/2021 INR WHOLE BLOOD POC 08/13/2025 Prothrombin Time Whole Bld POC Future Test Test Name Order Date CT chest wo con 02/04/2023 Next Appt Details Provider Name:Jake schmidt, 08/19/2025 07:00:00 AM, [address] [place] [address], [address], [phone], Provider Name:Jake schmidt, 08/26/2025 10:00:00 AM, [address] [place] [address], [address], [id number], Provider Name:Jake zambranor, 02/24/2026 07:15:00 AM, [address] [place] [address], [address], [phone], Provider Name:Jake schmidt, 03/03/2026 09:30:00 AM, [address] [place] [address], [address], [id number], Insurance Providers Payer Name Payer Address Payer Phone Subscriber Number Group Number Insured Name Patient Relationship to Insured Coverage Start Date Coverage End Date [employer] [facility] [address] [place] [phone] [id number] Kalyan Nguyen Self - patient is the insured [employer] [address] [place] [address] [id number] Kaylan Nguyen Self - patient is the insured Medical (General) History Medical History History ICD Code 03/2004 - colonoscopy (repea t 10 years); colonoscopy [address] Rajput Smoker unmotivated to quit F17.210 biculatimide and finasteraide for prosta te cancer Surgical History Surgery Date(Month/Year) Repair of Umbilical Hernia w/Mesh (Dr. Darrell guido) 04/2019
== END 2025-08-13 10:04 | disposition home or self-care (01) ==
LOC: HO.ACS 09:32
PROVIDERS: PCP Internal Medicine; Visit Provider Internal Medicine Medical Oncology
DX: Z79.01 Long term (current) use of anticoagulants (principal)

== ENCOUNTER → 2025-08-13 09:32 | Outpatient (BNVA) | payer MEDICARE, SELFPAY | PROVIDERS: PCP Internal Medicine; Visit Provider Internal Medicine Medical Oncology | DX: I48.0 Paroxysmal atrial fibrillation (principal); Z51.81 Encounter for therapeutic drug level monitoring; Z79.01 Long term (current) use of anticoagulants | CPT/HCPCS: 85610; 99211 ==

== ENCOUNTER 2025-08-16 10:35 | Outpatient (REF) | payer MEDICARE, SELFPAY ==
--- OUTSIDE RECORDS SUMMARY | 2025-03-29 06:45 | XMS_ITS ---
Author Organization Jake Pepper MD Address [address] [place], [place] [phone] Care Team Providers Care It Support Manager Name Role Phone Jake Pepper Primary Care Provider Allergies Allergen (clinical drug ingredient) Drug/Non Drug Allergy documented on EMR Reaction Allergy Type Onset Date Status Lamisil rash Drug Allergy Active Vaccine product containing Streptococcus pneumoniae antigen (medicinal product) Pneumovax (uncoded) local reaction redness Allergy Active REASON FOR VISIT F/U ERV Shingles, Accompanied by Medications Medication SIG (Take, Route, Frequency, Duration) Notes Start Date End Date Status Atorvastatin Calcium 40 MG 1 tablet Oral ly Once a day Active Furosemide 40 MG TAKE 1 TABLET BY NIGEL EVERY DAY Active Nystatin 147810 UNIT/GM 1 application Externally Twice a day for 10 days 03/19/2025 Active Diflucan 150 MG 1 tablet Orally for 10 days 03/18/2025 Active Zolpidem Tartrate 5 MG TAKE 1 TABLET BY MOUTH DAILY AT BEDTIME Orally Once a day for 30 days 03/09/2025 Active Warfarin Sodium 3 MG TAKE 2 TO 2 AND 1/2 TABLETS BY MOUTH DAILY for 30 Active Albuterol Sulfate (sensor) 108 (90 Base) MCG/ACT 1 puff as needed Inhalation every 4 hrs Active Carvedilol 3.125 MG 1 tablet with food Orally Twice a day Active Ipratropium-Albuterol 0.5-2.5 (3) MG/3ML 3 ml as needed Inhalation every 6 hrs 10/30/2021 Active valACYclovir HCl 1 GM 1 tablet Orally On ce a day Active Tamsulosin HCl 0.4 MG TAKE 1 CAPSULE BY MOUTH TWICE DAILY Active Nystatin 441516 UNIT/GM 1 application Externally Twice a day for 30 days 05/29/2022 Active Vitamin B12 1000 MCG 1 tablet Orally Onc e a day for 30 day(s) Active Ventolin HFA 108 (90 Base) MCG/ACT 2 puffs as needed Inhalation every 4 hrs for 30 days 01/26/2013 Not-Taking Doxycycline Monohydrate 100 MG 1 capsule Orally Once a day Active Wixela Inhub 250-50 MCG/DOSE 1 puff Inhalation Twice a day Not-Taking oxyBUTYnin Chloride 5 MG TAKE 1 TABLET B Y MOUTH DAILY for 90 Not-Taking Cyclobenzaprine HCl 5 MG 1 tablet Orally Three times a day for 10 days Not-Taking Famotidine 40 MG TK 1 T PO QD HS FOR 14 DAYS Oral for 14 Not-Taking Nystatin-Triamcinolone 828472-5.1 UNIT/GM 1 application Externally Twice a day for 10 days 03/14/2020 Not-Taking Bicalutamide 50 MG 1 tablet Orally Once a day for 30 day(s) Not-Taking Ocuflox 0.3 % 1 drop into affected eye Ophthalmic Four times a day for 7 days 05/29/2022 Not-Takin g Meclizine HCl 25 MG 1 tablet as needed Orally Once a day as needed for 30 days Not-Taking Fioricet 50-300-40 MG 1 capsule as neede d Orally every 12 hrs as needed for 7 days 07/07/2024 Not-Taking amLODIPine Besylate 5 MG 1 tablet Orally Once a day 04/14/2021 Not-Taking Vital Signs Blood pressure systolic 90 mm Hg 03/29/20 25 Blood pressure diastolic 48 mm Hg 025 Height 65 in 03/29/2025 Weight 169 lbs 03/29/2025 BMI 28.12 kg/m2 03/29/2025 weight is down 6 pounds sinc e 03-18-25 Encounters Encounter Location Date Provider Diagnosis Jake Pepper MD [address] [facility] [address] [place], [place] [phone] 03/29/2025 Jake Pepper Essential hypertension I10 ; Panlobular emphysema J43.1 ; Shingles B02.9 and Thrush B37.0 Assessments Encounter Date Diagnosis (ICD Code) Assessment Notes Treatment Notes Treatment Clinical Notes Section Notes 03/29/2025 Essential hypertension (ICD-10 - I10) doing well, will continue current regiment 03/29/2025 Panlobular emphysema (ICD-10 - J43.1) stable, willcontinue current regiment 03/29/2025 Shingles (ICD-10 - B02.9) resolving, will continue curent regiment 03/29/2025 Thrush (ICD-10 - B37.0) resolved Plan Of Treatment Medication Medication Name Sig Start Date Stop Date Notes Furosemide 40 MG TAKE 1 TABLET BY NIGEL TH EVERY DAY Albuterol Sulfate (sensor) 1 08 (90 Base) MCG/ACT 1 puff as needed Inhalation every 4 hrs Carvedilol 3.125 MG 1 tablet with food O rally Twice a day Ipratropium-Albuterol 0.5-2. 5 (3) MG/3ML 3 ml as needed Inhalation every 6 hrs 10/30/2021 valACYclovir HCl 1 GM 1 tablet Orally Once a day Treatment Notes Assessment Notes Essential hypertension doing well, will continue current regiment Panlobular emphysema stable, willcontinu e current regiment Shingles resolving, will cont inue curent regiment Thrush resolved Next Appt Details Provider Name:Jake schmidt, 08/26/2025 10:00:00 AM, [address] [facility], [address], [place], [place], [phone], Provider Name:Jake schmidt, 02/24/2026 07:15:00 AM, [address], [address], [place], [place], [phone], Provider Name:Jake Miller ier, 03/03/2026 09:30:00 AM, [address] [facility] [address], [address], [place], [place], [phone], Progress Notes * Kalyan JUAREZ RDOB: [birth year] (84 yo M)Acc No.[id number]:03/29/2025 Progress Notes Patient: Kalyan KENNEDY Provider: Aly Pepper MD :1940 A ge:84 Y S ex:Male Date:03/29/2025 Address:[address] [place] [address] ABUNDIO DICKERSON [id number] Subjective: * Chief Complaints: * F /U ERV ShinglesAccompanied by * HPI: S ymptom(s): patient is a 84 yo male here for follow up of recent ER visit. * ROS: G eneral/Constitutional: Denies C hills. D enies F atigue. D enies F ever. D enies H eadache. E NT: Denies S ore throat. R espiratory: Denies C ough. D enies S hortness of breath at rest. D enies S hortness of breath with exertion. G astrointestinal: Denies D iarrhea. D enies N ausea. * Medical History: * Surgical History: * Hospitalization/Major Diagno stic Procedure: * Medications: T akingvalACYclovir HCl 1 GM Tablet 1 tablet Orally Once a day Doxycycline Monohydrate 100 MG Capsule 1 capsule Orally Once a day Vitamin B12 1000 MCG Tablet Extended Release 1 tablet Orally Once a day Nystatin 091567 UNIT/GM Ointment 1 application Externally Twice a day Furosemide 40 MG Tablet TAKE 1 TABLET BY MOUTH EVERY DAY Tamsulosin HCl 0.4 MG Capsule TAKE 1 CAPSULE BY MOUTH TWICE DAILY Warfarin Sodium 3 MG Tablet TAKE 2 TO 2 AND 1/2 TABLETS BY MOUTH DAILY Ipratropium-Albuterol 0.5- 2.5 (3) MG/3ML Solution 3 ml as needed Inhalation every 6 hrs Carvedilol 3.125 MG Tablet 1 tablet with food Orally Twice a day Atorvastatin Calcium 40 MG Tablet 1 tablet Orally Once a day Albuterol Sulfate (sensor) 108 (90 Base) MCG/ACT Aerosol Powder Breath Activated 1 puff as needed Inhalation every 4 hrs Zolpidem Tartrate 5 MG Tablet TAKE 1 TABLET BY MOUTH DAILY AT BEDTIME Orally Once a day Diflucan 150 MG Tablet 1 tablet Orally Nystatin 606642 UNIT/GM Cream 1 application Externally Twice a day Taking valACYclovir HCl 1 GM Tablet 1 tablet Orally Once a day Taking Doxycycline Monohydrate 100 MG Capsule 1 capsule Orally Once a day Taking Vitamin B12 1000 MCG Tablet Extended Release 1 tablet Orally Once a day Taking Nystatin 434729 UNIT/GM Ointment 1 application Externally Twice a day Taking Furosemide 40 MG Tablet TAKE 1 TABLET BY MOUTH EVERY DAY Taking Tamsulosin HCl 0.4 MG Capsule TAKE 1 CAPSULE BY MOUTH TWICE DAILY Taking Warfarin Sodium 3 MG Tablet TAKE 2 TO 2 AND 1/2 TABLETS BY MOUTH DAILY Taking Ipratropium-Albuterol 0.5-2.5 (3) MG/3ML Solution 3 ml as needed Inhalation every 6 hrs Taking Carvedilol 3.125 MG Tablet 1 tablet with food Orally Twice a day Taking Atorvastatin Calcium 40 MG Tablet 1 tablet Orally Once a day Taking Albuterol Sulfate (sensor) 108 (90 Base) MCG/ACT Aerosol Powder Breath Activated 1 puff as needed Inhalation every 4 hrs Taking Zolpidem Tartrate 5 MG Tablet TAKE 1 TABLET BY MOUTH DAILY AT BEDTIME Orally Once a day Taking Diflucan 150 MG Tablet 1 tablet Orally Taking Nystatin 859661 UNIT/GM Cream 1 application Externally Twice a day Not-Taking/PRNamLODIPine Besylate 5 MG Tablet 1 tablet Orally Once a day Fioricet 50-300-40 MG Capsule 1 capsule as needed Orally every 12 hrs as needed Meclizine HCl 25 MG Tablet 1 tablet as needed Orally Once a day as needed Ocuflox 0.3 % Solution 1 drop into affected eye Ophthalmic Four times a day Bicalutamide 50 MG Tablet 1 tablet Orally Once a day oxyBUTYnin Chloride 5 MG Tablet TAKE 1 TABLET BY MOUTH DAILY Wixela Inhub 250-50 MCG/DOSE Aerosol Powder Breath Activated 1 puff Inhalation Twice a day Nystatin-Triamcinolone 533630-4.1 UNIT/GM Cream 1 application Externally Twice a day Famotidine 40 MG Tablet TK 1 T PO QD HS FOR 14 DAYS Oral Cyclobenzaprine HCl 5 MG Tablet 1 tablet Orally Three times a day Ventolin HFA 108 (90 Base) MCG/ACT Aerosol Solution 2 puffs as needed Inhalation every 4 hrs Not-Taking/PRN amLODIPine Besylate 5 MG Tablet 1 tablet Orally Once a day Not-Taking/PRN Fioricet 50-300-40 MG Capsule 1 capsule as needed Orally every 12 hrs as needed Not-Taking/PRN Meclizine HCl 25 MG Tablet 1 tablet as needed Orally Once a day as needed Not-Taking/PRN Ocuflox 0.3 % Solution 1 drop into affected eye Ophthalmic Four times a day Not-Taking/PRN Bicalutamide 50 MG Tablet 1 tablet Orally Once a day Not-Taking/PRN oxyBUTYnin Chloride 5 MG Tablet TAKE 1 TABLET BY MOUTH DAILY Not-Taking/PRN Wixela Inhub 250-50 MCG/DOSE Aerosol Powder Breath Activated 1 puff Inhalation Twice a day Not-Taking/PRN Nystatin-Triamcinolone 047641-6.1 UNIT/GM Cream 1 application Externally Twice a day Not-Taking/PRN Famotidine 40 MG Tablet TK 1 T PO QD HS FOR 14 DAYS Oral Not-Taking/PRN Cyclobenzaprine HCl 5 MG Tablet 1 tablet Orally Three times a day Not-Taking/PRN Ventolin HFA 108 (90 Base) MCG/ACT Aerosol Solution 2 puffs as needed Inhalation every 4 hrs * Allergies: P neumovax: local reaction rednessLamisil: rashyes[Allergies Verified] Objective: * Vitals: H t: 65, Wt: 169, BMI:28.12, BP:90/48, Wt-k.66. weight is down 6 pounds since 03-18-25. * Examination: G eneral Examination: GENERAL APPEARANCE: v jude hard of hearing. HEAD: n ormocephalic. EARS: l eft ear with some swelling and no hearing.. ORAL CAVITY: n o lesions. SKIN: g ood turgor. HEART: n o murmurs, rubs, gallops, regular rate and rhythm.? LUNGS: n o wheezes, rales, rhonchi, diminished breath sounds throughout. Assessment: * Assessment: 1. E ssential hypertension - I10 (Primary) 2 . P anlobular emphysema - J43.1 3 . S hingles - B02.9 4 . T hrush - B37.0 Plan: * Treatment: 2. P anlobular emphysema Continue Ipratropium-Albuterol Solution, 0.5-2.5 (3) MG/3ML, 3 ml as needed, Inhalation, every 6 hrs; C ontinue Albuterol Sulfate (sensor) Aerosol Powder Breath Activated, 108 (90 Base) MCG/ACT, 1 puff as needed, Inhalation, every 4 hrs. Notes: stable, willcontinue current regiment 3. S hingles Continue valACYclovir HCl Tablet, 1 GM, 1 tablet, Orally, Once a day. Notes: resolving, will continue curent regiment 4. T hrush Notes: resolved * Procedure Codes: * * Sign off status: Completed true * Provider: Aly Pepper MD Date: 0 03/29/2025 Generated for Mabel trotter/Ashish/Erikasmitting on: 1 10/16/2024 12:26 PM EST History and Physical Notes * HPI (History of Present Illness) Category Sub-Category Detail Notes Category Not es Symptom(s) patient is a 84 yo male here for follow up of recent ER visit Examination Category Sub-Category Detail Notes Category Not es General Examination GENERAL APPEARANCE: very hard of h earing HEAD: normocephalic EARS: left ear with some s welling and no hearing. HEART: no murmurs, rubs, ga llops, regular rate and rhythm LUNGS: no wheezes, rales, r honchi, diminished breath sounds throughout SKIN: good turgor ORAL CAVITY: no lesions
--- OUTSIDE RECORDS SUMMARY | 2025-04-01 05:08 | XMS_ITS ---
Author Organization Jake Pepper MD Address [address] [place], [place] [phone] Care Team Providers Care Salon Receptionist Name Role Phone Jake Pepper Primary Care Provider [phone] REASON FOR VISIT INR5.4 Encounters Encounter Location Date Provider Diagnosis Jake Pepper MD [address] [place], [place] [id number] 04/01/2025 Jake Pepper Plan Of Treatment Next Appt Details Provider Name:Jake schmidt, 08/26/2025 10:00:00 AM, [address] [facility], Suite [facility], [place], [place], [phone], Provider Name:Jake schmidt, 02/24/2026 07:15:00 AM, [address], [address], [place], [id number], Provider Name:Jake Miller kenyar, 03/03/2026 09:30:00 AM, [address], [address], [place], [phone], Progress Notes * Kalyan JUAREZ RDOB: [birth year] (84 yo M)Acc No.[id number]:04/01/2025 Patient: Carmen Kalyan VIRAMONTES :1940 A ge:84 Y S ex:Male Address:[address] [place], [place] [address] [address] * true * Date: Generated for Mabel trotter/Ashish/eTmartinsmitting on: 10/16/2024 12:27 PM EST
--- OUTSIDE RECORDS SUMMARY | 2025-04-05 05:30 | XMS_ITS ---
Author Organization Jake Pepper MD Address [address] [place], [place] [phone] Care Team Providers Care Assessment Analyst Name Role Phone Jake Pepper Primary Care Provider Allergies Allergen (clinical drug ingredient) Drug/Non Drug Allergy documented on EMR Reaction Allergy Type Onset Date Status Lamisil rash Drug Allergy Active Vaccine product containing Streptococcus pneumoniae antigen (medicinal product) Pneumovax (uncoded) local reaction redness Allergy Active REASON FOR VISIT 1 WEEK F/U, Accompanied by Medications Medication SIG (Take, Route, Frequency, Duration) Notes Start Date End Date Status Gabapentin 300 MG 1 capsule Orally twi ce a day for 30 days 04/05/2025 Active Nystatin-Triamcinolone 492959-1.1 UNIT/GM 1 application Externally Twice a day for 10 days 03/14/2020 Not-Taking Famotidine 40 MG TK 1 T PO QD HS FOR 14 DAYS Oral for 14 Not-Taking Cyclobenzaprine HCl 5 MG 1 tablet Orally Three times a day for 10 days Not-Taking Ventolin HFA 108 (90 Base) MCG/ACT 2 puffs as needed Inhalation every 4 hrs for 30 days 01/26/2013 Not-Taking Ocuflox 0.3 % 1 drop into affected eye Ophthalmic Four times a day for 7 days 05/29/2022 Not-Takin g Bicalutamide 50 MG 1 tablet Orally Once a day for 30 day(s) Not-Taking oxyBUTYnin Chloride 5 MG TAKE 1 TABLET B Y MOUTH DAILY for 90 Not-Taking Wixela Inhub 250-50 MCG/DOSE 1 puff Inhalation Twice a day Not-Taking Meclizine HCl 25 MG 1 tablet as needed Orally Once a day as needed for 30 days Not-Taking Carvedilol 3.125 MG 1 tablet with food Orally Twice a day Active Albuterol Sulfate (sensor) 108 (90 Base) MCG/ACT 1 puff as needed Inhalation every 4 hrs Active Furosemide 40 MG TAKE 1 TABLET BY NIGEL TH EVERY DAY Active amLODIPine Besylate 5 MG 1 tablet Orally Once a day 04/14/2021 Not-Taking Fioricet 50-300-40 MG 1 capsule as neede d Orally every 12 hrs as needed for 7 days 07/07/2024 Not-Taking Zolpidem Tartrate 5 MG TAKE 1 TABLET BY MOUTH DAILY AT BEDTIME Orally Once a day for 30 days 03/09/2025 Active Diflucan 150 MG 1 tablet Orally for 10 days 03/18/2025 Not-Taking Nystatin 045370 UNIT/GM 1 application Externally Twice a day for 10 days 03/19/2025 Active valACYclovir HCl 1 GM 1 tablet Orally On ce a day Active Ipratropium-Albuterol 0.5-2.5 (3) MG/3ML 3 ml as needed Inhalation every 6 hrs 10/30/2021 Active Vitamin B12 1000 MCG 1 tablet Orally Onc e a day for 30 day(s) Active Nystatin 819304 UNIT/GM 1 application Externally Twice a day for 30 days 05/29/2022 Active Tamsulosin HCl 0.4 MG TAKE 1 CAPSULE BY MOUTH TWICE DAILY Active Warfarin Sodium 3 MG TAKE 2 TO 2 AND 1/2 TABLETS BY MOUTH DAILY for 30 Active Atorvastatin Calcium 40 MG 1 tablet Oral ly Once a day Active Doxycycline Monohydrate 100 MG 1 capsule Orally Once a day Active Problems Problem Type SNOMED Code ICD Code Onset Dates Problem Status W/U Status Risk Notes Problem Postherpetic neuralgia (7752713) Post herpetic neuralgia (B02.29) Active confirmed Vital Signs Blood pressure systolic 104 mm Hg 04/05/20 25 Blood pressure diastolic 60 mm Hg 025 Height 65 in 04/05/2025 Weight 167 lbs 04/05/2025 BMI 27.79 kg/m2 04/05/2025 weight is down 2 pounds [facility] 03-29-25 Encounters Encounter Location Date Provider Diagnosis Jake Pepper MD [address] [facility] [address] [place], [place] [phone] 04/05/2025 Jake Pepper Post herpetic neuralgia B02.29 ; Skin tear of right forearm without complication, initial encounter S51.801A ; Essential hypertension I10 and Atrial fibrillation, unspecified type I48.91 Assessments Encounter Date Diagnosis (ICD Code) Assessment Notes Treatment Notes Treatment Clinical Notes Section Notes 04/05/2025 Post herpetic neuralgia (ICD-10 - B02.29) patient/ verbalized understanding of medication and directions for use 04/05/2025 Skin tear of right forearm without complication, initial encounter (ICD-10 - S51.801A) will contiue with antibiotic cream and same dressings. looks fine 04/05/2025 Essential hypertension (ICD-10 - I10) doing well, will continue current regiment 04/05/2025 Atrial fibrillation, unspecified type (ICD-10 - I48.91) having trouble with his coumadin. going to check it today Plan Of Treatment Medication Medication Name Sig Start Date Stop Date Notes Gabapentin 300 MG 1 capsule Orally twice a day for 30 days 04/05/2025 Treatment Notes Assessment Notes Post herpetic neuralgia patient/ lisa balized understanding of medication and directions for use Skin tear of right forearm w ithout complication, initial encounter will contiue with antibiotic cream and s james dressings. looks fine Essential hypertension doing well, will continue current regiment Atrial fibrillation, unspecified type gutierrez ving trouble with his coumadin. going to check it today Next Appt Details Follow Up: 2 Weeks, Reason: Provider Name:Jake Miller ier, 08/26/2025 10:00:00 AM, [address], [address], [place], [place], [phone], Provider Name:Jake Miller ier, 02/24/2026 07:15:00 AM, [address], [address], [place], [place], [phone], Provider Name:Jake Miller ier, 03/03/2026 09:30:00 AM, [address], [address], [place], [place], [phone], Progress Notes * Kalyan JUAREZ RDOB: [birth year] (84 yo M)Acc No.[id number]:04/05/2025 Progress Notes Patient: Kalyan KENNEDY Provider: Aly Pepper MD :1940 A ge:84 Y S ex:Male Date:04/05/2025 Address:[address] [place] [address] [place], [id number] Subjective: * Chief Complaints: * 1 WEEK F/UAccompanied by * HPI: S ymptom(s): patient is a 84 yo male here for one week follow up visit/ fell one 3 days ago./ getting pain in trigeminal area and tip of tongue and lower lip are numb. F all Risk: History H ave you had any falls with injury in the past year? Y es tripped on O2 tubing fell onto left arm. 04-03-25. * ROS: G eneral/Constitutional: Denies C hills. D enies F atigue. D enies F ever. D enies H eadache. E NT: Denies S ore throat. R espiratory: Denies C ough. A dmits S hortness of breath at rest. A dmits S hortness of breath with exertion. G astrointestinal: Denies D iarrhea. D enies N ausea. * Medical History: * Surgical History: * Hospitalization/Major Diagno stic Procedure: * Medications: T akingDoxycycline Monohydrate 100 MG Capsule 1 capsule Orally Once a day Vitamin B12 1000 MCG Tablet Extended Release 1 tablet Orally Once a day Nystatin 118707 UNIT/GM Ointment 1 application Externally Twice a day Tamsulosin HCl 0.4 MG Capsule TAKE 1 CAPSULE BY MOUTH TWICE DAILY Warfarin Sodium 3 MG Tablet TAKE 2 TO 2 AND 1/2 TABLETS BY MOUTH DAILY Atorvastatin Calcium 40 MG Tablet 1 tablet Orally Once a day Zolpidem Tartrate 5 MG Tablet TAKE 1 TABLET BY MOUTH DAILY AT BEDTIME Orally Once a day Nystatin 058356 UNIT/GM Cream 1 application Externally Twice a day valACYclovir HCl 1 GM Tablet 1 tablet Orally Once a day Ipratropium-Albuterol 0.5-2.5 (3) MG/3ML Solution 3 ml as needed Inhalation every 6 hrs Carvedilol 3.125 MG Tablet 1 tablet with food Orally Twice a day Albuterol Sulfate (sensor) 108 (90 Base) MCG/ACT Aerosol Powder Breath Activated 1 puff as needed Inhalation every 4 hrs Furosemide 40 MG Tablet TAKE 1 TABLET BY MOUTH EVERY DAY Taking Doxycycline Monohydrate 100 MG Capsule 1 capsule Orally Once a day Taking Vitamin B12 1000 MCG Tablet Extended Release 1 tablet Orally Once a day Taking Nystatin 513864 UNIT/GM Ointment 1 application Externally Twice a day Taking Tamsulosin HCl 0.4 MG Capsule TAKE 1 CAPSULE BY MOUTH TWICE DAILY Taking Warfarin Sodium 3 MG Tablet TAKE 2 TO 2 AND 1/2 TABLETS BY MOUTH DAILY Taking Atorvastatin Calcium 40 MG Tablet 1 tablet Orally Once a day Taking Zolpidem Tartrate 5 MG Tablet TAKE 1 TABLET BY MOUTH DAILY AT BEDTIME Orally Once a day Taking Nystatin 488110 UNIT/GM Cream 1 application Externally Twice a day Taking valACYclovir HCl 1 GM Tablet 1 tablet Orally Once a day Taking Ipratropium- Albuterol 0.5-2.5 (3) MG/3ML Solution 3 ml as needed Inhalation every 6 hrs Taking Carvedilol 3.125 MG Tablet 1 tablet with food Orally Twice a day Taking Albuterol Sulfate (sensor) 108 (90 Base) MCG/ACT Aerosol Powder Breath Activated 1 puff as needed Inhalation every 4 hrs Taking Furosemide 40 MG Tablet TAKE 1 TABLET BY MOUTH EVERY DAY Not-Taking/PRNDiflucan 150 MG Tablet 1 tablet Orally amLODIPine Besylate 5 MG Tablet 1 tablet [...] 1 puff Inhalation Twice a day Nystatin-Triamcinolone 802634-4.1 UNIT/GM Cream 1 application Externally Twice a day Famotidine 40 MG Tablet TK 1 T PO QD HS FOR 14 DAYS Oral Cyclobenzaprine HCl 5 MG Tablet 1 tablet Orally Three times a day Ventolin HFA 108 (90 Base) MCG/ACT Aerosol Solution 2 puffs as needed Inhalation every 4 hrs Not-Taking/PRN Diflucan 150 MG Tablet 1 tablet Orally Not-Taking/PRN amLODIPine Besylate 5 MG Tablet 1 tablet Orally Once a day Not-Taking/PRN Fioricet 50-300-40 MG Capsule 1 capsule as needed Orally every 12 hrs as needed Not- Taking/PRN Meclizine HCl 25 MG Tablet 1 tablet [...] puff Inhalation Twice a day Not-Taking/PRN Nystatin-Triamcinolone 478863-6.1 UNIT/GM Cream 1 application Externally Twice a [...] Objective: * Vitals: H t: 65, Wt: 167, BMI:27.79, BP:104/60, Wt-k.75. weight is down 2 pounds since 03-29-25. * Examination: G eneral Examination: GENERAL APPEARANCE: a lert, well hydrated, in no distress.? SKIN: a bnormal with skin tear on rt arm and is clean. HEART: n o murmurs, rubs, gallops, ,irregularly irregular rhythm. LUNGS: c lear, clear to auscultation bilaterally. ? Assessment: * Assessment: 1. P ost herpetic neuralgia - B02.29 (Primary) 2 . S kin tear of right forearm without complication, initial encounter - S51.801A 3 . E ssential hypertension - I10 4 . A trial fibrillation, unspecified type - I48.91 Plan: * Treatment: 2. S kin tear of right forearm without complication, initial encounter Notes: will contiue with antibiotic cream and same dressings. looks fine 3. E ssential hypertension Notes: doing well, will continue current regiment 4. A trial fibrillation, unspecified type Notes: having trouble with his coumadin. going to check it today * Procedure Codes: * Follow Up: 2 Weeks * * Sign off status: Completed true * Provider: Aly Pepper MD Date: 0 04/05/2025 Generated for Mabel trotter/Ashish/Franciscoitting on: 10/16/2024 12:26 PM EST History and Physical Notes * HPI (History of Present Illness) Category Sub-Category Detail Notes Category Not es Symptom(s) patient is a 84 yo male here for one week follow up visit/ fell one 3 days ago./ getting pain in trigeminal area and tip of tongue and lower lip are numb. Fall Risk History Have you had any falls with injury in the past year?: Yes tripped on O2 tubing fell onto left arm. 04-03-25 Examination Category Sub-Category Detail Notes Category Not es General Examination GENERAL APPEARANCE: alert, w ell hydrated, in no distress HEART: no murmurs, rubs, ga llops, , irregularly irregular rhythm LUNGS: clear, clear to ausc ultation bilaterally SKIN: abnormal with skin t ear on rt arm and is clean
--- OUTSIDE RECORDS SUMMARY | 2025-04-13 09:39 | XMS_ITS ---
Author Organization Jake Pepper MD Address [address] [place] [id number] Care Team Providers Care Digital Printer Operator Name Role Phone Jake Pepper Primary Care Provider [phone] Encounters Encounter Location Date Provider Diagnosis Jake Pepper MD [address] [facility] [address] [place], [place] [phone] 04/13/2025 Jake Pepper Plan Of Treatment Next Appt Details Provider Name:Jake schmidt, 08/26/2025 10:00:00 AM, [address] [place] [address], Suite [facility], [place], [place], [phone], Provider Name:Jake schmidt, 02/24/2026 07:15:00 AM, [address] [place] [address], [address], [place], [place], [phone], Provider Name:Jake Miller ier, 03/03/2026 09:30:00 AM, [address], [address], [place], [phone], Progress Notes * Kalyan JUAREZ RDOB: [birth year] (84 yo M)Acc No.[id number]:04/13/2025 Patient: Carmen VIRAMONTESKalyan :1940 A ge:84 Y S ex:Male Address:[address] [place], [place] [address] [address] * true * Date: Generated for Mabel trotter/Ashish/Erikasmitting on: 10/16/2024 12:25 PM EST
--- OUTSIDE RECORDS SUMMARY | 2025-04-20 05:00 | XMS_ITS ---
Author Organization Jake Pepper MD Address [address] [place], [place] [id number] Care Team Providers Care Academic Records Specialist Name Role Phone Jake Pepper Primary Care Provider Allergies Allergen (clinical drug ingredient) Drug/Non Drug Allergy documented on EMR Reaction Allergy Type Onset Date Status Lamisil rash Drug Allergy Active Vaccine product containing Streptococcus pneumoniae antigen (medicinal product) Pneumovax (uncoded) local reaction redness Allergy Active REASON FOR VISIT 2 WEEK F/U, Accompanied by and son Medications Medication SIG (Take, Route, Frequency, Duration) Notes Start Date End Date Status Atorvastatin Calcium 40 MG 1 tablet Oral ly Once a day Active Tamsulosin HCl 0.4 MG TAKE 1 CAPSULE BY MOUTH TWICE DAILY Active Nystatin 390454 UNIT/GM 1 application Externally Twice a day for 30 days 05/29/2022 Active Nystatin 152098 UNIT/GM 1 application Externally Twice a day for 10 days 03/19/2025 Active Zolpidem Tartrate 5 MG TAKE 1 TABLET BY MOUTH DAILY AT BEDTIME Orally Once a day for 30 days 03/09/2025 Active Doxycycline Monohydrate 100 MG 1 capsule Orally Once a day Not-Taking Ventolin HFA 108 (90 Base) MCG/ACT 2 puffs as needed Inhalation every 4 hrs for 30 days 01/26/2013 Not-Taking Cyclobenzaprine HCl 5 MG 1 tablet Orally Three times a day for 10 days Not-Taking Vitamin B12 1000 MCG 1 tablet Orally Onc e a day for 30 day(s) Active Famotidine 40 MG TK 1 T PO QD HS FOR 14 DAYS Oral for 14 Not-Taking Nystatin-Triamcinolone 557952-4.1 UNIT/GM 1 application Externally Twice a day for 10 days 03/14/2020 Not-Taking Wixela Inhub 250-50 MCG/DOSE 1 puff Inhalation Twice a day Not-Taking oxyBUTYnin Chloride 5 MG TAKE 1 TABLET B Y MOUTH DAILY for 90 Not-Taking Bicalutamide 50 MG 1 tablet Orally Once a day for 30 day(s) Not-Taking Ocuflox 0.3 % 1 drop into affected eye Ophthalmic Four times a day for 7 days 05/29/2022 Not-Takin g Furosemide 40 MG TAKE 1 TABLET BY NIGEL TH EVERY DAY Active amLODIPine Besylate 5 MG 1 tablet Orally Once a day 04/14/2021 Not-Taking Diflucan 150 MG 1 tablet Orally for 10 days 03/18/2025 Not-Taking Meclizine HCl 25 MG 1 tablet as needed Orally Once a day as needed for 30 days Not-Taking Fioricet 50-300-40 MG 1 capsule as neede d Orally every 12 hrs as needed for 7 days 07/07/2024 Not-Taking Warfarin Sodium 3 MG TAKE 2 TO 2 AND 1/2 TABLETS BY MOUTH DAILY Active Albuterol Sulfate (sensor) 108 (90 Base) MCG/ACT 1 puff as needed Inhalation every 4 hrs Active Carvedilol 3.125 MG 1 tablet with food Orally Twice a day Active Ipratropium-Albuterol 0.5-2.5 (3) MG/3ML 3 ml as needed Inhalation every 6 hrs 10/30/2021 Active valACYclovir HCl 1 GM 1 tablet Orally On ce a day Not-Taking Gabapentin 300 MG 1 capsule Orally twi ce a day 04/05/2025 Active Vital Signs Blood pressure systolic 110 mm Hg 04/20/20 25 Blood pressure diastolic 66 mm Hg 025 Height 65 in 04/20/2025 Encounters Encounter Location Date Provider Diagnosis Jake Pepper MD [address] [place] [address] [place] [id number] 04/20/2025 Jake Pepper Post herpetic neuralgia B02.29 ; Skin tear of right forearm without complication, initial encounter S51.801A and Atrial fibrillation, unspecified type I48.91 Assessments Encounter Date Diagnosis (ICD Code) Assessment Notes Treatment Notes Treatment Clinical Notes Section Notes 04/20/2025 Post herpetic neuralgia (ICD-10 - B02.29) getting better on gabapentin and tolerating the gabapentin, will continue current regiment 04/20/2025 Skin tear of right forearm without complication, initial encounter (ICD-10 - S51.801A) has recovered 04/20/2025 Atrial fibrillation, unspecified type (ICD-10 - I48.91) stable, will continue current regiment Plan Of Treatment Medication Medication Name Sig Start Date Stop Date Notes Warfarin Sodium 3 MG TAKE 2 TO 2 AND 1/2 TABLETS BY MOUTH DAILY Gabapentin 300 MG 1 capsule Orally twice a day 04/05/2025 Treatment Notes Assessment Notes Post herpetic neuralgia getting better o n gabapentin and tolerating the gabapentin, will continue current regiment Skin tear of right forearm w ithout complication, initial encounter has recovered Atrial fibrillation, unspecified type st able, will continue current regiment Next Appt Details Follow Up: 3 Months, Reason: Provider Name:Jake schmidt, 08/26/2025 10:00:00 AM, [address] [place] [address], [address] [place] [address], [phone], Provider Name:Jake schmidt, 02/24/2026 07:15:00 AM, [address] [place] [address], [address] [place] [address], [phone], Provider Name:Jake schmidt, 03/03/2026 09:30:00 AM, [address] [place] [address], [address], [phone], Progress Notes * Kalyan JUAREZ RDOB: [birth year] (84 yo M)Acc No.[id number]:04/20/2025 Progress Notes Patient: Kalyan KENNEDY Provider: Aly Pepper MD :1940 A ge:84 Y S ex:Male Date:04/20/2025 Address:[address] [place], [place] [address], [id number] Subjective: * Chief Complaints: * 2 WEEK F/UAccompanied by and son * HPI: S ymptom(s): patient is a 84 yo male here for 2 week follow up visit/ still having trouble getting hearing aid into ear. mouth is still numb upper lip. * ROS: G eneral/Constitutional: Denies C [place]. [...] Hospitalization/Major Diagno stic Procedure: * Medications: T akingVitamin B12 1000 MCG Tablet Extended Release 1 tablet Orally Once a day Nystatin 597812 UNIT/GM Ointment 1 application Externally Twice a day Tamsulosin HCl 0.4 MG Capsule TAKE 1 CAPSULE BY MOUTH TWICE DAILY Atorvastatin Calcium 40 MG Tablet 1 tablet Orally Once a day Zolpidem Tartrate 5 MG Tablet TAKE 1 TABLET BY MOUTH DAILY AT BEDTIME Orally Once a day Nystatin 839949 UNIT/GM Cream 1 application Externally Twice a day Ipratropium-Albuterol 0.5-2.5 (3) MG/3ML Solution 3 ml as needed Inhalation every 6 hrs Carvedilol 3.125 MG Tablet 1 tablet with food Orally Twice a day Albuterol Sulfate (sensor) 108 (90 Base) MCG/ACT Aerosol Powder Breath Activated 1 puff as needed Inhalation every 4 hrs Furosemide 40 MG Tablet TAKE 1 TABLET BY MOUTH EVERY DAY Gabapentin 300 MG Capsule 1 capsule Orally twice a day Warfarin Sodium 3 MG Tablet TAKE 2 TO 2 AND 1/2 TABLETS BY MOUTH DAILY Taking Vitamin B12 1000 MCG Tablet Extended Release 1 tablet Orally Once a day Taking Nystatin 386932 UNIT/GM Ointment 1 application Externally Twice a day Taking Tamsulosin HCl 0.4 MG Capsule TAKE 1 CAPSULE BY MOUTH TWICE DAILY Taking Atorvastatin Calcium 40 MG Tablet 1 tablet Orally Once a day Taking Zolpidem Tartrate 5 MG Tablet TAKE 1 TABLET BY MOUTH DAILY AT BEDTIME Orally Once a day Taking Nystatin 660738 UNIT/GM Cream 1 application Externally Twice a day Taking Ipratropium-Albuterol 0.5-2.5 (3) MG/3ML Solution 3 ml as needed Inhalation every 6 hrs Taking Carvedilol 3.125 MG Tablet 1 tablet with food Orally Twice a day Taking Albuterol Sulfate (sensor) 108 (90 Base) MCG/ACT Aerosol Powder Breath Activated 1 puff as needed Inhalation every 4 hrs Taking Furosemide 40 MG Tablet TAKE 1 TABLET BY MOUTH EVERY DAY Taking Gabapentin 300 MG Capsule 1 capsule Orally twice a day Taking Warfarin Sodium 3 MG Tablet TAKE 2 TO 2 AND 1/2 TABLETS BY MOUTH DAILY Not-Taking/PRNDoxycycline Monohydrate 100 MG Capsule 1 capsule Orally Once a day valACYclovir HCl 1 GM Tablet 1 tablet Orally Once a day Diflucan 150 MG Tablet 1 tablet Orally amLODIPine [...] 1 puff Inhalation Twice a day Nystatin-Triamcinolone 191573-6.1 UNIT/GM Cream 1 application Externally Twice a day Famotidine 40 MG Tablet TK 1 T PO QD HS FOR 14 DAYS Oral Cyclobenzaprine HCl 5 MG Tablet 1 tablet Orally Three times a day Ventolin HFA 108 (90 Base) MCG/ACT Aerosol Solution 2 puffs as needed Inhalation every 4 hrs Medication List reviewed and reconciled with the patientNot-Taking/PRN Doxycycline Monohydrate 100 MG Capsule 1 capsule Orally Once a day Not-Taking/PRN valACYclovir HCl 1 GM Tablet 1 tablet Orally Once a day Not-Taking/PRN Diflucan 150 MG Tablet 1 tablet [...] puff Inhalation Twice a day Not-Taking/PRN Nystatin-Triamcinolone 182414-4.1 UNIT/GM Cream 1 application Externally Twice a day Not-Taking/PRN Famotidine 40 MG Tablet TK 1 T PO QD HS FOR 14 DAYS Oral Not-Taking/PRN Cyclobenzaprine HCl 5 MG Tablet 1 tablet Orally Three times a day Not-Taking/PRN Ventolin HFA 108 (90 Base) MCG/ACT Aerosol Solution 2 puffs as needed Inhalation every 4 hrs Medication List reviewed and reconciled with the patient * Allergies: P neumovax: local reaction rednessLamisil: rashyes[Allergies Verified] Objective: * Vitals: H t: 65, BP:110/66. * Examination: G eneral Examination: GENERAL APPEARANCE: a lert, well hydrated, in no distress.? HEAD: n ormocephalic. EARS: s till swollen left ear cananl. SKIN: g ood turgor. HEART: n o murmurs, rubs, gallops, regular rate and rhythm.? LUNGS: n o wheezes, rales, rhonchi, good air movement, clear to auscultation bilaterally. Assessment: * Assessment: 1. P ost herpetic neuralgia - B02.29 (Primary) 2 . S kin tear of right forearm without complication, initial encounter - S51.316A 3 . A trial fibrillation, unspecified type - I48.91 Plan: * Treatment: 2. S kin tear of right forearm without complication, initial encounter Notes: has recovered 3. A trial fibrillation, unspecified type Continue Warfarin Sodium Tablet, 3 MG, TAKE 2 TO 2 AND 1/2 TABLETS BY MOUTH DAILY. Notes: stable, will continue current regiment * Procedure Codes: * Follow Up: 3 Months * * Sign off status: Completed true * Provider: Aly Pepper MD Date: 0 04/20/2025 Generated for Mabel trotter/Ashish/Franciscoitting on: 1 10/16/2024 12:27 PM EST History and Physical Notes * HPI (History of Present Illness) Category Sub-Category Detail Notes Category Not es Symptom(s) patient is a 84 yo male here for 2 week follow up visit/ still having trouble getting hearing aid into ear. mouth is still numb upper lip Examination Category Sub-Category Detail Notes Category Not es General Examination GENERAL APPEARANCE: alert, w ell hydrated, in no distress HEAD: normocephalic EARS: still swollen left e ar cananl HEART: no murmurs, rubs, ga llops, regular rate and rhythm LUNGS: no wheezes, rales, r honchi, good air movement, clear to auscultation bilaterally SKIN: good turgor
--- OUTSIDE RECORDS SUMMARY | 2025-05-07 05:44 | XMS_ITS ---
Author Organization Jake Pepper MD Address [address] [place], [place] [phone] Care Team Providers Care Diamond Assorter Name Role Phone Jake Pepper Primary Care Provider [phone] REASON FOR VISIT RE GABAPENTIN Encounters Encounter Location Date Provider Diagnosis Jake Pepper MD [address] [place], [place] [phone] 05/07/2025 Jake Pepper Plan Of Treatment Next Appt Details Provider Name:Jake schmidt, 08/26/2025 10:00:00 AM, 10 [facility], [address], [phone], Provider Name:Jake schmidt, 02/24/2026 07:15:00 AM, 10 [facility], [address], [place], [phone], Provider Name:Jake Miller kenyar, 03/03/2026 09:30:00 AM, 10 [facility], [address], [place], [phone], Progress Notes * Kalyan JURAEZ RDOB: [birth year] (84 yo M)Acc No.[id number]:05/07/2025 Patient: Carmen Kalyan VIRAMONTES :1940 A ge:84 Y S ex:Male Address:[address] [place], [place] [address] [place] [address] * true * Date: Generated for Mabel trotter/Ashish/Erikasmitting on: 10/16/2024 12:26 PM EST
--- OUTSIDE RECORDS SUMMARY | 2025-05-11 05:57 | XMS_ITS ---
Author Organization Jake Pepper MD Address [address] [place], [place] [phone] Care Team Providers Care Tram Driver Name Role Phone Jake Pepper Primary Care Provider [phone] REASON FOR VISIT INR of 1.4 Encounters Encounter Location Date Provider Diagnosis Jake Pepper MD [address] [place], [place] [phone] 05/11/2025 Jake Pepper Plan Of Treatment Next Appt Details Provider Name:Jake schmidt, 08/26/2025 10:00:00 AM, 10 [facility], Suite [facility], [place], [place], [phone], Provider Name:Jake schmidt, 02/24/2026 07:15:00 AM, [address], [address], [place], [phone], Provider Name:Jake schmidt, 03/03/2026 09:30:00 AM, [address], [address], [place], [phone], Progress Notes * Kalyan JUAREZ RDOB: [birth year] (84 yo M)Acc No.[id number]:05/11/2025 Patient: Carmen NELLSEANKalyan :1940 A ge:84 Y S ex:Male Address:[address] [place], [place] [address] [address] * true * Date: Generated for Mabel trotter/Ashish/Erikasmitting on: 10/16/2024 12:26 PM EST
--- OUTSIDE RECORDS SUMMARY | 2025-06-09 04:00 | XMS_ITS ---
Author Organization Jake Pepper MD Address [address] [place] [phone] Care Team Providers Care Microwave Technician Name Role Phone Jake Pepper Primary Care Provider REASON FOR VISIT New Refill Request Medications Medication SIG (Take, Route, Fr equency, Duration) Notes Start Date End Date Status Zolpidem Tartrate 5 MG TAKE 1 TABLET BY MOUTH DAILY AT BEDTIME Orally Once a day for 30 days 06/10/2025 Active Encounters Encounter Location Date Provider Diagnosis Jake Pepper MD [address] [place] [id number] 06/09/2025 Jake Pepper Insomnia G47.00 Assessments Encounter [...] Next Appt Details Provider Name:Jake Miller ier, 08/26/2025 10:00:00 AM, [address] [place] [address], Suite [facility], [place], [place], [phone], Provider Name:Jake Miller ier, 02/24/2026 07:15:00 AM, [address] [place] [address], Suite [facility], [place], [place], [phone], Provider Name:Jake Miller ier, 03/03/2026 09:30:00 AM, [address] [place] [address], Suite [facility], [place], [place], [phone], Progress Notes * Kalyan JUAREZ RDOB: [birth year] (84 yo M)Acc No.[id number]:06/09/2025 Patient: Carmen VIRAMONTES Kalyan Joy :1940 A ge:84 Y S ex:Male Address:[address] [place], [place] [address] [address] * Refills Refill Zolpidem Tartrate Tablet, 5 MG, Orally, 30, TAKE 1 TABLET BY MOUTH DAILY AT BEDTIME, Once a day, 30 days, Refills=0 * true * Date: Generated for Mabel trotter/Ahsish/eTransmitting on: 10/16/2024 12:27 PM EST
--- OUTSIDE RECORDS SUMMARY | 2025-06-10 09:00 | XMS_ITS ---
Author Organization Jake Pepper MD Address [address] [place] [phone] Care Team Providers Care Telephone Ad Taker Name Role Phone Jake Pepper Primary Care Provider REASON FOR VISIT New Refill Request Medications Medication SIG (Take, Route, Fr equency, Duration) Notes Start Date End Date Status Gabapentin 300 MG 1 capsule Orally twi ce a day for 30 days 04/05/2025 Active Encounters Encounter Location Date Provider Diagnosis Jake Pepper MD [address] [place] [phone] 06/10/2025 Jake Pepper Post herpetic neuralgia B02.29 Assessments Encounter Date Diagnosis (ICD Code) Assessment Notes Treatment Notes Treatment Clinical Notes Section Notes 06/10/2025 Post herpetic neuralgia (ICD-10 - B02.29) Plan Of Treatment Medication Medication Name Sig Start Date Stop Date Notes Gabapentin 300 MG 1 capsule Orally twice a day for 30 days 04/05/2025 Next Appt Details Provider Name:Jake Mliler ier, 08/26/2025 10:00:00 AM, [address] [place] [address], [place] [address], [place], [place], [phone], Provider Name:Jake Miller ier, 02/24/2026 07:15:00 AM, [address] [place] [address], [place] [address], [place], [place], [phone], Provider Name:Jake Miller ier, 03/03/2026 09:30:00 AM, [address] [place] [address], [place] [address], [place], [place], [phone], Progress Notes * Kalyan JUAREZ RDOB: [birth year] (84 yo M)Acc No.[id number]:06/10/2025 Patient: Carmen NELLCherelleKalyan COFFEY :1940 A ge:84 Y S ex:Male Address:[address] [place], [place] [address] [address] * Refills Refill Gabapentin Capsule, 300 MG, Orally, 60 Capsule, 1 capsule, twice a day, 30 days * true * Date: Generated for Mabel trotter/Ashish/Erikasmitting on: 10/16/2024 12:27 PM EST
--- OUTSIDE RECORDS SUMMARY | 2025-08-10 00:21 | XMS_ITS ---
Author Organization Jake Pepper MD Address [address] [place] [phone] Care Team Providers Care Sandwich Peddler Name Role Phone Jake Pepper Primary Care Provider REASON FOR VISIT New Refill Request Medications Medication SIG (Take, Route, Fr equency, Duration) Notes Start Date End Date Status Gabapentin 300 MG 1 capsule Orally twi ce a day for 30 days 04/05/2025 Active Encounters Encounter Location Date Provider Diagnosis Jake Pepper MD [address] [place] [id number] 08/10/2025 Jake Pepper Post herpetic neuralgia B02.29 [...] Provider Name:Jake Miller ier, 08/26/2025 10:00:00 AM, [address] [place] [address], [address] [facility], [place], [place], [phone], Provider Name:Jake Miller ier, 02/24/2026 07:15:00 AM, [address] [place] [address], [address] [facility], [place], [place], [phone], Provider Name:Jake Miller ier, 03/03/2026 09:30:00 AM, [address] [place] [address], [place] [address], [place], [place], [phone], Progress Notes * Kalyan JUAREZ RDOB: [birth year] (84 yo M)Acc No.[id number]:08/10/2025 Patient: Carmen NELLSEANKalyan :1940 A ge:84 Y S ex:Male Address:[address] [place], [place] [address] [address] * Refills Refill Gabapentin Capsule, 300 MG, Orally, 60 Capsule, 1 capsule, twice a day, 30 days, Refills=3 * true * Date: Generated for Mabel trotter/Ashish/Erikasmitting on: 10/16/2024 12:27 PM EST
--- OUTSIDE RECORDS SUMMARY | 2025-08-16 12:26 | XMS_ITS | Patient Health Record ---
Author Organization [facility] Address [address] [place] [phone] Care Team Providers Care Denture Technician Name Role Phone Jake Pepper MD Primary Care Provider Luther Rajput Jr [facility] Allergies Allergen (clinical drug ingredient) [...] Status Risk Notes Problem Colon cancer screening (568802686) Colon cancer screening (V76.51) Active confirmed Problem Long-term current use of aspirin (8662661003048 03) Aspirin long-term use (V58.66) Active confirmed Plan Of Treatment Future Test Test Name Order Date COLONOSCOPY 07/29/2014 Insurance Providers Payer Name Payer Address Payer Phone Subscriber Number Group Number Insured Name Patient Relationship to Insured Coverage Start Date Coverage End Date [facility] [address] [place] [phone] [id number] CORNELIA JUAREZ Self - patient is the insured Medicare of [place] [employer] [address] [place] [address] [id number] CORNELIA JUAREZ Self - patient is the insured Medical (General) History Medical History History ICD Code prostate problems hypertension elevated cholesterol Surgical History Surgery Date(Month/Year) back surgery knee surgery
--- OUTSIDE RECORDS SUMMARY | 2025-08-16 12:26 | XMS_ITS | Encounter Summary ---
Author Organization [facility] Address [address] [place] [address] Care Team Providers Care Egg Trayer Name Role Phone Jake Pepper MD Primary Care Provider Darleen vailable Encounter Details Date Type Department Care Team Description 03/27/2018 Release of Information Medical Records [address] [place] [id number] Abstract, Provider Social History Tobacco Use Types [...] on filedocumented in this encounter Care Teams Egg Trayer Relationship Specialty Start Date End Date Jake Pepper MD PCP - General Internal Medicine 02/24/18 documented as of this encounter
--- OUTSIDE RECORDS SUMMARY | 2025-08-16 12:26 | XMS_ITS | Clinical Summary ---
Author Organization [facility] Address [address] [facility] [place] [address] Care Team Providers Care Inspector Fabric Name Role Phone Jake Pepper MD Primary [...] 07/09, 07/10/2018, Additional history exists Care Teams Inspector Fabric Relationship Specialty Start Date End Date Jake Pepper MD PCP - General Internal Medicine 02/24/18
--- OUTSIDE RECORDS SUMMARY | 2025-08-16 12:27 | XMS_ITS | Patient Health Record ---
Author Organization Jake Pepper MD Address [address] [place], [place] [id number] Care Team Providers Care Independent Insurance Adjuster Name Role Phone Jake Pepper Primary Care Provider Allergies Allergen (clinical drug ingredient) Drug/Non Drug Allergy documented on EMR Reaction Allergy Type Onset Date Status Lamisil rash Drug Allergy Active Vaccine product containing Streptococcus pneumoniae antigen (medicinal product) Pneumovax (uncoded) local reaction redness Allergy Active Results Component Value Reference Range Notes Liver Panel Reviewed date:08/20/2024 03:17:01 PM Interpretation: Performing Lab:[facility], [address] [place] [phone] Notes/Report: Bilirubin Total 0.7 0.0-1.0 mg/dL Bilirubin Direct 0.3 0.0-0.5 mg/dL Aspartate Amino Transferase 42 5-37 U/L Alanine Aminotransferase 24 0-40 U/L Total Protein 7.3 6.5-8.0 g/dL Albumin Level 3.9 3.5-5.0 g/dL Alkaline Phosphatase 94 39-117 U/L Lipid Panel with Reflex Reviewed date:08/20/2024 03:16:31 PM Interpretation: Performing Lab:[facility], [address] [place] [phone] Notes/Report: Triglycerides 135 <150 mg/dL Desirable Triglyceride: [...] ff Reviewed date:02/21/2025 05:38:19 PM Interpretation: Performing Lab:[facility], [address] [place] [phone] Notes/Report: White Blood Count 10.0 4.8-10.8 X10*3/uL [...] NRBC Abs Auto 0.000 0.0-0.012 X10*3/uL Comprehensive [place]. Panel Fa st Reviewed date:02/21/2025 05:34:56 PM Interpretation: Performing Lab:[facility], [address] [place] [phone] Notes/Report: Sodium 143 135-145 mmol/L Potassium 3.8 [...] PROFILE Reviewed date:02/19/2025 12:44:54 PM Interpretation: Performing Lab:[address] [phone] Notes/Report: Iron 63 45-160 mcg/dL Total Iron Binding Capacity 271 228-428 mcg/dL Percent Iron Saturation 23 15-50 % Unsaturated Iron Binding 208 Lipid Panel Reviewed date:02/19/2025 12:44:14 PM Interpretation: Performing Lab:[facility], [address] [place] [phone] Notes/Report: Triglycerides 129 <150 mg/dL Desirable Triglyceride: [...] (Free>4and<10) Reviewed date:02/19/2025 12:45:04 PM Interpretation: Performing Lab:[facility], [address] [place] [phone] Notes/Report: PSA,Total (Free>4and<10) < 0.10 0.00-4.00 ng/mL [...] t Reviewed date:02/21/2025 05:39:18 PM Interpretation: Performing Lab:[facility], [address] [place] [phone] Notes/Report: Urine, Clean Catch Color Urine Dark Yellow Appearance Urine Clear PH 6.5 5.0-9.0 Glucose Urine UA Negative Negative mg/dL Urine Blood Negative Negative Specific Vian - Urine 1.025 1.005-1.025 Urine Protein 30 (1+) Neg-Trace mg/dL Urine Ketones Trace Negative mg/dL Nitrite Urine Negative Negative Leukocyte Esterase Urine Negative Negative RBC Urine 0-2 0-2 /HPF WBC Urine 0-5 0-5 /HPF Squamous Epithelial Cell Urine 0-2 0-2 /HPF Bacteria Urine None Seen None Seen Hyaline Casts Urine 0-2 0-2 /LPF Hold Gold Reviewed date:08/20/2024 12:43:27 PM Interpretation: Performing Lab:[facility], [address] [place] [phone] Notes/Report: Hold Gold See Note Specimen held untested for 24 hours; Call to request Chemistry testing. INR WHOLE BLOOD POC Reviewed date:08/25/2024 07:57:52 PM Interpretation: Performing Lab:[facility], [address] [place] [phone] Notes/Report: PT, INR - Anti Coag Clinic 2.1 0.9-1.1 METER #: [id number] INTERNATIONAL NORMALIZED RATIO (INR) REFERENCE RANGES Reference [...] OC Reviewed date:08/25/2024 07:57:59 PM Interpretation: Performing Lab:[facility], [address] [place] [phone] Notes/Report: Prothrombin Time Whole Bld POC 25.6 11.1-13.5 sec INR WHOLE BLOOD POC Reviewed date:09/15/2024 09:59:14 AM Interpretation: Performing Lab:[facility], [address] [place] [phone] Notes/Report: PT, INR - Anti Coag Clinic 3.0 0.9-1.1 METER #: [id number] INTERNATIONAL NORMALIZED RATIO (INR) REFERENCE RANGES Reference [...] OC Reviewed date:09/15/2024 12:33:10 PM Interpretation: Performing Lab:[facility], [address] [place] [phone] Notes/Report: Prothrombin Time Whole Bld POC 35.5 11.1-13.5 sec INR WHOLE BLOOD POC Reviewed date:10/06/2024 04:22:44 PM Interpretation: Performing Lab:[facility], [address] [place] [phone] Notes/Report: PT, INR - Anti Coag Clinic 2.0 0.9-1.1 METER #: [id number] INTERNATIONAL NORMALIZED RATIO (INR) REFERENCE RANGES Reference [...] OC Reviewed date:10/06/2024 04:22:36 PM Interpretation: Performing Lab:[facility], [address] [place] [phone] Notes/Report: Prothrombin Time Whole Bld POC 23.5 11.1-13.5 sec Prostate Specific Antigen Reviewed date:10/09/2024 11:16:46 AM Interpretation: Performing Lab:[facility], [address] [place] [phone] Notes/Report: Prostate Specific Antigen < 0.10 <0.05-4.0 ng/mL PSA methodology: Fan Piernity i Chemiluminescent Microparticle Immunoassay (CMIA) INR WHOLE BLOOD POC Reviewed date:10/27/2024 11:14:11 AM Interpretation: Performing Lab:[facility], [address] [place] [phone] Notes/Report: PT, INR - Anti Coag Clinic 2.0 0.9-1.1 METER #: [id number] INTERNATIONAL NORMALIZED RATIO (INR) REFERENCE RANGES Reference [...] OC Reviewed date:10/27/2024 11:14:04 AM Interpretation: Performing Lab:[facility], [address] [place] [phone] Notes/Report: Prothrombin Time Whole Bld POC 23.7 11.1-13.5 sec INR WHOLE BLOOD POC Reviewed date:11/10/2024 12:18:48 PM Interpretation: Performing Lab:[facility], [address] [place] [phone] Notes/Report: PT, INR - Anti Coag Clinic 1.8 0.9-1.1 METER #: [id number] INTERNATIONAL NORMALIZED RATIO (INR) REFERENCE RANGES Reference [...] OC Reviewed date:11/10/2024 12:18:37 PM Interpretation: Performing Lab:[facility], [address] [place] [phone] Notes/Report: Prothrombin Time Whole Bld POC 21.5 11.1-13.5 sec INR WHOLE BLOOD POC Reviewed date:11/24/2024 12:04:29 PM Interpretation: Performing Lab:[facility], [address] [place] [phone] Notes/Report: PT, INR - Anti Coag Clinic 2.4 0.9-1.1 METER #: [id number] INTERNATIONAL NORMALIZED RATIO (INR) REFERENCE RANGES Reference [...] OC Reviewed date:11/24/2024 12:04:21 PM Interpretation: Performing Lab:[facility], [address] [place] [phone] Notes/Report: Prothrombin Time Whole Bld POC 28.2 11.1-13.5 sec INR WHOLE BLOOD POC Reviewed date:12/17/2024 12:38:14 PM Interpretation: Performing Lab:[facility], [address] [place] [phone] Notes/Report: PT, INR - Anti Coag Clinic 2.0 0.9-1.1 METER #: [id number] INTERNATIONAL NORMALIZED RATIO (INR) REFERENCE RANGES Reference [...] OC Reviewed date:12/17/2024 12:51:29 PM Interpretation: Performing Lab:[facility], [address] [place] [phone] Notes/Report: Prothrombin Time Whole Bld POC 23.9 11.1-13.5 sec INR WHOLE BLOOD POC Reviewed date:01/07/2025 10:59:51 AM Interpretation: Performing Lab:[facility], [address] [place] [phone] Notes/Report: PT, INR - Anti Coag Clinic 2.2 0.9-1.1 METER #: [id number] INTERNATIONAL NORMALIZED RATIO (INR) REFERENCE RANGES Reference [...] OC Reviewed date:01/07/2025 10:59:22 AM Interpretation: Performing Lab:[facility], [address] [place] [phone] Notes/Report: Prothrombin Time Whole Bld POC 26.4 11.1-13.5 sec INR WHOLE BLOOD POC Reviewed date:02/04/2025 02:25:43 PM Interpretation: Performing Lab:[facility], [address] [place] [phone] Notes/Report: PT, INR - Anti Coag Clinic 3.3 0.9-1.1 METER #: [id number] INTERNATIONAL NORMALIZED RATIO (INR) REFERENCE RANGES Reference [...] OC Reviewed date:02/04/2025 11:35:29 AM Interpretation: Performing Lab:[facility], [address] [place] [phone] Notes/Report: Prothrombin Time Whole Bld POC 39.1 11.1-13.5 sec INR WHOLE BLOOD POC Reviewed date:03/04/2025 10:01:13 AM Interpretation: Performing Lab:[facility], [address] [place] [phone] Notes/Report: PT, INR - Anti Coag Clinic 2.6 0.9-1.1 METER #: [id number] INTERNATIONAL NORMALIZED RATIO (INR) REFERENCE RANGES Reference [...] OC Reviewed date:03/04/2025 10:01:06 AM Interpretation: Performing Lab:[facility], [address] [place] [phone] Notes/Report: Prothrombin Time Whole Bld POC 31.0 11.1-13.5 sec Complete Blood Count Auto Di ff Reviewed date:03/21/2025 07:34:37 PM Interpretation: Performing Lab:[address] [phone] Notes/Report: White Blood Count 7.1 4.8-10.8 X10*3/uL [...] INR Reviewed date:03/21/2025 07:30:57 PM Interpretation: Performing Lab:[address] [phone] Notes/Report: Prothrombin Time 30.9 10.9-12.4 SEC INTERNATIONAL [...] Microscopic Reviewed date:03/21/2025 07:33:45 PM Interpretation: Performing Lab:[address] [phone] Notes/Report: Color Urine Yellow Appearance Urine Clear PH 6.5 5.0-9.0 Glucose Urine UA Negative Negative mg/dL Urine Blood Negative Negative Specific Vian - Urine >= 1.030 1.005-1.025 Urine Protein 100 (2+) Neg-Trace mg/dL Urine Ketones 15 Negative mg/dL Nitrite Urine Negative Negative Leukocyte Esterase Urine Negative Negative RBC Urine 0-2 0-2 /HPF WBC Urine 0-5 0-5 /HPF Squamous Epithelial Cell Urine 3-5 0-2 /HPF Bacteria Urine None Seen None Seen Hyaline Casts Urine 11-20 0-2 /LPF Comprehensive Met. Panel Reviewed date:03/21/2025 07:33:21 PM Interpretation: Performing Lab:[address] [phone] Notes/Report: Sodium 143 135-145 mmol/L Potassium 3.8 [...] Acid Reviewed date:03/21/2025 07:30:17 PM Interpretation: Performing Lab:[address] [phone] Notes/Report: Lactic Acid 0.9 0.5-2.0 mmol/L Magnesium Reviewed date:03/21/2025 07:31:06 PM Interpretation: Performing Lab:[address] [phone] Notes/Report: Magnesium 1.9 1.6-2.6 mg/dL Troponin-I High Sensitivity Reviewed date:03/21/2025 07:30:47 PM Interpretation: Performing Lab:[facility], [address] [place] [phone] Notes/Report: Troponin-I High Sensitivity 29.0 <3.5-35.0 ng/L The Robert high sensitivity Troponin-I results should be used in conjunction with other diagnostic information such as ECG, clinical observations and information, and patient symptoms to aid in the diagnosis of CT. B Type Natriuretic Peptide Reviewed date:03/21/2025 07:31:15 PM Interpretation: Performing Lab:[address] [phone] Notes/Report: B Type Natriuretic Peptide 214 <100 pg/mL Gram stain Reviewed date:03/23/2025 10:18:58 AM Interpretation: Performing Lab:[address] [phone] Notes/Report: Gram stain Gram stain results: Gram stain No polys Gram stain 2+ epithelial cells Gram stain 3+ Gram-positive cocci SARS-CoV2/FLU/RSV Reviewed date:03/21/2025 07:30:40 PM Interpretation: Performing Lab:[address] [phone] Notes/Report: Influenza A PCR NEGATIVE Negative Influenza [...] by authorized laboratories. Testing performed on the [employer] GeneXpert utilizing real-time RT-PCR. All SARS CoV2 and positive influenza A/B results are reported to [facility]. Blood Culture (First) Reviewed date:03/26/2025 04:21:01 PM Interpretation: Performing Lab:[facility], [address] [place] [phone] Notes/Report: Blood Culture (First) No growth after 5 days. Blood Culture (Second) Reviewed date:03/26/2025 04:21:09 PM Interpretation: Performing Lab:[facility], [address] [place] [phone] Notes/Report: Blood Culture (Second) No growth after 5 days. Venous Blood Gases - POC Reviewed date:03/21/2025 07:30:11 PM Interpretation: Performing Lab:[facility], [address] [place] [phone] Notes/Report: VBG pH 7.54 7.32-7.43 METER #: [id number] additional_comment: Cb mcmold VBG pCO2 56 METER #: [id number] additional_comment: Cb mcmold VBG pO2 56 METER #: [id number] additional_comment: Cb mcmold VBG Base Excess 22.3 METER #: [id number] additional_comment: Cb mcmold VBG HCO3 48 22-26 mmol/L METER #: [id number] additional_comment: Cb mcmold VBG O2 % Saturation 88.0 METER #: [id number] additional_comment: Sushant singh Routine Culture Reviewed date:03/23/2025 10:20:42 AM Interpretation: Performing Lab:[facility], [address] [place] [phone] Notes/Report: Routine Culture Report - external Routine Culture 4+ Mixed skin ricci CT soft tissue neck w con Reviewed date:03/21/2025 07:30:02 PM Interpretation: Performing Lab: Notes/Report: [address] [address] [address] Scan Report Signed Patient: Kalyan Nguyen MR#: [id number] 2742 : 1940 Acct:[id number] Age/Sex: 84 / M ADM Date: 03/20/25 Loc: [facility] [place]: Zoraida Donovan MD Ordering Physician: Nilsa Card Date of Service: 03/20/25 Procedure(s): CT soft tissue neck w IV con Accession Number(s): [id number] cc: Nilsa Card [facility]; Jake Pepper MD Report Number: [id number]: Total DLP = 599.99 mGy-cm CLINICAL HISTORY: [...] in OV> 03/20/252104 DD/ 03 TD/TT: 03/20/252103 Director Of Programming: [address] [address] [address] Scan Report Signed Patient: Miguel Nguyen MR#: [id number] 2742 : 1940 Acct:[id number] Age/Sex: 84 / M ADM Date: 03/20/25 Loc: [place] [address]: Zoraida Donovan MD Ordering Physician: Nilsa Card [facility] Date of Service: 03/20/25 Procedure(s): CT sof t tissue neck w IV con Accession Number(s): [id number] cc: Nilsa Card [employer]; Jake Pepper MD Report Number: [id number]: Total DLP = 599.99 mGy-cm CLINICAL HISTORY: [...] in OV> 03/20/252104 DD/ 03 TD/TT: 03/20/252103 Director Of Programming: CT head/brain wo con Reviewed date:03/21/2025 07:29:22 PM Interpretation: Performing Lab: Notes/Report: [address] [address] [address] Scan Report Signed Patient: Kalyan Nguyen MR#: [id number] 2742 : 1940 Acct:[id number] Age/Sex: 84 / M ADM Date: 03/20/25 [facility] [address]: Zoraida Donovan MD Ordering Physician: Nilsa Card Date of Service: 03/20/25 Procedure(s): CT head/brain wo IV con Accession Number(s): [id number] cc: Nilsa Card; Jake Pepper MD Report Number: [id number]: Total DLP = 914.64 mGy-cm CLINICAL HISTORY: [...] in OV> 03/20/252105 DD/ 04 TD/TT: 03/20/252104 Director Of Programming: [place] [address] [address] Scan Report Signed Patient: Miguel Nguyen MR#: [id number] 2742 : 1940 Acct:[id number] Age/Sex: 84 / M ADM Date: 03/20/25 Loc: [place] [address]: Zoraida Donovan MD Ordering Physician: Nilsa Card Date of Service: 03/20/25 Procedure(s): CT head/brain wo IV con Accession Number(s): [id number] cc: Nilsa Card; Jake Pepper MD Report Number: [id number]: Total DLP = 914.64 mGy-cm CLINICAL HISTORY: [...] in OV> 03/20/252105 DD/ 04 TD/TT: 03/20/252104 Director Of Programming: XR chest 2V Reviewed date:03/21/2025 07:32:02 PM Interpretation: Performing Lab: Notes/Report: [address] [address] XRay Report Signed Patient: Kalyan Nguyen MR#: [id number] 2742 : 1940 Acct:[id number] Age/Sex: 84 / M ADM Date: 03/20/25 Loc: [facility] Attending Dr: Ordering Physician: Lisette Graves NP Date of Service: 03/20/25 Procedure(s): XR chest 2V Accession Number(s): [id number] cc: Jake Pepper MD; Lisette Graves NP [...] in OV> 03/20/251727 DD/ 26 TD/TT: 03/20/251726 Director Of Programming: [address] [address] XRay Report Signed Patient: Miguel Nguyen MR#: [id number] 2742 : 1940 Acct:[id number] Age/Sex: 84 / M ADM Date: 03/20/25 Loc: [facility] Attending Dr: Ordering Physician: Lisette Graves NP Date of Service: 03/20/25 Procedure(s): XR rhina st 2V Accession Number(s): [id number] cc: Jake Pepper MD; Lisette Graves NP [...] OV> 03/20/25 1728 DD/ 172 TD/TT: 03/20/251726 Director Of Programming: Troponin-I High Sensitivity Reviewed date:03/21/2025 07:31:34 PM Interpretation: Performing Lab:[facility], [address] [place] [phone] Notes/Report: Troponin-I High Sensitivity 24.4 <3.5-35.0 ng/L The Robert high sensitivity Troponin-I results should be used in conjunction with other diagnostic information such as ECG, clinical observations and information, and patient symptoms to aid in the diagnosis of CT. Complete Blood Count Auto Di ff Reviewed date:03/21/2025 07:34:16 PM Interpretation: Performing Lab:[facility], [address] [place] [phone] Notes/Report: White Blood Count 6.6 4.8-10.8 X10*3/uL [...] INR Reviewed date:03/21/2025 07:32:30 PM Interpretation: Performing Lab:[facility], [address] [place] [phone] Notes/Report: Prothrombin Time 41.4 10.9-12.4 SEC INTERNATIONAL [...] Panel Reviewed date:03/21/2025 07:32:58 PM Interpretation: Performing Lab:[address] [phone] Notes/Report: Sodium 142 135-145 mmol/L Potassium 3.4 [...] T4 Reviewed date:03/21/2025 07:31:25 PM Interpretation: Performing Lab:[address] [phone] Notes/Report: TSH reflex Free T4 1.34 0.32-4.0 uIU/mL Respiratory Panel Reviewed date:03/21/2025 07:28:57 PM Interpretation: Performing Lab:[address] [address] Notes/Report: Adenovirus PCR Not Detected Not Detect. [...] testing should be considered. Results reported to [facility]. This test has been authorized [...] is performed by Multiplexed PCR, utilizing the UNI5 Array. Prothrombin Time INR Reviewed date:03/22/2025 11:40:38 AM Interpretation: Performing Lab:[facility], [address] [place] [phone] Notes/Report: Prothrombin Time 55.7 10.9-12.4 SEC INTERNATIONAL [...] Panel Reviewed date:03/22/2025 12:35:51 PM Interpretation: Performing Lab:[address] [address] Notes/Report: Sodium 138 135-145 mmol/L Potassium 4.1 [...] Random Reviewed date:03/22/2025 04:33:37 PM Interpretation: Performing Lab:[facility], [address] [place] [phone] Notes/Report: Vancomycin Random 13.0 15-20 mcg/mL Prothrombin Time INR Reviewed date:03/23/2025 10:14:22 AM Interpretation: Performing Lab:[facility], [address] [place] [phone] Notes/Report: Prothrombin Time 49.6 10.9-12.4 SEC INTERNATIONAL [...] Creatinine Reviewed date:03/23/2025 10:14:33 AM Interpretation: Performing Lab:[facility], [address] [place] [phone] Notes/Report: Creatinine 0.99 0.5-1.4 mg/dL Creatinine Clr [...] POC Reviewed date:04/01/2025 02:15:11 PM Interpretation: Performing Lab:[address] [address] Notes/Report: PT, INR - Anti Coag Clinic 5.4 0.9-1.1 METER #: [id number] Asymptomatic Cleaned Meter Doctor Notified INTERNATIONAL NORMALIZED [...] OC Reviewed date:04/01/2025 02:14:25 PM Interpretation: Performing Lab:[facility], [address] [place] [phone] Notes/Report: Prothrombin Time Whole Bld POC 65.0 11.1-13.5 sec INR WHOLE BLOOD POC Reviewed date:04/05/2025 01:00:12 PM Interpretation: Performing Lab:[facility], [address] [place] [phone] Notes/Report: PT, INR - Anti Coag Clinic 4.7 0.9-1.1 METER #: [id number] INTERNATIONAL NORMALIZED RATIO (INR) REFERENCE RANGES Reference [...] OC Reviewed date:04/05/2025 01:00:04 PM Interpretation: Performing Lab:[facility], [address] [place] [phone] Notes/Report: Prothrombin Time Whole Bld POC 55.9 11.1-13.5 sec INR WHOLE BLOOD POC Reviewed date:04/12/2025 12:38:27 PM Interpretation: Performing Lab:[facility], [address] [place] [phone] Notes/Report: PT, INR - Anti Coag Clinic 4.1 0.9-1.1 METER #: [id number] INTERNATIONAL NORMALIZED RATIO (INR) REFERENCE RANGES Reference [...] OC Reviewed date:04/12/2025 12:38:37 PM Interpretation: Performing Lab:[facility], [address] [place] [phone] Notes/Report: Prothrombin Time Whole Bld POC 49.7 11.1-13.5 sec INR WHOLE BLOOD POC Reviewed date:04/15/2025 04:00:41 PM Interpretation: Performing Lab:[facility], [address] [place] [phone] Notes/Report: PT, INR - Anti Coag Clinic 4.2 0.9-1.1 METER #: [id number] INTERNATIONAL NORMALIZED RATIO (INR) REFERENCE RANGES Reference [...] OC Reviewed date:04/15/2025 04:00:48 PM Interpretation: Performing Lab:[facility], [address] [place] [phone] Notes/Report: Prothrombin Time Whole Bld POC 50.7 11.1-13.5 sec INR WHOLE BLOOD POC Reviewed date:04/19/2025 01:36:50 PM Interpretation: Performing Lab:[facility], [address] [place] [phone] Notes/Report: PT, INR - Anti Coag Clinic 2.7 0.9-1.1 METER #: [id number] INTERNATIONAL NORMALIZED RATIO (INR) REFERENCE RANGES Reference [...] OC Reviewed date:04/19/2025 01:36:41 PM Interpretation: Performing Lab:[facility], [address] [place] [phone] Notes/Report: Prothrombin Time Whole Bld POC 31.9 11.1-13.5 sec INR WHOLE BLOOD POC Reviewed date:04/27/2025 12:19:28 PM Interpretation: Performing Lab:[facility], [address] [place] [phone] Notes/Report: PT, INR - Anti Coag Clinic 2.4 0.9-1.1 METER #: [id number] INTERNATIONAL NORMALIZED RATIO (INR) REFERENCE RANGES Reference [...] OC Reviewed date:04/27/2025 12:19:14 PM Interpretation: Performing Lab:[address] [phone] Notes/Report: Prothrombin Time Whole Bld POC 29.1 11.1-13.5 sec INR WHOLE BLOOD POC Reviewed date:05/11/2025 02:35:09 PM Interpretation: Performing Lab:[facility], [address] [place] [phone] Notes/Report: PT, INR - Anti Coag Clinic 1.4 0.9-1.1 METER #: [id number] Asymptomatic Doctor Notified INTERNATIONAL NORMALIZED RATIO (INR) [...] OC Reviewed date:05/11/2025 02:31:58 PM Interpretation: Performing Lab:[address] [address] Notes/Report: Prothrombin Time Whole Bld POC 16.7 11.1-13.5 sec INR WHOLE BLOOD POC Reviewed date:05/14/2025 04:20:53 PM Interpretation: Performing Lab:[address] [address] Notes/Report: PT, INR - Anti Coag Clinic 1.6 0.9-1.1 METER #: [id number] INTERNATIONAL NORMALIZED RATIO (INR) REFERENCE RANGES Reference [...] OC Reviewed date:05/14/2025 04:28:14 PM Interpretation: Performing Lab:[facility], [address] [place] [phone] Notes/Report: Prothrombin Time Whole Bld POC 19.6 11.1-13.5 sec INR WHOLE BLOOD POC Reviewed date:05/20/2025 12:36:55 PM Interpretation: Performing Lab:[facility], [address] [place] [phone] Notes/Report: PT, INR - [facility] 1.6 0.9-1.1 METER #: [id number] INTERNATIONAL NORMALIZED RATIO (INR) REFERENCE RANGES Reference [...] OC Reviewed date:05/20/2025 12:36:42 PM Interpretation: Performing Lab:[facility], [address] [place] [phone] Notes/Report: Prothrombin Time Whole Bld POC 19.8 11.1-13.5 sec INR WHOLE BLOOD POC Reviewed date:05/27/2025 12:31:20 PM Interpretation: Performing Lab:[facility], [address] [place] [phone] Notes/Report: PT, INR - [facility] 1.8 0.9-1.1 METER #: [id number] INTERNATIONAL NORMALIZED RATIO (INR) REFERENCE RANGES Reference [...] OC Reviewed date:05/27/2025 12:31:13 PM Interpretation: Performing Lab:[facility], [address] [place] [phone] Notes/Report: Prothrombin Time Whole Bld POC 21.4 11.1-13.5 sec Prostate Specific Antigen Reviewed date:06/03/2025 05:00:17 PM Interpretation: Performing Lab:[facility], [address] [place] [phone] Notes/Report: Prostate Specific Antigen < 0.10 <0.05-4.0 ng/mL PSA methodology: Social Touch Alinity i Chemiluminescent Microparticle Immunoassay (CMIA) INR WHOLE BLOOD POC Reviewed date:06/04/2025 05:07:03 PM Interpretation: Performing Lab:[facility], [address] [place] [phone] Notes/Report: PT, INR - [facility]ag [facility] 2.1 0.9-1.1 METER #: [id number] INTERNATIONAL NORMALIZED RATIO (INR) REFERENCE RANGES Reference [...] OC Reviewed date:06/04/2025 06:43:58 PM Interpretation: Performing Lab:[facility], [address] [place] [phone] Notes/Report: Prothrombin Time Whole Bld POC 25.7 11.1-13.5 sec INR WHOLE BLOOD POC Reviewed date:06/11/2025 12:45:15 PM Interpretation: Performing Lab:[facility], [address] [place] [phone] Notes/Report: PT, INR - [facility] 1.9 0.9-1.1 METER #: [id number] INTERNATIONAL NORMALIZED RATIO (INR) REFERENCE RANGES Reference [...] OC Reviewed date:06/11/2025 12:45:05 PM Interpretation: Performing Lab:[facility], [address] [place] [phone] Notes/Report: Prothrombin Time Whole Bld POC 23.2 11.1-13.5 sec INR WHOLE BLOOD POC Reviewed date:06/18/2025 12:35:04 PM Interpretation: Performing Lab:[facility], [address] [place] [phone] Notes/Report: PT, INR - Anti Coag Clinic 2.8 0.9-1.1 METER #: [id number] INTERNATIONAL NORMALIZED RATIO (INR) REFERENCE RANGES Reference [...] OC Reviewed date:06/18/2025 12:35:12 PM Interpretation: Performing Lab:[facility], [address] [place] [phone] Notes/Report: Prothrombin Time Whole Bld POC 33.9 11.1-13.5 sec INR WHOLE BLOOD POC Reviewed date:07/02/2025 10:07:21 AM Interpretation: Performing Lab:[facility], [address] [place] [phone] Notes/Report: PT, INR - Anti Coag Clinic 2.2 0.9-1.1 METER #: [id number] INTERNATIONAL NORMALIZED RATIO (INR) REFERENCE RANGES Reference [...] OC Reviewed date:07/02/2025 10:07:35 AM Interpretation: Performing Lab:[facility], [address] [place] [phone] Notes/Report: Prothrombin Time Whole Bld POC 26.1 11.1-13.5 sec INR WHOLE BLOOD POC Reviewed date:07/23/2025 12:31:21 PM Interpretation: Performing Lab:[facility], [address] [place] [phone] Notes/Report: PT, INR - Anti Coag Clinic 3.0 0.9-1.1 METER #: [id number] INTERNATIONAL NORMALIZED RATIO (INR) REFERENCE RANGES Reference [...] OC Reviewed date:07/23/2025 12:31:13 PM Interpretation: Performing Lab:[facility], [address] [place] [phone] Notes/Report: Prothrombin Time Whole Bld POC 35.8 11.1-13.5 sec INR WHOLE BLOOD POC Reviewed date:08/13/2025 12:26:58 PM Interpretation: Performing Lab:[facility], [address] [place] [phone] Notes/Report: PT, INR - Anti Coag Clinic 2.9 0.9-1.1 METER #: [id number] INTERNATIONAL NORMALIZED RATIO (INR) REFERENCE RANGES Reference [...] Prothrombin Time Whole Bld P OC Reviewed date:08/13/2025 12:27:06 PM Interpretation: Performing Lab:[facility], [address] [place] [phone] Notes/Report: Prothrombin Time Whole Bld POC 34.6 11.1-13.5 sec Reason For Referral Reason please verito nguyen for for care home and any other services he made need Diagnosis 1 Atrial fibrillation, unspecified type (I48.91) Diagnosis 2 COPD without exacerb ation (J44.9) Diagnosis 3 Bilateral leg weakne ss (R29.898) Referral Organization Jake Pepper MD Referring Provider First Name Jake Referring Provider Last Name Evgeny Referring Provider Speciality Internal M edicine Referred Provider [facility] Referred Provider Specialty Unknown General Notes Minerva Duff 0 04/12/2025 11:55:29 AM > referral info faxed, Minerva Duff 04/12/2025 01:22:33 PM >this referral will not be used due to they do not take his insurance. Spoke with [facility] Montiel, she will be [...] hrs for 30 days 01/26/2013 Not-Taking Nystatin 466996 UNIT/GM 1 application Externally Twice a day [...] Orally On ce a day Not-Taking Nystatin 616062 UNIT/GM 1 application Externally Twice a day for 10 days 03/19/2025 Active Zolpidem Tartrate 5 MG TAKE 1 TABLET BY MOUTH DAILY AT BEDTIME Orally Once a day for 30 days 06/10/2025 Active Doxycycline Monohydrate 100 MG 1 capsule Orally Once a day Not-Taking Nystatin-Triamcinolone 540530-3.1 UNIT/GM 1 application Externally Twice a day [...] Quadrivalent Unknown 08/05/2018 Administered At [facility] Influenza High Dose IM Intramuscular 08/03/2019 [...] Problem Status W/U Status Risk Notes Problem 50384376 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 Problem Insomnia (081784580) Insomnia (G47.00) Active confirmed Problem 0128640 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) Active confirmed Problem Cataract (712760033) Unspecified cataract (H26.9) Active confirmed Problem Conductive hearing loss, bilateral (408996745) Conductive hearing loss, 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) Active confirmed Problem 0659557 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) Active confirmed Problem 75353831 Essential hypert ension (I10) Active confirmed Problem 897668819 Prostate cancer (C61) Active confirme d Problem 4184936 Psoriasis (L40.9) Active confirmed Problem 303656068 Lung nodule (R91.1) Active confirmed Problem Low testosterone (455077430) Low testosterone (E29.1) Active confirmed Problem 6681903739837577 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 Problem 249013443 Lung nodules (R91.8) Active confirmed Problem 721088246 Cervical disc di sease (M50.90) Active confirmed Problem 153189712 Tension headache (G44.209) Active confirmed Problem 8136721 Former smoker (Z87.891) Active confirmed Problem Acute exacerbation of chronic obstructive airways disease (152983461) COPD exacerbation (J44.1) Active confirmed Problem Postherpetic neuralgia (2623849) Post herpetic neuralgia (B02.29) Active confirmed Problem 02591856 Dysthymia (F34.1) Active confirmed Problem Iron deficiency anemia (98077664) Iron deficiency anemia, unspecified iron deficiency anemia type (D50.9) Active confirmed Problem 73942855 Atrial fibrillat ion, unspecified type (I48.91) Active confirmed Problem 0434990 Urinary obstruct ion (N13.9) Active confirmed Problem Leukocytosis (040529578) Elevated WBC count (D72.829) Active confirmed Problem 78944249 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 confirmed Problem 413787478 Pure hypercholesterolemia (E78.00) Active confirmed Problem 249039813 BMI 30.0-30.9,ad ult (Z68.30) Active confirmed Problem 007543643 COPD with exacer bation (J44.1) Active confirmed Problem 968425227 Hypertensive cri sis (I16.9) Active confirmed Problem Gout (05711979) Acute gout, unspecified cause, unspecified site (M10.9) Active confirmed Problem 98944235 COPD without exacerbation (J44.9) Active confirmed Problem Gout (94214762) Acute gout of ri ght knee, unspecified cause (M10.9) Active confirmed Problem 455648088 Mixed conductive and sensorineural hearing loss of [...] Jake Pepper MD [address] [place] [address] [id number] 08/20/2024 Jake Pepper Pure hypercholestero lemia E78.00 Jake Pepper MD [address] [place] [address] [id number] 02/19/2025 Jake Pepper Blood tests for rout ine general physical examination Z00.00 ; Essential hypertension I10 ; Pure hypercholesterolemia E78.00 and Iron deficiency anemia, unspecified iron deficiency anemia type D50.9 Jake Pepper MD [address] [place] [address] [id number] 08/27/2024 Jake Pepper Essential hypertensi on I10 ; Pure hypercholesterolemia E78.00 ; Atrial fibrillation, unspecified type I48.91 and COPD without exacerbation J44.9 Jake Pepper MD [address] [place] [address] [id number] 01/22/2025 Jake Pepper Panlobular emphysema J43.1 ; Atrial fibrillation, unspecified type I48.91 and Unspecified cataract H26.9 Jake Pepper MD [address] [place] [address] [id number] 02/26/2025 Jake Pepper Essential hypertensi on I10 ; Annual physical exam Z00.00 ; Panlobular emphysema J43.1 ; Pure hypercholesterolemia E78.00 ; Dysthymia F34.1 ; Iron deficiency anemia, unspecified iron deficiency anemia type D50.9 and Depression screening Z13.31 Jake Pepper MD [address] [place] [address] [id number] 03/18/2025 Jake Pepper Thrush B37.0 Jake Pepper MD [address] [place] [address] [id number] 03/29/2025 Jake Pepper Essential hypertensi on I10 ; Panlobular emphysema J43.1 ; Shingles B02.9 and Thrush B37.0 Jake Pepper MD [address] [place] [address] [id number] 04/05/2025 Jake Pepper Post herpetic neural dung B02.29 ; Skin tear of right forearm without complication, initial encounter S51.801A ; Essential hypertension I10 and Atrial fibrillation, unspecified type I48.91 Jake Pepper MD [address] [place] [address] [id number] 04/20/2025 Jake Pepper Post herpetic neural dung B02.29 ; Skin tear of right forearm without complication, initial encounter S51.801A and Atrial fibrillation, unspecified type I48.91 Jake Pepper MD [address] [place] [address] [id number] 12/21/2024 Jake Pepper MD [address] [place] [address] [id number] 02/19/2025 Jake Pepper MD [address] [place] [address] [id number] 03/19/2025 Jake Pepper MD [address] [place] [address] [id number] 03/26/2025 Jaek Pepper MD [address] [place] [address] [id number] 04/01/2025 Jake Pepper MD [address] [place] [address] [id number] 04/13/2025 Jake Pepper MD [address] [place] [address] [id number] 05/07/2025 Jake Pepper MD [address] [place] [address] [id number] 05/11/2025 Jake Pepper MD [address] [place] [address] [id number] 09/02/2024 Jake Pepper Insomnia G47.00 Jake Pepper MD [address] [place] [address] [id number] 10/05/2024 Jake Pepper Insomnia G47.00 Jake Pepper MD [address] [place] [address] [id number] 11/08/2024 Jake Pepper Insomnia G47.00 Jake Pepper MD [address] [place] [address] [id number] 12/07/2024 Jake Pepper Insomnia G47.00 Jake Pepper MD [address] [place] [address] [id number] 01/06/2025 Jake Pepper Insomnia G47.00 Jake Pepper MD [address] [place] [address] [id number] 02/05/2025 Jake Pepper Insomnia G47.00 Jake Pepper MD [address] [place] [address] [id number] 02/10/2025 Jake Pepper MD [address] [place] [address] [id number] 02/12/2025 Jake Pepper MD [address] [place] [address] [id number] 03/08/2025 Jake Pepper Insomnia G47.00 aJke Pepper MD [address] [place] [address] [id number] 06/09/2025 Jake Pepper Insomnia G47.00 Jake Pepper MD [address] [place], [place] [id number] 06/10/2025 Jake Pepper Post herpetic neural dung B02.29 Jake Pepper MD [address] [place] [address] [id number] 08/10/2025 Jake Pepper Post herpetic neural dung [...] Provider Name:Jake Miller ier, 08/26/2025 10:00:00 AM, [address] [place] [address], [address], [phone], Provider Name:Jake Miller ier, 02/24/2026 07:15:00 AM, [address] [place] [address], [address], [phone], Provider Name:Jake Miller ier, 03/03/2026 09:30:00 AM, [address] [place] [address], [place] [address], [place], [place], [id number], Insurance Providers Payer Name Payer Address Payer Phone Subscriber Number Group Number Insured Name Patient Relationship to Insured Coverage Start Date Coverage End Date [employer] [facility] [address] [place] [phone] [id number] Kalyan Nguyen Self - patient is the insured MEDIC[employer] [address] [place] [address] [id number] Ordonez Self - patient is the insured Medical (General) History Medical History History ICD Code 03/2004 - colonoscopy (repea t 10 years); colonoscopy [address] Rajput Smoker unmotivated to quit F17.210 biculatimide and finasteraide for prosta te cancer Surgical History Surgery Date(Month/Year) Repair of Umbilical Hernia w/Mesh (Dr. Darrell guido) 04/2019
--- OUTSIDE RECORDS SUMMARY | 2025-08-16 12:28 | XMS_ITS | Encounter Summary ---
Author Organization [facility] Address [address] [facility] [place] [address] Care Team Providers Care Assembling Inspector Name Role Phone Jake Pepper MD Primary Care Provider Darleen vailable Encounter Details Date Type Department Care Team Description 03/27/2018 Business Doc Medical Records [address] [place] [address] Abstract, Provider Social History Tobacco Use Types [...] on filedocumented in this encounter Care Teams Assembling Inspector Relationship Specialty Start Date End Date Jake Pepper MD PCP - General Internal Medicine 02/24/18 documented as of this encounter
[2025-08-16 14:29] LABS: Alanine Aminotransferase 17 U/L (0-40); Albumin Level 4.1 g/dL (3.5-5.0); Alkaline Phosphatase 89 U/L (39-117); Aspartate Amino Transferase 32 U/L (5-37); Cholesterol 128 mg/dL (<200); HDL Cholesterol 41 mg/dL (>40); Total Protein 7.2 g/dL (6.5-8.0); Triglycerides 88 mg/dL (<150)
[2025-08-16 15:06] LABS: Reflex LDLD? No
== END 2025-08-16 10:36 | disposition home or self-care (01) ==
LOC: HO.HMGCLDS 10:35
PROVIDERS: PCP Internal Medicine; Visit Provider Internal Medicine
DX: E78.00 Pure hypercholesterolemia, unspecified (principal)
CPT/HCPCS: 36415; 80061; 80076

== ENCOUNTER 2025-09-10 09:23 | Outpatient (AMB) | payer MEDICARE, SELFPAY ==
--- NOTE | 2025-09-10 09:33 | MHC.OFFVISCO ---
Intake Intake Visit Reasons: Anticoagulation Allergies pneumococcal vaccine (PNEUMOCOCCAL VACCINE) Allergy (Intermediate, Verified 08/13/25 09:42) RASH amoxicillin (From Augmentin) Allergy (Unknown, Verified 08/13/25 09:42) Swelling clavulanic acid (From Augmentin) Allergy (Unknown, Verified 08/13/25 09:42) Swelling theophylline Adverse Reaction (Intermediate, Verified 08/13/25 09:42) Loss of Appetite Medication List - Last Reconciled 09/10/25 by Gertrudis Simeon RN albuterol sulfate 90 mcg/actuation 2 puffs PO Q2H PRN atorvastatin 40 mg PO DAILY carvedilol 6.25 mg PO BID cyanocobalamin (vitamin B-12) 1,000 mcg PO DAILY furosemide 60 mg (1.5 x 40 mg) PO DAILY gabapentin mg PO DAILY ipratropium-albuterol 0.5 mg-3 mg(2.5 mg base)/3 mL 3 mL inhalation TID multivitamin (One Daily Multivitamin tablet) 1 tab PO DAILY nystatin 1 appl topical BID tamsulosin 0.4 mg PO BID 90 days warfarin See Protocol 6mg X 5DAYS, 3MG X 2 DAYS orally, Take medication 1-2 tabs as directed per anticoagulation clinic based on your INR Nursing Note INR: 3.1 in therapeutic range Medications and supplements reviewed No changes in health, diet, medications, or supplements, Denies any signs and symptoms of bleeding or bruising or clotting. Bleeding, bruising, clotting discussed Nutritional guidance given - COOKED GREENS Dose: KEEP SAME DOSE 9MG X 2 DAYS /6MG X 5 DAYS F/U INR: 1MONTH ]Patient verbalizes understanding of instructions given Anti-Coag Initial Assessment Social Hx Patient Tobacco Use Status: Former Tobacco user alcohol intake: never Alcohol intake frequency: 0-2 drinks per day Cardiovascular Hx: HTN, UT and Arrhythmias Lung Disease HX: COPD Musculoskeletal Hx: Gout Blood Disorder Hx: Hyperlipidemia GI Hx: Hemorrhoids Hx: Kidney Disease and Prostate Cancer HX: Yes Psych. Illness/Depression: No Coding Level of Care Code Est Patient Level 1 Diagnoses Current use of anticoagulant therapy Z79.01 Results AMB INR Fingerstick AMB INR Fingerstick 3.1 Last Edit by Gertrudis Simeon RN on 09/10/25 09:31 manual Assessment & Plan Assessment & Plan (1) Current use of anticoagulant therapy: Code(s): Z79.01 - intermediate (current) use of anticoagulants Category: Medical
[2025-09-10 12:07] LABS: Prothrombin Time Whole Bld POC 37.1 sec (11.1-13.5); ~PT, ~INR - Anti Coag Clinic 3.1 (0.9-1.1)
== END 2025-09-10 09:39 | disposition home or self-care (01) ==
LOC: HO.ACS 09:23
PROVIDERS: PCP Internal Medicine; Visit Provider Internal Medicine Medical Oncology
DX: Z79.01 Long term (current) use of anticoagulants (principal)

== ENCOUNTER → 2025-09-10 09:23 | Outpatient (BNVA) | payer MEDICARE, SELFPAY | PROVIDERS: PCP Internal Medicine; Visit Provider Internal Medicine Medical Oncology | DX: I48.0 Paroxysmal atrial fibrillation (principal); Z79.01 Long term (current) use of anticoagulants; Z51.81 Encounter for therapeutic drug level monitoring | CPT/HCPCS: 85610; 99211 ==